=== PATIENT | female | born 1990 | race Caucasian/White ===

== ENCOUNTER 2022-10-10 21:25 | Emergency (ER) | payer BC, OTHER, SELFPAY ==
[2022-10-10 21:33] VITALS: BP 102/64; PULSE 70; RESP 16; TEMP 36.8; O2SAT 98; BMI 24.6
[2022-10-10 22:13] LABS: Bilirubin Urine NEGATIVE (NEGATIVE); Blood Urine NEGATIVE (NEGATIVE); Clarity Urine CLEAR (CLEAR); Color Urine YELLOW (YELLOW); Glucose Urine UA NEGATIVE (NEGATIVE); Ketones Urine NEGATIVE (NEGATIVE); Leukocyte Esterase Urine TRACE (NEGATIVE); Nitrite Urine POSITIVE (NEGATIVE); Protein Urine TRACE mg/dL (NEG/TRACE); Specific Gravity Urine 1.025 (1.005-1.025); pH Urine 6.5 (5.0-9.0)
[2022-10-10 22:19] LABS: Internal Control Within Normal Limits; Strep A Antigen Screen Negative
[2022-10-10 22:20] LABS: Urine Microscopic Indicated YES
[2022-10-10 22:24] LABS: Bacteria Urine SMALL #/HPF (NONE SEEN); Cast Seen? NONE SEEN #/LPF (NONE SEEN); Crystals Seen? None Seen #/HPF (None Seen); Mucus Urine TRACE (NONE SEEN); Squamous Epithelial Cell Urine FEW #/LPF (NONE/RARE); Urine Culture Indicated YES
--- NOTE | 2022-10-10 22:40 | ED_ITS ---
HPI - Female Genitourinary General Chief complaint: Urogenital-Female Stated complaint: MOUTH SORES, UTI Time Seen by Provider: 10/10/22 21:51 Source: patient Mode of arrival: walk-in History of Present Illness HPI Narrative: the patient presented with two main issues that she have this rash in her mouth mostly of the tongue and the back of the mouth is pink good turgor is not associated with any nausea vomiting but she was treated prior with a local numbing medication that did not help the rash go away The patient denies any fever chills or any other concerns she also have some frequency of urination for the last one week she had a diagnosis of urinary tract infection ohms couple weeks ago when she was treated with Keflex and she got better The patient denies any risk factors for STD but she would like her urine to be sent for check Review of systems otherwise negative Related Data Previous Rx's Medication Instructions Recorded nystatin 100,000 unit/mL oral 400,000 unit (4 mL) buccal QID 14 10/10/22 suspension days #224 mL sulfamethoxazole 800 1 tab PO BID 5 days #10 tabs 10/10/22 mg-trimethoprim 160 mg tablet (Bactrim DS) Allergies Allergy/AdvReac Type Severity Reaction Status Date / Time No Known Drug Allergies Allergy Verified 10/10/22 21:32 Review of Systems ROS Status of ROS 10 or more systems reviewed and unremarkable except as noted in history and below Exam Narrative Exam Narrative: Nurses notes and vital signs reviewed and patient is not hypoxic. General: Well-appearing and in no apparent distress. Skin: Warm, dry, no pallor noted. No rash. Head: Normocephalic, atraumatic. Neck: Supple, non-tender. Eye: Pupils are equal, round and EOMI. No scleral icterus. Ears, Nose, Mouth, and Throat: TM are clear, no nasal mucosal hypertrophy. Oral mucosa is moist, no posterior oropharynx erythema, uvula is mid-line mouth examination showed that the patient have a sensation of the tongue mildly erythema as well at the rest of the mouth but there is no specific rash Cardiovascular: Regular Rate and Rhythm without murmur, gallop or rub. Respiratory: No accessory muscle use or respiratory distress. Lungs are clear to auscultation, no wheezing, rales or rhonchi Chest Wall: no tenderness Back: No midline thoracic or lumbar vertebral tenderness. No CVA tenderness Musculoskeletal: normal ROM, no calf or popliteal tenderness, no lower extremity edema/swelling GI: Abdomen is soft, non-distended. Normal bowel sounds. No masses appreciated. No tenderness to palpation. No rebound, guarding, or rigidity noted. Neurological: A&O x4. No cranial nerve dysfunction observed. No truncal ataxia. Moves all extremities. Sensation intact. Psychiatric: Cooperative and interactive. Normal mood and affect. Constitutional Vital Signs - 24 hr 10/10/22 21:33 Temperature 98.3 F Pulse Rate [Monitor] 70 Respiratory Rate 16 Blood Pressure [Left Arm] 102/64 Pulse Oximetry 98 Oxygen Delivery Method Room Air Course Vital Signs Vital signs: Vital Signs Temperature 98.3 F 10/10/22 21:33 Pulse Rate 70 10/10/22 21:33 Respiratory Rate 16 10/10/22 21:33 Blood Pressure 102/64 10/10/22 21:33 Pulse Oximetry 98 10/10/22 21:33 Oxygen Delivery Method Room Air 10/10/22 21:33 Temperature 98.3 F 10/10/22 21:33 Pulse Rate 70 10/10/22 21:33 Respiratory Rate 16 10/10/22 21:33 Blood Pressure 102/64 10/10/22 21:33 Pulse Oximetry 98 10/10/22 21:33 Oxygen Delivery Method Room Air 10/10/22 21:33 MDM - Female Genitourinary MDM Narrative Medical decision making narrative: urine was sent for chlamydia and gonorrhea testing and the test is negative the patient urine analysis is positive for urinary tract infection The patient will be treated with Bactrim she also had thrush in her mouth that will be treated with nystatin The patient was instructed about the importance of follow-up with her primary care doctor for further evaluation of the rash and further testing in case keep happening The patient is to followup with primary care physician in next 2-3 days or to return to the emergency department should any of the signs or symptoms worsen or new symptoms develop. The patient agrees with the following Diagnosis and Treatment plan and the patient will be discharged home. Lab Data Labs: Lab Results 10/10/22 10/10/22 10/10/22 Range/Units 21:38 22:00 22:20 Urine Color Yellow (YELLOW) Urine Clarity Clear (CLEAR) Urine pH 6.5 (5.0-9.0) Ur Specific [place] 1.025 (1.005-1.025) Urine Protein Trace (NEG/TRACE) mg/dL Urine Glucose (UA) Negative (NEGATIVE) mg/dL Urine Ketones Negative (NEGATIVE) mg/dL Urine Occult Blood Negative (NEGATIVE) Urine Nitrite Positive A (NEGATIVE) Urine Bilirubin Negative (NEGATIVE) Urine Urobilinogen 2.0 A (0.2-1.0) EU/dL Ur Leukocyte Esterase Trace A (NEGATIVE) Urine RBC 2-5 A (0-2) #/HPF Urine WBC 5-10 A (NONE SEEN) #/HPF Ur Squamous Epith Cells Few A (NONE/RARE) #/LPF Urine Crystals None seen (None Seen) #/HPF Urine Bacteria Small A (NONE SEEN) #/HPF Urine Casts None seen (NONE SEEN) #/LPF Urine Mucus Trace A (NONE SEEN) Ur Culture Indicated? Yes Urine HCG, Qual (NEGATIVE) Streptococcus Screen Negative 10/10/22 Range/Units 22:40 Urine Color (YELLOW) Urine Clarity (CLEAR) Urine pH (5.0-9.0) Ur Specific [place] (1.005-1.025) Urine Protein (NEG/TRACE) mg/dL Urine Glucose (UA) (NEGATIVE) mg/dL Urine Ketones (NEGATIVE) mg/dL Urine Occult Blood (NEGATIVE) Urine Nitrite (NEGATIVE) Urine Bilirubin (NEGATIVE) Urine Urobilinogen (0.2-1.0) EU/dL Ur Leukocyte Esterase (NEGATIVE) Urine RBC (0-2) #/HPF Urine WBC (NONE SEEN) #/HPF Ur Squamous Epith Cells (NONE/RARE) #/LPF Urine Crystals (None Seen) #/HPF Urine Bacteria (NONE SEEN) #/HPF Urine Casts (NONE SEEN) #/LPF Urine Mucus (NONE SEEN) Ur Culture Indicated? Urine HCG, Qual Negative (NEGATIVE) Streptococcus Screen Discharge Plan Discharge Chief Complaint: Urogenital-Female Clinical Impression: UTI (urinary tract infection), Oral thrush Patient Disposition: Home, Self-Care Time of Disposition Decision: 23:02 Mode of Transportation: Private Vehicle Prescriptions / Home Meds: New nystatin 100,000 unit/mL suspension 400,000 unit buccal QID 14 Days Qty: 224 0RF Rx Instructions: administer 1/2 of dose in each side of the mouth sulfamethoxazole-trimethoprim [Bactrim DS] 800-160 mg tablet 1 tab PO BID 5 Days Qty: 10 0RF Instructions: Urinary Tract Infection in Women (ED), Oral Candidiasis (ED) Stand Alone Forms: Portal Instructions Referrals: [facility] [Primary Care Provider] - 1 week
[2022-10-10] MEDS: SULFAMETHOXAZOLE/TRIMETHOPRIM 800-160 MG TABLET 1 TAB PO (23:07)
[2022-10-10 23:14] LABS: HCG Qualitative Urine* NEGATIVE (NEGATIVE)
[2022-10-12 22:08] LABS: Neisseria gonorrhoeae, NAA Negative (Negative)
== END 2022-10-10 23:52 | disposition home or self-care (01) ==
PROVIDERS: Emergency Provider Emergency Medicine
DX: N39.0 Urinary tract infection, site not specified (principal); B37.0 Candidal stomatitis
CPT/HCPCS: 81003; 81015; 84703; 87086; 87150; 87186; 87491; 87591; 87880; 99283

== ENCOUNTER 2022-11-09 22:04 | Emergency (ER) | payer BC, OTHER, SELFPAY ==
[2022-11-09] VITALS (7 sets, daily range): BP systolic 94–96; BP diastolic 51–58; PULSE 64–78; RESP 11–23; TEMP 37.1; O2SAT 97–98; BMI 29.2
--- NOTE | 2022-11-09 22:10 | ECG_ITS ---
The [facility] Test Date: 2022-11-09 Pat Name: SANGEETA MYLES Department: Room: - Gender: Female Social Worker Aide: : 1990 Requested By: [id number] Order Number: [id number] Reading MD: YASMEEN PLASCENCIA Measurements Intervals Waddy Rate: 72 P: 72 [place]: 176 QRS: 60 QRSD: 92 T: 47 QT: 410 QTc: 434 Interpretive Statements 1100 Sinus rhythm 9110 normal ECG No previous ECG available for comparison Electronically Signed On 11-10-2022 7:00:55 EDT by YASMEEN PLASCENCIA
--- NOTE | 2022-11-09 22:18 | PC.NURSE ---
Pt presents to ER from a [facility] in [place] via EMS Pt states she had just returned home from a NA meeting and was talking to a friend, the next thing she remembers is waking up to being narcanned Per squad report pt was given 8mg nasal Narcan Squad stated pt was A&O on arrival walking around, did not show any signs of being under the influence Pt A&O on arrival Pt states she has been getting dizzy on and off frequently over the last week pt states she just obtained her 60 days clean and denies the use of anything Pt tried to refuse treatment by EMS but the [facility] demanded her to come
--- NOTE | 2022-11-09 22:59 | XR_ITS ---
The [address] [address] Patient Name: SANGEETA MYLES MRN: [id number] date: 1990 Sex: F Assigned Patient Location: ER Current Patient Location: ER Accession/Order Number: [id number] Exam Date: 11/09/2022 23:20 Report Date: 11/09/2022 23:36 At the request of: MACHELLE MARKER Procedure: XR wrist RT 2V EXAM: XR wrist RT 2V HISTORY: fall with posterior medial wrist pain. COMPARISON: None. TECHNIQUE: 2 views. FINDINGS: No evidence of fracture or dislocation. No articular or periarticular erosive changes. XR/XR wrist RT 2V IMPRESSION: Unremarkable right wrist. Electronically authenticated by: PB MCKINNON Date: 11/09/2022 23:36
[2022-11-09 23:00] LABS: Amphetamine Screen Urine NEGATIVE (NEGATIVE); Barbiturates Screen Urine NEGATIVE (NEGATIVE); Benzodiazepines Screen Urine NEGATIVE (NEGATIVE); Buprenorphine Screen Urine NEGATIVE (NEGATIVE); Cannabinoid Screen Urine NEGATIVE (NEGATIVE); Cocaine Screen Urine NEGATIVE (NEGATIVE); Methadone Screen Urine NEGATIVE (NEGATIVE); Methamphetamines Screen Urine NEGATIVE (NEGATIVE); Opiate Screen Urine NEGATIVE (NEGATIVE); Oxycodone Screen Urine NEGATIVE (NEGATIVE); Phencyclidine Screen Urine NEGATIVE (NEGATIVE); Tricyclic Antidepressant Urine NEGATIVE (NEGATIVE)
[2022-11-09 23:07] LABS: Bilirubin Urine SMALL (NEGATIVE); Blood Urine NEGATIVE (NEGATIVE); Color Urine DK. YELLOW (YELLOW); Glucose Urine UA NEGATIVE (NEGATIVE); Ketones Urine NEGATIVE (NEGATIVE); Leukocyte Esterase Urine TRACE (NEGATIVE); Nitrite Urine POSITIVE (NEGATIVE); Protein Urine TRACE mg/dL (NEG/TRACE); Specific Gravity Urine >=1.030 (1.005-1.025)
[2022-11-09 23:10] LABS: Clarity Urine SLIGHTLY CLOUDY (CLEAR)
[2022-11-09 23:15] LABS: Bacteria Urine LARGE #/HPF (NONE SEEN); Cast Seen? NONE SEEN #/LPF (NONE SEEN); Crystals Seen? None Seen #/HPF (None Seen); Mucus Urine NONE SEEN (NONE SEEN); RBC Urine 0-2 #/HPF (0-2); Squamous Epithelial Cell Urine FEW #/LPF (NONE/RARE); Urine Culture Indicated YES
[2022-11-09 23:21] LABS: Hematocrit 31.6 % (36.0-48.0); Hemoglobin 10.3 g/dL (12.0-16.0); Immature Granulocytes Abs Auto 0.01 10^3/uL (0.00-0.03); Immature Granulocytes Pct Auto 0.3 % (0.0-0.5); Lymphocytes Absolute Auto 1.2 10^3/uL (1.2-3.8); Lymphocytes Percent Auto 40.4 % (20.5-60.0); Mean Corpuscular HGB Conc 32.6 g/dL (29.9-35.2); Mean Corpuscular Hemoglobin 36.4 pg (26.7-34.0); Mean Platelet Volume 9.3 fL (9.5-13.5); Monocytes Absolute Auto 0.3 10^3/uL (0.3-0.8); Monocytes Percent Auto 9.9 % (1.7-12.0); Neutrophils Absolute Auto 1.5 10^3/uL (1.4-6.5); Neutrophils Percent Auto 49.4 % (43.0-75.0); Platelet Count 171 10^3/uL (150-450); Red Blood Count 2.83 10^6/uL (4.20-5.40); Red Cell Distribution Width 17.2 % (11.0-15.0)
[2022-11-09 23:23] LABS: Mean Corpuscular Volume 111.7 fL (81.0-99.0)
[2022-11-09] MEDS: 0.9 % SODIUM CHLORIDE 1,000 ML 1000 ML IV (23:31)
[2022-11-09 23:35] LABS: Anion Gap 7.2; BUN Creatinine Ratio 17.1; Calcium 9.3 mg/dL (8.5-10.1); Carbon Dioxide 31.7 mmol/L (21.0-32.0); Chloride 107 mmol/L (98-107); Estimated GFR (African America >60 (>=60); Estimated GFR (Non-African Ame >60 (>=60); Glucose 99 mg/dL (74-106); Potassium 3.9 mmol/L (3.5-5.1); Sodium 142 mmol/L (136-145); Troponin I High Sensitivity 14.6 pg/mL (4.0-51.3)
[2022-11-10] LABS: D Dimer 0.29 mg/L FEU (<=0.59)
[2022-11-10] MEDS: ACETAMINOPHEN 325 MG TABLET 650 MG PO
--- NOTE | 2022-11-10 00:25 | ED_ITS ---
HPI - Syncope General Chief Complaint: Syncope Stated Complaint: OVERDOSE Time Seen by Provider: 11/09/22 22:14 Source: patient Mode of arrival: ambulance History of Present Illness HPI narrative: This 32-year-old female with a history of neurocardiogenic syncope Brought to the emergency department from the [facility] where she is currently in rehab. The patient states that she had a syncopal event today. She went to an NA meeting earlier in the evening. She states that after the NA meeting she wanted ice cream and had a Blizzard. She then went back to the facility where she is in rehab and was talking to her roommate About pizza and laundry when she apparently passed out. She states that she remembers passing out but could not speak. The human resources project manager was called to the area and she was given 8 mg of intranasal Narcan. EMS was called to bring her to the hospital but she initially refused to come to the hospital. She was then told if she was not evaluated that she would be kicked out of the facility. She states she has been clean for 61 days at this point. She requests that a urine tox be done so that she can prove that she is not currently using any drugs. She denies any chest pain or shortness of breath. She has no focal neurologic deficits. She states she thinks that she fell onto her right wrist because she does have some discomfort at her right wrist. She denies any nausea or vomiting. She states that she has been having episodes of dizziness and lightheadedness for the past several days and has been urinating frequently. She denies the possibility of . She has no headache, neck pain or abdominal pain. She did not soil herself when she fell. She did not bite her tongue. She has no history of seizures. Related Data Home Medications Medication Instructions Recorded Confirmed bupropion HCl 300 mg 24 hr tablet, 300 mg PO DAILY 11/09/22 11/09/22 extended release ibuprofen 800 mg tablet mg 11/09/22 trazodone 100 mg tablet mg 11/09/22 Previous Rx's Medication Instructions Recorded nystatin 100,000 unit/mL oral 400,000 unit (4 mL) buccal QID 14 10/10/22 suspension days #224 mL sulfamethoxazole 800 1 tab PO BID 5 days #10 tabs 10/10/22 mg-trimethoprim 160 mg tablet (Bactrim DS) Allergies Allergy/AdvReac Type Severity Reaction Status Date / Time No Known Drug Allergies Allergy Verified 10/10/22 21:32 Review of Systems ROS Status of ROS 10 or more systems reviewed and unremarkable except as noted in history and below [facility] Social History Smoking status: Current every day smoker Exam Narrative Exam Narrative: Nurses note and vital signs reviewed and patient is not hypoxic. General: The patient appears well and in no apparent distress. Patient is resting comfortably on cart. GCS 15 Skin: Warm, dry, no pallor noted. There is no rash noted. Head: Normocephalic, atraumatic, no scalp tenderness, negative Harley and Raccon sign Eye: Normal conjunctiva, no drainage, EOMI. PERRL, vision grossly intact, pupils are equal and reactive Ears, Nose, Mouth, and Throat: oral mucosa is moist. Nares patent. Mouth without vesicles. Ear canals patent. No oral injury or tongue contusion Cardiovascular: Regular Rate and Rhythm S1S2, no murmur, rubs or gallops, pulses are brisk and equal bilaterally Respiratory: Patient is in no distress, no accessory muscle use, lungs are clear to auscultation, no wheezing, rales or rhonchi Back: non-tender, no CVA tenderness bilaterally to percussion. GI: Normal bowel sounds, no tenderness to palpation, no masses appreciated. No rebound, guarding, or rigidity noted. Musculoskeletal: The patient has no lower extremity tenderness or swelling, she has mild tenderness without bony deformity of the right wrist, no elbow or shoulder tenderness, able to approximate thumb and all fingers Neurological: A&O x4, normal speech Psychiatric: Cooperative Constitutional Vital Signs, click to edit/add: Last Vital Signs Temp 98.7 F 11/09/22 22:07 Pulse 65 11/09/22 22:57 Resp 22 11/09/22 22:57 BP 94/51 L 11/09/22 23:35 Pulse Ox 98 11/09/22 22:25 O2 Del Method Room Air 11/09/22 22:25 Course Vital Signs Vital signs: Vital Signs Temperature 98.7 F 11/09/22 22:07 Pulse Rate 66 11/09/22 22:07 Respiratory Rate 11 L 11/09/22 22:07 Blood Pressure 94/54 L 11/09/22 22:07 Pulse Oximetry 97 11/09/22 22:07 Oxygen Delivery Method Room Air 11/09/22 22:07 Temperature 98.7 F 11/09/22 22:07 Pulse Rate 65 11/09/22 22:57 Respiratory Rate 22 11/09/22 22:57 Blood Pressure 94/51 L 11/09/22 23:35 Pulse Oximetry 98 11/09/22 22:25 Oxygen Delivery Method Room Air 11/09/22 22:25 MDM - Syncope Medical Records Medical records narrative: This 32-year-old female with a history of neurocardiogenic syncope is brought emergency department from the [facility] where she is currently in rehab. 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 Tonight she had a syncopal event after going to a Narcotics Anonymous meeting. She was given 8 mg of Narcan. She denies that she has been using any drugs. She was told that she would either have to be evaluated emergency department or be kicked out of the rehab facility. She agreed to come to be evaluated. Upon arrival she was taken to room 11. GCS is 15. An EKG was a sinus rhythm at 72 beats for minute. An IV was established and she was given IV fluids and ibuprofen. She complains only of some discomfort in her right wrist where she thinks she fell onto her right wrist. X-ray of the right wrist is negative for fracture. Routine labs are reviewed. She has a low white count at 3 and a low hemoglobin at 10.3. This is likely chronic in nature. She has normal electrolytes. She has a negative d- dimer and normal troponin. Urine is positive for nitrites, white blood cells and bacteria. Urine tox was negative for any positive drug use. The results of her labs were discussed with her. She has called for a ride home. Initially I intended to give her an IV dose of Rocephin and then treat her with Keflex but she has a ride coming and wishes to be discharged home at this time. She was recently on Bactrim for urinary tract infection and does not appear to have been that effective. She will be given a dose of Cipro in the emergency department and discharged home with a prescription for Cipro and ibuprofen to use for the next week. She was encouraged to drink plenty of fluids and given a copy of her labs prove that her urine toxicology was negative. I did place a 4 inch J Carlos wrap onto her right distal forearm and wrist for comfort for the right wrist injury she sustained when she had her syncopal event. Lab Data Lab results narrative: Pt has a low white blood cell count at 3.0. Hemoglobin is mildly low at 10.3. The remainder of her electrolytes are normal. Troponin and d-dimer are normal. Urine is positive for infection with positive nitrites, bacteria leukocyte esterase and white blood cells. Utox is negative Labs: Lab Results 11/09/22 11/09/22 Range/Units 20:25 23:09 WBC 3.0 L (4.0-11.0) 10^3/uL RBC 2.83 L (4.20-5.40) 10^6/uL Hgb 10.3 L (12.0-16.0) g/dL Hct 31.6 L (36.0-48.0) % MCV 111.7 H (81.0-99.0) fL MCH 36.4 H (26.7-34.0) pg MCHC 32.6 (29.9-35.2) g/dL RDW 17.2 H (11.0-15.0) % Plt Count 171 (150-450) 10^3/uL MPV 9.3 L (9.5-13.5) fL Neut % (Auto) 49.4 (43.0-75.0) % Lymph % (Auto) 40.4 (20.5-60.0) % [place] % (Auto) 9.9 (1.7-12.0) % Eos % (Auto) 0.0 L (0.9-7.0) % Baso % (Auto) 0.0 L (0.2-2.0) % Neut # (Auto) 1.5 (1.4-6.5) 10^3/uL Lymph # (Auto) 1.2 (1.2-3.8) 10^3/uL [place] # (Auto) 0.3 (0.3-0.8) 10^3/uL Eos # (Auto) 0.0 (0.0-0.7) 10^3/uL Baso # (Auto) 0.0 (0.0-0.1) 10^3/uL Abs Immat Gran (auto) 0.01 (0.00-0.03) 10^3/uL Imm/Tot Granulo (auto) 0.3 (0.0-0.5) % D-Dimer 0.29 (<=0.59) mg/L FEU Sodium 142 (136-145) mmol/L Potassium 3.9 (3.5-5.1) mmol/L Chloride 107 (98-107) mmol/L Carbon Dioxide 31.7 (21.0-32.0) mmol/L Anion Gap 7.2 BUN 13.0 (7.0-18.0) mg/dL Creatinine 0.76 (0.55-1.02) mg/dL Est GFR ( Amer) >60 (>=60) Est GFR (Non-Af Amer) >60 (>=60) BUN/Creatinine Ratio 17.1 Glucose 99 (74-106) mg/dL Calcium 9.3 (8.5-10.1) mg/dL Troponin I High Sens 14.6 (4.0-51.3) pg/mL Urine Color Dk. yellow (YELLOW) Urine Clarity Slightly cloudy A (CLEAR) Urine pH 6.0 (5.0-9.0) Ur Specific [place] >=1.030 A (1.005-1.025) Urine Protein Trace (NEG/TRACE) mg/dL Urine Glucose (UA) Negative (NEGATIVE) mg/dL Urine Ketones Negative (NEGATIVE) mg/dL Urine Occult Blood Negative (NEGATIVE) Urine Nitrite Positive A (NEGATIVE) Urine Bilirubin Small A (NEGATIVE) Urine Urobilinogen 4.0 A (0.2-1.0) EU/dL Ur Leukocyte Esterase Trace A (NEGATIVE) Urine RBC 0-2 (0-2) #/HPF Urine WBC 10-20 A (NONE SEEN) #/HPF Ur Squamous Epith Cells Few A (NONE/RARE) #/LPF Urine Crystals None seen (None Seen) #/HPF Urine Bacteria Large A (NONE SEEN) #/HPF Urine Casts None seen (NONE SEEN) #/LPF Urine Mucus None seen (NONE SEEN) Ur Culture Indicated? Yes Urine Opiates Screen Negative (NEGATIVE) Ur Buprenorphine Scrn Negative (NEGATIVE) Ur Oxycodone Screen Negative (NEGATIVE) Urine Methadone Screen Negative (NEGATIVE) Ur Propoxyphene Screen Negative (NEGATIVE) Ur Barbiturates Screen Negative (NEGATIVE) U Tricyclic Antidepress Negative (NEGATIVE) Ur Phencyclidine Scrn Negative (NEGATIVE) Ur Amphetamines Screen Negative (NEGATIVE) U Methamphetamines Scrn Negative (NEGATIVE) U Benzodiazepines Scrn Negative (NEGATIVE) Urine Cocaine Screen Negative (NEGATIVE) U Cannabinoids Screen Negative (NEGATIVE) ECG Data Attestation: I personally reviewed and interpreted this ECG as follows: (Normal sinus rhythm at 72 beats for minute, normal axis, normal intervals, no acute ST segment elevation or T-wave inversion) Discharge Plan Discharge Chief Complaint: Syncope Clinical Impression: UTI (urinary tract infection), Syncope, Sprain of right wrist Patient Disposition: Home, Self-Care Time of Disposition Decision: 00:27 Condition: Good Prescriptions / Home Meds: No Action nystatin 100,000 unit/mL suspension 400,000 unit buccal QID 14 Days Qty: 224 0RF Rx Instructions: administer 1/2 of dose in each side of the mouth sulfamethoxazole-trimethoprim [Bactrim DS] 800-160 mg tablet 1 tab PO BID 5 Days Qty: 10 0RF bupropion HCl 300 mg tablet extended release 24 hr 300 mg PO DAILY ibuprofen 800 mg tablet trazodone 100 mg tablet Instructions: Urinary Tract Infection in Women (ED), Syncope (ED), Wrist Sprain (ED) Stand Alone Forms: Portal Instructions Referrals: Physician,Non-Staff, MD [Primary Care Provider] - 1 week Discharge Date/Time: 11/10/22 00:49
== END 2022-11-10 00:49 | disposition home or self-care (01) ==
PROVIDERS: Emergency Provider Emergency Medicine
DX: N39.0 Urinary tract infection, site not specified (principal); R55 Syncope and collapse; S63.501A Unspecified sprain of right wrist, initial encounter; F17.210 Nicotine dependence, cigarettes, uncomplicated; Z87.440 Personal history of urinary (tract) infections; F19.11 Other psychoactive substance abuse, in remission; W19.XXXA Unspecified fall, initial encounter
CPT/HCPCS: 36415; 73100; 80048; 80307; 81001; 84484; 85025; 85378; 87086; 87150; 87186; 93005; 99285

== ENCOUNTER 2023-01-17 12:54 | Emergency (ER) | payer BC, OTHER, SELFPAY ==
[2023-01-17 12:59] VITALS: BP 103/68; PULSE 84; RESP 18; TEMP 36.9; O2SAT 99; BMI 30.5
--- NOTE | 2023-01-17 13:03 | XR_ITS ---
The [address] [address] Patient Name: SANGEETA MYLES MRN: [id number] date: 1990 Sex: F Assigned Patient Location: ER Current Patient Location: ER Accession/Order Number: [id number] Exam Date: 01/17/2023 13:13 Report Date: 01/17/2023 13:33 At the request of: PAUL PLASENCIA Procedure: XR foot LT min 3V STUDY: XR foot LT min 3V, [id number] HISTORY: injury COMPARISON: None FINDINGS: Transverse oriented fracture of the proximal base of the left fifth metatarsal which demonstrates approximately 1 mm of distraction. Fracture location is most compatible with an avulsion type fracture. No other acute fracture. No dislocation or suspicious osseous lesion. A small accessory navicular is present. XR/XR foot LT min 3V IMPRESSION: Minimally distracted avulsion-type fracture of the fifth metatarsal base. Electronically authenticated by: DMITRY WRIGHT Date: 01/17/2023 13:33
--- NOTE | 2023-01-17 14:12 | ED.LOWEXI1 ---
HPI - Extremity Injury (Lower) General Chief Complaint: Extremity Injury, Lower Stated Complaint: INJURED L FOOT Time Seen by Provider: 01/17/23 14:03 Source: patient Mode of arrival: Wheelchair History of Present Illness HPI Narrative: patient is a 33-year-old female who presents to the emergency department for the evaluation of injury to the left foot. She states she tripped when she missed a stair and her home and twisted the left foot. She reports pain over the left 5th metatarsal. She had no other associated injuries. No medications taken prior to arrival. She is not concerned for . Related Data Home Medications Medication Instructions Recorded Confirmed bupropion HCl 300 mg 24 hr tablet, 300 mg PO DAILY 11/09/22 11/09/22 extended release ibuprofen 800 mg tablet mg 11/09/22 trazodone 100 mg tablet mg 11/09/22 Previous Rx's Medication Instructions Recorded nystatin 100,000 unit/mL oral 400,000 unit (4 mL) buccal QID 14 10/10/22 suspension days #224 mL sulfamethoxazole 800 1 tab PO BID 5 days #10 tabs 10/10/22 mg-trimethoprim 160 mg tablet (Bactrim DS) ketorolac 10 mg tablet 10 mg PO TID PRN pain #12 tabs 01/17/23 Allergies Allergy/AdvReac Type Severity Reaction Status Date / Time No Known Drug Allergies Allergy Verified 10/10/22 21:32 Review of Systems ROS Constitutional Denies: fever or chills Ears, nose, mouth, and throat Denies: throat pain or neck pain Cardiovascular Denies: chest pain Respiratory Denies: shortness of breath or cough Gastrointestinal Denies: nausea or vomiting Musculoskeletal Reports: extremity pain; Denies: back pain or neck pain Integumentary/Breast Denies: rash Neurological Denies: headache Hematologic/Lymphatic Denies: easy bruising Allergic/Immunologic Denies: hives PFSH [facility] Social History Smoking status: Current every day smoker Exam Narrative Exam Narrative: Gen.: Awake, alert, in no distress Head: Normocephalic, atraumatic ENT: Moist mucous membranes Respiratory: No respiratory distress Extremities: Moves extremities equally, tenderness and mild edema noted over the base of the left 5th metatarsal. Normal flexion and extension of the toes of the left foot, 2+ left DP pulse. No bony tenderness of the left ankle or tibia. Psych: Normal mood and affect Neuro: No focal neuro deficit Skin: Warm, dry, intact Constitutional Vital Signs, click to edit/add: Last Vital Signs Temp 98.4 F 01/17/23 12:59 Pulse 84 01/17/23 12:59 Resp 18 01/17/23 12:59 BP 103/68 01/17/23 12:59 Pulse Ox 99 01/17/23 12:59 Course Vital Signs Vital signs: Vital Signs Temperature 98.4 F 01/17/23 12:59 Pulse Rate 84 01/17/23 12:59 Respiratory Rate 18 01/17/23 12:59 Blood Pressure 103/68 01/17/23 12:59 Pulse Oximetry 99 01/17/23 12:59 Temperature 98.4 F 01/17/23 12:59 Pulse Rate 84 01/17/23 12:59 Respiratory Rate 18 01/17/23 12:59 Blood Pressure 103/68 01/17/23 12:59 Pulse Oximetry 99 01/17/23 12:59 MDM - Extremity Injury (Lower) MDM Narrative Medical decision making narrative: x-rays reviewed by the radiologist with avulsion of the left 5th metatarsal. Patient placed in J Carlos wrap and postop shoe and remains neurovascularly intact. Crutches given for comfort. Patient requests not to be placed on narcotics as she has a history of narcotic addiction and she is given Toradol with podiatry follow-up. Return to the Emergency Room if symptoms change or worsen. work note provided, rest, ice, elevate. Medical Records Attestation: I reviewed the patient's medical records. Lab Data Attestation: I reviewed the patient's lab results. Imaging Data XR foot: Attestation: I have reviewed the pertinent imaging results. Radiologist's impression: Procedure: XR foot LT min 3V STUDY: XR foot LT min 3V, [id number] HISTORY: injury COMPARISON: None FINDINGS: Transverse oriented fracture of the proximal base of the left fifth metatarsal which demonstrates approximately 1 mm of distraction. Fracture location is most compatible with an avulsion type fracture. No other acute fracture. No dislocation or suspicious osseous lesion. A small accessory navicular is present. IMPRESSION: Minimally distracted avulsion-type fracture of the fifth metatarsal base. Electronically authenticated by: DMITRY WRIGHT Date: 01/17/2023 13:33 Discharge Plan Discharge Chief Complaint: Extremity Injury, Lower Clinical Impression: Closed fracture of fifth metatarsal bone of left foot Patient Disposition: Home, Self-Care Time of Disposition Decision: 14:09 Condition: Good Prescriptions / Home Meds: New ketorolac 10 mg tablet 10 mg PO TID PRN (Reason: pain) Qty: 12 0RF No Action nystatin 100,000 unit/mL suspension 400,000 unit buccal QID 14 Days Qty: 224 0RF Rx Instructions: administer 1/2 of dose in each side of the mouth sulfamethoxazole-trimethoprim [Bactrim DS] 800-160 mg tablet 1 tab PO BID 5 Days Qty: 10 0RF bupropion HCl 300 mg tablet extended release 24 hr 300 mg PO DAILY ibuprofen 800 mg tablet trazodone 100 mg tablet Instructions: Foot Fracture in Adults (ED) Stand Alone Forms: Portal Instructions Referrals: Physician,Non-Staff, MD [Primary Care Provider] - 1 week Pasha Gee DPM [Physician] - As soon as possible
== END 2023-01-17 14:24 | disposition home or self-care (01) ==
PROVIDERS: Emergency Provider Emergency Medicine
DX: S92.352A Displaced fracture of fifth metatarsal bone, left foot, initial encounter for closed fracture (principal); W18.49XA Other slipping, tripping and stumbling without falling, initial encounter; Z79.899 Other long term (current) drug therapy; F17.210 Nicotine dependence, cigarettes, uncomplicated; F11.21 Opioid dependence, in remission
CPT/HCPCS: 73630; 99283

== ENCOUNTER 2023-01-27 08:25 | Emergency (ER) | payer BC, OTHER, SELFPAY ==
[2023-01-27 08:30] VITALS: BP 118/74; PULSE 81; RESP 16; TEMP 36.9; O2SAT 96; BMI 30.1
--- NOTE | 2023-01-27 08:35 | XR_ITS ---
The [address] [id number] Patient Name: SANGEETA MYLES MRN: [id number] date: 1990 Sex: F Assigned Patient Location: ER Current Patient Location: ED.MAIN Accession/Order Number: [id number] Exam Date: 01/27/2023 08:45 Report Date: 01/27/2023 09:03 At the request of: PAUL PLASENCIA Procedure: XR chest 1V EXAM: Chest x-ray HISTORY: . cough . COMPARISON: None. TECHNIQUE: Single view of the chest FINDINGS: Heart and vascularity are unremarkable. Lungs are free of focal infiltrates. Grossly no acute bony abnormality is appreciated. XR/XR chest 1V IMPRESSION: No acute heart or lung disease identified. Electronically authenticated by: SUZY SCRUGGS Date: 01/27/2023 09:03
--- NOTE | 2023-01-27 08:36 | ED.GENADUL1 ---
HPI - General Adult General Chief complaint: Headache Stated complaint: SPLITTING HEADACHE/CONGESTION/NAUSEA Time Seen by Provider: 01/27/23 08:28 Source: patient and family Mode of arrival: walk-in Limitations: no limitations History of Present Illness HPI narrative: 33-year-old female presents for cough. She's had it for two weeks. Initially it was productive but it isn't any longer. She has an inhaler at home. No fever or hemoptysis. She had fallen a few weeks ago and sustained an abrasion to the palm of her right hand. Related Data Home Medications Medication Instructions Recorded Confirmed bupropion HCl 300 mg 24 hr tablet, 300 mg PO DAILY 11/09/22 11/09/22 extended release ibuprofen 800 mg tablet mg 11/09/22 trazodone 100 mg tablet mg 11/09/22 Previous Rx's Medication Instructions Recorded nystatin 100,000 unit/mL oral 400,000 unit (4 mL) buccal QID 14 10/10/22 suspension days #224 mL sulfamethoxazole 800 1 tab PO BID 5 days #10 tabs 10/10/22 mg-trimethoprim 160 mg tablet (Bactrim DS) ketorolac 10 mg tablet 10 mg PO TID PRN pain #12 tabs 01/17/23 benzonatate 100 mg capsule 100 mg PO TID PRN cough #20 caps 01/27/23 doxycycline hyclate 100 mg capsule 100 mg PO BID 10 days #20 caps 01/27/23 Allergies Allergy/AdvReac Type Severity Reaction Status Date / Time No Known Drug Allergies Allergy Verified 01/27/23 08:35 Review of Systems ROS Narrative A ten point review of systems is negative except as noted above. PFSH PFSH Social History Smoking status: Current every day smoker Exam Narrative Exam Narrative: Nurses note and vital signs reviewed and patient is not hypoxic. General: The patient appears well and in no apparent distress. Patient is resting comfortably on cart. Skin: Warm, dry, no pallor noted. There is no rash noted. Head: Normocephalic, atraumatic Eye: Normal conjunctiva, no drainage Ears, Nose, Mouth, and Throat: oral mucosa is moist. Nares patent. Cardiovascular: Regular Rate and Rhythm Respiratory: Patient is in no distress, no accessory muscle use, lungs are clear to auscultation, no wheezing, rales or rhonchi Back: non-tender GI: nontender Musculoskeletal: healing abrasion to the palm of the right hand proximally with no surrounding erythema. No drainage. Neurological: A&O, normal speech Psychiatric: Cooperative Constitutional Vital Signs, click to edit/add: Last Vital Signs Temp 98.4 F 01/27/23 08:30 Pulse 81 01/27/23 08:30 Resp 16 01/27/23 08:30 BP 118/74 01/27/23 08:30 Pulse Ox 96 01/27/23 08:30 O2 Del Method Room Air 01/27/23 08:30 Course Vital Signs Vital signs: Vital Signs Temperature 98.4 F 01/27/23 08:30 Pulse Rate 81 01/27/23 08:30 Respiratory Rate 16 01/27/23 08:30 Blood Pressure 118/74 01/27/23 08:30 Pulse Oximetry 96 01/27/23 08:30 Oxygen Delivery Method Room Air 01/27/23 08:30 Temperature 98.4 F 01/27/23 08:30 Pulse Rate 81 01/27/23 08:30 Respiratory Rate 16 01/27/23 08:30 Blood Pressure 118/74 01/27/23 08:30 Pulse Oximetry 96 01/27/23 08:30 Oxygen Delivery Method Room Air 01/27/23 08:30 Medical Decision Making MDM Narrative Medical decision making narrative: Covid test and chest x-ray are negative. She is prescribed doxycycline and Tessalon. Treatment diagnosis and follow-up were discussed with the patient. Differential Diagnosis Differential Diagnosis: Covid, pneumonia, upper respiratory infection Lab Data Lab results reviewed: Yes I reviewed the patient's lab results Labs: Lab Results 01/27/23 Range/Units 08:35 SARS-CoV-2 (PCR) Negative (NEGATIVE) Imaging Data Chest x-ray: Radiologist's impression: Procedure: XR chest 1V EXAM: Chest x-ray HISTORY: . cough . COMPARISON: None. TECHNIQUE: Single view of the chest FINDINGS: Heart and vascularity are unremarkable. Lungs are free of focal infiltrates. Grossly no acute bony abnormality is appreciated. IMPRESSION: No acute heart or lung disease identified. Electronically authenticated by: SUZY SCRUGGS Date: 01/27/2023 Discharge Plan Discharge Chief Complaint: Headache Clinical Impression: Acute upper respiratory infection Patient Disposition: Home, Self-Care Time of Disposition Decision: 09:16 Condition: Good Mode of Transportation: Private Vehicle Prescriptions / Home Meds: New doxycycline hyclate 100 mg capsule 100 mg PO BID 10 Days Qty: 20 0RF benzonatate 100 mg capsule 100 mg PO TID PRN (Reason: cough) Qty: 20 0RF No Action nystatin 100,000 unit/mL suspension 400,000 unit buccal QID 14 Days Qty: 224 0RF Rx Instructions: administer 1/2 of dose in each side of the mouth sulfamethoxazole-trimethoprim [Bactrim DS] 800-160 mg tablet 1 tab PO BID 5 Days Qty: 10 0RF bupropion HCl 300 mg tablet extended release 24 hr 300 mg PO DAILY ibuprofen 800 mg tablet trazodone 100 mg tablet ketorolac 10 mg tablet 10 mg PO TID PRN (Reason: pain) Qty: 12 0RF Instructions: Acute Bronchitis (ED) Stand Alone Forms: Portal Instructions Referrals: Physician,Non-Staff, MD [Primary Care Provider] - 1 week
[2023-01-27 09:09] LABS: SARS-CoV-2 Ag NEGATIVE (NEGATIVE)
[2023-01-27 15:43] LABS: SARS-CoV-2 NAA NOT DETECTED (NOT DETECTE)
== END 2023-01-27 09:25 | disposition home or self-care (01) ==
PROVIDERS: Emergency Provider Emergency Medicine
DX: J06.9 Acute upper respiratory infection, unspecified (principal); Z79.899 Other long term (current) drug therapy; F17.210 Nicotine dependence, cigarettes, uncomplicated; Z20.822 Contact with and (suspected) exposure to COVID-19
CPT/HCPCS: 71045; 87635; 87811; 99284; U0003

== ENCOUNTER 2023-03-26 09:49 | Emergency (ER) | payer BC, OTHER, SELFPAY ==
[2023-03-26 09:53] VITALS: BP 111/56; PULSE 63; RESP 16; TEMP 36.5; O2SAT 99; BMI 26.6
--- NOTE | 2023-03-26 09:56 | XR_ITS ---
The [address] [address] Patient Name: SANGEETA MYLES MRN: [id number] date: 1990 Sex: F Assigned Patient Location: ED.MAIN Current Patient Location: ER Accession/Order Number: [id number] Exam Date: 03/26/2023 10:10 Report Date: 03/26/2023 10:31 At the request of: EDWAR JONES Procedure: XR hand LT min 3V EXAM: XR hand LT min 3V INDICATION: c/o pain, injury to left hand 5th digit. COMPARISON: None. TECHNIQUE: Left hand, 3 views FINDINGS: Nondisplaced transverse fracture through the base of the little finger distal phalanx. The joint spaces are preserved. Unremarkable soft tissues. XR/XR hand LT min 3V IMPRESSION: Nondisplaced fracture of the little finger distal phalanx. Electronically authenticated by: PORTIA GONZÁLES Date: 03/26/2023 10:31
--- NOTE | 2023-03-26 10:00 | ED.UPPEXIN1 ---
HPI - Extremity Injury (Upper) General Chief Complaint: Extremity Injury, Upper Stated Complaint: UPPER EXTREMITY INJURY Time Seen by Provider: 03/26/23 10:00 Source: patient Mode of arrival: walk-in Limitations: no limitations History of Present Illness HPI narrative: patient here for an injury to her left hand. She sustained last night at home with the fall. She is right-handed dominant. She has isolated pain to her left hand, more specifically to her 5th digit. She was seen by the nursing staff and x-rays were ordered. They're on Related Data Home Medications Medication Instructions Recorded Confirmed bupropion HCl 300 mg 24 hr tablet, 300 mg PO DAILY 11/09/22 11/09/22 extended release ibuprofen 800 mg tablet mg 11/09/22 trazodone 100 mg tablet mg 11/09/22 Previous Rx's Medication Instructions Recorded nystatin 100,000 unit/mL oral 400,000 unit (4 mL) buccal QID 14 10/10/22 suspension days #224 mL sulfamethoxazole 800 1 tab PO BID 5 days #10 tabs 10/10/22 mg-trimethoprim 160 mg tablet (Bactrim DS) ketorolac 10 mg tablet 10 mg PO TID PRN pain #12 tabs 01/17/23 benzonatate 100 mg capsule 100 mg PO TID PRN cough #20 caps 01/27/23 doxycycline hyclate 100 mg capsule 100 mg PO BID 10 days #20 caps 01/27/23 Allergies Allergy/AdvReac Type Severity Reaction Status Date / Time No Known Drug Allergies Allergy Verified 01/27/23 08:35 [facility] Social History Smoking status: Former smoker Exam Narrative Exam Narrative: well-hydrated well-nourished female. She does have some bruising on the 5th digit. There is no obvious rotational or deviation from its normal anatomical position. She has actually no discomfort to the forearm the wrist or the dorsum of the hand. X-rays are pending at time of this note. Vascular examination is normal there is no laceration. Constitutional Vital Signs, click to edit/add: Last Vital Signs Temp 97.7 F 03/26/23 09:53 Pulse 63 03/26/23 09:53 Resp 16 03/26/23 09:53 BP 111/56 03/26/23 09:53 Pulse Ox 99 03/26/23 09:53 Course Vital Signs Vital signs: Vital Signs Temperature 97.7 F 03/26/23 09:53 Pulse Rate 63 03/26/23 09:53 Respiratory Rate 16 03/26/23 09:53 Blood Pressure 111/56 03/26/23 09:53 Pulse Oximetry 99 03/26/23 09:53 Temperature 97.7 F 03/26/23 09:53 Pulse Rate 63 03/26/23 09:53 Respiratory Rate 16 03/26/23 09:53 Blood Pressure 111/56 03/26/23 09:53 Pulse Oximetry 99 03/26/23 09:53 MDM - Extremity Injury (Upper) MDM Narrative Medical decision making narrative: x-rays confirm nondisplaced fracture distal phalanx. There is no hematoma underneath her nail. We will apply a splint, advised Tylenol with ibuprofen for pain control and ice. Discharge Plan Discharge Chief Complaint: Extremity Injury, Upper Clinical Impression: Fracture of phalanx of digit of hand Patient Disposition: Home, Self-Care Time of Disposition Decision: 10:51 Prescriptions / Home Meds: No Action nystatin 100,000 unit/mL suspension 400,000 unit buccal QID 14 Days Qty: 224 0RF Rx Instructions: administer 1/2 of dose in each side of the mouth sulfamethoxazole-trimethoprim [Bactrim DS] 800-160 mg tablet 1 tab PO BID 5 Days Qty: 10 0RF bupropion HCl 300 mg tablet extended release 24 hr 300 mg PO DAILY ibuprofen 800 mg tablet trazodone 100 mg tablet ketorolac 10 mg tablet 10 mg PO TID PRN (Reason: pain) Qty: 12 0RF doxycycline hyclate 100 mg capsule 100 mg PO BID 10 Days Qty: 20 0RF benzonatate 100 mg capsule 100 mg PO TID PRN (Reason: cough) Qty: 20 0RF Additional Instructions: alternate Tylenol with ibuprofen/ice/digit splint/follow-up family doctor Stand Alone Forms: Portal Instructions Referrals: Physician,Non-Staff, MD [Primary Care Provider] - 1 week
== END 2023-03-26 11:05 | disposition home or self-care (01) ==
PROVIDERS: Emergency Provider Emergency Medicine Emergency Medical Services
DX: S62.667A Nondisplaced fracture of distal phalanx of left little finger, initial encounter for closed fracture (principal); W19.XXXA Unspecified fall, initial encounter; Z79.899 Other long term (current) drug therapy; Z87.891 Personal history of nicotine dependence
CPT/HCPCS: 29130; 73130; 99283

== ENCOUNTER 2023-05-22 03:14 | Emergency (ER) | payer BC, OTHER, SELFPAY ==
[2023-05-22 03:18] VITALS: BP 129/73; PULSE 68; RESP 16; TEMP 36.3; O2SAT 99; BMI 30.1
--- OUTSIDE RECORDS SUMMARY | 2023-05-22 03:21 | XMS_ITS | CCD ---
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 Name Role Phone None, No PCP Unavailable Unavailable Unavailable Unavailable PAY, DR GARCIA Consulting Unavailable BRISEIDA HANKINS Attending Unavailable MAGEN MOJICA Primary Care Unavailable BRISEIDA HANKINS Admitting Unavailable LEXIE HANKINSYL Consulting Unavailable ANTONINA DURON Consulting Unavailable NONE, XXXX Primary Care Physician Unavailab le Unavailable Primary Care Provider Unavailabl e Unavailable Primary Care Provider Unavailabl e Zev Hamlin Referring Unavailable Boubacar, Zev D Attending Unavailable Boubacar, Zev D Admitting Unavailable JACKIE, DEZ Referring Unavailable JACKIE, DEZ Referring Unavailable JACKIE, DEZ Referring Unavailable JACKIE, DEZ Referring Unavailable JACKIE, DEZ Referring Unavailable ELVIS, P. EDWAR Referring Unavailable ELVIS, P. EDWAR Primary Care Unavailable ELVIS, P. EDWAR Attending Unavailable ELVIS, P. EDWAR Attending Unavailable ELVIS, P. EDWAR Referring Unavailable ELVIS, P. EDWAR Primary Care Unavailable ELVIS, P. EDWAR Attending Unavailable ELVIS, P. EDWAR Primary Care Unavailable SELF, SELF Referring Unavailable SELF, SELF Referring Unavailable ELVIS, P. EDWAR Attending Unavailable ELVIS, P. EDWAR Primary Care Unavailable Medications Current Medications Medication Drug Class(es) Dates Sig (Normalized) Sig (Original) acetaminophen 325 mg / oxyCODONE hydrochloride 5 mg oral tablet (1 source) Opioid Agonist Start: 07-24-2021 End: 07-26-2021 Percocet 325 mg-5 mg Tab 1 tab(s), Oral, q6hr for pain for 2 day(s), 7 tab(s), Refill(s) 0, [facility]/pharmacy #[id number], 161, cm, 02/24/22 13:03:00 EST, Height/Length Dosing, 72, kg, 06/25/21 13:03:00 EST, Weight Dosing Start Date: 07/24/21 Stop Date: 07/26/21 Status: Ordered albuterol 0.83 mg/ml inhalation solution (2 sources) beta2-Adrenergic Agonist Start: 06-25-2021 take 2.5 mg by inhalation every six hours for wheezing albuterol 0.083% Inh Valerie 3 mL 2.5 mg, 3 mL, Inhalation, q6hr for wheezing, 25 EA, Refill(s) 0 Start Date: 06/25/21 Status: Ordered Start: 06-25-2021 take 2.5 mg by inhal ation every six hours for wheezing albuterol 0.083% Inh Valerie 3 mL 2.5 mg, 3 mL, Inhalation, q6hr for wheezing, 25 EA, Refill(s) 0 Start Date: 06/25/21 Status: Ordered clonazePAM 0.5 mg oral tablet (5 sources) Benzodiazepine take 1 tablet by mouth twice daily as needed clonazePAM (KLONOPIN) 0.5 MG tablet Take 0.5 mg by mouth 2 times daily as needed (Patient unsure of exact dosage).. 0 Active nitrofurantoin, macrocrystals 25 mg / nitrofurantoin, monohydrate 75 mg oral capsule (5 sources) Nitrofuran Antibacterial take 1 capsule by mouth twice daily nitrofurantoin, macrocrystal-monohy drate, (MACROBID) 100 MG capsule Take 100 mg by mouth 2 times daily 0 Active Xxokjtst-Ouc-Al-FA ( VITAMINS PO) (5 sources) Ntiijgtj-Aco-Hu-FA ( VITAMINS PO) Take by mouth 0 Active Completed/Discontinued Medications Medication Drug Class(es) Dates Sig (Normalized) Sig (Original) No Reported Medications (2 sources) No Reported Medi cations Quantity: 0 Refills: 0 Ordered: 09-Jul-2021 DO Active Problems Active Problems Problem Classification Problem Date Documented Date Episodic/Chronic Abdominal pain (2 sources) Unspecified abdominal pain; Translations: [Unspecified abdominal pain] Onset: 12-10-2022 Episodic Anxiety disorders (5 sources) Anxiety disorder; Translations: [Anxiety disorder, unspecified] Onset: 07-24-2021 Chronic Contraceptive and procreative management (1 source) Sterilization requested; Translations: [Encounter for sterilization] Onset: 07-24-2021 Episodic E Codes: Natural/environment (1 source) Other and unspecified overexertion or strenuous movements or postures, initial encounter; Translations: [OTH AND UNS OVREXRT/STRN MVMT/POS INT] Onset: 07-08-2021 Episodic Epilepsy; convulsions (5 sources) Seizure disorder; Translations: [Epilepsy, unspecified, not intractable, without status epilepticus] Onset: 08-15-2013 Chronic Genitourinary symptoms and ill-defined conditions (2 sources) Dysuria; Translations: [Dysuria] Onset: 12-10-2022 Episodic Hepatitis (3 sources) Viral hepatitis C; Translations: [Unspecified viral hepatitis C without hepatic coma] Onset: 07-24-2021 Episodic Miscellaneous mental health disorders (2 sources) Primary insomnia; Translations: [Primary insomnia] Onset: 11-04-2022 Chronic Mood disorders (2 sources) Mood disorders; Translations: [Depression, unspecified] Onset: 11-04-2022 Nonspecific chest pain (2 sources) Chest pain; Translations: [Chest pain, unspecified] Episodic Other circulatory disease (2 sources) Low blood pressure 06-25-2021 Episodic Other complications of (2 sources) Twin 02-06-2018 Episodic Other female genital disorders (2 sources) Other specified noninflammatory disorders of vagina; Translations: [Other specified noninflammatory disorders of vagina] Onset: 09-22-2022 Episodic Other lower respiratory disease (2 sources) Dyspnea; Translations: [Other respiratory abnormalities] Episodic Other non-traumatic joint disorders (3 sources) Pain in left shoulder; Translations: [PAIN IN LEFT SHOULDER] Onset: 07-04-2021 Episodic Other nutritional; endocrine; and metabolic disorders (2 sources) Overweight in adulthood with body mass index of 25 or more but less than 30; Translations: [Overweight] Episodic Residual codes; unclassified (1 source) Pelvic organ finding; Translations: [Acquired absence of other genital organ(s)] Onset: 07-24-2021 Episodic Residual codes; unclassified (2 sources) Tobacco user 05-03-2012 Episodic Comment on above: Added secondary to s ocial history documentation. Sprains and strains (1 source) Strain of unspecified muscle, fascia and tendon at shoulder and upper arm level, left arm, initial encounter; Translations: [STRN UNS MSC F TND SHLDR UA LA INIT] Onset: 07-08-2021 Episodic Substance-related disorders (9 sources) Smoker; Translations: [Tobacco use disorder] Onset: 07-24-2021 Chronic Comment on above: <1PPD; Added secondary to d ocumentation in Social History. Syncope (2 sources) Cardiac syncope 07-13-2013 Episodic Unclassified (2 sources) History of clinical finding in subject 06-25-2021 Unclassified (2 sources) Tobacco use during ( Confirmed ) 05-12-2012 Unclassified (1 source) Alcohol use, unspecified, uncomplicated; Translations: [Alcohol use, unspecified, uncomplicated] Onset: 11-04-2022 Past or Other Problems Problem Classification Problem Date Documented Date Episodic/Chronic Deficiency and other anemia (2 sources) Nutritional anemia, unspecified; Translations: [Nutritional anemia, unspecified] Onset: 11-04-2022 Episodic Early or threatened labor (5 sources) Finding of uterine contractions; Translations: [False labor, unspecified] Onset: 03-20-2018 03-20-2018 Episodic Immunizations and screening for infectious disease (2 sources) Other specified abnormal immunological findings in serum; Translations: [Other specified abnormal immunological findings in serum] Onset: 04-19-2022 Episodic Other and delivery including normal (5 sources) Multiple ; Translations: [Multiple gestation, unspecified, unspecified trimester] Onset: 03-06-2018 03-06-2018 Episodic Other screening for suspected conditions (not mental disorders or infectious disease) (4 sources) Electrocardiogram abnormal; Translations: [Nonspecific abnormal electrocardiogram [ECG] [EKG]] Onset: 11-04-2022 Episodic Substance-related disorders (6 sources) Opioid use, unspecified, uncomplicated; Translations: [Other stimulant use, unspecified, uncomplicated] Onset: 09-13-2022 Episodic Unclassified (6 sources) Onset: 04-15-2010 Resolved: 08-30-2018 11-07-2014 Unclassified (1 source) Exposure to 2019 novel coronavirus; Translations: [Contact with and (suspected) exposure to COVID19] Unclassified (1 source) Alcohol use, unspecified, uncomplicated; Translations: [Alcohol use, unspecified, uncomplicated] Onset: 11-04-2022 Results Test Name Value Interpretation Reference Range Facil ity Cult,Urineon 12-11-2022 Cult,Urine Specimen Description .URINE Culture Several types of bacteria were identified in this specimen. Further ID and susceptibility testing is generally not helpful in this circumstance and has not been performed. Consider recollection if clinically indicated. Report Status FINAL 12/11/2022 Normal [facility] Comment on above: Performed By: #### P HEP, HIVCMB #### [address] [address] [employer]port Support Associate: Antonino Nova MD #### BMPCMP, BMP, CBC #### [facility] [address] [place] [address] [place] [address] [employer]port Support Associate: Merlin Charles MD UA w/Reflex Cultureon 2022 Bilirubin, SemiQt,Ur Negative Normal NEG [facility] Comment on above: Performed By: #### P HEP, HIVCMB #### [address] [address] [employer] Support Associate: Antonino Nova MD #### BMPCMP, BMP, CBC #### [address] [place] [address] [employer]port Support Associate: Merlin Charles MD Blood, Urine Negative Normal NEG [facility] Comment on above: Performed By: #### P HEP, HIVCMB #### [address] [address] [employer] Support Associate: Antonino Nova MD #### BMPCMP, BMP, CBC #### [facility] [address] [place] [address] [employer]port Support Associate: Merlin Charles MD Clarity (U) Clear Normal CLEAR [facility] Comment on above: Performed By: #### P HEP, HIVCMB #### [address] [address] [employer]port Support Associate: Antonino Nova MD #### BMPCMP, BMP, CBC #### [address] [place], [place] [phone] [employer]port Support Associate: Merlin Charles MD Color (U) Yellow Normal YEL [facility] Comment on above: Performed By: #### P HEP, HIVCMB #### [address] [address] [employer] Support Associate: Antonino Nova MD #### BMPCMP, BMP, CBC #### [address] [place], [place] [phone] [employer] Support Associate: Merlin Charles MD Glucose Ql (U) Negative Normal NEG [facility] Comment on above: Performed By: #### P HEP, HIVCMB #### [address] [address] [employer]port Support Associate: Antonino Nova MD #### BMPCMP, BMP, CBC #### [address] [place], [place] [phone] [employer] Support Associate: Merlin Charles MD Ketones Ql (U) Negative Normal NEG [facility] Comment on above: Performed By: #### P HEP, HIVCMB #### [address] [address] [employer] Support Associate: Antonino Nova MD #### BMPCMP, BMP, CBC #### [address] [place], [place] [phone] [employer] Support Associate: Merlin Charles MD Leukocyte esterase Test strip Ql (U) LARGE Abnormal NEG [facility] Comment on above: Performed By: #### P HEP, HIVCMB #### [address] [address] [employer] Support Associate: Antonino Nova MD #### BMPCMP, BMP, CBC #### [address] [place] [phone] [employer] Support Associate: Merlin Charles MD Nitrite,Ur Negative Normal NEG [facility] Comment on above: Performed By: #### P HEP, HIVCMB #### [address] [address] [employer] Support Associate: Antonino Nova MD #### BMPCMP, BMP, CBC #### [address] [place] [phone] [employer] Support Associate: Merlin Charles MD PH,Ur 6.0 Normal 5.0-9.0 [facility] Comment on above: Performed By: #### P HEP, HIVCMB #### [address] [address] [employer]port Support Associate: Antonino Nova MD #### BMPCMP, BMP, CBC #### [address] [place] [phone] [employer]port Support Associate: Merlin Charles MD Protein Ql (U) Negative Normal NEG [facility] Comment on above: Performed By: #### P HEP, HIVCMB #### [address] [address] [employer] Support Associate: Antonino Nova MD #### BMPCMP, BMP, CBC #### [address] [place] [phone] [employer] Support Associate: Merlin Charles MD Spec. [place],Ur 1.025 High 1.010-1.020 [facility] Comment on above: Performed By: #### P HEP, HIVCMB #### [address] [address] [employer]port Support Associate: Antonino Nova MD #### BMPCMP, BMP, CBC #### [address] [place], [place] [phone] [employer]port Support Associate: Merlin Charles MD Urobilinogen,Ur Normal Normal 0.0-1.0 [facility] Comment on above: Performed By: #### P HEP, HIVCMB #### [address] [address] [employer]port Support Associate: Antonino Nova MD #### BMPCMP, BMP, CBC #### [facility] [address] [place] [address] [place] [address] [employer]port Support Associate: Merlin Charles MD Urinalysis,Microon 3 Bacteria 3+ Abnormal NONE [facility] Comment on above: Performed By: #### P HEP, HIVCMB #### [address] [phone] [employer] Support Associate: Antonino Nova MD #### BMPCMP, BMP, CBC #### [facility] [address] [place] [address] [place] [phone] [employer] Support Associate: Merlin Charles MD Epithelial cells LM Ql (Urine sed) 0 TO 2 Normal 0-25 [facility] Comment on above: Performed By: #### P HEP, HIVCMB #### [address] [address] [employer]port Support Associate: Antonino Nova MD #### BMPCMP, BMP, CBC #### [facility] [address] [place] [address] [place] [phone] [employer] Support Associate: Merlin Charles MD Urine RBC's 0 TO 2 Normal 0-2 [facility] Comment on above: Performed By: #### P HEP, HIVCMB #### [address] [address] [employer]port Support Associate: Antonino Nova MD #### BMPCMP, BMP, CBC #### [facility] [address] [place] [place] [address] [employer]port Support Associate: Merlin Charles MD Urine WBC's 10 TO 20 Normal 0-5 [facility] Comment on above: Performed By: #### P HEP, HIVCMB #### [facility] [address] [place], [place] [phone] Passport Support Associate: Antonino Nova MD #### BMPCMP, BMP, CBC #### [facility] [address] [place] [address] [place] [address] [employer]port Support Associate: Merlin Charles MD Cult,Urineon 09-24-2022 Cult,Urine Specimen Description .VOIDED URINE Culture ESCHERICHIA COLI >[id number] CFU/ML STREPTOCOCCI, BETA HEMOLYTIC GROUP B >[id number] CFU/ML Report Status FINAL 09/24/2022 SUSCEPTIBILITY Organism ESCHERICHIA COLI Method TESSY Ampicillin <=2 SUSCEPTIBLE Cefazolin <=4 SUSCEPTIBLE Cefazolin sensitivity results can be used to predict the effectiveness of oral cephalosporins (eg. Cephalexin) in uncomplicated Urinary Tract Infections due to E. coli, K. pneumoniae, and P. mirabilis Ceftriaxone <=0.25 SUSCEPTIBLE ESBL NEGATIVE Gentamicin <=1 SUSCEPTIBLE Levofloxacin <=0.12 SUSCEPTIBLE Nitrofurantoin <=16 SUSCEPTIBLE Piperacillin/Tazobacta m <=4 SUSCEPTIBLE Tobramycin <=1 SUSCEPTIBLE Trimethoprim/Sulfa <=20 SUSCEPTIBLE Susceptible [facility] Comment on above: Performed By: #### U RC #### [facility] [address] [place] [address] [employer]port Support Associate: Antonino Nova MD [address] [place] [address] [employer]port Support Associate: Merlin Charles MD Chlamydia/GC,DNA Ampon 09-23 Chlamydia Probe Negative Normal NEG [facility] Comment on above: Result Comment: CHLA MYDIA TRACHOMATIS DNA not detected by nucleic acid amplification. This test is intended for medical purposes only and is not valid for the evaluation of suspected sexual abuse or for other forensic purposes. In certain contexts, culture may be required to meet applicable laws and regulations for diagnosis of C. trachomatis and N. gonorrhoeae infections. Per 2014 CDC recommendations, this test does not include confirmation of positive results by an alternative nucleic acid target. Performed By: #### U MICAO, UA #### [address] [place] [address] [employer]port Support Associate: Merlin Charles MD #### SWCGP #### [address] [phone] [employer]port Support Associate: Antonino Nova MD Gonorrhea Probe Negative Normal NEG [facility] Comment on above: Result Comment: NEIS SERIA GONORRHOEAE DNA not detected by nucleic acid amplification. This test is intended for medical purposes only and is not valid for the evaluation of suspected sexual abuse or for other forensic purposes. In certain contexts, culture may be required to meet applicable laws and regulations for diagnosis of C. trachomatis and N. gonorrhoeae infections. Per 2014 CDC recommendations, this test does not include confirmation of positive results by an alternative nucleic acid target. Performed By: #### Alex LUCIANO UA #### [address] [place] [address] [employer]port Support Associate: Merlin Charles MD #### SWCGP #### [address] [phone] [employer] Support Associate: Antonino Nova MD Trichomonas/Wet Prepon 09-22 Trichomonas/Wet Prep Specimen Descriptio n .VAGINAL SPECIMEN Direct Exam NO YEAST OBSERVED NO TRICHOMONAS SEEN NO CLUE CELLS SEEN Report Status FINAL 09/22/2022 Normal [facility] Comment on above: Performed By: #### P HEP, HIVCMB #### [address] [address] [employer]port Support Associate: Antonino Nova MD #### BMPCMP, BMP, CBC #### [address] [place] [address] [employer]port Support Associate: Merlin Charles MD Urinalysis, Routineon 2022 Bilirubin, SemiQt,Ur Negative Normal NEG [facility] Comment on above: Performed By: #### U ANKITA UA #### [address] [place] [address] [employer] Support Associate: Merlin Charles MD #### SWCGP #### [address] [address] [employer] Support Associate: Antonino Nova MD Blood, Urine Negative Normal NEG [facility] Comment on above: Performed By: #### U MICAO, UA #### [facility] [address] [place], [place] [phone] [employer] Support Associate: Merlin Charles MD #### SWCGP #### [address] [address] [employer] Support Associate: Antonino Nova MD Clarity (U) Cloudy Abnormal CLEAR [facility] Comment on above: Performed By: #### U MICAO, UA #### [facility] [address] [place] [address] [place], [place] [phone] [employer] Support Associate: Merlin Charles MD #### SWCGP #### [address] [address] [employer]port Support Associate: Antonino Nova MD Color (U) Yellow Normal YEL [facility] Comment on above: Performed By: #### U MICAO, UA #### [facility] [address] [place] [address] [place], [place] [phone] [employer] Support Associate: Merlin Charles MD #### SWCGP #### [address] [address] [employer] Support Associate: Antonino Nova MD Glucose Ql (U) Negative Normal NEG [facility] Comment on above: Performed By: #### U MICAO, UA #### [facility] [address] [place] [address] [address], [place] [phone] [employer] Support Associate: Merlin Charles MD #### SWCGP #### [address] [address] [employer]port Support Associate: Antonino Nova MD Ketones Ql (U) Negative Normal NEG [facility] Comment on above: Performed By: #### U MICAO, UA #### [facility] [address] [place] [address] [address], [place] [phone] [employer] Support Associate: Merlin Charles MD #### SWCGP #### [address] [address] [employer] Support Associate: Antonino Nova MD Leukocyte esterase Test strip Ql (U) MODERATE Abnormal NEG [facility] Comment on above: Performed By: #### U MICAO, UA #### [facility] [address] [place] [address] [place] [place], [place] [phone] [employer] Support Associate: Merlin Charles MD #### SWCGP #### [address] [address] [employer]port Support Associate: Antonino Nova MD Nitrite,Ur Positive Abnormal NEG [facility] Comment on above: Performed By: #### U MICAO, UA #### [address] [place], [place] [phone] [employer] Support Associate: Merlin Charles MD #### SWCGP #### [address] [address] [employer] Support Associate: Antonino Nova MD PH,Ur 6.0 Normal 5.0-9.0 [facility] Comment on above: Performed By: #### U MICAO, UA #### [facility] [address] [place] [address] [place], [place] [phone] [employer] Support Associate: Merlin Charles MD #### SWCGP #### [address] [address] [employer] Support Associate: Antonino Nova MD Protein Ql (U) Negative Normal NEG [facility] Comment on above: Performed By: #### U MICAO, UA #### [facility] [address] [place] [address] [place] [phone] ( [employer] Support Associate: Merlin Charles MD #### SWCGP #### [address] [address] [employer] Support Associate: Antonino Nova MD Spec. [place],Ur 1.025 High 1.010-1.020 [facility] Comment on above: Performed By: #### U MICAO, UA #### [facility] [address] [place] [address] [place] [address] [employer]port Support Associate: Meriln Charles MD #### SWCGP #### [place] [address] [employer]port Support Associate: Antonino Nova MD Urobilinogen,Ur Normal Normal NORM [facility] Comment on above: Performed By: #### U MICAO, UA #### [address] [place] [address] [employer] Support Associate: Merlin Charles MD #### SWCGP #### [place] [address] [employer] Support Associate: Antonino Nova MD Urinalysis,Microon 3 Bacteria 3+ Abnormal NONE [facility] Comment on above: Performed By: #### U MICAO, UA #### [address] [place] [address] [employer] Support Associate: Merlin Charles MD #### SWCGP #### [place] [address] [employer] Support Associate: Antonino Nova MD Epithelial cells LM Ql (Urine sed) 0 TO 2 Normal 0-25 [facility] Comment on above: Performed By: #### U MICAO, UA #### [address] [place] [phone] [employer] Support Associate: Merlin Charles MD #### SWCGP #### [address] [address] [employer] Support Associate: Antonino Nova MD Mucus Strands 1+ Abnormal NONE [facility] Comment on above: Performed By: #### U ANKITA, UA #### [facility] [address] [place], [place] [phone] [employer] Support Associate: Merlin Charles MD #### SWCGP #### [address] [address] [employer] Support Associate: Antonino Nova MD Urine RBC's 0 TO 2 Normal 0-2 [facility] Comment on above: Performed By: #### U ANKITA, UA #### [facility] [address] [place] [address] [place] [place], [place] [phone] [employer] Support Associate: Merlin Charles MD #### SWCGP #### [address] [address] [employer] Support Associate: Antonino Nova MD Urine WBC's 10 TO 20 Normal 0-5 [facility] Comment on above: Performed By: #### U ANKITA, UA #### [facility] [address] [place] [address] [place], [place] [phone] [employer] Support Associate: Merlin Charles MD #### SWCGP #### [address] [address] [employer] Support Associate: Antonino Nova MD HCV RNA,Quant,PCRon 09-15-19 23 HCV Quant [id number] IU/mL Normal [facility] Comment on above: Performed By: #### H CVQN #### [address] [address] [employer] Support Associate: Antonino Nova MD [facility] [address] [place] [address] [address] [place], [place] [phone] [employer] Support Associate: Merlin Charles MD HCV RNA,Quant Detected Abnormal NOTDET [facility] Comment on above: Result Comment: INTERPRETIVE INFORMATION: HCV by Quantitative NAAT, Serum or Plasma Normal Range for this assay is Not Detected . The quantitative range of this assay is 15-30,000,000 IU/mL (1.17-7.48 log IU/mL). Lower limit of quantitation(LLoQ) is 15 IU/mL(1.17 log IU/mL). LLoQ values do not apply to diluted specimens. A result of Not Detected does not rule out the presence of inhibitors in the patient specimen or hepatitis C virus RNA concentrations below the level of detection of the test. Care should be taken when interpreting any single viral load determination. This test should not be used for blood donor screening, associated re-entry protocols, or for screening Human Cell, Tissues and Cellular Tissue-Based Products (HCT/P). Performed By: #### H CVQN #### [address] [address] [employer] Support Associate: Antonino Nova MD [address] [place] [phone] [employer] Support Associate: Merlin Charles MD HCV,RNA Log 6.95 Log IU/mL Normal [facility] [facility] Comment on above: Performed By: #### H CVQN #### [address] [address] [employer] Support Associate: Antonino Nova MD [address] [place] [phone] [employer] Support Associate: Merlin Charles MD [facility] 09-13-2022 Erythrocyte distribution width (RBC) [Ratio] 17.7 % High 11.8-14.4 [facility] Comment on above: Performed By: #### P HEP, HIVCMB #### [address] [address] [employer] Support Associate: Antonino Nova MD #### BMPCMP, BMP, CBC #### [address] [place] [address] [employer] Support Associate: Merlin Charles MD Hematocrit (Bld) [Volume fraction] 39.8 % Normal 36.3-47.1 [facility] Comment on above: Performed By: #### P HEP, HIVCMB #### [address] [address] [employer] Support Associate: Antonino Nova MD #### BMPCMP, BMP, CBC #### [address] [place] [phone] [employer] Support Associate: Merlin Charles MD Hemoglobin (Bld) [Mass/Vol] 13.5 g/dL Normal 11.9-15.1 [facility] Comment on above: Performed By: #### P HEP, HIVCMB #### [address] [address] [employer] Support Associate: Antonino Nova MD #### BMPCMP, BMP, CBC #### [address] [place] [phone] [employer] Support Associate: Merlin Charles MD MCH (RBC) [Entitic mass] 35.6 pg High 25.2-33.5 [facility] Comment on above: Performed By: #### P HEP, HIVCMB #### [address] [phone] [employer] Support Associate: Antonino Nova MD #### BMPCMP, BMP, CBC #### [address] [place] [phone] [employer] Support Associate: Merlin Charles MD MCHC (RBC) [Mass/Vol] 33.9 g/dL Normal 28.4-34.8 [facility] Comment on above: Performed By: #### P HEP, HIVCMB #### [address] [phone] [employer] Associate: Antonino Nova MD #### BMPCMP, BMP, CBC #### [address] [place], [place] [phone] [employer] Support Associate: Merlin Charles MD MCV (RBC) [Entitic vol] 105.0 fL High 82.6-102.9 [facility] Comment on above: Performed By: #### P HEP, HIVCMB #### [address] [phone] [employer] Support Associate: Antonino Nova MD #### BMPCMP, BMP, CBC #### [address] [place] [phone] [employer] Support Associate: Merlin Charles MD NRBC Automated 0.0 per 100 WBC Normal 0.0 [facility] Comment on above: Performed By: #### P HEP, HIVCMB #### [address] [phone] [employer] Support Associate: Antonino Nova MD #### BMPCMP, BMP, CBC #### [address] [place] [phone] [employer] Support Associate: Merlin Charles MD Platelet mean volume (Bld) [Entitic vol] 10.2 fL Normal 8.1-13.5 [facility] Comment on above: Performed By: #### P HEP, HIVCMB #### [address] [address] [employer] Support Associate: Antonino Nova MD #### BMPCMP, BMP, CBC #### [address] [place] [phone] [employer] Support Associate: Merlin Charles MD Platelets (Bld) [#/Vol] 128 10*3/uL Low 138-453 [facility] Comment on above: Performed By: #### P HEP, HIVCMB #### [address] [phone] [employer] Associate: Antonino Nova MD #### BMPCMP, BMP, CBC #### [address] [place], [place] [phone] [employer] Support Associate: Merlin Charles MD RBC (Bld) [#/Vol] 3.79 10*6/uL Low 3.95-5.11 [facility] Comment on above: Performed By: #### P HEP, HIVCMB #### [place] [address] [place], [place] [phone] [employer] Support Associate: Antonino Nova MD #### BMPCMP, BMP, CBC #### [facility] [address] [place], [place] [phone] [employer] Support Associate: Merlin Charles MD WBC (Bld) [#/Vol] 3.7 10*3/uL Normal 3.5-11.3 [facility] Comment on above: Performed By: #### P HEP, HIVCMB #### [address] [address] [place], [place] [phone] [employer] Support Associate: Antonino Nova MD #### BMPCMP, BMP, CBC #### [address] [place] [address] [employer] Support Associate: Merlin Charles MD Hematocrit (Bld) [Volume fraction] 39.8 % 36.3 - 47.1 % [facility] Hemoglobin (Bld) [Mass/Vol] 13.5 g/dL 11.9 - 15.1 g/dL [facility] Interpretation and review of laboratory results Abnormal [facility] MCH (RBC) [Entitic mass] 35.6 pg High 25.2 - 33.5 pg [facility] MCHC (RBC) [Mass/Vol] 33.9 g/dL 28.4 - 34.8 g/dL [facility] MCV (RBC) [Entitic vol] 105.0 fL High 82.6 - 102.9 fL [facility] NRBC Automated 0.0 0.0 per 100 WBC [facility] Platelet distribution width (Bld) [Ratio] 17.7 % High 11.8 - 14.4 % [facility] Platelet mean volume (Bld) [Entitic vol] 10.2 fL 8.1 - 13.5 fL [facility] Platelets (Bld) [#/Vol] 128 10*3/uL Low [facility] RBC (Bld) [#/Vol] 3.79 10*6/uL Low 3.95 - 5.11 m/uL [facility] WBC (Bld) [#/Vol] 3.7 10*3/uL [facility] Comp Metabolic Profon 2022 Albumin [Mass/Vol] 4.1 g/dL Normal 3.5-5.2 [facility] Comment on above: Performed By: #### P HEP, HIVCMB #### [address] [phone] [employer] Associate: Antonino Nova MD #### BMPCMP, BMP, CBC #### [address] [place] [phone] [employer] Support Associate: Merlin Charles MD Albumin/Glob Ratio 2.1 Normal 1.0-2.5 [facility] Comment on above: Performed By: #### P HEP, HIVCMB #### [address] [phone] [employer] Associate: Antonino Nova MD #### BMPCMP, BMP, CBC #### [address] [place] [phone] [employer] Support Associate: Merlin Charles MD Alkaline Phos 67 U/L Normal 35-104 [facility] Comment on above: Performed By: #### P HEP, HIVCMB #### [address] [phone] [employer] Associate: Antonino Nova MD #### BMPCMP, BMP, CBC #### [address] [place] [address] [employer] Support Associate: Merlin Charles MD ALT [Catalytic activity/Vol] 41 U/L High 5-33 [facility] Comment on above: Performed By: #### P HEP, HIVCMB #### [facility] [address] [place] [address] [employer] Support Associate: Antonino Nova MD #### BMPCMP, BMP, CBC #### [facility] [address] [place] [phone] [employer] Support Associate: Merlin Charles MD Anion gap [Moles/Vol] 6 mmol/L Low 9-17 [facility] Comment on above: Performed By: #### P HEP, HIVCMB #### [place] [address] [place], [place] [phone] [employer] Support Associate: Antonino Nova MD #### BMPCMP, BMP, CBC #### [facility] [address] [place] [address] Dr. [place] [phone] [employer] Support Associate: Merlin Charles MD AST [Catalytic activity/Vol] 52 U/L High <32 [facility] Comment on above: Performed By: #### P HEP, HIVCMB #### [facility] [address] [place], [place] [phone] [employer] Support Associate: Antonino Nova MD #### BMPCMP, BMP, CBC #### [facility] [address] [place] [address] Dr. [place] [phone] [employer] Associate: Merlin Charles MD Bilirubin [Mass/Vol] 0.6 mg/dL Normal 0.3-1.2 [facility] Comment on above: Performed By: #### P HEP, HIVCMB #### [address] [phone] [employer] Associate: Antonino Nova MD #### BMPCMP, BMP, CBC #### [facility] [address] [place] [address] [place] [address] [employer] Support Associate: Merlin Charles MD BUN/CRE Ratio 16 Normal 9-20 [facility] Comment on above: Performed By: #### P HEP, HIVCMB #### [address] [address] [employer] Support Associate: Antonino Nova MD #### BMPCMP, BMP, CBC #### [facility] [address] [place] [phone] [employer] Support Associate: Merlin Charles MD Calcium [Mass/Vol] 10.0 mg/dL Normal 8.6-10.4 [facility] Comment on above: Performed By: #### P HEP, HIVCMB #### [address] [address] [employer] Support Associate: Antonino Nova MD #### BMPCMP, BMP, CBC #### [address] [place] [phone] ( [employer] Support Associate: Merlin Charles MD Chloride [Moles/Vol] 108 mmol/L High 98-107 [facility] Comment on above: Performed By: #### P HEP, HIVCMB #### [address] [address] [employer] Support Associate: Antonino Nova MD #### BMPCMP, BMP, CBC #### [address] [place] [phone] [employer] Support Associate: Merlin Charles MD CO2 [Moles/Vol] 28 mmol/L Normal 20-31 [facility] Comment on above: Performed By: #### P HEP, HIVCMB #### [address] [address] [employer] Support Associate: Antonino Nova MD #### BMPCMP, BMP, CBC #### [address] [place] [phone] [employer] Support Associate: Merlin Charles MD Creatinine [Mass/Vol] 0.61 mg/dL Normal 0.50-0.90 [facility] Comment on above: Performed By: #### P HEP, HIVCMB #### [place] [address] [place] [address] [employer] Support Associate: Antonino Nova MD #### BMPCMP, BMP, CBC #### [facility] [address] [place] [place] [address] [employer] Support Associate: Merlin Charles MD GFR/1.73 sq M.predicted among non-blacks MDRD (S/P/Bld) [Vol rate/Area] mL/min/{1.73_m2} Normal >60 [facility] Comment on above: Result Comment: These results are not intended for use in patients <18 years of age. eGFR results are calculated without a race factor using the 2020 CKD-EPI equation. Careful clinical correlation is recommended, particularly when comparing to results calculated using previous equations. The CKD-EPI equation is less accurate in patients with extremes of muscle mass, extra-renal metabolism of creatine, excessive creatine ingestion, or following therapy that affects renal tubular secretion. Performed By: #### P HEP, HIVCMB #### [address] [address] [employer] Associate: Antonino Nova MD #### BMPCMP, BMP, CBC #### [address] [place] [address] [employer] Support Associate: Merlin Charles MD Glucose [Mass/Vol] 87 mg/dL Normal 70-99 [facility] Comment on above: Performed By: #### P HEP, HIVCMB #### [address] [address] [employer] Support Associate: Antonino Nova MD #### BMPCMP, BMP, CBC #### [facility] [address] [place] [place] [address] [employer] Support Associate: Merlin Charles MD Potassium [Moles/Vol] 5.0 mmol/L Normal 3.7-5.3 [facility] Comment on above: Performed By: #### P HEP, HIVCMB #### [address] [place] [address] [employer] Support Associate: Antonino Nova MD #### BMPCMP, BMP, CBC #### [facility] [address] [place] [address] [address]. [place], [place] [phone] [employer] Support Associate: Merlin Charles MD Protein [Mass/Vol] 6.1 g/dL Low 6.4-8.3 [facility] Comment on above: Performed By: #### P HEP, HIVCMB #### [address] [address] [employer] Support Associate: Antonino Nova MD #### BMPCMP, BMP, CBC #### [address] [place] [phone] [employer] Support Associate: Merlin Charles MD Sodium [Moles/Vol] 142 mmol/L Normal 135-144 [facility] Comment on above: Performed By: #### P HEP, HIVCMB #### [address] [address] [employer] Associate: Antonino Nova MD #### BMPCMP, BMP, CBC #### [address] [place] [phone] [employer] Support Associate: Merlin Charles MD Urea nitrogen [Mass/Vol] 10 mg/dL Normal 6-20 [facility] Comment on above: Performed By: #### P HEP, HIVCMB #### [address] [address] [employer] Support Associate: Antonino Nova MD #### BMPCMP, BMP, CBC #### [address] [place], [place] [phone] [employer] Support Associate: Merlin Charles MD Comprehensive Metabolic Pane [facility] 09-13-2022 Albumin [Mass/Vol] 4.1 g/dL 3.5 - 5.2 g/dL [facility] Albumin/Globulin [Mass ratio] 2.1 {ratio} 1.0 - 2.5 [facility] ALP [Catalytic activity/Vol] 67 U/L 35 - 104 U/L [facility] ALT [Catalytic activity/Vol] 41 U/L High 5 - 33 U/L [facility] Anion gap [Moles/Vol] 6 mmol/L Low 9 - 17 mmol/L [facility] AST [Catalytic activity/Vol] 52 U/L High NINF - 32 U/L [facility] Bilirubin [Mass/Vol] 0.6 mg/dL 0.3 - 1.2 mg/dL [facility] Calcium [Mass/Vol] 10.0 mg/dL 8.6 - 10.4 mg/dL [facility] Chloride [Moles/Vol] 108 mmol/L High 98 - 107 mmol/L [facility] CO2 [Moles/Vol] 28 mmol/L 20 - 31 mmol/L [facility] Creatinine [Mass/Vol] 0.61 mg/dL 0.50 - 0.90 mg/dL [facility] GFR/1.73 sq M.predicted MDRD (S/P/Bld) [Vol rate/Area] - PINF [facility] Comment on above: These results are not intended for use in patients <18 years of age. eGFR results are calculated without a race factor using the 2020 CKD-EPI equation. Careful clinical correlation is recommended, particularly when comparing to results calculated using previous equations. The CKD-EPI equation is less accurate in patients with extremes of muscle mass, extra-renal metabolism of creatine, excessive creatine ingestion, or following therapy that affects renal tubular secretion. Glucose [Mass/Vol] 87 mg/dL 70 - 99 mg/dL [facility] Interpretation and review of laboratory results Abnormal [facility] Potassium [Moles/Vol] 5.0 mmol/L 3.7 - 5.3 mmol/L [facility] Protein [Mass/Vol] 6.1 g/dL Low 6.4 - 8.3 g/dL [facility] Sodium [Moles/Vol] 142 mmol/L 135 - 144 mmol/L [facility] Urea nitrogen [Mass/Vol] 10 mg/dL 6 - 20 mg/dL [facility] Urea nitrogen/Creatinine (Bld) [Mass ratio] 16 9 - 20 [facility] HCG Qualitative, Serumon hCG Qual Negative NEGATIVE [facility] Comment on above: Specimens with hCG l evels near the threshold of the test (25 mIU/mL) may give a negative or indeterminate result. In such cases, another test should be performed with a new specimen in 48-72 hours. If early is suspected clinically in this setting, correlation with quantitative serum b-hCG level is suggested. [facility] has confirmed the use of plasma for this test. This has not been cleared or approved by the U.S. Food and Drug Administration. The FDA has determined that such clearance is not necessary. [facility] HCG Screen, Bloodon 09-14-19 HCG Screen, Blood Negative Normal [facility]G [facility] Comment on above: Result Comment: Spec imens with hCG levels near the threshold of the test (25 mIU/mL) may give a negative or indeterminate result. In such cases, another test should be performed with a new specimen in 48-72 hours. If early is suspected clinically in this setting, correlation with quantitative serum b-hCG level is suggested. [facility] has confirmed the use of plasma for this test. This has not been cleared or approved by the U.S. Food and Drug Administration. The FDA has determined that such clearance is not necessary. Performed By: #### P HEP, HIVCMB #### [facility] [address] [place] [address] [employer] Support Associate: Antonino Nova MD #### BMPCMP, BMP, CBC #### [facility] [address] [place] [address] [employer] Support Associate: Merlin Charles MD HCV RNA,Quant,PCRon 09-14-19 23 Source .PLASMA Normal [facility] Comment on above: Performed By: #### H CVQN #### [address] [place] [address] [employer] Support Associate: Antonino Nova MD [facility] [address] [place] [address] [place] [address] [employer] Support Associate: Merlin Charles MD HIV Ag/Abon 09-13-2022 HIV Ag/Ab Non-Reactive Normal NR [facility] Comment on above: Result Comment: No l aboratory evidence of HIV infection. If acute HIV infection is suspected, consider testing for HIV-1 RNA. Performed By: #### P HEP, HIVCMB #### [address] [address] [employer] Support Associate: Antonino Nova MD #### BMPCMP, BMP, CBC #### [address] [place] [address] [employer] Support Associate: Merlin Charles MD HIV Screenon 09-13-2022 HIV 1+2 Ab+HIV1 p24 Ag IA Ql Non-Reactive NONREACTIVE [facility] Comment on above: No laboratory eviden ce of HIV infection. If acute HIV infection is suspected, consider testing for HIV-1 RNA. [facility] Hepatitis Acute Jonnie 09-13 Hep A Ab,IgM Non-Reactive Normal NR [facility] Comment on above: Performed By: #### P HEP, HIVCMB #### [address] [address] [employer] Support Associate: Antonino Nova MD #### BMPCMP, BMP, CBC #### [address] [place] [address] [employer] Support Associate: Merlin Charles MD Hep B Core Ab,IgM Non-Reactive Normal [facility] Comment on above: Performed By: #### P HEP, HIVCMB #### [address] [address] [employer] Support Associate: Antonino Nova MD #### BMPCMP, BMP, CBC #### [facility] [address] [place] [address] [address]. [place], [place] [phone] [employer] Support Associate: Merlin Charles MD Hep B Surf Ag Non-Reactive Normal [facility] Comment on above: Performed By: #### P HEP, HIVCMB #### [facility] [address] [place] [address] [employer] Support Associate: Antonino Nova MD #### BMPCMP, BMP, CBC #### [address] [place], [place] [phone] [employer] Support Associate: Merlin Charles MD Hep C Ab Reactive Abnormal [facility] Comment on above: Result Comment: The hepatitis C procedure used in our laboratory is a Chemiluminescent test specific for three recombinant HCV antigens. A negative anti-HCV result indicates that the antibodies to hepatitis C virus are not present at this time. Individuals with reactive anti-HCV should be considered infected and infectious until proven otherwise. Confirmation of all equivocal or reactive results is recommended by ordering HCV RNA by PCR. Results reported to the appropriate Health Department Performed By: #### P HEP, HIVCMB #### [address] [place] [address] [employer] Support Associate: Antonino Nova MD #### BMPCMP, BMP, CBC #### [address] [place] [address] [employer] Support Associate: Merlin Charles MD Hepatitis Panel, [facility] HAV IgM Ql (S) Non-Reactive NONREACTIVE [facility] HBV core IgM Ql (S) Non-Reactive NONREACTIVE [facility] HBV surface Ag IA Ql Non-Reactive NONREACTIVE B ON [facility] HCV Ab IA Ql Reactive Abnormal NONREACTIVE [facility] Comment on above: The hepatitis C procedure used in our laboratory is a Chemiluminescent test specific for three recombinant HCV antigens. A negative anti-HCV result indicates that the antibodies to hepatitis C virus are not present at this time. Individuals with reactive anti-HCV should be considered infected and infectious until proven otherwise. Confirmation of all equivocal or reactive results is recommended by ordering HCV RNA by PCR. Results reported to the appropriate Health Department Interpretation and review of laboratory results Abnormal [facility] Comp Metabolic Addonon 04-20 Albumin [Mass/Vol] 4.5 g/dL Normal 3.5-5.2 [facility] Comment on above: Performed By: #### P HEP, HIVCMB #### [address] [address] [employer] Support Associate: Antonino Nova MD #### BMPCMP, BMP, CBC #### [address] [place], [place] [phone] [employer] Support Associate: Merlin Charles MD Albumin/Glob Ratio 2.0 Normal 1.0-2.5 [facility] Comment on above: Performed By: #### P HEP, HIVCMB #### [address] [address] [employer] Support Associate: Antonino Nova MD #### BMPCMP, BMP, CBC #### [address] [place] [address] [employer] Support Associate: Merlin Charles MD Alkaline Phos 81 U/L Normal 35-104 [facility] Comment on above: Performed By: #### P HEP, HIVCMB #### [address] [address] [employer] Support Associate: Antonino Nova MD #### BMPCMP, BMP, CBC #### [address] [place], [place] [phone] [employer] Support Associate: Merlin Charles MD ALT [Catalytic activity/Vol] 106 U/L High 5-33 [facility] Comment on above: Performed By: #### P HEP, HIVCMB #### [address] [address] [employer] Support Associate: Antonino Nova MD #### BMPCMP, BMP, CBC #### [address] [place], [place] [phone] [employer] Support Associate: Merlin Charles MD AST [Catalytic activity/Vol] 77 U/L High <32 [facility] Comment on above: Performed By: #### P HEP, HIVCMB #### [address] [address] [employer] Support Associate: Antonino Nova MD #### BMPCMP, BMP, CBC #### [address] [place], [place] [phone] [employer] Support Associate: Merlin Charles MD Bilirubin [Mass/Vol] 0.6 mg/dL Normal 0.3-1.2 [facility] Comment on above: Performed By: #### P HEP, HIVCMB #### [address] [address] [employer] Support Associate: Antonino Nova MD #### BMPCMP, BMP, CBC #### [address] [place], [place] [phone] [employer] Support Associate: Merlin Charles MD Protein [Mass/Vol] 6.7 g/dL Normal 6.4-8.3 [facility] Comment on above: Performed By: #### P HEP, HIVCMB #### [address] [address] [employer] Associate: Antonino Nova MD #### BMPCMP, BMP, CBC #### [address] [place], [place] [phone] [employer] Support Associate: Merlin Charles MD HCV RNA,Quant,PCRon 04-20-20 HCV Quant 1,330,000 IU/mL Normal [facility] Comment on above: Performed By: #### P HEP, HIVCMB #### [address] [address] [employer] Support Associate: Antonino Nova MD #### BMPCMP, BMP, CBC #### [facility] [address] [place] [address] [place] [address] [employer] Support Associate: Merlin Charles MD HCV RNA,Quant Detected Abnormal NOTDET [facility] Comment on above: Result Comment: HCV RNA DETECTED This test is a sensitive method for quantitating HCV RNA viral loads in plasma. It utilizes RT-PCR in the FDA approved [employer]iprep/Taqman 48 System. This test is intended for detecting and quantifying HCV RNA viral loads in the range of 15 IU/mL to 20,000,000 IU/mL (1.18 log IU/mL to 7.30 log IU/mL). Patients should have confirmed HCV infection prior to RNA quantification. This test has been developed to monitor disease progression and efficacy of anti-HCV drug therapy. This test has been optimized for HCV genotypes 1-6. Results reported to the appropriate Health Department Performed By: #### P HEP, HIVCMB #### [address] [phone] [employer] Associate: Antonino Nova MD #### BMPCMP, BMP, CBC #### [address] [place] [address] [employer] Support Associate: Merlin Charles MD HCV,RNA Log 6.12 Log IU/mL Normal [facility] Comment on above: Performed By: #### P HEP, HIVCMB #### [address] [phone] [employer] Associate: Antonino Nova MD #### BMPCMP, BMP, CBC #### [address] [place] [address] [employer] Support Associate: Merlin Charles MD Basic Metabolic Profon 04-19 Anion gap [Moles/Vol] 7 mmol/L Low 01-16 [facility] Comment on above: Performed By: #### P HEP, HIVCMB #### [address] [phone] [employer] Associate: Antonino Nova MD #### BMPCMP, BMP, CBC #### [facility] [address] [place], [place] [phone] [employer] Support Associate: Merlin Charles MD BUN/CRE Ratio 20 Normal 9-20 [facility] Comment on above: Performed By: #### P HEP, HIVCMB #### [address] [place] [address] [employer] Associate: Antonino Nova MD #### BMPCMP, BMP, CBC #### [facility] [address] [place], [place] [phone] [employer] Support Associate: Merlin Charles MD Calcium [Mass/Vol] 9.9 mg/dL Normal 8.6-10.4 [facility] Comment on above: Performed By: #### P HEP, HIVCMB #### [address] [phone] [employer] Associate: Antonino Nova MD #### BMPCMP, BMP, CBC #### [facility] [address] [place], [place] [phone] [employer] Support Associate: Merlin Charles MD Chloride [Moles/Vol] 106 mmol/L Normal 98-107 [facility] Comment on above: Performed By: #### P HEP, HIVCMB #### [address] [address] [employer] Support Associate: Antonino Nova MD #### BMPCMP, BMP, CBC #### [facility] [address] [place], [place] [phone] [employer] Support Associate: Merlin Charles MD CO2 [Moles/Vol] 29 mmol/L Normal 20-31 [facility] Comment on above: Performed By: #### P HEP, HIVCMB #### [address] [address] [employer] Support Associate: Antonino Nova MD #### BMPCMP, BMP, CBC #### [facility] [address] [place], [place] [phone] [employer] Support Associate: Merlin Charles MD Creatinine [Mass/Vol] 0.79 mg/dL Normal 0.50-0.90 [facility] Comment on above: Performed By: #### P HEP, HIVCMB #### [address] [phone] [employer] Support Associate: Antonino Nova MD #### BMPCMP, BMP, CBC #### [facility] [address] [place] [address] [employer] Support Associate: Merlin Charles MD GFR/1.73 sq M.predicted among non-blacks MDRD (S/P/Bld) [Vol rate/Area] mL/min/{1.73_m2} Normal >60 [facility] Comment on above: Result Comment: Effective Feb 01, 2022 These results are not intended for use in patients <18 years of age. eGFR results are calculated without a race factor using the 2020 CKD-EPI equation. Careful clinical correlation is recommended, particularly when comparing to results calculated using previous equations. The CKD-EPI equation is less accurate in patients with extremes of muscle mass, extra-renal metabolism of creatine, excessive creatine ingestion, or following therapy that affects renal tubular secretion. Performed By: #### P HEP, HIVCMB #### [address] [address] [employer] Support Associate: Antonino Nova MD #### BMPCMP, BMP, CBC #### [address] [place] [address] [employer] Support Associate: Merlin Charles MD Glucose [Mass/Vol] 98 mg/dL Normal 70-99 [facility] Comment on above: Performed By: #### P HEP, HIVCMB #### [address] [address] [employer] Support Associate: Antonino Nova MD #### BMPCMP, BMP, CBC #### [facility] [place], [place] [phone] [employer] Support Associate: Merlin Charles MD Potassium [Moles/Vol] 4.6 mmol/L Normal 3.7-5.3 [facility] Comment on above: Performed By: #### P HEP, HIVCMB #### [address] [place] [address] [employer] Support Associate: Antonino Nova MD #### BMPCMP, BMP, CBC #### [address] [place], [place] [phone] [employer] Support Associate: Merlin Charles MD Sodium [Moles/Vol] 142 mmol/L Normal 135-144 [facility] Comment on above: Performed By: #### P HEP, HIVCMB #### [address] [phone] [employer] Associate: Antonino Nova MD #### BMPCMP, BMP, CBC #### [address] [place] [address] [employer] Support Associate: Merlin Charles MD Urea nitrogen [Mass/Vol] 16 mg/dL Normal 6-20 [facility] Comment on above: Performed By: #### P HEP, HIVCMB #### [address] [address] [employer] Support Associate: Antonino Nova MD #### BMPCMP, BMP, CBC #### [address] [place], [place] [phone] [employer] Support Associate: Merlin Charles MD CBCon 04-19-2022 Erythrocyte distribution width (RBC) [Ratio] 15.2 % High 11.8-14.4 [facility] Comment on above: Performed By: #### P HEP, HIVCMB #### [address] [phone] [employer] Associate: Antonino Nova MD #### BMPCMP, BMP, CBC #### [address] [place], [place] [phone] [employer] Support Associate: Merlin Charles MD Hematocrit (Bld) [Volume fraction] 41.4 % Normal 36.3-47.1 [facility] Comment on above: Performed By: #### P HEP, HIVCMB #### [address] [phone] [employer] Associate: Antonino Nova MD #### BMPCMP, BMP, CBC #### [address] [place], [place] [phone] [employer] Support Associate: Merlin Charles MD Hemoglobin (Bld) [Mass/Vol] 13.3 g/dL Normal 11.9-15.1 [facility] Comment on above: Performed By: #### P HEP, HIVCMB #### [address] [address] [employer] Support Associate: Antonino Nova MD #### BMPCMP, BMP, CBC #### [address] [place] [address] [employer] Support Associate: Merlin Charles MD MCH (RBC) [Entitic mass] 33.8 pg High 25.2-33.5 [facility] Comment on above: Performed By: #### P HEP, HIVCMB #### [address] [address] [employer] Support Associate: Antonino Nova MD #### BMPCMP, BMP, CBC #### [address] [place] [address] [employer] Support Associate: Merlin Charles MD MCHC (RBC) [Mass/Vol] 32.1 g/dL Normal 28.4-34.8 [facility] Comment on above: Performed By: #### P HEP, HIVCMB #### [address] [phone] [employer] Support Associate: Antonino Nova MD #### BMPCMP, BMP, CBC #### [facility] [address] [place] [address] [place] [address] [employer] Support Associate: Merlin Charles MD MCV (RBC) [Entitic vol] 105.3 fL High 82.6-102.9 [facility] Comment on above: Performed By: #### P HEP, HIVCMB #### [address] [phone] [employer] Support Associate: Antonino Nova MD #### BMPCMP, BMP, CBC #### [facility] [address] [place] [address] [place] [address] [employer] Support Associate: Merlin Charles MD NRBC Automated 0.0 per 100 WBC Normal 0.0 [facility] Comment on above: Performed By: #### P HEP, HIVCMB #### [address] [phone] [employer] Support Associate: Antonino Nova MD #### BMPCMP, BMP, CBC #### [facility] [address] [place] [address] [place] [address] [employer] Support Associate: Merlin Charles MD Platelet mean volume (Bld) [Entitic vol] 9.1 fL Normal 8.1-13.5 [facility] Comment on above: Performed By: #### P HEP, HIVCMB #### [address] [phone] [employer] Support Associate: Antonino Nova MD #### BMPCMP, BMP, CBC #### [facility] [address] [place] [address] [place] [address] [employer] Support Associate: Merlin Charles MD Platelets (Bld) [#/Vol] 203 10*3/uL Normal 138-453 [facility] Comment on above: Performed By: #### P HEP, HIVCMB #### [address] [address] [employer] Support Associate: Antonino Nova MD #### BMPCMP, BMP, CBC #### [address] [place], [place] [phone] [employer] Support Associate: Merlin Charles MD RBC (Bld) [#/Vol] 3.93 10*6/uL Low 3.95-5.11 [facility] Comment on above: Performed By: #### P HEP, HIVCMB #### [address] [address] [employer] Support Associate: Antonino Nova MD #### BMPCMP, BMP, CBC #### [address] [place], [place] [phone] [employer] Support Associate: Merlin Charles MD WBC (Bld) [#/Vol] 4.1 10*3/uL Normal 3.5-11.3 [facility] Comment on above: Performed By: #### P HEP, HIVCMB #### [address] [address] [employer] Support Associate: Antonino Nova MD #### BMPCMP, BMP, CBC #### [address] [place], [place] [phone] [employer] Support Associate: Merlin Charles MD HCV RNA,Quant,PCRon 04-19-20 22 Source .PLASMA Normal [facility] Comment on above: Performed By: #### P HEP, HIVCMB #### [address] [address] [employer] Support Associate: Antonino Nova MD #### BMPCMP, BMP, CBC #### [address] [place], [place] [phone] [employer] Support Associate: Merlin Charles MD HIV Ag/Abon 04-19-2022 HIV Ag/Ab Non-Reactive Normal NR [facility] Comment on above: Result Comment: No l aboratory evidence of HIV infection. If acute HIV infection is suspected, consider testing for HIV-1 RNA. Performed By: #### P HEP, HIVCMB #### [address] [address] [employer] Support Associate: Antonino Nova MD #### BMPCMP, BMP, CBC #### [address] [place], [place] [phone] [employer] Support Associate: Merlin Charles MD Hepatitis Acute [facility] 04-19 Hep A Ab,IgM Non-Reactive Normal [facility] Comment on above: Performed By: #### P HEP, HIVCMB #### [address] [address] [employer] Support Associate: Antonino Nova MD #### BMPCMP, BMP, CBC #### [address] [place] [phone] [employer] Support Associate: Merlin Charles MD Hep B Core Ab,IgM Non-Reactive Normal [facility] Comment on above: Performed By: #### P HEP, HIVCMB #### [address] [address] [employer] Support Associate: Antonino Nova MD #### BMPCMP, BMP, CBC #### [address] [place] [phone] [employer] Support Associate: Merlin Charles MD Hep B Surf Ag Non-Reactive Normal [facility] Comment on above: Performed By: #### P HEP, HIVCMB #### [address] [address] [employer] Support Associate: Antonino Nova MD #### BMPCMP, BMP, CBC #### [address] [place], [place] [phone] [employer] Support Associate: Merlin Charles MD Hep C Ab Reactive Abnormal [facility] Comment on above: Result Comment: The hepatitis C procedure used in our laboratory is a Chemiluminescent test specific for three recombinant HCV antigens. A negative anti-HCV result indicates that the antibodies to hepatitis C virus are not present at this time. Individuals with reactive anti-HCV should be considered infected and infectious until proven otherwise. Confirmation of all equivocal or reactive results is recommended by ordering HCV RNA by PCR. Results reported to the appropriate Health Department Performed By: #### P HEP, HIVCMB #### [facility] [address] [place] [address] [employer] Support Associate: Antonino Nova MD #### BMPCMP, BMP, CBC #### [facility] [address] [place] [address] [employer] Support Associate: Merlin Charles MD CBCon 11-09-2021 Hematocrit (Bld) [Volume fraction] 39.5 % 36.3 - 47.1 % [facility] Hemoglobin (Bld) [Mass/Vol] 12.6 g/dL 11.9 - 15.1 g/dL [facility] Interpretation and review of laboratory results Abnormal [facility] MCH (RBC) [Entitic mass] 32.6 pg 25.2 - 33.5 pg [facility] MCHC (RBC) [Mass/Vol] 31.9 g/dL 28.4 - 34.8 g/dL [facility] MCV (RBC) [Entitic vol] 102.3 fL 82.6 - 102.9 fL [facility] NRBC Automated 0.0 0.0 per 100 WBC [facility] Platelet distribution width (Bld) [Ratio] 14.9 % High 11.8 - 14.4 % [facility] Platelet mean volume (Bld) [Entitic vol] 9.7 fL 8.1 - 13.5 fL [facility] Platelets (Bld) [#/Vol] 175 10*3/uL [facility] RBC (Bld) [#/Vol] 3.86 10*6/uL Low 3.95 - 5.11 m/uL [facility] WBC (Bld) [#/Vol] 3.4 10*3/uL Low [facility] Comprehensive Metabolic Pane tayler 11-09-2021 Albumin [Mass/Vol] 4.7 g/dL 3.5 - 5.2 g/dL [facility] Albumin/Globulin [Mass ratio] 2.5 {ratio} [facility] ALP (Bld) [Catalytic activity/Vol] 76 U/L 35 - 104 U/L [facility] ALT [Catalytic activity/Vol] 50 U/L High 5 - 33 U/L [facility] Anion gap [Moles/Vol] 10 mmol/L 9 - 17 mmol/L [facility] AST [Catalytic activity/Vol] 40 U/L High <32 [facility] Bilirubin [Mass/Vol] 0.55 mg/dL 0.3 - 1.2 mg/dL [facility] Calcium [Mass/Vol] 10.4 mg/dL 8.6 - 10.4 mg/dL [facility] Chloride [Moles/Vol] 107 mmol/L 98 - 107 mmol/L [facility] CO2 [Moles/Vol] 25 mmol/L 20 - 31 mmol/L [facility] Creatinine [Mass/Vol] 0.72 mg/dL 0.50 - 0.90 mg/dL [facility] Free PSA/Total PSA [Mass fraction] 6.6 g/dL 6.4 - 8.3 g/dL [facility] GFR >60 >60 mL/min [facility] GFR Non- >60 >60 mL/min [facility] Glucose [Mass/Vol] 76 mg/dL 70 - 99 mg/dL [facility] Interpretation and review of laboratory results Abnormal [facility] Potassium [Moles/Vol] 3.9 mmol/L 3.7 - 5.3 mmol/L [facility] Sodium [Moles/Vol] 142 mmol/L 135 - 144 mmol/L [facility] Urea nitrogen (BldV) [Mass/Vol] 12 mg/dL 6 - 20 mg/dL [facility] Urea nitrogen/Creatinine (Bld) [Mass ratio] 17 [facility] HCG Qualitative, Serumon hCG Qual Negative NEGATIVE [facility] Comment on above: Specimens with hCG l evels near the threshold of the test (25 mIU/mL) may give a negative or indeterminate result. In such cases, another test should be performed with a new specimen in 48-72 hours. If early is suspected clinically in this setting, correlation with quantitative serum b-hCG level is suggested. [facility] has confirmed the use of plasma for this test. This has not been cleared or approved by the U.S. Food and Drug Administration. The FDA has determined that such clearance is not necessary. [facility] HIV Screenon 11-09-2021 HIV Ag/Ab Non-Reactive NONREACTIVE [facility] Comment on above: No laboratory eviden ce of HIV infection. If acute HIV infection is suspected, consider testing for HIV-1 RNA. [facility] Hepatitis Panel, Acuteon HAV IgM IA Qn (S) Non-Reactive NONREACTIVE [facility] Hep B Core Ab, IgM Non-Reactive NONREACTIVE [facility] Hepatitis B Surface Ag Non-Reactive NONREACTIVE [facility] Hepatitis C Ab Reactive Abnormal NONREACTIVE [facility] Comment on above: The hepatitis C procedure used in our laboratory is a Chemiluminescent test specific for three recombinant HCV antigens. A negative anti-HCV result indicates that the antibodies to hepatitis C virus are not present at this time. Individuals with reactive anti-HCV should be considered infected and infectious until proven otherwise. Confirmation of all equivocal or reactive results is recommended by ordering HCV RNA by PCR. Results reported to the appropriate Health Department Interpretation and review of laboratory results Abnormal [facility] Laboratory - Chemistry and C hemistry - challengeon 11-09-2021 GFR/1.73 sq M.predicted MDRD (S/P/Bld) [Vol rate/Area] [facility] Comment on above: Average GFR for 20-2 9 years old: 116 mL/min/1.73sq m Chronic Kidney Disease: <60 mL/min/1.73sq m Kidney failure: <15 mL/min/1.73sq m eGFR calculated using average adult body mass. Additional eGFR calculator available at: http://www.globalrph.com/multiple_crcl_2012.htm Stage 1: Some kidney damage normal GFR Stage 2: Mild kidney damage GFR 60-89 Stage 3: Moderate kidney damage GFR 30-59 Stage 4: Severe kidney damage GFR 15-29 Stage 5: Severe kidney damage GFR <15 ESRD - chronic treatment by dialysis or transplant Microscopic Urinalysison - [facility] Bacteria, UA 4+ Abnormal None [facility] Epithelial Cells UA 2 TO 5 [facility] Interpretation and review of laboratory results Abnormal [facility] Mucus, UA 1+ Abnormal None [facility] RBC, UA 0 TO 2 [facility] WBC, UA 20 TO 50 [facility] Urinalysis with Reflex to Cu ltureon 10-27-2021 Bilirubin Urine SMALL Abnormal NEGATIVE [facility] [employer] Color, UA Yellow Yellow [facility] Glucose, Ur Negative NEGATIVE [facility] Interpretation and review of laboratory results Abnormal [facility] Ketones Ql (U) Negative NEGATIVE [facility] Leukocyte esterase Test strip Ql (U) MODERATE Abnormal NEGATIVE [facility] Nitrite, Urine Negative NEGATIVE [facility] pH, UA 6.5 [facility] Protein, UA TRACE Abnormal NEGATIVE [facility] Specific [place], UA 1.025 High [facility] Turbidity UA SLIGHTLY CLOUDY Abnormal Clear [facility] Urine Hgb Negative NEGATIVE [facility] Urobilinogen, Urine Normal Normal [facility] Microscopic Urinalysison - [facility] Bacteria, UA 1+ Abnormal None [facility] Epithelial Cells UA 5 TO 10 [facility] Interpretation and review of laboratory results Abnormal [facility] RBC, UA 0 TO 2 [facility] WBC, UA 5 TO 10 [facility] Urinalysis with Reflex to Cu ltureon 10-07-2021 Bilirubin Urine Negative NEGATIVE [facility] [employer] Color, UA Yellow Yellow [facility] Glucose, Ur Negative NEGATIVE [facility] Interpretation and review of laboratory results Abnormal [facility] [employer] Ketones Ql (U) Negative NEGATIVE [place] [employer] [facility] Leukocyte esterase Test strip Ql (U) MODERATE Abnormal NEGATIVE [facility] [employer] Nitrite, Urine Negative NEGATIVE [place] [employer] [facility] [employer] pH, UA 5.5 [facility] Protein, UA Negative NEGATIVE [facility] Specific [place], UA 1.025 High [facility] [employer] Turbidity UA Clear Clear [facility] Urine Hgb Negative NEGATIVE [facility] [employer] Urobilinogen, Urine Normal Normal [facility] [employer] SEROLOGYOrdered By: Suly Raman on 07-24-2021 HCG.beta subunit (U) [Moles/Vol] Negative Normal [facility] [employer] Tobacco Screening.on 022 Adult depression screening assessment Yes [facility] [employer] 250 DO Work Phone: [phone] Tobacco use status CPHS a) Yes [facility] [employer] 250 DO Work Phone: Tobacco Screening. Yes [facility] [employer] 250 DO Work Phone: Tobacco Screening. 3-Nearly every day [facility] [employer] 250 DO Work Phone: Tobacco Screening. 2-More than half the days [facility] [employer] 250 DO Work Phone: Tobacco Screening. 0-Not at all [facility] [employer] 250 DO Work Phone: Tobacco Screening. Very Difficult [facility] [employer] 250 DO Work Phone: XR SHOULDER LT 2V or >on XR SHOULDER LT 2V or > EXAM: XR SHOULDER LT 2V or > HISTORY: Pain COMPARISON: None. TECHNIQUE: 3 views of the left shoulder were obtained. FINDINGS: No acute fracture or dislocation is seen. The left humeral head is well-seated on the glenoid. The acromioclavicular and coracoclavicular distances are preserved. The imaged lungs are clear. IMPRESSION: 1. No acute or significant abnormality of the left shoulder is seen. If there is concern for internal derangement, a nonemergent outpatient MRI is recommended. Electronically authenticated by: Janine DURON Date: 2021-07-04 02:09 Normal [facility] Vital Signs Date Time Vital Sign Value Performing Clinician Facility 07-24-2021 17:25-0400 Body temperature 96.98 [degF] Zev Hamlin [facility] 07-24-2021 17:25-0400 Heart rate 66 /min Zev Hamlin [facility] 07-24-2021 17:25-0400 Respiratory rate 110 /min Zev Hamlin [facility] 07-24-2021 17:25-0400 SaO2% (BldA) [Mass fraction] 100 % Zev Hamlin [facility] 07-24-2021 17:25-0400 Systolic blood pressure 68 mm[Hg] Zev Hamlin [facility] 07-24-2021 17:20-0400 Body temperature 97.7 [degF] Zev Hamlin [facility] 07-24-2021 17:20-0400 Diastolic blood pressure 63 mm[Hg] Zev Hamlin [facility] 07-24-2021 17:20-0400 Heart rate 65 /min Zev Hamlin [facility] 07-24-2021 17:20-0400 Respiratory rate 11 /min Zev Hamlin [facility] 07-24-2021 17:20-0400 SaO2% (BldA) [Mass fraction] 100 % Zev Hamlin [facility] 07-24-2021 17:20-0400 Systolic blood pressure 106 mm[Hg] Zev Hamlin [facility] 07-24-2021 17:05-0400 Diastolic blood pressure 70 mm[Hg] Zev Hamlin [facility] 07-24-2021 17:05-0400 Heart rate 78 /min Zev Hamlin [facility] 07-24-2021 17:05-0400 Respiratory rate 11 /min Zev Hamlin [facility] 07-24-2021 17:05-0400 SaO2% (BldA) [Mass fraction] 100 % Zev Hamlin [facility] 07-24-2021 17:05-0400 Systolic blood pressure 109 mm[Hg] Zev Hamlin [facility] 07-24-2021 17:00-0400 Diastolic blood pressure 54 mm[Hg] Zev Hamlin [facility] 07-24-2021 16:53-0400 Body temperature 97.52 [degF] Zev Hamlin [facility] 07-24-2021 11:18-0400 Blood Pressure Location Zev Hamlin [facility] 07-24-2021 11:18-0400 BP/Pulse Patient Position Zev Hamlin [facility] 07-24-2021 11:18-0400 Mean blood pressure 78 mm[Hg] Zev Hamlin [facility] 07-24-2021 11:17-0400 Blood Pressure Location Zev Hamlin [facility] 07-24-2021 11:17-0400 Body temperature 98.24 [degF] Zev Hamlin [facility] 07-24-2021 11:17-0400 BP/Pulse Patient Position Zev Hamlin [facility] 07-24-2021 11:17-0400 Mean blood pressure 84 mm[Hg] Zev Hamlin [facility] 07-24-2021 11:17-0400 Respiratory rate 16 /min Zev Hamlin [facility] 07-24-2021 11:17-0400 Heart rate 72 /min Zev Hamlin [facility] 07-09-2021 09:07-0500 Diastolic blood pressure 62 mm[Hg] No PCP None [facility] [employer] 250 DO Work Phone: 07-09-2021 09:07-0500 Systolic blood pressure 102 mm[Hg] No PCP None [facility] 250 DO Work Phone: 07-09-2021 09:01-0500 Body height 160.02 cm No PCP None [facility] 250 DO Work Phone: 07-09-2021 09:01-0500 Body mass index (BMI) [Ratio] 27.1 kg/m2 No PCP None [facility] 250 DO Work Phone: 07-09-2021 09:01-0500 Body surface area Derived from formula 1.73 m2 No PCP None [facility] 250 DO Work Phone: 07-09-2021 09:01-0500 Body weight 69.4 kg No PCP None [facility] 250 DO Work Phone: 07-09-2021 09:01-0500 Diastolic blood pressure 62 mm[Hg] No PCP None [facility] 250 DO Work Phone: 07-09-2021 09:01-0500 Heart rate 59 /min No PCP None [facility] 250 DO Work Phone: 07-09-2021 09:01-0500 Systolic blood pressure 104 mm[Hg] [facility]: 07-09-2021 09: 18 1 No PCP None [facility] 250 DO Work Phone: Comment on above: PHQ-9 TS Encounters Encounter Date Encounter Type Care Provider Facility Start: 02-16-2023 ambulatory [facility] Start: 01-19-2023 ambulatory [facility] Start: 01-06-2023 ambulatory [facility] Start: 12-10-2022 End: 12-11-2022 ambulatory [facility] Start: 11-04-2022 ambulatory [facility] Start: 09-22-2022 End: 09-23-2022 ambulatory DEZSHANICE [facility] Start: 09-13-2022 End: 09-14-2022 ambulatory DEZ [facility] Start: 09-13-2022 End: 09-13-2022 Subsequent hospital visit by physician [facility] Start: 09-10-2022 End: 09-11-2022 ambulatory DEZ [facility] Start: 09-10-2022 End: 09-10-2022 Subsequent hospital visit by physician [facility] Start: 04-19-2022 End: 04-20-2022 ambulatory DEZ [facility] Start: 11-09-2021 End: 11-09-2021 Subsequent hospital visit by physician [facility] Start: 10-27-2021 End: 10-27-2021 Subsequent hospital visit by physician [facility] Start: 10-06-2021 End: 10-06-2021 Subsequent hospital visit by physician [facility] Start: 07-24-2021 End: 07-24-2021 ambulatory Zev Hamlin Facility:[facility] Start: 07-24-2021 End: 07-24-2021 Admission to same day surgery center Zev Hamlin [facility] Start: 07-09-2021 Office consultation new/estab patient 60 min No PCP None [facility] 250 DO Work Phone: Start: 07-04-2021 End: 07-04-[address] RADHA MOE Facility: Start: 06-29-2021 End: 10-15-2021 Recurring Zev Hamlin [facility] Patient encounter status No PCP None [facility] DO Work Phone: Procedures Date Procedure Procedure Detail Performing Clinician Start: 09-13-2022 Antibody hiv-1&hiv-2 single result Dez Jackie PIANO SOUNDING BOARD MATCHER - PER DIEM CLERK Work Phone: Start: 09-13-2022 Comprehensive metabo lic panel Dez Jackie PIANO SOUNDING BOARD MATCHER - PER DIEM CLERK Work Phone: Start: 11-09-2021 Antibody hiv-1&hiv-2 single result Dez Jackie PIANO SOUNDING BOARD MATCHER - PER DIEM CLERK Work Phone: Start: 11-09-2021 Comprehensive metabo lic panel Dez Jackie PIANO SOUNDING BOARD MATCHER - PER DIEM CLERK Work Phone: Start: 10-27-2021 Urinalysis microscop ic only Dez Jackie PIANO SOUNDING BOARD MATCHER - PER DIEM CLERK Work Phone: Start: 10-27-2021 Urnls dip stick/tabl et rgnt auto w/o microscopy Dez Jackie PIANO SOUNDING BOARD MATCHER - PER DIEM CLERK Work Phone: Start: 10-06-2021 Urinalysis microscop ic only Dez Jackie PIANO SOUNDING BOARD MATCHER - PER DIEM CLERK Work Phone: Start: 10-06-2021 Urnls dip stick/tabl et rgnt auto w/o microscopy Dez Jackie PIANO SOUNDING BOARD MATCHER - PER DIEM CLERK Work Phone: section No PCP None section Zev crawford INSERTION TRANSMITTE R IN CHEST 1 Zev Hamlin Comment on above: STATES IT IS NOT A P ACEMAKER-IT MONITORS HER HEART WHEN SHE HAS ONE OF HER NEUROCARDIAC SYNCOPE EPISODES Removal of cardiac pacemaker No PCP None Removal&rplcmt wrls car stimulator pg edie Zev Hamlin NEGATED: Highlighted row has not occurred! Colonoscopy No PCP None Plan of Treatment Date Care Activity Detail Author Start: 11-30-2022 Influenza vaccination Flu vacc ine (Season Ended) [facility] Start: 01-06-2022 Screening for malign ant neoplasm of cervix [facility] Start: 12-31-2021 Influenza vaccination B ON [facility] Start: 11-25-2021 FUV, Provider: Ruddy Garcia, Status: Pen, Time: 3:00 PM FUV, Provider: Ruddy Garcia, Status: Pen, Time: 3:00 PM [facility] 250 DO Work Phone: Start: 07-15-2021 ECHO, Provider: DAJA MCCURDY [facility] ULTRASOUND 01,[id number], Status: Pen, Time: 11:30 AM ECHO, Provider: PRATIMA [facility] ULTRASOUND 01,[id number], Status: Pen, Time: 11:30 AM [facility] 250 DO Work Phone: Start: 07-15-2021 STRESS NUC, Provider : PRATIMA CASTROI NUCLEAR 01,[id number], Status: Pen, Time: 11:30 AM STRESS NUC, Provider: PRATIMA [facility] NUCLEAR 01,[id number], Status: Pen, Time: 11:30 AM [facility] [employer] [employer] 250 DO Work Phone: Start: 01-06-2013 Screening for malign ant neoplasm of cervix Pap smear [facility] Start: 01-06-2011 DTaP/Tdap/Td vaccine (1 - Tdap) DTaP/Tdap/Td vaccine (1 - Tdap) [facility] Start: 01-06-2010 Hepatitis C screening Hepatitis C sc reen [facility] Start: 2004 Depression Screen Depression Screen [facility] Start: 01-06-1998 Pneumococcal 0-64 ye ars Vaccine (1 - PCV) Pneumococcal 0-64 years Vaccine (1 - PCV) [facility] Start: 01-06-1997 COVID-19 Vaccine (1) COVID-19 Vaccin e (1) [facility] Start: 01-06-1993 Varicella vaccine (1 of 2 - 2-dose childhood series) Varicella vaccine (1 of 2 - 2-dose childhood series) [facility] Start: 1992 COVID-19 Vaccine (#1) COVID-19 Vacci ne (#1) [facility] End: 10-27-2021 Culture, Urine [facility] Work Phone: Comment on above: Once for 1 Occurrenc es starting 10/27/2021 until 10/27/2021 End: 09-13-2022 Hepatitis C RNA, quantitative, [facility] Work Phone: Comment on above: Once for 1 Occurrenc es starting 09/13/2022 until 09/13/2022 Immunizations Immunization Date Immunization Notes Care Provider Seun marc 05-14-2012 influenza, seasonal, injectable Zev Hamlin [facility] Comment on above: Early/Late Reason: P atient Not Available/Off Unit 05-14-2012 measles, mumps and rubella virus vaccine Zev Hamlin [facility] Comment on above: Early/Late Reason: P atient Not Available/Off Unit Payers Date Payer Category Payer Unknown [id number] 2019 Unknown [id number] 1992 Unknown [id number] 1992 Unknown [id number] 1992 Unknown [id number] 1992 Unknown [id number] 1992 Unknown [id number] 1992 Unknown [id number] 1992 Unknown [id number] 1992 Unknown [id number] 1992 Unknown [id number] 1992 Unknown [id number] 1992 Unknown [id number] 1959 Unknown [id number] Unknown [facility] Social History Date Type Detail Facility Start: 08-14-2013 End: 10-13-2017 Consumes alcohol occasionally Consumes alcohol occasionally -[facility] [employer] DO Work Phone: Comment on above: <1PPD; Start: 06-25-2021 Tobacco smoking status Light t obacco smoker (finding) [facility] Sex Assigned At Female [facility] Start: 08-14-2013 End: 10-13-2017 Tobacco smoking status PRIS Smokes tobacco daily [employer] Phone: History of tobacco use Cigarette Smoker B ON [employer] Phone: Start: 08-14-2013 End: 10-13-2017 Tobacco use and exposure Smokeless tobacco non-user [employer] Phone: Start: 09-11-2018 Alcohol intake Current non-dr principal biostatistician of alcohol (finding) [employer] Phone: Start: 1990 Sex Assigned At Not on file B ON [employer] Work Phone: Functional Status Date Assessment Result Facility 07-09-2021 PHQ-9 [id number] Moder ately Severe (15-19) -[facility] DO Work Phone: Hospital Discharge instructions 07-24-2021 Note Date & Type Note Facility 07-24-2021 Hospital Discharg e instructions Patient Education 07/24/2021 17:19:35 [employer] FORESTER - Post D&C, Hysteroscopy, LEEP or Essure/Laparoscopy (CUSTOM) Instructions post D & C, hysteroscopy, LEEP or Essure/laparoscopy You can resume all normal activities within 24 hours following surgery. For 24 hours: no driving, making any important decisions, drinking alcohol and a responsible adult should stay with you today. Please refrain from intercourse, douches, and tampons for the next two weeks. You can expect some vaginal spotting, cramps, or light bleeding for a week and up to ten days after surgery. This is normal. If you are soaking a pad an hour or more frequently you need to call your doctor. Your first period may not be normal, but most women resume their normal cycles within a month or two. It is helpful for your doctor if you keep a written record of your bleeding following surgery. When abnormal bleeding persists for 2-3 cycles, please bring the record to your doctor. Return to the office for post-operative check, and to go over any biopsy results at your scheduled appointment; usually two weeks following surgery. If you are uncertain if an appointment has been made, please call the office. CALL THE DOCTOR if you have severe pain, heavy bleeding, or a temperature of 100.5 or higher. Resume your regular home medication schedule as soon as you are eating a regular diet. You can either take the prescribed medications as directed for pain, or you can take over the counter pain medication such as Motrin, as indicated on the package for pain or cramps. PLEASE CALL FOR ANY PROBLEMS 07/24/2021 11:18:38 Post Op Patient Instructions - FT (Custom) Follow Up Care 06/01/2021 16:23:25 With:Zev Hamlin Address: [address], [address] [address]- Business (1) When:2 weeks Comments:Call for any problems. [facility] Chief complaint Narrative - Reported Note Date & Type Note Facility Chief complaint Narrative - Reported DOUGLAS MYLES is being seen for a consultation for. POC abnormal ECG; Dr. Boubacar Franco [facility] 250 DO Work Phone: Chief complaint Narrative - Reported Note Date & Type Note Facility Chief complaint Narrative - Reported DOUGLAS MYLES is being seen for a consultation for. POC abnormal ECG; Dr. Hamlin [facility] Work Phone: Evaluation + Plan note Note Date & Type Note Facility Evaluation + Plan note No data available for this section [facility] History of Present illness Narrative Note Date & Type Note Facility History of Present illness Narrative Patient is seen for preoperative risk assessment. She apparently presented for tubal ligation and procedure was canceled because of abnormal EKG.She has been in and out of the emergency room multiple times. Recently she was in [place] at the hospital and they also noted abnormal EKG and performed troponins which were below the normal limit for a woman. Because of this I am doubtful of coronary ischemia. Her EKG is admittedly abnormal. She does have Q waves which I believe are an electrophysiologic variant but she also has J-point elevation and in combination they create significant concern and/or alarm probably on behalf of surgery but more so her anesthesiology.Patient is a smoker. She states that from time to time she has chest pain as well as exertional shortness of breath. Because of these symptoms and her risk profile as well as the abnormal EKG I recommended a stress test with isotope imaging to evaluate for previous infarct and/or myocardial ischemia. Routine treadmill testing was entertained but because her baseline EKG demonstrates Q waves and ST-T wave abnormalities I believe that her stress test would be positive before she even started on the treadmill because of this we will use isotope imaging to add clarity.Her complaints of dyspnea also will be evaluated with the echocardiogram. I believe this also will be complementary and/or helpful because it will demonstrate whether or not she has previous infarct and/or cardiomyopathy that could be causing her complaints of dyspnea.I advised her that her test results are normal we would otherwise clear her for surgery and I will correspond with the surgeon in this regard. [facility] 250 DO Work Phone: History of Present illness Narrative Note Date & Type Note Facility History of Present illness Narrative Patient is seen for preoperative risk assessment. She apparently presented for tubal ligation and procedure was canceled because of abnormal EKG.She has been in and out of the emergency room multiple times. Recently she was in [place] at the hospital and they also noted abnormal EKG and performed troponins which were below the normal limit for a woman. Because of this I am doubtful of coronary ischemia. Her EKG is admittedly abnormal. She does have Q waves which I believe are an electrophysiologic variant but she also has J-point elevation and in combination they create significant concern and/or alarm probably on behalf of surgery but more so her anesthesiology.Patient is a smoker. She states that from time to time she has chest pain as well as exertional shortness of breath. Because of these symptoms and her risk profile as well as the abnormal EKG I recommended a stress test with isotope imaging to evaluate for previous infarct and/or myocardial ischemia. Routine treadmill testing was entertained but because her baseline EKG demonstrates Q waves and ST-T wave abnormalities I believe that her stress test would be positive before she even started on the treadmill because of this we will use isotope imaging to add clarity.Her complaints of dyspnea also will be evaluated with the echocardiogram. I believe this also will be complementary and/or helpful because it will demonstrate whether or not she has previous infarct and/or cardiomyopathy that could be causing her complaints of dyspnea.I advised her that her test results are normal we would otherwise clear her for surgery and I will correspond with the surgeon in this regard. 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 Latest Code Status on File Code Status Date Activated Date Inactivated Comments Full Code 03/06/2018 12:17 AM 03/06/2018 4:09 AM Latest Code Status on File Code Status Date Activated Date Inactivated Comments Full Code 03/06/2018 12:17 AM 03/06/2018 4:09 AM Additional Source Comments INFORMATION SOURCE (unrecogn ized section and content) DATE CREATED AUTHOR 07/14/2021 [facility] DATE CREATED AUTHOR AUTHOR'S ORGANIZ ATION 10/08/2022 Tristian Boydus [facility] DATE CREATED AUTHOR AUTHOR'S ORGANIZ ATION 12/12/2022 [facility] DATE CREATED AUTHOR AUTHOR'S ORGANIZ ATION 02/17/2023 [facility] FOR RECORDS PERTAINING TO PATIENTS WHO ARE OR HAVE BEEN ENROLLED IN A CHEMICAL DEPENDENCY/SUBSTANCEABUSE PROGRAM, SOME INFORMATION MAY BE OMITTED. This clinical summary was aggregated from multiple sources. Caution should be exercised in using it in the provision of clinical care. This summary normalizes information from multiple sources, and as a consequence, information in this document may materially change the coding, format and clinical context of patient data. In addition, data may be omitted in some cases. CLINICAL DECISIONS SHOULD BE BASED ON THE PRIMARY CLINICAL RECORDS. [facility] [employer] provides no warranty or guarantee of the accuracy or completeness of information in this document.
--- NOTE | 2023-05-22 03:32 | CT_ITS ---
[address] [address] Patient Name: SANGEETA MYLES MRN: [id number] date: 1990 Sex: F Assigned Patient Location: ER Current Patient Location: ER Accession/Order Number: [id number] Exam Date: 05/22/2023 03:57 Report Date: 05/22/2023 04:35 At the request of: BRISEIDA HANKINS Procedure: CT head/brain wo con INDICATION: 33 years old; Female. Fall down stairs. TECHNIQUE: CT Head (ax/cor/sag reformats). Ionizing radiation dose reduced via iterative reconstruction/FBP blend and body size kV/mA adjustment. Comparison: Head CT dated 04/01/2014. FINDINGS: POSTOPERATIVE CHANGES: None. BRAIN PARENCHYMA: No focal lesions. No mass effect. No midline shift or herniation. No intraparenchymal or extra-axial hemorrhage. Normal almazan/white differentiation. VENTRICLES/EXTRA-AXIAL SPACES: Normal for patient's age. SINUSES/MASTOIDS: Cyst or polyp formation with thickening in the sphenoid sinus on the left. Remaining visualized sinuses are clear. The maxillary sinuses are not entirely visible in this routine CT of the head. Mastoids and middle ears are clear. MSK: No displaced or depressed calvarial fracture is present. OTHER: No hyperdense intraluminal thrombus is seen. TECHNIQUE: CT imaging of the cervical spine was performed. IV contrast: None. Dose reduction techniques were achieved by using automated exposure control and/or adjustment of mA and/or kV according to patient size and/or use of iterative reconstruction technique. COMPARISON: Cervical CT dated 04/01/2014. FINDINGS: POSTOPERATIVE CHANGES: None. ALIGNMENT: There is nonspecific straightening of the normal cervical curve. Mild reversal is seen centered at the C5-C6 level. COMPRESSION FRACTURES: No fracture or vertebral body collapse is seen. No bone displacement is seen. No asymmetric widening of the facets is present. PREVERTEBRAL SOFT TISSUES: Normal. CRANIOCERVICAL JUNCTION: There is a normal relationship of the occipital condyles, lateral masses of C1, and articular surfaces of C2. The base of the dens and body of C2 are intact. POSTERIOR FOSSA: The cerebellar tonsils are above the foramen magnum. Disc levels: C2-C3: No disc herniation. No spinal canal or foraminal narrowing. C3-C4: No disc herniation. No spinal canal or foraminal narrowing. C4-C5: No disc herniation. No spinal canal or foraminal narrowing. C5-C6: No disc herniation. No spinal canal or foraminal narrowing. C6-C7: No disc herniation. No spinal canal or foraminal narrowing. C7-T1: Allowing for Beam hardening artifacts, the central canal and neural foramina are patent. UPPER THORACIC SPINE: Please see the dedicated thoracic examination. OTHER: There is diffuse enlargement of the thyroid gland. There is a subcentimeter hypodense nodule with a focal calcification seen in the right lobe. Recommend nonemergent thyroid ultrasound. The esophagus is patulous. CT/CT head/brain wo con IMPRESSION: 1. No acute intracranial abnormality. No hemorrhage or mass effect. 2. No cervical fracture or bone displacement. No focal disc herniation or bony stenosis. 3. Diffuse enlargement of the thyroid gland with a subcentimeter hypodense nodule and punctate calcification. Recommend nonemergent thyroid ultrasound. Please see the separate dictations of the CT the thoracic and lumbar spine. Electronically authenticated by: FLAVIA COON Date: 05/22/2023 04:35
--- NOTE | 2023-05-22 03:32 | CT_ITS ---
[address] [address] Patient Name: SANGEETA MYLES MRN: [id number] date: 1990 Sex: F Assigned Patient Location: ER Current Patient Location: ER Accession/Order Number: [id number] Exam Date: 05/22/2023 03:57 Report Date: 05/22/2023 04:35 At the request of: BRISEIDA HANKINS Procedure: CT cervical spine wo con INDICATION: 33 years old; Female. Fall down stairs. TECHNIQUE: CT Head (ax/cor/sag reformats). Ionizing radiation dose reduced via iterative reconstruction/FBP blend and body size kV/mA adjustment. Comparison: Head CT dated 04/01/2014. FINDINGS: POSTOPERATIVE CHANGES: None. BRAIN PARENCHYMA: No focal lesions. No mass effect. No midline shift or herniation. No intraparenchymal or extra-axial hemorrhage. Normal almazan/white differentiation. VENTRICLES/EXTRA-AXIAL SPACES: Normal for patient's age. SINUSES/MASTOIDS: Cyst or polyp formation with thickening in the sphenoid sinus on the left. Remaining visualized sinuses are clear. The maxillary sinuses are not entirely visible in this routine CT of the head. Mastoids and middle ears are clear. MSK: No displaced or depressed calvarial fracture is present. OTHER: No hyperdense intraluminal thrombus is seen. TECHNIQUE: CT imaging of the cervical spine was performed. IV contrast: None. Dose reduction techniques were achieved by using automated exposure control and/or adjustment of mA and/or kV according to patient size and/or use of iterative reconstruction technique. COMPARISON: Cervical CT dated 04/01/2014. FINDINGS: POSTOPERATIVE CHANGES: None. ALIGNMENT: There is nonspecific straightening of the normal cervical curve. Mild reversal is seen centered at the C5-C6 level. COMPRESSION FRACTURES: No fracture or vertebral body collapse is seen. No bone displacement is seen. No asymmetric widening of the facets is present. PREVERTEBRAL SOFT TISSUES: Normal. CRANIOCERVICAL JUNCTION: There is a normal relationship of the occipital condyles, lateral masses of C1, and articular surfaces of C2. The base of the dens and body of C2 are intact. POSTERIOR FOSSA: The cerebellar tonsils are above the foramen magnum. Disc levels: C2-C3: No disc herniation. No spinal canal or foraminal narrowing. C3-C4: No disc herniation. No spinal canal or foraminal narrowing. C4-C5: No disc herniation. No spinal canal or foraminal narrowing. C5-C6: No disc herniation. No spinal canal or foraminal narrowing. C6-C7: No disc herniation. No spinal canal or foraminal narrowing. C7-T1: Allowing for Beam hardening artifacts, the central canal and neural foramina are patent. UPPER THORACIC SPINE: Please see the dedicated thoracic examination. OTHER: There is diffuse enlargement of the thyroid gland. There is a subcentimeter hypodense nodule with a focal calcification seen in the right lobe. Recommend nonemergent thyroid ultrasound. The esophagus is patulous. CT/CT cervical spine wo con IMPRESSION: 1. No acute intracranial abnormality. No hemorrhage or mass effect. 2. No cervical fracture or bone displacement. No focal disc herniation or bony stenosis. 3. Diffuse enlargement of the thyroid gland with a subcentimeter hypodense nodule and punctate calcification. Recommend nonemergent thyroid ultrasound. Please see the separate dictations of the CT the thoracic and lumbar spine. Electronically authenticated by: FLAVIA COON Date: 05/22/2023 04:35
--- NOTE | 2023-05-22 03:32 | CT_ITS ---
The [address] [address] Patient Name: SANGEETA MYLES MRN: [id number] date: 1990 Sex: F Assigned Patient Location: ER Current Patient Location: ER Accession/Order Number: [id number] Exam Date: 05/22/2023 03:57 Report Date: 05/22/2023 04:54 At the request of: BRISEIDA HANKINS Procedure: CT lumbar spine wo con EXAM: CT thoracic spine wo con, CT lumbar spine wo con HISTORY: fall injury down several stairs injuring neck. COMPARISON: None available TECHNIQUE: Multiple axial views CT thoracic and lumbar spine with IV contrast. Coronal sagittal reformats. FINDINGS: Thoracic: No vertebral body height loss, acute fracture line, or traumatic subluxation. Unremarkable thoracic alignments. No severe bony canal narrowing. Sclerotic bony island at T8 vertebral body. A partially visualized left thyroid lobe nodule measuring 1.1 cm. Small hiatal hernia. 1.8 cm left and 1.4 cm right adrenal hypodense nodules are characteristic of lipid rich adenomas. Lumbar: No vertebral body height loss, acute fracture line, or traumatic subluxation. Unremarkable lumbar alignment. No severe bony canal narrowing. CT/CT lumbar spine wo con IMPRESSION: No CT evidence for acute traumatic thoracic or lumbar bony injury. Please see above for additional findings. Electronically authenticated by: NICHOLAS MUNOZ Date: 05/22/2023 04:54
--- NOTE | 2023-05-22 03:32 | CT_ITS ---
The [address] [address] Patient Name: SANGEETA MYLES MRN: [id number] date: 1990 Sex: F Assigned Patient Location: ER Current Patient Location: ER Accession/Order Number: [id number] Exam Date: 05/22/2023 03:57 Report Date: 05/22/2023 04:54 At the request of: BRISEIDA HANKINS Procedure: CT thoracic spine wo con EXAM: CT thoracic spine wo con, CT lumbar spine wo con HISTORY: fall injury down several stairs injuring neck. COMPARISON: None available TECHNIQUE: Multiple axial views CT thoracic and lumbar spine with IV contrast. Coronal sagittal reformats. FINDINGS: Thoracic: No vertebral body height loss, acute fracture line, or traumatic subluxation. Unremarkable thoracic alignments. No severe bony canal narrowing. Sclerotic bony island at T8 vertebral body. A partially visualized left thyroid lobe nodule measuring 1.1 cm. Small hiatal hernia. 1.8 cm left and 1.4 cm right adrenal hypodense nodules are characteristic of lipid rich adenomas. Lumbar: No vertebral body height loss, acute fracture line, or traumatic subluxation. Unremarkable lumbar alignment. No severe bony canal narrowing. CT/CT thoracic spine wo con IMPRESSION: No CT evidence for acute traumatic thoracic or lumbar bony injury. Please see above for additional findings. Electronically authenticated by: NICHOLAS MUNOZ Date: 05/22/2023 04:54
--- NOTE | 2023-05-22 03:33 | ED.FALL1 ---
HPI - Fall General Chief Complaint: Fall Stated Complaint: fall Time Seen by Provider: 05/22/23 03:29 Source: patient Mode of arrival: walk-in Limitations: no limitations History of Present Illness HPI Narrative: patient had went to the bathroom and then she fell walking down the stairs. States she rolled over several times. No LOC. Was not planning on coming to the hospital but decided to come due to neck pain. No extremity pain,numbness or weakness. States vision was blurry for short time but cleared up. No dizziness, nausea. Denies chest or abdominal pain. No injury to her extremities or hips. MD complaint: Reports fall Related Data Home Medications Medication Instructions Recorded Confirmed bupropion HCl 300 mg 24 hr tablet, 300 mg PO DAILY 11/09/22 11/09/22 extended release ibuprofen 800 mg tablet mg 11/09/22 trazodone 100 mg tablet mg 11/09/22 no medications 05/22/23 Previous Rx's Medication Instructions Recorded nystatin 100,000 unit/mL oral 400,000 unit (4 mL) buccal QID 14 10/10/22 suspension days #224 mL sulfamethoxazole 800 1 tab PO BID 5 days #10 tabs 10/10/22 mg-trimethoprim 160 mg tablet (Bactrim DS) ketorolac 10 mg tablet 10 mg PO TID PRN pain #12 tabs 01/17/23 benzonatate 100 mg capsule 100 mg PO TID PRN cough #20 caps 01/27/23 doxycycline hyclate 100 mg capsule 100 mg PO BID 10 days #20 caps 01/27/23 Allergies Allergy/AdvReac Type Severity Reaction Status Date / Time No Known Drug Allergies Allergy Verified 05/22/23 03:22 Review of Systems ROS Status of ROS 10 or more systems reviewed and unremarkable except as noted in history and below [facility] Social History Smoking status: Current every day smoker Exam Constitutional Vital Signs, click to edit/add: Last Vital Signs Temp 97.4 F L 05/22/23 03:18 Pulse 68 05/22/23 03:18 Resp 16 05/22/23 03:18 BP 129/73 05/22/23 03:18 Pulse Ox 99 05/22/23 03:18 O2 Del Method Room Air 05/22/23 03:18 Common normals: no apparent distress, average body habitus, oriented x3, no limitations, healthy appearing, alert and well nourished Eye Common normals: EOMs intact bilaterally and conjunctivae normal Chest Common normals: inspection of chest normal and palpation of chest normal Respiratory Common normals: normal respiratory effort, no retractions and no use of accessory muscles Cardio Common normals: regular rate, regular rhythm, S1 normal heart sound and S2 normal heart sound GI Common normals: Normal to inspection, nondistended, normoactive bowel sounds present, soft to palpation and non-tender Back & Pelvis Common normals: no CVA tenderness and no thoracic nor lumbar tenderness Other: L-spine and C-spine tender Extremity Common normals: normal to inspection and full ROM Neuro Common normals: oriented x3, CN's II-XII intact bilaterally, moves all extremities and no focal motor deficits Psych Appearance: grossly normal Course Vital Signs Vital signs: Vital Signs Temperature 97.4 F L 05/22/23 03:18 Pulse Rate 68 05/22/23 03:18 Respiratory Rate 16 05/22/23 03:18 Blood Pressure 129/73 05/22/23 03:18 Pulse Oximetry 99 05/22/23 03:18 Oxygen Delivery Method Room Air 05/22/23 03:18 Temperature 97.4 F L 05/22/23 03:18 Pulse Rate 68 05/22/23 03:18 Respiratory Rate 16 05/22/23 03:18 Blood Pressure 129/73 05/22/23 03:18 Pulse Oximetry 99 05/22/23 03:18 Oxygen Delivery Method Room Air 05/22/23 03:18 MDM - Fall MDM Narrative Medical decision making narrative: patient presents after a fall down her stairs complaining of neck pain. Found to have C-spine and L-spine tenderness. labs demonstrated hypokalemia and UTI. Diagnostic studies all neg. Patient treated with potassium supplement and macrobid. Discharged home in stable condition to follow up with her PCP Lab Data Labs: Lab Results 05/22/23 05/22/23 Range/Units 03:50 03:54 WBC 4.5 (4.0-11.0) 10^3/uL RBC 3.50 L (4.20-5.40) 10^6/uL Hgb 13.0 (12.0-16.0) g/dL Hct 37.7 (36.0-48.0) % MCV 107.7 H (81.0-99.0) fL MCH 37.1 H (26.7-34.0) pg MCHC 34.5 (29.9-35.2) g/dL RDW 18.9 H (11.0-15.0) % Plt Count 136 L (150-450) 10^3/uL MPV 9.5 (9.5-13.5) fL Neut % (Auto) 55.3 (43.0-75.0) % Lymph % (Auto) 39.9 (20.5-60.0) % [place] % (Auto) 4.4 (1.7-12.0) % Eos % (Auto) 0.0 L (0.9-7.0) % Baso % (Auto) 0.0 L (0.2-2.0) % Neut # (Auto) 2.5 (1.4-6.5) 10^3/uL Lymph # (Auto) 1.8 (1.2-3.8) 10^3/uL [place] # (Auto) 0.2 L (0.3-0.8) 10^3/uL Eos # (Auto) 0.0 (0.0-0.7) 10^3/uL Baso # (Auto) 0.0 (0.0-0.1) 10^3/uL Abs Immat Gran (auto) 0.02 (0.00-0.03) 10^3/uL Imm/Tot Granulo (auto) 0.4 (0.0-0.5) % Sodium 144 (136-145) mmol/L Potassium 2.8 L* (3.5-5.1) mmol/L Chloride 106 (98-107) mmol/L Carbon Dioxide 31.3 (21.0-32.0) mmol/L Anion Gap 9.5 BUN 14.0 (7.0-18.0) mg/dL Creatinine 0.80 (0.55-1.02) mg/dL Est GFR ( Amer) >60 (>=60) Est GFR (Non-Af Amer) >60 (>=60) BUN/Creatinine Ratio 17.5 Glucose 107 H (74-106) mg/dL Calcium 9.8 (8.5-10.1) mg/dL Total Bilirubin 1.4 H (0.2-1.0) mg/dL AST 44 H (15-37) U/L ALT 61 H (14-59) U/L Alkaline Phosphatase 66 (46-116) U/L Total Protein 6.9 (6.4-8.2) g/dL Albumin 3.9 (3.4-5.0) g/dL Globulin 3.0 g/dL Albumin/Globulin Ratio 1.3 Urine Color Lt. yellow (YELLOW) Urine Clarity Clear (CLEAR) Urine pH 6.5 (5.0-9.0) Ur Specific Barton 1.020 (1.005-1.025) Urine Protein Negative (NEG/TRACE) mg/dL Urine Glucose (UA) Negative (NEGATIVE) mg/dL Urine Ketones Trace A (NEGATIVE) mg/dL Urine Occult Blood Negative (NEGATIVE) Urine Nitrite Positive A (NEGATIVE) Urine Bilirubin Small A (NEGATIVE) Urine Urobilinogen 4.0 A (0.2-1.0) EU/dL Ur Leukocyte Esterase Moderate A (NEGATIVE) Urine RBC 0-2 (0-2) #/HPF Urine WBC 5-10 A (NONE SEEN) #/HPF Ur Squamous Epith Cells Few A (NONE/RARE) #/LPF Urine Crystals None seen (None Seen) #/HPF Urine Bacteria Small A (NONE SEEN) #/HPF Urine Casts None seen (NONE SEEN) #/LPF Urine Mucus None seen (NONE SEEN) Ur Culture Indicated? Yes Imaging Data Chest x-ray: Radiologist's impression: ITS Impressions Cervical Spine CT 05/22/23 03:32 IMPRESSION: 1. No acute intracranial abnormality. No hemorrhage or mass effect. 2. No cervical fracture or bone displacement. No focal disc herniation or bony stenosis. 3. Diffuse enlargement of the thyroid gland with a subcentimeter hypodense nodule and punctate calcification. Recommend nonemergent thyroid ultrasound. Please see the separate dictations of the CT the thoracic and lumbar spine. Electronically authenticated by: FLAVIA COON Date: 05/22/2023 04:[address] 05/22/23 03:32 IMPRESSION: 1. No acute intracranial abnormality. No hemorrhage or mass effect. 2. No cervical fracture or bone displacement. No focal disc herniation or bony stenosis. 3. Diffuse enlargement of the thyroid gland with a subcentimeter hypodense nodule and punctate calcification. Recommend nonemergent thyroid ultrasound. Please see the separate dictations of the CT the thoracic and lumbar spine. Electronically authenticated by: FLAVIA COON Date: 05/22/2023 04:[address] 05/22/23 03:32 IMPRESSION: No CT evidence for acute traumatic thoracic or lumbar bony injury. Please see above for additional findings. Electronically authenticated by: NICHOLAS MUNOZ Date: 05/22/2023 04:[address] 05/22/23 03:32 IMPRESSION: No CT evidence for acute traumatic thoracic or lumbar bony injury. Please see above for additional findings. Electronically authenticated by: NICHOLAS MUNOZ Date: 05/22/2023 04:54 Discharge Plan Discharge Chief Complaint: Fall Clinical Impression: UTI (urinary tract infection), Cervical strain, Head injury Patient Disposition: Home, Self-Care Prescriptions / Home Meds: No Action nystatin 100,000 unit/mL suspension 400,000 unit buccal QID 14 Days Qty: 224 0RF Rx Instructions: administer 1/2 of dose in each side of the mouth sulfamethoxazole-trimethoprim [Bactrim DS] 800-160 mg tablet 1 tab PO BID 5 Days Qty: 10 0RF bupropion HCl 300 mg tablet extended release 24 hr 300 mg PO DAILY ibuprofen 800 mg tablet trazodone 100 mg tablet ketorolac 10 mg tablet 10 mg PO TID PRN (Reason: pain) Qty: 12 0RF no medications doxycycline hyclate 100 mg capsule 100 mg PO BID 10 Days Qty: 20 0RF benzonatate 100 mg capsule 100 mg PO TID PRN (Reason: cough) Qty: 20 0RF Instructions: Cervical Strain (ED), Urinary Tract Infection in Women (DC), Head Injury (DC) Stand Alone Forms: Portal Instructions Referrals: Physician,Non-Staff, MD [Primary Care Provider] - 1 week
[2023-05-22 04:01] LABS: Bilirubin Urine SMALL (NEGATIVE); Blood Urine NEGATIVE (NEGATIVE); Clarity Urine CLEAR (CLEAR); Color Urine LT. YELLOW (YELLOW); Glucose Urine UA NEGATIVE (NEGATIVE); Ketones Urine TRACE mg/dL (NEGATIVE); Leukocyte Esterase Urine MODERATE (NEGATIVE); Nitrite Urine POSITIVE (NEGATIVE); Protein Urine NEGATIVE (NEG/TRACE); pH Urine 6.5 (5.0-9.0)
[2023-05-22 04:02] LABS: Urine Microscopic Indicated YES
[2023-05-22 04:08] LABS: Bacteria Urine SMALL #/HPF (NONE SEEN); Cast Seen? NONE SEEN #/LPF (NONE SEEN); Crystals Seen? None Seen #/HPF (None Seen); Mucus Urine NONE SEEN (NONE SEEN); RBC Urine 0-2 #/HPF (0-2); Squamous Epithelial Cell Urine FEW #/LPF (NONE/RARE); Urine Culture Indicated YES
[2023-05-22 04:14] LABS: Alanine Aminotransferase 61 U/L (14-59); Albumin Globulin Ratio 1.3; Albumin Level 3.9 g/dL (3.4-5.0); Alkaline Phosphatase 66 U/L (46-116); Anion Gap 9.5; Aspartate Amino Transferase 44 U/L (15-37); BUN Creatinine Ratio 17.5; Bilirubin Total 1.4 mg/dL (0.2-1.0); Calcium 9.8 mg/dL (8.5-10.1); Carbon Dioxide 31.3 mmol/L (21.0-32.0); Chloride 106 mmol/L (98-107); Estimated GFR (African America >60 (>=60); Estimated GFR (Non-African Ame >60 (>=60); Glucose 107 mg/dL (74-106); Sodium 144 mmol/L (136-145); Total Protein 6.9 g/dL (6.4-8.2)
[2023-05-22 04:16] LABS: Hematocrit 37.7 % (36.0-48.0); Immature Granulocytes Abs Auto 0.02 10^3/uL (0.00-0.03); Immature Granulocytes Pct Auto 0.4 % (0.0-0.5); Lymphocytes Absolute Auto 1.8 10^3/uL (1.2-3.8); Lymphocytes Percent Auto 39.9 % (20.5-60.0); Mean Corpuscular HGB Conc 34.5 g/dL (29.9-35.2); Mean Corpuscular Hemoglobin 37.1 pg (26.7-34.0); Mean Corpuscular Volume 107.7 fL (81.0-99.0); Mean Platelet Volume 9.5 fL (9.5-13.5); Monocytes Absolute Auto 0.2 10^3/uL (0.3-0.8); Monocytes Percent Auto 4.4 % (1.7-12.0); Neutrophils Absolute Auto 2.5 10^3/uL (1.4-6.5); Neutrophils Percent Auto 55.3 % (43.0-75.0); Platelet Count 136 10^3/uL (150-450); Red Cell Distribution Width 18.9 % (11.0-15.0); White Blood Count 4.5 10^3/uL (4.0-11.0)
[2023-05-22 04:17] LABS: Potassium 2.8 mmol/L (3.5-5.1)
[2023-05-22] MEDS: POTASSIUM CHLORIDE 10 MEQ ER TABLET 40 MEQ PO (04:41)
[2023-05-22] MEDS: NITROFURANTOIN MONOHYD/MAC-CRST 100 MG CAPSULE PO (05:29)
== END 2023-05-22 05:34 | disposition home or self-care (01) ==
PROVIDERS: Emergency Provider Internal Medicine
DX: S16.1XXA Strain of muscle, fascia and tendon at neck level, initial encounter (principal); S09.90XA Unspecified injury of head, initial encounter; N39.0 Urinary tract infection, site not specified; E87.6 Hypokalemia; W10.9XXA Fall (on) (from) unspecified stairs and steps, initial encounter; Z79.899 Other long term (current) drug therapy; F17.210 Nicotine dependence, cigarettes, uncomplicated
CPT/HCPCS: 36415; 70450; 72125; 72128; 72131; 80053; 81001; 85025; 87086; 87150; 87186; 99284

== ENCOUNTER 2023-09-06 18:27 | Emergency (ER) | payer OTHER, SELFPAY ==
--- OUTSIDE RECORDS SUMMARY | 2023-09-06 18:45 | XMS_ITS | CCD ---
Author Organization [facility] Care Team Providers Care Electrical Development Engineer Name Role Phone None, No PCP Unavailable Unavailable Unavailable Unavailable PAY, DR GARCIA Consulting Unavailable BRISEIDA HANKINS Attending Unavailable MAGEN MOJICA Primary Care Unavailable BRISEIDA HANKINS Admitting Unavailable BRISEIDA HANKINS Consulting Unavailable ANTONINA DURON Consulting Unavailable NONE, XXXX Primary Care Physician Unavailab le Unavailable Primary Care Provider Unavailabl e Unavailable Primary Care Provider Unavailabl e JACKIE, DEZ Referring Unavailable JACKIE, DEZ Referring [...] Unavailable ELVIS, P. EDWAR Primary Care Unavailable Adolfo Hernandez Attending Unavailable NO PCP, NO PCP Primary Care Unavailable FLAVIA WOODRUFF Attending Unavailab PB Penn Referring Unavailable [facility] Primary Care Unava ilable Medications Current Medications Medication Drug Class(es) Dates Sig (Normalized) Sig (Original) acetaminophen 325 mg / oxyCODONE hydrochloride 5 mg oral tablet (1 source) Opioid Agonist Start: 07-24-2021 End: 07-26-2021 Percocet 325 mg-5 mg Tab 1 tab(s), Oral, q6hr for pain for 2 day(s), 7 tab(s), Refill(s) 0, [facility]/pharmacy #[id number], 161, cm, 06/25/21 13:03:00 EST, Height/Length Dosing, 72, kg, 06/25/21 13:03:00 EST, Weight Dosing Start Date: 07/24/21 Stop Date: 07/26/21 Status: Ordered albuterol 0.83 mg/ml inhalation solution (3 sources) beta2-Adrenergic Agonist Start: 06-25-2021 take 2.5 [...] by mouth 2 times daily 0 Active Xgkcssnw-Rnd-Ib-FA ( VITAMINS PO) (5 sources) Xvcdiwzo-Gnh-Pa-FA ( VITAMINS PO) Take by mouth 0 Active Completed/Discontinued Medications Medication Drug Class(es) Dates Sig (Normalized) Sig (Original) No Reported Medications (2 sources) No Reported Medi cations Quantity: 0 Refills: 0 Ordered: 09-Jul-2021 DO Active Problems Active Problems Problem Classification Problem Date Documented Da te Episodic/Chronic Abdominal pain (2 sources) Unspecified abdominal pain; Translations: [Unspecified abdominal pain] Onset: 12-10-2022 Episodic Anxiety disorders (6 sources) Anxiety disorder; Translations: [Anxiety disorder, unspecified] [...] intractable, without status epilepticus] Onset: 08-15-2013 Chronic Fluid and electrolyte disorders (1 source) Hypokalemia; Translations: [Hypokalemia] Onset: 08-19-2023 Episodic Genitourinary symptoms and ill-defined conditions (2 sources) Dysuria; Translations: [Dysuria] Onset: 12-10-2022 Episodic Hepatitis (5 sources) Viral hepatitis C; Translations: [Unspecified viral hepatitis C without hepatic coma] Onset: 07-24-2021 Episodic Miscellaneous mental health disorders (2 sources) Primary insomnia; Translations: [Primary insomnia] Onset: 11-04-2022 Chronic Mood disorders (2 sources) Mood disorders; Translations: [Depression, unspecified] Onset: 11-04-2022 Nausea and vomiting (1 source) Vomiting Onset: 08-19-2023 Episodic Nonspecific chest pain (2 sources) Chest pain; Translations: [Chest pain, unspecified] Episodic Other circulatory disease (3 sources) Low blood pressure 06-25-2021 Episodic Other circulatory disease (1 source) Hypotension, unspecified; Translations: [Hypotension, unspecified] Onset: 08-19-2023 Episodic Other complications of (3 sources) Twin 02-06-2018 Episodic Other female genital disorders (2 sources) Other specified noninflammatory disorders of vagina; Translations: [Other specified noninflammatory disorders of vagina] Onset: 09-22-2022 Episodic Other female genital disorders (1 source) Noninflammatory disorder of the vagina; Translations: [Other specified noninflammatory disorders of vagina] Onset: 07-06-2023 Episodic Other gastrointestinal disorders (1 source) Diarrhea Onset: 08-19-2023 Episodic Other lower respiratory disease (2 sources) Dyspnea; Translations: [Other respiratory abnormalities] Episodic Other non-traumatic joint disorders (3 sources) Pain in left shoulder; Translations: [PAIN IN LEFT SHOULDER] Onset: 07-04-2021 Episodic Other nutritional; endocrine; and metabolic disorders (2 sources) Overweight in adulthood with body mass index of 25 or more but less than 30; Translations: [Overweight] Episodic Other upper respiratory disease (1 source) Pain in throat Onset: 08-19-2023 Episodic Other upper respiratory infections (1 source) Chronic sinusitis; Translations: [Chronic sinusitis, unspecified] Onset: 07-06-2023 Chronic Residual codes; unclassified (1 source) Pelvic organ finding; Translations: [Acquired absence of other genital organ(s)] Onset: 07-24-2021 Episodic Residual codes; unclassified (3 sources) Tobacco user 05-03-2012 Episodic Comment on above: Added secondary to s ocial history documentation. Sprains and strains (1 source) Strain of unspecified muscle, fascia and tendon at shoulder and upper arm level, left arm, initial encounter; Translations: [STRN UNS MSC F TND SHLDR UA LA INIT] Onset: 07-08-2021 Episodic Substance-related disorders (10 sources) Smoker; Translations: [Tobacco use disorder] Onset: 07-24-2021 Chronic Comment on above: <1PPD; Added secondary to d ocumentation in Social History. Syncope (3 sources) Cardiac syncope 07-13-2013 Episodic Unclassified (3 sources) History of clinical finding in subject 06-25-2021 Unclassified (2 sources) Tobacco use during ( Confirmed ) 05-12-2012 Unclassified (1 source) Alcohol use, unspecified, uncomplicated; Translations: [Alcohol use, unspecified, uncomplicated] Onset: 11-04-2022 Unclassified (1 source) Tobacco use during 05-12-2012 Unclassified (1 source) SORE THROAT, CONGESTION Onset: 08-19-2023 Viral infection (1 source) Viral disease; Translations: [Other viral agents as the cause of diseases classified elsewhere] Onset: 07-06-2023 Episodic Past or Other Problems Problem Classification Problem [...] use, unspecified, uncomplicated] Onset: 09-13-2022 Episodic Unclassified (9 sources) Onset: 04-15-2010 Resolved: 08-30-2018 11-07-2014 Unclassified (1 source) Exposure to 2019 novel coronavirus; Translations: [Contact with and (suspected) exposure to COVID19] Unclassified (1 source) Alcohol use, unspecified, uncomplicated; Translations: [Alcohol use, unspecified, uncomplicated] Onset: 11-04-2022 Results Test Name Value Interpretation Reference Range Facility CBC AND AUTO DIFFon 08-19-19 24 Anisocytosis Ql (Bld) 2+ Abnormal NONE [facility] Comment on above: Performed By: #### C BRUCE, 3, CBCA, #### [facility] ([id number]) [address] [place] [address] 79260 Erythrocyte distribution width (RBC) [Ratio] 23.1 % High 11.5-15.0 [facility] Comment on above: Performed By: #### C BRUCE, 3039-3, CBCA, #### [facility] ([id number]) [address] [place] [address] 82440 Hematocrit (Bld) [Volume fraction] 26.3 % Low 35-47 [facility] Comment on above: Performed By: #### C BRUCE, 3040-3, CBCA, 1987-08, #### [facility] ([id number]) [address] [place] [address] 24565 Hemoglobin (Bld) [Mass/Vol] 9.3 g/dL Low 11.7-15.5 [facility] Comment on above: Performed By: #### Ethan BARRERA, 3039-07, CBCA, 1987-08, #### [facility] ([id number]) [address] [place] [address] 41558 Lymphocytes (Bld) [#/Vol] 1.0 10*3/uL Normal 1.0-3.5 [facility] Comment on above: Performed By: #### C BRUCE, 3039-07, CBCA, 1987-08, #### [facility] ([id number]) [address] [place] [address] 29990 Lymphocytes/100 WBC (Bld) 48.0 % Normal [facility] Comment on above: Performed By: #### Ethan BARRERA, 3039-07, CBCA, 1987-08, #### [facility] ([id number]) [address] [place] [address] 29176 MCH (RBC) [Entitic mass] 42.6 pg High 27-34 [facility] Comment on above: Performed By: #### Ethan BARRERA, 3039-07, CBCA, 1987-08, #### [facility] ([id number]) [address] [place] [address] 13769 MCHC (RBC) [Mass/Vol] 35.5 g/dL Normal 32-36 [facility] Comment on above: Performed By: #### Ethan BARRERA, 3039-07, CBCA, 1987-08, #### [facility] ([id number]) [address] [place] [address] 38129 MCV (RBC) [Entitic vol] 120 fL High 80-100 [facility] Comment on above: Performed By: #### C BRUCE, 3039-3, CBCA, 1987-08, #### [facility] ([id number]) [address] [place] [address] 86993 Monocytes (Bld) [#/Vol] 0.2 10*3/uL Normal 0-0.9 [facility] Comment on above: Performed By: #### C BRUCE, 3039-07, CBCA, 1987-08, #### [facility] ([id number]) [address] [place] [address] 22429 Monocytes/100 WBC (Bld) 7.0 % Normal [facility] Comment on above: Performed By: #### Ethan BARRERA, 3039-07, CBCA, 1987-08, #### [facility] ([id number]) [address] [place] [address] 50841 Neutrophils (Bld) [#/Vol] 1.0 10*3/uL Low 1.5-6.6 [facility] Comment on above: Performed By: #### Ethan BARRERA, 3039-07, CBCA, 1987-08, #### [facility] ([id number]) [address] [place] [address] 56732 Platelet mean volume (Bld) [Entitic vol] 8.3 fL Normal 7-12 [facility] Comment on above: Performed By: #### C BRUCE, 3039-3, CBCA, 1987-08, #### [facility] ([id number]) [address] [place] [address] 19879 Platelets (Bld) [#/Vol] 122 10*3/uL Low 150-450 [facility] Comment on above: Performed By: #### Ethan BARRERA, 3039-07, CBCA, 1987-08, #### [facility] ([id number]) [address] [place] [address] 04953 RBC COUNT 2.19 X10E12/L Low 3.80-5.20 [facility] Comment on above: Performed By: #### C BRUCE, 3039-3, CBCA, 1987-08, #### [facility] ([id number]) [address] [place] [address] 60080 SEG NEUTROPHIL 45.0 % Normal [facility] Comment on above: Performed By: #### Ethan BARRERA, 3039-07, CBCA, 1987-08, #### [facility] ([id number]) [address] [place] [address] 48060 TEARDROP 1+ Abnormal NONE [facility] Comment on above: Performed By: #### Ethan BARRERA, 3039-07, CBCA, 1987-08, #### [facility] ([id number]) [address] [place] [address] 34258 WBC (Bld) [#/Vol] 2.2 10*3/uL Low 4.0-11.0 [facility] Comment on above: Performed By: #### C BRUCE, 3039-07, CBCA, 1987-08, #### [facility] ([id number]) [address] [place] [address] 95870 COMPREHENSIVE METABOLIC PANE Elvin 08-19-2023 Albumin [Mass/Vol] 3.3 g/dL Normal 3.2-5.3 [facility] Comment on above: Performed By: #### Ethan BARRERA, 3039-07, CBCA, 1987-08, #### [facility] ([id number]) [address] [place] [address] 28145 ALP [Catalytic activity/Vol] 50 U/L Normal 39-130 [facility] Comment on above: Performed By: #### C BRUCE, 3039-3, CBCA, 1987-08, #### [facility] ([id number]) [address] [place] [address] 91131 ALT [Catalytic activity/Vol] 26 U/L Normal 0-31 [facility] Comment on above: Performed By: #### Ethan BARRERA, 3039-07, CBCA, 1987-08, #### [facility] ([id number]) [address] [place] [address] 27760 Anion gap [Moles/Vol] 5 mmol/L Normal 5-15 [facility] Comment on above: Performed By: #### C BRUCE, 3039-07, CBCA, 1987-08, #### [facility] ([id number]) [address] [place] [address] 63950 AST [Catalytic activity/Vol] 29 U/L Normal 0-41 [facility] Comment on above: Performed By: #### C BRUCE, 3039-07, CBCA, 1987-08, #### [facility] ([id number]) [address] [place] [address] 67690 Bilirubin [Mass/Vol] 1.2 mg/dL Normal 0.3-1.2 [facility] Comment on above: Performed By: #### Ethan BARRERA, 3039-07, CBCA, 1987-08, #### [facility] ([id number]) [address] [place] [address] 96733 Calcium [Mass/Vol] 9.0 mg/dL Normal 8.5-10.5 [facility] Comment on above: Performed By: #### C BRUCE, 3039-3, CBCA, 1987-08, #### [facility] ([id number]) [address] [place] [address] 85770 Chloride [Moles/Vol] 107 mmol/L Normal 98-109 [facility] Comment on above: Performed By: #### C BRUCE, 3, CBCA, 1987-08, #### [facility] ([id number]) [address] [place] [address] 62121 CO2 [Moles/Vol] 27 mmol/L Normal 22-32 [facility] Comment on above: Performed By: #### C BRUCE, 3039-07, CBCA, 1987-08, #### [facility] ([id number]) [address] [place] [address] 42126 Creatinine [Mass/Vol] 0.53 mg/dL Normal 0.40-1.00 [facility] Comment on above: Result Comment: METH OD TRACEABLE TO IDMS STANDARD Performed By: #### C BRUCE, 3039-07, CBCA, 1987-08, #### [facility] ([id number]) [address] [place] [address] 50113 eGFR (CKD-EPI) NON-RACE DEPENDENT >90 Normal >59 [facility] Comment on above: Result Comment: Reported eGFR is based on the CKD-EPI 2020 equation that does not use a race coefficient. Performed By: #### C BRUCE, 3, CBCA, #### [facility] ([id number]) [address] [place] [address] 41133 Glucose [Mass/Vol] 94 mg/dL Normal 65-99 [facility] Comment on above: Performed By: #### C BRUCE, 3039-07, CBCA, 1987-08, #### [facility] ([id number]) [address] [place] [address] 67795 Potassium [Moles/Vol] 3.2 mmol/L Low 3.5-5.0 [facility] Comment on above: Performed By: #### C BRUCE, 3, CBCA, 1987-08, #### [facility] ([id number]) [address] [place] [address] 66519 Protein [Mass/Vol] 5.5 g/dL Low 6.0-8.0 [facility] Comment on above: Performed By: #### C BRUCE, 3039-, CBCA, 1987-08, #### [facility] ([id number]) [address] [place] [address] 70815 Sodium [Moles/Vol] 139 mmol/L Normal 134-146 [facility] Comment on above: Performed By: #### C BRUCE, 3039-07, CBCA, 1987-08, #### [facility] ([id number]) [address] [place] [address] 07726 Urea nitrogen [Mass/Vol] 11 mg/dL Normal 5-23 [facility] Comment on above: Performed By: #### C BRUCE, 3039-07, CBCA, 1987-08, #### [facility] ([id number]) [address] [place] [address] 62864 CRP [Mass/Vol]on 08-19-2023 C REACTIVE PROTEIN 0.9 mg/dL High 0.000-0.744 [facility] Comment on above: Performed By: #### C BRUCE, 3039-07, CBCA, 1987-08, #### [facility] ([id number]) [address] [place] [address] 86287 DRUG SCREEN, URINEon 024 AMPHETAMINE/METHAMP Negative Normal NEG [facility] Comment on above: Result Comment: AMPH /METH screening cut off = 1000 ng/mL Performed By: #### A HP #### [facility] ([id number]) [address] [place] [address], [address] [place] [address] #### [id number] #### [facility] ([id number]) [address] [place] [address] 10011 BARBITURATES Negative Normal NEG [facility] Comment on above: Result Comment: Ana iturates screening cut off value = 200 ng/mL Performed By: #### A HP #### [facility] ([id number]) [address], [address] [place] [address] #### 53729-1 #### [facility] ([id number]) [address] [place] [address] 08529 BENZODIAZEPINES Negative Normal NEG [facility] Comment on above: Result Comment: Jeramie odiazepines screening cut off value = 200 ng/mL Performed By: #### A HP #### [facility] ([id number]) [address], [address] [place] [address] #### 63847-6 #### [facility] ([id number]) [address] [place] [address] 58434 CANNABINOIDS Positive Abnormal NEG [facility] Comment on above: Result Comment: Conf irmation available upon request. Cannabinoids/THC screening cut off value = 50 ng/mL Performed By: #### A HP #### [facility] ([id number]) [address], [address] [place] [address] #### 72156-4 #### [facility] ([id number]) [address] [place] [address] 59080 COCAINE METABOLITE Negative Normal NEG [facility] Comment on above: Result Comment: Coca ine screening cut off value = 300 ng/mL Performed By: #### A HP #### [facility] ([id number]) [address], [address] [place] [address] #### 86676-4 #### [facility] ([id number]) [address] [place] [address] ECSTASY Negative Normal NEG [facility] Comment on above: Result Comment: Ecst asy screening cut off value = 500 ng/mL This report is intended for use in clinical monitoring or management of patients. Performed By: #### A HP #### [facility] ([id number]) [address] [place] [address], [address] [address] #### 56214-9 #### [facility] ([id number]) [address] [place] [address] 80341 METHADONE Negative Normal NEG [facility] Comment on above: Result Comment: Meth adone screening cut off value = 300 ng/mL. Performed By: #### A HP #### [facility] ([id number]) [address] [place] [address], [address] [address] #### 09903-3 #### [facility] ([id number]) [address] [place] [address] 80768 OPIATES Negative Normal NEG [facility] Comment on above: Result Comment: Opia chalo screening cut off value = 300 ng/mL NOTE: This test is used for the detection of codeine, hydrocodone (>1000 ng/mL), morphine and hydromorphone (>900 ng/mL) in urine. Performed By: #### A HP #### [facility] ([id number]) [address] [place] [address], [address] [place] [address] #### 18594-5 #### [facility] ([id number]) [address] [place] [address] 45458 OXYCODONE Negative Normal NEG [facility] Comment on above: Result Comment: Oxyc odone screening cut off value = 300 ng/mL NOTE: This test is used for the detection of oxycodone and oxymorphone in urine. Performed By: #### A HP #### [facility] ([id number]) [address] [place] [address], [address] [place] [address] #### 96695-5 #### [facility] ([id number]) [address] [place] [address] 96555 PHENCYCLIDINE Negative Normal NEG [facility] Comment on above: Result Comment: Phen cyclidine screening cut off value = 25 ng/mL Performed By: #### A HP #### [facility] ([id number]) [address], [address] [place] [address] #### 04374-2 #### [facility] ([id number]) [address] [place] [address] 90780 HCG ( test) Ql (U)o n 08-19-2023 Beta HCG ( test) Ql (U) Negative Normal NEG [facility] Comment on above: Performed By: #### 2 106-3 #### [facility] ([id number]) [address] [place] [address] 63379 LIPASEon 08-19-2023 Lipase [Catalytic activity/Vol] 25 U/L Normal 17-40 [facility] Comment on above: Performed By: #### C BRUCE, 3040-3, CBCA, #### [facility] ([id number]) [address] [place] [address] 93254 MAGNESIUMon 08-19-2023 Magnesium [Mass/Vol] 1.9 mg/dL Normal 1.8-2.6 [facility] Comment on above: Performed By: #### C BRUCE, 3040-3, CBCA, #### [facility] ([id number]) [address] [place] [address] 54532 SARS/FLU A+B/RSV by NAAT/Mol ecularon 08-19-2023 SARS/FLU A+B/RSV by NAAT/Molecular FLU A PCR Negative (qualifier value) FLU B PCR Negative (qualifier value) RSV by PCR Negative (qualifier value) SARS CoV 2 Not detected (qualifier value) NOTE The Xpert Xpress SARS-CoV-2/Flu/RSV Plus test is a rapid, multiplexed real-time RT-PCR test intended for the simultaneous qualitative detection and differentiation of SARS-CoV-2, influenza A, influenza B and respiratory syncytial virus (RSV) viral RNA from individuals suspected of respiratory viral infection consistent with COVID-19 by their healthcare provider. This test has not been validated in asymptomatic patients. The Xpert Xpress SARS-CoV-2 test is intended for use by qualified and trained operators who are performing tests using either [employer] or [employer] systems and is limited to laboratories that meet the CLIA requirements to perform high and moderate complexity tests. The Xpert Xpress SARS-CoV-2/Flu/RSV Plus is only for use under the Food and Drug Administration's Emergency Use Authorization. Results are for the simultaneous detection and differentiation of SARS-CoV-2, influenza A, influenza B and RSV nucleic acids in clinical specimens. SARS-CoV-2, influenza A, influenza B and RSV RNA identified by this test are generally detectable in upper respiratory samples during the acute phase of infection. Positive results are indicative of the presence of the identified virus, but do not rule out bacterial infection or co-infection with other pathogens not detected by this test. Clinical correlation with patient history and other diagnostic information is necessary to determine patient infection status. The agent detected may not be the definite cause of disease. Negative results do not preclude SARS-CoV-2, influenza A, influenza B and RSV infection and should not be used as the sole basis for treatment or other patient management decisions. Negative results must be combined with clinical observations, patient history and epidemiological information. An Invalid result may occur with specimen-associated inhibition unable to be resolved with specimen repeat. Fact Sheet for Healthcare Providers: https://www.fda.gov/ media/170482/downloa d Fact Sheet for Patients: https://www.fda.gov/ media/106724/downloa d Normal [facility] Comment on above: Performed By: #### C OVFLR #### [facility] ([id number]) [address] [place] [address], [place] [address] URN MACROSCOPIC ERAon 04-19- 2024 BILIRUBIN ERA Small Abnormal NEG [facility] Comment on above: Performed By: #### N UM #### [facility] ([id number]) [address] [place] [address] [place] [address] BLOOD/HGB ERA Trace Abnormal NEG [facility] [place] Comment on above: Performed By: #### N UM #### [facility] ([id number]) [address] [place] [address] [place] [address] GLUCOSE ERA Negative Normal NEG [facility] Comment on above: Performed By: #### N UM #### [facility] ([id number]) [address] [place] [address] KETONES ERA Negative Normal NEG [facility] Comment on above: Performed By: #### N UM #### [facility] ([id number]) [address] [place] [address] [place] [address] LEUKOCYTE ESTERASE ERA Small Abnormal NEG Pr [facility] Comment on above: Performed By: #### N UM #### [facility] ([id number]) [address] [place] [address] [place] [address] NITRITE ERA Positive Abnormal NEG [facility] Comment on above: Performed By: #### N UM #### [facility] ([id number]) [address] [place] [address] [place] [address] PH ERA 6.0 Normal 5.0-8.5 [facility] Comment on above: Performed By: #### N UM #### [facility] ([id number]) [address] [place] [address] PROTEIN ERA Negative Normal NEG [facility] Comment on above: Performed By: #### N UM #### [facility] ([id number]) [address] [place] [address] [place] [address] SPECIFIC GRAVITY ERA 1.025 Normal 1.003-1.035 [facility] Comment on above: Performed By: #### N UM #### [facility] ([id number]) [address] [facility] [place] [address] UROBILINOGEN ERA >=8.0 Normal <1.1 [facility] Comment on above: Performed By: #### N UM #### [facility] ([id number]) [address] [facility] [place] [address] ED Note-Physicianon 07-23-19 ED Note-Physician Basic Information Time Seen: Bernadette Gil PA-C 07/06/2023 15:16 Chief Complaint Pt reports vaginal itching and burning with urination for 1.5 months. Brown vaginal discharge. Pt also reports sinus congestion for 3-4 days. History of Present Illness 33-year-old female presents with brown vaginal discharge for the past 2 months. She states that she has followed up in [place] ER for this, but they did not do anything. She complains of dysuria. She has sinus congestion for the past couple days. Denies risk of or STDs. Denies fever, abdominal or back pain, n/v/d Review of Systems Review of systems negative unless otherwise stated in HPI Physical Exam Vitals & Measurements T: 36.9 ?C(Oral) HR: 102(Peripheral) RR: 16 BP: 100/69 SpO2: 100% HT: 160.02 cm WT: 70.3 kg BMI: 27.45 GENERAL: ALERT, NO ACUTE DISTRESS, talking in full and complete sentences SKIN: WARM, DRY, INTACT; NO CYANOSIS, NO RASH HEAD: NORMOCEPHALIC, ATRAUMATIC EYE: PERRL, EOMI, NORMAL CONJUNCTIVA, NO DISCHARGE NOSE: NARES PATENT MOUTH: ORAL MUCOSA MOIST THROAT: NO STRIDOR NECK: SUPPLE, TRACHEA MIDLINE, FROM RESPIRATORY: NON-LABORED RESPIRATIONS ABDOMEN: SOFT, NT EXTREMITIES: NO CYANOSIS, NO EDEMA, FROM X 4, PULSES INTACT, NORMAL STRENGTH, CAPILLARY REFILL INTACT NEUROLOGICAL: A&OX3 PSYCHIATRIC: COOPERATIVE, APPROPRIATE MOOD AND AFFECT Medical Decision Making Urine hCG negative. UA positive for leukocytes and WBCs. Will await urine culture as UA is not convincing for UTI at this time. STD and culture swabs are pending. She is instructed that she will be called for any positive results. She is to follow-up with the health department or CUSTOMER RESOLUTION SPECIALIST. Nasal congestion sounds viral and can use tlny-ufi-qrouhuh medications and follow-up family doctor. Afebrile, not tachycardic, not tachypneic, nontoxic-appearing, tolerating p.o. and ambulating at baseline and hemodynamically stable to be discharged home. Answered all questions. Patient in agreement with treatment. Assessment/Plan 1. Viral sinusitis (J32.9: Chronic sinusitis, unspecified) 2. Vaginal discharge (N89.8: Other specified noninflammatory disorders of vagina) Other viral agents as the cause of diseases classified elsewhere (B97.89: Other viral agents as the cause of diseases classified elsewhere) Orders: Cervical Culture Chlam/GC/Trich,BETZAIDA Drug Screen Urine U Beta Hcg Qual UA With Cult Reflex Urine Culture Disposition Plan Patient Discharge Condition Stable Discharge Disposition Home Discharge Prescription List Prescriptions No active prescription medications Follow-up With When Contact Information [facility] Dept: [phone] In 3 days 07/09/2023 EST Additional Instructions: Boubacar MULLINS, Zev Webber, ORS Within 2 to [address] [place] [id number]- Additional Instructions: Patient Education Viral Respiratory Infection, Wksk-Ia-Kocn Attestation I performed a substantive part of the MDM during the patient?s E/M visit. I personally made or approved the documented management plan and acknowledge its risk of complications. (Independent Interpretation) My (EKG/X-Ray/US/CT) interpretation as above. (Discussion) Management/test interpretation discussed with APC. Problem List/Past Medical History Ongoing Acute hypotension Anxiety Hepatitis C Smoker Twin Historical Cardiac related syncope Procedure/Surgical History section, INSERTION TRANSMITTER IN CHEST, Removal and replacement of wireless cardiac stimulator for left ventricular pacing; pulse generator component(s) (battery and/or transmitter). Medications Inpatient No active inpatient medications Home albuterol 0.083% Inh Valerie 3 mL, 2.5 mg= 3 mL, Inhalation, q6hr, PRN, Not taking Allergies No Known Allergies Social History Alcohol - Medium Risk, 02/09/2016 Current, Beer, 1-2 times per month, 02/09/2016 Employment/School Unemployed, Highest education level: High school., 05/12/2012 Exercise - Does not exercise, 05/12/2012 Home/Environment Lives with Children, Mother. Living situation: Home/Independent. Alcohol abuse in household: Yes. Substance abuse in household: No. Smoker in household: Yes. Injuries/Abuse/Negle ct in household: No. Feels unsafe at home: No. Safe place to go: Yes. Agency(s)/Others notified: No. Family/Friends available for support: Yes. Concern for family members at home: No. Major illness in household: No. Financial concerns: No., 05/12/2012 Nutrition/Health Regular, 05/12/2012 Sexual Sexually active: Yes., 05/12/2012 Substance Abuse - Denies Substance Abuse, 05/03/2012 Tobacco 5-9 cigarettes (between 1/4 to 1/2 pack)/day in last 30 days Tobacco Use:. Cigarettes, 06/25/2021 Current Every Day Smoker, Cigarettes, 10 per day., 02/09/2016 Current, Cigarettes, 8 per day. 6 year(s). Started age 14.0 Years. Previous treatment: None. Ready to change: No. Hous (more content not included)... Normal [facility] Comment on above: Result Comment: Elec tronically Signed By: Bernadette Gil PA-C\.br\Date and Time Signed: 07/06/23 16:00 EST\.br\Electronically Co-Signed By: Adolfo Hernandez MD\.br\Date and Time Co-Signed: 07/23/23 19:29 EDT Chlam/GC/Trich,NAAon 024 C. trachomatis rRNA BETZAIDA+probe Ql (Unsp spec) Negative Invalid Interpretation Code Negative [facility] Comment on above: Performed By: #### 1 [id number] #### [facility] [address] [place] [address] N. gonorrhoeae rRNA BETZAIDA+probe Ql (Unsp spec) Negative Invalid Interpretation Code Negative [facility] Comment on above: Performed By: #### 1 [id number] #### [facility] [address] [place] [address] T. vaginalis rRNA BETZAIDA+probe Ql (Unsp spec) Negative Invalid Interpretation Code Negative [facility] Comment on above: Result Comment: Perf ormed at: =G [facility] [address] RASHID Lou [id number] MD Tamika Eid Performed By: #### 1 [id number] #### [facility] [address] [place] [address] C Urineon 07-08-2023 Bacteria identified Cx Nom (U) Microbiology PROCEDURE: Urine Culture [R1] SOURCE: U CleanCatch BODY SITE: COLLECTED DATE/TIME: 07/06/2023 15:19 EST RECEIVED DATE/TIME: 07/06/2023 15:33 EST START DATE/TIME: 07/06/2023 15:33 EST FREE TEXT SOURCE: Louise JONAS, Bernadette Gil PA-C, Bernadette Adams FINAL REPORTS Final Report [] Verified Date/Time: 07/08/2023 11:44 EST 45,000 cfu/ml Escherichia coli 5,000 cfu/ml Mixed skin contaminants SUSCEPTIBILITY RESULTS LEGEND: S=Susceptible, N/R=Not Reported, Blank=Data not available, or drug not advisable or tested, I=Intermediate, ESBL=Extended spectrum beta-lactamase, R=Resistant, TFG=Thymidine-depend ent strain, JOSE CARLOS=Beta-lactamase positive, TESSY=mcg/m;(mg/L), S*=Predicted susceptible interp, R*=Predicted resistant interp EC Antibiotic TESSY Dilutn TESSY Interp Amikacin <=16 S Ampicillin >16 R Ampicillin/ >16/8 R Sulbactam Aztreonam <=4 S Cefazolin 8 S Cefepime <=2 S Cefoxitin <=8 S Ceftazidime <=1 S Ceftazidime/ <=8 S Avibactam Ceftriaxone <=1 S Ciprofloxacin <=1 S Ertapenem <=0.5 S Gentamicin <=4 S Levofloxacin <=2 S Meropenem <=1 S Nitrofurantoin <=32 S Piperacillin/ <=16 S Tazobactam Tetracycline <=4 S Tigecycline <=2 S Tobramycin <=4 S Trimethoprim/ <=2/38 S Sulfa Performing Locations R1: This test was performed at: [facility], [address] [place] [address], [id number] [place] [address], [facility] Comment on above: Performed By: #### 2 [id number] #### [facility] [address] [place] [id number] CHEMISTRYOrdered By: SYSTEM SYSTEM on 07-06-2023 Amphetamines Screen method >1000 ng/mL Ql (U) NEGATIVE (07/06/23 3:19 PM) Normal NEGATIVE Remisol Chem Barbiturates Screen Ql (U) NEGATIVE (07/06/23 3:19 PM) Normal NEGATIVE Remisol Chem Benzodiazepines Ql (U) NEGATIVE (07/06/23 3:19 PM) Normal NEGATIVE Remisol Chem Cannabinoids Screen Ql (U) POSITIVE *ABN* (07/06/23 3:19 PM) Invalid Interpretation Code NEGATIVE Remisol Chem Cocaine Ql (U) NEGATIVE (07/06/23 3:19 PM) Normal NEGATIVE Remisol Chem Opiates Screen Ql (U) NEGATIVE (07/06/23 3:19 PM) Normal NEGATIVE Remisol Chem Phencyclidine Screen method >25 ng/mL Ql (U) NEGATIVE (07/06/23 3:19 PM) Normal NEGATIVE Remisol Chem Consent for Treatmenton Consent for Treatment [id number] #1.00TIFF Normal [facility] Discharge Instructionson Discharge Instructions [id number]#[id number] Normal [facility] ED Clinical Summaryon 2023 ED Clinical Summary [place] [id number] ED Clinical Summary Person Information Name: SANGEETA MYLES [place] Age: 33 Years : 1990 Sex: Female Language: [place] PCP: NONE, XXXX Marital Status: Single Visit Id: Visit Reason: Sinus Pain/Congestion; Vaginal discharge; Dysuria; POS. UTI AND XSINUS INFECTION Speciality: Acuity: 3 Enc Type: Emergency Med Service: Emergency Arrival: 07/06/2023 15:07:04 Discharge: 07/06/2023 16:02:26 LOS: 000 00:55 Checkin: 07/06/2023 15:07:04 Checkout: 07/06/2023 16:02:26 Dispo Type: Home (Routine DC) EVENTS: Event Name Event Status Request Date/Time Start Date/Time Complete Date/Time Arrive Complete 07/06/2023 15:07:04 07/06/2023 15:07:04 07/06/2023 15:07:04 Document Home Meds Request 07/06/2023 15:07:04 Triage Complete 07/06/2023 15:07:04 07/06/2023 15:14:37 07/06/2023 15:14:37 Pending Labs Complete 07/06/2023 15:09:37 07/06/2023 15:40:29 Lab Complete 07/06/2023 15:09:37 07/06/2023 15:40:29 Urine Collect Complete 07/06/2023 15:09:37 07/06/2023 15:40:29 Registration Complete 07/06/2023 15:11:04 07/06/2023 15:11:04 07/06/2023 15:11:04 Reg Complete Request 07/06/2023 15:11:04 Reg Bed Request Complete 07/06/2023 15:11:04 07/06/2023 15:11:04 07/06/2023 15:11:04 Bed Assign Complete 07/06/2023 15:14:45 07/06/2023 15:14:45 07/06/2023 15:14:45 Dr Exam Complete 07/06/2023 15:14:45 07/06/2023 15:16:49 07/06/2023 15:16:49 RN Exam Complete 07/06/2023 15:14:45 07/06/2023 15:28:20 07/06/2023 15:28:20 Registration Request 07/06/2023 15:16:49 Pending Labs Collected 07/06/2023 15:21:07 Lab Cancel 07/06/2023 15:21:07 07/06/2023 15:44:26 Pending Labs Inlab 07/06/2023 15:29:14 07/06/2023 15:29:14 Lab Inlab 07/06/2023 15:29:14 07/06/2023 15:29:14 Pending Labs Inlab 07/06/2023 15:31:12 Lab Inlab 07/06/2023 15:31:12 Urine Collect Inlab 07/06/2023 15:31:12 Pending Labs Inlab 07/06/2023 15:44:07 07/06/2023 15:44:07 Lab Inlab 07/06/2023 15:44:07 07/06/2023 15:44:07 Discharge Complete 07/06/2023 15:58:12 07/06/2023 16:02:43 07/06/2023 16:02:43 Transfer Complete 07/06/2023 16:02:43 07/06/2023 16:02:43 07/06/2023 16:02:43 ADDRESS: [address] [place] [id number] PHYS DOC NOTES: MEDICAL INFORMATION: Prescriptions Given: Medications to Continue with No Changes Other Medications albuterol (albuterol 0.083% Inh Valerie 3 mL) 3 Milliliter Inhalation every 6 hours as needed for wheezing. PATIENT EDUCATION INFORMATION: Instructions: Viral Respiratory Infection, Abgo-Xe-Lfzt Follow up: With: Address: When: Boubacar MULLINS, Zev Webber, ORS [address], [address] [place] [address] Within 2 to 4 days With: Address: When: [facility] Dept: [phone] In 3 days 07/09/2023 DIAGNOSIS: 1:Viral sinusitis; 2:Vaginal discharge; Other viral agents as the cause of diseases classified elsewhere Normal [facility] ED Patient Education Noteon 07-06-2023 ED Patient Education Note Infectious Disease Viral Respiratory Infection A viral respiratory infection is an illness that affects parts of the body that are used for breathing. These include the lungs, nose, and throat. It is caused by a germ called a virus. Some examples of this kind of infection are: ? A cold. ? The flu (influenza). ? A respiratory syncytial virus (RSV) infection. What are the causes? This condition is caused by a virus. It spreads from person to person. You can get the virus if: ? You breathe in droplets from someone who is sick. ? You come in contact with people who are sick. ? You touch mucus or other fluid from a person who is sick. What are the signs or symptoms? Symptoms of this condition include: ? A stuffy or runny nose. ? A sore throat. ? A cough. ? Shortness of breath. ? Trouble breathing. ? Yellow or green fluid in the nose. Other symptoms may include: ? A fever. ? Sweating or chills. ? Tiredness (fatigue). ? Achy muscles. ? A headache. How is this treated? This condition may be treated with: ? Medicines that treat viruses. ? Medicines that make it easy to breathe. ? Medicines that are sprayed into the nose. ? Acetaminophen or NSAIDs, such as ibuprofen, to treat fever. Follow these instructions at home: Managing pain and congestion ? Take rtef-pbn-nfogmmc and prescription medicines only as told by your doctor. ? If you have a sore throat, gargle with salt water. Do this 3?4 times a day or as needed. ? To make salt water, dissolve ??1 tsp (3?6 g) of salt in 1 cup (237 mL) of warm water. Make sure that all the salt dissolves. ? Use nose drops made from salt water. This helps with stuffiness (congestion). It also helps soften the skin around your nose. ? Take 2 tsp (10 mL) of honey at bedtime to lessen coughing at night. ? Do not give honey to children who are younger than 1 year old. ? Drink enough fluid to keep your pee (urine) pale yellow. General instructions ? Rest as much as possible. ? Do not drink alcohol. ? Do not smoke or use any products that contain nicotine or tobacco. If you need help quitting, ask your doctor. ? Keep all follow-up visits. How is this prevented? ? Get a flu shot every year. Ask your doctor when you should get your flu shot. ? Do not let other people get your germs. If you are sick: ? Wash your hands with soap and water often. Wash your hands after you cough or sneeze. Wash hands for at least 20 seconds. If you cannot use soap and water, use hand laundry tech. ? Cover your mouth when you cough. Cover your nose and mouth when you sneeze. ? Do not share cups or eating utensils. ? Clean commonly used objects often. Clean commonly touched surfaces. ? Stay home from work or school. ? Avoid contact with people who are sick during cold and flu season. This is in fall and winter. Get help if: ? Your symptoms last for 10 days or longer. ? Your symptoms get worse over time. ? You have very bad pain in your face or forehead. ? Parts of your jaw or neck get very swollen. ? You have shortness of breath. Get help right away if: ? You feel pain or pressure in your chest. ? You have trouble breathing. ? You faint or feel like you will faint. ? You keep vomiting and it gets worse. ? You feel confused. These symptoms may be an emergency. Get help right away. Call your local emergency services (911 in the [place] ? Do not wait to see if the symptoms will go away. ? Do not drive yourself to the hospital. Summary ? A viral respiratory infection is an illness that affects parts of the body that are used for breathing. ? Examples of this illness include a cold, the flu, and a respiratory syncytial virus (RSV) infection. ? The infection can cause a runny nose, cough, sore throat, and fever. ? Follow what your doctor tells you about taking medicines, drinking lots of fluid, washing your hands, resting at home, and avoiding people who are sick. This information is not intended to replace advice given to you by your health care provider. Make sure you discuss any questions you have with your health care provider. Document Revised: 07/23/2021 Document Reviewed: 07/23/2021 Elsevier Patient Education ? 2022 [employer] 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 It is important that you follow up with a doctor, nurse practitioner, or physician?s drug safety assistant for ongoing care. If your symptoms become worse or you do not improve as expected and you are unable to reach your usual health care provider, you should return to the Emergency Department. We are available 24 hours a day. SANGEETA MYLES has been given the following list of patient education materials, prescriptions and follow-up instructions: Follow-up Instructions: With: Address: When: Boubacar MULLINS, Zev Webber, ORS [address] [facility] [address] [place] [address] Within 2 to 4 days With: [facility]: [facility] [phone] In 3 days 07/09/2023 In the event that this physician does not participate in your insurance network, please consult with your insurance company to find a nearby participating provider. Patient Education Materials: Viral Respiratory Infection, Pybn-Gy-Yzxr A MESSAGE TO ALL PATIENTS REGARDING OPIOIDS PRESCRIPTION OPIOIDS: WHAT YOU NEED TO KNOW Prescription opioids can be used to help relieve zgdfcqwh-cn-jnhjbc pain and are often prescribed following a surgery or injury, or for certain health conditions. These medications can be an important part of the treatment but also come with serious risks. It is important to work with your healthcare provider to make sure you are getting the safest, most effective care. WHAT ARE THE RISKS AND SIDE EFFECTS OF OPIOID USE? Prescription opioids carry serious risks of addiction and overdose, especially with prolonged use. An opioid overdose, often marked by slowed breathing, can cause sudden . The use of prescription opioids can have a number of side effects as well, even when taken as directed: ? Tolerance?meaning you might need to take more of the medication for the same pain relief ? Physical dependence?meaning you have symptoms of withdrawal when a medication is stopped ? Increased sensitivity to pain ? Constipation ? Nausea, vomiting, and dry mouth ? Sleepiness and dizziness ? Confusion ? Depression ? Low levels of testosterone that can result in lower sex drive, energy, and strength ? Itching and sweating RISKS ARE GREATER WITH: ? History of drug misuse, substance use disorder, or overdose ? Mental health conditions (such as depression or anxiety) ? Sleep apnea ? Older age (65 years and older) ? Avoid alcohol while taking prescription opioids. Also, unless specifically advised by your health care provider, medications to avoid include: ? Benzodiazepines (such as Xanax or Valium) ? Muscle relaxants (such as Soma or Flexeril) ? Hypnotics (such as Ambien or Lunesta) ? Other prescription opioids KNOW YOUR OPTIONS Talk to your health care provider about ways to manage your pain that don?t involve prescription opioids. Some of these options may actually work better and have fewer risks and side effects. Options may include: ? Pain relievers such as acetaminophen, ibuprofen, and naproxen ? Some medication that are also used for depression or seizures ? Physical therapy and exercise ? Cognitive behavioral therapy, a psychological, goal-directed approach, in which patients learn how to modify physical, behavioral, and emotional triggers of pain and stress. IF YOU ARE PRESCRIBED OPIOIDS FOR PAIN: ? Never take opioids in greater amounts or more often than prescribed. ? Follow up with your primary health care provider. o Work together to create a plan on how to manage your pain. o Talk about ways to help manage your pain that don?t involve prescription opioids. o Talk about any and all concerns and side effects. ? Help prevent misuse and abuse o Never sell or share prescription opioids. o Never use another person?s prescription opioids. ? Store prescription opioids in a secure place and out of reach of others (this may include visitors, children, friends, and family). ? Safely dispose of unused prescription opioids: Find your community drug take-back program or your pharmacy mail-back program, or flush them down the toilet, following guidance from the Food and Drug Administration (www.fda.gov/Drugs/R esourcesForYou). ? Visit www.cdc.gov/drugover dose to learn about the risks of opioids abuse and overdose. ? If you believe you may be strugglin (more content not included)... Normal [facility] No Panel InformationOrdered By: Bella Flower on 07-06-2023 WP No clue cells present No Trichomonas vaginalis present No yeast seen [facility] SEROLOGYOrdered By: Jules Stovereon on 07-06-2023 HCG.beta subunit (U) [Moles/Vol] Negative Normal [facility] Man Sero U BetaHcg Qualon 07-06-2023 HCG.beta subunit (U) [Moles/Vol] Negative Normal [facility] Comment on above: Performed By: #### 2 [id number] #### [facility] [address] [place] [address] U Drug Screenon 07-06-2023 Amphetamines Screen method >1000 ng/mL Ql (U) Negative Normal NEGATIVE [facility] Comment on above: Performed By: #### 2 [id number] #### [facility] [address] [place] [address] Barbiturates Screen Ql (U) Negative Normal NEGATIVE [facility] Comment on above: Performed By: #### 2 [id number] #### [facility] [facility] [address] [place] [address] Benzodiazepines Ql (U) Negative Normal NEGATIVE [facility] Comment on above: Performed By: #### 2 [id number] #### [facility] [address] [place] [address] Cannabinoids Screen Ql (U) Positive Abnormal NEGATIVE [facility] Comment on above: Performed By: #### 2 [id number] #### [facility] [address] [place] [address] Cocaine Ql (U) Negative Normal NEGATIVE [facility] Comment on above: Performed By: #### 2 [id number] #### [facility] [address] [place] [address] Opiates Screen Ql (U) Negative Normal NEGATIVE [facility] Comment on above: Performed By: #### 2 [id number] #### [facility] [address] [place] [address] Phencyclidine Screen method >25 ng/mL Ql (U) Negative Normal NEGATIVE [facility] Comment on above: Performed By: #### 2 [id number] #### [facility] [address] [place] [address] UA With Cult Reflexon 2023 Color (U) YELLOW Normal Yellow [facility] Comment on above: Performed By: #### 2 [id number], [id number], [id number] #### [facility] [address] [place] [address] Glucose (U) [Mass/Vol] Negative Normal Negative [facility] Comment on above: Performed By: #### 2 [id number], [id number], [id number] #### [facility] [address] [place] [address] Ketones Ql (U) Negative Normal Negative [facility] Comment on above: Performed By: #### 2 [id number], [id number], [id number] #### [facility] [address] [place] [address] UA Blood Negative Normal Negative [facility] Comment on above: Performed By: #### 2 [id number], [id number], [id number] #### [facility] [address] [place] [address] UA Amorph Nelsy Present Normal [facility] Comment on above: Performed By: #### 2 [id number], [id number], [id number] #### [facility] [address] [place] [address] UA Bacteria TRACE Normal Trace [facility] Comment on above: Performed By: #### 2 [id number], [id number], [id number] #### [facility] [address] [place] [address] UA Clarity CLEAR Normal Clear [facility] Comment on above: Performed By: #### 2 [id number], [id number], [id number] #### [facility] [address] [place] [address] UA Leuk Est 2+ Abnormal Negative [facility] Comment on above: Performed By: #### 2 [id number], [id number], [id number] #### [facility] [address] [place] [address] UA Mucous 1+ Normal [facility] Comment on above: Performed By: #### 2 [id number], [id number], [id number] #### [facility] [address] [place] [address] UA Nitrite Negative Normal Negative [facility] Comment on above: Performed By: #### 2 [id number], [id number], [id number] #### [facility] [address] [place] [address] UA pH 8.5 Invalid Interpretation Code 5.0-9.0 [facility] Comment on above: Performed By: #### 2 [id number], [id number], [id number] #### [facility] [address] [place] [address] UA Protein 2+ Abnormal Negative [facility] Comment on above: Performed By: #### 2 [id number], [id number], [id number] #### [facility] [address] [place] [address] UA RBC 0-3 Normal 0-3 [facility] Comment on above: Performed By: #### 2 [id number], [id number], [id number] #### [facility] [address] [place] [address] UA Spec Desc Clean Catch Normal [facility] Comment on above: Performed By: #### 2 [id number], [id number], [id number] #### [facility] [address] [place] [address] UA Spec Grav 1.010 Invalid Interpretation Code 1.005-1.030 [facility] Comment on above: Performed By: #### 2 [id number], [id number], [id number] #### [facility] [address] [place] [address] UA Squam Epithelial 3-4 Normal 0-2 [facility] Comment on above: Performed By: #### 2 7055557, [id number], [id number] #### [facility] [address] [place] [address] UA Urobilinogen 4.0 EU/dL Abnormal 0.0-1.0 [facility] Comment on above: Performed By: #### 2 [id number], [id number], [id number] #### [facility] [address] [place] [address] UA WBC 16-25 Abnormal 0-5 [facility] Comment on above: Performed By: #### 2 0787065, [id number], [id number] #### [facility] [address] [place] [address] Urobilinogen (U) [Mass/Vol] Negative Normal Negative [facility] Comment on above: Performed By: #### 2 [id number], [id number], [id number] #### [facility] [address] [place] [address] URINALYSISOrdered By: Jules Ny on 07-06-2023 Color (U) Yellow (07/06/23 3:19 PM) Normal Yellow [facility] Auto SS Ketones Ql (U) Negative (07/06/23 3:19 PM) Normal Negative [facility] UA Auto SS UA Amorph Nelsy Present (07/06/23 3:19 PM) Normal [facility] UA Auto SS UA Bacteria Trace /HPF Normal Trace/HPF [facility] UA Auto SS UA Bili Negative (07/06/23 3:19 PM) Normal Negative [facility] UA Auto SS UA Blood Negative (07/06/23 3:19 PM) Normal Negative [facility] UA Auto SS UA Clarity Clear (07/06/23 3:19 PM) Normal Clear [facility] UA Auto SS UA Glucose Negative (07/06/23 3:19 PM) Normal Negative [facility] UA Auto SS UA Leuk Est 2+ *ABN* (07/06/23 3:19 PM) Invalid Interpretation Code Negative [facility] UA Auto SS UA Mucous 1+ (07/06/23 3:19 PM) Normal [facility] UA Auto SS UA Nitrite Negative (07/06/23 3:19 PM) Normal Negative [facility] UA Auto SS UA pH 8.5 *NA* (07/06/23 3:19 PM) Invalid Interpretation Code 5.0 - 9.0 [facility] UA Auto SS UA Protein 2+ *ABN* (07/06/23 3:19 PM) Invalid Interpretation Code Negative [facility] UA Auto SS UA RBC 0-3 /HPF Normal 0-3/HPF [facility] UA Auto SS UA Spec Desc Clean Catch (07/06/23 3:19 PM) Normal [facility] UA Auto SS UA Spec Grav 1.010 *NA* (07/06/23 3:19 PM) Invalid Interpretation Code 1.005 - 1.030 [facility] UA Auto SS UA Squam Epithelial 3-4 /HPF Normal 0-2/HPF [facility] UA Auto SS UA Urobilinogen 4.0 EU/dL Invalid Interpretation Code 0.0 - 1.0 EU/dL [facility] UA Auto SS UA WBC 16-25 /HPF Invalid Interpretation Code 0-5/HPF [facility] UA Auto SS ACUTE HEPATITIS PANELon 06-02 ANTI HCV W/PCR REFLX Reactive Abnormal NRCT [facility] Comment on above: Result Comment: Supplemental testing for HCV RNA by PCR has been ordered per CDC recommendations. Vrovxu-yc-yvfrqs ratio is >=1.00. Performed By: #### A #### [facility] ([id number]) [address], [address] [place] [address] #### [id number] #### [facility] ([id number]) [address] [place] [address] HEPATITIS A IGM Non-Reactive Normal NRCT [facility] Comment on above: Performed By: #### A HP #### [facility] ([id number]) [address], [address] [place] [address] #### [id number] #### [facility] ([id number]) [address] [place] [address] HEPATITIS B CORE IGM Negative Normal NEG [facility] Comment on above: Performed By: #### A HP #### [facility] ([id number]) [address], [address] [place] [address] #### [id number] #### [facility] ([id number]) [address] [place] [address] HEPATITIS B SURF AG Negative Normal NEG [facility] Comment on above: Performed By: #### A HP #### [facility] ([id number]) [address], [address] [place] [address] #### [id number] #### [facility] ([id number]) [address] [place] [address] HCV RNA BETZAIDA+probe Qnon 06-17 HCV RNA QUANT PCR [id number] IU/mL Abnormal Undetected [facility] Comment on above: Result Comment: NOTE Result in log IU/mL is 6.72. ADDITIONAL INFORMATION The quantification range of this assay is 15 to 100,000,000 IU/mL (1.18 log to 8.00 log IU/mL). Testing was performed using the valentin HCV test ([employer] Test Performed by: [address] [address] Energy And Conservation Technician: Ruddy Gonzalez M.D. Ph.D.; IA# [id number] Performed By: #### A HP #### [facility] ([id number]) [address], [address] [place] [address] #### [id number] #### [facility] ([id number]) [address] [facility], [place] [address] Cult,Urineon 12-11-2022 Cult,Urine Specimen Description .URINE Culture Several types of bacteria were identified in this specimen. Further ID and susceptibility testing is generally not helpful in this circumstance and has not been performed. Consider recollection if clinically indicated. Report Status FINAL 12/11/2022 Normal [facility] Comment on above: Performed By: #### P HEP, HIVCMB #### [address] [address] Energy And Conservation Technician: Antonino Nova MD #### BMPCMP, BMP, CBC #### [address] [place] [address] Energy And Conservation Technician: Merlin Charles MD UA w/Reflex Cultureon 2022 Bilirubin, SemiQt,Ur Negative Normal NEG [facility] Comment on above: Performed By: #### P HEP, HIVCMB #### [address] [address] Energy And Conservation Technician: Antonino Noav MD #### BMPCMP, BMP, CBC #### [address] [place] [address] Energy And Conservation Technician: Merlin Charles MD Blood, Urine Negative Normal NEG [facility] Comment on above: Performed By: #### P HEP, HIVCMB #### [address] [address] Energy And Conservation Technician: Antonino Nova MD #### BMPCMP, BMP, CBC #### [address] [place], [place] [address]83 Energy And Conservation Technician: Merlin Charles MD Clarity (U) Clear Normal CLEAR [facility] Comment on above: Performed By: #### P HEP, HIVCMB #### [address] [address] Energy And Conservation Technician: Antonino Nova MD #### BMPCMP, BMP, CBC #### [address] [place] [id number] Energy And Conservation Technician: Merlin Charles MD Color (U) Yellow Normal YEL [facility] Comment on above: Performed By: #### P HEP, HIVCMB #### [address] [address] Energy And Conservation Technician: Antonino Nova MD #### BMPCMP, BMP, CBC #### [address] [place] [phone] Energy And Conservation Technician: Merlin Charles MD Glucose Ql (U) Negative Normal NEG [facility] Comment on above: Performed By: #### P HEP, HIVCMB #### [address] [address] Energy And Conservation Technician: Antonino Nova MD #### BMPCMP, BMP, CBC #### [address] [place] [phone] Energy And Conservation Technician: Merlin Charles MD Ketones Ql (U) Negative Normal NEG [facility] Comment on above: Performed By: #### P HEP, HIVCMB #### [address] [address] Energy And Conservation Technician: Antonino Nova MD #### BMPCMP, BMP, CBC #### [address] [place], [place] 397[address]83 Energy And Conservation Technician: Merlin Charles MD Leukocyte esterase Test strip Ql (U) LARGE Abnormal NEG [facility] Comment on above: Performed By: #### P HEP, HIVCMB #### [address] [address] Energy And Conservation Technician: Antonino Nova MD #### BMPCMP, BMP, CBC #### [address] [place], [place] 4108483 Energy And Conservation Technician: Merlin Charles MD Nitrite,Ur Negative Normal NEG [facility] Comment on above: Performed By: #### P HEP, HIVCMB #### [address] [address] Energy And Conservation Technician: Antonino Nova MD #### BMPCMP, BMP, CBC #### [address] [place], [place] 2464183 Energy And Conservation Technician: Merlin Charles MD PH,Ur 6.0 Normal 5.0-9.0 [facility] Comment on above: Performed By: #### P HEP, HIVCMB #### [address] [address] Energy And Conservation Technician: Antonino Nova MD #### BMPCMP, BMP, CBC #### [address] [place], [place] 4307383 Energy And Conservation Technician: Merlin Charles MD Protein Ql (U) Negative Normal NEG [facility] Comment on above: Performed By: #### P HEP, HIVCMB #### [address] [address] Energy And Conservation Technician: Antonino Nova MD #### BMPCMP, BMP, CBC #### [address] [place], [place] 42[address] Energy And Conservation Technician: Merlin Charles MD Spec. Golden,Ur 1.025 High 1.010-1.020 [facility] Comment on above: Performed By: #### P HEP, HIVCMB #### [address] [address] Energy And Conservation Technician: Antonino Nova MD #### BMPCMP, BMP, CBC #### [address] [place] [address] Energy And Conservation Technician: Merlin Charles MD Urobilinogen,Ur Normal Normal 0.0-1.0 [facility] Comment on above: Performed By: #### P HEP, HIVCMB #### [address] [address] Energy And Conservation Technician: Antonino Nova MD #### BMPCMP, BMP, CBC #### [address] [place] [address] Energy And Conservation Technician: Merlin Charles MD Urinalysis,Microon 3 Bacteria 3+ Abnormal NONE [facility] Comment on above: Performed By: #### P HEP, HIVCMB #### [address] [address] Energy And Conservation Technician: Antonino Nova MD #### BMPCMP, BMP, CBC #### [address] [place] [phone] Energy And Conservation Technician: Merlin Charles MD Epithelial cells LM Ql (Urine sed) 0 TO 2 Normal 0-25 [facility] Comment on above: Performed By: #### P HEP, HIVCMB #### [address] [address] Energy And Conservation Technician: Antonino Nova MD #### BMPCMP, BMP, CBC #### [address] [place] [address] Energy And Conservation Technician: Merlin Charles MD Urine RBC's 0 TO 2 Normal 0-2 [facility] Comment on above: Performed By: #### P HEP, HIVCMB #### [address] [address] Energy And Conservation Technician: Antonino Nova MD #### BMPCMP, BMP, CBC #### [facility] [address] [place] [place] [address] Energy And Conservation Technician: Merlin Charles MD Urine WBC's 10 TO 20 Normal 0-5 [facility] Comment on above: Performed By: #### P HEP, HIVCMB #### [facility] [address] [place], [place] 8[address] Energy And Conservation Technician: Antonino Nova MD #### BMPCMP, BMP, CBC #### [facility] [address] [place] [address] Energy And Conservation Technician: Merlin Charles MD Cult,Urineon 09-24-2022 Cult,Urine Specimen Description .VOIDED URINE Culture ESCHERICHIA COLI >[id number] CFU/ML STREPTOCOCCI, BETA HEMOLYTIC GROUP B >550814 CFU/ML Report Status FINAL 09/24/2022 SUSCEPTIBILITY Organism ESCHERICHIA COLI Method TESSY Ampicillin <=2 SUSCEPTIBLE Cefazolin <=4 SUSCEPTIBLE Cefazolin sensitivity results can be used to predict the effectiveness of oral cephalosporins (eg. Cephalexin) in uncomplicated Urinary Tract Infections due to E. coli, K. pneumoniae, and P. mirabilis Ceftriaxone <=0.25 SUSCEPTIBLE ESBL NEGATIVE Gentamicin <=1 SUSCEPTIBLE Levofloxacin <=0.12 SUSCEPTIBLE Nitrofurantoin <=16 SUSCEPTIBLE Piperacillin/Tazobac xiong <=4 SUSCEPTIBLE Tobramycin <=1 SUSCEPTIBLE Trimethoprim/Sulfa <=20 SUSCEPTIBLE Susceptible [facility] Comment on above: Performed By: #### U RC #### [facility] [address] [place] [address] Energy And Conservation Technician: Antonino Nova MD [facility] [address] [place] [address] Energy And Conservation Technician: Merlin Charles MD Chlamydia/GC,DNA Ampon 09-23 Chlamydia Probe Negative Normal NEG [facility] Comment on above: Result Comment: CHLA MYDIA [...] nucleic acid target. Performed By: #### U ANKITA, UA #### [facility] [address] [place] [address] [place] [place], [place] [id number] Energy And Conservation Technician: Merlin Charles MD #### SWCGP #### [address] [address] Energy And Conservation Technician: Antonino Nova MD Gonorrhea Probe Negative Normal NEG [facility] Comment on above: Result Comment: NEIS SERIA [...] nucleic acid target. Performed By: #### U ANKITA UA #### [address] [place] [address] Energy And Conservation Technician: Merlin Charles MD #### SWCGP #### [address] [address] Energy And Conservation Technician: Antonino Nova MD Trichomonas/Wet Prepon 09-22 Trichomonas/Wet Prep Specimen Descriptio n .VAGINAL SPECIMEN Direct Exam NO YEAST OBSERVED NO TRICHOMONAS SEEN NO CLUE CELLS SEEN Report Status FINAL 09/22/2022 Normal [facility] Comment on above: Performed By: #### P HEP, HIVCMB #### [address] [address] Energy And Conservation Technician: Antonino Nova MD #### BMPCMP, BMP, CBC #### [facility] [address] [place] [address] Energy And Conservation Technician: Merlin Charles MD Urinalysis, Routineon 2022 Bilirubin, SemiQt,Ur Negative Normal NEG [facility] Comment on above: Performed By: #### U MICAO, UA #### [facility] [address] [place], [place] 1493383 Energy And Conservation Technician: Merlin Charles MD #### SWCGP #### [address] [id number] Energy And Conservation Technician: Antonino Nova MD Blood, Urine Negative Normal NEG [facility] Comment on above: Performed By: #### U MICAO, UA #### [facility] [address] [place] [address] [place] [place], [place] 7354183 Energy And Conservation Technician: Merlin Charles MD #### SWCGP #### [address] [address] Energy And Conservation Technician: Antonino Nova MD Clarity (U) Cloudy Abnormal CLEAR [facility] Comment on above: Performed By: #### U MICAO, UA #### [facility] [address] [place] [address] [place], [place] 9879383 Energy And Conservation Technician: Merlin Charles MD #### SWCGP #### [address] [address] Energy And Conservation Technician: Antonino Nova MD Color (U) Yellow Normal YEL [facility] Comment on above: Performed By: #### U MICAO, UA #### [facility] [address] [place], [place] 2515383 Energy And Conservation Technician: Merlin Charles MD #### SWCGP #### [address] [address] Energy And Conservation Technician: Antonino Nova MD Glucose Ql (U) Negative Normal NEG [facility] Comment on above: Performed By: #### U MICAO, UA #### [facility] [address] [place] [address] Dr[place], [place] [id number] Energy And Conservation Technician: Merlin Charles MD #### SWCGP #### [address] [address] Energy And Conservation Technician: Antonino Nova MD Ketones Ql (U) Negative Normal NEG [facility] Comment on above: Performed By: #### U MICAO, UA #### [facility] [address] [place] [address] [place], [place] 7[address]3683 Energy And Conservation Technician: Merlin Charles MD #### SWCGP #### [address] [address] Energy And Conservation Technician: Antonino Nova MD Leukocyte esterase Test strip Ql (U) MODERATE Abnormal NEG [facility] Comment on above: Performed By: #### U MICAO, UA #### [address] [place], [place] 3655083 Energy And Conservation Technician: Merlin Charles MD #### SWCGP #### [address] [address] Energy And Conservation Technician: Antonino Nova MD Nitrite,Ur Positive Abnormal NEG [facility] Comment on above: Performed By: #### U MICAO, UA #### [facility] [address] [place] [address] [place] [place], [place] 0626183 Energy And Conservation Technician: Merlin Charles MD #### SWCGP #### [address] [address] Energy And Conservation Technician: Antonino Nova MD PH,Ur 6.0 Normal 5.0-9.0 [facility] Comment on above: Performed By: #### U MICAO, UA #### [address] [place], [place] 768[address]83 Energy And Conservation Technician: Merlin Charles MD #### SWCGP #### [address] [address] Energy And Conservation Technician: Antonino Nova MD Protein Ql (U) Negative Normal NEG [facility] Comment on above: Performed By: #### U KIMO, UA #### [facility] [address] [place], [place] [address]16983 Energy And Conservation Technician: Merlin Charles MD #### SWCGP #### [address] [address] Energy And Conservation Technician: Antonino Nova MD Spec. Golden,Ur 1.025 High 1.010-1.020 [facility] Comment on above: Performed By: #### U KIMO, UA #### [facility] [address] [place] [address] [place] [place] [phone] Energy And Conservation Technician: Merlin Charles MD #### SWCGP #### [address] [address] Energy And Conservation Technician: Antonino Nova MD Urobilinogen,Ur Normal Normal NORM [facility] Comment on above: Performed By: #### U ANKITA, UA #### [facility] [address] [place] [address] [place] [place], [place] [address]37083 Energy And Conservation Technician: Merlin Charles MD #### SWCGP #### [address] [address] Energy And Conservation Technician: Antonino Nova MD Urinalysis,Microon 3 Bacteria 3+ Abnormal NONE [facility] Comment on above: Performed By: #### U KIMO, UA #### [facility] [address] [place] [address] [place] [place], [place] [address]253183 Energy And Conservation Technician: Merlin Charles MD #### SWCGP #### [address] [address] Energy And Conservation Technician: Antonino Nova MD Epithelial cells LM Ql (Urine sed) 0 TO 2 Normal 0-25 [facility] Comment on above: Performed By: #### U ANKITA UA #### [facility] [address] [place], [place] [id number] Energy And Conservation Technician: Merlin Charles MD #### SWCGP #### [address] [address] Energy And Conservation Technician: Antonino Nova MD Mucus Strands 1+ Abnormal NONE [facility] Comment on above: Performed By: #### U ANKITA, UA #### [facility] [address] [place], [place] 389[address]3 Energy And Conservation Technician: Merlin Charles MD #### SWCGP #### [address] [address] Energy And Conservation Technician: Antonino Nova MD Urine RBC's 0 TO 2 Normal 0-2 [facility] Comment on above: Performed By: #### U ANKITA, UA #### [facility] [address] [place] [address] Dr. [place], [place] [id number] [employer] Technician: Merlin Charles MD #### SWCGP #### [address] [address] [employer] And Conservation Technician: Antonino Nova MD Urine WBC's 10 TO 20 Normal 0-5 [facility] Comment on above: Performed By: #### U KIMO, UA #### [facility] [address] [place], [place] [id number] [employer] And Conservation Technician: Merlin Charles MD #### SWCGP #### [address] [address] [employer] And Conservation Technician: Antonino Nova MD HCV RNA,Quant,PCRon 09-15-19 23 HCV Quant [id number] IU/mL Normal [facility] Comment on above: Performed By: #### H CVQN #### [address] [place] [address] Energy And Conservation Technician: Antonino Nova MD [facility] [address] [place] [address] [place] [address] [employer] And Conservation Technician: Merlin Charles MD HCV [facility],Quant [facility]ed [facility] Comment on above: Result Comment: INTERPRETIVE INFORMATION: [...] (HCT/P). Performed By: #### H CVQN #### [address] [address] [employer] And Conservation Technician: Antonino Nova MD [facility] [address] [place] [address] [place] [address] Energy And Conservation Technician: Merlin Charles MD HCV,RNA Log 6.95 Log IU/mL Normal [facility] Comment on above: Performed By: #### H CVQN #### [address] [address] [employer] And Conservation Technician: Antonino Nova MD [facility] [address] [place] [address] [place] [address] [employer] And Conservation Technician: Merlin Charles MD [facility] 09-13-2022 Erythrocyte distribution width (RBC) [Ratio] 17.7 % High 11.8-14.4 [facility] Comment on above: Performed By: #### P HEP, HIVCMB #### [address] [place] [address] [employer] And Conservation Technician: Antonino Nova MD #### BMPCMP, BMP, CBC #### [address] [place] [address] Energy And Conservation Technician: Merlin Charles MD Hematocrit (Bld) [Volume fraction] 39.8 % Normal 36.3-47.1 [facility] Comment on above: Performed By: #### P HEP, HIVCMB #### [address] [address] [employer] And Conservation Technician: Antonino Nova MD #### BMPCMP, BMP, CBC #### [address] [place] [address] Energy And Conservation Technician: Merlin Charles MD Hemoglobin (Bld) [Mass/Vol] 13.5 g/dL Normal 11.9-15.1 [facility] Comment on above: Performed By: #### P HEP, HIVCMB #### [address] [address] [employer] And Conservation Technician: Antonino Nova MD #### BMPCMP, BMP, CBC #### [address] [place] [address] Energy And Conservation Technician: Merlin Charles MD MCH (RBC) [Entitic mass] 35.6 pg High 25.2-33.5 [facility] Comment on above: Performed By: #### P HEP, HIVCMB #### [address] [address] [employer] And Conservation Technician: Antonino Nova MD #### BMPCMP, BMP, CBC #### [address] [place] [address] Energy And Conservation Technician: Merlin Charles MD MCHC (RBC) [Mass/Vol] 33.9 g/dL Normal 28.4-34.8 [facility] Comment on above: Performed By: #### P HEP, HIVCMB #### [address] [place] [place] [address] [employer] And Conservation Technician: Antonino Nova MD #### BMPCMP, BMP, CBC #### [address] [place], [place] [id number] Energy And Conservation Technician: Merlin Charles MD MCV (RBC) [Entitic vol] 105.0 fL High 82.6-102.9 [facility] Comment on above: Performed By: #### P HEP, HIVCMB #### [address] [id number] Energy And Conservation Technician: Antonino Nova MD #### BMPCMP, BMP, CBC #### [facility] [address] [place] [address] [place] [address] Energy And Conservation Technician: Merlin Charles MD NRBC Automated 0.0 per 100 WBC Normal 0.0 [facility] Comment on above: Performed By: #### P HEP, HIVCMB #### [address] [id number] Energy And Conservation Technician: Antonino Nova MD #### BMPCMP, BMP, CBC #### [address] [place] [phone] Energy And Conservation Technician: Merlin Charles MD Platelet mean volume (Bld) [Entitic vol] 10.2 fL Normal 8.1-13.5 [facility] Comment on above: Performed By: #### P HEP, HIVCMB #### [address] [place], [place] [id number] Energy And Conservation Technician: Antonino Nova MD #### BMPCMP, BMP, CBC #### [address] [place] [address] Energy And Conservation Technician: Merlin Charles MD Platelets (Bld) [#/Vol] 128 10*3/uL Low 138-453 [facility] Comment on above: Performed By: #### P HEP, HIVCMB #### [address] [place], [place] [id number] [employer] Conservation Technician: Antonino Nova MD #### BMPCMP, BMP, CBC #### [facility] [address] [place] [address] Dr. [place] [phone] Energy And Conservation Technician: Merlin Charles MD RBC (Bld) [#/Vol] 3.79 10*6/uL Low 3.95-5.11 [facility] Comment on above: Performed By: #### P HEP, HIVCMB #### [place] [id number] Energy And Conservation Technician: Antonino Nova MD #### BMPCMP, BMP, CBC #### [address] [place] [phone] Energy And Conservation Technician: Merlin Charles MD WBC (Bld) [#/Vol] 3.7 10*3/uL Normal 3.5-11.3 [facility] Comment on above: Performed By: #### P HEP, HIVCMB #### [place] [id number] [employer] Conservation Technician: Antonino Nova MD #### BMPCMP, BMP, CBC #### [address] [place] [phone] [employer] And Conservation Technician: Merlin Charles MD Hematocrit (Bld) [Volume fraction] 39.8 % 36.3 - 47.1 % [facility] Hemoglobin (Bld) [Mass/Vol] 13.5 g/dL 11.9 - 15.1 g/dL [facility] Interpretation and review of laboratory results Abnormal [facility] MCH (RBC) [Entitic mass] 35.6 pg High 25.2 - 33.5 pg [facility] MCHC (RBC) [Mass/Vol] 33.9 g/dL 28.4 - 34.8 g/dL [facility] MCV (RBC) [Entitic vol] 105.0 fL High 82.6 - 102.9 fL [facility] NRBC Automated 0.0 0.0 per 100 WBC [facility] Platelet distribution width (Bld) [Ratio] 17.7 % High 11.8 - 14.4 % [facility] Platelet mean volume (Bld) [Entitic vol] 10.2 fL 8.1 - 13.5 fL [facility] Platelets (Bld) [#/Vol] 128 10*3/uL Low [facility] RBC (Bld) [#/Vol] 3.79 10*6/uL Low 3.95 - 5.1 1 m/uL [facility] WBC (Bld) [#/Vol] 3.7 10*3/uL [facility] Comp Metabolic Profon 2022 Albumin [Mass/Vol] 4.1 g/dL Normal 3.5-5.2 [facility] Comment on above: Performed By: #### P HEP, HIVCMB #### [address] [place], [place] [id number] [employer] Conservation Technician: Antonino Nova MD #### BMPCMP, BMP, CBC #### [facility] [address] [place] [address] [place] [address] Energy And Conservation Technician: Merlin Charles MD Albumin/Glob Ratio 2.1 Normal 1.0-2.5 [facility] Comment on above: Performed By: #### P HEP, HIVCMB #### [facility] [address] [place], [place] [phone] Energy And Conservation Technician: Antonino Nova MD #### BMPCMP, BMP, CBC #### [facility] [address] [place] [address] Energy And Conservation Technician: Merlin Charles MD Alkaline Phos 67 U/L Normal 35-104 [facility] Comment on above: Performed By: #### P HEP, HIVCMB #### [address] [address] [place] [address] Energy And Conservation Technician: Antonino Nova MD #### BMPCMP, BMP, CBC #### [facility] [address] [place], [place] [id number] Energy And Conservation Technician: Merlin Charles MD ALT [Catalytic activity/Vol] 41 U/L High 5-33 [facility] Comment on above: Performed By: #### P HEP, HIVCMB #### [address] [address] [employer] And Conservation Technician: Antonino Nova MD #### BMPCMP, BMP, CBC #### [address] [place] [address] Energy And Conservation Technician: Merlin Charles MD Anion gap [Moles/Vol] 6 mmol/L Low 9-17 [facility] Comment on above: Performed By: #### P HEP, HIVCMB #### [address] [address] [employer] And Conservation Technician: Antonino Nova MD #### BMPCMP, BMP, CBC #### [address] [place] [address] Energy And Conservation Technician: Merlin Charles MD AST [Catalytic activity/Vol] 52 U/L High <32 [facility] Comment on above: Performed By: #### P HEP, HIVCMB #### [address] [address] [employer] And Conservation Technician: Antonino Nova MD #### BMPCMP, BMP, CBC #### [address] [place] [address] Energy And Conservation Technician: Merlin Charles MD Bilirubin [Mass/Vol] 0.6 mg/dL Normal 0.3-1.2 [facility] Comment on above: Performed By: #### P HEP, HIVCMB #### [address] [address] [employer] And Conservation Technician: Antonino Nova MD #### BMPCMP, BMP, CBC #### [facility] [address] [place], [place] [id number] Energy And Conservation Technician: Merlin Charles MD BUN/CRE Ratio 16 Normal 9-20 [facility] Comment on above: Performed By: #### P HEP, HIVCMB #### [address] [address] Energy And Conservation Technician: Antonino Nova MD #### BMPCMP, BMP, CBC #### [address] [place], [place] [id number] Energy And Conservation Technician: Merlin Charles MD Calcium [Mass/Vol] 10.0 mg/dL Normal 8.6-10.4 [facility] Comment on above: Performed By: #### P HEP, HIVCMB #### [address] [address] [employer] And Conservation Technician: Antonino Nova MD #### BMPCMP, BMP, CBC #### [address] [place], [place] [id number] Energy And Conservation Technician: Merlin Charles MD Chloride [Moles/Vol] 108 mmol/L High 98-107 [facility] Comment on above: Performed By: #### P HEP, HIVCMB #### [address] [address] [employer] And Conservation Technician: Antonino Nova MD #### BMPCMP, BMP, CBC #### [facility] [address] [place] [address] [address] [place], [place] 1905883 Energy And Conservation Technician: Merlin Charles MD CO2 [Moles/Vol] 28 mmol/L Normal 20-31 [facility] Comment on above: Performed By: #### P HEP, HIVCMB #### [address] [address] Energy And Conservation Technician: Antonino Nova MD #### BMPCMP, BMP, CBC #### [facility] [address] [place] [address] Energy And Conservation Technician: Merlin Charles MD Creatinine [Mass/Vol] 0.61 mg/dL Normal 0.50-0.90 [facility] Comment on above: Performed By: #### P HEP, HIVCMB #### [address] [address] Energy And Conservation Technician: Antonino Nova MD #### BMPCMP, BMP, CBC #### [facility] [address] [place] [address] Energy And Conservation Technician: Merlin Charles MD GFR/1.73 sq M.predicted among non-blacks MDRD (S/P/Bld) [Vol rate/Area] mL/min/{1.73_m2} Normal >60 [facility] Comment on above: Result Comment: These results [...] Performed By: #### P HEP, HIVCMB #### [address] [address] [employer] And Conservation Technician: Antonino Nova MD #### BMPCMP, BMP, CBC #### [facility] [address] [place] [address] Energy And Conservation Technician: Merlin Charles MD Glucose [Mass/Vol] 87 mg/dL Normal 70-99 [facility] Comment on above: Performed By: #### P HEP, HIVCMB #### [address] [address] Energy And Conservation Technician: Antonino Nova MD #### BMPCMP, BMP, CBC #### [address] [place] [phone] Energy And Conservation Technician: Merlin Charles MD Potassium [Moles/Vol] 5.0 mmol/L Normal 3.7-5.3 [facility] Comment on above: Performed By: #### P HEP, HIVCMB #### [address] [address] [employer] And Conservation Technician: Antonino Nova MD #### BMPCMP, BMP, CBC #### [address] [place] [phone] Energy And Conservation Technician: Merlin Charles MD Protein [Mass/Vol] 6.1 g/dL Low 6.4-8.3 [facility] Comment on above: Performed By: #### P HEP, HIVCMB #### [address] [address] Energy And Conservation Technician: Antonino Nova MD #### BMPCMP, BMP, CBC #### [address] [place] [phone] Energy And Conservation Technician: Merlin Charles MD Sodium [Moles/Vol] 142 mmol/L Normal 135-144 [facility] Comment on above: Performed By: #### P HEP, HIVCMB #### [address] [address] Energy And Conservation Technician: Antonino Nova MD #### BMPCMP, BMP, CBC #### [address] [place] [phone] Energy And Conservation Technician: Merlin Charles MD Urea nitrogen [Mass/Vol] 10 mg/dL Normal 6-20 [facility] Comment on above: Performed By: #### P HEP, HIVCMB #### [address] [address] Energy And Conservation Technician: Antonino Nova MD #### BMPCMP, BMP, CBC #### [facility] [address] [place] [address] Energy And Conservation Technician: Merlin Charles MD [facility] Metabolic Pane [facility] 09-13-2022 Albumin [Mass/Vol] 4.1 g/dL 3.5 - 5.2 g/dL [facility] Albumin/Globulin [Mass ratio] 2.1 {ratio} 1.0 - 2.5 [facility] ALP [Catalytic activity/Vol] 67 U/L 35 - 104 U/L [facility] ALT [Catalytic activity/Vol] 41 U/L High 5 - 33 U/L [facility] Anion gap [Moles/Vol] 6 mmol/L Low 9 - 17 mmol/L [facility] AST [Catalytic activity/Vol] 52 U/L High NINF - 32 U/L [facility] Bilirubin [Mass/Vol] 0.6 mg/dL 0.3 - 1 .2 mg/dL [facility] Calcium [Mass/Vol] 10.0 mg/dL 8.6 - 10. 4 mg/dL [facility] Chloride [Moles/Vol] 108 mmol/L High 98 - 10 7 mmol/L [facility] CO2 [Moles/Vol] 28 mmol/L 20 - 31 mmol/L [facility] Creatinine [Mass/Vol] 0.61 mg/dL 0.50 - 0.90 mg/dL [facility] GFR/1.73 sq M.predicted MDRD (S/P/Bld) [Vol rate/Area] - PIN[facility] Comment on above: These results are not [...] [Mass/Vol] 87 mg/dL 70 - 99 mg/dL [facility] Interpretation and review of laboratory results Abnormal [facility] Potassium [Moles/Vol] 5.0 mmol/L 3.7 - 5.3 mmol/L [facility] Protein [Mass/Vol] 6.1 g/dL Low 6.4 - 8.3 g/dL [facility] Sodium [Moles/Vol] 142 mmol/L 135 - 144 mmol/L [facility] Urea nitrogen [Mass/Vol] 10 mg/dL 6 - 20 mg/dL [facility] Urea nitrogen/Creatinine (Bld) [Mass ratio] 16 9 - 20 [facility] HCG Qualitative, Serumon hCG Qual Negative NEGATIVE [facility] Comment on above: Specimens with hCG l evels near the threshold of the test (25 mIU/mL) may give a negative or indeterminate result. In such cases, another test should be performed with a new specimen in 48-72 hours. If early is suspected clinically in this setting, correlation with quantitative serum b-hCG level is suggested. Neul has confirmed the use of plasma for this test. This has not been cleared or approved by the U.S. Food and Drug Administration. The FDA has determined that such clearance is not necessary. [facility] HCG Screen, Bloodon 09-14-19 23 HCG Screen, Blood Negative Normal [facility] Comment on above: Result Comment: Spec imens with hCG levels near the threshold of the test (25 mIU/mL) may give a negative or indeterminate result. In such cases, another test should be performed with a new specimen in 48-72 hours. If early is suspected clinically in this setting, correlation with quantitative serum b-hCG level is suggested. Neul has confirmed the use of plasma for this test. This has not been cleared or approved by the U.S. Food and Drug Administration. The FDA has determined that such clearance is not necessary. Performed By: #### P HEP, HIVCMB #### [facility] [address] [place] [address] Energy And Conservation Technician: Antonino Nova MD #### BMPCMP, BMP, CBC #### [facility] [address] [place], [place] 2681583 Energy And Conservation Technician: Merlin Charles MD HCV RNA,Quant,PCRon 09-14-19 23 Source .PLASMA Normal [facility] Comment on above: Performed By: #### H CVQN #### [facility] [address] [place] [address] [employer] And Conservation Technician: Antonino Nova MD [address] [place], [place] [id number] Energy And Conservation Technician: Merlin Charles MD HIV Ag/Abon 09-13-2022 HIV Ag/Ab Non-Reactive Normal [facility] Comment on above: Result Comment: No l aboratory evidence of HIV infection. If acute HIV infection is suspected, consider testing for HIV-1 RNA. Performed By: #### P HEP, HIVCMB #### [address] [id number] Energy And Conservation Technician: Antonino Nova MD #### BMPCMP, BMP, CBC #### [address] [place] [address] Energy And Conservation Technician: Merlin Charles MD HIV Screenon 09-13-2022 HIV 1+2 Ab+HIV1 p24 Ag IA Ql Non-Reactive NONREACTIVE [facility] Comment on above: No laboratory eviden ce of HIV infection. If acute HIV infection is suspected, consider testing for HIV-1 RNA. [facility] Hepatitis Acute Jonnie 09-13 Hep A Ab,IgM Non-Reactive Normal [facility] Comment on above: Performed By: #### P HEP, HIVCMB #### [address] [address] [employer] And Conservation Technician: Antonino Nova MD #### BMPCMP, BMP, CBC #### [address] [place], [place] [id number] Energy And Conservation Technician: Merlin Charles MD Hep B Core Ab,IgM Non-Reactive Normal [facility] Comment on above: Performed By: #### P HEP, HIVCMB #### [address] [place] [address] Energy And Conservation Technician: Antonino Nova MD #### BMPCMP, BMP, CBC #### [facility] [address] [place] [address] [address] [place], [place] [id number] Energy And Conservation Technician: Merlin Charles MD Hep B Surf Ag Non-Reactive Normal [facility] Comment on above: Performed By: #### P HEP, HIVCMB #### [address] [address] [employer] And Conservation Technician: Antonino Nova MD #### BMPCMP, BMP, CBC #### [address] [place] [address] Energy And Conservation Technician: Merlin Charles MD Hep C Ab Reactive Abnormal [facility] Comment on above: Result Comment: The [...] Performed By: #### P HEP, HIVCMB #### [address] [address] Energy And Conservation Technician: Antonino Nova MD #### BMPCMP, BMP, CBC #### [facility] [address] [place] [address] [place] [address] Energy And Conservation Technician: Merlin Charles MD Hepatitis Panel, [facility] HAV IgM Ql (S) Non-Reactive NONREACTIVE [facility] HBV core IgM Ql (S) Non-Reactive NONREACTIVE CONNIE N [facility] HBV surface Ag IA Ql Non-Reactive NONREACTIVE B ON [facility] HCV Ab IA Ql Reactive Abnormal NONREACTIVE [facility] Comment on above: The hepatitis C [...] Interpretation and review of laboratory results Abnormal [facility] Comp Metabolic Addonon 04-20 Albumin [Mass/Vol] 4.5 g/dL Normal 3.5-5.2 [facility] Comment on above: Performed By: #### P HEP, HIVCMB #### [address] [place] [address] Energy And Conservation Technician: Antonino Nova MD #### BMPCMP, BMP, CBC #### [facility] [address] [place] [address] Energy And Conservation Technician: Merlin Charles MD Albumin/Glob Ratio 2.0 Normal 1.0-2.5 [facility] Comment on above: Performed By: #### P HEP, HIVCMB #### [address] [place] [address] Energy And Conservation Technician: Antonino Nova MD #### BMPCMP, BMP, CBC #### [facility] [address] [place] [address] Energy And Conservation Technician: Merlin Charles MD Alkaline Phos 81 U/L Normal 35-104 [facility] Comment on above: Performed By: #### P HEP, HIVCMB #### [address] [place] [address] Energy And Conservation Technician: Antonino Nova MD #### BMPCMP, BMP, CBC #### [facility] [address] [place] [address] Energy And Conservation Technician: Merlin Charles MD ALT [Catalytic activity/Vol] 106 U/L High 5-33 [facility] Comment on above: Performed By: #### P HEP, HIVCMB #### [facility] [address] [place] [address] Energy And Conservation Technician: Antonino Nova MD #### BMPCMP, BMP, CBC #### [facility] [address] [place] [address] [address]. [place], [place] [id number] Energy And Conservation Technician: Merlin Charles MD AST [Catalytic activity/Vol] 77 U/L High <32 [facility] Comment on above: Performed By: #### P HEP, HIVCMB #### [address] [address] Energy And Conservation Technician: Antonion Nova MD #### BMPCMP, BMP, CBC #### [facility] [address] [place] [address] [place] [id number] [employer] And Conservation Technician: Merlin Charles MD Bilirubin [Mass/Vol] 0.6 mg/dL Normal 0.3-1.2 [facility] Comment on above: Performed By: #### P HEP, HIVCMB #### [address] [address] Energy And Conservation Technician: Antonino Nova MD #### BMPCMP, BMP, CBC #### [facility] [address] [place] [address] [address] [place] [phone] Energy And Conservation Technician: Merlin Charles MD Protein [Mass/Vol] 6.7 g/dL Normal 6.4-8.3 [facility] Comment on above: Performed By: #### P HEP, HIVCMB #### [address] [place] [address] [employer] And Conservation Technician: Antonino Nova MD #### BMPCMP, BMP, CBC #### [facility] [address] [place] [address] [address] [place], [place] [id number] Energy And Conservation Technician: Merlin Charles MD HCV RNA,Quant,PCRon 04-20-20 HCV Quant 1,330,000 IU/mL Normal [facility] Comment on above: Performed By: #### P HEP, HIVCMB #### [address] [place] [address] [employer] And Conservation Technician: Antonino Nova MD #### BMPCMP, BMP, CBC #### [facility] [address] [place] [address] [place] [address] [employer] And Conservation Technician: Merlin Charles MD HCV RNA,Quant Detected Abnormal NOTDET [facility] Comment on above: Result Comment: HCV RNA [...] Performed By: #### P HEP, HIVCMB #### [address] [address] [employer] And Conservation Technician: Antonino Nova MD #### BMPCMP, BMP, CBC #### [address] [place] [address] Energy And Conservation Technician: Merlin Charles MD HCV,RNA Log 6.12 Log IU/mL [facility] Comment on above: Performed By: #### P HEP, HIVCMB #### [address] [place] [address] [employer] And Conservation Technician: Antonino Nova MD #### BMPCMP, BMP, CBC #### [facility] [address] [place] [address] [place] [address] Energy And Conservation Technician: Merlin Charles MD Basic Metabolic Profon 04-19 Anion gap [Moles/Vol] 7 mmol/L Low 9-17 [facility] Comment on above: Performed By: #### P HEP, HIVCMB #### [address] [place] [address] [employer] Technician: Antonino Nova MD #### BMPCMP, BMP, CBC #### [facility] [address] [place], [place] [id number] Energy And Conservation Technician: Merlin Charles MD BUN/CRE Ratio 20 Normal 9-20 [facility] Comment on above: Performed By: #### P HEP, HIVCMB #### [address] [address] [employer] And Conservation Technician: Antonino Nova MD #### BMPCMP, BMP, CBC #### [facility] [address] [place] [address] Dr. [place] [id number] [employer] Conservation Technician: Merlin Charles MD Calcium [Mass/Vol] 9.9 mg/dL Normal 8.6-10.4 [facility] Comment on above: Performed By: #### P HEP, HIVCMB #### [address] [address] [employer] And Conservation Technician: Antonino Nova MD #### BMPCMP, BMP, CBC #### [facility] [address] [place] [address] Dr. [place] [id number] [employer] Conservation Technician: Merlin Charles MD Chloride [Moles/Vol] 106 mmol/L Normal 98-107 [facility] Comment on above: Performed By: #### P HEP, HIVCMB #### [address] [address] [employer] Conservation Technician: Antonino Nova MD #### BMPCMP, BMP, CBC #### [facility] [address] [place], [place] [id number] [employer] Conservation Technician: Merlin Charles MD CO2 [Moles/Vol] 29 mmol/L Normal 20-31 [facility] Comment on above: Performed By: #### P HEP, HIVCMB #### [facility] [address] [place], [place] [id number] Energy [employer] Conservation Technician: Antonino Nova MD #### BMPCMP, BMP, CBC #### [facility] [address] [place] [address] [employer] Conservation Technician: Merlin Charles MD Creatinine [Mass/Vol] 0.79 mg/dL Normal 0.50-0.90 [facility] Comment on above: Performed By: #### P HEP, HIVCMB #### [place] [address] [place], [place] [id number] [employer] Conservation Technician: Antonino Nova MD #### BMPCMP, BMP, CBC #### [address] [place] [address] [employer] Conservation Technician: Merlin Charles MD GFR/1.73 sq M.predicted among non-blacks MDRD (S/P/Bld) [Vol rate/Area] mL/min/{1.73_m2} Normal >60 [facility] Comment on above: Result Comment: Effective Feb [...] Performed By: #### P HEP, HIVCMB #### [facility] [address] [place], [place] [id number] [employer] Conservation Technician: Antonino Nova MD #### BMPCMP, BMP, CBC #### [facility] [address] [place] [address] [employer] Conservation Technician: Merlin Charles MD Glucose [Mass/Vol] 98 mg/dL Normal 70-99 [facility] Comment on above: Performed By: #### P HEP, HIVCMB #### [facility] [address] [place] [address] [employer] Conservation Technician: Antonino Nova MD #### BMPCMP, BMP, CBC #### [facility] [address] [place] [address] Dr[address] [place], [place] [id number] [employer] Technician: Merlin Charles MD Potassium [Moles/Vol] 4.6 mmol/L Normal 3.7-5.3 [facility] Comment on above: Performed By: #### P HEP, HIVCMB #### [address] [address] [employer] And Conservation Technician: Antonino Nova MD #### BMPCMP, BMP, CBC #### [address] [place] [address] Energy And Conservation Technician: Merlin Charles MD Sodium [Moles/Vol] 142 mmol/L Normal 135-144 [facility] Comment on above: Performed By: #### P HEP, HIVCMB #### [address] [address] [employer] And Conservation Technician: Antonino Nova MD #### BMPCMP, BMP, CBC #### [address] [place] [address] [employer] And Conservation Technician: Merlin Charles MD Urea nitrogen [Mass/Vol] 16 mg/dL Normal 6-20 [facility] Comment on above: Performed By: #### P HEP, HIVCMB #### [address] [address] [employer] And Conservation Technician: Antonino Nova MD #### BMPCMP, BMP, CBC #### [address] [place], [place] [id number] Energy And Conservation Technician: Merlin Charles MD [facility] 04-19-2022 Erythrocyte distribution width (RBC) [Ratio] 15.2 % High 11.8-14.4 [facility] Comment on above: Performed By: #### P HEP, HIVCMB #### [address] [address] [employer] And Conservation Technician: Antonino Nova MD #### BMPCMP, BMP, CBC #### [address] [place] [phone] Energy And Conservation Technician: Merlin Charles MD Hematocrit (Bld) [Volume fraction] 41.4 % Normal 36.3-47.1 [facility] Comment on above: Performed By: #### P HEP, HIVCMB #### [place] [address] Energy And Conservation Technician: Antonino Nova MD #### BMPCMP, BMP, CBC #### [address] [place] [phone] Energy And Conservation Technician: Merlin Charles MD Hemoglobin (Bld) [Mass/Vol] 13.3 g/dL Normal 11.9-15.1 [facility] Comment on above: Performed By: #### P HEP, HIVCMB #### [place] [address] Energy And Conservation Technician: Antonino Nova MD #### BMPCMP, BMP, CBC #### [address] [place] [phone] Energy And Conservation Technician: Merlin Charles MD MCH (RBC) [Entitic mass] 33.8 pg High 25.2-33.5 [facility] Comment on above: Performed By: #### P HEP, HIVCMB #### [place] [id number] [employer] Conservation Technician: Antonino Nova MD #### BMPCMP, BMP, CBC #### [address] [place] [phone] [employer] Conservation Technician: Merlin Charles MD MCHC (RBC) [Mass/Vol] 32.1 g/dL Normal 28.4-34.8 [facility] Comment on above: Performed By: #### P HEP, HIVCMB #### [address] [id number] [employer] Conservation Technician: Antonino Nova MD #### BMPCMP, BMP, CBC #### [address] [place] [id number] Energy And Conservation Technician: Merlin Charles MD MCV (RBC) [Entitic vol] 105.3 fL High 82.6-102.9 [facility] Comment on above: Performed By: #### P HEP, HIVCMB #### [place] [id number] [employer] Conservation Technician: Antonino Nova MD #### BMPCMP, BMP, CBC #### [address] [place] [id number] [employer] Conservation Technician: Merlin Charles MD NRBC Automated 0.0 per 100 WBC Normal 0.0 [facility] Comment on above: Performed By: #### P HEP, HIVCMB #### [place] [id number] [employer] Conservation Technician: Antonino Nova MD #### BMPCMP, BMP, CBC #### [address] [place] [id number] [employer] Conservation Technician: Merlin Charles MD Platelet mean volume (Bld) [Entitic vol] 9.1 fL Normal 8.1-13.5 [facility] Comment on above: Performed By: #### P HEP, HIVCMB #### [place] [id number] [employer] Conservation Technician: Antonino Nova MD #### BMPCMP, BMP, CBC #### [address] [place] [id number] [employer] And Conservation Technician: Merlin Charles MD Platelets (Bld) [#/Vol] 203 10*3/uL Normal 138-453 [facility] Comment on above: Performed By: #### P HEP, HIVCMB #### [address] [address] Energy And Conservation Technician: Antonino Nova MD #### BMPCMP, BMP, CBC #### [facility] [address] [place] [address] Dr. [place] [phone] [employer] Conservation Technician: Merlin Charles MD RBC (Bld) [#/Vol] 3.93 10*6/uL Low 3.95-5.11 [facility] Comment on above: Performed By: #### P HEP, HIVCMB #### [address] [address] [employer] And Conservation Technician: Antonino Nova MD #### BMPCMP, BMP, CBC #### [address] [place] [phone] [employer] Conservation Technician: Merlin Charles MD WBC (Bld) [#/Vol] 4.1 10*3/uL Normal 3.5-11.3 [facility] Comment on above: Performed By: #### P HEP, HIVCMB #### [address] [address] [employer] And Conservation Technician: Antonino Nova MD #### BMPCMP, BMP, CBC #### [facility] [address] [place] [address] [address] [place], [place] [id number] [employer] Conservation Technician: Merlin Charles MD HCV RNA,Quant,PCRon 04-19-20 22 Source .PLASMA Normal [facility] Comment on above: Performed By: #### P HEP, HIVCMB #### [address] [address] [employer] And Conservation Technician: Antonino Nova MD #### BMPCMP, BMP, CBC #### [address] [place] [address] Energy And Conservation Technician: Merlin Charles MD HIV Ag/Abon 04-19-2022 HIV Ag/Ab Non-Reactive Normal [facility] Comment on above: Result Comment: No l aboratory evidence of HIV infection. If acute HIV infection is suspected, consider testing for HIV-1 RNA. Performed By: #### P HEP, HIVCMB #### [address] [address] [employer] And Conservation Technician: Antonino Nova MD #### BMPCMP, BMP, CBC #### [address] [place] [address] Energy And Conservation Technician: Merlin Charles MD Hepatitis Acute [facility] 04-19 Hep A Ab,IgM Non-Reactive Normal [facility] Comment on above: Performed By: #### P HEP, HIVCMB #### [address] [address] [employer] And Conservation Technician: Antonino Nova MD #### BMPCMP, BMP, CBC #### [address] [place] [address] Energy And Conservation Technician: Merlin Charles MD Hep B Core Ab,IgM Non-Reactive Normal [facility] Comment on above: Performed By: #### P HEP, HIVCMB #### [address] [address] [employer] And Conservation Technician: Antonino Nova MD #### BMPCMP, BMP, CBC #### [address] [place] [address] Energy And Conservation Technician: Merlin Charles MD Hep B Surf Ag Non-Reactive Normal [facility] Comment on above: Performed By: #### P HEP, HIVCMB #### [address] [address] Energy And Conservation Technician: Antonino Nova MD #### BMPCMP, BMP, CBC #### [facility] [address] [place] [address] Energy And Conservation Technician: Merlin Charles MD Hep C Ab Reactive Abnormal [facility] Comment on above: Result Comment: The [...] Performed By: #### P HEP, HIVCMB #### [facility] [address] [place], [place] [id number] Energy And Conservation Technician: Antonino Nova MD #### BMPCMP, BMP, CBC #### [address] [place] [address] Energy And Conservation Technician: Merlin Charles MD [facility] 11-09-2021 Hematocrit (Bld) [Volume fraction] 39.5 % 36.3 - 47.1 % [facility] Hemoglobin (Bld) [Mass/Vol] 12.6 g/dL 11.9 - 15.1 g/dL [facility] Interpretation and review of laboratory results Abnormal [facility] MCH (RBC) [Entitic mass] 32.6 pg 25.2 - 33.5 pg [facility] MCHC (RBC) [Mass/Vol] 31.9 g/dL 28.4 - 34.8 g/dL [facility] MCV (RBC) [Entitic vol] 102.3 fL 82.6 - 102.9 fL [facility] NRBC Automated 0.0 0.0 per 100 WBC [facility] Platelet distribution width (Bld) [Ratio] 14.9 % High 11.8 - 14.4 % [facility] Platelet mean volume (Bld) [Entitic vol] 9.7 fL 8.1 - 13.5 fL [facility] Platelets (Bld) [#/Vol] 175 10*3/uL [facility] RBC (Bld) [#/Vol] 3.86 10*6/uL Low 3.95 - 5.1 1 m/uL [facility] WBC (Bld) [#/Vol] 3.4 10*3/uL Low [facility] Comprehensive Metabolic Pane elvin 11-09-2021 Albumin [Mass/Vol] 4.7 g/dL 3.5 - 5.2 g/dL [facility] Albumin/Globulin [Mass ratio] 2.5 {ratio} [facility] ALP (Bld) [Catalytic activity/Vol] 76 U/L 35 - 104 U/L [facility] ALT [Catalytic activity/Vol] 50 U/L High 5 - 33 U/L [facility] Anion gap [Moles/Vol] 10 mmol/L 9 - 17 mmol/L [facility] AST [Catalytic activity/Vol] 40 U/L High <32 [facility] Bilirubin [Mass/Vol] 0.55 mg/dL 0.3 - 1 .2 mg/dL [facility] Calcium [Mass/Vol] 10.4 mg/dL 8.6 - 10. 4 mg/dL [facility] Chloride [Moles/Vol] 107 mmol/L 98 - 10 7 mmol/L [facility] CO2 [Moles/Vol] 25 mmol/L 20 - 31 mmol/L [facility] Creatinine [Mass/Vol] 0.72 mg/dL 0.50 - 0.90 mg/dL [facility] Free PSA/Total PSA [Mass fraction] 6.6 g/dL 6.4 - 8.3 g/dL [facility] GFR >60 >60 mL/min [facility] GFR Non- >60 >60 mL/min [facility] Glucose [Mass/Vol] 76 mg/dL 70 - 99 mg/dL [facility] Interpretation and review of laboratory results Abnormal [facility] Potassium [Moles/Vol] 3.9 mmol/L 3.7 - 5.3 mmol/L [facility] Sodium [Moles/Vol] 142 mmol/L 135 - 144 mmol/L [facility] Urea nitrogen (BldV) [Mass/Vol] 12 mg/dL 6 - 20 mg/dL [facility] Urea nitrogen/Creatinine (Bld) [Mass ratio] 17 [facility] HCG Qualitative, Serumon hCG Qual Negative NEGATIVE [facility] Comment on above: Specimens with hCG l evels near the threshold of the test (25 mIU/mL) may give a negative or indeterminate result. In such cases, another test should be performed with a new specimen in 48-72 hours. If early is suspected clinically in this setting, correlation with quantitative serum b-hCG level is suggested. [facility] has confirmed the use of plasma for this test. This has not been cleared or approved by the U.S. Food and Drug Administration. The FDA has determined that such clearance is not necessary. [facility] HIV Screenon 11-09-2021 HIV Ag/Ab Non-Reactive NONREACTIVE [facility] Comment on above: No laboratory eviden ce of HIV infection. If acute HIV infection is suspected, consider testing for HIV-1 RNA. [facility] Hepatitis Panel, Acuteon HAV IgM IA Qn (S) Non-Reactive NONREACTIVE [facility] Hep B Core Ab, IgM Non-Reactive NONREACTIVE [facility] Hepatitis B Surface Ag Non-Reactive NONREACTIVE [facility] Hepatitis C Ab Reactive Abnormal NONREACTIVE [facility] Comment on above: The hepatitis C procedure [...] Interpretation and review of laboratory results Abnormal [facility] Laboratory - Chemistry and C hemistry - challengeon 11-09-2021 GFR/1.73 sq M.predicted MDRD (S/P/Bld) [Vol rate/Area] [facility] Comment on above: Average GFR for 20-2 9 years old: 116 mL/min/1.73sq m Chronic Kidney Disease: <60 mL/min/1.73sq m Kidney failure: <15 mL/min/1.73sq m eGFR calculated using average adult body mass. Additional eGFR calculator available at: http://www.[employer]/multiple_crcl_2012.htm Stage 1: Some kidney damage normal GFR Stage 2: Mild kidney damage GFR 60-89 Stage 3: Moderate kidney damage GFR 30-59 Stage 4: Severe kidney damage GFR 15-29 Stage 5: Severe kidney damage GFR <15 ESRD - chronic treatment by dialysis or transplant Microscopic Urinalysison - [facility] Bacteria, UA 4+ Abnormal None [facility] Epithelial Cells UA 2 TO 5 [facility] Interpretation and review of laboratory results Abnormal [facility] Mucus, UA 1+ Abnormal None [facility] RBC, UA 0 TO 2 [facility] WBC, UA 20 TO 50 [facility] Urinalysis with Reflex to Cu ltureon 10-27-2021 Bilirubin Urine SMALL Abnormal NEGATIVE [facility] Color, UA Yellow Yellow [facility] Glucose, Ur Negative NEGATIVE [facility] Interpretation and review of laboratory results Abnormal [facility] Ketones Ql (U) Negative NEGATIVE [facility] Leukocyte esterase Test strip Ql (U) MODERATE Abnormal NEGATIVE [facility] Nitrite, Urine Negative NEGATIVE [facility] pH, UA 6.5 [facility] Protein, UA TRACE Abnormal NEGATIVE [facility] Specific Golden, UA 1.025 High [facility] Turbidity UA SLIGHTLY CLOUDY Abnormal Clear [facility] Urine Hgb Negative NEGATIVE [facility] Urobilinogen, Urine Normal Normal [facility] Microscopic Urinalysison - [facility] Bacteria, UA 1+ Abnormal None [facility] Epithelial Cells UA 5 TO 10 [facility] Interpretation and review of laboratory results Abnormal [facility] RBC, UA 0 TO 2 [facility] WBC, UA 5 TO 10 [facility] Urinalysis with Reflex to Cu ltureon 10-07-2021 Bilirubin Urine Negative NEGATIVE [facility] Color, UA Yellow Yellow [facility] Glucose, Ur Negative NEGATIVE [facility] Interpretation and review of laboratory results Abnormal [facility] Ketones Ql (U) Negative NEGATIVE [facility] Leukocyte esterase Test strip Ql (U) MODERATE Abnormal NEGATIVE [facility] Nitrite, Urine Negative NEGATIVE [facility] pH, UA 5.5 [facility] Protein, UA Negative NEGATIVE [facility] Specific Golden, UA 1.025 High [facility] Turbidity UA Clear Clear [facility] Urine Hgb Negative NEGATIVE [facility] Urobilinogen, Urine Normal Normal [facility] SEROLOGYOrdered By: Suly Raman on 07-24-2021 HCG.beta subunit (U) [Moles/Vol] Negative Normal [facility] Man Sero Tobacco Screening.on 07-09- 022 Adult depression screening assessment Yes [facility] [employer] DO Work Phone: Tobacco use status CP a) Yes [facility] [employer] 250 DO Work Phone: Tobacco Screening. Yes [facility] [employer] 250 DO Work Phone: Tobacco Screening. 3-Nearly every day [facility] [employer] 250 DO Work Phone: Tobacco Screening. 2-More than half the days [facility] [employer] 250 DO Work Phone: Tobacco Screening. 0-Not at all [facility] [employer] 250 DO Work Phone: Tobacco Screening. Very Difficult [facility] [employer] 250 DO Work Phone: XR SHOULDER LT [...] by: Janine DURON Date: 2021-07-04 02:09 Normal [facility] Vital Signs Date Time Vital Sign Value Performing Clinician Facility 07-06-2023 15:10-0500 Body temperature 98.42 [degF] Adolfo Hernandez [facility] 07-06-2023 15:10-0500 Diastolic blood pressure 69 mm[Hg] Adolfo Hernandez [facility] 07-06-2023 15:10-0500 Heart rate 102 /min Adolfo Hernandez [facility] 07-06-2023 15:10-0500 Respiratory rate 16 /min Adolfo Hernandez [facility] 07-06-2023 15:10-0500 SaO2% (BldA) [Mass fraction] 100 % Adolfo Hernandez [facility] 07-06-2023 15:10-0500 Systolic blood pressure 100 mm[Hg] Adolfo Hernandez [facility] 07-24-2021 17:25-0400 Body temperature 96.98 [degF] Zev Hamlin [facility] 07-24-2021 17:25-0400 Heart rate 66 /min Zev Hamlin [facility] 07-24-2021 17:25-0400 Respiratory rate 110 /min Zev Hamlin [facility] 07-24-2021 17:25-0400 SaO2% (BldA) [Mass fraction] 100 % Zev Hamlin [facility] 07-24-2021 17:25-0400 Systolic blood pressure 68 mm[Hg] Zev Hamlin [facility] 07-24-2021 17:20-0400 Body temperature 97.7 [degF] Zev Hamlin [facility] 07-24-2021 17:20-0400 Diastolic blood pressure 63 mm[Hg] Zev Hamlin [facility] 07-24-2021 17:20-0400 Heart rate 65 /min Zev Hamlin [facility] 07-24-2021 17:20-0400 Respiratory rate 11 /min Zev Hamlin [facility] 07-24-2021 17:20-0400 SaO2% (BldA) [Mass fraction] 100 % Zev Hamlin [facility] 07-24-2021 17:20-0400 Systolic blood pressure 106 mm[Hg] Zev Hamlin [facility] 07-24-2021 17:05-0400 Diastolic blood pressure 70 mm[Hg] Zev Hamlin [facility] 07-24-2021 17:05-0400 Heart rate 78 /min Zev Hamlin [facility] 07-24-2021 17:05-0400 Respiratory rate 11 /min Zev Hamlin [facility] 07-24-2021 17:05-0400 SaO2% (BldA) [Mass fraction] 100 % Zev Hamlin [facility] 07-24-2021 17:05-0400 Systolic blood pressure 109 mm[Hg] Zev Hamlin [facility] 07-24-2021 17:00-0400 Diastolic blood pressure 54 mm[Hg] Zev Hamlin [facility] 07-24-2021 16:53-0400 Body temperature 97.52 [degF] Zev Hamlin [facility] 07-24-2021 11:18-0400 Blood Pressure Location Zev Hamlin [facility] 07-24-2021 11:18-0400 BP/Pulse Patient Position Zev Hamlin [facility] 07-24-2021 11:18-0400 Mean blood pressure 78 mm[Hg] Zev Hamlin [facility] 07-24-2021 11:17-0400 Blood Pressure Location Zev Hamlin [facility] 07-24-2021 11:17-0400 Body temperature 98.24 [degF] Zev Hamlin [facility] 07-24-2021 11:17-0400 BP/Pulse Patient Position Zev Hamlin [facility] 07-24-2021 11:17-0400 Mean blood pressure 84 mm[Hg] Zev Hamlin [facility] 07-24-2021 11:17-0400 Respiratory rate 16 /min Zev Hamlin [facility] 07-24-2021 11:17-0400 Heart rate 72 /min Zev Hamlin [facility] 07-09-2021 09:07-0500 Diastolic blood pressure 62 mm[Hg] No PCP None [facility] [employer] 250 DO Work Phone: 07-09-2021 09:07-0500 Systolic blood pressure 102 mm[Hg] No PCP None [facility] [employer] 250 DO Work Phone: 07-09-2021 09:01-0500 Body height 160.02 cm No PCP None [facility] [employer] 250 DO Work Phone: 07-09-2021 09:01-0500 Body mass index (BMI) [Ratio] 27.1 kg/m2 No PCP None [facility] [employer] 250 DO Work Phone: 07-09-2021 09:01-0500 Body surface area Derived from formula 1.73 m2 No PCP None [facility] [employer] 250 DO Work Phone: 07-09-2021 09:01-0500 Body weight 69.4 kg No PCP None [facility] 250 DO Work Phone: 07-09-2021 09:01-0500 Diastolic blood pressure 62 mm[Hg] No PCP None [facility] [employer] 250 DO Work Phone: 07-09-2021 09:01-0500 Heart rate 59 /min No PCP None [facility] [employer] 250 DO Work Phone: 07-09-2021 09:01-0500 Systolic blood pressure 104 mm[Hg] No PCP None [facility] [employer] 250 DO Work Phone: 07-09-2021 09:01-0500 18 1 No PCP None [facility] [employer] 250 DO Work Phone: Comment on above: PHQ-9 TS Encounters Encounter Date Encounter Type Care Provider Facility Start: 08-19-2023 End: 08-19-2023 Emergency department patient visit NO PCP NO PCP [facility] Start: 07-06-2023 End: 07-06-2023 Emergency department patient visit Adolfo Hernandez Facility:[facility] Start: 07-06-2023 End: 07-06-2023 Emergency department patient visit Adolfo Hernandez [facility] Start: 06-17-2023 End: 06-18-2023 ambulatory PB GARSIA [facility] Start: 02-16-2023 ambulatory [facility] Start: 01-19-2023 ambulatory [facility] Start: 01-06-2023 ambulatory [facility] Start: 12-10-2022 End: 12-11-2022 [facility] Start: 11-04-2022 ambulatory [facility] Start: 09-22-2022 End: 09-23-2022 [facility] Start: 09-13-2022 End: 09-14-2022 [facility] Start: 09-13-2022 End: 09-13-2022 [facility] Start: 09-10-2022 End: 09-11-2022 [facility] Start: 09-10-2022 End: 09-10-2022 Subsequent hospital visit by physician [facility] Start: 04-19-2022 End: 04-20-2022 ambulatory [facility] Start: 11-09-2021 End: 11-09-2021 Subsequent [facility] Start: 10-27-2021 End: 10-27-2021 Subsequent hospital visit [facility] Start: 10-06-2021 End: 10-06-2021 Subsequent [facility] visit [facility] Start: 07-24-2021 End: 07-24-2021 Admission to same day surgery center [facility]ev [facility] Start: 07-09-2021 Office consultation new/estab patient 60 min No PCP None -[facility] DO Work Phone: Start: 07-04-2021 End: 07-04-[address] RADHA MOE Facility: Start: 06-29-2021 End: 10-15-2021 Recurring [facility]ev [facility] Patient encounter status No PCP None - [facility] DO Work Phone: Procedures Date Procedure Procedure Detail Performing Clinician Start: 09-13-2022 Antibody hiv-1&hiv-2 single result Dez Mejia FRONT WORKER - TRAY WORKER Work Phone: Start: 09-13-2022 Comprehensive metabo lic panel Dez Mejia FRONT WORKER - TRAY WORKER Work Phone: Start: 11-09-2021 Antibody hiv-1&hiv-2 single result Dez Mejia FRONT WORKER - TRAY WORKER Work Phone: Start: 11-09-2021 Comprehensive metabo lic panel Dez Mejia FRONT WORKER - TRAY WORKER Work Phone: Start: 10-27-2021 Urinalysis microscop ic only Dez Mejia FRONT WORKER - TRAY WORKER Work Phone: Start: 10-27-2021 Urnls dip stick/tabl et rgnt auto w/o microscopy Dez Jackie FRONT WORKER - TRAY WORKER Work Phone: Start: 10-06-2021 Urinalysis microscop ic only Dez Mejia FRONT WORKER - TRAY WORKER Work Phone: Start: 10-06-2021 Urnls dip stick/tabl et rgnt auto w/o microscopy Dez Jackie FRONT WORKER - TRAY WORKER Work Phone: section No PCP None section Zev crawford INSERTION TRANSMITTE R IN CHEST 1 Zev Boubacar Comment on above: STATES IT IS NOT A P ACEMAKER-IT MONITORS HER HEART WHEN SHE HAS ONE OF HER NEUROCARDIAC SYNCOPE EPISODES Removal of cardiac pacemaker No PCP None Removal&rplcmt wrls car stimulator pg compnt Zev Hamlin NEGATED: Highlighted row has not occurred! Colonoscopy No PCP None Plan of Treatment Date Care Activity Detail Author Start: 08-01-2023 Influenza vaccination Flu vacc ine (Season Ended) [facility] Start: 01-06-2022 Screening for malign ant neoplasm of cervix [facility] Start: 12-31-2021 Influenza vaccination B ON [facility] Start: 11-25-2021 FUV, Provider: Ruddy Garcia, Status: Pen, Time: 3:00 PM FUV, Provider: Ruddy Garcia, Status: Pen, Time: 3:00 PM [facility] 250 DO Work Phone: Start: 07-15-2021 ECHO, Provider: DAJA MCCURDY [facility] ULTRASOUND 01,[id number], Status: Pen, Time: 11:30 AM ECHO, Provider: PRATIMA [facility] ULTRASOUND 01,[id number], Status: Pen, Time: 11:30 AM [facility] 250 DO Work Phone: Start: 07-15-2021 STRESS NUC, Provider : PRATIMA [facility] NUCLEAR 01,[id number], Status: Pen, Time: 11:30 AM STRESS NUC, Provider: PRATIMA [facility] NUCLEAR 01,[id number], Status: Pen, Time: 11:30 AM [facility] 250 DO Work Phone: Start: 01-06-2013 Screening for malign ant neoplasm of cervix Pap smear [facility] Start: 01-06-2011 DTaP/Tdap/Td vaccine (1 - Tdap) DTaP/Tdap/Td vaccine (1 - Tdap) [facility] Start: 01-06-2010 Hepatitis C screening Hepatitis C sc reen [facility] Start: 2004 Depression Screen Depression Screen [facility] Start: 01-06-1998 Pneumococcal 0-64 ye ars Vaccine (1 - PCV) Pneumococcal 0-64 years Vaccine (1 - PCV) [facility] Start: 01-06-1997 COVID-19 Vaccine (1) COVID-19 Vaccin e (1) [facility] Start: 01-06-1993 Varicella vaccine (1 of 2 - 2-dose childhood series) Varicella vaccine (1 of 2 - 2-dose childhood series) [facility] Start: 1992 COVID-19 Vaccine (#1) COVID-19 Vacci ne (#1) [facility] [employer] End: 10-27-2021 Culture, [facility] Work Phone: Comment on above: Once for 1 Occurrenc es starting 10/27/2021 until 10/27/2021 End: 09-13-2022 Hepatitis C RNA, quantitative, PCR [employer] Work Phone: Comment on above: Once for 1 Occurrenc es starting 09/13/2022 until 09/13/2022 Immunizations Immunization Date Immunization Notes Care Provider Seun marc 05-14-2012 influenza, seasonal, injectable Zve Hamlin [facility] Comment on above: Early/Late Reason: P atient Not Available/Off Unit 05-14-2012 measles, mumps and rubella virus vaccine Zev Hamlin [facility] Comment on above: Early/Late Reason: P atient Not Available/Off Unit Payers Date Payer Category Payer Unknown [id number] 2019 Unknown [id number] 1992 Unknown [id number] 1992 Unknown [id number] 1992 Unknown [id number] 1992 Unknown [id number] 1992 Unknown [id number] 1992 Unknown [id number] 1992 Unknown [id number] 1992 Unknown [id number] [id number] 1992 Unknown [id number] [id number] 1992 Unknown [id number] 1992 Unknown [id number] [id number] 1992 Unknown [id number] [id number] 1992 Unknown [id number] 1959 Unknown [id number] Unknown [facility] [employer] Social History Date Type Detail Facility Start: 08-14-2013 End: 10-13-2017 Consumes alcohol occasionally Consumes alcohol occasionally [place] [address] DO Work Phone: Comment on above: <1PPD; Start: 06-25-2021 Tobacco smoking status Light t obacco smoker (finding) [facility] Sex Assigned At Female [facility] Start: 08-14-2013 End: 10-13-2017 Tobacco smoking status OHIS Smokes tobacco daily [facility] [employer] Phone: History of tobacco use Cigarette Smoker [facility] [employer] Phone: Start: 08-14-2013 End: 10-13-2017 Tobacco use and exposure Smokeless tobacco non-user [facility] [employer] Phone: Start: 09-11-2018 Alcohol intake 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 DO Work Phone: Clinical Notes 07-24-2021 to 07-08-2023 Note Date & Type Note Facility 07-08-2023 Note Microbiology PROCEDURE: Cervical Culture [R1] SOURCE: Cerv BODY SITE: COLLECTED DATE/TIME: 07/06/2023 15:36 EST RECEIVED DATE/TIME: 07/06/2023 15:45 EST START DATE/TIME: 07/06/2023 15:45 EST FREE TEXT SOURCE: Louise JONAS, Bernadette Gil PA-C, Bernadette Adams FINAL REPORTS Final Report [] Verified Date/Time: 07/08/2023 12:41 EST 3+ Escherichia coli STAINS Wet Prep Report [] Verified Date/Time: 07/06/2023 16:10 EST No clue cells present No Trichomonas vaginalis present No yeast seen SUSCEPTIBILITY RESULTS __ LEGEND: S=Susceptible, N/R=Not Reported, Blank=Data not available, or drug not advisable or tested, I=Intermediate, ESBL=Extended spectrum beta-lactamase, R=Resistant, TFG=Thymidine-dependent strain, JOSE CARLOS=Beta-lactamase positive, TESSY=mcg/m;(mg/L), S*=Predicted susceptible interp, R*=Predicted resistant interp EC Antibiotic TESSY Dilutn TESSY Interp Amikacin <=16 S Ampicillin >16 R Ampicillin/ 16/8 I Sulbactam Aztreonam <=4 S Cefazolin 4 S Cefepime <=2 S Cefoxitin <=8 S Ceftazidime <=1 S Ceftazidime/ <=8 S Avibactam Ceftriaxone <=1 S Ciprofloxacin <=1 S Ertapenem <=0.5 S Gentamicin <=4 S Levofloxacin <=2 S Meropenem <=1 S Piperacillin/ <=16 S Tazobactam Tetracycline <=4 S Tigecycline <=2 S Tobramycin <=4 S Trimethoprim/ <=2/38 S Sulfa Performing Locations R1: This test was performed at: [facility], [address] [place] [address], [facility]- , , [facility] Comment on above: Performed By: #### [id number] #### [facility] [address] [place] [address] 07-06-2023 Hospital Discharge instructions Patient Education 07/06/2023 15:38:59 Viral Respiratory Infection, Sesa-An-Rzot Viral Respiratory Infection A viral respiratory infection is an illness that affects parts of the body that are used for breathing. These include the lungs, nose, and throat. It is caused by a germ called a virus. Some examples of this kind of infection are: A cold. The flu (influenza). A respiratory syncytial virus (RSV) infection. What are the causes? This condition is caused by a virus. It spreads from person to person. You can get the virus if: You breathe in droplets from someone who is sick. You come in contact with people who are sick. You touch mucus or other fluid from a person who is sick. What are the signs or symptoms? Symptoms of this condition include: A stuffy or runny nose. A sore throat. A cough. Shortness of breath. Trouble breathing. Yellow or green fluid in the nose. Other symptoms may include: A fever. Sweating or chills. Tiredness (fatigue). Achy muscles. A headache. How is this treated? This condition may be treated with: Medicines that treat viruses. Medicines that make it easy to breathe. Medicines that are sprayed into the nose. Acetaminophen or NSAIDs, such as ibuprofen, to treat fever. Follow these instructions at home: Managing pain and congestion Take ehkt-njk-annqmtr and prescription medicines only as told by your doctor. If you have a sore throat, gargle with salt water. Do this 3 4 times a day or as needed. ?To make salt water, dissolve 1 tsp (3 6 g) of salt in 1 cup (237 mL) of warm water. Make sure that all the salt dissolves. Use nose drops made from salt water. This helps with stuffiness (congestion). It also helps soften the skin around your nose. Take 2 tsp (10 mL) of honey at bedtime to lessen coughing at night. ?Do not give honey to children who are younger than 1 year old. Drink enough fluid to keep your pee (urine) pale yellow. General instructions Rest as much as possible. Do not drink alcohol. Do not smoke or use any products that contain nicotine or tobacco. If you need help quitting, ask your doctor. Keep all follow-up visits. How is this prevented? Get a flu shot every year. Ask your doctor when you should get your flu shot. Do not let other people get your germs. If you are sick: ?Wash your hands with soap and water often. Wash your hands after you cough or sneeze. Wash hands for at least 20 seconds. If you cannot use soap and water, use hand laundry tech. ?Cover your mouth when you cough. Cover your nose and mouth when you sneeze. ?Do not share cups or eating utensils. ?Clean commonly used objects often. Clean commonly touched surfaces. ?Stay home from work or school. Avoid contact with people who are sick during cold and flu season. This is in fall and winter. Get help if: Your symptoms last for 10 days or longer. Your symptoms get worse over time. You have very bad pain in your face or forehead. Parts of your jaw or neck get very swollen. You have shortness of breath. Get help right away if: You feel pain or pressure in your chest. You have trouble breathing. You faint or feel like you will faint. You keep vomiting and it gets worse. You feel confused. These symptoms may be an emergency. Get help right away. Call your local emergency services (911 in the [place] Do not wait to see if the symptoms will go away. Do not drive yourself to the hospital. Summary A viral respiratory infection is an illness that affects parts of the body that are used for breathing. Examples of this illness include a cold, the flu, and a respiratory syncytial virus (RSV) infection. The infection can cause a runny nose, cough, sore throat, and fever. Follow what your doctor tells you about taking medicines, drinking lots of fluid, washing your hands, resting at home, and avoiding people who are sick. This information is not intended to replace advice given to you by your health care provider. Make sure you discuss any questions you have with your health care provider. Document Revised: 07/23/2021 Document Reviewed: 07/23/2021 [employer] Patient Education 2022 [employer]. 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 [facility] Chief complaint Narrative - Reported DOUGLAS MYLES is being seen for a consultation for. POC abnormal ECG; Dr. Hamlin [facility] [address] Work Phone: Chief complaint Narrative - Reported DOUGLAS MYLES is being seen for a consultation for. POC abnormal ECG; Dr. Hamlin [facility] Work Phone: Evaluation + Plan note No data available for this section [facility] History of Present illness Narrative Patient is seen for preoperative risk assessment. She apparently presented for tubal ligation and procedure was canceled because of abnormal EKG.She has been in and out of the emergency room multiple times. Recently she was in [place] at the hospital and they also noted [...] correspond with the surgeon in this regard. [facility] [employer] DO Work Phone: History of Present illness Narrative Patient is seen for preoperative risk assessment. She apparently presented for tubal ligation and procedure was canceled because of abnormal EKG.She has been in and out of the emergency room multiple times. Recently she was in [place] at the [facility] and they also noted abnormal EKG [...] correspond with the surgeon in this regard. [facility] Work Phone: Hospital Discharge instructions No data available for this section [facility] Progress note No data available for this section [facility] Summary Purpose Family History No Family History Records Found Advance Directives No Advanced Directives Records FoundDocuments on File Type Date Recorded Patient Geodetic Technician Expl anation ACP-Advance Directive ACP-Power of Hand Marker Latest Code Status on File Code Status Date Activated Date Inactivated Comments Full Code 03/06/2018 12:17 AM 03/06/2018 4:09 AM Latest Code Status on File Code Status Date Activated Date Inactivated Comments Full Code 03/06/2018 12:17 AM 03/06/2018 4:09 AM Additional Source Comments INFORMATION SOURCE (unrecogn ized section and content) DATE CREATED AUTHOR 07/14/2021 [facility] DATE CREATED AUTHOR AUTHOR'S ORGANIZ ATION 12/12/2022 [facility] DATE CREATED AUTHOR AUTHOR'S ORGANIZ ATION 02/17/2023 [facility] DATE CREATED AUTHOR AUTHOR'S ORGANIZ ATION 07/24/[address] [facility] DATE CREATED AUTHOR AUTHOR'S ORGANIZ ATION 08/21/2023 [facility] FOR RECORDS PERTAINING TO PATIENTS WHO ARE [...] BE BASED ON THE PRIMARY CLINICAL RECORDS. [employer] [facility]. provides no warranty or guarantee of the accuracy or completeness of information in this document.
[2023-09-06 18:47] VITALS: BP 104/52; PULSE 75; TEMP 37; O2SAT 98; BMI 25.9
--- NOTE | 2023-09-06 20:50 | ED.GENADUL1 ---
HPI HPI - General Adult General Chief complaint: Urogenital-Female Stated complaint: Sore Throat, Cough, General Weakness Time Seen by Provider: 09/06/23 19:52 Source: patient and friend Mode of arrival: walk-in Limitations: no limitations History of Present Illness HPI narrative: This 33-year-old female with history of substance abuse presents for evaluation of one month of generalized illness. She was seen at [facility] and diagnosed with a virus. She states that she was told that she had a urinary tract infection and couplets was going to be called into her pharmacy but she went to the pharmacy and there was no prescriptions for her. She states she is having ongoing nausea and episodes of diarrhea. She denies any abdominal pain. She states that she had a fever when her symptoms 1st started but has not had any fever for the past several days. She states she has a history of hepatitis C but has not had any medications for it and thinks that her body fight the illness. She has no chest pain or shortness of breath. She does admit to one pack of cigarette smoking per day. She is on Suboxone. She states that she feels similar when she had hepatitis C and recently had a relapse and shared a needle was somebody. She is not having any jaundice or weight loss. She has a sore throat. Mucous members are dry. She is still having some dysuria but denies any hematuria. She declines STD testing states that she had STD testing when she was recently in rehab. Related Data Home Medications ?Medication ?Instructions ?Recorded ?Confirmed bupropion HCl 300 mg 24 hr tablet, 300 mg PO DAILY 11/09/22 11/09/22 extended release ibuprofen 800 mg tablet mg 11/09/22 trazodone 100 mg tablet mg 11/09/22 no medications 05/22/23 Previous Rx's ?Medication ?Instructions ?Recorded nystatin 100,000 unit/mL oral 400,000 unit (4 mL) buccal QID 14 10/10/22 suspension days #224 mL sulfamethoxazole 800 1 tab PO BID 5 days #10 tabs 10/10/22 mg-trimethoprim 160 mg tablet (Bactrim DS) ketorolac 10 mg tablet 10 mg PO TID PRN pain #12 tabs 01/17/23 benzonatate 100 mg capsule 100 mg PO TID PRN cough #20 caps 01/27/23 doxycycline hyclate 100 mg capsule 100 mg PO BID 10 days #20 caps 01/27/23 Allergies Allergy/AdvReac Type Severity Reaction Status Date / Time No Known Drug Allergies Allergy Verified 05/22/23 03:22 Opioid HPI Opioid Management Most Recent Opioid Data: Last Pain Scale 6 05/22/23 03:30 Ur Phencyclidine Scrn Negative (NEGATIVE) 11/09/22 20:25 Review of Systems ROS Status of ROS 10 or more systems reviewed and unremarkable except as noted in history and below PFSH PFSH Social History Smoking status: Current every day smoker Exam Narrative Exam Narrative: Nurses note and vital signs reviewed and patient is not hypoxic. General: The patient appears well and in no apparent distress. Patient is resting comfortably on cart. Skin: Warm, dry, no pallor noted. There is no rash noted. Head: Normocephalic, atraumatic Eye: Normal conjunctiva, no drainage, EOMI. PERRL, No scleral icterus Ears, Nose, Mouth, and Throat: oral mucosa is sticky, there is no tonsillar Erythema or exudate. No peritonsillar abscess noted Neck: Supple, no meningeal signs Cardiovascular: Regular Rate and Rhythm S1S2, pulses are brisk and equal bilaterally Respiratory: Patient is in no distress, no accessory muscle use, lungs are clear to auscultation, no wheezing, rales or rhonchi Back: non-tender, no CVA tenderness bilaterally to percussion. GI: Normal bowel sounds, no tenderness to palpation, no masses appreciated. No rebound, guarding, or rigidity noted. Musculoskeletal: The patient has no evidence of calf tenderness, no pitting edema, symmetrical pulses noted bilaterally Neurological: A&O x4, normal speech Psychiatric: Cooperative Constitutional Vital Signs, click to edit/add: Last Vital Signs Temp 98.6 F 09/06/23 18:47 Pulse 76 09/06/23 22:06 Resp 16 09/06/23 22:06 BP 104/52 09/06/23 18:47 Pulse Ox 98 09/06/23 22:06 O2 Del Method Room Air 09/06/23 18:47 Course Vital Signs Vital signs: Vital Signs Temperature 98.6 F 09/06/23 18:47 Pulse Rate 75 09/06/23 18:47 Respiratory Rate 16 09/06/23 18:47 Blood Pressure 104/52 09/06/23 18:47 Pulse Oximetry 98 09/06/23 18:47 Oxygen Delivery Method Room Air 09/06/23 18:47 Temperature 98.6 F 09/06/23 18:47 Pulse Rate 76 09/06/23 22:06 Respiratory Rate 16 09/06/23 22:06 Blood Pressure 104/52 09/06/23 18:47 Pulse Oximetry 98 09/06/23 22:06 Oxygen Delivery Method Room Air 09/06/23 18:47 Medical Decision Making [facility] Narrative Medical decision making narrative: This 33-year-old female presents for evaluation of generalized weakness with nausea, urinary symptoms with dysuria. She did get diagnosed with a urinary tract infection approximately one month ago. At that time was noted that she had a low white count at 3, low potassium at 2.8 and bilirubin was mildly elevated at 1.4. She states that she has had hepatitis C in the past but she wanted to get it treated she was told that she no longer has it and thinks that her body for the hepatitis C off. She is not jaundiced. Her vital signs are stable. Her abdomen is soft and did not appreciate any hepatosplenomegaly. Due to her multiple complaints strep, mono, influenza and Coban testing were ordered. They are negative. She does have a urinary tract infection with greater than 100 white blood cells per high-power field. She declined the need for STD testing. Her white count today is 2. Hemoglobin is 8.2. Electrolytes were otherwise normal. He is medicated emergency department with IV fluids, Zofran and 1 g of IV Rocephin for the urinary tract infection. I discussed the results of her labs with her. She will likely need more thorough investigation into the etiology of her low white count and hemoglobin. I did encourage her to start taking iron she will be discharged home with prescription for Keflex to use for her urinary tract infection. She'll be given referral information for family physicians taking new patients and I did refer her to the health Department for HIV and hepatitis testing. Lab Data Lab results reviewed: Yes I reviewed the patient's lab results Labs: Lab Results 09/06/23 09/06/23 09/06/23 Range/Units 20:34 21:03 21:05 WBC 2.0 L (4.0-11.0) 10^3/uL RBC 1.99 L (4.20-5.40) 10^6/uL Hgb 8.2 L (12.0-16.0) g/dL Hct 24.3 L (36.0-48.0) % MCV 122.1 H (81.0-99.0) fL MCH 41.2 H (26.7-34.0) pg MCHC 33.7 (29.9-35.2) g/dL RDW 19.9 H (11.0-15.0) % Plt Count 80 L (150-450) 10^3/uL MPV 11.7 (9.5-13.5) fL Sodium 143 (136-145) mmol/L Potassium 3.9 (3.5-5.1) mmol/L Chloride 108 H (98-107) mmol/L Carbon Dioxide 29.4 (21.0-32.0) mmol/L Anion Gap 9.5 BUN 14.0 (7.0-18.0) mg/dL Creatinine 0.58 (0.55-1.02) mg/dL Est GFR ( Amer) >60 (>=60) Est GFR (Non-Af Amer) >60 (>=60) BUN/Creatinine Ratio 24.1 Glucose 112 H (74-106) mg/dL Calcium 9.4 (8.5-10.1) mg/dL Total Bilirubin 1.4 H (0.2-1.0) mg/dL AST 66 H (15-37) U/L ALT 59 (14-59) U/L Alkaline Phosphatase 61 (46-116) U/L Total Protein 5.8 L (6.4-8.2) g/dL Albumin 3.2 L (3.4-5.0) g/dL Globulin 2.6 g/dL Albumin/Globulin Ratio 1.2 Urine Color Yellow (YELLOW) Urine Clarity Clear (CLEAR) Urine pH 5.5 (5.0-9.0) Ur Specific [place] >=1.030 A (1.005-1.025) Urine Protein Trace (NEG/TRACE) mg/dL Urine Glucose (UA) Negative (NEGATIVE) mg/dL Urine Ketones Trace A (NEGATIVE) mg/dL Urine Occult Blood Trace-i (NEGATIVE) Urine Nitrite Positive A (NEGATIVE) Urine Bilirubin Small A (NEGATIVE) Urine Urobilinogen 4.0 A (0.2-1.0) EU/dL Ur Leukocyte Esterase Large A (NEGATIVE) Urine RBC 0-2 (0-2) #/HPF Urine WBC >100 A (NONE SEEN) #/HPF Ur Squamous Epith Cells None seen (NONE/RARE) #/LPF Urine Crystals Seen A (None Seen) #/HPF Calcium Oxalate Crystal Many Amorphous Sediment Moderate Urine Bacteria Moderate A (NONE SEEN) #/HPF Urine Casts None seen (NONE SEEN) #/LPF Urine Mucus Small A (NONE SEEN) Ur Culture Indicated? Yes Urine HCG, Qual Negative (NEGATIVE) Influenza Type A Ag Negative Influenza Type B Ag Negative SARS-CoV-2 Ag (CV2AG) Negative (NEGATIVE) Streptococcus Screen Negative Discharge Plan Discharge Stand Alone Forms: Portal Instructions Chief Complaint: Urogenital-Female Clinical Impression: UTI (urinary tract infection), Anemia, Pancytopenia Patient Disposition: Home, Self-Care Time of Disposition Decision: 22:14 Condition: Good Prescriptions / Home Meds: No Action nystatin 100,000 unit/mL suspension 400,000 unit buccal QID 14 Days Qty: 224 0RF Rx Instructions: administer 1/2 of dose in each side of the mouth sulfamethoxazole-trimethoprim [Bactrim DS] 800-160 mg tablet 1 tab PO BID 5 Days Qty: 10 0RF bupropion HCl 300 mg tablet extended release 24 hr 300 mg PO DAILY ibuprofen 800 mg tablet trazodone 100 mg tablet ketorolac 10 mg tablet 10 mg PO TID PRN (Reason: pain) Qty: 12 0RF no medications doxycycline hyclate 100 mg capsule 100 mg PO BID 10 Days Qty: 20 0RF benzonatate 100 mg capsule 100 mg PO TID PRN (Reason: cough) Qty: 20 0RF Print Language: Peruvian Instructions: Urinary Tract Infection in Women (ED), Anemia (ED), Pancytopenia (DC) Additional Instructions: Follow up with the health department for further testing including HIV and Hepatitis. Use antibiotics as directed until gone and consider taking an iron supplement to help with your anemia Referrals: Physician,Non-Staff, [Primary Care Provider] - 1 week
[2023-09-06 20:51] LABS: Bilirubin Urine SMALL (NEGATIVE); Blood Urine TRACE-I (NEGATIVE); Clarity Urine CLEAR (CLEAR); Color Urine YELLOW (YELLOW); Glucose Urine UA NEGATIVE (NEGATIVE); Ketones Urine TRACE mg/dL (NEGATIVE); Leukocyte Esterase Urine LARGE (NEGATIVE); Nitrite Urine POSITIVE (NEGATIVE); Protein Urine TRACE mg/dL (NEG/TRACE); Specific Gravity Urine >=1.030 (1.005-1.025); pH Urine 5.5 (5.0-9.0)
[2023-09-06 20:56] LABS: Urine Microscopic Indicated YES
[2023-09-06 20:58] LABS: Bacteria Urine MODERATE #/HPF (NONE SEEN); Mucus Urine SMALL (NONE SEEN); RBC Urine 0-2 #/HPF (0-2); Squamous Epithelial Cell Urine NONE SEEN #/LPF (NONE/RARE); WBC Urine >100 #/HPF (NONE SEEN)
[2023-09-06 20:59] LABS: Amorphous Sediment Urine MODERATE; Calcium Oxalate Crystals Urine MANY; Cast Seen? NONE SEEN #/LPF (NONE SEEN); Crystals Seen? Seen #/HPF (None Seen); Urine Culture Indicated YES
[2023-09-06] MEDS: ONDANSETRON PF 4 MG/2 ML VIAL IV (21:16)
[2023-09-06] MEDS: 0.9 % SODIUM CHLORIDE 1,000 ML 1000 ML IV (21:17)
[2023-09-06 21:30] LABS: Hematocrit 24.3 % (36.0-48.0); Hemoglobin 8.2 g/dL (12.0-16.0); Mean Corpuscular HGB Conc 33.7 g/dL (29.9-35.2); Mean Corpuscular Hemoglobin 41.2 pg (26.7-34.0); Mean Corpuscular Volume 122.1 fL (81.0-99.0); Mean Platelet Volume 11.7 fL (9.5-13.5); Platelet Count 80 10^3/uL (150-450); Red Blood Count 1.99 10^6/uL (4.20-5.40); Red Cell Distribution Width 19.9 % (11.0-15.0)
[2023-09-06 21:41] LABS: Influenza Virus A Antigen Negative; Influenza Virus B Antigen Negative; Internal Control Within Normal Limits; SARS-CoV-2 Ag NEGATIVE (NEGATIVE); Strep A Antigen Screen Negative
[2023-09-06 21:43] LABS: HCG Qualitative Urine* NEGATIVE (NEGATIVE)
[2023-09-06 21:46] LABS: Alanine Aminotransferase 59 U/L (14-59); Albumin Globulin Ratio 1.2; Albumin Level 3.2 g/dL (3.4-5.0); Alkaline Phosphatase 61 U/L (46-116); Anion Gap 9.5; Aspartate Amino Transferase 66 U/L (15-37); BUN Creatinine Ratio 24.1; Bilirubin Total 1.4 mg/dL (0.2-1.0); Calcium 9.4 mg/dL (8.5-10.1); Carbon Dioxide 29.4 mmol/L (21.0-32.0); Chloride 108 mmol/L (98-107); Estimated GFR (African America >60 (>=60); Estimated GFR (Non-African Ame >60 (>=60); Globulin 2.6 g/dL; Glucose 112 mg/dL (74-106); Potassium 3.9 mmol/L (3.5-5.1); Sodium 143 mmol/L (136-145); Total Protein 5.8 g/dL (6.4-8.2)
[2023-09-06] MEDS: CEFTRIAXONE 1,000 MG in 0.9 % SODIUM CHLORIDE 50 ML 100 MG IV (22:00)
[2023-09-06 22:06] VITALS: PULSE 76; O2SAT 98
[2023-09-06 22:19] LABS: Mono Screen NEGATIVE (NEGATIVE)
[2023-09-06 22:26] LABS: Segmented Neut Absolute Manual 1.02 10^3/uL (1.4-6.5)
[2023-09-06 22:27] LABS: Anisocytosis 2+; Lymphocytes Absolute Manual 0.96 10^3/uL (1.20-3.80)
[2023-09-06 22:28] LABS: Macrocytosis 2+
[2023-09-06 22:53] VITALS: BP 90/50; PULSE 75; O2SAT 100
== END 2023-09-06 22:58 | disposition home or self-care (01) ==
PROVIDERS: Physician Assistant; Emergency Provider Emergency Medicine
DX: N39.0 Urinary tract infection, site not specified (principal); D64.9 Anemia, unspecified; D61.818 Other pancytopenia; F17.210 Nicotine dependence, cigarettes, uncomplicated; F11.20 Opioid dependence, uncomplicated
CPT/HCPCS: 36415; 80053; 81001; 84703; 85007; 85027; 86308; 87070; 87086; 87150; 87186; 87804; 87811; 87880; 96361; 96365; 96375; 99284

== ENCOUNTER 2023-10-11 17:05 | Emergency (ER) | payer OTHER, SELFPAY ==
[2023-10-11 17:17] VITALS: BP 96/54; PULSE 74; TEMP 36.4; O2SAT 100; BMI 26.6
--- OUTSIDE RECORDS SUMMARY | 2023-10-11 17:34 | XMS_ITS | CCD ---
Author Organization [facility] Inform ion Partnership DYNAMICS AX SOLUTION ARCHITECT [facility] Care Team Providers Care Spanish Teacher Name Role Phone None, No PCP Unavailable [...] Primary Care Unavailable FLAVIA WOODRUFF Attending Unavailab le NO PCP, NO PCP Primary Care Unavailable REF PROV, NOT IN SYSTEM Referring Unavaila BP [employer] Referring Unavailable SERVICES, [facility] Primary Care Unava ilable Medications Current Medications Medication Drug Class(es) Dates Sig (Normalized) Sig (Original) acetaminophen 325 mg / oxyCODONE hydrochloride 5 mg oral tablet (1 source) Opioid Agonist Start: 07-24-2021 End: 07-26-2021 Percocet 325 mg-5 mg Tab 1 tab(s), Oral, q6hr for pain for 2 day(s), 7 tab(s), Refill(s) 0, [facility]/pharmacy #[id number], 161, cm, 06/25/21 13:03:00 EST, Height/Length [...] by mouth 2 times daily 0 Active Orfoxfsp-Fas-Yf-FA ( VITAMINS PO) (5 sources) Lltyjqyk-Yny-To-FA ( VITAMINS PO) Take by mouth 0 [...] Test Name Value Interpretation Reference Range Facility HGB A1C (GLYCO-HGB)on 2023 Glucose [Mass/Vol] 117 mg/dL Normal [facility] Comment on above: Performed By: #### A #### [facility] ([id number]) [address] [place] [address], [address] [place] [address] #### 42854-2 #### [facility] ([id number]) [address] [place] [address], [place] [address] HbA1c (Bld) [Mass fraction] 5.7 % High 4.4-5.6 [facility] Comment on above: Result Comment: NOTE ADA Guidelines Result HgbA1c Normal : less than 5.7 % Prediabetes : 5.7 % to 6.4 % Diabetes : > 6.4 % Use with caution in patients with abnormal hemoglobin variants as the half-life of red blood cells and in vivo glycation rates are affected. Performed By: #### A HP #### [facility] ([id number]) [facility] [facility], [address] [place] [address] #### 43187-5 #### [facility] ([id number]) [address] [place] [address] 32657 Lipid 1996 panelon 4 Cholesterol [Mass/Vol] 99 mg/dL Low 150-200 [facility] Comment on above: Performed By: #### A HP #### [facility] ([id number]) [address] [place] [address], [address] [place] [address] #### 99454-7 #### [facility] ([id number]) [address] [place] [address] 69954 Cholesterol in HDL [Mass/Vol] 29 mg/dL Low >39 [facility] Comment on above: Result Comment: HDL <40 mg/dL - High Risk HDL > or = 40mg/dL- Desirable HDL >60 mg/dL - Negative Risk Performed By: #### A HP #### [facility] ([id number]) [address] [place] [address], [address] [place] [address] #### 57736-0 #### [facility] ([id number]) [address] [place] [address]56 Cholesterol in LDL [Mass/Vol] 44 mg/dL Normal <130 [facility] Comment on above: Result Comment: LDL <100 mg/dL - Desirable LDL >160 mg/dL - High Risk Performed By: #### A HP #### [facility] ([id number]) [address], [address] [place] [address] #### 70829-8 #### [facility] ([id number]) [address] [place] [address]2296 Cholesterol in VLDL [Mass/Vol] 26 mg/dL Normal 0-30 [facility] Comment on above: Performed By: #### A HP #### [facility] ([id number]) [address] [facility] [facility] [address] [place] [address] #### 89541-1 #### [facility] ([id number]) [address] [place] [address] CHOLESTEROL:HDL 3.4 Normal 1.0-5.0 [facility] Comment on above: Performed By: #### A HP #### [facility] ([id number]) [address] [facility], [address] [place] [address] #### 91865-1 #### [facility] ([id number]) [address] [place] [address] 98622 Triglyceride [Mass/Vol] 131 mg/dL Normal 27-150 [facility] Comment on above: Performed By: #### A HP #### [facility] ([id number]) [address] [facility], [address] [place] [address] #### 59491-3 #### [facility] ([id number]) [address] [place] [address] Reference Lab Test IDon 05-0 VIT D 1 25 DIHYDROXY See Below Normal [facility] Comment on above: Result Comment: NOTE TEST RESULT FLAG UNIT REF.RANGE ------- Vit D,1,25 Dihydroxy 59.9 pg/mL 19.9-79.3 Test Performed By: [place] [address] National Sales Associate: Krishna Mehta IIIIA #[id number] Performed By: #### A HP #### [facility] ([id number]) [address] [place] [address], [address] [place] [address] #### 56551-6 #### [facility] ([id number]) [address] [place] [address] 20469 TSH WITH REFLEXon 09-08-2023 TSH 1.36 uIU/mL Normal 0.49-4.67 [facility] Comment on above: Performed By: #### A HP #### [facility] ([id number]) [address] [place] [address], [address] [place] [address] #### 24052-0 #### [facility] ([id number]) [address] [place] [address] 68269 CBC AND AUTO DIFFon 08-19-19 24 Anisocytosis Ql (Bld) 2+ Abnormal NONE [facility] Comment on above: Performed By: #### C BRUCE, 3040-3, CBCA, #### [facility] ([id number]) [address] [place] [address] 80600 Erythrocyte distribution width (RBC) [Ratio] 23.1 % High 11.5-15.0 [facility] Comment on above: Performed By: #### C BRUCE, 3040-3, CBCA, #### [facility] ([id number]) [address] [place] [address] 44135 Hematocrit (Bld) [Volume fraction] 26.3 % Low 35-47 [facility] Comment on above: Performed By: #### C BRUCE, 3039-07, CBCA, 1987-08, #### [facility] ([id number]) [address] [place] [address] 54895 Hemoglobin (Bld) [Mass/Vol] 9.3 g/dL Low 11.7-15.5 [facility] Comment on above: Performed By: #### C BRUCE, 3039-07, CBCA, 1987-08, #### [facility] ([id number]) [address] [place] [address] 52710 Lymphocytes (Bld) [#/Vol] 1.0 10*3/uL Normal 1.0-3.5 [facility] Comment on above: Performed By: #### Ethan BARRERA, 3039-07, CBCA, 1987-08, #### [facility] ([id number]) [address] [place] [address]90 Lymphocytes/100 WBC (Bld) 48.0 % Normal [facility] Comment on above: Performed By: #### Ethan BARRERA, 3039-07, CBCA, 1987-08, #### [facility] ([id number]) [address] [place] [address] 81342 MCH (RBC) [Entitic mass] 42.6 pg High 27-34 [facility] Comment on above: Performed By: #### C BRUCE, 3039-07, CBCA, #### [facility] ([id number]) [address] [place] [address] 91055 MCHC (RBC) [Mass/Vol] 35.5 g/dL Normal 32-36 [facility] Comment on above: Performed By: #### C BRUCE, 3040-3, CBCA, 1987-08, #### [facility] ([id number]) [address] [place] [address] 24067 MCV (RBC) [Entitic vol] 120 fL High 80-100 [facility] Comment on above: Performed By: #### C BRUCE, 3039-3, CBCA, 1987-08, #### [facility] ([id number]) [address] [place] [address] 81408 Monocytes (Bld) [#/Vol] 0.2 10*3/uL Normal 0-0.9 [facility] Comment on above: Performed By: #### C BRUCE, 3039-07, CBCA, 1987-08, #### [facility] ([id number]) [address] [place] [address] 56617 Monocytes/100 WBC (Bld) 7.0 % Normal [facility] Comment on above: Performed By: #### C BRUCE, 3039-07, CBCA, 1987-08, #### [facility] ([id number]) [address] [place] [address] 84687 Neutrophils (Bld) [#/Vol] 1.0 10*3/uL Low 1.5-6.6 [facility] Comment on above: Performed By: #### Ethan BARRERA, 3039-07, CBCA, 1987-08, #### [facility] ([id number]) [address] [place] [address] 89614 Platelet mean volume (Bld) [Entitic vol] 8.3 fL Normal 7-12 [facility] Comment on above: Performed By: #### C BRUCE, 3039-3, CBCA, 1987-08, #### [facility] ([id number]) [address] [place] [address] 92140 Platelets (Bld) [#/Vol] 122 10*3/uL Low 150-450 [facility] Comment on above: Performed By: #### C BRUCE, 0-3, CBCA, 1987-08, #### [facility] ([id number]) [address] [place] [address] 71571 RBC COUNT 2.19 X10E12/L Low 3.80-5.20 [facility] Comment on above: Performed By: #### Ethan BARRERA, 0-3, CBCA, 1987-08, #### [facility] ([id number]) [address] [place] [address] 09394 SEG NEUTROPHIL 45.0 % Normal [facility] Comment on above: Performed By: #### Ethan BARRERA, 3039-3, CBCA, 1987-08, #### [facility] ([id number]) [address] [place] [address] 27622 TEARDROP 1+ Abnormal NONE [facility] Comment on above: Performed By: #### Ethan BARRERA, 3039-07, CBCA, 1987-08, #### [facility] ([id number]) [address] [place] [address] 71487 WBC (Bld) [#/Vol] 2.2 10*3/uL Low 4.0-11.0 [facility] Comment on above: Performed By: #### Ethan BARRERA, 0-3, CBCA, 1987-08, #### [facility] ([id number]) [address] [place] [address] 00701 COMPREHENSIVE METABOLIC PANE Elvin 08-19-2023 Albumin [Mass/Vol] 3.3 g/dL Normal 3.2-5.3 [facility] Comment on above: Performed By: #### Ethan BARRERA, 3040-3, CBCA, 1987-08, #### [facility] ([id number]) [address] [place] [address] 77572 ALP [Catalytic activity/Vol] 50 U/L Normal 39-130 [facility] Comment on above: Performed By: #### C BRUCE, 0-3, CBCA, 1987-08, #### [facility] ([id number]) [address] [place] [address] 08533 ALT [Catalytic activity/Vol] 26 U/L Normal 0-31 [facility] Comment on above: Performed By: #### C BRUCE, 3039-3, CBCA, 1987-08, #### [facility] ([id number]) [address] [place] [address] 69730 Anion gap [Moles/Vol] 5 mmol/L Normal 5-15 [facility] Comment on above: Performed By: #### Ethan BARRERA, 3039-, CBCA, 1987-08, #### [facility] ([id number]) [address] [place] [address] 19436 AST [Catalytic activity/Vol] 29 U/L Normal 0-41 [facility] Comment on above: Performed By: #### C BRUCE, 0-3, CBCA, 1987-08, #### [facility] ([id number]) [address] [place] [address] 22768 Bilirubin [Mass/Vol] 1.2 mg/dL Normal 0.3-1.2 [facility] Comment on above: Performed By: #### C BRUCE, 0-3, CBCA, #### [facility] ([id number]) [address] [place] [address] 66463 Calcium [Mass/Vol] 9.0 mg/dL Normal 8.5-10.5 [facility] Comment on above: Performed By: #### C BRUCE, 0-3, CBCA, -9 #### [facility] ([id number]) [address] [place] [address] 35725 Chloride [Moles/Vol] 107 mmol/L Normal 98-109 [facility] Comment on above: Performed By: #### C BRUCE, 3040-3, CBCA, 1987-08, #### [facility] ([id number]) [address] [place] [address] 77434 CO2 [Moles/Vol] 27 mmol/L Normal 22-32 [facility] Comment on above: Performed By: #### C BRUCE, 3039-3, CBCA, 1987-08, #### [facility] ([id number]) [address] [place] [address] 18228 Creatinine [Mass/Vol] 0.53 mg/dL Normal 0.40-1.00 [facility] Comment on above: Result Comment: METH OD TRACEABLE TO IDMS STANDARD Performed By: #### C BRUCE, 0-3, CBCA, 1987-08, #### [facility] ([id number]) [address] [place] [address] 97083 eGFR (CKD-EPI) NON-RACE DEPENDENT >90 Normal >59 [facility] Comment on above: Result Comment: Reported eGFR is based on the CKD-EPI 2020 equation that does not use a race coefficient. Performed By: #### C BRUCE, 3040-3, CBCA, 1987-08, #### [facility] ([id number]) [address] [place] [address] 88354 Glucose [Mass/Vol] 94 mg/dL Normal 65-99 [facility] Comment on above: Performed By: #### C BRUCE, 3040-3, CBCA, 1987-08, #### [facility] ([id number]) [address] [place] [address] 69934 Potassium [Moles/Vol] 3.2 mmol/L Low 3.5-5.0 [facility] Comment on above: Performed By: #### C BRUCE, 3039-07, CBCA, 1987-08, #### [facility] ([id number]) [address] [place] [address] 32660 Protein [Mass/Vol] 5.5 g/dL Low 6.0-8.0 [facility] Comment on above: Performed By: #### Ethan BARRERA, 3039-07, CBCA, 1987-08, #### [facility] ([id number]) [address] [place] [address] 54763 Sodium [Moles/Vol] 139 mmol/L Normal 134-146 [facility] Comment on above: Performed By: #### Ethan BARRERA, 3039-07, CBCMay, 1987-08, #### [facility] ([id number]) [address] [place] [address] 12499 Urea nitrogen [Mass/Vol] 11 mg/dL Normal 5-23 [facility] Comment on above: Performed By: #### Ethan BARRERA, 3039-07, CBCA, 1987-08, #### [facility] ([id number]) [address] [place] [address] 40730 CRP [Mass/Vol]on 08-19-2023 C REACTIVE PROTEIN 0.9 mg/dL High 0.000-0.744 [facility] Comment on above: Performed By: #### Ethan BARRERA, 3039-07, CBCA, 1987-08, #### [facility] ([id number]) [address] [place] [address] 72374 DRUG SCREEN, URINEon 024 AMPHETAMINE/METHAMP Negative Normal NEG [facility] Comment on above: Result Comment: AMPH /METH screening cut off = 1000 ng/mL Performed By: #### A HP #### [facility] ([id number]) [address] [facility], [address] [place] [address] #### 88779-1 #### [facility] ([id number]) [address] [place] [address] 27494 BARBITURATES Negative Normal NEG [facility] Comment on above: Result Comment: Ana iturates screening cut off value = 200 ng/mL Performed By: #### A HP #### [facility] ([id number]) [address] [facility], [address] [place] [address] #### 96854-4 #### [facility] ([id number]) [address] [place] [address] 18527 BENZODIAZEPINES Negative Normal NEG [facility] Comment on above: Result Comment: Jeramie odiazepines screening cut off value = 200 ng/mL Performed By: #### A #### [facility] ([id number]) [address] [facility], [address] [place] [address] #### 64989-7 #### [facility] ([id number]) [address] [place] [address] 35332 CANNABINOIDS Positive Abnormal NEG [facility] Comment on above: Result Comment: Conf irmation available upon request. Cannabinoids/THC screening cut off value = 50 ng/mL Performed By: #### A HP #### [facility] ([id number]) [address] [facility], [address] [place] [address] #### 26922-2 #### [facility] ([id number]) [address] [place] [address] 77397 COCAINE METABOLITE Negative Normal NEG [facility] Comment on above: Result Comment: Coca ine screening cut off value = 300 ng/mL Performed By: #### A HP #### [facility] ([id number]) [address] [place] [address], [address] [place] [address] #### 13318-1 #### [facility] ([id number]) [address] [place] [address] 03628 ECSTASY Negative Normal NEG [facility] Comment on above: Result Comment: Ecst asy screening cut off value = 500 ng/mL This report is intended for use in clinical monitoring or management of patients. Performed By: #### A #### [facility] ([id number]) [address] [place] [address], [address] [place] [address] #### 14651-9 #### [facility] ([id number]) [address] [place] [address] [facility] Comment on above: Result Comment: Meth adone screening cut off value = 300 ng/mL. Performed By: #### A #### [facility] ([id number]) [address] [place] [address], [address] [place] [address] #### 43036-0 #### [facility] ([id number]) [address] [place] [address] [address] [facility] Comment on above: Result Comment: Opia chalo screening cut off value = 300 ng/mL NOTE: This test is used for the detection of codeine, hydrocodone (>1000 ng/mL), morphine and hydromorphone (>900 ng/mL) in urine. Performed By: #### A #### [facility] ([id number]) [address] [place] [address], [address] [place] [address] #### 19437-1 #### [facility] ([id number]) [address] [place] [address] [place] [address] OXYCODONE Negative Normal NEG [facility] Comment on above: Result Comment: Oxyc odone screening cut off value = 300 ng/mL NOTE: This test is used for the detection of oxycodone and oxymorphone in urine. Performed By: #### A HP #### [facility] ([id number]) [address] [place] [address], [address] [place] [address] #### 61790-8 #### [facility] ([id number]) [address] [place] [address] 86309 PHENCYCLIDINE Negative Normal NEG [facility] Comment on above: Result Comment: Phen cyclidine screening cut off value = 25 ng/mL Performed By: #### A HP #### [facility] ([id number]) [address] [place] [address], [address] [place] [address] #### 05483-5 #### [facility] ([id number]) [address] [place] [address] 49964 HCG ( test) Ql (U)o n 08-19-2023 Beta HCG ( test) Ql (U) Negative Normal NEG [facility] Comment on above: Performed By: #### 2 106-3 #### [facility] ([id number]) [address] [place] [address] 75865 LIPASEon 08-19-2023 Lipase [Catalytic activity/Vol] 25 U/L Normal 17-40 [facility] Comment on above: Performed By: #### C BRUCE, 3040-3, CBCA, #### [facility] ([id number]) [address] [place] [address] 62366 MAGNESIUMon 08-19-2023 Magnesium [Mass/Vol] 1.9 mg/dL Normal 1.8-2.6 [facility] Comment on above: Performed By: #### C BRUCE, 3040-3, CBCA, #### [facility] ([id number]) [address] [place] [address] 99035 SARS/FLU A+B/RSV by NAAT/Mol ecularon 08-19-2023 SARS/FLU [...] operators who are performing tests using either xTV or [employer] systems and is limited to laboratories that [...] repeat. Fact Sheet for Healthcare Providers: https://www.fda.gov/ media/395881/downloa d Fact Sheet for Patients: https://www.fda.gov/ media/049775/downloa d [facility] Comment on above: Performed By: #### C OVFL #### [facility] ([id number]) [address] [place] [address] [place] [address] URN MACROSCOPIC NURon 2023 BILIRUBIN ERA Small Abnormal NEG [facility] Comment on above: Performed By: #### N UM #### [facility] ([id number]) [address] [place] [address] [place] [address] BLOOD/HGB ERA Trace Abnormal NEG [facility] Comment on above: Performed By: #### N UM #### [facility] ([id number]) [address] [place] [address] [place] [address] GLUCOSE ERA Negative Normal NEG [facility] Comment on above: Performed By: #### N UM #### [facility] ([id number]) [address] [place] [address] [place] [address] KETONES ERA Negative Normal NEG [facility] Comment on above: Performed By: #### N UM #### [facility] ([id number]) [address] [place] [address] [place] [address] LEUKOCYTE ESTERASE ERA Small Abnormal NEG [facility] Comment on above: Performed By: #### N UM #### [facility] ([id number]) [address] [place] [address] [place] [address] NITRITE ERA Positive Abnormal NEG [facility] Comment on above: Performed By: #### N UM #### [facility] ([id number]) [address] [place] [address] [place] [address] PH ERA 6.0 Normal 5.0-8.5 [facility] Comment on above: Performed By: #### N UM #### [facility] ([id number]) [address] [place] [address] [place] [address] PROTEIN ERA Negative Normal NEG [facility] Comment on above: Performed By: #### N UM #### [facility] ([id number]) [address] [facility], [place] [address] SPECIFIC GRAVITY ERA 1.025 Normal 1.003-1.035 [facility] Comment on above: Performed By: #### N UM #### [facility] ([id number]) [address] [facility], [place] [address] UROBILINOGEN ERA >=8.0 Normal <1.1 [facility] Comment on above: Performed By: #### N UM #### [facility] ([id number]) [address] [facility], [place] [address] ED Note-Physicianon 07-23-19 ED Note-Physician Basic Information Time Seen: Bernadette Gil PA-C 07/06/2023 15:16 Chief Complaint Pt reports vaginal itching and burning with urination for 1.5 months. Brown vaginal discharge. Pt also reports sinus congestion for 3-4 days. History of Present Illness 33-year-old female presents with brown vaginal discharge for the past 2 months. She states that she has followed up in [place] [facility] for this, but they did not [...] to follow-up with the health department or BLENDING COORDINATOR. Nasal congestion sounds viral and can use gnnz-bkh-vfdmyov medications and follow-up family doctor. Afebrile, not [...] prescription medications Follow-up With When Contact Information [facility] [phone] In 3 days 07/09/2023 EST Additional Instructions: Boubacar MULLINS, Zev Webber, ORS Within 2 to 4 days [address] [facility] [place] [address]- Additional Instructions: Patient Education Viral Respiratory Infection, Ruyf-Um-Fgty Attestation I performed a substantive part of [...] No. Hous (more content not included)... Normal [facility] Comment on above: Result Comment: Elec tronically Signed By: Bernadette Gil PA-C\.br\Date and Time Signed: 07/06/23 16:00 EST\.br\Electronically Co-Signed By: Adolfo Hernandez MD\.br\Date and Time Co-Signed: 07/23/23 19:29 EDT Chlam/GC/Trich,NAAon 024 C. trachomatis rRNA BETZAIDA+probe Ql (Unsp spec) Negative Invalid Interpretation Code Negative [facility] Comment on above: Performed By: #### 1 [id number] #### [facility] [address] [place] [address] N. gonorrhoeae rRNA BETZAIDA+probe Ql (Unsp spec) Negative Invalid Interpretation Code Negative [facility] Comment on above: Performed By: #### 1 [id number] #### [facility] [address] [place] [address] T. vaginalis rRNA BETZAIDA+probe Ql (Unsp spec) Negative Invalid Interpretation Code Negative [facility] Comment on above: Result Comment: Perf ormed at: =[facility] [address] [place] Jose C Lou [id number] MD Tamika Eid Performed By: #### 1 [id number] #### [facility] [address] [place] [address] C Urineon 07-08-2023 Bacteria identified Cx Nom [...] Locations R1: This test was performed at: [facility], [address] [place] [address], [address] , , [facility] Comment on above: Performed By: #### 2 [id number], [id number] #### [facility] [address] [place] [address] CHEMISTRYOrdered By: SYSTEM SYSTEM on 07-06-2023 Amphetamines [...] for Treatmenton Consent for Treatment [id number] #1.00TIFF Normal [facility] Discharge Instructionson Discharge Instructions [id number] 6#1.00TIFF Normal [facility] ED Clinical Summaryon 2023 ED Clinical Summary [address] [address] ED Clinical Summary Person Information Name: SANGEETA MYLES Sowmya/[facility] Age: 33 Years : 1990 Sex: Female Language: Spanish PCP: NONE, XXXX Marital Status: Single Visit [...] 07/06/2023 16:02:43 07/06/2023 16:02:43 07/06/2023 16:02:43 ADDRESS: [address] [facility] [id number] PHYS DOC NOTES: MEDICAL INFORMATION: Prescriptions Given: Medications to Continue with No Changes Other Medications albuterol (albuterol 0.083% Inh Valerie 3 mL) 3 Milliliter Inhalation every 6 hours as needed for wheezing. PATIENT EDUCATION INFORMATION: Instructions: Viral Respiratory Infection, Fygv-[id number]-[id number] Follow up: With: Address: When: [place] MULLINS, Zev Webber, ORS [address] [facility], [address] [place] [address] Within 2 to 4 days With: Address: When: [facility] Dept: [phone] In 3 days 07/09/2023 DIAGNOSIS: 1:Viral sinusitis; 2:Vaginal discharge; Other viral agents as the cause of diseases classified elsewhere Normal [facility] ED Patient Education Noteon 07-06-2023 ED Patient [...] home: Managing pain and congestion ? 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 ? Cover your mouth when you cough. [...] Reviewed: 07/23/2021 Elsevier Patient Education ? 2022 [employer]. Normal [facility] ED Patient Summaryon 024 ED Patient Summary [address] [address] Patient Discharge Instructions Person Information Name: SANGEETA MYLES Age: 33 Years Arrival Date: 07/06/2023 15:07:04 Discharge Diagnosis: 1:Viral sinusitis; 2:Vaginal discharge; Other viral agents as the cause of diseases classified elsewhere Primary Care Physician: NONE, XXXX Provider Information Primary Provider: Advanced Valve Repairer:None The exam and treatment you received in the Emergency Department were for an urgent problem and are not intended as complete care. It is important that you follow up with a doctor, nurse practitioner, or physician?s health education assistant for ongoing care. If your symptoms [...] When: Boubacar MULLINS, Zev Webber, ORS [address] [facility], [facility] [address] [place] [address] Within 2 to 4 days With: Address: When: [facility] Dept: [phone] In 3 days 07/09/2023 In the event that this physician does not participate in your insurance network, please consult with your insurance company to find a nearby participating provider. Patient Education Materials: Viral Respiratory Infection, Xxxw-Ck-Cvpj A MESSAGE TO ALL PATIENTS REGARDING OPIOIDS PRESCRIPTION OPIOIDS: WHAT YOU NEED TO KNOW Prescription opioids can be used to help relieve kxpbvvin-oj-qoiynk pain and are often prescribed following a [...] be strugglin (more content not included)... Normal [facility] No Panel InformationOrdered By: Bella Flower on 07-06-2023 WP No clue cells present No Trichomonas vaginalis present No yeast seen [facility] SEROLOGYOrdered By: Jules Stovereon on 07-06-2023 HCG.beta subunit (U) [Moles/Vol] Negative Normal [facility] Sero U BetaHcg Qualon 07-06-2023 HCG.beta subunit (U) [Moles/Vol] Negative Normal [facility] Comment on above: Performed By: #### 2 [id number], [id number], [id number] #### [facility] [address] [place] [address] U Drug Screenon 07-06-2023 Amphetamines Screen method >1000 ng/mL Ql (U) Negative Normal NEGATIVE [facility] Comment on above: Performed By: #### 2 [id number] #### [facility] [address] [place] [address] Barbiturates Screen Ql (U) Negative Normal NEGATIVE [facility] Comment on above: Performed By: #### 2 [id number] #### [facility] [address] [place] [address] Benzodiazepines Ql (U) Negative Normal NEGATIVE [facility] Comment on above: Performed By: #### 2 [id number] #### [facility] [address] [place] [address] Cannabinoids Screen Ql (U) Positive Abnormal NEGATIVE [facility] Comment on above: Performed By: #### 2 [id number] #### [facility] [address] [place] [address] Cocaine Ql (U) Negative Normal NEGATIVE [facility] Comment on above: Performed By: #### 2 538316 #### [facility] [address] [place] [address] Opiates Screen Ql (U) Negative Normal NEGATIVE [facility] Comment on above: Performed By: #### 2 259736 #### [facility] [address] [place] [address] Phencyclidine Screen method >25 ng/mL Ql (U) Negative Normal NEGATIVE [facility] Comment on above: Performed By: #### 2 893538 #### [facility] [address] [place] [address] UA With Cult Reflexon 2023 Color (U) YELLOW Normal Yellow [facility] Comment on above: Performed By: #### 2 [id number], [id number], [id number] #### [facility] [address] [place] [address] Glucose (U) [Mass/Vol] Negative Normal Negative [facility] Comment on above: Performed By: #### 2 [id number], [id number], 2411031 #### [facility] [address] [place] [address] Ketones Ql (U) Negative Normal Negative [facility] Comment on above: Performed By: #### 2 7866686, [id number], [id number] #### [facility] [address] [place] [address] UA Blood Negative Normal Negative [facility] Comment on above: Performed By: #### 2 9157037, [id number], 7697140 #### [facility] [address] [place] [address] UA Amorph Nelsy Present Normal [facility] Comment on above: Performed By: #### 2 8854149, [id number], 8373661 #### [facility] [address] [place] [address] UA Bacteria TRACE Normal Trace [facility] Comment on above: Performed By: #### 2 5252589, [id number], [id number] #### [facility] [address] [place] [address] UA Clarity CLEAR Normal Clear [facility] Comment on above: Performed By: #### 2 0712374, [id number], [id number] #### [facility] [address] [place] [address] UA Leuk Est 2+ Abnormal Negative [facility] Comment on above: Performed By: #### 2 3330477, [id number], [id number] #### [facility] [address] [place] [address] UA Mucous 1+ Normal [facility] Comment on above: Performed By: #### 2 9030917, [id number], 6994456 #### [facility] [address] [place] [address] UA Nitrite Negative Normal Negative [facility] Comment on above: Performed By: #### 2 0911841, [id number], 3950906 #### [facility] [address] [place] [address] UA pH 8.5 Invalid Interpretation Code 5.0-9.0 [facility] Comment on above: Performed By: #### 2 5997199, 53354062, 1712803 #### [facility] [address] [place] [address] UA Protein 2+ Abnormal Negative [facility] Comment on above: Performed By: #### 2 2196210, [id number], 8563737 #### [facility] [address] [place] [address] UA RBC 0-3 Normal 0-3 [facility] Comment on above: Performed By: #### 2 8129042, [id number], 7466773 #### [facility] [address] [place] [address] UA Spec Desc Clean Catch Normal [facility] Comment on above: Performed By: #### 2 [id number], [id number], [id number] #### [facility] [address] [place] [address] UA Spec Grav 1.010 Invalid Interpretation Code 1.005-1.030 [facility] Comment on above: Performed By: #### 2 1367226, [id number], 9372257 #### [facility] [address] [place] [address] UA Squam Epithelial 3-4 Normal 0-2 [facility] Comment on above: Performed By: #### 2 6905762, 62196549, 2813778 #### [facility] [address] [place] [address] UA Urobilinogen 4.0 EU/dL Abnormal 0.0-1.0 [facility] Comment on above: Performed By: #### 2 5211754, [id number], 8624190 #### [facility] [address] [place] [address] UA WBC 16-25 Abnormal 0-5 [facility] Comment on above: Performed By: #### 2 4565994, 79812642, 0817740 #### [facility] [address] [place], [place] [address] Urobilinogen (U) [Mass/Vol] Negative Normal Negative [facility] Comment on above: Performed By: #### 2 [id number], [id number], 6773234 #### [facility] [address] [place], [place] [address] URINALYSISOrdered By: Jules Ny on 07-06-2023 Color (U) Yellow (07/06/23 3:19 PM) Normal Yellow [facility] UA Auto SS Ketones Ql (U) Negative [...] HCV W/PCR REFLX Reactive Abnormal NRCT [facility] Comment on above: Result Comment: Supplemental testing for HCV RNA by PCR has been ordered per CDC recommendations. Ykytpy-hk-qlwfmz ratio is >=1.00. Performed By: #### A #### [facility] ([id number]) [address], [address] [place] [address] #### 81519-9 #### [facility] ([id number]) [address] [place] [address] HEPATITIS A IGM Non-Reactive Normal NRCT [facility] Comment on above: Performed By: #### A HP #### [facility] ([id number]) [address], [address] [place] [address] #### 75465-0 #### [facility] ([id number]) [address] [place] [address] HEPATITIS B CORE IGM Negative Normal NEG [facility] Comment on above: Performed By: #### A HP #### [facility] ([id number]) [address] [place] [address] #### 41732-9 #### [facility] ([id number]) [address] [place] [address] HEPATITIS B SURF AG Negative Normal NEG [facility] Comment on above: Performed By: #### A HP #### [facility] ([id number]) [address], [address] [place] [address] #### 22728-6 #### [facility] ([id number]) [address] [place] [address] HCV RNA BETZAIDA+probe Qnon 06-17 HCV RNA QUANT PCR [id number] IU/mL Abnormal Undetected [facility] Comment on above: Result Comment: NOTE Result in log IU/mL is 6.72. ADDITIONAL INFORMATION The quantification range of this assay is 15 to 100,000,000 IU/mL (1.18 log to 8.00 log IU/mL). Testing was performed using the valentin HCV test ([employer] Test Performed by: [facility] [address] [place] [address] Foamite Mixer: Ruddy Gonzalez M.D. Ph.D.; CLIA# [id number] Performed By: #### A HP #### [facility] ([id number]) [address] [place] [address] #### 04151-7 #### [facility] ([id number]) [address] [place] [address], [place] [address] Cult,Urineon 12-11-2022 Cult,Urine Specimen Description .URINE Culture Several types of bacteria were identified in this specimen. Further ID and susceptibility testing is generally not helpful in this circumstance and has not been performed. Consider recollection if clinically indicated. Report Status FINAL 12/11/2022 Normal [facility] Comment on above: Performed By: #### P HEP, HIVCMB #### [address] [address] [employer]amite Mixer: Antonino Nova MD #### BMPCMP, BMP, CBC #### [facility] [address] [place] [address] Foamite Mixer: Merlin Charles MD UA w/Reflex Cultureon 2022 Bilirubin, SemiQt,Ur Negative Normal NEG [facility] Comment on above: Performed By: #### P HEP, HIVCMB #### [address] [address] [employer]er: Antonino Nova MD #### BMPCMP, BMP, CBC #### [facility] [address] [place] [address] [employer]amite Mixer: Merlin Charles MD Blood, Urine Negative Normal NEG [facility] Comment on above: Performed By: #### P HEP, HIVCMB #### [address] [address] [employer] Mixer: Antonino Nova MD #### BMPCMP, BMP, CBC #### [address] [place], [place] [address]83 [employer]am[employer] Mixer: Merlin Charles MD Clarity (U) Clear Normal CLEAR [facility] Comment on above: Performed By: #### P HEP, HIVCMB #### [address] [address] [employer]am[employer] Mixer: Antonino Nova MD #### BMPCMP, BMP, CBC #### [address] [place], [place] [address]1483 [employer]amite Mixer: Merlin Charles MD Color (U) Yellow Normal YEL [facility] Comment on above: Performed By: #### P HEP, HIVCMB #### [address] [address] [employer]am[employer] Mixer: Antonino Nova MD #### BMPCMP, BMP, CBC #### [address] [place], [place] 9604383 [employer]amite Mixer: Merlin Charles MD Glucose Ql (U) Negative Normal NEG [facility] Comment on above: Performed By: #### P HEP, HIVCMB #### [address] [address] [employer]amite Mixer: Antonino Nova MD #### BMPCMP, BMP, CBC #### [address] [place], [place] 3047283 [employer]amite Mixer: Merlin Charles MD Ketones Ql (U) Negative Normal NEG [facility] Comment on above: Performed By: #### P HEP, HIVCMB #### [address] [address] [employer]ite Mixer: Antonino Nova MD #### BMPCMP, BMP, CBC #### [address] [place], [place] 19[address]83 [employer]amite Mixer: Merlin Charles MD Leukocyte esterase Test strip Ql (U) LARGE Abnormal NEG [facility] Comment on above: Performed By: #### P HEP, HIVCMB #### [address] [address] [employer]amite Mixer: Antonino Nova MD #### BMPCMP, BMP, CBC #### [address] [place] [address] Foamite Mixer: Merlin Charles MD Nitrite,Ur Negative Normal NEG [facility] Comment on above: Performed By: #### P HEP, HIVCMB #### [address] [address] [employer]amite Mixer: Antonino Nova MD #### BMPCMP, BMP, CBC #### [address] [place] [address] Foamite Mixer: Merlin Charles MD PH,Ur 6.0 Normal 5.0-9.0 [facility] Comment on above: Performed By: #### P HEP, HIVCMB #### [address] [address] Foamite Mixer: Antonino Nova MD #### BMPCMP, BMP, CBC #### [address] [place] [address] Foamite Mixer: Merlin Charles MD Protein Ql (U) Negative Normal NEG [facility] Comment on above: Performed By: #### P HEP, HIVCMB #### [address] [address] Foamite Mixer: Antonino Nova MD #### BMPCMP, BMP, CBC #### [address] [place], [place] 5599283 Foamite Mixer: Merlin Charles MD Spec. [place],Ur 1.025 High 1.010-1.020 [facility] Comment on above: Performed By: #### P HEP, HIVCMB #### [address] [address] Foamite Mixer: Antonino Nova MD #### BMPCMP, BMP, CBC #### [facility] [address] [place] [address] [place] [address] Foamite Mixer: Merlin Charles MD Urobilinogen,Ur Normal Normal 0.0-1.0 [facility] Comment on above: Performed By: #### P HEP, HIVCMB #### [address] [address] Foamite Mixer: Antonino Nova MD #### BMPCMP, BMP, CBC #### [address] [place] [address] Foamite Mixer: Merlin Charles MD Urinalysis,Microon 3 Bacteria 3+ Abnormal NONE [facility] Comment on above: Performed By: #### P HEP, HIVCMB #### [address] [address] Foamite Mixer: Antonino Nova MD #### BMPCMP, BMP, CBC #### [address] [place] [address] Foamite Mixer: Merlin Charles MD Epithelial cells LM Ql (Urine sed) 0 TO 2 Normal 0-25 [facility] Comment on above: Performed By: #### P HEP, HIVCMB #### [address] [address] Foamite Mixer: Antonino Nova MD #### BMPCMP, BMP, CBC #### [address] [place] [address] Foamite Mixer: Merlin Charles MD Urine RBC's 0 TO 2 Normal 0-2 [facility] Comment on above: Performed By: #### P HEP, HIVCMB #### [place] [address] [place], [place] 4673308 Foamite Mixer: Antonino Nova MD #### BMPCMP, BMP, CBC #### [facility] [address] [place] [address] [place] [address] Foamite Mixer: Merlin Charles MD Urine WBC's 10 TO 20 Normal 0-5 [facility] Comment on above: Performed By: #### P HEP, HIVCMB #### [address] [place], [place] 6332[address] Foamite Mixer: Antonino Nova MD #### BMPCMP, BMP, CBC #### [facility] [address] [place] [address] [place] [address] Foamite Mixer: Merlin Charles MD Cult,Urineon 09-24-2022 Cult,Urine Specimen Description .VOIDED URINE Culture ESCHERICHIA COLI >910794 CFU/ML STREPTOCOCCI, BETA HEMOLYTIC GROUP B >118697 CFU/ML Report Status FINAL 09/24/2022 SUSCEPTIBILITY Organism [...] SUSCEPTIBLE Trimethoprim/Sulfa <=20 SUSCEPTIBLE Susceptible [facility] Comment on above: Performed By: #### U RC #### [address] [id number] Foamite Mixer: Antonino Nova MD [facility] [address] [place] [address] [place] [address] Foamite Mixer: Merlin Charles MD Chlamydia/GC,DNA Ampon 09-23 Chlamydia Probe Negative Normal NEG [facility] Comment on above: Result Comment: CHLA [...] Performed By: #### U ANKITA, UA #### [facility] [address] [place] [address] Foamite Mixer: Merlin Charles MD #### SWCGP #### [address] [id number] Foamite Mixer: Antonino Nova MD Gonorrhea Probe Negative [facility] Comment on above: Result Comment: NEIS [...] Performed By: #### U ANKITA UA #### [facility] [address] [place] [address] Foamite Mixer: Merlin Charles MD #### SWCGP #### [address] [address] Foamite Mixer: Antonino Nova MD Trichomonas/Wet Prepon 09-22 Trichomonas/Wet Prep Specimen Descriptio n .VAGINAL SPECIMEN Direct Exam NO YEAST OBSERVED NO TRICHOMONAS SEEN NO CLUE CELLS SEEN Report Status FINAL 09/22/2022 [facility] Comment on above: Performed By: #### P HEP, HIVCMB #### [address] [address] Foamite Mixer: Antonino Nova MD #### BMPCMP, BMP, CBC #### [facility] [address] [place], [place] [address]26[address] Foamite Mixer: Merlin Charles MD Urinalysis, Routineon 2022 Bilirubin, SemiQt,Ur Negative Normal NEG [facility] Comment on above: Performed By: #### U MICAO, UA #### [facility] [address] [place], [place] 4512083 Foamite Mixer: Merlin Charles MD #### SWCGP #### [address] [id number] Foamite Mixer: Antonino Nova MD Blood, Urine Negative Normal NEG [facility] Comment on above: Performed By: #### U MICAO, UA #### [facility] [address] [place] [address] [place], [place] 9256083 Foamite Mixer: Merlin Charles MD #### SWCGP #### [address] [address] Foamite Mixer: Antonino Nova MD Clarity (U) Cloudy Abnormal CLEAR [facility] Comment on above: Performed By: #### U MICAO, UA #### [address] [place], [place] 9[address]3983 Foamite Mixer: Merlin Charles MD #### SWCGP #### [address] [address] Foamite Mixer: Antonino Nova MD Color (U) Yellow Normal YEL [facility] Comment on above: Performed By: #### U MICAO, UA #### [facility] [address] [place], [place] 0570883 Foamite Mixer: Merlin Charles MD #### SWCGP #### [address] [address] Foamite Mixer: Antonino Nova MD Glucose Ql (U) Negative Normal NEG [facility] Comment on above: Performed By: #### U MICAO, UA #### [facility] [address] [place] [address] [place], [place] 8542183 Foamite Mixer: Merlin Charles MD #### SWCGP #### [address] 4645208 Foamite Mixer: Antonino Nova MD Ketones Ql (U) Negative Normal NEG [facility] Comment on above: Performed By: #### U MICAO, UA #### [facility] [address] [place] [address] [address]. [place], [place] 6473383 Foamite Mixer: Merlin Charles MD #### SWCGP #### [address] [address] Foamite Mixer: Antonino Nova MD Leukocyte esterase Test strip Ql (U) MODERATE Abnormal NEG [facility] Comment on above: Performed By: #### U MICAO, UA #### [facility] [address] [place] [address] Dr. [place], [place] 8296083 Foamite Mixer: Merlin Charles MD #### SWCGP #### [address] [address] Foamite Mixer: Antonino Nova MD Nitrite,Ur Positive Abnormal NEG [facility] Comment on above: Performed By: #### U MICAO, UA #### [facility] [address] [place] [address] Dr. [place], [place] 0460083 Foamite Mixer: Merlin Charles MD #### SWCGP #### [address] [address] Foamite Mixer: Antonino Nova MD PH,Ur 6.0 Normal 5.0-9.0 [facility] Comment on above: Performed By: #### U MICAO, UA #### [address] [place] [address] Foamite Mixer: Merlin Charles MD #### SWCGP #### [address] [address] Foamite Mixer: Antonino Nova MD Protein Ql (U) Negative Normal NEG [facility] Comment on above: Performed By: #### U MICAO, UA #### [address] [place] [address] Foamite Mixer: Merlin Charles MD #### SWCGP #### [address] [address] Foamite Mixer: Antonino Nova MD Spec. [place],Ur 1.025 High 1.010-1.020 [facility] Comment on above: Performed By: #### U MICAO, UA #### [address] [place] [address]383 Foamite Mixer: Merlin Charles MD #### SWCGP #### [address] [address] Foamite Mixer: Antonino Nova MD Urobilinogen,Ur Normal Normal NORM [facility] Comment on above: Performed By: #### U MICAO, UA #### [address] [place] [address] Foamite Mixer: Merlin Charles MD #### SWCGP #### [address] [address] Foamite Mixer: Antonino Nova MD Urinalysis,Microon 3 Bacteria 3+ Abnormal NONE [facility] Comment on above: Performed By: #### U MICAO, UA #### [address] [place], [place] 0484083 Foamite Mixer: Merlin Charles MD #### SWCGP #### [address] [place] [address] Foamite Mixer: Antonino Nova MD Epithelial cells LM Ql (Urine sed) 0 TO 2 Normal 0-25 [facility] Comment on above: Performed By: #### U KIMO, UA #### [facility] [address] [place], [place] 7538683 Foamite Mixer: Merlin Charles MD #### SWCGP #### [address] [address] Foamite Mixer: Antonino Nova MD Mucus Strands 1+ Abnormal NONE [facility] Comment on above: Performed By: #### U KIMO, UA #### [facility] [address] [place] [address] Dr. [place], [place] 5612783 Foamite Mixer: Merlin Charles MD #### SWCGP #### [address] [address] Foamite Mixer: Antonino Nova MD Urine RBC's 0 TO 2 Normal 0-2 [facility] Comment on above: Performed By: #### U KIMO, UA #### [facility] [address] [place] [address] [address], [place] 1079483 Foamite Mixer: Merlin Charles MD #### SWCGP #### [address] [address] Foamite Mixer: Antonino Nova MD Urine WBC's 10 TO 20 Normal 0-5 [facility] Comment on above: Performed By: #### U KIMO, UA #### [facility] [address] [place] [address] [address]. [place], [place] 4053683 Foamite Mixer: Merlin Charles MD #### SWCGP #### [address] [address] Foamite Mixer: Antonino Nova MD HCV RNA,Quant,PCRon 05-16-20 23 HCV Quant [id number] IU/mL Normal [facility] Comment on above: Performed By: #### H CVQN #### [facility] [address] [place] [address] Foamite Mixer: Antonino Nova MD [facility] [address] [place] [address] [place] [address] Foamite Mixer: Merlin Charles MD HCV RNA,Quant Detected Abnormal NOTDET [facility] Comment on above: Result Comment: INTERPRETIVE [...] (HCT/P). Performed By: #### H CVQN #### [facility] [address] [place] [address] Foamite Mixer: Antonino Nova MD [facility] [address] [place] [address] [place] [address] Foamite Mixer: Merlin Charles MD HCV,RNA Log 6.95 Log IU/mL [facility] Comment on above: Performed By: #### H CVQN #### [facility] [address] [place] [address] Foamite Mixer: Antonino Nova MD [facility] [address] [place] [address] [place] [address] Foamite Mixer: Merlin Charles MD [facility] 09-13-2022 Erythrocyte distribution width (RBC) [Ratio] 17.7 % High 11.8-14.4 [facility] Comment on above: Performed By: #### P HEP, HIVCMB #### [address] [address] Foamite Mixer: Antonino Nova MD #### BMPCMP, BMP, CBC #### [address] [place] [address]383 Foamite Mixer: Merlin Charles MD Hematocrit (Bld) [Volume fraction] 39.8 % Normal 36.3-47.1 [facility] Comment on above: Performed By: #### P HEP, HIVCMB #### [address] [address] Foamite Mixer: Antonino Nova MD #### BMPCMP, BMP, CBC #### [address] [place] [address]40383 Foamite Mixer: Merlin Charles MD Hemoglobin (Bld) [Mass/Vol] 13.5 g/dL Normal 11.9-15.1 [facility] Comment on above: Performed By: #### P HEP, HIVCMB #### [place] [address] Foamite Mixer: Antonino Nova MD #### BMPCMP, BMP, CBC #### [address] [place] [address]40383 Foamite Mixer: Merlin Charles MD [facility] (RBC) [Entitic mass] 35.6 pg High 25.2-33.5 [facility] Comment on above: Performed By: #### P HEP, HIVCMB #### [address] [id number] [employer]: Antonino Nova MD #### BMPCMP, BMP, CBC #### [address] [place] [id number] [employer]: Merlin Charles MD MCHC (RBC) [Mass/Vol] 33.9 g/dL Normal 28.4-34.8 [facility] Comment on above: Performed By: #### P HEP, HIVCMB #### [address] [id number] [employer]: Antonino Nova MD #### BMPCMP, BMP, CBC #### [address] [place] [phone] [employer]: Merlin Charles MD MCV (RBC) [Entitic vol] 105.0 fL High 82.6-102.9 [facility] Comment on above: Performed By: #### P HEP, HIVCMB #### [address] [id number] [employer]: Antonino Nova MD #### BMPCMP, BMP, CBC #### [address] [place] [address] [employer]: Merlin Charles MD NRBC Automated 0.0 per 100 WBC Normal 0.0 [facility] Comment on above: Performed By: #### P HEP, HIVCMB #### [address] [phone] [employer]: Antonino Nova MD #### BMPCMP, BMP, CBC #### [address] [place] [phone] [employer]: Merlin Charles MD Platelet mean volume (Bld) [Entitic vol] 10.2 fL Normal 8.1-13.5 [facility] Comment on above: Performed By: #### P HEP, HIVCMB #### [address] [phone] [employer]: Antonino Nova MD #### BMPCMP, BMP, CBC #### [address] [place] [phone] [employer]: Merlin Charles MD Platelets (Bld) [#/Vol] 128 10*3/uL Low 138-453 [facility] Comment on above: Performed By: #### P HEP, HIVCMB #### [address] [address] [employer]: Antonino Nova MD #### BMPCMP, BMP, CBC #### [address] [place] [phone] [employer]: Merlin Charles MD RBC (Bld) [#/Vol] 3.79 10*6/uL Low 3.95-5.11 [facility] Comment on above: Performed By: #### P HEP, HIVCMB #### [address] [phone] [employer]: Antonino Nova MD #### BMPCMP, BMP, CBC #### [address] [place] [phone] [employer]: Merlin Charles MD WBC (Bld) [#/Vol] 3.7 10*3/uL Normal 3.5-11.3 [facility] Comment on above: Performed By: #### P HEP, HIVCMB #### [address] [address] [employer]: Antonino Nova MD #### BMPCMP, BMP, CBC #### [address] [place] [address] [employer]: Merlin Charles MD Hematocrit (Bld) [Volume fraction] 39.8 % 36.3 - 47.1 % [facility] Hemoglobin (Bld) [Mass/Vol] 13.5 g/dL 11.9 - 15.1 g/dL [facility] Interpretation and review of laboratory results Abnormal [facility] MCH (RBC) [Entitic mass] 35.6 pg High 25.2 - 33.5 pg [facility] MCHC (RBC) [Mass/Vol] 33.9 g/dL 28.4 - 34.8 g/dL [facility] MCV (RBC) [Entitic vol] 105.0 fL High 82.6 - 102.9 fL [facility] NRBC Automated 0.0 0.0 per 100 WBC [facility] Platelet distribution width (Bld) [Ratio] 17.7 % High 11.8 - 14.4 % [facility] Platelet mean volume (Bld) [Entitic vol] 10.2 fL 8.1 - 13.5 fL [facility] Platelets (Bld) [#/Vol] 128 10*3/uL Low [facility] RBC (Bld) [#/Vol] 3.79 10*6/uL Low 3.95 - 5.1 1 m/uL [facility] WBC (Bld) [#/Vol] 3.7 10*3/uL [facility] Comp Metabolic Profon 2022 Albumin [Mass/Vol] 4.1 g/dL Normal 3.5-5.2 [facility] Comment on above: Performed By: #### P HEP, HIVCMB #### [address] [phone] [employer]: Antonino Nova MD #### BMPCMP, BMP, CBC #### [address] [place] [phone] [employer]: Merlin Charles MD Albumin/Glob Ratio 2.1 Normal 1.0-2.5 [facility] Comment on above: Performed By: #### P HEP, HIVCMB #### [address] [phone] [employer]: Antonino Nova MD #### BMPCMP, BMP, CBC #### [address] [place] [address] [employer]: Merlin Charles MD Alkaline Phos 67 U/L Normal 35-104 [facility] Comment on above: Performed By: #### P HEP, HIVCMB #### [address] [address] [employer]: Antonino Nova MD #### BMPCMP, BMP, CBC #### [address] [place] [phone] [employer]: Merlin Charles MD ALT [Catalytic activity/Vol] 41 U/L High 5-33 [facility] Comment on above: Performed By: #### P HEP, HIVCMB #### [address] [address] [employer]: Antonino Nova MD #### BMPCMP, BMP, CBC #### [address] [place] [phone] ( [employer]: Merlin Charles MD Anion gap [Moles/Vol] 6 mmol/L Low 9-17 [facility] Comment on above: Performed By: #### P HEP, HIVCMB #### [address] [address] [employer]: Antonino Nova MD #### BMPCMP, BMP, CBC #### [address] [place] [phone] [employer]: Merlin Charles MD AST [Catalytic activity/Vol] 52 U/L High <32 [facility] Comment on above: Performed By: #### P HEP, HIVCMB #### [address] [address] [employer]: Antonino Nova MD #### BMPCMP, BMP, CBC #### [address] [place] [phone] [employer]: Merlin Charles MD Bilirubin [Mass/Vol] 0.6 mg/dL Normal 0.3-1.2 [facility] Comment on above: Performed By: #### P HEP, HIVCMB #### [address] [address] [employer]: Antonino Nova MD #### BMPCMP, BMP, CBC #### [facility] [address] [place] [address] Dr. [place] [phone] [employer]er: Merlin Charles MD BUN/CRE Ratio 16 Normal 9-20 [facility] Comment on above: Performed By: #### P HEP, HIVCMB #### [address] [address] [employer]: Antonino Nova MD #### BMPCMP, BMP, CBC #### [address] [place] [phone] [employer]: Merlin Charles MD Calcium [Mass/Vol] 10.0 mg/dL Normal 8.6-10.4 [facility] Comment on above: Performed By: #### P HEP, HIVCMB #### [address] [address] [employer]: Antonino Nova MD #### BMPCMP, BMP, CBC #### [address] [place] [phone] [employer]: Merlin Charles MD Chloride [Moles/Vol] 108 mmol/L High 98-107 [facility] Comment on above: Performed By: #### P HEP, HIVCMB #### [address] [address] [employer]: Antonino Nova MD #### BMPCMP, BMP, CBC #### [address] [place] [address] [employer]: Merlin Charles MD CO2 [Moles/Vol] 28 mmol/L Normal 20-31 [facility] Comment on above: Performed By: #### P HEP, HIVCMB #### [facility] [address] [place] [address] [employer]: Antonino Nova MD #### BMPCMP, BMP, CBC #### [facility] [address] [place] [address] [employer]: Merlin Charles MD Creatinine [Mass/Vol] 0.61 mg/dL Normal 0.50-0.90 [facility] Comment on above: Performed By: #### P HEP, HIVCMB #### [address] [phone] [employer]: Antonino Nova MD #### BMPCMP, BMP, CBC #### [address] [place] [address] [employer]: Merlin Charles MD GFR/1.73 sq M.predicted among non-blacks MDRD (S/P/Bld) [Vol rate/Area] mL/min/{1.73_m2} Normal >60 [facility] Comment on above: Result Comment: These [...] Performed By: #### P HEP, HIVCMB #### [address] [phone] [employer]: Antonino Nova MD #### BMPCMP, BMP, CBC #### [facility] [address] [place] [address] [employer]: Merlin Charles MD Glucose [Mass/Vol] 87 mg/dL Normal 70-99 [facility] Comment on above: Performed By: #### P HEP, HIVCMB #### [place] 932392 [place] [address] [employer]: Antonino Nova MD #### BMPCMP, BMP, CBC #### [facility] [address] [place] [address] Dr. [place], [place] [phone] [employer]: Merlin Charles MD Potassium [Moles/Vol] 5.0 mmol/L Normal 3.7-5.3 [facility] Comment on above: Performed By: #### P HEP, HIVCMB #### [address] [address] [employer]: Antonino Nova MD #### BMPCMP, BMP, CBC #### [address] [place] [phone] [employer]er: Merlin Charles MD Protein [Mass/Vol] 6.1 g/dL Low 6.4-8.3 [facility] Comment on above: Performed By: #### P HEP, HIVCMB #### [address] [address] [employer]: Antonino Nova MD #### BMPCMP, BMP, CBC #### [address] [place] [phone] [employer]: Merlin Charles MD Sodium [Moles/Vol] 142 mmol/L Normal 135-144 [facility] Comment on above: Performed By: #### P HEP, HIVCMB #### [address] [address] [employer]: Antonino Nvoa MD #### BMPCMP, BMP, CBC #### [facility] [address] [place] [address] Dr. [place], [place] [phone] [employer]: Merlin Charles MD Urea nitrogen [Mass/Vol] 10 mg/dL Normal 6-20 [facility] Comment on above: Performed By: #### P HEP, HIVCMB #### [facility] [address] [place] [address] [employer]: Antonino Nova MD #### BMPCMP, BMP, CBC #### [facility] [address] [place] [address] [employer]: Merlin Charles MD Comprehensive Metabolic Pane [facility] 09-13-2022 Albumin [Mass/Vol] 4.1 g/dL 3.5 - 5.2 g/dL [facility] Albumin/Globulin [Mass ratio] 2.1 {ratio} 1.0 - 2.5 [facility] ALP [Catalytic activity/Vol] 67 U/L 35 - 104 U/L [facility] ALT [Catalytic activity/Vol] 41 U/L High 5 - 33 U/L [facility] Anion gap [Moles/Vol] 6 mmol/L Low 9 - 17 mmol/L [facility] AST [Catalytic activity/Vol] 52 U/L High NINF - 32 U/L [facility] Bilirubin [Mass/Vol] 0.6 mg/dL 0.3 - 1 .2 mg/dL [facility] Calcium [Mass/Vol] 10.0 mg/dL 8.6 - 10. 4 mg/dL [facility] Chloride [Moles/Vol] 108 mmol/L High 98 - 10 7 mmol/L [facility] CO2 [Moles/Vol] 28 mmol/L 20 - 31 mmol/L [facility] Creatinine [Mass/Vol] 0.61 mg/dL 0.50 - 0.90 mg/dL [facility] GFR/1.73 sq M.predicted MDRD (S/P/Bld) [Vol rate/Area] - PINF [facility] Comment on above: These results are [...] [Mass/Vol] 87 mg/dL 70 - 99 mg/dL [facility] Interpretation and review of laboratory results Abnormal [facility] Potassium [Moles/Vol] 5.0 mmol/L 3.7 - 5.3 mmol/L [facility] Protein [Mass/Vol] 6.1 g/dL Low 6.4 - 8.3 g/dL [facility] Sodium [Moles/Vol] 142 mmol/L 135 - 144 mmol/L [facility] Urea nitrogen [Mass/Vol] 10 mg/dL 6 - 20 mg/dL [facility] Urea nitrogen/Creatinine (Bld) [Mass ratio] 16 9 - 20 [facility] HCG Qualitative, Serumon hCG Qual Negative NEGATIVE [facility] Comment on above: Specimens with hCG l evels near the threshold of the test (25 mIU/mL) may give a negative or indeterminate result. In such cases, another test should be performed with a new specimen in 48-72 hours. If early is suspected clinically in this setting, correlation with quantitative serum b-hCG level is suggested. [employer] has confirmed the use of plasma for this test. This has not been cleared or approved by the U.S. Food and Drug Administration. The FDA has determined that such clearance is not necessary. [facility] HCG Screen, Bloodon 09-14-19 HCG Screen, Blood Negative Normal [facility] Comment on above: Result Comment: Spec imens with hCG levels near the threshold of the test (25 mIU/mL) may give a negative or indeterminate result. In such cases, another test should be performed with a new specimen in 48-72 hours. If early is suspected clinically in this setting, correlation with quantitative serum b-hCG level is suggested. [employer] has confirmed the use of plasma for this test. This has not been cleared or approved by the U.S. Food and Drug Administration. The FDA has determined that such clearance is not necessary. Performed By: #### P HEP, HIVCMB #### [employer] [address] [place] [address] [employer]: Antonino Nova MD #### BMPCMP, BMP, CBC #### [address] [place], [place] [id number] [employer]: Merlin Charles MD HCV RNA,Quant,PCRon 09-14-19 23 Source .PLASMA Normal [facility] Comment on above: Performed By: #### H CVQN #### [address] [address] [employer]: Antonino Nova MD [address] [place], [place] [phone] [employer]: Merlin Charles MD HIV Ag/Abon 09-13-2022 HIV Ag/Ab Non-Reactive Normal [facility] Comment on above: Result Comment: No l aboratory evidence of HIV infection. If acute HIV infection is suspected, consider testing for HIV-1 RNA. Performed By: #### P HEP, HIVCMB #### [address] [address] [employer]: Antonino Nova MD #### BMPCMP, BMP, CBC #### [address] [place] [address] [employer]: Merlin Charles MD HIV Screenon 09-13-2022 HIV 1+2 Ab+HIV1 p24 Ag IA Ql Non-Reactive NONREACTIVE [facility] Comment on above: No laboratory eviden ce of HIV infection. If acute HIV infection is suspected, consider testing for HIV-1 RNA. [facility] Hepatitis Acute Jonnie 09-13 Hep A Ab,IgM Non-Reactive Normal NR [facility] Comment on above: Performed By: #### P HEP, HIVCMB #### [place] [address] [place] [address] [employer]: Antonino Nova MD #### BMPCMP, BMP, CBC #### [facility] [address] [place] [address] [place], [place] [phone] [employer]: Merlin Charles MD Hep B Core Ab,IgM Non-Reactive Normal [facility] Comment on above: Performed By: #### P HEP, HIVCMB #### [facility] [address] [place] [address] [employer]: Antonino Nova MD #### BMPCMP, BMP, CBC #### [facility] [address] [place] [address] Dr[place], [place] [phone] [employer]: Merlin Charles MD Hep B Surf Ag Non-Reactive Normal [facility] Comment on above: Performed By: #### P HEP, HIVCMB #### [address] [address] [employer]: Antonino Nova MD #### BMPCMP, BMP, CBC #### [address] [place], [place] 1522783 [employer]: Merlin Charles MD Hep C Ab Reactive Abnormal [facility] Comment on above: Result Comment: The [...] Performed By: #### P HEP, HIVCMB #### [place] [address] [place] [address] [employer]: Antonino Nova MD #### BMPCMP, BMP, CBC #### [address] [place], [place] 0867083 [employer]: Merlin Charles MD Hepatitis Panel, Acuteon HAV IgM Ql (S) Non-Reactive NONREACTIVE [facility] HBV core IgM Ql (S) Non-Reactive NONREACTIVE [facility] HBV surface Ag IA Ql Non-Reactive NONREACTIVE B ON [facility] HCV Ab IA Ql Reactive Abnormal NONREACTIVE [facility] Comment on above: The hepatitis C [...] Interpretation and review of laboratory results Abnormal [facility] Comp Metabolic Addonon 04-20 Albumin [Mass/Vol] 4.5 g/dL Normal 3.5-5.2 [facility] Comment on above: Performed By: #### P HEP, HIVCMB #### [address] [phone] [employer]: Antonino Nova MD #### BMPCMP, BMP, CBC #### [address] [place] [address] [employer]: Merlin Charles MD Albumin/Glob Ratio 2.0 Normal 1.0-2.5 [facility] Comment on above: Performed By: #### P HEP, HIVCMB #### [address] [id number] [employer]: Antonino Nova MD #### BMPCMP, BMP, CBC #### [address] [place] [address] [employer]: Merlin Charles MD Alkaline Phos 81 U/L Normal 35-104 [facility] Comment on above: Performed By: #### P HEP, HIVCMB #### [address] [phone] [employer]: Antonino Nova MD #### BMPCMP, BMP, CBC #### [facility] [address] [place] [address] [place], [place] [phone] [employer]: Merlin Charles MD ALT [Catalytic activity/Vol] 106 U/L High 5-33 [facility] Comment on above: Performed By: #### P HEP, HIVCMB #### [place] [address] [place], [place] [id number] [employer]: Antonino Nova MD #### BMPCMP, BMP, CBC #### [address] [place], [place] [id number] [employer]: Merlin Charles MD AST [Catalytic activity/Vol] 77 U/L High <32 [facility] Comment on above: Performed By: #### P HEP, HIVCMB #### [address] [id number] [employer]: Antonino Nova MD #### BMPCMP, BMP, CBC #### [address] [place], [place] 9419183 [employer]: Merlin Charles MD Bilirubin [Mass/Vol] 0.6 mg/dL Normal 0.3-1.2 [facility] Comment on above: Performed By: #### P HEP, HIVCMB #### [address] [phone] [employer]: Antonino Nova MD #### BMPCMP, BMP, CBC #### [address] [place], [place] 7126383 [employer]: Merlin Charles MD Protein [Mass/Vol] 6.7 g/dL Normal 6.4-8.3 [facility] Comment on above: Performed By: #### P HEP, HIVCMB #### [address] [phone] [employer]: Antonino Nova MD #### BMPCMP, BMP, CBC #### [address] [place], [place] 7300983 [employer]: Merlin Charles MD HCV RNA,Quant,PCRon 04-20-20 HCV Quant 1,330,000 IU/mL Normal [facility] Comment on above: Performed By: #### P HEP, HIVCMB #### [address] [address] [employer]: Antonino Nova MD #### BMPCMP, BMP, CBC #### [address] [place], [place] 1719283 [employer]: Merlin Charles MD HCV RNA,Quant Detected Abnormal NOTDET [facility] Comment on above: Result Comment: HCV [...] Performed By: #### P HEP, HIVCMB #### [address] [address] [employer]: Antonino Nova MD #### BMPCMP, BMP, CBC #### [address] [place], [place] 1104483 [employer]: Merlin Chalres MD HCV,RNA Log 6.12 Log IU/mL [facility] Comment on above: Performed By: #### P HEP, HIVCMB #### [address] [address] [employer]: Antonino Nova MD #### BMPCMP, BMP, CBC #### [facility] [address] [place], [place] 9031183 [employer]: Merlin Charles MD Basic Metabolic Profon 04-19 Anion gap [Moles/Vol] 7 mmol/L Low 9- [facility] Comment on above: Performed By: #### P HEP, HIVCMB #### [address] [id number] [employer]: Antonino Nova MD #### BMPCMP, BMP, CBC #### [facility] [address] [place] [address] [employer]: Merlin Charles MD BUN/CRE Ratio 20 Normal - [facility] Comment on above: Performed By: #### P HEP, HIVCMB #### [address] [address] [employer]: Antonino Nova MD #### BMPCMP, BMP, CBC #### [facility] [address] [place], [place] 1631383 [employer]: Merlin Charles MD Calcium [Mass/Vol] 9.9 mg/dL Normal 8.6-10.4 [facility] Comment on above: Performed By: #### P HEP, HIVCMB #### [address] [address] [employer]: Antonino Nova MD #### BMPCMP, BMP, CBC #### [facility] [address] [place], [place] 2191983 [employer]: Merlin Charles MD Chloride [Moles/Vol] 106 mmol/L Normal 98-107 [facility] Comment on above: Performed By: #### P HEP, HIVCMB #### [address] [address] [employer]: Antonino Nova MD #### BMPCMP, BMP, CBC #### [address] [place], [place] 7060083 [employer]: Merlin Charles MD CO2 [Moles/Vol] 29 mmol/L Normal 20-31 [facility] Comment on above: Performed By: #### P HEP, HIVCMB #### [place] [address] [place], [place] 0822908 [employer]: Antonino Nova MD #### BMPCMP, BMP, CBC #### [address] [place], [place] 0314283 [employer]: Merlin Charles MD Creatinine [Mass/Vol] 0.79 mg/dL Normal 0.50-0.90 [facility] Comment on above: Performed By: #### P HEP, HIVCMB #### [address] [id number] [employer]: Antonino Nova MD #### BMPCMP, BMP, CBC #### [address] [place], [place] 4808883 [employer]: Merlin Charles MD GFR/1.73 sq M.predicted among non-blacks MDRD (S/P/Bld) [Vol rate/Area] mL/min/{1.73_m2} Normal >60 [facility] Comment on above: Result Comment: Effective [...] Performed By: #### P HEP, HIVCMB #### [address] [phone] [employer]: Antonino Nova MD #### BMPCMP, BMP, CBC #### [address] [place], [place] 3156783 [employer]: Merlin Charles MD Glucose [Mass/Vol] 98 mg/dL Normal 70-99 [facility] Comment on above: Performed By: #### P HEP, HIVCMB #### [address] [address] [employer]: Antonino Nova MD #### BMPCMP, BMP, CBC #### [address] [place], [place] 8708483 [employer]: Merlin Charles MD Potassium [Moles/Vol] 4.6 mmol/L Normal 3.7-5.3 [facility] Comment on above: Performed By: #### P HEP, HIVCMB #### [address] [phone] [employer]: Antonino Nova MD #### BMPCMP, BMP, CBC #### [address] [place], [place] 5494683 [employer]: Merlin Charles MD Sodium [Moles/Vol] 142 mmol/L Normal 135-144 [facility] Comment on above: Performed By: #### P HEP, HIVCMB #### [address] [address] [employer]: Antonino Nova MD #### BMPCMP, BMP, CBC #### [address] [place], [place] 5886783 [employer]: Merlin Charles MD Urea nitrogen [Mass/Vol] 16 mg/dL Normal 6-20 [facility] Comment on above: Performed By: #### P HEP, HIVCMB #### [address] [address] [employer]: Antonino Nova MD #### BMPCMP, BMP, CBC #### [address] [place], [place] 9591483 [employer]: Merlin Charles MD CBCon 04-19-2022 Erythrocyte distribution width (RBC) [Ratio] 15.2 % High 11.8-14.4 [facility] Comment on above: Performed By: #### P HEP, HIVCMB #### [address] [id number] [employer]: Antonino Nova MD #### BMPCMP, BMP, CBC #### [address] [place], [place] 4407383 [employer]: Merlin Charles MD Hematocrit (Bld) [Volume fraction] 41.4 % Normal 36.3-47.1 [facility] Comment on above: Performed By: #### P HEP, HIVCMB #### [address] [address] [employer]: Antonino Nova MD #### BMPCMP, BMP, CBC #### [address] [place] [address] [employer]: Merlin Charles MD Hemoglobin (Bld) [Mass/Vol] 13.3 g/dL Normal 11.9-15.1 [facility] Comment on above: Performed By: #### P HEP, HIVCMB #### [address] [address] [employer]: Antonino Nova MD #### BMPCMP, BMP, CBC #### [address] [place] [address] [employer]: Merlin Charles MD MCH (RBC) [Entitic mass] 33.8 pg High 25.2-33.5 [facility] Comment on above: Performed By: #### P HEP, HIVCMB #### [address] [id number] [employer]: Antonino Nova MD #### BMPCMP, BMP, CBC #### [address] [place] [address] [employer]: Merlin Charles MD MCHC (RBC) [Mass/Vol] 32.1 g/dL Normal 28.4-34.8 [facility] Comment on above: Performed By: #### P HEP, HIVCMB #### [address] [id number] [employer]: Antonino Nova MD #### BMPCMP, BMP, CBC #### [address] [place] [phone] [employer]: Merlin Charles MD MCV (RBC) [Entitic vol] 105.3 fL High 82.6-102.9 [facility] Comment on above: Performed By: #### P HEP, HIVCMB #### [address] [address] [employer]: Antonino Nova MD #### BMPCMP, BMP, CBC #### [address] [place] [address] [employer]: Merlin Charles MD NRBC Automated 0.0 per 100 WBC Normal 0.0 [facility] Comment on above: Performed By: #### P HEP, HIVCMB #### [address] [id number] [employer]: Antonino Nova MD #### BMPCMP, BMP, CBC #### [address] [place] [address] [employer]: Merlin Charles MD Platelet mean volume (Bld) [Entitic vol] 9.1 fL Normal 8.1-13.5 [facility] Comment on above: Performed By: #### P HEP, HIVCMB #### [address] [address] [employer]: Antonino Nova MD #### BMPCMP, BMP, CBC #### [address] [place], [place] 0716383 [employer]: Merlin Charles MD Platelets (Bld) [#/Vol] 203 10*3/uL Normal 138-453 [facility] Comment on above: Performed By: #### P HEP, HIVCMB #### [address] [address] [employer]: Antonino Nova MD #### BMPCMP, BMP, CBC #### [address] [place] [id number] [employer]: Merlin Charles MD RBC (Bld) [#/Vol] 3.93 10*6/uL Low 3.95-5.11 [facility] Comment on above: Performed By: #### P HEP, HIVCMB #### [address] [address] [employer]: Antonino Nova MD #### BMPCMP, BMP, CBC #### [address] [place], [place] 9430683 [employer]: Merlin Charles MD WBC (Bld) [#/Vol] 4.1 10*3/uL Normal 3.5-11.3 [facility] Comment on above: Performed By: #### P HEP, HIVCMB #### [address] [address] [employer]: Antonino Nova MD #### BMPCMP, BMP, CBC #### [address] [place], [place] [id number] [employer] Mixer: Merlin Charles MD HCV RNA,Quant,PCRon 04-19-20 22 Source .PLASMA Normal [facility] Comment on above: Performed By: #### P HEP, HIVCMB #### [address] [address] [employer]amite Mixer: Antonino Nova MD #### BMPCMP, BMP, CBC #### [address] [place], [place] [id number] [employer]amite Mixer: Merlin Charles MD HIV Ag/Abon 04-19-2022 HIV Ag/Ab Non-Reactive Normal [facility] Comment on above: Result Comment: No l aboratory evidence of HIV infection. If acute HIV infection is suspected, consider testing for HIV-1 RNA. Performed By: #### P HEP, HIVCMB #### [address] [address] [employer]amite Mixer: Antonino Nova MD #### BMPCMP, BMP, CBC #### [address] [place] [address] [employer]amite Mixer: Merlin Charles MD Hepatitis Acute [facility] 04-19 Hep A Ab,IgM Non-Reactive Normal [facility] Comment on above: Performed By: #### P HEP, HIVCMB #### [address] [address] [employer]amite Mixer: Antonino Nova MD #### BMPCMP, BMP, CBC #### [address] [place] [address] [employer]amite Mixer: Merlin Charles MD Hep B Core Ab,IgM Non-Reactive Normal [facility] Comment on above: Performed By: #### P HEP, HIVCMB #### [address] [address] [employer] Mixer: Antonino Nova MD #### BMPCMP, BMP, CBC #### [address] [place] [address] [employer]amite Mixer: Merlin Charles MD Hep B Surf Ag Non-Reactive Normal [facility] Comment on above: Performed By: #### P HEP, HIVCMB #### [facility] [address] [place], [place] [id number] [employer]amite Mixer: Antonino Nova MD #### BMPCMP, BMP, CBC #### [facility] [address] [place] [address] [place] [address] [employer]amite Mixer: Merlin Charles MD Hep C Ab Reactive Abnormal [facility] Comment on above: Result Comment: The [...] Performed By: #### P HEP, HIVCMB #### [address] [place], [place] [id number] [employer] Mixer: Antonino Nova MD #### BMPCMP, BMP, CBC #### [address] [place] [address] [employer]amite Mixer: Merlin Charles MD [facility] Hematocrit (Bld) [Volume fraction] 39.5 % 36.3 - 47.1 % [facility] Hemoglobin (Bld) [Mass/Vol] 12.6 g/dL 11.9 - 15.1 g/dL [facility] Interpretation and review of laboratory results Abnormal [facility] MCH (RBC) [Entitic mass] 32.6 pg 25.2 - 33.5 pg [facility] MCHC (RBC) [Mass/Vol] 31.9 g/dL 28.4 - 34.8 g/dL [facility] MCV (RBC) [Entitic vol] 102.3 fL 82.6 - 102.9 fL [facility] NRBC Automated 0.0 0.0 per 100 WBC [facility] Platelet distribution width (Bld) [Ratio] 14.9 % High 11.8 - 14.4 % [facility] Platelet mean volume (Bld) [Entitic vol] 9.7 fL 8.1 - 13.5 fL [facility] Platelets (Bld) [#/Vol] 175 10*3/uL [facility] RBC (Bld) [#/Vol] 3.86 10*6/uL Low 3.95 - 5.1 1 m/uL [facility] WBC (Bld) [#/Vol] 3.4 10*3/uL Low [facility] Comprehensive Metabolic Pane elvin 11-09-2021 Albumin [Mass/Vol] 4.7 g/dL 3.5 - 5.2 g/dL [facility] Albumin/Globulin [Mass ratio] 2.5 {ratio} [facility] ALP (Bld) [Catalytic activity/Vol] 76 U/L 35 - 104 U/L [facility] ALT [Catalytic activity/Vol] 50 U/L High 5 - 33 U/L [facility] Anion gap [Moles/Vol] 10 mmol/L 9 - 17 mmol/L [facility] AST [Catalytic activity/Vol] 40 U/L High <32 [facility] Bilirubin [Mass/Vol] 0.55 mg/dL 0.3 - 1 .2 mg/dL [facility] Calcium [Mass/Vol] 10.4 mg/dL 8.6 - 10. 4 mg/dL [facility] Chloride [Moles/Vol] 107 mmol/L 98 - 10 7 mmol/L [facility] CO2 [Moles/Vol] 25 mmol/L 20 - 31 mmol/L [facility] Creatinine [Mass/Vol] 0.72 mg/dL 0.50 - 0.90 mg/dL [facility] Free PSA/Total PSA [Mass fraction] 6.6 g/dL 6.4 - 8.3 g/dL [facility] GFR >60 >60 mL/min [facility] GFR Non- >60 >60 mL/min [facility] Glucose [Mass/Vol] 76 mg/dL 70 - 99 mg/dL [facility] Interpretation and review of laboratory results Abnormal [facility] Potassium [Moles/Vol] 3.9 mmol/L 3.7 - 5.3 mmol/L [facility] Sodium [Moles/Vol] 142 mmol/L 135 - 144 mmol/L [facility] Urea nitrogen (BldV) [Mass/Vol] 12 mg/dL 6 - 20 mg/dL [facility] Urea nitrogen/Creatinine (Bld) [Mass ratio] 17 [facility] HCG Qualitative, Serumon hCG Qual Negative NEGATIVE [facility] Comment on above: Specimens with hCG l evels near the threshold of the test (25 mIU/mL) may give a negative or indeterminate result. In such cases, another test should be performed with a new specimen in 48-72 hours. If early is suspected clinically in this setting, correlation with quantitative serum b-hCG level is suggested. [facility] has confirmed the use of plasma for this test. This has not been cleared or approved by the U.S. Food and Drug Administration. The FDA has determined that such clearance is not necessary. [facility] HIV Screenon 11-09-2021 HIV Ag/Ab Non-Reactive NONREACTIVE [facility] Comment on above: No laboratory eviden ce of HIV infection. If acute HIV infection is suspected, consider testing for HIV-1 RNA. [facility] Hepatitis Panel, Acuteon HAV IgM IA Qn (S) Non-Reactive NONREACTIVE [facility] Hep B Core Ab, IgM Non-Reactive NONREACTIVE [facility] Hepatitis B Surface Ag Non-Reactive NONREACTIVE [facility] Hepatitis C Ab Reactive Abnormal NONREACTIVE [facility] Comment on above: The hepatitis C [...] Interpretation and review of laboratory results Abnormal [facility] Laboratory - Chemistry and C hemistry - challengeon 11-09-2021 GFR/1.73 sq M.predicted MDRD (S/P/Bld) [Vol rate/Area] [facility] Comment on above: Average GFR for 20-2 9 years old: 116 mL/min/1.73sq m Chronic Kidney Disease: <60 mL/min/1.73sq m Kidney failure: <15 mL/min/1.73sq m eGFR calculated using average adult body mass. Additional eGFR calculator available at: http://[email or web address]_crcl_2012.htm Stage 1: Some kidney damage normal GFR Stage 2: Mild kidney damage GFR 60-89 Stage 3: Moderate kidney damage GFR 30-59 Stage 4: Severe kidney damage GFR 15-29 Stage 5: Severe kidney damage GFR <15 ESRD - chronic treatment by dialysis or transplant Microscopic Urinalysison - [facility] Bacteria, UA 4+ Abnormal None [facility] Epithelial Cells UA 2 TO 5 [facility] Interpretation and review of laboratory results Abnormal [facility] Mucus, UA 1+ Abnormal None [facility] RBC, UA 0 TO 2 [facility] WBC, UA 20 TO 50 [facility] Urinalysis with Reflex to Cu ltureon 10-27-2021 Bilirubin Urine SMALL Abnormal NEGATIVE [facility] Color, UA Yellow Yellow [facility] Glucose, Ur Negative NEGATIVE [facility] Interpretation and review of laboratory results Abnormal [facility] Ketones Ql (U) Negative NEGATIVE [facility] Leukocyte esterase Test strip Ql (U) MODERATE Abnormal NEGATIVE [facility] Nitrite, Urine Negative NEGATIVE [facility] pH, UA 6.5 [facility] Protein, UA TRACE Abnormal NEGATIVE [facility] Specific [place], UA 1.025 High [facility] Turbidity UA SLIGHTLY CLOUDY Abnormal Clear [facility] Urine Hgb Negative NEGATIVE [facility] Urobilinogen, Urine Normal Normal [facility] Microscopic Urinalysison - [facility] Bacteria, UA 1+ Abnormal None [facility] Epithelial Cells UA 5 TO 10 [facility] Interpretation and review of laboratory results Abnormal [facility] RBC, UA 0 TO 2 [facility] WBC, UA 5 TO 10 [facility] HEALTH [facility] Urinalysis with Reflex to Cu ltureon 10-07-2021 Bilirubin Urine Negative NEGATIVE [facility] Color, UA Yellow Yellow [facility] Glucose, Ur Negative NEGATIVE [facility] Interpretation and review of laboratory results Abnormal [facility] Ketones Ql (U) Negative NEGATIVE [facility] Leukocyte esterase Test strip Ql (U) MODERATE Abnormal NEGATIVE [facility] Nitrite, Urine Negative NEGATIVE [facility] pH, UA 5.5 [facility] Protein, UA Negative NEGATIVE [facility] Specific [place], UA 1.025 High [facility] Turbidity UA Clear Clear [facility] Urine Hgb Negative NEGATIVE [facility] Urobilinogen, Urine Normal Normal [facility] SEROLOGYOrdered By: Suly Raman on 07-24-2021 HCG.beta subunit (U) [Moles/Vol] Negative Normal [facility] Tobacco Screening.on 022 Adult depression screening assessment Yes [facility] f[place] 250 DO Work Phone: Tobacco use status CPHS a) Yes [facility] 250 DO Work Phone: Tobacco Screening. Yes [facility] 250 DO Work Phone: Tobacco Screening. 3-Nearly every day [facility] [place] 250 DO Work Phone: Tobacco Screening. 2-More than half the days [facility] 250 DO Work Phone: Tobacco Screening. 0-Not at all [facility] 250 DO Work Phone: Tobacco Screening. Very Difficult [facility] 250 DO Work Phone: XR SHOULDER LT [...] by: Janine DURON Date: 2021-07-04 02:09 Normal [facility] Vital Signs Date Time Vital Sign Value Performing Clinician Facility 07-06-2023 15:10-0500 Body temperature 98.42 [degF] Adolfo Hernandez [facility] 07-06-2023 15:10-0500 Diastolic blood pressure 69 mm[Hg] Adolfo Hernandez [facility] 07-06-2023 15:10-0500 Heart rate 102 /min Adolfo Hernandez [facility] 07-06-2023 15:10-0500 Respiratory rate 16 /min Adolfo Hernandez [facility] 07-06-2023 15:10-0500 SaO2% (BldA) [Mass fraction] 100 % Adolfo Hernandez [facility] 07-06-2023 15:10-0500 Systolic blood pressure 100 mm[Hg] Adolfo Hernandez [facility] 07-24-2021 17:25-0400 Body temperature 96.98 [degF] Zev Boubacar [facility] 07-24-2021 17:25-0400 Heart rate 66 /min Zev Hamlin [facility] 07-24-2021 17:25-0400 Respiratory rate 110 /min Zev Hamlin [facility] 07-24-2021 17:25-0400 SaO2% (BldA) [Mass fraction] 100 % Zev Hamlin [facility] 07-24-2021 17:25-0400 Systolic blood pressure 68 mm[Hg] Zev Hamlin [facility] 07-24-2021 17:20-0400 Body temperature 97.7 [degF] Zev Hamlin [facility] 07-24-2021 17:20-0400 Diastolic blood pressure 63 mm[Hg] Zev Hamlin [facility] 07-24-2021 17:20-0400 Heart rate 65 /min Zev Hamlin [facility] 07-24-2021 17:20-0400 Respiratory rate 11 /min Zev Hamlin [facility] 07-24-2021 17:20-0400 SaO2% (BldA) [Mass fraction] 100 % Zev Hamlin [facility] 07-24-2021 17:20-0400 Systolic blood pressure 106 mm[Hg] Zev Hamlin [facility] 07-24-2021 17:05-0400 Diastolic blood pressure 70 mm[Hg] Zev Hamlin [facility] 07-24-2021 17:05-0400 Heart rate 78 /min Zev Hamlin [facility] 07-24-2021 17:05-0400 Respiratory rate 11 /min Zev Hamlin [facility] 07-24-2021 17:05-0400 SaO2% (BldA) [Mass fraction] 100 % Zev Hamlin [facility] 07-24-2021 17:05-0400 Systolic blood pressure 109 mm[Hg] Zev Hamlin [facility] 07-24-2021 17:00-0400 Diastolic blood pressure 54 mm[Hg] Zev Hamlin [facility] 07-24-2021 16:53-0400 Body temperature 97.52 [degF] Zev Hamlin [facility] 07-24-2021 11:18-0400 Blood Pressure Location Zev Hamlin [facility] 07-24-2021 11:18-0400 BP/Pulse Patient Position Zev Hamlin [facility] 07-24-2021 11:18-0400 Mean blood pressure 78 mm[Hg] Zev Hamlin [facility] 07-24-2021 11:17-0400 Blood Pressure Location Zev Hamlin [facility] 07-24-2021 11:17-0400 Body temperature 98.24 [degF] Zev Hamlin [facility] 07-24-2021 11:17-0400 BP/Pulse Patient Position Zev Hamlin [facility] 07-24-2021 11:17-0400 Mean blood pressure 84 mm[Hg] Zev Hamlin [facility] 07-24-2021 11:17-0400 Respiratory rate 16 /min Zev Hamlin [facility] 07-24-2021 11:17-0400 Heart rate 72 /min Zev Hamlin [facility] 07-09-2021 09:07-0500 Diastolic blood pressure 62 mm[Hg] No PCP None [facility] 250 DO Work Phone: 07-09-2021 09:07-0500 Systolic blood pressure 102 mm[Hg] No PCP None [facility] Kelsey-Pratima 250 DO Work Phone: 07-09-2021 09:01-0500 Body height 160.02 cm No PCP None [facility] Connor 250 DO Work Phone: 07-09-2021 09:01-0500 Body mass index (BMI) [Ratio] 27.1 kg/m2 No PCP None [facility] Kelsey-Pratima 250 DO Work Phone: 07-09-2021 09:01-0500 Body surface area Derived from formula 1.73 m2 No PCP None [facility] Kelsey-Pr[place]ima 250 DO Work Phone: 07-09-2021 09:01-0500 Body weight 69.4 kg No PCP None [facility] Connor 250 DO Work Phone: 07-09-2021 09:01-0500 Diastolic blood pressure 62 mm[Hg] No PCP None [facility] Kelsey-Pratima 250 DO Work Phone: 07-09-2021 09:01-0500 Heart rate 59 /min No PCP None [facility] Connor 250 DO Work Phone: 07-09-2021 09:01-0500 Systolic blood pressure 104 mm[Hg] No PCP None [facility] Connor 250 DO Work Phone: 07-09-2021 09:01-0500 18 1 No PCP None [facility] [place] 250 DO Work Phone: Comment on above: PHQ-9 TS Encounters Encounter Date Encounter Type Care Provider Facility Start: 09-08-2023 End: 09-09-2023 ambulatory NO PCP NO PCP [facility] Start: 09-08-2023 Encounter for genera l adult medical examination without abnormal findings NO NO PCP [facility] Start: 08-19-2023 End: 08-19-2023 Emergency department patient visit NO PCP NO PCP [facility] Start: 07-06-2023 End: 07-06-2023 Emergency department patient visit Adolfo Hernandez Facility[facility] Start: 07-06-2023 End: 07-06-2023 Emergency department patient visit Adolfo Hernandez [facility] Start: 06-17-2023 End: 06-18-2023 ambulatory PB Olvera [facility] Start: 02-16-2023 ambulatory [facility] Start: 01-19-2023 ambulatory [facility] Start: 01-06-2023 [facility] Start: 12-10-2022 End: 12-11-2022 ambulatory DEZ JACKIE [facility] Start: 11-04-2022 ambulatory [facility] Start: 09-22-2022 End: 09-23-2022 ambulatory DEZ JACKIE [facility] Start: 09-13-2022 End: 09-14-2022 ambulatory DEZ JACKIELEELA [facility] Start: 09-13-2022 End: 09-13-2022 Subsequent hospital visit by physician [facility] Start: 09-10-2022 End: 09-11-2022 ambulatory DEZ JACKIELEELA [facility] Start: 09-10-2022 End: 09-10-2022 Subsequent hospital visit by physician [facility] Start: 04-19-2022 End: 04-20-2022 ambulatory DEZ JACKIE [facility] Start: 11-09-2021 End: 11-09-2021 Subsequent hospital visit by physician [facility] Start: 10-27-2021 End: 10-27-2021 Subsequent hospital visit by physician [facility] Start: 10-06-2021 End: 10-06-2021 Subsequent hospital visit by physician [facility] Start: 07-24-2021 End: 07-24-2021 Admission to same day surgery center Zev Hamlin [facility] Start: 07-09-2021 Office consultation new/estab patient 60 min No PCP None [facility] 250 DO Work Phone: Start: 07-04-2021 End: 07-04-[address] RADHA MOE Facility: Start: 06-29-2021 End: 10-15-2021 Recurring Zev Hamlin [facility] Patient [facility] Work [facility]: Procedures Date Procedure Procedure Detail Performing Clinician Start: 09-13-2022 Antibody hiv-1&hiv-2 single result Dez Jackie [employer]ST[employer] HANDLER - SATELLITE INSTALLATION TECHNICIAN Work Phone: Start: 09-13-2022 Comprehensive metabo lic panel Dez Jakcie [employer] HAND[employer]ER - SATELLITE INSTALLATION TECHNICIAN Work Phone: Start: 11-09-2021 Antibody hiv-1&hiv-2 single result Dez Jackie [employer]ST[employer] HANDLER - SATELLITE INSTALLATION TECHNICIAN Work Phone: Start: 11-09-2021 Comprehensive metabo lic panel Dez Jackie [employer]STOCK HANDLER - SATELLITE INSTALLATION TECHNICIAN Work Phone: Start: 10-27-2021 Urinalysis microscop ic only Dez Jackie [employer]OCK HANDLER - SATELLITE INSTALLATION TECHNICIAN Work Phone: Start: 10-27-2021 Urnls dip stick/tabl et rgnt auto w/o microscopy Dez Jackie [employer]STOCK HANDLER - SATELLITE INSTALLATION TECHNICIAN Work Phone: Start: 10-06-2021 Urinalysis microscop ic only Dez Jackie [employer]STOCK HANDLER - SATELLITE INSTALLATION TECHNICIAN Work Phone: Start: 10-06-2021 Urnls dip stick/tabl et rgnt auto w/o microscopy Dez Jackie [employer]STOCK HANDLER - SATELLITE INSTALLATION TECHNICIAN Work Phone: section No PCP None section [...] Influenza vaccination Flu vacc ine (Season Ended) [facility] Start: 01-06-2022 Screening for malign ant neoplasm of cervix [facility] Start: 12-31-2021 Influenza vaccination B ON [facility] Start: 11-25-2021 FUV, Provider: Ruddy Garcia, Status: Pen, Time: 3:00 PM FUV, Provider: Ruddy Garcia, Status: Pen, Time: 3:00 PM [facility] [employer] DO Work Phone: Start: 07-15-2021 ECHO, Provider: DAJA MCCURDY [facility] ULTRASOUND 01,[id number], Status: Pen, Time: 11:30 AM ECHO, Provider: PRATIMA [facility] ULTRASOUND 01,[id number], Status: Pen, Time: 11:30 AM [facility] [employer] 250 DO Work Phone: Start: 07-15-2021 STRESS NUC, Provider : PRATIMA CASTROI NUCLEAR 01,[id number], Status: Pen, Time: 11:30 AM STRESS NUC, Provider: PRATIMA HHVI NUCLEAR 01,[id number], Status: Pen, Time: 11:30 AM [facility] [employer] 250 DO Work Phone: Start: 01-06-2013 Screening for malign ant neoplasm of cervix [facility] Start: 01-06-2011 DTaP/Tdap/Td vaccine (1 - Tdap) DTaP/Tdap/Td vaccine (1 - Tdap) [facility] Start: 01-06-2010 Hepatitis C screening Hepatitis C sc reen [facility] [employer] Start: 2004 Depression Screen Depression Screen [facility] Start: 01-06-1998 Pneumococcal 0-64 ye ars Vaccine (1 - PCV) Pneumococcal 0-64 years Vaccine (1 - PCV) [email or web address] Start: 01-06-1997 COVID-19 Vaccine (1) COVID-19 Vaccin e (1) [email or web address] Start: 01-06-1993 Varicella vaccine (1 of 2 - 2-dose childhood series) Varicella vaccine (1 of 2 - 2-dose childhood series) [email or web address] Start: 1992 COVID-19 Vaccine (#1) COVID-19 Vacci ne (#1) [email or web address] End: 10-27-2021 Culture, Urine [email or web address] Work Phone: Comment on above: Once for 1 Occurrenc es starting 10/27/2021 until 10/27/2021 End: 09-13-2022 Hepatitis C RNA, quantitative, PCR [email or web address] Work Phone: Comment on above: Once for 1 Occurrenc es starting 09/13/2022 until 09/13/2022 Immunizations Immunization Date Immunization Notes Care Provider Seun marc 05-14-2012 influenza, seasonal, injectable Zev Boubacar [facility] Comment on above: Early/Late Reason: P atient Not Available/Off Unit 05-14-2012 measles, mumps and rubella virus vaccine Zev Boubacar [facility] Comment on above: Early/Late Reason: P atient Not Available/Off Unit Payers Date Payer Category Payer Unknown [id number] 2019 Unknown [id number] 1992 Unknown [id number] 1992 Unknown [id number] 1992 Unknown [id number] 1992 Unknown [id number] 1992 Unknown [id number] 1992 Unknown [id number] 1992 Unknown [id number] 1992 Unknown [id number] 1992 Unknown [id number] [id number] 1992 Unknown [id number] 1992 Unknown [id number] 1992 Unknown [id number] 1992 Unknown [id number] 1992 Unknown [id number] 1959 Unknown [id number] Unknown [facility] Social History Date Type Detail Facility Start: 08-14-2013 End: 10-13-2017 Consumes alcohol occasionally Consumes alcohol occasionally -[facility] [id number] DO Work Phone: Comment on above: <1PPD; Start: 06-25-2021 Tobacco smoking status Light t obacco smoker (finding) [facility] Sex Assigned At Female [facility] Start: 08-14-2013 End: 10-13-2017 Tobacco smoking status RIIS Smokes tobacco daily [facility] [employer] Work Phone: History of tobacco use Cigarette Smoker B ON [employer] Phone: Start: 08-14-2013 End: 10-13-2017 Tobacco use and exposure Smokeless tobacco non-user [employer] Phone: Start: 09-11-2018 Alcohol intake 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 ?Cover your mouth when you cough. Cover [...] provider. Document Revised: 07/23/2021 Document Reviewed: 07/23/2021 Enefgy Patient Education 2022 [employer]. Follow Up Care 07/06/2023 15:07:50 With:Boubacar MULLINS, Zev Webber, ROBYN Address: [address] [place] [id number] When:2 to 4 days With:[facility] Dept: [phone] Address:Unknown When:07/09/2023 [facility] 07-06-2023 Evaluation + Plan note Diagnostic Tests PendingChlam/GC/Trich,BETZAIDA 07/06/23Urine Culture 07/06/23 [facility] 07-24-2021 Hospital Discharge instructions Patient Education 07/24/2021 17:19:35 SCHOOL OPERATIONS MANAGER - Post D&C, Hysteroscopy, LEEP or Essure/Laparoscopy [...] Up Care 06/01/2021 16:23:25 With:Zev Hamlin Address: [address] [place], [place] [address] [id number] (1) When:2 weeks Comments:Call for any problems. [facility] Chief complaint Narrative - Reported DOUGLAS MYLES is being seen for a consultation for. POC abnormal ECG; Dr. Hamlin [facility] 250 DO Work Phone: Chief complaint Narrative - Reported DOUGLAS MYLES is being seen for a consultation for. POC abnormal ECG; Dr. Hamlin [facility] Work Phone: Evaluation + Plan note No data available for this section [facility] History of Present illness Narrative Patient is seen for preoperative risk assessment. She apparently presented for tubal ligation and procedure was canceled because of abnormal EKG.She has been in and out of the emergency room multiple times. Recently she was in [place] at the [facility] and they also noted abnormal EKG and [...] correspond with the surgeon in this regard. [facility] 250 DO Work Phone: History of Present illness Narrative Patient is seen for preoperative risk assessment. She apparently presented for tubal ligation and procedure was canceled because of abnormal EKG.She has been in and out of the emergency room multiple times. Recently she was in [place] at [facility] and they also noted abnormal EKG [...] correspond with the surgeon in this regard. 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 Hat Marker Expl anation ACP-Advance Directive ACP-Power of Program Management Specialist Latest Code Status on File Code Status Date Activated Date Inactivated Comments Full Code 03/06/2018 12:17 AM 03/06/2018 4:09 AM Latest Code Status on File Code Status Date Activated Date Inactivated Comments Full Code 03/06/2018 12:17 AM 03/06/2018 4:09 AM Additional Source Comments INFORMATION SOURCE (unrecogn ized section and content) DATE CREATED AUTHOR 07/14/2021 [facility] DATE CREATED AUTHOR AUTHOR'S ORGANIZ ATION 12/12/2022 [facility] DATE CREATED AUTHOR AUTHOR'S ORGANIZ ATION 02/17/2023 [facility] DATE CREATED AUTHOR AUTHOR'S ORGANIZ ATION 07/24/2023 [facility] DATE CREATED AUTHOR AUTHOR'S ORGANIZ ATION 09/13/2023 [facility] FOR RECORDS PERTAINING TO PATIENTS WHO ARE [...] BE BASED ON THE PRIMARY CLINICAL RECORDS. [facility]. provides no warranty or guarantee of the accuracy or completeness of information in this document.
--- NOTE | 2023-10-11 17:50 | ED.FEMALEGU1 ---
Documented by User: GLENDY Bajwa 10/11/23 18:41 HPI - Female Genitourinary General Chief complaint: Urogenital-Female Stated complaint: Possible , Hematuria Time Seen by Provider: 10/11/23 17:33 Source: patient Mode of arrival: walk-in Limitations: no limitations History of Present Illness HPI Narrative: 33-year-old female presents with her significant other with complaint of urinating blood. States she took a home test 2 days ago which was positive. She denies any fever, nausea, vomiting, vaginal bleeding, abdominal or pelvic pain, back pain. If she is , 6, para 4 Quality:?as above Severity:?mild Timing:?urinating blood today Context: Normal setting and activity? Modifying factors:?none Associated symptoms: none Related Data Home Medications ?Medication ?Instructions ?Recorded ?Confirmed bupropion HCl 300 mg 24 hr tablet, 300 mg PO DAILY 11/09/22 11/09/22 extended release ibuprofen 800 mg tablet mg 11/09/22 trazodone 100 mg tablet mg 11/09/22 no medications 05/22/23 buprenorphine 12 mg-naloxone 3 mg 1 film buccal DAILY 10/11/23 10/11/23 sublingual film (Suboxone) Previous Rx's ?Medication ?Instructions ?Recorded nystatin 100,000 unit/mL oral 400,000 unit (4 mL) buccal QID 14 10/10/22 suspension days #224 mL sulfamethoxazole 800 1 tab PO BID 5 days #10 tabs 10/10/22 mg-trimethoprim 160 mg tablet (Bactrim DS) ketorolac 10 mg tablet 10 mg PO TID PRN pain #12 tabs 01/17/23 benzonatate 100 mg capsule 100 mg PO TID PRN cough #20 caps 01/27/23 doxycycline hyclate 100 mg capsule 100 mg PO BID 10 days #20 caps 01/27/23 cephalexin 500 mg capsule 500 mg PO TID 10 days #30 caps 10/11/23 Allergies Allergy/AdvReac Type Severity Reaction Status Date / Time No Known Drug Allergies Allergy Verified 10/11/23 17:22 Review of Systems ROS Narrative CONST: Denies fever, chills RESP: Denies cough, shortness of breath CV: Denies chest pain, palpitations GI: Denies abd pain, nausea, vomiting : + hematuria. Denies dysuria, flank pain MS: Denies back pain, myalgias SKIN: Denies color change, rash NEURO: Denies numbness, weakness PSYCHIATRIC: Denies confusion, agitation PFSH PFSH Social History Smoking status: Current every day smoker Exam Narrative Exam Narrative: Vital signs reviewed Nurses notes noted CONST: Nontoxic, well appearing, well nourished, in no distress.? No diaphoresis.?? HENT: normocephalic, atraumatic, moist mucous membrane, no abnormalities of the nose noted, hearing normal EYES: normal appearing conjunctiva, no apparent discharge bilat NECK: normal appearance CV: normal rate, regular rhythm, no murmur RESP: normal effort, speaking in complete sentences. Lung sounds clear and equal bilat.? No wheezes, rales, rhonchi GI: normal bowel sounds, soft, no distension, nontender : no CVA tenderness MS: no edema SKIN: no pallor NEURO: A&Ox 3, no focal findings PSYCH: normal mood, affect Constitutional Vital Signs, click to edit/add: Last Vital Signs Temp 97.6 F 10/11/23 17:17 Pulse 74 10/11/23 17:17 Resp 16 10/11/23 17:17 BP 96/54 10/11/23 17:17 Pulse Ox 100 10/11/23 17:17 O2 Del Method Room Air 10/11/23 17:17 Course Vital Signs Vital signs: Vital Signs Temperature 97.6 F 10/11/23 17:17 Pulse Rate 74 10/11/23 17:17 Respiratory Rate 16 10/11/23 17:17 Blood Pressure 96/54 10/11/23 17:17 Pulse Oximetry 100 10/11/23 17:17 Oxygen Delivery Method Room Air 10/11/23 17:17 Temperature 97.6 F 10/11/23 17:17 Pulse Rate 74 10/11/23 17:17 Respiratory Rate 16 10/11/23 17:17 Blood Pressure 96/54 10/11/23 17:17 Pulse Oximetry 100 10/11/23 17:17 Oxygen Delivery Method Room Air 10/11/23 17:17 MDM - Female Genitourinary MDM Narrative Medical decision making narrative: This is a 33-year-old female who presented to the emergency department with complaint of urinating blood. Onset today. Also concerned because she had a positive home test 2 days ago. She denies any fever, chills, nausea, vomiting, abdominal pain, dysuria, frequency, back or flank pain. On arrival, afebrile, vital signs are stable. On exam, nontoxic, well-appearing patient in no distress. Heart regular rate and rhythm. Lung sounds clear and equal bilaterally. Abdomen soft, nontender. No CVA tenderness. Urinalysis shows evidence of urinary tract infection. Urine culture was sent. Urine test was negative Favor hematuria, urinary tract infection Ectopic less likely based on laboratory testing Disposition ? The patient was discharged. Plan: Patient will be discharged to home. Condition at time of disposition: stable She was given dose of Keflex in the emergency department and will have a prescription sent to her pharmacy. Advised to follow up with primary provider. Advised to return for any worsening and/or development of new, concerning signs or symptoms PLEASE NOTE: Portions of the medical record may have been produced using electronic die repairer stamping and may contain errors with respect to translation of words which may not have been identified prior to finalization of the chart. Medical Records Attestation: I reviewed the patient's medical records. Lab Data Attestation: I reviewed the patient's lab results. Labs: Lab Results 10/11/23 Range/Units 17:45 Urine Color Dk. yellow (YELLOW) Urine Clarity Clear (CLEAR) Urine pH 5.5 (5.0-9.0) Ur Specific [place] >=1.030 A (1.005-1.025) Urine Protein Negative (NEG/TRACE) mg/dL Urine Glucose (UA) Negative (NEGATIVE) mg/dL Urine Ketones Trace A (NEGATIVE) mg/dL Urine Occult Blood Small A (NEGATIVE) Urine Nitrite Positive A (NEGATIVE) Urine Bilirubin Moderate A (NEGATIVE) Urine Urobilinogen 2.0 A (0.2-1.0) EU/dL Ur Leukocyte Esterase Trace A (NEGATIVE) Urine RBC 5-10 A (0-2) #/HPF Urine WBC 5-10 A (NONE SEEN) #/HPF Ur Squamous Epith Cells Few A (NONE/RARE) #/LPF Urine Crystals None seen (None Seen) #/HPF Urine Bacteria Moderate A (NONE SEEN) #/HPF Urine Casts Seen A (NONE SEEN) #/LPF Hyaline Casts Rare Urine Mucus None seen (NONE SEEN) Ur Culture Indicated? Yes Urine HCG, Qual Negative (NEGATIVE) Discharge Plan Discharge Stand Alone Forms: Portal Instructions Chief Complaint: Urogenital-Female Clinical Impression: Urinary tract infection with hematuria Qualifiers: Urinary tract infection type: site unspecified Qualified Code(s): N39.0 - Urinary tract infection, site not specified Patient Disposition: Home, Self-Care Time of Disposition Decision: 18:35 Mode of Transportation: Private Vehicle Prescriptions / Home Meds: New cephalexin 500 mg capsule 500 mg PO TID 10 Days Qty: 30 0RF No Action nystatin 100,000 unit/mL suspension 400,000 unit buccal QID 14 Days Qty: 224 0RF Rx Instructions: administer 1/2 of dose in each side of the mouth sulfamethoxazole-trimethoprim [Bactrim DS] 800-160 mg tablet 1 tab PO BID 5 Days Qty: 10 0RF bupropion HCl 300 mg tablet extended release 24 hr 300 mg PO DAILY ibuprofen 800 mg tablet trazodone 100 mg tablet ketorolac 10 mg tablet 10 mg PO TID PRN (Reason: pain) Qty: 12 0RF no medications buprenorphine-naloxone [Suboxone] 12-3 mg film 1 film buccal DAILY doxycycline hyclate 100 mg capsule 100 mg PO BID 10 Days Qty: 20 0RF benzonatate 100 mg capsule 100 mg PO TID PRN (Reason: cough) Qty: 20 0RF Print Language: Turkish Instructions: Urinary Tract Infection in Women (ED), Hematuria (ED) Referrals: Delbert Xavier MD [Physician] - 1 week Discharge Date/Time: 10/11/23 18:53 Documented by User: Mcaario Nugent MD 10/11/23 20:38 HPI - Female Genitourinary General Chief complaint: Urogenital-Female Stated complaint: Possible , Hematuria Time Seen by Provider: 10/11/23 17:33 Related Data Home Medications ?Medication ?Instructions ?Recorded ?Confirmed bupropion HCl 300 mg 24 hr tablet, 300 mg PO DAILY 11/09/22 11/09/22 extended release ibuprofen 800 mg tablet mg 11/09/22 trazodone 100 mg tablet mg 11/09/22 no medications 05/22/23 buprenorphine 12 mg-naloxone 3 mg 1 film buccal DAILY 10/11/23 10/11/23 sublingual film (Suboxone) Previous Rx's ?Medication ?Instructions ?Recorded nystatin 100,000 unit/mL oral 400,000 unit (4 mL) buccal QID 14 10/10/22 suspension days #224 mL sulfamethoxazole 800 1 tab PO BID 5 days #10 tabs 10/10/22 mg-trimethoprim 160 mg tablet (Bactrim DS) ketorolac 10 mg tablet 10 mg PO TID PRN pain #12 tabs 01/17/23 benzonatate 100 mg capsule 100 mg PO TID PRN cough #20 caps 01/27/23 doxycycline hyclate 100 mg capsule 100 mg PO BID 10 days #20 caps 01/27/23 cephalexin 500 mg capsule 500 mg PO TID 10 days #30 caps 10/11/23 Allergies Allergy/AdvReac Type Severity Reaction Status Date / Time No Known Drug Allergies Allergy Verified 10/11/23 17:22 [facility] Social History Smoking status: Current every day smoker Exam Constitutional Vital Signs, click to edit/add: Last Vital Signs Temp 97.6 F 10/11/23 17:17 Pulse 74 10/11/23 17:17 Resp 16 10/11/23 17:17 BP 96/54 10/11/23 17:17 Pulse Ox 100 10/11/23 17:17 O2 Del Method Room Air 10/11/23 17:17 Course Vital Signs Vital signs: Vital Signs Temperature 97.6 F 10/11/23 17:17 Pulse Rate 74 10/11/23 17:17 Respiratory Rate 16 10/11/23 17:17 Blood Pressure 96/54 10/11/23 17:17 Pulse Oximetry 100 10/11/23 17:17 Oxygen Delivery Method Room Air 10/11/23 17:17 Temperature 97.6 F 10/11/23 17:17 Pulse Rate 74 10/11/23 17:17 Respiratory Rate 16 10/11/23 17:17 Blood Pressure 96/54 10/11/23 17:17 Pulse Oximetry 100 10/11/23 17:17 Oxygen Delivery Method Room Air 10/11/23 17:17 MDM - Female Genitourinary MDM Narrative Medical decision making narrative: This is a 33-year-old female who presented to the emergency department with complaint of urinating blood. Onset today. Also concerned because she had a positive home test 2 days ago. She denies any fever, chills, nausea, vomiting, abdominal pain, dysuria, frequency, back or flank pain. On arrival, afebrile, vital signs are stable. On exam, nontoxic, well-appearing patient in no distress. Heart regular rate and rhythm. Lung sounds clear and equal bilaterally. Abdomen soft, nontender. No CVA tenderness. Urinalysis shows evidence of urinary tract infection. Urine culture was sent. Urine test was negative Favor hematuria, urinary tract infection Ectopic less likely based on laboratory testing Disposition ? The patient was discharged. Plan: Patient will be discharged to home. Condition at time of disposition: stable She was given dose of Keflex in the emergency department and will have a prescription sent to her pharmacy. Advised to follow up with primary provider. Advised to return for any worsening and/or development of new, concerning signs or symptoms PLEASE NOTE: Portions of the medical record may have been produced using electronic die repairer stamping and may contain errors with respect to translation of words which may not have been identified prior to finalization of the chart. I, Dr Nugent, have reviewed the above progress note and course of action in the ER; agree with the above. I have gone over history and physical, and discussed disposition and treatment plan with the patient. Lab Data Labs: Lab Results 10/11/23 Range/Units 17:45 Urine Color Dk. yellow (YELLOW) Urine Clarity Clear (CLEAR) Urine pH 5.5 (5.0-9.0) Ur Specific [place] >=1.030 A (1.005-1.025) Urine Protein Negative (NEG/TRACE) mg/dL Urine Glucose (UA) Negative (NEGATIVE) mg/dL Urine Ketones Trace A (NEGATIVE) mg/dL Urine Occult Blood Small A (NEGATIVE) Urine Nitrite Positive A (NEGATIVE) Urine Bilirubin Moderate A (NEGATIVE) Urine Urobilinogen 2.0 A (0.2-1.0) EU/dL Ur Leukocyte Esterase Trace A (NEGATIVE) Urine RBC 5-10 A (0-2) #/HPF Urine WBC 5-10 A (NONE SEEN) #/HPF Ur Squamous Epith Cells Few A (NONE/RARE) #/LPF Urine Crystals None seen (None Seen) #/HPF Urine Bacteria Moderate A (NONE SEEN) #/HPF Urine Casts Seen A (NONE SEEN) #/LPF Hyaline Casts Rare Urine Mucus None seen (NONE SEEN) Ur Culture Indicated? Yes Urine HCG, Qual Negative (NEGATIVE) Discharge Plan Discharge Stand Alone Forms: Portal Instructions Chief Complaint: Urogenital-Female Clinical Impression: Urinary tract infection with hematuria Qualifiers: Urinary tract infection type: site unspecified Qualified Code(s): N39.0 - Urinary tract infection, site not specified Patient Disposition: Home, Self-Care Time of Disposition Decision: 18:35 Mode of Transportation: Private Vehicle Prescriptions / Home Meds: New cephalexin 500 mg capsule 500 mg PO TID 10 Days Qty: 30 0RF No Action nystatin 100,000 unit/mL suspension 400,000 unit buccal QID 14 Days Qty: 224 0RF Rx Instructions: administer 1/2 of dose in each side of the mouth sulfamethoxazole-trimethoprim [Bactrim DS] 800-160 mg tablet 1 tab PO BID 5 Days Qty: 10 0RF bupropion HCl 300 mg tablet extended release 24 hr 300 mg PO DAILY ibuprofen 800 mg tablet trazodone 100 mg tablet ketorolac 10 mg tablet 10 mg PO TID PRN (Reason: pain) Qty: 12 0RF no medications buprenorphine-naloxone [Suboxone] 12-3 mg film 1 film buccal DAILY doxycycline hyclate 100 mg capsule 100 mg PO BID 10 Days Qty: 20 0RF benzonatate 100 mg capsule 100 mg PO TID PRN (Reason: cough) Qty: 20 0RF Print Language: Turkish Instructions: Urinary Tract Infection in Women (ED), Hematuria (ED) Referrals: Delbert Xavier MD [Physician] - 1 week Discharge Date/Time: 10/11/23 18:53
[2023-10-11 17:58] LABS: Bilirubin Urine MODERATE (NEGATIVE); Blood Urine SMALL (NEGATIVE); Clarity Urine CLEAR (CLEAR); Color Urine DK. YELLOW (YELLOW); Glucose Urine UA NEGATIVE (NEGATIVE); Ketones Urine TRACE mg/dL (NEGATIVE); Leukocyte Esterase Urine TRACE (NEGATIVE); Nitrite Urine POSITIVE (NEGATIVE); Protein Urine NEGATIVE (NEG/TRACE); Specific Gravity Urine >=1.030 (1.005-1.025); pH Urine 5.5 (5.0-9.0)
[2023-10-11 18:07] LABS: Bacteria Urine MODERATE #/HPF (NONE SEEN); Mucus Urine NONE SEEN (NONE SEEN); Squamous Epithelial Cell Urine FEW #/LPF (NONE/RARE)
[2023-10-11 18:08] LABS: Cast Seen? SEEN #/LPF (NONE SEEN); Crystals Seen? None Seen #/HPF (None Seen); Hyaline Casts Urine RARE; Urine Culture Indicated YES
[2023-10-11 18:28] LABS: HCG Qualitative Urine* NEGATIVE (NEGATIVE)
[2023-10-11] MEDS: CEPHALEXIN 500 MG CAPSULE PO (18:51)
--- NOTE | 2023-10-15 15:04 | PC.NURSE ---
10/15/[address] stringer reviewed pt c+s from 10/11/23 nno. Yaniv Casas RN
== END 2023-10-11 18:53 | disposition home or self-care (01) ==
PROVIDERS: Physician Assistant; Emergency Provider Emergency Medicine
DX: N39.0 Urinary tract infection, site not specified (principal); R31.9 Hematuria, unspecified; F17.200 Nicotine dependence, unspecified, uncomplicated
CPT/HCPCS: 81001; 84703; 87086; 87150; 87186; 99283

== ENCOUNTER 2023-10-23 16:27 | Observation (INO) | payer OTHER, SELFPAY ==
[2023-10-23] VITALS (8 sets, daily range): BP systolic 85–105; BP diastolic 44–70; PULSE 64–80; TEMP 36.6–37.4; O2SAT 90–100; BMI 26.6; BMI 25.8
--- OUTSIDE RECORDS SUMMARY | 2023-10-23 16:55 | XMS_ITS | CCD ---
Author Organization [facility] ion Partnership [employer] [facility] Care Team Providers Care Park Maintainer Name Role Phone None, No PCP Unavailable [...] REF PROV, NOT IN SYSTEM Referring Unavaila PB [employer] Referring Unavailable SERVICES, [facility] Primary Care Unava ilable Medications Current Medications Medication Drug Class(es) Dates Sig (Normalized) Sig (Original) acetaminophen 325 mg / oxyCODONE hydrochloride 5 mg oral tablet (1 source) Opioid Agonist Start: 07-24-2021 End: 07-26-2021 Percocet 325 mg-5 mg Tab 1 tab(s), Oral, q6hr for pain for 2 day(s), 7 tab(s), Refill(s) 0, [facility] #[id number], 161, cm, 06/25/21 13:03:00 EST, Height/Length [...] by mouth 2 times daily 0 Active Wslbiidc-Uho-Kf-FA ( VITAMINS PO) (5 sources) Bgoitsoh-Xxj-Rx-FA ( VITAMINS PO) Take by mouth 0 [...] (GLYCO-HGB)on 2023 Glucose [Mass/Vol] 117 mg/dL Normal [facility] Comment on above: Performed By: #### A #### [facility] ([id number]) [address] [place] [address], [address] [place] [address] #### [id number] #### [facility] ([id number]) [address] [place] [address], [place] [address] HbA1c (Bld) [Mass fraction] 5.7 % High 4.4-5.6 [facility] Comment on above: Result Comment: NOTE ADA Guidelines Result HgbA1c Normal : less than 5.7 % Prediabetes : 5.7 % to 6.4 % Diabetes : > 6.4 % Use with caution in patients with abnormal hemoglobin variants as the half-life of red blood cells and in vivo glycation rates are affected. Performed By: #### A HP #### [facility] ([id number]) [facility], [address] [place] [address] #### [id number] #### [facility] ([id number]) [address] [place] [address]4823 Lipid 1996 panelon 4 Cholesterol [Mass/Vol] 99 mg/dL Low 150-200 [facility] Comment on above: Performed By: #### A HP #### [facility] ([id number]) [address] [place] [address], [address] [place] [address] #### 88254-2 #### [facility] ([id number]) [address] [place] [address] 98622 Cholesterol in HDL [Mass/Vol] 29 mg/dL Low >39 [facility] Comment on above: Result Comment: HDL <40 mg/dL - High Risk HDL > or = 40mg/dL- Desirable HDL >60 mg/dL - Negative Risk Performed By: #### A HP #### [facility] ([id number]) [address] [place] [address], [address] [place] [address] #### 50164-8 #### [facility] ([id number]) [address] [place] [address] 47327 Cholesterol in LDL [Mass/Vol] 44 mg/dL Normal <130 [facility] Comment on above: Result Comment: LDL <100 mg/dL - Desirable LDL >160 mg/dL - High Risk Performed By: #### A HP #### [facility] ([id number]) [address], [address] [place] [address] #### [id number] #### [facility] ([id number]) [address] [place] [address] 86316 Cholesterol in VLDL [Mass/Vol] 26 mg/dL Normal 0-30 [facility] Comment on above: Performed By: #### A HP #### [facility] ([id number]) [address], [address] [place] [address] #### 56186-1 #### [facility] ([id number]) [address] [place] [address] 97407 CHOLESTEROL:HDL 3.4 Normal 1.0-5.0 [facility] Comment on above: Performed By: #### A HP #### [facility] ([id number]) [address] [facility], [address] [place] [address] #### 09044-3 #### [facility] ([id number]) [address] [place] [address] 10525 Triglyceride [Mass/Vol] 131 mg/dL Normal 27-150 [facility] Comment on above: Performed By: #### A HP #### [facility] ([id number]) [address], [address] [place] [address] #### [id number] #### [facility] ([id number]) [address] [place] [address]641 Reference Lab Test IDon 05-0 VIT D 1 25 DIHYDROXY See Below Normal [facility] Comment on above: Result Comment: NOTE TEST RESULT FLAG UNIT REF.RANGE ------- Vit D,1,25 Dihydroxy 59.9 pg/mL 19.9-79.3 Test Performed By: [facility] [address] [place] [address] X Ray Examiner Of Aircraft: Krishna Mehta III #[id number] Performed By: #### A HP #### [facility] ([id number]) [address] [place] [address], [address] [place] [address] #### [id number] #### [facility] ([id number]) [address] [place] [address] 96640 TSH WITH REFLEXon 09-08-2023 TSH 1.36 uIU/mL Normal 0.49-4.67 [facility] Comment on above: Performed By: #### A HP #### [facility] ([id number]) [address] [place] [address], [address] [place] [address] #### 01642-6 #### [facility] ([id number]) [address] [place] [address] 11021 CBC AND AUTO DIFFon 08-19-19 24 Anisocytosis Ql (Bld) 2+ Abnormal NONE [facility] Comment on above: Performed By: #### C BRUCE, 3040-3, CBCA, #### [facility] ([id number]) [address] [place] [address] 19476 Erythrocyte distribution width (RBC) [Ratio] 23.1 % High 11.5-15.0 [facility] Comment on above: Performed By: #### C BRUCE, 3040-3, CBCA, #### [facility] ([id number]) [address] [place] [address] 86099 Hematocrit (Bld) [Volume fraction] 26.3 % Low 35-47 [facility] Comment on above: Performed By: #### C BRUCE, 3039-07, CBCA, 1987-08, #### [facility] ([id number]) [address] [place] [address] 19660 Hemoglobin (Bld) [Mass/Vol] 9.3 g/dL Low 11.7-15.5 [facility] Comment on above: Performed By: #### C BRUCE, 3039-07, CBCA, 1987-08, #### [facility] ([id number]) [address] [place] [address] 20513 Lymphocytes (Bld) [#/Vol] 1.0 10*3/uL Normal 1.0-3.5 [facility] Comment on above: Performed By: #### Ethan BARRERA, 3039-07, CBCA, 1987-08, #### [facility] ([id number]) [address] [place] [address] 93514 Lymphocytes/100 WBC (Bld) 48.0 % Normal [facility] Comment on above: Performed By: #### Ethan BARRERA, 3039-07, CBCA, #### [facility] ([id number]) [address] [place] [address] 53808 MCH (RBC) [Entitic mass] 42.6 pg High 27-34 [facility] Comment on above: Performed By: #### C BRUCE, 3039-07, CBCA, #### [facility] ([id number]) [address] [place] [address] 75068 MCHC (RBC) [Mass/Vol] 35.5 g/dL Normal 32-36 [facility] Comment on above: Performed By: #### C BRUCE, 3039-07, CBCA, -9 #### [facility] ([id number]) [address] [place] [address] 04073 MCV (RBC) [Entitic vol] 120 fL High 80-100 [facility] Comment on above: Performed By: #### C BRUCE, 3039-3, CBCA, 1987-08, #### [facility] ([id number]) [address] [place] [address] 39177 Monocytes (Bld) [#/Vol] 0.2 10*3/uL Normal 0-0.9 [facility] Comment on above: Performed By: #### Ethan BARRERA, 3039-07, CBCA, 1987-08, #### [facility] ([id number]) [address] [place] [address] 88722 Monocytes/100 WBC (Bld) 7.0 % Normal [facility] Comment on above: Performed By: #### Ethan BARRERA, 3039-07, CBCA, 1987-08, #### [facility] ([id number]) [address] [place] [address] 31924 Neutrophils (Bld) [#/Vol] 1.0 10*3/uL Low 1.5-6.6 [facility] Comment on above: Performed By: #### Ethan BARRERA, 3039-07, CBCA, 1987-08, #### [facility] ([id number]) [address] [place] [address] 17190 Platelet mean volume (Bld) [Entitic vol] 8.3 fL Normal 7-12 [facility] Comment on above: Performed By: #### C BRUCE, 3039-3, CBCA, 1987-08, #### [facility] ([id number]) [address] [place] [address] 60449 Platelets (Bld) [#/Vol] 122 10*3/uL Low 150-450 [facility] Comment on above: Performed By: #### C BRUCE, 0-3, CBCA, 1987-08, #### [facility] ([id number]) [address] [place] [address] 80292 RBC COUNT 2.19 X10E12/L Low 3.80-5.20 [facility] Comment on above: Performed By: #### C BRUCE, 0-3, CBCA, 1987-08, #### [facility] ([id number]) [address] [place] [address] 42150 SEG NEUTROPHIL 45.0 % Normal [facility] Comment on above: Performed By: #### C BRUCE, 3039-3, CBCA, 1987-08, #### [facility] ([id number]) [address] [place] [address] 59712 TEARDROP 1+ Abnormal NONE [facility] Comment on above: Performed By: #### Ethan BARRERA, 3039-07, CBCA, 1987-08, #### [facility] ([id number]) [address] [place] [address] 09463 WBC (Bld) [#/Vol] 2.2 10*3/uL Low 4.0-11.0 [facility] Comment on above: Performed By: #### C BRUCE, 0-3, CBCA, 1987-08, #### [facility] ([id number]) [address] [place] [address] 82526 COMPREHENSIVE METABOLIC PANE Elvin 08-19-2023 Albumin [Mass/Vol] 3.3 g/dL Normal 3.2-5.3 [facility] Comment on above: Performed By: #### Ethan BARRERA, 3040-3, CBCA, 1987-08, #### [facility] ([id number]) [address] [place] [address] 64755 ALP [Catalytic activity/Vol] 50 U/L Normal 39-130 [facility] Comment on above: Performed By: #### C BRUCE, 3040-3, CBCA, 1987-08, #### [facility] ([id number]) [address] [place] [address] 00108 ALT [Catalytic activity/Vol] 26 U/L Normal 0-31 [facility] Comment on above: Performed By: #### C BRUCE, 3039-3, CBCA, 1987-08, #### [facility] ([id number]) [address] [place] [address] 85321 Anion gap [Moles/Vol] 5 mmol/L Normal 5-15 [facility] Comment on above: Performed By: #### C BRUCE, 3039-3, CBCA, 1987-08, #### [facility] ([id number]) [address] [place] [address] 66002 AST [Catalytic activity/Vol] 29 U/L Normal 0-41 [facility] Comment on above: Performed By: #### C BRUCE, 0-3, CBCA, 1987-08, #### [facility] ([id number]) [address] [place] [address] 04148 Bilirubin [Mass/Vol] 1.2 mg/dL Normal 0.3-1.2 [facility] Comment on above: Performed By: #### C BRUCE, 0-3, CBCA, 1987-08, #### [facility] ([id number]) [address] [place] [address] 97704 Calcium [Mass/Vol] 9.0 mg/dL Normal 8.5-10.5 [facility] Comment on above: Performed By: #### C BRUCE, 0-3, CBCA, 1987-08, #### [facility] ([id number]) [address] [place] [address] 37876 Chloride [Moles/Vol] 107 mmol/L Normal 98-109 [facility] Comment on above: Performed By: #### C BRUCE, 3040-3, CBCA, 1987-08, #### [facility] ([id number]) [address] [place] [address] 46691 CO2 [Moles/Vol] 27 mmol/L Normal 22-32 [facility] Comment on above: Performed By: #### C BRUCE, 0-3, CBCA, 1987-08, #### [facility] ([id number]) [address] [place] [address] 15485 Creatinine [Mass/Vol] 0.53 mg/dL Normal 0.40-1.00 [facility] Comment on above: Result Comment: METH OD TRACEABLE TO IDMS STANDARD Performed By: #### C BRUCE, 0-3, CBCA, 1987-08, #### [facility] ([id number]) [address] [place] [address] 92507 eGFR (CKD-EPI) NON-RACE DEPENDENT >90 Normal >59 [facility] Comment on above: Result Comment: Reported eGFR is based on the CKD-EPI 2020 equation that does not use a race coefficient. Performed By: #### C BRUCE, 3040-3, CBCA, 1987-08, #### [facility] ([id number]) [address] [place] [address] 62091 Glucose [Mass/Vol] 94 mg/dL Normal 65-99 [facility] Comment on above: Performed By: #### C BRUCE, 3040-3, CBCA, 1987-08, #### [facility] ([id number]) [address] [place] [address] 06912 Potassium [Moles/Vol] 3.2 mmol/L Low 3.5-5.0 [facility] Comment on above: Performed By: #### C BRUCE, 3039-07, CBCA, 1987-08, #### [facility] ([id number]) [address] [place] [address] 22258 Protein [Mass/Vol] 5.5 g/dL Low 6.0-8.0 [facility] Comment on above: Performed By: #### C BRUCE, 3039-07, CBCA, 1987-08, #### [facility] ([id number]) [address] [place] [address] 42952 Sodium [Moles/Vol] 139 mmol/L Normal 134-146 [facility] Comment on above: Performed By: #### Ethan BARRERA, 3039-07, CBCMay, 1987-08, #### [facility] ([id number]) [address] [place] [address] 45600 Urea nitrogen [Mass/Vol] 11 mg/dL Normal 5-23 [facility] Comment on above: Performed By: #### Ethan BARRERA, 3039-07, CBCA, 1987-08, #### [facility] ([id number]) [address] [place] [address] 47503 CRP [Mass/Vol]on 08-19-2023 C REACTIVE PROTEIN 0.9 mg/dL High 0.000-0.744 [facility] Comment on above: Performed By: #### Ethan BARRERA, 3039-07, CBCA, 1987-08, #### [facility] ([id number]) [address] [place] [address] 99109 DRUG SCREEN, URINEon 024 AMPHETAMINE/METHAMP Negative Normal NEG [facility] Comment on above: Result Comment: AMPH /METH screening cut off = 1000 ng/mL Performed By: #### A HP #### [facility] ([id number]) [address], [address] [place] [address] #### 20084-7 #### [facility] ([id number]) [address] [place] [address] 38569 BARBITURATES Negative Normal NEG [facility] Comment on above: Result Comment: Ana iturates screening cut off value = 200 ng/mL Performed By: #### A HP #### [facility] ([id number]) [address], [address] [place] [address] #### 29969-7 #### [facility] ([id number]) [address] [place] [address] 32917 BENZODIAZEPINES Negative Normal NEG [facility] Comment on above: Result Comment: Jeramie odiazepines screening cut off value = 200 ng/mL Performed By: #### A #### [facility] ([id number]) [address], [address] [place] [address] #### 71701-8 #### [facility] ([id number]) [address] [place] [address] 78508 CANNABINOIDS Positive Abnormal NEG [facility] Comment on above: Result Comment: Conf irmation available upon request. Cannabinoids/THC screening cut off value = 50 ng/mL Performed By: #### A HP #### [facility] ([id number]) [address], [address] [place] [address] #### 09571-6 #### [facility] ([id number]) [address] [place] [address] 93205 COCAINE METABOLITE Negative Normal NEG [facility] Comment on above: Result Comment: Coca ine screening cut off value = 300 ng/mL Performed By: #### A HP #### [facility] ([id number]) [address] [place] [address], [address] [place] [address] #### 80647-6 #### [facility] ([id number]) [address] [place] [address] 67505 ECSTASY Negative Normal NEG [facility] Comment on above: Result Comment: Ecst asy screening cut off value = 500 ng/mL This report is intended for use in clinical monitoring or management of patients. Performed By: #### A #### [facility] ([id number]) [address] [place] [address], [facility] [address] [place] [address] #### 35398-2 #### [facility] ([id number]) [address] [place] [address] 28744 METHADONE Negative Normal [facility] Comment on above: Result Comment: Meth adone screening cut off value = 300 ng/mL. Performed By: #### A #### [facility] ([id number]) [address] [place] [address], [facility] [address] [place] [address] #### 39055-6 #### [facility] ([id number]) [address] [place] [address] 05984 OPIATES Negative Normal [facility] Comment on above: Result Comment: Opia chalo screening cut off value = 300 ng/mL NOTE: This test is used for the detection of codeine, hydrocodone (>1000 ng/mL), morphine and hydromorphone (>900 ng/mL) in urine. Performed By: #### A HP #### [facility] ([id number]) [address] [place] [address], [address] [place] [address] #### 46361-5 #### [facility] ([id number]) [address] [place] [address] 79251 OXYCODONE Negative Normal NEG [facility] Comment on above: Result Comment: Oxyc odone screening cut off value = 300 ng/mL NOTE: This test is used for the detection of oxycodone and oxymorphone in urine. Performed By: #### A HP #### [facility] ([id number]) [address] [place] [address], [address] [place] [address] #### 47898-7 #### [facility] ([id number]) [address] [place] [address] 49855 PHENCYCLIDINE Negative Normal NEG [facility] Comment on above: Result Comment: Phen cyclidine screening cut off value = 25 ng/mL Performed By: #### A HP #### [facility] ([id number]) [address] [place] [address], [address] [place] [address] #### 94003-6 #### [facility] ([id number]) [address] [place] [address] 17878 HCG ( test) Ql (U)o n 08-19-2023 Beta HCG ( test) Ql (U) Negative Normal NEG [facility] Comment on above: Performed By: #### 2 106-3 #### [facility] ([id number]) [address] [place] [address] 26653 LIPASEon 08-19-2023 Lipase [Catalytic activity/Vol] 25 U/L Normal 17-40 [facility] Comment on above: Performed By: #### C BRUCE, 3040-3, CBCA, #### [facility] ([id number]) [address] [place] [address] 92669 MAGNESIUMon 08-19-2023 Magnesium [Mass/Vol] 1.9 mg/dL Normal 1.8-2.6 [facility] Comment on above: Performed By: #### C BRUCE, 3040-3, CBCA, #### [facility] ([id number]) [address] [place] [address] 28192 SARS/FLU A+B/RSV by NAAT/Mol ecularon 08-19-2023 SARS/FLU [...] operators who are performing tests using either [employer] or [employer] systems and is limited to laboratories that [...] repeat. Fact Sheet for Healthcare Providers: https://www.fda.gov/ media/056263/downloa d Fact Sheet for Patients: https://www.fda.gov/ media/940035/downloa d [facility] Comment on above: Performed By: #### C OVFLR #### [facility] ([id number]) [address] [place] [address] [place] [address] URN MACROSCOPIC NURon 2023 BILIRUBIN ERA Small Abnormal NEG [facility] Comment on above: Performed By: #### N UM #### [facility] ([id number]) [address] [place] [address] [place] [address] BLOOD/HGB ERA Trace Abnormal NEG [facility] Comment on above: Performed By: #### N UM #### [facility] ([id number]) [address] [place] [address] [place] [address] GLUCOSE ERA Negative Normal NEG [facility] Comment on above: Performed By: #### N UM #### [facility] ([id number]) [address] [place] [address] [place] [address] KETONES ERA Negative Normal NEG [facility] Comment on above: Performed By: #### N UM #### [facility] ([id number]) [address] [place] [address] [place] [address] LEUKOCYTE ESTERASE ERA Small Abnormal NEG [facility] Comment on above: Performed By: #### N UM #### [facility] ([id number]) [address] [place] [address], [place] [address] NITRITE ERA Positive Abnormal NEG [facility] Comment on above: Performed By: #### N UM #### [facility] ([id number]) [address] [place] [address] [place] [address] PH ERA 6.0 Normal 5.0-8.5 [facility] Comment on above: Performed By: #### N UM #### [facility] ([id number]) [address] [place] [address] [place] [address] PROTEIN ERA Negative Normal NEG [facility] Comment on above: Performed By: #### N UM #### [facility] ([id number]) [address] [facility], [place] [address] SPECIFIC GRAVITY ERA 1.025 Normal 1.003-1.035 [facility] Comment on above: Performed By: #### N UM #### [facility] ([id number]) [address] [facility], [place] [address] UROBILINOGEN ERA >=8.0 Normal <1.1 [facility] Comment on above: Performed By: #### N UM #### [facility] ([id number]) [address] [facility], [place] [address] ED Note-Physicianon 07-23-19 ED Note-Physician Basic Information Time Seen: Bernadette Gil PA-C 07/06/2023 15:16 Chief Complaint Pt reports vaginal itching and burning with urination for 1.5 months. Brown vaginal discharge. Pt also reports sinus congestion for 3-4 days. History of Present Illness 33-year-old female presents with brown vaginal discharge for the past 2 months. She states that she has followed up in [place] [facility] for this, but they did not [...] to follow-up with the health department or [employer]. Nasal congestion sounds viral and can use lzxi-ymb-hleacmd medications and follow-up family doctor. Afebrile, not [...] prescription medications Follow-up With When Contact Information [facility] Dept: [phone] In 3 days 07/09/2023 EST Additional Instructions: Boubacar MULLINS, Zev Webber, ORS Within 2 to 4 days [address] [facility], [address] [place] [address]- Additional Instructions: Patient Education Viral Respiratory Infection, Awsb-Ae-Njpa Attestation I performed a substantive part of [...] No. Hous (more content not included)... Normal [facility] Comment on above: Result Comment: Elec tronically Signed By: Bernadette Gil PA-C\.br\Date and Time Signed: 07/06/23 16:00 EST\.br\Electronically Co-Signed By: Adolfo Hernandez MD\.br\Date and Time Co-Signed: 07/23/23 19:29 EDT Chlam/GC/Trich,NAAon 024 C. trachomatis rRNA BETZAIDA+probe Ql (Unsp spec) Negative Invalid Interpretation Code Negative [facility] Comment on above: Performed By: #### 1 [id number] #### [facility] [address] [place] [address] N. gonorrhoeae rRNA BETZAIDA+probe Ql (Unsp spec) Negative Invalid Interpretation Code Negative [facility] Comment on above: Performed By: #### 1 [id number] #### [facility] [address] [facility] [place] [address] T. vaginalis rRNA BETZAIDA+probe Ql (Unsp spec) Negative Invalid Interpretation Code Negative [facility] Comment on above: Result Comment: Perf ormed at: =G [facility] [address] Lou [id number] MD Tamika Eid Performed By: #### 1 [id number] #### [facility] [address] [place] [address] C Urineon 07-08-2023 Bacteria identified Cx Nom [...] Locations R1: This test was performed at: [facility], [address] [place] [address], [id number] , , [facility] Comment on above: Performed By: #### 2 [id number] #### [place] [facility] [address] [place] [address] CHEMISTRYOrdered By: SYSTEM SYSTEM on 07-06-2023 Amphetamines [...] for Treatmenton Consent for Treatment [id number] #1.00TIFF Normal [facility] Discharge Instructionson Discharge Instructions [id number]#1.00TIFF Normal [facility] ED Clinical Summaryon 2023 ED Clinical Summary [address] [address] ED Clinical Summary Person Information Name: SANGEETA MYLES [facility] Age: 33 Years : 1990 Sex: Female Language: Qatari PCP: NONE, XXXX Marital Status: Single Visit [...] 16:02:43 07/06/2023 16:02:43 07/06/2023 16:02:43 ADDRESS: [address] [facility] [id number] PHYS DOC NOTES: MEDICAL INFORMATION: Prescriptions Given: Medications to Continue with No Changes Other Medications albuterol (albuterol 0.083% Inh Valerie 3 mL) 3 Milliliter Inhalation every 6 hours as needed for wheezing. PATIENT EDUCATION INFORMATION: Instructions: Viral Respiratory Infection, Etzg-Kq-Kyai Follow up: With: Address: When: Boubacar MULLINS, Zev Webber, ORS [address] [facility] [place] [address] Within 2 to 4 days With: Address: When: [facility] Dept: [phone] In 3 days 07/09/2023 DIAGNOSIS: 1:Viral sinusitis; 2:Vaginal discharge; Other viral agents as the cause of diseases classified elsewhere Normal [facility] ED Patient Education Noteon 07-06-2023 ED [...] home: Managing pain and congestion ? 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 ? Cover your mouth when you cough. [...] Reviewed: 07/23/2021 Elsevier Patient Education ? 2022 [employer]. Normal [facility] ED Patient Summaryon 024 ED Patient Summary [address] [address] Patient Discharge Instructions Person Information Name: SANGEETA MYLES Age: 33 Years Arrival Date: 07/06/2023 15:07:04 Discharge Diagnosis: 1:Viral sinusitis; 2:Vaginal discharge; Other viral agents as the cause of diseases classified elsewhere Primary Care Physician: NONE, XXXX Provider Information Primary Provider: Advanced Pan Dumper:None The exam and treatment you received in the Emergency Department were for an urgent problem and are not intended as complete care. It is important that you follow up with a doctor, nurse practitioner, or physician?s anesthesiologists' assistant for ongoing care. If your symptoms [...] When: Boubacar MULLINS, Zev Webber, ORS [address] [facility], [facility] [address] [place] [address] Within 2 to 4 days With: [facility]: [facility] [phone] In 3 days 07/09/2023 In the event that this physician does not participate in your insurance network, please consult with your insurance company to find a nearby participating provider. Patient Education Materials: Viral Respiratory Infection, Ehmb-Af-Yzln A MESSAGE TO ALL PATIENTS REGARDING OPIOIDS PRESCRIPTION OPIOIDS: WHAT YOU NEED TO KNOW Prescription opioids can be used to help relieve wdyftkrn-pd-ycsqbk pain and are often prescribed following a [...] be strugglin (more content not included)... Normal [facility] No Panel InformationOrdered By: Bella Flower on 07-06-2023 WP No clue cells present No Trichomonas vaginalis present No yeast seen [facility] SEROLOGYOrdered By: Jules Stovereon on 07-06-2023 HCG.beta subunit (U) [Moles/Vol] Negative Normal [facility] [place] Sero U BetaHcg Qualon 07-06-2023 HCG.beta subunit (U) [Moles/Vol] Negative Normal [facility] Comment on above: Performed By: #### 2 [id number], [id number], [id number] #### [facility] [address] [place] [address] U Drug Screenon 07-06-2023 Amphetamines Screen method >1000 ng/mL Ql (U) Negative Normal NEGATIVE [facility] Comment on above: Performed By: #### 2 [id number] #### [facility] [address] [place] [address] Barbiturates Screen Ql (U) Negative Normal NEGATIVE [facility] Comment on above: Performed By: #### 2 [id number] #### [facility] [address] [place] [address] Benzodiazepines Ql (U) Negative Normal NEGATIVE [facility] Comment on above: Performed By: #### 2 [id number] #### [facility] [address] [place] [address] Cannabinoids Screen Ql (U) Positive Abnormal NEGATIVE [facility] Comment on above: Performed By: #### 2 [id number] #### [facility] [address] [place] [address] Cocaine Ql (U) Negative Normal NEGATIVE [facility] Comment on above: Performed By: #### 2 623180 #### [facility] [address] [place] [address] Opiates Screen Ql (U) Negative Normal NEGATIVE [facility] Comment on above: Performed By: #### 2 [id number] #### [facility] [address] [place] [address] Phencyclidine Screen method >25 ng/mL Ql (U) Negative Normal NEGATIVE [facility] Comment on above: Performed By: #### 2 011245 #### [facility] [address] [place] [address] UA With Cult Reflexon 2023 Color (U) YELLOW Normal Yellow [facility] Comment on above: Performed By: #### 2 [id number], [id number], [id number] #### [facility] [address] [place] [address] Glucose (U) [Mass/Vol] Negative Normal Negative [facility] Comment on above: Performed By: #### 2 9313577, 81604530, 9344799 #### [facility] [address] [place] [address] Ketones Ql (U) Negative Normal Negative [facility] Comment on above: Performed By: #### 2 1489062, 17539144, 0142078 #### [facility] [address] [place] [address] UA Blood Negative Normal Negative [facility] Comment on above: Performed By: #### 2 4820705, 33288716, 6320300 #### [facility] [address] [place] [address] UA Amorph Nelsy Present Normal [facility] Comment on above: Performed By: #### 2 1048713, 48985953, 1097094 #### [facility] [address] [place] [address] UA Bacteria TRACE Normal Trace [facility] Comment on above: Performed By: #### 2 4067264, 30710915, 0118280 #### [facility] [address] [place] [address] UA Clarity CLEAR Normal Clear [facility] Comment on above: Performed By: #### 2 9225459, 27691787, 2668735 #### [facility] [address] [place] [address] UA Leuk Est 2+ Abnormal Negative [facility] Comment on above: Performed By: #### 2 1239197, 73232393, 6476544 #### [facility] [address] [place] [address] UA Mucous 1+ Normal [facility] Comment on above: Performed By: #### 2 3252669, 68960236, 0628813 #### [facility] [address] [place] [address] UA Nitrite Negative Normal Negative [facility] Comment on above: Performed By: #### 2 2761868, 98525308, 4665675 #### [facility] [address] [place] [address] UA pH 8.5 Invalid Interpretation Code 5.0-9.0 [facility] Comment on above: Performed By: #### 2 9246282, 35326947, 6114121 #### [facility] [address] [place] [address] UA Protein 2+ Abnormal Negative [facility] Comment on above: Performed By: #### 2 5017597, 72305563, 1753570 #### [facility] [address] [place] [address] UA RBC 0-3 Normal 0-3 [facility] Comment on above: Performed By: #### 2 9857681, 42485053, 0790557 #### [facility] [address] [place] [address] UA Spec Desc Clean Catch Normal [facility] Comment on above: Performed By: #### 2 3075844, 16742450, 2875043 #### [facility] [address] [place] [address] UA Spec Grav 1.010 Invalid Interpretation Code 1.005-1.030 [facility] Comment on above: Performed By: #### 2 5208275, 03948856, 6915287 #### [facility] [address] [place] [address] UA Squam Epithelial 3-4 Normal 0-[address] [facility] Comment on above: Performed By: #### 2 9846885, 42091895, 8050408 #### [facility] [address] [place] [address] UA Urobilinogen 4.0 EU/dL Abnormal 0.0-1.0 [facility] Comment on above: Performed By: #### 2 4850839, 57812719, 5595746 #### [facility] [address] [place] [address] UA WBC 16-25 Abnormal 0-5 [facility] Comment on above: Performed By: #### 2 8496863, 39488147, 9109341 #### [facility] [address] [place], [place] [address] Urobilinogen (U) [Mass/Vol] Negative Normal Negative [facility] Comment on above: Performed By: #### 2 2208339, 14101622, 4801997 #### [facility] [address] [place] [address] URINALYSISOrdered By: Jules Ny on 07-06-2023 Color (U) Yellow (07/06/23 3:19 PM) Normal Yellow [facility] UA Auto SS Ketones Ql (U) Negative [...] HCV W/PCR REFLX Reactive Abnormal NRCT [facility] Comment on above: Result Comment: Supplemental testing for HCV RNA by PCR has been ordered per CDC recommendations. Njbdrr-ns-qcbreq ratio is >=1.00. Performed By: #### A #### [facility] ([id number]) [address], [address] [place] [address] #### 21770-3 #### [facility] ([id number]) [address] [place] [address] HEPATITIS A IGM Non-Reactive Normal NRCT [facility] Comment on above: Performed By: #### A HP #### [facility] ([id number]) [address], [address] [place] [address] #### 75712-3 #### [facility] ([id number]) [address] [place] [address] HEPATITIS B CORE IGM Negative Normal NEG [facility] Comment on above: Performed By: #### A HP #### [facility] ([id number]) [address], [address] [place] [address] #### 47210-4 #### [facility] ([id number]) [address] [place] [address] HEPATITIS B SURF AG Negative Normal NEG [facility] Comment on above: Performed By: #### A HP #### [facility] ([id number]) [address], [address] [place] [address] #### 65164-6 #### [facility] ([id number]) [address] [place] [address] HCV RNA BETZAIDA+probe Qnon 06-17 HCV RNA QUANT PCR [id number] IU/mL Abnormal Undetected [facility] Comment on above: Result Comment: NOTE Result in log IU/mL is 6.72. ADDITIONAL INFORMATION The quantification range of this assay is 15 to 100,000,000 IU/mL (1.18 log to 8.00 log IU/mL). Testing was performed using the valentin HCV test ([employer] Test Performed by: [facility] [address] [facility], [place] [address] Marketing Manager: Ruddy Gonzalez M.D. Ph.D.; CLIA# [id number] Performed By: #### A HP #### [facility] ([id number]) [address], [address] [place] [address] #### 24844-5 #### [facility] ([id number]) [address] [place] [address], [place] [address] Cult,Urineon 12-11-2022 Cult,Urine Specimen Description .URINE Culture Several types of bacteria were identified in this specimen. Further ID and susceptibility testing is generally not helpful in this circumstance and has not been performed. Consider recollection if clinically indicated. Report Status FINAL 12/11/2022 Normal [facility] Comment on above: Performed By: #### P HEP, HIVCMB #### [address] [address] Marketing Manager: Antonino Nova MD #### BMPCMP, BMP, CBC #### [facility] [address] [place] [address] [place] [address] Marketing Manager: Merlin Charles MD UA w/Reflex Cultureon 2022 Bilirubin, SemiQt,Ur Negative Normal NEG [facility] Comment on above: Performed By: #### P HEP, HIVCMB #### [address] [address] Marketing Manager: Antonino Nova MD #### BMPCMP, BMP, CBC #### [facility] [address] [place] [address] Marketing Manager: Merlin Charles MD Blood, Urine Negative Normal NEG [facility] Comment on above: Performed By: #### P HEP, HIVCMB #### [address] [address] Marketing Manager: Antonino Nova MD #### BMPCMP, BMP, CBC #### [address] [place], [place] [address]83 Marketing Manager: Merlin Charles MD Clarity (U) Clear Normal CLEAR [facility] Comment on above: Performed By: #### P HEP, HIVCMB #### [address] [address] Marketing Manager: Antonino Nova MD #### BMPCMP, BMP, CBC #### [address] [place], [place] 413[address]83 Marketing Manager: Merlin Charles MD Color (U) Yellow Normal YEL [facility] Comment on above: Performed By: #### P HEP, HIVCMB #### [address] [address] Marketing Manager: Antonino Nova MD #### BMPCMP, BMP, CBC #### [address] [place], [place] [address] Marketing Manager: Merlin Charles MD Glucose Ql (U) Negative Normal NEG [facility] Comment on above: Performed By: #### P HEP, HIVCMB #### [address] [address] Marketing Manager: Antonino Nova MD #### BMPCMP, BMP, CBC #### [address] [place], [place] [address]83 Marketing Manager: Merlin Charles MD Ketones Ql (U) Negative Normal NEG [facility] Comment on above: Performed By: #### P HEP, HIVCMB #### [address] [address] Marketing Manager: Antonino Nova MD #### BMPCMP, BMP, CBC #### [address] [place], [place] 90[address]83 Marketing Manager: Merlin Charles MD Leukocyte esterase Test strip Ql (U) LARGE Abnormal NEG [facility] Comment on above: Performed By: #### P HEP, HIVCMB #### [address] [address] Marketing Manager: Antonino Nova MD #### BMPCMP, BMP, CBC #### [address] [place], [place] 7512283 Marketing Manager: Merlin Charles MD Nitrite,Ur Negative Normal NEG [facility] Comment on above: Performed By: #### P HEP, HIVCMB #### [address] [address] Marketing Manager: Antonino Nova MD #### BMPCMP, BMP, CBC #### [address] [place] [address] Marketing Manager: Merlin Charles MD PH,Ur 6.0 Normal 5.0-9.0 [facility] Comment on above: Performed By: #### P HEP, HIVCMB #### [address] [address] Marketing Manager: Antonino Nova MD #### BMPCMP, BMP, CBC #### [address] [place], [place] [phone] Marketing Manager: Merlin Charles MD Protein Ql (U) Negative Normal NEG [facility] Comment on above: Performed By: #### P HEP, HIVCMB #### [address] [address] Marketing Manager: Antonino Nova MD #### BMPCMP, BMP, CBC #### [address] [place], [place] 1324[address] Marketing Manager: Merlin Charles MD Spec. Tynan,Ur 1.025 High 1.010-1.020 [facility] Comment on above: Performed By: #### P HEP, HIVCMB #### [address] [address] Marketing Manager: nAtonino Nova MD #### BMPCMP, BMP, CBC #### [facility] [address] [place] [address] [place] [address] Marketing Manager: Merlin Charles MD Urobilinogen,Ur Normal Normal 0.0-1.0 [facility] Comment on above: Performed By: #### P HEP, HIVCMB #### [address] [address] Marketing Manager: Antonino Nova MD #### BMPCMP, BMP, CBC #### [address] [place] [phone] Marketing Manager: Merlin Charles MD Urinalysis,Microon 3 Bacteria 3+ Abnormal NONE [facility] Comment on above: Performed By: #### P HEP, HIVCMB #### [address] [address] Marketing Manager: Antonino Nova MD #### BMPCMP, BMP, CBC #### [address] [place] [phone] Marketing Manager: Merlin Charles MD Epithelial cells LM Ql (Urine sed) 0 TO 2 Normal 0-25 [facility] Comment on above: Performed By: #### P HEP, HIVCMB #### [address] [address] Marketing Manager: Antonino Nova MD #### BMPCMP, BMP, CBC #### [address] [place] [address] Marketing Manager: Merlin Charles MD Urine RBC's 0 TO 2 Normal 0-2 [facility] Comment on above: Performed By: #### P HEP, HIVCMB #### [facility] [address] [place], [place] [phone] Marketing Manager: Antonino Nova MD #### BMPCMP, BMP, CBC #### [facility] [address] [place] [address] [place] [address] Marketing Manager: Merlin Charles MD Urine WBC's 10 TO 20 Normal 0-5 [facility] Comment on above: Performed By: #### P HEP, HIVCMB #### [place] [address] [place], [place] [phone] Marketing Manager: Antonino Nova MD #### BMPCMP, BMP, CBC #### [facility] [address] [place] [address] [place] [address] Marketing Manager: Melrin Charles MD Cult,Urineon 09-24-2022 Cult,Urine Specimen Description .VOIDED URINE Culture ESCHERICHIA COLI >328233 CFU/ML STREPTOCOCCI, BETA HEMOLYTIC GROUP B >520052 CFU/ML Report Status FINAL 09/24/2022 SUSCEPTIBILITY Organism [...] Tobramycin <=1 SUSCEPTIBLE Trimethoprim/Sulfa <=20 SUSCEPTIBLE Susceptible [facility] Comment on above: Performed By: #### U RC #### [address] [phone] Marketing Manager: Antonino Nova MD [facility] [address] [place] [address] [place] [address] Marketing Manager: Merlin Charles MD Chlamydia/GC,DNA Ampon 09-23 Chlamydia Probe Negative Normal [facility]G [facility] Comment on above: Result [...] Performed By: #### U ANKITA UA #### [facility] [address] [place] [address] [place] [address] Marketing Manager: Merlin Charles MD #### SWCGP #### [address] [phone] Marketing Manager: Antonino Nova MD Gonorrhea Probe Negative [facility] Comment on above: Result Comment: NEIS [...] Performed By: #### U ANKITA UA #### [facility] [address] [place] [address] [place] [address] Marketing Manager: Merlin Charles MD #### SWCGP #### [address] [address] Marketing Manager: Antonino Nova MD Trichomonas/Wet Prepon 09-22 Trichomonas/Wet Prep Specimen Descriptio n .VAGINAL SPECIMEN Direct Exam NO YEAST OBSERVED NO TRICHOMONAS SEEN NO CLUE CELLS SEEN Report Status FINAL 09/22/2022 [facility] Comment on above: Performed By: #### P HEP, HIVCMB #### [address] [address] Marketing Manager: Antonino Nova MD #### BMPCMP, BMP, CBC #### [facility] [address] [place] [address] Marketing Manager: Merlin Charles MD Urinalysis, Routineon 2022 Bilirubin, SemiQt,Ur Negative Normal NEG [facility] Comment on above: Performed By: #### U MICAO, UA #### [facility] [address] [place] [address] Marketing Manager: Merlin Charles MD #### SWCGP #### [address] [address] Marketing Manager: Antonino Nova MD Blood, Urine Negative Normal NEG [facility] Comment on above: Performed By: #### U MICAO, UA #### [facility] [address] [place] [address] [place], [place] 7084483 Marketing Manager: Merlin Charles MD #### SWCGP #### [address] [address] Marketing Manager: Antonino Nova MD Clarity (U) Cloudy Abnormal CLEAR [facility] Comment on above: Performed By: #### U MICAO, UA #### [facility] [address] [place] [address] [place], [place] [phone] Marketing Manager: Merlin Charles MD #### SWCGP #### [address] [address] Marketing Manager: Antonino Nova MD Color (U) Yellow Normal YEL [facility] Comment on above: Performed By: #### U MICAO, UA #### [facility] [address] [place], [place] [phone] Marketing Manager: Merlin Charles MD #### SWCGP #### [address] [address] Marketing Manager: Antonino Nova MD Glucose Ql (U) Negative [facility] Comment on above: Performed By: #### U MICAO, UA #### [facility] [address] [place] [address] Dr. [place], [place] [phone] Marketing Manager: Merlin Charles MD #### SWCGP #### [address] [address] Marketing Manager: Antonino Nova MD Ketones Ql (U) Negative Normal NEG [facility] Comment on above: Performed By: #### U MICAO, UA #### [facility] [address] [place] [address] Dr. [place], [place] 6756583 Marketing Manager: Merlin Charles MD #### SWCGP #### [address] [phone] Marketing Manager: Antonino Nova MD Leukocyte esterase Test strip Ql (U) MODERATE Abnormal NEG [facility] Comment on above: Performed By: #### U MICAO, UA #### [facility] [address] [place] [address] Dr. [place], [place] 1489683 Marketing Manager: Merlin Charles MD #### SWCGP #### [address] [address] Marketing Manager: Antonino Nova MD Nitrite,Ur Positive Abnormal NEG [facility] Comment on above: Performed By: #### U MICAO, UA #### [facility] [address] [place] [address] Dr. [place], [place] 7350183 Marketing Manager: Merlin Charles MD #### SWCGP #### [address] [address] Marketing Manager: Antonino Nova MD PH,Ur 6.0 Normal 5.0-9.0 [facility] Comment on above: Performed By: #### U MICAO, UA #### [address] [place] [address] Marketing Manager: Merlin Charles MD #### SWCGP #### [address] [address] Marketing Manager: Antonino Nova MD Protein Ql (U) Negative Normal NEG [facility] Comment on above: Performed By: #### U MICAO, UA #### [address] [place] [address] Marketing Manager: Merlin Charles MD #### SWCGP #### [address] [address] Marketing Manager: Antonino Nova MD Spec. Tynan,Ur 1.025 High 1.010-1.020 [facility] Comment on above: Performed By: #### U MICAO, UA #### [address] [place] [phone] Marketing Manager: Merlin Charles MD #### SWCGP #### [address] [address] Marketing Manager: Antonino Nova MD Urobilinogen,Ur Normal Normal NORM [facility] Comment on above: Performed By: #### U MICAO, UA #### [address] [place] [phone] ( Marketing Manager: Merlin Charles MD #### SWCGP #### [address] [address] Marketing Manager: Antonino Nova MD Urinalysis,Microon 3 Bacteria 3+ Abnormal NONE [facility] Comment on above: Performed By: #### U MICAO, UA #### [address] [place], [place] [phone] Marketing Manager: Merlin Charles MD #### SWCGP #### [address] [address] Marketing Manager: Antonino Nova MD Epithelial cells LM Ql (Urine sed) 0 TO 2 Normal 0-25 [facility] Comment on above: Performed By: #### U KIMO, UA #### [facility] [address] [place], [place] [phone] Marketing Manager: Merlin Charles MD #### SWCGP #### [address] [address] Marketing Manager: Antonino Nova MD Mucus Strands 1+ Abnormal NONE [facility] Comment on above: Performed By: #### U KIMO, UA #### [facility] [address] [place] [address] Dr. [place], [place] [phone] Marketing Manager: Merlin Charles MD #### SWCGP #### [address] [address] Marketing Manager: Antonino Nova MD Urine RBC's 0 TO 2 Normal 0-2 [facility] Comment on above: Performed By: #### U ANKITA, UA #### [facility] [address] [place] [address] [place], [place] [phone] Marketing Manager: Merlin Charles MD #### SWCGP #### [address] [address] Marketing Manager: Antonino Nova MD Urine WBC's 10 TO 20 Normal 0-5 [facility] Comment on above: Performed By: #### U KIMO, UA #### [facility] [address] [place] [address] Dr. [place], [place] [phone] Marketing Manager: Merlin Charles MD #### SWCGP #### [address] [address] [address] Marketing Manager: Antonino Nova MD HCV RNA,Quant,PCRon 05-16-20 23 HCV Quant [id number] IU/mL Normal [facility] Comment on above: Performed By: #### H CVQN #### [facility] [address] [place] [address] Marketing Manager: Antonino Nova MD [facility] [address] [place] [address] [place] [address] Marketing Manager: Merlin Charles MD HCV RNA,Quant Detected Abnormal NOTDET [facility] Comment on above: Result Comment: INTERPRETIVE [...] (HCT/P). Performed By: #### H CVQN #### [facility] [address] [place] [address] Marketing Manager: Antonino Nova MD [facility] [address] [place] [address] [place] [address] Marketing Manager: Merlin Charles MD HCV,RNA Log 6.95 Log IU/mL [facility] Comment on above: Performed By: #### H CVQN #### [facility] [address] [place] [address] Marketing Manager: Antonino Nova MD [facility] [address] [place] [address] [place] [address] Marketing Manager: Merlin Charles MD [facility] 09-13-2022 Erythrocyte distribution width (RBC) [Ratio] 17.7 % High 11.8-14.4 [facility] Comment on above: Performed By: #### P HEP, HIVCMB #### [address] [address] Marketing Manager: Antonino Nova MD #### BMPCMP, BMP, CBC #### [address] [place] [phone] Marketing Manager: Merlin Charles MD Hematocrit (Bld) [Volume fraction] 39.8 % Normal 36.3-47.1 [facility] Comment on above: Performed By: #### P HEP, HIVCMB #### [place] [address] Marketing Manager: Antonino Nova MD #### BMPCMP, BMP, CBC #### [address] [place] [phone] Marketing Manager: Merlin Charles MD Hemoglobin (Bld) [Mass/Vol] 13.5 g/dL Normal 11.9-15.1 [facility] Comment on above: Performed By: #### P HEP, HIVCMB #### [place] [address] Marketing Manager: Antonino Nova MD #### BMPCMP, BMP, CBC #### [address] [place] [phone] Marketing Manager: Merlin Charles MD MCH (RBC) [Entitic mass] 35.6 pg High 25.2-33.5 [facility] Comment on above: Performed By: #### P HEP, HIVCMB #### [place] [phone] Marketing Manager: Antonino Nova MD #### BMPCMP, BMP, CBC #### [address] [place] [phone] Marketing Manager: Merlin Charles MD MCHC (RBC) [Mass/Vol] 33.9 g/dL Normal 28.4-34.8 [facility] Comment on above: Performed By: #### P HEP, HIVCMB #### [address] [phone] Marketing Manager: Antonino Nova MD #### BMPCMP, BMP, CBC #### [address] [place] [phone] Marketing Manager: Merlin Charles MD MCV (RBC) [Entitic vol] 105.0 fL High 82.6-102.9 [facility] Comment on above: Performed By: #### P HEP, HIVCMB #### [address] [phone] Marketing Manager: Antonino Nova MD #### BMPCMP, BMP, CBC #### [address] [place] [address] Marketing Manager: Merlin Charles MD NRBC Automated 0.0 per 100 WBC Normal 0.0 [facility] Comment on above: Performed By: #### P HEP, HIVCMB #### [address] [phone] Marketing Manager: Antonino Nova MD #### BMPCMP, BMP, CBC #### [address] [place] [phone] Marketing Manager: Merlin Charles MD Platelet mean volume (Bld) [Entitic vol] 10.2 fL Normal 8.1-13.5 [facility] Comment on above: Performed By: #### P HEP, HIVCMB #### [address] [phone] Marketing Manager: Antonino Nova MD #### BMPCMP, BMP, CBC #### [address] [place] [phone] Marketing Manager: Merlin Charles MD Platelets (Bld) [#/Vol] 128 10*3/uL Low 138-453 [facility] Comment on above: Performed By: #### P HEP, HIVCMB #### [address] [phone] Marketing Manager: Antonino Nova MD #### BMPCMP, BMP, CBC #### [facility] [address] [place] [address] Dr. [place] [phone] Marketing Manager: Merlin Charles MD RBC (Bld) [#/Vol] 3.79 10*6/uL Low 3.95-5.11 [facility] Comment on above: Performed By: #### P HEP, HIVCMB #### [address] [phone] Marketing Manager: Antonino Nova MD #### BMPCMP, BMP, CBC #### [address] [place] [phone] Marketing Manager: Merlin Charles MD WBC (Bld) [#/Vol] 3.7 10*3/uL Normal 3.5-11.3 [facility] Comment on above: Performed By: #### P HEP, HIVCMB #### [address] [address] Marketing Manager: Antonino Nova MD #### BMPCMP, BMP, CBC #### [facility] [address] [place] [address] [place] [address] Marketing Manager: Merlin Charles MD Hematocrit (Bld) [Volume fraction] 39.8 % 36.3 - 47.1 % [facility] Hemoglobin (Bld) [Mass/Vol] 13.5 g/dL 11.9 - 15.1 g/dL [facility] Interpretation and review of laboratory results Abnormal [facility] MCH (RBC) [Entitic mass] 35.6 pg High 25.2 - 33.5 pg [facility] MCHC (RBC) [Mass/Vol] 33.9 g/dL 28.4 - 34.8 g/dL [facility] MCV (RBC) [Entitic vol] 105.0 fL High 82.6 - 102.9 fL [facility] NRBC Automated 0.0 0.0 per 100 WBC [facility] Platelet distribution width (Bld) [Ratio] 17.7 % High 11.8 - 14.4 % [facility] Platelet mean volume (Bld) [Entitic vol] 10.2 fL 8.1 - 13.5 fL [facility] Platelets (Bld) [#/Vol] 128 10*3/uL Low [facility] RBC (Bld) [#/Vol] 3.79 10*6/uL Low 3.95 - 5.1 1 m/uL [facility] WBC (Bld) [#/Vol] 3.7 10*3/uL [facility] Comp Metabolic Profon 2022 Albumin [Mass/Vol] 4.1 g/dL Normal 3.5-5.2 [facility] Comment on above: Performed By: #### P HEP, HIVCMB #### [address] [phone] Marketing Manager: Antonino Nova MD #### BMPCMP, BMP, CBC #### [address] [place] [address] Marketing Manager: Merlin Charles MD Albumin/Glob Ratio 2.1 Normal 1.0-2.5 [facility] Comment on above: Performed By: #### P HEP, HIVCMB #### [address] [phone] Marketing Manager: Antonino Nova MD #### BMPCMP, BMP, CBC #### [address] [place] [address] Marketing Manager: Merlin Charles MD Alkaline Phos 67 U/L Normal 35-104 [facility] Comment on above: Performed By: #### P HEP, HIVCMB #### [address] [address] Marketing Manager: Antonino Nova MD #### BMPCMP, BMP, CBC #### [address] [place] [phone] Marketing Manager: Merlin Charles MD ALT [Catalytic activity/Vol] 41 U/L High 5-33 [facility] Comment on above: Performed By: #### P HEP, HIVCMB #### [address] [address] Marketing Manager: Antonino Nova MD #### BMPCMP, BMP, CBC #### [address] [place] [phone] ( Marketing Manager: Merlin Charles MD Anion gap [Moles/Vol] 6 mmol/L Low 9-17 [facility] Comment on above: Performed By: #### P HEP, HIVCMB #### [address] [address] Marketing Manager: Antonino Nova MD #### BMPCMP, BMP, CBC #### [address] [place] [phone] Marketing Manager: Merlin Charles MD AST [Catalytic activity/Vol] 52 U/L High <32 [facility] Comment on above: Performed By: #### P HEP, HIVCMB #### [address] [address] Marketing Manager: Antonino Nova MD #### BMPCMP, BMP, CBC #### [address] [place] [phone] Marketing Manager: Merlin Charles MD Bilirubin [Mass/Vol] 0.6 mg/dL Normal 0.3-1.2 [facility] Comment on above: Performed By: #### P HEP, HIVCMB #### [place] [address] [place] [address] Marketing Manager: Antonino Nova MD #### BMPCMP, BMP, CBC #### [facility] [address] [place] [phone] Marketing Manager: Merlin Charles MD BUN/CRE Ratio 16 Normal 9-20 [facility] Comment on above: Performed By: #### P HEP, HIVCMB #### [address] [address] Marketing Manager: Antonino Nova MD #### BMPCMP, BMP, CBC #### [facility] [address] [place] [address] Dr. [place] [phone] Marketing Manager: Merlin Charles MD Calcium [Mass/Vol] 10.0 mg/dL Normal 8.6-10.4 [facility] Comment on above: Performed By: #### P HEP, HIVCMB #### [address] [address] Marketing Manager: Antonino Nova MD #### BMPCMP, BMP, CBC #### [address] [place] [phone] Marketing Manager: Merlin Charles MD Chloride [Moles/Vol] 108 mmol/L High 98-107 [facility] Comment on above: Performed By: #### P HEP, HIVCMB #### [address] [address] Marketing Manager: Antonino Nova MD #### BMPCMP, BMP, CBC #### [facility] [address] [place] [address] [place] [address] Marketing Manager: Merlin Charles MD CO2 [Moles/Vol] 28 mmol/L Normal 20-31 [facility] Comment on above: Performed By: #### P HEP, HIVCMB #### [place] [address] [place] [address] Marketing Manager: Antonino Nova MD #### BMPCMP, BMP, CBC #### [facility] [address] [place] [address] Marketing Manager: Merlin Charles MD Creatinine [Mass/Vol] 0.61 mg/dL Normal 0.50-0.90 [facility] Comment on above: Performed By: #### P HEP, HIVCMB #### [address] [phone] Marketing Manager: Antonino Nova MD #### BMPCMP, BMP, CBC #### [facility] [address] [place] [address] Marketing Manager: Merlin Charles MD GFR/1.73 sq M.predicted among non-blacks MDRD (S/P/Bld) [Vol rate/Area] mL/min/{1.73_m2} Normal >60 [facility] Comment on above: Result Comment: These [...] Performed By: #### P HEP, HIVCMB #### [address] [phone] Marketing Manager: Antonino Nova MD #### BMPCMP, BMP, CBC #### [facility] [address] [place] [address] Marketing Manager: Merlin Charles MD Glucose [Mass/Vol] 87 mg/dL Normal 70-99 [facility] Comment on above: Performed By: #### P HEP, HIVCMB #### [place] [address] [place] [address] Marketing Manager: Antonino Nova MD #### BMPCMP, BMP, CBC #### [facility] [address] [place], [place] [phone] Marketing Manager: Merlin Charles MD Potassium [Moles/Vol] 5.0 mmol/L Normal 3.7-5.3 [facility] Comment on above: Performed By: #### P HEP, HIVCMB #### [address] [address] Marketing Manager: Antonino Nova MD #### BMPCMP, BMP, CBC #### [address] [place] [phone] Marketing Manager: Merlin Charles MD Protein [Mass/Vol] 6.1 g/dL Low 6.4-8.3 [facility] Comment on above: Performed By: #### P HEP, HIVCMB #### [address] [address] Marketing Manager: Antonino Nova MD #### BMPCMP, BMP, CBC #### [address] [place] [phone] Marketing Manager: Merlin Charles MD Sodium [Moles/Vol] 142 mmol/L Normal 135-144 [facility] Comment on above: Performed By: #### P HEP, HIVCMB #### [address] [address] Marketing Manager: Antonino Nova MD #### BMPCMP, BMP, CBC #### [facility] [address] [place] [address] Dr. [place], [place] [phone] Marketing Manager: Merlin Charles MD Urea nitrogen [Mass/Vol] 10 mg/dL Normal 6-20 [facility] Comment on above: Performed By: #### P HEP, HIVCMB #### [facility] [address] [place] [address] Marketing Manager: Antonino Nova MD #### BMPCMP, BMP, CBC #### [facility] [address] [place] [address] Marketing Manager: Merlin Charles MD Comprehensive Metabolic Pane [facility] 09-13-2022 Albumin [Mass/Vol] 4.1 g/dL 3.5 - 5.2 g/dL [facility] Albumin/Globulin [Mass ratio] 2.1 {ratio} 1.0 - 2.5 [facility] ALP [Catalytic activity/Vol] 67 U/L 35 - 104 U/L [facility] ALT [Catalytic activity/Vol] 41 U/L High 5 - 33 U/L [facility] Anion gap [Moles/Vol] 6 mmol/L Low 9 - 17 mmol/L [facility] AST [Catalytic activity/Vol] 52 U/L High NINF - 32 U/L [facility] Bilirubin [Mass/Vol] 0.6 mg/dL 0.3 - 1 .2 mg/dL [facility] Calcium [Mass/Vol] 10.0 mg/dL 8.6 - 10. 4 mg/dL [facility] Chloride [Moles/Vol] 108 mmol/L High 98 - 10 7 mmol/L [facility] CO2 [Moles/Vol] 28 mmol/L 20 - 31 mmol/L [facility] Creatinine [Mass/Vol] 0.61 mg/dL 0.50 - 0.90 mg/dL [facility] GFR/1.73 sq M.predicted MDRD (S/P/Bld) [Vol rate/Area] - [facility] Comment on above: These results are not [...] [Mass/Vol] 87 mg/dL 70 - 99 mg/dL [facility] Interpretation and review of laboratory results Abnormal [facility] Potassium [Moles/Vol] 5.0 mmol/L 3.7 - 5.3 mmol/L [facility] Protein [Mass/Vol] 6.1 g/dL Low 6.4 - 8.3 g/dL [facility] Sodium [Moles/Vol] 142 mmol/L 135 - 144 mmol/L [facility] Urea nitrogen [Mass/Vol] 10 mg/dL 6 - 20 mg/dL [facility] Urea nitrogen/Creatinine (Bld) [Mass ratio] 16 9 - 20 [facility] HCG Qualitative, Serumon hCG Qual Negative NEGATIVE [facility] Comment on above: Specimens with hCG l evels near the threshold of the test (25 mIU/mL) may give a negative or indeterminate result. In such cases, another test should be performed with a new specimen in 48-72 hours. If early is suspected clinically in this setting, correlation with quantitative serum b-hCG level is suggested. [employer] has confirmed the use of plasma for this test. This has not been cleared or approved by the U.S. Food and Drug Administration. The FDA has determined that such clearance is not necessary. [facility] HCG Screen, Bloodon 09-14-19 HCG Screen, Blood Negative Normal NEG [facility] Comment on above: Result Comment: Spec imens with hCG levels near the threshold of the test (25 mIU/mL) may give a negative or indeterminate result. In such cases, another test should be performed with a new specimen in 48-72 hours. If early is suspected clinically in this setting, correlation with quantitative serum b-hCG level is suggested. [employer] has confirmed the use of plasma for this test. This has not been cleared or approved by the [place].S. Food and Drug Administration. The FDA has determined that such clearance is not necessary. Performed By: #### P HEP, HIVCMB #### [facility] [place] [address] Marketing Manager: Antonino Nova MD #### BMPCMP, BMP, CBC #### [address] [place], [place] [phone] Marketing Manager: Merlin Charles MD HCV RNA,Quant,PCRon 09-14-19 23 Source .PLASMA Normal [facility] Comment on above: Performed By: #### H CVQN #### [address] [address] Marketing Manager: Antonino Nova MD [address] [place], [place] [phone] Marketing Manager: Merlin Charles MD HIV Ag/Abon 09-13-2022 HIV Ag/Ab Non-Reactive Normal NR [facility] Comment on above: Result Comment: No l aboratory evidence of HIV infection. If acute HIV infection is suspected, consider testing for HIV-1 RNA. Performed By: #### P HEP, HIVCMB #### [address] [address] Marketing Manager: Antonino Nova MD #### BMPCMP, BMP, CBC #### [address] [place], [place] [phone] Marketing Manager: Merlin Charles MD HIV Screenon 09-13-2022 HIV 1+2 Ab+HIV1 p24 Ag IA Ql Non-Reactive NONREACTIVE [facility] Comment on above: No laboratory eviden ce of HIV infection. If acute HIV infection is suspected, consider testing for HIV-1 RNA. [facility] Hepatitis Acute Jonnie 09-13 Hep A Ab,IgM Non-Reactive Normal NR [facility] Comment on above: Performed By: #### P HEP, HIVCMB #### [facility] [address] [place] [address] Marketing Manager: Antonino Nova MD #### BMPCMP, BMP, CBC #### [address] [place], [place] [phone] Marketing Manager: Merlin Charles MD Hep B Core Ab,IgM Non-Reactive Normal [facility] Comment on above: Performed By: #### P HEP, HIVCMB #### [place] [address] [place] [address] Marketing Manager: Antonino Nova MD #### BMPCMP, BMP, CBC #### [address] [place] [address] Marketing Manager: Merlin Charles MD Hep B Surf Ag Non-Reactive Normal [facility] Comment on above: Performed By: #### P HEP, HIVCMB #### [address] [address] Marketing Manager: Antonino Nova MD #### BMPCMP, BMP, CBC #### [address] [place], [place] [phone] Marketing Manager: Merlin Charles MD Hep C Ab Reactive Abnormal [facility] Comment on above: Result Comment: The [...] Performed By: #### P HEP, HIVCMB #### [place] [address] [place] [address] Marketing Manager: Antonino Nova MD #### BMPCMP, BMP, CBC #### [address] [place], [place] [phone] Marketing Manager: Merlin Charles MD Hepatitis Panel, Acute HAV IgM Ql (S) Non-Reactive NONREACTIVE [facility] HBV core IgM Ql (S) Non-Reactive NONREACTIVE [facility] HBV surface Ag IA Ql Non-Reactive NONREACTIVE B ON [facility] HCV Ab IA Ql Reactive Abnormal NONREACTIVE [facility] Comment on above: The hepatitis [...] Interpretation and review of laboratory results Abnormal [facility] Comp Metabolic Addonon 04-20 Albumin [Mass/Vol] 4.5 g/dL Normal 3.5-5.2 [facility] Comment on above: Performed By: #### P HEP, HIVCMB #### [address] [phone] Marketing Manager: Antonino Nova MD #### BMPCMP, BMP, CBC #### [address] [place] [address] Marketing Manager: Merlin Charles MD Albumin/Glob Ratio 2.0 Normal 1.0-2.5 [facility] Comment on above: Performed By: #### P HEP, HIVCMB #### [address] [phone] Marketing Manager: Antonino Nova MD #### BMPCMP, BMP, CBC #### [address] [place] [address] Marketing Manager: Merlin Charles MD Alkaline Phos 81 U/L Normal 35-104 [facility] Comment on above: Performed By: #### P HEP, HIVCMB #### [address] [phone] Marketing Manager: Antonino Nova MD #### BMPCMP, BMP, CBC #### [facility] [address] [place] [address] Dr[place] [phone] Marketing Manager: Merlin Charles MD ALT [Catalytic activity/Vol] 106 U/L High 5-33 [facility] Comment on above: Performed By: #### P HEP, HIVCMB #### [place] [address] [place] [address] Marketing Manager: Antonino Nova MD #### BMPCMP, BMP, CBC #### [facility] [address] [place] [address] [place], [place] [phone] Marketing Manager: Merlin Charles MD AST [Catalytic activity/Vol] 77 U/L High <32 [facility] Comment on above: Performed By: #### P HEP, HIVCMB #### [address] [phone] Marketing Manager: Antonino Nova MD #### BMPCMP, BMP, CBC #### [address] [place], [place] [phone] Marketing Manager: Merlin Charles MD Bilirubin [Mass/Vol] 0.6 mg/dL Normal 0.3-1.2 [facility] Comment on above: Performed By: #### P HEP, HIVCMB #### [address] [address] Marketing Manager: Antonino Nova MD #### BMPCMP, BMP, CBC #### [address] [place], [place] [phone] Marketing Manager: Merlin Charles MD Protein [Mass/Vol] 6.7 g/dL Normal 6.4-8.3 [facility] Comment on above: Performed By: #### P HEP, HIVCMB #### [address] [phone] Marketing Manager: Antonino Nova MD #### BMPCMP, BMP, CBC #### [address] [place], [place] [phone] Marketing Manager: Merlin Charles MD HCV RNA,Quant,PCRon 04-20-20 HCV Quant 1,330,000 IU/mL Normal [facility] Comment on above: Performed By: #### P HEP, HIVCMB #### [address] [address] Marketing Manager: Antonino Nova MD #### BMPCMP, BMP, CBC #### [address] [place], [place] 1711283 Marketing Manager: Merlin Charles MD HCV RNA,Quant Detected Abnormal NOTDET [facility] Comment on above: Result Comment: HCV [...] Performed By: #### P HEP, HIVCMB #### [address] [phone] Marketing Manager: Antonino Nova MD #### BMPCMP, BMP, CBC #### [address] [place], [place] [phone] Marketing Manager: Merlin Charles MD HCV,RNA Log 6.12 Log IU/mL [facility] Comment on above: Performed By: #### P HEP, HIVCMB #### [address] [address] Marketing Manager: Antonino Nova MD #### BMPCMP, BMP, CBC #### [address] [place], [place] [phone] Marketing Manager: Merlin Charles MD Basic Metabolic Profon 04-19 Anion gap [Moles/Vol] 7 mmol/L Low 9- [facility] Comment on above: Performed By: #### P HEP, HIVCMB #### [address] [phone] Marketing Manager: Antonino Nova MD #### BMPCMP, BMP, CBC #### [facility] [address] [place], [place] [phone] Marketing Manager: Merlin Charles MD BUN/CRE Ratio 20 Normal - [facility] Comment on above: Performed By: #### P HEP, HIVCMB #### [address] [phone] Marketing Manager: Antonino Nova MD #### BMPCMP, BMP, CBC #### [address] [place], [place] [phone] Marketing Manager: Merlin Charles MD Calcium [Mass/Vol] 9.9 mg/dL Normal 8.6-10.4 [facility] Comment on above: Performed By: #### P HEP, HIVCMB #### [address] [address] Marketing Manager: Antonino Nova MD #### BMPCMP, BMP, CBC #### [address] [place], [place] [phone] Marketing Manager: Merlin Charles MD Chloride [Moles/Vol] 106 mmol/L Normal 98-107 [facility] Comment on above: Performed By: #### P HEP, HIVCMB #### [address] [address] Marketing Manager: Antonino Nova MD #### BMPCMP, BMP, CBC #### [address] [place], [place] 1618483 Marketing Manager: Merlin Charles MD CO2 [Moles/Vol] 29 mmol/L Normal 20-31 [facility] Comment on above: Performed By: #### P HEP, HIVCMB #### [facility] [address] [place] [address] Marketing Manager: Antonino Nova MD #### BMPCMP, BMP, CBC #### [address] [place], [place] [phone] Marketing Manager: Merlin Charles MD Creatinine [Mass/Vol] 0.79 mg/dL Normal 0.50-0.90 [facility] Comment on above: Performed By: #### P HEP, HIVCMB #### [address] [phone] Marketing Manager: Antonino Nova MD #### BMPCMP, BMP, CBC #### [address] [place], [place] [phone] Marketing Manager: Merlin Charles MD GFR/1.73 sq M.predicted among non-blacks MDRD (S/P/Bld) [Vol rate/Area] mL/min/{1.73_m2} Normal >60 [facility] Comment on above: Result Comment: Effective [...] Performed By: #### P HEP, HIVCMB #### [address] [phone] Marketing Manager: Antonino Nova MD #### BMPCMP, BMP, CBC #### [address] [place], [place] [phone] Marketing Manager: Merlin Charles MD Glucose [Mass/Vol] 98 mg/dL Normal 70-99 [facility] Comment on above: Performed By: #### P HEP, HIVCMB #### [address] [address] Marketing Manager: Antonino Nova MD #### BMPCMP, BMP, CBC #### [address] [place], [place] [phone] Marketing Manager: Merlin Charles MD Potassium [Moles/Vol] 4.6 mmol/L Normal 3.7-5.3 [facility] Comment on above: Performed By: #### P HEP, HIVCMB #### [address] [phone] Marketing Manager: Antonino Nova MD #### BMPCMP, BMP, CBC #### [address] [place], [place] [phone] Marketing Manager: Merlin Charles MD Sodium [Moles/Vol] 142 mmol/L Normal 135-144 [facility] Comment on above: Performed By: #### P HEP, HIVCMB #### [address] [address] Marketing Manager: Antonino Nova MD #### BMPCMP, BMP, CBC #### [address] [place], [place] 3995383 Marketing Manager: Merlin Charles MD Urea nitrogen [Mass/Vol] 16 mg/dL Normal 6-20 [facility] Comment on above: Performed By: #### P HEP, HIVCMB #### [address] [address] Marketing Manager: Antonino Nova MD #### BMPCMP, BMP, CBC #### [address] [place], [place] [phone] Marketing Manager: Merlin Charles MD CBCon 04-19-2022 Erythrocyte distribution width (RBC) [Ratio] 15.2 % High 11.8-14.4 [facility] Comment on above: Performed By: #### P HEP, HIVCMB #### [address] [address] Marketing Manager: Antonino Nova MD #### BMPCMP, BMP, CBC #### [address] [place], [place] [phone] Marketing Manager: Merlin Charles MD Hematocrit (Bld) [Volume fraction] 41.4 % Normal 36.3-47.1 [facility] Comment on above: Performed By: #### P HEP, HIVCMB #### [address] [address] Marketing Manager: Antonino Nova MD #### BMPCMP, BMP, CBC #### [address] [place] [phone] Marketing Manager: Merlin Charles MD Hemoglobin (Bld) [Mass/Vol] 13.3 g/dL Normal 11.9-15.1 [facility] Comment on above: Performed By: #### P HEP, HIVCMB #### [address] [address] Marketing Manager: Antonino Nova MD #### BMPCMP, BMP, CBC #### [address] [place] [address] Marketing Manager: Merlin Charles MD MCH (RBC) [Entitic mass] 33.8 pg High 25.2-33.5 [facility] Comment on above: Performed By: #### P HEP, HIVCMB #### [address] [phone] Marketing Manager: Antonino Nova MD #### BMPCMP, BMP, CBC #### [address] [place] [phone] Marketing Manager: Merlin Charles MD MCHC (RBC) [Mass/Vol] 32.1 g/dL Normal 28.4-34.8 [facility] Comment on above: Performed By: #### P HEP, HIVCMB #### [address] [phone] Marketing Manager: Antonino Nova MD #### BMPCMP, BMP, CBC #### [address] [place] [phone] Marketing Manager: Merlin Charles MD MCV (RBC) [Entitic vol] 105.3 fL High 82.6-102.9 [facility] Comment on above: Performed By: #### P HEP, HIVCMB #### [address] [address] Marketing Manager: Antonino Nova MD #### BMPCMP, BMP, CBC #### [address] [place] [phone] Marketing Manager: Merlin Charles MD NRBC Automated 0.0 per 100 WBC Normal 0.0 [facility] Comment on above: Performed By: #### P HEP, HIVCMB #### [address] [address] Marketing Manager: Antonino Nova MD #### BMPCMP, BMP, CBC #### [address] [place] [address] Marketing Manager: Merlin Charles MD Platelet mean volume (Bld) [Entitic vol] 9.1 fL Normal 8.1-13.5 [facility] Comment on above: Performed By: #### P HEP, HIVCMB #### [address] [address] Marketing Manager: Antonino Nova MD #### BMPCMP, BMP, CBC #### [facility] [address] [place], [place] [phone] Marketing Manager: Merlin Charles MD Platelets (Bld) [#/Vol] 203 10*3/uL Normal 138-453 [facility] Comment on above: Performed By: #### P HEP, HIVCMB #### [address] [address] Marketing Manager: Antonino Nova MD #### BMPCMP, BMP, CBC #### [address] [place] [phone] Marketing Manager: Merlin Charles MD RBC (Bld) [#/Vol] 3.93 10*6/uL Low 3.95-5.11 [facility] Comment on above: Performed By: #### P HEP, HIVCMB #### [address] [address] Marketing Manager: Antonino Nova MD #### BMPCMP, BMP, CBC #### [address] [place], [place] [phone] Marketing Manager: Merlin Charles MD WBC (Bld) [#/Vol] 4.1 10*3/uL Normal 3.5-11.3 [facility] Comment on above: Performed By: #### P HEP, HIVCMB #### [address] [address] Marketing Manager: Antonino Nova MD #### BMPCMP, BMP, CBC #### [address] [place], [place] [phone] Marketing Manager: Merlin Charles MD HCV RNA,Quant,PCRon 04-19-20 22 Source .PLASMA Normal [facility] Comment on above: Performed By: #### P HEP, HIVCMB #### [address] [address] Marketing Manager: Antonino Nova MD #### BMPCMP, BMP, CBC #### [address] [place], [place] [phone] Marketing Manager: Merlin Charles MD HIV Ag/Abon 04-19-2022 HIV Ag/Ab Non-Reactive Normal [facility] Comment on above: Result Comment: No l aboratory evidence of HIV infection. If acute HIV infection is suspected, consider testing for HIV-1 RNA. Performed By: #### P HEP, HIVCMB #### [address] [address] Marketing Manager: Antonino Nova MD #### BMPCMP, BMP, CBC #### [address] [place] [address] Marketing Manager: Merlin Charles MD Hepatitis Acute [facility] 04-19 Hep A Ab,IgM Non-Reactive Normal [facility] Comment on above: Performed By: #### P HEP, HIVCMB #### [address] [address] Marketing Manager: Antonino Nova MD #### BMPCMP, BMP, CBC #### [address] [place] [address] Marketing Manager: Merlin Charles MD Hep B Core Ab,IgM Non-Reactive Normal [facility] Comment on above: Performed By: #### P HEP, HIVCMB #### [address] [address] Marketing Manager: Antonino Nova MD #### BMPCMP, BMP, CBC #### [address] [place] [address] Marketing Manager: Merlin Charles MD Hep B Surf Ag Non-Reactive Normal [facility] Comment on above: Performed By: #### P HEP, HIVCMB #### [facility] [address] [place], [place] [phone] Marketing Manager: Antonino Nova MD #### BMPCMP, BMP, CBC #### [facility] [address] [place] [address] [place] [address] Marketing Manager: Merlin Charles MD Hep C Ab Reactive Abnormal [facility] Comment on above: Result Comment: The [...] Performed By: #### P HEP, HIVCMB #### [place] [id number] [place], [place] [phone] Marketing Manager: Antonino Nova MD #### BMPCMP, BMP, CBC #### [address] [place] [address] Marketing Manager: Merlin Charles MD [facility] 11-09-2021 Hematocrit (Bld) [Volume fraction] 39.5 % 36.3 - 47.1 % [facility] Hemoglobin (Bld) [Mass/Vol] 12.6 g/dL 11.9 - 15.1 g/dL [facility] Interpretation and review of laboratory results Abnormal [facility] MCH (RBC) [Entitic mass] 32.6 pg 25.2 - 33.5 pg [facility] MCHC (RBC) [Mass/Vol] 31.9 g/dL 28.4 - 34.8 g/dL [facility] MCV (RBC) [Entitic vol] 102.3 fL 82.6 - 102.9 fL [facility] NRBC Automated 0.0 0.0 per 100 WBC [facility] Platelet distribution width (Bld) [Ratio] 14.9 % High 11.8 - 14.4 % [facility] Platelet mean volume (Bld) [Entitic vol] 9.7 fL 8.1 - 13.5 fL [facility] Platelets (Bld) [#/Vol] 175 10*3/uL [facility] RBC (Bld) [#/Vol] 3.86 10*6/uL Low 3.95 - 5.1 1 m/uL [facility] WBC (Bld) [#/Vol] 3.4 10*3/uL Low [facility] Comprehensive Metabolic Pane elvin 11-09-2021 Albumin [Mass/Vol] 4.7 g/dL 3.5 - 5.2 g/dL [facility] Albumin/Globulin [Mass ratio] 2.5 {ratio} [facility] ALP (Bld) [Catalytic activity/Vol] 76 U/L 35 - 104 U/L [facility] ALT [Catalytic activity/Vol] 50 U/L High 5 - 33 U/L [facility] Anion gap [Moles/Vol] 10 mmol/L 9 - 17 mmol/L [facility] AST [Catalytic activity/Vol] 40 U/L High <32 [facility] Bilirubin [Mass/Vol] 0.55 mg/dL 0.3 - 1 .2 mg/dL [facility] Calcium [Mass/Vol] 10.4 mg/dL 8.6 - 10. 4 mg/dL [facility] Chloride [Moles/Vol] 107 mmol/L 98 - 10 7 mmol/L [facility] CO2 [Moles/Vol] 25 mmol/L 20 - 31 mmol/L [facility] Creatinine [Mass/Vol] 0.72 mg/dL 0.50 - 0.90 mg/dL [facility] Free PSA/Total PSA [Mass fraction] 6.6 g/dL 6.4 - 8.3 g/dL [facility] GFR >60 >60 mL/min [facility] GFR Non- >60 >60 mL/min [facility] Glucose [Mass/Vol] 76 mg/dL 70 - 99 mg/dL [facility] Interpretation and review of laboratory results Abnormal [facility] Potassium [Moles/Vol] 3.9 mmol/L 3.7 - 5.3 mmol/L [facility] Sodium [Moles/Vol] 142 mmol/L 135 - 144 mmol/L [facility] Urea nitrogen (BldV) [Mass/Vol] 12 mg/dL 6 - 20 mg/dL [facility] Urea nitrogen/Creatinine (Bld) [Mass ratio] 17 [facility] HCG Qualitative, Serumon hCG Qual Negative NEGATIVE [facility] Comment on above: Specimens with hCG l evels near the threshold of the test (25 mIU/mL) may give a negative or indeterminate result. In such cases, another test should be performed with a new specimen in 48-72 hours. If early is suspected clinically in this setting, correlation with quantitative serum b-hCG level is suggested. [facility] has confirmed the use of plasma for this test. This has not been cleared or approved by the U.S. Food and Drug Administration. The FDA has determined that such clearance is not necessary. [facility] HIV Screenon 11-09-2021 HIV Ag/Ab Non-Reactive NONREACTIVE [facility] Comment on above: No laboratory eviden ce of HIV infection. If acute HIV infection is suspected, consider testing for HIV-1 RNA. [facility] Hepatitis Panel, Acuteon HAV IgM IA Qn (S) Non-Reactive NONREACTIVE [facility] Hep B Core Ab, IgM Non-Reactive NONREACTIVE [facility] Hepatitis B Surface Ag Non-Reactive NONREACTIVE [facility] Hepatitis C Ab Reactive Abnormal NONREACTIVE [facility] Comment on above: The hepatitis C procedure [...] Interpretation and review of laboratory results Abnormal [facility] Laboratory - Chemistry and C hemistry - challengeon 11-09-2021 GFR/1.73 sq M.predicted MDRD (S/P/Bld) [Vol rate/Area] [facility] Comment on above: Average GFR for 20-2 9 years old: 116 mL/min/1.73sq m Chronic Kidney Disease: <60 mL/min/1.73sq m Kidney failure: <15 mL/min/1.73sq m eGFR calculated using average adult body mass. Additional eGFR calculator available at: http://www.[facility]/multiple_crcl_2012.htm Stage 1: Some kidney damage normal GFR Stage 2: Mild kidney damage GFR 60-89 Stage 3: Moderate kidney damage GFR 30-59 Stage 4: Severe kidney damage GFR 15-29 Stage 5: Severe kidney damage GFR <15 ESRD - chronic treatment by dialysis or transplant Microscopic Urinalysison - [facility] Bacteria, UA 4+ Abnormal None [facility] Epithelial Cells UA 2 TO 5 [facility] Interpretation and review of laboratory results Abnormal [facility] Mucus, UA 1+ Abnormal None [facility] RBC, UA 0 TO 2 [facility] WBC, UA 20 TO 50 [facility] Urinalysis with Reflex to Cu ltureon 10-27-2021 Bilirubin Urine SMALL Abnormal NEGATIVE [facility] Color, UA Yellow Yellow [facility] Glucose, Ur Negative NEGATIVE [facility] Interpretation and review of laboratory results Abnormal [facility] Ketones Ql (U) Negative NEGATIVE [facility] Leukocyte esterase Test strip Ql (U) MODERATE Abnormal NEGATIVE [facility] Nitrite, Urine Negative NEGATIVE [facility] pH, UA 6.5 [facility] Protein, UA TRACE Abnormal NEGATIVE [facility] Specific Tynan, UA 1.025 High [facility] Turbidity UA SLIGHTLY CLOUDY Abnormal Clear [facility] Urine Hgb Negative NEGATIVE [facility] Urobilinogen, Urine Normal Normal [facility] Microscopic Urinalysison - [facility] Bacteria, UA 1+ Abnormal None [facility] Epithelial Cells UA 5 TO 10 [facility] Interpretation and review of laboratory results Abnormal [facility] RBC, UA 0 TO 2 [facility] WBC, UA 5 TO 10 [facility]ALTH [facility] Urinalysis with Reflex to Cu ltureon 10-07-2021 Bilirubin Urine Negative NEGATIVE [facility] Color, UA Yellow Yellow [facility] Glucose, Ur Negative NEGATIVE [facility] Interpretation and review of laboratory results Abnormal [facility] Ketones Ql (U) Negative NEGATIVE [facility] Leukocyte esterase Test strip Ql (U) MODERATE Abnormal NEGATIVE [facility] Nitrite, Urine Negative NEGATIVE [facility] pH, UA 5.5 [facility] Protein, UA Negative NEGATIVE [facility] Specific Tynan, UA 1.025 High [facility] Turbidity UA Clear Clear [facility] Urine Hgb Negative NEGATIVE [facility] Urobilinogen, Urine Normal Normal [facility] SEROLOGYOrdered By: Suly Raman on 07-24-2021 HCG.beta subunit (U) [Moles/Vol] Negative Normal [facility] [place] [facility] Tobacco Screening.on 022 Adult depression screening assessment Yes [facility] [place] 250 DO Work Phone: Tobacco use status CPHS a) Yes [facility]Shantanu [place] 250 DO Work Phone: Tobacco Screening. Yes [facility] 250 DO Work Phone: Tobacco Screening. 3-Nearly every day [facility] [place] 250 DO Work Phone: Tobacco Screening. 2-More than half the days [facility] Ty[place] 250 DO Work Phone: Tobacco Screening. 0-Not at all [facility] [place] 250 DO Work Phone: Tobacco Screening. Very Difficult [facility] 250 DO Work Phone: XR [...] by: Janine DURON Date: 2021-07-04 02:09 Normal [facility] Vital Signs Date Time Vital Sign Value Performing Clinician Facility 07-06-2023 15:10-0500 Body temperature 98.42 [degF] Adolfo Hernandez [facility] 07-06-2023 15:10-0500 Diastolic blood pressure 69 mm[Hg] Adolfo Hernandez [facility] 07-06-2023 15:10-0500 Heart rate 102 /min Adolfo Hernandez [facility] 07-06-2023 15:10-0500 Respiratory rate 16 /min Adolfo Hernandez [facility] 07-06-2023 15:10-0500 SaO2% (BldA) [Mass fraction] 100 % Adolfo Hernandez [facility] 07-06-2023 15:10-0500 Systolic blood pressure 100 mm[Hg] Adolfo Hernandez [facility] 07-24-2021 17:25-0400 Body temperature 96.98 [degF] Zev Boubacar [facility] 07-24-2021 17:25-0400 Heart rate 66 /min Zev Hamlin [facility] 03-25-2022 17:25-0400 Respiratory rate 110 /min Zev Hamlin [facility] 07-24-2021 17:25-0400 SaO2% (BldA) [Mass fraction] 100 % Zev Hamlin [facility] 07-24-2021 17:25-0400 Systolic blood pressure 68 mm[Hg] Zev Hamlin [facility] 07-24-2021 17:20-0400 Body temperature 97.7 [degF] Zev Hamlin [facility] 07-24-2021 17:20-0400 Diastolic blood pressure 63 mm[Hg] Zev Hamlin [facility] 07-24-2021 17:20-0400 Heart rate 65 /min Zev Hamlin [facility] 07-24-2021 17:20-0400 Respiratory rate 11 /min Zev Hamlin [facility] 07-24-2021 17:20-0400 SaO2% (BldA) [Mass fraction] 100 % Zev Hamlin [facility] 07-24-2021 17:20-0400 Systolic blood pressure 106 mm[Hg] Zev Hamlin [facility] 07-24-2021 17:05-0400 Diastolic blood pressure 70 mm[Hg] Zev Hamlin [facility] 07-24-2021 17:05-0400 Heart rate 78 /min Zev Hamlin [facility] 07-24-2021 17:05-0400 Respiratory rate 11 /min Zev Hamlin [facility] 07-24-2021 17:05-0400 SaO2% (BldA) [Mass fraction] 100 % Zev Hamlin [facility] 07-24-2021 17:05-0400 Systolic blood pressure 109 mm[Hg] Zev Hamlin [facility] 07-24-2021 17:00-0400 Diastolic blood pressure 54 mm[Hg] Zev Hamlin [facility] 07-24-2021 16:53-0400 Body temperature 97.52 [degF] Zev Hamlin [facility] 07-24-2021 11:18-0400 Blood Pressure Location Zev Hamlin [facility] 07-24-2021 11:18-0400 BP/Pulse Patient Position Zev Hamlin [facility] 07-24-2021 11:18-0400 Mean blood pressure 78 mm[Hg] Zev Hamlin [facility] 07-24-2021 11:17-0400 Blood Pressure Location Zev Hamlin [facility] 07-24-2021 11:17-0400 Body temperature 98.24 [degF] Zev Hamlin [facility] 07-24-2021 11:17-0400 BP/Pulse Patient Position Zev Hamlin [facility] 07-24-2021 11:17-0400 Mean blood pressure 84 mm[Hg] Zev Hamlin [facility] 07-24-2021 11:17-0400 Respiratory rate 16 /min Zev Hamlin [facility] 07-24-2021 11:17-0400 Heart rate 72 /min Zev Hamlin [facility] 07-09-2021 09:07-0500 Diastolic blood pressure 62 mm[Hg] No PCP None [facility] 250 DO Work Phone: 07-09-2021 09:07-0500 Systolic blood pressure 102 mm[Hg] No PCP None [facility] 250 DO Work Phone: 07-09-2021 09:01-0500 Body height 160.02 cm No PCP None [facility] Kelsey[facility] 250 DO Work Phone: 07-09-2021 09:01-0500 Body mass index (BMI) [Ratio] 27.1 kg/m2 No PCP None [facility] 250 DO Work Phone: 07-09-2021 09:01-0500 Body surface area Derived from formula 1.73 m2 No PCP None [facility] 250 DO Work Phone: 07-09-2021 09:01-0500 Body weight 69.4 kg No PCP None [facility] 250 DO Work Phone: 07-09-2021 09:01-0500 Diastolic blood pressure 62 mm[Hg] No PCP None [facility] 250 DO Work Phone: 07-09-2021 09:01-0500 Heart rate 59 /min No PCP None [facility] 250 DO Work Phone: 07-09-2021 09:01-0500 Systolic blood pressure 104 mm[Hg] No PCP None [facility] Connor 250 DO Work Phone: 07-09-2021 09:01-0500 18 1 No PCP None [facility] 250 DO Work Phone: Comment on above: PHQ-9 TS Encounters Encounter Date Encounter Type Care Provider Facility Start: 09-08-2023 End: 09-09-2023 ambulatory NO PCP NO PCP [facility] Start: 09-08-2023 Encounter for genera l adult medical examination without abnormal findings NO NO PCP [facility] Start: 08-19-2023 End: 08-19-2023 Emergency department patient visit NO PCP NO PCP [facility] Start: 07-06-2023 End: 07-06-2023 Emergency department patient visit Adolfo Hernandez [place] Start: 07-06-2023 End: 07-06-2023 Emergency department patient visit Adolfo Hernandez [facility] Start: 06-17-2023 End: 06-18-2023 ambulatory PB [facility] Start: 02-16-2023 ambulatory [facility] Start: 01-19-2023 ambulatory [facility] Start: 01-06-2023 ambulatory [facility] Start: 12-10-2022 End: 12-11-2022 ambulatory [facility] Start: 11-04-2022 ambulatory [facility] Start: 09-22-2022 End: 09-23-2022 ambulatory [facility]ANICE [facility] Start: 09-13-2022 End: 09-14-2022 ambulatory DEZ JACKIE [facility] Start: 09-13-2022 End: 09-13-2022 Subsequent hospital visit by physician [facility] Start: 09-10-2022 End: 09-11-2022 ambulatory DEZ JACKIE [facility] Start: 09-10-2022 End: 09-10-2022 Subsequent hospital visit by physician [facility] Start: 04-19-2022 End: 04-20-2022 ambulatory DE[facility]SHANICE [facility] Start: 11-09-2021 End: 11-09-2021 Subsequent hospital visit by physician [facility] Start: 10-27-2021 End: 10-27-2021 Subsequent hospital visit by physician [facility] Start: 10-06-2021 End: 10-06-2021 Subsequent hospital visit by physician [facility] Start: 07-24-2021 End: 07-24-2021 Admission to same day surgery center Zev Hamlin [facility] Start: 07-09-2021 Office consultation new/estab patient 60 min No PCP None [facility] 250 DO Work Phone: Start: 07-04-2021 End: 07-04-[address] RADHA MOE Facility: Start: 06-29-2021 End: 10-15-2021 Recurring Zev Hamlin [facility]: Procedures Date Procedure Procedure Detail Performing Clinician Start: 09-13-2022 Antibody hiv-1&hiv-2 single result Dez Jackie DECORATOR INSPECTOR - EXHIBITION DESIGNER Work Phone: Start: 09-13-2022 Comprehensive metabo lic panel Dez Jackie DECORATOR INSPECTOR - EXHIBITION DESIGNER Work Phone: Start: 11-09-2021 Antibody hiv-1&hiv-2 single result Dez Jackie DECORATOR INSPECTOR - EXHIBITION DESIGNER Work Phone: Start: 11-09-2021 Comprehensive metabo lic panel Dez Jackie DECORATOR INSPECTOR - EXHIBITION DESIGNER Work Phone: Start: 10-27-2021 Urinalysis microscop ic only Dez Jackie DECORATOR INSPECTOR - EXHIBITION DESIGNER Work Phone: Start: 10-27-2021 Urnls dip stick/tabl et rgnt auto w/o microscopy Dez Jackie DECORATOR INSPECTOR - EXHIBITION DESIGNER Work Phone: Start: 10-06-2021 Urinalysis microscop ic only Dez Jackie DECORATOR INSPECTOR - EXHIBITION DESIGNER Work Phone: Start: 10-06-2021 Urnls dip stick/tabl et rgnt auto w/o microscopy Dez Jackie DECORATOR INSPECTOR - EXHIBITION DESIGNER Work Phone: section No PCP None section [...] Influenza vaccination Flu vacc ine (Season Ended) [facility] [employer] Start: 01-06-2022 Screening for malign ant neoplasm of cervix [facility] Start: 12-31-2021 Influenza vaccination B [facility] [employer] Start: 11-25-2021 FUV, Provider: Ruddy Garcia, Status: Pen, Time: 3:00 PM FUV, Provider: Ruddy Garcia, Status: Pen, Time: 3:00 PM [facility] [email or web address] DO Work Phone: Start: 07-15-2021 ECHO, Provider: CRISTAL MCCURDY [facility] ULTRASOUND 01,[id number], Status: Pen, Time: 11:30 AM ECHO, Provider: PRATIMA [facility] ULTRASOUND 01,[id number], Status: Pen, Time: 11:30 AM [facility] [employer] 250 DO Work Phone: Start: 07-15-2021 STRESS NUC, Provider : PRATIMA [facility] NUCLEAR 01,[id number], Status: Pen, Time: 11:30 AM STRESS NUC, Provider: PRATIMA [facility] NUCLEAR 01,[id number], Status: Pen, Time: 11:30 AM [facility] [employer] 250 DO Work Phone: Start: 01-06-2013 Screening for malign ant neoplasm of cervix Pap [facility] Start: 01-06-2011 DTaP/Tdap/Td vaccine (1 - Tdap) DTaP/Tdap/Td vaccine (1 - Tdap) [facility] [employer] Start: 01-06-2010 Hepatitis C screening Hepatitis C sc reen [facility] Start: 2004 Depression Screen Depression Screen [facility] Start: 01-06-1998 Pneumococcal 0-64 ye ars Vaccine (1 - PCV) Pneumococcal 0-64 years Vaccine (1 - PCV) [employer] Start: 01-06-1997 COVID-19 Vaccine (1) COVID-19 Vaccin e (1) [employer] Start: 01-06-1993 Varicella vaccine (1 of 2 - 2-dose childhood series) Varicella vaccine (1 of 2 - 2-dose childhood series) [employer] Start: 1992 COVID-19 Vaccine (#1) COVID-19 Vacci ne (#1) [employer] End: 10-27-2021 Culture, Urine [employer] Work Phone: Comment on above: Once for 1 Occurrenc es starting 10/27/2021 until 10/27/2021 End: 09-13-2022 Hepatitis C RNA, quantitative, PCR [employer] Work Phone: Comment on above: Once for 1 Occurrenc es starting 09/13/2022 until 09/13/2022 Immunizations Immunization Date Immunization Notes Care Provider Seun marc 05-14-2012 influenza, seasonal, injectable Zev Boubacar [facility] Comment on above: Early/Late Reason: P atient Not Available/Off Unit 05-14-2012 measles, mumps and rubella virus vaccine Zve Boubacar [facility] Comment on above: Early/Late Reason: P atient Not Available/Off Unit Payers Date Payer Category Payer Unknown [id number] 2019 Unknown [id number] 1992 Unknown [id number] 1992 Unknown [id number] 1992 Unknown [id number] 1992 Unknown [id number] 1992 Unknown [id number] 1992 Unknown [id number] 1992 Unknown [id number] 1992 Unknown [id number] [id number] 1992 Unknown [id number] [id number] 1992 Unknown [id number] [id number] 1992 Unknown [id number] 1992 Unknown [id number] [id number] 1992 Unknown [id number] [id number] 1992 Unknown [id number] 1959 Unknown [id number] Unknown [facility] [employer] Social History Date Type Detail Facility Start: 08-14-2013 End: 10-13-2017 Consumes alcohol occasionally Consumes alcohol occasionally -[facility] [id number] DO Work Phone: Comment on above: <1PPD; Start: 06-25-2021 Tobacco smoking status Light t obacco smoker (finding) [facility] Sex Assigned At Female [facility] Start: 08-14-2013 End: 10-13-2017 Tobacco smoking status MDIS Smokes tobacco daily [facility] [employer] Work Phone: History of tobacco use Cigarette Smoker B ON [facility] Phone: Start: 08-14-2013 End: 10-13-2017 Tobacco use and exposure Smokeless tobacco non-user BON [facility] Phone: Start: 09-11-2018 Alcohol intake Current non-dr forging die sinker of alcohol (finding) [facility] Phone: Start: 1990 Sex Assigned At Not on file B ON [facility] Phone: Functional Status Date Assessment Result Facility 07-06-2023 Functional Status N/A [facility] 07-09-2021 PHQ-9 [id number] Moder ately Severe (15-19) [facility] 250 DO Work Phone: Clinical Notes 07-24-2021 [...] Locations R1: This test was performed at: [facility], [address] [place] [address], [facility] , , [facility] Comment on above: Performed By: #### [id number] #### [facility] [address] [place] [address] 07-06-2023 Hospital Discharge instructions Patient Education 07/06/2023 15:38:59 Viral Respiratory Infection, Tcyy-Uy-Myin Viral Respiratory Infection A viral respiratory infection [...] at home: Managing pain and congestion Take peal-quk-mgnrxyg and prescription medicines only as told by [...] cannot use soap and water, use hand banquet attendant. ?Cover your mouth when you cough. Cover [...] provider. Document Revised: 07/23/2021 Document Reviewed: 07/23/2021 [employer] Patient Education 2022 [employer]. Follow Up Care 07/06/2023 15:07:50 With:Boubacar MULLINS, Zev Webber, ORS Address: [address] [place] [id number]- When:2 to 4 days With:[facility] Dept: [phone] Address:Unknown When:07/09/2023 [facility] 07-06-2023 Evaluation + Plan note Diagnostic Tests PendingChlam/GC/Trich,BETZAIDA 07/06/23Urine Culture 07/06/23 [facility] 07-24-2021 Hospital Discharge instructions Patient Education 07/24/2021 17:19:35 [employer] [employer] - Post D&C, Hysteroscopy, LEEP or Essure/Laparoscopy [...] Care 06/01/2021 16:23:25 With:Zev Hamlin Address: [address], [place] [id number]- Business (1) When:2 weeks Comments:Call for any problems. [facility] Chief complaint Narrative - Reported DOUGLAS MYLES is being seen for a consultation for. POC abnormal ECG; Dr. Hamlin [facility] 250 DO Work Phone: Chief complaint Narrative - Reported DOUGLAS MYLES is being seen for a consultation for. POC abnormal ECG; Dr. Hamlin [facility] Work Phone: Evaluation + Plan note No data available for this section [facility] History of Present illness Narrative Patient is seen for preoperative risk assessment. She apparently presented for tubal ligation and procedure was canceled because of abnormal EKG.She has been in and out of the emergency room multiple times. Recently she was in [place] at the [facility] and they also noted abnormal EKG [...] correspond with the surgeon in this regard. [facility] 250 DO Work Phone: History of Present illness Narrative Patient is seen for preoperative risk assessment. She apparently presented for tubal ligation and procedure was canceled because of abnormal EKG.She has been in and out of the emergency room multiple times. Recently she was in [place] at [facility] and they also noted abnormal EKG and [...] correspond with the surgeon in this regard. [facility] Work Phone: Hospital Discharge instructions No data available for this section [facility] Progress note No data available for this section [facility] Summary Purpose Family History No Family History Records Found Advance Directives No Advanced Directives Records FoundDocuments on File Type Date Recorded Patient Marketing Specialist Expl anation ACP-Advance Directive ACP-Power of Operations Architect Latest Code Status on File Code Status Date Activated Date Inactivated Comments Full Code 03/06/2018 12:17 AM 03/06/2018 4:09 AM Latest Code Status on File Code Status Date Activated Date Inactivated Comments Full Code 03/06/2018 12:17 AM 03/06/2018 4:09 AM Additional Source Comments INFORMATION SOURCE (unrecogn ized section and content) DATE CREATED AUTHOR 07/14/2021 [facility] DATE CREATED AUTHOR AUTHOR'S ORGANIZ ATION 12/12/2022 [facility] DATE CREATED AUTHOR AUTHOR'S ORGANIZ ATION 02/17/2023 [facility] DATE CREATED AUTHOR AUTHOR'S ORGANIZ ATION 07/24/2023 [facility] DATE CREATED AUTHOR AUTHOR'S ORGANIZ ATION 09/13/2023 [facility] FOR RECORDS PERTAINING TO PATIENTS WHO ARE [...] BE BASED ON THE PRIMARY CLINICAL RECORDS. [facility] [employer] [facility]. provides no warranty or guarantee of the accuracy or completeness of information in this document.
--- NOTE | 2023-10-23 17:16 | XR_ITS ---
The [address] [address] Patient Name: SANGEETA MYLES MRN: [id number] date: 1990 Sex: F Assigned Patient Location: ER Current Patient Location: ED.MAIN Accession/Order Number: [id number] Exam Date: 10/23/2023 17:55 Report Date: 10/23/2023 18:55 At the request of: EDWAR JONES Procedure: XR acute abdomen series EXAM: XR acute abdomen series HISTORY: Abdominal pain COMPARISON: Paraspinal soft tissues included on CT thoracic and lumbar spine 05/22/2023. Chest x-ray 01/27/2023. TECHNIQUE: Upright PA chest, supine and upright abdomen. FINDINGS: Chest x-ray demonstrates clear lungs and normal heart size. No pleural effusion. Abdominal films demonstrate mild increased bowel gas throughout the GI tract without significant distention. Moderate gas in the stomach. Air-fluid levels noted on the upright view also nonspecific. Gas pattern not suspicious for obstruction. A few phleboliths in the pelvis. No abdominal calcification XR/XR acute abdomen series IMPRESSION: 1. Chest x-ray negative without acute disease. 2. Nonspecific gas pattern with mildly increased small bowel gas and air-fluid levels but no significant distention or evidence of ileus or obstruction. Electronically authenticated by: SHUBHAM TOVAR Date: 10/23/2023 18:55
--- NOTE | 2023-10-23 17:27 | ED_ITS ---
HPI - Abdominal Pain General Chief Complaint: Abdominal Pain Stated Complaint: Blood in Stool Time Seen by Provider: 10/23/23 17:14 Source: patient Mode of arrival: walk-in History of Present Illness HPI narrative: Patient is here for evaluation of possible GI bleeding. She has not seen any black tarry stool, she says she sees bright red blood off and on for several days. She also does have a history of anemia diagnosed here but never received any follow-up. Also approximately 7 years ago that she had a history of hepatitis C and was in [facility] for approximately 4 weeks with hepatitis. She has quit using intravenous drugs recently. She has not on any blood thinners. Previous ER records indicate that she had pancytopenia here. She says she just feels terrible. Does not have any shortness of breath or chest pain just increasing fatigability. She says that she was treated with oral agents for hepatitis C but has not seen GI or hepatology recently. Related Data Home Medications ?Medication ?Instructions ?Recorded ?Confirmed bupropion HCl 300 mg 24 hr tablet, 300 mg PO DAILY 11/09/22 11/09/22 extended release ibuprofen 800 mg tablet mg 11/09/22 trazodone 100 mg tablet mg 11/09/22 no medications 05/22/23 buprenorphine 12 mg-naloxone 3 mg 1 film buccal DAILY 10/11/23 10/11/23 sublingual film (Suboxone) Previous Rx's ?Medication ?Instructions ?Recorded nystatin 100,000 unit/mL oral 400,000 unit (4 mL) buccal QID 14 10/10/22 suspension days #224 mL sulfamethoxazole 800 1 tab PO BID 5 days #10 tabs 10/10/22 mg-trimethoprim 160 mg tablet (Bactrim DS) ketorolac 10 mg tablet 10 mg PO TID PRN pain #12 tabs 01/17/23 benzonatate 100 mg capsule 100 mg PO TID PRN cough #20 caps 01/27/23 doxycycline hyclate 100 mg capsule 100 mg PO BID 10 days #20 caps 01/27/23 cephalexin 500 mg capsule 500 mg PO TID 10 days #30 caps 10/11/23 Allergies Allergy/AdvReac Type Severity Reaction Status Date / Time No Known Drug Allergies Allergy Verified 10/11/23 17:22 PFSH PFSH Social History Smoking status: Current every day smoker Exam Narrative Exam Narrative: Patient is here with her mother and male roadway technician. She appears both acute and chronically ill. She is awake alert [place] x 3 afebrile no respiratory distress. She denies any chest pain. On HEENT examination she does have perhaps mild scleral icterus and some pallor as well. Oral cavity is unremarkable brain lesions or soft tissue swelling. Her lungs are clear with no wheeze rales or rhonchi heart sounds are normal she has no tachycardia. Abdomen is benign with no guarding rebound rigidity or peritoneal findings. She does have mild tenderness in the right upper quadrant. Rectal examination showed small external hemorrhoidal tag no blood on the exam finger stool was brown. Extremities essentially normal with some mild jaundice and pallor. Neurologically she is intact she is pleasant fully cooperative appreciative of care. Constitutional Vital Signs, click to edit/add: Last Vital Signs Temp 98.5 F 10/23/23 16:31 Pulse 80 10/23/23 16:31 Resp 18 10/23/23 16:31 BP 105/58 10/23/23 16:31 Pulse Ox 99 10/23/23 16:31 O2 Del Method Room Air 10/23/23 16:31 Course Vital Signs Vital signs: Vital Signs Temperature 98.5 F 10/23/23 16:31 Pulse Rate 80 10/23/23 16:31 Respiratory Rate 18 10/23/23 16:31 Blood Pressure 105/58 10/23/23 16:31 Pulse Oximetry 99 10/23/23 16:31 Oxygen Delivery Method Room Air 10/23/23 16:31 Temperature 98.5 F 10/23/23 16:31 Pulse Rate 80 10/23/23 16:31 Respiratory Rate 18 10/23/23 16:31 Blood Pressure 105/58 10/23/23 16:31 Pulse Oximetry 99 10/23/23 16:31 Oxygen Delivery Method Room Air 10/23/23 16:31 MDM - Abdominal Pain MDM Narrative Medical decision making narrative: Patient presents with increasing fatigability and worsening anemia. Has evidence of liver failure with increasing ammonia levels and elevation liver function test and history of hepatitis C. Should benefit from blood transfusion and further evaluation at a facility that is appropriate. This is all explained in detail to her and her family. Will speak to the hospital. 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 Lab Data Labs: Lab Results 10/23/23 Range/Units 17:34 WBC 2.1 L (4.0-11.0) 10^3/uL RBC 1.50 L (4.20-5.40) 10^6/uL Hgb 6.8 L* (12.0-16.0) g/dL Hct 20.0 L* (36.0-48.0) % MCV 133.3 H (81.0-99.0) fL MCH 45.3 H (26.7-34.0) pg MCHC 34.0 (29.9-35.2) g/dL RDW 20.4 H (11.0-15.0) % Plt Count 92 L (150-450) 10^3/uL MPV 11.4 (9.5-13.5) fL Sodium 145 (136-145) mmol/L Potassium 4.1 (3.5-5.1) mmol/L Chloride 109 H (98-107) mmol/L Carbon Dioxide 29.1 (21.0-32.0) mmol/L Anion Gap 11.0 BUN 11.0 (7.0-18.0) mg/dL Creatinine 0.70 (0.55-1.02) mg/dL Est GFR ( Amer) >60 (>=60) Est GFR (Non-Af Amer) >60 (>=60) BUN/Creatinine Ratio 15.7 Glucose 93 (74-106) mg/dL Lactate 0.7 (0.4-2.0) mmol/L Calcium 9.6 (8.5-10.1) mg/dL Total Bilirubin 2.7 H (0.2-1.0) mg/dL AST 117 H (15-37) U/L ALT 85 H (14-59) U/L Alkaline Phosphatase 90 (46-116) U/L Ammonia 43 H* (11-32) umol/L Total Protein 6.0 L (6.4-8.2) g/dL Albumin 3.5 (3.4-5.0) g/dL Globulin 2.5 g/dL Albumin/Globulin Ratio 1.4 Lipase 20.0 (16.0-77.0) U/L Discharge Plan Discharge Chief Complaint: Abdominal Pain Clinical Impression: Anemia, Acute liver failure Patient Disposition: Admitted as Observation Time of Disposition Decision: 18:41 Prescriptions / Home Meds: No Action nystatin 100,000 unit/mL suspension 400,000 unit buccal QID 14 Days Qty: 224 0RF Rx Instructions: administer 1/2 of dose in each side of the mouth sulfamethoxazole-trimethoprim [Bactrim DS] 800-160 mg tablet 1 tab PO BID 5 Days Qty: 10 0RF bupropion HCl 300 mg tablet extended release 24 hr 300 mg PO DAILY ibuprofen 800 mg tablet trazodone 100 mg tablet ketorolac 10 mg tablet 10 mg PO TID PRN (Reason: pain) Qty: 12 0RF no medications buprenorphine-naloxone [Suboxone] 12-3 mg film 1 film buccal DAILY cephalexin 500 mg capsule 500 mg PO TID 10 Days Qty: 30 0RF doxycycline hyclate 100 mg capsule 100 mg PO BID 10 Days Qty: 20 0RF benzonatate 100 mg capsule 100 mg PO TID PRN (Reason: cough) Qty: 20 0RF Print Language: [place] Referrals: Physician,Non-Staff, MD [Primary Care Provider] - 1 week
[2023-10-23 17:56] LABS: Mean Corpuscular Hemoglobin 45.3 pg (26.7-34.0); Mean Corpuscular Volume 133.3 fL (81.0-99.0); Mean Platelet Volume 11.4 fL (9.5-13.5); Platelet Count 92 10^3/uL (150-450); Red Cell Distribution Width 20.4 % (11.0-15.0); White Blood Count 2.1 10^3/uL (4.0-11.0)
[2023-10-23 18:04] LABS: Lactate/Lactic Acid 0.7 mmol/L (0.4-2.0)
[2023-10-23 18:11] LABS: Alanine Aminotransferase 85 U/L (14-59); Albumin Globulin Ratio 1.4; Albumin Level 3.5 g/dL (3.4-5.0); Alkaline Phosphatase 90 U/L (46-116); Aspartate Amino Transferase 117 U/L (15-37); BUN Creatinine Ratio 15.7; Bilirubin Total 2.7 mg/dL (0.2-1.0); Calcium 9.6 mg/dL (8.5-10.1); Carbon Dioxide 29.1 mmol/L (21.0-32.0); Chloride 109 mmol/L (98-107); Estimated GFR (African America >60 (>=60); Estimated GFR (Non-African Ame >60 (>=60); Globulin 2.5 g/dL; Glucose 93 mg/dL (74-106); Potassium 4.1 mmol/L (3.5-5.1); Sodium 145 mmol/L (136-145)
[2023-10-23 18:12] LABS: Hemoglobin 6.8 g/dL (12.0-16.0)
[2023-10-23 18:19] LABS: Ammonia 43 umol/L (11-32)
[2023-10-23 18:31] LABS: Segmented Neut Absolute Manual 0.94 10^3/uL (1.4-6.5)
[2023-10-23 18:35] LABS: Macrocytosis 2+
[2023-10-23 18:59] LABS: Internal Control Within Normal Limits; Occult Blood Negative
[2023-10-23 19:23] LABS: HCG Qualitative Urine* NEGATIVE (NEGATIVE); Internal Control Within Normal Limits
--- OUTSIDE RECORDS SUMMARY | 2023-10-23 19:35 | XMS_ITS | CCD ---
Author Organization [facility] ion Partnership [employer] [facility] Care Team Providers Care Video Editor Name Role Phone None, No PCP Unavailable [...] Referring Unavaila PB [employer] Referring Unavailable SERVICES, [facility] Primary Care Unava ilable Medications Current Medications Medication Drug Class(es) Dates Sig (Normalized) Sig (Original) acetaminophen 325 mg / oxyCODONE hydrochloride 5 mg oral tablet (1 source) Opioid Agonist Start: 07-24-2021 End: 07-26-2021 Percocet 325 mg-5 mg Tab 1 tab(s), Oral, q6hr for pain for 2 day(s), 7 tab(s), Refill(s) 0, [facility]/pharmacy #[id number], 161, cm, 06/25/21 13:03:00 [...] by mouth 2 times daily 0 Active Nqpgxwhq-Bzf-Nl-FA ( VITAMINS PO) (5 sources) Dbxklmyk-Rgd-Yn-FA ( VITAMINS PO) Take by mouth 0 [...] (GLYCO-HGB)on 2023 Glucose [Mass/Vol] 117 mg/dL Normal [facility] Comment on above: Performed By: #### A #### [facility] ([id number]) [address] [place] [address], [address] [place] [address] #### 30008-1 #### [facility] ([id number]) [address] [place] [address], [place] [address] HbA1c (Bld) [Mass fraction] 5.7 % High 4.4-5.6 [facility] Comment on above: Result Comment: NOTE ADA Guidelines Result HgbA1c Normal : less than 5.7 % Prediabetes : 5.7 % to 6.4 % Diabetes : > 6.4 % Use with caution in patients with abnormal hemoglobin variants as the half-life of red blood cells and in vivo glycation rates are affected. Performed By: #### A HP #### [facility] ([id number]) Formerly [facility] [facility], [address] [place] [address] #### 57674-4 #### [facility] ([id number]) [address] [place] [address] 39086 Lipid 1996 panelon 4 Cholesterol [Mass/Vol] 99 mg/dL Low 150-200 Pr [facility] Comment on above: Performed By: #### A HP #### [facility] ([id number]) [address] [place] [address], [address] [place] [address] #### 71952-3 #### [facility] ([id number]) [address] [place] [address] 31707 Cholesterol in HDL [Mass/Vol] 29 mg/dL Low >39 [facility] Comment on above: Result Comment: HDL <40 mg/dL - High Risk HDL > or = 40mg/dL- Desirable HDL >60 mg/dL - Negative Risk Performed By: #### A HP #### [facility] ([id number]) [address] [place] [address], [address] [place] [address] #### 42592-3 #### [facility] ([id number]) [address] [place] [address] 26764 Cholesterol in LDL [Mass/Vol] 44 mg/dL Normal <130 [facility] Comment on above: Result Comment: LDL <100 mg/dL - Desirable LDL >160 mg/dL - High Risk Performed By: #### A HP #### [facility] ([id number]) [address], [address] [place] [address] #### 07910-2 #### [facility] ([id number]) [address] [place] [address] 01921 Cholesterol in VLDL [Mass/Vol] 26 mg/dL Normal 0-30 [facility] Comment on above: Performed By: #### A HP #### [facility] ([id number]) [address] [facility], [address] [place] [address] #### 28613-8 #### [facility] ([id number]) [address] [place] [address] 72852 CHOLESTEROL:HDL 3.4 Normal 1.0-5.0 [facility] Comment on above: Performed By: #### A HP #### [facility] ([id number]) [address] [facility], [address] [place] [address] #### 11315-6 #### [facility] ([id number]) [address] [place] [address] 34750 Triglyceride [Mass/Vol] 131 mg/dL Normal 27-150 [facility] Comment on above: Performed By: #### A HP #### [facility] ([id number]) [address], [address] [place] [address] #### 87379-3 #### [facility] ([id number]) [address] [place] [address] 45347 Reference Lab Test IDon 05-0 VIT D 1 25 DIHYDROXY See Below Normal [facility] Comment on above: Result Comment: NOTE TEST RESULT FLAG UNIT REF.RANGE ------- Vit D,1,25 Dihydroxy 59.9 pg/mL 19.9-79.3 Test Performed By: [facility] [address] [place] [address] Type Casting Machine Operator: Krishna Mehta III #[id number] Performed By: #### A HP #### [facility] ([id number]) [address] [place] [address], [address] [place] [address] #### 46887-7 #### [facility] ([id number]) [address] [place] [address] 41241 TSH WITH REFLEXon 09-08-2023 TSH 1.36 uIU/mL Normal 0.49-4.67 [facility] Comment on above: Performed By: #### A HP #### [facility] ([id number]) [address] [place] [address], [address] [place] [address] #### 51236-2 #### [facility] ([id number]) [address] [place] [address] 60633 CBC AND AUTO DIFFon 08-19-19 24 Anisocytosis Ql (Bld) 2+ Abnormal NONE [facility] Comment on above: Performed By: #### C BRUCE, 3040-3, CBCA, #### [facility] ([id number]) [address] [place] [address] 12650 Erythrocyte distribution width (RBC) [Ratio] 23.1 % High 11.5-15.0 [facility] Comment on above: Performed By: #### C BRUCE, 3040-3, CBCA, #### [facility] ([id number]) [address] [place] [address] 65165 Hematocrit (Bld) [Volume fraction] 26.3 % Low 35-47 [facility] Comment on above: Performed By: #### C BRUCE, 3039-07, CBCA, 1987-08, #### [facility] ([id number]) [address] [place] [address] 22997 Hemoglobin (Bld) [Mass/Vol] 9.3 g/dL Low 11.7-15.5 [facility] Comment on above: Performed By: #### C BRUCE, 3039-07, CBCA, 1987-08, #### [facility] ([id number]) [address] [place] [address] 33169 Lymphocytes (Bld) [#/Vol] 1.0 10*3/uL Normal 1.0-3.5 [facility] Comment on above: Performed By: #### Ethan BARRERA, 3039-07, CBCA, 1987-08, #### [facility] ([id number]) [address] [place] [address] 71278 Lymphocytes/100 WBC (Bld) 48.0 % Normal [facility] Comment on above: Performed By: #### Ethan BARRERA, 3039-07, CBCA, #### [facility] ([id number]) [address] [place] [address] 29530 MCH (RBC) [Entitic mass] 42.6 pg High 27-34 [facility] Comment on above: Performed By: #### C BRUCE, 3039-07, CBCA, #### [facility] ([id number]) [address] [place] [address] 94401 MCHC (RBC) [Mass/Vol] 35.5 g/dL Normal 32-36 [facility] Comment on above: Performed By: #### C BRUCE, 3039-07, CBCA, -9 #### [facility] ([id number]) [address] [place] [address] 97622 MCV (RBC) [Entitic vol] 120 fL High 80-100 [facility] Comment on above: Performed By: #### C BRUCE, 3039-3, CBCA, 1987-08, #### [facility] ([id number]) [address] [place] [address] 88565 Monocytes (Bld) [#/Vol] 0.2 10*3/uL Normal 0-0.9 [facility] Comment on above: Performed By: #### Ethan BARRERA, 3039-07, CBCA, 1987-08, #### [facility] ([id number]) [address] [place] [address] 67805 Monocytes/100 WBC (Bld) 7.0 % Normal [facility] Comment on above: Performed By: #### Ethan BARRERA, 3039-07, CBCA, 1987-08, #### [facility] ([id number]) [address] [place] [address] 47299 Neutrophils (Bld) [#/Vol] 1.0 10*3/uL Low 1.5-6.6 [facility] Comment on above: Performed By: #### Ethan BARRERA, 3039-07, CBCA, 1987-08, #### [facility] ([id number]) [address] [place] [address] 03299 Platelet mean volume (Bld) [Entitic vol] 8.3 fL Normal 7-12 [facility] Comment on above: Performed By: #### C BRUCE, 3039-3, CBCA, 1987-08, #### [facility] ([id number]) [address] [place] [address] 80424 Platelets (Bld) [#/Vol] 122 10*3/uL Low 150-450 [facility] Comment on above: Performed By: #### C BRUCE, 0-3, CBCA, 1987-08, #### [facility] ([id number]) [address] [place] [address] 40770 RBC COUNT 2.19 X10E12/L Low 3.80-5.20 [facility] Comment on above: Performed By: #### C BRUCE, 0-3, CBCA, 1987-08, #### [facility] ([id number]) [address] [place] [address] 24575 SEG NEUTROPHIL 45.0 % Normal [facility] Comment on above: Performed By: #### C BRUCE, 3039-3, CBCA, 1987-08, #### [facility] ([id number]) [address] [place] [address] 34531 TEARDROP 1+ Abnormal NONE [facility] Comment on above: Performed By: #### Ethan BARRERA, 3039-07, CBCA, 1987-08, #### [facility] ([id number]) [address] [place] [address] 08485 WBC (Bld) [#/Vol] 2.2 10*3/uL Low 4.0-11.0 [facility] Comment on above: Performed By: #### C BRUCE, 0-3, CBCA, 1987-08, #### [facility] ([id number]) [address] [place] [address] 59974 COMPREHENSIVE METABOLIC PANE Elvin 08-19-2023 Albumin [Mass/Vol] 3.3 g/dL Normal 3.2-5.3 [facility] Comment on above: Performed By: #### Ethan BARRERA, 3040-3, CBCA, 1987-08, #### [facility] ([id number]) [address] [place] [address] 14016 ALP [Catalytic activity/Vol] 50 U/L Normal 39-130 [facility] Comment on above: Performed By: #### C BRUCE, 3040-3, CBCA, 1987-08, #### [facility] ([id number]) [address] [place] [address] 30706 ALT [Catalytic activity/Vol] 26 U/L Normal 0-31 [facility] Comment on above: Performed By: #### C BRUCE, 3039-3, CBCA, 1987-08, #### [facility] ([id number]) [address] [place] [address] 83220 Anion gap [Moles/Vol] 5 mmol/L Normal 5-15 [facility] Comment on above: Performed By: #### C BRUCE, 3039-3, CBCA, 1987-08, #### [facility] ([id number]) [address] [place] [address] 05872 AST [Catalytic activity/Vol] 29 U/L Normal 0-41 [facility] Comment on above: Performed By: #### C BRUCE, 0-3, CBCA, 1987-08, #### [facility] ([id number]) [address] [place] [address] 53464 Bilirubin [Mass/Vol] 1.2 mg/dL Normal 0.3-1.2 [facility] Comment on above: Performed By: #### C BRUCE, 0-3, CBCA, 1987-08, #### [facility] ([id number]) [address] [place] [address] 20895 Calcium [Mass/Vol] 9.0 mg/dL Normal 8.5-10.5 [facility] Comment on above: Performed By: #### C BRUCE, 0-3, CBCA, 1987-08, #### [facility] ([id number]) [address] [place] [address] 65222 Chloride [Moles/Vol] 107 mmol/L Normal 98-109 [facility] Comment on above: Performed By: #### C BRUCE, 3040-3, CBCA, 1987-08, #### [facility] ([id number]) [address] [place] [address] 23913 CO2 [Moles/Vol] 27 mmol/L Normal 22-32 [facility] Comment on above: Performed By: #### C BRUCE, 0-3, CBCA, 1987-08, #### [facility] ([id number]) [address] [place] [address] 41499 Creatinine [Mass/Vol] 0.53 mg/dL Normal 0.40-1.00 [facility] Comment on above: Result Comment: METH OD TRACEABLE TO IDMS STANDARD Performed By: #### C BRUCE, 0-3, CBCA, 1987-08, #### [facility] ([id number]) [address] [place] [address] 55891 eGFR (CKD-EPI) NON-RACE DEPENDENT >90 Normal >59 [facility] Comment on above: Result Comment: Reported eGFR is based on the CKD-EPI 2020 equation that does not use a race coefficient. Performed By: #### C BRCUE, 3040-3, CBCA, 1987-08, #### [facility] ([id number]) [address] [place] [address] 86065 Glucose [Mass/Vol] 94 mg/dL Normal 65-99 [facility] Comment on above: Performed By: #### C BRUCE, 3040-3, CBCA, 1987-08, #### [facility] ([id number]) [address] [place] [address] 78990 Potassium [Moles/Vol] 3.2 mmol/L Low 3.5-5.0 [facility] Comment on above: Performed By: #### C BRUCE, 3039-07, CBCA, 1987-08, #### [facility] ([id number]) [address] [place] [address] 68954 Protein [Mass/Vol] 5.5 g/dL Low 6.0-8.0 [facility] Comment on above: Performed By: #### C BRUCE, 3039-07, CBCA, 1987-08, #### [facility] ([id number]) [address] [place] [address] 07131 Sodium [Moles/Vol] 139 mmol/L Normal 134-146 [facility] Comment on above: Performed By: #### Ethan BARRERA, 3039-07, CBCMay, 1987-08, #### [facility] ([id number]) [address] [place] [address] 76783 Urea nitrogen [Mass/Vol] 11 mg/dL Normal 5-23 [facility] Comment on above: Performed By: #### Ethan BARRERA, 3039-07, CBCA, 1987-08, #### [facility] ([id number]) [address] [place] [address] 95228 CRP [Mass/Vol]on 08-19-2023 C REACTIVE PROTEIN 0.9 mg/dL High 0.000-0.744 [facility] Comment on above: Performed By: #### Ethan BARRERA, 3039-07, CBCA, 1987-08, #### [facility] ([id number]) [address] [place] [address] 81211 DRUG SCREEN, URINEon 024 AMPHETAMINE/METHAMP Negative Normal NEG [facility] Comment on above: Result Comment: AMPH /METH screening cut off = 1000 ng/mL Performed By: #### A HP #### [facility] ([id number]) [address] [facility] [address], [address] [place] [address] #### 57922-1 #### [facility] ([id number]) [address] [place] [address] 18309 BARBITURATES Negative Normal NEG [facility] Comment on above: Result Comment: Ana iturates screening cut off value = 200 ng/mL Performed By: #### A HP #### [facility] ([id number]) [address] [address], [address] [place] [address] #### 25080-7 #### [facility] ([id number]) [address] [place] [address] 89836 BENZODIAZEPINES Negative Normal NEG [facility] Comment on above: Result Comment: Jeramie odiazepines screening cut off value = 200 ng/mL Performed By: #### A #### [facility] ([id number]) [address] [facility], [address] [place] [address] #### 81329-6 #### [facility] ([id number]) [address] [place] [address] 06736 CANNABINOIDS Positive Abnormal NEG [facility] Comment on above: Result Comment: Conf irmation available upon request. Cannabinoids/THC screening cut off value = 50 ng/mL Performed By: #### A HP #### [facility] ([id number]) [address] [facility] [address], [address] [place] [address] #### 57998-8 #### [facility] ([id number]) [address] [place] [address] 67250 COCAINE METABOLITE Negative Normal NEG [facility] Comment on above: Result Comment: Coca ine screening cut off value = 300 ng/mL Performed By: #### A HP #### [facility] ([id number]) [address] [place] [address], [address] [place] [address] #### 97632-6 #### [facility] ([id number]) [address] [place] [address] 24573 ECSTASY Negative Normal NEG [facility] Comment on above: Result Comment: Ecst asy screening cut off value = 500 ng/mL This report is intended for use in clinical monitoring or management of patients. Performed By: #### A #### [facility] ([id number]) [address] [place] [address], [email or web address] [address] [place] [address] #### 78391-1 #### [facility] ([id number]) [address] [place] [address] 50675 METHADONE Negative Normal [facility] Comment on above: Result Comment: Meth adone screening cut off value = 300 ng/mL. Performed By: #### A #### [facility] ([id number]) [address] [place] [address], [facility] [[email or web address]] [address] [place] [address] #### 43155-6 #### [facility] ([id number]) [address] [place] [address] 31166 OPIATES Negative Normal [facility] Comment on above: Result Comment: Opia chalo screening cut off value = 300 ng/mL NOTE: This test is used for the detection of codeine, hydrocodone (>1000 ng/mL), morphine and hydromorphone (>900 ng/mL) in urine. Performed By: #### A HP #### [facility] ([id number]) [address] [place] [address], [address] [place] [address] #### 61017-2 #### [facility] ([id number]) [address] [place] [address] 53131 OXYCODONE Negative Normal NEG [facility] Comment on above: Result Comment: Oxyc odone screening cut off value = 300 ng/mL NOTE: This test is used for the detection of oxycodone and oxymorphone in urine. Performed By: #### A HP #### [facility] ([id number]) [address] [place] [address], [address] [place] [address] #### 20349-0 #### [facility] ([id number]) [address] [place] [address] 08550 PHENCYCLIDINE Negative Normal NEG [facility] Comment on above: Result Comment: Phen cyclidine screening cut off value = 25 ng/mL Performed By: #### A HP #### [facility] ([id number]) [address] [place] [address], [address] [place] [address] #### 89161-4 #### [facility] ([id number]) [address] [place] [address] 78202 HCG ( test) Ql (U)o n 08-19-2023 Beta HCG ( test) Ql (U) Negative Normal NEG [facility] Comment on above: Performed By: #### 2 106-3 #### [facility] ([id number]) [address] [place] [address] 78244 LIPASEon 08-19-2023 Lipase [Catalytic activity/Vol] 25 U/L Normal 17-40 [facility] Comment on above: Performed By: #### C BRUCE, 3040-3, CBCA, #### [facility] ([id number]) [address] [place] [address] 56522 MAGNESIUMon 08-19-2023 Magnesium [Mass/Vol] 1.9 mg/dL Normal 1.8-2.6 [facility] Comment on above: Performed By: #### C BRUCE, 3040-3, CBCA, #### [facility] ([id number]) [address] [place] [address] 97317 SARS/FLU A+B/RSV by NAAT/Mol ecularon 08-19-2023 SARS/FLU [...] operators who are performing tests using either [employer] or [employer] systems and is limited to laboratories that [...] repeat. Fact Sheet for Healthcare Providers: https://www.fda.gov/ media/063533/downloa d Fact Sheet for Patients: https://www.fda.gov/ media/866867/downloa d [facility] Comment on above: Performed By: #### C OVFLR #### [facility] ([id number]) [address] [place] [address] [place] [address] URN MACROSCOPIC NURon 2023 BILIRUBIN ERA Small Abnormal NEG [facility] Comment on above: Performed By: #### N UM #### [facility] ([id number]) [address] [place] [address] [place] [address] BLOOD/HGB ERA Trace Abnormal NEG [facility] Comment on above: Performed By: #### N UM #### [facility] ([id number]) [address] [place] [address] [place] [address] GLUCOSE ERA Negative Normal NEG [facility] Comment on above: Performed By: #### N UM #### [facility] ([id number]) [address] [place] [address] [place] [address] KETONES ERA Negative Normal NEG [facility] Comment on above: Performed By: #### N UM #### [facility] ([id number]) [address] [place] [address] [place] [address] LEUKOCYTE ESTERASE ERA Small Abnormal NEG [facility] Comment on above: Performed By: #### N UM #### [facility] ([id number]) [address] [place] [address], [place] [address] NITRITE ERA Positive Abnormal NEG [facility] Comment on above: Performed By: #### N UM #### [facility] ([id number]) [address] [place] [address] [place] [address] PH ERA 6.0 Normal 5.0-8.5 [facility] Comment on above: Performed By: #### N UM #### [facility] ([id number]) [address] [place] [address] [place] [address] PROTEIN ERA Negative Normal NEG [facility] Comment on above: Performed By: #### N UM #### [facility] ([id number]) [address], [place] [address] SPECIFIC GRAVITY ERA 1.025 Normal 1.003-1.035 [facility] Comment on above: Performed By: #### N UM #### [facility] ([id number]) [address], [place] [address] UROBILINOGEN ERA >=8.0 Normal <1.1 [facility] Comment on above: Performed By: #### N UM #### [facility] ([id number]) [address], [place] [address] ED Note-Physicianon 07-23-19 ED Note-Physician Basic Information Time Seen: Bernadette Gil PA-C 07/06/2023 15:16 Chief Complaint Pt reports vaginal itching and burning with urination for 1.5 months. Brown vaginal discharge. Pt also reports sinus congestion for 3-4 days. History of Present Illness 33-year-old female presents with brown vaginal discharge for the past 2 months. She states that she has followed up in [place] [facility] for this, but they did not [...] to follow-up with the health department or [employer]. Nasal congestion sounds viral and can use lgxy-efd-tekrrnl medications and follow-up family doctor. Afebrile, not [...] prescription medications Follow-up With When Contact Information [facility] Dept: [phone] In 3 days 07/09/2023 EST Additional Instructions: Boubacar MULLINS, Zev Webber, ORS Within 2 to 4 days [address] [address] [address], [address] [place] [address]- Additional Instructions: Patient Education Viral Respiratory Infection, Xldm-Xd-Xdsk Attestation I performed a substantive part of [...] No. Hous (more content not included)... Normal [facility] Comment on above: Result Comment: Elec tronically Signed By: Bernadette Gil PA-C\.br\Date and Time Signed: 07/06/23 16:00 EST\.br\Electronically Co-Signed By: Adolfo Hernandez MD\.br\Date and Time Co-Signed: 07/23/23 19:29 EDT Chlam/GC/Trich,NAAon 024 C. trachomatis rRNA BETZAIDA+probe Ql (Unsp spec) Negative Invalid Interpretation Code Negative [facility] Comment on above: Performed By: #### 1 [id number] #### [facility] [address] [place] [address] N. gonorrhoeae rRNA BETZAIDA+probe Ql (Unsp spec) Negative Invalid Interpretation Code Negative [facility] Comment on above: Performed By: #### 1 [id number] #### [facility] [address] [facility] [place] [address] T. vaginalis rRNA BETZAIDA+probe Ql (Unsp spec) Negative Invalid Interpretation Code Negative [facility] Comment on above: Result Comment: Perf ormed at: =G [facility] [address] [place] C Lou [id number] MD Tamika Eid Performed By: #### 1 [id number] #### [facility] [address] [place] [address] C Urineon 07-08-2023 Bacteria identified Cx Nom [...] Locations R1: This test was performed at: [facility], [address] [place] [address], [address] , , [facility] Comment on above: Performed By: #### 2 [id number], [id number], [id number] #### [facility] [address] [place] [address] CHEMISTRYOrdered By: SYSTEM SYSTEM on 07-06-2023 Amphetamines [...] for Treatmenton Consent for Treatment [id number] #1.00TIFF Normal [facility] Discharge Instructionson Discharge Instructions [id number] 6#1.00TIFF Normal [facility] ED Clinical Summaryon 2023 ED Clinical Summary [address] [address] ED Clinical Summary Person Information Name: SANGEETA MYLES Sowmya/[facility] Age: 33 Years : 1990 Sex: Female Language: Afghan PCP: NONE, XXXX Marital Status: Single Visit [...] 16:02:43 07/06/2023 16:02:43 07/06/2023 16:02:43 ADDRESS: [address] [facility] [id number] PHYS DOC NOTES: MEDICAL INFORMATION: Prescriptions Given: Medications to Continue with No Changes Other Medications albuterol (albuterol 0.083% Inh Valerie 3 mL) 3 Milliliter Inhalation every 6 hours as needed for wheezing. PATIENT EDUCATION INFORMATION: Instructions: Viral Respiratory Infection, Rdwy-Kx-Upum Follow up: With: Address: When: Boubacar MULLINS, Zev Webber, ORS [address] [facility], [address] [place] [address] Within 2 to 4 days With: Address: When: [facility] Dept: [phone] In 3 days 07/09/2023 DIAGNOSIS: 1:Viral sinusitis; 2:Vaginal discharge; Other viral agents as the cause of diseases classified elsewhere Normal [facility] ED Patient Education Noteon 07-06-2023 ED [...] home: Managing pain and congestion ? Take fhsk-jty-xiixtud and prescription medicines only as told by [...] cannot use soap and water, use hand key person. ? Cover your mouth when you cough. [...] Reviewed: 07/23/2021 Elsevier Patient Education ? 2022 My COI. Normal [facility] ED Patient Summaryon 024 ED Patient Summary [address] [address] Patient Discharge Instructions Person Information Name: SANGEETA MYLES Age: 33 Years Arrival Date: 07/06/2023 15:07:04 Discharge Diagnosis: 1:Viral sinusitis; 2:Vaginal discharge; Other viral agents as the cause of diseases classified elsewhere Primary Care Physician: NONE, XXXX Provider Information Primary Provider: Advanced Trenching Machine Operator:None The exam and treatment you received in the Emergency Department were for an urgent problem and are not intended as complete care. It is important that you follow up with a doctor, nurse practitioner, or physician?s special education assistant for ongoing care. If your [...] When: Boubacar MULLINS, Zev Webber, ORS [address] [facility], [facility] [address] [place] [address] Within 2 to 4 days With: [facility]: [facility] [phone] In 3 days 07/09/2023 In the event that this physician does not participate in your insurance network, please consult with your insurance company to find a nearby participating provider. Patient Education Materials: Viral Respiratory Infection, Ozal-Me-Zagw A MESSAGE TO ALL PATIENTS REGARDING OPIOIDS PRESCRIPTION OPIOIDS: WHAT YOU NEED TO KNOW Prescription opioids can be used to help relieve clagfavw-bx-vwlzqh pain and are often prescribed following a [...] be strugglin (more content not included)... Normal [facility] No Panel InformationOrdered By: Bella Flower on 07-06-2023 WP No clue cells present No Trichomonas vaginalis present No yeast seen [facility] SEROLOGYOrdered By: Jules Stovereon on 07-06-2023 HCG.beta subunit (U) [Moles/Vol] Negative Normal [facility] Man Sero U BetaHcg Qualon 07-06-2023 HCG.beta subunit (U) [Moles/Vol] Negative Normal [facility] Comment on above: Performed By: #### 2 [id number], [id number], [id number] #### [facility] [address] [place] [address] U Drug Screenon 07-06-2023 Amphetamines Screen method >1000 ng/mL Ql (U) Negative Normal NEGATIVE [facility] Comment on above: Performed By: #### 2 [id number] #### [facility] [address] [place] [address] Barbiturates Screen Ql (U) Negative Normal NEGATIVE [facility] Comment on above: Performed By: #### 2 [id number] #### [facility] [address] [place] [address] Benzodiazepines Ql (U) Negative Normal NEGATIVE [facility] Comment on above: Performed By: #### 2 [id number] #### [facility] [address] [place] [address] Cannabinoids Screen Ql (U) Positive Abnormal NEGATIVE [facility] Comment on above: Performed By: #### 2 [id number] #### [facility] [address] [place] [address] Cocaine Ql (U) Negative Normal NEGATIVE [facility] Comment on above: Performed By: #### 2 [id number] #### [facility] [address] [place] [address] Opiates Screen Ql (U) Negative Normal NEGATIVE [facility] Comment on above: Performed By: #### 2 [id number] #### [facility] [address] [place] [address] Phencyclidine Screen method >25 ng/mL Ql (U) Negative Normal NEGATIVE [facility] Comment on above: Performed By: #### 2 [id number] #### [facility] [address] [place] [address] UA With Cult Reflexon 2023 Color (U) YELLOW Normal Yellow [facility] Comment on above: Performed By: #### 2 [id number], [id number], [id number] #### [facility] [address] [place] [address] Glucose (U) [Mass/Vol] Negative Normal Negative [facility] Comment on above: Performed By: #### 2 [id number], [id number], [id number] #### [facility] [address] [place] [address] Ketones Ql (U) Negative Normal Negative [facility] Comment on above: Performed By: #### 2 [id number], [id number], [id number] #### [facility] [address] [place] [address] UA Blood Negative Normal Negative [facility] Comment on above: Performed By: #### 2 [id number], [id number], [id number] #### [facility] [address] [place] [address] UA Amorph Nelsy Present Normal [facility] Comment on above: Performed By: #### 2 [id number], [id number], [id number] #### [facility] [address] [place] [address] UA Bacteria TRACE Normal Trace [facility] Comment on above: Performed By: #### 2 8502892, [id number], [id number] #### [facility] [address] [place] [address] UA Clarity CLEAR Normal Clear [facility] Comment on above: Performed By: #### 2 9530121, [id number], [id number] #### [facility] [address] [place] [address] UA Leuk Est 2+ Abnormal Negative [facility] Comment on above: Performed By: #### 2 9879806, [id number], [id number] #### [facility] [address] [place] [address] UA Mucous 1+ Normal [facility] Comment on above: Performed By: #### 2 [id number], [id number], [id number] #### [facility] [address] [place] [address] UA Nitrite Negative Normal Negative [facility] Comment on above: Performed By: #### 2 [id number], [id number], [id number] #### [facility] [address] [place] [address] UA pH 8.5 Invalid Interpretation Code 5.0-9.0 [facility] Comment on above: Performed By: #### 2 1120900, [id number], [id number] #### [facility] [address] [place] [address] UA Protein 2+ Abnormal Negative [facility] Comment on above: Performed By: #### 2 0870057, [id number], 7581779 #### [facility] [address] [place] [address] UA RBC 0-3 Normal 0-3 [facility] Comment on above: Performed By: #### 2 9973227, [id number], 6534949 #### [facility] [address] [place] [address] UA Spec Desc Clean Catch Normal [facility] Comment on above: Performed By: #### 2 [id number], [id number], [id number] #### [facility] [address] [place] [address] UA Spec Grav 1.010 Invalid Interpretation Code 1.005-1.030 [facility] Comment on above: Performed By: #### 2 [id number], [id number], [id number] #### [facility] [address] [place] [address] UA Squam Epithelial 3-4 Normal 0-2 [facility] Comment on above: Performed By: #### 2 0936702, [id number], 0038675 #### [facility] [address] [place] [address] UA Urobilinogen 4.0 EU/dL Abnormal 0.0-1.0 [facility] Comment on above: Performed By: #### 2 3272375, [id number], 4308436 #### [facility] [address] [place] [address] UA WBC 16-25 Abnormal 0-5 [facility] Comment on above: Performed By: #### 2 3449572, [id number], 7920796 #### [facility] [address] [place], [place] [address] Urobilinogen (U) [Mass/Vol] Negative Normal Negative [facility] Comment on above: Performed By: #### 2 [id number], [id number], [id number] #### [facility] [address] [place] [address] URINALYSISOrdered By: Jules Ny on 07-06-2023 Color (U) Yellow (07/06/23 3:19 PM) Normal Yellow [facility] UA Auto SS Ketones Ql (U) Negative [...] HCV W/PCR REFLX Reactive Abnormal NRCT [facility] Comment on above: Result Comment: Supplemental testing for HCV RNA by PCR has been ordered per CDC recommendations. Tlfydg-tk-cxvoef ratio is >=1.00. Performed By: #### A #### [facility] ([id number]) [address], [address] [place] [address] #### 89240-7 #### [facility] ([id number]) [address] [place] [address] HEPATITIS A IGM Non-Reactive Normal NRCT [facility] Comment on above: Performed By: #### A HP #### [facility] ([id number]) [address] [facility] [facility] [place] [address] #### 67161-7 #### [facility] ([id number]) [address] [place] [address] HEPATITIS B CORE IGM Negative Normal NEG [facility] Comment on above: Performed By: #### A HP #### [facility] ([id number]) [address] [facility] [place] [address] #### 20805-4 #### [facility] ([id number]) [address] [place] [address] HEPATITIS B SURF AG Negative Normal NEG [facility] Comment on above: Performed By: #### A HP #### [facility] ([id number]) [address] [facility] [place] [address] #### 27316-6 #### [facility] ([id number]) [address] [place] [address] HCV RNA BETZAIDA+probe Qnon 06-17 HCV RNA QUANT PCR [id number] IU/mL Abnormal Undetected [facility] Comment on above: Result Comment: NOTE Result in log IU/mL is 6.72. ADDITIONAL INFORMATION The quantification range of this assay is 15 to 100,000,000 IU/mL (1.18 log to 8.00 log IU/mL). Testing was performed using the valentin HCV test ([employer] Test Performed by: [facility] [address] [facility], [place] [address] Baker Pastry: Ruddy Gonzalez M.D. Ph.D.; CLIA# [id number] Performed By: #### A HP #### [facility] ([id number]) [address] [facility] [facility], [address] [place] [address] #### 31806-9 #### [facility] ([id number]) [address] [place] [address], [place] [address] Cult,Urineon 12-11-2022 Cult,Urine Specimen Description .URINE Culture Several types of bacteria were identified in this specimen. Further ID and susceptibility testing is generally not helpful in this circumstance and has not been performed. Consider recollection if clinically indicated. Report Status FINAL 12/11/2022 Normal [facility] Comment on above: Performed By: #### P HEP, HIVCMB #### [address] [address] Baker Pastry: Antonino Nova MD #### BMPCMP, BMP, CBC #### [facility] [address] [place] [address] [place] [address] Baker Pastry: Merlin Charles MD UA w/Reflex Cultureon 2022 Bilirubin, SemiQt,Ur Negative Normal NEG [facility] Comment on above: Performed By: #### P HEP, HIVCMB #### [address] [address] Baker Pastry: Antonino Nova MD #### BMPCMP, BMP, CBC #### [facility] [address] [place] [address] Baker Pastry: Merlin Charles MD Blood, Urine Negative Normal NEG [facility] Comment on above: Performed By: #### P HEP, HIVCMB #### [address] [address] Baker Pastry: Antonino Nova MD #### BMPCMP, BMP, CBC #### [address] [place], [place] [address]83 Baker Pastry: Merlin Charles MD Clarity (U) Clear Normal CLEAR [facility] Comment on above: Performed By: #### P HEP, HIVCMB #### [address] [address] Baker Pastry: Antonino Nova MD #### BMPCMP, BMP, CBC #### [address] [place], [place] 4145383 Baker Pastry: Merlin Charles MD Color (U) Yellow Normal YEL [facility] Comment on above: Performed By: #### P HEP, HIVCMB #### [address] [address] Baker Pastry: Antonino Nova MD #### BMPCMP, BMP, CBC #### [address] [place], [place] 5345183 Baker Pastry: Merlin Charles MD Glucose Ql (U) Negative Normal NEG [facility] Comment on above: Performed By: #### P HEP, HIVCMB #### [address] [address] Baker Pastry: Antonino Nova MD #### BMPCMP, BMP, CBC #### [address] [place], [place] 8857483 Baker Pastry: Merlin Charles MD Ketones Ql (U) Negative Normal NEG [facility] Comment on above: Performed By: #### P HEP, HIVCMB #### [address] [address] Baker Pastry: Antonino Nova MD #### BMPCMP, BMP, CBC #### [address] [place], [place] 4669283 Baker Pastry: Merlin Charles MD Leukocyte esterase Test strip Ql (U) LARGE Abnormal NEG [facility] Comment on above: Performed By: #### P HEP, HIVCMB #### [address] [address] Baker Pastry: Antonino Nova MD #### BMPCMP, BMP, CBC #### [address] [place], [place] 0595183 Baker Pastry: Merlin Charles MD Nitrite,Ur Negative Normal NEG [facility] Comment on above: Performed By: #### P HEP, HIVCMB #### [address] [address] Baker Pastry: Antonino Nova MD #### BMPCMP, BMP, CBC #### [address] [place] [address] Baker Pastry: Merlin Charles MD PH,Ur 6.0 Normal 5.0-9.0 [facility] Comment on above: Performed By: #### P HEP, HIVCMB #### [address] [address] Baker Pastry: Antonino Nova MD #### BMPCMP, BMP, CBC #### [address] [place], [place] 5296083 Baker Pastry: Merlin Charles MD Protein Ql (U) Negative Normal NEG [facility] Comment on above: Performed By: #### P HEP, HIVCMB #### [address] [address] Baker Pastry: Antonino Nova MD #### BMPCMP, BMP, CBC #### [address] [place], [place] 5932483 Baker Pastry: Merlin Charles MD Spec. [place],Ur 1.025 High 1.010-1.020 [facility] Comment on above: Performed By: #### P HEP, HIVCMB #### [address] [address] Baker Pastry: Antonino Nova MD #### BMPCMP, BMP, CBC #### [facility] [address] [place] [address] [address] [id number] Baker Pastry: Merlin Charles MD Urobilinogen,Ur Normal Normal 0.0-1.[address] [facility] Comment on above: Performed By: #### P HEP, HIVCMB #### [address] [address] Baker Pastry: Antonino Nova MD #### BMPCMP, BMP, CBC #### [address] [place] [address] Baker Pastry: Merlin Charles MD Urinalysis,Microon 3 Bacteria 3+ Abnormal NONE [facility] Comment on above: Performed By: #### P HEP, HIVCMB #### [address] [address] Baker Pastry: Antonino Nova MD #### BMPCMP, BMP, CBC #### [address] [place] [address]4783 Baker Pastry: Merlin Charles MD Epithelial cells LM Ql (Urine sed) 0 TO 2 Normal 0-25 [facility] Comment on above: Performed By: #### P HEP, HIVCMB #### [address] [address] Baker Pastry: Antonino Nova MD #### BMPCMP, BMP, CBC #### [address] [place] [address] Baker Pastry: Merlin Charles MD Urine RBC's 0 TO 2 Normal 0-2 [facility] Comment on above: Performed By: #### P HEP, HIVCMB #### [facility] [address] [place], [place] 0618[address] Baker Pastry: Antonino Nova MD #### BMPCMP, BMP, CBC #### [facility] [address] [place] [address] [place] [address] Baker Pastry: Merlin Charles MD Urine WBC's 10 TO 20 Normal 0-5 [facility] Comment on above: Performed By: #### P HEP, HIVCMB #### [place] [address] [place], [place] 1669408 Baker Pastry: Antonino Nova MD #### BMPCMP, BMP, CBC #### [facility] [address] [place] [address] [place] [address] Baker Pastry: Merlin Charles MD Cult,Urineon 09-24-2022 Cult,Urine Specimen Description .VOIDED URINE Culture ESCHERICHIA COLI >[id number] CFU/ML STREPTOCOCCI, BETA HEMOLYTIC GROUP B >797569 CFU/ML Report Status FINAL 09/24/2022 SUSCEPTIBILITY Organism [...] Tobramycin <=1 SUSCEPTIBLE Trimethoprim/Sulfa <=20 SUSCEPTIBLE Susceptible [facility] Comment on above: Performed By: #### U RC #### [address] [id number] Baker Pastry: Antonino Nova MD [facility] [address] [place] [address] [place] [address] Baker Pastry: Merlin Charles MD Chlamydia/GC,DNA Ampon 09-23 Chlamydia Probe Negative Normal NEG [facility] Comment on above: Result [...] Performed By: #### U ANKITA UA #### [facility] [address] [place] [address] [place] [address] Baker Pastry: Merlin Charles MD #### SWCGP #### [address] [id number] Baker Pastry: Antonino Nova MD Gonorrhea Probe Negative [facility] Comment on above: Result Comment: NEIS [...] Performed By: #### U ANKITA UA #### [facility] [address] [place] [address] [place] [address] Baker Pastry: Merlin Charles MD #### SWCGP #### [address] [address] Baker Pastry: Antonino Nova MD Trichomonas/Wet Prepon 09-22 Trichomonas/Wet Prep Specimen Descriptio n .VAGINAL SPECIMEN Direct Exam NO YEAST OBSERVED NO TRICHOMONAS SEEN NO CLUE CELLS SEEN Report Status FINAL 09/22/2022 [facility] Comment on above: Performed By: #### P HEP, HIVCMB #### [address] [address] Baker Pastry: Antonino Nova MD #### BMPCMP, BMP, CBC #### [facility] [address] [place] [address] Baker Pastry: Merlin Charles MD Urinalysis, Routineon 2022 Bilirubin, SemiQt,Ur Negative Normal NEG [facility] Comment on above: Performed By: #### U MICAO, UA #### [facility] [address] [place] [address] Baker Pastry: Merlin Charles MD #### SWCGP #### [address] [address] Baker Pastry: Antonino Nova MD Blood, Urine Negative Normal NEG [facility] Comment on above: Performed By: #### U MICAO, UA #### [facility] [address] [place] [address] [place] [place], [place] [phone] Baker Pastry: Merlin Charles MD #### SWCGP #### [address] [address] Baker Pastry: Antonino Nova MD Clarity (U) Cloudy Abnormal CLEAR [facility] Comment on above: Performed By: #### U MICAO, UA #### [facility] [address] [place] [address] [place], [place] [phone] Baker Pastry: Merlin Charles MD #### SWCGP #### [address] [address] Baker Pastry: Antonino Nova MD Color (U) Yellow Normal YEL [facility] Comment on above: Performed By: #### U MICAO, UA #### [facility] [address] [place], [place] [phone] Baker Pastry: Merlin Charles MD #### SWCGP #### [address] [address] Baker Pastry: Antonino Nova MD Glucose Ql (U) Negative Normal [facility]G [facility] Comment on above: Performed By: #### U MICAO, UA #### [facility] [address] [place] [address] [address], [place] [id number] Baker Pastry: Merlin Charles MD #### SWCGP #### [address] [address] Baker Pastry: Antonino Nova MD Ketones Ql (U) Negative Normal NEG [facility] Comment on above: Performed By: #### U MICAO, UA #### [facility] [address] [place] [address] [address], [place] [address] Baker Pastry: Merlin Charles MD #### SWCGP #### [address] [id number] Baker Pastry: Antonino Nova MD Leukocyte esterase Test strip Ql (U) MODERATE Abnormal NEG [facility] Comment on above: Performed By: #### U MICAO, UA #### [facility] [address] [place] [address] [address], [place] [phone] Baker Pastry: Merlin Charles MD #### SWCGP #### [address] [address] Baker Pastry: Antonino Nova MD Nitrite,Ur Positive Abnormal NEG [facility] Comment on above: Performed By: #### U MICAO, UA #### [facility] [address] [place] [address] [address], [place] [phone] Baker Pastry: Merlin Charles MD #### SWCGP #### [address] [address] Baker Pastry: Antonino Nova MD PH,Ur 6.0 Normal 5.0-9.0 [facility] Comment on above: Performed By: #### U MICAO, UA #### [address] [place] [address] Baker Pastry: Merlin Charles MD #### SWCGP #### [address] [address] Baker Pastry: Antonino Nova MD Protein Ql (U) Negative Normal NEG [facility] Comment on above: Performed By: #### U MICAO, UA #### [address] [place] [address] Baker Pastry: Merlin Charles MD #### SWCGP #### [address] [address] Baker Pastry: Antonino Nova MD Spec. [place],Ur 1.025 High 1.010-1.020 [facility] Comment on above: Performed By: #### U MICAO, UA #### [address] [place] [phone] Baker Pastry: Merlin Charles MD #### SWCGP #### [address] [address] Baker Pastry: Antonino Nova MD Urobilinogen,Ur Normal Normal NORM [facility] Comment on above: Performed By: #### U MICAO, UA #### [address] [place] [phone] ( Baker Pastry: Merlin Charles MD #### SWCGP #### [address] [address] Baker Pastry: Antonino Nova MD Urinalysis,Microon 3 Bacteria 3+ Abnormal NONE [facility] Comment on above: Performed By: #### U MICAO, UA #### [address] [place], [place] 0261983 Baker Pastry: Merlin Charles MD #### SWCGP #### [address] [address] Baker Pastry: Antonino Nova MD Epithelial cells LM Ql (Urine sed) 0 TO 2 Normal 0-25 [facility] [facility] Comment on above: Performed By: #### U KIMO, UA #### [facility] [address] [place], [place] [address]683 Baker Pastry: Merlin Charles MD #### SWCGP #### [address] [address] Baker Pastry: Antonino Nova MD Mucus Strands 1+ Abnormal NONE [facility] Comment on above: Performed By: #### U KIMO, UA #### [facility] [address] [place] [address] [address] [place], [place] [id number] Baker Pastry: Merlin Charles MD #### SWCGP #### [address] [address] Baker Pastry: Antonino Nova MD Urine RBC's 0 TO 2 Normal 0-2 [facility] Comment on above: Performed By: #### U ANKITA, UA #### [facility] [address] [place] [address] [place] [place], [place] [phone] Baker Pastry: Merlin Charles MD #### SWCGP #### [address] [address] Baker Pastry: Antonino Nova MD Urine WBC's 10 TO 20 Normal 0-5 [facility] Comment on above: Performed By: #### U KIMO, UA #### [facility] [address] [place] [address] [address] [place], [place] [phone] Baker Pastry: Merlin Charles MD #### SWCGP #### [address] [address] Baker Pastry: Antonino Nova MD HCV RNA,Quant,PCRon 05-16-20 23 HCV Quant [id number] IU/mL Normal [facility] Comment on above: Performed By: #### H CVQN #### [facility] [address] [place] [address] Baker Pastry: Antonino Nova MD [facility] [address] [place] [address] [place] [address] Baker Pastry: Merlin Charles MD HCV RNA,Quant Detected Abnormal NOTDET [facility] Comment on above: Result Comment: INTERPRETIVE [...] (HCT/P). Performed By: #### H CVQN #### [facility] [address] [place] [address] Baker Pastry: Antonino Nova MD [facility] [address] [place] [address] [place] [address] Baker Pastry: Merlin Charles MD HCV,RNA Log 6.95 Log IU/mL [facility] Comment on above: Performed By: #### H CVQN #### [facility] [address] [place] [address] Baker Pastry: Antonino Nova MD [facility] [address] [place] [address] [place] [address] Baker Pastry: Merlin Charles MD [facility] 09-13-2022 Erythrocyte distribution width (RBC) [Ratio] 17.7 % High 11.8-14.4 [facility] Comment on above: Performed By: #### P HEP, HIVCMB #### [address] [address] Baker [place]ry: Antonino Nova MD #### BMPCMP, BMP, CBC #### [address] [place] [phone] Baker Pastry: Merlin Charles MD Hematocrit (Bld) [Volume fraction] 39.8 % Normal 36.3-47.1 [facility] Comment on above: Performed By: #### P HEP, HIVCMB #### [place] [address] Baker Pastry: Antonino Nova MD #### BMPCMP, BMP, CBC #### [address] [place] [phone] Baker Pastry: Merlin Charles MD Hemoglobin (Bld) [Mass/Vol] 13.5 g/dL Normal 11.9-15.1 [facility] Comment on above: Performed By: #### P HEP, HIVCMB #### [place] [address] Baker Pastry: Antonino Nova MD #### BMPCMP, BMP, CBC #### [address] [place] [phone] Baker Pastry: Merlin Charles MD MCH (RBC) [Entitic mass] 35.6 pg High 25.2-33.5 [facility] Comment on above: Performed By: #### P HEP, HIVCMB #### [place] [id number] Baker Pastry: Antonino Nova MD #### BMPCMP, BMP, CBC #### [address] [place] [phone] Baker Pastry: Merlin Charles MD MCHC (RBC) [Mass/Vol] 33.9 g/dL Normal 28.4-34.8 [facility] Comment on above: Performed By: #### P HEP, HIVCMB #### [address] [id number] Baker Pastry: Antonino Nova MD #### BMPCMP, BMP, CBC #### [address] [place] [phone] Baker Pastry: Merlin Charles MD MCV (RBC) [Entitic vol] 105.0 fL High 82.6-102.9 [facility] Comment on above: Performed By: #### P HEP, HIVCMB #### [address] [phone] Baker Pastry: Antonino Nova MD #### BMPCMP, BMP, CBC #### [address] [place] [address] Baker Pastry: Merlin Charles MD NRBC Automated 0.0 per 100 WBC Normal 0.0 [facility] Comment on above: Performed By: #### P HEP, HIVCMB #### [address] [id number] Baker Pastry: Antonino Nova MD #### BMPCMP, BMP, CBC #### [address] [place] [phone] Baker Pastry: Merlin Charles MD Platelet mean volume (Bld) [Entitic vol] 10.2 fL Normal 8.1-13.5 [facility] Comment on above: Performed By: #### P HEP, HIVCMB #### [address] [id number] Baker Pastry: Antonino Nova MD #### BMPCMP, BMP, CBC #### [address] [place] [phone] Baker Pastry: Merlin Charles MD Platelets (Bld) [#/Vol] 128 10*3/uL Low 138-453 [facility] Comment on above: Performed By: #### P HEP, HIVCMB #### [address] [phone] Baker Pastry: Antonino Nova MD #### BMPCMP, BMP, CBC #### [facility] [address] [place] [address] [place]. [place] [phone] Baker Pastry: Merlin Charles MD RBC (Bld) [#/Vol] 3.79 10*6/uL Low 3.95-5.11 [facility] Comment on above: Performed By: #### P HEP, HIVCMB #### [address] [phone] Baker Pastry: Antonino Nova MD #### BMPCMP, BMP, CBC #### [address] [place] [phone] Baker Pastry: Merlin Charles MD WBC (Bld) [#/Vol] 3.7 10*3/uL Normal 3.5-11.3 [facility] Comment on above: Performed By: #### P HEP, HIVCMB #### [address] [address] Baker Pastry: Antonino Nova MD #### BMPCMP, BMP, CBC #### [facility] [address] [place] [address] [place] [address] Baker Pastry: Merlin Charles MD Hematocrit (Bld) [Volume fraction] 39.8 % 36.3 - 47.1 % [facility] Hemoglobin (Bld) [Mass/Vol] 13.5 g/dL 11.9 - 15.1 g/dL [facility] Interpretation and review of laboratory results Abnormal [facility] MCH (RBC) [Entitic mass] 35.6 pg High 25.2 - 33.5 pg [facility] MCHC (RBC) [Mass/Vol] 33.9 g/dL 28.4 - 34.8 g/dL [facility] MCV (RBC) [Entitic vol] 105.0 fL High 82.6 - 102.9 fL [facility] NRBC Automated 0.0 0.0 per 100 WBC [facility] Platelet distribution width (Bld) [Ratio] 17.7 % High 11.8 - 14.4 % [facility] Platelet mean volume (Bld) [Entitic vol] 10.2 fL 8.1 - 13.5 fL [facility] Platelets (Bld) [#/Vol] 128 10*3/uL Low [facility] RBC (Bld) [#/Vol] 3.79 10*6/uL Low 3.95 - 5.1 1 m/uL [facility] WBC (Bld) [#/Vol] 3.7 10*3/uL [facility] Comp Metabolic Profon 2022 Albumin [Mass/Vol] 4.1 g/dL Normal 3.5-5.2 [facility] Comment on above: Performed By: #### P HEP, HIVCMB #### [address] [id number] Baker Pastry: Antonino Nova MD #### BMPCMP, BMP, CBC #### [address] [place] [address] Baker Pastry: Merlin Charles MD Albumin/Glob Ratio 2.1 Normal 1.0-2.5 [facility] Comment on above: Performed By: #### P HEP, HIVCMB #### [address] [phone] Baker Pastry: Antonino Nova MD #### BMPCMP, BMP, CBC #### [address] [place] [address] Baker Pastry: Merlin Charles MD Alkaline Phos 67 U/L Normal 35-104 [facility] Comment on above: Performed By: #### P HEP, HIVCMB #### [address] [address] Baker Pastry: Antonino Nova MD #### BMPCMP, BMP, CBC #### [address] [place] [phone] Baker Pastry: Merlin Charles MD ALT [Catalytic activity/Vol] 41 U/L High 5-33 [facility] Comment on above: Performed By: #### P HEP, HIVCMB #### [address] [address] Baker Pastry: Antonino Nova MD #### BMPCMP, BMP, CBC #### [address] [place] [phone] ( Baker Pastry: Merlin Charles MD Anion gap [Moles/Vol] 6 mmol/L Low 9-17 [facility] Comment on above: Performed By: #### P HEP, HIVCMB #### [address] [address] Baker Pastry: Antonino Nova MD #### BMPCMP, BMP, CBC #### [address] [place] [phone] Baker Pastry: Merlin Charles MD AST [Catalytic activity/Vol] 52 U/L High <32 [facility] Comment on above: Performed By: #### P HEP, HIVCMB #### [address] [address] Baker Pastry: Antonino Nova MD #### BMPCMP, BMP, CBC #### [address] [place] [phone] Baker Pastry: Merlin Charles MD Bilirubin [Mass/Vol] 0.6 mg/dL Normal 0.3-1.2 [facility] Comment on above: Performed By: #### P HEP, HIVCMB #### [place] [address] [place] [address] Baker Pastry: Antonino Nova MD #### BMPCMP, BMP, CBC #### [facility] [address] [place] [phone] Baker Pastry: Merlin Charles MD BUN/CRE Ratio 16 Normal 9-20 [facility] Comment on above: Performed By: #### P HEP, HIVCMB #### [address] [address] Baker Pastry: Antonino Nova MD #### BMPCMP, BMP, CBC #### [facility] [address] [place] [address] Dr. [place] [phone] Baker Pastry: Merlin Charles MD Calcium [Mass/Vol] 10.0 mg/dL Normal 8.6-10.4 [facility] Comment on above: Performed By: #### P HEP, HIVCMB #### [address] [address] Baker Pastry: Antonino Nova MD #### BMPCMP, BMP, CBC #### [address] [place] [phone] Baker Pastry: Merlin Charles MD Chloride [Moles/Vol] 108 mmol/L High 98-107 [facility] Comment on above: Performed By: #### P HEP, HIVCMB #### [address] [address] Baker Pastry: Antonino Nova MD #### BMPCMP, BMP, CBC #### [facility] [address] [place] [address] [place] [address] Baker Pastry: Merlin Charles MD CO2 [Moles/Vol] 28 mmol/L Normal 20-[address] [facility] Comment on above: Performed By: #### P HEP, HIVCMB #### [place] [address] [place] [address] Baker Pastry: Antonino Nova MD #### BMPCMP, BMP, CBC #### [facility] [address] [place] [address] Baker Pastry: Merlin Charles MD Creatinine [Mass/Vol] 0.61 mg/dL Normal 0.50-0.90 [facility] Comment on above: Performed By: #### P HEP, HIVCMB #### [address] [id number] Baker Pastry: Antonino Nova MD #### BMPCMP, BMP, CBC #### [facility] [address] [place] [address] Baker Pastry: Merlin Charles MD GFR/1.73 sq M.predicted among non-blacks MDRD (S/P/Bld) [Vol rate/Area] mL/min/{1.73_m2} Normal >60 [facility] Comment on above: Result Comment: [...] Performed By: #### P HEP, HIVCMB #### [address] [id number] Baker Pastry: Antonino Nova MD #### BMPCMP, BMP, CBC #### [facility] [address] [place] [address] Baker Pastry: Merlin Charles MD Glucose [Mass/Vol] 87 mg/dL Normal 70-99 [facility] Comment on above: Performed By: #### P HEP, HIVCMB #### [place] [address] [place] [address] Baker Pastry: Antonino Nova MD #### BMPCMP, BMP, CBC #### [facility] [address] [place], [place] [phone] Baker Pastry: Merlin Charles MD Potassium [Moles/Vol] 5.0 mmol/L Normal 3.7-5.3 [facility] Comment on above: Performed By: #### P HEP, HIVCMB #### [address] [address] Baker Pastry: Antonino Nova MD #### BMPCMP, BMP, CBC #### [address] [place] [phone] Baker Pastry: Merlin Charles MD Protein [Mass/Vol] 6.1 g/dL Low 6.4-8.3 [facility] Comment on above: Performed By: #### P HEP, HIVCMB #### [address] [address] Baker Pastry: Antonino Nova MD #### BMPCMP, BMP, CBC #### [address] [place] [phone] Baker Pastry: Merlin Charles MD Sodium [Moles/Vol] 142 mmol/L Normal 135-144 [facility] Comment on above: Performed By: #### P HEP, HIVCMB #### [address] [address] Baker Pastry: Antonino Nova MD #### BMPCMP, BMP, CBC #### [facility] [address] [place] [address] [address]. [place], [place] [phone] Baker Pastry: Merlin Charles MD Urea nitrogen [Mass/Vol] 10 mg/dL Normal 6-20 [facility] Comment on above: Performed By: #### P HEP, HIVCMB #### [facility] [address] [place] [address] Baker Pastry: Antonino Nova MD #### BMPCMP, BMP, CBC #### [facility] [address] [place] [address] Baker Pastry: Merlin Charles MD Comprehensive Metabolic Pane [facility] 09-13-2022 Albumin [Mass/Vol] 4.1 g/dL 3.5 - 5.2 g/dL [facility] Albumin/Globulin [Mass ratio] 2.1 {ratio} 1.0 - 2.5 [facility] ALP [Catalytic activity/Vol] 67 U/L 35 - 104 U/L [facility] ALT [Catalytic activity/Vol] 41 U/L High 5 - 33 U/L [facility] Anion gap [Moles/Vol] 6 mmol/L Low 9 - 17 mmol/L [facility] AST [Catalytic activity/Vol] 52 U/L High NINF - 32 U/L [facility] Bilirubin [Mass/Vol] 0.6 mg/dL 0.3 - 1 .2 mg/dL [facility] Calcium [Mass/Vol] 10.0 mg/dL 8.6 - 10. 4 mg/dL [facility] Chloride [Moles/Vol] 108 mmol/L High 98 - 10 7 mmol/L [facility] CO2 [Moles/Vol] 28 mmol/L 20 - 31 mmol/L [facility] Creatinine [Mass/Vol] 0.61 mg/dL 0.50 - 0.90 mg/dL [facility] GFR/1.73 sq M.predicted MDRD (S/P/Bld) [Vol rate/Area] - PINF [facility] Comment on above: These results are [...] [Mass/Vol] 87 mg/dL 70 - 99 mg/dL [facility] Interpretation and review of laboratory results Abnormal [facility] Potassium [Moles/Vol] 5.0 mmol/L 3.7 - 5.3 mmol/L [facility] Protein [Mass/Vol] 6.1 g/dL Low 6.4 - 8.3 g/dL [facility] Sodium [Moles/Vol] 142 mmol/L 135 - 144 mmol/L [facility] Urea nitrogen [Mass/Vol] 10 mg/dL 6 - 20 mg/dL [facility] Urea nitrogen/Creatinine (Bld) [Mass ratio] 16 9 - 20 [facility] HCG Qualitative, Serumon hCG Qual Negative NEGATIVE [facility] Comment on above: Specimens with hCG l evels near the threshold of the test (25 mIU/mL) may give a negative or indeterminate result. In such cases, another test should be performed with a new specimen in 48-72 hours. If early is suspected clinically in this setting, correlation with quantitative serum b-hCG level is suggested. [employer] has confirmed the use of plasma for this test. This has not been cleared or approved by the U.[place]. Food and Drug Administration. The FDA has determined that such clearance is not necessary. [facility] HCG Screen, Bloodon 09-14-19 HCG Screen, Blood Negative Normal [facility] Comment on above: Result Comment: Spec imens with hCG levels near the threshold of the test (25 mIU/mL) may give a negative or indeterminate result. In such cases, another test should be performed with a new specimen in 48-72 hours. If early is suspected clinically in this setting, correlation with quantitative serum b-hCG level is suggested. [employer] has confirmed the use of plasma for this test. This has not been cleared or approved by the U.S. Food and Drug Administration. The FDA has determined that such clearance is not necessary. Performed By: #### P HEP, HIVCMB #### [employer] [facility] [place] [address] Baker Pastry: Antonino Nova MD #### BMPCMP, BMP, CBC #### [address] [place], [place] [phone] Baker Pastry: Merlin Charles MD HCV RNA,Quant,PCRon 09-14-19 23 Source .PLASMA Normal [facility] Comment on above: Performed By: #### H CVQN #### [address] [address] Baker Pastry: Antonino Nova MD [address] [place], [place] [phone] Baker Pastry: Merlin Charles MD HIV Ag/Abon 09-13-2022 HIV Ag/Ab Non-Reactive Normal NR [facility] Comment on above: Result Comment: No l aboratory evidence of HIV infection. If acute HIV infection is suspected, consider testing for HIV-1 RNA. Performed By: #### P HEP, HIVCMB #### [address] [address] Baker Pastry: Antonino Nova MD #### BMPCMP, BMP, CBC #### [address] [place], [place] [phone] Baker Pastry: Merlin Charles MD HIV Screenon 09-13-2022 HIV 1+2 Ab+HIV1 p24 Ag IA Ql Non-Reactive NONREACTIVE [facility] Comment on above: No laboratory eviden ce of HIV infection. If acute HIV infection is suspected, consider testing for HIV-1 RNA. [facility] Hepatitis Acute Jonnie 09-13 Hep A Ab,IgM Non-Reactive Normal NR [facility] Comment on above: Performed By: #### P HEP, HIVCMB #### [facility] [address] [place] [address] Baker Pastry: Antonino Nova MD #### BMPCMP, BMP, CBC #### [address] [place], [place] [phone] Baker Pastry: Merlin Charles MD Hep B Core Ab,IgM Non-Reactive Normal [facility] Comment on above: Performed By: #### P HEP, HIVCMB #### [place] [address] [place] [address] Baker Pastry: Antonino Nova MD #### BMPCMP, BMP, CBC #### [address] [place] [address] Baker Pastry: Merlin Charles MD Hep B Surf Ag Non-Reactive Normal [facility] Comment on above: Performed By: #### P HEP, HIVCMB #### [address] [address] Baker Pastry: Antonino Nova MD #### BMPCMP, BMP, CBC #### [address] [place], [place] [id number] Baker Pastry: Merlin Charles MD Hep C Ab Reactive Abnormal [facility] Comment on above: Result Comment: The [...] Performed By: #### P HEP, HIVCMB #### [place] [address] [place] [address] Baker Pastry: Antonino Nova MD #### BMPCMP, BMP, CBC #### [address] [place], [place] [phone] Baker Pastry: Merlin Charles MD Hepatitis Panel, Acute HAV IgM Ql (S) Non-Reactive NONREACTIVE [facility] HBV core IgM Ql (S) Non-Reactive NONREACTIVE [facility] HBV surface Ag IA Ql Non-Reactive NONREACTIVE [facility] HCV Ab IA Ql Reactive Abnormal NONREACTIVE [facility] Comment on above: The hepatitis C [...] 04-20 Albumin [Mass/Vol] 4.5 g/dL Normal 3.5-5.2 [facility] Comment on above: Performed By: #### P HEP, HIVCMB #### [address] [id number] Baker [place]ry: Antonino Nova MD #### BMPCMP, BMP, CBC #### [address] [place] [address] Baker Pastry: Merlin Charles MD Albumin/Glob Ratio 2.0 Normal 1.0-2.5 [facility] Comment on above: Performed By: #### P HEP, HIVCMB #### [address] [id number] Baker [employer]: Antonino Nova MD #### BMPCMP, BMP, CBC #### [address] [place] [address] Baker Pastry: Merlin Charles MD Alkaline Phos 81 U/L Normal 35-104 [facility] Comment on above: Performed By: #### P HEP, HIVCMB #### [address] [id number] [place]: Antonino Nova MD #### BMPCMP, BMP, CBC #### [facility] [address] [place] [address] [address] [place] [phone] Baker Pastry: Merlin Charles MD ALT [Catalytic activity/Vol] 106 U/L High 5-33 [facility] Comment on above: Performed By: #### P HEP, HIVCMB #### [place] [address] [place] [address] Baker Pastry: Antonino Nova MD #### BMPCMP, BMP, CBC #### [facility] [address] [place] [address] [place], [place] [phone] Baker Pastry: Merlin Charles MD AST [Catalytic activity/Vol] 77 U/L High <32 [facility] Comment on above: Performed By: #### P HEP, HIVCMB #### [address] [id number] Baker Pastry: Antonino Nova MD #### BMPCMP, BMP, CBC #### [address] [place], [place] [id number] Baker Pastry: Merlin Charles MD Bilirubin [Mass/Vol] 0.6 mg/dL Normal 0.3-1.2 [facility] Comment on above: Performed By: #### P HEP, HIVCMB #### [address] [address] Baker Pastry: Antonino Nova MD #### BMPCMP, BMP, CBC #### [address] [place], [place] 9674783 Baker Pastry: Merlin Charles MD Protein [Mass/Vol] 6.7 g/dL Normal 6.4-8.3 [facility] Comment on above: Performed By: #### P HEP, HIVCMB #### [address] [id number] [employer]: Antonino Nova MD #### BMPCMP, BMP, CBC #### [address] [place], [place] [id number] Baker Pastry: Merlin Charles MD HCV RNA,Quant,PCRon 04-20-20 HCV Quant 1,330,000 IU/mL Normal [facility] Comment on above: Performed By: #### P HEP, HIVCMB #### [address] [address] Baker Pastry: Antonino Nova MD #### BMPCMP, BMP, CBC #### [address] [place], [place] [phone] Baker Pastry: Merlin Charles MD HCV RNA,Quant Detected Abnormal NOTDET [facility] Comment on above: Result Comment: HCV [...] Performed By: #### P HEP, HIVCMB #### [address] [id number] [employer]: Antonino Nova MD #### BMPCMP, BMP, CBC #### [address] [place], [place] [phone] Baker Pastry: Merlin Charles MD HCV,RNA Log 6.12 Log IU/mL [facility] Comment on above: Performed By: #### P HEP, HIVCMB #### [address] [address] [employer]: Antonino Nova MD #### BMPCMP, BMP, CBC #### [address] [place], [place] [phone] Baker Pastry: Merlin Charles MD Basic Metabolic Profon 04-19 Anion gap [Moles/Vol] 7 mmol/L Low 9- [facility] Comment on above: Performed By: #### P HEP, HIVCMB #### [address] [id number] [employer]: Antonino Nova MD #### BMPCMP, BMP, CBC #### [facility] [address] [place], [place] [phone] Baker Pastry: Merlin Charles MD BUN/CRE Ratio 20 Normal - [facility] Comment on above: Performed By: #### P HEP, HIVCMB #### [address] [id number] [employer]: Antonino Nova MD #### BMPCMP, BMP, CBC #### [address] [place], [place] [id number] [employer]: Merlin Charles MD Calcium [Mass/Vol] 9.9 mg/dL Normal 8.6-10.4 [facility] Comment on above: Performed By: #### P HEP, HIVCMB #### [address] [address] [employer]: Antonino Nova MD #### BMPCMP, BMP, CBC #### [address] [place], [place] [id number] Baker [place]ry: Merlin Charles MD Chloride [Moles/Vol] 106 mmol/L Normal 98-107 [facility] Comment on above: Performed By: #### P HEP, HIVCMB #### [address] [address] [employer]: Antonino Nova MD #### BMPCMP, BMP, CBC #### [address] [place], [place] [id number] Baker [place]ry: Merlin Charles MD CO2 [Moles/Vol] 29 mmol/L Normal 20-[address] [facility] Comment on above: Performed By: #### P HEP, HIVCMB #### [facility] [address] [place] [address] Baker Pastry: Antonino Nova MD #### BMPCMP, BMP, CBC #### [address] [place], [place] [phone] Baker Pastry: Merlin Charles MD Creatinine [Mass/Vol] 0.79 mg/dL Normal 0.50-0.90 [facility] Comment on above: Performed By: #### P HEP, HIVCMB #### [address] [id number] [employer]: Antonino Nova MD #### BMPCMP, BMP, CBC #### [address] [place], [place] [phone] Baker [employer]ry: Merlin Charles MD GFR/1.73 sq M.predicted among non-blacks MDRD (S/P/Bld) [Vol rate/Area] mL/min/{1.73_m2} Normal >60 [facility] Comment on above: Result Comment: [...] Performed By: #### P HEP, HIVCMB #### [address] [id number] [employer]: Antonino Nova MD #### BMPCMP, BMP, CBC #### [address] [place], [place] 7895083 [employer]: Merlin Charles MD Glucose [Mass/Vol] 98 mg/dL Normal 70-99 [facility] Comment on above: Performed By: #### P HEP, HIVCMB #### [address] [address] [employer]: Antonino Nova MD #### BMPCMP, BMP, CBC #### [address] [place], [place] 1159783 [employer]: Merlin Charles MD Potassium [Moles/Vol] 4.6 mmol/L Normal 3.7-5.3 [facility] Comment on above: Performed By: #### P HEP, HIVCMB #### [address] [id number] [employer]: Antonino Nova MD #### BMPCMP, BMP, CBC #### [address] [place], [place] [phone] Baker Pastry: Merlin Charles MD Sodium [Moles/Vol] 142 mmol/L Normal 135-144 [facility] Comment on above: Performed By: #### P HEP, HIVCMB #### [address] [address] [employer]: Antonino Nova MD #### BMPCMP, BMP, CBC #### [address] [place], [place] 9603083 [employer]: Merlin Charles MD Urea nitrogen [Mass/Vol] 16 mg/dL Normal 6-20 [facility] Comment on above: Performed By: #### P HEP, HIVCMB #### [address] [address] [address] Baker Pastry: Antonino Nova MD #### BMPCMP, BMP, CBC #### [address] [place], [place] [id number] Baker Pastry: Merlin Charles MD CBCon 04-19-2022 Erythrocyte distribution width (RBC) [Ratio] 15.2 % High 11.8-14.4 [facility] Comment on above: Performed By: #### P HEP, HIVCMB #### [address] [address] Baker Pastry: Antonino Nova MD #### BMPCMP, BMP, CBC #### [address] [place], [place] [id number] Baker Pastry: Merlin Charles MD Hematocrit (Bld) [Volume fraction] 41.4 % Normal 36.3-47.1 [facility] Comment on above: Performed By: #### P HEP, HIVCMB #### [address] [address] Baker Pastry: Antonino Nova MD #### BMPCMP, BMP, CBC #### [address] [place] [id number] Baker Pastry: Merlin Charles MD Hemoglobin (Bld) [Mass/Vol] 13.3 g/dL Normal 11.9-15.1 [facility] Comment on above: Performed By: #### P HEP, HIVCMB #### [address] [address] Baker Pastry: Antonino Nova MD #### BMPCMP, BMP, CBC #### [address] [place] [address] Baker Pastry: Merlin Charles MD MCH (RBC) [Entitic mass] 33.8 pg High 25.2-33.5 [facility] Comment on above: Performed By: #### P HEP, HIVCMB #### [address] [id number] Baker Pastry: Antonino Nova MD #### BMPCMP, BMP, CBC #### [address] [place] [phone] Baker Pastry: Merlin Charles MD MCHC (RBC) [Mass/Vol] 32.1 g/dL Normal 28.4-34.8 [facility] Comment on above: Performed By: #### P HEP, HIVCMB #### [address] [id number] Baker Pastry: Antonino Nova MD #### BMPCMP, BMP, CBC #### [address] [place] [phone] Baker Pastry: Merlin Charles MD MCV (RBC) [Entitic vol] 105.3 fL High 82.6-102.9 [facility] Comment on above: Performed By: #### P HEP, HIVCMB #### [address] [address] Baker Pastry: Antonino Nova MD #### BMPCMP, BMP, CBC #### [address] [place] [phone] Baker Pastry: eMrlin Charles MD NRBC Automated 0.0 per 100 WBC Normal 0.0 [facility] Comment on above: Performed By: #### P HEP, HIVCMB #### [address] [address] Baker Pastry: Antonino Nova MD #### BMPCMP, BMP, CBC #### [address] [place] [address] Baker Pastry: Merlin Charles MD Platelet mean volume (Bld) [Entitic vol] 9.1 fL Normal 8.1-13.5 [facility] Comment on above: Performed By: #### P HEP, HIVCMB #### [address] [address] Baker Pastry: Antonino Nova MD #### BMPCMP, BMP, CBC #### [facility] [address] [place], [place] [phone] Baker Pastry: Merlin Charles MD Platelets (Bld) [#/Vol] 203 10*3/uL Normal 138-453 [facility] Comment on above: Performed By: #### P HEP, HIVCMB #### [address] [address] Baker Pastry: Antonino Nova MD #### BMPCMP, BMP, CBC #### [address] [place] [phone] Baker Pastry: Merlin Charles MD RBC (Bld) [#/Vol] 3.93 10*6/uL Low 3.95-5.11 [facility] Comment on above: Performed By: #### P HEP, HIVCMB #### [address] [address] Baker Pastry: Antonino Nova MD #### BMPCMP, BMP, CBC #### [address] [place], [place] [id number] Baker Pastry: Merlin Charles MD WBC (Bld) [#/Vol] 4.1 10*3/uL Normal 3.5-11.3 [facility] Comment on above: Performed By: #### P HEP, HIVCMB #### [address] [address] Baker Pastry: Antonino Nova MD #### BMPCMP, BMP, CBC #### [address] [place], [place] [phone] Baker Pastry: Merlin Charles MD HCV RNA,Quant,PCRon 04-19-20 22 Source .PLASMA Normal [facility] Comment on above: Performed By: #### P HEP, HIVCMB #### [address] [address] Baker Pastry: Antonino Nova MD #### BMPCMP, BMP, CBC #### [address] [place], [place] [phone] Baker Pastry: Merlin Charles MD HIV Ag/Abon 04-19-2022 HIV Ag/Ab Non-Reactive Normal [facility] Comment on above: Result Comment: No l aboratory evidence of HIV infection. If acute HIV infection is suspected, consider testing for HIV-1 RNA. Performed By: #### P HEP, HIVCMB #### [address] [address] Baker Pastry: Antonino Nova MD #### BMPCMP, BMP, CBC #### [address] [place] [address] Baker Pastry: Merlin Charles MD Hepatitis Acute [facility] 04-19 Hep A Ab,IgM Non-Reactive Normal [facility] Comment on above: Performed By: #### P HEP, HIVCMB #### [address] [address] Baker Pastry: Antonino Nova MD #### BMPCMP, BMP, CBC #### [address] [place] [address] Baker Pastry: Merlin Charles MD Hep B Core Ab,IgM Non-Reactive Normal [facility] Comment on above: Performed By: #### P HEP, HIVCMB #### [address] [address] Baker Pastry: Antonino Nova MD #### BMPCMP, BMP, CBC #### [address] [place] [address] Baker Pastry: Merlin Charles MD Hep B Surf Ag Non-Reactive Normal [facility] Comment on above: Performed By: #### P HEP, HIVCMB #### [facility] [address] [place], [place] [phone] Baker Pastry: Antonino Nova MD #### BMPCMP, BMP, CBC #### [facility] [address] [place] [address] [place] [address] Baker Pastry: Merlin Charles MD Hep C Ab Reactive Abnormal [facility] Comment on above: Result Comment: The [...] Performed By: #### P HEP, HIVCMB #### [address] [place], [place] [phone] Baker Pastry: Antonino Nova MD #### BMPCMP, BMP, CBC #### [address] [place] [address] Baker Pastry: Merlin Charles MD [facility] 11-09-2021 Hematocrit (Bld) [Volume fraction] 39.5 % 36.3 - 47.1 % [facility] Hemoglobin (Bld) [Mass/Vol] 12.6 g/dL 11.9 - 15.1 g/dL [facility] Interpretation and review of laboratory results Abnormal [facility] MCH (RBC) [Entitic mass] 32.6 pg 25.2 - 33.5 pg [facility] MCHC (RBC) [Mass/Vol] 31.9 g/dL 28.4 - 34.8 g/dL [facility] MCV (RBC) [Entitic vol] 102.3 fL 82.6 - 102.9 fL [facility] NRBC Automated 0.0 0.0 per 100 WBC [facility] Platelet distribution width (Bld) [Ratio] 14.9 % High 11.8 - 14.4 % [facility] Platelet mean volume (Bld) [Entitic vol] 9.7 fL 8.1 - 13.5 fL [facility] Platelets (Bld) [#/Vol] 175 10*3/uL [facility] RBC (Bld) [#/Vol] 3.86 10*6/uL Low 3.95 - 5.1 1 m/uL [facility] WBC (Bld) [#/Vol] 3.4 10*3/uL Low [facility] Comprehensive Metabolic Pane elvin 11-09-2021 Albumin [Mass/Vol] 4.7 g/dL 3.5 - 5.2 g/dL [facility] Albumin/Globulin [Mass ratio] 2.5 {ratio} [facility] ALP (Bld) [Catalytic activity/Vol] 76 U/L 35 - 104 U/L [facility] ALT [Catalytic activity/Vol] 50 U/L High 5 - 33 U/L [facility] Anion gap [Moles/Vol] 10 mmol/L 9 - 17 mmol/L [facility] AST [Catalytic activity/Vol] 40 U/L High <32 [facility] Bilirubin [Mass/Vol] 0.55 mg/dL 0.3 - 1 .2 mg/dL [facility] Calcium [Mass/Vol] 10.4 mg/dL 8.6 - 10. 4 mg/dL [facility] Chloride [Moles/Vol] 107 mmol/L 98 - 10 7 mmol/L [facility] CO2 [Moles/Vol] 25 mmol/L 20 - 31 mmol/L [facility] Creatinine [Mass/Vol] 0.72 mg/dL 0.50 - 0.90 mg/dL [facility] Free PSA/Total PSA [Mass fraction] 6.6 g/dL 6.4 - 8.3 g/dL [facility] GFR >60 >60 mL/min [facility] GFR Non- >60 >60 mL/min [facility] Glucose [Mass/Vol] 76 mg/dL 70 - 99 mg/dL [facility] Interpretation and review of laboratory results Abnormal [facility] Potassium [Moles/Vol] 3.9 mmol/L 3.7 - 5.3 mmol/L [facility] Sodium [Moles/Vol] 142 mmol/L 135 - 144 mmol/L [facility] Urea nitrogen (BldV) [Mass/Vol] 12 mg/dL 6 - 20 mg/dL [facility] Urea nitrogen/Creatinine (Bld) [Mass ratio] 17 [facility] HCG Qualitative, Serumon hCG Qual Negative NEGATIVE [facility] Comment on above: Specimens with hCG l evels near the threshold of the test (25 mIU/mL) may give a negative or indeterminate result. In such cases, another test should be performed with a new specimen in 48-72 hours. If early is suspected clinically in this setting, correlation with quantitative serum b-hCG level is suggested. [facility] has confirmed the use of plasma for this test. This has not been cleared or approved by the U.S. Food and Drug Administration. The FDA has determined that such clearance is not necessary. [facility] HIV Screenon 11-09-2021 HIV Ag/Ab Non-Reactive NONREACTIVE [facility] Comment on above: No laboratory eviden ce of HIV infection. If acute HIV infection is suspected, consider testing for HIV-1 RNA. [facility] Hepatitis Panel, Acuteon HAV IgM IA Qn (S) Non-Reactive NONREACTIVE [facility] Hep B Core Ab, IgM Non-Reactive NONREACTIVE [facility] Hepatitis B Surface Ag Non-Reactive NONREACTIVE [facility] Hepatitis C Ab Reactive Abnormal NONREACTIVE [facility] Comment on above: The hepatitis [...] GFR/1.73 sq M.predicted MDRD (S/P/Bld) [Vol rate/Area] [facility] Comment on above: Average GFR for 20-2 9 years old: 116 mL/min/1.73sq m Chronic Kidney Disease: <60 mL/min/1.73sq m Kidney failure: <15 mL/min/1.73sq m eGFR calculated using average adult body mass. Additional eGFR calculator available at: http://www.Btarget/multiple_crcl_2012.htm Stage 1: Some kidney damage normal GFR Stage 2: Mild kidney damage GFR 60-89 Stage 3: Moderate kidney damage GFR 30-59 Stage 4: Severe kidney damage GFR 15-29 Stage 5: Severe kidney damage GFR <15 ESRD - chronic treatment by dialysis or transplant Microscopic Urinalysison - [facility] Bacteria, UA 4+ Abnormal None [facility] Epithelial Cells UA 2 TO 5 [facility] Interpretation and review of laboratory results Abnormal [facility] Mucus, UA 1+ Abnormal None [facility] RBC, UA 0 TO 2 [facility] WBC, UA 20 TO 50 [facility] Urinalysis with Reflex to Cu ltureon 10-27-2021 Bilirubin Urine SMALL Abnormal NEGATIVE [facility] Color, UA Yellow Yellow [facility] Glucose, Ur Negative NEGATIVE [facility] Interpretation and review of laboratory results Abnormal [facility] Ketones Ql (U) Negative NEGATIVE [facility] Leukocyte esterase Test strip Ql (U) MODERATE Abnormal NEGATIVE [facility] Nitrite, Urine Negative NEGATIVE [facility] pH, UA 6.5 [facility] Protein, UA TRACE Abnormal NEGATIVE [facility] Specific [place], UA 1.025 High [facility] Turbidity UA SLIGHTLY CLOUDY Abnormal Clear [facility] Urine Hgb Negative NEGATIVE [facility] Urobilinogen, Urine Normal Normal [facility] Microscopic Urinalysison - [facility] Bacteria, UA 1+ Abnormal None [facility] Epithelial Cells UA 5 TO 10 [facility] Interpretation and review of laboratory results Abnormal [facility] RBC, UA 0 TO 2 [facility] WBC, UA 5 TO 10 [facility] Urinalysis with Reflex to Cu ltureon 10-07-2021 Bilirubin Urine Negative NEGATIVE [facility] Color, UA Yellow Yellow [facility] Glucose, Ur Negative NEGATIVE [facility] Interpretation and review of laboratory results Abnormal [facility] Ketones Ql (U) Negative NEGATIVE [facility] Leukocyte esterase Test strip Ql (U) MODERATE Abnormal NEGATIVE [facility] Nitrite, Urine Negative NEGATIVE [facility] pH, UA 5.5 [facility] Protein, UA Negative NEGATIVE [facility] Specific [place], UA 1.025 High [facility] Turbidity UA Clear Clear [facility] Urine Hgb Negative NEGATIVE [facility] Urobilinogen, Urine Normal Normal [facility] SEROLOGYOrdered By: Suly Raman on 07-24-2021 HCG.beta subunit (U) [Moles/Vol] Negative Normal [facility] Man Sero Tobacco Screening.on 022 Adult depression screening assessment Yes [facility] [place] 250 DO Work Phone: Tobacco use status CPHS a) Yes [facility]Shantanu feldman 250 DO Work Phone: Tobacco Screening. Yes [facility] [place] 250 DO Work Phone: Tobacco Screening. 3-Nearly every day [facility] feldman 250 DO Work Phone: Tobacco Screening. 2-More than half the days [facility] Solar3D 250 DO Work Phone: Tobacco Screening. 0-Not at all [facility] [place]on 250 DO Work Phone: Tobacco Screening. Very Difficult [facility] 250 DO Work Phone: XR [...] by: Janine DURON Date: 2021-07-04 02:09 Normal [facility] Vital Signs Date Time Vital Sign Value Performing Clinician Facility 07-06-2023 15:10-0500 Body temperature 98.42 [degF] Adolfo Hernandez [facility] 07-06-2023 15:10-0500 Diastolic blood pressure 69 mm[Hg] Adolfo Hernandez [facility] 07-06-2023 15:10-0500 Heart rate 102 /min Adolfo Hernandez [facility] 07-06-2023 15:10-0500 Respiratory rate 16 /min Adolfo Hernandez [facility] 07-06-2023 15:10-0500 SaO2% (BldA) [Mass fraction] 100 % Adolfo Hernandez [facility] 07-06-2023 15:10-0500 Systolic blood pressure 100 mm[Hg] Adolfo Hernandez [facility] 07-24-2021 17:25-0400 Body temperature 96.98 [degF] Zev Boubacar [facility] 07-24-2021 17:25-0400 Heart rate 66 /min Zev Hamlin [facility] 03-25-2022 17:25-0400 Respiratory rate 110 /min Zev Hamlin [facility] 07-24-2021 17:25-0400 SaO2% (BldA) [Mass fraction] 100 % Zev Hamlin [facility] 07-24-2021 17:25-0400 Systolic blood pressure 68 mm[Hg] Zev Hamlin [facility] 07-24-2021 17:20-0400 Body temperature 97.7 [degF] Zev Hamlin [facility] 07-24-2021 17:20-0400 Diastolic blood pressure 63 mm[Hg] Zev Hamlin [facility] 07-24-2021 17:20-0400 Heart rate 65 /min Zev Hamlin [facility] 07-24-2021 17:20-0400 Respiratory rate 11 /min Zev Hamlin [facility] 07-24-2021 17:20-0400 SaO2% (BldA) [Mass fraction] 100 % Zev Hamlin [facility] 07-24-2021 17:20-0400 Systolic blood pressure 106 mm[Hg] Zev Hamlin [facility] 07-24-2021 17:05-0400 Diastolic blood pressure 70 mm[Hg] Zev Hamlin [facility] 07-24-2021 17:05-0400 Heart rate 78 /min Zev Hamlin [facility] 07-24-2021 17:05-0400 Respiratory rate 11 /min Zev Hamlin [facility] 07-24-2021 17:05-0400 SaO2% (BldA) [Mass fraction] 100 % Zev Hamlin [facility] 07-24-2021 17:05-0400 Systolic blood pressure 109 mm[Hg] Zev Hamlin [facility] 07-24-2021 17:00-0400 Diastolic blood pressure 54 mm[Hg] Zev Hamlin [facility] 07-24-2021 16:53-0400 Body temperature 97.52 [degF] Zev Hamlin [facility] 07-24-2021 11:18-0400 Blood Pressure Location Zev Hamlin [facility] 07-24-2021 11:18-0400 BP/Pulse Patient Position Zev Hamlin [facility] 07-24-2021 11:18-0400 Mean blood pressure 78 mm[Hg] Zev Hamlin [facility] 07-24-2021 11:17-0400 Blood Pressure Location Zev Hamlin [facility] 07-24-2021 11:17-0400 Body temperature 98.24 [degF] Zev Hamlin [facility] 07-24-2021 11:17-0400 BP/Pulse Patient Position Zev Hamlin [facility] 07-24-2021 11:17-0400 Mean blood pressure 84 mm[Hg] Zev Hamlin [facility] 07-24-2021 11:17-0400 Respiratory rate 16 /min Zev Hamlin [facility] 07-24-2021 11:17-0400 Heart rate 72 /min Zev Hamlin [facility] 07-09-2021 09:07-0500 Diastolic blood pressure 62 mm[Hg] No PCP None [facility]-Only 250 DO Work Phone: 07-09-2021 09:07-0500 Systolic blood pressure 102 mm[Hg] No PCP None [facility]Pratima 250 DO Work Phone: 07-09-2021 09:01-0500 Body height 160.02 cm No PCP None [facility] Kelsey-Only 250 DO Work Phone: 07-09-2021 09:01-0500 Body mass index (BMI) [Ratio] 27.1 kg/m2 No PCP None [facility]Only 250 DO Work Phone: 07-09-2021 09:01-0500 Body surface area Derived from formula 1.73 m2 No PCP None [facility]Pr[facility] 250 DO Work Phone: 07-09-2021 09:01-0500 Body weight 69.4 kg No PCP None [facility] 250 DO Work Phone: 07-09-2021 09:01-0500 Diastolic blood pressure 62 mm[Hg] No PCP None [facility]Pratima 250 DO Work Phone: 07-09-2021 09:01-0500 Heart rate 59 /min No PCP None [facility] 250 DO Work Phone: 07-09-2021 09:01-0500 Systolic blood pressure 104 mm[Hg] No PCP None [facility] Connor 250 DO Work Phone: 07-09-2021 09:01-0500 18 1 No PCP None [facility]Only 250 DO Work Phone: Comment on above: PHQ-9 TS Encounters Encounter Date Encounter Type Care Provider Facility Start: 09-08-2023 End: 09-09-2023 ambulatory NO PCP NO PCP [facility] Start: 09-08-2023 Encounter for genera l adult medical examination without abnormal findings NO NO PCP [facility] Start: 08-19-2023 End: 08-19-2023 Emergency department patient visit NO PCP NO PCP [facility] Start: 07-06-2023 End: 07-06-2023 Emergency department patient visit Adolfo Hernandez Facility[facility] Start: 07-06-2023 End: 07-06-2023 Emergency department patient visit Adolfo Hernandez [facility] Start: 06-17-2023 End: 06-18-2023 ambulatory PB Olvera [facility] Start: 02-16-2023 ambulatory [facility] Start: 01-19-2023 ambulatory [facility] Start: 01-06-2023 ambulatory [facility] Start: 12-10-2022 End: 12-11-2022 ambulatory DE[facility]ANICE [facility] Start: 11-04-2022 ambulatory [facility] Start: 09-22-2022 End: 09-23-2022 ambulatory DEZSHANICE Weeks[facility] Start: 09-13-2022 End: 09-14-2022 ambulatory DEZ JACKIE [facility] Start: 09-13-2022 End: 09-13-2022 Subsequent hospital visit by physician [facility] Start: 09-10-2022 End: 09-11-2022 ambulatory DEZ JACKIE [facility] Start: 09-10-2022 End: 09-10-2022 Subsequent hospital visit by physician [facility] Start: 04-19-2022 End: 04-20-2022 ambulatory DEZSHANICE [facility] Start: 11-09-2021 End: 11-09-2021 Subsequent hospital visit by physician [facility] Start: 10-27-2021 End: 10-27-2021 Subsequent hospital visit by physician [facility] Start: 10-06-2021 End: 10-06-2021 Subsequent hospital visit by physician [facility] Start: 07-24-2021 End: 07-24-2021 Admission to same day surgery center Zev Hamlin [facility] Start: 07-09-2021 Office consultation new/estab patient 60 min No PCP None [facility]Only 250 DO Work Phone: Start: 07-04-2021 End: 07-04-[address] RADHA MOE Facility: Start: 06-29-2021 End: 10-15-2021 Recurring Zev Hamlin [facility] Patient encounter status No [facility] Work Phone: Procedures Date Procedure Procedure Detail Performing Clinician Start: 09-13-2022 Antibody hiv-1&hiv-2 single result Dez Jackie [employer] Work Phone: Start: 09-13-2022 Comprehensive metabo lic panel Dez Jackie [employer] Work Phone: Start: 11-09-2021 Antibody hiv-1&hiv-2 single result Dez Jackie [employer] Work Phone: Start: 11-09-2021 Comprehensive metabo lic panel Dez Jackie [employer] Work Phone: Start: 10-27-2021 Urinalysis microscop ic only Dez Jackie [employer] Work Phone: Start: 10-27-2021 Urnls dip stick/tabl et rgnt auto w/o microscopy Dez Jackie [employer] Work Phone: Start: 10-06-2021 Urinalysis microscop ic only Dez Jackie [employer] Work Phone: Start: 10-06-2021 Urnls dip stick/tabl et rgnt auto w/o microscopy Dez Jackie [employer] Work Phone: section No PCP None [...] Influenza vaccination Flu vacc ine (Season Ended) [facility] [employer] Start: 01-06-2022 Screening for malign ant neoplasm of cervix [facility] Start: 12-31-2021 Influenza vaccination B [facility] [employer] Start: 11-25-2021 FUV, Provider: Ruddy Garcia, Status: Pen, Time: 3:00 PM FUV, Provider: Ruddy Garcia, Status: Pen, Time: 3:00 PM [facility] [employer] DO Work Phone: Start: 07-15-2021 ECHO, Provider: CRISTAL MCCURDY [facility] ULTRASOUND 01,[id number], Status: Pen, Time: 11:30 AM ECHO, Provider: PRATIMA [facility] ULTRASOUND 01,[id number], Status: Pen, Time: 11:30 [facility] 250 DO Work Phone: Start: 07-15-2021 STRESS NUC, Provider : PRATIMA [facility] NUCLEAR 01,[id number], Status: Pen, Time: 11:30 AM STRESS NUC, Provider: PRATIMA [facility] NUCLEAR 01,[id number], Status: Pen, Time: 11:30 AM [facility] [employer] 250 DO Work Phone: Start: 01-06-2013 Screening for malign ant neoplasm of cervix Pap smear [facility] Start: 01-06-2011 DTaP/Tdap/Td vaccine (1 - Tdap) DTaP/Tdap/Td vaccine (1 - Tdap) [facility] Start: 01-06-2010 Hepatitis C screening Hepatitis C sc reen [facility] Start: 2004 Depression Screen Depression Screen [facility] Start: 01-06-1998 Pneumococcal 0-64 ye ars Vaccine (1 - PCV) Pneumococcal 0-64 years Vaccine (1 - PCV) [email or web address] Start: 01-06-1997 COVID-19 Vaccine (1) COVID-19 Vaccin e (1) [email or web address] Start: 01-06-1993 Varicella vaccine (1 of 2 - 2-dose childhood series) Varicella vaccine (1 of 2 - 2-dose childhood series) [email or web address] Start: 1992 COVID-19 Vaccine (#1) COVID-19 Vacci ne (#1) [email or web address] End: 10-27-2021 Culture, Urine [email or web address] Work Phone: Comment on above: Once for 1 Occurrenc es starting 10/27/2021 until 10/27/2021 End: 09-13-2022 Hepatitis C RNA, quantitative, PCR [email or web address] Work Phone: Comment on above: Once for 1 Occurrenc es starting 09/13/2022 until 09/13/2022 Immunizations Immunization Date Immunization Notes Care Provider Seun marc 05-14-2012 influenza, seasonal, injectable Zev Boubacar [facility] Comment on above: Early/Late Reason: P atient Not Available/Off Unit 05-14-2012 measles, mumps and rubella virus vaccine Zev Boubacar [facility] Comment on above: Early/Late Reason: P atient Not Available/Off Unit Payers Date Payer Category Payer Unknown [id number] 2019 Unknown [id number] 1992 Unknown [id number] 1992 Unknown [id number] 1992 Unknown [id number] 1992 Unknown [id number] 1992 Unknown [id number] 1992 Unknown [id number] [id number] 1992 Unknown [id number] [id number] 1992 Unknown [id number] [id number] 1992 Unknown [id number] [id number] 1992 Unknown [id number] [id number] 1992 Unknown [id number] [id number] 1992 Unknown [id number] [id number] 1992 Unknown [id number] [id number] 1992 Unknown [id number] 1959 Unknown [id number] Unknown [facility] Social History Date Type Detail Facility Start: 08-14-2013 End: 10-13-2017 Consumes alcohol occasionally Consumes alcohol occasionally -[facility] [address] DO Work Phone: Comment on above: <1PPD; Start: 06-25-2021 Tobacco smoking status Light t obacco smoker (finding) [facility] Sex Assigned At Female [facility] Start: 08-14-2013 End: 10-13-2017 Tobacco smoking status PRIS Smokes tobacco daily [facility] Work Phone: History of tobacco use Cigarette Smoker B ON This Week In Phone: Start: 08-14-2013 End: 10-13-2017 Tobacco use and exposure Smokeless tobacco non-user BON This Week In Phone: Start: 09-11-2018 Alcohol intake Current non-dr stereotype caster of alcohol (finding) [facility] Phone: Start: 1990 Sex Assigned At Not on file B ON This Week In Phone: Functional Status Date Assessment Result Facility 07-06-2023 Functional Status N/A [facility] 07-09-2021 PHQ-9 [id number] Moder ately Severe (15-19) [facility] 250 DO Work Phone: Clinical Notes 07-24-2021 [...] Locations R1: This test was performed at: [facility], [address] [place] [address], [facility] , , [facility] Comment on above: Performed By: #### 1 [id number] #### [facility] [address] [place] [address] 07-06-2023 Hospital Discharge instructions Patient Education 07/06/2023 15:38:59 Viral Respiratory Infection, [id number] Viral Respiratory Infection A viral respiratory infection [...] at home: Managing pain and congestion Take lulo-gaz-ouubwle and prescription medicines only as told by [...] cannot use soap and water, use hand key person. ?Cover your mouth when you cough. Cover [...] provider. Document Revised: 07/23/2021 Document Reviewed: 07/23/2021 [employer] Patient Education 2022 My [employer]I. 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 [facility] Chief complaint Narrative - Reported DOUGLAS MYLES is being seen for a consultation for. POC abnormal ECG; Dr. Hamlin [facility] 250 DO Work Phone: Chief complaint Narrative - Reported DOUGLAS MYLES is being seen for a consultation for. POC abnormal ECG; Dr. Hamlin [facility] Work Phone: Evaluation + Plan note No data available for this section [facility] History of Present illness Narrative Patient is seen for preoperative risk assessment. She apparently presented for tubal ligation and procedure was canceled because of abnormal EKG.She has been in and out of the emergency room multiple times. Recently she was in [place] at the [facility] and they also noted abnormal EKG and [...] correspond with the surgeon in this regard. [facility] 250 DO Work Phone: History of Present illness Narrative Patient is seen for preoperative risk assessment. She apparently presented for tubal ligation and procedure was canceled because of abnormal EKG.She has been in and out of the emergency room multiple times. Recently she was in [place] at [facility] and they also noted [...] correspond with the surgeon in this regard. 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 ACP-Advance Directive ACP-Power of Medical Review Specialist Latest Code Status on File Code Status Date Activated Date Inactivated Comments Full Code 03/06/2018 12:17 AM 03/06/2018 4:09 AM Latest Code Status on File Code Status Date Activated Date Inactivated Comments Full Code 03/06/2018 12:17 AM 03/06/2018 4:09 AM Additional Source Comments INFORMATION SOURCE (unrecogn ized section and content) DATE CREATED AUTHOR 07/14/2021 [facility] DATE CREATED AUTHOR AUTHOR'S ORGANIZ ATION 12/12/2022 [facility] DATE CREATED AUTHOR AUTHOR'S ORGANIZ ATION 02/17/2023 [facility] DATE CREATED AUTHOR AUTHOR'S ORGANIZ ATION 07/24/2023 [facility] DATE CREATED AUTHOR AUTHOR'S ORGANIZ ATION 09/13/2023 [facility] FOR RECORDS PERTAINING TO PATIENTS WHO ARE [...] BE BASED ON THE PRIMARY CLINICAL RECORDS. [facility] [employer] [facility]. provides no warranty or guarantee of the accuracy or completeness of information in this document.
[2023-10-23] MEDS: PANTOPRAZOLE SODIUM 40 MG VIAL IV (23:43)
[2023-10-23] MEDS: TRAZODONE HCL 50 MG TABLET 100 MG PO (23:44)
[2023-10-23] MEDS: NICOTINE 14 MG PATCH.TD24 TD (23:44)
[2023-10-24 01:09] VITALS: BP 98/60; PULSE 76; TEMP 36.7; O2SAT 92
[2023-10-24 01:31] LABS: Hemoglobin 7.9 g/dL (12.0-16.0)
[2023-10-24 01:36] LABS: Hematocrit 23.4 % (36.0-48.0)
--- NOTE | 2023-10-24 02:20 | PC.NURSE ---
night hospitalist clarified via tiger text that he only wants one unit of RBCs administered.
--- NOTE | 2023-10-24 02:38 | PC.NURSE ---
night hospitalist made aware of pt H&H after blood transfusion. No response back at this time.
[2023-10-24 04:34] VITALS: BP 100/65; PULSE 75; TEMP 36.6; O2SAT 90
[2023-10-24 07:30] LABS: Hemoglobin 7.9 g/dL (12.0-16.0); Mean Corpuscular HGB Conc 33.9 g/dL (29.9-35.2); Mean Corpuscular Hemoglobin 40.3 pg (26.7-34.0); Mean Corpuscular Volume 118.9 fL (81.0-99.0); Mean Platelet Volume 10.9 fL (9.5-13.5); Platelet Count 83 10^3/uL (150-450); Red Blood Count 1.96 10^6/uL (4.20-5.40); White Blood Count 2.1 10^3/uL (4.0-11.0)
[2023-10-24 07:31] LABS: Reticulocyte Pct Auto 4.25 % (0.60-3.10)
[2023-10-24 08:21] LABS: Percent Iron Saturation 82.4 %
[2023-10-24 08:44] LABS: Hematocrit 23.3 % (36.0-48.0)
[2023-10-24 08:47] LABS: Anisocytosis 2+; Lymphocytes Absolute Manual 1.17 10^3/uL (1.20-3.80); Monocytes Absolute Manual 0.08 10^3/uL (0.30-0.80); Segmented Neut Absolute Manual 0.84 10^3/uL (1.4-6.5)
--- NOTE | 2023-10-24 08:49 | P.HP_ITS ---
HPI H&P: HPI History of Present Illness Chief complaint: Blood in Stool, Anemia, Acute Liver Failure Narrative: Patient presented to the emergency room with increasing weakness. Found to have significant anemia with a hemoglobin of less than 7, thrombocytopenia, neutropenia. Patient was admitted for workup and treatment of same I saw patient up on the medical surgical floor, she was sleeping, awakened easily, no complaints, denied hematochezia or melena. Denied abdominal pain. Opioid HPI Opioid Management Most Recent Pain and Opioid Data: Last Pain Scale 6 05/22/23 03:30 Last Pain Assessment 10/24/23 09:00 Last ORT Total Score 8 10/23/23 19:49 Last ORT Risk Category High Risk 10/23/23 19:49 Ur Phencyclidine Scrn Negative (NEGATIVE) 11/09/22 20:25 Review of Systems ROS Status of ROS 10 or more systems reviewed and unremark able except as noted in history and below [facility] Medical History (Updated 10/23/23 @ 23:36 by Makayla Campos RN) Single delivery by section ?O82 - Encounter for delivery without indication (ICD-10) Liver failure ?K72.90 - Hepatic failure, unspecified without coma (ICD-10) Hep C w/o coma, chronic ?B18.2 - Chronic viral hepatitis C (ICD-10) Neurocardiogenic syncope ?R55 - Syncope and collapse (ICD-10) Family History (Updated 10/23/23 @ 19:39 by Makayla Campos, JACOB) Mother Family history of COPD (chronic obstructive pulmonary disease) Other Family history of cancer Family history of hypertension Social History (Updated 10/23/23 @ 19:41 by Makayla Campos, JACOB) Within the past year, how often did you have a drink containing alcohol: never Within the past year, how many standard drinks containing alcohol did you have on a typical day: 1 or 2 Within the past year, how often did you have six or more drinks on one occasion: never Total score: 0 Score interpretation: A score less than 3 is consistent with normal alcohol consumption. 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; clean for four months Previous occupational history: [employer] Highest level of school completed/degree received: high school graduate Are you now , , , , never or living with a partner: living with partner In a typical week, how many times do you talk on the telephone with family, friends, or neighbors: 3 or more times per week How often do you get together with friends or relatives: 3 or more times per week How often do you attend pentecostalism or buddhist services: never Little interest or pleasure in doing things: several days Feeling down, depressed, or hopeless: several days Feel stressed/tense/nervous/anxious/difficulty sleeping: to some extent Do you think of yourself as: straight/heterosexual Gender Identity: female Meds Home Medications and Allergies Home Medications ?Medication ?Instructions ?Recorded ?Confirmed ?Type trazodone 100 mg tablet 100 mg PO BEDTIME 11/09/22 10/23/23 History pantoprazole 40 mg tablet,delayed 40 mg PO DAILY #30 tabs 10/24/23 Rx release (Protonix) Allergies Allergy/AdvReac Type Severity Reaction Status Date / Time No Known Drug Allergies Allergy Verified 10/11/23 17:22 Exam Constitutional Vital Signs, click to edit/add: Last Vital Signs Temp 97.8 F 10/24/23 04:34 Pulse 75 10/24/23 04:34 Resp 16 10/24/23 04:34 BP 100/65 10/24/23 04:34 Pulse Ox 90 L 10/24/23 04:34 O2 Del Method Room Air 10/24/23 04:34 Documenting provider has reviewed patient's vital signs: yes Common normals: no apparent distress Chest Common normals: inspection of chest normal Respiratory Common normals: normal respiratory effort and no retractions Cardio Common normals: regular rate, regular rhythm and no murmurs GI Common normals: Normal to inspection, nondistended, normoactive bowel sounds present, soft to palpation, non-tender, no hepatosplenomegaly and no masses Palpation: non-tender and no rebound tenderness present Extremity Common normals: normal to inspection, full ROM, normal capillary refill, no clubbing, cyanosis or edema and no calf tenderness Results Labs Labs: Short CBC 10/23/23 10/24/23 10/24/23 Range/Units 17:34 01:22 07:18 WBC 2.1 L 2.1 L (4.0-11.0) 10^3/uL Hgb 6.8 L* 7.9 L 7.9 L (12.0-16.0) g/dL Hct 20.0 L* 23.4 L* 23.3 L* (36.0-48.0) % Plt Count 92 L 83 L (150-450) 10^3/uL BMP 10/23/23 17:34 Sodium 145 Potassium 4.1 Chloride 109 H Carbon Dioxide 29.1 BUN 11.0 Creatinine 0.70 Glucose 93 Calcium 9.6 Liver Function 10/23/23 10/24/23 Range/Units 17:34 07:18 Total Bilirubin 2.7 H (0.2-1.0) mg/dL Direct Bilirubin 1.0 H* (0.0-0.2) mg/dL AST 117 H (15-37) U/L ALT 85 H (14-59) U/L Alkaline Phosphatase 90 (46-116) U/L Albumin 3.5 (3.4-5.0) g/dL Assessment and Plan Assessment and Plan (1) Anemia: (2) Pancytopenia: Plan Admission findings: Increasing weakness, hypotension, acute anemia with a hemoglobin of less than 7, thrombocytopenia, neutropenia, hyperbilirubinemia with elevated liver function test-uncertain etiology for the pancytopenia, Acute anemia-improved with transfusion, stable on repeat, hemoglobin stable in the upper sevens. Occult blood negative. Continue with IV Protonix Thrombocytopenia-Down somewhat from admission. Neutropenia-stable from admission Hyperbilirubinemia with elevated direct bilirubinemia-this is likely secondary t o her chronic hepatitis C. Check ultrasound of abdomen Admission status: Placed patient initially in observation bed. If her ultrasound is negative and she tolerates a diet she will be discharged home in improving condition. Medications see list. Follow-up with PCP within the next week. Follow-up with oncology/hematology tomorrow
--- NOTE | 2023-10-24 08:49 | P.DS_ITS ---
DS: Providers Provider Date of admission: 10/23/23 19:29 Primary care physician: Non-Staff Physician, Consults: 10/23/23 Consult to Dietitian Routine Reason for consultation: unintentional weight loss 10/23/23 19:19 Consult to General Surgeon Routine Consulting Provider: Espinoza Stephens Reason for consultation: GIB Has provider been notified: No 10/23/23 19:24 Consult to Oncology Routine Consulting Provider: Argentina Atkins Reason for consultation: Anemia/Hx Pancytopenia Has provider been notified: Yes DS: Diagnosis Discharge Diagnosis (1) Anemia: (2) Pancytopenia: Plan Admission findings: Increasing weakness, hypotension, acute anemia with a hemoglobin of less than 7, thrombocytopenia, neutropenia, hyperbilirubinemia with elevated liver function test-uncertain etiology for the pancytopenia,- stable at the time of discharge Acute anemia-improved with transfusion, stable on repeat, hemoglobin stable in the upper sevens. Occult blood negative. -stable at the time of discharge Thrombocytopenia-deteriorated time of discharge Neutropenia-stable from admission Hyperbilirubinemia with elevated direct bilirubinemia-this is likely secondary to her chronic hepatitis C. Follow-up as an outpatient Admission status: Placed patient initially in observation bed. If her ultrasound is negative and she tolerates a diet she will be discharged home in improving condition. Medications see list. Follow-up with PCP within the next week. Follow-up with oncology/hematology tomorrow DS: Summary Hospital Course Hospital Course: Patient was admitted with increasing weakness. Found to have significant anemia, pancytopenia-his levels have been low in the past but she has not had significant workup. Her occult blood was negative, she was given 1 unit of PRBCs with an excellent response. And stable. Did check an ultrasound of the abdomen secondary to the elevated liver function test although this is likely related to her hepatitis C. If ultrasound of abdomen is negative, she is able to tolerate the diet, she will be discharged home in improving condition. Medication status. Follow-up with PCP within the next week. Status at Discharge Overall status at discharge: patient is not back to baseline Time Spent with Patient Time attestation: Total time spent providing and/or coordinating discharge services: Time spent: less than 30 minutes Exam Constitutional Vital Signs, click to edit/add: Last Vital Signs Temp 97.8 F 10/24/23 04:34 Pulse 75 10/24/23 04:34 Resp 16 10/24/23 04:34 BP 100/65 10/24/23 04:34 Pulse Ox 90 L 10/24/23 04:34 O2 Del Method Room Air 10/24/23 04:34 Documenting provider has reviewed patient's vital signs: yes Common normals: no apparent distress Chest Common normals: inspection of chest normal Respiratory Common normals: normal respiratory effort and no retractions Cardio Common normals: regular rate, regular rhythm and no murmurs GI Common normals: Normal to inspection, nondistended, normoactive bowel sounds present, soft to palpation, non-tender, no hepatosplenomegaly and no masses Palpation: non-tender and no rebound tenderness present Extremity Common normals: normal to inspection, full ROM, normal capillary refill, no clubbing, cyanosis or edema and no calf tenderness DS: Data Data Completed and Pending Labs on day of discharge: Labs from last 24 hours 10/24/23 10/24/23 10/23/23 07:18 01:22 19:00 WBC 2.1 L RBC 1.96 L Hgb 7.9 L 7.9 L Hct 23.3 L* 23.4 L* MCV 118.9 H MCH 40.3 H MCHC 33.9 RDW Plt Count 83 L MPV 10.9 Seg Neuts % (Manual) 40.0 Band Neutrophils % Lymphocytes % (Manual) 56.0 Monocytes % (Manual) 4.0 Eosinophils % (Manual) 0.0 L Basophils % (Manual) 0.0 L Neutrophils # (Manual) 0.84 L Band Neutrophils # Lymphocytes # (Manual) 1.17 L Monocytes # (Manual) 0.08 L Eosinophils # (Manual) 0.00 Basophils # (Manual) 0.00 Anisocytosis 2+ Macrocytosis Retic Count (auto) 4.25 H Sodium Potassium Chloride Carbon Dioxide Anion Gap BUN Creatinine Est GFR ( Amer) Est GFR (Non-Af Amer) BUN/Creatinine Ratio Glucose Lactate Calcium Iron 216.0 H TIBC 262.0 % Saturation 82.4 Total Bilirubin Direct Bilirubin 1.0 H* AST ALT Alkaline Phosphatase Ammonia Total Protein Albumin Globulin Albumin/Globulin Ratio Lipase Urine HCG, Qual Negative Stool Occult Blood Blood Type Antibody Screen Crossmatch 10/23/23 10/23/23 10/23/23 18:50 18:20 17:34 WBC 2.1 L RBC 1.50 L Hgb 6.8 L* Hct 20.0 L* MCV 133.3 H MCH 45.3 H MCHC 34.0 RDW 20.4 H Plt Count 92 L MPV 11.4 Seg Neuts % (Manual) 45.0 Band Neutrophils % 2.0 Lymphocytes % (Manual) 48.0 Monocytes % (Manual) 5.0 Eosinophils % (Manual) 0.0 L Basophils % (Manual) 0.0 L Neutrophils # (Manual) 0.94 L Band Neutrophils # 0.0 Lymphocytes # (Manual) 1.00 L Monocytes # (Manual) 0.10 L Eosinophils # (Manual) 0.00 Basophils # (Manual) 0.00 Anisocytosis Macrocytosis 2+ Retic Count (auto) Sodium 145 Potassium 4.1 Chloride 109 H Carbon Dioxide 29.1 Anion Gap 11.0 BUN 11.0 Creatinine 0.70 Est GFR ( Amer) >60 Est GFR (Non-Af Amer) >60 BUN/Creatinine Ratio 15.7 Glucose 93 Lactate 0.7 Calcium 9.6 Iron TIBC % Saturation Total Bilirubin 2.7 H Direct Bilirubin AST 117 H ALT 85 H Alkaline Phosphatase 90 Ammonia 43 H* Total Protein 6.0 L Albumin 3.5 Globulin 2.5 Albumin/Globulin Ratio 1.4 Lipase 20.0 Urine HCG, Qual Stool Occult Blood Negative Blood Type A Positive Antibody Screen Negative Crossmatch See Detail Discharge Plan Discharge Disposition: Home, Self-Care Discharge Medications: New pantoprazole [Protonix] 40 mg tablet,delayed release (DR/EC) 40 mg PO DAILY Qty: 30 11RF Continued trazodone 100 mg tablet 100 mg PO BEDTIME Discontinued buprenorphine-naloxone [Suboxone] 12-3 mg film 1 film buccal DAILY Print Language: Slovak Patient Instructions: Acute Liver Failure (DC), Anemia (DC) Forms: Portal Instructions Follow Up Appointments: Marcy Le NP, TueOctober 26, [address] Stephens's office will call patient for F/U
--- NOTE | 2023-10-24 08:50 | CM.NOTE ---
Rounds made with Dr. Mejia. Potential discharge after ultrasound abdomen and tolerates diet. Follow up outpatient with Dr. Stephens and Dr. Atkins (ONC/HEM). Pauline verbalizes understanding.
--- NOTE | 2023-10-24 08:52 | US_ITS ---
The [address] [address] Patient Name: SANGEETA MYLES MRN: [id number] date: 1990 Sex: F Assigned Patient Location: [place] Current Patient Location: [place] Accession/Order Number: [id number] Exam Date: 10/24/2023 09:05 Report Date: 10/24/2023 10:31 At the request of: MICHAEL HADDAD Procedure: US right upper quadrant EXAM: US right upper quadrant HISTORY: generalized abdominal pain COMPARISON: Acute abdominal series dated 10/23/2023 TECHNIQUE: Ultrasound study of the right upper quadrant of the abdomen was performed. FINDINGS: Pancreas appears grossly unremarkable. No obvious hepatic mass or intrahepatic ductal dilatation. Increased echogenicity within the dependent portion of the gallbladder without evidence of associated posterior shadowing, likely representing sludge. No obvious gallstones or gallbladder wall thickening. No obvious pericholecystic fluid. Common bile duct measures 3.4 cm in diameter which is within normal limits. There is unremarkable hepatopedal blood flow in the visualized portal vein. Right kidney measures 10.8 x 5.4 x 3.4 cm in longitudinal, transverse and AP dimensions. No obvious right renal mass or evidence of obstructive uropathy. No obvious right renal calculus. US/US right upper quadrant IMPRESSION: Ultrasound study demonstrates findings compatible with gallbladder sludge as described. No obvious gallstones or gallbladder wall thickening. No obvious acute process identified. Electronically authenticated by: JOSE GRANDE Date: 10/24/2023 10:31
[2023-10-24] MEDS: PANTOPRAZOLE SODIUM 40 MG VIAL IV (09:17)
[2023-10-24 10:21] LABS: Alanine Aminotransferase 84 U/L (14-59); Albumin Globulin Ratio 1.4; Albumin Level 3.3 g/dL (3.4-5.0); Alkaline Phosphatase 80 U/L (46-116); Anion Gap 12.6; Aspartate Amino Transferase 115 U/L (15-37); BUN Creatinine Ratio 17.6; Bilirubin Total 3.8 mg/dL (0.2-1.0); Calcium 9.1 mg/dL (8.5-10.1); Chloride 109 mmol/L (98-107); Estimated GFR (African America >60 (>=60); Estimated GFR (Non-African Ame >60 (>=60); Globulin 2.4 g/dL; Glucose 90 mg/dL (74-106); Lactate Dehydrogenase 1682 U/L (81-234); Potassium 3.6 mmol/L (3.5-5.1); Sodium 145 mmol/L (136-145); Total Protein 5.7 g/dL (6.4-8.2)
--- NOTE | 2023-10-24 10:23 | PC.NURSE ---
Lab notified at 10:02 of new order for UA...asked if they had any urine from ER. they did. Requested to run UA, culture off that urine. Tech says specimen still in refrigerator, and they will run test.
[2023-10-24 11:03] LABS: Bilirubin Urine SMALL (NEGATIVE); Blood Urine NEGATIVE (NEGATIVE); Clarity Urine CLEAR (CLEAR); Color Urine YELLOW (YELLOW); Glucose Urine UA NEGATIVE (NEGATIVE); Ketones Urine NEGATIVE (NEGATIVE); Leukocyte Esterase Urine TRACE (NEGATIVE); Nitrite Urine POSITIVE (NEGATIVE); Protein Urine NEGATIVE (NEG/TRACE); Urobilinogen Urine >=8.0 EU/dL (0.2-1.0); pH Urine 6.5 (5.0-9.0)
[2023-10-24 11:06] LABS: Bacteria Urine MODERATE #/HPF (NONE SEEN); Cast Seen? NONE SEEN #/LPF (NONE SEEN); Crystals Seen? None Seen #/HPF (None Seen); Mucus Urine TRACE (NONE SEEN); RBC Urine 0-2 #/HPF (0-2); Squamous Epithelial Cell Urine RARE #/LPF (NONE/RARE); Transitional Epi Cells Urine RARE #/LPF (NONE SEEN)
[2023-10-24 11:07] LABS: Urine Culture Indicated ALREADY ORDERED
[2023-10-25 12:09] LABS: Albumin 3.3 g/dL (2.9-4.4); Alpha-1-Globulin 0.2 g/dL (0.0-0.4); Alpha-2-Globulin 0.5 g/dL (0.4-1.0); Gamma Globulin 0.7 g/dL (0.4-1.8); Protein, Total 5.3 g/dL (6.0-8.5)
--- NOTE | 2023-10-25 13:22 | CM.DCFOLLOWU ---
Person spoke with:patient How are you feeling? still feeling sick How is your pain? tolerable but not feeling well Did you understand your discharge instructions? yes Do you have any questions about your discharge instructions? no Were you given any prescriptions at discharge? yes Were you able to get your prescriptions filled? yes Do you understand how to take your medications as ordered? yes Do you have any questions about your follow up appointment and do you plan to keep your follow up appointment? no questions, reviewed follow ups Is there anything else that you would like to discuss? no Questions/Comments/Concerns/Other:no
== END 2023-10-24 11:55 | disposition home or self-care (01) ==
LOC: ER 18:41 → MS 19:34
PROVIDERS: Nurse Practitioner Acute Care; Admitting Provider Family Medicine; Emergency Provider Emergency Medicine Emergency Medical Services; Visit Provider Family Medicine
DX: D62 Acute posthemorrhagic anemia (principal); R53.1 Weakness; I95.9 Hypotension, unspecified; D69.6 Thrombocytopenia, unspecified; D70.9 Neutropenia, unspecified; E80.6 Other disorders of bilirubin metabolism; B18.2 Chronic viral hepatitis C; K72.00 Acute and subacute hepatic failure without coma; F17.200 Nicotine dependence, unspecified, uncomplicated; F19.11 Other psychoactive substance abuse, in remission
CPT/HCPCS: 36415; 36430; 74022; 76705; 80053; 81001; 82140; 82248; 82607; 82728; 82746; 83540; 83550; 83605; 83615; 83690; 84155; 84165; 84703; 85007; 85014; 85018; 85027; 85045; 86850; 86900; 86901; 87086; 87150; 87186; 96374; 96376; 99285; G0328; G0378; P9016

== ENCOUNTER 2023-10-25 14:39 | Observation (INO) | payer OTHER, SELFPAY ==
[2023-10-25 14:45] VITALS: BP 102/57; PULSE 76; TEMP 37.1; O2SAT 98; BMI 26.6
--- OUTSIDE RECORDS SUMMARY | 2023-10-25 14:56 | XMS_ITS | CCD ---
Author Organization [facility] Inform ion Partnership BRICK KILN BURNER [facility] Care Team Providers Care Relief Docking Master Name Role Phone None, No PCP Unavailable [...] Unavailable ELVIS, P. EDWAR Primary Care Unavailable NO PCP, NO PCP Primary Care Unavailable FLAVIA WOODRUFF Attending Unavailab le NO PCP, NO PCP Primary Care Unavailable PHYSICIAN, UNKNOWN Referring Unavailable PB GARSIA Referring Unavailable SERVICES, [facility], [facility] Primary Care Unava ilable NO PCP, NO PCP Primary Care Unavailable Adolfo Hernandez Attending Unavailable Medications Current Medications Medication Drug Class(es) Dates Sig (Normalized) Sig (Original) acetaminophen 325 mg / oxyCODONE hydrochloride 5 mg oral tablet (1 source) Opioid Agonist Start: 07-24-2021 End: 07-26-2021 Percocet 325 mg-5 mg Tab 1 tab(s), Oral, q6hr for pain for 2 day(s), 7 tab(s), Refill(s) 0, [facility]/pharmacy #[id number], 161, cm, 06/25/21 13:03:00 EST, [...] by mouth 2 times daily 0 Active Yviqtzyz-Gwq-Ca-FA ( VITAMINS PO) (5 sources) Mfkmnpzj-Yhz-Zr-FA ( VITAMINS PO) Take by mouth 0 [...] sources) Dysuria; Translations: [Dysuria] Onset: 12-10-2022 Episodic Miscellaneous mental health disorders (2 sources) [...] [False labor, unspecified] Onset: 03-20-2018 03-20-2018 Episodic Hepatitis (5 sources) Viral hepatitis C; Translations: [Unspecified viral hepatitis C without hepatic coma] Onset: 07-24-2021 Episodic Immunizations and screening for infectious disease [...] (GLYCO-HGB)on 2023 Glucose [Mass/Vol] 117 mg/dL Normal [facility] Comment on above: Performed By: #### A #### [facility] ([id number]) [address] [place] [address], [address] [place] [address] #### [id number] #### [facility] ([id number]) [address] [place] [address], [place] [address] HbA1c (Bld) [Mass fraction] 5.7 % High 4.4-5.6 [facility] Comment on above: Result Comment: NOTE ADA Guidelines Result HgbA1c Normal : less than 5.7 % Prediabetes : 5.7 % to 6.4 % Diabetes : > 6.4 % Use with caution in patients with abnormal hemoglobin variants as the half-life of red blood cells and in vivo glycation rates are affected. Performed By: #### A HP #### [facility] ([id number]) [address] [place] [address], [address] [place] [address] #### [id number] #### [facility] ([id number]) [address] [place] [address] 30906 Lipid 1996 panelon 4 Cholesterol [Mass/Vol] 99 mg/dL Low 150-200 [facility] Comment on above: Performed By: #### A HP #### [facility] ([id number]) [address] [place] [address], [address] [place] [address] #### [id number] #### [facility] ([id number]) [address] [place] [address] 70082 Cholesterol in HDL [Mass/Vol] 29 mg/dL Low >39 [facility] Comment on above: Result Comment: HDL <40 mg/dL - High Risk HDL > or = 40mg/dL- Desirable HDL >60 mg/dL - Negative Risk Performed By: #### A HP #### [facility] ([id number]) [address] [place] [address], [address] [place] [address] #### 01252-1 #### [facility] ([id number]) [address] [place] [address] 94698 Cholesterol in LDL [Mass/Vol] 44 mg/dL Normal <130 [facility] Comment on above: Result Comment: LDL <100 mg/dL - Desirable LDL >160 mg/dL - High Risk Performed By: #### A HP #### [facility] ([id number]) [address], [address] [place] [address] #### 83636-6 #### [facility] ([id number]) [address] [place] [address] 59385 Cholesterol in VLDL [Mass/Vol] 26 mg/dL Normal 0-30 [facility] Comment on above: Performed By: #### A HP #### [facility] ([id number]) [address], [address] [place] [address] #### 49560-5 #### [facility] ([id number]) [address] [place] [address]912 CHOLESTEROL:HDL 3.4 Normal 1.0-5.0 [facility] Comment on above: Performed By: #### A HP #### [facility] ([id number]) [address], [address] [place] [address] #### 40392-8 #### [facility] ([id number]) [address] [place] [address] 30477 Triglyceride [Mass/Vol] 131 mg/dL Normal 27-150 [facility] Comment on above: Performed By: #### A HP #### [facility] ([id number]) [address], [address] [place] [address] #### 04564-2 #### [facility] ([id number]) [address] [place] [address] 19191 Reference Lab Test IDon 05-0 VIT D 1 25 DIHYDROXY See Below Normal [facility] Comment on above: Result Comment: NOTE TEST RESULT FLAG UNIT REF.RANGE ------- Vit D,1,25 Dihydroxy 59.9 pg/mL 19.9-79.3 Test Performed By: [facility] [address] [place] [address] Political Analyst: Krishna Mehta III #[id number] Performed By: #### A HP #### [facility] ([id number]) [address] [place] [address] [address] [place] [address] #### 40419-4 #### [facility] ([id number]) [address] [place] [address] 01697 TSH WITH REFLEXon 09-08-2023 TSH 1.36 uIU/mL Normal 0.49-4.67 [facility] Comment on above: Performed By: #### A HP #### [facility] ([id number]) [address] [place] [address], [address] [place] [address] #### 15655-8 #### [facility] ([id number]) [address] [place] [address] 52240 CBC AND AUTO DIFFon 08-19-19 24 Anisocytosis Ql (Bld) 2+ Abnormal NONE [facility] Comment on above: Performed By: #### C BRUCE, 3040-3, CBCA, #### [facility] ([id number]) [address] [place] [address] 90568 Erythrocyte distribution width (RBC) [Ratio] 23.1 % High 11.5-15.0 [facility] Comment on above: Performed By: #### C BRUCE, 3040-3, CBCA, #### [facility] ([id number]) [address] [place] [address] 62662 Hematocrit (Bld) [Volume fraction] 26.3 % Low 35-47 [facility] Comment on above: Performed By: #### C BRUCE, 3039-07, CBCA, 1987-08, #### [facility] ([id number]) [address] [place] [address] 14741 Hemoglobin (Bld) [Mass/Vol] 9.3 g/dL Low 11.7-15.5 [facility] Comment on above: Performed By: #### C BRUCE, 3039-07, CBCA, 1987-08, #### [facility] ([id number]) [address] [place] [address] 72225 Lymphocytes (Bld) [#/Vol] 1.0 10*3/uL Normal 1.0-3.5 [facility] Comment on above: Performed By: #### Ethan BARRERA, 3039-07, CBCA, 1987-08, #### [facility] ([id number]) [address] [place] [address] 04529 Lymphocytes/100 WBC (Bld) 48.0 % Normal [facility] Comment on above: Performed By: #### Ethan BARRERA, 3039-07, CBCA, 1987-08, #### [facility] ([id number]) [address] [place] [address] 27089 MCH (RBC) [Entitic mass] 42.6 pg High 27-34 [facility] Comment on above: Performed By: #### C BRUCE, 3039-07, CBCA, 1987-08, #### [facility] ([id number]) [address] [place] [address] 61821 MCHC (RBC) [Mass/Vol] 35.5 g/dL Normal 32-36 [facility] Comment on above: Performed By: #### C BRUCE, 3039-07, CBCA, 1987-08, #### [facility] ([id number]) [address] [place] [address] 44862 MCV (RBC) [Entitic vol] 120 fL High 80-100 [facility] Comment on above: Performed By: #### C BRUCE, 3039-07, CBCA, 1987-08, #### [facility] ([id number]) [address] [place] [address] 81049 Monocytes (Bld) [#/Vol] 0.2 10*3/uL Normal 0-0.9 [facility] Comment on above: Performed By: #### C BRUCE, 3039-07, CBCA, 1987-08, #### [facility] ([id number]) [address] [place] [address] 96989 Monocytes/100 WBC (Bld) 7.0 % Normal [facility] Comment on above: Performed By: #### C BRUCE, 3039-07, CBCA, 1987-08, #### [facility] ([id number]) [address] [place] [address] 62730 Neutrophils (Bld) [#/Vol] 1.0 10*3/uL Low 1.5-6.6 [facility] Comment on above: Performed By: #### Ethan BARRERA, 3039-07, CBCA, 1987-08, #### [facility] ([id number]) [address] [place] [address] 82929 Platelet mean volume (Bld) [Entitic vol] 8.3 fL Normal 7-12 [facility] Comment on above: Performed By: #### C BRUCE, 3039-07, CBCA, 1987-08, #### [facility] ([id number]) [address] [place] [address] 21715 Platelets (Bld) [#/Vol] 122 10*3/uL Low 150-450 [facility] Comment on above: Performed By: #### C BRUCE, 3039-3, CBCA, 1987-08, #### [facility] ([id number]) [address] [place] [address] 70028 RBC COUNT 2.19 X10E12/L Low 3.80-5.20 [facility] Comment on above: Performed By: #### C BRUCE, 3039-3, CBCA, 1987-08, #### [facility] ([id number]) [address] [place] [address] 61893 SEG NEUTROPHIL 45.0 % Normal [facility] Comment on above: Performed By: #### Ethan BARRERA, 3039-, CBCA, 1987-08, #### [facility] ([id number]) [address] [place] [address] 34383 TEARDROP 1+ Abnormal NONE [facility] Comment on above: Performed By: #### C BRUCE, 3039-07, CBCA, 1987-08, #### [facility] ([id number]) [address] [place] [address] 65231 WBC (Bld) [#/Vol] 2.2 10*3/uL Low 4.0-11.0 [facility] Comment on above: Performed By: #### C BRUCE, 3039-3, CBCA, 1987-08, #### [facility] ([id number]) [address] [place] [address] 16744 COMPREHENSIVE METABOLIC PANE Elvin 08-19-2023 Albumin [Mass/Vol] 3.3 g/dL Normal 3.2-5.3 [facility] Comment on above: Performed By: #### Ethan BARRERA, 3039-3, CBCA, 1987-08, #### [facility] ([id number]) [address] [place] [address] 44973 ALP [Catalytic activity/Vol] 50 U/L Normal 39-130 [facility] Comment on above: Performed By: #### C BRUCE, 0-3, CBCA, 1987-08, #### [facility] ([id number]) [address] [place] [address] 78724 ALT [Catalytic activity/Vol] 26 U/L Normal 0-31 [facility] Comment on above: Performed By: #### C BRUCE, 3039-3, CBCA, 1987-08, #### [facility] ([id number]) [address] [place] [address] 39511 Anion gap [Moles/Vol] 5 mmol/L Normal 5-15 [facility] Comment on above: Performed By: #### C BRUCE, 3039-, CBCA, 1987-08, #### [facility] ([id number]) [address] [place] [address] 13521 AST [Catalytic activity/Vol] 29 U/L Normal 0-41 [facility] Comment on above: Performed By: #### C BRUCE, 3039-, CBCA, 1987-08, #### [facility] ([id number]) [address] [place] [address] 45073 Bilirubin [Mass/Vol] 1.2 mg/dL Normal 0.3-1.2 [facility] Comment on above: Performed By: #### C BRUCE, 0-3, CBCA, 1987-08, #### [facility] ([id number]) [address] [place] [address] 46914 Calcium [Mass/Vol] 9.0 mg/dL Normal 8.5-10.5 [facility] Comment on above: Performed By: #### C BRUCE, 0-3, CBCA, 1987-08, #### [facility] ([id number]) [address] [place] [address] 57442 Chloride [Moles/Vol] 107 mmol/L Normal 98-109 [facility] Comment on above: Performed By: #### C BRUCE, 3040-3, CBCA, 1987-08, #### [facility] ([id number]) [address] [place] [address] 98808 CO2 [Moles/Vol] 27 mmol/L Normal 22-32 [facility] Comment on above: Performed By: #### C BRUCE, 3039-3, CBCA, 1987-08, #### [facility] ([id number]) [address] [place] [address] 25448 Creatinine [Mass/Vol] 0.53 mg/dL Normal 0.40-1.00 [facility] Comment on above: Result Comment: METH OD TRACEABLE TO IDMS STANDARD Performed By: #### C BRUCE, 3, CBCA, 1987-08, #### [facility] ([id number]) [address] [place] [address] 51720 eGFR (CKD-EPI) NON-RACE DEPENDENT >90 Normal >59 [facility] Comment on above: Result Comment: Reported eGFR is based on the CKD-EPI 2020 equation that does not use a race coefficient. Performed By: #### C BRUCE, 3040-3, CBCA, 1987-08, #### [facility] ([id number]) [address] [place] [address] 44630 Glucose [Mass/Vol] 94 mg/dL Normal 65-99 [facility] Comment on above: Performed By: #### C BRUCE, 3040-3, CBCA, 1987-08, #### [facility] ([id number]) [address] [place] [address] 41260 Potassium [Moles/Vol] 3.2 mmol/L Low 3.5-5.0 [facility] Comment on above: Performed By: #### C BRUCE, 3039-07, CBCA, 1987-08, #### [facility] ([id number]) [address] [place] [address] 07327 Protein [Mass/Vol] 5.5 g/dL Low 6.0-8.0 [facility] Comment on above: Performed By: #### Ethan BARRERA, 3039-07, CBCA, 1987-08, #### [facility] ([id number]) [address] [place] [address] 37425 Sodium [Moles/Vol] 139 mmol/L Normal 134-146 [facility] Comment on above: Performed By: #### Ethan BARRERA, 3039-07, CBCA, 1987-08, #### [facility] ([id number]) [address] [place] [address] 95064 Urea nitrogen [Mass/Vol] 11 mg/dL Normal 5-23 [facility] Comment on above: Performed By: #### Ethan BARRERA, 3039-07, CBCA, 1987-08, #### [facility] ([id number]) [address] [place] [address] 19907 CRP [Mass/Vol]on 08-19-2023 C REACTIVE PROTEIN 0.9 mg/dL High 0.000-0.744 [facility] Comment on above: Performed By: #### Ethan BARRERA, 3039-07, CBCA, #### [facility] ([id number]) [address] [place] [address] 42679 DRUG SCREEN, URINEon 024 AMPHETAMINE/METHAMP Negative Normal NEG [facility] Comment on above: Result Comment: AMPH /METH screening cut off = 1000 ng/mL Performed By: #### A HP #### [facility] ([id number]) [address] [facility], [address] [place] [address] #### 89167-6 #### [facility] ([id number]) [address] [place] [address] 43670 BARBITURATES Negative Normal NEG [facility] Comment on above: Result Comment: Ana iturates screening cut off value = 200 ng/mL Performed By: #### A HP #### [facility] ([id number]) [address] [facility], [address] [place] [address] #### 29560-5 #### [facility] ([id number]) [address] [place] [address] 89167 BENZODIAZEPINES Negative Normal NEG [facility] Comment on above: Result Comment: Jeramie odiazepines screening cut off value = 200 ng/mL Performed By: #### A HP #### [facility] ([id number]) [address], [address] [place] [address] #### 21000-1 #### [facility] ([id number]) [address] [place] [address] 39685 CANNABINOIDS Positive Abnormal NEG [facility] Comment on above: Result Comment: Conf irmation available upon request. Cannabinoids/THC screening cut off value = 50 ng/mL Performed By: #### A HP #### [facility] ([id number]) [address] [facility], [address] [place] [address] #### 72213-4 #### [facility] ([id number]) [address] [place] [address] 07529 COCAINE METABOLITE Negative Normal NEG [facility] Comment on above: Result Comment: Coca ine screening cut off value = 300 ng/mL Performed By: #### A HP #### [facility] ([id number]) [address] [place] [address], [address] [place] [address] #### 79057-4 #### [facility] ([id number]) [address] [place] [address] 37847 ECSTASY Negative Normal NEG [facility] Comment on above: Result Comment: Ecst asy screening cut off value = 500 ng/mL This report is intended for use in clinical monitoring or management of patients. Performed By: #### A #### [facility] ([id number]) [address] [place] [address], [address] [place] [address] #### 71913-0 #### [facility] ([id number]) [address] [place] [address] 07643 METHADONE Negative Normal NEG [facility] Comment on above: Result Comment: Meth adone screening cut off value = 300 ng/mL. Performed By: #### A #### [facility] ([id number]) [address] [place] [address], [address] [place] [address] #### 29454-4 #### [facility] ([id number]) [address] [place] [address] 55763 OPIATES Negative Normal [facility] Comment on above: Result Comment: Opia chalo screening cut off value = 300 ng/mL NOTE: This test is used for the detection of codeine, hydrocodone (>1000 ng/mL), morphine and hydromorphone (>900 ng/mL) in urine. Performed By: #### A #### [facility] ([id number]) [address] [place] [address], [address] [place] [address] #### 55990-9 #### [facility] ([id number]) [address] [place] [address] [place] [address] OXYCODONE Negative Normal NEG [facility] Comment on above: Result Comment: Oxyc odone screening cut off value = 300 ng/mL NOTE: This test is used for the detection of oxycodone and oxymorphone in urine. Performed By: #### A HP #### [facility] ([id number]) [address] [place] [address], [address] [place] [address] #### 44004-6 #### [facility] ([id number]) [address] [place] [address] 59065 PHENCYCLIDINE Negative Normal NEG [facility] Comment on above: Result Comment: Phen cyclidine screening cut off value = 25 ng/mL Performed By: #### A HP #### [facility] ([id number]) [address] [place] [address], [address] [place] [address] #### 45093-3 #### [facility] ([id number]) [address] [place] [address] 91137 HCG ( test) Ql (U)o n 08-19-2023 Beta HCG ( test) Ql (U) Negative Normal NEG [facility] Comment on above: Performed By: #### 2 106-3 #### [facility] ([id number]) [address] [place] [address] 38429 LIPASEon 08-19-2023 Lipase [Catalytic activity/Vol] 25 U/L Normal 17-40 [facility] Comment on above: Performed By: #### C BRUCE, 3040-3, CBCA, #### [facility] ([id number]) [address] [place] [address] 47121 MAGNESIUMon 08-19-2023 Magnesium [Mass/Vol] 1.9 mg/dL Normal 1.8-2.6 [facility] Comment on above: Performed By: #### C BRUCE, 3040-3, CBCA, #### [facility] ([id number]) [address] [place] [address] 33539 SARS/FLU A+B/RSV by NAAT/Mol [facility] 08-19-2023 SARS/FLU A+B/RSV by NAAT/Molecular FLU A [...] operators who are performing tests using either [employer] or [employer] systems and is limited to laboratories that [...] repeat. Fact Sheet for Healthcare Providers: https://www.fda.gov/ media/491604/downloa d Fact Sheet for Patients: https://www.fda.gov/ media/289860/downloa d [facility] Comment on above: Performed By: #### C OVFLR #### [facility] ([id number]) [address] [place] [address] [place] [address] URN MACROSCOPIC NURon 2023 BILIRUBIN ERA Small Abnormal NEG [facility] Comment on above: Performed By: #### N UM #### [facility] ([id number]) [address] [place] [address] [place] [address] BLOOD/HGB ERA Trace Abnormal NEG [facility] Comment on above: Performed By: #### N UM #### [facility] ([id number]) [address] [place] [address] [place] [address] GLUCOSE ERA Negative Normal NEG [facility] Comment on above: Performed By: #### N UM #### [facility] ([id number]) [address] [place] [address] [place] [address] KETONES ERA Negative Normal NEG [facility] Comment on above: Performed By: #### N UM #### [facility] ([id number]) [address] [place] [address] [place] [address] LEUKOCYTE ESTERASE ERA Small Abnormal NEG Pr [facility] Comment on above: Performed By: #### N UM #### [facility] ([id number]) [address] [place] [address] [place] [address] NITRITE ERA Positive Abnormal NEG [facility] Comment on above: Performed By: #### N UM #### [facility] ([id number]) [address] [place] [address] [place] [address] PH ERA 6.0 Normal 5.0-8.5 [facility] Comment on above: Performed By: #### N UM #### [facility] ([id number]) [address] [place] [address] [place] [address] PROTEIN ERA Negative Normal NEG [facility] Comment on above: Performed By: #### N UM #### [facility] ([id number]) [address] [facility] [place] [address] SPECIFIC GRAVITY ERA 1.025 Normal 1.003-1.035 [facility] Comment on above: Performed By: #### N UM #### [facility] ([id number]) [address] [facility], [place] [address] UROBILINOGEN ERA >=8.0 Normal <1.1 [facility] Comment on above: Performed By: #### N UM #### [facility] ([id number]) [address] [facility], [place] [address] ED Note-Physicianon 07-23-19 ED Note-Physician Basic Information Time Seen: Bernadette Gil PA-C 07/06/2023 15:16 Chief Complaint Pt reports vaginal itching and burning with urination for 1.5 months. Brown vaginal discharge. Pt also reports sinus congestion for 3-4 days. History of Present Illness 33-year-old female presents with brown vaginal discharge for the past 2 months. 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 Nasal congestion sounds viral and can use kwno-ixg-wlaqcdh medications and follow-up family doctor. Afebrile, not [...] prescription medications Follow-up With When Contact Information [facility] Dept: [phone] In 3 days 07/09/2023 EST Additional Instructions: Boubacar MULLINS, Zev Webber, ORS Within 2 to 4 days [address] [place] [address]- Additional Instructions: Patient Education Viral Respiratory Infection, Gmog-Tr-Fphz Attestation I performed a substantive part of [...] No. Hous (more content not included)... Normal [facility] Comment on above: Result Comment: Elec tronically Signed By: Bernadette Gil PA-C\.br\Date and Time Signed: 07/06/23 16:00 EST\.br\Electronically Co-Signed By: Adolfo Hernandez MD\.br\Date and Time Co-Signed: 07/23/23 19:29 EDT Chlam/GC/Trich,NAAon 024 C. trachomatis rRNA BETZAIDA+probe Ql (Unsp spec) Negative Invalid Interpretation Code Negative [facility] Comment on above: Performed By: #### 1 [id number] #### [facility] [address] [place] [address] N. gonorrhoeae rRNA BETZAIDA+probe Ql (Unsp spec) Negative Invalid Interpretation Code Negative [facility] Comment on above: Performed By: #### 1 [id number] #### [facility] [address] [place] [address] T. vaginalis rRNA BETZAIDA+probe Ql (Unsp spec) Negative Invalid Interpretation Code Negative [facility] Comment on above: Result Comment: Perf ormed at: =G [facility] [address] [place] [id number] MD Tamika Eid Performed By: #### 1 [id number] #### [facility] [address] [place] [address] C Urineon 07-08-2023 Bacteria identified Cx Nom [...] Locations R1: This test was performed at: [facility], [address] [place] [address], [phone] , , [facility] Comment on above: Performed By: #### 2 [id number], [id number], [id number] #### [facility] [address] [place] [address] CHEMISTRYOrdered By: SYSTEM SYSTEM on 07-06-2023 Amphetamines [...] for Treatmenton Consent for Treatment [id number] #1.00TIFF Normal [facility] Discharge Instructionson Discharge Instructions [id number] 6#1.00TIFF Normal [facility] ED Clinical Summaryon 2023 ED Clinical Summary [address] [address] ED Clinical Summary Person Information Name: SANGEETA MYLES Sowmya/[facility] Age: 33 Years : 1990 Sex: Female Language: Haitian PCP: NONE, XXXX Marital Status: Single Visit [...] 07/06/2023 16:02:43 07/06/2023 16:02:43 07/06/2023 16:02:43 ADDRESS: [facility] [id number] PHYS DOC NOTES: MEDICAL INFORMATION: Prescriptions Given: Medications to Continue with No Changes Other Medications albuterol (albuterol 0.083% Inh Valerie 3 mL) 3 Milliliter Inhalation every 6 hours as needed for wheezing. PATIENT EDUCATION INFORMATION: Instructions: Viral Respiratory Infection, Bjej-Lf-Haij Follow up: With: Address: When: Boubacar MULLINS, Zev Webber, ORS [address], [facility] [address] [place] [address] Within 2 to 4 days With: Address: When: [facility] Dept: [phone] In 3 days 07/09/2023 DIAGNOSIS: 1:Viral sinusitis; 2:Vaginal discharge; Other viral agents as the cause of diseases classified elsewhere Normal [facility] ED Patient Education Noteon 07-06-2023 ED Patient [...] home: Managing pain and congestion ? 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 ? Cover your mouth when you cough. [...] provider. Document Revised: 07/23/2021 Document Reviewed: 07/23/2021 [employer] Patient Education ? 2022 [place]. com. cn. Normal [facility] ED Patient Summaryon 024 ED Patient Summary [address] [address] Patient Discharge Instructions Person Information Name: SANGEETA MYLES Age: 33 Years Arrival Date: 07/06/2023 15:07:04 Discharge Diagnosis: 1:Viral sinusitis; 2:Vaginal discharge; Other viral agents as the cause of diseases classified elsewhere Primary Care Physician: NONE, XXXX Provider Information Primary Provider: Advanced Collision Technician:None The exam and treatment you received in the Emergency Department were for an urgent problem and are not intended as complete care. It is important that you follow up with a doctor, nurse practitioner, or physician?s assistant pastry chef for ongoing care. If your symptoms become [...] When: Boubacar MULLINS, Zev Webber, ORS [address] [facility], [facility] [address] [place] [address] Within 2 to 4 days With: [facility]: [phone] In 3 days 07/09/2023 In the event that this physician does not participate in your insurance network, please consult with your insurance company to find a nearby participating provider. Patient Education Materials: Viral Respiratory Infection, Xiak-Br-Yutn A MESSAGE TO ALL PATIENTS REGARDING OPIOIDS PRESCRIPTION OPIOIDS: WHAT YOU NEED TO KNOW Prescription opioids can be used to help relieve beugqkpc-sp-castfd pain and are often prescribed following a [...] be strugglin (more content not included)... Normal [facility] No Panel InformationOrdered By: Bella Flower on 07-06-2023 WP No clue cells present No Trichomonas vaginalis present No yeast seen [facility] SEROLOGYOrdered By: Jules Stovereon on 07-06-2023 HCG.beta subunit (U) [Moles/Vol] Negative Normal [facility] Man Sero U BetaHcg Qualon 07-06-2023 HCG.beta subunit (U) [Moles/Vol] Negative Normal [facility] Comment on above: Performed By: #### 2 [id number], [id number], [id number] #### [facility] [address] [place] [address] U Drug Screenon 07-06-2023 Amphetamines Screen method >1000 ng/mL Ql (U) Negative Normal NEGATIVE [facility] Comment on above: Performed By: #### 2 [id number] #### [facility] [address] [place] [address] Barbiturates Screen Ql (U) Negative Normal NEGATIVE [facility] Comment on above: Performed By: #### 2 [id number] #### [facility] [address] [place] [address] Benzodiazepines Ql (U) Negative Normal NEGATIVE [facility] Comment on above: Performed By: #### 2 [id number] #### [facility] [address] [place] [address] Cannabinoids Screen Ql (U) Positive Abnormal NEGATIVE [facility] Comment on above: Performed By: #### 2 [id number] #### [facility] [address] [place] [address] Cocaine Ql (U) Negative Normal NEGATIVE [facility] Comment on above: Performed By: #### 2 881239 #### [facility] [address] [place] [address] Opiates Screen Ql (U) Negative Normal NEGATIVE [facility] Comment on above: Performed By: #### 2 441584 #### [facility] [address] [place] [address] Phencyclidine Screen method >25 ng/mL Ql (U) Negative Normal NEGATIVE [facility] Comment on above: Performed By: #### 2 [id number] #### [facility] [address] [place] [address] UA With Cult Reflexon 2023 Color (U) YELLOW Normal Yellow [facility] Comment on above: Performed By: #### 2 [id number], [id number], 5693348 #### [facility] [address] [place] [address] Glucose (U) [Mass/Vol] Negative Normal Negative [facility] Comment on above: Performed By: #### 2 [id number], 28161504, 4801682 #### [facility] [address] [place] [address] Ketones Ql (U) Negative Normal Negative [facility] Comment on above: Performed By: #### 2 [id number], [id number], 6242419 #### [facility] [address] [place] [address] UA Blood Negative Normal Negative [facility] Comment on above: Performed By: #### 2 1185758, [id number], 8167564 #### [facility] [address] [place] [address] UA Amorph Nelsy Present Normal [facility] Comment on above: Performed By: #### 2 5744210, [id number], 8371124 #### [facility] [address] [place] [address] UA Bacteria TRACE Normal Trace [facility] Comment on above: Performed By: #### 2 [id number], [id number], 4679320 #### [facility] [address] [place] [address] UA Clarity CLEAR Normal Clear [facility] Comment on above: Performed By: #### 2 4774351, 50578828, 4344127 #### [facility] [address] [place] [address] UA Leuk Est 2+ Abnormal Negative [facility] Comment on above: Performed By: #### 2 2368085, 20816334, 7447535 #### [facility] [address] [place] [address] UA Mucous 1+ Normal [facility] Comment on above: Performed By: #### 2 [id number], 18872000, 8054119 #### [facility] [address] [place] [address] UA Nitrite Negative Normal Negative [facility] Comment on above: Performed By: #### 2 3924948, 27270100, 7538384 #### [facility] [address] [place] [address] UA pH 8.5 Invalid Interpretation Code 5.0-9.0 [facility] Comment on above: Performed By: #### 2 4325592, 48348413, 5813992 #### [facility] [address] [place] [address] UA Protein 2+ Abnormal Negative [facility] Comment on above: Performed By: #### 2 2676767, 11848481, 2845185 #### [facility] [address] [place] [address] UA RBC 0-3 Normal 0-3 [facility] Comment on above: Performed By: #### 2 3216215, 86284066, 5464157 #### [facility] [address] [place] [address] UA Spec Desc Clean Catch Normal [facility] Comment on above: Performed By: #### 2 8465014, 37298831, 2870830 #### [facility] [address] [place] [address] UA Spec Grav 1.010 Invalid Interpretation Code 1.005-1.030 [facility] Comment on above: Performed By: #### 2 [id number], 57562089, 3227704 #### [facility] [address] [place] [address] UA Squam Epithelial 3-4 Normal 0-2 [facility] Comment on above: Performed By: #### 2 6297456, 40985733, 4801214 #### [facility] [address] [place] [address] UA Urobilinogen 4.0 EU/dL Abnormal 0.0-1.0 [facility] Comment on above: Performed By: #### 2 5094798, 30948136, 5404888 #### [facility] [address] [place] [address] UA WBC 16-25 Abnormal 0-5 [facility] Comment on above: Performed By: #### 2 9862955, 85881174, 6585149 #### [facility] [address] [place] [address] Urobilinogen (U) [Mass/Vol] Negative Normal Negative [facility] Comment on above: Performed By: #### 2 6479874, 60166225, 5782674 #### [facility] [address] [place], [place] [id number] URINALYSISOrdered By: Jules Ny on 07-06-2023 Color (U) Yellow (07/06/23 3:19 PM) Normal Yellow [facility] UA Auto SS Ketones Ql (U) Negative [...] HCV W/PCR REFLX Reactive Abnormal NRCT [facility] Comment on above: Result Comment: Supplemental testing for HCV RNA by PCR has been ordered per CDC recommendations. Dzljib-rc-faykpb ratio is >=1.00. Performed By: #### A #### [facility] ([id number]) [address], [address] [place] [address] #### 37144-4 #### [facility] ([id number]) [address] [place] [address] HEPATITIS A IGM Non-Reactive Normal NRCT [facility] Comment on above: Performed By: #### A HP #### [facility] ([id number]) [address], [address] [place] [address] #### 10276-9 #### [facility] ([id number]) [address] [place] [address] HEPATITIS B CORE IGM Negative Normal NEG [facility] Comment on above: Performed By: #### A HP #### [facility] ([id number]) [address] [place] [address], [address] [place] [address] #### 34640-7 #### [facility] ([id number]) [address] [place] [address] HEPATITIS B SURF AG Negative Normal NEG [facility] Comment on above: Performed By: #### A HP #### [facility] ([id number]) [address] [place] [address], [address] [place] [address] #### 30902-8 #### [facility] ([id number]) [address] [place] [address] HCV RNA BETZAIDA+probe Qnon 06-17 HCV RNA QUANT PCR [id number] IU/mL Abnormal Undetected [facility] Comment on above: Result Comment: NOTE Result in log IU/mL is 6.72. ADDITIONAL INFORMATION The quantification range of this assay is 15 to 100,000,000 IU/mL (1.18 log to 8.00 log IU/mL). Testing was performed using the valentin HCV test ([employer] Test Performed by: [facility] [address] [place] [address] [employer] Staff Officer: Ruddy Gonzalez M.D. Ph.D.; CLIA# [id number] Performed By: #### A HP #### [facility] ([id number]) [address] [place] [address] #### 70764-9 #### [facility] ([id number]) [address] [facility], [place] [address] Cult,Urineon 12-11-2022 Cult,Urine Specimen Description .URINE Culture Several types of bacteria were identified in this specimen. Further ID and susceptibility testing is generally not helpful in this circumstance and has not been performed. Consider recollection if clinically indicated. Report Status FINAL 12/11/2022 Normal [facility] Comment on above: Performed By: #### P HEP, HIVCMB #### [address] [address] [employer] Operations Staff Officer: Antonino Nova MD #### BMPCMP, BMP, CBC #### [facility] [address] [place] [address] [place] [address] [employer] Staff Officer: Merlin Charles MD UA w/Reflex Cultureon 2022 Bilirubin, SemiQt,Ur Negative Normal NEG [facility] Comment on above: Performed By: #### P HEP, HIVCMB #### [address] [address] [employer] Staff Officer: Antonino Nova MD #### BMPCMP, BMP, CBC #### [facility] [address] [place] [address] [employer] Staff Officer: Merlin Charles MD Blood, Urine Negative Normal NEG [facility] Comment on above: Performed By: #### P HEP, HIVCMB #### [address] [id number] [employer] Staff Officer: Antonino Nova MD #### BMPCMP, BMP, CBC #### [address] [place], [place] 4907[address] [employer] Staff Officer: Merlin Charles MD Clarity (U) Clear Normal CLEAR [facility] Comment on above: Performed By: #### P HEP, HIVCMB #### [address] [address] [employer] Staff Officer: Antonino Nova MD #### BMPCMP, BMP, CBC #### [address] [place], [place] 4843683 [employer] Staff Officer: Merlin Charles MD Color (U) Yellow Normal YEL [facility] Comment on above: Performed By: #### P HEP, HIVCMB #### [address] [address] [employer] Staff Officer: Antonino Nova MD #### BMPCMP, BMP, CBC #### [address] [place], [place] 208[address]83 [employer] Staff Officer: Merlin Charles MD Glucose Ql (U) Negative Normal NEG [facility] Comment on above: Performed By: #### P HEP, HIVCMB #### [address] [address] [employer] Staff Officer: Antonino Nova MD #### BMPCMP, BMP, CBC #### [address] [place], [place] 2950583 [employer] Staff Officer: Merlin Charles MD Ketones Ql (U) Negative Normal NEG [facility] Comment on above: Performed By: #### P HEP, HIVCMB #### [address] [address] [employer] Staff Officer: Antonino Nova MD #### BMPCMP, BMP, CBC #### [address] [place], [place] 2589083 [employer] Staff Officer: Merlin Charles MD Leukocyte esterase Test strip Ql (U) LARGE Abnormal NEG [facility] Comment on above: Performed By: #### P HEP, HIVCMB #### [address] [address] [employer] Staff Officer: Antonino Nova MD #### BMPCMP, BMP, CBC #### [address] [place], [place] 65[address]783 [employer] Staff Officer: Merlin Charles MD Nitrite,Ur Negative Normal NEG [facility] Comment on above: Performed By: #### P HEP, HIVCMB #### [address] [address] [employer] Staff Officer: Antonino Nova MD #### BMPCMP, BMP, CBC #### [address] [place] [address] [employer] Staff Officer: Merlin Charles MD PH,Ur 6.0 Normal 5.0-9.0 [facility] Comment on above: Performed By: #### P HEP, HIVCMB #### [address] [address] [employer] Staff Officer: Antonino Nova MD #### BMPCMP, BMP, CBC #### [address] [place] [address] [employer] Staff Officer: Merlin Charles MD Protein Ql (U) Negative Normal NEG [facility] Comment on above: Performed By: #### P HEP, HIVCMB #### [address] [address] [employer] Staff Officer: Antonino Nova MD #### BMPCMP, BMP, CBC #### [address] [place], [place] 413[address]83 [employer] Staff Officer: Merlin Charles MD Spec. [place],Ur 1.025 High 1.010-1.020 [facility] Comment on above: Performed By: #### P HEP, HIVCMB #### [address] [address] [employer] Staff Officer: Antonino Nova MD #### BMPCMP, BMP, CBC #### [address] [place] [address] [employer] Staff Officer: Merlin Charles MD Urobilinogen,Ur Normal Normal 0.0-1.0 [facility] Comment on above: Performed By: #### P HEP, HIVCMB #### [address] [address] [employer] Staff Officer: Antonino Nova MD #### BMPCMP, BMP, CBC #### [address] [place] [address] [employer] Staff Officer: Merlin Charles MD Urinalysis,Microon 3 Bacteria 3+ Abnormal NONE [facility] Comment on above: Performed By: #### P HEP, HIVCMB #### [place] [address] [employer] Staff Officer: Antonino Nova MD #### BMPCMP, BMP, CBC #### [address] [place] 6[address]283 [employer] Staff Officer: Merlin Charles MD Epithelial cells LM Ql (Urine sed) 0 TO 2 Normal 0-25 [facility] Comment on above: Performed By: #### P HEP, HIVCMB #### [address] [address] [employer] Staff Officer: Antonino Nova MD #### BMPCMP, BMP, CBC #### [address] [place] [address] [employer] Staff Officer: Merlin Charles MD Urine RBC's 0 TO 2 Normal 0-2 [facility] Comment on above: Performed By: #### P HEP, HIVCMB #### [place] [address] [place], [place] 0529[address] [employer] Staff Officer: Antonino Nova MD #### BMPCMP, BMP, CBC #### [facility] [address] [place] [address] [place] [address] [employer] Staff Officer: Merlin Charles MD Urine WBC's 10 TO 20 Normal 0-5 [facility] Comment on above: Performed By: #### P HEP, HIVCMB #### [place] [address] [place], [place] 22624[address] [employer] Staff Officer: Antonino Nova MD #### BMPCMP, BMP, CBC #### [facility] [address] [place] [address] [place] [address] [employer] Staff Officer: Merlin Charles MD Cult,Urineon 09-24-2022 Cult,Urine Specimen Description .VOIDED URINE Culture ESCHERICHIA COLI >592206 CFU/ML STREPTOCOCCI, BETA HEMOLYTIC GROUP B >316334 CFU/ML Report Status FINAL 09/24/2022 SUSCEPTIBILITY Organism [...] Tobramycin <=1 SUSCEPTIBLE Trimethoprim/Sulfa <=20 SUSCEPTIBLE Susceptible [facility] Comment on above: Performed By: #### U RC #### [address] [id number] [employer] Staff Officer: Antonino Nova MD [facility] [address] [place] [address] [place] [address] [employer] Staff Officer: Merlin Charles MD Chlamydia/GC,DNA Ampon 09-23 Chlamydia Probe Negative Normal [facility] Comment on above: Result Comment: CHLA [...] Performed By: #### U ANKITA, UA #### [facility] [address] [place] [address] [employer] Staff Officer: Merlin Charles MD #### SWCGP #### [address] [address] [employer] Staff Officer: Antonino Nova MD Gonorrhea Probe Negative [facility] Comment on above: Result Comment: NEIS [...] Performed By: #### U ANKITA, UA #### [facility] [address] [place] [address] [employer] Staff Officer: Merlin Charles MD #### SWCGP #### [address] [address] [employer] Staff Officer: Antonino Nova MD Trichomonas/Wet Prepon 09-22 Trichomonas/Wet Prep Specimen Descriptio n .VAGINAL SPECIMEN Direct Exam NO YEAST OBSERVED NO TRICHOMONAS SEEN NO CLUE CELLS SEEN Report Status FINAL 09/22/2022 [facility] Comment on above: Performed By: #### P HEP, HIVCMB #### [address] [address] [employer] Staff Officer: Antonino Nova MD #### BMPCMP, BMP, CBC #### [facility] [address] [place], [place] 6214383 [employer] Staff Officer: Merlin Charles MD Urinalysis, Routineon 2022 Bilirubin, SemiQt,Ur Negative Normal NEG [facility] Comment on above: Performed By: #### U MICAO, UA #### [facility] [address] [place], [place] 0197683 [employer] Staff Officer: Merlin Charles MD #### SWCGP #### [address] [address] [employer] Staff Officer: Antonino Nova MD Blood, Urine Negative Normal NEG [facility] Comment on above: Performed By: #### U MICAO, UA #### [facility] [address] [place] [address] [place], [place] 4242383 [employer] Staff Officer: Merlin Charles MD #### SWCGP #### [address] [address] [employer] Staff Officer: Antonino Nova MD Clarity (U) Cloudy Abnormal CLEAR [facility] Comment on above: Performed By: #### U MICAO, UA #### [address] [place], [place] 8451683 [employer] Staff Officer: Merlin Charles MD #### SWCGP #### [address] [address] [employer] Staff Officer: Antonino Nova MD Color (U) Yellow Normal YEL [facility] Comment on above: Performed By: #### U MICAO, UA #### [facility] [address] [place], [place] 5759483 [employer] Staff Officer: Merlin Charles MD #### SWCGP #### [address] [address] [employer] Staff Officer: Antonino Nova MD Glucose Ql (U) Negative Normal NEG [facility] Comment on above: Performed By: #### U MICAO, UA #### [facility] [address] [place] [address] Dr[place], [place] 8749983 [employer] Staff Officer: Merlin Charles MD #### SWCGP #### [address] [address] [employer] Staff Officer: Antonino Nova MD Ketones Ql (U) Negative Normal NEG [facility] Comment on above: Performed By: #### U MICAO, UA #### [facility] [address] [place] [address] Dr[address] [place], [place] 5582783 [employer] Staff Officer: Merlin Charles MD #### SWCGP #### [address] [address] [employer] Staff Officer: Antonino Nova MD Leukocyte esterase Test strip Ql (U) MODERATE Abnormal NEG [facility] Comment on above: Performed By: #### U MICAO, UA #### [facility] [address] [place] [address] [address], [place] 6014683 [employer] Staff Officer: Merlin Charles MD #### SWCGP #### [address] [address] [employer] Staff Officer: Antonino Nova MD Nitrite,Ur Positive Abnormal NEG [facility] Comment on above: Performed By: #### U MICAO, UA #### [facility] [address] [place] [address] [address], [place] 1878183 [employer] Staff Officer: Merlin Charles MD #### SWCGP #### [address] [address] [employer] Staff Officer: Antonino Nova MD PH,Ur 6.0 Normal 5.0-9.0 [facility] Comment on above: Performed By: #### U MICAO, UA #### [address] [place] [address] [employer] Staff Officer: Merlin Charles MD #### SWCGP #### [address] [address] [employer] Staff Officer: Antonino Nova MD Protein Ql (U) Negative Normal NEG [facility] Comment on above: Performed By: #### U MICAO, UA #### [facility] [address] [place] [address] [place] [address] [employer] Staff Officer: Merlin Charles MD #### SWCGP #### [address] [address] [employer] Staff Officer: Antonino Nova MD Spec. [place],Ur 1.025 High 1.010-1.020 [facility] Comment on above: Performed By: #### U MICAO, UA #### [address] [place] [address] [employer] Staff Officer: Merlin Charles MD #### SWCGP #### [address] [address] [employer] Staff Officer: Antonino Nova MD Urobilinogen,Ur Normal Normal NORM [facility] Comment on above: Performed By: #### U MICAO, UA #### [address] [place] [address] [employer] Staff Officer: Merlin Charles MD #### SWCGP #### [address] [address] [employer] Staff Officer: Antonino Nova MD Urinalysis,Microon 3 Bacteria 3+ Abnormal NONE [facility] Comment on above: Performed By: #### U MICAO, UA #### [address] [place], [place] 0305683 [employer] Staff Officer: Merlin Charles MD #### SWCGP #### [address] [place] [place] [address] [employer] Staff Officer: Antonino Nova MD Epithelial cells LM Ql (Urine sed) 0 TO 2 Normal 0-25 [facility] Comment on above: Performed By: #### U KIMO, UA #### [facility] [address] [place], [place] [id number] [employer] Staff Officer: Merlin Charles MD #### SWCGP #### [address] [address] [employer] Staff Officer: Antonino Nova MD Mucus Strands 1+ Abnormal NONE [facility] Comment on above: Performed By: #### U KIMO, UA #### [facility] [address] [place] [address] [address] [place], [place] [id number] [employer] Staff Officer: Merlin Charles MD #### SWCGP #### [address] [address] [employer] Staff Officer: Antonino Nova MD Urine RBC's 0 TO 2 Normal 0-2 [facility] Comment on above: Performed By: #### U KIMO, UA #### [facility] [address] [place] [address] [address] [place], [place] [id number] [employer] Staff Officer: Merlin Charles MD #### SWCGP #### [address] [address] [employer] Officer: Antonino Nova MD Urine WBC's 10 TO 20 Normal 0-5 [facility] Comment on above: Performed By: #### U KIMO, UA #### [facility] [address] [place], [place] [id number] [employer] Staff Officer: Merlin Charles MD #### SWCGP #### [address] [address] [employer] Officer: Antonino Nova MD HCV RNA,Quant,PCRon 09-15-19 23 HCV Quant [id number] IU/mL Normal [facility] Comment on above: Performed By: #### H CVQN #### [facility] [address] [place] [address] [employer] Staff Officer: Antonino Nova MD [facility] [address] [place] [address] [place] [address] [employer] Staff Officer: Merlin Charles MD HCV RNA,Quant Detected Abnormal NOTDET [facility] Comment on above: Result Comment: INTERPRETIVE INFORMATION: [...] (HCT/P). Performed By: #### H CVQN #### [id number] [place] [address] [employer] Officer: Antonino Nova MD [address] [place] [address] [employer] Officer: Merlin Charles MD HCV,RNA Log 6.95 Log IU/mL [facility] Comment on above: Performed By: #### H CVQN #### [id number] [place] [address] [employer] Officer: Antonino Nova MD [facility] [address] [place] [address] [place] [address] [employer] Staff Officer: Merlin Charles MD CBCon 09-13-2022 Erythrocyte distribution width (RBC) [Ratio] 17.7 % High 11.8-14.4 [facility] Comment on above: Performed By: #### P HEP, HIVCMB #### [address] [address] [employer] Staff Officer: Antonino Nova MD #### BMPCMP, BMP, CBC #### [address] [place] [phone] [employer] Staff Officer: Merlin Charles MD Hematocrit (Bld) [Volume fraction] 39.8 % Normal 36.3-47.1 [facility] Comment on above: Performed By: #### P HEP, HIVCMB #### [address] [address] [employer] Staff Officer: Antonino Nova MD #### BMPCMP, BMP, CBC #### [address] [place] [phone] [employer] Officer: Merlin Charles MD Hemoglobin (Bld) [Mass/Vol] 13.5 g/dL Normal 11.9-15.1 [facility] Comment on above: Performed By: #### P HEP, HIVCMB #### [place] [address] [employer] Officer: Antonino Nova MD #### BMPCMP, BMP, CBC #### [address] [place] [phone] [employer] Officer: Merlin Charles MD MCH (RBC) [Entitic mass] 35.6 pg High 25.2-33.5 [facility] Comment on above: Performed By: #### P HEP, HIVCMB #### [address] [id number] [employer] Officer: Antonino Nova MD #### BMPCMP, BMP, CBC #### [address] [place] [phone] [employer] Staff Officer: Merlin Charles MD MCHC (RBC) [Mass/Vol] 33.9 g/dL Normal 28.4-34.[address] [facility] Comment on above: Performed By: #### P HEP, HIVCMB #### [address] [id number] [employer] Officer: Antonino Nova MD #### BMPCMP, BMP, CBC #### [address] [place] [id number] [employer] Officer: Merlin Charles MD MCV (RBC) [Entitic vol] 105.0 fL High 82.6-102.9 [facility] Comment on above: Performed By: #### P HEP, HIVCMB #### [address] [address] [employer] Staff Officer: Antonino Nova MD #### BMPCMP, BMP, CBC #### [address] [place] [phone] [employer] Staff Officer: Merlin Charles MD NRBC Automated 0.0 per 100 WBC Normal 0.0 [facility] Comment on above: Performed By: #### P HEP, HIVCMB #### [place] [address] [employer] Officer: Antonino Nova MD #### BMPCMP, BMP, CBC #### [address] [place] [phone] [employer] Officer: Merlin Charles MD Platelet mean volume (Bld) [Entitic vol] 10.2 fL Normal 8.1-13.5 [facility] Comment on above: Performed By: #### P HEP, HIVCMB #### [address] [phone] [employer] Officer: Antonino Nova MD #### BMPCMP, BMP, CBC #### [address] [place] [phone] [employer] Officer: Merlin Charles MD Platelets (Bld) [#/Vol] 128 10*3/uL Low 138-453 [facility] Comment on above: Performed By: #### P HEP, HIVCMB #### [address] [address] [employer] Officer: Antonino Nova MD #### BMPCMP, BMP, CBC #### [address] [place] [phone] [employer] Staff Officer: Merlin Charles MD RBC (Bld) [#/Vol] 3.79 10*6/uL Low 3.95-5.11 [facility] Comment on above: Performed By: #### P HEP, HIVCMB #### [place] [address] [employer] Staff Officer: Antonino Nova MD #### BMPCMP, BMP, CBC #### [address] [place] [facility] [employer] Staff Officer: Merlin Charles MD WBC (Bld) [#/Vol] 3.7 10*3/uL Normal 3.5-11.3 [facility] Comment on above: Performed By: #### P HEP, HIVCMB #### [place] [address] [employer] Staff Officer: Antonino Nova MD #### BMPCMP, BMP, CBC #### [address] [place] [address] [employer] Staff Officer: Merlin Charles MD Hematocrit (Bld) [Volume fraction] 39.8 % 36.3 - 47.1 % [facility] Hemoglobin (Bld) [Mass/Vol] 13.5 g/dL 11.9 - 15.1 g/dL [facility] Interpretation and review of laboratory results Abnormal [facility] MCH (RBC) [Entitic mass] 35.6 pg High 25.2 - 33.5 pg [facility] MCHC (RBC) [Mass/Vol] 33.9 g/dL 28.4 - 34.8 g/dL [facility] MCV (RBC) [Entitic vol] 105.0 fL High 82.6 - 102.9 fL [facility] NRBC Automated 0.0 0.0 per 100 WBC [facility] Platelet distribution width (Bld) [Ratio] 17.7 % High 11.8 - 14.4 % [facility] Platelet mean volume (Bld) [Entitic vol] 10.2 fL 8.1 - 13.5 fL [facility] Platelets (Bld) [#/Vol] 128 10*3/uL Low [facility] RBC (Bld) [#/Vol] 3.79 10*6/uL Low 3.95 - 5.1 1 m/uL [facility] WBC (Bld) [#/Vol] 3.7 10*3/uL [facility] Comp Metabolic Profon 2022 Albumin [Mass/Vol] 4.1 g/dL Normal 3.5-5.2 [facility] Comment on above: Performed By: #### P HEP, HIVCMB #### [address] [id number] [employer] Staff Officer: Antonino Nvoa MD #### BMPCMP, BMP, CBC #### [address] [place] [address] [employer] Staff Officer: Merlin Charles MD Albumin/Glob Ratio 2.1 Normal 1.0-2.5 [facility] Comment on above: Performed By: #### P HEP, HIVCMB #### [address] [phone] [employer] Staff Officer: Antonino Nova MD #### BMPCMP, BMP, CBC #### [address] [place] [address] [employer] Staff Officer: Merlin Charles MD Alkaline Phos 67 U/L Normal 35-104 [facility] Comment on above: Performed By: #### P HEP, HIVCMB #### [address] [address] [employer] Staff Officer: Antonino Nova MD #### BMPCMP, BMP, CBC #### [address] [place] [address] [employer] Staff Officer: Merlin Charles MD ALT [Catalytic activity/Vol] 41 U/L High 5-33 [facility] Comment on above: Performed By: #### P HEP, HIVCMB #### [address] [address] [employer] Staff Officer: Antonino Nova MD #### BMPCMP, BMP, CBC #### [address] [place] [phone] [employer] Staff Officer: Merlin Charles MD Anion gap [Moles/Vol] 6 mmol/L Low 9-[address] [facility] Comment on above: Performed By: #### P HEP, HIVCMB #### [address] [address] [employer] Staff Officer: Antonino Nova MD #### BMPCMP, BMP, CBC #### [address] [place] [phone] [employer] Staff Officer: Merlin Charles MD AST [Catalytic activity/Vol] 52 U/L High <32 [facility] Comment on above: Performed By: #### P HEP, HIVCMB #### [address] [address] [employer] Staff Officer: Antonino Nova MD #### BMPCMP, BMP, CBC #### [address] [place] [address] [employer] Staff Officer: Merlin Charles MD Bilirubin [Mass/Vol] 0.6 mg/dL Normal 0.3-1.2 [facility] Comment on above: Performed By: #### P HEP, HIVCMB #### [address] [address] [employer] Staff Officer: Antonino Nova MD #### BMPCMP, BMP, CBC #### [address] [place] [phone] [employer] Staff Officer: Merlin Charles MD BUN/CRE Ratio 16 Normal 9-20 [facility] Comment on above: Performed By: #### P HEP, HIVCMB #### [address] [address] [employer] Staff Officer: Antonino Nova MD #### BMPCMP, BMP, CBC #### [address] [place] [phone] [employer] Staff Officer: Merlin Charles MD Calcium [Mass/Vol] 10.0 mg/dL Normal 8.6-10.4 [facility] Comment on above: Performed By: #### P HEP, HIVCMB #### [address] [address] [employer] Staff Officer: Antonino Nova MD #### BMPCMP, BMP, CBC #### [address] [place] [phone] [employer] Staff Officer: Merlin Charles MD Chloride [Moles/Vol] 108 mmol/L High 98-107 [facility] Comment on above: Performed By: #### P HEP, HIVCMB #### [address] [address] [employer] Staff Officer: Antonino Nova MD #### BMPCMP, BMP, CBC #### [address] [place] [address] [employer] Staff Officer: Merlin Charles MD CO2 [Moles/Vol] 28 mmol/L Normal 20-31 [facility] Comment on above: Performed By: #### P HEP, HIVCMB #### [address] [place] [address] [employer] Staff Officer: Antonino Nova MD #### BMPCMP, BMP, CBC #### [facility] [address] [place] [address] [employer] Staff Officer: Merlin Charles MD Creatinine [Mass/Vol] 0.61 mg/dL Normal 0.50-0.[address] [facility] Comment on above: Performed By: #### P HEP, HIVCMB #### [address] [phone] [employer] Staff Officer: Antonino Nova MD #### BMPCMP, BMP, CBC #### [address] [place] [address] [employer] Staff Officer: Merlin Charles MD GFR/1.73 sq M.predicted among non-blacks MDRD (S/P/Bld) [Vol rate/Area] mL/min/{1.73_m2} Normal >60 [facility] Comment on above: Result Comment: These results [...] By: #### P HEP, HIVCMB #### [address] [id number] [employer] Staff Officer: Anotnino Nova MD #### BMPCMP, BMP, CBC #### [facility] [address] [place] [address] [employer] Staff Officer: Merlin Charles MD Glucose [Mass/Vol] 87 mg/dL Normal 70-99 [facility] Comment on above: Performed By: #### P HEP, HIVCMB #### [address] [address] [employer] Staff Officer: Antonino Nova MD #### BMPCMP, BMP, CBC #### [facility] [address] [place] [address] [address] [place] [phone] [employer] Staff Officer: Merlin Charles MD Potassium [Moles/Vol] 5.0 mmol/L Normal 3.7-5.[address] [facility] Comment on above: Performed By: #### P HEP, HIVCMB #### [address] [address] [employer] Staff Officer: Antonino Nova MD #### BMPCMP, BMP, CBC #### [address] [place] [phone] [employer] Staff Officer: Merlin Charles MD Protein [Mass/Vol] 6.1 g/dL Low 6.4-8.3 [facility] Comment on above: Performed By: #### P HEP, HIVCMB #### [address] [address] [employer] Staff Officer: Antonino Nova MD #### BMPCMP, BMP, CBC #### [address] [place] [phone] [employer] Staff Officer: Merlin Charles MD Sodium [Moles/Vol] 142 mmol/L Normal 135-144 [facility] Comment on above: Performed By: #### P HEP, HIVCMB #### [address] [address] [employer] Staff Officer: Antonino Nova MD #### BMPCMP, BMP, CBC #### [address] [place] [phone] [employer] Staff Officer: Merlin Charles MD Urea nitrogen [Mass/Vol] 10 mg/dL Normal 6-20 [facility] Comment on above: Performed By: #### P HEP, HIVCMB #### [facility] [address] [place] [address] [employer] Staff Officer: Antonino Nova MD #### BMPCMP, BMP, CBC #### [facility] [address] [place] [address] [employer] Staff Officer: Merlin Charles MD Comprehensive Metabolic Pane [facility] 09-13-2022 Albumin [Mass/Vol] 4.1 g/dL 3.5 - 5.2 g/dL [facility] Albumin/Globulin [Mass ratio] 2.1 {ratio} 1.0 - 2.5 [facility] ALP [Catalytic activity/Vol] 67 U/L 35 - 104 U/L [facility] ALT [Catalytic activity/Vol] 41 U/L High 5 - 33 U/L [facility] Anion gap [Moles/Vol] 6 mmol/L Low 9 - 17 mmol/L [facility] AST [Catalytic activity/Vol] 52 U/L High NINF - 32 U/L [facility] Bilirubin [Mass/Vol] 0.6 mg/dL 0.3 - 1 .2 mg/dL [facility] Calcium [Mass/Vol] 10.0 mg/dL 8.6 - 10. 4 mg/dL [facility] Chloride [Moles/Vol] 108 mmol/L High 98 - 10 7 mmol/L [facility] CO2 [Moles/Vol] 28 mmol/L 20 - 31 mmol/L [facility] Creatinine [Mass/Vol] 0.61 mg/dL 0.50 - 0.90 mg/dL [facility] GFR/1.73 sq M.predicted MDRD (S/P/Bld) [Vol rate/Area] - PINF [facility] Comment on above: These results are [...] [Mass/Vol] 87 mg/dL 70 - 99 mg/dL [facility] Interpretation and review of laboratory results Abnormal [facility] Potassium [Moles/Vol] 5.0 mmol/L 3.7 - 5.3 mmol/L [facility] Protein [Mass/Vol] 6.1 g/dL Low 6.4 - 8.3 g/dL [facility] Sodium [Moles/Vol] 142 mmol/L 135 - 144 mmol/L [facility] Urea nitrogen [Mass/Vol] 10 mg/dL 6 - 20 mg/dL [facility] Urea nitrogen/Creatinine (Bld) [Mass ratio] 16 9 - 20 [facility] HCG Qualitative, Serumon hCG Qual Negative NEGATIVE [facility] Comment on above: Specimens with hCG l evels near the threshold of the test (25 mIU/mL) may give a negative or indeterminate result. In such cases, another test should be performed with a new specimen in 48-72 hours. If early is suspected clinically in this setting, correlation with quantitative serum b-hCG level is suggested. [employer] has confirmed the use of plasma for this test. This has not been cleared or approved by the U.S. Food and Drug Administration. The FDA has determined that such clearance is not necessary. [facility] HCG Screen, Bloodon 09-14-19 HCG Screen, Blood Negative Normal [facility] Comment on above: Result Comment: Spec imens with hCG levels near the threshold of the test (25 mIU/mL) may give a negative or indeterminate result. In such cases, another test should be performed with a new specimen in 48-72 hours. If early is suspected clinically in this setting, correlation with quantitative serum b-hCG level is suggested. [employer] has confirmed the use of plasma for this test. This has not been cleared or approved by the U.S. Food and Drug Administration. The FDA has determined that such clearance is not necessary. Performed By: #### P HEP, HIVCMB #### [address] [place] [address] [employer] Staff Officer: Antonino Nova MD #### BMPCMP, BMP, CBC #### [facility] [address] [place], [place] 1059783 [employer] Staff Officer: Merlin Charles MD HCV RNA,Quant,PCRon 09-14-19 23 Source .PLASMA Normal [facility] Comment on above: Performed By: #### H CVQN #### [address] [address] [employer] Staff Officer: Antonino Nova MD [facility] [address] [place], [place] [id number] [employer] Staff Officer: Merlin Charles MD HIV Ag/Abon 09-13-2022 HIV Ag/Ab Non-Reactive Normal NR [facility] Comment on above: Result Comment: No l aboratory evidence of HIV infection. If acute HIV infection is suspected, consider testing for HIV-1 RNA. Performed By: #### P HEP, HIVCMB #### [address] [address] [employer] Staff Officer: Antonino Nova MD #### BMPCMP, BMP, CBC #### [address] [place], [place] [phone] [employer] Staff Officer: Merlin Charles MD HIV Screenon 09-13-2022 HIV 1+2 Ab+HIV1 p24 Ag IA Ql Non-Reactive NONREACTIVE [facility] Comment on above: No laboratory eviden ce of HIV infection. If acute HIV infection is suspected, consider testing for HIV-1 RNA. [facility] Hepatitis Acute Jonnie 09-13 Hep A Ab,IgM Non-Reactive Normal NR [facility] Comment on above: Performed By: #### P HEP, HIVCMB #### [address] [address] [employer] Staff Officer: Antonino Nova MD #### BMPCMP, BMP, CBC #### [address] [place] [address] [employer] Staff Officer: Merlin Charles MD Hep B Core Ab,IgM Non-Reactive Normal [facility] Comment on above: Performed By: #### P HEP, HIVCMB #### [id number] [place] [address] [employer] Staff Officer: Antonino Nova MD #### BMPCMP, BMP, CBC #### [address] [place], [place] 0862683 [employer] Staff Officer: Merlin Charles MD Hep B Surf Ag Non-Reactive Normal [facility] Comment on above: Performed By: #### P HEP, HIVCMB #### [address] [address] [employer] Staff Officer: Antonino Nova MD #### BMPCMP, BMP, CBC #### [address] [place], [place] [id number] [employer] Staff Officer: Merlin Charles MD Hep C Ab Reactive Abnormal [facility] Comment on above: Result Comment: The [...] By: #### P HEP, HIVCMB #### [address] [address] [employer] Officer: Antonino Nova MD #### BMPCMP, BMP, CBC #### [address] [place], [place] [id number] [employer] Staff Officer: Merlin Charles MD Hepatitis Panel, [facility] HAV IgM Ql (S) Non-Reactive NONREACTIVE [facility] HBV core IgM Ql (S) Non-Reactive NONREACTIVE [facility] HBV surface Ag IA Ql Non-Reactive NONREACTIVE [facility] HCV Ab IA Ql Reactive Abnormal NONREACTIVE [facility] Comment on above: The hepatitis C [...] Interpretation and review of laboratory results Abnormal [facility] Comp Metabolic Addonon 04-20 Albumin [Mass/Vol] 4.5 g/dL Normal 3.5-5.2 [facility] Comment on above: Performed By: #### P HEP, HIVCMB #### [address] [id number] [employer] Staff Officer: Antonino Nova MD #### BMPCMP, BMP, CBC #### [facility] [address] [place] [address] [place] [address] [employer] Officer: Merlin Charles MD Albumin/Glob Ratio 2.0 Normal 1.0-2.5 [facility] Comment on above: Performed By: #### P HEP, HIVCMB #### [address] 1916[address] [employer] Officer: Antonino Nova MD #### BMPCMP, BMP, CBC #### [address] [place] [address] [employer] Staff Officer: Merlin Charles MD Alkaline Phos 81 U/L Normal 35-104 [facility] Comment on above: Performed By: #### P HEP, HIVCMB #### [address] [id number] [employer] Officer: Antonino Nova MD #### BMPCMP, BMP, CBC #### [facility] [address] [place], [place] 9621883 [employer] Staff Officer: Merlin Charles MD ALT [Catalytic activity/Vol] 106 U/L High 5-33 [facility] Comment on above: Performed By: #### P HEP, HIVCMB #### [address] [id number] [employer] Officer: Antonino Nova MD #### BMPCMP, BMP, CBC #### [address] [place], [place] [phone] [employer] Officer: Merlin Charles MD AST [Catalytic activity/Vol] 77 U/L High <32 [facility] Comment on above: Performed By: #### P HEP, HIVCMB #### [address] [id number] [employer] Officer: Antonino Nova MD #### BMPCMP, BMP, CBC #### [address] [place], [place] 5521183 [employer] Officer: Merlin Charles MD Bilirubin [Mass/Vol] 0.6 mg/dL Normal 0.3-1.2 [facility] Comment on above: Performed By: #### P HEP, HIVCMB #### [address] [id number] [employer] Officer: Antonino Nova MD #### BMPCMP, BMP, CBC #### [address] [place], [place] 3509483 [employer] Officer: Merlin Charles MD Protein [Mass/Vol] 6.7 g/dL Normal 6.4-8.3 [facility] Comment on above: Performed By: #### P HEP, HIVCMB #### [address] [id number] [employer] Officer: Antonino Nova MD #### BMPCMP, BMP, CBC #### [address] [place], [place] 2487383 [employer] Officer: Merlin Charles MD HCV RNA,Quant,PCRon 04-20-20 HCV Quant 1,330,000 IU/mL Normal [facility] Comment on above: Performed By: #### P HEP, HIVCMB #### [address] [address] [employer] Officer: Antonino Nova MD #### BMPCMP, BMP, CBC #### [facility] [address] [place], [place] 7288583 [employer] Officer: Merlin Charles MD HCV RNA,Quant Detected Abnormal NOTDET [facility] Comment on above: Result Comment: HCV RNA [...] By: #### P HEP, HIVCMB #### [address] [address] [employer] Officer: Antonino Nova MD #### BMPCMP, BMP, CBC #### [facility] [address] [place], [place] 1485283 [employer] Officer: Merlin Charles MD HCV,RNA Log 6.12 Log IU/mL [facility] Comment on above: Performed By: #### P HEP, HIVCMB #### [address] [address] [employer] Officer: Antonino Nova MD #### BMPCMP, BMP, CBC #### [facility] [address] [place], [place] [id number] [employer] Officer: Merlin Charles MD Basic Metabolic Profon 04-19 Anion gap [Moles/Vol] 7 mmol/L Low - [facility] Comment on above: Performed By: #### P HEP, HIVCMB #### [address] [id number] [employer] Officer: Antonino Nova MD #### BMPCMP, BMP, CBC #### [facility] [address] [place] [address] [employer] Officer: Merlin Charles MD BUN/CRE Ratio 20 Normal - [facility] Comment on above: Performed By: #### P HEP, HIVCMB #### [address] [id number] [employer] Officer: Antonino Nova MD #### BMPCMP, BMP, CBC #### [facility] [address] [place], [place] [id number] [employer] Officer: Merlin Charles MD Calcium [Mass/Vol] 9.9 mg/dL Normal 8.6-10.4 [facility] Comment on above: Performed By: #### P HEP, HIVCMB #### [address] [id number] [employer] Staff Officer: Antonino Nova MD #### BMPCMP, BMP, CBC #### [facility] [address] [place], [place] [id number] [employer] Staff Officer: Merlin Charles MD Chloride [Moles/Vol] 106 mmol/L Normal 98-107 [facility] Comment on above: Performed By: #### P HEP, HIVCMB #### [address] [address] [employer] Staff Officer: Antonino Nova MD #### BMPCMP, BMP, CBC #### [facility] [address] [place], [place] [id number] [employer] Staff Officer: Merlin Charles MD CO2 [Moles/Vol] 29 mmol/L Normal 20-31 [facility] Comment on above: Performed By: #### P HEP, HIVCMB #### [facility] [address] [place], [place] [id number] [employer] Staff Officer: Antonino Nova MD #### BMPCMP, BMP, CBC #### [facility] [address] [place], [place] [id number] [employer] Staff Officer: Merlin Charles MD Creatinine [Mass/Vol] 0.79 mg/dL Normal 0.50-0.[address] [facility] Comment on above: Performed By: #### P HEP, HIVCMB #### [address] [id number] [employer] Staff Officer: Antonino Nova MD #### BMPCMP, BMP, CBC #### [facility] [address] [place], [place] [id number] [employer] Staff Officer: Merlin Charles MD GFR/1.73 sq M.predicted among non-blacks MDRD (S/P/Bld) [Vol rate/Area] mL/min/{1.73_m2} Normal >60 [facility] Comment on above: Result Comment: Effective Feb [...] By: #### P HEP, HIVCMB #### [facility] [address] [place] [address] [id number] [employer] Staff Officer: Antonino oNva MD #### BMPCMP, BMP, CBC #### [address] [place], [place] [phone] [employer] Staff Officer: Merlin Charles MD Glucose [Mass/Vol] 98 mg/dL Normal 70-99 [facility] Comment on above: Performed By: #### P HEP, HIVCMB #### [address] [address] [employer] Staff Officer: Antonino Nova MD #### BMPCMP, BMP, CBC #### [address] [place], [place] [phone] [employer] Staff Officer: Merlin Charles MD Potassium [Moles/Vol] 4.6 mmol/L Normal 3.7-5.[address] [facility] Comment on above: Performed By: #### P HEP, HIVCMB #### [address] [id number] [employer] Staff Officer: Antonino Nova MD #### BMPCMP, BMP, CBC #### [address] [place], [place] [phone] [employer] Officer: Merlin Charles MD Sodium [Moles/Vol] 142 mmol/L Normal 135-144 [facility] Comment on above: Performed By: #### P HEP, HIVCMB #### [address] [address] [employer] Staff Officer: Antonino Nova MD #### BMPCMP, BMP, CBC #### [address] [place], [place] [phone] [employer] Officer: Merlin Charles MD Urea nitrogen [Mass/Vol] 16 mg/dL Normal 6-20 [facility] Comment on above: Performed By: #### P HEP, HIVCMB #### [address] [address] [employer] Staff Officer: Antonino Nova MD #### BMPCMP, BMP, CBC #### [address] [place], [place] [id number] [employer] Staff Officer: Merlin Charles MD CBCon 04-19-2022 Erythrocyte distribution width (RBC) [Ratio] 15.2 % High 11.8-14.4 [facility] Comment on above: Performed By: #### P HEP, HIVCMB #### [address] [id number] [employer] Staff Officer: Antonino Nova MD #### BMPCMP, BMP, CBC #### [address] [place], [place] [phone] [employer] Officer: Merlin Charles MD Hematocrit (Bld) [Volume fraction] 41.4 % Normal 36.3-47.1 [facility] Comment on above: Performed By: #### P HEP, HIVCMB #### [address] [address] [employer] Staff Officer: Antonino Nova MD #### BMPCMP, BMP, CBC #### [address] [place] [address] [employer] Officer: Merlin Charles MD Hemoglobin (Bld) [Mass/Vol] 13.3 g/dL Normal 11.9-15.1 [facility] Comment on above: Performed By: #### P HEP, HIVCMB #### [address] [address] [employer] Staff Officer: Antonino Nova MD #### BMPCMP, BMP, CBC #### [address] [place] [address] [employer] Officer: Merlin Charles MD MCH (RBC) [Entitic mass] 33.8 pg High 25.2-33.5 [facility] Comment on above: Performed By: #### P HEP, HIVCMB #### [address] [address] [employer] Staff Officer: Antonino Nova MD #### BMPCMP, BMP, CBC #### [address] [place] [phone] [employer] Staff Officer: Merlin Charles MD MCHC (RBC) [Mass/Vol] 32.1 g/dL Normal 28.4-34.[address] [facility] Comment on above: Performed By: #### P HEP, HIVCMB #### [address] [id number] [employer] Staff Officer: Antonino Nova MD #### BMPCMP, BMP, CBC #### [address] [place] [phone] [employer] Officer: Merlin Charles MD MCV (RBC) [Entitic vol] 105.3 fL High 82.6-102.9 [facility] Comment on above: Performed By: #### P HEP, HIVCMB #### [place] [address] [employer] Officer: Antonino Nova MD #### BMPCMP, BMP, CBC #### [address] [place] [phone] [employer] Officer: Merlin Charles MD NRBC Automated 0.0 per 100 WBC Normal 0.0 [facility] Comment on above: Performed By: #### P HEP, HIVCMB #### [place] [address] [employer] Officer: Antonino Nova MD #### BMPCMP, BMP, CBC #### [address] [place] [phone] [employer] Staff Officer: Merlin Charles MD Platelet mean volume (Bld) [Entitic vol] 9.1 fL Normal 8.1-13.5 [facility] Comment on above: Performed By: #### P HEP, HIVCMB #### [address] [address] [employer] Officer: Antonino Nova MD #### BMPCMP, BMP, CBC #### [address] [place], [place] [phone] [employer] Officer: Merlin Charles MD Platelets (Bld) [#/Vol] 203 10*3/uL Normal 138-453 [facility] Comment on above: Performed By: #### P HEP, HIVCMB #### [address] [address] [employer] Staff Officer: Antonino Nova MD #### BMPCMP, BMP, CBC #### [address] [place] [phone] [employer] Staff Officer: Merlin Charles MD RBC (Bld) [#/Vol] 3.93 10*6/uL Low 3.95-5.11 [facility] Comment on above: Performed By: #### P HEP, HIVCMB #### [address] [address] [employer] Staff Officer: Antonino Nova MD #### BMPCMP, BMP, CBC #### [address] [place] [phone] [employer] Officer: Merlin Charles MD WBC (Bld) [#/Vol] 4.1 10*3/uL Normal 3.5-11.3 [facility] Comment on above: Performed By: #### P HEP, HIVCMB #### [address] [address] [employer] Staff Officer: Antonino Nova MD #### BMPCMP, BMP, CBC #### [address] [place], [place] [phone] [employer] Officer: Merlin Charles MD HCV RNA,Quant,PCRon 04-19-20 22 Source .PLASMA Normal [facility] Comment on above: Performed By: #### P HEP, HIVCMB #### [address] [address] [employer] Staff Officer: Antonino Nova MD #### BMPCMP, BMP, CBC #### [address] [place], [place] [phone] [employer] Staff Officer: Merlin Charles MD HIV Ag/Abon 04-19-2022 HIV Ag/Ab Non-Reactive Normal [facility] Comment on above: Result Comment: No l aboratory evidence of HIV infection. If acute HIV infection is suspected, consider testing for HIV-1 RNA. Performed By: #### P HEP, HIVCMB #### [address] [address] [employer] Staff Officer: Antonino Nova MD #### BMPCMP, BMP, CBC #### [address] [place] [address] [employer] Staff Officer: Merlin Charles MD Hepatitis Acute [facility] 04-19 Hep A Ab,IgM Non-Reactive Normal [facility] Comment on above: Performed By: #### P HEP, HIVCMB #### [address] [address] [employer] Staff Officer: Antonino Nova MD #### BMPCMP, BMP, CBC #### [address] [place] [address] [employer] Staff Officer: Merlin Charles MD Hep B Core Ab,IgM Non-Reactive Normal [facility] Comment on above: Performed By: #### P HEP, HIVCMB #### [address] [address] [employer] Staff Officer: Antonino Nova MD #### BMPCMP, BMP, CBC #### [address] [place] [address] [employer] Staff Officer: Merlin Charles MD Hep B Surf Ag Non-Reactive Normal [facility] Comment on above: Performed By: #### P HEP, HIVCMB #### [facility] [address] [place], [place] [phone] [employer] Staff Officer: Antonino Nova MD #### BMPCMP, BMP, CBC #### [facility] [address] [place] [address] [place] [address] [employer] Staff Officer: Merlin Charles MD Hep C Ab Reactive Abnormal [facility] Comment on above: Result Comment: The [...] Performed By: #### P HEP, HIVCMB #### [place] [address] [place], [place] [id number] [employer] Staff Officer: Antonino Nova MD #### BMPCMP, BMP, CBC #### [address] [place] [address] [employer] Staff Officer: Merlin Charles MD [facility] Hematocrit (Bld) [Volume fraction] 39.5 % 36.3 - 47.1 % [facility] Hemoglobin (Bld) [Mass/Vol] 12.6 g/dL 11.9 - 15.1 g/dL [facility] Interpretation and review of laboratory results Abnormal [facility] MCH (RBC) [Entitic mass] 32.6 pg 25.2 - 33.5 pg [facility] MCHC (RBC) [Mass/Vol] 31.9 g/dL 28.4 - 34.8 g/dL [facility] MCV (RBC) [Entitic vol] 102.3 fL 82.6 - 102.9 fL [facility] NRBC Automated 0.0 0.0 per 100 WBC [facility] Platelet distribution width (Bld) [Ratio] 14.9 % High 11.8 - 14.4 % [facility] Platelet mean volume (Bld) [Entitic vol] 9.7 fL 8.1 - 13.5 fL [facility] Platelets (Bld) [#/Vol] 175 10*3/uL [facility] RBC (Bld) [#/Vol] 3.86 10*6/uL Low 3.95 - 5.1 1 m/uL [facility] WBC (Bld) [#/Vol] 3.4 10*3/uL Low [facility] Comprehensive Metabolic Pane elvin 11-09-2021 Albumin [Mass/Vol] 4.7 g/dL 3.5 - 5.2 g/dL [facility] Albumin/Globulin [Mass ratio] 2.5 {ratio} [facility] ALP (Bld) [Catalytic activity/Vol] 76 U/L 35 - 104 U/L [facility] ALT [Catalytic activity/Vol] 50 U/L High 5 - 33 U/L [facility] Anion gap [Moles/Vol] 10 mmol/L 9 - 17 mmol/L [facility] AST [Catalytic activity/Vol] 40 U/L High <32 [facility] Bilirubin [Mass/Vol] 0.55 mg/dL 0.3 - 1 .2 mg/dL [facility] Calcium [Mass/Vol] 10.4 mg/dL 8.6 - 10. 4 mg/dL [facility] Chloride [Moles/Vol] 107 mmol/L 98 - 10 7 mmol/L [facility] CO2 [Moles/Vol] 25 mmol/L 20 - 31 mmol/L [facility] Creatinine [Mass/Vol] 0.72 mg/dL 0.50 - 0.90 mg/dL [facility] Free PSA/Total PSA [Mass fraction] 6.6 g/dL 6.4 - 8.3 g/dL [facility] GFR >60 >60 mL/min [facility] GFR Non- >60 >60 mL/min [facility] Glucose [Mass/Vol] 76 mg/dL 70 - 99 mg/dL [facility] Interpretation and review of laboratory results Abnormal [facility] Potassium [Moles/Vol] 3.9 mmol/L 3.7 - 5.3 mmol/L [facility] Sodium [Moles/Vol] 142 mmol/L 135 - 144 mmol/L [facility] Urea nitrogen (BldV) [Mass/Vol] 12 mg/dL 6 - 20 mg/dL [facility] Urea nitrogen/Creatinine (Bld) [Mass ratio] 17 [facility] HCG Qualitative, Serumon hCG Qual Negative NEGATIVE [facility] Comment on above: Specimens with hCG l evels near the threshold of the test (25 mIU/mL) may give a negative or indeterminate result. In such cases, another test should be performed with a new specimen in 48-72 hours. If early is suspected clinically in this setting, correlation with quantitative serum b-hCG level is suggested. [facility] has confirmed the use of plasma for this test. This has not been cleared or approved by the U.S. Food and Drug Administration. The FDA has determined that such clearance is not necessary. [facility] HIV Screenon 11-09-2021 HIV Ag/Ab Non-Reactive NONREACTIVE [facility] Comment on above: No laboratory eviden ce of HIV infection. If acute HIV infection is suspected, consider testing for HIV-1 RNA. [facility] Hepatitis Panel, Acuteon HAV IgM IA Qn (S) Non-Reactive NONREACTIVE [facility] Hep B Core Ab, IgM Non-Reactive NONREACTIVE [facility] Hepatitis B Surface Ag Non-Reactive NONREACTIVE [facility] Hepatitis C Ab Reactive Abnormal NONREACTIVE [facility] Comment on above: The hepatitis C [...] Interpretation and review of laboratory results Abnormal [facility] Laboratory - Chemistry and C hemistry - challengeon 11-09-2021 GFR/1.73 sq M.predicted MDRD (S/P/Bld) [Vol rate/Area] [facility] Comment on above: Average GFR for 20-2 9 years old: 116 mL/min/1.73sq m Chronic Kidney Disease: <60 mL/min/1.73sq m Kidney failure: <15 mL/min/1.73sq m eGFR calculated using average adult body mass. Additional eGFR calculator available at: http://[email or web address]_[email or web address] Stage 1: Some kidney damage normal GFR Stage 2: Mild kidney damage GFR 60-89 Stage 3: Moderate kidney damage GFR 30-59 Stage 4: Severe kidney damage GFR 15-29 Stage 5: Severe kidney damage GFR <15 ESRD - chronic treatment by dialysis or transplant Microscopic Urinalysison - [facility] Bacteria, UA 4+ Abnormal None [facility] Epithelial Cells UA 2 TO [address] [facility] Interpretation and review of laboratory results Abnormal [facility] Mucus, UA 1+ Abnormal None [facility] RBC, UA 0 TO 2 [facility] WBC, UA 20 TO 50 [facility] Urinalysis with Reflex to Cu ltureon 10-27-2021 Bilirubin Urine SMALL Abnormal NEGATIVE [facility] Color, UA Yellow Yellow [facility] Glucose, Ur Negative NEGATIVE [facility] Interpretation and review of laboratory results Abnormal [facility] Ketones Ql (U) Negative NEGATIVE [facility] Leukocyte esterase Test strip Ql (U) MODERATE Abnormal NEGATIVE [facility] Nitrite, Urine Negative NEGATIVE [facility] pH, UA 6.5 [facility] Protein, UA TRACE Abnormal NEGATIVE [facility] Specific [place], UA 1.025 High [facility] Turbidity UA SLIGHTLY CLOUDY Abnormal Clear [facility] Urine Hgb Negative NEGATIVE [facility] Urobilinogen, Urine Normal Normal [facility] Microscopic Urinalysison - [facility] Bacteria, UA 1+ Abnormal None [facility] Epithelial Cells UA 5 TO 10 [facility] Interpretation and review of laboratory results Abnormal [facility] RBC, UA 0 TO 2 [facility] WBC, UA 5 TO 10 [facility] Urinalysis with Reflex to Cu ltureon 10-07-2021 Bilirubin Urine Negative NEGATIVE [facility] Color, UA Yellow Yellow [facility] Glucose, Ur Negative NEGATIVE [facility] Interpretation and review of laboratory results Abnormal [facility] Ketones Ql (U) Negative NEGATIVE [facility] Leukocyte esterase Test strip Ql (U) MODERATE Abnormal NEGATIVE [facility] Nitrite, Urine Negative NEGATIVE [facility] pH, UA 5.5 [facility] Protein, UA Negative NEGATIVE [facility] Specific [place], UA 1.025 High [facility] Turbidity UA Clear Clear [facility] Urine Hgb Negative NEGATIVE [facility] Urobilinogen, Urine Normal Normal [facility] SEROLOGYOrdered By: Suly Raman on 07-24-2021 HCG.beta subunit (U) [Moles/Vol] Negative Normal [facility] Man Sero Tobacco Screening.on 022 Adult depression screening assessment Yes [facility] [place] 250 DO Work Phone: Tobacco use status CPHS a) Yes [facility] [place] 250 DO Work Phone: Tobacco Screening. Yes [facility] [place] 250 DO Work Phone: Tobacco Screening. 3-Nearly every day [facility] [place] 250 DO Work Phone: Tobacco Screening. 2-More than half the days [facility] [place] 250 DO Work Phone: Tobacco Screening. 0-Not at all [facility] 250 DO Work Phone: Tobacco Screening. Very Difficult [facility] 250 DO Work Phone: XR [...] by: Janine DURON Date: 2021-07-04 02:09 Normal [facility] Vital Signs Date Time Vital Sign Value Performing Clinician Facility 07-06-2023 15:10-0500 Body temperature 98.42 [degF] Adolfo Hernandez [facility] 07-06-2023 15:10-0500 Diastolic blood pressure 69 mm[Hg] Adolfo Hernandez [facility] 07-06-2023 15:10-0500 Heart rate 102 /min Adolfo Hernandez [facility] 07-06-2023 15:10-0500 Respiratory rate 16 /min Adolfo Hernandez [facility] 07-06-2023 15:10-0500 SaO2% (BldA) [Mass fraction] 100 % Adolfo Hernandez [facility] 07-06-2023 15:10-0500 Systolic blood pressure 100 mm[Hg] Adolfo Hernandez [facility] 07-24-2021 17:25-0400 Body temperature 96.98 [degF] Zev Hamlin [facility] 07-24-2021 17:25-0400 Heart rate 66 /min Zev Boubacar [facility] 07-24-2021 17:25-0400 Respiratory rate 110 /min Zev Hamlin [facility] 07-24-2021 17:25-0400 SaO2% (BldA) [Mass fraction] 100 % Zev Hamlin [facility] 07-24-2021 17:25-0400 Systolic blood pressure 68 mm[Hg] Zev Hamlin [facility] 07-24-2021 17:20-0400 Body temperature 97.7 [degF] Zev Hamlin [facility] 07-24-2021 17:20-0400 Diastolic blood pressure 63 mm[Hg] Zev Hamlin [facility] 07-24-2021 17:20-0400 Heart rate 65 /min Zev Hamlin [facility] 07-24-2021 17:20-0400 Respiratory rate 11 /min Zev Hamlin [facility] 07-24-2021 17:20-0400 SaO2% (BldA) [Mass fraction] 100 % Zev Hamlin [facility] 07-24-2021 17:20-0400 Systolic blood pressure 106 mm[Hg] Zev Hamlin [facility] 07-24-2021 17:05-0400 Diastolic blood pressure 70 mm[Hg] Zev Hamlin [facility] 07-24-2021 17:05-0400 Heart rate 78 /min Zev Hamlin [facility] 07-24-2021 17:05-0400 Respiratory rate 11 /min Zev Hamlin [facility] 07-24-2021 17:05-0400 SaO2% (BldA) [Mass fraction] 100 % Zev Hamlin [facility] 07-24-2021 17:05-0400 Systolic blood pressure 109 mm[Hg] Zev Hamlin [facility] 07-24-2021 17:00-0400 Diastolic blood pressure 54 mm[Hg] Zev Hamlin [facility] 07-24-2021 16:53-0400 Body temperature 97.52 [degF] Zev Hamlin [facility] 07-24-2021 11:18-0400 Blood Pressure Location Zev Hamlin [facility] 07-24-2021 11:18-0400 BP/Pulse Patient Position Zev Hamlin [facility] 07-24-2021 11:18-0400 Mean blood pressure 78 mm[Hg] Zev Hamlin [facility] 07-24-2021 11:17-0400 Blood Pressure Location Zev Hamlin [facility] 07-24-2021 11:17-0400 Body temperature 98.24 [degF] Zev Hamlin [facility] 07-24-2021 11:17-0400 BP/Pulse Patient Position Zev Hamlin [facility] 07-24-2021 11:17-0400 Mean blood pressure 84 mm[Hg] Zev Hamlin [facility] 07-24-2021 11:17-0400 Respiratory rate 16 /min Zev Hamlin [facility] 07-24-2021 11:17-0400 Heart rate 72 /min Zev Hamlin [facility] 07-09-2021 09:07-0500 Diastolic blood pressure 62 mm[Hg] No PCP None [facility] 250 DO Work Phone: 07-09-2021 09:07-0500 Systolic blood pressure 102 mm[Hg] No PCP None [facility] 250 DO Work Phone: 07-09-2021 09:01-0500 Body height 160.02 cm No PCP None [facility] [place] 250 DO Work Phone: 07-09-2021 09:01-0500 Body mass index (BMI) [Ratio] 27.1 kg/m2 No PCP None [facility] 250 DO Work Phone: 07-09-2021 09:01-0500 Body surface area Derived from formula 1.73 m2 No PCP None [facility] [place] 250 DO Work Phone: 07-09-2021 09:01-0500 Body weight 69.4 kg No PCP None [facility] 250 DO Work Phone: 07-09-2021 09:01-0500 Diastolic blood pressure 62 mm[Hg] No PCP None [facility] 250 DO Work Phone: 07-09-2021 09:01-0500 Heart rate 59 /min No PCP None [facility] 250 DO Work Phone: 07-09-2021 09:01-0500 Systolic blood pressure 104 mm[Hg] No PCP None [facility] 250 DO Work Phone: 07-09-2021 09:01-0500 18 1 No PCP None [facility] 250 DO Work Phone: Comment on above: PHQ-9 TS Encounters Encounter Date Encounter Type Care Provider Facility Start: 10-24-2023 ambulatory [facility] Facility:[facility] Start: 10-23-2023 End: 10-23-2023 Emergency department patient visit NO PCP NO PCP [facility] Start: 09-08-2023 End: 09-08-2023 ambulatory NO PCP NO PCP [facility] Start: 09-08-2023 Encounter for genera l adult medical examination without abnormal findings NO NO PCP [facility] Start: 08-19-2023 End: 08-19-2023 Emergency department patient visit NO PCP NO PCP [facility] Start: 07-06-2023 End: 07-06-2023 Emergency department patient visit Adolfo Hernandez [facility] Start: 06-17-2023 End: 06-17-2023 ambulatory BP GARSIA [facility] Start: 02-16-2023 ambulatory [facility] Start: 01-19-2023 ambulatory [facility] Start: 01-06-2023 ambulatory [facility] Start: 12-10-2022 End: 12-11-2022 [facility] Start: 11-04-2022 ambulatory [facility] Start: 09-22-2022 End: 09-23-2022 ambulatory [facility] Start: 09-13-2022 End: 09-14-2022 ambulatory [facility] Start: 09-13-2022 End: 09-13-2022 Subsequent hospital visit by physician [facility] Start: 09-10-2022 End: 09-11-2022 [facility]ulatory [facility] Start: 09-10-2022 End: 09-10-2022 Subsequent hospital visit by physician [facility] Start: 04-19-2022 End: 04-20-2022 ambulatory [facility] Start: 11-09-2021 End: 11-09-2021 Subsequent hospital visit by physician [facility] Start: 10-27-2021 End: 10-27-2021 Subsequent hospital visit by physician [facility] Start: 10-06-2021 End: 10-06-2021 Subsequent hospital visit by physician [facility] Start: 07-24-2021 End: 07-24-2021 Admission to same day [facility] Zev Hamlin [facility] Start: 07-09-2021 Office consultation new/estab patient 60 min No PCP [facility] Work Phone: Start: 07-04-2021 End: 07-04-[address] RADHA MOE Facility: Start: 06-29-2021 End: 10-15-2021 Recurring Zev Hamlin [facility] Patient encounter status No PCP None [facility] 250 DO Work Phone: Procedures Date Procedure Procedure Detail Performing Clinician Start: 09-13-2022 Antibody hiv-1&hiv-2 single result Dez Jackie SAW STRAIGHTENER - SENIOR ADMINISTRATOR SUPPORT Work Phone: Start: 09-13-2022 Comprehensive metabo lic panel Dez Jackie SAW STRAIGHTENER - SENIOR ADMINISTRATOR SUPPORT Work Phone: Start: 11-09-2021 Antibody hiv-1&hiv-2 single result Dez Jackie SAW STRAIGHTENER - SENIOR ADMINISTRATOR SUPPORT Work Phone: Start: 11-09-2021 Comprehensive metabo lic panel Dez Jackie SAW STRAIGHTENER - SENIOR ADMINISTRATOR SUPPORT Work Phone: Start: 10-27-2021 Urinalysis microscop ic only Dez Jackie SAW STRAIGHTENER - SENIOR ADMINISTRATOR SUPPORT Work Phone: Start: 10-27-2021 Urnls dip stick/tabl et rgnt auto w/o microscopy Dez Jackie SAW STRAIGHTENER - SENIOR ADMINISTRATOR SUPPORT Work Phone: Start: 10-06-2021 Urinalysis microscop ic only Dez Jackie SAW STRAIGHTENER - SENIOR ADMINISTRATOR SUPPORT Work Phone: Start: 10-06-2021 Urnls dip stick/tabl et rgnt auto w/o microscopy Dez Jackie SAW STRAIGHTENER - SENIOR ADMINISTRATOR SUPPORT Work Phone: section No PCP None section [...] Influenza vaccination Flu vacc ine (Season Ended) [facility] Start: 01-06-2022 Screening for malign ant neoplasm of cervix [facility] Start: 12-31-2021 Influenza [facility] Start: 11-25-2021 FUV, Provider: Ruddy Garcia, Status: Pen, Time: 3:00 PM FUV, Provider: Ruddy Garcia, Status: Pen, Time: 3:00 PM [facility] [employer] DO Work Phone: Start: 07-15-2021 ECHO, Provider: DAJA CASTROI ULTRASOUND 01,[id number], Status: Pen, Time: 11:30 AM ECHO, Provider: PRATIMA CASTROI ULTRASOUND 01,[id number], Status: Pen, Time: 11:30 AM [facility] [employer] 250 DO Work Phone: Start: 07-15-2021 STRESS NUC, Provider : PRATIMA CASTROI NUCLEAR 01,[id number], Status: Pen, Time: 11:30 AM STRESS NUC, Provider: PRATIMA HHVI NUCLEAR 01,[id number], Status: Pen, Time: 11:30 AM [facility] [place] 250 DO Work Phone: Start: 01-06-2013 Screening for malign ant neoplasm of cervix Pap smear [facility] [employer] Start: 01-06-2011 DTaP/Tdap/Td vaccine (1 - Tdap) DTaP/Tdap/Td vaccine (1 - Tdap) [facility] [employer] Start: 01-06-2010 Hepatitis C screening Hepatitis C sc reen [facility] Start: 2004 Depression Screen Depression Screen [employer] [facility] Start: 01-06-1998 Pneumococcal 0-64 ye ars Vaccine (1 - PCV) Pneumococcal 0-64 years Vaccine (1 - PCV) [facility] Start: 01-06-1997 COVID-19 Vaccine (1) COVID-19 Vaccin e (1) [employer] [facility] Start: 01-06-1993 Varicella vaccine (1 of 2 - 2-dose childhood series) Varicella vaccine (1 of 2 - 2-dose childhood series) [facility] Start: 1992 COVID-19 Vaccine (#1) COVID-19 Vacci ne (#1) [employer] [facility] End: 10-27-2021 Culture, Urine [employer] [facility] Work Phone: Comment on above: Once for 1 Occurrenc es starting 10/27/2021 until 10/27/2021 End: 09-13-2022 Hepatitis C RNA, quantitative, PCR [facility] Work Phone: Comment on above: Once for 1 Occurrenc es starting 09/13/2022 until 09/13/2022 Immunizations Immunization Date Immunization Notes Care Provider Seun marc 05-14-2012 influenza, seasonal, injectable Zev Boubacar [facility] Comment on above: Early/Late Reason: P atient Not Available/Off Unit 05-14-2012 measles, mumps and rubella virus vaccine Zev Hamlin [facility] Comment on above: Early/Late Reason: P atient Not Available/Off Unit Payers Date Payer Category Payer Unknown [id number] 2019 Unknown [id number] 1992 Unknown [id number] 1992 Unknown [id number] [id number] 1992 Unknown [id number] [id number] 1992 Unknown [id number] [id number] 1992 Unknown [id number] [id number] 1992 Unknown [id number] [id number] 1992 Unknown [id number] [id number] 1992 Unknown [id number] 2.16.840.1.935447.3.579.2.983 1992 Unknown [id number] 2.16.840.1.055816.3.579.2.983 1992 Unknown [id number] 2.16.840.1.884568.3.579.2.983 1992 Unknown [id number] 2.16.840.1.763054.3.579.2.1286 1992 Unknown [id number] 2.16.840.1.525839.3.579.2.6 1992 Unknown [id number] 2.16.840.1.657896.3.579.2.1286 1992 Unknown [id number] 2.16.840.1.825692.3.579.2.1286 1992 Unknown [id number] [id number] 1992 Unknown [id number] [id number] 1959 Unknown [id number] Unknown COUNTS INCLUDE 234 BEDS AT THE [facility] Social History Date Type Detail Facility Start: 08-14-2013 End: 10-13-2017 Consumes alcohol occasionally Consumes alcohol occasionally [place] [id number] DO Work Phone: Comment on above: <1PPD; Start: 06-25-2021 Tobacco smoking status Light t obacco smoker (finding) [facility] Sex Assigned At Female [facility] Start: 08-14-2013 End: 10-13-2017 Tobacco smoking status NHIS Smokes tobacco daily [facility] [employer] Phone: History of tobacco use Cigarette Smoker [facility] [place] [employer] Phone: Start: 08-14-2013 End: 10-13-2017 Tobacco use and exposure Smokeless tobacco non-user [employer] Phone: Start: 09-11-2018 Alcohol intake Current non-dr public health internship of alcohol (finding) [employer] Phone: Start: 1990 Sex Assigned At Not on file [place] [employer] Phone: Functional Status Date Assessment Result Facility 07-06-2023 Functional Status N/A [facility] 07-09-2021 PHQ-9 [id number] Moder ately Severe (15-19) [facility] 250 DO Work Phone: Clinical Notes 07-24-2021 to 07-08-2023 Note Date & Type Note Facility 07-08-2023 Note Microbiology PROCEDURE: Cervical Culture [R1] SOURCE: Cerv BODY SITE: COLLECTED DATE/TIME: 07/06/2023 15:36 EST RECEIVED DATE/TIME: 07/06/2023 15:45 EST START DATE/TIME: 07/06/2023 15:45 EST FREE TEXT SOURCE: Louise JONAS, Bernadette Lockhart. Louise JONAS, Bernadette Adams FINAL REPORTS Final Report [] [...] Locations R1: This test was performed at: [facility], [address] [place] [address], [id number] , , [facility] Comment on above: Performed By: #### 1 [id number] #### [facility] [address] [place] [address] 07-06-2023 Hospital Discharge instructions Patient Education 07/06/2023 15:38:59 Viral Respiratory Infection, [id number]-[id number]-Seql Viral Respiratory Infection A viral respiratory infection [...] at home: Managing pain and congestion Take lafs-cil-qqioxqf and prescription medicines only as told by [...] cannot use soap and water, use hand passenger service manager. ?Cover your mouth when you cough. Cover [...] provider. Document Revised: 07/23/2021 Document Reviewed: 07/23/2021 [employer] Patient Education 2022 [employer] Follow Up Care 07/06/2023 15:07:50 With:Boubacar MULLINS, Zev Webber, [facility] Address: [address] [place] [phone]- When:2 to 4 days With:[facility] Dept: [phone] Address:Unknown When:07/09/2023 [facility] 07-06-2023 Evaluation + Plan note Diagnostic Tests PendingChlam/GC/Trich,BETZAIDA 07/06/23Urine Culture 07/06/23 [facility] 07-24-2021 Hospital Discharge instructions Patient Education 07/24/2021 17:19:35 STOCK OR DELIVERY CLERK - Post D&C, Hysteroscopy, LEEP or Essure/Laparoscopy [...] 16:23:25 With:Zev Hamlin Address: [address], [facility] [address] [place] [address]- Business (1) When:2 weeks Comments:Call for any problems. [facility] Chief complaint Narrative - Reported DOUGLAS MYLES is being seen for a consultation for. POC abnormal ECG; Dr. Boubacar Franco [facility] [employer] 250 DO Work Phone: Chief complaint Narrative - Reported DOUGLAS MYLES is being seen for a consultation for. POC abnormal ECG; Dr. Hamlin [facility] Work Phone: Evaluation + Plan note No data available for this section [facility] History of Present illness Narrative Patient is seen for preoperative risk assessment. She apparently presented for tubal ligation and procedure was canceled because of abnormal EKG.She has been in and out of the emergency room multiple times. Recently she was in [place] [facility] and they also noted abnormal EKG [...] correspond with the surgeon in this regard. [facility] [place] 250 DO Work Phone: History of Present illness Narrative Patient is seen for preoperative risk assessment. She apparently presented for tubal ligation and procedure was canceled because of abnormal EKG.She has been in and out of the emergency room multiple times. Recently she was in [place] at the hospital and they also noted [...] the surgeon in this regard. 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 [facility] [employer] provides no warranty or guarantee of the accuracy or completeness of information in this document.
--- NOTE | 2023-10-25 15:01 | ED.GENADUL1 ---
HPI HPI - General Adult General Chief complaint: Nausea/Vomiting/Diarrhea Stated complaint: VOMITING, DIARRHEA, FEVER Time Seen by Provider: 10/25/23 14:41 Source: patient Mode of arrival: walk-in Limitations: no limitations History of Present Illness HPI narrative: Patient presents to ED complaining of nausea vomiting and generally not feeling well. She states she was recently in the hospital for low blood counts and received a blood transfusion. She did report recently some GI bleeding. She has a history of liver failure and anemia. She has a history of IV drug abuse but states that she has not Used in a while. She denies severe abdominal pain. She does report a mild cough and reports fevers as well. Her blood pressure is slightly low upon arrival. She denies syncope but states she was feeling lightheaded and generalized weakness. Related Data Home Medications ?Medication ?Instructions ?Recorded ?Confirmed trazodone 100 mg tablet 100 mg PO BEDTIME 11/09/22 10/23/23 buprenorphine 8 mg-naloxone 2 mg 1.5 film sublingual DAILY 10/25/23 sublingual film Previous Rx's ?Medication ?Instructions ?Recorded pantoprazole 40 mg tablet,delayed 40 mg PO DAILY #30 tabs 10/24/23 release (Protonix) Allergies Allergy/AdvReac Type Severity Reaction Status Date / Time No Known Drug Allergies Allergy Verified 10/11/23 17:22 Opioid HPI Opioid Management Most Recent Opioid Data: Last Pain Scale 6 05/22/23 03:30 Last Pain Assessment 10/24/23 11:00 Last ORT Total Score 8 10/23/23 19:49 Last ORT Risk Category High Risk 10/23/23 19:49 Ur Phencyclidine Scrn Negative (NEGATIVE) 10/25/23 15:09 Review of Systems ROS Narrative ROS negative unless otherwise stated above in HPI PFSH PFSH Medical History (Updated 10/25/23 @ 17:22 by Negrita Ibanez DO) Oral thrush ?B37.0 - Candidal stomatitis (ICD-10) Single delivery by section ?O82 - Encounter for delivery without indication (ICD-10) Liver failure ?K72.90 - Hepatic failure, unspecified without coma (ICD-10) Hep C w/o coma, chronic ?B18.2 - Chronic viral hepatitis C (ICD-10) Neurocardiogenic syncope ?R55 - Syncope and collapse (ICD-10) Family History (Updated 10/23/23 @ 19:39 by Makayla Campos RN) Mother Family history of COPD (chronic obstructive pulmonary disease) Other Family history of cancer Family history of hypertension Social History (Updated 10/23/23 @ 19:41 by Makayla Campos, RN) Within the past year, how often did you have a drink containing alcohol: never Within the past year, how many standard drinks containing alcohol did you have on a typical day: 1 or 2 Within the past year, how often did you have six or more drinks on one occasion: never Total score: 0 Score interpretation: A score less than 3 is consistent with normal alcohol consumption. 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; clean for four months Previous occupational history: [employer] Highest level of school completed/degree received: high school graduate Are you now , , , , never or living with a partner: living with partner In a typical week, how many times do you talk on the telephone with family, friends, or neighbors: 3 or more times per week How often do you get together with friends or relatives: 3 or more times per week How often do you attend anglican or adventism services: never Little interest or pleasure in doing things: several days Feeling down, depressed, or hopeless: several days Feel stressed/tense/nervous/anxious/difficulty sleeping: to some extent Do you think of yourself as: straight/heterosexual Gender Identity: female Exam Narrative Exam Narrative: Time Seen: [] Vital Signs: [Per nurse's notes.] General: [Alert]Mild hypotension Skin: [Warm, dry, no rash.]Jaundice, Pallor Head: [Normocephalic, atraumatic.] Neck: [Supple, trachea midline.] Eye: [Pupils are equal, round and reactive to light, extraocular movements are intact, normal conjunctiva.] Ears, nose, mouth and throat: oral mucosa moist. Cardiovascular: [Regular rate and rhythm, no murmur.] Respiratory: [Lungs are clear to auscultation, respirations are non-labored, breath sounds are equal.] Chest wall: [No tenderness, no deformity.] Gastrointestinal: [Soft, nontender, non distended, normal bowel sounds.] MSK: 5 out of 5 muscle strength x 4 extremities no calf pain or edema Lymphatics: [No lymphadenopathy.] Psychiatric: [Cooperative, appropriate mood & affect.] Neurological: [Alert and oriented to person, place, time, and situation, no focal neurological deficit observed.] Constitutional Vital Signs, click to edit/add: Last Vital Signs Temp 98.7 F 10/25/23 14:45 Pulse 56 L 10/25/23 16:57 Resp 18 10/25/23 16:57 BP 100/54 10/25/23 16:57 Pulse Ox 98 10/25/23 16:57 Course Vital Signs Vital signs: Vital Signs Temperature 98.7 F 10/25/23 14:45 Pulse Rate 76 10/25/23 14:45 Respiratory Rate 18 10/25/23 14:45 Blood Pressure 102/57 10/25/23 14:45 Pulse Oximetry 98 10/25/23 14:45 Temperature 98.7 F 10/25/23 14:45 Pulse Rate 56 L 10/25/23 16:57 Respiratory Rate 18 10/25/23 16:57 Blood Pressure 100/54 10/25/23 16:57 Pulse Oximetry 98 10/25/23 16:57 Medical Decision Making MDM Narrative Medical decision making narrative: Patient's labs show multiple abnormalities including a low white blood cell count, continued anemia although it is improved, worsening liver function tests including an elevated T. bili. Patient is dehydrated and complaining that she cannot keep anything down. She is feeling slightly better after IV fluids and Zofran. She did ask for some ice chips and crackers. I called and spoke to Dr. Mejia who had admitted her before and remembers the patient. He states she was supposed to go to hematology oncology today but patient came here instead because she was not feeling well. Dr. Mejia will admit the patient and consult hematology oncology. Patient did have some positive findings on the drug screen. Chest x-ray clear. Patient is comfortable with care plan for admission Differential Diagnosis Differential Diagnosis: Sepsis, anemia, leukocytopenia, liver failure, Medical Records Medical records reviewed: Yes I reviewed the patient's medical records Lab Data Lab results reviewed: Yes I reviewed the patient's lab results Labs: Lab Results 10/25/23 10/25/23 Range/Units 15:08 15:09 WBC 1.8 L (4.0-11.0) 10^3/uL RBC 2.07 L (4.20-5.40) 10^6/uL Hgb 8.6 L (12.0-16.0) g/dL Hct 24.2 L (36.0-48.0) % MCV 116.9 H (81.0-99.0) fL MCH 41.5 H (26.7-34.0) pg MCHC 35.5 H (29.9-35.2) g/dL Plt Count 88 L (150-450) 10^3/uL MPV 10.1 (9.5-13.5) fL Seg Neuts % (Manual) 68.0 Band Neutrophils % 2.0 (0-5) % Lymphocytes % (Manual) 26.0 (20.5-60.0) % Monocytes % (Manual) 4.0 (1.7-12.0) % Eosinophils % (Manual) 0.0 L (0.9-7.0) % Basophils % (Manual) 0.0 L (0.2-2.0) % Neutrophils # (Manual) 1.22 L (1.4-6.5) 10^3/uL Band Neutrophils # 0.0 (0.0-0.3) 10^3/uL Lymphocytes # (Manual) 0.46 L (1.20-3.80) 10^3/uL Monocytes # (Manual) 0.07 L (0.30-0.80) 10^3/uL Eosinophils # (Manual) 0.00 (0.00-0.70) 10^3/uL Basophils # (Manual) 0.00 (0.00-0.10) 10^3/uL Hypochromasia 1+ Poikilocytosis 1+ Anisocytosis 3+ Macrocytosis 2+ Ovalocytes 1+ Sodium 143 (136-145) mmol/L Potassium 4.4 (3.5-5.1) mmol/L Chloride 107 (98-107) mmol/L Carbon Dioxide 27.3 (21.0-32.0) mmol/L Anion Gap 13.1 BUN 17.0 (7.0-18.0) mg/dL Creatinine 0.69 (0.55-1.02) mg/dL Est GFR ( Amer) >60 (>=60) Est GFR (Non-Af Amer) >60 (>=60) BUN/Creatinine Ratio 24.6 Glucose 102 (74-106) mg/dL Lactate 1.0 (0.4-2.0) mmol/L Calcium 9.9 (8.5-10.1) mg/dL Total Bilirubin 4.3 H (0.2-1.0) mg/dL AST 128 H (15-37) U/L ALT 84 H (14-59) U/L Alkaline Phosphatase 82 (46-116) U/L Total Protein 6.4 (6.4-8.2) g/dL Albumin 3.7 (3.4-5.0) g/dL Globulin 2.7 g/dL Albumin/Globulin Ratio 1.4 Lipase 27.0 (16.0-77.0) U/L Urine Color Dk. orange (YELLOW) Urine Clarity Clear (CLEAR) Urine pH Color interference A (5.0-9.0) Ur Specific [place] 1.020 (1.005-1.025) Urine Protein Color interference A (NEG/TRACE) mg/dL Urine Glucose (UA) Color interference A (NEGATIVE) mg/dL Urine Ketones Color interference A (NEGATIVE) mg/dL Urine Occult Blood Color interference A (NEGATIVE) Urine Nitrite Color interference A (NEGATIVE) Urine Bilirubin Color interference A (NEGATIVE) Urine Urobilinogen Color interference A (0.2-1.0) EU/dL Ur Leukocyte Esterase Color interference A (NEGATIVE) Urine RBC 2-5 A (0-2) #/HPF Urine WBC 5-10 A (NONE SEEN) #/HPF Ur Squamous Epith Cells Few A (NONE/RARE) #/LPF Urine Crystals Seen A (None Seen) #/HPF Amorphous Sediment Few Urine Bacteria Large A (NONE SEEN) #/HPF Urine Casts None seen (NONE SEEN) #/LPF Urine Mucus Moderate A (NONE SEEN) Ur Culture Indicated? Yes Urine Opiates Screen Negative (NEGATIVE) Ur Buprenorphine Scrn Positive A (NEGATIVE) Ur Oxycodone Screen Negative (NEGATIVE) Urine Methadone Screen Negative (NEGATIVE) Ur Barbiturates Screen Negative (NEGATIVE) U Tricyclic Antidepress Negative (NEGATIVE) Ur Phencyclidine Scrn Negative (NEGATIVE) Ur Amphetamines Screen Negative (NEGATIVE) U Methamphetamines Scrn Negative (NEGATIVE) U Benzodiazepines Scrn Negative (NEGATIVE) Urine Cocaine Screen Negative (NEGATIVE) U Cannabinoids Screen Positive A (NEGATIVE) Imaging Data Chest x-ray: Radiologist's impression: ITS Impressions Chest X-Ray 10/25/23 15:37 IMPRESSION: No acute infiltrate or evidence of cardiac decompensation. The overall appearance of the chest is essentially unchanged. Electronically authenticated by: ZACK LANGFORD Date: 10/25/2023 16:02 Discharge Plan Discharge Chief Complaint: Nausea/Vomiting/Diarrhea Clinical Impression: Anemia, Acute liver failure, Intractable vomiting with nausea Patient Disposition: Admitted As Inpatient Time of Disposition Decision: 17:22 Condition: Fair Discharge Date/Time: 10/25/23 17:08
[2023-10-25] MEDS: 0.9 % SODIUM CHLORIDE 1,000 ML 999 ML IV (15:14)
[2023-10-25] MEDS: ONDANSETRON PF 4 MG/2 ML VIAL IV (15:14)
[2023-10-25 15:24] LABS: Hematocrit 24.2 % (36.0-48.0); Hemoglobin 8.6 g/dL (12.0-16.0); Mean Corpuscular HGB Conc 35.5 g/dL (29.9-35.2); Mean Corpuscular Hemoglobin 41.5 pg (26.7-34.0); Mean Corpuscular Volume 116.9 fL (81.0-99.0); Mean Platelet Volume 10.1 fL (9.5-13.5); Platelet Count 88 10^3/uL (150-450); Red Blood Count 2.07 10^6/uL (4.20-5.40); White Blood Count 1.8 10^3/uL (4.0-11.0)
[2023-10-25 15:30] LABS: Clarity Urine CLEAR (CLEAR); Color Urine DK. ORANGE (YELLOW)
[2023-10-25 15:34] LABS: Bilirubin Urine COLOR INTERFERENCE (NEGATIVE); Blood Urine COLOR INTERFERENCE (NEGATIVE); Glucose Urine UA COLOR INTERFERENCE mg/dL (NEGATIVE); Ketones Urine COLOR INTERFERENCE mg/dL (NEGATIVE); Leukocyte Esterase Urine COLOR INTERFERENCE (NEGATIVE); Nitrite Urine COLOR INTERFERENCE (NEGATIVE); Protein Urine COLOR INTERFERENCE mg/dL (NEG/TRACE); Urine Microscopic Indicated YES; Urobilinogen Urine COLOR INTERFERENCE EU/dL (0.2-1.0); pH Urine COLOR INTERFERENCE (5.0-9.0)
--- NOTE | 2023-10-25 15:37 | XR_ITS ---
The [address] [address] Patient Name: SANGEETA MYLES MRN: [id number] date: 1990 Sex: F Assigned Patient Location: ER Current Patient Location: ER Accession/Order Number: [id number] Exam Date: 10/25/2023 15:52 Report Date: 10/25/2023 16:02 At the request of: ESTRADA DUKES Procedure: XR chest 2V EXAM: XR chest 2V HISTORY: cough COMPARISON: 10/23/2023 TECHNIQUE: Upright PA and lateral chest x-ray FINDINGS: The heart is not enlarged and the vasculature is not distended. No acute infiltrate, effusion or pneumothorax is identified. The osseous structures are grossly intact. XR/XR chest 2V IMPRESSION: No acute infiltrate or evidence of cardiac decompensation. The overall appearance of the chest is essentially unchanged. Electronically authenticated by: ZACK LANGFORD Date: 10/25/2023 16:02
[2023-10-25 15:39] LABS: Amorphous Sediment Urine FEW; Bacteria Urine LARGE #/HPF (NONE SEEN); Cast Seen? NONE SEEN #/LPF (NONE SEEN); Crystals Seen? Seen #/HPF (None Seen); Mucus Urine MODERATE (NONE SEEN); Squamous Epithelial Cell Urine FEW #/LPF (NONE/RARE); Urine Culture Indicated YES
[2023-10-25 15:43] LABS: Amphetamine Screen Urine NEGATIVE (NEGATIVE); Barbiturates Screen Urine NEGATIVE (NEGATIVE); Benzodiazepines Screen Urine NEGATIVE (NEGATIVE); Buprenorphine Screen Urine POSITIVE (NEGATIVE); Cannabinoid Screen Urine POSITIVE (NEGATIVE); Cocaine Screen Urine NEGATIVE (NEGATIVE); Methadone Screen Urine NEGATIVE (NEGATIVE); Methamphetamines Screen Urine NEGATIVE (NEGATIVE); Opiate Screen Urine NEGATIVE (NEGATIVE); Oxycodone Screen Urine NEGATIVE (NEGATIVE); Phencyclidine Screen Urine NEGATIVE (NEGATIVE); Tricyclic Antidepressant Urine NEGATIVE (NEGATIVE)
[2023-10-25 15:54] LABS: Alanine Aminotransferase 84 U/L (14-59); Albumin Globulin Ratio 1.4; Albumin Level 3.7 g/dL (3.4-5.0); Alkaline Phosphatase 82 U/L (46-116); Anion Gap 13.1; Aspartate Amino Transferase 128 U/L (15-37); BUN Creatinine Ratio 24.6; Bilirubin Total 4.3 mg/dL (0.2-1.0); Calcium 9.9 mg/dL (8.5-10.1); Carbon Dioxide 27.3 mmol/L (21.0-32.0); Chloride 107 mmol/L (98-107); Estimated GFR (African America >60 (>=60); Estimated GFR (Non-African Ame >60 (>=60); Globulin 2.7 g/dL; Glucose 102 mg/dL (74-106); Potassium 4.4 mmol/L (3.5-5.1); Sodium 143 mmol/L (136-145); Total Protein 6.4 g/dL (6.4-8.2)
[2023-10-25 15:56] LABS: Lymphocytes Absolute Manual 0.46 10^3/uL (1.20-3.80); Monocytes Absolute Manual 0.07 10^3/uL (0.30-0.80); Segmented Neut Absolute Manual 1.22 10^3/uL (1.4-6.5)
[2023-10-25 15:57] LABS: Anisocytosis 3+; Hypochromasia 1+; Macrocytosis 2+
[2023-10-25 15:58] LABS: Ovalocytes 1+; Poikilocytosis 1+
[2023-10-25 16:57] VITALS: BP 100/54; PULSE 56; O2SAT 98
--- NOTE | 2023-10-25 17:01 | P.HP_ITS ---
<Statement entered by Bahman Mejia MD - 10/26/23 18:57> This documentation has been reviewed and approved. Patient was seen and evaluated at the bedside with the rounding team, very difficult time arousing her and were able to wake her up and she did roll over for examination such but really did not have a conversation with her she was just significantly not awake. Later in the morning understand she did wake up and was feeling better. Agree with input and findings from nurse practitioner. HPI H&P: HPI History of Present Illness Chief complaint: Nausea vomiting elevated lfts anemia weakness Narrative: 10/25/23 8520 This is a 33-year-old female patient with a past medical history as outlined below including pancytopenia with profound anemia of unclear etiology, hepatitis C from IV drug use and now acute transaminitis; who presented to the ED today complaining of persistent nausea and vomiting. The patient was admitted to this facility with nausea and vomiting and very low hemoglobin and was discharged yesterday. She reports after returning home she again experienced nausea and vomiting x 3 episodes. She denies abdominal pain. She presented again to the ED for further evaluation. Workup in the ED reveals persistent pancytopenia with slightly lower WBCs (1.8), but stable hemoglobin (8.6), and platelets (88). The patient's transaminitis persists (AST to 128, ALT 84) and her bilirubin remains elevated and is in fact worsening (4.3). A UA although with broad color interference from bilirubin is positive for UTI with large bacteria and WBCs seen. A drug screen was positive for buprenorphine which is prescribed, and cannabinoids. The patient is being admitted in observation to the hospitalist service for intractable nausea and vomiting. At the time of my exam the patient reports that she is feeling better after receiving Zofran and IV fluids in the ED. She is requesting advancing of her diet as she feels she is able to tolerate food again. We will continue gentle IV fluids and as needed antiemetics. We will advance the patient's diet as requested and she will likely discharge in the morning if she is able to keep her food down. Opioid HPI Opioid Management Most Recent Pain and Opioid Data: Last Pain Scale 6 05/22/23 03:30 Last Pain Assessment 10/26/23 07:00 Last ORT Total Score 10 10/25/23 17:47 Last ORT Risk Category High Risk 10/25/23 17:47 Last COWS Score 10 10/26/23 07:31 Last COWS Severity Mild 10/26/23 07:31 Ur Phencyclidine Scrn Negative (NEGATIVE) 10/26/23 09:15 Review of Systems ROS Status of ROS 10 or more systems reviewed and unremark able except as noted in history and below [facility] Medical History (Updated 10/26/23 @ 09:41 by Maria Esther Gonsalez NP) Urinary tract infection with hematuria ?N39.0 - Urinary tract infection, site not specified (ICD-10) ?R31.9 - Hematuria, unspecified (ICD-10) Oral thrush ?B37.0 - Candidal stomatitis (ICD-10) Single delivery by section ?O82 - Encounter for delivery without indication (ICD-10) Liver failure ?K72.90 - Hepatic failure, unspecified without coma (ICD-10) Hep C w/o coma, chronic ?B18.2 - Chronic viral hepatitis C (ICD-10) Neurocardiogenic syncope ?R55 - Syncope and collapse (ICD-10) Family History (Updated 10/23/23 @ 19:39 by Makayla Campos RN) Mother Family history of COPD (chronic obstructive pulmonary disease) Other Family history of cancer Family history of hypertension Social History (Updated 10/23/23 @ 19:41 by Makayla Campos RN) Within the past year, how often did you have a drink containing alcohol: never Within the past year, how many standard drinks containing alcohol did you have on a typical day: 1 or 2 Within the past year, how often did you have six or more drinks on one occasion: never Total score: 0 Score interpretation: A score less than 3 is consistent with normal alcohol consumption. 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; clean for four months Previous occupational history: [employer] Highest level of school completed/degree received: high school graduate Are you now , , , , never or living with a partner: living with partner In a typical week, how many times do you talk on the telephone with family, friends, or neighbors: 3 or more times per week How often do you get together with friends or relatives: 3 or more times per week How often do you attend yazidi or zoroastrian services: never Little interest or pleasure in doing things: several days Feeling down, depressed, or hopeless: several days Feel stressed/tense/nervous/anxious/difficulty sleeping: to some extent Do you think of yourself as: straight/heterosexual Gender Identity: female Meds Home Medications and Allergies Home Medications ?Medication ?Instructions ?Recorded ?Confirmed ?Type trazodone 100 mg tablet 100 mg PO BEDTIME 11/09/22 10/23/23 History pantoprazole 40 mg tablet,delayed 40 mg PO DAILY #30 tabs 10/24/23 Rx release (Protonix) buprenorphine 8 mg-naloxone 2 mg 1.5 film sublingual DAILY 10/25/23 History sublingual film Allergies Allergy/AdvReac Type Severity Reaction Status Date / Time No Known Drug Allergies Allergy Verified 10/11/23 17:22 Exam Constitutional Vital Signs, click to edit/add: Last Vital Signs Temp 98.7 F 10/25/23 14:45 Pulse 56 L 10/25/23 16:57 Resp 18 10/25/23 16:57 BP 100/54 10/25/23 16:57 Pulse Ox 98 10/25/23 16:57 Common normals: no apparent distress, oriented x3, alert and well nourished General appearance: cooperative Orientation/consciousness: Yes awake HENMT Common normals: normocephalic, head/scalp atraumatic, hearing grossly normal bilaterally, external nose normal and moist oral mucous membranes Face and sinus: other (Mild jaundice) Teeth and gingiva: teeth discoloration Eye Common normals: PERRL, EOMs intact bilaterally, conjunctivae normal and no scleral icterus Alignment: alignment normal Eyelid: eyelids normal Neck & C-Spine Common normals: full ROM, supple and no JVD Chest Common normals: inspection of chest normal Chest: symmetrical chest wall rise Respiratory Common normals: normal respiratory effort, no retractions, no use of accessory muscles and clear to auscultation bilaterally Effort & inspection: able to speak in complete sentences Cardio Common normals: no JVD, regular rate, regular rhythm, S1 normal heart sound, S2 normal heart sound, no gallops, no clicks, no murmurs, no rub and peripheral pulses 2+ throughout GI Common normals: Normal to inspection, nondistended, normoactive bowel sounds present, soft to palpation, non-tender, no hepatosplenomegaly, no masses and no bruits Palpation: soft and no hepatosplenomegaly Bladder/kidney exam: bladder normal to palpation Back & Pelvis Common normals: thoracic and lumbar spine normal to inspection Extremity Common normals: normal capillary refill and no pedal edema General: normal exam except as noted; no clubbing and no cyanosis Neuro George Coma Scale: GCS not evaluated Common normals: CN's II-XII intact bilaterally, moves all extremities, no focal motor deficits and no sensory deficits noted Speech: speech normal Motor exam: strength 5/5 throughout Psych Common normals: mental status grossly normal, thought process normal, affect normal and activity/motor behavior normal Results Labs Labs: Short CBC 10/25/23 Range/Units 15:08 WBC 1.8 L (4.0-11.0) 10^3/uL Hgb 8.6 L (12.0-16.0) g/dL Hct 24.2 L (36.0-48.0) % Plt Count 88 L (150-450) 10^3/uL BMP 10/25/23 15:08 Sodium 143 Potassium 4.4 Chloride 107 Carbon Dioxide 27.3 BUN 17.0 Creatinine 0.69 Glucose 102 Calcium 9.9 Liver Function 10/25/23 Range/Units 15:08 Total Bilirubin 4.3 H (0.2-1.0) mg/dL AST 128 H (15-37) U/L ALT 84 H (14-59) U/L Alkaline Phosphatase 82 (46-116) U/L Albumin 3.7 (3.4-5.0) g/dL Urine 10/25/23 Range/Units 15:09 Urine Color Dk. orange (YELLOW) Urine Clarity Clear (CLEAR) Urine pH Color interference A (5.0-9.0) Ur Specific [place] 1.020 (1.005-1.025) Urine Protein Color interference A (NEG/TRACE) mg/dL Urine Glucose (UA) Color interference A (NEGATIVE) mg/dL Pulse Oximetry Attestation: I have reviewed the pertinent pulse oximetry results. Assessment and Plan Assessment and Plan (1) Intractable vomiting with nausea: Assessment and Plan: Acute * Adm observation * Pt w/ persistent/recurrent N/V * Denies associated abdominal pain * Resolving * Significantly improved after IVFs and anti-emetics in the ED * Pt requesting advancing diet - will trial low residue/GI soft * PRN Zofran (2) UTI (urinary tract infection): Assessment and Plan: Acute * UA positive in the ED * Urine CX from previous admission still pending * UA from 10/11/23 pos for mostly bradford-sensitive e-coli * IVPB Rocephin pending culture results (3) Acute liver failure: Assessment and Plan: Acute * Unclear etiology - suspect 2/2 chronic Hep C * Pt self reports remission of Hep C in the past * HCV antibody cascade w/ PCR quant and genome (if indicated) ordered for AM labs per Dr Atkins's recommendations * Hyperbilirubinemia, elevated AST/ALT - slightly worse than on d/c yesterday. Normal Alk Phos * RUQ US from 10/23 was unremarkable - no evidence of obstructive pathology * Check HIV status in setting of known drug needle sharing * Plan to follow up with GI as outpatient (4) Pancytopenia: Assessment and Plan: Acute on chronic * Unclear etiology * Consult Dr Atkins - we appreciate his assistance with this pt's care * Peripheral smear ordered * Macrocytic anemia * Vit B12 level - if low will give cyanocobalamin injections IM * Defer further management to outpatient follow up with Dr Atkins
--- OUTSIDE RECORDS SUMMARY | 2023-10-25 17:35 | XMS_ITS | CCD ---
Author Organization 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 Phone None, No PCP [...] Referring Unavailable PB GARSIA Referring Unavailable SERVICES, [facility] Primary Care Unava ilable NO PCP, NO PCP Primary Care Unavailable Adolfo Hernandez Attending Unavailable Medications Current Medications Medication Drug Class(es) Dates Sig (Normalized) Sig (Original) acetaminophen 325 mg / oxyCODONE hydrochloride 5 mg oral tablet (1 source) Opioid Agonist Start: 07-24-2021 End: 07-26-2021 Percocet 325 mg-5 mg Tab 1 tab(s), Oral, q6hr for pain for 2 day(s), 7 tab(s), Refill(s) 0, [facility]/pharmacy #[id number], 161, cm, 06/25/21 13:03:00 EST, [...] by mouth 2 times daily 0 Active Djrurlzz-Skq-De-FA ( VITAMINS PO) (5 sources) Abuifmqm-Gim-Fp-FA ( VITAMINS PO) Take by mouth 0 [...] (GLYCO-HGB)on 2023 Glucose [Mass/Vol] 117 mg/dL Normal [facility] Comment on above: Performed By: #### A #### [facility] ([id number]) [address] [place] [address], [address] [place] [address] #### 71442-6 #### [facility] ([id number]) [address] [place] [address], [place] [address] HbA1c (Bld) [Mass fraction] 5.7 % High 4.4-5.6 [facility] Comment on above: Result Comment: NOTE ADA Guidelines Result HgbA1c Normal : less than 5.7 % Prediabetes : 5.7 % to 6.4 % Diabetes : > 6.4 % Use with caution in patients with abnormal hemoglobin variants as the half-life of red blood cells and in vivo glycation rates are affected. Performed By: #### A HP #### [facility] ([id number]) [address] [place] [address], [address] [place] [address] #### 01149-4 #### [facility] ([id number]) [address] [place] [address] 11028 Lipid 1996 panelon 4 Cholesterol [Mass/Vol] 99 mg/dL Low 150-200 [facility] Comment on above: Performed By: #### A HP #### [facility] ([id number]) [address] [place] [address], [address] [place] [address] #### 66049-3 #### [facility] ([id number]) [address] [place] [address] 06608 Cholesterol in HDL [Mass/Vol] 29 mg/dL Low >39 [facility] Comment on above: Result Comment: HDL <40 mg/dL - High Risk HDL > or = 40mg/dL- Desirable HDL >60 mg/dL - Negative Risk Performed By: #### A HP #### [facility] ([id number]) [address] [place] [address], [address] [place] [address] #### 28171-9 #### [facility] ([id number]) [address] [place] [address] 15021 Cholesterol in LDL [Mass/Vol] 44 mg/dL Normal <130 [facility] Comment on above: Result Comment: LDL <100 mg/dL - Desirable LDL >160 mg/dL - High Risk Performed By: #### A HP #### [facility] ([id number]) [address] [facility], [address] [place] [address] #### 65690-2 #### [facility] ([id number]) [address] [place] [address] 52430 Cholesterol in VLDL [Mass/Vol] 26 mg/dL Normal 0-30 [facility] Comment on above: Performed By: #### A HP #### [facility] ([id number]) [address] [facility], [address] [place] [address] #### 93095-2 #### [facility] ([id number]) [address] [place] [address] 25686 CHOLESTEROL:HDL 3.4 Normal 1.0-5.0 [facility] Comment on above: Performed By: #### A HP #### [facility] ([id number]) [address] [facility], [address] [place] [address] #### 47295-6 #### [facility] ([id number]) [address] [place] [address] 08269 Triglyceride [Mass/Vol] 131 mg/dL Normal 27-150 [facility] Comment on above: Performed By: #### A HP #### [facility] ([id number]) [address] [facility], [address] [place] [address] #### 93381-5 #### [facility] ([id number]) [address] [place] [address] 42442 Reference Lab Test IDon 05-0 VIT D 1 25 DIHYDROXY See Below Normal [facility] Comment on above: Result Comment: NOTE TEST RESULT FLAG UNIT REF.RANGE ------- Vit D,1,25 Dihydroxy 59.9 pg/mL 19.9-79.3 Test Performed By: [facility] [address] [place] [address] Community Worker: Krishna Mehta III #[id number] Performed By: #### A HP #### [facility] ([id number]) [address] [place] [address] [address] [place] [address] #### 48262-0 #### [facility] ([id number]) [address] [place] [address] 72317 TSH WITH REFLEXon 09-08-2023 TSH 1.36 uIU/mL Normal 0.49-4.67 [facility] Comment on above: Performed By: #### A HP #### [facility] ([id number]) [address] [place] [address], [address] [place] [address] #### 02810-3 #### [facility] ([id number]) [address] [place] [address] 53579 CBC AND AUTO DIFFon 08-19-19 24 Anisocytosis Ql (Bld) 2+ Abnormal NONE [facility] Comment on above: Performed By: #### C BRUCE, 3040-3, CBCA, #### [facility] ([id number]) [address] [place] [address] 53068 Erythrocyte distribution width (RBC) [Ratio] 23.1 % High 11.5-15.0 [facility] Comment on above: Performed By: #### C BRUCE, 3040-3, CBCA, #### [facility] ([id number]) [address] [place] [address] 55314 Hematocrit (Bld) [Volume fraction] 26.3 % Low 35-47 [facility] Comment on above: Performed By: #### C BRUCE, 3039-07, CBCA, 1987-08, #### [facility] ([id number]) [address] [place] [address] 13330 Hemoglobin (Bld) [Mass/Vol] 9.3 g/dL Low 11.7-15.5 [facility] Comment on above: Performed By: #### C BRUCE, 3039-07, CBCA, 1987-08, #### [facility] ([id number]) [address] [place] [address] 57425 Lymphocytes (Bld) [#/Vol] 1.0 10*3/uL Normal 1.0-3.5 [facility] Comment on above: Performed By: #### Ethan BARRERA, 3039-07, CBCA, 1987-08, #### [facility] ([id number]) [address] [place] [address] 22928 Lymphocytes/100 WBC (Bld) 48.0 % Normal [facility] Comment on above: Performed By: #### Ethan BARRERA, 3039-07, CBCA, 1987-08, #### [facility] ([id number]) [address] [place] [address] 96565 MCH (RBC) [Entitic mass] 42.6 pg High 27-34 [facility] Comment on above: Performed By: #### C BRUCE, 3039-07, CBCA, 1987-08, #### [facility] ([id number]) [address] [place] [address] 32180 MCHC (RBC) [Mass/Vol] 35.5 g/dL Normal 32-36 [facility] Comment on above: Performed By: #### C BRUCE, 3039-07, CBCA, 1987-08, #### [facility] ([id number]) [address] [place] [address] 07599 MCV (RBC) [Entitic vol] 120 fL High 80-100 [facility] Comment on above: Performed By: #### C BRUCE, 3039-07, CBCA, 1987-08, #### [facility] ([id number]) [address] [place] [address] 71579 Monocytes (Bld) [#/Vol] 0.2 10*3/uL Normal 0-0.9 [facility] Comment on above: Performed By: #### C BRUCE, 3039-07, CBCA, 1987-08, #### [facility] ([id number]) [address] [place] [address] 25376 Monocytes/100 WBC (Bld) 7.0 % Normal [facility] Comment on above: Performed By: #### C BRUCE, 3039-07, CBCA, 1987-08, #### [facility] ([id number]) [address] [place] [address] 50015 Neutrophils (Bld) [#/Vol] 1.0 10*3/uL Low 1.5-6.6 [facility] Comment on above: Performed By: #### Ethan BARRERA, 3039-07, CBCA, 1987-08, #### [facility] ([id number]) [address] [place] [address] 05749 Platelet mean volume (Bld) [Entitic vol] 8.3 fL Normal 7-12 [facility] Comment on above: Performed By: #### C BRUCE, 3039-07, CBCA, 1987-08, #### [facility] ([id number]) [address] [place] [address] 00132 Platelets (Bld) [#/Vol] 122 10*3/uL Low 150-450 [facility] Comment on above: Performed By: #### C BRUCE, 3039-3, CBCA, 1987-08, #### [facility] ([id number]) [address] [place] [address] 96222 RBC COUNT 2.19 X10E12/L Low 3.80-5.20 [facility] Comment on above: Performed By: #### C BRUCE, 3039-3, CBCA, 1987-08, #### [facility] ([id number]) [address] [place] [address] 11634 SEG NEUTROPHIL 45.0 % Normal [facility] Comment on above: Performed By: #### Ethan BARRERA, 3039-, CBCA, 1987-08, #### [facility] ([id number]) [address] [place] [address] 10705 TEARDROP 1+ Abnormal NONE [facility] Comment on above: Performed By: #### C BRUCE, 3039-07, CBCA, 1987-08, #### [facility] ([id number]) [address] [place] [address] 53529 WBC (Bld) [#/Vol] 2.2 10*3/uL Low 4.0-11.0 [facility] Comment on above: Performed By: #### C BRUCE, 3039-3, CBCA, 1987-08, #### [facility] ([id number]) [address] [place] [address] 21218 COMPREHENSIVE METABOLIC PANE Elvin 08-19-2023 Albumin [Mass/Vol] 3.3 g/dL Normal 3.2-5.3 [facility] Comment on above: Performed By: #### Ethan BARRERA, 3039-3, CBCA, 1987-08, #### [facility] ([id number]) [address] [place] [address] 89623 ALP [Catalytic activity/Vol] 50 U/L Normal 39-130 [facility] Comment on above: Performed By: #### C BRUCE, 0-3, CBCA, 1987-08, #### [facility] ([id number]) [address] [place] [address] 39001 ALT [Catalytic activity/Vol] 26 U/L Normal 0-31 [facility] Comment on above: Performed By: #### C BRUCE, 3039-3, CBCA, 1987-08, #### [facility] ([id number]) [address] [place] [address] 98263 Anion gap [Moles/Vol] 5 mmol/L Normal 5-15 [facility] Comment on above: Performed By: #### C BRUCE, 3039-, CBCA, 1987-08, #### [facility] ([id number]) [address] [place] [address] 42994 AST [Catalytic activity/Vol] 29 U/L Normal 0-41 [facility] Comment on above: Performed By: #### C BRUCE, 3039-, CBCA, 1987-08, #### [facility] ([id number]) [address] [place] [address] 35164 Bilirubin [Mass/Vol] 1.2 mg/dL Normal 0.3-1.2 [facility] Comment on above: Performed By: #### C BRUCE, 0-3, CBCA, 1987-08, #### [facility] ([id number]) [address] [place] [address] 64894 Calcium [Mass/Vol] 9.0 mg/dL Normal 8.5-10.5 [facility] Comment on above: Performed By: #### C BRUCE, 0-3, CBCA, 1987-08, #### [facility] ([id number]) [address] [place] [address] 51932 Chloride [Moles/Vol] 107 mmol/L Normal 98-109 [facility] Comment on above: Performed By: #### C BRUCE, 3040-3, CBCA, 1987-08, #### [facility] ([id number]) [address] [place] [address] 51296 CO2 [Moles/Vol] 27 mmol/L Normal 22-32 [facility] Comment on above: Performed By: #### C BRUCE, 3039-3, CBCA, 1987-08, #### [facility] ([id number]) [address] [place] [address] 69268 Creatinine [Mass/Vol] 0.53 mg/dL Normal 0.40-1.00 [facility] Comment on above: Result Comment: METH OD TRACEABLE TO IDMS STANDARD Performed By: #### C BRUCE, 3, CBCA, 1987-08, #### [facility] ([id number]) [address] [place] [address] 94027 eGFR (CKD-EPI) NON-RACE DEPENDENT >90 Normal >59 [facility] Comment on above: Result Comment: Reported eGFR is based on the CKD-EPI 2020 equation that does not use a race coefficient. Performed By: #### C BRUCE, 3040-3, CBCA, 1987-08, #### [facility] ([id number]) [address] [place] [address] 20014 Glucose [Mass/Vol] 94 mg/dL Normal 65-99 [facility] Comment on above: Performed By: #### C BRUCE, 3040-3, CBCA, 1987-08, #### [facility] ([id number]) [address] [place] [address] 39225 Potassium [Moles/Vol] 3.2 mmol/L Low 3.5-5.0 [facility] Comment on above: Performed By: #### C BRUCE, 3039-07, CBCA, 1987-08, #### [facility] ([id number]) [address] [place] [address] 52251 Protein [Mass/Vol] 5.5 g/dL Low 6.0-8.0 [facility] Comment on above: Performed By: #### Ethan BARRERA, 3039-07, CBCA, 1987-08, #### [facility] ([id number]) [address] [place] [address] 40584 Sodium [Moles/Vol] 139 mmol/L Normal 134-146 [facility] Comment on above: Performed By: #### Ethan BARRERA, 3039-07, CBCA, 1987-08, #### [facility] ([id number]) [address] [place] [address] 16302 Urea nitrogen [Mass/Vol] 11 mg/dL Normal 5-23 [facility] Comment on above: Performed By: #### Ethan BARRERA, 3039-07, CBCA, 1987-08, #### [facility] ([id number]) [address] [place] [address] 87085 CRP [Mass/Vol]on 08-19-2023 C REACTIVE PROTEIN 0.9 mg/dL High 0.000-0.744 [facility] Comment on above: Performed By: #### Ethan BARRERA, 3039-07, CBCA, #### [facility] ([id number]) [address] [place] [address] 22561 DRUG SCREEN, URINEon 024 AMPHETAMINE/METHAMP Negative Normal NEG [facility] Comment on above: Result Comment: AMPH /METH screening cut off = 1000 ng/mL Performed By: #### A HP #### [facility] ([id number]) [address] [facility], [address] [place] [address] #### 88715-9 #### [facility] ([id number]) [address] [place] [address] 93683 BARBITURATES Negative Normal NEG [facility] Comment on above: Result Comment: Ana iturates screening cut off value = 200 ng/mL Performed By: #### A HP #### [facility] ([id number]) [address] [facility], [address] [place] [address] #### 24746-1 #### [facility] ([id number]) [address] [place] [address] 20075 BENZODIAZEPINES Negative Normal NEG [facility] Comment on above: Result Comment: Jeramie odiazepines screening cut off value = 200 ng/mL Performed By: #### A HP #### [facility] ([id number]) [address] [facility], [address] [place] [address] #### 32463-1 #### [facility] ([id number]) [address] [place] [address] 96233 CANNABINOIDS Positive Abnormal NEG [facility] Comment on above: Result Comment: Conf irmation available upon request. Cannabinoids/THC screening cut off value = 50 ng/mL Performed By: #### A HP #### [facility] ([id number]) [address] [facility] [facility], [address] [place] [address] #### 60511-1 #### [facility] ([id number]) [address] [place] [address] 13135 COCAINE METABOLITE Negative Normal NEG [facility] Comment on above: Result Comment: Coca ine screening cut off value = 300 ng/mL Performed By: #### A HP #### [facility] ([id number]) [address] [place] [address], [address] [place] [address] #### 68317-3 #### [facility] ([id number]) [address] [place] [address] 29369 ECSTASY Negative Normal NEG [facility] Comment on above: Result Comment: Ecst asy screening cut off value = 500 ng/mL This report is intended for use in clinical monitoring or management of patients. Performed By: #### A #### [facility] ([id number]) [address] [place] [address], [address] [place] [address] #### 50323-6 #### [facility] ([id number]) [address] [place] [address] 13336 METHADONE Negative Normal NEG [facility] Comment on above: Result Comment: Meth adone screening cut off value = 300 ng/mL. Performed By: #### A #### [facility] ([id number]) [address] [place] [address], [address] [place] [address] #### 57007-3 #### [facility] ([id number]) [address] [place] [address] 49869 OPIATES Negative Normal [facility] Comment on above: Result Comment: Opia chalo screening cut off value = 300 ng/mL NOTE: This test is used for the detection of codeine, hydrocodone (>1000 ng/mL), morphine and hydromorphone (>900 ng/mL) in urine. Performed By: #### A #### [facility] ([id number]) [address] [place] [address], [address] [place] [address] #### 20869-9 #### [facility] ([id number]) [address] [place] [address] [place] [address] OXYCODONE Negative Normal NEG [facility] Comment on above: Result Comment: Oxyc odone screening cut off value = 300 ng/mL NOTE: This test is used for the detection of oxycodone and oxymorphone in urine. Performed By: #### A HP #### [facility] ([id number]) [address] [place] [address], [address] [place] [address] #### 64929-4 #### [facility] ([id number]) [address] [place] [address] 07957 PHENCYCLIDINE Negative Normal NEG [facility] Comment on above: Result Comment: Phen cyclidine screening cut off value = 25 ng/mL Performed By: #### A HP #### [facility] ([id number]) [address] [place] [address], [address] [place] [address] #### 94500-1 #### [facility] ([id number]) [address] [place] [address] 38181 HCG ( test) Ql (U)o n 08-19-2023 Beta HCG ( test) Ql (U) Negative Normal NEG [facility] Comment on above: Performed By: #### 2 106-3 #### [facility] ([id number]) [address] [place] [address] 98488 LIPASEon 08-19-2023 Lipase [Catalytic activity/Vol] 25 U/L Normal 17-40 [facility] Comment on above: Performed By: #### C BRUCE, 3040-3, CBCA, #### [facility] ([id number]) [address] [place] [address] 64843 MAGNESIUMon 08-19-2023 Magnesium [Mass/Vol] 1.9 mg/dL Normal 1.8-2.6 [facility] Comment on above: Performed By: #### C BRUCE, 3040-3, CBCA, #### [facility] ([id number]) [address] [place] [address] 53905 SARS/FLU A+B/RSV by NAAT/Mol [facility] 08-19-2023 SARS/FLU A+B/RSV by NAAT/Molecular FLU [...] operators who are performing tests using either [employer] or [employer] systems and is limited to laboratories that [...] repeat. Fact Sheet for Healthcare Providers: https://www.fda.gov/ media/142863/downloa d Fact Sheet for Patients: https://www.fda.gov/ media/278250/downloa d [facility] Comment on above: Performed By: #### C OVFLR #### [facility] ([id number]) [address] [place] [address] [place] [address] URN MACROSCOPIC NURon 2023 BILIRUBIN ERA Small Abnormal NEG [facility] Comment on above: Performed By: #### N UM #### [facility] ([id number]) [address] [place] [address] [place] [address] BLOOD/HGB ERA Trace Abnormal NEG [facility] Comment on above: Performed By: #### N UM #### [facility] ([id number]) [address] [place] [address] [place] [address] GLUCOSE ERA Negative Normal NEG [facility] Comment on above: Performed By: #### N UM #### [facility] ([id number]) [address] [place] [address] [place] [address] KETONES ERA Negative Normal NEG [facility] Comment on above: Performed By: #### N UM #### [facility] ([id number]) [address] [place] [address] [place] [address] LEUKOCYTE ESTERASE ERA Small Abnormal NEG [facility] Comment on above: Performed By: #### N UM #### [facility] ([id number]) [address] [place] [address] [place] [address] NITRITE EAR Positive Abnormal NEG [facility] Comment on above: Performed By: #### N UM #### [facility] ([id number]) [address] [place] [address] [place] [address] PH ERA 6.0 Normal 5.0-8.5 [facility] Comment on above: Performed By: #### N UM #### [facility] ([id number]) [address] [place] [address] [place] [address] PROTEIN ERA Negative Normal NEG [facility] Comment on above: Performed By: #### N UM #### [facility] ([id number]) [address] [facility] [place] [address] SPECIFIC GRAVITY ERA 1.025 Normal 1.003-1.035 [facility] Comment on above: Performed By: #### N UM #### [facility] ([id number]) [address] [facility], [place] [address] UROBILINOGEN ERA >=8.0 Normal <1.1 [facility] Comment on above: Performed By: #### N UM #### [facility] ([id number]) [address] [facility], [place] [address] ED Note-Physicianon 07-23-19 ED Note-Physician Basic Information Time Seen: Bernadette Gil PA-C 07/06/2023 15:16 Chief Complaint Pt reports vaginal itching and burning with urination for 1.5 months. Brown vaginal discharge. Pt also reports sinus congestion for 3-4 days. History of Present Illness 33-year-old female presents with brown vaginal discharge for the past 2 months. 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 Nasal congestion sounds viral and can use [id number]-[id number] medications and follow-up family doctor. Afebrile, not [...] prescription medications Follow-up With When Contact Information [facility] Dept: [phone] In 3 days 07/09/2023 EST Additional Instructions: Boubacar MULLINS, Zev Webber, ORS Within 2 to 4 days [address] [place] [address]- Additional Instructions: Patient Education Viral Respiratory Infection, Pcvi-Ti-Vpzt Attestation I performed a substantive part of [...] No. Hous (more content not included)... Normal [facility] Comment on above: Result Comment: Elec tronically Signed By: Bernadette Gil PA-C\.br\Date and Time Signed: 07/06/23 16:00 EST\.br\Electronically Co-Signed By: Adolfo Hernandez MD\.br\Date and Time Co-Signed: 07/23/23 19:29 EDT Chlam/GC/Trich,NAAon 024 C. trachomatis rRNA BETZAIDA+probe Ql (Unsp spec) Negative Invalid Interpretation Code Negative [facility] Comment on above: Performed By: #### 1 [id number] #### [facility] [address] [place] [address] N. gonorrhoeae rRNA BETZAIDA+probe Ql (Unsp spec) Negative Invalid Interpretation Code Negative [facility] Comment on above: Performed By: #### 1 [id number] #### [facility] [address] [place] [address] T. vaginalis rRNA BETZAIDA+probe Ql (Unsp spec) Negative Invalid Interpretation Code Negative [facility] Comment on above: Result Comment: Perf ormed at: =G [facility] [address] [place] [id number] MD Tamika Eid Performed By: #### 1 [id number] #### [facility] [address] [place] [address] C Urineon 07-08-2023 Bacteria identified Cx Nom [...] Locations R1: This test was performed at: [facility], [address] [place] [address], [phone]- , , [facility] Comment on above: Performed By: #### 2 [id number], [id number], [id number] #### [facility] [address] [place] [address] CHEMISTRYOrdered By: SYSTEM SYSTEM on 07-06-2023 Amphetamines [...] for Treatmenton Consent for Treatment [id number] #1.00TIFF Normal [facility] Discharge Instructionson Discharge Instructions [id number] 6#1.00TIFF Normal [facility] ED Clinical Summaryon 2023 ED Clinical Summary [address] [address] ED Clinical Summary Person Information Name: SANGEETA MYLES Sowmya/[facility] Age: 33 Years : 1990 Sex: Female Language: Lao PCP: NONE, XXXX Marital Status: Single Visit [...] 07/06/2023 16:02:43 07/06/2023 16:02:43 07/06/2023 16:02:43 ADDRESS: [facility] [id number] PHYS DOC NOTES: MEDICAL INFORMATION: Prescriptions Given: Medications to Continue with No Changes Other Medications albuterol (albuterol 0.083% Inh Valerie 3 mL) 3 Milliliter Inhalation every 6 hours as needed for wheezing. PATIENT EDUCATION INFORMATION: Instructions: Viral Respiratory Infection, Bfea-Va-Lsnq Follow up: With: Address: When: Boubacar MULLINS, Zev Webber, ORS [address], [facility] [address] [place] [address] Within 2 to 4 days With: Address: When: [facility] Dept: [phone] In 3 days 07/09/2023 DIAGNOSIS: 1:Viral sinusitis; 2:Vaginal discharge; Other viral agents as the cause of diseases classified elsewhere Normal [facility] ED Patient Education Noteon 07-06-2023 [...] home: Managing pain and congestion ? 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 ? Cover your mouth when you cough. [...] provider. Document Revised: 07/23/2021 Document Reviewed: 07/23/2021 [employer] Patient Education ? 2022 MR Presta. Normal [facility] ED Patient Summaryon 024 ED Patient Summary [address] [address] Patient Discharge Instructions Person Information Name: SANGEETA MYLES Age: 33 Years Arrival Date: 07/06/2023 15:07:04 Discharge Diagnosis: 1:Viral sinusitis; 2:Vaginal discharge; Other viral agents as the cause of diseases classified elsewhere Primary Care Physician: NONE, XXXX Provider Information Primary Provider: Advanced Computer Scientist:None The exam and treatment you received in the Emergency Department were for an urgent problem and are not intended as complete care. It is important that you follow up with a doctor, nurse practitioner, or physician?s dental laboratory assistant for ongoing care. If your symptoms [...] When: Boubacar MULLINS, Zev Webber, ORS [address] [facility], [facility] [address] [place] [address] Within 2 to 4 days With: [phone] In 3 days 07/09/2023 In the event that this physician does not participate in your insurance network, please consult with your insurance company to find a nearby participating provider. Patient Education Materials: Viral Respiratory Infection, Geex-Jf-Rvzn A MESSAGE TO ALL PATIENTS REGARDING OPIOIDS PRESCRIPTION OPIOIDS: WHAT YOU NEED TO KNOW Prescription opioids can be used to help relieve nfhbfdgm-gj-wsklqk pain and are often prescribed following a [...] be strugglin (more content not included)... Normal [facility] No Panel InformationOrdered By: Bella Flower on 07-06-2023 WP No clue cells present No Trichomonas vaginalis present No yeast seen [facility] SEROLOGYOrdered By: Jules Stovereon on 07-06-2023 HCG.beta subunit (U) [Moles/Vol] Negative Normal [facility] Man Sero U BetaHcg Qualon 07-06-2023 HCG.beta subunit (U) [Moles/Vol] Negative Normal [facility] Comment on above: Performed By: #### 2 [id number], [id number], [id number] #### [facility] [address] [place] [address] U Drug Screenon 07-06-2023 Amphetamines Screen method >1000 ng/mL Ql (U) Negative Normal NEGATIVE [facility] Comment on above: Performed By: #### 2 [id number] #### [facility] [address] [place] [address] Barbiturates Screen Ql (U) Negative Normal NEGATIVE [facility] Comment on above: Performed By: #### 2 [id number] #### [facility] [address] [place] [address] Benzodiazepines Ql (U) Negative Normal NEGATIVE [facility] Comment on above: Performed By: #### 2 [id number] #### [facility] [address] [place] [address] Cannabinoids Screen Ql (U) Positive Abnormal NEGATIVE [facility] Comment on above: Performed By: #### 2 [id number] #### [facility] [address] [place] [address] Cocaine Ql (U) Negative Normal NEGATIVE [facility] Comment on above: Performed By: #### 2 [id number] #### [facility] [address] [place] [address] Opiates Screen Ql (U) Negative Normal NEGATIVE [facility] Comment on above: Performed By: #### 2 250483 #### [facility] [address] [place] [address] Phencyclidine Screen method >25 ng/mL Ql (U) Negative Normal NEGATIVE [facility] Comment on above: Performed By: #### 2 710391 #### [facility] [address] [place] [address] UA With Cult Reflexon 2023 Color (U) YELLOW Normal Yellow [facility] Comment on above: Performed By: #### 2 6041031, [id number], [id number] #### [facility] [address] [place] [address] Glucose (U) [Mass/Vol] Negative Normal Negative [facility] Comment on above: Performed By: #### 2 4577906, [id number], 3296315 #### [facility] [address] [place] [address] Ketones Ql (U) Negative Normal Negative [facility] Comment on above: Performed By: #### 2 2764607, [id number], [id number] #### [facility] [address] [place] [address] UA Blood Negative Normal Negative [facility] Comment on above: Performed By: #### 2 [id number], 70680869, [id number] #### [facility] [address] [place] [address] UA Amorph Nelsy Present Normal [facility] Comment on above: Performed By: #### 2 1480317, [id number], [id number] #### [facility] [address] [place] [address] UA Bacteria TRACE Normal Trace [facility] Comment on above: Performed By: #### 2 2939105, [id number], [id number] #### [facility] [address] [place] [address] UA Clarity CLEAR Normal Clear [facility] Comment on above: Performed By: #### 2 3700434, 80450560, [id number] #### [facility] [address] [place] [address] UA Leuk Est 2+ Abnormal Negative [facility] Comment on above: Performed By: #### 2 4690830, [id number], 3295711 #### [facility] [address] [place] [address] UA Mucous 1+ Normal [facility] Comment on above: Performed By: #### 2 0920360, [id number], 5706606 #### [facility] [address] [place] [address] UA Nitrite Negative Normal Negative [facility] Comment on above: Performed By: #### 2 4419978, 40880536, 6194555 #### [facility] [address] [place] [address] UA pH 8.5 Invalid Interpretation Code 5.0-9.0 [facility] Comment on above: Performed By: #### 2 5838233, 40038975, [id number] #### [facility] [address] [place] [address] UA Protein 2+ Abnormal Negative [facility] Comment on above: Performed By: #### 2 8594026, 43596102, 4347563 #### [facility] [address] [place] [address] UA RBC 0-3 Normal 0-3 [facility] Comment on above: Performed By: #### 2 6341975, 68850105, 7566593 #### [facility] [address] [place] [address] UA Spec Desc Clean Catch Normal [facility] Comment on above: Performed By: #### 2 6505623, [id number], 1374668 #### [facility] [address] [place] [address] UA Spec Grav 1.010 Invalid Interpretation Code 1.005-1.030 [facility] Comment on above: Performed By: #### 2 8413301, [id number], [id number] #### [facility] [address] [place] [address] UA Squam Epithelial 3-4 Normal 0-2 [facility] Comment on above: Performed By: #### 2 0352276, 42842595, 3606920 #### [facility] [address] [place] [address] UA Urobilinogen 4.0 EU/dL Abnormal 0.0-1.0 [facility] Comment on above: Performed By: #### 2 7817243, 04966530, 8540978 #### [facility] [address] [place] [address] UA WBC 16-25 Abnormal 0-5 [facility] Comment on above: Performed By: #### 2 8280607, 60128983, 2208577 #### [facility] [address] [place] [address] Urobilinogen (U) [Mass/Vol] Negative Normal Negative [facility] Comment on above: Performed By: #### 2 6686602, 10870264, 0646238 #### [facility] [address] [place], [place] [address] URINALYSISOrdered By: Jules Ny on 07-06-2023 Color (U) Yellow (07/06/23 3:19 PM) Normal Yellow [facility] UA Auto SS Ketones Ql (U) Negative [...] HCV W/PCR REFLX Reactive Abnormal NRCT [facility] Comment on above: Result Comment: Supplemental testing for HCV RNA by PCR has been ordered per CDC recommendations. Dfzqak-gv-fgxzkv ratio is >=1.00. Performed By: #### A #### [facility] ([id number]) [address] [facility], [address] [place] [address] #### [id number] #### [facility] ([id number]) [address] [place] [address] HEPATITIS A IGM Non-Reactive Normal NRCT [facility] Comment on above: Performed By: #### A HP #### [facility] ([id number]) [address] [facility], [address] [place] [address] #### 04059-8 #### [facility] ([id number]) [address] [place] [address] HEPATITIS B CORE IGM Negative Normal NEG [facility] Comment on above: Performed By: #### A HP #### [facility] ([id number]) [address] [place] [address], [address] [place] [address] #### 88375-5 #### [facility] ([id number]) [address] [place] [address] HEPATITIS B SURF AG Negative Normal NEG [facility] Comment on above: Performed By: #### A HP #### [facility] ([id number]) [address] [place] [address], [address] [place] [address] #### 82005-6 #### [facility] ([id number]) [address] [place] [address] HCV RNA BETZAIDA+probe Qnon 06-17 HCV RNA QUANT PCR [id number] IU/mL Abnormal Undetected [facility] Comment on above: Result Comment: NOTE Result in log IU/mL is 6.72. ADDITIONAL INFORMATION The quantification range of this assay is 15 to 100,000,000 IU/mL (1.18 log to 8.00 log IU/mL). Testing was performed using the valentin HCV test ([employer] Test Performed by: [facility] [address] [place] [address] Plastics Seasoner Operator: Ruddy Gonzalez M.D. Ph.D.; CLIA# [id number] Performed By: #### A HP #### [facility] ([id number]) [address] [facility], [address] [place] [address] #### 85162-8 #### [facility] ([id number]) [address] [facility], [place] [address] Cult,Urineon 12-11-2022 Cult,Urine Specimen Description .URINE Culture Several types of bacteria were identified in this specimen. Further ID and susceptibility testing is generally not helpful in this circumstance and has not been performed. Consider recollection if clinically indicated. Report Status FINAL 12/11/2022 Normal [facility] Comment on above: Performed By: #### P HEP, HIVCMB #### [address] [address] Plastics Seasoner Operator: Antonino Nova MD #### BMPCMP, BMP, CBC #### [facility] [address] [place] [address] [place] [address] Plastics Seasoner Operator: Merlin Charles MD UA w/Reflex Cultureon 2022 Bilirubin, SemiQt,Ur Negative Normal NEG [facility] Comment on above: Performed By: #### P HEP, HIVCMB #### [address] [address] Plastics Seasoner Operator: Antonino Nova MD #### BMPCMP, BMP, CBC #### [facility] [address] [place] [address] Plastics Seasoner Operator: Merlin Charles MD Blood, Urine Negative Normal NEG [facility] Comment on above: Performed By: #### P HEP, HIVCMB #### [address] [id number] Plastics Seasoner Operator: Antonino Nova MD #### BMPCMP, BMP, CBC #### [address] [place], [place] [address] Plastics Seasoner Operator: Merlin Charles MD Clarity (U) Clear Normal CLEAR [facility] Comment on above: Performed By: #### P HEP, HIVCMB #### [address] [address] Plastics Seasoner Operator: Antonino Nova MD #### BMPCMP, BMP, CBC #### [address] [place], [place] [address] Plastics Seasoner Operator: Merlin Charles MD Color (U) Yellow Normal YEL [facility] Comment on above: Performed By: #### P HEP, HIVCMB #### [address] [address] Plastics Seasoner Operator: Antonino Nova MD #### BMPCMP, BMP, CBC #### [address] [place], [place] [address] Plastics Seasoner Operator: Merlin Charles MD Glucose Ql (U) Negative Normal NEG [facility] Comment on above: Performed By: #### P HEP, HIVCMB #### [address] [address] Plastics Seasoner Operator: Antonino Nova MD #### BMPCMP, BMP, CBC #### [address] [place], [place] [address] Plastics Seasoner Operator: Merlin Charles MD Ketones Ql (U) Negative Normal NEG [facility] Comment on above: Performed By: #### P HEP, HIVCMB #### [address] [address] Plastics Seasoner Operator: Antonino Nova MD #### BMPCMP, BMP, CBC #### [address] [place], [place] [address] Plastics Seasoner Operator: Merlin Charles MD Leukocyte esterase Test strip Ql (U) LARGE Abnormal NEG [facility] Comment on above: Performed By: #### P HEP, HIVCMB #### [address] [address] Plastics Seasoner Operator: Antonino Nova MD #### BMPCMP, BMP, CBC #### [address] [place], [place] [address] Plastics Seasoner Operator: Merlin Charles MD Nitrite,Ur Negative Normal NEG [facility] Comment on above: Performed By: #### P HEP, HIVCMB #### [address] [address] Plastics Seasoner Operator: Antonino Nova MD #### BMPCMP, BMP, CBC #### [address] [place] [address] Plastics Seasoner Operator: Merlin Charles MD PH,Ur 6.0 Normal 5.0-9.0 [facility] Comment on above: Performed By: #### P HEP, HIVCMB #### [address] [address] Plastics Seasoner Operator: Antonino Nova MD #### BMPCMP, BMP, CBC #### [address] [place] [address] Plastics Seasoner Operator: Merlin Charles MD Protein Ql (U) Negative Normal NEG [facility] Comment on above: Performed By: #### P HEP, HIVCMB #### [address] [address] Plastics Seasoner Operator: Antonino Nova MD #### BMPCMP, BMP, CBC #### [address] [place], [place] [address] Plastics Seasoner Operator: Merlin Charles MD Spec. [place],Ur 1.025 High 1.010-1.020 [facility] Comment on above: Performed By: #### P HEP, HIVCMB #### [address] [address] Plastics Seasoner Operator: Antonino Nova MD #### BMPCMP, BMP, CBC #### [address] [place] [address] Plastics Seasoner Operator: Merlin Charles MD Urobilinogen,Ur Normal Normal 0.0-1.0 [facility] Comment on above: Performed By: #### P HEP, HIVCMB #### [address] [address] Plastics Seasoner Operator: Antonino Nova MD #### BMPCMP, BMP, CBC #### [address] [place] [address] Plastics Seasoner Operator: Merlin Charles MD Urinalysis,Microon 3 Bacteria 3+ Abnormal NONE [facility] Comment on above: Performed By: #### P HEP, HIVCMB #### [place] [address] Plastics Seasoner Operator: Antonino Nova MD #### BMPCMP, BMP, CBC #### [address] [place] [address] Plastics Seasoner Operator: Merlin Charles MD Epithelial cells LM Ql (Urine sed) 0 TO 2 Normal 0-25 [facility] Comment on above: Performed By: #### P HEP, HIVCMB #### [address] [address] Plastics Seasoner Operator: Antonino Nova MD #### BMPCMP, BMP, CBC #### [address] [place] [address] Plastics Seasoner Operator: Merlin Charles MD Urine RBC's 0 TO 2 Normal 0-2 [facility] Comment on above: Performed By: #### P HEP, HIVCMB #### [place] [place], [place] [address] Plastics Seasoner Operator: Antonino Nova MD #### BMPCMP, BMP, CBC #### [facility] [address] [place] [address] [place] [address] Plastics Seasoner Operator: Merlin Charles MD Urine WBC's 10 TO 20 Normal 0-5 [facility] Comment on above: Performed By: #### P HEP, HIVCMB #### [address] [place], [place] [address] Plastics Seasoner Operator: Antonino Nova MD #### BMPCMP, BMP, CBC #### [facility] [address] [place] [address] [place] [address] Plastics Seasoner Operator: Merlin Charles MD Cult,Urineon 09-24-2022 Cult,Urine Specimen Description .VOIDED URINE Culture ESCHERICHIA COLI >148678 CFU/ML STREPTOCOCCI, BETA HEMOLYTIC GROUP B >262931 CFU/ML Report Status FINAL 09/24/2022 SUSCEPTIBILITY Organism [...] Tobramycin <=1 SUSCEPTIBLE Trimethoprim/Sulfa <=20 SUSCEPTIBLE Susceptible [facility] Comment on above: Performed By: #### U RC #### [address] [id number] Plastics Seasoner Operator: Antonino Nova MD [facility] [address] [place] [address] [place] [address] Plastics Seasoner Operator: Merlin Charles MD Chlamydia/GC,DNA Ampon 09-23 Chlamydia Probe Negative Normal [facility] Comment on above: Result Comment: CHLA MYDIA [...] Performed By: #### U ANKITA, UA #### [facility] [address] [place] [address] Plastics Seasoner Operator: Merlin Charles MD #### SWCGP #### [address] [address] Plastics Seasoner Operator: Antonino Nova MD Gonorrhea Probe Negative [facility] Comment on above: Result Comment: NEIS SERIA [...] Performed By: #### U ANKITA, UA #### [facility] [address] [place] [address] Plastics Seasoner Operator: Merlni Charles MD #### SWCGP #### [address] [address] Plastics Seasoner Operator: Antonino Nova MD Trichomonas/Wet Prepon 09-22 Trichomonas/Wet Prep Specimen Descriptio n .VAGINAL SPECIMEN Direct Exam NO YEAST OBSERVED NO TRICHOMONAS SEEN NO CLUE CELLS SEEN Report Status FINAL 09/22/2022 [facility] Comment on above: Performed By: #### P HEP, HIVCMB #### [address] [address] Plastics Seasoner Operator: Antonino Nova MD #### BMPCMP, BMP, CBC #### [facility] [address] [place], [place] [address]83 Plastics Seasoner Operator: Merlin Charles MD Urinalysis, Routineon 2022 Bilirubin, SemiQt,Ur Negative Normal NEG [facility] Comment on above: Performed By: #### U MICAO, UA #### [facility] [address] [place], [place] [address] Plastics Seasoner Operator: Merlin Charles MD #### SWCGP #### [address] [address] Plastics Seasoner Operator: Antonino Nova MD Blood, Urine Negative Normal NEG [facility] Comment on above: Performed By: #### U MICAO, UA #### [facility] [address] [place] [address] [place], [place] [address]83 Plastics Seasoner Operator: Merlin Charles MD #### SWCGP #### [address] [address] Plastics Seasoner Operator: Antonino Nova MD Clarity (U) Cloudy Abnormal CLEAR [facility] Comment on above: Performed By: #### U MICAO, UA #### [address] [place], [place] [address] Plastics Seasoner Operator: Merlin Charles MD #### SWCGP #### [address] [address] Plastics Seasoner Operator: Antonino Nova MD Color (U) Yellow Normal YEL [facility] Comment on above: Performed By: #### U MICAO, UA #### [facility] [address] [place], [place] [address] Plastics Seasoner Operator: Merlin Charles MD #### SWCGP #### [address] [address] Plastics Seasoner Operator: Antonino Nova MD Glucose Ql (U) Negative Normal NEG [facility] Comment on above: Performed By: #### U MICAO, UA #### [facility] [address] [place] [address] [address], [place] 9[address]83 Plastics Seasoner Operator: Merlin Charles MD #### SWCGP #### [address] [address] Plastics Seasoner Operator: Antonino Nova MD Ketones Ql (U) Negative Normal NEG [facility] Comment on above: Performed By: #### U MICAO, UA #### [facility] [address] [place] [address] [address], [place] [address]83 Plastics Seasoner Operator: Merlin Charles MD #### SWCGP #### [address] [address] Plastics Seasoner Operator: Antonino Nova MD Leukocyte esterase Test strip Ql (U) MODERATE Abnormal NEG [facility] Comment on above: Performed By: #### U MICAO, UA #### [facility] [address] [place] [address] [address], [place] [address]66[address] Plastics Seasoner Operator: Merlin Charles MD #### SWCGP #### [address] [address] Plastics Seasoner Operator: Antonino Nova MD Nitrite,Ur Positive Abnormal NEG [facility] Comment on above: Performed By: #### U MICAO, UA #### [facility] [address] [place] [address] [address], [place] [address] Plastics Seasoner Operator: Merlin Charles MD #### SWCGP #### [address] [address] Plastics Seasoner Operator: Antonino Nova MD PH,Ur 6.0 Normal 5.0-9.0 [facility] Comment on above: Performed By: #### U MICAO, UA #### [address] [place] [address] Plastics Seasoner Operator: Merlin Charles MD #### SWCGP #### [address] [address] Plastics Seasoner Operator: Antonino Nova MD Protein Ql (U) Negative Normal NEG [facility] Comment on above: Performed By: #### U MICAO, UA #### [facility] [address] [place] [address] [place] [address] Plastics Seasoner Operator: Merlin Charles MD #### SWCGP #### [address] [address] Plastics Seasoner Operator: Antonino Nova MD Spec. [place],Ur 1.025 High 1.010-1.020 [facility] Comment on above: Performed By: #### U MICAO, UA #### [address] [place] [address] Plastics Seasoner Operator: Merlin Charles MD #### SWCGP #### [address] [address] Plastics Seasoner Operator: Antonino Nova MD Urobilinogen,Ur Normal Normal NORM [facility] Comment on above: Performed By: #### U MICAO, UA #### [address] [place] [address] Plastics Seasoner Operator: Merlin Charles MD #### SWCGP #### [address] [address] Pl[employer] Seasoner Operator: Antonino Nova MD Urinalysis,Microon 3 Bacteria 3+ Abnormal NONE [facility] Comment on above: Performed By: #### U MICAO, UA #### [address] [place], [place] [id number] [employer]astics Seasoner Operator: Merlin Charles MD #### SWCGP #### [address] [place] [address] Plastics Seasoner Operator: Antonino Nova MD Epithelial cells LM Ql (Urine sed) 0 TO 2 Normal 0-25 [facility] Comment on above: Performed By: #### U KIMO, UA #### [facility] [address] [place], [place] [id number] Plastics Seasoner Operator: Merlin Charles MD #### SWCGP #### [address] [address] Plastics Seasoner Operator: Antonino Nova MD Mucus Strands 1+ Abnormal NONE [facility] Comment on above: Performed By: #### U KIMO, UA #### [facility] [address] [place] [address] Dr. [place], [place] [id number] Plastics Seasoner Operator: Merlin Charles MD #### SWCGP #### [address] [address] Plastics Seasoner Operator: Antonino Nova MD Urine RBC's 0 TO 2 Normal 0-2 [facility] Comment on above: Performed By: #### U KIMO, UA #### [facility] [address] [place] [address] Dr. [place], [place] [id number] Plastics Seasoner Operator: Merlin Charles MD #### SWCGP #### [address] [address] Plastics Seasoner Operator: Antonino Nova MD Urine WBC's 10 TO 20 Normal 0-5 [facility] Comment on above: Performed By: #### U KIMO, UA #### [facility] [address] [place], [place] [phone] [employer]astics Seasoner Operator: Merlin Charles MD #### SWCGP #### [address] [address] Plastics Seasoner Operator: Antonino Nova MD HCV RNA,Quant,PCRon 09-15-19 23 HCV Quant [id number] IU/mL Normal [facility] Comment on above: Performed By: #### H CVQN #### [facility] [address] [place] [address] Plastics Seasoner Operator: Antonino Nova MD [facility] [address] [place] [address] [place] [address] Plastics Seasoner Operator: Merlin Charles MD HCV RNA,Quant Detected Abnormal NOTDET [facility] Comment on above: Result Comment: [...] (HCT/P). Performed By: #### H CVQN #### [address] [place] [address] Plastics Seasoner Operator: Antonino Nova MD [address] [place] [address] Plastics Seasoner Operator: Merlin Charles MD HCV,RNA Log 6.95 Log IU/mL [facility] Comment on above: Performed By: #### H CVQN #### [address] [place] [address] Plastics Seasoner Operator: Antonino Nova MD [facility] [address] [place] [address] [place] [address] Plastics Seasoner Operator: Merlin Charles MD CBCon 09-13-2022 Erythrocyte distribution width (RBC) [Ratio] 17.7 % High 11.8-14.4 [facility] Comment on above: Performed By: #### P HEP, HIVCMB #### [address] [address] Plastics Seasoner Operator: Antonino Nova MD #### BMPCMP, BMP, CBC #### [address] [place] [phone] Plastics Seasoner Operator: Merlin Charles MD Hematocrit (Bld) [Volume fraction] 39.8 % Normal 36.3-47.1 [facility] Comment on above: Performed By: #### P HEP, HIVCMB #### [address] [address] Plastics Seasoner Operator: Antonino Nova MD #### BMPCMP, BMP, CBC #### [address] [place] [phone] Plastics Seasoner Operator: Merlin Charles MD Hemoglobin (Bld) [Mass/Vol] 13.5 g/dL Normal 11.9-15.1 [facility] Comment on above: Performed By: #### P HEP, HIVCMB #### [place] [address] Plastics Seasoner Operator: Antonino Nova MD #### BMPCMP, BMP, CBC #### [address] [place] [phone] Plastics Seasoner Operator: Merlin Charles MD MCH (RBC) [Entitic mass] 35.6 pg High 25.2-33.5 [facility] Comment on above: Performed By: #### P HEP, HIVCMB #### [address] [id number] Plastics Seasoner Operator: Antonino Nova MD #### BMPCMP, BMP, CBC #### [address] [place] [phone] Plastics Seasoner Operator: Merlin Charles MD MCHC (RBC) [Mass/Vol] 33.9 g/dL Normal 28.4-34.8 [facility] Comment on above: Performed By: #### P HEP, HIVCMB #### [address] [phone] Plastics Seasoner Operator: Antonino Nova MD #### BMPCMP, BMP, CBC #### [address] [place] [phone] Plastics Seasoner Operator: Merlin Charles MD MCV (RBC) [Entitic vol] 105.0 fL High 82.6-102.9 [facility] Comment on above: Performed By: #### P HEP, HIVCMB #### [address] [address] Plastics Seasoner Operator: Antonino Nova MD #### BMPCMP, BMP, CBC #### [address] [place] [phone] Plastics Seasoner Operator: Merlin Charles MD NRBC Automated 0.0 per 100 WBC Normal 0.0 [facility] Comment on above: Performed By: #### P HEP, HIVCMB #### [place] [address] Plastics Seasoner Operator: Antonino Nova MD #### BMPCMP, BMP, CBC #### [address] [place] [phone] Plastics Seasoner Operator: Merlin Charles MD Platelet mean volume (Bld) [Entitic vol] 10.2 fL Normal 8.1-13.5 [facility] Comment on above: Performed By: #### P HEP, HIVCMB #### [address] [phone] Plastics Seasoner Operator: Antonino Nova MD #### BMPCMP, BMP, CBC #### [address] [place] [phone] Plastics Seasoner Operator: Merlin Charles MD Platelets (Bld) [#/Vol] 128 10*3/uL Low 138-453 [facility] Comment on above: Performed By: #### P HEP, HIVCMB #### [address] [address] Plastics Seasoner Operator: Antonino Nova MD #### BMPCMP, BMP, CBC #### [address] [place] [phone] Plastics Seasoner Operator: Merlin Charles MD RBC (Bld) [#/Vol] 3.79 10*6/uL Low 3.95-5.11 [facility] Comment on above: Performed By: #### P HEP, HIVCMB #### [place] [address] Plastics Seasoner Operator: Antonino Nova MD #### BMPCMP, BMP, CBC #### [address] [place] [facility]83 Plastics Seasoner Operator: Merlin Charles MD WBC (Bld) [#/Vol] 3.7 10*3/uL Normal 3.5-11.3 [facility] Comment on above: Performed By: #### P HEP, HIVCMB #### [place] [address] Plastics Seasoner Operator: Antonino Nova MD #### BMPCMP, BMP, CBC #### [address] [place] [address] Plastics Seasoner Operator: Merlin Charles MD Hematocrit (Bld) [Volume fraction] 39.8 % 36.3 - 47.1 % [facility] Hemoglobin (Bld) [Mass/Vol] 13.5 g/dL 11.9 - 15.1 g/dL [facility] Interpretation and review of laboratory results Abnormal [facility] MCH (RBC) [Entitic mass] 35.6 pg High 25.2 - 33.5 pg [facility] MCHC (RBC) [Mass/Vol] 33.9 g/dL 28.4 - 34.8 g/dL [facility] MCV (RBC) [Entitic vol] 105.0 fL High 82.6 - 102.9 fL [facility] NRBC Automated 0.0 0.0 per 100 WBC [facility] Platelet distribution width (Bld) [Ratio] 17.7 % High 11.8 - 14.4 % [facility] Platelet mean volume (Bld) [Entitic vol] 10.2 fL 8.1 - 13.5 fL [facility] Platelets (Bld) [#/Vol] 128 10*3/uL Low [facility] RBC (Bld) [#/Vol] 3.79 10*6/uL Low 3.95 - 5.1 1 m/uL [facility] WBC (Bld) [#/Vol] 3.7 10*3/uL [facility] Comp Metabolic Profon 2022 Albumin [Mass/Vol] 4.1 g/dL Normal 3.5-5.2 [facility] Comment on above: Performed By: #### P HEP, HIVCMB #### [address] [id number] Plastics Seasoner Operator: Antonino Nova MD #### BMPCMP, BMP, CBC #### [address] [place] [address] Plastics Seasoner Operator: Merlin Charles MD Albumin/Glob Ratio 2.1 Normal 1.0-2.5 [facility] Comment on above: Performed By: #### P HEP, HIVCMB #### [address] [phone] Plastics Seasoner Operator: Antonnio Nova MD #### BMPCMP, BMP, CBC #### [address] [place] [address] Plastics Seasoner Operator: Merlin Charles MD Alkaline Phos 67 U/L Normal 35-104 [facility] Comment on above: Performed By: #### P HEP, HIVCMB #### [address] [address] Plastics Seasoner Operator: Antonino Nova MD #### BMPCMP, BMP, CBC #### [address] [place] [address] Plastics Seasoner Operator: Merlin Charles MD ALT [Catalytic activity/Vol] 41 U/L High 5-33 [facility] Comment on above: Performed By: #### P HEP, HIVCMB #### [address] [address] Plastics Seasoner Operator: Antonino Nova MD #### BMPCMP, BMP, CBC #### [address] [place] [phone] Plastics Seasoner Operator: Merlin Charles MD Anion gap [Moles/Vol] 6 mmol/L Low 9-17 [facility] Comment on above: Performed By: #### P HEP, HIVCMB #### [address] [address] Plastics Seasoner Operator: Antonino Nova MD #### BMPCMP, BMP, CBC #### [address] [place] [phone] Plastics Seasoner Operator: Merlin Charles MD AST [Catalytic activity/Vol] 52 U/L High <32 [facility] Comment on above: Performed By: #### P HEP, HIVCMB #### [address] [address] Plastics Seasoner Operator: Antonino Nova MD #### BMPCMP, BMP, CBC #### [address] [place] [address] Plastics Seasoner Operator: Merlin Charles MD Bilirubin [Mass/Vol] 0.6 mg/dL Normal 0.3-1.2 [facility] Comment on above: Performed By: #### P HEP, HIVCMB #### [address] [address] Plastics Seasoner Operator: Antonino Nova MD #### BMPCMP, BMP, CBC #### [address] [place] [phone] Plastics Seasoner Operator: Merlin Charles MD BUN/CRE Ratio 16 Normal 9-20 [facility] Comment on above: Performed By: #### P HEP, HIVCMB #### [address] [address] Plastics Seasoner Operator: Antonino Nova MD #### BMPCMP, BMP, CBC #### [address] [place] [phone] Plastics Seasoner Operator: Merlin Charles MD Calcium [Mass/Vol] 10.0 mg/dL Normal 8.6-10.4 [facility] Comment on above: Performed By: #### P HEP, HIVCMB #### [address] [address] Plastics Seasoner Operator: Antonino Nova MD #### BMPCMP, BMP, CBC #### [address] [place] [phone] Plastics Seasoner Operator: Merlin Charles MD Chloride [Moles/Vol] 108 mmol/L High 98-107 [facility] Comment on above: Performed By: #### P HEP, HIVCMB #### [address] [address] Plastics Seasoner Operator: Antonino Nova MD #### BMPCMP, BMP, CBC #### [address] [place] [address] Plastics Seasoner Operator: Merlin Charles MD CO2 [Moles/Vol] 28 mmol/L Normal 20-31 [facility] Comment on above: Performed By: #### P HEP, HIVCMB #### [address] [place] [address] Plastics Seasoner Operator: Antonino Nova MD #### BMPCMP, BMP, CBC #### [facility] [address] [place] [address] Plastics Seasoner Operator: Merlin Charles MD Creatinine [Mass/Vol] 0.61 mg/dL Normal 0.50-0.90 [facility] Comment on above: Performed By: #### P HEP, HIVCMB #### [address] [phone] Plastics Seasoner Operator: Antonino Nova MD #### BMPCMP, BMP, CBC #### [address] [place] [address] Plastics Seasoner Operator: Merlin Charles MD GFR/1.73 sq M.predicted among non-blacks MDRD (S/P/Bld) [Vol rate/Area] mL/min/{1.73_m2} Normal >60 [facility] Comment on above: Result Comment: These results [...] Performed By: #### P HEP, HIVCMB #### [address] [id number] Plastics Seasoner Operator: Antonino Nova MD #### BMPCMP, BMP, CBC #### [facility] [address] [place] [address] Plastics Seasoner Operator: Merlin Charles MD Glucose [Mass/Vol] 87 mg/dL Normal 70-99 [facility] Comment on above: Performed By: #### P HEP, HIVCMB #### [address] [address] Plastics Seasoner Operator: Antonino Nova MD #### BMPCMP, BMP, CBC #### [facility] [address] [place] [address] Dr. [place] [phone] Plastics Seasoner Operator: Merlin Charles MD Potassium [Moles/Vol] 5.0 mmol/L Normal 3.7-5.3 [facility] Comment on above: Performed By: #### P HEP, HIVCMB #### [address] [address] Plastics Seasoner Operator: Antonino Nova MD #### BMPCMP, BMP, CBC #### [address] [place] [phone] Plastics Seasoner Operator: Merlin Charles MD Protein [Mass/Vol] 6.1 g/dL Low 6.4-8.3 [facility] Comment on above: Performed By: #### P HEP, HIVCMB #### [address] [address] Plastics Seasoner Operator: Antonino Nova MD #### BMPCMP, BMP, CBC #### [address] [place] [phone] Plastics Seasoner Operator: Merlin Charles MD Sodium [Moles/Vol] 142 mmol/L Normal 135-144 [facility] Comment on above: Performed By: #### P HEP, HIVCMB #### [address] [address] Plastics Seasoner Operator: Antonino Nova MD #### BMPCMP, BMP, CBC #### [address] [place] [phone] Plastics Seasoner Operator: Merlin Charles MD Urea nitrogen [Mass/Vol] 10 mg/dL Normal 6-20 [facility] Comment on above: Performed By: #### P HEP, HIVCMB #### [facility] [address] [place] [address] Plastics Seasoner Operator: Antonino Nova MD #### BMPCMP, BMP, CBC #### [facility] [address] [place] [address] Plastics Seasoner Operator: Merlin Charles MD Comprehensive Metabolic Pane [facility] 09-13-2022 Albumin [Mass/Vol] 4.1 g/dL 3.5 - 5.2 g/dL [facility] Albumin/Globulin [Mass ratio] 2.1 {ratio} 1.0 - 2.5 [facility] ALP [Catalytic activity/Vol] 67 U/L 35 - 104 U/L [facility] ALT [Catalytic activity/Vol] 41 U/L High 5 - 33 U/L [facility] Anion gap [Moles/Vol] 6 mmol/L Low 9 - 17 mmol/L [facility] AST [Catalytic activity/Vol] 52 U/L High NINF - 32 U/L [facility] Bilirubin [Mass/Vol] 0.6 mg/dL 0.3 - 1 .2 mg/dL [facility] Calcium [Mass/Vol] 10.0 mg/dL 8.6 - 10. 4 mg/dL [facility] Chloride [Moles/Vol] 108 mmol/L High 98 - 10 7 mmol/L [facility] CO2 [Moles/Vol] 28 mmol/L 20 - 31 mmol/L [facility] Creatinine [Mass/Vol] 0.61 mg/dL 0.50 - 0.90 mg/dL [facility] GFR/1.73 sq M.predicted MDRD (S/P/Bld) [Vol rate/Area] - PINF [facility] Comment on above: These results are [...] [Mass/Vol] 87 mg/dL 70 - 99 mg/dL [facility] Interpretation and review of laboratory results Abnormal [facility] Potassium [Moles/Vol] 5.0 mmol/L 3.7 - 5.3 mmol/L [facility] Protein [Mass/Vol] 6.1 g/dL Low 6.4 - 8.3 g/dL [facility] Sodium [Moles/Vol] 142 mmol/L 135 - 144 mmol/L [facility] Urea nitrogen [Mass/Vol] 10 mg/dL 6 - 20 mg/dL [facility] Urea nitrogen/Creatinine (Bld) [Mass ratio] 16 9 - 20 [facility] HCG Qualitative, Serumon hCG Qual Negative NEGATIVE [facility] Comment on above: Specimens with hCG l evels near the threshold of the test (25 mIU/mL) may give a negative or indeterminate result. In such cases, another test should be performed with a new specimen in 48-72 hours. If early is suspected clinically in this setting, correlation with quantitative serum b-hCG level is suggested. [employer] has confirmed the use of plasma for this test. This has not been cleared or approved by the [place]. Food and Drug Administration. The FDA has determined that such clearance is not necessary. [facility] HCG Screen, Bloodon 09-14-19 HCG Screen, Blood Negative Normal [facility] Comment on above: Result Comment: Spec imens with hCG levels near the threshold of the test (25 mIU/mL) may give a negative or indeterminate result. In such cases, another test should be performed with a new specimen in 48-72 hours. If early is suspected clinically in this setting, correlation with quantitative serum b-hCG level is suggested. [employer] has confirmed the use of plasma for this test. This has not been cleared or approved by the U.S. Food and Drug Administration. The FDA has determined that such clearance is not necessary. Performed By: #### P HEP, HIVCMB #### [address] [place] [address] Plastics Seasoner Operator: Antonino Nova MD #### BMPCMP, BMP, CBC #### [facility] [address] [place], [place] [id number] Plastics Seasoner Operator: Merlin Charles MD HCV RNA,Quant,PCRon 09-14-19 23 Source .PLASMA Normal [facility] Comment on above: Performed By: #### H CVQN #### [address] [address] Plastics Seasoner Operator: Antonino Nova MD [facility] [address] [place], [place] [phone] Plastics Seasoner Operator: Merlin Charles MD HIV Ag/Abon 09-13-2022 HIV Ag/Ab Non-Reactive Normal NR [facility] Comment on above: Result Comment: No l aboratory evidence of HIV infection. If acute HIV infection is suspected, consider testing for HIV-1 RNA. Performed By: #### P HEP, HIVCMB #### [address] [address] Plastics Seasoner Operator: Antonino Nova MD #### BMPCMP, BMP, CBC #### [address] [place], [place] 0638983 Plastics Seasoner Operator: Merlin Charles MD HIV Screenon 09-13-2022 HIV 1+2 Ab+HIV1 p24 Ag IA Ql Non-Reactive NONREACTIVE [facility] Comment on above: No laboratory eviden ce of HIV infection. If acute HIV infection is suspected, consider testing for HIV-1 RNA. [facility] Hepatitis Acute Jonnie 09-13 Hep A Ab,IgM Non-Reactive Normal NR [facility] Comment on above: Performed By: #### P HEP, HIVCMB #### [address] [address] Plastics Seasoner Operator: Antonino Nova MD #### BMPCMP, BMP, CBC #### [address] [place] [address] Plastics Seasoner Operator: Merlin Charles MD Hep B Core Ab,IgM Non-Reactive Normal [facility] Comment on above: Performed By: #### P HEP, HIVCMB #### [address] [place] [address] Plastics Seasoner Operator: Antonino Nova MD #### BMPCMP, BMP, CBC #### [address] [place], [place] [phone] Plastics Seasoner Operator: Merlin Charles MD Hep B Surf Ag Non-Reactive Normal [facility] Comment on above: Performed By: #### P HEP, HIVCMB #### [address] [address] Plastics Seasoner Operator: Antonino Nova MD #### BMPCMP, BMP, CBC #### [address] [place], [place] [id number] Plastics Seasoner Operator: Merlin Charles MD Hep C Ab Reactive Abnormal [facility] Comment on above: Result Comment: The hepatitis [...] Performed By: #### P HEP, HIVCMB #### [address] [address] Plastics Seasoner Operator: Antonino Nova MD #### BMPCMP, BMP, CBC #### [address] [place], [place] 7305983 Plastics Seasoner Operator: Merlin Charles MD Hepatitis Panel, [facility] HAV IgM Ql (S) Non-Reactive NONREACTIVE [facility] HBV core IgM Ql (S) Non-Reactive NONREACTIVE [facility] HBV surface Ag IA Ql Non-Reactive NONREACTIVE B ON [facility] HCV Ab IA Ql Reactive Abnormal NONREACTIVE [facility] Comment on above: The hepatitis [...] Interpretation and review of laboratory results Abnormal [facility] Comp Metabolic Addonon 04-20 Albumin [Mass/Vol] 4.5 g/dL Normal 3.5-5.2 [facility] Comment on above: Performed By: #### P HEP, HIVCMB #### [address] [id number] Plastics Seasoner Operator: Antonino Nova MD #### BMPCMP, BMP, CBC #### [facility] [address] [place] [address] [place] [address] Plastics Seasoner Operator: Merlin Charles MD Albumin/Glob Ratio 2.0 Normal 1.0-2.5 [facility] Comment on above: Performed By: #### P HEP, HIVCMB #### [address] [id number] Plastics Seasoner Operator: Antonino Nova MD #### BMPCMP, BMP, CBC #### [address] [place] [address] Plastics Seasoner Operator: Merlin Charles MD Alkaline Phos 81 U/L Normal 35-104 [facility] Comment on above: Performed By: #### P HEP, HIVCMB #### [address] [phone] Plastics Seasoner Operator: Antonino Nova MD #### BMPCMP, BMP, CBC #### [facility] [address] [place], [place] 1343083 Plastics Seasoner Operator: Merlin Charles MD ALT [Catalytic activity/Vol] 106 U/L High 5-33 [facility] Comment on above: Performed By: #### P HEP, HIVCMB #### [address] [id number] Plastics Seasoner Operator: Antonino Nova MD #### BMPCMP, BMP, CBC #### [address] [place], [place] [id number] Plastics Seasoner Operator: Merlin Charles MD AST [Catalytic activity/Vol] 77 U/L High <32 [facility] Comment on above: Performed By: #### P HEP, HIVCMB #### [address] [id number] Plastics Seasoner Operator: Antonino Nova MD #### BMPCMP, BMP, CBC #### [address] [place], [place] 1647083 Plastics Seasoner Operator: Merlin Charles MD Bilirubin [Mass/Vol] 0.6 mg/dL Normal 0.3-1.2 [facility] Comment on above: Performed By: #### P HEP, HIVCMB #### [address] [id number] Plastics Seasoner Operator: Antonino Nova MD #### BMPCMP, BMP, CBC #### [address] [place], [place] 8296883 Plastics Seasoner Operator: Merlin Charles MD Protein [Mass/Vol] 6.7 g/dL Normal 6.4-8.3 [facility] Comment on above: Performed By: #### P HEP, HIVCMB #### [address] [id number] Plastics Seasoner Operator: Antonino Nova MD #### BMPCMP, BMP, CBC #### [address] [place], [place] [phone] Plastics Seasoner Operator: Merlin Charles MD HCV RNA,Quant,PCRon 04-20-20 HCV Quant 1,330,000 IU/mL Normal [facility] Comment on above: Performed By: #### P HEP, HIVCMB #### [address] [address] Plastics Seasoner Operator: Antonino Nova MD #### BMPCMP, BMP, CBC #### [facility] [address] [place], [place] [phone] Plastics Seasoner Operator: Merlin Charles MD HCV RNA,Quant Detected Abnormal NOTDET [facility] Comment on above: Result Comment: [...] Performed By: #### P HEP, HIVCMB #### [address] [address] Plastics Seasoner Operator: Antonino Nova MD #### BMPCMP, BMP, CBC #### [facility] [address] [place], [place] 5772683 Plastics Seasoner Operator: Merlin Charles MD HCV,RNA Log 6.12 Log IU/mL [facility] Comment on above: Performed By: #### P HEP, HIVCMB #### [address] [address] Plastics Seasoner Operator: Antonino Nova MD #### BMPCMP, BMP, CBC #### [facility] [address] [place], [place] 1462383 Plastics Seasoner Operator: Merlin Charles MD Basic Metabolic Profon 04-19 Anion gap [Moles/Vol] 7 mmol/L Low - [facility] Comment on above: Performed By: #### P HEP, HIVCMB #### [address] [id number] Plastics Seasoner Operator: Antonino Nova MD #### BMPCMP, BMP, CBC #### [facility] [address] [place] [address] Plastics Seasoner Operator: Merlin Charles MD BUN/CRE Ratio 20 Normal - [facility] Comment on above: Performed By: #### P HEP, HIVCMB #### [address] [id number] Plastics Seasoner Operator: Antonino Nova MD #### BMPCMP, BMP, CBC #### [facility] [address] [place], [place] 4338683 Plastics Seasoner Operator: Merlin Charles MD Calcium [Mass/Vol] 9.9 mg/dL Normal 8.6-10.4 [facility] Comment on above: Performed By: #### P HEP, HIVCMB #### [address] [phone] Plastics Seasoner Operator: Antonino Nova MD #### BMPCMP, BMP, CBC #### [facility] [address] [place], [place] 4114083 Plastics Seasoner Operator: Merlin Charles MD Chloride [Moles/Vol] 106 mmol/L Normal 98-107 [facility] Comment on above: Performed By: #### P HEP, HIVCMB #### [address] [address] [employer] Season[employer] Operator: Antonino Nova MD #### BMPCMP, BMP, CBC #### [facility] [address] [place], [place] [phone] Pl[employer] Seasoner Operator: Merlin Charles MD CO2 [Moles/Vol] 29 mmol/L Normal 20-31 [facility] Comment on above: Performed By: #### P HEP, HIVCMB #### [facility] [address] [place], [place] [id number] Plastics Seasoner Operator: Antonino Nova MD #### BMPCMP, BMP, CBC #### [facility] [address] [place], [place] [phone] Pl[employer] Seasoner Operator: Merlin Charles MD Creatinine [Mass/Vol] 0.79 mg/dL Normal 0.50-0.90 [facility] Comment on above: Performed By: #### P HEP, HIVCMB #### [address] [phone] Pl[employer] Seasoner Operator: Antonino Nova MD #### BMPCMP, BMP, CBC #### [facility] [address] [place], [place] [id number] Pl[employer] Seasoner Operator: Merlin Charles MD GFR/1.73 sq M.predicted among non-blacks MDRD (S/P/Bld) [Vol rate/Area] mL/min/{1.73_m2} Normal >60 [facility] Comment on above: Result Comment: Effective Feb [...] Performed By: #### P HEP, HIVCMB #### [facility] [address] [place] [address] [id number] Pl[employer] Season[employer] Operator: Antonino Nova MD #### BMPCMP, BMP, CBC #### [address] [place], [place] [phone] Plastics Seasoner Operator: Merlin Charles MD Glucose [Mass/Vol] 98 mg/dL Normal 70-99 [facility] Comment on above: Performed By: #### P HEP, HIVCMB #### [address] [address] Plastics Seasoner Operator: Antonino Nova MD #### BMPCMP, BMP, CBC #### [address] [place], [place] [phone] Plastics Seasoner Operator: Merlin Charles MD Potassium [Moles/Vol] 4.6 mmol/L Normal 3.7-5.3 [facility] Comment on above: Performed By: #### P HEP, HIVCMB #### [address] [phone] [employer] Season[employer] Operator: Antonino Nova MD #### BMPCMP, BMP, CBC #### [address] [place], [place] [phone] Plastics Seasoner Operator: Merlin Charles MD Sodium [Moles/Vol] 142 mmol/L Normal 135-144 [facility] Comment on above: Performed By: #### P HEP, HIVCMB #### [address] [address] Plastics Seasoner Operator: Antonino Nova MD #### BMPCMP, BMP, CBC #### [address] [place], [place] [phone] Plastics Seasoner Operator: Merlin Charles MD Urea nitrogen [Mass/Vol] 16 mg/dL Normal 6-20 [facility] Comment on above: Performed By: #### P HEP, HIVCMB #### [address] [address] Plastics Seasoner Operator: Antonino Nova MD #### BMPCMP, BMP, CBC #### [address] [place], [place] [phone] Plastics Seasoner Operator: Merlin Charles MD CBCon 04-19-2022 Erythrocyte distribution width (RBC) [Ratio] 15.2 % High 11.8-14.4 [facility] Comment on above: Performed By: #### P HEP, HIVCMB #### [address] [phone] Pl[employer] Seasoner Operator: Antonino Nova MD #### BMPCMP, BMP, CBC #### [address] [place], [place] [phone] Plastics Seasoner Operator: Merlin Charles MD Hematocrit (Bld) [Volume fraction] 41.4 % Normal 36.3-47.1 [facility] Comment on above: Performed By: #### P HEP, HIVCMB #### [address] [address] Plastics Seasoner Operator: Antonino Nova MD #### BMPCMP, BMP, CBC #### [address] [place] [address] Plastics Seasoner Operator: Merlin Charles MD Hemoglobin (Bld) [Mass/Vol] 13.3 g/dL Normal 11.9-15.1 [facility] Comment on above: Performed By: #### P HEP, HIVCMB #### [address] [address] Plastics Seasoner Operator: Antonino Noav MD #### BMPCMP, BMP, CBC #### [address] [place] [address] Plastics Seasoner Operator: Merlin Charles MD MCH (RBC) [Entitic mass] 33.8 pg High 25.2-33.5 [facility] Comment on above: Performed By: #### P HEP, HIVCMB #### [address] [address] Plastics Seasoner Operator: Antonino Nova MD #### BMPCMP, BMP, CBC #### [address] [place] [phone] Plastics Seasoner Operator: Merlin Charles MD MCHC (RBC) [Mass/Vol] 32.1 g/dL Normal 28.4-34.8 [facility] Comment on above: Performed By: #### P HEP, HIVCMB #### [address] [phone] Plastics Seasoner Operator: Antonino Nova MD #### BMPCMP, BMP, CBC #### [address] [place] [phone] Plastics Seasoner Operator: Merlin Charles MD MCV (RBC) [Entitic vol] 105.3 fL High 82.6-102.9 [facility] Comment on above: Performed By: #### P HEP, HIVCMB #### [place] [address] Plastics Seasoner Operator: Antonino Nova MD #### BMPCMP, BMP, CBC #### [address] [place] [phone] Plastics Seasoner Operator: Merlin Charles MD NRBC Automated 0.0 per 100 WBC Normal 0.0 [facility] Comment on above: Performed By: #### P HEP, HIVCMB #### [place] [address] Plastics Seasoner Operator: Antonino Nova MD #### BMPCMP, BMP, CBC #### [address] [place] [phone] Plastics Seasoner Operator: Merlin Charles MD Platelet mean volume (Bld) [Entitic vol] 9.1 fL Normal 8.1-13.5 [facility] Comment on above: Performed By: #### P HEP, HIVCMB #### [address] [address] Plastics Seasoner Operator: Antonino Nova MD #### BMPCMP, BMP, CBC #### [address] [place], [place] [phone] Plastics Seasoner Operator: Merlin Charles MD Platelets (Bld) [#/Vol] 203 10*3/uL Normal 138-453 [facility] Comment on above: Performed By: #### P HEP, HIVCMB #### [address] [address] Plastics Seasoner Operator: Antonino Nova MD #### BMPCMP, BMP, CBC #### [address] [place] [phone] Plastics Seasoner Operator: Merlin Charles MD RBC (Bld) [#/Vol] 3.93 10*6/uL Low 3.95-5.11 [facility] Comment on above: Performed By: #### P HEP, HIVCMB #### [address] [address] Plastics Seasoner Operator: Antonino Nova MD #### BMPCMP, BMP, CBC #### [address] [place] [phone] Plastics Seasoner Operator: Merlin Charles MD WBC (Bld) [#/Vol] 4.1 10*3/uL Normal 3.5-11.3 [facility] Comment on above: Performed By: #### P HEP, HIVCMB #### [address] [address] Plastics Seasoner Operator: Antonino Nova MD #### BMPCMP, BMP, CBC #### [address] [place], [place] [phone] Plastics Seasoner Operator: Merlin Charles MD HCV RNA,Quant,PCRon 04-19-20 22 Source .PLASMA Normal [facility] Comment on above: Performed By: #### P HEP, HIVCMB #### [address] [address] Plastics Seasoner Operator: Antonino Nova MD #### BMPCMP, BMP, CBC #### [address] [place], [place] [phone] Plastics Seasoner Operator: Merlin Charles MD HIV Ag/Abon 04-19-2022 HIV Ag/Ab Non-Reactive Normal [facility] Comment on above: Result Comment: No l aboratory evidence of HIV infection. If acute HIV infection is suspected, consider testing for HIV-1 RNA. Performed By: #### P HEP, HIVCMB #### [address] [address] Plastics Seasoner Operator: Antonino Nova MD #### BMPCMP, BMP, CBC #### [address] [place] [address] Plastics Seasoner Operator: Merlin Charles MD Hepatitis Acute [facility] 04-19 Hep A Ab,IgM Non-Reactive Normal [facility] Comment on above: Performed By: #### P HEP, HIVCMB #### [address] [address] Plastics Seasoner Operator: Antonino Nova MD #### BMPCMP, BMP, CBC #### [address] [place] [address] Plastics Seasoner Operator: Merlin Charles MD Hep B Core Ab,IgM Non-Reactive Normal [facility] Comment on above: Performed By: #### P HEP, HIVCMB #### [address] [address] Plastics Seasoner Operator: Antonino Nova MD #### BMPCMP, BMP, CBC #### [address] [place] [address] Plastics Seasoner Operator: Merlin Charles MD Hep B Surf Ag Non-Reactive Normal [facility] Comment on above: Performed By: #### P HEP, HIVCMB #### [facility] [address] [place], [place] [phone] Plastics Seasoner Operator: Antonino Nova MD #### BMPCMP, BMP, CBC #### [facility] [address] [place] [address] [place] [address] Plastics Seasoner Operator: Merlin Charles MD Hep C Ab Reactive Abnormal [facility] Comment on above: Result Comment: The hepatitis [...] Performed By: #### P HEP, HIVCMB #### [place] [address] [place], [place] [phone] Plastics Seasoner Operator: Antonino Nova MD #### BMPCMP, BMP, CBC #### [address] [place] [address] Plastics Seasoner Operator: Merlin Charles MD [facility] Hematocrit (Bld) [Volume fraction] 39.5 % 36.3 - 47.1 % [facility] Hemoglobin (Bld) [Mass/Vol] 12.6 g/dL 11.9 - 15.1 g/dL [facility] Interpretation and review of laboratory results Abnormal [facility] MCH (RBC) [Entitic mass] 32.6 pg 25.2 - 33.5 pg [facility] MCHC (RBC) [Mass/Vol] 31.9 g/dL 28.4 - 34.8 g/dL [facility] MCV (RBC) [Entitic vol] 102.3 fL 82.6 - 102.9 fL [facility] NRBC Automated 0.0 0.0 per 100 WBC [facility] Platelet distribution width (Bld) [Ratio] 14.9 % High 11.8 - 14.4 % [facility] Platelet mean volume (Bld) [Entitic vol] 9.7 fL 8.1 - 13.5 fL [facility] Platelets (Bld) [#/Vol] 175 10*3/uL [facility] RBC (Bld) [#/Vol] 3.86 10*6/uL Low 3.95 - 5.1 1 m/uL [facility] WBC (Bld) [#/Vol] 3.4 10*3/uL Low [facility] Comprehensive Metabolic Pane elvin 11-09-2021 Albumin [Mass/Vol] 4.7 g/dL 3.5 - 5.2 g/dL [facility] Albumin/Globulin [Mass ratio] 2.5 {ratio} [facility] ALP (Bld) [Catalytic activity/Vol] 76 U/L 35 - 104 U/L [facility] ALT [Catalytic activity/Vol] 50 U/L High 5 - 33 U/L [facility] Anion gap [Moles/Vol] 10 mmol/L 9 - 17 mmol/L [facility] AST [Catalytic activity/Vol] 40 U/L High <32 [facility] Bilirubin [Mass/Vol] 0.55 mg/dL 0.3 - 1 .2 mg/dL [facility] Calcium [Mass/Vol] 10.4 mg/dL 8.6 - 10. 4 mg/dL [facility] Chloride [Moles/Vol] 107 mmol/L 98 - 10 7 mmol/L [facility] CO2 [Moles/Vol] 25 mmol/L 20 - 31 mmol/L [facility] Creatinine [Mass/Vol] 0.72 mg/dL 0.50 - 0.90 mg/dL [facility] Free PSA/Total PSA [Mass fraction] 6.6 g/dL 6.4 - 8.3 g/dL [facility] GFR >60 >60 mL/min [facility] GFR Non- >60 >60 mL/min [facility] Glucose [Mass/Vol] 76 mg/dL 70 - 99 mg/dL [facility] Interpretation and review of laboratory results Abnormal [facility] Potassium [Moles/Vol] 3.9 mmol/L 3.7 - 5.3 mmol/L [facility] Sodium [Moles/Vol] 142 mmol/L 135 - 144 mmol/L [facility] Urea nitrogen (BldV) [Mass/Vol] 12 mg/dL 6 - 20 mg/dL [facility] Urea nitrogen/Creatinine (Bld) [Mass ratio] 17 [facility] HCG Qualitative, Serumon hCG Qual Negative NEGATIVE [facility] Comment on above: Specimens with hCG l evels near the threshold of the test (25 mIU/mL) may give a negative or indeterminate result. In such cases, another test should be performed with a new specimen in 48-72 hours. If early is suspected clinically in this setting, correlation with quantitative serum b-hCG level is suggested. [facility] has confirmed the use of plasma for this test. This has not been cleared or approved by the U.S. Food and Drug Administration. The FDA has determined that such clearance is not necessary. [facility] HIV Screenon 11-09-2021 HIV Ag/Ab Non-Reactive NONREACTIVE [facility] Comment on above: No laboratory eviden ce of HIV infection. If acute HIV infection is suspected, consider testing for HIV-1 RNA. [facility] Hepatitis Panel, Acuteon HAV IgM IA Qn (S) Non-Reactive NONREACTIVE [facility] Hep B Core Ab, IgM Non-Reactive NONREACTIVE [facility] Hepatitis B Surface Ag Non-Reactive NONREACTIVE [facility] Hepatitis C Ab Reactive Abnormal NONREACTIVE [facility] Comment on above: The [...] Interpretation and review of laboratory results Abnormal [facility] Laboratory - Chemistry and C hemistry - challengeon 11-09-2021 GFR/1.73 sq M.predicted MDRD (S/P/Bld) [Vol rate/Area] [facility] Comment on above: Average GFR for 20-2 9 years old: 116 mL/min/1.73sq m Chronic Kidney Disease: <60 mL/min/1.73sq m Kidney failure: <15 mL/min/1.73sq m eGFR calculated using average adult body mass. Additional eGFR calculator available at: http://www.Grata/multiple_crcl_2012.htm Stage 1: Some kidney damage normal GFR Stage 2: Mild kidney damage GFR 60-89 Stage 3: Moderate kidney damage GFR 30-59 Stage 4: Severe kidney damage GFR 15-29 Stage 5: Severe kidney damage GFR <15 ESRD - chronic treatment by dialysis or transplant Microscopic Urinalysison - [facility] Bacteria, UA 4+ Abnormal None [facility] Epithelial Cells UA 2 TO 5 [facility] Interpretation and review of laboratory results Abnormal [facility] Mucus, UA 1+ Abnormal None [facility] RBC, UA 0 TO 2 [facility] WBC, UA 20 TO 50 [facility] Urinalysis with Reflex to Cu ltureon 10-27-2021 Bilirubin Urine SMALL Abnormal NEGATIVE [facility] Color, UA Yellow Yellow [facility] Glucose, Ur Negative NEGATIVE [facility] Interpretation and review of laboratory results Abnormal [facility] Ketones Ql (U) Negative NEGATIVE [facility] Leukocyte esterase Test strip Ql (U) MODERATE Abnormal NEGATIVE [facility] Nitrite, Urine Negative NEGATIVE [facility] pH, UA 6.5 [facility] Protein, UA TRACE Abnormal NEGATIVE [facility] Specific [place], UA 1.025 High [facility] Turbidity UA SLIGHTLY CLOUDY Abnormal Clear [facility] Urine Hgb Negative NEGATIVE [facility] Urobilinogen, Urine Normal Normal [facility] Microscopic Urinalysison - [facility] Bacteria, UA 1+ Abnormal None [facility] Epithelial Cells UA 5 TO 10 [facility] Interpretation and review of laboratory results Abnormal [facility] RBC, UA 0 TO 2 [facility] WBC, UA 5 TO 10 [facility] Urinalysis with Reflex to Cu ltureon 10-07-2021 Bilirubin Urine Negative NEGATIVE [facility] Color, UA Yellow Yellow [facility] Glucose, Ur Negative NEGATIVE [facility] Interpretation and review of laboratory results Abnormal [facility] Ketones Ql (U) Negative NEGATIVE [facility] Leukocyte esterase Test strip Ql (U) MODERATE Abnormal NEGATIVE [facility] Nitrite, Urine Negative NEGATIVE [facility] pH, UA 5.5 [facility] Protein, UA Negative NEGATIVE [facility] Specific [place], UA 1.025 High [facility] Turbidity UA Clear Clear [facility] Urine Hgb Negative NEGATIVE [facility] Urobilinogen, Urine Normal Normal [facility] SEROLOGYOrdered By: Suly Raamn on 07-24-2021 HCG.beta subunit (U) [Moles/Vol] Negative Normal [facility] [employer] Tobacco Screening.on 022 Adult depression screening assessment Yes [facility] [employer] [place] 250 DO Work Phone: Tobacco use status CPHS a) Yes [facility] [place] 250 DO Work Phone: Tobacco Screening. Yes [facility] 250 DO Work Phone: Tobacco Screening. 3-Nearly every day [facility] [employer] 250 DO Work Phone: Tobacco Screening. 2-More than half the days [facility] 250 DO Work Phone: Tobacco Screening. 0-Not at all [facility] 250 DO Work Phone: Tobacco Screening. Very Difficult [facility] [place] 250 DO Work Phone: XR [...] DURON Date: 2021-07-04 02:09 Normal [facility] Vital Signs Date Time Vital Sign Value Performing Clinician Facility 07-06-2023 15:10-0500 Body temperature 98.42 [degF] Adolfo Hernandez [facility] 07-06-2023 15:10-0500 Diastolic blood pressure 69 mm[Hg] Adolfo Hernandez [facility] 07-06-2023 15:10-0500 Heart rate 102 /min Adolfo Hernandez [facility] 07-06-2023 15:10-0500 Respiratory rate 16 /min Adolfo Hernandez [facility] 07-06-2023 15:10-0500 SaO2% (BldA) [Mass fraction] 100 % Adolfo Hernandez [facility] 07-06-2023 15:10-0500 Systolic blood pressure 100 mm[Hg] Adolfo Hernandez [facility] 07-24-2021 17:25-0400 Body temperature 96.98 [degF] Zev Hamlin [facility] 07-24-2021 17:25-0400 Heart rate 66 /min Zev Boubacar [facility] 07-24-2021 17:25-0400 Respiratory rate 110 /min Zev Hamlin [facility] 07-24-2021 17:25-0400 SaO2% (BldA) [Mass fraction] 100 % Zev Hamlin [facility] 07-24-2021 17:25-0400 Systolic blood pressure 68 mm[Hg] Zev Hamlin [facility] 07-24-2021 17:20-0400 Body temperature 97.7 [degF] Zev Hamlin [facility] 07-24-2021 17:20-0400 Diastolic blood pressure 63 mm[Hg] Zev Hamlin [facility] 07-24-2021 17:20-0400 Heart rate 65 /min Zev Hamlin [facility] 07-24-2021 17:20-0400 Respiratory rate 11 /min Zev Hamlin [facility] 07-24-2021 17:20-0400 SaO2% (BldA) [Mass fraction] 100 % Zev Hamlin [facility] 07-24-2021 17:20-0400 Systolic blood pressure 106 mm[Hg] Zev Hamlin [facility] 07-24-2021 17:05-0400 Diastolic blood pressure 70 mm[Hg] Zev Hamlin [facility] 07-24-2021 17:05-0400 Heart rate 78 /min Zev Hamlin [facility] 07-24-2021 17:05-0400 Respiratory rate 11 /min Zev Hamlin [facility] 07-24-2021 17:05-0400 SaO2% (BldA) [Mass fraction] 100 % Zev Hamlin [facility] 07-24-2021 17:05-0400 Systolic blood pressure 109 mm[Hg] Zev Hamlin [facility] 07-24-2021 17:00-0400 Diastolic blood pressure 54 mm[Hg] Zev Hamlin [facility] 07-24-2021 16:53-0400 Body temperature 97.52 [degF] Zev Hamlin [facility] 07-24-2021 11:18-0400 Blood Pressure Location Zev Hamlin [facility] 07-24-2021 11:18-0400 BP/Pulse Patient Position Zev Hamlin [facility] 07-24-2021 11:18-0400 Mean blood pressure 78 mm[Hg] Zev Hamlin [facility] 07-24-2021 11:17-0400 Blood Pressure Location Zev Hamlin [facility] 07-24-2021 11:17-0400 Body temperature 98.24 [degF] Zev Hamlin [facility] 07-24-2021 11:17-0400 BP/Pulse Patient Position Zev Hamlin [facility] 07-24-2021 11:17-0400 Mean blood pressure 84 mm[Hg] Zev Hamlin [facility] 07-24-2021 11:17-0400 Respiratory rate 16 /min Zev Hamlin [facility] 07-24-2021 11:17-0400 Heart rate 72 /min Zev Hamlin [facility] 07-09-2021 09:07-0500 Diastolic blood pressure 62 mm[Hg] No PCP None [facility] [employer] 250 DO Work Phone: 07-09-2021 09:07-0500 Systolic blood pressure 102 mm[Hg] No PCP None [facility] 250 DO Work Phone: 07-09-2021 09:01-0500 Body height 160.02 cm No PCP None [facility] [employer] 250 DO Work Phone: 07-09-2021 09:01-0500 Body mass index (BMI) [Ratio] 27.1 kg/m2 No PCP None [facility] 250 DO Work Phone: 07-09-2021 09:01-0500 Body surface area Derived from formula 1.73 m2 No PCP None [facility] [employer] 250 DO Work Phone: 07-09-2021 09:01-0500 Body weight 69.4 kg No PCP None [facility] [employer] 250 DO Work Phone: 07-09-2021 09:01-0500 Diastolic blood pressure 62 mm[Hg] No PCP None [facility] 250 DO Work Phone: 07-09-2021 09:01-0500 Heart rate 59 /min No PCP None [facility] 250 DO Work Phone: 07-09-2021 09:01-0500 Systolic blood pressure 104 mm[Hg] No PCP None [facility] 250 DO Work Phone: 07-09-2021 09:01-0500 18 1 No PCP None [facility] 250 DO Work Phone: Comment on above: PHQ-9 TS Encounters Encounter Date Encounter Type Care Provider Facility Start: 10-24-2023 ambulatory [facility] Facility:[facility] Start: 10-23-2023 End: 10-23-2023 Emergency department patient visit NO PCP NO PCP [facility] Start: 09-08-2023 End: 09-08-2023 ambulatory NO PCP NO PCP [facility] Start: 09-08-2023 Encounter for genera l adult medical examination without abnormal findings NO NO PCP [facility] Start: 08-19-2023 End: 08-19-2023 Emergency department patient visit NO PCP NO PCP [facility] Start: 07-06-2023 End: 07-06-2023 Emergency department patient visit Adolfo Hernandez [facility] Start: 06-17-2023 End: 06-17-2023 ambulatory PB GARSIA [facility] Start: 02-16-2023 ambulatory [facility] Start: 01-19-2023 ambulatory [facility] Start: 01-06-2023 ambulatory [facility] Start: 12-10-2022 End: 12-11-2022 [facility] Start: 11-04-[address] [facility] Start: 09-22-2022 End: 09-23-2022 ambulatory [facility] [...] to same day surgery center Zev Hamlin [facility] Start: 07-09-2021 Office consultation new/estab patient 60 min [facility] Work [facility]: Start: 07-04-2021 End: 07-04-[address] RADHA MOE Facility: Start: 06-29-2021 End: 10-15-2021 Recurring Zev Hamlin [facility] Patient encounter status No PCP None [facility] 250 DO Work Phone: Procedures Date Procedure Procedure Detail Performing Clinician Start: 09-13-2022 Antibody hiv-1&hiv-2 single result Dez Jackie CHEF SAUCIER - NON LICENSED OPERATOR Work Phone: Start: 09-13-2022 Comprehensive metabo lic panel Dez Jackie CHEF SAUCIER - NON LICENSED OPERATOR Work Phone: Start: 11-09-2021 Antibody hiv-1&hiv-2 single result Dez Jackie CHEF SAUCIER - NON LICENSED OPERATOR Work Phone: Start: 11-09-2021 Comprehensive metabo lic panel Dez Jackie CHEF SAUCIER - NON LICENSED OPERATOR Work Phone: Start: 10-27-2021 Urinalysis microscop ic only Dez Jackie CHEF [employer]UCIER - NON LICENSED OPERATOR Work Phone: Start: 10-27-2021 Urnls dip stick/tabl et rgnt auto w/o microscopy Dez Jackie CHEF [employer]UCIER - NON LICENSED OPERATOR Work Phone: Start: 10-06-2021 Urinalysis microscop ic only Dez Jackie CHEF SAUCIER - NON LICENSED OPERATOR Work Phone: Start: 10-06-2021 Urnls dip stick/tabl et rgnt auto w/o microscopy Dez Jackie CHEF SAUCIER - NON LICENSED OPERATOR Work Phone: section No PCP None section [...] Influenza vaccination Flu vacc ine (Season Ended) [facility] Start: 01-06-2022 Screening for malign ant neoplasm of cervix [facility] Start: 12-31-2021 Influenza vaccination [facility] Start: 11-25-2021 FUV, Provider: Ruddy Garcia, Status: Pen, Time: 3:00 PM [facility]UV, Provider: Ruddy Garcia, Status: Pen, Time: 3:00 PM [facility] [employer] DO Work Phone: Start: 07-15-2021 ECHO, Provider: DAJA CASTROI [employer] 01,[id number], Status: Pen, Time: 11:30 AM ECHO, Provider: PRATIMA CASTROI [employer] 01,[id number], Status: Pen, Time: 11:30 AM [facility] [employer] 250 DO Work Phone: Start: 07-15-2021 STRESS NUC, Provider : PRATIMA CASTROI NUCLEAR 01,[id number], Status: Pen, Time: 11:30 AM STRESS NUC, Provider: PRATIMA HHVI NUCLEAR 01,[id number], Status: Pen, Time: 11:30 AM [facility] [employer] 250 DO Work Phone: Start: 01-06-2013 Screening for malign ant neoplasm of cervix Pap smear [facility] [employer] Start: 01-06-2011 DTaP/Tdap/Td vaccine (1 - Tdap) DTaP/Tdap/Td vaccine (1 - Tdap) [facility] [employer] Start: 01-06-2010 Hepatitis C screening Hepatitis C sc reen [facility] Start: 2004 Depression Screen Depression Screen [facility] Start: 01-06-1998 Pneumococcal 0-64 ye ars Vaccine (1 - PCV) Pneumococcal 0-64 years Vaccine (1 - PCV) [facility] Start: 01-06-1997 COVID-19 Vaccine (1) COVID-19 Vaccin e (1) [facility] Start: 01-06-1993 Varicella vaccine (1 of 2 - 2-dose childhood series) Varicella vaccine (1 of 2 - 2-dose childhood series) [facility] Start: 1992 COVID-19 Vaccine (#1) COVID-19 Vacci ne (#1) [facility] End: 10-27-2021 Culture, Urine [facility] Work Phone: Comment on above: Once for 1 Occurrenc es starting 10/27/2021 until 10/27/2021 End: 09-13-2022 Hepatitis C RNA, quantitative, PCR [facility] Work Phone: Comment on above: Once for 1 Occurrenc es starting 09/13/2022 until 09/13/2022 Immunizations Immunization Date Immunization Notes Care Provider Seun marc 05-14-2012 influenza, seasonal, injectable Zev Boubacar [facility] Comment on above: Early/Late Reason: P atient Not Available/Off Unit 05-14-2012 measles, mumps and rubella virus vaccine Zev Hamlin [facility] Comment on above: Early/Late Reason: P atient Not Available/Off Unit Payers Date Payer Category Payer Unknown [id number] 2019 Unknown [id number] 1992 Unknown [id number] 1992 Unknown [id number] 2.16.840.1.193913.3.579.2.173 1992 Unknown [id number] 2.16.840.1.576292.3.579.2.173 1992 Unknown [id number] 2.16.840.1.832592.3.579.2.173 1992 Unknown [id number] 2.16.840.1.103720.3.579.2.173 1992 Unknown [id number] 2.16.840.1.346792.3.579.2.173 1992 Unknown [id number] 2.16.840.1.981014.3.579.2.983 1992 Unknown [id number] 2.16.840.1.342347.3.579.2.983 1992 Unknown [id number] 2.16.840.1.675127.3.579.2.983 1992 Unknown [id number] 2.16.840.1.819177.3.579.2.983 1992 Unknown [id number] 2.16.840.1.261026.3.579.2.1286 1992 Unknown [id number] 2.16.840.1.433141.3.579.2.6 1992 Unknown [id number] 2.16.840.1.384881.3.579.2.1286 1992 Unknown [id number] 2.16.840.1.126896.3.579.2.1286 1992 Unknown [id number] 2.16.840.1.502851.3.579.2.727 1992 Unknown [id number] 2.16.840.1.861775.3.579.2.727 1959 Unknown [id number] Unknown [facility] Social History Date Type Detail Facility Start: 08-14-2013 End: 10-13-2017 Consumes alcohol occasionally Consumes alcohol occasionally [place] [address] DO Work Phone: Comment on above: <1PPD; Start: 06-25-2021 Tobacco smoking status Light t obacco smoker (finding) [facility] Sex Assigned At Female [facility] Start: 08-14-2013 End: 10-13-2017 Tobacco smoking status NHIS Smokes tobacco daily [facility] [employer] Phone: History of tobacco use Cigarette Smoker [facility] [employer] Phone: Start: 08-14-2013 End: 10-13-2017 Tobacco use and exposure Smokeless tobacco non-user [employer] Phone: Start: 09-11-2018 Alcohol intake 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) [employer] Phone: Start: 1990 Sex Assigned At Not on file B ON [employer] Phone: Functional Status Date Assessment Result Facility 07-06-2023 Functional Status N/A [facility] 07-09-2021 PHQ-9 [id number] Moder ately Severe (15-19) [facility] 250 DO Work Phone: Clinical Notes 07-24-2021 [...] Locations R1: This test was performed at: [facility], [address] [place] [address], [id number] , , [facility] Comment on above: Performed By: #### 1 [id number] #### [facility] [address] [place] [address] 07-06-2023 Hospital Discharge instructions Patient Education 07/06/2023 15:38:59 Viral Respiratory Infection, Hcov-Vf-Kysc Viral Respiratory Infection A viral respiratory infection [...] at home: Managing pain and congestion Take ozgu-quz-emnqbsm and prescription medicines only as told by [...] cannot use soap and water, 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 ?Cover your mouth when you cough. Cover [...] provider. Document Revised: 07/23/2021 Document Reviewed: 07/23/2021 [employer] Patient Education 2022 [employer] 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 [facility] Chief complaint Narrative - Reported DOUGLAS MYLES is being seen for a consultation for. POC abnormal ECG; Dr. Boubacar Franco [facility] [employer] 250 DO Work Phone: Chief complaint Narrative - Reported DOUGLAS MYLES is being seen for a consultation for. POC abnormal ECG; Dr. Hamlin [facility] Work Phone: Evaluation + Plan note No data available for this section [facility] History of Present illness Narrative Patient is seen for preoperative risk assessment. She apparently presented for tubal ligation and procedure was canceled because of abnormal EKG.She has been in and out of the emergency room multiple times. Recently she was in [place] [facility] and they also noted abnormal EKG [...] correspond with the surgeon in this regard. [facility] [employer] 250 DO Work Phone: History of Present illness Narrative Patient is seen for preoperative risk assessment. She apparently presented for tubal ligation and procedure was canceled because of abnormal EKG.She has been in and out of the emergency room multiple times. Recently she was in [place] at the hospital and they also noted [...] correspond with the surgeon in this regard. [facility] Work Phone: Hospital Discharge instructions No data available for this section [facility] Progress note No data available for this section [facility] Summary Purpose Family History No Family History Records Found Advance Directives No Advanced Directives Records FoundDocuments on File Type Date Recorded Patient Rehab/Pre Vocational Counselor Expl anation ACP-Advance Directive ACP-Power of Welder Fitter Arc Latest Code Status on File Code Status [...] CREATED AUTHOR AUTHOR'S ORGANIZ ATION 12/12/2022 [facility] DATE CREATED AUTHOR AUTHOR'S ORGANIZ ATION 02/17/2023 [facility] DATE CREATED AUTHOR AUTHOR'S ORGANIZ ATION 10/23/2023 [facility] DATE CREATED AUTHOR AUTHOR'S ORGANIZ ATION 10/24/2023 [facility] FOR RECORDS PERTAINING TO PATIENTS [...] BE BASED ON THE PRIMARY CLINICAL RECORDS. [facility] [employer] provides no warranty or guarantee of the accuracy or completeness of information in this document.
[2023-10-25] MEDS: LACTATED RINGER'S SOLUTION 1,000 ML 100 ML IV (17:48)
[2023-10-25 17:54] VITALS: BP 97/52; PULSE 64; TEMP 36.7; O2SAT 92; BMI 26.1
--- NOTE | 2023-10-25 18:28 | PM.CN ---
Consult Note: [facility] Data of Consult Consult date: 10/25/23 Requesting Physician: Bahman Mejia MD Primary Care Provider: Non-Staff Physician, Consult Narrative Reason for consult: pancytopenia (liver disease vs bone marrow disorder) Narrative: 33 y/o female who presented to ER with nausea vomiting and generally not feeling well. She states she was recently in the hospital for low blood counts and received a blood transfusion. She did report recently some GI bleeding. She has a history of liver failure and anemia. She has a history of IV drug abuse but states that she has not used in a while. She denies severe abdominal pain. She does report a mild cough and reports fevers as well. Her blood pressure is slightly low upon arrival. She denies syncope but states she was feeling lightheaded and generalized weakness. At the bedside, she notes prior hx of hepatitis C virus. She notes that she was subsequently told in [place] that her virus had cleared. She notes that she was admitted for liver complications in [place] 10+ yrs ago. She admits that she has been sharing needles with hep C positive individuals recently. She worries that she could be positive again. She notes that she has not been following with pcp regularly. She has appt to see Marcy Stringer NP tomorrow. I reviewed her labs which show wbc 1.8, Hgb 8.6, mcv 116.9, plt 88K. Her LDH is high at 1682, SPEP negative for monoclonal proteins. B12 level very low at 138. Folic acid normal at 21.20. She does have elevated LFTs. As she admits to sharing needles, and prior hep C exposure, I would recommend the following: hep C Ab and PCR with viral load; HIV viral load. We will order peripheral smear, and also start B12 injections. We will consider outpt bone marrow biopsy for persistent pancytopenia with macrocytosis. ECOG PS 2-3. cc:: CC: Bahman Mejia MD Review of Systems ROS Narrative A comprehensive 10 point review of systems was conducted and is negative other than that reported in the history of present illness. [facility] Medical History (Updated 10/25/23 @ 19:01 by Argentina Atkins MD) Oral thrush ?B37.0 - Candidal stomatitis (ICD-10) Single delivery by section ?O82 - Encounter for delivery without indication (ICD-10) Liver failure ?K72.90 - Hepatic failure, unspecified without coma (ICD-10) Hep C w/o coma, chronic ?B18.2 - Chronic viral hepatitis C (ICD-10) Neurocardiogenic syncope ?R55 - Syncope and collapse (ICD-10) Family History (Updated 10/23/23 @ 19:39 by Makayla Campos, RN) Mother Family history of COPD (chronic obstructive pulmonary disease) Other Family history of cancer Family history of hypertension Social History (Updated 10/23/23 @ 19:41 by Makayal Campos, RN) Within the past year, how often did you have a drink containing alcohol: never Within the past year, how many standard drinks containing alcohol did you have on a typical day: 1 or 2 Within the past year, how often did you have six or more drinks on one occasion: never Total score: 0 Score interpretation: A score less than 3 is consistent with normal alcohol consumption. 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; clean for four months Previous occupational history: [employer] Highest level of school completed/degree received: high school graduate Are you now , , , , never or living with a partner: living with partner In a typical week, how many times do you talk on the telephone with family, friends, or neighbors: 3 or more times per week How often do you get together with friends or relatives: 3 or more times per week How often do you attend orthodoxy or amish services: never Little interest or pleasure in doing things: several days Feeling down, depressed, or hopeless: several days Feel stressed/tense/nervous/anxious/difficulty sleeping: to some extent Do you think of yourself as: straight/heterosexual Gender Identity: female Meds Home Medications and Allergies Home Medications ?Medication ?Instructions ?Recorded ?Confirmed ?Type trazodone 100 mg tablet 100 mg PO BEDTIME 11/09/22 10/23/23 History pantoprazole 40 mg tablet,delayed 40 mg PO DAILY #30 tabs 10/24/23 Rx release (Protonix) buprenorphine 8 mg-naloxone 2 mg 1.5 film sublingual DAILY 10/25/23 History sublingual film Allergies Allergy/AdvReac Type Severity Reaction Status Date / Time No Known Drug Allergies Allergy Verified 10/11/23 17:22 Exam Narrative Exam Narrative: Vital Signs: [Per nurse's notes.] General: [Alert]Mild hypotension Skin: [Warm, dry, no rash.]Jaundice, Pallor Head: [Normocephalic, atraumatic.] Neck: [Supple, trachea midline.] Eye: [Pupils are equal, round and reactive to light, extraocular movements are intact, normal conjunctiva.] Ears, nose, mouth and throat: oral mucosa moist. Cardiovascular: [Regular rate and rhythm, no murmur.] Respiratory: [Lungs are clear to auscultation, respirations are non-labored, breath sounds are equal.] Chest wall: [No tenderness, no deformity.] Gastrointestinal: [Soft, nontender, non distended, normal bowel sounds.] MSK: 5 out of 5 muscle strength x 4 extremities no calf pain or edema Lymphatics: [No lymphadenopathy.] Psychiatric: [Cooperative, appropriate mood & affect.] Neurological: [Alert and oriented to person, place, time, and situation, no focal neurological deficit observed.] Constitutional Vital Signs, click to edit/add: Last Vital Signs Temp 98.0 F 10/25/23 17:54 Pulse 64 10/25/23 17:54 Resp 16 10/25/23 17:54 BP 97/52 10/25/23 17:54 Pulse Ox 92 L 10/25/23 17:54 O2 Del Method Room Air 10/25/23 17:54 Results Labs Labs: Short CBC 10/25/23 Range/Units 15:08 WBC 1.8 L (4.0-11.0) 10^3/uL Hgb 8.6 L (12.0-16.0) g/dL Hct 24.2 L (36.0-48.0) % Plt Count 88 L (150-450) 10^3/uL BMP 10/25/23 15:08 Sodium 143 Potassium 4.4 Chloride 107 Carbon Dioxide 27.3 BUN 17.0 Creatinine 0.69 Glucose 102 Calcium 9.9 Liver Function 10/25/23 Range/Units 15:08 Total Bilirubin 4.3 H (0.2-1.0) mg/dL AST 128 H (15-37) U/L ALT 84 H (14-59) U/L Alkaline Phosphatase 82 (46-116) U/L Albumin 3.7 (3.4-5.0) g/dL Urine 10/25/23 Range/Units 15:09 Urine Color Dk. orange (YELLOW) Urine Clarity Clear (CLEAR) Urine pH Color interference A (5.0-9.0) Ur Specific [place] 1.020 (1.005-1.025) Urine Protein Color interference A (NEG/TRACE) mg/dL Urine Glucose (UA) Color interference A (NEGATIVE) mg/dL Assessment and Plan Assessment and Plan (1) Intractable vomiting with nausea: (2) Urinary tract infection with hematuria: Qualifiers: Urinary tract infection type: site unspecified Qualified Code(s): N39.0 - Urinary tract infection, site not specified; R31.9 - Hematuria, unspecified (3) Acute liver failure: Qualifiers: Hepatic coma status: without hepatic coma Qualified Code(s): K72.00 - Acute and subacute hepatic failure without coma (4) Pancytopenia: Plan Impression: # Pancytopenia # Severe macrocytosis # B12 deficiency # Needle sharing / IV drug use # Hepatitis C exposure # Elevated LFTs # Nausea vomiting PLAN: - liver US reviewed. no acute process - I would recommend hep C Ab and PCR with viral load; - please order HIV viral load - would recommend peripheral smear, and also start B12 injections (daily while admitted then weekly from our office or PCP office). Following weekly B12 x 4 treatments, she can transition to q2 weeks - please send intrinsic factor Ab level to evaluate for pernicious anemia - we will consider outpt bone marrow biopsy for persistent pancytopenia with macrocytosis. Thank you for the consult. Will continue to follow. Argentina Atkins MD Hematology Oncology
[2023-10-25 20:33] VITALS: BP 93/58; PULSE 61; TEMP 36.6; O2SAT 98
[2023-10-25] MEDS: CEFTRIAXONE 1,000 MG in 0.9 % SODIUM CHLORIDE 50 ML 100 MG IV (20:49)
[2023-10-25] MEDS: PANTOPRAZOLE SODIUM 40 MG VIAL IV (20:49)
[2023-10-25] MEDS: TRAZODONE HCL 50 MG TABLET PO (22:10)
[2023-10-26] VITALS (11 sets, daily range): BP systolic 81–92; BP diastolic 42–57; PULSE 54–69; TEMP 36.6–37.3; O2SAT 85–97
[2023-10-26] MEDS: NALOXONE HCL 0.4 MG/ML VIAL 0.400000000000000022 MG IV ×2 (02:18→03:14)
--- NOTE | 2023-10-26 02:19 | ECG_ITS ---
[facility] Test Date: 2023-10-26 Pat Name: SANGEETA MYLES Department: Room: 2031 Gender: Female Personnel Assistant: : 1990 Requested By: MICHAEL HADDAD Order Number: [id number] Reading MD: MICHAEL HADDAD Measurements Intervals [place] Rate: 58 P: 50 MA: 177 QRS: 52 QRSD: 89 T: 40 QT: 475 QTc: 469 Interpretive Statements SINUS BRADYCARDIA LOW QRS VOLTAGE IN EXTREMITY LEADS [QRS DEFLECTION < 0.5 mV IN LIMB LEADS] PROLONGED QT INTERVAL Compared to ECG 11/09/2022 22:10:19 Low QRS voltage now present Prolonged QT interval now present Sinus rhythm no longer present Electronically Signed On 10-27-2023 5:33:21 EDT by MICHAEL HADDAD
[2023-10-26 02:40] LABS: ABG PCO2 42.1 mmHg (35.0-45.0); Allen Test POSITIVE (POSITIVE); HCO3 ABG 27.4 mmol/L (22.0-26.0); Oxygen Saturation ABG 97.4 %; PO2 ABG 79.6 mmHg (80.0-100.0); pH ABG 7.423 (7.350-7.450)
[2023-10-26 02:41] LABS: Liters per Minute 3; O2 Mode NASAL CANNULA; Puncture Site R RADIAL
--- NOTE | 2023-10-26 02:44 | CT_ITS ---
The [address] [address] Patient Name: SANGEETA MYLES MRN: [id number] date: 1990 Sex: F Assigned Patient Location: [place] Current Patient Location: [place] Accession/Order Number: [id number] Exam Date: 10/26/2023 03:20 Report Date: 10/26/2023 05:54 At the request of: ADONAY SHINE Procedure: CT head/brain wo con EXAM: CT head/brain wo con HISTORY: Acute mental status change COMPARISON: CT head, 05/22/2023. TECHNIQUE: Nonenhanced CT imaging the head was performed with sagittal and coronal reconstructions. Dose reduction techniques were achieved by using automated exposure control and/or adjustment of mA and/or kV according to patient size and/or use of iterative reconstruction technique. FINDINGS: . No intracranial hemorrhage, edema, mass effect or midline shift is seen. No acute ischemia is seen in a major vascular distribution. No acute hyperdense thromboembolism is identified in the intracranial arterial circulation. The brain parenchyma, ventricles and extra-axial CSF spaces appear within normal limits. There is opacification of the right maxillary sinus with mild bilateral ethmoid and sphenoid mucosal thickening. The mastoid air cells are clear. CT/CT head/brain wo con IMPRESSION: 1. No acute intracranial abnormality. 2. Paranasal sinus disease as above, most prominent in the right maxillary sinus. Electronically authenticated by: SHUBHAM CONLEY Date: 10/26/2023 05:54
[2023-10-26 03:04] LABS: Hemoglobin 7.6 g/dL (12.0-16.0); Immature Granulocytes Abs Auto 0.03 10^3/uL (0.00-0.03); Immature Granulocytes Pct Auto 1.5 % (0.0-0.5); Mean Corpuscular HGB Conc 32.6 g/dL (29.9-35.2); Mean Corpuscular Hemoglobin 39.8 pg (26.7-34.0); Mean Platelet Volume 10.1 fL (9.5-13.5); Monocytes Absolute Auto 0.1 10^3/uL (0.3-0.8); Neutrophils Absolute Auto 0.9 10^3/uL (1.4-6.5); Neutrophils Percent Auto 43.5 % (43.0-75.0); Platelet Count 73 10^3/uL (150-450); Red Blood Count 1.91 10^6/uL (4.20-5.40)
[2023-10-26] MEDS: NICOTINE 21 MG PATCH.TD24 TD (03:05)
[2023-10-26] MEDS: 0.9 % SODIUM CHLORIDE 1,000 ML 1000 ML IV (03:06)
[2023-10-26 03:19] LABS: Alanine Aminotransferase 64 U/L (14-59); Albumin Globulin Ratio 1.3; Albumin Level 3.1 g/dL (3.4-5.0); Alkaline Phosphatase 69 U/L (46-116); Anion Gap 9.5; Aspartate Amino Transferase 88 U/L (15-37); BUN Creatinine Ratio 26.1; Bilirubin Total 2.2 mg/dL (0.2-1.0); Calcium 9.1 mg/dL (8.5-10.1); Carbon Dioxide 29.5 mmol/L (21.0-32.0); Chloride 109 mmol/L (98-107); Estimated GFR (African America >60 (>=60); Estimated GFR (Non-African Ame >60 (>=60); Globulin 2.4 g/dL; Glucose 87 mg/dL (74-106); Sodium 144 mmol/L (136-145); Total Protein 5.5 g/dL (6.4-8.2)
[2023-10-26 03:23] LABS: Prothrombin Time 12.5 sec (9.0-11.6)
[2023-10-26 03:25] LABS: Troponin I High Sensitivity 22.1 pg/mL (4.0-51.3)
[2023-10-26 03:26] LABS: Hematocrit 23.3 % (36.0-48.0)
[2023-10-26 03:27] LABS: Ammonia 69 umol/L (11-32)
[2023-10-26 03:29] LABS: Partial Thromboplastin Time 31.6 sec (22.3-36.2)
--- NOTE | 2023-10-26 04:13 | PC.NURSE ---
At 0205, after pt had just been asking for meds to help her sleep, the RETAIL SALES CONSULTANT, 2 RNs and Artifacts Conservator found pt heavily sleeping, shallow respirations of 10-12, BP of 82/47, O2 of 86% on RA, placed on 2L NC. Tele [facility] notified, given pts hx of drug abuse and sudden change of mental status, she ordered .4 of narcan x1. This was given with little results. Pt then dropped to 86% on the 2L and placed on 3L at 91%. Pupils were sluggish and pt was blank staring not blinking much. Only responding to pain. Hosp ordered a second dose of narcan and for the ER Dr to lay eyes on pt. Labs, ABGs, EKG were all done. Dr. Pineda came up to see the pt. The pt was much more alert and oriented and talking normally. Once she was awake, she asked for more trazadone. Pt is now on room air at 97% and back to baseline.
[2023-10-26] MEDS: LACTATED RINGER'S SOLUTION 1,000 ML 100 ML IV (04:44)
--- NOTE | 2023-10-26 05:35 | PM.EN ---
Event Note Event Note: 0111 - Called re: patient having withdrawal symptoms, agitated, impulsive, nauseated. Orders given to resume buprenorphine, give phenergan and benadryl IV x1. 0208 - Updated that patient had change in level of consciousness. Per nursing the patient went from awake, alert, oriented, agitated to difficult to arouse, O2 sats down to 85-86%, and shallow respirations, rate 10-12 per minute.. Patient placed on 2L NC. Nursing reports none of the above med orders given. UA collected and order placed for repeat UDS. Additional orders placed: Telemetry, EKG, Narcan 0.4 IV x2, ABG, Ammonia, troponin, CBC, CMP, neuro checks, CT head/brain w/o, NS 1000 ml IV bolus for bp 82/47. Discussed case with Dr. Pineda, ED MD. She kindly agreed to evaluate the patient at bedside. F/up discussion with Dr. Pineda indicated patient had responded to Narcan and was essentially back to baseline. BP, sats better, and overall improved hemodynamically. Patient had reported she has not taken Suboxone for 5-[address] Pineda's assistance. Labs still pending at this time. Will continue to follow up and address abnormals as needed.
--- OUTSIDE RECORDS SUMMARY | 2023-10-26 06:04 | XMS_ITS | CCD ---
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 Role Phone None, No PCP Unavailable [...] Referring Unavailable PB GARSIA Referring Unavailable SERVICES, [facility] Primary Care Unava ilable NO PCP, NO PCP Primary Care Unavailable Adolfo Hernandez Attending Unavailable Medications Current Medications Medication Drug Class(es) Dates Sig (Normalized) Sig (Original) acetaminophen 325 mg / oxyCODONE hydrochloride 5 mg oral tablet (1 source) Opioid Agonist Start: 07-24-2021 End: 07-26-2021 Percocet 325 mg-5 mg Tab 1 tab(s), Oral, q6hr for pain for 2 day(s), 7 tab(s), Refill(s) 0, [facility]/pharmacy #[id number], 161, cm, 06/25/21 13:03:00 [...] by mouth 2 times daily 0 Active Ctzgcyuj-Xoj-Wt-FA ( VITAMINS PO) (5 sources) Acltuocj-Yij-Wm-FA ( VITAMINS PO) Take by mouth 0 [...] (GLYCO-HGB)on 2023 Glucose [Mass/Vol] 117 mg/dL Normal [facility] Comment on above: Performed By: #### A #### [facility] ([id number]) [address] [place] [address], [address] [place] [address] #### [id number] #### [facility] ([id number]) [address] [place] [address], [place] [address] HbA1c (Bld) [Mass fraction] 5.7 % High 4.4-5.6 [facility] Comment on above: Result Comment: NOTE ADA Guidelines Result HgbA1c Normal : less than 5.7 % Prediabetes : 5.7 % to 6.4 % Diabetes : > 6.4 % Use with caution in patients with abnormal hemoglobin variants as the half-life of red blood cells and in vivo glycation rates are affected. Performed By: #### A HP #### [facility] ([id number]) [address] [place] [address], [address] [place] [address] #### [id number] #### [facility] ([id number]) [address] [place] [address] 77132 Lipid 1996 panelon 4 Cholesterol [Mass/Vol] 99 mg/dL Low 150-200 Pr [facility] Comment on above: Performed By: #### A HP #### [facility] ([id number]) [address] [place] [address], [address] [place] [address] #### 90479-9 #### [facility] ([id number]) [address] [place] [address] 75462 Cholesterol in HDL [Mass/Vol] 29 mg/dL Low >39 [facility] Comment on above: Result Comment: HDL <40 mg/dL - High Risk HDL > or = 40mg/dL- Desirable HDL >60 mg/dL - Negative Risk Performed By: #### A HP #### [facility] ([id number]) [address] [place] [address], [address] [place] [address] #### 53027-0 #### [facility] ([id number]) [address] [place] [address] 65729 Cholesterol in LDL [Mass/Vol] 44 mg/dL Normal <130 [facility] Comment on above: Result Comment: LDL <100 mg/dL - Desirable LDL >160 mg/dL - High Risk Performed By: #### A HP #### [facility] ([id number]) [address] [facility], [address] [place] [address] #### 60002-5 #### [facility] ([id number]) [address] [place] [address] 52216 Cholesterol in VLDL [Mass/Vol] 26 mg/dL Normal 0-30 [facility] Comment on above: Performed By: #### A HP #### [facility] ([id number]) [address] [facility], [address] [place] [address] #### 13400-8 #### [facility] ([id number]) [address] [place] [address] 57426 CHOLESTEROL:HDL 3.4 Normal 1.0-5.0 [facility] Comment on above: Performed By: #### A HP #### [facility] ([id number]) [address] [facility], [address] [place] [address] #### 59237-2 #### [facility] ([id number]) [address] [place] [address] 79504 Triglyceride [Mass/Vol] 131 mg/dL Normal 27-150 [facility] Comment on above: Performed By: #### A HP #### [facility] ([id number]) [address] [facility], [address] [place] [address] #### 91302-9 #### [facility] ([id number]) [address] [place] [address] 08164 Reference Lab Test IDon 05-0 VIT D 1 25 DIHYDROXY See Below Normal [facility] Comment on above: Result Comment: NOTE TEST RESULT FLAG UNIT REF.RANGE ------- Vit D,1,25 Dihydroxy 59.9 pg/mL 19.9-79.3 Test Performed By: [facility] [address] [place] [address] Private Eye: Krishna Mehta III #[id number] Performed By: #### A HP #### [facility] ([id number]) [address] [place] [address] [address] [place] [address] #### 14971-2 #### [facility] ([id number]) [address] [place] [address] 64077 TSH WITH REFLEXon 09-08-2023 TSH 1.36 uIU/mL Normal 0.49-4.67 [facility] Comment on above: Performed By: #### A HP #### [facility] ([id number]) [address] [place] [address], [address] [place] [address] #### 96442-0 #### [facility] ([id number]) [address] [place] [address] 42770 CBC AND AUTO DIFFon 08-19-19 24 Anisocytosis Ql (Bld) 2+ Abnormal NONE [facility] Comment on above: Performed By: #### C BRUCE, 3040-3, CBCA, #### [facility] ([id number]) [address] [place] [address] 90523 Erythrocyte distribution width (RBC) [Ratio] 23.1 % High 11.5-15.0 [facility] Comment on above: Performed By: #### C BRUCE, 3040-3, CBCA, #### [facility] ([id number]) [address] [place] [address] 72178 Hematocrit (Bld) [Volume fraction] 26.3 % Low 35-47 [facility] Comment on above: Performed By: #### C BRUCE, 3039-07, CBCA, 1987-08, #### [facility] ([id number]) [address] [place] [address] 91971 Hemoglobin (Bld) [Mass/Vol] 9.3 g/dL Low 11.7-15.5 [facility] Comment on above: Performed By: #### C BRUCE, 3039-07, CBCA, 1987-08, #### [facility] ([id number]) [address] [place] [address] 84638 Lymphocytes (Bld) [#/Vol] 1.0 10*3/uL Normal 1.0-3.5 [facility] Comment on above: Performed By: #### Ethan BARRERA, 3039-07, CBCA, 1987-08, #### [facility] ([id number]) [address] [place] [address] 75428 Lymphocytes/100 WBC (Bld) 48.0 % Normal [facility] Comment on above: Performed By: #### Ethan BARRERA, 3039-07, CBCA, 1987-08, #### [facility] ([id number]) [address] [place] [address] 56707 MCH (RBC) [Entitic mass] 42.6 pg High 27-34 [facility] Comment on above: Performed By: #### C BRUCE, 3039-07, CBCA, 1987-08, #### [facility] ([id number]) [address] [place] [address] 97574 MCHC (RBC) [Mass/Vol] 35.5 g/dL Normal 32-36 [facility] Comment on above: Performed By: #### C BRUCE, 3039-07, CBCA, 1987-08, #### [facility] ([id number]) [address] [place] [address] 95470 MCV (RBC) [Entitic vol] 120 fL High 80-100 [facility] Comment on above: Performed By: #### C BRUCE, 3039-07, CBCA, 1987-08, #### [facility] ([id number]) [address] [place] [address] 01343 Monocytes (Bld) [#/Vol] 0.2 10*3/uL Normal 0-0.9 [facility] Comment on above: Performed By: #### C BRUCE, 3039-07, CBCA, 1987-08, #### [facility] ([id number]) [address] [place] [address] 85995 Monocytes/100 WBC (Bld) 7.0 % Normal [facility] Comment on above: Performed By: #### C BRUCE, 3039-07, CBCA, 1987-08, #### [facility] ([id number]) [address] [place] [address] 84225 Neutrophils (Bld) [#/Vol] 1.0 10*3/uL Low 1.5-6.6 [facility] Comment on above: Performed By: #### Ethan BARRERA, 3039-07, CBCA, 1987-08, #### [facility] ([id number]) [address] [place] [address] 46825 Platelet mean volume (Bld) [Entitic vol] 8.3 fL Normal 7-12 [facility] Comment on above: Performed By: #### C BRUCE, 3039-07, CBCA, 1987-08, #### [facility] ([id number]) [address] [place] [address] 93972 Platelets (Bld) [#/Vol] 122 10*3/uL Low 150-450 [facility] Comment on above: Performed By: #### C BRUCE, 3039-3, CBCA, 1987-08, #### [facility] ([id number]) [address] [place] [address] 74783 RBC COUNT 2.19 X10E12/L Low 3.80-5.20 [facility] Comment on above: Performed By: #### C BRUCE, 3039-3, CBCA, 1987-08, #### [facility] ([id number]) [address] [place] [address] 04281 SEG NEUTROPHIL 45.0 % Normal [facility] Comment on above: Performed By: #### Ethan BARRERA, 3039-, CBCA, 1987-08, #### [facility] ([id number]) [address] [place] [address] 83502 TEARDROP 1+ Abnormal NONE [facility] Comment on above: Performed By: #### C BRUCE, 3039-07, CBCA, 1987-08, #### [facility] ([id number]) [address] [place] [address] 29483 WBC (Bld) [#/Vol] 2.2 10*3/uL Low 4.0-11.0 [facility] Comment on above: Performed By: #### C BRUCE, 3039-3, CBCA, 1987-08, #### [facility] ([id number]) [address] [place] [address] 22538 COMPREHENSIVE METABOLIC PANE Elvin 08-19-2023 Albumin [Mass/Vol] 3.3 g/dL Normal 3.2-5.3 [facility] Comment on above: Performed By: #### Ethan BARRERA, 3039-3, CBCA, 1987-08, #### [facility] ([id number]) [address] [place] [address] 64605 ALP [Catalytic activity/Vol] 50 U/L Normal 39-130 [facility] Comment on above: Performed By: #### C BRUCE, 0-3, CBCA, 1987-08, #### [facility] ([id number]) [address] [place] [address] 09781 ALT [Catalytic activity/Vol] 26 U/L Normal 0-31 [facility] Comment on above: Performed By: #### C BRUCE, 3039-3, CBCA, 1987-08, #### [facility] ([id number]) [address] [place] [address] 74493 Anion gap [Moles/Vol] 5 mmol/L Normal 5-15 [facility] Comment on above: Performed By: #### C BRUCE, 3039-, CBCA, 1987-08, #### [facility] ([id number]) [address] [place] [address] 32101 AST [Catalytic activity/Vol] 29 U/L Normal 0-41 [facility] Comment on above: Performed By: #### C BRUCE, 3039-, CBCA, 1987-08, #### [facility] ([id number]) [address] [place] [address] 32952 Bilirubin [Mass/Vol] 1.2 mg/dL Normal 0.3-1.2 [facility] Comment on above: Performed By: #### C BRUCE, 0-3, CBCA, 1987-08, #### [facility] ([id number]) [address] [place] [address] 60789 Calcium [Mass/Vol] 9.0 mg/dL Normal 8.5-10.5 [facility] Comment on above: Performed By: #### C BRUCE, 0-3, CBCA, 1987-08, #### [facility] ([id number]) [address] [place] [address] 80743 Chloride [Moles/Vol] 107 mmol/L Normal 98-109 [facility] Comment on above: Performed By: #### C BRUCE, 3040-3, CBCA, 1987-08, #### [facility] ([id number]) [address] [place] [address] 00552 CO2 [Moles/Vol] 27 mmol/L Normal 22-32 [facility] Comment on above: Performed By: #### C BRUCE, 3039-3, CBCA, 1987-08, #### [facility] ([id number]) [address] [place] [address] 98935 Creatinine [Mass/Vol] 0.53 mg/dL Normal 0.40-1.00 [facility] Comment on above: Result Comment: METH OD TRACEABLE TO IDMS STANDARD Performed By: #### C BRUCE, 3, CBCA, 1987-08, #### [facility] ([id number]) [address] [place] [address] 65240 eGFR (CKD-EPI) NON-RACE DEPENDENT >90 Normal >59 [facility] Comment on above: Result Comment: Reported eGFR is based on the CKD-EPI 2020 equation that does not use a race coefficient. Performed By: #### C BRUCE, 3040-3, CBCA, 1987-08, #### [facility] ([id number]) [address] [place] [address] 68230 Glucose [Mass/Vol] 94 mg/dL Normal 65-99 [facility] Comment on above: Performed By: #### C BRUCE, 3040-3, CBCA, 1987-08, #### [facility] ([id number]) [address] [place] [address] 81436 Potassium [Moles/Vol] 3.2 mmol/L Low 3.5-5.0 [facility] Comment on above: Performed By: #### C BRUCE, 3039-07, CBCA, 1987-08, #### [facility] ([id number]) [address] [place] [address] 36236 Protein [Mass/Vol] 5.5 g/dL Low 6.0-8.0 [facility] Comment on above: Performed By: #### Ethan BARRERA, 3039-07, CBCA, 1987-08, #### [facility] ([id number]) [address] [place] [address] 32548 Sodium [Moles/Vol] 139 mmol/L Normal 134-146 [facility] Comment on above: Performed By: #### Ethan BARRERA, 3039-07, CBCA, 1987-08, #### [facility] ([id number]) [address] [place] [address] 44197 Urea nitrogen [Mass/Vol] 11 mg/dL Normal 5-23 [facility] Comment on above: Performed By: #### Ethan BARRERA, 3039-07, CBCA, 1987-08, #### [facility] ([id number]) [address] [place] [address] 30456 CRP [Mass/Vol]on 08-19-2023 C REACTIVE PROTEIN 0.9 mg/dL High 0.000-0.744 [facility] Comment on above: Performed By: #### Ethan BARRERA, 3039-07, CBCA, #### [facility] ([id number]) [address] [place] [address] 00728 DRUG SCREEN, URINEon 024 AMPHETAMINE/METHAMP Negative Normal NEG [facility] Comment on above: Result Comment: AMPH /METH screening cut off = 1000 ng/mL Performed By: #### A HP #### [facility] ([id number]) [address] [facility], [address] [place] [address] #### 44833-5 #### [facility] ([id number]) [address] [place] [address] 75216 BARBITURATES Negative Normal NEG [facility] Comment on above: Result Comment: Ana iturates screening cut off value = 200 ng/mL Performed By: #### A HP #### [facility] ([id number]) [address] [facility], [address] [place] [address] #### 51974-6 #### [facility] ([id number]) [address] [place] [address] 28270 BENZODIAZEPINES Negative Normal NEG [facility] Comment on above: Result Comment: Jeramie odiazepines screening cut off value = 200 ng/mL Performed By: #### A HP #### [facility] ([id number]) [address] [facility], [address] [place] [address] #### 95688-5 #### [facility] ([id number]) [address] [place] [address] 08232 CANNABINOIDS Positive Abnormal NEG [facility] Comment on above: Result Comment: Conf irmation available upon request. Cannabinoids/THC screening cut off value = 50 ng/mL Performed By: #### A HP #### [facility] ([id number]) [address] [facility], [address] [place] [address] #### 51552-5 #### [facility] ([id number]) [address] [place] [address] 86389 COCAINE METABOLITE Negative Normal NEG [facility] Comment on above: Result Comment: Coca ine screening cut off value = 300 ng/mL Performed By: #### A HP #### [facility] ([id number]) [address] [place] [address], [address] [place] [address] #### 23463-2 #### [facility] ([id number]) [address] [place] [address] 39192 ECSTASY Negative Normal NEG [facility] Comment on above: Result Comment: Ecst asy screening cut off value = 500 ng/mL This report is intended for use in clinical monitoring or management of patients. Performed By: #### A #### [facility] ([id number]) [address] [place] [address], [address] [place] [address] #### 55934-8 #### [facility] ([id number]) [address] [place] [address] 99215 METHADONE Negative Normal NEG [facility] Comment on above: Result Comment: Meth adone screening cut off value = 300 ng/mL. Performed By: #### A #### [facility] ([id number]) [address] [place] [address], [address] [place] [address] #### 97816-2 #### [facility] ([id number]) [address] [place] [address] 43331 OPIATES Negative Normal [facility] Comment on above: Result Comment: Opia chalo screening cut off value = 300 ng/mL NOTE: This test is used for the detection of codeine, hydrocodone (>1000 ng/mL), morphine and hydromorphone (>900 ng/mL) in urine. Performed By: #### A #### [facility] ([id number]) [address] [place] [address], [address] [place] [address] #### 67736-0 #### [facility] ([id number]) [address] [place] [address] [place] [address] OXYCODONE Negative Normal NEG [facility] Comment on above: Result Comment: Oxyc odone screening cut off value = 300 ng/mL NOTE: This test is used for the detection of oxycodone and oxymorphone in urine. Performed By: #### A HP #### [facility] ([id number]) [address] [place] [address], [address] [place] [address] #### 46008-0 #### [facility] ([id number]) [address] [place] [address] 06040 PHENCYCLIDINE Negative Normal NEG [facility] Comment on above: Result Comment: Phen cyclidine screening cut off value = 25 ng/mL Performed By: #### A HP #### [facility] ([id number]) [address] [place] [address], [address] [place] [address] #### 31374-6 #### [facility] ([id number]) [address] [place] [address] 97025 HCG ( test) Ql (U)o n 08-19-2023 Beta HCG ( test) Ql (U) Negative Normal NEG [facility] Comment on above: Performed By: #### 2 106-3 #### [facility] ([id number]) [address] [place] [address] 04714 LIPASEon 08-19-2023 Lipase [Catalytic activity/Vol] 25 U/L Normal 17-40 [facility] Comment on above: Performed By: #### C BRUCE, 3040-3, CBCA, #### [facility] ([id number]) [address] [place] [address] 87780 MAGNESIUMon 08-19-2023 Magnesium [Mass/Vol] 1.9 mg/dL Normal 1.8-2.6 [facility] Comment on above: Performed By: #### C BRUCE, 3040-3, CBCA, #### [facility] ([id number]) [address] [place] [address] 47606 SARS/FLU A+B/RSV by NAAT/Mol [facility] 08-19-2023 SARS/FLU A+B/RSV by NAAT/Molecular FLU [...] operators who are performing tests using either [employer] or [employer] systems and is limited to laboratories that [...] repeat. Fact Sheet for Healthcare Providers: https://www.fda.gov/ media/497196/downloa d Fact Sheet for Patients: https://www.fda.gov/ media/043965/downloa d [facility] Comment on above: Performed By: #### C OVFLR #### [facility] ([id number]) [address] [place] [address] [place] [address] URN MACROSCOPIC NURon 2023 BILIRUBIN ERA Small Abnormal NEG [facility] Comment on above: Performed By: #### N UM #### [facility] ([id number]) [address] [place] [address] [place] [address] BLOOD/HGB ERA Trace Abnormal NEG [facility] Comment on above: Performed By: #### N UM #### [facility] ([id number]) [address] [place] [address] [place] [address] GLUCOSE ERA Negative Normal NEG [facility] Comment on above: Performed By: #### N UM #### [facility] ([id number]) [address] [place] [address] [place] [address] KETONES ERA Negative Normal NEG [facility] Comment on above: Performed By: #### N UM #### [facility] ([id number]) [address] [place] [address] [place] [address] LEUKOCYTE ESTERASE ERA Small Abnormal NEG Pr [facility] Comment on above: Performed By: #### N UM #### [facility] ([id number]) [address] [place] [address] [place] [address] NITRITE ERA Positive Abnormal NEG [facility] Comment on above: Performed By: #### N UM #### [facility] ([id number]) [address] [place] [address] [place] [address] PH ERA 6.0 Normal 5.0-8.5 [facility] Comment on above: Performed By: #### N UM #### [facility] ([id number]) [address] [place] [address] [place] [address] PROTEIN ERA Negative Normal NEG [facility] Comment on above: Performed By: #### N UM #### [facility] ([id number]) [address] [facility] [place] [address] SPECIFIC GRAVITY ERA 1.025 Normal 1.003-1.035 [facility] Comment on above: Performed By: #### N UM #### [facility] ([id number]) [address] [facility], [place] [address] UROBILINOGEN ERA >=8.0 Normal <1.1 [facility] Comment on above: Performed By: #### N UM #### [facility] ([id number]) [address] [facility], [place] [address] ED Note-Physicianon 07-23-19 ED Note-Physician Basic Information Time Seen: Bernadette Gil PA-C 07/06/2023 15:16 Chief Complaint Pt reports vaginal itching and burning with urination for 1.5 months. Brown vaginal discharge. Pt also reports sinus congestion for 3-4 days. History of Present Illness 33-year-old female presents with brown vaginal discharge for the past 2 months. She states that she has followed up in [place] [facility] for this, but they did not [...] to follow-up with the health department or [employer]. Nasal congestion sounds viral and can use [id number] medications and follow-up family doctor. Afebrile, not [...] prescription medications Follow-up With When Contact Information [facility] Dept: [phone] In 3 days 07/09/2023 EST Additional Instructions: Boubacar MULLINS, Zev Webber, ORS Within 2 to 4 days [address] [place] [address]- Additional Instructions: Patient Education Viral Respiratory Infection, [id number]-[id number] Attestation I performed a substantive part of [...] No. Hous (more content not included)... Normal [facility] Comment on above: Result Comment: Elec tronically Signed By: Bernadette Gil PA-C\.br\Date and Time Signed: 07/06/23 16:00 EST\.br\Electronically Co-Signed By: Adolfo Hernandez MD\.br\Date and Time Co-Signed: 07/23/23 19:29 EDT Chlam/GC/Trich,NAAon 024 C. trachomatis rRNA BETZAIDA+probe Ql (Unsp spec) Negative Invalid Interpretation Code Negative [facility] Comment on above: Performed By: #### 1 [id number] #### [facility] [address] [place] [address] N. gonorrhoeae rRNA BETZAIDA+probe Ql (Unsp spec) Negative Invalid Interpretation Code Negative [facility] Comment on above: Performed By: #### 1 [id number] #### [facility] [address] [place] [address] T. vaginalis rRNA BETZAIDA+probe Ql (Unsp spec) Negative Invalid Interpretation Code Negative [facility] Comment on above: Result Comment: Perf ormed at: =G [facility] [address] [place] [id number] MD Tamika Eid Performed By: #### 1 [id number] #### [facility] [address] [place] [address] C Urineon 07-08-2023 Bacteria identified Cx Nom (U) Microbiology PROCEDURE: Urine Culture [R1] SOURCE: U CleanCatch BODY SITE: COLLECTED DATE/TIME: 07/06/2023 15:19 EST RECEIVED DATE/TIME: 07/06/2023 15:33 EST START DATE/TIME: 07/06/2023 15:33 EST FREE TEXT SOURCE: Louise JONAS, Bernadette iGl PA-C, Bernadette Adams FINAL REPORTS Final Report [...] Locations R1: This test was performed at: [facility], [address] [place] [address], [id number] , , [facility] Comment on above: Performed By: #### 2 [id number], [id number], [id number] #### [facility] [address] [place] [address] CHEMISTRYOrdered By: SYSTEM SYSTEM on 07-06-2023 Amphetamines [...] for Treatmenton Consent for Treatment [id number] #1.00TIFF Normal [facility] Discharge Instructionson Discharge Instructions [id number] 6#1.00TIFF Normal [facility] ED Clinical Summaryon 2023 ED Clinical Summary [address] [address] ED Clinical Summary Person Information Name: SANGEETA MYLES Sowmya/[facility] Age: 33 Years : 1990 Sex: Female Language: Citizen Of [place] PCP: NONE, XXXX Marital Status: Single Visit [...] 07/06/2023 16:02:43 07/06/2023 16:02:43 07/06/2023 16:02:43 ADDRESS: [facility] [id number] PHYS DOC NOTES: MEDICAL INFORMATION: Prescriptions Given: Medications to Continue with No Changes Other Medications albuterol (albuterol 0.083% Inh Valerie 3 mL) 3 Milliliter Inhalation every 6 hours as needed for wheezing. PATIENT EDUCATION INFORMATION: Instructions: Viral Respiratory Infection, Jnxb-Gq-Fych Follow up: With: Address: When: Boubacar MULLINS, Zev Webber, ORS [address], [facility] [address] [place] [address] Within 2 to 4 days With: Address: When: [facility] Dept: [phone] In 3 days 07/09/2023 DIAGNOSIS: 1:Viral sinusitis; 2:Vaginal discharge; Other viral agents as the cause of diseases classified elsewhere Normal [facility] ED Patient Education Noteon 07-06-2023 ED [...] home: Managing pain and congestion ? 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 ? Cover your mouth when you [...] provider. Document Revised: 07/23/2021 Document Reviewed: 07/23/2021 [employer] Patient Education ? 2022 [employer]. Normal [facility] ED Patient Summaryon 024 ED Patient Summary [address] [address] Patient Discharge Instructions Person Information Name: SANGEETA MYLES Age: 33 Years Arrival Date: 07/06/2023 15:07:04 Discharge Diagnosis: 1:Viral sinusitis; 2:Vaginal discharge; Other viral agents as the cause of diseases classified elsewhere Primary Care Physician: NONE, XXXX Provider Information Primary Provider: Advanced Resp Therapist:None The exam and treatment you received in the Emergency Department were for an urgent problem and are not intended as complete care. It is important that you follow up with a doctor, nurse practitioner, or physician?s studio assistant for ongoing care. If your symptoms [...] When: Boubacar MULLINS, Zev Webber, ORS [address] [facility], [facility] [address] [place] [address] Within 2 to 4 days With: [facility]: [phone] In 3 days 07/09/2023 In the event that this physician does not participate in your insurance network, please consult with your insurance company to find a nearby participating provider. Patient Education Materials: Viral Respiratory Infection, Yqyy-Di-Ibmc A MESSAGE TO ALL PATIENTS REGARDING OPIOIDS PRESCRIPTION OPIOIDS: WHAT YOU NEED TO KNOW Prescription opioids can be used to help relieve hfcuitwn-kv-zrrbuq pain and are often prescribed following a [...] be strugglin (more content not included)... Normal [facility] No Panel InformationOrdered By: Bella Flower on 07-06-2023 WP No clue cells present No Trichomonas vaginalis present No yeast seen [facility] SEROLOGYOrdered By: Jules Stovereon on 07-06-2023 HCG.beta subunit (U) [Moles/Vol] Negative Normal [facility] Man Sero U BetaHcg Qualon 07-06-2023 HCG.beta subunit (U) [Moles/Vol] Negative Normal [facility] Comment on above: Performed By: #### 2 [id number], [id number], [id number] #### [facility] [address] [place] [address] U Drug Screenon 07-06-2023 Amphetamines Screen method >1000 ng/mL Ql (U) Negative Normal NEGATIVE [facility] Comment on above: Performed By: #### 2 [id number] #### [facility] [address] [place] [address] Barbiturates Screen Ql (U) Negative Normal NEGATIVE [facility] Comment on above: Performed By: #### 2 [id number] #### [facility] [address] [place] [address] Benzodiazepines Ql (U) Negative Normal NEGATIVE [facility] Comment on above: Performed By: #### 2 [id number] #### [facility] [address] [place] [address] Cannabinoids Screen Ql (U) Positive Abnormal NEGATIVE [facility] Comment on above: Performed By: #### 2 [id number] #### [facility] [address] [place] [address] Cocaine Ql (U) Negative Normal NEGATIVE [facility] Comment on above: Performed By: #### 2 [id number] #### [facility] [address] [place] [address] Opiates Screen Ql (U) Negative Normal NEGATIVE [facility] Comment on above: Performed By: #### 2 [id number] #### [facility] [address] [place] [address] Phencyclidine Screen method >25 ng/mL Ql (U) Negative Normal NEGATIVE [facility] Comment on above: Performed By: #### 2 [id number] #### [facility] [address] [place] [address] UA With Cult Reflexon 2023 Color (U) YELLOW Normal Yellow [facility] Comment on above: Performed By: #### 2 [id number], [id number], [id number] #### [facility] [address] [place] [address] Glucose (U) [Mass/Vol] Negative Normal Negative [facility] Comment on above: Performed By: #### 2 [id number], [id number], [id number] #### [facility] [address] [place] [address] Ketones Ql (U) Negative Normal Negative [facility] Comment on above: Performed By: #### 2 [id number], [id number], [id number] #### [facility] [address] [place] [address] UA Blood Negative Normal Negative [facility] Comment on above: Performed By: #### 2 [id number], [id number], [id number] #### [facility] [address] [place] [address] UA Amorph Nelsy Present Normal [facility] Comment on above: Performed By: #### 2 [id number], [id number], [id number] #### [facility] [address] [place] [address] UA Bacteria TRACE Normal Trace [facility] Comment on above: Performed By: #### 2 [id number], [id number], [id number] #### [facility] [address] [place] [address] UA Clarity CLEAR Normal Clear [facility] Comment on above: Performed By: #### 2 5443435, [id number], [id number] #### [facility] [address] [place] [address] UA Leuk Est 2+ Abnormal Negative [facility] Comment on above: Performed By: #### 2 [id number], [id number], [id number] #### [facility] [address] [place] [address] UA Mucous 1+ Normal [facility] Comment on above: Performed By: #### 2 7220831, [id number], 9682117 #### [facility] [address] [place] [address] UA Nitrite Negative Normal Negative [facility] Comment on above: Performed By: #### 2 7524603, [id number], [id number] #### [facility] [address] [place] [address] UA pH 8.5 Invalid Interpretation Code 5.0-9.0 [facility] Comment on above: Performed By: #### 2 [id number], [id number], [id number] #### [facility] [address] [place] [address] UA Protein 2+ Abnormal Negative [facility] Comment on above: Performed By: #### 2 4278651, 70912013, 5093866 #### [facility] [address] [place] [address] UA RBC 0-3 Normal 0-3 [facility] Comment on above: Performed By: #### 2 [id number], [id number], [id number] #### [facility] [address] [place] [address] UA Spec Desc Clean Catch Normal [facility] Comment on above: Performed By: #### 2 [id number], [id number], [id number] #### [facility] [address] [place] [address] UA Spec Grav 1.010 Invalid Interpretation Code 1.005-1.030 [facility] Comment on above: Performed By: #### 2 [id number], [id number], [id number] #### [facility] [address] [place] [address] UA Squam Epithelial 3-4 Normal 0-2 [facility] Comment on above: Performed By: #### 2 0737956, [id number], [id number] #### [facility] [address] [place] [address] UA Urobilinogen 4.0 EU/dL Abnormal 0.0-1.0 [facility] Comment on above: Performed By: #### 2 1155702, [id number], [id number] #### [facility] [address] [place] [address] UA WBC 16-25 Abnormal 0-5 [facility] Comment on above: Performed By: #### 2 [id number], [id number], [id number] #### [facility] [address] [place] [address] Urobilinogen (U) [Mass/Vol] Negative Normal Negative [facility] Comment on above: Performed By: #### 2 [id number], 20143498, [id number] #### [facility] [address] [place], [place] [id number] URINALYSISOrdered By: Jules Ny on 07-06-2023 Color (U) Yellow (07/06/23 3:19 PM) Normal Yellow [facility] UA Auto SS Ketones Ql (U) Negative [...] HCV W/PCR REFLX Reactive Abnormal NRCT [facility] Comment on above: Result Comment: Supplemental testing for HCV RNA by PCR has been ordered per CDC recommendations. Pllhvn-nm-mqsiwy ratio is >=1.00. Performed By: #### A #### [facility] ([id number]) [address] [facility], [address] [place] [address] #### 95632-1 #### [facility] ([id number]) [address] [place] [address] HEPATITIS A IGM Non-Reactive Normal NRCT [facility] Comment on above: Performed By: #### A HP #### [facility] ([id number]) [address] [facility], [address] [place] [address] #### 92661-9 #### [facility] ([id number]) [address] [place] [address] HEPATITIS B CORE IGM Negative Normal NEG [facility] Comment on above: Performed By: #### A HP #### [facility] ([id number]) [address] [place] [address], [address] [place] [address] #### 23152-1 #### [facility] ([id number]) [address] [place] [address] HEPATITIS B SURF AG Negative Normal NEG [facility] Comment on above: Performed By: #### A HP #### [facility] ([id number]) [address] [place] [address], [address] [place] [address] #### 09000-3 #### [facility] ([id number]) [address] [place] [address] HCV RNA BETZAIDA+probe Qnon 06-17 HCV RNA QUANT PCR [id number] IU/mL Abnormal Undetected [facility] Comment on above: Result Comment: NOTE Result in log IU/mL is 6.72. ADDITIONAL INFORMATION The quantification range of this assay is 15 to 100,000,000 IU/mL (1.18 log to 8.00 log IU/mL). Testing was performed using the valentin HCV test ([employer] Test Performed by: [facility] [address] [place] [address] Manager House: Ruddy Gonzalez M.D. Ph.D.; CLIA# [id number] Performed By: #### A HP #### [facility] ([id number]) [address] [facility], [address] [place] [address] #### 12453-0 #### [facility] ([id number]) [address] [facility], [place] [address] Cult,Urineon 12-11-2022 Cult,Urine Specimen Description .URINE Culture Several types of bacteria were identified in this specimen. Further ID and susceptibility testing is generally not helpful in this circumstance and has not been performed. Consider recollection if clinically indicated. Report Status FINAL 12/11/2022 Normal [facility] Comment on above: Performed By: #### P HEP, HIVCMB #### [address] [address] Manager House: Antonino Nova MD #### BMPCMP, BMP, CBC #### [facility] [address] [place] [address] [place] [address] Manager House: Merlin Charles MD UA w/Reflex Cultureon 2022 Bilirubin, SemiQt,Ur Negative Normal NEG [facility] Comment on above: Performed By: #### P HEP, HIVCMB #### [address] [address] Manager House: Antonino Nova MD #### BMPCMP, BMP, CBC #### [facility] [address] [place] [address] Manager House: Merlin Charles MD Blood, Urine Negative Normal NEG [facility] Comment on above: Performed By: #### P HEP, HIVCMB #### [address] [id number] Manager House: Antonino Nova MD #### BMPCMP, BMP, CBC #### [address] [place], [place] [phone] Manager House: Merlin Charles MD Clarity (U) Clear Normal CLEAR [facility] Comment on above: Performed By: #### P HEP, HIVCMB #### [address] [address] Manager House: Antonino Nova MD #### BMPCMP, BMP, CBC #### [address] [place], [place] 2783483 Manager House: Merlin Charles MD Color (U) Yellow Normal YEL [facility] Comment on above: Performed By: #### P HEP, HIVCMB #### [address] [address] Manager House: Antonino Nova MD #### BMPCMP, BMP, CBC #### [address] [place], [place] 8804183 Manager House: Merlin Charles MD Glucose Ql (U) Negative Normal NEG [facility] Comment on above: Performed By: #### P HEP, HIVCMB #### [address] [address] Manager House: Antonino Nova MD #### BMPCMP, BMP, CBC #### [address] [place], [place] 2730983 Manager House: Merlin Charles MD Ketones Ql (U) Negative Normal NEG [facility] Comment on above: Performed By: #### P HEP, HIVCMB #### [address] [address] Manager House: Antonino Nova MD #### BMPCMP, BMP, CBC #### [address] [place], [place] [phone] Manager House: Merlin Charles MD Leukocyte esterase Test strip Ql (U) LARGE Abnormal NEG [facility] Comment on above: Performed By: #### P HEP, HIVCMB #### [address] [address] Manager House: Antonino Nova MD #### BMPCMP, BMP, CBC #### [address] [place], [place] 2954983 Manager House: Merlin Charles MD Nitrite,Ur Negative Normal NEG [facility] Comment on above: Performed By: #### P HEP, HIVCMB #### [address] [address] Manager House: Antonino Nova MD #### BMPCMP, BMP, CBC #### [address] [place] [address] Manager House: Merlin Charles MD PH,Ur 6.0 Normal 5.0-9.0 [facility] Comment on above: Performed By: #### P HEP, HIVCMB #### [address] [address] Manager House: Antonino Nova MD #### BMPCMP, BMP, CBC #### [address] [place] [address]2783 Manager House: Merlin Charles MD Protein Ql (U) Negative Normal NEG [facility] Comment on above: Performed By: #### P HEP, HIVCMB #### [address] [address] Manager House: Antonino Nova MD #### BMPCMP, BMP, CBC #### [address] [place], [place] 6103083 Manager House: Merlin Charles MD Spec. [place],Ur 1.025 High 1.010-1.020 [facility] Comment on above: Performed By: #### P HEP, HIVCMB #### [address] [address] Manager House: Antonino Nova MD #### BMPCMP, BMP, CBC #### [address] [place] [phone] Manager House: Merlin Charles MD Urobilinogen,Ur Normal Normal 0.0-1.0 [facility] Comment on above: Performed By: #### P HEP, HIVCMB #### [address] [address] Manager House: Antonino Nova MD #### BMPCMP, BMP, CBC #### [address] [place] 0[address]2783 Manager House: Merlin Charles MD Urinalysis,Microon 3 Bacteria 3+ Abnormal NONE [facility] Comment on above: Performed By: #### P HEP, HIVCMB #### [place] [address] Manager House: Antonino Nova MD #### BMPCMP, BMP, CBC #### [address] [place] 0792783 Manager House: Merlin Charles MD Epithelial cells LM Ql (Urine sed) 0 TO 2 Normal 0-25 [facility] Comment on above: Performed By: #### P HEP, HIVCMB #### [address] [address] Manager House: Antonino Nova MD #### BMPCMP, BMP, CBC #### [address] [place] 0792783 Manager House: Merlin Charles MD Urine RBC's 0 TO 2 Normal 0-2 [facility] Comment on above: Performed By: #### P HEP, HIVCMB #### [place] [address] [place], [place] [phone] Manager House: Antonino Nova MD #### BMPCMP, BMP, CBC #### [facility] [address] [place] [address] [place] [address] Manager House: Merlin Charles MD Urine WBC's 10 TO 20 Normal 0-5 [facility] Comment on above: Performed By: #### P HEP, HIVCMB #### [place] [address] [place], [place] [phone] Manager House: Antonino Nova MD #### BMPCMP, BMP, CBC #### [facility] [address] [place] [address] [place] [address] Manager House: Merlin Charles MD Cult,Urineon 09-24-2022 Cult,Urine Specimen Description .VOIDED URINE Culture ESCHERICHIA COLI >975644 CFU/ML STREPTOCOCCI, BETA HEMOLYTIC GROUP B >799293 CFU/ML Report Status FINAL 09/24/2022 SUSCEPTIBILITY Organism [...] Tobramycin <=1 SUSCEPTIBLE Trimethoprim/Sulfa <=20 SUSCEPTIBLE Susceptible [facility] Comment on above: Performed By: #### U RC #### [address] [phone] Manager House: Antonino Nova MD [facility] [address] [place] [address] [place] [address] Manager House: Merlin Charles MD Chlamydia/GC,DNA Ampon 09-23 Chlamydia Probe Negative Normal [facility] Comment on above: Result Comment: CHLA [...] Performed By: #### U ANKITA, UA #### [facility] [address] [place] [address] Manager House: Merlin Charles MD #### SWCGP #### [address] [address] Manager House: Antonino Nova MD Gonorrhea Probe Negative [facility] Comment on above: Result Comment: NEIS SERIA [...] Performed By: #### U ANKITA, UA #### [facility] [address] [place] [address] Manager House: Merlin Charles MD #### SWCGP #### [address] [address] Manager House: Antonino Nova MD Trichomonas/Wet Prepon 09-22 Trichomonas/Wet Prep Specimen Descriptio n .VAGINAL SPECIMEN Direct Exam NO YEAST OBSERVED NO TRICHOMONAS SEEN NO CLUE CELLS SEEN Report Status FINAL 09/22/2022 [facility] Comment on above: Performed By: #### P HEP, HIVCMB #### [address] [address] Manager House: Antonino Nova MD #### BMPCMP, BMP, CBC #### [facility] [address] [place], [place] [phone] Manager House: Merlin Charles MD Urinalysis, Routineon 2022 Bilirubin, SemiQt,Ur Negative Normal NEG [facility] Comment on above: Performed By: #### U MICAO, UA #### [facility] [address] [place], [place] [phone] Manager House: Merlin Charles MD #### SWCGP #### [address] [address] Manager House: Antonino Nova MD Blood, Urine Negative Normal NEG [facility] Comment on above: Performed By: #### U MICAO, UA #### [facility] [address] [place] [address] [place], [place] [phone] Manager House: Merlin Charles MD #### SWCGP #### [address] [address] Manager House: Antonino Nova MD Clarity (U) Cloudy Abnormal CLEAR [facility] Comment on above: Performed By: #### U MICAO, UA #### [address] [place], [place] [phone] Manager House: Merlin Charles MD #### SWCGP #### [address] [address] Manager House: Antonino Nova MD Color (U) Yellow Normal YEL [facility] Comment on above: Performed By: #### U MICAO, UA #### [facility] [address] [place], [place] [phone] Manager House: Merlin Charles MD #### SWCGP #### [address] [address] Manager House: Antonino Nova MD Glucose Ql (U) Negative Normal NEG [facility] Comment on above: Performed By: #### U MICAO, UA #### [facility] [address] [place] [address] [address] [place], [place] [phone] Manager House: Merlin Charles MD #### SWCGP #### [address] [address] Manager House: Antonino Nova MD Ketones Ql (U) Negative Normal NEG [facility] Comment on above: Performed By: #### U MICAO, UA #### [facility] [address] [place] [address] [address] [place], [place] [phone] Manager House: Merlin Charles MD #### SWCGP #### [address] [address] Manager House: Antonino Nova MD Leukocyte esterase Test strip Ql (U) MODERATE Abnormal NEG [facility] Comment on above: Performed By: #### U MICAO, UA #### [facility] [address] [place] [address] [address] [place], [place] [phone] Manager House: Merlin Charles MD #### SWCGP #### [address] [address] Manager House: Antonino Nova MD Nitrite,Ur Positive Abnormal NEG [facility] Comment on above: Performed By: #### U MICAO, UA #### [facility] [address] [place] [address] [address] [place], [place] [phone] Manager House: Merlin Charles MD #### SWCGP #### [address] [address] Manager House: Antonino Nova MD PH,Ur 6.0 Normal 5.0-9.0 [facility] Comment on above: Performed By: #### U MICAO, UA #### [address] [place] [address] Manager House: Merlin Charles MD #### SWCGP #### [address] [address] Manager House: Antonino Nova MD Protein Ql (U) Negative Normal NEG [facility] Comment on above: Performed By: #### U MICAO, UA #### [facility] [address] [place] [address] [place] [address] Manager House: Merlin Charles MD #### SWCGP #### [address] [address] Manager House: Antonino Nova MD Spec. [place],Ur 1.025 High 1.010-1.020 [facility] Comment on above: Performed By: #### U MICAO, UA #### [address] [place] [address] Manager House: Merlin Charles MD #### SWCGP #### [address] [address] Manager House: Antonino Nova MD Urobilinogen,Ur Normal Normal NORM [facility] Comment on above: Performed By: #### U MICAO, UA #### [address] [place] [address] Manager House: Merlin Charles MD #### SWCGP #### [address] [address] Manager House: Antonino Nova MD Urinalysis,Microon 3 Bacteria 3+ Abnormal NONE [facility] Comment on above: Performed By: #### U MICAO, UA #### [address] [place], [place] 6045083 Manager House: Merlin Charles MD #### SWCGP #### [place] [address] [place] [address] Manager House: Antonino Nova MD Epithelial cells LM Ql (Urine sed) 0 TO 2 Normal 0-25 [facility] Comment on above: Performed By: #### U KIMO, UA #### [facility] [address] [place], [place] [phone] Manager House: Merlin Charles MD #### SWCGP #### [address] [address] Manager House: Antonino Nova MD Mucus Strands 1+ Abnormal NONE [facility] Comment on above: Performed By: #### U KIMO, UA #### [facility] [address] [place] [address] [address] [place], [place] [phone] Manager House: Merlin Charles MD #### SWCGP #### [address] [address] Manager House: Antonino Nova MD Urine RBC's 0 TO 2 Normal 0-2 [facility] Comment on above: Performed By: #### U KIMO, UA #### [facility] [address] [place] [address] [address] [place], [place] 7605983 Manager House: Merlin Charles MD #### SWCGP #### [address] [address] Manager House: Antonino Nova MD Urine WBC's 10 TO 20 Normal 0-5 [facility] Comment on above: Performed By: #### U KIMO, UA #### [facility] [facility] [address] [place], [place] [id number] Manager House: Merlin Charles MD #### SWCGP #### [address] [address] Manager House: Antonino Nova MD HCV RNA,Quant,PCRon 09-15-19 23 HCV Quant [id number] IU/mL Normal [facility] Comment on above: Performed By: #### H CVQN #### [facility] [address] [place] [address] Manager House: Antonino Nova MD [facility] [address] [place] [address] [place] [address] Manager House: Merlin Charles MD HCV RNA,Quant Detected Abnormal NOTDET [facility] Comment on above: Result Comment: INTERPRETIVE INFORMATION: [...] (HCT/P). Performed By: #### H CVQN #### [address] [place] [address] Manager House: Antonino Nova MD [address] [place] [address] Manager House: Merlin Charles MD HCV,RNA Log 6.95 Log IU/mL [facility] Comment on above: Performed By: #### H CVQN #### [address] [place] [address] Manager House: Antonino Nova MD [facility] [address] [place] [address] [place] [address] Manager House: Merlin Charles MD CBCon 09-13-2022 Erythrocyte distribution width (RBC) [Ratio] 17.7 % High 11.8-14.4 [facility] Comment on above: Performed By: #### P HEP, HIVCMB #### [address] [address] Manager House: Antonino Nova MD #### BMPCMP, BMP, CBC #### [address] [place] [phone] Manager House: Merlin Charles MD Hematocrit (Bld) [Volume fraction] 39.8 % Normal 36.3-47.1 [facility] Comment on above: Performed By: #### P HEP, HIVCMB #### [address] [address] Manager House: Antonino Nova MD #### BMPCMP, BMP, CBC #### [address] [place] [phone] Manager House: Merlin Charles MD Hemoglobin (Bld) [Mass/Vol] 13.5 g/dL Normal 11.9-15.1 [facility] Comment on above: Performed By: #### P HEP, HIVCMB #### [place] [address] Manager House: Antonino Nova MD #### BMPCMP, BMP, CBC #### [address] [place] [phone] Manager House: Merlin Charles MD MCH (RBC) [Entitic mass] 35.6 pg High 25.2-33.5 [facility] Comment on above: Performed By: #### P HEP, HIVCMB #### [address] [phone] Manager House: Antonino Nova MD #### BMPCMP, BMP, CBC #### [address] [place] [phone] Manager House: Merlin Charles MD MCHC (RBC) [Mass/Vol] 33.9 g/dL Normal 28.4-34.[address] [facility] Comment on above: Performed By: #### P HEP, HIVCMB #### [address] [phone] Manager House: Antonino Nova MD #### BMPCMP, BMP, CBC #### [address] [place] [phone] Manager House: Merlin Charles MD MCV (RBC) [Entitic vol] 105.0 fL High 82.6-102.9 [facility] Comment on above: Performed By: #### P HEP, HIVCMB #### [address] [address] Manager House: Antonino Nova MD #### BMPCMP, BMP, CBC #### [address] [place] [phone] Manager House: Merlin Charles MD NRBC Automated 0.0 per 100 WBC Normal 0.0 [facility] Comment on above: Performed By: #### P HEP, HIVCMB #### [place] [address] Manager House: Antonino Nova MD #### BMPCMP, BMP, CBC #### [address] [place] [phone] Manager House: Merlin Charles MD Platelet mean volume (Bld) [Entitic vol] 10.2 fL Normal 8.1-13.5 [facility] Comment on above: Performed By: #### P HEP, HIVCMB #### [address] [phone] Manager House: Antonino Nova MD #### BMPCMP, BMP, CBC #### [address] [place] [phone] Manager House: Merlin Charles MD Platelets (Bld) [#/Vol] 128 10*3/uL Low 138-453 [facility] Comment on above: Performed By: #### P HEP, HIVCMB #### [address] [address] Manager House: Antonino Nova MD #### BMPCMP, BMP, CBC #### [address] [place] [phone] Manager House: Merlin Charles MD RBC (Bld) [#/Vol] 3.79 10*6/uL Low 3.95-5.11 [facility] Comment on above: Performed By: #### P HEP, HIVCMB #### [place] [address] Manager House: Antonino Nova MD #### BMPCMP, BMP, CBC #### [address] [place] [facility]83 Manager House: Merlin Charles MD WBC (Bld) [#/Vol] 3.7 10*3/uL Normal 3.5-11.3 [facility] Comment on above: Performed By: #### P HEP, HIVCMB #### [place] [address] Manager House: Antonino Nova MD #### BMPCMP, BMP, CBC #### [address] [place] [address] Manager House: Merlin Charles MD Hematocrit (Bld) [Volume fraction] 39.8 % 36.3 - 47.1 % [facility] Hemoglobin (Bld) [Mass/Vol] 13.5 g/dL 11.9 - 15.1 g/dL [facility] Interpretation and review of laboratory results Abnormal [facility] MCH (RBC) [Entitic mass] 35.6 pg High 25.2 - 33.5 pg [facility] MCHC (RBC) [Mass/Vol] 33.9 g/dL 28.4 - 34.8 g/dL [facility] MCV (RBC) [Entitic vol] 105.0 fL High 82.6 - 102.9 fL [facility] NRBC Automated 0.0 0.0 per 100 WBC [facility] Platelet distribution width (Bld) [Ratio] 17.7 % High 11.8 - 14.4 % [facility] Platelet mean volume (Bld) [Entitic vol] 10.2 fL 8.1 - 13.5 fL [facility] Platelets (Bld) [#/Vol] 128 10*3/uL Low [facility] RBC (Bld) [#/Vol] 3.79 10*6/uL Low 3.95 - 5.1 1 m/uL [facility] WBC (Bld) [#/Vol] 3.7 10*3/uL [facility] Comp Metabolic Profon 2022 Albumin [Mass/Vol] 4.1 g/dL Normal 3.5-5.2 [facility] Comment on above: Performed By: #### P HEP, HIVCMB #### [address] [id number] Manager House: Antonino Nova MD #### BMPCMP, BMP, CBC #### [address] [place] [address] Manager House: Merlin Charles MD Albumin/Glob Ratio 2.1 Normal 1.0-2.5 [facility] Comment on above: Performed By: #### P HEP, HIVCMB #### [address] [phone] Manager House: Antonino Nova MD #### BMPCMP, BMP, CBC #### [address] [place] [address] Manager House: Merlin Charles MD Alkaline Phos 67 U/L Normal 35-104 [facility] Comment on above: Performed By: #### P HEP, HIVCMB #### [address] [address] Manager House: Antonino Nova MD #### BMPCMP, BMP, CBC #### [address] [place] [address] Manager House: Merlin Charles MD ALT [Catalytic activity/Vol] 41 U/L High 5-33 [facility] Comment on above: Performed By: #### P HEP, HIVCMB #### [address] [address] Manager House: Antonino Nova MD #### BMPCMP, BMP, CBC #### [address] [place] [phone] Manager House: Merlin Charles MD Anion gap [Moles/Vol] 6 mmol/L Low 9-[address] [facility] Comment on above: Performed By: #### P HEP, HIVCMB #### [address] [address] Manager House: Antonino Nova MD #### BMPCMP, BMP, CBC #### [address] [place] [phone] Manager House: Merlin Charles MD AST [Catalytic activity/Vol] 52 U/L High <32 [facility] Comment on above: Performed By: #### P HEP, HIVCMB #### [address] [address] Manager House: Antonino Nova MD #### BMPCMP, BMP, CBC #### [address] [place] [address] Manager House: Merlin Charles MD Bilirubin [Mass/Vol] 0.6 mg/dL Normal 0.3-1.2 [facility] Comment on above: Performed By: #### P HEP, HIVCMB #### [address] [address] Manager House: Antonino Nova MD #### BMPCMP, BMP, CBC #### [address] [place] [phone] Manager House: Merlin Charles MD BUN/CRE Ratio 16 Normal 9-20 [facility] Comment on above: Performed By: #### P HEP, HIVCMB #### [address] [address] Manager House: Antonino Nova MD #### BMPCMP, BMP, CBC #### [address] [place] [phone] Manager House: Merlin Charles MD Calcium [Mass/Vol] 10.0 mg/dL Normal 8.6-10.4 [facility] Comment on above: Performed By: #### P HEP, HIVCMB #### [address] [address] Manager House: Antonino Nova MD #### BMPCMP, BMP, CBC #### [address] [place] [phone] Manager House: Merlin Charles MD Chloride [Moles/Vol] 108 mmol/L High 98-107 [facility] Comment on above: Performed By: #### P HEP, HIVCMB #### [address] [address] Manager House: Antonino Nova MD #### BMPCMP, BMP, CBC #### [address] [place] [address] Manager House: Merlin Charles MD CO2 [Moles/Vol] 28 mmol/L Normal 20-31 [facility] Comment on above: Performed By: #### P HEP, HIVCMB #### [address] [place] [address] Manager House: Antonino Nova MD #### BMPCMP, BMP, CBC #### [facility] [address] [place] [address] Manager House: Merlin Charles MD Creatinine [Mass/Vol] 0.61 mg/dL Normal 0.50-0.[address] [facility] Comment on above: Performed By: #### P HEP, HIVCMB #### [address] [id number] Manager House: Antonino Nvoa MD #### BMPCMP, BMP, CBC #### [address] [place] [address] Manager House: Merlin Charles MD GFR/1.73 sq M.predicted among non-blacks MDRD (S/P/Bld) [Vol rate/Area] mL/min/{1.73_m2} Normal >60 [facility] Comment on above: Result Comment: These [...] Performed By: #### P HEP, HIVCMB #### [address] [phone] Manager House: Antonino Nova MD #### BMPCMP, BMP, CBC #### [facility] [address] [place] [address] Manager House: Merlin Charles MD Glucose [Mass/Vol] 87 mg/dL Normal 70-99 [facility] Comment on above: Performed By: #### P HEP, HIVCMB #### [address] [address] Manager House: Antonino Nova MD #### BMPCMP, BMP, CBC #### [facility] [address] [place] [address] Dr. [place] [phone] Manager House: Merlin Charles MD Potassium [Moles/Vol] 5.0 mmol/L Normal 3.7-5.[address] [facility] Comment on above: Performed By: #### P HEP, HIVCMB #### [address] [address] Manager House: Antonino Nova MD #### BMPCMP, BMP, CBC #### [address] [place] [phone] Manager House: Merlin Charles MD Protein [Mass/Vol] 6.1 g/dL Low 6.4-8.3 [facility] Comment on above: Performed By: #### P HEP, HIVCMB #### [address] [address] Manager House: Antonino Nova MD #### BMPCMP, BMP, CBC #### [address] [place] [phone] Manager House: Merlin Charles MD Sodium [Moles/Vol] 142 mmol/L Normal 135-144 [facility] Comment on above: Performed By: #### P HEP, HIVCMB #### [address] [address] Manager House: Antonino Nova MD #### BMPCMP, BMP, CBC #### [address] [place] [phone] Manager House: Merlin Charles MD Urea nitrogen [Mass/Vol] 10 mg/dL Normal 6-20 [facility] Comment on above: Performed By: #### P HEP, HIVCMB #### [facility] [address] [place] [address] Manager House: Antonino Nova MD #### BMPCMP, BMP, CBC #### [facility] [address] [place] [address] Manager House: Merlin Charles MD Comprehensive Metabolic Pane [facility] 09-13-2022 Albumin [Mass/Vol] 4.1 g/dL 3.5 - 5.2 g/dL [facility] Albumin/Globulin [Mass ratio] 2.1 {ratio} 1.0 - 2.5 [facility] ALP [Catalytic activity/Vol] 67 U/L 35 - 104 U/L [facility] ALT [Catalytic activity/Vol] 41 U/L High 5 - 33 U/L [facility] Anion gap [Moles/Vol] 6 mmol/L Low 9 - 17 mmol/L [facility] AST [Catalytic activity/Vol] 52 U/L High NINF - 32 U/L [facility] Bilirubin [Mass/Vol] 0.6 mg/dL 0.3 - 1 .2 mg/dL [facility] Calcium [Mass/Vol] 10.0 mg/dL 8.6 - 10. 4 mg/dL [facility] Chloride [Moles/Vol] 108 mmol/L High 98 - 10 7 mmol/L [facility] CO2 [Moles/Vol] 28 mmol/L 20 - 31 mmol/L [facility] Creatinine [Mass/Vol] 0.61 mg/dL 0.50 - 0.90 mg/dL [facility] GFR/1.73 sq M.predicted MDRD (S/P/Bld) [Vol rate/Area] - PINF [facility] Comment on above: These results are not [...] [Mass/Vol] 87 mg/dL 70 - 99 mg/dL [facility] Interpretation and review of laboratory results Abnormal [facility] Potassium [Moles/Vol] 5.0 mmol/L 3.7 - 5.3 mmol/L [facility] Protein [Mass/Vol] 6.1 g/dL Low 6.4 - 8.3 g/dL [facility] Sodium [Moles/Vol] 142 mmol/L 135 - 144 mmol/L [facility] Urea nitrogen [Mass/Vol] 10 mg/dL 6 - 20 mg/dL [facility] Urea nitrogen/Creatinine (Bld) [Mass ratio] 16 9 - 20 [facility] HCG Qualitative, Serumon hCG Qual Negative NEGATIVE [facility] Comment on above: Specimens with hCG l evels near the threshold of the test (25 mIU/mL) may give a negative or indeterminate result. In such cases, another test should be performed with a new specimen in 48-72 hours. If early is suspected clinically in this setting, correlation with quantitative serum b-hCG level is suggested. [facility] has confirmed the use of plasma for this test. This has not been cleared or approved by the U.S. Food and Drug Administration. The FDA has determined that such clearance is not necessary. [facility] HCG Screen, Bloodon 09-14-19 HCG Screen, Blood Negative Normal [facility] Comment on above: Result Comment: Spec imens with hCG levels near the threshold of the test (25 mIU/mL) may give a negative or indeterminate result. In such cases, another test should be performed with a new specimen in 48-72 hours. If early is suspected clinically in this setting, correlation with quantitative serum b-hCG level is suggested. [facility] has confirmed the use of plasma for this test. This has not been cleared or approved by the U.S. Food and Drug Administration. The FDA has determined that such clearance is not necessary. Performed By: #### P HEP, HIVCMB #### [address] [place] [address] Manager House: Antonino Nova MD #### BMPCMP, BMP, CBC #### [facility] [address] [place], [place] [phone] Manager House: Merlin Charles MD HCV RNA,Quant,PCRon 09-14-19 23 Source .PLASMA Normal [facility] Comment on above: Performed By: #### H CVQN #### [address] [address] Manager House: Antonino Nova MD [facility] [address] [place], [place] [phone] Manager House: Merlin Charles MD HIV Ag/Abon 09-13-2022 HIV Ag/Ab Non-Reactive Normal NR [facility] Comment on above: Result Comment: No l aboratory evidence of HIV infection. If acute HIV infection is suspected, consider testing for HIV-1 RNA. Performed By: #### P HEP, HIVCMB #### [address] [address] Manager House: Antonino Nova MD #### BMPCMP, BMP, CBC #### [address] [place], [place] [phone] Manager House: Merlin Charles MD HIV Screenon 09-13-2022 HIV 1+2 Ab+HIV1 p24 Ag IA Ql Non-Reactive NONREACTIVE [facility] Comment on above: No laboratory eviden ce of HIV infection. If acute HIV infection is suspected, consider testing for HIV-1 RNA. [facility] Hepatitis Acute Jonnie 09-13 Hep A Ab,IgM Non-Reactive Normal NR [facility] Comment on above: Performed By: #### P HEP, HIVCMB #### [address] [address] Manager House: Antonino Nova MD #### BMPCMP, BMP, CBC #### [address] [place] [address] Manager House: Merlin Charles MD Hep B Core Ab,IgM Non-Reactive Normal [facility] Comment on above: Performed By: #### P HEP, HIVCMB #### [address] [place] [address] Manager House: Antonino Nova MD #### BMPCMP, BMP, CBC #### [address] [place], [place] [phone] Manager House: Merlin Charles MD Hep B Surf Ag Non-Reactive Normal [facility] Comment on above: Performed By: #### P HEP, HIVCMB #### [address] [address] Manager House: Antonino Nova MD #### BMPCMP, BMP, CBC #### [address] [place], [place] 1384883 Manager House: Merlin Charles MD Hep C Ab Reactive Abnormal [facility] Comment on above: [...] Performed By: #### P HEP, HIVCMB #### [address] [address] Manager House: Antonino Nova MD #### BMPCMP, BMP, CBC #### [address] [place], [place] [phone] Manager House: Merlin Charles MD Hepatitis Panel, [facility] HAV IgM Ql (S) Non-Reactive NONREACTIVE [facility] HBV core IgM Ql (S) Non-Reactive NONREACTIVE [facility] HBV surface Ag IA Ql Non-Reactive NONREACTIVE [facility] HCV Ab IA Ql Reactive Abnormal NONREACTIVE [facility] Comment on above: The hepatitis C procedure [...] of laboratory results Abnormal [facility] Comp Metabolic Addonon 04-20 Albumin [Mass/Vol] 4.5 g/dL Normal 3.5-5.2 [facility] Comment on above: Performed By: #### P HEP, HIVCMB #### [address] [id number] Manager House: Antonino Nova MD #### BMPCMP, BMP, CBC #### [facility] [address] [place] [address] [place] [address] Manager House: Merlin Charles MD Albumin/Glob Ratio 2.0 Normal 1.0-2.5 [facility] Comment on above: Performed By: #### P HEP, HIVCMB #### [address] [phone] Manager House: Antonino Nova MD #### BMPCMP, BMP, CBC #### [address] [place] [address] Manager House: Merlin Charles MD Alkaline Phos 81 U/L Normal 35-104 [facility] Comment on above: Performed By: #### P HEP, HIVCMB #### [address] [phone] Manager House: Antonino Nova MD #### BMPCMP, BMP, CBC #### [facility] [address] [place], [place] [phone] Manager House: Merlin Charles MD ALT [Catalytic activity/Vol] 106 U/L High 5-33 [facility] Comment on above: Performed By: #### P HEP, HIVCMB #### [address] [phone] Manager House: Antonino Nova MD #### BMPCMP, BMP, CBC #### [address] [place], [place] [phone] Manager House: Merlin Charles MD AST [Catalytic activity/Vol] 77 U/L High <32 [facility] Comment on above: Performed By: #### P HEP, HIVCMB #### [address] [phone] Manager House: Antonino Nova MD #### BMPCMP, BMP, CBC #### [address] [place], [place] [phone] Manager House: Merlin Charles MD Bilirubin [Mass/Vol] 0.6 mg/dL Normal 0.3-1.2 [facility] Comment on above: Performed By: #### P HEP, HIVCMB #### [address] [phone] Manager House: Antonino Nova MD #### BMPCMP, BMP, CBC #### [address] [place], [place] 0895083 Manager House: Merlin Charles MD Protein [Mass/Vol] 6.7 g/dL Normal 6.4-8.3 [facility] Comment on above: Performed By: #### P HEP, HIVCMB #### [address] [phone] Manager House: Antonino Nova MD #### BMPCMP, BMP, CBC #### [address] [place], [place] [phone] Manager House: Merlin Charles MD HCV RNA,Quant,PCRon 04-20-20 HCV Quant 1,330,000 IU/mL Normal [facility] Comment on above: Performed By: #### P HEP, HIVCMB #### [address] [address] Manager House: Antonino Nova MD #### BMPCMP, BMP, CBC #### [facility] [address] [place], [place] [phone] Manager House: Merlin Charles MD HCV RNA,Quant Detected Abnormal NOTDET [facility] Comment on above: Result Comment: HCV RNA [...] Performed By: #### P HEP, HIVCMB #### [address] [address] Manager House: Antonino Nova MD #### BMPCMP, BMP, CBC #### [facility] [address] [place], [place] [phone] Manager House: Merlin Charles MD HCV,RNA Log 6.12 Log IU/mL [facility] Comment on above: Performed By: #### P HEP, HIVCMB #### [address] [address] Manager House: Antonino Nova MD #### BMPCMP, BMP, CBC #### [facility] [address] [place], [place] [phone] Manager House: Merlin Charles MD Basic Metabolic Profon 04-19 Anion gap [Moles/Vol] 7 mmol/L Low - [facility] Comment on above: Performed By: #### P HEP, HIVCMB #### [address] [id number] Manager House: Antonino Nova MD #### BMPCMP, BMP, CBC #### [facility] [address] [place] [address] Manager House: Merlin Charles MD BUN/CRE Ratio 20 Normal - [facility] Comment on above: Performed By: #### P HEP, HIVCMB #### [address] [phone] Manager House: Antonino Nova MD #### BMPCMP, BMP, CBC #### [facility] [address] [place], [place] [phone] Manager House: Merlin Charles MD Calcium [Mass/Vol] 9.9 mg/dL Normal 8.6-10.4 [facility] Comment on above: Performed By: #### P HEP, HIVCMB #### [address] [id number] Manager House: Antonino Nova MD #### BMPCMP, BMP, CBC #### [facility] [address] [place], [place] [phone] Manager House: Merlin Charles MD Chloride [Moles/Vol] 106 mmol/L Normal 98-107 [facility] Comment on above: Performed By: #### P HEP, HIVCMB #### [address] [address] Manager House: Antonino Nova MD #### BMPCMP, BMP, CBC #### [facility] [address] [place], [place] [phone] Manager House: Merlin Charles MD CO2 [Moles/Vol] 29 mmol/L Normal 20-31 [facility] Comment on above: Performed By: #### P HEP, HIVCMB #### [facility] [address] [place], [place] [phone] Manager House: Antonino Nova MD #### BMPCMP, BMP, CBC #### [facility] [address] [place], [place] [phone] Manager House: Merlin Charles MD Creatinine [Mass/Vol] 0.79 mg/dL Normal 0.50-0.[address] [facility] Comment on above: Performed By: #### P HEP, HIVCMB #### [address] [phone] Manager House: Antonino Nova MD #### BMPCMP, BMP, CBC #### [facility] [address] [place], [place] [phone] Manager House: Merlin Charles MD GFR/1.73 sq M.predicted among non-blacks MDRD (S/P/Bld) [Vol rate/Area] mL/min/{1.73_m2} Normal >60 [facility] Comment on above: Result Comment: Effective [...] Performed By: #### P HEP, HIVCMB #### [facility] [address] [place] [address] [phone] Manager House: Antonino Nova MD #### BMPCMP, BMP, CBC #### [address] [place], [place] [phone] Manager House: Merlin Charles MD Glucose [Mass/Vol] 98 mg/dL Normal 70-99 [facility] Comment on above: Performed By: #### P HEP, HIVCMB #### [address] [address] Manager House: Antonino Nova MD #### BMPCMP, BMP, CBC #### [address] [place], [place] [phone] Manager House: Merlin Charles MD Potassium [Moles/Vol] 4.6 mmol/L Normal 3.7-5.[address] [facility] Comment on above: Performed By: #### P HEP, HIVCMB #### [address] [phone] Manager House: Antonino Nova MD #### BMPCMP, BMP, CBC #### [address] [place], [place] [phone] Manager House: Merlin Charles MD Sodium [Moles/Vol] 142 mmol/L Normal 135-144 [facility] Comment on above: Performed By: #### P HEP, HIVCMB #### [address] [address] Manager House: Antonino Nova MD #### BMPCMP, BMP, CBC #### [address] [place], [place] [phone] Manager House: Merlin Charles MD Urea nitrogen [Mass/Vol] 16 mg/dL Normal 6-20 [facility] Comment on above: Performed By: #### P HEP, HIVCMB #### [address] [address] Manager House: Antonino Nova MD #### BMPCMP, BMP, CBC #### [address] [place], [place] [phone] Manager House: Merlin Charles MD CBCon 04-19-2022 Erythrocyte distribution width (RBC) [Ratio] 15.2 % High 11.8-14.4 [facility] Comment on above: Performed By: #### P HEP, HIVCMB #### [address] [phone] Manager House: Antonino Nova MD #### BMPCMP, BMP, CBC #### [address] [place], [place] [phone] Manager House: Merlin Charles MD Hematocrit (Bld) [Volume fraction] 41.4 % Normal 36.3-47.1 [facility] Comment on above: Performed By: #### P HEP, HIVCMB #### [address] [address] Manager House: Antonino Nova MD #### BMPCMP, BMP, CBC #### [address] [place] [address] Manager House: Merlin Charles MD Hemoglobin (Bld) [Mass/Vol] 13.3 g/dL Normal 11.9-15.1 [facility] Comment on above: Performed By: #### P HEP, HIVCMB #### [address] [address] Manager House: Antonino Nova MD #### BMPCMP, BMP, CBC #### [address] [place] [address] Manager House: Merlin Charles MD MCH (RBC) [Entitic mass] 33.8 pg High 25.2-33.5 [facility] Comment on above: Performed By: #### P HEP, HIVCMB #### [address] [address] Manager House: Antonino Nova MD #### BMPCMP, BMP, CBC #### [address] [place] [id number] Manager House: Merlin Charles MD MCHC (RBC) [Mass/Vol] 32.1 g/dL Normal 28.4-34.[address] [facility] Comment on above: Performed By: #### P HEP, HIVCMB #### [address] [id number] Manager House: Antonino Nova MD #### BMPCMP, BMP, CBC #### [address] [place] [phone] Manager House: Merlin Charles MD MCV (RBC) [Entitic vol] 105.3 fL High 82.6-102.9 [facility] Comment on above: Performed By: #### P HEP, HIVCMB #### [place] [address] Manager House: Antonino Nova MD #### BMPCMP, BMP, CBC #### [address] [place] [phone] Manager House: Merlin Charles MD NRBC Automated 0.0 per 100 WBC Normal 0.0 [facility] Comment on above: Performed By: #### P HEP, HIVCMB #### [place] [address] Manager House: Antonino Nova MD #### BMPCMP, BMP, CBC #### [address] [place] [phone] Manager House: Merlin Charles MD Platelet mean volume (Bld) [Entitic vol] 9.1 fL Normal 8.1-13.5 [facility] Comment on above: Performed By: #### P HEP, HIVCMB #### [address] [address] Manager House: Antonino Nova MD #### BMPCMP, BMP, CBC #### [address] [place], [place] [phone] Manager House: Merlin Charles MD Platelets (Bld) [#/Vol] 203 10*3/uL Normal 138-453 [facility] Comment on above: Performed By: #### P HEP, HIVCMB #### [address] [address] Manager House: Antonino Nova MD #### BMPCMP, BMP, CBC #### [address] [place] [phone] Manager House: Merlin Charles MD RBC (Bld) [#/Vol] 3.93 10*6/uL Low 3.95-5.11 [facility] Comment on above: Performed By: #### P HEP, HIVCMB #### [address] [address] Manager House: Antonino Nova MD #### BMPCMP, BMP, CBC #### [address] [place] [phone] Manager House: Merlin Charles MD WBC (Bld) [#/Vol] 4.1 10*3/uL Normal 3.5-11.3 [facility] Comment on above: Performed By: #### P HEP, HIVCMB #### [address] [address] Manager House: Antonino Nova MD #### BMPCMP, BMP, CBC #### [address] [place], [place] [phone] Manager House: Merlin Charles MD HCV RNA,Quant,PCRon 04-19-20 22 Source .PLASMA Normal [facility] Comment on above: Performed By: #### P HEP, HIVCMB #### [address] [address] Manager House: Antonino Nova MD #### BMPCMP, BMP, CBC #### [address] [place], [place] [phone] Manager House: Merlin Charles MD HIV Ag/Abon 04-19-2022 HIV Ag/Ab Non-Reactive Normal [facility] Comment on above: Result Comment: No l aboratory evidence of HIV infection. If acute HIV infection is suspected, consider testing for HIV-1 RNA. Performed By: #### P HEP, HIVCMB #### [address] [address] Manager House: Antonino Nova MD #### BMPCMP, BMP, CBC #### [address] [place] [address] Manager House: Merlin Charles MD Hepatitis Acute [facility] 04-19 Hep A Ab,IgM Non-Reactive Normal [facility] Comment on above: Performed By: #### P HEP, HIVCMB #### [address] [address] Manager House: Antonino Nova MD #### BMPCMP, BMP, CBC #### [address] [place] [address] Manager House: Merlin Charles MD Hep B Core Ab,IgM Non-Reactive Normal [facility] Comment on above: Performed By: #### P HEP, HIVCMB #### [address] [address] Manager House: Antonino Nova MD #### BMPCMP, BMP, CBC #### [address] [place] [address] Manager House: Merlin Charles MD Hep B Surf Ag Non-Reactive Normal [facility] Comment on above: Performed By: #### P HEP, HIVCMB #### [facility] [address] [place], [place] [phone] Manager House: Antonino Nova MD #### BMPCMP, BMP, CBC #### [facility] [address] [place] [address] [place] [address] Manager House: Merlin Charles MD Hep C Ab Reactive Abnormal [facility] Comment on above: [...] Performed By: #### P HEP, HIVCMB #### [place] [id number] [place], [place] [id number] Manager House: Antonino Nova MD #### BMPCMP, BMP, CBC #### [address] [place] [address] Manager House: Merlin Charles MD [facility] Hematocrit (Bld) [Volume fraction] 39.5 % 36.3 - 47.1 % [facility] Hemoglobin (Bld) [Mass/Vol] 12.6 g/dL 11.9 - 15.1 g/dL [facility] Interpretation and review of laboratory results Abnormal [facility] MCH (RBC) [Entitic mass] 32.6 pg 25.2 - 33.5 pg [facility] MCHC (RBC) [Mass/Vol] 31.9 g/dL 28.4 - 34.8 g/dL [facility] MCV (RBC) [Entitic vol] 102.3 fL 82.6 - 102.9 fL [facility] NRBC Automated 0.0 0.0 per 100 WBC [facility] Platelet distribution width (Bld) [Ratio] 14.9 % High 11.8 - 14.4 % [facility] Platelet mean volume (Bld) [Entitic vol] 9.7 fL 8.1 - 13.5 fL [facility] Platelets (Bld) [#/Vol] 175 10*3/uL [facility] RBC (Bld) [#/Vol] 3.86 10*6/uL Low 3.95 - 5.1 1 m/uL [facility] WBC (Bld) [#/Vol] 3.4 10*3/uL Low [facility] Comprehensive Metabolic Pane elvin 11-09-2021 Albumin [Mass/Vol] 4.7 g/dL 3.5 - 5.2 g/dL [facility] Albumin/Globulin [Mass ratio] 2.5 {ratio} [facility] ALP (Bld) [Catalytic activity/Vol] 76 U/L 35 - 104 U/L [facility] ALT [Catalytic activity/Vol] 50 U/L High 5 - 33 U/L [facility] Anion gap [Moles/Vol] 10 mmol/L 9 - 17 mmol/L [facility] AST [Catalytic activity/Vol] 40 U/L High <32 [facility] Bilirubin [Mass/Vol] 0.55 mg/dL 0.3 - 1 .2 mg/dL [facility] Calcium [Mass/Vol] 10.4 mg/dL 8.6 - 10. 4 mg/dL [facility] Chloride [Moles/Vol] 107 mmol/L 98 - 10 7 mmol/L [facility] CO2 [Moles/Vol] 25 mmol/L 20 - 31 mmol/L [facility] Creatinine [Mass/Vol] 0.72 mg/dL 0.50 - 0.90 mg/dL [facility] Free PSA/Total PSA [Mass fraction] 6.6 g/dL 6.4 - 8.3 g/dL [facility] GFR >60 >60 mL/min [facility] GFR Non- >60 >60 mL/min [facility] Glucose [Mass/Vol] 76 mg/dL 70 - 99 mg/dL [facility] Interpretation and review of laboratory results Abnormal [facility] Potassium [Moles/Vol] 3.9 mmol/L 3.7 - 5.3 mmol/L [facility] Sodium [Moles/Vol] 142 mmol/L 135 - 144 mmol/L [facility] Urea nitrogen (BldV) [Mass/Vol] 12 mg/dL 6 - 20 mg/dL [facility] Urea nitrogen/Creatinine (Bld) [Mass ratio] 17 [facility] HCG Qualitative, Serumon hCG Qual Negative NEGATIVE [facility] Comment on above: Specimens with hCG l evels near the threshold of the test (25 mIU/mL) may give a negative or indeterminate result. In such cases, another test should be performed with a new specimen in 48-72 hours. If early is suspected clinically in this setting, correlation with quantitative serum b-hCG level is suggested. [facility] has confirmed the use of plasma for this test. This has not been cleared or approved by the U.S. Food and Drug Administration. The FDA has determined that such clearance is not necessary. [facility] HIV Screenon 11-09-2021 HIV Ag/Ab Non-Reactive NONREACTIVE [facility] Comment on above: No laboratory eviden ce of HIV infection. If acute HIV infection is suspected, consider testing for HIV-1 RNA. [facility] Hepatitis Panel, Acuteon HAV IgM IA Qn (S) Non-Reactive NONREACTIVE [facility] Hep B Core Ab, IgM Non-Reactive NONREACTIVE [facility] Hepatitis B Surface Ag Non-Reactive NONREACTIVE [facility] Hepatitis C Ab Reactive Abnormal NONREACTIVE [facility] Comment on above: The hepatitis [...] of laboratory results Abnormal [facility] Laboratory - Chemistry and C hemistry - challengeon 11-09-2021 GFR/1.73 sq M.predicted MDRD (S/P/Bld) [Vol rate/Area] [facility] Comment on above: Average GFR for 20-2 9 years old: 116 mL/min/1.73sq m Chronic Kidney Disease: <60 mL/min/1.73sq m Kidney failure: <15 mL/min/1.73sq m eGFR calculated using average adult body mass. Additional eGFR calculator available at: http://www.Hemosphere/multiple_crcl_2012.htm Stage 1: Some kidney damage normal GFR Stage 2: Mild kidney damage GFR 60-89 Stage 3: Moderate kidney damage GFR 30-59 Stage 4: Severe kidney damage GFR 15-29 Stage 5: Severe kidney damage GFR <15 ESRD - chronic treatment by dialysis or transplant Microscopic Urinalysison - [facility] Bacteria, UA 4+ Abnormal None [facility] Epithelial Cells UA 2 TO 5 [facility] Interpretation and review of laboratory results Abnormal [facility] Mucus, UA 1+ Abnormal None [facility] RBC, UA 0 TO 2 [facility] WBC, UA 20 TO 50 [facility] Urinalysis with Reflex to Cu ltureon 10-27-2021 Bilirubin Urine SMALL Abnormal NEGATIVE [facility] Color, UA Yellow Yellow [facility] Glucose, Ur Negative NEGATIVE [facility] Interpretation and review of laboratory results Abnormal [facility] Ketones Ql (U) Negative NEGATIVE [facility] Leukocyte esterase Test strip Ql (U) MODERATE Abnormal NEGATIVE [facility] Nitrite, Urine Negative NEGATIVE [facility] pH, UA 6.5 [facility] Protein, UA TRACE Abnormal NEGATIVE [facility] Specific [place], UA 1.025 High [facility] Turbidity UA SLIGHTLY CLOUDY Abnormal Clear [facility] Urine Hgb Negative NEGATIVE [facility] Urobilinogen, Urine Normal Normal [facility] Microscopic Urinalysison - [facility] Bacteria, UA 1+ Abnormal None [facility] Epithelial Cells UA 5 TO 10 [facility] Interpretation and review of laboratory results Abnormal [facility] RBC, UA 0 TO 2 [facility] WBC, UA 5 TO 10 [facility] Urinalysis with Reflex to Cu ltureon 10-07-2021 Bilirubin Urine Negative NEGATIVE [facility] Color, UA Yellow Yellow [facility] Glucose, Ur Negative NEGATIVE [facility] Interpretation and review of laboratory results Abnormal [facility] Ketones Ql (U) Negative NEGATIVE [facility] Leukocyte esterase Test strip Ql (U) MODERATE Abnormal NEGATIVE [facility] Nitrite, Urine Negative NEGATIVE [facility] pH, UA 5.5 [facility] Protein, UA Negative NEGATIVE [facility] Specific [place], UA 1.025 High [facility] Turbidity UA Clear Clear [facility] Urine Hgb Negative NEGATIVE [facility] Urobilinogen, Urine Normal Normal [facility] SEROLOGYOrdered By: Suly Raman on 07-24-2021 HCG.beta subunit (U) [Moles/Vol] Negative Normal [facility] Tobacco Screening.on 022 Adult depression screening assessment Yes [facility] [employer] [place] 250 DO Work Phone: Tobacco use status CPHS a) Yes [facility] [place] 250 DO Work Phone: Tobacco Screening. Yes [facility] 250 DO Work Phone: Tobacco Screening. 3-Nearly every day [facility] [employer] 250 DO Work Phone: Tobacco Screening. 2-More than half the days [facility] 250 DO Work Phone: Tobacco Screening. 0-Not at all [facility] 250 DO Work Phone: [...] by: Janine DURON Date: 2021-07-04 02:[address] [facility] Vital Signs Date Time Vital Sign Value Performing Clinician Facility 07-06-2023 15:10-0500 Body temperature 98.42 [degF] Adolfo Hernandez [facility] 07-06-2023 15:10-0500 Diastolic blood pressure 69 mm[Hg] Adolfo Hernandez [facility] 07-06-2023 15:10-0500 Heart rate 102 /min Adolfo Hernandez [facility] 07-06-2023 15:10-0500 Respiratory rate 16 /min Adolfo Hernandez [facility] 07-06-2023 15:10-0500 SaO2% (BldA) [Mass fraction] 100 % Adolfo Hernandez [facility] 07-06-2023 15:10-0500 Systolic blood pressure 100 mm[Hg] Adolfo Hernandez [facility] 07-24-2021 17:25-0400 Body temperature 96.98 [degF] Zev Hamlin [facility] 07-24-2021 17:25-0400 Heart rate 66 /min Zev Boubacar [facility] 07-24-2021 17:25-0400 Respiratory rate 110 /min Zev Hamlin [facility] 07-24-2021 17:25-0400 SaO2% (BldA) [Mass fraction] 100 % Zev Hamlin [facility] 07-24-2021 17:25-0400 Systolic blood pressure 68 mm[Hg] Zev Hamlin [facility] 07-24-2021 17:20-0400 Body temperature 97.7 [degF] Zev Hamlin [facility] 07-24-2021 17:20-0400 Diastolic blood pressure 63 mm[Hg] Zev Hamlin [facility] 07-24-2021 17:20-0400 Heart rate 65 /min Zev Hamlin [facility] 07-24-2021 17:20-0400 Respiratory rate 11 /min Zev Hamlin [facility] 07-24-2021 17:20-0400 SaO2% (BldA) [Mass fraction] 100 % Zev Hamlin [facility] 07-24-2021 17:20-0400 Systolic blood pressure 106 mm[Hg] Zev Hamlin [facility] 07-24-2021 17:05-0400 Diastolic blood pressure 70 mm[Hg] Zev Hamlin [facility] 07-24-2021 17:05-0400 Heart rate 78 /min Zev Hamlin [facility] 07-24-2021 17:05-0400 Respiratory rate 11 /min Zev Hamlin [facility] 07-24-2021 17:05-0400 SaO2% (BldA) [Mass fraction] 100 % Zev Hamlin [facility] 07-24-2021 17:05-0400 Systolic blood pressure 109 mm[Hg] Zev Hamlin [facility] 07-24-2021 17:00-0400 Diastolic blood pressure 54 mm[Hg] Zev Hamlin [facility] 07-24-2021 16:53-0400 Body temperature 97.52 [degF] Zev Hamlin [facility] 07-24-2021 11:18-0400 Blood Pressure Location Zev Hamlin [facility] 07-24-2021 11:18-0400 BP/Pulse Patient Position Zev Hamlin [facility] 07-24-2021 11:18-0400 Mean blood pressure 78 mm[Hg] Zev Hamlin [facility] 07-24-2021 11:17-0400 Blood Pressure Location Zev Hamlin [facility] 07-24-2021 11:17-0400 Body temperature 98.24 [degF] Zev aHmlin [facility] 07-24-2021 11:17-0400 BP/Pulse Patient Position Zev Hamlin [facility] 07-24-2021 11:17-0400 Mean blood pressure 84 mm[Hg] Zev Hamlin [facility] 07-24-2021 11:17-0400 Respiratory rate 16 /min Zev Hamlin [facility] 07-24-2021 11:17-0400 Heart rate 72 /min Zev Hamlin [facility] 07-09-2021 09:07-0500 Diastolic blood pressure 62 mm[Hg] No PCP None [facility] 250 DO Work Phone: 07-09-2021 09:07-0500 Systolic blood pressure 102 mm[Hg] No PCP None [facility] 250 DO Work Phone: 07-09-2021 09:01-0500 Body height 160.02 cm No PCP None [facility] [place] 250 DO Work Phone: 07-09-2021 09:01-0500 Body mass index (BMI) [Ratio] 27.1 kg/m2 No PCP None [facility] 250 DO Work Phone: 07-09-2021 09:01-0500 Body surface area Derived from formula 1.73 m2 No PCP None [facility] [place] 250 DO Work Phone: 07-09-2021 09:01-0500 Body weight 69.4 kg No PCP None [facility] 250 DO Work Phone: 07-09-2021 09:01-0500 Diastolic blood pressure 62 mm[Hg] No PCP None [facility] 250 DO Work Phone: 07-09-2021 09:01-0500 Heart rate 59 /min No PCP None [facility] 250 DO Work Phone: 07-09-2021 09:01-0500 Systolic blood pressure 104 mm[Hg] No PCP None [facility] 250 DO Work Phone: 07-09-2021 09:01-0500 18 1 No PCP None [facility] 250 DO Work Phone: Comment on above: PHQ-9 TS Encounters Encounter Date Encounter Type Care Provider Facility Start: 10-24-2023 ambulatory [facility] Facility:[facility] Start: 10-23-2023 End: 10-23-2023 Emergency department patient visit NO PCP NO PCP [facility] Start: 09-08-2023 End: 09-08-2023 ambulatory NO PCP NO PCP [facility] Start: 09-08-2023 Encounter for genera l adult medical examination without abnormal findings NO NO PCP [facility] Start: 08-19-2023 End: 08-19-2023 Emergency department patient visit NO PCP NO PCP [facility] Start: 07-06-2023 End: 07-06-2023 Emergency department patient visit Adolfo Hernandez [facility] Start: 06-17-2023 End: 06-17-2023 ambulatory PB GARSIA [facility] Start: 02-16-2023 ambulatory [facility] Start: 01-19-2023 ambulatory [facility] Start: 01-06-2023 ambulatory [facility] Start: 12-10-2022 End: 12-11-2022 [facility] Start: 11-04-2022 ambulatory [facility] Start: 09-22-2022 End: 09-23-2022 ambulatory [facility] [...] day surgery center Zev Hamlin [facility] Start: 07-09-2021 Office consultation new/estab patient 60 min No PCP [facility] Work Phone: Start: 07-04-2021 End: 07-04-[address] RADHA MOE Facility: Start: 06-29-2021 End: 10-15-2021 Recurring Zev Hamlin [facility] Patient encounter status No PCP None [facility] 250 DO Work Phone: Procedures Date Procedure Procedure Detail Performing Clinician Start: 09-13-2022 Antibody hiv-1&hiv-2 single result Dez Jackie [employer] Work Phone: Start: 09-13-2022 Comprehensive metabo lic panel Dez Jackie [employer] Work Phone: Start: 11-09-2021 Antibody hiv-1&hiv-2 single result Dez Jackie [employer] Work Phone: Start: 11-09-2021 Comprehensive metabo lic panel Dez Jackie [employer] Work Phone: Start: 10-27-2021 Urinalysis microscop ic only Dez Jackie [employer] Work Phone: Start: 10-27-2021 Urnls dip stick/tabl et rgnt auto w/o microscopy Dez Jackie [employer] Work Phone: Start: 10-06-2021 Urinalysis microscop ic only Dez Jackie [employer] Work Phone: Start: 10-06-2021 Urnls dip stick/tabl et rgnt auto w/o microscopy Dez Jackie [employer] Work Phone: section No PCP None section [...] Influenza vaccination Flu vacc ine (Season Ended) [facility] Start: 01-06-2022 Screening for malign ant neoplasm of cervix [facility] Start: 12-31-2021 Influenza vaccination [facility] Start: 11-25-2021 FUV, Provider: Ruddy Garcia, Status: Pen, Time: 3:00 PM FUV, Provider: Ruddy Garcia, Status: Pen, Time: 3:00 PM [facility] [employer] DO Work Phone: Start: 07-15-2021 ECHO, Provider: DAJA CASTROI ULTRASOUND 01,[id number], Status: Pen, Time: 11:30 AM ECHO, Provider: PRATIMA CASTROI ULTRASOUND 01,[id number], Status: Pen, Time: 11:30 AM [facility] [employer] 250 DO Work Phone: Start: 07-15-2021 STRESS NUC, Provider : PRATIMA CASTROI NUCLEAR 01,[id number], Status: Pen, Time: 11:30 AM STRESS NUC, Provider: PRATIMA HHVI NUCLEAR 01,[id number], Status: Pen, Time: 11:30 AM [facility] [employer] 250 DO Work Phone: Start: 01-06-2013 Screening for malign ant neoplasm of cervix Pap smear [facility] [employer] Start: 01-06-2011 DTaP/Tdap/Td vaccine (1 - Tdap) DTaP/Tdap/Td vaccine (1 - Tdap) [facility] [employer] Start: 01-06-2010 Hepatitis C screening Hepatitis C sc reen [facility] Start: 2004 Depression Screen Depression Screen [facility] Start: 01-06-1998 Pneumococcal 0-64 ye ars Vaccine (1 - PCV) Pneumococcal 0-64 years Vaccine (1 - PCV) [facility] Start: 01-06-1997 COVID-19 Vaccine (1) COVID-19 Vaccin e (1) [facility] Start: 01-06-1993 Varicella vaccine (1 of 2 - 2-dose childhood series) Varicella vaccine (1 of 2 - 2-dose childhood series) [facility] Start: 1992 COVID-19 Vaccine (#1) COVID-19 Vacci ne (#1) [facility] End: 10-27-2021 Culture, Urine [facility] Work [facility]: Comment on above: Once for 1 Occurrenc es starting 10/27/2021 until 10/27/2021 End: 09-13-2022 Hepatitis C RNA, quantitative, PCR [facility] Work [facility]: Comment on above: Once for 1 Occurrenc es starting 09/13/2022 until 09/13/2022 Immunizations Immunization Date Immunization Notes Care Provider eSun marc 05-14-2012 influenza, seasonal, injectable Zev Boubacar [facility] Comment on above: Early/Late Reason: P atient Not Available/Off Unit 05-14-2012 measles, mumps and rubella virus vaccine Zev Hamlin [facility] Comment on above: Early/Late Reason: P atient Not Available/Off Unit Payers Date Payer Category Payer Unknown [id number] 2019 Unknown [id number] 1992 Unknown [id number] 1992 Unknown [id number] 1992 Unknown [id number] 1992 Unknown [id number] 1992 Unknown [id number] 1992 Unknown [id number] [id number] 1992 Unknown [id number] [id number] 1992 Unknown [id number] [id number] 1992 Unknown [id number] [id number] 1992 Unknown [id number] [id number] 1992 Unknown [id number] [id number] 1992 Unknown [id number] [id number] 1992 Unknown [id number] [id number] 1992 Unknown [id number] [id number] 1992 Unknown [id number] [id number] 1992 Unknown [id number] 1959 Unknown [id number] Unknown [facility] Social History Date Type Detail Facility Start: 08-14-2013 End: 10-13-2017 Consumes alcohol occasionally Consumes alcohol occasionally [place] [address] DO Work Phone: Comment on above: <1PPD; Start: 06-25-2021 Tobacco smoking status Light t obacco smoker (finding) [facility] Sex Assigned At Female [facility] Start: 08-14-2013 End: 10-13-2017 Tobacco smoking status NHIS Smokes tobacco daily [employer] Phone: History of tobacco use Cigarette Smoker [employer] Phone: Start: 08-14-2013 End: 10-13-2017 Tobacco use and exposure Smokeless tobacco non-user [employer] Phone: Start: 09-11-2018 Alcohol intake Current non-dr roll winder of alcohol (finding) [employer] Phone: Start: 1990 Sex Assigned At Not on file [employer] Phone: Functional Status Date Assessment Result Facility 07-06-2023 Functional Status N/A [facility] 07-09-2021 PHQ-9 [id number] Moder ately Severe (15-19) [facility] 250 DO Work Phone: Clinical Notes 07-24-2021 to 07-08-2023 Note Date & Type Note Facility 07-08-2023 Note Microbiology PROCEDURE: Cervical Culture [R1] SOURCE: Cerv BODY SITE: COLLECTED DATE/TIME: 07/06/2023 15:36 EST RECEIVED DATE/TIME: 07/06/2023 15:45 EST START DATE/TIME: 07/06/2023 15:45 EST FREE TEXT SOURCE: Louise JONAS, Bernadette Lockhart. Louise JONSA, Bernadette Adams FINAL REPORTS Final Report [] [...] Locations R1: This test was performed at: [facility], [address] [place] [address], [id number] , , [facility] Comment on above: Performed By: #### 1 [id number] #### [facility] [address] [place] [address] 07-06-2023 Hospital Discharge instructions Patient Education 07/06/2023 15:38:59 Viral Respiratory Infection, [id number] Viral Respiratory Infection A viral respiratory infection [...] at home: Managing pain and congestion Take wzjz-sky-tpnxsux and prescription medicines only as told by [...] cannot use soap and water, 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 ?Cover your mouth when you cough. [...] provider. Document Revised: 07/23/2021 Document Reviewed: 07/23/2021 [employer] Patient Education 2022 [employer] 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 [facility] Chief complaint Narrative - Reported DOUGLAS MYLES is being seen for a consultation for. POC abnormal ECG; Dr. Boubacar Franco [facility] [employer] [address] DO Work Phone: Chief complaint Narrative - Reported DOUGLAS MYLES is being seen for a consultation for. POC abnormal ECG; Dr. Hamlin [facility] Work Phone: Evaluation + Plan note No data available for this section [facility] History of Present illness Narrative Patient is seen for preoperative risk assessment. She apparently presented for tubal ligation and procedure was canceled because of abnormal EKG.She has been in and out of the emergency room multiple times. Recently she was in [place] at the [facility] and they also noted abnormal EKG [...] correspond with the surgeon in this regard. [facility] [employer] [address] DO Work Phone: History of Present illness Narrative Patient is seen for preoperative risk assessment. She apparently presented for tubal ligation and procedure was canceled because of abnormal EKG.She has been in and out of the emergency room multiple times. Recently she was in [place] at the hospital and they also noted [...] correspond with the surgeon in this regard. 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 [facility] [employer] provides no warranty or guarantee of the accuracy or completeness of information in this document.
[2023-10-26 07:43] LABS: Amphetamine Screen Urine NEGATIVE (NEGATIVE); Barbiturates Screen Urine NEGATIVE (NEGATIVE); Benzodiazepines Screen Urine NEGATIVE (NEGATIVE); Buprenorphine Screen Urine NEGATIVE (NEGATIVE); Cannabinoid Screen Urine NEGATIVE (NEGATIVE); Cocaine Screen Urine NEGATIVE (NEGATIVE); Methadone Screen Urine NEGATIVE (NEGATIVE); Methamphetamines Screen Urine NEGATIVE (NEGATIVE); Opiate Screen Urine NEGATIVE (NEGATIVE); Oxycodone Screen Urine NEGATIVE (NEGATIVE); Phencyclidine Screen Urine NEGATIVE (NEGATIVE); Tricyclic Antidepressant Urine NEGATIVE (NEGATIVE)
--- NOTE | 2023-10-26 08:16 | CM.NOTE ---
Rounds made with Dr. Mejia. Dr. Mejia attempts to review labs with Pauline who falls asleep during conversation. No discharge today.
[2023-10-26 08:43] LABS: HIV Antigen NON-REACTIVE (NONREACTIVE); Internal Control Within Normal Limits
[2023-10-26] MEDS: LACTULOSE 10 GM/15 ML UD CUP 20 GM PO (09:21)
[2023-10-26 09:39] LABS: Amphetamine Screen Urine NEGATIVE (NEGATIVE); Barbiturates Screen Urine NEGATIVE (NEGATIVE); Benzodiazepines Screen Urine NEGATIVE (NEGATIVE); Buprenorphine Screen Urine NEGATIVE (NEGATIVE); Cannabinoid Screen Urine NEGATIVE (NEGATIVE); Cocaine Screen Urine NEGATIVE (NEGATIVE); Methadone Screen Urine NEGATIVE (NEGATIVE); Methamphetamines Screen Urine NEGATIVE (NEGATIVE); Opiate Screen Urine NEGATIVE (NEGATIVE); Oxycodone Screen Urine NEGATIVE (NEGATIVE); Phencyclidine Screen Urine NEGATIVE (NEGATIVE); Tricyclic Antidepressant Urine NEGATIVE (NEGATIVE)
[2023-10-26] MEDS: ONDANSETRON PF 4 MG/2 ML VIAL IV (10:03)
--- NOTE | 2023-10-26 10:30 | P.DS_ITS ---
<Statement entered by Bahman Mejia MD - 10/26/23 19:07> This documentation has been reviewed and approved. Patient was seen and evaluated at the bedside, agree with input and findings from nurse practitioner. She will be discharged home and follow-up with my nurse practitioner in my office. And Dr. Atkins from hematology DS: Providers Provider Date of admission: 10/25/23 17:08 Primary care physician: Non-Staff PhysicianMD Consults: 10/25/23 16:47 Consult to Oncology Routine Consulting Provider: Argentina Atkins Reason for consultation: Pancytopenia Has provider been notified: Yes Discharging clinician: Maria Esther Gonsalez DS: Diagnosis Discharge Diagnosis (1) Intractable vomiting with nausea: (2) Hyperammonemia: (3) Hepatic encephalopathy: (4) UTI (urinary tract infection): (5) Acute liver failure: Qualifiers: Hepatic coma status: without hepatic coma Qualified Code(s): K72.00 - Acute and subacute hepatic failure without coma (6) Pancytopenia: (7) Macrocytic anemia with vitamin B12 deficiency: DS: Summary Hospital Course Hospital Course: The patient was admitted with recurrent intractable nausea and vomiting after being discharged 1 day prior to her readmission. A UTI was also noted on ED labs and this was treated with IVPB Rocephin. Pancytopenia was noted on the patient's previous admission and follow-up with Dr. Atkins had been scheduled as an outpatient. As Dr. Atkins was available during this admission, he was consulted to evaluate the patient's pancytopenia. Macrocytic anemia was diagnosed and the patient was initiated on IV vitamin B12 injections per Dr. Atkins. In addition the patient's liver failure persists as well and may be secondary to chronic hep C infection but the source of her transaminitis/hyperbilirubinemia is unclear at this time. (See documentation from her previous admission). A hep C antibody with cascade to PCR and genotype has been ordered and is pending at the time of discharge. An HIV screen was negative. Nursing noted an episode of acute agitation followed by hypersomnolence overnight with mild O2 desaturations during her hypersomnolence. She was treated with Narcan x 2. The patient did eventually awaken. A urine drug screen obtained at that time is negative for any substance and it is unclear if the patient awakened due to the Narcan or resolution of another condition. An ammonia level was obtained at that time which was elevated and we clinically suspect hepatic encephalopathy due to hyperammonemia. The patient was prescribed lactulose overnight but she initially refused lactulose dosing. After discussion on the day of discharge the patient agrees to take her lactulose as prescribed. At the time of exam on the day of discharge the patient's mentation was normal and she was fully awake and alert. A repeat UDS on the day of discharge was still negative for any substances. Her nausea and vomiting resolved prior to arrival on the floor after she received antiemetics and IV fluids in the ED. She was prescribed cefdinir on the day of discharge for her UTI to complete a 7-day course. She should follow-up with Dr. Atkins as an outpatient to further explore her pancytopenia. She is to obtain further Vit B12 injections at the infusion center daily x 3 days, then weekly x [address] Atkins's recommendation. We also recommend emergent referral to GI as soon as possible for her acute liver failure and further workup for recurrent hep C. She is being discharged home in stable condition. Time Spent with Patient Time attestation: Total time spent providing and/or coordinating discharge services: Time spent: greater than 30 minutes Specific discharge activities: Physical exam, discussion of discharge plan, questions answered. Exam Constitutional Vital Signs, click to edit/add: Last Vital Signs Temp 98.0 F 10/26/23 07:20 Pulse 59 L 10/26/23 07:20 Resp 14 10/26/23 09:16 BP 87/57 L 10/26/23 09:16 Pulse Ox 91 L 10/26/23 09:16 O2 Del Method Room Air 10/26/23 09:16 O2 Flow Rate 3 10/26/23 07:26 Common normals: no apparent distress, oriented x3 and alert General appearance: cooperative Orientation/consciousness: Yes awake HENMT Common normals: normocephalic and head/scalp atraumatic Face and sinus: other (mild jaundice) Eye Common normals: PERRL, EOMs intact bilaterally, conjunctivae normal and no scleral icterus Neck & C-Spine Common normals: no JVD Respiratory Common normals: normal respiratory effort, no use of accessory muscles and clear to auscultation bilaterally Effort & inspection: able to speak in complete sentences and symmetric chest movement Cardio Common normals: no JVD, regular rate, regular rhythm, S1 normal heart sound, S2 normal heart sound and peripheral pulses 2+ throughout Heart sounds: murmur (HSM 2/6) GI Common normals: Normal to inspection, nondistended, normoactive bowel sounds present, soft to palpation and non-tender Bladder/kidney exam: bladder normal to palpation Extremity Common normals: normal to inspection, full ROM, normal capillary refill and no pedal edema General: no clubbing and no cyanosis Neuro Common normals: moves all extremities, no focal motor deficits and no sensory deficits noted Speech: speech normal Psych Common normals: mental status grossly normal and activity/motor behavior normal DS: Data Data Completed and Pending Labs on day of discharge: Labs from last 24 hours 10/26/23 10/26/23 10/26/23 09:15 06:58 02:52 WBC 2.0 L RBC 1.91 L Hgb 7.6 L Hct 23.3 L* MCV 122.0 H MCH 39.8 H MCHC 32.6 Plt Count 73 L MPV 10.1 Neut % (Auto) 43.5 Lymph % (Auto) 51.0 Schleicher % (Auto) 4.0 Eos % (Auto) 0.0 L Baso % (Auto) 0.0 L Neut # (Auto) 0.9 L Lymph # (Auto) 1.0 L Schleicher # (Auto) 0.1 L Eos # (Auto) 0.0 Baso # (Auto) 0.0 Abs Immat Gran (auto) 0.03 Seg Neuts % (Manual) Band Neutrophils % Lymphocytes % (Manual) Monocytes % (Manual) Eosinophils % (Manual) Basophils % (Manual) Imm/Tot Granulo (auto) 1.5 H Neutrophils # (Manual) Band Neutrophils # Lymphocytes # (Manual) Monocytes # (Manual) Eosinophils # (Manual) Basophils # (Manual) Hypochromasia Poikilocytosis Anisocytosis Macrocytosis Ovalocytes PT 12.5 H INR 1.20 APTT 31.6 Puncture Site ABG pH ABG pCO2 ABG pO2 ABG HCO3 ABG O2 Saturation ABG Base Excess Cleve Test O2 Liters/Min Sodium 144 Potassium 4.0 Chloride 109 H Carbon Dioxide 29.5 Anion Gap 9.5 BUN 18.0 Creatinine 0.69 Est GFR ( Amer) >60 Est GFR (Non-Af Amer) >60 BUN/Creatinine Ratio 26.1 Glucose 87 Lactate Calcium 9.1 Total Bilirubin 2.2 H AST 88 H ALT 64 H Alkaline Phosphatase 69 Ammonia 69 H* Troponin I High Sens 22.1 Total Protein 5.5 L Albumin 3.1 L Globulin 2.4 Albumin/Globulin Ratio 1.3 Lipase Urine Color Urine Clarity Urine pH Ur Specific [place] Urine Protein Urine Glucose (UA) Urine Ketones Urine Occult Blood Urine Nitrite Urine Bilirubin Urine Urobilinogen Ur Leukocyte Esterase Urine RBC Urine WBC Ur Squamous Epith Cells Urine Crystals Amorphous Sediment Urine Bacteria Urine Casts Urine Mucus Ur Culture Indicated? Urine Opiates Screen Negative Negative Ur Buprenorphine Scrn Negative Negative Ur Oxycodone Screen Negative Negative Urine Methadone Screen Negative Negative Ur Barbiturates Screen Negative Negative U Tricyclic Antidepress Negative Negative Ur Phencyclidine Scrn Negative Negative Ur Amphetamines Screen Negative Negative U Methamphetamines Scrn Negative Negative U Benzodiazepines Scrn Negative Negative Urine Cocaine Screen Negative Negative U Cannabinoids Screen Negative Negative HIV 1&2 Antibody Non-reactive HIV P24 Antigen Non-reactive Blood Type A Positive Antibody Screen Negative 10/26/23 10/25/23 10/25/23 02:30 15:09 15:08 WBC 1.8 L RBC 2.07 L Hgb 8.6 L Hct 24.2 L MCV 116.9 H MCH 41.5 H MCHC 35.5 H Plt Count 88 L MPV 10.1 Neut % (Auto) Lymph % (Auto) Schleicher % (Auto) Eos % (Auto) Baso % (Auto) Neut # (Auto) Lymph # (Auto) Schleicher # (Auto) Eos # (Auto) Baso # (Auto) Abs Immat Gran (auto) Seg Neuts % (Manual) 68.0 Band Neutrophils % 2.0 Lymphocytes % (Manual) 26.0 Monocytes % (Manual) 4.0 Eosinophils % (Manual) 0.0 L Basophils % (Manual) 0.0 L Imm/Tot Granulo (auto) Neutrophils # (Manual) 1.22 L Band Neutrophils # 0.0 Lymphocytes # (Manual) 0.46 L Monocytes # (Manual) 0.07 L Eosinophils # (Manual) 0.00 Basophils # (Manual) 0.00 Hypochromasia 1+ Poikilocytosis 1+ Anisocytosis 3+ Macrocytosis 2+ Ovalocytes 1+ PT INR APTT Puncture Site R radial ABG pH 7.423 ABG pCO2 42.1 ABG pO2 79.6 L ABG HCO3 27.4 H ABG O2 Saturation 97.4 ABG Base Excess 3.0 H Cleve Test Positive O2 Liters/Min 3 Sodium 143 Potassium 4.4 Chloride 107 Carbon Dioxide 27.3 Anion Gap 13.1 BUN 17.0 Creatinine 0.69 Est GFR ( Amer) >60 Est GFR (Non-Af Amer) >60 BUN/Creatinine Ratio 24.6 Glucose 102 Lactate 1.0 Calcium 9.9 Total Bilirubin 4.3 H AST 128 H ALT 84 H Alkaline Phosphatase 82 Ammonia Troponin I High Sens Total Protein 6.4 Albumin 3.7 Globulin 2.7 Albumin/Globulin Ratio 1.4 Lipase 27.0 Urine Color Dk. orange Urine Clarity Clear Urine pH Color interference A Ur Specific [place] 1.020 Urine Protein Color interference A Urine Glucose (UA) Color interference A Urine Ketones Color interference A Urine Occult Blood Color interference A Urine Nitrite Color interference A Urine Bilirubin Color interference A Urine Urobilinogen Color interference A Ur Leukocyte Esterase Color interference A Urine RBC 2-5 A Urine WBC 5-10 A Ur Squamous Epith Cells Few A Urine Crystals Seen A Amorphous Sediment Few Urine Bacteria Large A Urine Casts None seen Urine Mucus Moderate A Ur Culture Indicated? Yes Urine Opiates Screen Negative Ur Buprenorphine Scrn Positive A Ur Oxycodone Screen Negative Urine Methadone Screen Negative Ur Barbiturates Screen Negative U Tricyclic Antidepress Negative Ur Phencyclidine Scrn Negative Ur Amphetamines Screen Negative U Methamphetamines Scrn Negative U Benzodiazepines Scrn Negative Urine Cocaine Screen Negative U Cannabinoids Screen Positive A HIV 1&2 Antibody HIV P24 Antigen Blood Type Antibody Screen Preliminary micro results at discharge 10/25/23 15:09 Urine Culture - Preliminary Urine,Clean Catch Imaging CT scan - head: Attestation: I have reviewed the pertinent imaging results. Radiologist's impression: IMPRESSION: 1. No acute intracranial abnormality. 2. Paranasal sinus disease as above, most prominent in the right maxillary sinus. Discharge Plan Discharge Disposition: Home, Self-Care Condition: Fair Discharge Medications: New cefdinir 300 mg capsule 300 mg PO BID 7 Days Qty: 14 0RF lactulose 10 gram/15 mL solution 20 g PO BID Qty: 237 0RF cyanocobalamin (vitamin B-12) 1,000 mcg/mL kit 1,000 mcg IM DAILY 3 Days Qty: 3 0RF cyanocobalamin (vitamin B-12) 1,000 mcg/mL kit 1,000 mcg IM .Weekly 28 Days Qty: 4 0RF Rx Instructions: Start one week after daily dosing is completed Continued trazodone 100 mg tablet 100 mg PO BEDTIME pantoprazole [Protonix] 40 mg tablet,delayed release (DR/EC) 40 mg PO DAILY Qty: 30 11RF buprenorphine-naloxone 8-2 mg film 1.5 film sublingual DAILY Activity: increase activity as tolerated Diet: advance to your usual diet Print Language: Bahamian Patient Instructions: Lactulose (By mouth), Acute Liver Failure (DC) Activity Restrictions/Additional Instructions: - Daily Vit B12 shots x 3 days, then weekly x 4 weeks at the [facility] - Scheduling will call to arrange appointments once insurance authorization has been obtained - Follow up with Dr Atkins as previously scheduled - PCP to consider repeat CBC, CMP, Ammonia levels within 1 week - Follow up with Gastroenterology regarding liver failure as soon as possible - PCP to refer Forms: Portal Instructions Follow Up Appointments: - PCP in 3-5 days - Dr Atkins as previously scheduled on 11/08/23 - Dr Stephens's office will be contacting patient for follow up [phone]
--- NOTE | 2023-10-26 10:48 | SWNOTE1 ---
SW met with pt to discuss history of drug use. Pt voices she has been sober for 4 months and she does not take Suboxone anymore either. SW attempted to converse with pt, but pt gave only one word answers and voiced she had to use the restroom. SW did ask about her support at home. She stated her fiance is at home with her. SW asked if her kids were in the home with her. She stated no and did not offer any further information. SW did ask pt if she attends any outpt counseling or meetings and she stated no. SW offered inpt/outpt rehab resources, but pt refused them at this time. SW to [facility] as needed.
[2023-10-26 11:04] LABS: Hematocrit 24.3 % (36.0-48.0); Hemoglobin 8.2 g/dL (12.0-16.0)
[2023-10-26] MEDS: CYANOCOBALAMIN 1,000 MCG/ML VIAL 1000 MCG IM (11:45)
--- NOTE | 2023-10-26 12:00 | PC.NURSE ---
Concerns were raised regarding patient and patient visitors based on the need to administer Narcan. Decision was made by administration and physician, Dr. Lawanda Mejia, to have no visitors at this time. Patient is currently on q1h neuro checks. Physician was at the bedside and attempted to awake patient for physician rounds. Set of VS obtained at this time patient was placed on oxygen. Repeat drug screen ordered and obtained. Patient was advised and it was discussed at to why there were concerns regarding her safety. Security was also called up to the bedside to search patient room, to see if any contraband was in patient room at this time. None found. Patient maykel came up to the room and he was advised of the no visitors at this time. Patient was more awake and alert, and participating in assessment at this time.
--- NOTE | 2023-10-27 15:50 | CM.DCFOLLOWU ---
Person spoke with: patient How are you feeling? fine How is your pain? none Did you understand your discharge instructions? yes Do you have any questions about your discharge instructions? no Were you given any prescriptions at discharge? yes Were you able to get your prescriptions filled? yes Do you understand how to take your medications as ordered? yes Do you have any questions about your follow up appointment and do you plan to keep your follow up appointment? no and follow up scheduled with PCP and follow ups reviewed Is there anything else that you would like to discuss? no Questions/Comments/Concerns/Other: no
[2023-10-31 13:10] LABS: HCV Ab Reactive (Non Reactive); Hepatitis C Genotype 3 (.)
== END 2023-10-26 13:19 | disposition home or self-care (01) ==
LOC: ER 17:20 → MS 17:30
PROVIDERS: Registered Nurse; Admitting Provider Family Medicine; Emergency Provider Emergency Medicine; Visit Provider Nurse Practitioner
DX: N39.0 Urinary tract infection, site not specified (principal); K72.00 Acute and subacute hepatic failure without coma; R11.2 Nausea with vomiting, unspecified; D61.818 Other pancytopenia; K76.82 Hepatic encephalopathy; D53.9 Nutritional anemia, unspecified; E53.8 Deficiency of other specified B group vitamins; B18.2 Chronic viral hepatitis C; E72.20 Disorder of urea cycle metabolism, unspecified; R79.89 Other specified abnormal findings of blood chemistry; F19.11 Other psychoactive substance abuse, in remission; F17.200 Nicotine dependence, unspecified, uncomplicated; B96.20 Unspecified Escherichia coli [E. coli] as the cause of diseases classified elsewhere
CPT/HCPCS: 36415; 36600; 70450; 71046; 80048; 80053; 80307; 80354; 81001; 82140; 82805; 83605; 83690; 84484; 85007; 85014; 85018; 85025; 85027; 85610; 85730; 86803; 86850; 86900; 86901; 87040; 87086; 87150; 87186; 87389; 87522; 93005; 94761; 96361; 96365; 96372; 96375; 96376; 99285; G0378; J0696; J1230; J2405; J3420

== ENCOUNTER 2023-11-30 07:19 | Outpatient (RCR) | payer OTHER, SELFPAY ==
[2023-11-02 09:00] VITALS: BP 94/56; PULSE 56; O2SAT 98
[2023-11-02] MEDS: CYANOCOBALAMIN 1,000 MCG/ML VIAL 1000 MCG IM (09:19)
[2023-11-03] MEDS: CYANOCOBALAMIN 1,000 MCG/ML VIAL 1000 MCG IM (08:42)
[2023-11-03 08:48] VITALS: BP 104/66; PULSE 78; TEMP 36.6; O2SAT 96
[2023-11-04] MEDS: CYANOCOBALAMIN 1,000 MCG/ML VIAL 1000 MCG IM (12:59)
[2023-11-08] MEDS: CYANOCOBALAMIN 1,000 MCG/ML VIAL 1000 MCG IM (14:44)
--- NOTE | 2023-11-08 14:46 | PC.NURSE ---
1400 arrival ambulatory for appt with dr Atkins 1440 Vit B12 IM rt deltoid, tolerated well. bandaid applied released amabulatory.
[2023-11-16] MEDS: CYANOCOBALAMIN 1,000 MCG/ML VIAL 1000 MCG IM (09:45)
[2023-11-16 09:53] VITALS: BP 91/58; PULSE 71; TEMP 36.6; O2SAT 96
[2023-11-25 09:25] VITALS: BP 109/60; PULSE 78; TEMP 36.3; O2SAT 95
[2023-11-25] MEDS: CYANOCOBALAMIN 1,000 MCG/ML VIAL 1000 MCG IM (09:35)
--- NOTE | 2023-11-25 09:54 | PC.NURSE ---
0925: Pt. to [facility] amb. for B12 injection. Seated in recliner. VSS. Medicated with Vitamin B12 as ordered, see documentation. Tolerated without c/o. Bandaid applied to site for scant bleeding. 0937: Pt. dc'd amb. to home.
== END 2023-11-30 23:59 | disposition home or self-care (01) ==
LOC: INF 07:19
PROVIDERS: Visit Provider Internal Medicine Hematology & Oncology
DX: K72.00 Acute and subacute hepatic failure without coma (principal); K72.10 Chronic hepatic failure without coma; B17.10 Acute hepatitis C without hepatic coma; R79.89 Other specified abnormal findings of blood chemistry; D61.818 Other pancytopenia; D51.9 Vitamin B12 deficiency anemia, unspecified; D69.6 Thrombocytopenia, unspecified
CPT/HCPCS: 96372; G0463; J3420

== ENCOUNTER 2023-12-02 08:39 | Outpatient (RCR) | payer OTHER, SELFPAY ==
[2023-12-02 08:42] VITALS: BP 122/78; PULSE 80; TEMP 36.6; O2SAT 97
[2023-12-02] MEDS: CYANOCOBALAMIN 1,000 MCG/ML VIAL 1000 MCG INJ (08:42)
--- NOTE | 2023-12-02 08:45 | PC.NURSE ---
0842: Pt. to [facility] amb. for injection. VSS. Medicated with Vitamin B12 IM as ordered. See documentation. No bleeding to site. Tolerated without c/o. 0848: Pt. d/c'd amb. to home with sig. other.
== END 2023-12-02 08:57 | disposition home or self-care (01) ==
LOC: HEMC 08:39
PROVIDERS: Visit Provider Internal Medicine Hematology & Oncology
DX: D51.8 Other vitamin B12 deficiency anemias (principal)
CPT/HCPCS: 96374; J3420

== ENCOUNTER 2024-04-11 14:42 | Emergency (ER) | payer OTHER, SELFPAY ==
[2024-04-11] VITALS (8 sets, daily range): BP systolic 90–99; BP diastolic 54–56; PULSE 54–78; TEMP 36.8; O2SAT 95; BMI 29.4
--- OUTSIDE RECORDS SUMMARY | 2024-04-11 14:55 | XMS_ITS | CCD ---
Author Organization [facility] DIRT SUPERVISOR [facility] Care Team Providers Care Trimmer Operator Three Knife Name Role Phone None, No PCP Unavailable Unavailable Unavailable Unavailable PAY, DR GARCIA Consulting Unavailable BRISEIDA HANKINS Attending Unavailable MAGEN MOJICA Primary Care Unavailable BRISEIDA HANKINS Admitting Unavailable BRISEIDA HANKINS Consulting Unavailable ANTONINA DURON Consulting Unavailable NONE, XXXX Primary Care Physician Unavailab le Unavailable Primary Care Provider Unavailabl e Unavailable Primary Care Provider Unavailabl e BO, HIPOLITO Referring Unavailable BO, HIPOLITO Referring Unavailable BO, HIPOLITO Referring Unavailable BO, HIPOLITO Referring Unavailable BO, HIPOLITO Referring Unavailable ELVIS, P. EDWAR Referring Unavailable [...] Unavailable ELVIS, P. EDWAR Primary Care Unavailable Zev Hamlin Attending Unavailable Zev Hamlin Admitting Unavailable Adolfo Hernandez Attending Unavailable NON STAFF Primary Care Provider UnavailMD Flip Paul Attending Provider NON STAFF Primary Care Unavailable Flip Morejon Attending Unavailable Jean-Pierre Imad Admitting Unavailable NO PCP, NO PCP Primary Care Unavailable FLAVIA WOODRUFF Attending Unavailab le NO PCP, NO PCP Primary Care Unavailable REF PROV, NOT IN SYSTEM Referring Unavaila PB Cummins Referring Unavailable SERVICES, [facility] Primary Care Unava ilable NO PCP, NO PCP Primary Care Unavailable NO PCP, NO PCP Primary Care Unavailable ELIAN RODRIGUEZ Attending Unavailable ISAIAS ADDISON Attending Unavailable MICHAEL HADDAD Primary Care Unavailable Medications Current Medications Medication Drug Class(es) Dates Sig (Normalized) Sig (Original) acetaminophen 325 mg / oxyCODONE hydrochloride 5 mg oral tablet (1 source) Opioid Agonist Start: 07-24-2021 End: 07-26-2021 Percocet 325 mg-5 mg Tab 1 tab(s), Oral, q6hr for pain for 2 day(s), 7 tab(s), Refill(s) 0, [id number], 161, cm, 06/25/21 13:03:00 EST, Height/Length Dosing, 72, kg, 06/25/21 13:03:00 EST, Weight Dosing Start Date: 07/24/21 Stop Date: 07/26/21 Status: Ordered albuterol 0.83 mg/ml inhalation solution (4 sources) beta2-Adrenergic Agonist Start: 06-25-2021 take 2.5 [...] by mouth 2 times daily 0 Active Sllzwmob-Opc-Cq-FA ( VITAMINS PO) (5 sources) Njiprmij-Ulu-Ql-FA ( VITAMINS PO) Take by mouth 0 Active Completed/Discontinued Medications Medication Drug Class(es) Dates Sig (Normalized) Sig (Original) No Reported Medications (2 sources) No Reported Medi cations Quantity: 0 Refills: 0 Ordered: 09-Jul-2021 DO Active Problems Active Problems Problem Classification Problem Date Documented Date Episodic/Chronic Abdominal pain (2 sources) Unspecified abdominal pain; Translations: [Unspecified abdominal pain] Onset: 12-10-2022 Episodic Anxiety disorders (7 sources) Anxiety disorder; Translations: [Anxiety disorder, unspecified] Onset: 07-24-2021 Chronic Contraceptive and procreative management (1 source) Sterilization requested; Translations: [Encounter for sterilization] Onset: 07-24-2021 Episodic E Codes: Fall (1 source) Fall Onset: 01-14-2024 E Codes: Natural/environment (1 source) Other and [...] [Chest pain, unspecified] Episodic Other circulatory disease (4 sources) Low blood pressure 06-25-2021 Episodic Other complications of (4 sources) Twin 02-06-2018 Episodic Other female genital disorders (2 sources) Other specified noninflammatory disorders of vagina; Translations: [Other specified noninflammatory disorders of vagina] Onset: 09-22-2022 Episodic Other female genital disorders (1 source) Noninflammatory disorder of the vagina; Translations: [Other specified noninflammatory disorders of vagina] Onset: 07-06-2023 Episodic Other lower respiratory disease (2 sources) Dyspnea; Translations: [Other respiratory abnormalities] Episodic Other non-traumatic joint disorders (3 sources) Pain in left shoulder; Translations: [PAIN IN LEFT SHOULDER] Onset: 07-04-2021 Episodic Other nutritional; endocrine; and metabolic disorders (2 sources) Overweight in adulthood with body mass index of 25 or more but less than 30; Translations: [Overweight] Episodic Other upper respiratory infections (1 source) Chronic sinusitis; Translations: [Chronic sinusitis, unspecified] Onset: 07-06-2023 Chronic Residual codes; unclassified (1 source) Pelvic organ finding; Translations: [Acquired absence of other genital organ(s)] Onset: 07-24-2021 Episodic Residual codes; unclassified (4 sources) Tobacco user 05-03-2012 Episodic Comment on above: Added secondary to s ocial history documentation. Sprains and strains (1 source) Strain of unspecified muscle, fascia and tendon at shoulder and upper arm level, left arm, initial encounter; Translations: [STRN UNS MSC F TND SHLDR UA LA INIT] Onset: 07-08-2021 Episodic Substance-related disorders (11 sources) Smoker; Translations: [Tobacco use disorder] Onset: 07-24-2021 Chronic Comment on above: <1PPD; Added secondary to d ocumentation in Social History. Syncope (6 sources) Cardiac syncope; Translations: [Syncope] Onset: 01-14-2024 07-13-2013 Episodic Unclassified (4 sources) History of clinical finding in subject 06-25-2021 Unclassified (2 sources) Tobacco use during ( Confirmed ) 05-12-2012 Unclassified (1 source) Alcohol use, unspecified, uncomplicated; Translations: [Alcohol use, unspecified, uncomplicated] Onset: 11-04-2022 Unclassified (2 sources) Tobacco use during 05-12-2012 Unclassified (1 source) SORE THROAT, CONGESTION Onset: 08-19-2023 Urinary tract infections (1 source) Acute cystitis without hematuria; Translations: [Acute cystitis without hematuria] Onset: 01-14-2024 Episodic Viral infection (1 source) Viral disease; Translations: [Other viral agents as the cause of diseases classified elsewhere] Onset: 07-06-2023 Episodic Past or Other Problems Problem Classification Problem Date Documented Da te Episodic/Chronic Deficiency and other anemia (2 sources) Nutritional anemia, unspecified; Translations: [Nutritional anemia, unspecified] Onset: 3 Episodic Early or threatened labor (5 sources) Finding of uterine contractions; Translations: [False labor, unspecified] Onset: 8 03-20-2018 Episodic Fluid and electrolyte disorders (1 source) Hypokalemia; Translations: [Hypokalemia] Onset: 4 Episodic Hepatitis (7 sources) Viral hepatitis C; Translations: [Unspecified viral hepatitis C without hepatic coma] Onset: 2 Episodic Immunizations and screening for infectious disease (2 sources) Other specified abnormal immunological findings in serum; Translations: [Other specified abnormal immunological findings in serum] Onset: 2 Episodic Nausea and vomiting (1 source) Vomiting Onset: 4 Episodic Other circulatory disease (1 source) Hypotension, unspecified; Translations: [Hypotension, unspecified] Onset: 4 Episodic Other gastrointestinal disorders (1 source) Diarrhea Onset: 4 Episodic Other and delivery including normal (5 sources) Multiple ; Translations: [Multiple gestation, unspecified, unspecified trimester] Onset: 8 03-06-2018 Episodic Other screening for suspected conditions (not mental disorders or infectious disease) (4 sources) Electrocardiogram abnormal; Translations: [Nonspecific abnormal electrocardiogram [ECG] [EKG]] Onset: 3 Episodic Other upper respiratory disease (1 source) Pain in throat Onset: 4 Episodic Substance-related disorders (6 sources) Opioid use, unspecified, uncomplicated; Translations: [Other stimulant use, unspecified, uncomplicated] Onset: 3 Episodic Unclassified (12 sources) Onset: 0 Resolved: 9 11-07-2014 Unclassified (1 source) Exposure to 2019 novel coronavirus; Translations: [Contact with and (suspected) exposure to COVID19] Unclassified (1 source) Alcohol use, unspecified, uncomplicated; Translations: [Alcohol use, unspecified, uncomplicated] Onset: 3 Results Test Name Value Interpretation Reference Range Facility CBC AND AUTO DIFFon 03-12-20 24 ABSOLUTE BASOPHIL 0.0 X10E9/L Normal 0.0-0.2 [facility] Comment on above: Performed By: #### C BRUCE, , CBCA, 1987-08, 3039-07 #### [facility] ([id number]) [address] [place] [address] 52168 ABSOLUTE NEUTROPHIL 2.8 X10E9/L Normal 1.5-6.6 [place] Comment on above: Performed By: #### C BRUCE, , CBCA, 1987-08, 3039-07 #### [facility] ([id number]) [address] [place] [address] 82984 Basophils/100 WBC (Bld) 0.0 % Normal [facility] Comment on above: Performed By: #### C BRUCE, , CBCA, 1987-08, 3039-07 #### [facility] ([id number]) [address] [place] [address] 76023 Eosinophils (Bld) [#/Vol] 0.0 10*3/uL Normal 0.0-0.4 [facility] Comment on above: Performed By: #### Ethan ABRRERA, , CBCA, 1987-08, 3039-07 #### [facility] ([id number]) [address] [place] [address] 29165 Eosinophils/100 WBC (Bld) 0.0 % Normal [facility] Comment on above: Performed By: #### Ethan BARRERA, , CBCA, 1987-08, 3039-07 #### [facility] ([id number]) [address] [place] [address] 90557 Erythrocyte distribution width (RBC) [Ratio] 16.6 % High 11.5-15.0 [facility] Comment on above: Performed By: #### C BRUCE, , CBCA, 1987-08, 3039-07 #### [facility] ([id number]) [address] [place] [address] Hematocrit (Bld) [Volume fraction] 38.7 % Normal 35-47 [facility] Comment on above: Performed By: #### C BRUCE, , CBCA, 1987-08, 3039-07 #### [facility] ([id number]) [address] [place] [address] 96565 Hemoglobin (Bld) [Mass/Vol] 13.1 g/dL Normal 11.7-15.5 [facility] Comment on above: Performed By: #### C BRUCE, , CBCA, 1987-08, 3039-07 #### [facility] ([id number]) [address] [place] [address] 19247 Lymphocytes (Bld) [#/Vol] 1.3 10*3/uL Normal 1.0-3.5 [facility] Comment on above: Performed By: #### Ethan BARRERA, , CBCA, 3039-07 #### [facility] ([id number]) [address] [place] [address] 09964 Lymphocytes/100 WBC (Bld) 30.7 % Normal [facility] Comment on above: Performed By: #### Ethan BARRERA, , CBCA, 3039-07 #### [facility] ([id number]) [address] [place] [address] 30513 MCH (RBC) [Entitic mass] 30.6 pg Normal 27-34 [facility] Comment on above: Performed By: #### C BRUCE, , CBCA, 3039-07 #### [facility] ([id number]) [address] [place] [address] 81675 MCHC (RBC) [Mass/Vol] 33.8 g/dL Normal 32-36 [facility] Comment on above: Performed By: #### C BRUCE, , CBCA, 1987-08, 3039-07 #### [facility] ([id number]) [address] [place] [address] 00593 MCV (RBC) [Entitic vol] 91 fL Normal 80-100 [facility] Comment on above: Performed By: #### C BRUCE, , CBCA, 1987-08, 3039-07 #### [facility] ([id number]) [address] [place] [address] 39275 Monocytes (Bld) [#/Vol] 0.2 10*3/uL Normal 0-0.9 [facility] Comment on above: Performed By: #### Ethan BARRERA, , CBCA, 1987-08, 3039-07 #### [facility] ([id number]) [address] [place] [address] 02887 Monocytes/100 WBC (Bld) 4.5 % Normal [facility] Comment on above: Performed By: #### Ethan BARRERA, , CBCA, 1987-08, 3039-07 #### [facility] ([id number]) [address] [place] [address] 95360 Neutrophils/100 WBC (Bld) 64.8 % Normal [facility] Comment on above: Performed By: #### Ethan BARRERA, , CBCA, 1987-08, 3039-07 #### [facility] ([id number]) [address] [place] [address] 37780 Platelet mean volume (Bld) [Entitic vol] 8.8 fL Normal 7-12 [facility] Comment on above: Performed By: #### Ethan BARRERA, , CBCA, 1987-08, 3039-07 #### [facility] ([id number]) [address] [place] [address] 80433 Platelets (Bld) [#/Vol] 146 10*3/uL Low 150-450 [facility] Comment on above: Performed By: #### C BRUCE, , CBCA, 1987-08, 3039-07 #### [facility] ([id number]) [address] [place] [address] 95193 RBC COUNT 4.28 X10E12/L Normal 3.80-5.20 [facility] Comment on above: Performed By: #### Ethan BARRERA, , CBCA, 1987-08, 3039-07 #### [facility] ([id number]) [address] [place] [address] 61217 WBC (Bld) [#/Vol] 4.3 10*3/uL Normal 4.0-11.0 [facility] Comment on above: Performed By: #### Ethan BARRERA, , CBCA, 1987-08, 3039-07 #### [facility] ([id number]) [address] [place] [address] 45330 COMPREHENSIVE METABOLIC PANE [facility] 03-12-2024 Albumin [Mass/Vol] 3.5 g/dL Normal 3.2-5.3 [facility] Comment on above: Performed By: #### C BRUCE, , CBCA, 1987-08, 3039-07 #### [facility] ([id number]) [address] [place] [address] 91683 ALP [Catalytic activity/Vol] 73 U/L Normal 39-130 [facility] Comment on above: Performed By: #### C BRUCE, , CBCA, 1987-08, 3039-07 #### [facility] ([id number]) [address] [place] [address] 03879 ALT [Catalytic activity/Vol] 56 U/L High 0-31 [facility] Comment on above: Performed By: #### Ethan BARRERA, , CBCA, 1987-08, 3039-07 #### [facility] ([id number]) [address] [place] [address] 26968 Anion gap [Moles/Vol] 5 mmol/L Normal 5-15 [facility] Comment on above: Performed By: #### C BRUCE, , CBCA, 1987-08, 3039-07 #### [facility] ([id number]) [address] [place] [address] 49178 AST [Catalytic activity/Vol] 50 U/L High 0-41 [facility] Comment on above: Performed By: #### C BRUCE, , CBCA, 1987-08, 3039-07 #### [facility] ([id number]) [address] [place] [address] 11317 Bilirubin [Mass/Vol] 0.5 mg/dL Normal 0.3-1.2 [place] Comment on above: Performed By: #### C BRUCE, , CBCA, 1987-08, 3039-07 #### [facility] ([id number]) [address] [place] [address] 40684 Calcium [Mass/Vol] 9.7 mg/dL Normal 8.5-10.5 [facility] Comment on above: Performed By: #### Ethan BARRERA, , CBCA, 1987-08, 3039-07 #### [facility] ([id number]) [address] [place] [address] 58496 Chloride [Moles/Vol] 109 mmol/L Normal 98-109 [place] Comment on above: Performed By: #### Ethan BARRERA, , CBCA, 1987-08, 3039-07 #### [facility] ([id number]) [address] [place] [address] 97860 CO2 [Moles/Vol] 25 mmol/L Normal 22-32 [facility] Comment on above: Performed By: #### C BRUCE, , CBCA, 1987-08, 3039-07 #### [facility] ([id number]) [address] [place] [address] 85343 Creatinine [Mass/Vol] 0.63 mg/dL Normal 0.40-1.00 [facility] Comment on above: Result Comment: METH OD TRACEABLE TO IDMS STANDARD Performed By: #### C BRUCE, , CBCA, 1987-08, 3039-07 #### [facility] ([id number]) [address] [place] [address] 98015 eGFR (CKD-EPI) NON-RACE DEPENDENT >90 Normal >59 [facility] Comment on above: Result Comment: Reported eGFR is based on the CKD-EPI 2020 equation that does not use a race coefficient. Performed By: #### C BRUCE, , CBCA, 1987-08, 3039-07 #### [facility] ([id number]) [address] [place] [address] 01089 Glucose [Mass/Vol] 103 mg/dL High 65-99 [facility] Comment on above: Performed By: #### C BRUCE, , CBCA, 1987-08, 3039-07 #### [facility] ([id number]) [address] [place] [address] 14781 Potassium [Moles/Vol] 4.4 mmol/L Normal 3.5-5.0 [facility] Comment on above: Performed By: #### C BRUCE, , CBCA, 1987-08, 3039-07 #### [facility] ([id number]) [address] [place] [address] 11456 Protein [Mass/Vol] 5.6 g/dL Low 6.0-8.0 [facility] Comment on above: Performed By: #### C BRUCE, , CBCA, 1987-08, 3039-07 #### [facility] ([id number]) [address] [place] [address] 94237 Sodium [Moles/Vol] 139 mmol/L Normal 134-146 [facility] Comment on above: Performed By: #### C BRUCE, , CBCA, 1987-08, 3039-07 #### [facility] ([id number]) [address] [place] [address] 04130 Urea nitrogen [Mass/Vol] 18 mg/dL Normal 5-23 [facility] Comment on above: Performed By: #### C BRUCE, , CBCA, 1987-08, 3039-07 #### [facility] ([id number]) [address] [place] [address] 53638 DRUG SCREEN, URINEon 024 AMPHETAMINE/METHAMP Negative Normal NEG [facility] Comment on above: Result Comment: AMPH /METH screening cut off = 1000 ng/mL Performed By: #### C BRUCE, , CBCA, 1987-08, 3039-07 #### [facility] ([id number]) [address] [place] [address] 39824 BARBITURATES Negative Normal NEG [facility] Comment on above: Result Comment: Ana iturates screening cut off value = 200 ng/mL Performed By: #### Ethan BARRERA, , CBCA, 1987-08, 3039-07 #### [facility] ([id number]) [address] [place] [address] 45017 BENZODIAZEPINES Negative Normal NEG [facility] Comment on above: Result Comment: Jeramie odiazepines screening cut off value = 200 ng/mL Performed By: #### C BRUCE, , CBCA, 1987-08, 3039-07 #### [facility] ([id number]) [address] [place] [address] 64068 CANNABINOIDS Positive Abnormal NEG [facility] Comment on above: Result Comment: Conf irmation available upon request. Cannabinoids/THC screening cut off value = 50 ng/mL Performed By: #### C BRUCE, , CBCA, 1987-08, 3039-07 #### [facility] ([id number]) [address] [place] [address] 96716 COCAINE METABOLITE Negative Normal NEG [facility] Comment on above: Result Comment: Coca ine screening cut off value = 300 ng/mL Performed By: #### C BRUCE, , CBCA, 1987-08, 3039-07 #### [facility] ([id number]) [address] [place] [address] 31823 ECSTASY Negative Normal NEG [facility] Comment on above: Result Comment: Ecst asy screening cut off value = 500 ng/mL This report is intended for use in clinical monitoring or management of patients. Performed By: #### C BRUCE, , CBCA, 1987-08, 3039-07 #### [facility] ([id number]) [address] [place] [address] 37877 METHADONE Negative Normal NEG [facility] Comment on above: Result Comment: Meth adone screening cut off value = 300 ng/mL. Performed By: #### C BRUCE, , CBCA, 1987-08, 3039-07 #### [facility] ([id number]) [address] [place] [address] 45059 OPIATES Negative Normal NEG [facility] Comment on above: Result Comment: Opia chalo screening cut off value = 300 ng/mL NOTE: This test is used for the detection of codeine, hydrocodone (>1000 ng/mL), morphine and hydromorphone (>900 ng/mL) in urine. Performed By: #### C BRUCE, , CBCA, 1987-08, 3039-07 #### [facility] ([id number]) [address] [place] [address] 90678 OXYCODONE Negative Normal NEG [facility] Comment on above: Result Comment: Oxyc odone screening cut off value = 300 ng/mL NOTE: This test is used for the detection of oxycodone and oxymorphone in urine. Performed By: #### C BRUCE, , CBCA, 1987-08, 3039-07 #### [facility] ([id number]) [address] [place] [address] 55193 PHENCYCLIDINE Negative Normal NEG [facility] Comment on above: Result Comment: Phen cyclidine screening cut off value = 25 ng/mL Performed By: #### C BRUCE, , CBCA, 1987-08, 3039-07 #### [facility] ([id number]) [address] [place] [address] 80556 ETHANOLon 03-12-2024 Ethanol [Mass/Vol] mg/dL Normal 0.00-0.08 [facility] Comment on above: Result Comment: This report is intended for use in clinical monitoring or management of patients. Performed By: #### C BRUCE, , CBCA, 1987-08, 3039-07 #### [facility] ([id number]) [address] [place] [address] 87807 HCG ( test) Ql (U)o n 03-12-2024 Beta HCG ( test) Ql (U) Negative Normal NEG [facility] Comment on above: Performed By: #### C BRUCE, , CBCA, 1987-08, 3039-07 #### [facility] ([id number]) [address] [place] [address] 90669 URN MACROSCOPIC NURon 2023 BILIRUBIN ERA Negative Normal NEG [facility] Comment on above: Performed By: #### C BRUCE, , CBCA, 1987-08, 3039-07 #### [facility] ([id number]) [address] [place] [address] 48859 BLOOD/HGB ERA Negative Normal NEG [facility] Comment on above: Performed By: #### C BRUCE, , CBCA, 1987-08, 3039-07 #### [facility] ([id number]) [address] [place] [address] 11676 GLUCOSE ERA Negative Normal NEG [facility] Comment on above: Performed By: #### C BRUCE, , CBCA, 1987-08, 3039-07 #### [facility] ([id number]) [address] [place] [address] [place] [address] KETONES ERA Negative Normal NEG [facility] Comment on above: Performed By: #### C BRUCE, , CBCA, 1987-08, 3039-07 #### [facility] ([id number]) [address] [place] [address] [place] [address] LEUKOCYTE ESTERASE ERA Negative Normal NEG [facility] Comment on above: Performed By: #### C BRUCE, , CBCA, 1987-08, 3039-07 #### [facility] ([id number]) [address] [place] [address] [place] [address] NITRITE ERA Positive Abnormal NEG [facility] Comment on above: Performed By: #### C BRUCE, , CBCA, 1987-08, 3039-07 #### [facility] ([id number]) [address] [place] [address] [place] [address] PH ERA 7.5 Normal 5.0-8.5 [facility] Comment on above: Performed By: #### C BRUCE, , CBCA, 1987-08, 3039-07 #### [facility] ([id number]) [address] [place] [address] [place] [address] PROTEIN ERA Negative Normal NEG [facility] Comment on above: Performed By: #### C BRUCE, , CBCA, 1987-08, 3039-07 #### [facility] ([id number]) [address] [place] [address] SPECIFIC GRAVITY ERA 1.020 Normal 1.003-1.035 [facility] Comment on above: Performed By: #### [place], [address]-4, CBCA, 1987-08, 3039-07 #### [facility] ([id number]) [address] [place] [address] 54205 UROBILINOGEN ERA 2.0 eu/dL High <1.1 [facility] Comment on above: Performed By: #### C MP, , CBCA, 1987-08, 3039-07 #### [facility] ([id number]) [address] [place] [address] 68483 Hep C Ab wRfx to Qnt PCRon - HCV Log10 6.708 Normal . [facility] Comment on above: Result Comment: Resu lt Units: log10 IU/mL Performed By: #### H AABT, HCV RX PCR, HBSAG, HBCAB, HCV RNA DIAG, HBSAB #### [facility] , Hepatitis C Quantitation [id number] Normal . [facility] Comment on above: Performed By: #### H AABT, HCV RX PCR, HBSAG, HBCAB, HCV RNA DIAG, HBSAB #### [facility] , Hepatitis C Virus Antibody Reactive Critically abnormal Non Reactive [facility] Comment on above: Performed By: #### H AABT, HCV RX PCR, HBSAG, HBCAB, HCV RNA DIAG, HBSAB #### [facility] , Interpretation Comment Normal . [facility] Comment on above: Result Comment: Posi tive HCV antibody screen with the presence of HCV RNA is consistent with active infection. Performed at: [facility] [address] [id number] Medication Specialist: Jeff Pitt PhD, Phone: [phone] Performed at: [facility] [address] [id number] Medication Specialist: Vernon Church MD, Phone: [phone] Performed By: #### H AABT, HCV RX PCR, HBSAG, HBCAB, HCV RNA DIAG, HBSAB #### [facility] , Hep C RNA Diagnosison 2023 HCV RNA log10, Confirm 6.805 Normal . e [facility] Comment on above: Result Comment: Resu lt Units: log10 IU/mL PERFORMED BY: [place] [address] [place] [address] PATHOLOGIST CHURN TENDER PALMIRA GLEZ M.D. Performed By: #### H AABT, HCV RX PCR, HBSAG, HBCAB, HCV RNA DIAG, HBSAB #### [facility] , HCV RNA, Quant, Confirm [id number] Normal . [facility] Comment on above: Result Comment: HCV RNA detected HCV RNA viral loads >/= 25 IU/mL indicate current HCV infection. Performed By: #### H AABT, HCV RX PCR, HBSAG, HBCAB, HCV RNA DIAG, HBSAB #### [facility] , HCV RNA, Quantitation See Final Results Normal . [facility] Comment on above: Performed By: #### H AABT, HCV RX PCR, HBSAG, HBCAB, HCV RNA DIAG, HBSAB #### [facility] , Test Information: Comment Normal . [facility] Comment on above: Result Comment: The quantitative range of this assay is 15 IU/mL to 100 million IU/mL. Performed at: [facility] [address] [id number] Medication Specialist: Vernon Church MD, Phone: [phone] Performed By: #### H AABT, HCV RX PCR, HBSAG, HBCAB, HCV RNA DIAG, HBSAB #### [facility] , Result Comment: The quantitative range of this assay is 15 IU/mL to 100 million IU/mL. Hepatitis A Antibody Totalon 02-21-2024 Hepatitis A Antibody Total Negative Normal Negative [facility] Comment on above: Result Comment: Comm ent: The HAV total antibody assay detects both IgG and IgM but does not differentiate between them. A negative result suggests susceptibility to infection. A positive result could be due to vaccination, previously resolved infection or active infection. Testing for HAV IgM should be performed if active HAV infection is suspected. [facility] profiles that will automatically reflex positive HAV total antibody results to IgM (e.g., panel #[id number] HAV Antibody w/ Rfx). Performed at: [address] [id number] Medication Specialist: Jeff Pitt PhD, Phone: [phone] Performed By: #### H AABT, HCV RX PCR, HBSAG, HBCAB, HCV RNA DIAG, HBSAB #### [facility] , Hepatitis B Core Antibodyon 02-21-2024 Hepatitis B Core Antibody Positive Critically abnormal Negative [facility] Comment on above: Performed By: #### H AABT, HCV RX PCR, HBSAG, HBCAB, HCV RNA DIAG, HBSAB #### [facility] , Hepatitis B Surface Antibody on 02-21-2024 Hepatitis B Surface Antibody Reactive Normal . [facility] Comment on above: Result Comment: Non Reactive: Not immune to HBV infection. Equivocal: Unable to determine if anti-HBs is present at levels consistent with immunity. Reactive: Anti-HBs concentration detected at greater than 10 mIU/mL. Individual is considered to be immune to infection with HBV. Performed By: #### H AABT, HCV RX PCR, HBSAG, HBCAB, HCV RNA DIAG, HBSAB #### [facility] , Hepatitis B Surface Antigeno n 02-21-2024 HBsAg Screen Negative Normal Negative [facility] Comment on above: Result Comment: PERF ORMED BY: [facility] [address] [place] [address] PATHOLOGIST CHURN TENDER PALMIRA GLEZ M.D. Performed By: #### H AABT, HCV RX PCR, HBSAG, HBCAB, HCV RNA DIAG, HBSAB #### [facility] , PAP [id number] 02-15-2024 Cytology report Cyto stain Doc (Cvx/Vag) Note Invalid Interpretation Code [facility] Comment on above: Result Comment: TEST S RESULT FLAG UNITS REF RANGE LAB Clinician Provided Cytology Information Source.............Cervix No. of containers..01 ThinPrep Vial DIAGNOSIS: 01 NEGATIVE FOR INTRAEPITHELIAL LESION OR MALIGNANCY. Specimen adequacy: 01 Satisfactory for evaluation. Endocervical and/or squamous metaplastic cells (endocervical component) are present. Performed by: Colette Clark, Diesel Service Technician ([facility]) . 01 Note: Note 01 The Pap smear is a screening test designed to aid in the detection of premalignant and malignant conditions of the uterine cervix. It is not a diagnostic procedure and should not be used as the sole means of detecting cervical cancer. Both false-positive and false-negative reports do occur. Test Methodology: Note 01 This liquid based ThinPrep(R) pap test was screened with the use of an image guided system. FLAG LEGEND: L-Low Normal,H-High Normal,LL-Alert Low,HH-Alert High <-Panic Low,>-Panic High,A-Abnormal,AA-Critical Abnormal Performed at: 01 WB [facility] [address] [address] Ragini Lundberg MD, Performed By: #### 3 [id number] #### [facility] [address] [place] [address] HPV 16+18+31+33+35+39+45+5 1+52+56+58+59+66+68 DNA Probe+sig amp Ql (Cvx) Negative Invalid Interpretation Code Negative [facility] Comment on above: Result Comment: This nucleic acid amplification test detects fourteen high-risk HPV types (16,18,31,33,35,39,45,51,52,56,58,59,66,68) without differentiation. Performed at: WB [facility] [place] [address] [place], [place] [id number] MD Tamika Eid Performed at: =G [facility] [address] [id number] MD Tamika Eid Performed By: #### 3 [id number] #### [facility] [address] [place] [address] PAP [id number] 02-10-2024 Collection Technique BRUSH-SPATULA Normal [facility] Comment on above: Performed By: #### 3 [id number] #### [facility] [address] [place] [address] Gynecological Body Site CERVIX Normal [facility] Comment on above: Performed By: #### 3 [id number] #### [facility] [address] [place] [address] CBC AND AUTO DIFFon 01-14-20 24 ABSOLUTE BASOPHIL 0.0 X10E9/L Normal 0.0-0.2 [facility] Comment on above: Performed By: #### A HP #### [facility] ([id number]) [address] [place] [address], [address] [place] [address] #### 55706-4 #### [facility] ([id number]) [address] [place] [address], [place] [address] ABSOLUTE NEUTROPHIL 1.5 X10E9/L Normal 1.5-6.6 [place] Comment on above: Performed By: #### A HP #### [facility] ([id number]) [address] [place] [address], [address] [place] [address] #### 78722-7 #### [facility] ([id number]) [address] [place] [address] Basophils/100 WBC (Bld) 0.0 % Normal [facility] Comment on above: Performed By: #### A HP #### [facility] ([id number]) [address] [facility] [address] [place] [address] #### 21522-1 #### [facility] ([id number]) [address] [place] [address] Eosinophils (Bld) [#/Vol] 0.0 10*3/uL Normal 0.0-0.4 [facility] Comment on above: Performed By: #### A HP #### [facility] ([id number]) [address] [facility] [address] [place] [address] #### 45655-1 #### [facility] ([id number]) [address] [place] [address] Eosinophils/100 WBC (Bld) 0.0 % Normal [facility] Comment on above: Performed By: #### A HP #### [facility] ([id number]) [address] [facility] [address] [place] [address] #### 93625-7 #### [facility] ([id number]) [address] [place] [address] Erythrocyte distribution width (RBC) [Ratio] 14.1 % Normal 11.5-15.0 [facility] Comment on above: Performed By: #### A HP #### [facility] ([id number]) [address] [facility] [address] [place] [address] #### 26948-3 #### [facility] ([id number]) [address] [place] [address] Hematocrit (Bld) [Volume fraction] 37.3 % Normal 35-47 [facility] Comment on above: Performed By: #### A HP #### [facility] ([id number]) [address] [place] [address], [address] [address] #### 23235-3 #### [facility] ([id number]) [address] [place] [address] Hemoglobin (Bld) [Mass/Vol] 12.6 g/dL Normal 11.7-15.5 [facility] Comment on above: Performed By: #### A HP #### [facility] ([id number]) [address] [place] [address] #### 56390-9 #### [facility] ([id number]) [address] [place] [address] Lymphocytes (Bld) [#/Vol] 1.2 10*3/uL Normal 1.0-3.5 [facility] Comment on above: Performed By: #### A HP #### [facility] ([id number]) [address] [place] [address] #### 59865-8 #### [facility] ([id number]) [address] [place] [address] Lymphocytes/100 WBC (Bld) 41.9 % Normal [facility] Comment on above: Performed By: #### A HP #### [facility] ([id number]) [address] [place] [address] #### 34245-3 #### [facility] ([id number]) [address] [place] [address] MCH (RBC) [Entitic mass] 30.1 pg Normal 27-34 [facility] Comment on above: Performed By: #### A HP #### [facility] ([id number]) [address], [address] [place] [address] #### 17618-0 #### [facility] ([id number]) [address] [place] [address] MCHC (RBC) [Mass/Vol] 33.7 g/dL Normal 32-36 [facility] Comment on above: Performed By: #### A HP #### [facility] ([id number]) [address], [address] [place] [address] #### 67936-8 #### [facility] ([id number]) [address] [place] [address] MCV (RBC) [Entitic vol] 90 fL Normal 80-100 [facility] Comment on above: Performed By: #### A #### [facility] ([id number]) [address] [facility], [address] [place] [address] #### 61518-4 #### [facility] ([id number]) [address] [place] [address] Monocytes (Bld) [#/Vol] 0.2 10*3/uL Normal 0-0.9 [facility] Comment on above: Performed By: #### A HP #### [facility] ([id number]) [address], [address] [place] [address] #### 78957-0 #### [facility] ([id number]) [address] [place] [address]68 Monocytes/100 WBC (Bld) 6.2 % Normal [facility] Comment on above: Performed By: #### A HP #### [facility] ([id number]) [address], [address] [place] [address] #### 55834-8 #### [facility] ([id number]) [address] [place] [address] Neutrophils/100 WBC (Bld) 51.9 % Normal [facility] Comment on above: Performed By: #### A HP #### [facility] ([id number]) [address] [address] #### 00640-4 #### [facility] ([id number]) [address] [place] [address] Platelet mean volume (Bld) [Entitic vol] 8.7 fL Normal 7-12 [facility] Comment on above: Performed By: #### A HP #### [facility] ([id number]) [address] [address] #### 64002-9 #### [facility] ([id number]) [address] [place] [address] Platelets (Bld) [#/Vol] 106 10*3/uL Low 150-450 [facility] Comment on above: Performed By: #### A HP #### [facility] ([id number]) [address] [address] #### 75626-2 #### [facility] ([id number]) [address] [place] [address] RBC COUNT 4.17 X10E12/L Normal 3.80-5.20 [facility] Comment on above: Performed By: #### A HP #### [facility] ([id number]) [address] [address] #### 53046-8 #### [facility] ([id number]) [address] [place] [address] WBC (Bld) [#/Vol] 2.9 10*3/uL Low 4.0-11.0 [facility] Comment on above: Performed By: #### A HP #### [facility] ([id number]) [address], [address] [place] [address] #### 62525-4 #### [facility] ([id number]) [address] [place] [address] COMPREHENSIVE METABOLIC PANE Elvin 01-14-2024 Albumin [Mass/Vol] 3.2 g/dL Normal 3.2-5.3 [facility] Comment on above: Performed By: #### A HP #### [facility] ([id number]) [address], [address] [place] [address] #### 62637-4 #### [facility] ([id number]) [address] [place] [address] ALP [Catalytic activity/Vol] 72 U/L Normal 39-130 [facility] Comment on above: Performed By: #### A HP #### [facility] ([id number]) [address], [address] [place] [address] #### 43731-2 #### [facility] ([id number]) [address] [place] [address] ALT [Catalytic activity/Vol] 64 U/L High 0-31 [facility] Comment on above: Performed By: #### A HP #### [facility] ([id number]) [address], [address] [place] [address] #### 49678-8 #### [facility] ([id number]) [address] [place] [address] Anion gap [Moles/Vol] 3 mmol/L Low 5-15 [facility] Comment on above: Performed By: #### A HP #### [facility] ([id number]) [address] [facility], [address] [place] [address] #### 69769-8 #### [facility] ([id number]) [address] [place] [address] AST [Catalytic activity/Vol] 52 U/L High 0-41 [facility] Comment on above: Performed By: #### A HP #### [facility] ([id number]) [address] [facility], [address] [place] [address] #### 46511-9 #### [facility] ([id number]) [address] [place] [address] Bilirubin [Mass/Vol] 0.5 mg/dL Normal 0.3-1.2 [place] Comment on above: Performed By: #### A HP #### [facility] ([id number]) [address] [facility], [address] [place] [address] #### 79698-5 #### [facility] ([id number]) [address] [place] [address] Calcium [Mass/Vol] 8.6 mg/dL Normal 8.5-10.5 [facility] Comment on above: Performed By: #### A HP #### [facility] ([id number]) [address] [facility], [address] [place] [address] #### 15408-1 #### [facility] ([id number]) [address] [place] [address] Chloride [Moles/Vol] 112 mmol/L High 98-109 [place] Comment on above: Performed By: #### A HP #### [facility] ([id number]) [address] [facility], [address] [place] [address] #### 79608-6 #### [facility] ([id number]) [address] [place] [address]201 CO2 [Moles/Vol] 25 mmol/L Normal 22-32 [facility] Comment on above: Performed By: #### A HP #### [facility] ([id number]) [address] [place] [address] #### 75401-1 #### [facility] ([id number]) [address] [place] [address]37 Creatinine [Mass/Vol] 0.60 mg/dL Normal 0.40-1.00 [facility] Comment on above: Result Comment: METH OD TRACEABLE TO IDMS STANDARD Performed By: #### A HP #### [facility] ([id number]) [address] [place] [address] #### 04235-4 #### [facility] ([id number]) [address] [place] [address] eGFR (CKD-EPI) NON-RACE DEPENDENT >90 Normal >59 [facility] Comment on above: Result Comment: Reported eGFR is based on the CKD-EPI 2020 equation that does not use a race coefficient. Performed By: #### A HP #### [facility] ([id number]) [address] [place] [address] #### 22562-3 #### [facility] ([id number]) [address] [place] [address] 70495 Glucose [Mass/Vol] 94 mg/dL Normal 65-99 [facility] Comment on above: Performed By: #### A HP #### [facility] ([id number]) [address] [place] [address] #### 43412-8 #### [facility] ([id number]) [address] [place] [address] 11569 Potassium [Moles/Vol] 3.4 mmol/L Low 3.5-5.0 [facility] Comment on above: Performed By: #### A HP #### [facility] ([id number]) [address], [address] [place] [address] #### 47736-2 #### [facility] ([id number]) [address] [place] [address]173 Protein [Mass/Vol] 5.1 g/dL Low 6.0-8.0 [facility] Comment on above: Performed By: #### A HP #### [facility] ([id number]) [address] [facility], [address] [place] [address] #### 72735-0 #### [facility] ([id number]) [address] [place] [address] Sodium [Moles/Vol] 140 mmol/L Normal 134-146 [facility] Comment on above: Performed By: #### A HP #### [facility] ([id number]) [address] [facility], [address] [place] [address] #### 80100-1 #### [facility] ([id number]) [address] [place] [address]77 Urea nitrogen [Mass/Vol] 12 mg/dL Normal 5-23 [facility] Comment on above: Performed By: #### A HP #### [facility] ([id number]) [address], [address] [place] [address] #### 75992-2 #### [facility] ([id number]) [address] [place] [address]757 HCG ( test) Ql (U)o n 01-14-2024 Beta HCG ( test) Ql (U) Negative Normal NEG [facility] Comment on above: Performed By: #### C MP, 66947-2, CBCA, 1988-5, 3040-3 #### [facility] ([id number]) [address] [place] [address] 180[address] MAGNESIUMon 01-14-2024 Magnesium [Mass/Vol] 1.8 mg/dL Normal 1.8-2.6 [place] Comment on above: Performed By: #### A HP #### [facility] ([id number]) [address] [place] [address], [facility] [address] [place] [address] #### 70129-4 #### [facility] ([id number]) [address] [place] [address]493 Troponin I.cardiac High sens itivity method [Mass/Vol]on 01-14-2024 TROPONIN I, HIGH SENSITIVITY 4 ng/L Normal <16 [facility] Comment on above: Performed By: #### A HP #### [facility] ([id number]) [address] [place] [address] #### 35751-5 #### [facility] ([id number]) [address] [place] [address]1637 URN MACROSCOPIC NURon 2023 BILIRUBIN ERA Negative Normal NEG [facility] Comment on above: Performed By: #### A HP #### [facility] ([id number]) [address] [place] [address] #### 84508-3 #### [facility] ([id number]) [address] [place] [address]17 BLOOD/HGB ERA Negative Normal NEG [facility] Comment on above: Performed By: #### A HP #### [facility] ([id number]) [address] [place] [address] [address] [place] [address] #### 69107-9 #### [facility] ([id number]) [address] [place] [address] GLUCOSE ERA Negative Normal NEG [facility] Comment on above: Performed By: #### A HP #### [facility] ([id number]) [address], [address] [place] [address] #### 52734-6 #### [facility] ([id number]) [address] [place] [address] 28974 KETONES ERA Negative Normal NEG [facility] Comment on above: Performed By: #### A HP #### [facility] ([id number]) [address], [address] [place] [address] #### 19596-1 #### [facility] ([id number]) [address] [place] [address] LEUKOCYTE ESTERASE ERA Negative Normal NEG Pr [facility] Comment on above: Performed By: #### A HP #### [facility] ([id number]) [address], [address] [place] [address] #### 55655-1 #### [facility] ([id number]) [address] [place] [address] 22051 NITRITE ERA Positive Abnormal NEG [facility] Comment on above: Performed By: #### A HP #### [facility] ([id number]) [address], [address] [place] [address] #### 01678-0 #### [facility] ([id number]) [address] [place] [address]64[address] PH ERA 6.0 Normal 5.0-8.5 [facility] Comment on above: Performed By: #### A HP #### [facility] ([id number]) [address], [address] [place] [address] #### 51774-8 #### [facility] ([id number]) [address] [place] [address] PROTEIN ERA Negative Normal NEG [facility] Comment on above: Performed By: #### A HP #### [facility] ([id number]) [address] [facility], [address] [place] [address] #### 71268-2 #### [facility] ([id number]) [address] [place] [address]38 SPECIFIC GRAVITY ERA >=1.030 Normal 1.003-1.035 [facility] Comment on above: Performed By: #### A HP #### [facility] ([id number]) [address] [facility], [address] [place] [address] #### 21860-8 #### [facility] ([id number]) [address] [place] [address] 50638 UROBILINOGEN ERA 1.0 eu/dL Normal <1.1 [facility] Comment on above: Performed By: #### A HP #### [facility] ([id number]) [address] [facility], [address] [place] [address] #### 67333-5 #### [facility] ([id number]) [address] [place] [address] 30781 HGB A1C (GLYCO-HGB)on 2023 Glucose [Mass/Vol] 117 mg/dL Normal [facility] Comment on above: Performed By: #### A HP #### [facility] ([id number]) [address] [facility], [address] [place] [address] #### 21548-0 #### [facility] ([id number]) [address] [place] [address] 20969 HbA1c (Bld) [Mass fraction] 5.7 % High 4.4-5.6 [facility] Comment on above: Result Comment: NOTE ADA Guidelines Result HgbA1c Normal : less than 5.7 % Prediabetes : 5.7 % to 6.4 % Diabetes : > 6.4 % Use with caution in patients with abnormal hemoglobin variants as the half-life of red blood cells and in vivo glycation rates are affected. Performed By: #### A HP #### [facility] ([id number]) [address] [place] [address], [facility] [address] [place] [address] #### 44528-8 #### [facility] ([id number]) [address] [place] [address] 73444 Lipid 1996 panelon 4 Cholesterol [Mass/Vol] 99 mg/dL Low 150-200 Pr [facility] Comment on above: Performed By: #### A HP #### [facility] ([id number]) [address] [place] [address], [facility] [address] [place] [address] #### 92575-6 #### [facility] ([id number]) [address] [place] [address] 10036 Cholesterol in HDL [Mass/Vol] 29 mg/dL Low >39 [facility] Comment on above: Result Comment: HDL <40 mg/dL - High Risk HDL > or = 40mg/dL- Desirable HDL >60 mg/dL - Negative Risk Performed By: #### A HP #### [facility] ([id number]) [address] [place] [address], [facility] [address] [place] [address] #### 17787-4 #### [facility] ([id number]) [address] [place] [address] 02696 Cholesterol in LDL [Mass/Vol] 44 mg/dL Normal <130 [facility] Comment on above: Result Comment: LDL <100 mg/dL - Desirable LDL >160 mg/dL - High Risk Performed By: #### A HP #### [facility] ([id number]) [address], [address] [place] [address] #### 58980-0 #### [facility] ([id number]) [address] [place] [address] 41235 Cholesterol in VLDL [Mass/Vol] 26 mg/dL Normal 0-30 [facility] Comment on above: Performed By: #### A HP #### [facility] ([id number]) [address] [facility], [address] [place] [address] #### 19739-4 #### [facility] ([id number]) [address] [place] [address] 47561 CHOLESTEROL:HDL 3.4 Normal 1.0-5.0 [facility] Comment on above: Performed By: #### A HP #### [facility] ([id number]) [address] [facility], [address] [place] [address] #### 24275-2 #### [facility] ([id number]) [address] [place] [address] 83115 Triglyceride [Mass/Vol] 131 mg/dL Normal 27-150 [facility] Comment on above: Performed By: #### A HP #### [facility] ([id number]) [address] [place] [address] #### 11894-2 #### [facility] ([id number]) [address] [place] [address] 19650 Reference Lab Test IDon 05-0 VIT D 1 25 DIHYDROXY See Below Normal [place] Comment on above: Result Comment: NOTE TEST RESULT FLAG UNIT REF.RANGE ------- Vit D,1,25 Dihydroxy 59.9 pg/mL 19.9-79.3 Test Performed By: [facility] [address] [address] [employer] Driver: Ronnie Nicole III, M.D. CLIA #[id number] Performed By: #### A HP #### [facility] ([id number]) [address] [place] [address], [address] [place] [address] #### 47520-1 #### [facility] ([id number]) [address] [place] [address] 44342 TSH WITH REFLEXon 09-08-2023 TSH 1.36 uIU/mL Normal 0.49-4.67 [facility] Comment on above: Performed By: #### A HP #### [facility] ([id number]) [address] [place] [address], [address] [place] [address] #### 35372-1 #### [facility] ([id number]) [address] [place] [address] 89778 CBC AND AUTO DIFFon 08-19-19 24 Anisocytosis Ql (Bld) 2+ Abnormal NONE [facility] Comment on above: Performed By: #### C BRUCE, , CBCA, 1987-08, 3 #### [facility] ([id number]) [address] [place] [address] 94238 Erythrocyte distribution width (RBC) [Ratio] 23.1 % High 11.5-15.0 [facility] Comment on above: Performed By: #### C BRUCE, , CBCA, 1987-08, 3039-07 #### [facility] ([id number]) [address] [place] [address] 42455 Hematocrit (Bld) [Volume fraction] 26.3 % Low 35-47 [facility] Comment on above: Performed By: #### C BRUCE, , CBCA, 1987-08, 3039-07 #### [facility] ([id number]) [address] [place] [address] 55630 Hemoglobin (Bld) [Mass/Vol] 9.3 g/dL Low 11.7-15.5 [facility] Comment on above: Performed By: #### Ethan BARRERA, , CBCA, 1987-08, 3039-07 #### [facility] ([id number]) [address] [place] [address] 98426 Lymphocytes (Bld) [#/Vol] 1.0 10*3/uL Normal 1.0-3.5 [facility] Comment on above: Performed By: #### Ethan BARRERA, , CBCA, 1987-08, 3039-07 #### [facility] ([id number]) [address] [place] [address] 12501 Lymphocytes/100 WBC (Bld) 48.0 % Normal [facility] Comment on above: Performed By: #### Ethan BARRERA, , CBCA, 1987-08, 3039-07 #### [facility] ([id number]) [address] [place] [address] 26793 MCH (RBC) [Entitic mass] 42.6 pg High 27-34 [facility] Comment on above: Performed By: #### Ethan BARRERA, , CBCA, 1987-08, 3039-07 #### [facility] ([id number]) [address] [place] [address] 75036 MCHC (RBC) [Mass/Vol] 35.5 g/dL Normal 32-36 [facility] Comment on above: Performed By: #### Ethan BARRERA, , CBCA, 1987-08, 3039-07 #### [facility] ([id number]) [address] [place] [address] 29795 MCV (RBC) [Entitic vol] 120 fL High 80-100 [facility] Comment on above: Performed By: #### Ethan BARRERA, , CBCA, 1987-08, 3039-07 #### [facility] ([id number]) [address] [place] [address] 10832 Monocytes (Bld) [#/Vol] 0.2 10*3/uL Normal 0-0.9 [facility] Comment on above: Performed By: #### Ethan BARRERA, , CBCA, 1987-08, 3039-07 #### [facility] ([id number]) [address] [place] [address] 25561 Monocytes/100 WBC (Bld) 7.0 % Normal [facility] Comment on above: Performed By: #### Ethan BARRERA, , CBCA, 1987-08, 3039-07 #### [facility] ([id number]) [address] [place] [address] 20257 Neutrophils (Bld) [#/Vol] 1.0 10*3/uL Low 1.5-6.6 [facility] Comment on above: Performed By: #### Ethan BARRERA, , CBCA, 3039-07 #### [facility] ([id number]) [address] [place] [address] 02135 Platelet mean volume (Bld) [Entitic vol] 8.3 fL Normal 7-12 [facility] Comment on above: Performed By: #### Ethan BARRERA, , CBCA, 3039-07 #### [facility] ([id number]) [address] [place] [address] 33116 Platelets (Bld) [#/Vol] 122 10*3/uL Low 150-450 [facility] Comment on above: Performed By: #### C BRUCE, , CBCA, 1987-08, 3039-07 #### [facility] ([id number]) [address] [place] [address] 58601 RBC COUNT 2.19 X10E12/L Low 3.80-5.20 [facility] Comment on above: Performed By: #### Ethan BARRERA, , CBCA, 1987-08, 3039-07 #### [facility] ([id number]) [address] [place] [address] 55415 SEG NEUTROPHIL 45.0 % Normal [facility] Comment on above: Performed By: #### Ethan BARRERA, , CBCA, 1987-08, 3039-07 #### [facility] ([id number]) [address] [place] [address] 97413 TEARDROP 1+ Abnormal NONE [facility] Comment on above: Performed By: #### Ethan BARRERA, , CBCA, 1987-08, 3039-07 #### [facility] ([id number]) [address] [place] [address] 41063 WBC (Bld) [#/Vol] 2.2 10*3/uL Low 4.0-11.0 [facility] Comment on above: Performed By: #### Ethan BARRERA, , CBCA, 1987-08, 3039-07 #### [facility] ([id number]) [address] [place] [address] 86027 COMPREHENSIVE METABOLIC PANE Elvin 08-19-2023 Albumin [Mass/Vol] 3.3 g/dL Normal 3.2-5.3 [facility] Comment on above: Performed By: #### C BRUCE, , CBCA, 1987-08, 3039-07 #### [facility] ([id number]) [address] [place] [address] 63655 ALP [Catalytic activity/Vol] 50 U/L Normal 39-130 [facility] Comment on above: Performed By: #### C BRUCE, , CBCA, 1987-08, 3039-07 #### [facility] ([id number]) [address] [place] [address] 36757 ALT [Catalytic activity/Vol] 26 U/L Normal 0-31 [facility] Comment on above: Performed By: #### C BRUCE, , CBCA, 1987-08, 3039-07 #### [facility] ([id number]) [address] [place] [address] 90413 Anion gap [Moles/Vol] 5 mmol/L Normal 5-15 [facility] Comment on above: Performed By: #### C BRUCE, , CBCA, 1987-08, 3039-07 #### [facility] ([id number]) [address] [place] [address] 92904 AST [Catalytic activity/Vol] 29 U/L Normal 0-41 [facility] Comment on above: Performed By: #### Ethan BARRERA, , CBCA, 1987-08, 3039-07 #### [facility] ([id number]) [address] [place] [address] 20371 Bilirubin [Mass/Vol] 1.2 mg/dL Normal 0.3-1.2 [place] Comment on above: Performed By: #### C BRUCE, , CBCA, 1987-08, 3039-07 #### [facility] ([id number]) [address] [place] [address] 65956 Calcium [Mass/Vol] 9.0 mg/dL Normal 8.5-10.5 [facility] Comment on above: Performed By: #### C BRUCE, , CBCA, 1987-08, 3039-07 #### [facility] ([id number]) [address] [place] [address] 47262 Chloride [Moles/Vol] 107 mmol/L Normal 98-109 [place] Comment on above: Performed By: #### C BRUCE, , CBCA, 1987-08, 3039-07 #### [facility] ([id number]) [address] [place] [address] 70834 CO2 [Moles/Vol] 27 mmol/L Normal 22-32 [facility] Comment on above: Performed By: #### C BRUCE, , CBCA, 1987-08, 3039-07 #### [facility] ([id number]) [address] [place] [address] 08835 Creatinine [Mass/Vol] 0.53 mg/dL Normal 0.40-1.00 [facility] Comment on above: Result Comment: METH OD TRACEABLE TO IDMS STANDARD Performed By: #### C BRUCE, , CBCA, 1987-08, 3039-07 #### [facility] ([id number]) [address] [place] [address] 85530 eGFR (CKD-EPI) NON-RACE DEPENDENT >90 Normal >59 [facility] Comment on above: Result Comment: Reported eGFR is based on the CKD-EPI 2021 equation that does not use a race coefficient. Performed By: #### C BRUCE, , CBCA, 1987-08, 3039-07 #### [facility] ([id number]) [address] [place] [address] 39522 Glucose [Mass/Vol] 94 mg/dL Normal 65-99 [facility] Comment on above: Performed By: #### C BRUCE, , CBCA, 1987-08, 3039-07 #### [facility] ([id number]) [address] [place] [address] 79477 Potassium [Moles/Vol] 3.2 mmol/L Low 3.5-5.0 [facility] Comment on above: Performed By: #### C BRUCE, , CBCA, 1987-08, 3039-07 #### [facility] ([id number]) [address] [place] [address] 56740 Protein [Mass/Vol] 5.5 g/dL Low 6.0-8.0 [facility] Comment on above: Performed By: #### Ethan BARRERA, , CBCA, 1987-08, 3039-07 #### [facility] ([id number]) [address] [place] [address] 22230 Sodium [Moles/Vol] 139 mmol/L Normal 134-146 [facility] Comment on above: Performed By: #### C BRUCE, , CBCA, 1987-08, 3039-07 #### [facility] ([id number]) [address] [place] [address] 23221 Urea nitrogen [Mass/Vol] 11 mg/dL Normal 5-23 [facility] Comment on above: Performed By: #### Ethan BARRERA, , CBCA, 1987-08, 3039-07 #### [facility] ([id number]) [address] [place] [address] 03664 CRP [Mass/Vol]on 08-19-2023 C REACTIVE PROTEIN 0.9 mg/dL High 0.000-0.744 [facility] Comment on above: Performed By: #### C BRUCE, , CBCA, 1987-08, 3039-07 #### [facility] ([id number]) [address] [place] [address] 16152 DRUG SCREEN, URINEon 024 AMPHETAMINE/METHAMP Negative Normal NEG [facility] Comment on above: Result Comment: AMPH /METH screening cut off = 1000 ng/mL Performed By: #### A HP #### [facility] ([id number]) [address] [place] [address], [address] [place] [address] #### 00330-2 #### [facility] ([id number]) [address] [place] [address] 83799 BARBITURATES Negative Normal NEG [facility] Comment on above: Result Comment: Ana iturates screening cut off value = 200 ng/mL Performed By: #### A HP #### [facility] ([id number]) [address] [place] [address], [address] [place] [address] #### 12594-1 #### [facility] ([id number]) [address] [place] [address] 23818 BENZODIAZEPINES Negative Normal NEG [facility] Comment on above: Result Comment: Jeramie odiazepines screening cut off value = 200 ng/mL Performed By: #### A HP #### [facility] ([id number]) [address] [place] [address], [address] [place] [address] #### 87486-5 #### [facility] ([id number]) [address] [place] [address] 80766 CANNABINOIDS Positive Abnormal NEG [facility] Comment on above: Result Comment: Conf irmation available upon request. Cannabinoids/THC screening cut off value = 50 ng/mL Performed By: #### A HP #### [facility] ([id number]) [address] [place] [address], [address] [place] [address] #### 29041-0 #### [facility] ([id number]) [address] [place] [address] 55468 COCAINE METABOLITE Negative Normal NEG [facility] Comment on above: Result Comment: Coca ine screening cut off value = 300 ng/mL Performed By: #### A #### [facility] ([id number]) [address] [place] [address], [address] [place] [address] #### 24635-8 #### [facility] ([id number]) [address] [place] [address] 59127 ECSTASY Negative Normal NEG [facility] Comment on above: Result Comment: Ecst asy screening cut off value = 500 ng/mL This report is intended for use in clinical monitoring or management of patients. Performed By: #### A #### [facility] ([id number]) [address] [place] [address], [facility] [address] [place] [address] #### 97559-8 #### [facility] ([id number]) [address] [place] [address] 52676 METHADONE Negative Normal [facility] Comment on above: Result Comment: Meth adone screening cut off value = 300 ng/mL. Performed By: #### A #### [facility] ([id number]) [address] [place] [address], [facility] [address] [place] [address] #### 12707-6 #### [facility] ([id number]) [address] [place] [address] 72414 OPIATES Negative Normal [facility] Comment on above: Result Comment: Opia chalo screening cut off value = 300 ng/mL NOTE: This test is used for the detection of codeine, hydrocodone (>1000 ng/mL), morphine and hydromorphone (>900 ng/mL) in urine. Performed By: #### A HP #### [facility] ([id number]) [address] [place] [address], [facility] [address] [place] [address] #### 89019-6 #### [facility] ([id number]) [address] [place] [address] 84382 OXYCODONE Negative Normal NEG [facility] Comment on above: Result Comment: Oxyc odone screening cut off value = 300 ng/mL NOTE: This test is used for the detection of oxycodone and oxymorphone in urine. Performed By: #### A HP #### [facility] ([id number]) [address] [place] [address], [address] [place] [address] #### 84607-9 #### [facility] ([id number]) [address] [place] [address] 63707 PHENCYCLIDINE Negative Normal NEG [facility] Comment on above: Result Comment: Phen cyclidine screening cut off value = 25 ng/mL Performed By: #### A HP #### [facility] ([id number]) [address] [place] [address], [address] [place] [address] #### 14904-2 #### [facility] ([id number]) [address] [place] [address] 33074 HCG ( test) Ql (U)o n 08-19-2023 Beta HCG ( test) Ql (U) Negative Normal NEG [facility] Comment on above: Performed By: #### 2 106-3 #### [facility] ([id number]) [address] [place] [address] 18290 LIPASEon 08-19-2023 Lipase [Catalytic activity/Vol] 25 U/L Normal 17-40 [facility] Comment on above: Performed By: #### C BRUCE, 84353-1, CBCA, 1987-08, 3039-3 #### [facility] ([id number]) [address] [place] [address] 53239 MAGNESIUMon 08-19-2023 Magnesium [Mass/Vol] 1.9 mg/dL Normal 1.8-2.6 [facility] Comment on above: Performed By: #### C BRUCE, 50532-6, CBCA, 1987-08, 3039- #### [facility] ([id number]) [address] [facility] [place] [address] SARS/FLU A+B/RSV by NAAT/Mol doraon 08-19-2023 SARS/FLU A+B/RSV by NAAT/Molecular FLU A [...] operators who are performing tests using either [employer] or [facility] systems and is limited to laboratories that [...] repeat. Fact Sheet for Healthcare Providers: https://www.fda.gov/ media/324598/denisha d Fact Sheet for Patients: https://www.fda.gov/ media/739306/downloa d Normal [facility] Comment on above: Performed By: #### C OVFLR #### [facility] ([id number]) [address] [place] [address] 76565 URN MACROSCOPIC NURon 2023 BILIRUBIN ERA Small Abnormal NEG [facility] Comment on above: Performed By: #### N UM #### [facility] ([id number]) [address] [place] [address] 78032 BLOOD/HGB ERA Trace Abnormal NEG [facility] Comment on above: Performed By: #### N UM #### [facility] ([id number]) [address] [place] [address] 00326 GLUCOSE ERA Negative Normal NEG [facility] Comment on above: Performed By: #### N UM #### [facility] ([id number]) [address] [place] [address] [place] [address] KETONES ERA Negative Normal NEG [facility] Comment on above: Performed By: #### N UM #### [facility] ([id number]) [address] [place] [address] 84318 LEUKOCYTE ESTERASE ERA Small Abnormal NEG Pr [facility] Comment on above: Performed By: #### N UM #### [facility] ([id number]) [address] [place] [address] [place] [address] NITRITE ERA Positive Abnormal NEG [facility] Comment on above: Performed By: #### N UM #### [facility] ([id number]) [address] [place] [address] 78740 PH ERA 6.0 Normal 5.0-8.5 [facility] Comment on above: Performed By: #### N UM #### [facility] ([id number]) [address] [place] [address] 32340 PROTEIN ERA Negative Normal NEG [facility] Comment on above: Performed By: #### N UM #### [facility] ([id number]) [address] [place] [address] SPECIFIC GRAVITY ERA 1.025 Normal 1.003-1.035 [facility] Comment on above: Performed By: #### N UM #### [facility] ([id number]) [address] [place] [address] UROBILINOGEN ERA >=8.0 Normal <1.1 [facility] Comment on above: Performed By: #### N UM #### [facility] ([id number]) [address] [place] [address] 43521 ED Note-Physicianon 07-23-19 ED Note-Physician Basic Information Time Seen: Bernadette Gil PA-C 07/06/2023 15:16 Chief Complaint Pt reports vaginal itching and burning with urination for 1.5 months. Brown vaginal discharge. Pt also reports sinus congestion for 3-4 days. History of Present Illness 33-year-old female presents with brown vaginal discharge for the past 2 months. She states that she has followed up in [facility] for this, but they did not [...] to follow-up with the health department or [employer]. Nasal congestion sounds viral and can use bvld-svy-ojutnnn medications and follow-up family doctor. Afebrile, not [...] medications Follow-up With When Contact Information [facility] Dept: [phone] In 3 days 07/09/2023 EST Additional Instructions: Boubacar MULLINS, Zev Webber, ORS Within 2 to [address] [facility] [address] [place] [address]- Additional Instructions: Patient Education Viral Respiratory Infection, Geqv-Tv-Kmfc Attestation I performed a substantive part of [...] No. Hous (more content not included)... Normal [facility] Comment on above: Result Comment: Elec tronically Signed By: Bernadette Gil PA-C\.br\Date and Time Signed: 07/06/23 16:00 EST\.br\Electronically Co-Signed By: Adolfo Hernandez MD\.br\Date and Time Co-Signed: 07/23/23 19:29 EDT Chlam/GC/Trich,NAAon 024 C. trachomatis rRNA BETZAIDA+probe Ql (Unsp spec) Negative Invalid Interpretation Code Negative [facility] Comment on above: Performed By: #### 1 [id number] #### [facility] [address] [place] [address] N. gonorrhoeae rRNA BETZAIDA+probe Ql (Unsp spec) Negative Invalid Interpretation Code Negative [facility] Comment on above: Performed By: #### 1 [id number] #### [facility] [address] [facility] [place] [address] T. vaginalis rRNA BETZAIDA+probe Ql (Unsp spec) Negative Invalid Interpretation Code Negative [facility] Comment on above: Result Comment: Perf ormed at: =G [facility] [address] [place] [id number] MD Tamika Eid Performed By: #### 1 [id number] #### [facility] [address] [place] [address] C Urineon 07-08-2023 Bacteria identified Cx Nom [...] Locations R1: This test was performed at: [facility], [address] [place] [address], [facility]- , , [facility] Comment on above: Performed By: #### 2 [id number], [id number] #### [facility] [address] [place] [address] CHEMISTRYOrdered By: SYSTEM SYSTEM on 07-06-2023 Amphetamines [...] for Treatmenton Consent for Treatment [id number] #1.00TIFF Normal [facility] Discharge Instructionson Discharge Instructions [id number] 6#1.00TIFF Normal [facility] ED Clinical Summaryon 2023 ED Clinical Summary [place] [id number] ED Clinical Summary Person Information Name: SANGEETA MYLES [facility]owmya/[facility] Age: 33 Years : 1990 Sex: Female Language: Albanian PCP: NONE, XXXX Marital Status: Single Visit [...] 07/06/2023 16:02:43 07/06/2023 16:02:43 07/06/2023 16:02:43 ADDRESS: [address] [place] [id number] PHYS DOC NOTES: MEDICAL INFORMATION: Prescriptions Given: Medications to Continue with No Changes Other Medications albuterol (albuterol 0.083% Inh Valerie 3 mL) 3 Milliliter Inhalation every 6 hours as needed for wheezing. PATIENT EDUCATION INFORMATION: Instructions: Viral Respiratory Infection, Gsju-Aj-Cixp Follow up: With: Address: When: Boubacar MULLINS, Zev Webber, ORS [address] [place] [address] Within 2 to 4 days With: Address: [facility] [phone] In 3 days 07/09/2023 DIAGNOSIS: 1:Viral sinusitis; 2:Vaginal discharge; Other viral agents as the cause of diseases classified elsewhere Normal [facility] ED Patient Education Noteon 07-06-2023 [...] home: Managing pain and congestion ? 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 ? Cover your mouth when you cough. [...] provider. Document Revised: 07/23/2021 Document Reviewed: 07/23/2021 [employer] Patient Education ? 2022 [employer]. Normal [facility] ED Patient Summaryon 024 ED Patient Summary [place] [id number] Patient Discharge Instructions Person Information Name: SANGEETA MYLES Age: 33 Years Arrival Date: 07/06/2023 15:07:04 Discharge Diagnosis: 1:Viral sinusitis; 2:Vaginal discharge; Other viral agents as the cause of diseases classified elsewhere Primary Care Physician: NONE, XXXX Provider Information Primary Provider: [employer] Architect:None The exam and treatment you received in the Emergency Department were for an urgent problem and are not intended as complete care. It is important that you follow up with a doctor, nurse practitioner, or physician?s obstetric assistant for ongoing care. If your symptoms [...] When: Boubacar MULLINS, Zev Webber, ORS [address] [facility], [address] [address] Within 2 to 4 days With: Address: When: [facility] Dept: [phone] In 3 days 07/09/2023 In the event that this physician does not participate in your insurance network, please consult with your insurance company to find a nearby participating provider. Patient Education Materials: Viral Respiratory Infection, Kpop-Mz-Ihxx A MESSAGE TO ALL PATIENTS REGARDING OPIOIDS PRESCRIPTION OPIOIDS: WHAT YOU NEED TO KNOW Prescription opioids can be used to help relieve gggkiiws-xp-vogitf pain and are often prescribed following a [...] be strugglin (more content not included)... Normal [facility] No Panel InformationOrdered By: Bella Flower on 07-06-2023 WP No clue cells present No Trichomonas vaginalis present No yeast seen [facility] SEROLOGYOrdered By: Jules Sesay on 07-06-2023 HCG.beta subunit (U) [Moles/Vol] Negative Normal [facility] S[facility] U BetaHcg Qualon 07-06-2023 HCG.beta subunit (U) [Moles/Vol] Negative Normal [facility] Comment on above: Performed By: #### 2 [id number], [id number], [id number] #### [facility] [address] [place] [address] U Drug Screenon 07-06-2023 Amphetamines Screen method >1000 ng/mL Ql (U) Negative Normal NEGATIVE [facility] Comment on above: Performed By: #### 2 [id number] #### [facility] [address] [place] [address] Barbiturates Screen Ql (U) Negative Normal NEGATIVE [facility] Comment on above: Performed By: #### 2 [id number] #### [facility] [address] [place] [address] Benzodiazepines Ql (U) Negative Normal NEGATIVE [facility] Comment on above: Performed By: #### 2 [id number] #### [facility] [address] [place] [address] Cannabinoids Screen Ql (U) Positive Abnormal NEGATIVE [facility] Comment on above: Performed By: #### 2 [id number] #### [facility] [address] [place] [address] Cocaine Ql (U) Negative Normal NEGATIVE [facility] Comment on above: Performed By: #### 2 369069 #### [facility] [address] [place] [address] Opiates Screen Ql (U) Negative Normal NEGATIVE Fis [facility] Comment on above: Performed By: #### 2 060726 #### [facility] [address] [place] [address] Phencyclidine Screen method >25 ng/mL Ql (U) Negative Normal NEGATIVE [facility] Comment on above: Performed By: #### 2 735701 #### [facility] [address] [place] [address] UA With Cult Reflexon 2023 Color (U) YELLOW Normal Yellow [facility] Comment on above: Performed By: #### 2 [id number], [id number], [id number] #### [facility] [address] [place] [address] Glucose (U) [Mass/Vol] Negative Normal Negative [facility] Comment on above: Performed By: #### 2 8200454, [id number], 5733764 #### [facility] [address] [place] [address] Ketones Ql (U) Negative Normal Negative [facility] Comment on above: Performed By: #### 2 3989131, [id number], [id number] #### [facility] [address] [place] [address] UA Blood Negative Normal Negative [facility] Comment on above: Performed By: #### 2 9791696, 51379300, 5848118 #### [facility] [address] [place] [address] UA Amorph Nelsy Present Normal [facility] Comment on above: Performed By: #### 2 1840837, 83404361, 2552459 #### [facility] [address] [place] [address] UA Bacteria TRACE Normal Trace [facility] Comment on above: Performed By: #### 2 1290414, [id number], 4401038 #### [facility] [address] [place] [address] UA Clarity CLEAR Normal Clear [facility] Comment on above: Performed By: #### 2 7398942, 22121362, 6178195 #### [facility] [address] [place] [address] UA Leuk Est 2+ Abnormal Negative [facility] Comment on above: Performed By: #### 2 1945943, 64645666, 2455923 #### [facility] [address] [place] [address] UA Mucous 1+ Normal [facility] Comment on above: Performed By: #### 2 1856765, [id number], 0442691 #### [facility] [address] [place] [address] UA Nitrite Negative Normal Negative [facility] Comment on above: Performed By: #### 2 4458137, 68849835, 2479416 #### [facility] [address] [place] [address] UA pH 8.5 Invalid Interpretation Code 5.0-9.0 [facility] Comment on above: Performed By: #### 2 6960296, 65079502, 3168111 #### [facility] [address] [place] [address] UA Protein 2+ Abnormal Negative [facility] Comment on above: Performed By: #### 2 8447636, 73719109, 8803526 #### [facility] [address] [place] [address] UA RBC 0-3 Normal 0-3 [facility] Comment on above: Performed By: #### 2 0136211, 67833256, 7770918 #### [facility] [address] [place] [address] UA Spec Desc Clean Catch Normal [facility] Comment on above: Performed By: #### 2 5836477, 16554239, 4538929 #### [facility] [address] [place] [address] UA Spec Grav 1.010 Invalid Interpretation Code 1.005-1.030 [facility] Comment on above: Performed By: #### 2 0709325, [id number], 1957233 #### [facility] [address] [place] [address] UA Squam Epithelial 3-4 Normal 0-2 [facility] Comment on above: Performed By: #### 2 2503878, 22945343, 9049569 #### [facility] [address] [place] [address] UA Urobilinogen 4.0 EU/dL Abnormal 0.0-1.0 [facility] Comment on above: Performed By: #### 2 1658707, 98424546, 2476634 #### [facility] [address] [place] [address] UA WBC 16-25 Abnormal 0-5 [facility] Comment on above: Performed By: #### 2 4711788, 73131302, 0570646 #### [facility] [address] [place] [address] Urobilinogen (U) [Mass/Vol] Negative Normal Negative [facility] Comment on above: Performed By: #### 2 4657778, 62366842, 1203183 #### [facility] [address] [place] [address] URINALYSISOrdered By: Jules Ny on 07-06-2023 Color (U) Yellow (07/06/23 3:19 PM) Normal Yellow [facility] UA Auto SS Ketones Ql (U) Negative [...] HCV W/PCR REFLX Reactive Abnormal NRCT [facility] Comment on above: Result Comment: Supplemental testing for HCV RNA by PCR has been ordered per CDC recommendations. Bzzvod-mg-fqzgfe ratio is >=1.00. Performed By: #### A HP #### [facility] ([id number]) [facility], [facility] [address] [place] [address] #### [id number] #### [facility] ([id number]) [address] [place] [address] HEPATITIS A IGM Non-Reactive Normal NRCT [facility] Comment on above: Performed By: #### A HP #### [facility] ([id number]) [address] [place] [address], [facility] [address] [place] [address] #### [id number] #### [facility] ([id number]) [address] [place] [address] HEPATITIS B CORE IGM Negative Normal NEG [place] Comment on above: Performed By: #### A HP #### [facility] ([id number]) [address] [place] [address], [address] [address] #### [id number] #### [facility] ([id number]) [address] [place] [address] HEPATITIS B SURF AG Negative Normal NEG [facility] Comment on above: Performed By: #### A HP #### [facility] ([id number]) [address] [place] [address] #### [id number] #### [facility] ([id number]) [address] [place] [address] HCV RNA BETZAIDA+probe Qnon 06-17 HCV RNA QUANT PCR [id number] IU/mL Abnormal Undetected [place] Comment on above: Result Comment: NOTE Result in log IU/mL is 6.72. ADDITIONAL INFORMATION The quantification range of this assay is 15 to 100,000,000 IU/mL (1.18 log to 8.00 log IU/mL). Testing was performed using the valentin HCV test ([employer] Test Performed by: [facility] [address] [place] [address] Medication Specialist: Ruddy Gonzalez M.D. Ph.D.; CLIA# [id number] Performed By: #### A HP #### [facility] ([id number]) [address] [facility] [address] [place] [address] #### [id number] #### [facility] ([id number]) [address] [place] [address], [place] [address] Cult,Urineon 12-11-2022 Cult,Urine Specimen Description .URINE Culture Several types of bacteria were identified in this specimen. Further ID and susceptibility testing is generally not helpful in this circumstance and has not been performed. Consider recollection if clinically indicated. Report Status FINAL 12/11/2022 Normal [facility] Comment on above: Performed By: #### P HEP, HIVCMB #### [address] [place], [place] 8076[address] Medication Specialist: Antonino Nova MD #### BMPCMP, BMP, CBC #### [facility] [address] [place] [address] Medication Specialist: Merlin Charles MD UA w/Reflex Cultureon 2022 Bilirubin, SemiQt,Ur Negative Normal NEG [facility] Comment on above: Performed By: #### P HEP, HIVCMB #### [address] [place], [place] 1336908 Medication Specialist: Antonino Nova MD #### BMPCMP, BMP, CBC #### [facility] [address] [place] [address] Medication Specialist: Merlin Charles MD Blood, Urine Negative Normal NEG [facility] Comment on above: Performed By: #### P HEP, HIVCMB #### [address] [address] Medication Specialist: Antonino Nova MD #### BMPCMP, BMP, CBC #### [address] [place] [address] Medication Specialist: Merlin Charles MD Clarity (U) Clear Normal CLEAR [facility] Comment on above: Performed By: #### P HEP, HIVCMB #### [address] [address] Medication Specialist: Antonino Nova MD #### BMPCMP, BMP, CBC #### [address] [place], [place] 0219183 Medication Specialist: Meriln Charles MD Color (U) Yellow Normal YEL [facility] Comment on above: Performed By: #### P HEP, HIVCMB #### [address] [address] Medication Specialist: Antonino Nova MD #### BMPCMP, BMP, CBC #### [address] [place], [place] 4970583 Medication Specialist: Merlin Charles MD Glucose Ql (U) Negative Normal NEG [facility] Comment on above: Performed By: #### P HEP, HIVCMB #### [address] [address] Medication Specialist: Antonino Nova MD #### BMPCMP, BMP, CBC #### [address] [place], [place] 5941783 Medication Specialist: Merlin Charles MD Ketones Ql (U) Negative Normal NEG [facility] Comment on above: Performed By: #### P HEP, HIVCMB #### [address] [address] Medication Specialist: Antonino Nova MD #### BMPCMP, BMP, CBC #### [address] [place] [address] Medication Specialist: Merlin Charles MD Leukocyte esterase Test strip Ql (U) LARGE Abnormal NEG [facility] Comment on above: Performed By: #### P HEP, HIVCMB #### [address] [address] Medication Specialist: Antonino Nova MD #### BMPCMP, BMP, CBC #### [address] [place] [address] Medication Specialist: Merlin Charles MD Nitrite,Ur Negative Normal NEG [facility] Comment on above: Performed By: #### P HEP, HIVCMB #### [address] [address] Medication Specialist: Antonino Nova MD #### BMPCMP, BMP, CBC #### [address] [place] [id number] Medication Specialist: Merlin Charles MD PH,Ur 6.0 Normal 5.0-9.0 [facility] Comment on above: Performed By: #### P HEP, HIVCMB #### [address] [address] Medication Specialist: Antonino Nova MD #### BMPCMP, BMP, CBC #### [facility] [address] [place] [address] [place] [id number] Medication Specialist: Merlin Charles MD Protein Ql (U) Negative Normal NEG [facility] Comment on above: Performed By: #### P HEP, HIVCMB #### [address] [address] Medication Specialist: Antonino Nova MD #### BMPCMP, BMP, CBC #### [address] [place], [place] 4222783 Medication Specialist: Merlin Charles MD Spec. Anselmo,Ur 1.025 High 1.010-1.020 [facility] Comment on above: Performed By: #### P HEP, HIVCMB #### [address] [address] Medication Specialist: Antonino Nova MD #### BMPCMP, BMP, CBC #### [address] [place], [place] 8[address]83 Medication Specialist: Merlin Charles MD Urobilinogen,Ur Normal Normal 0.0-1.0 [facility] Comment on above: Performed By: #### P HEP, HIVCMB #### [address] [address] Medication Specialist: Antonino Nova MD #### BMPCMP, BMP, CBC #### [address] [place], [place] 4107883 Medication Specialist: Merlin Charles MD Urinalysis,Microon 3 Bacteria 3+ Abnormal NONE [facility] Comment on above: Performed By: #### P HEP, HIVCMB #### [address] [address] Medication Specialist: Antonino Nova MD #### BMPCMP, BMP, CBC #### [address] [place], [place] 2690783 Medication Specialist: Merlin Charles MD Epithelial cells LM Ql (Urine sed) 0 TO 2 Normal 0-25 [facility] Comment on above: Performed By: #### P HEP, HIVCMB #### [address] [address] Medication Specialist: Antonino Nova MD #### BMPCMP, BMP, CBC #### [address] [place] [address] Medication Specialist: Merlin Charles MD Urine RBC's 0 TO 2 Normal 0-2 [facility] Comment on above: Performed By: #### P HEP, HIVCMB #### [address] [place], [place] 2930608 Medication Specialist: Antonino Nova MD #### BMPCMP, BMP, CBC #### [address] [place], [place] 9493083 Medication Specialist: Merlin Charles MD Urine WBC's 10 TO 20 Normal 0-5 [facility] Comment on above: Performed By: #### P HEP, HIVCMB #### [address] [id number] Medication Specialist: Antonino Nova MD #### BMPCMP, BMP, CBC #### [address] [place] [id number] Medication Specialist: Merlin Charles MD Cult,Urineon 09-24-2022 Cult,Urine Specimen Description .VOIDED URINE Culture ESCHERICHIA COLI >[id number] CFU/ML STREPTOCOCCI, BETA HEMOLYTIC GROUP B >313906 CFU/ML Report Status FINAL 09/24/2022 SUSCEPTIBILITY Organism [...] Tobramycin <=1 SUSCEPTIBLE Trimethoprim/Sulfa <=20 SUSCEPTIBLE Susceptible [facility] Comment on above: Performed By: #### U RC #### [address] [id number] Medication Specialist: Antonino Nova MD [address] [place] [address] Medication Specialist: Merlin Charles MD Chlamydia/GC,DNA Ampon 09-23 Chlamydia Probe Negative [facility] Comment on above: Result Comment: CHLA [...] Performed By: #### U ANKITA, UA #### [address] [place] [address] Medication Specialist: Merlin Charles MD #### SWCGP #### [address] [address] Medication Specialist: Antonino Nova MD Gonorrhea Probe Negative [facility] Comment on above: Result Comment: NEIS [...] Performed By: #### U ANKITA, UA #### [address] [place] [address] Medication Specialist: Merlin Charles MD #### SWCGP #### [address] [place] [address] Medication Specialist: Antonino Nova MD Trichomonas/Wet Prepon 09-22 Trichomonas/Wet Prep Specimen Descriptio n .VAGINAL SPECIMEN Direct Exam NO YEAST OBSERVED NO TRICHOMONAS SEEN NO CLUE CELLS SEEN Report Status FINAL 09/22/2022 [facility] Comment on above: Performed By: #### P HEP, HIVCMB #### [facility] [address] [place] [address] Medication Specialist: Antonino Nova MD #### BMPCMP, BMP, CBC #### [address] [place] [address] Medication Specialist: Merlin Charles MD Urinalysis, Routineon 2022 Bilirubin, SemiQt,Ur Negative Normal NEG [facility] Comment on above: Performed By: #### U MICAO, UA #### [facility] [address] [place] [address] [place], [place] [id number] Medication Specialist: Merlin Charles MD #### SWCGP #### [address] [address] Medication Specialist: Antonino Nova MD Blood, Urine Negative Normal NEG [facility] Comment on above: Performed By: #### U MICAO, UA #### [address] [place], [place] 6900083 Medication Specialist: Merlin Charles MD #### SWCGP #### [address] [address] Medication Specialist: Antonino Nova MD Clarity (U) Cloudy Abnormal CLEAR [facility] Comment on above: Performed By: #### U MICAO, UA #### [facility] [address] [place] [address] [place], [place] [id number] Medication Specialist: Merlin Charles MD #### SWCGP #### [address] [address] Medication Specialist: Antonino Nova MD Color (U) Yellow Normal YEL [facility] Comment on above: Performed By: #### U MICAO, UA #### [facility] [address] [place] [address] [place], [place] [id number] Medication Specialist: Merlin Charles MD #### SWCGP #### [address] [address] Medication Specialist: Antonino Nova MD Glucose Ql (U) Negative Normal NEG [facility] Comment on above: Performed By: #### U MICAO, UA #### [facility] [address] [place] [address] Dr. [place], [place] 2269283 Medication Specialist: Merlin Charles MD #### SWCGP #### [address] [address] Medication Specialist: Antonino Nova MD Ketones Ql (U) Negative Normal NEG [facility] Comment on above: Performed By: #### U MICAO, UA #### [address] [place], [place] 5400483 Medication Specialist: Merlin Charles MD #### SWCGP #### [address] [address] Medication Specialist: Antonino Nova MD Leukocyte esterase Test strip Ql (U) MODERATE Abnormal NEG [facility] Comment on above: Performed By: #### U KIMO, UA #### [address] [place], [place] 2613783 Medication Specialist: Merlin Charles MD #### SWEthanGP #### [address] [address] Medication Specialist: Antonino Nova MD Nitrite,Ur Positive Abnormal NEG [facility] Comment on above: Performed By: #### U MICAO, UA #### [address] [place], [place] 8758483 Medication Specialist: Merlin Charles MD #### SWCGP #### [address] [address] Medication Specialist: Antonino Nova MD PH,Ur 6.0 Normal 5.0-9.0 [facility] Comment on above: Performed By: #### U MICAO, UA #### [facility] [address] [place], [place] [id number] Medication Specialist: Merlin Charles MD #### SWCGP #### [address] [address] Medication Specialist: Antonino Nova MD Protein Ql (U) Negative Normal NEG [facility] Comment on above: Performed By: #### U MICAO, UA #### [facility] [address] [place] [address] Medication Specialist: Merlin Charles MD #### SWCGP #### [address] [address] Medication Specialist: Antonino Nova MD Spec. Anselmo,Ur 1.025 High 1.010-1.020 [facility] Comment on above: Performed By: #### U MICAO, UA #### [address] [place] [address] Medication Specialist: Merlin Charles MD #### SWCGP #### [address] [address] Medication Specialist: Antonino Nova MD Urobilinogen,Ur Normal Normal NORM [facility] Comment on above: Performed By: #### U MICAO, UA #### [facility] [address] [place] [address] [place] [address] Medication Specialist: Merlin Charles MD #### SWCGP #### [address] [address] Medication Specialist: Antonino Nova MD Urinalysis,Microon 3 Bacteria 3+ Abnormal NONE [facility] Comment on above: Performed By: #### U MICAO, UA #### [facility] [address] [place], [place] [phone] Medication Specialist: Merlin Charles MD #### SWCGP #### [address] [place], [place] 9669608 Medication Specialist: Antonino Nova MD Epithelial cells LM Ql (Urine sed) 0 TO 2 Normal 0-25 [facility] Comment on above: Performed By: #### U MICAO, UA #### [facility] [address] [place] [address] Dr. [place], [place] 5349683 Medication Specialist: Merlin Charles MD #### SWCGP #### [address] 0148308 Medication Specialist: Antonino Nova MD Mucus Strands 1+ Abnormal NONE [facility] Comment on above: Performed By: #### U MICAO, UA #### [facility] [address] [place] [address] Dr. [place], [place] 6942983 Medication Specialist: Merlin Charles MD #### SWCGP #### [address] [address] Medication Specialist: Antonino Nova MD Urine RBC's 0 TO 2 Normal 0-2 [facility] Comment on above: Performed By: #### U MICAO, UA #### [facility] [address] [place] [address] [place], [place] 1827283 Medication Specialist: Merlin Charles MD #### SWCGP #### [address] [address] Medication Specialist: Antonino Nova MD Urine WBC's 10 TO 20 Normal 0-5 [facility] Comment on above: Performed By: #### U MICAO, UA #### [facility] [address] [place] [address] Dr[place], [place] [id number] Medication Specialist: Merlin Charles MD #### SWCGP #### [address] [place] [address] Medication Specialist: Antonino Nova MD HCV RNA,Quant,PCRon 09-15-19 23 HCV Quant [id number] IU/mL Normal [facility] Comment on above: Performed By: #### H CVQN #### [address] [place] [address] Medication Specialist: Antonino Nova MD [facility] [address] [place] [address] Dr. [place], [place] 7798783 Medication Specialist: Merlin Charles MD HCV RNA,Quant Detected Abnormal NOTDET [facility] Comment on above: Result Comment: [...] (HCT/P). Performed By: #### H CVQN #### [address] [address] Medication Specialist: Antonino Nova MD [facility] [address] [place] [address] [place] [address] Medication Specialist: Merlin Charles MD HCV,RNA Log 6.95 Log IU/mL [facility] Comment on above: Performed By: #### H CVQN #### [address] [address] Medication Specialist: Antonino Nova MD [address] [place] [id number] Medication Specialist: Merlin Charles MD CBCon 09-13-2022 Erythrocyte distribution width (RBC) [Ratio] 17.7 % High 11.8-14.4 [facility] Comment on above: Performed By: #### P HEP, HIVCMB #### [address] [address] Medication Specialist: Antonino Nova MD #### BMPCMP, BMP, CBC #### [address] [place] [address] Medication Specialist: Merlin Charles MD Hematocrit (Bld) [Volume fraction] 39.8 % Normal 36.3-47.1 [facility] Comment on above: Performed By: #### P HEP, HIVCMB #### [address] [id number] Medication Specialist: Antonino Nova MD #### BMPCMP, BMP, CBC #### [address] [place] [address] Medication Specialist: Merlin Charles MD Hemoglobin (Bld) [Mass/Vol] 13.5 g/dL Normal 11.9-15.1 [facility] Comment on above: Performed By: #### P HEP, HIVCMB #### [address] [id number] Medication Specialist: Antonino Nova MD #### BMPCMP, BMP, CBC #### [address] [place] [address] Medication Specialist: Merlin Charles MD MCH (RBC) [Entitic mass] 35.6 pg High 25.2-33.5 [facility] Comment on above: Performed By: #### P HEP, HIVCMB #### [address] [id number] Medication Specialist: Antonino Nova MD #### BMPCMP, BMP, CBC #### [address] [place] [address] Medication Specialist: Merlin Charles MD MCHC (RBC) [Mass/Vol] 33.9 g/dL Normal 28.4-34.8 [facility] Comment on above: Performed By: #### P HEP, HIVCMB #### [address] [id number] Medication Specialist: Antonino Nova MD #### BMPCMP, BMP, CBC #### [address] [place] [id number] Medication Specialist: Merlin Charles MD MCV (RBC) [Entitic vol] 105.0 fL High 82.6-102.9 [facility] Comment on above: Performed By: #### P HEP, HIVCMB #### [place] [id number] Medication Specialist: Antonino Nova MD #### BMPCMP, BMP, CBC #### [address] [place] [phone] Medication Specialist: Merlin Charles MD NRBC Automated 0.0 per 100 WBC Normal 0.0 [facility] Comment on above: Performed By: #### P HEP, HIVCMB #### [place] [id number] Medication Specialist: Antonino Nova MD #### BMPCMP, BMP, CBC #### [address] [place] [address] Medication Specialist: Merlin Charles MD Platelet mean volume (Bld) [Entitic vol] 10.2 fL Normal 8.1-13.5 [facility] Comment on above: Performed By: #### P HEP, HIVCMB #### [address] [id number] Medication Specialist: Antonino Nova MD #### BMPCMP, BMP, CBC #### [address] [place] [address] Medication Specialist: Merlin Charles MD Platelets (Bld) [#/Vol] 128 10*3/uL Low 138-453 [facility] Comment on above: Performed By: #### P HEP, HIVCMB #### [address] [id number] Medication Specialist: Antonino Nova MD #### BMPCMP, BMP, CBC #### [address] [place] [address] Medication Specialist: Merlin Charles MD RBC (Bld) [#/Vol] 3.79 10*6/uL Low 3.95-5.11 [facility] Comment on above: Performed By: #### P HEP, HIVCMB #### [address] [address] Medication Specialist: Antonino Nova MD #### BMPCMP, BMP, CBC #### [address] [place] [address] Medication Specialist: Merlin Charles MD WBC (Bld) [#/Vol] 3.7 10*3/uL Normal 3.5-11.3 [facility] Comment on above: Performed By: #### P HEP, HIVCMB #### [address] [address] Medication Specialist: Antonino Nova MD #### BMPCMP, BMP, CBC #### [address] [place] [address] Medication Specialist: Merlin Charles MD Hematocrit (Bld) [Volume fraction] 39.8 % 36.3 - 47.1 % [facility] Hemoglobin (Bld) [Mass/Vol] 13.5 g/dL 11.9 - 15.1 g/dL [facility] Interpretation and review of laboratory results Abnormal [facility] MCH (RBC) [Entitic mass] 35.6 pg High 25.2 - 33.5 pg [facility] MCHC (RBC) [Mass/Vol] 33.9 g/dL 28.4 - 34.8 g/dL [facility] MCV (RBC) [Entitic vol] 105.0 fL High 82.6 - 102.9 fL [facility] NRBC Automated 0.0 0.0 per 100 WBC [facility] Platelet distribution width (Bld) [Ratio] 17.7 % High 11.8 - 14.4 % [facility] Platelet mean volume (Bld) [Entitic vol] 10.2 fL 8.1 - 13.5 fL [facility] Platelets (Bld) [#/Vol] 128 10*3/uL Low [facility] RBC (Bld) [#/Vol] 3.79 10*6/uL Low 3.95 - 5.1 1 m/uL [facility] WBC (Bld) [#/Vol] 3.7 10*3/uL [facility] Comp Metabolic Profon 2022 Albumin [Mass/Vol] 4.1 g/dL Normal 3.5-5.2 [facility] Comment on above: Performed By: #### P HEP, HIVCMB #### [facility] [address] [place], [place] [phone] Medication Specialist: Antonino Nova MD #### BMPCMP, BMP, CBC #### [facility] [address] [place] [address] Medication Specialist: Merlin Charles MD Albumin/Glob Ratio 2.1 Normal 1.0-2.5 [facility] Comment on above: Performed By: #### P HEP, HIVCMB #### [facility] [address] [place], [place] [id number] Medication Specialist: Antonino Nova MD #### BMPCMP, BMP, CBC #### [facility] [address] [place], [place] [phone] Medication Specialist: Merlin Charles MD Alkaline Phos 67 U/L Normal 35-104 [facility] Comment on above: Performed By: #### P HEP, HIVCMB #### [place] [address]382 [place] [address] Medication Specialist: Antonino Nova MD #### BMPCMP, BMP, CBC #### [facility] [address] [place], [place] [id number] Medication Specialist: Merlin Charles MD ALT [Catalytic activity/Vol] 41 U/L High 5-33 [facility] Comment on above: Performed By: #### P HEP, HIVCMB #### [address] [address] Medication Specialist: Antonino Nova MD #### BMPCMP, BMP, CBC #### [address] [place], [place] [id number] Medication Specialist: Merlin Charles MD Anion gap [Moles/Vol] 6 mmol/L Low 9-17 [facility] Comment on above: Performed By: #### P HEP, HIVCMB #### [address] [address] Medication Specialist: Antonino Nova MD #### BMPCMP, BMP, CBC #### [address] [place], [place] [id number] Medication Specialist: Merlin Charles MD AST [Catalytic activity/Vol] 52 U/L High <32 [facility] Comment on above: Performed By: #### P HEP, HIVCMB #### [address] [address] Medication Specialist: Antonino Nova MD #### BMPCMP, BMP, CBC #### [address] [place], [place] [phone] Medication Specialist: Merlin Charles MD Bilirubin [Mass/Vol] 0.6 mg/dL Normal 0.3-1.2 [facility] Comment on above: Performed By: #### P HEP, HIVCMB #### [address] [address] Medication Specialist: Antonino Nova MD #### BMPCMP, BMP, CBC #### [facility] [address] [place], [place] [id number] Medication Specialist: Merlin Charles MD BUN/CRE Ratio 16 Normal 9-20 [facility] Comment on above: Performed By: #### P HEP, HIVCMB #### [address] [address] Medication Specialist: Antonino Nova MD #### BMPCMP, BMP, CBC #### [address] [place], [place] 9001583 Medication Specialist: Merlin Charles MD Calcium [Mass/Vol] 10.0 mg/dL Normal 8.6-10.4 [facility] Comment on above: Performed By: #### P HEP, HIVCMB #### [address] [address] Medication Specialist: Antonino Nova MD #### BMPCMP, BMP, CBC #### [address] [place], [place] 1106283 Medication Specialist: Merlin Charles MD Chloride [Moles/Vol] 108 mmol/L High 98-107 [facility] Comment on above: Performed By: #### P HEP, HIVCMB #### [address] [address] Medication Specialist: Antonino Nova MD #### BMPCMP, BMP, CBC #### [address] [place], [place] 9984983 Medication Specialist: Merlin Charles MD CO2 [Moles/Vol] 28 mmol/L Normal 20-31 [facility] Comment on above: Performed By: #### P HEP, HIVCMB #### [place] [address] [place], [place] 1144608 Medication Specialist: Antonino Nova MD #### BMPCMP, BMP, CBC #### [address] [place], [place] [phone] Medication Specialist: Merlin Charles MD Creatinine [Mass/Vol] 0.61 mg/dL Normal 0.50-0.90 [facility] Comment on above: Performed By: #### P HEP, HIVCMB #### [address] [id number] Medication Specialist: Antonino Nova MD #### BMPCMP, BMP, CBC #### [address] [place] [address] Medication Specialist: Merlin Charles MD GFR/1.73 sq M.predicted among non-blacks MDRD (S/P/Bld) [Vol rate/Area] mL/min/{1.73_m2} Normal >60 [facility] Comment on above: Result Comment: These [...] Performed By: #### P HEP, HIVCMB #### [address] [address] Medication Specialist: Antonino Nova MD #### BMPCMP, BMP, CBC #### [address] [place] [id number] Medication Specialist: Merlin Charles MD Glucose [Mass/Vol] 87 mg/dL Normal 70-99 [facility] Comment on above: Performed By: #### P HEP, HIVCMB #### [address] [address] Medication Specialist: Antonino Nova MD #### BMPCMP, BMP, CBC #### [address] [place], [place] 1460083 Medication Specialist: Merlin Charles MD Potassium [Moles/Vol] 5.0 mmol/L Normal 3.7-5.3 [facility] Comment on above: Performed By: #### P HEP, HIVCMB #### [address] [address] Medication Specialist: Antonino Nova MD #### BMPCMP, BMP, CBC #### [address] [place] [phone] Medication Specialist: Merlin Charles MD Protein [Mass/Vol] 6.1 g/dL Low 6.4-8.3 [facility] Comment on above: Performed By: #### P HEP, HIVCMB #### [address] [address] Medication Specialist: Antonino Nova MD #### BMPCMP, BMP, CBC #### [address] [place], [place] [phone] Medication Specialist: Merlin Charles MD Sodium [Moles/Vol] 142 mmol/L Normal 135-144 [facility] Comment on above: Performed By: #### P HEP, HIVCMB #### [address] [address] Medication Specialist: Antonino Nova MD #### BMPCMP, BMP, CBC #### [address] [place] [address] Medication Specialist: Merlin Charles MD Urea nitrogen [Mass/Vol] 10 mg/dL Normal 6-20 [facility] Comment on above: Performed By: #### P HEP, HIVCMB #### [facility] [address] [place], [place] 0453108 Medication Specialist: Antonino Nova MD #### BMPCMP, BMP, CBC #### [facility] [address] [place] [address] Medication Specialist: Merlin Charles MD Comprehensive Metabolic Pane elvin 09-13-2022 Albumin [Mass/Vol] 4.1 g/dL 3.5 - 5.2 g/dL [facility] Albumin/Globulin [Mass ratio] 2.1 {ratio} 1.0 - 2.5 [facility] ALP [Catalytic activity/Vol] 67 U/L 35 - 104 U/L [facility] ALT [Catalytic activity/Vol] 41 U/L High 5 - 33 U/L [facility] Anion gap [Moles/Vol] 6 mmol/L Low 9 - 17 mmol/L [facility] AST [Catalytic activity/Vol] 52 U/L High NINF - 32 U/L [facility] Bilirubin [Mass/Vol] 0.6 mg/dL 0.3 - 1 .2 mg/dL [facility] Calcium [Mass/Vol] 10.0 mg/dL 8.6 - 10. 4 mg/dL [facility] Chloride [Moles/Vol] 108 mmol/L High 98 - 10 7 mmol/L [facility] CO2 [Moles/Vol] 28 mmol/L 20 - 31 mmol/L [facility] Creatinine [Mass/Vol] 0.61 mg/dL 0.50 - 0.90 mg/dL [facility] GFR/1.73 sq M.predicted MDRD (S/P/Bld) [Vol rate/Area] - PINF [facility] Comment on above: These results are [...] [Mass/Vol] 87 mg/dL 70 - 99 mg/dL [facility] Interpretation and review of laboratory results Abnormal [facility] Potassium [Moles/Vol] 5.0 mmol/L 3.7 - 5.3 mmol/L [facility] Protein [Mass/Vol] 6.1 g/dL Low 6.4 - 8.3 g/dL [facility] Sodium [Moles/Vol] 142 mmol/L 135 - 144 mmol/L [facility] Urea nitrogen [Mass/Vol] 10 mg/dL 6 - 20 mg/dL [facility] Urea nitrogen/Creatinine (Bld) [Mass ratio] 16 9 - 20 [facility] HCG Qualitative, Serumon hCG Qual Negative NEGATIVE [facility] Comment on above: Specimens with hCG l evels near the threshold of the test (25 mIU/mL) may give a negative or indeterminate result. In such cases, another test should be performed with a new specimen in 48-72 hours. If early is suspected clinically in this setting, correlation with quantitative serum b-hCG level is suggested. [employer] has confirmed the use of plasma for this test. This has not been cleared or approved by the U.[place]. Food and Drug Administration. The FDA has determined that such clearance is not necessary. [facility] HCG Screen, Bloodon 09-14-19 HCG Screen, Blood Negative Normal [facility] Comment on above: Result Comment: Spec imens with hCG levels near the threshold of the test (25 mIU/mL) may give a negative or indeterminate result. In such cases, another test should be performed with a new specimen in 48-72 hours. If early is suspected clinically in this setting, correlation with quantitative serum b-hCG level is suggested. [employer] has confirmed the use of plasma for this test. This has not been cleared or approved by the U.S. Food and Drug Administration. The FDA has determined that such clearance is not necessary. Performed By: #### P HEP, HIVCMB #### [address] [address] Medication Specialist: Antonino Nova MD #### BMPCMP, BMP, CBC #### [facility] [address] [place] [address] Dr. [place], [place] [phone] Medication Specialist: Merlin Charles MD HCV RNA,Quant,PCRon 09-14-19 23 Source .PLASMA Normal [facility] Comment on above: Performed By: #### H CVQN #### [address] [address] Medication Specialist: Antonino Nova MD [address] [place] [address] Medication Specialist: Merlin Charles MD HIV Ag/Abon 09-13-2022 HIV Ag/Ab Non-Reactive Normal [facility] Comment on above: Result Comment: No l aboratory evidence of HIV infection. If acute HIV infection is suspected, consider testing for HIV-1 RNA. Performed By: #### P HEP, HIVCMB #### [address] [address] Medication Specialist: Antonino Nova MD #### BMPCMP, BMP, CBC #### [address] [place], [place] [id number] Medication Specialist: Merlin Charles MD HIV Screenon 09-13-2022 HIV 1+2 Ab+HIV1 p24 Ag IA Ql Non-Reactive NONREACTIVE [facility] Comment on above: No laboratory eviden ce of HIV infection. If acute HIV infection is suspected, consider testing for HIV-1 RNA. [facility] Hepatitis Acute Jonnie 09-13 Hep A Ab,IgM Non-Reactive Normal NR [facility] Comment on above: Performed By: #### P HEP, HIVCMB #### [address] [address] Medication Specialist: Antonino Nova MD #### BMPCMP, BMP, CBC #### [facility] [address] [place] [address] Dr. [place], [place] 8506983 Medication Specialist: Merlin Charles MD Hep B Core Ab,IgM Non-Reactive Normal [facility] Comment on above: Performed By: #### P HEP, HIVCMB #### [address] [address] Medication Specialist: Antonino Nova MD #### BMPCMP, BMP, CBC #### [address] [place], [place] 3983183 Medication Specialist: Merlin Charles MD Hep B Surf Ag Non-Reactive Normal [facility] Comment on above: Performed By: #### P HEP, HIVCMB #### [address] [address] Medication Specialist: Antonino Nova MD #### BMPCMP, BMP, CBC #### [address] [place], [place] [id number] Medication Specialist: Merlin Charles MD Hep C Ab Reactive Abnormal [facility] Comment on above: Result Comment: The [...] Performed By: #### P HEP, HIVCMB #### [address] [address] Medication Specialist: Antonino Nova MD #### BMPCMP, BMP, CBC #### [address] [place], [place] [id number] Medication Specialist: Merlin Charles MD Hepatitis Panel, Acuteon HAV IgM Ql (S) Non-Reactive NONREACTIVE [facility] HBV core IgM Ql (S) Non-Reactive NONREACTIVE [facility] HBV surface Ag IA Ql Non-Reactive NONREACTIVE [facility] HCV Ab IA Ql Reactive Abnormal NONREACTIVE [facility] Comment on above: The hepatitis C [...] Interpretation and review of laboratory results Abnormal [facility] Comp Metabolic Addonon 04-20 Albumin [Mass/Vol] 4.5 g/dL Normal 3.5-5.2 [facility] Comment on above: Performed By: #### P HEP, HIVCMB #### [address] [address] Medication Specialist: Antonino Nova MD #### BMPCMP, BMP, CBC #### [facility] [address] [place] [address] [place] [address] Medication Specialist: Merlin Charles MD Albumin/Glob Ratio 2.0 Normal 1.0-2.5 [facility] Comment on above: Performed By: #### P HEP, HIVCMB #### [address] [address] Medication Specialist: Antonino Nova MD #### BMPCMP, BMP, CBC #### [facility] [address] [place] [address] [place] [address] Medication Specialist: Merlin Charles MD Alkaline Phos 81 U/L Normal 35-104 [facility] Comment on above: Performed By: #### P HEP, HIVCMB #### [address] [address] Medication Specialist: Antonino Nova MD #### BMPCMP, BMP, CBC #### [facility] [address] [place] [address] Medication Specialist: Merlin Charles MD ALT [Catalytic activity/Vol] 106 U/L High 5-33 [facility] Comment on above: Performed By: #### P HEP, HIVCMB #### [address] [id number] Medication Specialist: Antonino Nova MD #### BMPCMP, BMP, CBC #### [facility] [address] [place] [address] Medication Specialist: Merlin Charles MD AST [Catalytic activity/Vol] 77 U/L High <32 [facility] Comment on above: Performed By: #### P HEP, HIVCMB #### [address] [id number] Medication Specialist: Antonino Nova MD #### BMPCMP, BMP, CBC #### [facility] [address] [place] [address] Medication Specialist: Merlin Charles MD Bilirubin [Mass/Vol] 0.6 mg/dL Normal 0.3-1.2 [facility] Comment on above: Performed By: #### P HEP, HIVCMB #### [address] [id number] Medication Specialist: Antonino Nova MD #### BMPCMP, BMP, CBC #### [facility] [address] [place] [address] Medication Specialist: Merlin Charles MD Protein [Mass/Vol] 6.7 g/dL Normal 6.4-8.3 [facility] Comment on above: Performed By: #### P HEP, HIVCMB #### [address] [id number] Medication Specialist: Antonino Nova MD #### BMPCMP, BMP, CBC #### [facility] [address] [place] [address] Medication Specialist: Merlin Charles MD HCV RNA,Quant,PCRon 04-20-20 HCV Quant 1,330,000 IU/mL Normal [facility] Comment on above: Performed By: #### P HEP, HIVCMB #### [address] [address] Medication Specialist: Antonino Nova MD #### BMPCMP, BMP, CBC #### [facility] [address] [place] [address] Medication Specialist: Merlin Charles MD HCV RNA,Quant Detected Abnormal NOTDET [facility] Comment on above: Result Comment: [...] Performed By: #### P HEP, HIVCMB #### [address] [address] Medication Specialist: Antonino Nova MD #### BMPCMP, BMP, CBC #### [facility] [address] [place] [address] Medication Specialist: Merlin Charles MD HCV,RNA Log 6.12 Log IU/mL Normal [facility] Comment on above: Performed By: #### P HEP, HIVCMB #### [address] [address] Medication Specialist: Antonino Nova MD #### BMPCMP, BMP, CBC #### [facility] [address] [place] [address] Medication Specialist: Merlin Charles MD Basic Metabolic Profon 04-19 Anion gap [Moles/Vol] 7 mmol/L Low 9-17 [facility] Comment on above: Performed By: #### P HEP, HIVCMB #### [address] [address] Medication Specialist: Antonino Nova MD #### BMPCMP, BMP, CBC #### [address] [place] [address] Medication Specialist: Merlin Charles MD BUN/CRE Ratio 20 Normal 9-20 [facility] Comment on above: Performed By: #### P HEP, HIVCMB #### [address] [address] Medication Specialist: Antonino Nova MD #### BMPCMP, BMP, CBC #### [address] [place] [address] Medication Specialist: Merlin Charles MD Calcium [Mass/Vol] 9.9 mg/dL Normal 8.6-10.4 [facility] Comment on above: Performed By: #### P HEP, HIVCMB #### [address] [address] Medication Specialist: Antonino Nova MD #### BMPCMP, BMP, CBC #### [facility] [address] [place] [address] [place] [address] Medication Specialist: Merlin Charles MD Chloride [Moles/Vol] 106 mmol/L Normal 98-107 [facility] Comment on above: Performed By: #### P HEP, HIVCMB #### [address] [address] Medication Specialist: Antonino Nova MD #### BMPCMP, BMP, CBC #### [facility] [address] [place] [address] Medication Specialist: Merlin Charles MD CO2 [Moles/Vol] 29 mmol/L Normal 20-31 [facility] Comment on above: Performed By: #### P HEP, HIVCMB #### [address] [id number] Medication Specialist: Antonino Nova MD #### BMPCMP, BMP, CBC #### [facility] [address] [place] [address] Medication Specialist: Merlin Charles MD Creatinine [Mass/Vol] 0.79 mg/dL Normal 0.50-0.90 [facility] Comment on above: Performed By: #### P HEP, HIVCMB #### [address] [id number] Medication Specialist: Antonino Nova MD #### BMPCMP, BMP, CBC #### [address] [place] [address] Medication Specialist: Merlin Charles MD GFR/1.73 sq M.predicted among non-blacks MDRD (S/P/Bld) [Vol rate/Area] mL/min/{1.73_m2} Normal >60 [facility] Comment on above: Result Comment: Effective [...] Performed By: #### P HEP, HIVCMB #### [address] [id number] Medication Specialist: Antonino Nova MD #### BMPCMP, BMP, CBC #### [facility] [address] [place] [address] [place] [address] Medication Specialist: Merlin Charles MD Glucose [Mass/Vol] 98 mg/dL Normal 70-99 [facility] Comment on above: Performed By: #### P HEP, HIVCMB #### [address] [address] Medication Specialist: Antonino Nova MD #### BMPCMP, BMP, CBC #### [address] [place] [phone] Medication Specialist: Merlin Charles MD Potassium [Moles/Vol] 4.6 mmol/L Normal 3.7-5.3 [facility] Comment on above: Performed By: #### P HEP, HIVCMB #### [address] [id number] Medication Specialist: Antonino Nova MD #### BMPCMP, BMP, CBC #### [address] [place] [address] Medication Specialist: Merlin Charles MD Sodium [Moles/Vol] 142 mmol/L Normal 135-144 [facility] Comment on above: Performed By: #### P HEP, HIVCMB #### [address] [address] Medication Specialist: Antonino Nova MD #### BMPCMP, BMP, CBC #### [facility] [address] [place] [address] [place] [address] Medication Specialist: Merlin Charles MD Urea nitrogen [Mass/Vol] 16 mg/dL Normal 6-20 [facility] Comment on above: Performed By: #### P HEP, HIVCMB #### [address] [address] Medication Specialist: Antonino Nova MD #### BMPCMP, BMP, CBC #### [address] [place] [address] Medication Specialist: Merlin Charles MD CBC 04-19-2022 Erythrocyte distribution width (RBC) [Ratio] 15.2 % High 11.8-14.4 [facility] Comment on above: Performed By: #### P HEP, HIVCMB #### [address] [id number] Medication Specialist: Antonino Nova MD #### BMPCMP, BMP, CBC #### [address] [place] [address] Medication Specialist: Merlin Charles MD Hematocrit (Bld) [Volume fraction] 41.4 % Normal 36.3-47.1 [facility] Comment on above: Performed By: #### P HEP, HIVCMB #### [address] [id number] Medication Specialist: Antonino Nova MD #### BMPCMP, BMP, CBC #### [address] [place] [id number] Medication Specialist: Merlin Charles MD Hemoglobin (Bld) [Mass/Vol] 13.3 g/dL Normal 11.9-15.1 [facility] Comment on above: Performed By: #### P HEP, HIVCMB #### [address] [address] Medication Specialist: Antonino Nova MD #### BMPCMP, BMP, CBC #### [address] [place] [address] Medication Specialist: Merlin Charles MD MCH (RBC) [Entitic mass] 33.8 pg High 25.2-33.5 [facility] Comment on above: Performed By: #### P HEP, HIVCMB #### [address] [address] Medication Specialist: Antonino Nova MD #### BMPCMP, BMP, CBC #### [address] [place] [phone] Medication Specialist: Merlin Charles MD MCHC (RBC) [Mass/Vol] 32.1 g/dL Normal 28.4-34.8 [facility] Comment on above: Performed By: #### P HEP, HIVCMB #### [address] [address] Medication Specialist: Antonino Nova MD #### BMPCMP, BMP, CBC #### [address] [place] [id number] Medication Specialist: Mrelin Charles MD MCV (RBC) [Entitic vol] 105.3 fL High 82.6-102.9 [facility] Comment on above: Performed By: #### P HEP, HIVCMB #### [address] [address] Medication Specialist: Antonino Nova MD #### BMPCMP, BMP, CBC #### [address] [place] [id number] Medication Specialist: Merlin Charles MD NRBC Automated 0.0 per 100 WBC Normal 0.0 [facility] Comment on above: Performed By: #### P HEP, HIVCMB #### [address] [address] Medication Specialist: Antonino Nova MD #### BMPCMP, BMP, CBC #### [address] [place] [id number] Medication Specialist: Merlin Charles MD Platelet mean volume (Bld) [Entitic vol] 9.1 fL Normal 8.1-13.5 [facility] Comment on above: Performed By: #### P HEP, HIVCMB #### [address] [place] [address] Medication Specialist: Antonino Nova MD #### BMPCMP, BMP, CBC #### [facility] [address] [place] [address] [place] [address] Medication Specialist: Merlin Charles MD Platelets (Bld) [#/Vol] 203 10*3/uL Normal 138-453 [facility] Comment on above: Performed By: #### P HEP, HIVCMB #### [address] [address] Medication Specialist: Antonino Nova MD #### BMPCMP, BMP, CBC #### [address] [place] [id number] Medication Specialist: Merlin Charles MD RBC (Bld) [#/Vol] 3.93 10*6/uL Low 3.95-5.11 [facility] Comment on above: Performed By: #### P HEP, HIVCMB #### [address] [address] Medication Specialist: Antonino Nova MD #### BMPCMP, BMP, CBC #### [address] [place], [place] [id number] Medication Specialist: Merlin Charles MD WBC (Bld) [#/Vol] 4.1 10*3/uL Normal 3.5-11.3 [facility] Comment on above: Performed By: #### P HEP, HIVCMB #### [address] [address] Medication Specialist: Antonino Nova MD #### BMPCMP, BMP, CBC #### [address] [place], [place] [id number] Medication Specialist: Merlin Charles MD HCV RNA,Quant,PCRon 12-19-20 22 Source .PLASMA Normal [facility] Comment on above: Performed By: #### P HEP, HIVCMB #### [address] [address] Medication Specialist: Antonino Nova MD #### BMPCMP, BMP, CBC #### [address] [place] [address] Medication Specialist: Merlin Charles MD HIV Ag/Abon 04-19-2022 HIV Ag/Ab Non-Reactive Normal [facility] Comment on above: Result Comment: No l aboratory evidence of HIV infection. If acute HIV infection is suspected, consider testing for HIV-1 RNA. Performed By: #### P HEP, HIVCMB #### [address] [address] Medication Specialist: Antonino Nova MD #### BMPCMP, BMP, CBC #### [address] [place] [address] Medication Specialist: Merlin Charles MD Hepatitis Acute [facility] 04-19 Hep A Ab,IgM Non-Reactive Normal [facility] Comment on above: Performed By: #### P HEP, HIVCMB #### [address] [address] Medication Specialist: Antonino Nova MD #### BMPCMP, BMP, CBC #### [address] [place], [place] [id number] Medication Specialist: Merlin Charles MD Hep B Core Ab,IgM Non-Reactive Normal [facility] Comment on above: Performed By: #### P HEP, HIVCMB #### [address] [address] Medication Specialist: Antonino Nova MD #### BMPCMP, BMP, CBC #### [address] [place] [address] Medication Specialist: Merlin Charles MD Hep B Surf Ag Non-Reactive Normal [facility] Comment on above: Performed By: #### P HEP, HIVCMB #### [facility] [address] [place], [place] [id number] Medication Specialist: Antonino Nova MD #### BMPCMP, BMP, CBC #### [address] [place] [address] Medication Specialist: Merlin Chalres MD Hep C Ab Reactive Abnormal [facility] Comment on above: Result Comment: The [...] Performed By: #### P HEP, HIVCMB #### [facility] [address] [place], [place] [phone] Medication Specialist: Antonino Nova MD #### BMPCMP, BMP, CBC #### [address] [place] [address] Medication Specialist: Merlin Charles MD CBCon 11-09-2021 Hematocrit (Bld) [Volume fraction] 39.5 % 36.3 - 47.1 % [facility] Hemoglobin (Bld) [Mass/Vol] 12.6 g/dL 11.9 - 15.1 g/dL [facility] Interpretation and review of laboratory results Abnormal [facility] MCH (RBC) [Entitic mass] 32.6 pg 25.2 - 33.5 pg [facility] MCHC (RBC) [Mass/Vol] 31.9 g/dL 28.4 - 34.8 g/dL [facility] MCV (RBC) [Entitic vol] 102.3 fL 82.6 - 102.9 fL [facility] NRBC Automated 0.0 0.0 per 100 WBC [facility] Platelet distribution width (Bld) [Ratio] 14.9 % High 11.8 - 14.4 % [facility] Platelet mean volume (Bld) [Entitic vol] 9.7 fL 8.1 - 13.5 fL [facility] Platelets (Bld) [#/Vol] 175 10*3/uL [facility] RBC (Bld) [#/Vol] 3.86 10*6/uL Low 3.95 - 5.1 1 m/uL [facility] WBC (Bld) [#/Vol] 3.4 10*3/uL Low [facility] Comprehensive Metabolic Pane elvin 11-09-2021 Albumin [Mass/Vol] 4.7 g/dL 3.5 - 5.2 g/dL [facility] Albumin/Globulin [Mass ratio] 2.5 {ratio} [facility] ALP (Bld) [Catalytic activity/Vol] 76 U/L 35 - 104 U/L [facility] ALT [Catalytic activity/Vol] 50 U/L High 5 - 33 U/L [facility] Anion gap [Moles/Vol] 10 mmol/L 9 - 17 mmol/L [facility] AST [Catalytic activity/Vol] 40 U/L High <32 [facility] Bilirubin [Mass/Vol] 0.55 mg/dL 0.3 - 1 .2 mg/dL [facility] Calcium [Mass/Vol] 10.4 mg/dL 8.6 - 10. 4 mg/dL [facility] Chloride [Moles/Vol] 107 mmol/L 98 - 10 7 mmol/L [facility] CO2 [Moles/Vol] 25 mmol/L 20 - 31 mmol/L [facility] Creatinine [Mass/Vol] 0.72 mg/dL 0.50 - 0.90 mg/dL [facility] Free PSA/Total PSA [Mass fraction] 6.6 g/dL 6.4 - 8.3 g/dL [facility] GFR >60 >60 mL/min [facility] GFR Non- >60 >60 mL/min [facility] Glucose [Mass/Vol] 76 mg/dL 70 - 99 mg/dL [facility] Interpretation and review of laboratory results Abnormal [facility] Potassium [Moles/Vol] 3.9 mmol/L 3.7 - 5.3 mmol/L [facility] Sodium [Moles/Vol] 142 mmol/L 135 - 144 mmol/L [facility] Urea nitrogen (BldV) [Mass/Vol] 12 mg/dL 6 - 20 mg/dL [facility] Urea nitrogen/Creatinine (Bld) [Mass ratio] 17 [facility] HCG Qualitative, Serumon hCG Qual Negative NEGATIVE [facility] Comment on above: Specimens with hCG l evels near the threshold of the test (25 mIU/mL) may give a negative or indeterminate result. In such cases, another test should be performed with a new specimen in 48-72 hours. If early is suspected clinically in this setting, correlation with quantitative serum b-hCG level is suggested. [facility] has confirmed the use of plasma for this test. This has not been cleared or approved by the U.S. Food and Drug Administration. The FDA has determined that such clearance is not necessary. [facility] HIV Screenon 11-09-2021 HIV Ag/Ab Non-Reactive NONREACTIVE [facility] Comment on above: No laboratory eviden ce of HIV infection. If acute HIV infection is suspected, consider testing for HIV-1 RNA. [facility] Hepatitis Panel, Acuteon HAV IgM IA Qn (S) Non-Reactive NONREACTIVE [facility] Hep B Core Ab, IgM Non-Reactive NONREACTIVE [facility] Hepatitis B Surface Ag Non-Reactive NONREACTIVE [facility] Hepatitis C Ab Reactive Abnormal NONREACTIVE [facility] Comment on above: The [...] Interpretation and review of laboratory results Abnormal [facility] Laboratory - Chemistry and C hemistry - challengeon 11-09-2021 GFR/1.73 sq M.predicted MDRD (S/P/Bld) [Vol rate/Area] [facility] Comment on above: Average GFR for 20-2 9 years old: 116 mL/min/1.73sq m Chronic Kidney Disease: <60 mL/min/1.73sq m Kidney failure: <15 mL/min/1.73sq m eGFR calculated using average adult body mass. Additional eGFR calculator available at: [email or web address] [email or web address]_[email or web address].htm Stage 1: Some kidney damage normal GFR Stage 2: Mild kidney damage GFR 60-89 Stage 3: Moderate kidney damage GFR 30-59 Stage 4: Severe kidney damage GFR 15-29 Stage 5: Severe kidney damage GFR <15 ESRD - chronic treatment by dialysis or transplant Microscopic Urinalysison - [facility] Bacteria, UA 4+ Abnormal None [facility] Epithelial Cells UA 2 TO 5 [facility] Interpretation and review of laboratory results Abnormal [facility] Mucus, UA 1+ Abnormal None [facility] RBC, UA 0 TO 2 [facility] WBC, UA 20 TO 50 [facility] Urinalysis with Reflex to Cu ltureon 10-27-2021 Bilirubin Urine SMALL Abnormal NEGATIVE [facility] Color, UA Yellow Yellow [facility] Glucose, Ur Negative NEGATIVE [facility] Interpretation and review of laboratory results Abnormal [facility] Ketones Ql (U) Negative NEGATIVE [facility] Leukocyte esterase Test strip Ql (U) MODERATE Abnormal NEGATIVE [facility] Nitrite, Urine Negative NEGATIVE [facility] pH, UA 6.5 [facility] Protein, UA TRACE Abnormal NEGATIVE [facility] Specific [place], UA 1.025 High [facility] Turbidity UA SLIGHTLY CLOUDY Abnormal Clear [facility] Urine Hgb Negative NEGATIVE [facility] Urobilinogen, Urine Normal Normal [facility] Microscopic Urinalysison - [facility] Bacteria, UA 1+ Abnormal None [facility] Epithelial Cells UA 5 TO 10 [facility] Interpretation and review of laboratory results Abnormal [facility] RBC, UA 0 TO 2 [facility] WBC, UA 5 TO 10 [facility] Urinalysis with Reflex to Cu ltureon 10-07-2021 Bilirubin Urine Negative NEGATIVE [facility] [employer] Color, UA Yellow Yellow [facility] Glucose, Ur Negative NEGATIVE [facility] Interpretation and review of laboratory results Abnormal [facility] Ketones Ql (U) Negative NEGATIVE [facility] Leukocyte esterase Test strip Ql (U) MODERATE Abnormal NEGATIVE [facility] Nitrite, Urine Negative NEGATIVE [facility] pH, UA 5.5 [facility] Protein, UA Negative NEGATIVE [facility] Specific [place], UA 1.025 High [facility] Turbidity UA Clear Clear [facility] Urine Hgb Negative NEGATIVE [facility] Urobilinogen, Urine Normal Normal [facility] SEROLOGYOrdered By: Suly Raman on 07-24-2021 HCG.beta subunit (U) [Moles/Vol] Negative Normal [facility] Tobacco Screening.on 022 Adult depression screening assessment Yes [facility] [address] DO Work Phone: Tobacco use status CPHS a) Yes [facility] [place] [address] DO Work Phone: Tobacco Screening. Yes [facility] [place] [address] [place] Work Phone: Tobacco Screening. 3-Nearly every day [facility] [address] DO Work Phone: Tobacco Screening. 2-More than half the days [facility] [address] DO Work Phone: Tobacco Screening. 0-Not at all [facility] [address] DO Work Phone: Tobacco [...] by: Janine DURON Date: 2021-07-04 02:09 Normal [facility] Vital Signs Date Time Vital Sign Value Performing Clinician Facility 02-21-2024 13:38-0400 Body height 160.02 cm [facility] 02-21-2024 13:38-0400 Body mass index (BMI) [Ratio] 25.4 kg/m2 [facility] 02-21-2024 13:38-0400 Body weight 65.34 kg [facility] 02-21-2024 13:38-0400 Heart rate 68 /min [facility] 07-06-2023 15:10-0500 Body temperature 98.42 [degF] Adolfo Hernandez [facility] 07-06-2023 15:10-0500 Diastolic blood pressure 69 mm[Hg] Adolfo Hernandez [facility] 07-06-2023 15:10-0500 Heart rate 102 /min Adolfo Hernandez [facility] 07-06-2023 15:10-0500 Respiratory rate 16 /min Adolfo Hernandez [facility] 07-06-2023 15:10-0500 SaO2% (BldA) [Mass fraction] 100 % Adolfo Hernandez [facility] 07-06-2023 15:10-0500 Systolic blood pressure 100 mm[Hg] Adolfo Hernandez [facility] 07-24-2021 17:25-0400 Body temperature 96.98 [degF] Zev Hamlin [facility] 07-24-2021 17:25-0400 Heart rate 66 /min Zev Hamlin [facility] 07-24-2021 17:25-0400 Respiratory rate 110 /min Zev Hamlin [facility] 07-24-2021 17:25-0400 SaO2% (BldA) [Mass fraction] 100 % Zev Hamlin [facility] 07-24-2021 17:25-0400 Systolic blood pressure 68 mm[Hg] Zev Hamlin [facility] 07-24-2021 17:20-0400 Body temperature 97.7 [degF] Zev Hamlin [facility] 07-24-2021 17:20-0400 Diastolic blood pressure 63 mm[Hg] Zev Hamlin [facility] 07-24-2021 17:20-0400 Heart rate 65 /min Zev Hamlin [facility] 07-24-2021 17:20-0400 Respiratory rate 11 /min Zev Hamlin [facility] 07-24-2021 17:20-0400 SaO2% (BldA) [Mass fraction] 100 % Zev Hamlin [facility] 07-24-2021 17:20-0400 Systolic blood pressure 106 mm[Hg] Zev Hamlin [facility] 07-24-2021 17:05-0400 Diastolic blood pressure 70 mm[Hg] Zev Hamlin [facility] 07-24-2021 17:05-0400 Heart rate 78 /min Zev Hamlin [facility] 07-24-2021 17:05-0400 Respiratory rate 11 /min Zev Hamlin [facility] 07-24-2021 17:05-0400 SaO2% (BldA) [Mass fraction] 100 % Zev Hamlin [facility] 07-24-2021 17:05-0400 Systolic blood pressure 109 mm[Hg] Zev Hamlin [facility] 07-24-2021 17:00-0400 Diastolic blood pressure 54 mm[Hg] Zev Hamlin [facility] 07-24-2021 16:53-0400 Body temperature 97.52 [degF] Zev Hamlin [facility] 07-24-2021 11:18-0400 Blood Pressure Location Zev Hamlin [facility] 07-24-2021 11:18-0400 BP/Pulse Patient Position Zev Hamlin [facility] 07-24-2021 11:18-0400 Mean blood pressure 78 mm[Hg] Zev Hamlin [facility] 07-24-2021 11:17-0400 Blood Pressure Location Zev Hamlin [facility] 07-24-2021 11:17-0400 Body temperature 98.24 [degF] Zev Hamlin [facility] 07-24-2021 11:17-0400 BP/Pulse Patient Position Zev Hamlin [facility] 07-24-2021 11:17-0400 Mean blood pressure 84 mm[Hg] Zev Hamlin [facility] 07-24-2021 11:17-0400 Respiratory rate 16 /min Zev Hamlin [facility] 07-24-2021 11:17-0400 Heart rate 72 /min Zev Hamlin [facility] 07-09-2021 09:07-0500 Diastolic blood pressure 62 mm[Hg] No PCP None [facility] 250 DO Work Phone: 07-09-2021 09:07-0500 Systolic blood pressure 102 mm[Hg] No PCP None [facility] 250 DO Work Phone: 07-09-2021 09:01-0500 Body height 160.02 cm No PCP None [facility] 250 DO Work Phone: 07-09-2021 09:01-0500 Body mass index (BMI) [Ratio] 27.1 kg/m2 No PCP None [facility] 250 DO Work Phone: 07-09-2021 09:01-0500 Body surface area Derived from formula 1.73 m2 No PCP None [facility] 250 DO Work Phone: 07-09-2021 09:01-0500 Body weight 69.4 kg No PCP None [facility] 250 DO Work Phone: 07-09-2021 09:01-0500 Diastolic blood pressure 62 mm[Hg] No PCP None [facility] 250 DO Work Phone: 07-09-2021 09:01-0500 Heart rate 59 /min No PCP None [facility] 250 DO Work Phone: 07-09-2021 09:01-0500 Systolic blood pressure 104 mm[Hg] No PCP None [facility] 250 DO Work Phone: 07-09-2021 09:0500 18 1 No PCP None [facility] 250 DO Work Phone: Comment on above: PHQ-9 TS Encounters Encounter Date Encounter Type Care Provider Facility Start: 03-12-2024 End: 03-12-2024 Emergency department patient visit ISAIAS ADDISON [facility] Start: 02-21-2024 End: 02-21-2024 ambulatory NON STAFF [facility] Work Phone: Start: 02-21-2024 End: 02-21-2024 Patient encounter procedure [facility] Work Phone: Start: 02-09-2024 End: 02-09-2024 Lab Drop off Zev Webber [facility] Start: 02-09-2024 End: 02-09-2024 ambulatory Zev Hamlin [facility] Start: 01-14-2024 End: 01-14-2024 Emergency department patient visit NO PCP NO PCP [facility] Start: 10-24-2023 ambulatory [facility] Start: 10-23-2023 End: 10-23-2023 Emergency department patient visit NO PCP NO PCP [facility] Start: 09-08-2023 End: 09-08-2023 ambulatory NO PCP NO PCP [facility] Start: 09-08-2023 Encounter for genera l adult medical examination without abnormal findings NO NO PCP [facility] Start: 08-19-2023 End: 08-19-2023 Emergency department patient visit NO PCP NO PCP [facility] Start: 07-06-2023 End: 07-06-2023 Emergency department patient visit Adolfo Hernandez [facility] Start: 06-17-2023 End: 06-17-2023 [facility] Start: 02-16-2023 ambulatory [facility] Start: 01-19-2023 ambulatory [facility] Start: 01-06-2023 ambulatory [facility] Start: 12-10-2022 End: 12-11-2022 ambulatory [facility]ITO [facility] Start: 11-04-2022 ambulatory [facility] Start: 09-22-2022 End: 09-23-2022 ambulatory HIPOLITO Josue [facility] Start: 09-13-2022 End: 09-14-2022 ambulatory [facility] Start: 09-13-2022 End: 09-13-2022 [facility] Start: 09-10-2022 End: 09-11-2022 ambulatory HIPOLITO Josue [facility] Start: 09-10-2022 End: 09-10-2022 [facility] Start: 04-19-2022 End: 04-20-2022 ambulatory HIPOLITO Josue [facility] Start: 11-09-2021 End: 11-09-2021 Subsequent hospital visit by physician [facility] Start: 10-27-2021 End: 10-27-2021 [facility] Start: 10-06-2021 End: 10-06-2021 [facility] Start: 07-24-2021 End: 07-24-2021 Admission to same day surgery center Zev Hamlin [facility] Start: 07-09-2021 Office consultation new/estab patient 60 min No PCP None -[facility] 250 DO Work Phone: Start: 07-04-2021 End: 07-04-[address] RADHA MOE Facility: Start: 06-29-2021 End: 10-15-2021 Recurring Zev Hamlin [facility] Patient encounter status No PCP None [facility] 250 DO Work Phone: Procedures Date Procedure Procedure Detail Performing Clinician Start: 09-13-2022 Antibody hiv-1&hiv-2 single result Hipolito Mejia [employer] - MEDICAL CENTER REPRESENTATIVE Work Phone: Start: 09-13-2022 Comprehensive metabo lic panel Hipolito Mejia [employer] M[employer]INE OPERATOR - MEDICAL CENTER REPRESENTATIVE Work Phone: Start: 11-09-2021 Antibody hiv-1&hiv-2 single result Hipolito Mejia [employer] M[employer]INE OPERATOR - MEDICAL CENTER REPRESENTATIVE Work Phone: Start: 11-09-2021 Comprehensive metabo lic panel Hipolito Mejia [employer] M[employer]INE OPERATOR - MEDICAL CENTER REPRESENTATIVE Work Phone: Start: 10-27-2021 Urinalysis microscop ic only Hipolito Mejia [employer]INE OPERATOR - MEDICAL CENTER REPRESENTATIVE Work Phone: Start: 10-27-2021 Urnls dip stick/tabl et rgnt auto w/o microscopy Hipolito Mejia [employer] M[employer]INE OPERATOR - MEDICAL CENTER REPRESENTATIVE Work Phone: Start: 10-06-2021 Urinalysis microscop ic only Hipolito Mejia [employer] M[employer]INE OPERATOR - MEDICAL CENTER REPRESENTATIVE Work Phone: Start: 10-06-2021 Urnls dip stick/tabl et rgnt auto w/o microscopy Hipolito Mejia [employer] M[employer]INE OPERATOR - MEDICAL CENTER REPRESENTATIVE Work Phone: section No PCP None section [...] Treatment Date Care Activity Detail Author Start: 02-21-2024 Hepatitis A virus Ab [Presence] in Serum by Immunoassay [facility] Start: 02-21-2024 Hepatitis B core antibody measurement [facility] Start: 02-21-2024 Hepatitis B virus surface Ab [Presence] in Serum [facility] Start: 02-21-2024 [facility] Start: 11-30-2022 Influenza vaccination Flu vacc ine (Season Ended) [facility] Start: 01-06-2022 Screening for malign ant neoplasm of cervix [facility] Start: 12-31-2021 Influenza vaccination [facility] Start: 11-25-2021 FUV, Provider: Ruddy Garcia, Status: Pen, Time: 3:00 PM FUV, Provider: Ruddy Garcia, Status: Pen, Time: 3:00 PM [facility] [employer] 250 DO Work Phone: Start: 07-15-2021 ECHO, Provider: DAJA MCCURDY [facility] ULTRASOUND 01,[id number], Status: Pen, Time: 11:30 AM ECHO, Provider: MAXINE [facility] ULTRASOUND 01,[id number], Status: Pen, Time: 11:30 AM [facility] [employer] 250 DO Work Phone: Start: 07-15-2021 STRESS NUC, Provider : MAXINE [facility] NUCLEAR 01,[id number], Status: Pen, Time: 11:30 AM STRESS NUC, Provider: MAXINE [facility] NUCLEAR 01,[id number], Status: Pen, Time: 11:30 AM [facility] [employer] 250 DO Work Phone: Start: 01-06-2013 Screening for malign ant neoplasm of cervix Pap smear [facility] Start: 01-06-2011 DTaP/Tdap/Td vaccine (1 - Tdap) DTaP/Tdap/Td vaccine (1 - Tdap) [facility] Start: 01-06-2010 Hepatitis C screening Hepatitis C sc reen [facility] Start: 2004 Depression Screen Depression Screen [facility] Start: 01-06-1998 Pneumococcal 0-64 ye ars Vaccine (1 - PCV) Pneumococcal 0-64 years Vaccine (1 - PCV) [facility] Start: 01-06-1997 COVID-19 Vaccine (1) COVID-19 Vaccin e (1) [facility] Start: 01-06-1993 Varicella vaccine (1 of 2 - 2-dose childhood series) Varicella vaccine (1 of 2 - 2-dose childhood series) [facility] Start: 1992 COVID-19 Vaccine (#1) COVID-19 Vacci ne (#1) [facility] End: 10-27-2021 Culture, Urine [employer] Phone: Comment on above: Once for 1 Occurrenc es starting 10/27/2021 until 10/27/2021 Hepatitis B virus surface Ag [Presence] in Serum or Plasma by Immunoassay [facility] End: 09-13-2022 Hepatitis C RNA, quantitative, PCR [facility]: Comment on above: Once for 1 Occurrenc es starting 09/13/2022 until 09/13/2022 Hepatitis C virus Ig G Ab [Presence] in Serum or Plasma by Immunoassay [facility] Hepatitis C virus RN A [Units/volume] (viral load) in Serum or Plasma by BETZAIDA with probe detection [facility] Immunizations Immunization Date Immunization Notes Care Provider Seun marc 05-14-2012 influenza, seasonal, injectable Zev Hamlin [facility] Comment on above: Early/Late Reason: P atient Not Available/Off Unit 05-14-2012 measles, mumps and rubella virus vaccine Zev Boubacar [facility] Comment on above: Early/Late Reason: P atient Not Available/Off Unit Payers Date Payer Category Payer Self-pay [id number] 2023 Private Health Insurance [id number] 2020 Unknown [id number] 2019 Unknown [id number] 1.2.840.922490.1.13.239.2. 7.3.101412.315 1992 Unknown [id number] 2.16.840.1.389520.3.579.2. 593 1992 Unknown [id number] 2.16.840.1.481046.3.579.2. 173 1992 Unknown [id number] 2.16.840.1.706270.3.579.2. 173 1992 Unknown [id number] 2.16.840.1.631827.3.579.2. 173 1992 Unknown [id number] 2.16.840.1.968873.3.579.2. 173 1992 Unknown [id number] 2.16.840.1.868638.3.579.2. 173 1992 Unknown [id number] 2.16.840.1.971339.3.579.2. 983 1992 Unknown [id number] 2.16.840.1.175564.3.579.2. 983 1992 Unknown [id number] 2.16.840.1.842663.3.579.2. 983 1992 Unknown [id number] 2.16.840.1.507292.3.579.2. 983 1992 Unknown [id number] 2.16.840.1.979177.3.579.2. 727 1992 Unknown [id number] 2.16.840.1.286110.3.579.2. 727 1992 Unknown [id number] 2.16.840.1.199690.3.579.2. 727 1992 Unknown [id number] 2.16.840.1.142885.3.579.2. 1286 1992 Unknown [id number] 2.16.840.1.376647.3.579.2. 1286 1992 Unknown [id number] 2.16.840.1.407165.3.579.2. 1286 1992 Unknown [id number] 2.16.840.1.807486.3.579.2. 1286 1992 Unknown [id number] 2.16.840.1.985834.3.579.2. 1286 1992 Unknown [id number] 2.16.840.1.010949.3.579.2. 1286 1992 Unknown [id number] 2.16.840.1.486875.3.579.2. 727 1959 Unknown [id number] Medicaid [employer] Medicaid [id number] [facility] Unknown [id number] 2.16.840.1.517887.3.579.2. 531 Social History Date Type Detail Facility Start: 08-14-2013 End: 10-13-2017 Consumes alcohol occasionally Consumes alcohol occasionally [facility] [place] DO Work Phone: Comment on above: <1PPD; Start: 06-25-2021 Tobacco smoking status Light t obacco smoker (finding) [facility] Sex Assigned At Female [facility] Start: 08-14-2013 End: 10-13-2017 Tobacco smoking status VTIS Smokes tobacco daily [employer] Phone: History of tobacco use Cigarette Smoker B [employer] Phone: Start: 08-14-2013 End: 10-13-2017 Tobacco use and exposure Smokeless tobacco non-user [employer] Phone: Start: 09-11-2018 Alcohol intake 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) [employer] Phone: Start: 1990 Sex Assigned At Not on file B ON [employer] Phone: Start: 1990 Sex Assigned At Female F [facility] Functional Status Date Assessment Result Facility 07-06-2023 Functional Status N/A [facility] 07-09-2021 PHQ-9 [id number] Moder ately Severe (15-19) -[facility] 250 DO Work Phone: Clinical Notes 07-24-2021 to 02-21-2024 Note Date & Type Note Facility 02-21-2024 Evaluation note Authored February 21, 2024 2 :00pm 34-year-old female referred to the liver clinic for evaluation of hepatitis C. Patient was diagnosed hepatitis C many years ago. Patient has treatment na ve. Check viral hepatitis serologies, HCV RNA and HCV genotype. Will arrange for FibroScan. After getting the results of the previous workup we will initiate antiviral therapy [facility] Work Phone: [phone]) 371-693003-08-2024 NoteMicrobiology PROCEDURE: Cervical Culture [R1] SOURCE: Cerv BODY [...] vaginalis present No yeast seen SUSCEPTIBILITY RESULTS LEGEND: S=Susceptible, N/R=Not Reported, Blank=Data [...] Locations R1: This test was performed at: [facility], [address] [place] [address], [address] , , [facility] Center[facility] on above:Performed By: #### [id number] #### [facility] [address] [place] [address] [id number] Hospital Discharge instructions Patient Education 07/06/2023 15:38:59 Viral Respiratory Infection, Laet-Ga-Nycg Viral Respiratory Infection A viral respiratory infection [...] at home: Managing pain and congestion Take bocn-atz-osuvapm and prescription medicines only as told by your doctor. If you have a sore throat, gargle with salt water. Do this 3 4 times a day or as needed. ?To make salt water, dissolve 1 tsp (3 6 g) of salt in 1 cup (237 mL) of warm water. Make sure thatall the salt dissolves. Use nose drops made [...] cannot use soap and water, use hand time buyer. ?Cover your mouth when you cough. Cover [...] away. Call your local emergency services (911 int [place] Do not wait to see if [...] provider. Document Revised: 07/23/2021 Document Reviewed: 07/23/2021 [employer] Patient Education 2022 [employer]. Follow Up Care 07/06/2023 15:07:50 With:Boubacar MULLINS, Zev Webber, ORS Address: [address] [place] [id number] When:2 to 4 days With:[facility] Dept: [phone] Address:Unknown When:07/09/2023 [facility]03-06-2024 Evaluation + Plan note Diagnostic Tests Pending * Chlam/GC/Trich,BETZAIDA 07/06/23 * Urine Culture 07/06/23 [facility]03-25-2022 Hospital Discharge instructions Patient Education 07/24/2021 17:19:35 HOSPITAL SECURITY OFFICER - Post D&C, Hysteroscopy, LEEP or Essure/Laparoscopy [...] a week and up to ten days aftersurgery. This is normal. If you are soaking a pad an hour or more frequently you need to call your doctor. Your first period may not be normal, but most women resume their normal cycles within a month or two. It is helpful for your doctor if you keep a written record of your bleeding following surgery. Whenabnormal bleeding persists for 2-3 cycles, please bring [...] Up Care 06/01/2021 16:23:25 With:Zev Hamlin Address: [address] [place], [place] [id number]- Business (1) When:2 weeks Comments:Call for any problems. [facility] N[facility]ative - ReportedCHELSEA FUCHS is being seen for a consultation for. POC abnormal ECG; [facility] Work Phone: Chi complaint Narrative - ReportedCHELSEA FUCHS is being seen for a consultation for. POC abnormal ECG; Dr. Hamlin [facility] Work Phone: Evaluation + Plan note No data available for this section [facility] note[facility] assessment information available [facility] Work Phone: History of Present illness Narrative* Patient is seen for preoperative risk assessment. She apparently presented for tubal ligation and procedure was canceled because of abnormal EKG. * She has been in and out of the emergency room multiple times. Recently she was in [facility] at the [facility] and they also noted abnormal EKG and performed troponins which were below the normal limit for a woman. Because of this I am doubtful of coronary ischemia. Her EKG is admittedly abnormal. She does have Q waves which I believe are an electrophysiologic variant but she also has J- point elevation and in combination they create significant concern and/or alarm probably on behalf of surgery but more so her anesthesiology. * Patient is a smoker. She states that from [...] would be positive before she even started onthe treadmill because of this we will use isotope imaging to add clarity. * Her complaints of dyspnea also will be evaluated with the echocardiogram. I believe this also will be complementary and/or helpful because it will demonstrate whether or not she has previous infarct and/or cardiomyopathy that could be causing her complaints of dyspnea. * I advised her that her test results are normal we would otherwise clear her for surgery and I will correspond with the surgeon in this regard. -[facility] 250 DO Work Phone: History of Present illness Narrative* Patient is seen for preoperative risk assessment. She apparently presented for tubal ligation and procedure was canceled because of abnormal EKG. * She has been in and out of the emergency room multiple times. Recently she was in [facility] at [facility] and they also noted abnormal EKG and performed troponins which were below the normal limit for a woman. Because of this I am doubtful of coronary ischemia. Her EKG is admittedly abnormal. She does have Q waves which I believe are an electrophysiologic variant but she also has J- point elevation and in combination they create significant concern and/or alarm probably on behalf of surgery but more so her anesthesiology. * Patient is a smoker. She states that from [...] would be positive before she even started onthe treadmill because of this we will use isotope imaging to add clarity. * Her complaints of dyspnea also will be evaluated with the echocardiogram. I believe this also will be complementary and/or helpful because it will demonstrate whether or not she has previous infarct and/or cardiomyopathy that could be causing her complaints of dyspnea. * I advised her that her test results are normal we would otherwise clear her for surgery and I will correspond with the surgeon in this regard. 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 Latest Code Status on File Code Status Date Activated Date Inactivated Comments Full Code 03/06/2018 12:17 AM 03/06/2018 4:09 AM Latest Code Status on File Code Status Date Activated Date Inactivated Comments Full Code 03/06/2018 12:17 AM 03/06/2018 4:09 AM Advance Directive Response Recorded Date/ Time Advance Directives No November 10 10:42am Chief Complaint and Reason for Visit Chief Complaint Refer Minerva Stringer: hepatitis Chief Complaint Refer Minerva Stringer: hepatitis B19.20 Additional Source Comments INFORMATION SOURCE (unrecogn ized section and content) DATE CREATED AUTHOR 07/14/2021 [facility] DATE CREATED AUTHOR AUTHOR'S ORGANIZ ATION 12/12/2022 [facility] DATE CREATED AUTHOR AUTHOR'S ORGANIZ ATION 02/17/2023 [facility] DATE CREATED AUTHOR AUTHOR'S ORGANIZ ATION 02/16/2024 [facility] DATE CREATED AUTHOR AUTHOR'S ORGANIZ ATION 02/25/2024 [facility] DATE CREATED AUTHOR AUTHOR'S ORGANIZ ATION 03/14/2024 [facility] DATE CREATED AUTHOR AUTHOR'S ORGANIZ ATION 03/15/2024 [facility] Care Teams (unrecognized sec tion and content) Team Status: Active Member Role Status Dates NON STAFF Primary Care Provider Active Team Status: Inactive Member Role Status Dates PHYSICIAN NO FAMILY Primary Care Provider Active Start: February 21, 2024 End: February 21, 2024 Flip Morejon MD Attending Provider Active Start: February 21, 2024 End: February 21, 2024 INGRID Eugene Referring Provider Active Start: February 21, 2024 End: February 21, 2024 Team Status: Inactive Member Role Status Dates NON STAFF Primary Care Provider Active Start: February 21, 2024 End: February 21, 2024 Flip Morejon MD Attending Provider Active Start: February 21, 2024 End: February 21, 2024 Team Status: Active Member Role Status Dates PHYSICIAN NO FAMILY Primary Care Provider Active Team Status: Inactive Member Role Status Dates PHYSICIAN NO FAMILY Primary Care Provider Active Start: February 21, 2024 End: February 21, 2024 Flip Morejon MD Attending Provider Active Start: February 21, 2024 End: February 21, 2024 INGRID Eugene Referring Provider Active Start: February 21, 2024 End: February 21, 2024 Goals (unrecognized section and content) Goals may be documented in a n alternate section FOR RECORDS PERTAINING TO PATIENTS WHO ARE [...] BE BASED ON THE PRIMARY CLINICAL RECORDS. [facility] [employer] [facility]. provides no warranty or guarantee of the accuracy or completeness of information in this document.
--- NOTE | 2024-04-11 14:57 | XR_ITS ---
The [address] [address] Patient Name: SANGEETA MYLES MRN: [id number] date: 1990 Sex: F Assigned Patient Location: ER Current Patient Location: ER Accession/Order Number: [id number] Exam Date: 04/11/2024 15:15 Report Date: 04/11/2024 15:32 At the request of: ESTRADA DUKES Procedure: XR chest 2V EXAM: Chest x-ray HISTORY: . edema . COMPARISON: 10/25/2023 TECHNIQUE: Frontal and lateral chest FINDINGS: Heart and vascularity are unremarkable. Lungs are free of focal infiltrates. No acute bony abnormality is appreciated. XR/XR chest 2V IMPRESSION: No acute heart or lung disease identified. Electronically authenticated by: SUZY SCRUGGS Date: 04/11/2024 15:32
--- NOTE | 2024-04-11 14:57 | ECG_ITS ---
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
[2024-04-11 15:14] LABS: Basophils Percent Auto 0.8 % (0.2-2.0); Hematocrit 34.2 % (36.0-48.0); Immature Granulocytes Abs Auto 0.08 10^3/uL (0.00-0.03); Lymphocytes Absolute Auto 0.9 10^3/uL (1.2-3.8); Lymphocytes Percent Auto 34.8 % (20.5-60.0); Mean Corpuscular HGB Conc 32.2 g/dL (29.9-35.2); Mean Corpuscular Hemoglobin 31.5 pg (26.7-34.0); Mean Platelet Volume 10.1 fL (9.5-13.5); Monocytes Absolute Auto 0.2 10^3/uL (0.3-0.8); Monocytes Percent Auto 7.6 % (1.7-12.0); Neutrophils Absolute Auto 1.4 10^3/uL (1.4-6.5); Neutrophils Percent Auto 53.8 % (43.0-75.0); Platelet Count 133 10^3/uL (150-450); Red Blood Count 3.49 10^6/uL (4.20-5.40); Red Cell Distribution Width 15.6 % (11.0-15.0); White Blood Count 2.6 10^3/uL (4.0-11.0)
[2024-04-11 15:32] LABS: Alanine Aminotransferase 57 U/L (14-59); Albumin Globulin Ratio 1.3; Albumin Level 2.9 g/dL (3.4-5.0); Alkaline Phosphatase 73 U/L (46-116); Anion Gap 8.4; Aspartate Amino Transferase 73 U/L (15-37); BUN Creatinine Ratio 13.4; Bilirubin Total 0.5 mg/dL (0.2-1.0); Calcium 8.6 mg/dL (8.5-10.1); Carbon Dioxide 28.4 mmol/L (21.0-32.0); Chloride 110 mmol/L (98-107); Estimated GFR (African America >60 (>=60 mL/min/1.73m^2); Estimated GFR (Non-African Ame >60 (>=60 mL/min/1.73m^2); Globulin 2.3 g/dL; Glucose 116 mg/dL (74-106); Potassium 3.8 mmol/L (3.5-5.1); Sodium 143 mmol/L (136-145); Total Protein 5.2 g/dL (6.4-8.2); Troponin I High Sensitivity 36.7 pg/mL (4.0-51.3)
--- NOTE | 2024-04-11 15:52 | ED_ITS ---
HPI HPI - General Adult General Chief complaint: Extremity Problem, Nontraumatic Stated complaint: EDEMA Time Seen by Provider: 04/11/24 14:46 Mode of arrival: walk-in History of Present Illness HPI narrative: Patient presents to ED complaining of bilateral lower extremity swelling. She denies any chest pain or shortness of breath. She said her legs have been swollen recently. She is on Lasix it looks like she takes 20 mg every other day. She said that has not really been helping. She also reports about a 7 pound weight gain recently. She has a history of drug abuse and history of liver failure in the past. She has a history of hepatic encephalopathy and anemia. She said she also has hepatitis C. She denies any cardiac history that she is aware of. No stents no valve replacements. She is alert and and in no acute distress vital signs are stable at this time. Related Data Home Medications ?Medication ?Instructions ?Recorded ?Confirmed trazodone 100 mg tablet 100 mg PO BEDTIME 11/09/22 04/11/24 buprenorphine 8 mg-naloxone 2 mg 1.5 film sublingual DAILY 10/25/23 sublingual film buspirone 10 mg tablet 10 mg PO DAILY 04/11/24 04/11/24 furosemide 20 mg tablet 20 mg PO Q48H 04/11/24 04/11/24 hydroxyzine pamoate 25 mg capsule 25 mg PO Q6H 04/11/24 04/11/24 melatonin 10 mg tablet 10 mg PO DAILY 04/11/24 04/11/24 prazosin 1 mg capsule 1 mg PO DAILY 04/11/24 04/11/24 sertraline 25 mg tablet 25 mg PO Q24H 04/11/24 04/11/24 sertraline 50 mg tablet 50 mg PO Q24H 04/11/24 04/11/24 trazodone 50 mg tablet 50 mg PO DAILY 04/11/24 04/11/24 Previous Rx's ?Medication ?Instructions ?Recorded pantoprazole 40 mg tablet,delayed 40 mg PO DAILY #30 tabs 10/24/23 release (Protonix) cyanocobalamin (vitamin B-12) 1,000 mcg IM .Weekly 4 weeks #4 ea 10/26/23 1,000 mcg/mL injection kit cyanocobalamin (vitamin B-12) 1,000 mcg IM DAILY 3 days #3 ea 10/26/23 1,000 mcg/mL injection kit lactulose 10 gram/15 mL oral 20 g (30 mL) PO BID #237 mL 10/26/23 solution Allergies Allergy/AdvReac Type Severity Reaction Status Date / Time No Known Drug Allergies Allergy Verified 10/11/23 17:22 Opioid HPI Opioid Management Most Recent Opioid Data: Last Pain Scale 2 04/11/24 14:54 04/11/24 Last ORT Total Score 10 10/25/23 17:47 10/25/23 Last ORT Risk Category High Risk 10/25/23 17:47 10/25/23 Last COWS Score 10 10/26/23 07:31 10/26/23 Last COWS Severity Mild 10/26/23 07:31 10/26/23 Ur Phencyclidine Scrn Negative (NEGATIVE) 10/26/23 09:15 10/01 10/23 Review of Systems ROS Status of ROS 10 or more systems reviewed and unremark able except as noted in history and below [facility] Medical History (Updated 04/11/24 @ 16:42 by Negrita Ibanez DO) Urinary tract infection with hematuria ?N39.0 - Urinary tract infection, site not specified (ICD-10) ?R31.9 - Hematuria, unspecified (ICD-10) Oral thrush ?B37.0 - Candidal stomatitis (ICD-10) Single delivery by section ?O82 - Encounter for delivery without indication (ICD-10) Liver failure ?K72.90 - Hepatic failure, unspecified without coma (ICD-10) Hep C w/o coma, chronic ?B18.2 - Chronic viral hepatitis C (ICD-10) Neurocardiogenic syncope ?R55 - Syncope and collapse (ICD-10) Family History (Updated 10/23/23 @ 19:39 by Makayla Campos, JACOB) Mother Family history of COPD (chronic obstructive pulmonary disease) Other Family history of cancer Family history of hypertension Social History (Updated 10/23/23 @ 19:41 by Makayla Campos, JACOB) Within the past year, how often did you have a drink containing alcohol: never Within the past year, how many standard drinks containing alcohol did you have on a typical day: 1 or 2 Within the past year, how often did you have six or more drinks on one occasion: never Total score: 0 Score interpretation: A score less than 3 is consistent with normal alcohol consumption. 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; clean for four months Previous occupational history: [employer] Highest level of school completed/degree received: high school graduate Are you now , , , , never or living with a partner: living with partner In a typical week, how many times do you talk on the telephone with family, friends, or neighbors: 3 or more times per week How often do you get together with friends or relatives: 3 or more times per week How often do you attend latter-day or confucianism services: never Little interest or pleasure in doing things: not at all Feeling down, depressed, or hopeless: not at all Feel stressed/tense/nervous/anxious/difficulty sleeping: to some extent Do you think of yourself as: straight/heterosexual Gender Identity: female Exam Narrative Exam Narrative: Time Seen: [] Vital Signs: [Per nurse's notes.] General: [Alert] Skin: [Warm, dry, no rash.] Head: [Normocephalic, atraumatic.] Neck: [Supple, trachea midline.] Eye: [Pupils are equal, round and reactive to light, extraocular movements are intact, normal conjunctiva.] Ears, nose, mouth and throat: oral mucosa moist. Cardiovascular: [Regular rate and rhythm, no murmur.] Respiratory: [Lungs are clear to auscultation, respirations are non-labored, breath sounds are equal. No crackles Chest wall: [No tenderness, no deformity.] Gastrointestinal: [Soft, nontender, non distended, normal bowel sounds.] MSK: 5 out of 5 muscle strength x 4 extremities no calf pain patient has 3+ pitting edema bilateral lower extremities Lymphatics: [No lymphadenopathy.] Psychiatric: [Cooperative, appropriate mood & affect.] Neurological: [Alert and oriented to person, place, time, and situation, no focal neurological deficit observed.] Constitutional Vital Signs, click to edit/add: Last Vital Signs Temp 98.3 F 04/11/24 14:47 Pulse 57 L 04/11/24 16:05 Resp 16 04/11/24 16:05 BP 90/54 04/11/24 16:05 Pulse Ox 95 04/11/24 14:49 O2 Del Method Room Air 04/11/24 14:47 Course Vital Signs Vital signs: Vital Signs Temperature 98.3 F 04/11/24 14:47 Pulse Rate 78 04/11/24 14:47 Respiratory Rate 18 04/11/24 14:47 Blood Pressure 99/56 04/11/24 14:47 Pulse Oximetry 95 04/11/24 14:47 Oxygen Delivery Method Room Air 04/11/24 14:47 Temperature 98.3 F 04/11/24 14:47 Pulse Rate 57 L 04/11/24 16:05 Respiratory Rate 16 04/11/24 16:05 Blood Pressure 90/54 04/11/24 16:05 Pulse Oximetry 95 04/11/24 14:49 Oxygen Delivery Method Room Air 04/11/24 14:47 Medical Decision Making MDM Narrative Medical decision making narrative: Patient does have some chronic lab abnormalities however a lot of her labs are looking better than they normally do. Patient is very sleepy while she is here and she states it is from her shot that she gets to help with her withdrawal symptoms. Patient is not in acute renal failure or acute liver failure. She is on Lasix every other day so I gave her an additional dose here in ED today. I called and spoke to her marketing production manager at her sober living house and she states she will inform the primary care physician that she may need an increase in her Lasix and to monitor her swelling. She will be sending somebody out from the staff to pick her up. The patient is ambulatory walking to the bathroom in no acute distress. I informed her that she may need an increased dose in her Lasix however I want that managed by her primary doctor. Patient is comfortable care plan for return to her house Differential Diagnosis Differential Diagnosis: Renal failure UTI electrolyte abnormality liver failure Lab Data Lab results reviewed: Yes I reviewed the patient's lab results Labs: Lab Results 04/11/24 04/11/24 Range/Units 14:55 16:00 WBC 2.6 L (4.0-11.0) 10^3/uL RBC 3.49 L (4.20-5.40) 10^6/uL Hgb 11.0 L (12.0-16.0) g/dL Hct 34.2 L (36.0-48.0) % MCV 98.0 (81.0-99.0) fL MCH 31.5 (26.7-34.0) pg MCHC 32.2 (29.9-35.2) g/dL RDW 15.6 H (11.0-15.0) % Plt Count 133 L (150-450) 10^3/uL MPV 10.1 (9.5-13.5) fL Neut % (Auto) 53.8 (43.0-75.0) % Lymph % (Auto) 34.8 (20.5-60.0) % [place] % (Auto) 7.6 (1.7-12.0) % Eos % (Auto) 0.0 L (0.9-7.0) % Baso % (Auto) 0.8 (0.2-2.0) % Neut # (Auto) 1.4 (1.4-6.5) 10^3/uL Lymph # (Auto) 0.9 L (1.2-3.8) 10^3/uL [place] # (Auto) 0.2 L (0.3-0.8) 10^3/uL Eos # (Auto) 0.0 (0.0-0.7) 10^3/uL Baso # (Auto) 0.0 (0.0-0.1) 10^3/uL Abs Immat Gran (auto) 0.08 H (0.00-0.03) 10^3/uL Imm/Tot Granulo (auto) 3.0 H (0.0-0.5) % Sodium 143 (136-145) mmol/L Potassium 3.8 (3.5-5.1) mmol/L Chloride 110 H (98-107) mmol/L Carbon Dioxide 28.4 (21.0-32.0) mmol/L Anion Gap 8.4 BUN 11.0 (7.0-18.0) mg/dL Creatinine 0.82 (0.55-1.02) mg/dL Est GFR ( Amer) >60 (>=60 mL/min/1.73m^2) Est GFR (Non-Af Amer) >60 (>=60 mL/min/1.73m^2) BUN/Creatinine Ratio 13.4 Glucose 116 H (74-106) mg/dL Calcium 8.6 (8.5-10.1) mg/dL Total Bilirubin 0.5 (0.2-1.0) mg/dL AST 73 H (15-37) U/L ALT 57 (14-59) U/L Alkaline Phosphatase 73 (46-116) U/L Troponin I High Sens 36.7 (4.0-51.3) pg/mL NT-Pro-B Natriuret Pep 482.0 H (<=450.0) pg/mL Total Protein 5.2 L (6.4-8.2) g/dL Albumin 2.9 L (3.4-5.0) g/dL Globulin 2.3 g/dL Albumin/Globulin Ratio 1.3 Urine Color Yellow (YELLOW) Urine Clarity Clear (CLEAR) Urine pH 5.5 (5.0-9.0) Ur Specific [place] >=1.030 A (1.005-1.025) Urine Protein Trace (NEG/TRACE) mg/dL Urine Glucose (UA) Negative (NEGATIVE) mg/dL Urine Ketones Negative (NEGATIVE) mg/dL Urine Occult Blood Large A (NEGATIVE) Urine Nitrite Negative (NEGATIVE) Urine Bilirubin Negative (NEGATIVE) Urine Urobilinogen 2.0 A (0.2-1.0) EU/dL Ur Leukocyte Esterase Negative (NEGATIVE) Urine RBC 0-2 (0-2) #/HPF Urine WBC 0-2 A (NONE SEEN) #/HPF Ur Squamous Epith Cells Few A (NONE/RARE) #/LPF Urine Crystals None seen (None Seen) #/HPF Urine Bacteria Small A (NONE SEEN) #/HPF Urine Casts None seen (NONE SEEN) #/LPF Urine Mucus Trace A (NONE SEEN) Ur Culture Indicated? Yes Imaging Data Chest x-ray: Radiologist's impression: ITS Impressions Chest X-Ray 04/11/24 14:57 IMPRESSION: No acute heart or lung disease identified. Electronically authenticated by: SUZY SCRUGGS Date: 04/11/2024 15:32 ECG Data Attestation: I personally reviewed and interpreted this ECG as follows: Interpretation: EKG INTERPRETATION Time: [] 1501 Rate: [] 42 Rhythm: _ [] Sinus bradycardia ST segments: _ [] No acute ST elevation or depression T waves: _ [] Ectopy: _ [] P wave/VT interval: _ [] QRS interval: _ [] QT interval: _ [] Comparison: _ [] Comparison EKG date: [] Performed by: [self] Discharge Plan Discharge Chief Complaint: Extremity Problem, Nontraumatic Clinical Impression: Edema, peripheral Patient Disposition: Home, Self-Care Time of Disposition Decision: 16:42 Condition: Good Mode of Transportation: Private Vehicle Prescriptions / Home Meds: No Action trazodone 100 mg tablet 100 mg PO BEDTIME pantoprazole [Protonix] 40 mg tablet,delayed release (DR/EC) 40 mg PO DAILY Qty: 30 11RF buprenorphine-naloxone 8-2 mg film 1.5 film sublingual DAILY lactulose 10 gram/15 mL solution 20 g PO BID Qty: 237 0RF cyanocobalamin (vitamin B-12) 1,000 mcg/mL kit 1,000 mcg IM DAILY 3 Days Qty: 3 0RF cyanocobalamin (vitamin B-12) 1,000 mcg/mL kit 1,000 mcg IM .Weekly 28 Days Qty: 4 0RF Rx Instructions: Start one week after daily dosing is completed buspirone 10 mg tablet 10 mg PO DAILY hydroxyzine pamoate 25 mg capsule 25 mg PO Q6H melatonin 10 mg tablet 10 mg PO DAILY prazosin 1 mg capsule 1 mg PO DAILY trazodone 50 mg tablet 50 mg PO DAILY furosemide 20 mg tablet 20 mg PO Q48H sertraline 50 mg tablet 50 mg PO Q24H sertraline 25 mg tablet 25 mg PO Q24H Print Language: Yoruba Instructions: Leg Edema (ED) Referrals: Physician,Non-Staff, MD [Primary Care Provider] - 1 week
[2024-04-11] MEDS: FUROSEMIDE 20 MG/2 ML VIAL IVP (16:01)
[2024-04-11 16:28] LABS: Bilirubin Urine NEGATIVE (NEGATIVE); Blood Urine LARGE (NEGATIVE); Clarity Urine CLEAR (CLEAR); Color Urine YELLOW (YELLOW); Glucose Urine UA NEGATIVE (NEGATIVE); Ketones Urine NEGATIVE (NEGATIVE); Leukocyte Esterase Urine NEGATIVE (NEGATIVE); Nitrite Urine NEGATIVE (NEGATIVE); Protein Urine TRACE mg/dL (NEG/TRACE); Specific Gravity Urine >=1.030 (1.005-1.025); pH Urine 5.5 (5.0-9.0)
[2024-04-11 16:35] LABS: Urine Microscopic Indicated YES
[2024-04-11 16:37] LABS: Bacteria Urine SMALL #/HPF (NONE SEEN); Cast Seen? NONE SEEN #/LPF (NONE SEEN); Crystals Seen? None Seen #/HPF (None Seen); Mucus Urine TRACE (NONE SEEN); RBC Urine 0-2 #/HPF (0-2); Squamous Epithelial Cell Urine FEW #/LPF (NONE/RARE); Urine Culture Indicated YES; WBC Urine 0-2 #/HPF (NONE SEEN)
== END 2024-04-11 17:04 | disposition home or self-care (01) ==
PROVIDERS: Emergency Provider Emergency Medicine
DX: R60.0 Localized edema (principal); B19.20 Unspecified viral hepatitis C without hepatic coma; Z87.440 Personal history of urinary (tract) infections; F17.200 Nicotine dependence, unspecified, uncomplicated; F11.11 Opioid abuse, in remission
CPT/HCPCS: 36415; 71046; 80053; 81001; 83880; 84484; 85025; 87086; 93005; 96374; 99285; J1940

== ENCOUNTER 2024-04-16 14:21 | Emergency (ER) | payer OTHER, SELFPAY ==
[2024-04-16 14:27] VITALS: BP 93/48; PULSE 61; TEMP 36.8; O2SAT 95; BMI 30.8
--- NOTE | 2024-04-16 14:35 | ED_ITS ---
HPI HPI - General Adult General Chief complaint: Extremity Problem, Nontraumatic Stated complaint: COUGH SWOLLEN FEET Time Seen by Provider: 04/16/24 14:26 Source: patient Mode of arrival: walk-in History of Present Illness HPI narrative: 34-year-old female presents to the emergency department for a chief complaint of swelling in her feet and her ankles. This is an ongoing issue with her due to her liver failure from alcohol abuse. She is on a diuretic and is now on 20 mg once a day of Lasix. This is not a new problem. Related Data Home Medications ?Medication ?Instructions ?Recorded ?Confirmed trazodone 100 mg tablet 100 mg PO BEDTIME 11/09/22 04/11/24 buprenorphine 8 mg-naloxone 2 mg 1.5 film sublingual DAILY 10/25/23 sublingual film buspirone 10 mg tablet 10 mg PO DAILY 04/11/24 04/11/24 furosemide 20 mg tablet 20 mg PO Q48H 04/11/24 04/11/24 hydroxyzine pamoate 25 mg capsule 25 mg PO Q6H 04/11/24 04/11/24 melatonin 10 mg tablet 10 mg PO DAILY 04/11/24 04/11/24 prazosin 1 mg capsule 1 mg PO DAILY 04/11/24 04/11/24 sertraline 25 mg tablet 25 mg PO Q24H 04/11/24 04/11/24 sertraline 50 mg tablet 50 mg PO Q24H 04/11/24 04/11/24 trazodone 50 mg tablet 50 mg PO DAILY 04/11/24 04/11/24 Previous Rx's ?Medication ?Instructions ?Recorded pantoprazole 40 mg tablet,delayed 40 mg PO DAILY #30 tabs 10/24/23 release (Protonix) cyanocobalamin (vitamin B-12) 1,000 mcg IM .Weekly 4 weeks #4 ea 10/26/23 1,000 mcg/mL injection kit cyanocobalamin (vitamin B-12) 1,000 mcg IM DAILY 3 days #3 ea 10/26/23 1,000 mcg/mL injection kit lactulose 10 gram/15 mL oral 20 g (30 mL) PO BID #237 mL 10/26/23 solution Allergies Allergy/AdvReac Type Severity Reaction Status Date / Time No Known Drug Allergies Allergy Verified 10/11/23 17:22 Opioid HPI Opioid Management Most Recent Opioid Data: Last Pain Scale 2 04/11/24 14:54 04/11/24 Last ORT Total Score 10 10/25/23 17:47 10/25/23 Last ORT Risk Category High Risk 10/25/23 17:47 10/25/23 Last COWS Score 10 10/26/23 07:31 10/26/23 Last COWS Severity Mild 10/26/23 07:31 10/26/23 Ur Phencyclidine Scrn Negative (NEGATIVE) 10/26/23 09:15 10/01 10/23 Review of Systems ROS Narrative A ten point review of systems is negative except as noted above. [facility] Medical History (Updated 04/16/24 @ 15:15 by Viral Reese MD) Urinary tract infection with hematuria ?N39.0 - Urinary tract infection, site not specified (ICD-10) ?R31.9 - Hematuria, unspecified (ICD-10) Oral thrush ?B37.0 - Candidal stomatitis (ICD-10) Single delivery by section ?O82 - Encounter for delivery without indication (ICD-10) Liver failure ?K72.90 - Hepatic failure, unspecified without coma (ICD-10) Hep C w/o coma, chronic ?B18.2 - Chronic viral hepatitis C (ICD-10) Neurocardiogenic syncope ?R55 - Syncope and collapse (ICD-10) Family History (Updated 10/23/23 @ 19:39 by Makayla Campos RN) Mother Family history of COPD (chronic obstructive pulmonary disease) Other Family history of cancer Family history of hypertension Social History (Updated 10/23/23 @ 19:41 by Makayla Campos RN) Within the past year, how often did you have a drink containing alcohol: never Within the past year, how many standard drinks containing alcohol did you have on a typical day: 1 or 2 Within the past year, how often did you have six or more drinks on one occasion: never Total score: 0 Score interpretation: A score less than 3 is consistent with normal alcohol consumption. 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; clean for four months Previous occupational history: [employer] Highest level of school completed/degree received: high school graduate Are you now , , , , never or living with a partner: living with partner In a typical week, how many times do you talk on the telephone with family, friends, or neighbors: 3 or more times per week How often do you get together with friends or relatives: 3 or more times per week How often do you attend protestant or spiritism services: never Little interest or pleasure in doing things: not at all Feeling down, depressed, or hopeless: not at all Feel stressed/tense/nervous/anxious/difficulty sleeping: to some extent Do you think of yourself as: straight/heterosexual Gender Identity: female Exam Narrative Exam Narrative: Nurses note and vital signs reviewed and patient is not hypoxic. General: The patient appears well and in no apparent distress. Patient is resting comfortably on cart. Skin: Warm, dry, no pallor noted. There is no rash noted. Head: Normocephalic, atraumatic Eye: no drainage Ears, Nose, Mouth, and Throat: oral mucosa is moist. Nares patent. Cardiovascular: Regular Rate and Rhythm Respiratory: Patient is in no distress, no accessory muscle use, lungs are clear to auscultation, no wheezing, rales or rhonchi Back: non-tender GI: Soft and nontender Musculoskeletal: Pitting edema present in both feet and both lower legs. Neurological: A&O, normal speech Psychiatric: Cooperative Constitutional Vital Signs, click to edit/add: Last Vital Signs Temp 98.3 F 04/16/24 14:27 Pulse 61 04/16/24 14:27 Resp 18 04/16/24 14:27 BP 93/48 L 04/16/24 14:27 Pulse Ox 95 04/16/24 14:27 O2 Del Method Room Air 04/16/24 14:27 Course Vital Signs Vital signs: Vital Signs Temperature 98.3 F 04/16/24 14:27 Pulse Rate 61 04/16/24 14:27 Respiratory Rate 18 04/16/24 14:27 Blood Pressure 93/48 L 04/16/24 14:27 Pulse Oximetry 95 04/16/24 14:27 Oxygen Delivery Method Room Air 04/16/24 14:27 Temperature 98.3 F 04/16/24 14:27 Pulse Rate 61 04/16/24 14:27 Respiratory Rate 18 04/16/24 14:27 Blood Pressure 93/48 L 04/16/24 14:27 Pulse Oximetry 95 04/16/24 14:27 Oxygen Delivery Method Room Air 04/16/24 14:27 Medical Decision Making MDM Narrative Medical decision making narrative: The patient's blood work shows low albumin and her creatinine is now up slightly to 0.95. Case [facility] the patient will be discharged from here back to there. Treatment diagnosis and follow-up were discussed with the patient. Differential Diagnosis Differential Diagnosis: Peripheral edema, renal failure, hypoalbuminemia. Lab Data Lab results reviewed: Yes I reviewed the patient's lab results Labs: Lab Results 04/16/24 Range/Units 14:42 WBC 2.7 L (4.0-11.0) 10^3/uL RBC 3.52 L (4.20-5.40) 10^6/uL Hgb 11.1 L (12.0-16.0) g/dL Hct 34.4 L (36.0-48.0) % MCV 97.7 (81.0-99.0) fL MCH 31.5 (26.7-34.0) pg MCHC 32.3 (29.9-35.2) g/dL RDW 14.6 (11.0-15.0) % Plt Count 110 L (150-450) 10^3/uL MPV 10.0 (9.5-13.5) fL Neut % (Auto) 49.8 (43.0-75.0) % Lymph % (Auto) 37.4 (20.5-60.0) % [place] % (Auto) 10.3 (1.7-12.0) % Eos % (Auto) 0.0 L (0.9-7.0) % Baso % (Auto) 0.7 (0.2-2.0) % Neut # (Auto) 1.4 (1.4-6.5) 10^3/uL Lymph # (Auto) 1.0 L (1.2-3.8) 10^3/uL [place] # (Auto) 0.3 (0.3-0.8) 10^3/uL Eos # (Auto) 0.0 (0.0-0.7) 10^3/uL Baso # (Auto) 0.0 (0.0-0.1) 10^3/uL Abs Immat Gran (auto) 0.05 H (0.00-0.03) 10^3/uL Imm/Tot Granulo (auto) 1.8 H (0.0-0.5) % Sodium 146 H (136-145) mmol/L Potassium 4.1 (3.5-5.1) mmol/L Chloride 111 H (98-107) mmol/L Carbon Dioxide 31.8 (21.0-32.0) mmol/L Anion Gap 7.3 BUN 15.0 (7.0-18.0) mg/dL Creatinine 0.95 (0.55-1.02) mg/dL Est GFR ( Amer) >60 (>=60 mL/min/1.73m^2) Est GFR (Non-Af Amer) >60 (>=60 mL/min/1.73m^2) BUN/Creatinine Ratio 15.8 Glucose 89 (74-106) mg/dL Calcium 8.5 (8.5-10.1) mg/dL Total Bilirubin 0.5 (0.2-1.0) mg/dL Direct Bilirubin 0.2 (0.0-0.2) mg/dL AST 70 H (15-37) U/L ALT 51 (14-59) U/L Alkaline Phosphatase 66 (46-116) U/L Total Protein 5.1 L (6.4-8.2) g/dL Albumin 2.8 L (3.4-5.0) g/dL Globulin 2.3 g/dL Albumin/Globulin Ratio 1.2 Discharge Plan Discharge Chief Complaint: Extremity Problem, Nontraumatic Clinical Impression: Peripheral edema Patient Disposition: Home, Self-Care Time of Disposition Decision: 15:15 Condition: Good Mode of Transportation: Private Vehicle Prescriptions / Home Meds: No Action trazodone 100 mg tablet 100 mg PO BEDTIME pantoprazole [Protonix] 40 mg tablet,delayed release (DR/EC) 40 mg PO DAILY Qty: 30 11RF buprenorphine-naloxone 8-2 mg film 1.5 film sublingual DAILY lactulose 10 gram/15 mL solution 20 g PO BID Qty: 237 0RF cyanocobalamin (vitamin B-12) 1,000 mcg/mL kit 1,000 mcg IM DAILY 3 Days Qty: 3 0RF cyanocobalamin (vitamin B-12) 1,000 mcg/mL kit 1,000 mcg IM .Weekly 28 Days Qty: 4 0RF Rx Instructions: Start one week after daily dosing is completed buspirone 10 mg tablet 10 mg PO DAILY hydroxyzine pamoate 25 mg capsule 25 mg PO Q6H melatonin 10 mg tablet 10 mg PO DAILY prazosin 1 mg capsule 1 mg PO DAILY trazodone 50 mg tablet 50 mg PO DAILY furosemide 20 mg tablet 20 mg PO Q48H sertraline 50 mg tablet 50 mg PO Q24H sertraline 25 mg tablet 25 mg PO Q24H Print Language: Trinidadian Instructions: Leg Edema (ED) Referrals: Physician,Non-Staff, MD [Primary Care Provider] - 1 week
[2024-04-16 14:58] LABS: Basophils Percent Auto 0.7 % (0.2-2.0); Hematocrit 34.4 % (36.0-48.0); Hemoglobin 11.1 g/dL (12.0-16.0); Immature Granulocytes Abs Auto 0.05 10^3/uL (0.00-0.03); Immature Granulocytes Pct Auto 1.8 % (0.0-0.5); Lymphocytes Percent Auto 37.4 % (20.5-60.0); Mean Corpuscular HGB Conc 32.3 g/dL (29.9-35.2); Mean Corpuscular Hemoglobin 31.5 pg (26.7-34.0); Mean Corpuscular Volume 97.7 fL (81.0-99.0); Monocytes Absolute Auto 0.3 10^3/uL (0.3-0.8); Monocytes Percent Auto 10.3 % (1.7-12.0); Neutrophils Absolute Auto 1.4 10^3/uL (1.4-6.5); Neutrophils Percent Auto 49.8 % (43.0-75.0); Platelet Count 110 10^3/uL (150-450); Red Blood Count 3.52 10^6/uL (4.20-5.40); Red Cell Distribution Width 14.6 % (11.0-15.0); White Blood Count 2.7 10^3/uL (4.0-11.0)
[2024-04-16 15:03] LABS: Alanine Aminotransferase 51 U/L (14-59); Albumin Globulin Ratio 1.2; Albumin Level 2.8 g/dL (3.4-5.0); Alkaline Phosphatase 66 U/L (46-116); Anion Gap 7.3; Aspartate Amino Transferase 70 U/L (15-37); BUN Creatinine Ratio 15.8; Bilirubin Direct 0.2 mg/dL (0.0-0.2); Bilirubin Total 0.5 mg/dL (0.2-1.0); Calcium 8.5 mg/dL (8.5-10.1); Carbon Dioxide 31.8 mmol/L (21.0-32.0); Chloride 111 mmol/L (98-107); Estimated GFR (African America >60 (>=60 mL/min/1.73m^2); Estimated GFR (Non-African Ame >60 (>=60 mL/min/1.73m^2); Globulin 2.3 g/dL; Glucose 89 mg/dL (74-106); Potassium 4.1 mmol/L (3.5-5.1); Sodium 146 mmol/L (136-145); Total Protein 5.1 g/dL (6.4-8.2)
== END 2024-04-16 15:32 | disposition home or self-care (01) ==
PROVIDERS: Emergency Provider Emergency Medicine
DX: R60.0 Localized edema (principal); K70.40 Alcoholic hepatic failure without coma; F17.200 Nicotine dependence, unspecified, uncomplicated; F14.91 Cocaine use, unspecified, in remission
CPT/HCPCS: 36415; 80048; 80076; 85025; 99283

== ENCOUNTER 2024-05-30 21:37 | Emergency (ER) | payer OTHER, SELFPAY ==
--- OUTSIDE RECORDS SUMMARY | 2024-05-30 21:43 | XMS_ITS | CCD ---
Author Organization [facility] CliniSyia Care Team Providers Care Nuclear Medicine Specialist Name Role Phone None, No PCP Unavailable Unavailable Unavailable Unavailable PAY, DR GARCIA Consulting Unavailable BRISEIDA HANKINS Attending Unavailable PAVLOCK, MAX Primary Care Unavailable NHI, BRISEIDA Admitting Unavailable BRISEIDA HANKINS Consulting Unavailable ANTONINA DURON Consulting Unavailable NONE, XXXX Primary Care Physician Unavailab le Unavailable Primary Care Provider Unavailabl e Unavailable Primary Care Provider Unavailabl e JACKIE, HIPOLITO Referring Unavailable JACKIE, HIPOLITO Referring Unavailable JACKIE, HIPOLITO Referring Unavailable JACKIE, HIPOLITO Referring Unavailable JACKIE, HIPOLITO Referring Unavailable ELVIS, P. EDWAR Referring [...] Attending Unavailable NON STAFF Primary Care Provider Unavailyuriy Morejon MD Imluigi Attending Provider NO PCP, NO PCP Primary Care Unavailable FLAVIA WOODRUFF Attending Unavailab le NO PCP, NO PCP Primary Care Unavailable REF PROV, NOT IN SYSTEM Referring Unavaila PB Cummins Referring Unavailable SERVICES, [facility] Primary Care Unava ilable NO PCP, NO PCP Primary Care Unavailable NO PCP, NO PCP Primary Care Unavailable ELIAN RODRIGUEZ Attending Unavailable ISAIAS ADDISON Attending Unavailable MICHAEL MEJIA Primary Care Unavailable NON STAFF Primary Care Provider Unavailyuriy Morejon MD, Flip Attending Provider Michael Mejia MD Primary Care Provider [phone] Asaad, Imad Admitting Unavailable Asaad, Imad Attending Unavailable NON STAFF Primary Care Unavailable Asaad, Imad Admitting Unavailable Asaad, Imad Attending Unavailable Michael Mejia Primary Care Unavailable Asaad, Imad Attending Unavailable Michael Mejia Primary Care Unavailable Asaad, Imad Admitting Unavailable Medications Current Medications Medication Drug Class(es) Dates Sig (Normalized) Sig (Original) acetaminophen 325 mg / oxyCODONE hydrochloride 5 mg oral tablet (1 source) Opioid Agonist Start: 07-24-2021 End: 07-26-2021 Percocet 325 mg-5 mg Tab 1 tab(s), Oral, q6hr for pain for 2 day(s), 7 tab(s), Refill(s) 0, [facility]/pharmacy #[id number], 161, cm, 06/25/21 13:03:00 EST, [...] by mouth 2 times daily 0 Active Kczygtia-Xna-Tq-FA ( VITAMINS PO) (5 sources) Zmsvtqrn-Yln-Iv-FA ( VITAMINS PO) Take by mouth 0 [...] Dysuria; Translations: [Dysuria] Onset: 12-10-2022 Episodic Hepatitis (1 source) Chronic viral hepatitis C; Translations: [Chronic viral hepatitis C] Onset: 05-03-2024 Chronic Hepatitis (7 sources) Viral hepatitis C; Translations: [...] source) Hypokalemia; Translations: [Hypokalemia] Onset: 4 Episodic Immunizations and screening for infectious disease [...] Test Name Value Interpretation Reference Range Facility liver 04-19-2024 [facility] Main [address] [address] Ultrasound Report Signed Patient: Sangeeta Nicholson MR#: [id number] : 1990 Acct:[id number] Age/Sex: 34 / F ADM Date: 04/19/24 Loc: Room: Type: [facility] Attending Dr: Flip Morejon MD Ordering Provider: Flip Morejon MD Date of Service: 04/19/24 US/US liver: B19.20 - Unspecified viral hepatitis C without hepatic coma Copies to: Flip Morejon MD LIMITED ABDOMINAL ULTRASOUND: CLINICAL HISTORY: Hepatitis C COMPARISON: None TECHNIQUE: Grayscale and color Doppler images of the right upper quadrant organs were obtained. FINDINGS: Pancreas: Visualized portions appear unremarkable. Liver: No mass or intrahepatic ductal dilatation. Hepatopedal flow is seen within the portal vein. Gallbladder: Unremarkable. CBD: 3 mm US/US liver IMPRESSION: NO ACUTE FINDINGS. NO HEPATIC MASS.. Impression dictated by: Alexis Kim Jr., D.OElfego04/19/2024 2:35 PM Dictation Location: [place] [address] Tech: Nahed Valero Transcribed By: RAMIN 04/19/24 1435 Dictated By: Alexis Kim Jr, DO 04/19/24 1435 Signed By: 04/19/24 1435 Normal [facility] CBC AND AUTO DIFFon 03-12-20 ABSOLUTE BASOPHIL 0.0 X10E9/L Normal 0.0-0.2 [facility] Comment on above: Performed By: #### [place], [address]-7, CBCA, 1987-, 3040-3 #### [facility] ([id number]) [address] [facility] [place] [facility] [place] [address] ABSOLUTE NEUTROPHIL 2.8 X10E9/L Normal 1.5-6.6 [facility] Comment on above: Performed By: #### C BRUCE, , CBCA, 1987-08, 3039-07 #### [facility] ([id number]) [address] [place] [address] Basophils/100 WBC (Bld) 0.0 % Normal [facility] Comment on above: Performed By: #### C BRUCE, , CBCA, 1987-08, 3039-07 #### [facility] ([id number]) [address] [place] [address] Eosinophils (Bld) [#/Vol] 0.0 10*3/uL Normal 0.0-0.4 [facility] Comment on above: Performed By: #### C BRUCE, , CBCA, 1987-08, 3039-07 #### [facility] ([id number]) [address] [place] [address] 42094 Eosinophils/100 WBC (Bld) 0.0 % Normal [facility] Comment on above: Performed By: #### Ethan BARRERA, , CBCA, 1987-08, 3039-07 #### [facility] ([id number]) [address] [place] [address] 69668 Erythrocyte distribution width (RBC) [Ratio] 16.6 % High 11.5-15.0 [facility] Comment on above: Performed By: #### C BRUCE, , CBCA, 1987-08, 3039-07 #### [facility] ([id number]) [address] [place] [address] 51065 Hematocrit (Bld) [Volume fraction] 38.7 % Normal 35-47 [facility] Comment on above: Performed By: #### C BRUCE, , CBCA, 1987-08, 3039-07 #### [facility] ([id number]) [address] [place] [address] 92527 Hemoglobin (Bld) [Mass/Vol] 13.1 g/dL Normal 11.7-15.5 [facility] Comment on above: Performed By: #### C BRUCE, , CBCA, 1987-08, 3039-07 #### [facility] ([id number]) [address] [place] [address] 72450 Lymphocytes (Bld) [#/Vol] 1.3 10*3/uL Normal 1.0-3.5 [facility] Comment on above: Performed By: #### Ethan BARRERA, , CBCA, 1987-08, 3039-07 #### [facility] ([id number]) [address] [place] [address] 03361 Lymphocytes/100 WBC (Bld) 30.7 % Normal [facility] Comment on above: Performed By: #### Ethan BARRERA, , CBCA, 1987-08, 3039-07 #### [facility] ([id number]) [address] [place] [address] 06612 MCH (RBC) [Entitic mass] 30.6 pg Normal 27-34 [facility] Comment on above: Performed By: #### Ethan BARRERA, , CBCA, 1987-08, 3039-07 #### [facility] ([id number]) [address] [place] [address] 30296 MCHC (RBC) [Mass/Vol] 33.8 g/dL Normal 32-36 [facility] Comment on above: Performed By: #### Ethan BARRERA, , CBCA, 1987-08, 3039-07 #### [facility] ([id number]) [address] [place] [address] 39057 MCV (RBC) [Entitic vol] 91 fL Normal 80-100 [facility] Comment on above: Performed By: #### C BRUCE, , CBCA, 1987-08, 3039-07 #### [facility] ([id number]) [address] [place] [address] 89834 Monocytes (Bld) [#/Vol] 0.2 10*3/uL Normal 0-0.9 [facility] Comment on above: Performed By: #### C BRUCE, , CBCA, 1987-08, 3039-07 #### [facility] ([id number]) [address] [place] [address] 44273 Monocytes/100 WBC (Bld) 4.5 % Normal [facility] Comment on above: Performed By: #### Ethan BARRERA, , CBCA, 1987-08, 3039-07 #### [facility] ([id number]) [address] [place] [address] 00348 Neutrophils/100 WBC (Bld) 64.8 % Normal [facility] Comment on above: Performed By: #### Ethan BARRERA, , CBCA, 1987-08, 3039-07 #### [facility] ([id number]) [address] [place] [address] 08770 Platelet mean volume (Bld) [Entitic vol] 8.8 fL Normal 7-12 [facility] Comment on above: Performed By: #### Ethan BARRERA, , CBCA, 1987-08, 3039-07 #### [facility] ([id number]) [address] [place] [address] 75990 Platelets (Bld) [#/Vol] 146 10*3/uL Low 150-450 [facility] Comment on above: Performed By: #### Ethan BARRERA, , CBCA, 1987-08, 3039-07 #### [facility] ([id number]) [address] [place] [address] 75555 RBC COUNT 4.28 X10E12/L Normal 3.80-5.20 [facility] Comment on above: Performed By: #### C BRUCE, , CBCA, 1987-08, 3039-07 #### [facility] ([id number]) [address] [place] [address] 55136 WBC (Bld) [#/Vol] 4.3 10*3/uL Normal 4.0-11.0 [facility] Comment on above: Performed By: #### C BRUCE, , CBCA, 1987-08, 3039-07 #### [facility] ([id number]) [address] [place] [address] 30033 COMPREHENSIVE METABOLIC PANE Elvin 03-12-2024 Albumin [Mass/Vol] 3.5 g/dL Normal 3.2-5.3 [facility] Comment on above: Performed By: #### C BRUCE, , CBCA, 1987-08, 3039-07 #### [facility] ([id number]) [address] [place] [address] 32507 ALP [Catalytic activity/Vol] 73 U/L Normal 39-130 [facility] Comment on above: Performed By: #### C BRUCE, , CBCA, 1987-08, 3039-07 #### [facility] ([id number]) [address] [place] [address] 63232 ALT [Catalytic activity/Vol] 56 U/L High 0-31 [facility] Comment on above: Performed By: #### C BRUCE, , CBCA, 1987-08, 3039-07 #### [facility] ([id number]) [address] [place] [address] 43439 Anion gap [Moles/Vol] 5 mmol/L Normal 5-15 [facility] Comment on above: Performed By: #### Ethan BARRERA, , CBCA, 1987-08, 3040-3 #### [facility] ([id number]) [address] [place] [address] 60551 AST [Catalytic activity/Vol] 50 U/L High 0-41 [facility] Comment on above: Performed By: #### Ethan BARRERA, , CBCA, 1987-08, 3039-07 #### [facility] ([id number]) [address] [place] [address] 71792 Bilirubin [Mass/Vol] 0.5 mg/dL Normal 0.3-1.2 [facility] Comment on above: Performed By: #### Ethan BARRERA, , CBCA, 1987-08, 3039-07 #### [facility] ([id number]) [address] [place] [address] 71055 Calcium [Mass/Vol] 9.7 mg/dL Normal 8.5-10.5 [facility] Comment on above: Performed By: #### Ethan BARRERA, , CBCA, 1987-08, 3039-07 #### [facility] ([id number]) [address] [place] [address] 75273 Chloride [Moles/Vol] 109 mmol/L Normal 98-109 [facility] Comment on above: Performed By: #### Ethan BARRERA, , CBCA, 1987-08, 3039-07 #### [facility] ([id number]) [address] [place] [address] 46296 CO2 [Moles/Vol] 25 mmol/L Normal 22-32 [facility] Comment on above: Performed By: #### Ethan BARRERA, , CBCA, 1987-08, 3039-07 #### [facility] ([id number]) [address] [place] [address] 45805 Creatinine [Mass/Vol] 0.63 mg/dL Normal 0.40-1.00 [facility] Comment on above: Result Comment: METH OD TRACEABLE TO IDMS STANDARD Performed By: #### C BRUCE, , CBCA, 1987-08, 3039-07 #### [facility] ([id number]) [address] [place] [address] 36489 eGFR (CKD-EPI) NON-RACE DEPENDENT >90 Normal >59 [facility] Comment on above: Result Comment: Reported eGFR is based on the CKD-EPI 2020 equation that does not use a race coefficient. Performed By: #### C BRUCE, , CBCA, 1987-08, 3039-07 #### [facility] ([id number]) [address] [place] [address] 17008 Glucose [Mass/Vol] 103 mg/dL High 65-99 [facility] Comment on above: Performed By: #### C BRUCE, , CBCA, 1987-08, 3039-07 #### [facility] ([id number]) [address] [place] [address] 99685 Potassium [Moles/Vol] 4.4 mmol/L Normal 3.5-5.0 [facility] Comment on above: Performed By: #### C BRUCE, , CBCA, 1987-08, 3039-07 #### [facility] ([id number]) [address] [place] [address] 59073 Protein [Mass/Vol] 5.6 g/dL Low 6.0-8.0 [facility] Comment on above: Performed By: #### C BRUCE, , CBCA, 1987-08, 3039-07 #### [facility] ([id number]) [address] [place] [address] 51720 Sodium [Moles/Vol] 139 mmol/L Normal 134-146 [facility] Comment on above: Performed By: #### C BRUCE, , CBCA, 1987-08, 3039-07 #### [facility] ([id number]) [address] [place] [address] 85177 Urea nitrogen [Mass/Vol] 18 mg/dL Normal 5-23 [facility] Comment on above: Performed By: #### C BRUCE, , CBCA, 1987-08, 3039-07 #### [facility] ([id number]) [address] [place] [address] 70578 DRUG SCREEN, URINEon 024 AMPHETAMINE/METHAMP Negative Normal NEG [facility] Comment on above: Result Comment: AMPH /METH screening cut off = 1000 ng/mL Performed By: #### C BRUCE, , CBCA, 1987-08, 3039-07 #### [facility] ([id number]) [address] [place] [address] 30204 BARBITURATES Negative Normal NEG [facility] Comment on above: Result Comment: Ana iturates screening cut off value = 200 ng/mL Performed By: #### C BRUCE, , CBCA, 1987-08, 3039-07 #### [facility] ([id number]) [address] [place] [address] 80979 BENZODIAZEPINES Negative Normal NEG [facility] Comment on above: Result Comment: Jeramie odiazepines screening cut off value = 200 ng/mL Performed By: #### Ethan BARRERA, , CBCA, 1987-08, 3039-07 #### [facility] ([id number]) [address] [place] [address] 50870 CANNABINOIDS Positive Abnormal NEG [facility] Comment on above: Result Comment: Conf irmation available upon request. Cannabinoids/THC screening cut off value = 50 ng/mL Performed By: #### C BRUCE, , CBCA, 1987-08, 3039-07 #### [facility] ([id number]) [address] [place] [address] 00890 COCAINE METABOLITE Negative Normal NEG [facility] Comment on above: Result Comment: Coca ine screening cut off value = 300 ng/mL Performed By: #### C BRUCE, , CBCA, 1987-08, 3039-07 #### [facility] ([id number]) [address] [place] [address] 37655 ECSTASY Negative Normal NEG [facility] Comment on above: Result Comment: Ecst asy screening cut off value = 500 ng/mL This report is intended for use in clinical monitoring or management of patients. Performed By: #### C BRUCE, , CBCA, 1987-08, 3039-07 #### [facility] ([id number]) [address] [place] [address] 51141 METHADONE Negative Normal [facility] Comment on above: Result Comment: Meth adone screening cut off value = 300 ng/mL. Performed By: #### C BRUCE, , MADELINA, 3039-07 #### [facility] ([id number]) [address] [place] [address] 03528 OPIATES Negative Normal [facility] Comment on above: Result Comment: Opia chalo screening cut off value = 300 ng/mL NOTE: This test is used for the detection of codeine, hydrocodone (>1000 ng/mL), morphine and hydromorphone (>900 ng/mL) in urine. Performed By: #### C BRUCE, , CBCA, 1987-08, 3039-07 #### [facility] ([id number]) [address] [place] [address] [place] [address] OXYCODONE Negative Normal NEG [facility] Comment on above: Result Comment: Oxyc odone screening cut off value = 300 ng/mL NOTE: This test is used for the detection of oxycodone and oxymorphone in urine. Performed By: #### C BRUCE, , CBCA, 1987-08, 3039-07 #### [facility] ([id number]) [address] [place] [address] 85452 PHENCYCLIDINE Negative Normal NEG [facility] Comment on above: Result Comment: Phen cyclidine screening cut off value = 25 ng/mL Performed By: #### C BRUCE, , CBCA, 1987-08, 3039-07 #### [facility] ([id number]) [address] [place] [address] 28130 ETHANOLon 03-12-2024 Ethanol [Mass/Vol] mg/dL Normal 0.00-0.08 [facility] Comment on above: Result Comment: This report is intended for use in clinical monitoring or management of patients. Performed By: #### C BRUCE, , CBCA, 1987-08, 3039-07 #### [facility] ([id number]) [address] [place] [address] 72951 HCG ( test) Ql (U)o n 03-12-2024 Beta HCG ( test) Ql (U) Negative Normal NEG [facility] Comment on above: Performed By: #### C BRUCE, , CBCA, 1987-08, 3039-07 #### [facility] ([id number]) [address] [place] [address] 88723 URN MACROSCOPIC NURon 2023 BILIRUBIN ERA Negative Normal NEG [facility] Comment on above: Performed By: #### C BRUCE, , CBCA, 1987-08, 3039-07 #### [facility] ([id number]) [address] [place] [address] 78733 BLOOD/HGB ERA Negative Normal NEG [facility] Comment on above: Performed By: #### C BRUCE, , CBCA, 1987-08, 3039-07 #### [facility] ([id number]) [address] [place] [address] 01455 GLUCOSE ERA Negative Normal NEG [facility] Comment on above: Performed By: #### C BRUCE, , CBCA, 1987-08, 3039-07 #### [facility] ([id number]) [address] [place] [address] [place] [address] KETONES ERA Negative Normal NEG [facility] Comment on above: Performed By: #### Ethan BARRERA, , CBCA, 1987-08, 3039-07 #### [facility] ([id number]) [address] [place] [address] [place] [address] LEUKOCYTE ESTERASE ERA Negative Normal NEG [facility] Comment on above: Performed By: #### C BRUCE, , CBCA, 1987-08, 3039-07 #### [facility] ([id number]) [address] [place] [address] 60623 NITRITE ERA Positive Abnormal NEG [facility] Comment on above: Performed By: #### Ethan BARRERA, , CBCA, 1987-08, 3039-07 #### [facility] ([id number]) [address] [place] [address] 75053 PH ERA 7.5 Normal 5.0-8.5 [facility] Comment on above: Performed By: #### Ethan BARRERA, , CBCA, 1987-08, 3039-07 #### [facility] ([id number]) [address] [place] [address] [place] [address] PROTEIN ERA Negative Normal NEG [facility] Comment on above: Performed By: #### Ethan BARRERA, , CBCA, 1987-08, 3039-07 #### [facility] ([id number]) [address] [place] [address] 73766 SPECIFIC GRAVITY ERA 1.020 Normal 1.003-1.035 [facility] Comment on above: Performed By: #### Ethan BARRERA, , CBCA, 1987-08, 3039-07 #### [facility] ([id number]) [address] [facility] [place] [facility] [place] [address] UROBILINOGEN ERA 2.0 eu/dL High <1.1 [facility] Comment on above: Performed By: #### [place], [address]-5, CBCA, 1987-08, 3039-07 #### [facility] ([id number]) [address] [facility] [place] [place] [address] Diagnostic impression interp retation by molecular genetics method narrativeOrdered By: Flip Morejon on 02-21-2024 Diagnostic impression Molgen Willi (Unsp spec) [Interp] Diagnostic impression [Interpretation] in Specimen Narrative . [facility] Comment on above: Positive HCV antibod y screen with the presence of HCV RNAis consistent with active infection.Performed at: - [facility] [address] [id number] Director: Jeff Pitt PhD, Phone: [phone] at: - [facility] [id number] Director: Vernon Church MD, Phone: [phone] Hep C Ab wRfx to Qnt PCRon 1 HCV Log10 6.708 Normal . [facility] Comment on above: Result Comment: Resu lt Units: log10 IU/mL Performed By: #### H AABT, HCV RX PCR, HBSAG, HBCAB, HCV RNA DIAG, HBSAB #### [facility] , Hepatitis C Quantitation [id number] Normal . [facility] Comment on above: Performed By: #### H AABT, HCV RX PCR, HBSAG, HBCAB, HCV RNA DIAG, HBSAB #### [facility] , Hepatitis C Virus Antibody Reactive Critically abnormal Non Reactive [facility] Comment on above: Performed By: #### H AABT, HCV RX PCR, HBSAG, HBCAB, HCV RNA DIAG, HBSAB #### [facility] , Interpretation Comment Normal . [facility] Comment on above: Result Comment: Posi tive HCV antibody screen with the presence of HCV RNA is consistent with active infection. Performed at: [address] [id number] [employer] Operator: Jeff Pitt PhD, Phone: [phone] Performed at: [facility] [id number] [employer] Operator: Vernon Church MD, Phone: [phone] Performed By: #### H AABT, HCV RX PCR, HBSAG, HBCAB, HCV RNA DIAG, HBSAB #### [facility] , Hep C RNA Diagnosison 2023 HCV RNA log10, Confirm 6.805 Normal . [facility] Comment on above: Result Comment: Resu lt Units: log10 IU/mL PERFORMED BY: [place] [address] [place] [address] PATHOLOGIST [employer] PREPARER PALMIRA GLEZ M.D. Performed By: #### H AABT, HCV RX PCR, HBSAG, HBCAB, HCV RNA DIAG, HBSAB #### [facility] , HCV RNA, Quant, Confirm [id number] Normal . [facility] Comment on above: Result Comment: HCV RNA detected HCV RNA viral loads >/= 25 IU/mL indicate current HCV infection. Performed By: #### H AABT, HCV RX PCR, HBSAG, HBCAB, HCV RNA DIAG, HBSAB #### [facility] , HCV RNA, Quantitation See Final Results Normal . [facility] Comment on above: Performed By: #### H AABT, HCV RX PCR, HBSAG, HBCAB, HCV RNA DIAG, HBSAB #### [facility] , Test Information: Comment Normal . [facility] Comment on above: Result Comment: The quantitative range of this assay is 15 IU/mL to 100 million IU/mL. Performed at: [address] [id number] [employer] Operator: Vernon Church MD, Phone: [phone] Performed By: #### H AABT, HCV RX PCR, HBSAG, HBCAB, HCV RNA DIAG, HBSAB #### [facility] , Result Comment: The quantitative range of this assay is 15 IU/mL to 100 million IU/mL. Hepatitis A Antibody Totalon 02-21-2024 Hepatitis A Antibody Total Negative Normal Negative [facility] Comment on above: Result Comment: Comm ent: The HAV total antibody assay detects both IgG and IgM but does not differentiate between them. A negative result suggests susceptibility to infection. A positive result could be due to vaccination, previously resolved infection or active infection. Testing for HAV IgM should be performed if active HAV infection is suspected. [facility] offers profiles that will automatically reflex positive HAV total antibody results to IgM (e.g., panel #[id number] HAV Antibody w/ Rfx). Performed at: [facility] [id number] [employer] Operator: Jeff Pitt PhD, Phone: [phone] Performed By: #### H AABT, HCV RX PCR, HBSAG, HBCAB, HCV RNA DIAG, HBSAB #### [facility] , Hepatitis A virus Ab [Presen ce] in Serum by ImmunoassayOrdered By: Flip Morejon on 02-21-2024 HAV Ab IA Ql (S) Hepatitis A virus Ab [Presence] in Serum by Immunoassay Negative [facility] Comment on above: Comment: The HAV tot al antibody assay detects both IgG andIgM but does not differentiate between them. A negativeresult suggests susceptibility to infection. A positiveresult could be due to vaccination, previously resolvedinfection or active infection. Testing for HAV IgM shouldbe performed if active HAV infection is suspected. [facility] that will automatically reflex positive HAVtotal antibody results to IgM (e.g., panel #[id number] HAVAntibody w/ Rfx).Performed at: [facility] [id number] Director: Jeff Pitt PhD, Phone: [phone] Hepatitis B Core Antibodyon 02-21-2024 Hepatitis B Core Antibody Positive Critically abnormal Negative [facility] Comment on above: Performed By: #### H AABT, HCV RX PCR, HBSAG, HBCAB, HCV RNA DIAG, HBSAB #### [facility] , Hepatitis B Surface Antibody on 02-21-2024 Hepatitis B Surface Antibody Reactive Normal . [facility] Comment on above: Result Comment: [...] 02-21-2024 HBsAg Screen Negative Normal Negative [facility] Comment on above: Result Comment: PERF ORMED BY: [facility] [address] [place] [address] PATHOLOGIST WARP PREPARER PALMIRA GLEZ M.D. Performed By: #### H AABT, HCV RX PCR, HBSAG, HBCAB, HCV RNA DIAG, HBSAB #### [facility] , Hepatitis B virus core antib geovany assayOrdered By: Imad Asaad on 02-21-2024 Hepatitis B Core Total Antibody Positive Abnormal Negative [facility] Hepatitis C virus IgG Ab [Pr esence] in Serum or Plasma by ImmunoassayOrdered By: Imad Asaad on 02-21-2024 HCV IgG IA Ql Hepatitis C virus Ig G Ab [Presence] in Serum or Plasma by Immunoassay Abnormal Non Reactive [facility] Hepatitis C virus RNA [Units /volume] (viral load) in Serum or Plasma by BETZAIDA with probOrdered By: Imad Asaad on 02-21-2024 HCV RNA BETZAIDA+probe Qn Hepatitis C virus R NA [Units/volume] (viral load) in Serum or Plasma by BETZAIDA with prob . [facility] Comment on above: HCV RNA detectedHCV RNA viral loads >/= 25 IU/mL indicate current HCVinfection. Hepatitis C virus RNA [log u nits/volume] (viral load) in Serum or Plasma by BETZAIDA withOrdered By: Imad Asaad on 02-21-2024 HCV RNA BETZAIDA+probe [Log units/Vol] Hepatitis C virus RNA [log units/volume] (viral load) in Serum or Plasma by BETZAIDA with . [facility] Comment on above: Result Units: log10 IU/mL No Panel InformationOrdered By: Flip Morejon on 02-21-2024 Hepatitis C RNA Qnt (PCR) Test Info Comment . [facility] Comment on above: The quantitative ran ge of this assay is 15 IU/mL to 100million IU/mL. Hepatitis Comment Comment . [facility] Comment on above: The quantitative ran ge of this assay is 15 IU/mL to 100million IU/mL.Performed at: [address] [id number] Director: Vernon Church MD, Phone: [phone] Serum hepatitis B virus surf kelsey antibody detectionOrdered By: Flip Morejon on 02-21-2024 HBV surface Ab Ql (S) Hepatitis B virus surface Ab [Presence] in Serum . [facility] Comment on above: Non Reactive: Not im mune to HBV infection. Equivocal: Unable to determine if anti-HBs is present at levels consistent with immunity. Reactive: Anti-HBs concentration detected at greater than 10 mIU/mL. Individual is considered to be immune to infection with HBV. Serum or plasma hepatitis B virus surface antigen detection by immunoassayOrdered By: Flip Morejon on 02-21-2024 HBV surface Ag IA Ql Hepatitis B virus s urface Ag [Presence] in Serum or Plasma by Immunoassay Negative [facility] Serum or plasma hepatitis C virus genotype identification by probe and target amplifiOrdered By: Flip Morejon on 02-21-2024 HCV genotype BETZAIDA+probe Nom HCV genotyping ser/plas amplified probe . [facility] Comment on above: This test was develo ped and its performance characteristicsdetermined by [employer]. It has not been cleared orapproved by the Food and Drug Administration.Performed at: [address] [id number] Director: Vernon Church MD, Phone: [phone] PAP [id number] 02-15-2024 Cytology report Cyto stain Doc (Cvx/Vag) Note Invalid Interpretation Code [facility] Comment on above: Result Comment: TEST S RESULT FLAG UNITS REF RANGE LAB Clinician Provided Cytology Information Source.............Cervix No. of containers..01 ThinPrep Vial DIAGNOSIS: 01 NEGATIVE FOR INTRAEPITHELIAL LESION OR MALIGNANCY. Specimen adequacy: 01 Satisfactory for evaluation. Endocervical and/or squamous metaplastic cells (endocervical component) are present. Performed by: 01 Colette Clark, R D Engineer ([facility]) . 01 Note: Note 01 The Pap [...] Low,>-Panic High,A-Abnormal,AA-Critical Abnormal Performed at: [address] [place] [address] Ragini Lundberg MD, Performed By: #### 3 [id number] #### [facility] [address] [place] [address] HPV 16+18+31+33+35+39+45 +51+52+56+58+59+66+6 8 DNA Probe+sig amp Ql (Cvx) Negative Invalid Interpretation Code Negative [facility] Comment on above: Result Comment: This nucleic acid amplification test detects fourteen high-risk HPV types (16,18,31,33,35,39,45,51,52,56,58,59,66,68) without differentiation. Performed at: [facility] [address] [facility], [place] [id number] MD Tamika Eid Performed at: =G [facility] [address] [place], [place] [id number] MD Tamika Eid Performed By: #### 3 [id number] #### [facility] [address] [place] [address] PAP [id number] 02-10-2024 Collection Technique BRUSH-SPATULA Normal F [facility] Comment on above: Performed By: #### 3 [id number] #### [facility] [address] [place] [address] Gynecological Body Site CERVIX Normal [facility] Comment on above: Performed By: #### 3 [id number] #### [facility] [address] [place] [address] CBC AND AUTO DIFFon 01-14-20 24 ABSOLUTE BASOPHIL 0.0 X10E9/L Normal 0.0-0.2 [facility] Comment on above: Performed By: #### A HP #### [facility] ([id number]) [address] [place] [address], [address] [place] [address] #### [id number] #### [facility] ([id number]) [address] [place] [address] ABSOLUTE NEUTROPHIL 1.5 X10E9/L Normal 1.5-6.6 [facility] Comment on above: Performed By: #### A HP #### [facility] ([id number]) [address] [place] [address], [address] [place] [address] #### 81905-7 #### [facility] ([id number]) [address] [place] [address]75 Basophils/100 WBC (Bld) 0.0 % Normal [facility] Comment on above: Performed By: #### A HP #### [facility] ([id number]) [address] [address] #### 52693-3 #### [facility] ([id number]) [address] [place] [address] Eosinophils (Bld) [#/Vol] 0.0 10*3/uL Normal 0.0-0.4 [facility] Comment on above: Performed By: #### A HP #### [facility] ([id number]) [address] [place] [address] #### 85382-4 #### [facility] ([id number]) [address] [place] [address] 35543 Eosinophils/100 WBC (Bld) 0.0 % Normal [facility] Comment on above: Performed By: #### A HP #### [facility] ([id number]) [address] [place] [address] #### 17051-6 #### [facility] ([id number]) [address] [place] [address] Erythrocyte distribution width (RBC) [Ratio] 14.1 % Normal 11.5-15.0 [facility] Comment on above: Performed By: #### A HP #### [facility] ([id number]) [address] [place] [address] #### 86836-1 #### [facility] ([id number]) [address] [place] [address] 13161 Hematocrit (Bld) [Volume fraction] 37.3 % Normal 35-47 [facility] Comment on above: Performed By: #### A HP #### [facility] ([id number]) [address] [place] [address] [address] [place] [address] #### 52255-8 #### [facility] ([id number]) [address] [place] [address]67 Hemoglobin (Bld) [Mass/Vol] 12.6 g/dL Normal 11.7-15.5 [facility] Comment on above: Performed By: #### A HP #### [facility] ([id number]) [address] [place] [address] [address] [place] [address] #### 72208-9 #### [facility] ([id number]) [address] [place] [address]88 Lymphocytes (Bld) [#/Vol] 1.2 10*3/uL Normal 1.0-3.5 [facility] Comment on above: Performed By: #### A #### [facility] ([id number]) [address] [place] [address] #### 85503-9 #### [facility] ([id number]) [address] [place] [address] 80931 Lymphocytes/100 WBC (Bld) 41.9 % Normal [facility] Comment on above: Performed By: #### A HP #### [facility] ([id number]) [address] [place] [address] [address] [place] [address] #### 91943-3 #### [facility] ([id number]) [address] [place] [address] 87497 MCH (RBC) [Entitic mass] 30.1 pg Normal 27-34 [facility] Comment on above: Performed By: #### A HP #### [facility] ([id number]) [address] [place] [address] [address] [place] [address] #### 04215-4 #### [facility] ([id number]) [address] [place] [address] MCHC (RBC) [Mass/Vol] 33.7 g/dL Normal 32-36 [facility] Comment on above: Performed By: #### A HP #### [facility] ([id number]) 0 [facility], [address] [address] #### 93261-4 #### [facility] ([id number]) [address] [place] [address] 11915 MCV (RBC) [Entitic vol] 90 fL Normal 80-100 [facility] Comment on above: Performed By: #### A HP #### [facility] ([id number]) 0 [facility], [facility] [address] [place] [address] #### 84391-2 #### [facility] ([id number]) [address] [place] [address] Monocytes (Bld) [#/Vol] 0.2 10*3/uL Normal 0-0.9 [facility] Comment on above: Performed By: #### A HP #### [facility] ([id number]) [address] [facility], [address] [address] #### 34189-9 #### [facility] ([id number]) [address] [place] [address] Monocytes/100 WBC (Bld) 6.2 % Normal [facility] Comment on above: Performed By: #### A HP #### [facility] ([id number]) [address] [facility], [facility] [address] [place] [address] #### 20616-9 #### [facility] ([id number]) [address] [place] [address] 38534 Neutrophils/100 WBC (Bld) 51.9 % Normal [facility] Comment on above: Performed By: #### A HP #### [facility] ([id number]) [address] [facility], [address] [place] [address] #### 60157-8 #### [facility] ([id number]) [address] [place] [address] 68969 Platelet mean volume (Bld) [Entitic vol] 8.7 fL Normal 7-12 [facility] Comment on above: Performed By: #### A HP #### [facility] ([id number]) [address] [facility], [facility] [address] [place] [address] #### 23226-4 #### [facility] ([id number]) [address] [place] [address] 096[address] Platelets (Bld) [#/Vol] 106 10*3/uL Low 150-450 [facility] Comment on above: Performed By: #### A HP #### [facility] ([id number]) [address] [facility], [address] [place] [address] #### 45062-1 #### [facility] ([id number]) [address] [place] [address] 29499 RBC COUNT 4.17 X10E12/L Normal 3.80-5.20 [facility] Comment on above: Performed By: #### A HP #### [facility] ([id number]) [address] [facility], [address] [place] [address] #### 57655-9 #### [facility] ([id number]) [address] [place] [address] 95187 WBC (Bld) [#/Vol] 2.9 10*3/uL Low 4.0-11.0 [facility] Comment on above: Performed By: #### A HP #### [facility] ([id number]) [address] [facility], [address] [place] [address] #### 29692-8 #### [facility] ([id number]) [address] [place] [address] COMPREHENSIVE METABOLIC PANE Elvin 01-14-2024 Albumin [Mass/Vol] 3.2 g/dL Normal 3.2-5.3 [facility] Comment on above: Performed By: #### A HP #### [facility] ([id number]) [address] [facility], [address] [place] [address] #### 72455-0 #### [facility] ([id number]) [address] [place] [address]504 ALP [Catalytic activity/Vol] 72 U/L Normal 39-130 [facility] Comment on above: Performed By: #### A HP #### [facility] ([id number]) [address] [facility], [address] [place] [address] #### 01364-9 #### [facility] ([id number]) [address] [place] [address] 35785 ALT [Catalytic activity/Vol] 64 U/L High 0-31 [facility] Comment on above: Performed By: #### A HP #### [facility] ([id number]) [address] [facility], [address] [place] [address] #### 21293-9 #### [facility] ([id number]) [address] [place] [address] 70719 Anion gap [Moles/Vol] 3 mmol/L Low 5-15 [facility] Comment on above: Performed By: #### A HP #### [facility] ([id number]) [address] [facility], [address] [place] [address] #### 55133-9 #### [facility] ([id number]) [address] [place] [address] 52505 AST [Catalytic activity/Vol] 52 U/L High 0-41 [facility] Comment on above: Performed By: #### A HP #### [facility] ([id number]) [address] [facility], [address] [place] [address] #### 49886-9 #### [facility] ([id number]) [address] [place] [address] 07899 Bilirubin [Mass/Vol] 0.5 mg/dL Normal 0.3-1.2 [facility] Comment on above: Performed By: #### A HP #### [facility] ([id number]) [address] [facility], [address] [address] #### 46133-7 #### [facility] ([id number]) [address] [place] [address] 27824 Calcium [Mass/Vol] 8.6 mg/dL Normal 8.5-10.5 [facility] Comment on above: Performed By: #### A HP #### [facility] ([id number]) [address] [place] [address], [address] [address] #### 02404-1 #### [facility] ([id number]) [address] [place] [address]8541 Chloride [Moles/Vol] 112 mmol/L High 98-109 [facility] Comment on above: Performed By: #### A HP #### [facility] ([id number]) [address] [address] #### 08479-7 #### [facility] ([id number]) [address] [place] [address] 18442 CO2 [Moles/Vol] 25 mmol/L Normal 22-32 [facility] Comment on above: Performed By: #### A HP #### [facility] ([id number]) [facility]0 [facility], [address] [place] [address] #### 23615-9 #### [facility] ([id number]) [address] [place] [address] Creatinine [Mass/Vol] 0.60 mg/dL Normal 0.40-1.00 [facility] Comment on above: Result Comment: METH OD TRACEABLE TO IDMS STANDARD Performed By: #### A HP #### [facility] ([id number]) [address] [place] [address], [address] [place] [address] #### 36174-2 #### [facility] ([id number]) [address] [place] [address] eGFR (CKD-EPI) NON-RACE DEPENDENT >90 Normal >59 [facility] Comment on above: Result Comment: Reported eGFR is based on the CKD-EPI 2020 equation that does not use a race coefficient. Performed By: #### A HP #### [facility] ([id number]) [address] [place] [address], [address] [place] [address] #### 21876-6 #### [facility] ([id number]) [address] [place] [address]60 Glucose [Mass/Vol] 94 mg/dL Normal 65-99 [facility] Comment on above: Performed By: #### A HP #### [facility] ([id number]) [address] [place] [address], [address] [place] [address] #### 74465-6 #### [facility] ([id number]) [address] [place] [address] Potassium [Moles/Vol] 3.4 mmol/L Low 3.5-5.0 [facility] Comment on above: Performed By: #### A HP #### [facility] ([id number]) [address] [facility], [address] [place] [address] #### 44438-0 #### [facility] ([id number]) [address] [place] [address] 08157 Protein [Mass/Vol] 5.1 g/dL Low 6.0-8.0 [facility] Comment on above: Performed By: #### A HP #### [facility] ([id number]) [address] [facility], [address] [place] [address] #### 74112-5 #### [facility] ([id number]) [address] [place] [address] 17264 Sodium [Moles/Vol] 140 mmol/L Normal 134-146 [facility] Comment on above: Performed By: #### A HP #### [facility] ([id number]) [address] [place] [address], [address] [place] [address] #### 06361-1 #### [facility] ([id number]) [address] [place] [address] 00927 Urea nitrogen [Mass/Vol] 12 mg/dL Normal 5-23 [facility] Comment on above: Performed By: #### A HP #### [facility] ([id number]) [address] [facility], [address] [place] [address] #### 25868-3 #### [facility] ([id number]) [address] [place] [address]1938 HCG ( test) Ql (U)o n 01-14-2024 Beta HCG ( test) Ql (U) Negative Normal NEG [facility] Comment on above: Performed By: #### [place], [address]-2, CBCA, 1988-5, 3040-3 #### [facility] ([id number]) [address] [place] [address]69 MAGNESIUMon 01-14-2024 Magnesium [Mass/Vol] 1.8 mg/dL Normal 1.8-2.6 [facility] Comment on above: Performed By: #### A HP #### [facility] ([id number]) [address] [facility], [address] [place] [address] #### 79773-0 #### [facility] ([id number]) [address] [place] [address]65[address] Troponin I.cardiac High sens itivity method [Mass/Vol]on 01-14-2024 TROPONIN I, HIGH SENSITIVITY 4 ng/L Normal <16 [facility] Comment on above: Performed By: #### A HP #### [facility] ([id number]) [address] [facility], [address] [place] [address] #### 23606-3 #### [facility] ([id number]) [address] [place] [address]22 URN MACROSCOPIC NURon 2023 BILIRUBIN ERA Negative Normal NEG [facility] Comment on above: Performed By: #### A HP #### [facility] ([id number]) [address] [place] [address], [address] [place] [address] #### 08896-1 #### [facility] ([id number]) [address] [place] [address]48 BLOOD/HGB ERA Negative Normal NEG [facility] Comment on above: Performed By: #### A HP #### [facility] ([id number]) 0 [facility], [address] [place] [address] #### 43682-1 #### [facility] ([id number]) [address] [place] [address] GLUCOSE ERA Negative Normal NEG [facility] Comment on above: Performed By: #### A HP #### [facility] ([id number]) [address], [address] [place] [address] #### 77782-8 #### [facility] ([id number]) [address] [place] [address] 003[address] KETONES ERA Negative Normal NEG [facility] Comment on above: Performed By: #### A HP #### [facility] ([id number]) [address], [address] [place] [address] #### 25131-5 #### [facility] ([id number]) [address] [place] [address] 69794 LEUKOCYTE ESTERASE ERA Negative Normal NEG [facility] Comment on above: Performed By: #### A HP #### [facility] ([id number]) [address], [address] [place] [address] #### 78218-6 #### [facility] ([id number]) [address] [place] [address] 94865 NITRITE ERA Positive Abnormal NEG [facility] Comment on above: Performed By: #### A HP #### [facility] ([id number]) [address], [address] [place] [address] #### 48391-9 #### [facility] ([id number]) [address] [place] [address] 24270 PH ERA 6.0 Normal 5.0-8.5 [facility] Comment on above: Performed By: #### A HP #### [facility] ([id number]) [address], [address] [place] [address] #### 61544-1 #### [facility] ([id number]) [address] [place] [address] 25239 PROTEIN ERA Negative Normal NEG [facility] Comment on above: Performed By: #### A HP #### [facility] ([id number]) [address] [facility], [address] [place] [address] #### 43536-1 #### [facility] ([id number]) [address] [place] [address] 41513 SPECIFIC GRAVITY ERA >=1.030 Normal 1.003-1.035 [facility] Comment on above: Performed By: #### A HP #### [facility] ([id number]) [address] [place] [address], [address] [place] [address] #### 65685-5 #### [facility] ([id number]) [address] [place] [address] 22988 UROBILINOGEN ERA 1.0 eu/dL Normal <1.1 [facility] Comment on above: Performed By: #### A HP #### [facility] ([id number]) [address] [place] [address], [address] [place] [address] #### 96589-2 #### [facility] ([id number]) [address] [place] [address] 28571 HGB A1C (GLYCO-HGB)on 2023 Glucose [Mass/Vol] 117 mg/dL Normal [facility] Comment on above: Performed By: #### A HP #### [facility] ([id number]) [address] [place] [address], [address] [place] [address] #### 87770-7 #### [facility] ([id number]) [address] [place] [address] 58929 HbA1c (Bld) [Mass fraction] 5.7 % High 4.4-5.6 [facility] Comment on above: Result Comment: NOTE ADA Guidelines Result HgbA1c Normal : less than 5.7 % Prediabetes : 5.7 % to 6.4 % Diabetes : > 6.4 % Use with caution in patients with abnormal hemoglobin variants as the half-life of red blood cells and in vivo glycation rates are affected. Performed By: #### A HP #### [facility] ([id number]) [address] [place] [address], [address] [place] [address] #### 65027-6 #### [facility] ([id number]) [address] [place] [address] 19938 Lipid 1996 panelon 4 Cholesterol [Mass/Vol] 99 mg/dL Low 150-200 [facility] Comment on above: Performed By: #### A HP #### [facility] ([id number]) [address] [place] [address], [address] [address] #### 97642-6 #### [facility] ([id number]) [address] [place] [address] 26346 Cholesterol in HDL [Mass/Vol] 29 mg/dL Low >39 [facility] Comment on above: Result Comment: HDL <40 mg/dL - High Risk HDL > or = 40mg/dL- Desirable HDL >60 mg/dL - Negative Risk Performed By: #### A HP #### [facility] ([id number]) [address] [place] [address], [address] [place] [address] #### 94802-1 #### [facility] ([id number]) [address] [place] [address] 34178 Cholesterol in LDL [Mass/Vol] 44 mg/dL Normal <130 [facility] Comment on above: Result Comment: LDL <100 mg/dL - Desirable LDL >160 mg/dL - High Risk Performed By: #### A HP #### [facility] ([id number]) [address], [address] [place] [address] #### 68900-1 #### [facility] ([id number]) [address] [place] [id number] Cholesterol in VLDL [Mass/Vol] 26 mg/dL Normal 0-30 [facility] Comment on above: Performed By: #### A HP #### [facility] ([id number]) [address] [place] [address] #### [id number] #### [facility] ([id number]) [address] [place] [id number] CHOLESTEROL:HDL 3.4 Normal 1.0-5.0 [facility] Comment on above: Performed By: #### A HP #### [facility] ([id number]) [address], [address] [place] [address] #### [id number] #### [facility] ([id number]) [address] [place] [id number] Triglyceride [Mass/Vol] 131 mg/dL Normal 27-150 [facility] Comment on above: Performed By: #### A HP #### [facility] ([id number]) [address], [address] [place] [address] #### [id number] #### [facility] ([id number]) [address] [place] [address] Reference Lab Test IDon 05-0 VIT D 1 25 DIHYDROXY See Below Normal [facility] Comment on above: Result Comment: NOTE TEST RESULT FLAG UNIT REF.RANGE ----- Vit D,1,25 Dihydroxy 59.9 pg/mL 19.9-79.3 Test Performed By: [facility] [address] [place] [address] Worsted Winder: Krishna Mehta IIIIA #[id number] Performed By: #### A HP #### [facility] ([id number]) [address] [place] [address], [address] [place] [address] #### 27548-3 #### [facility] ([id number]) [address] [place] [address]30 TSH WITH REFLEXon 09-08-2023 TSH 1.36 uIU/mL Normal 0.49-4.67 [facility] Comment on above: Performed By: #### A HP #### [facility] ([id number]) [address] [place] [address], [address] [place] [address] #### 25499-7 #### [facility] ([id number]) [address] [place] [address] 92109 CBC AND AUTO DIFFon 08-19-19 24 Anisocytosis Ql (Bld) 2+ Abnormal NONE [facility] Comment on above: Performed By: #### C BRUCE, , CBCA, 3 #### [facility] ([id number]) [address] [place] [address] 11016 Erythrocyte distribution width (RBC) [Ratio] 23.1 % High 11.5-15.0 [facility] Comment on above: Performed By: #### C BRUCE, , CBCA, 3 #### [facility] ([id number]) [address] [place] [address] Hematocrit (Bld) [Volume fraction] 26.3 % Low 35-47 [facility] Comment on above: Performed By: #### C BRUCE, , CBCA, 1987-08, 3039-07 #### [facility] ([id number]) [address] [place] [address] 62862 Hemoglobin (Bld) [Mass/Vol] 9.3 g/dL Low 11.7-15.5 [facility] Comment on above: Performed By: #### C BRUCE, , CBCA, 1987-08, 3039-07 #### [facility] ([id number]) [address] [place] [address] 67341 Lymphocytes (Bld) [#/Vol] 1.0 10*3/uL Normal 1.0-3.5 [facility] Comment on above: Performed By: #### Ethan BARRERA, , CBCA, 1987-08, 3039-07 #### [facility] ([id number]) [address] [place] [address] 96033 Lymphocytes/100 WBC (Bld) 48.0 % Normal [facility] Comment on above: Performed By: #### Ethan BARRERA, , CBCA, 1987-08, 3039-07 #### [facility] ([id number]) [address] [place] [address] 25160 MCH (RBC) [Entitic mass] 42.6 pg High 27-34 [facility] Comment on above: Performed By: #### Ethan BARRERA, , CBCA, 1987-08, 3039-07 #### [facility] ([id number]) [address] [place] [address] 31873 MCHC (RBC) [Mass/Vol] 35.5 g/dL Normal 32-36 [facility] Comment on above: Performed By: #### Ethan BARRERA, , CBCA, 1987-08, 3039-07 #### [facility] ([id number]) [address] [place] [address] 54548 MCV (RBC) [Entitic vol] 120 fL High 80-100 [facility] Comment on above: Performed By: #### C BRUCE, , CBCA, 1987-08, 3039-07 #### [facility] ([id number]) [address] [place] [address] 68001 Monocytes (Bld) [#/Vol] 0.2 10*3/uL Normal 0-0.9 [facility] Comment on above: Performed By: #### Ethan BARRERA, , CBCA, 1987-08, 3039-07 #### [facility] ([id number]) [address] [place] [address] 75164 Monocytes/100 WBC (Bld) 7.0 % Normal [facility] Comment on above: Performed By: #### C BRUCE, , CBCA, 1987-08, 3039-07 #### [facility] ([id number]) [address] [place] [address] 96341 Neutrophils (Bld) [#/Vol] 1.0 10*3/uL Low 1.5-6.6 [facility] Comment on above: Performed By: #### Ethan BARRERA, , CBCA, 1987-08, 3039-07 #### [facility] ([id number]) [address] [place] [address] 45889 Platelet mean volume (Bld) [Entitic vol] 8.3 fL Normal 7-12 [facility] Comment on above: Performed By: #### Ethan BARRERA, , CBCA, 1987-08, 3039-07 #### [facility] ([id number]) [address] [place] [address] 45612 Platelets (Bld) [#/Vol] 122 10*3/uL Low 150-450 [facility] Comment on above: Performed By: #### C BRUCE, , CBCA, 1987-08, 3039-07 #### [facility] ([id number]) [address] [place] [address] 52724 RBC COUNT 2.19 X10E12/L Low 3.80-5.20 [facility] Comment on above: Performed By: #### Ethan BARRERA, , CBCA, 1987-08, 3039-07 #### [facility] ([id number]) [address] [place] [address] 15189 SEG NEUTROPHIL 45.0 % Normal [facility] Comment on above: Performed By: #### Ethan BARRERA, , CBCA, 1987-08, 3039-07 #### [facility] ([id number]) [address] [place] [address] 91814 TEARDROP 1+ Abnormal NONE [facility] Comment on above: Performed By: #### Ethan BARRERA, , CBCA, 1987-08, 3039-07 #### [facility] ([id number]) [address] [place] [address] 06491 WBC (Bld) [#/Vol] 2.2 10*3/uL Low 4.0-11.0 [facility] Comment on above: Performed By: #### Ethan BARRERA, , CBCA, 1987-08, 3039-07 #### [facility] ([id number]) [address] [place] [address] 74604 COMPREHENSIVE METABOLIC PANE Elvin 08-19-2023 Albumin [Mass/Vol] 3.3 g/dL Normal 3.2-5.3 [facility] Comment on above: Performed By: #### Ethan BARRERA, , CBCA, 1987-08, 3039-07 #### [facility] ([id number]) [address] [place] [address] 43157 ALP [Catalytic activity/Vol] 50 U/L Normal 39-130 [facility] Comment on above: Performed By: #### C BRUCE, , CBCA, 1987-08, 3039-07 #### [facility] ([id number]) [address] [place] [address] 13762 ALT [Catalytic activity/Vol] 26 U/L Normal 0-31 [facility] Comment on above: Performed By: #### C BRUCE, , CBCA, 1987-08, 3039-07 #### [facility] ([id number]) [address] [place] [address] 57695 Anion gap [Moles/Vol] 5 mmol/L Normal 5-15 [facility] Comment on above: Performed By: #### Ethan BARRERA, , CBCA, 1987-08, 3039-07 #### [facility] ([id number]) [address] [place] [address] 71305 AST [Catalytic activity/Vol] 29 U/L Normal 0-41 [facility] Comment on above: Performed By: #### Ethan BARRERA, , CBCA, 1987-08, 3039-07 #### [facility] ([id number]) [address] [place] [address] 14802 Bilirubin [Mass/Vol] 1.2 mg/dL Normal 0.3-1.2 [facility] Comment on above: Performed By: #### Ethan BARRERA, , CBCA, 1987-08, 3039-07 #### [facility] ([id number]) [address] [place] [address] 43542 Calcium [Mass/Vol] 9.0 mg/dL Normal 8.5-10.5 [facility] Comment on above: Performed By: #### Ethan BARRERA, , CBCA, 1987-08, 3039-07 #### [facility] ([id number]) [address] [place] [address] 86695 Chloride [Moles/Vol] 107 mmol/L Normal 98-109 [facility] Comment on above: Performed By: #### C BRUCE, , CBCA, 1987-08, 3039-07 #### [facility] ([id number]) [address] [place] [address] 66790 CO2 [Moles/Vol] 27 mmol/L Normal 22-32 [facility] Comment on above: Performed By: #### C BRUCE, , CBCA, 1987-08, 3039-07 #### [facility] ([id number]) [address] [place] [address] 75238 Creatinine [Mass/Vol] 0.53 mg/dL Normal 0.40-1.00 [facility] Comment on above: Result Comment: METH OD TRACEABLE TO IDMS STANDARD Performed By: #### C BRUCE, , CBCA, 1987-08, 3039-07 #### [facility] ([id number]) [address] [place] [address] 57602 eGFR (CKD-EPI) NON-RACE DEPENDENT >90 Normal >59 [facility] Comment on above: Result Comment: Reported eGFR is based on the CKD-EPI 2020 equation that does not use a race coefficient. Performed By: #### C BRUCE, , CBCA, 1987-08, 3039-07 #### [facility] ([id number]) [address] [place] [address] 66994 Glucose [Mass/Vol] 94 mg/dL Normal 65-99 [facility] Comment on above: Performed By: #### C BRUCE, , CBCA, 1987-08, 3039-07 #### [facility] ([id number]) [address] [place] [address] 60324 Potassium [Moles/Vol] 3.2 mmol/L Low 3.5-5.0 [facility] Comment on above: Performed By: #### C BRUCE, , CBCA, 1987-08, 3039-07 #### [facility] ([id number]) [address] [place] [address] 93813 Protein [Mass/Vol] 5.5 g/dL Low 6.0-8.0 [facility] Comment on above: Performed By: #### C BRUCE, , CBCA, 1987-08, 3039-07 #### [facility] ([id number]) [address] [place] [address] 62475 Sodium [Moles/Vol] 139 mmol/L Normal 134-146 [facility] Comment on above: Performed By: #### C BRUCE, , CBCA, 1987-08, 3039-07 #### [facility] ([id number]) [address] [place] [address] 53678 Urea nitrogen [Mass/Vol] 11 mg/dL Normal 5-23 [facility] Comment on above: Performed By: #### C BRUCE, , CBCA, 1987-08, 3039-07 #### [facility] ([id number]) [address] [place] [address] 61949 CRP [Mass/Vol]on 08-19-2023 C REACTIVE PROTEIN 0.9 mg/dL High 0.000-0.744 [facility] Comment on above: Performed By: #### C BRUCE, , CBCA, 1987-08, 3039-07 #### [facility] ([id number]) [address] [place] [address] 61311 DRUG SCREEN, URINEon 024 AMPHETAMINE/METHAMP Negative Normal NEG [facility] Comment on above: Result Comment: AMPH /METH screening cut off = 1000 ng/mL Performed By: #### A HP #### [facility] ([id number]) [address] [facility], [address] [place] [address] #### 70579-8 #### [facility] ([id number]) [address] [place] [address] 98721 BARBITURATES Negative Normal NEG [facility] Comment on above: Result Comment: Ana iturates screening cut off value = 200 ng/mL Performed By: #### A HP #### [facility] ([id number]) [address] [facility], [address] [place] [address] #### 99851-8 #### [facility] ([id number]) [address] [place] [address] 01823 BENZODIAZEPINES Negative Normal NEG [facility] Comment on above: Result Comment: Jeramie odiazepines screening cut off value = 200 ng/mL Performed By: #### A #### [facility] ([id number]) [address] [facility] [facility], [address] [place] [address] #### 58454-0 #### [facility] ([id number]) [address] [place] [address] 83704 CANNABINOIDS Positive Abnormal NEG [facility] Comment on above: Result Comment: Conf irmation available upon request. Cannabinoids/THC screening cut off value = 50 ng/mL Performed By: #### A #### [facility] ([id number]) [address] [facility] [facility], [address] [place] [address] #### 03566-8 #### [facility] ([id number]) [address] [place] [address] 64385 COCAINE METABOLITE Negative Normal NEG [facility] Comment on above: Result Comment: Coca ine screening cut off value = 300 ng/mL Performed By: #### A HP #### [facility] ([id number]) [address] [place] [address], [address] [place] [address] #### 49283-6 #### [facility] ([id number]) [address] [place] [address] 10386 ECSTASY Negative Normal NEG [facility] Comment on above: Result Comment: Ecst asy screening cut off value = 500 ng/mL This report is intended for use in clinical monitoring or management of patients. Performed By: #### A #### [facility] ([id number]) [address] [place] [address] [address] [place] [address] #### 99558-9 #### [facility] ([id number]) [address] [place] [address] 20962 METHADONE Negative Normal [facility] Comment on above: Result Comment: Meth adone screening cut off value = 300 ng/mL. Performed By: #### A #### [facility] ([id number]) [address] [place] [address] #### 25910-2 #### [facility] ([id number]) [address] [place] [address] 81078 OPIATES Negative Normal [facility] Comment on above: Result Comment: Opia chalo screening cut off value = 300 ng/mL NOTE: This test is used for the detection of codeine, hydrocodone (>1000 ng/mL), morphine and hydromorphone (>900 ng/mL) in urine. Performed By: #### A #### [facility] ([id number]) [address] [place] [address] [address] [place] [address] #### 99072-5 #### [facility] ([id number]) [address] [place] [address] 87450 OXYCODONE Negative Normal [facility] Comment on above: Result Comment: Oxyc odone screening cut off value = 300 ng/mL NOTE: This test is used for the detection of oxycodone and oxymorphone in urine. Performed By: #### A #### [facility] ([id number]) [address] [place] [address], [address] [place] [address] #### 11731-6 #### [facility] ([id number]) [address] [place] [address] 71789 PHENCYCLIDINE Negative Normal NEG [facility] Comment on above: Result Comment: Phen cyclidine screening cut off value = 25 ng/mL Performed By: #### A HP #### [facility] ([id number]) [address] [facility], [address] [place] [address] #### 41774-4 #### [facility] ([id number]) [address] [place] [address] 34675 HCG ( test) Ql (U)o n 08-19-2023 Beta HCG ( test) Ql (U) Negative Normal NEG [facility] Comment on above: Performed By: #### 2 106-3 #### [facility] ([id number]) [address] [place] [address] 50196 LIPASEon 08-19-2023 Lipase [Catalytic activity/Vol] 25 U/L Normal 17-40 [facility] Comment on above: Performed By: #### C BRUCE, 88063-3, CBCA, 1987-08, 3039-3 #### [facility] ([id number]) [address] [place] [address] 65252 MAGNESIUMon 08-19-2023 Magnesium [Mass/Vol] 1.9 mg/dL Normal 1.8-2.6 [facility] Comment on above: Performed By: #### C BRUCE, , CBCA, 1987-08, 3039-3 #### [facility] ([id number]) [address] [place] [address] 50241 SARS/FLU A+B/RSV by NAAT/Mol ecularon 08-19-2023 SARS/FLU [...] operators who are performing tests using either [employer] or [facility] systems and is limited to laboratories [...] specimen repeat. Fact Sheet for Healthcare Providers: https://www.fda.gov/media/1 06502/download Fact Sheet for Patients: https://www.fda.gov/media/1 83451/download Normal [facility] Comment on above: Performed By: #### C OVFLR #### [facility] ([id number]) [address] [place] [address] [place] [address] URN MACROSCOPIC NURon 2023 BILIRUBIN ERA Small Abnormal NEG [facility] Comment on above: Performed By: #### N UM #### [facility] ([id number]) [address] [place] [address] [place] [address] BLOOD/HGB ERA Trace Abnormal NEG [facility] Comment on above: Performed By: #### N UM #### [facility] ([id number]) [address] [place] [address] [place] [address] GLUCOSE ERA Negative Normal NEG [facility] Comment on above: Performed By: #### N UM #### [facility] ([id number]) [address] [place] [address] [place] [address] KETONES ERA Negative Normal NEG [facility] Comment on above: Performed By: #### N UM #### [facility] ([id number]) [address] [place] [address] [place] [address] LEUKOCYTE ESTERASE ERA Small Abnormal NEG [facility] Comment on above: Performed By: #### N UM #### [facility] ([id number]) [address] [place] [address] [place] [address] NITRITE ERA Positive Abnormal NEG [facility] Comment on above: Performed By: #### N UM #### [facility] ([id number]) [address] [place] [address] [place] [address] PH ERA 6.0 Normal 5.0-8.5 [facility] Comment on above: Performed By: #### N UM #### [facility] ([id number]) [address] [place] [address] [place] [address] PROTEIN ERA Negative Normal NEG [facility] Comment on above: Performed By: #### N UM #### [facility] ([id number]) [address] [place] [address], [place] [address] SPECIFIC GRAVITY ERA 1.025 Normal 1.003-1.035 [facility] Comment on above: Performed By: #### N UM #### [facility] ([id number]) [address] [facility] [place] [place] [address] UROBILINOGEN ERA >=8.0 Normal <1.1 [facility] Comment on above: Performed By: #### N UM #### [facility] ([id number]) [address] [facility] [place] [place] [address] ED Note-Physicianon 07-23-19 ED Note-Physician Basic Information Time Seen: Bernadette Gil PA-C 07/06/2023 15:16 Chief Complaint Pt reports vaginal itching and burning with urination for 1.5 months. Brown vaginal discharge. Pt also reports sinus congestion for 3-4 days. History of Present Illness 33-year-old female presents with brown vaginal discharge for the past 2 months. She states that she has followed up in [place] [facility] for this, but they did not [...] to follow-up with the health department or CLINICAL DOCUMENTATION NURSE. Nasal congestion sounds viral and can use oyac-gyf-imdtesy medications and follow-up family doctor. Afebrile, not [...] prescription medications Follow-up With When Contact Information [facility] Dept: [phone] In 3 days 07/09/2023 EST Additional Instructions: Boubacar MULLINS, Zev Webber, ORS Within 2 to 4 days [address] [facility] [facility] [address] [place] [address]- Additional Instructions: Patient Education Viral Respiratory Infection, Luvt-Hx-Xxlf Attestation I performed a substantive part of [...] in household: No. Smoker in household: Yes. Injuries/Abuse/Neglect in household: No. Feels unsafe at home: [...] No. Hous (more content not included)... Normal [facility] Comment on above: Result Comment: Elec tronically Signed By: Bernadette Gil PA-C\.br\Date and Time Signed: 07/06/23 16:00 EST\.br\Electronically Co-Signed By: Adolfo Hernandez MD\.br\Date and Time Co-Signed: 07/23/23 19:29 EDT Chlam/GC/Trich,NAAon 024 C. trachomatis rRNA BETZAIDA+probe Ql (Unsp spec) Negative Invalid Interpretation Code Negative [facility] Comment on above: Performed By: #### 1 [id number] #### [facility] [address] [place] [address] N. gonorrhoeae rRNA BETZAIDA+probe Ql (Unsp spec) Negative Invalid Interpretation Code Negative [facility] Comment on above: Performed By: #### 1 [id number] #### [facility] [address] [place] [address] T. vaginalis rRNA BETZAIDA+probe Ql (Unsp spec) Negative Invalid Interpretation Code Negative [facility] Comment on above: Result Comment: Perf ormed at: =G [facility] [place] RASHID Lou [id number] MD Tamika Eid Performed By: #### 1 [id number] #### [facility] [address] [place] [address] C Urineon 07-08-2023 Bacteria identified Cx Nom (U) Microbiology PROCEDURE: Urine Culture [R1] SOURCE: U CleanCatch BODY SITE: COLLECTED DATE/TIME: 07/06/2023 15:19 EST RECEIVED DATE/TIME: 07/06/2023 15:33 EST START DATE/TIME: 07/06/2023 15:33 EST FREE TEXT SOURCE: Bernadette Gil PA-C, PA-C, Bernadette Adams FINAL REPORTS Final Report [...] Locations R1: This test was performed at: [facility], [address] [place] [address], [facility]- , , [facility] Comment on above: Performed By: #### 2 [id number] #### [facility] [address] [place] [address] CHEMISTRYOrdered By: SYSTEM SYSTEM on 07-06-2023 Amphetamines [...] Chem Consent for Treatmenton Consent for Treatment [id number] Normal [facility] Discharge Instructionson Discharge Instructions [id number] Normal [facility] ED Clinical Summaryon 2023 ED Clinical Summary (Inserted Image. Radha ble to display) [place] [id number] ED Clinical Summary Person Information Name: SANGEETA NICHOLSON [facility]ow[facility] Age: 33 Years : 1990 Sex: Female Language: Divehi PCP: NONE, XXXX Marital Status: Single Visit [...] 07/06/2023 16:02:43 07/06/2023 16:02:43 07/06/2023 16:02:43 ADDRESS: [address] [place] [id number] PHYS DOC NOTES: MEDICAL INFORMATION: Prescriptions Given: Medications to Continue with No Changes Other Medications albuterol (albuterol 0.083% Inh Valerie 3 mL) 3 Milliliter Inhalation every 6 hours as needed for wheezing. PATIENT EDUCATION INFORMATION: Instructions: Viral Respiratory Infection, Likx-Xr-Cbnl Follow up: With: Address: When: Boubacar MULLINS, Zev Webber, ORS [address] [place] [address] Within 2 to 4 days With: Address: When: [facility] Dept: [phone] In 3 days 07/09/2023 DIAGNOSIS: 1:Viral sinusitis; 2:Vaginal discharge; Other viral agents as the cause of diseases classified elsewhere Normal [facility] ED Patient Education Noteon 07-06-2023 [...] home: Managing pain and congestion ? Take tyxn-lrp-rojawkn and prescription medicines only as told by [...] cannot use soap and water, use hand medical review coordinator. ? Cover your mouth when you cough. [...] provider. Document Revised: 07/23/2021 Document Reviewed: 07/23/2021 [employer] Patient Education ? 2022 Furnésh. Normal [facility] ED Patient Summaryon 024 ED Patient Summary (Inserted Image. Radha ble to display) [address] [address] Patient Discharge Instructions Person Information Name: SANGEETA NICHOLSON Age: 33 Years Arrival Date: 07/06/2023 15:07:04 Discharge Diagnosis: 1:Viral sinusitis; 2:Vaginal discharge; Other viral agents as the cause of diseases classified elsewhere Primary Care Physician: NONE, XXXX Provider Information Primary Provider: Advanced Coremaker Floor:None The exam and treatment you received in the Emergency Department were for an urgent problem and are not intended as complete care. It is important that you follow up with a doctor, nurse practitioner, or physician?s medical office assistant for ongoing care. If your symptoms become worse or you do not improve as expected and you are unable to reach your usual health care provider, you should return to the Emergency Department. We are available 24 hours a day. SANGEETA NICHOLSON has been given the following list of patient education materials, prescriptions and follow-up instructions: Follow-up Instructions: With: Address: When: Boubacar MULLINS, Zev Webber, ORS [address] [facility] [address] [place] [address] Within 2 to 4 days With: Address: When: [facility] Dept: [phone] In 3 days 07/09/2023 In the event that this physician does not participate in your insurance network, please consult with your insurance company to find a nearby participating provider. Patient Education Materials: Viral Respiratory Infection, Xeam-Dv-Xdbx A MESSAGE TO ALL PATIENTS REGARDING OPIOIDS PRESCRIPTION OPIOIDS: WHAT YOU NEED TO KNOW Prescription opioids can be used to help relieve kxfrgvnw-kr-lcyoog pain and are often prescribed following a [...] guidance from the Food and Drug Administration (www.fda.gov/Drugs/Resource sForYou). ? Visit www.cdc.gov/drugoverdose to learn about the risks of opioids abuse and overdose. ? If you believe you may be strugglin (more content not included)... Normal [facility] No Panel InformationOrdered By: Bella Flower on 07-06-2023 WP No clue cells presen t No Trichomonas vaginalis present No yeast seen [facility] SEROLOGYOrdered By: Jules Stovereon on 07-06-2023 HCG.beta subunit (U) [Moles/Vol] Negative Normal [facility] [place] Man Sero U BetaHcg Qualon 07-06-2023 HCG.beta subunit (U) [Moles/Vol] Negative Normal [facility] Comment on above: Performed By: #### 2 [id number], [id number], [id number] #### [facility] [address] [place] [address] U Drug Screenon 07-06-2023 Amphetamines Screen method >1000 ng/mL Ql (U) Negative Normal NEGATIVE [facility] Comment on above: Performed By: #### 2 [id number] #### [facility] [address] [place] [address] Barbiturates Screen Ql (U) Negative Normal NEGATIVE [facility] Comment on above: Performed By: #### 2 263680 #### [facility] [address] [place] [address] Benzodiazepines Ql (U) Negative Normal NEGATIVE [facility] Comment on above: Performed By: #### 2 766334 #### [facility] [address] [place] [address] Cannabinoids Screen Ql (U) Positive Abnormal NEGATIVE [facility] Comment on above: Performed By: #### 2 547225 #### [facility] [address] [place] [address] Cocaine Ql (U) Negative Normal NEGATIVE [facility] Comment on above: Performed By: #### 2 239615 #### [facility] [address] [place] [address] Opiates Screen Ql (U) Negative Normal NEGATIVE [facility] Comment on above: Performed By: #### 2 983256 #### [facility] [address] [place] [address] Phencyclidine Screen method >25 ng/mL Ql (U) Negative Normal NEGATIVE [facility] Comment on above: Performed By: #### 2 424645 #### [facility] [address] [place] [address] UA With Cult Reflexon 2023 Color (U) YELLOW Normal Yellow [facility] Comment on above: Performed By: #### 2 7951855, 92780751, 3812405 #### [facility] [address] [place] [address] Glucose (U) [Mass/Vol] Negative Normal Negative [facility] Comment on above: Performed By: #### 2 7496856, [id number], 7517820 #### [facility] [address] [place] [address] Ketones Ql (U) Negative Normal Negative [facility] Comment on above: Performed By: #### 2 0175359, [id number], 1423435 #### [facility] [address] [place] [address] UA Blood Negative Normal Negative [facility] Comment on above: Performed By: #### 2 6805559, 72958131, 0021466 #### [facility] [address] [place] [address] UA Amorph Nelsy Present Normal [facility] Comment on above: Performed By: #### 2 3549441, [id number], 8991548 #### [facility] [address] [place] [address] UA Bacteria TRACE Normal Trace [facility] Comment on above: Performed By: #### 2 7873266, 65144562, 8307745 #### [facility] [address] [place] [address] UA Clarity CLEAR Normal Clear [facility] Comment on above: Performed By: #### 2 2654262, 34840805, 7629390 #### [facility] [address] [place] [address] UA Leuk Est 2+ Abnormal Negative [facility] Comment on above: Performed By: #### 2 2670778, 83227814, 4643209 #### [facility] [address] [place] [address] UA Mucous 1+ Normal [facility] Comment on above: Performed By: #### 2 4942376, 39949213, 4722406 #### [facility] [address] [place] [address] UA Nitrite Negative Normal Negative [facility] Comment on above: Performed By: #### 2 6098922, 48497742, 1755550 #### [facility] [address] [place] [address] UA pH 8.5 Invalid Interpretation Code 5.0-9.0 [facility] Comment on above: Performed By: #### 2 7337113, 06158907, 6737007 #### [facility] [address] [place] [address] UA Protein 2+ Abnormal Negative [facility] Comment on above: Performed By: #### 2 5256630, 50433934, 9104332 #### [facility] [address] [place] [address] UA RBC 0-3 Normal 0-3 [facility] Comment on above: Performed By: #### 2 1292923, 00322122, 6004626 #### [facility] [address] [place] [address] UA Spec Desc Clean Catch Normal [facility] Comment on above: Performed By: #### 2 8469857, 32853994, 1645033 #### [facility] [address] [place] [address] UA Spec Grav 1.010 Invalid Interpretation Code 1.005-1.030 [facility] Comment on above: Performed By: #### 2 7445957, 44265094, 3658239 #### [facility] [address] [place] [address] UA Squam Epithelial 3-4 Normal 0-2 Fish r [facility] Comment on above: Performed By: #### 2 2854390, 36368386, 6064678 #### [facility] [address] [place] [address] UA Urobilinogen 4.0 EU/dL Abnormal 0.0-1.0 [facility] Comment on above: Performed By: #### 2 2542659, 93587556, 8674305 #### [facility] [address] [place] [address] UA WBC 16-25 Abnormal 0-5 [facility] Comment on above: Performed By: #### 2 0981347, 13121712, 6998515 #### [facility] [address] [place] [address] Urobilinogen (U) [Mass/Vol] Negative Normal Negative [facility] Comment on above: Performed By: #### 2 1049778, 33488002, 1180545 #### [facility] [address] [place] [address] URINALYSISOrdered By: Jules Ny on 07-06-2023 Color [...] HCV W/PCR REFLX Reactive Abnormal NRCT [facility] Comment on above: Result Comment: Supplemental testing for HCV RNA by PCR has been ordered per CDC recommendations. Fsqhks-we-rdkher ratio is >=1.00. Performed By: #### A #### [facility] ([id number]) [address] [address], [address] [place] [id number] #### 36259-8 #### [facility] ([id number]) [address] [place] [address] HEPATITIS A IGM Non-Reactive Normal NRCT [facility] Comment on above: Performed By: #### A HP #### [facility] ([id number]) [address], [address] [place] [address] #### 73359-9 #### [facility] ([id number]) [address] [facility] [place], [place] [address] HEPATITIS B CORE IGM Negative Normal NEG [facility] Comment on above: Performed By: #### A HP #### [facility] ([id number]) [address] [place] [address], [address] [address] #### 20569-7 #### [facility] ([id number]) [address] [place] [address] HEPATITIS B SURF AG Negative Normal NEG [facility] Comment on above: Performed By: #### A HP #### [facility] ([id number]) [address] [place] [address], [address] [address] #### 53351-2 #### [facility] ([id number]) [address] [place] [address] HCV RNA BETZAIDA+probe Qnon 06-17 HCV RNA QUANT PCR [id number] IU/mL Abnormal Undetected [facility] Comment on above: Result Comment: NOTE Result in log IU/mL is 6.72. ADDITIONAL INFORMATION The quantification range of this assay is 15 to 100,000,000 IU/mL (1.18 log to 8.00 log IU/mL). Testing was performed using the valentin HCV test ([employer] Test Performed by: [facility] [address] [place] [address] [employer] Operator: Ruddy Gonzalez M.D. Ph.D.; IA# [id number] Performed By: #### A HP #### [facility] ([id number]) [address] [facility], [address] [place] [address] #### 05593-5 #### [facility] ([id number]) [address] [place] [address], [place] [address] Cult,Urineon 12-11-2022 Cult,Urine Specimen Description .URINE Culture Several types of bacteria were identified in this specimen. Further ID and susceptibility testing is generally not helpful in this circumstance and has not been performed. Consider recollection if clinically indicated. Report Status FINAL 12/11/[address] [facility] Comment on above: Performed By: #### P HEP, HIVCMB #### [address] [address] [employer] Operator: Antonino Nova MD #### BMPCMP, BMP, CBC #### [facility] [address] [place] [address] [employer] Operator: Merlin Charles MD UA w/Reflex Cultureon 2022 Bilirubin, SemiQt,Ur Negative Normal NEG [facility] Comment on above: Performed By: #### P HEP, HIVCMB #### [address] [address] [employer]: Antonino Nova MD #### BMPCMP, BMP, CBC #### [facility] [address] [place] [address] [employer] Operator: Merlin Charles MD Blood, Urine Negative Normal NEG [facility] Comment on above: Performed By: #### P HEP, HIVCMB #### [address] [address] [employer] Operator: Antonino Nova MD #### BMPCMP, BMP, CBC #### [address] [place], [place] 6457283 [employer] Operator: Merlin Charles MD Clarity (U) Clear Normal CLEAR [facility] Comment on above: Performed By: #### P HEP, HIVCMB #### [address] [address] [employer] Operator: Antonino Nova MD #### BMPCMP, BMP, CBC #### [address] [place], [place] [address]83 [employer] Operator: Merlin Charles MD Color (U) Yellow Normal YEL [facility] Comment on above: Performed By: #### P HEP, HIVCMB #### [address] [address] [employer] Operator: Antonino Nova MD #### BMPCMP, BMP, CBC #### [address] [place], [place] [address] [employer] Operator: Merlin Charles MD Glucose Ql (U) Negative Normal NEG [facility] Comment on above: Performed By: #### P HEP, HIVCMB #### [address] [address] [employer] Operator: Antonino Nova MD #### BMPCMP, BMP, CBC #### [address] [place] [address] [employer] Operator: Merlin Charles MD Ketones Ql (U) Negative Normal NEG [facility] Comment on above: Performed By: #### P HEP, HIVCMB #### [address] [address] [employer] Operator: Antonino Nova MD #### BMPCMP, BMP, CBC #### [address] [place], [place] [address] [employer] Operator: Merlin Charles MD Leukocyte esterase Test strip Ql (U) LARGE Abnormal NEG [facility] Comment on above: Performed By: #### P HEP, HIVCMB #### [address] [address] [employer] Operator: Antonino Nova MD #### BMPCMP, BMP, CBC #### [facility] [address] [place] [address] [place] [id number] [employer] Operator: Merlin Charles MD Nitrite,Ur Negative Normal NEG [facility] Comment on above: Performed By: #### P HEP, HIVCMB #### [address] [address] [employer] Operator: Antonino Nova MD #### BMPCMP, BMP, CBC #### [address] [place] [address] [employer] Operator: Merlin Charles MD PH,Ur 6.0 Normal 5.0-9.0 [facility] Comment on above: Performed By: #### P HEP, HIVCMB #### [address] [address] [employer] Operator: Antonino Nova MD #### BMPCMP, BMP, CBC #### [address] [place] [address] [employer] Operator: Merlin Charles MD Protein Ql (U) Negative Normal [facility] Comment on above: Performed By: #### P HEP, HIVCMB #### [address] [address] [employer] Operator: Antonino Nova MD #### BMPCMP, BMP, CBC #### [facility] [address] [place] [address] Dr. [place] [id number] [employer] Operator: Merlin Charles MD Spec. [place],Ur 1.025 High 1.010-1.020 [facility] Comment on above: Performed By: #### P HEP, HIVCMB #### [place] [address] [place] [address] [employer] Operator: Antonino Nova MD #### BMPCMP, BMP, CBC #### [facility] [address] [place], [place] [address] [employer] Operator: Merlin Charles MD Urobilinogen,Ur Normal Normal 0.0-1.0 [facility] Comment on above: Performed By: #### P HEP, HIVCMB #### [address] [address] [employer] Operator: Antonino Nova MD #### BMPCMP, BMP, CBC #### [facility] [address] [place] [address] [place] [address] [employer] Operator: Merlin hCarles MD Urinalysis,Microon 3 Bacteria 3+ Abnormal NONE [facility] Comment on above: Performed By: #### P HEP, HIVCMB #### [address] [address] [employer] Operator: Antonino Nova MD #### BMPCMP, BMP, CBC #### [facility] [address] [place] [address] [place] [address] [employer] Operator: Merlin Charles MD Epithelial cells LM Ql (Urine sed) 0 TO 2 Normal 0-25 [facility] Comment on above: Performed By: #### P HEP, HIVCMB #### [address] [address] [employer] Operator: Antonino Nova MD #### BMPCMP, BMP, CBC #### [facility] [address] [place] [address] [place] [address] [employer] Operator: Merlin Charles MD Urine RBC's 0 TO 2 Normal 0-2 [facility] Comment on above: Performed By: #### P HEP, HIVCMB #### [facility] [address] [place] [address] [employer] Operator: Antonino Nova MD #### BMPCMP, BMP, CBC #### [facility] [address] [place], [place] [address] [employer] Operator: Merlin Charles MD Urine WBC's 10 TO 20 Normal 0-5 [facility] Comment on above: Performed By: #### P HEP, HIVCMB #### [facility] [address] [place] [address] [employer] Operator: Antonino Nova MD #### BMPCMP, BMP, CBC #### [facility] [address] [place] [address] [place] [address] [employer] Operator: Merlin Charles MD Cult,Urineon 09-24-2022 Cult,Urine Specimen Description .VOIDED URINE Culture ESCHERICHIA COLI >[id number] CFU/ML STREPTOCOCCI, BETA HEMOLYTIC GROUP B >402702 CFU/ML Report Status FINAL 09/24/2022 SUSCEPTIBILITY Organism ESCHERICHIA COLI Method TESSY Ampicillin <=2 SUSCEPTIBLE Cefazolin <=4 SUSCEPTIBLE Cefazolin sensitivity results can be used to predict the effectiveness of oral cephalosporins (eg. Cephalexin) in uncomplicated Urinary Tract Infections due to E. coli, K. pneumoniae, and P. mirabilis Ceftriaxone <=0.25 SUSCEPTIBLE ESBL NEGATIVE Gentamicin <=1 SUSCEPTIBLE Levofloxacin <=0.12 SUSCEPTIBLE Nitrofurantoin <=16 SUSCEPTIBLE Piperacillin/Tazobactam <=4 SUSCEPTIBLE Tobramycin <=1 SUSCEPTIBLE Trimethoprim/Sulfa <=[address] [facility] Comment on above: Performed By: #### U RC #### [facility] [address] [place], [place] [id number] [employer] Operator: Antonino Nova MD [facility] [address] [place] [address] [place] [address] [employer] Operator: Merlin Charles MD Chlamydia/GC,DNA Ampon 09-23 Chlamydia Probe Negative Normal NEG [facility] Comment on above: Result Comment: CHLA [...] Performed By: #### U ANKITA UA #### [address] [place] [address] [employer] Operator: Merlin Charles MD #### SWCGP #### [address] [address] [employer] Operator: Antonino Nova MD Gonorrhea Probe Negative [facility] Comment on above: Result Comment: NEIS [...] Performed By: #### Alex LUCIANO UA #### [address] [place] [address] [employer] Operator: Merlin Charles MD #### SWCGP #### [address] [address] [employer] Operator: Antonino Nova MD Trichomonas/Wet Prepon 09-22 Trichomonas/Wet Prep Specimen Descriptio n .VAGINAL SPECIMEN Direct Exam NO YEAST OBSERVED NO TRICHOMONAS SEEN NO CLUE CELLS SEEN Report Status FINAL 09/22/[address] [facility] Comment on above: Performed By: #### P HEP, HIVCMB #### [address] [address] [employer] Operator: Antonino Nova MD #### BMPCMP, BMP, CBC #### [facility] [address] [place], [place] 5207383 [employer] Operator: Merlin Charles MD Urinalysis, Routineon 2022 Bilirubin, SemiQt,Ur Negative Normal NEG [facility] Comment on above: Performed By: #### U MICAO, UA #### [facility] [address] [place], [place] 434[address]83 [employer] Operator: Merlin Charles MD #### SWCGP #### [address] [address] [employer] Operator: Antonino Nova MD Blood, Urine Negative Normal NEG [facility] Comment on above: Performed By: #### U MICAO, UA #### [facility] [address] [place] [address] [place], [place] 9[address]883 [employer] Operator: Merlin Charles MD #### SWCGP #### [address] [address] [employer] Operator: Antonino Nova MD Clarity (U) Cloudy Abnormal CLEAR [facility] Comment on above: Performed By: #### U MICAO, UA #### [address] [place], [place] 276[address]83 [employer] Operator: Merlin Charles MD #### SWCGP #### [address] [address] [employer] Operator: Antonino Nova MD Color (U) Yellow Normal YEL [facility] Comment on above: Performed By: #### U MICAO, UA #### [facility] [address] [place] [address] [place], [place] [id number] [employer] Operator: Merlin Charles MD #### SWCGP #### [address] [address] [employer] Operator: Antonino Nova MD Glucose Ql (U) Negative Normal NEG [facility] Comment on above: Performed By: #### U MICAO, UA #### [facility] [address] [place] [address] [place], [place] 2794883 [employer] Operator: Merlin Charles MD #### SWCGP #### [address] [address] [employer] Operator: Antonino Nova MD Ketones Ql (U) Negative Normal NEG [facility] Comment on above: Performed By: #### U MICAO, UA #### [facility] [address] [place] [address] [address]. [place], [place] 2564883 [employer] Operator: Merlin Charles MD #### SWCGP #### [address] [address] [employer] Operator: Antonino Nova MD Leukocyte esterase Test strip Ql (U) MODERATE Abnormal NEG [facility] Comment on above: Performed By: #### U MICAO, UA #### [facility] [address] [place] [address] [place], [place] 2956783 [employer] Operator: Merlin Charles MD #### SWCGP #### [address] [address] [employer] Operator: Antonino Nova MD Nitrite,Ur Positive Abnormal NEG [facility] Comment on above: Performed By: #### U MICAO, UA #### [facility] [address] [place] [address] [place], [place] 8548383 [employer] Operator: Merlin Charles MD #### SWCGP #### [address] [address] [employer] Operator: Antonino Nova MD PH,Ur 6.0 Normal 5.0-9.0 [facility] Comment on above: Performed By: #### U MICAO, UA #### [facility] [address] [place] [address] [place]. [place], [place] 1217083 [employer] Operator: Merlin Charles MD #### SWCGP #### [address] [address] [employer] Operator: Antonino Nova MD Protein Ql (U) Negative Normal NEG [facility] Comment on above: Performed By: #### U MICAO, UA #### [facility] [address] [place], [place] 3280383 [employer] Operator: Merlin Charles MD #### SWCGP #### [address] [address] [employer] Operator: Antonino Nova MD Spec. [place],Ur 1.025 High 1.010-1.020 [facility] Comment on above: Performed By: #### U MICAO, UA #### [facility] [address] [place] [address] [place] [address] [employer] Operator: Merlin Charles MD #### SWCGP #### [address] [address] [employer] Operator: Antonino Nova MD Urobilinogen,Ur Normal Normal NORM [facility] Comment on above: Performed By: #### U MICAO, UA #### [facility] [address] [place] [address] [place] [address] [employer] Operator: Merlin Charles MD #### SWCGP #### [address] [address] [employer] Operator: Antonino Nova MD Urinalysis,Microon 3 Bacteria 3+ Abnormal NONE [facility] Comment on above: Performed By: #### U MICAO, UA #### [facility] [address] [place] [address] [employer] Operator: Merlin Charles MD #### SWCGP #### [address] [address] [employer] Operator: Antonino Nova MD Epithelial cells LM Ql (Urine sed) 0 TO 2 Normal 0-25 [facility] Comment on above: Performed By: #### U ANKITA, UA #### [facility] [address] [place], [place] 5816383 [employer] Operator: Merlin Charles MD #### SWCGP #### [address] [address] [employer] Operator: Antonino Nova MD Mucus Strands 1+ Abnormal NONE [facility] Comment on above: Performed By: #### U ANKTIA UA #### [facility] [address] [place] [address] [place]. [place], [place] 4434183 [employer] Operator: Merlin Charles MD #### SWCGP #### [address] [address] [employer] Operator: Antonino Nova MD Urine RBC's 0 TO 2 Normal 0-2 [facility] Comment on above: Performed By: #### U ANKITA UA #### [facility] [address] [place] [address] [place], [place] 1860683 [employer] Operator: Merlin Charles MD #### SWCGP #### [address] [address] [employer] Operator: Antonino Nova MD Urine WBC's 10 TO 20 Normal 0-5 [facility] Comment on above: Performed By: #### U KIMO, UA #### [facility] [address] [place], [place] 7173383 [employer] Operator: Merlin Charles MD #### SWCGP #### [address] [address] [employer] Operator: Antonino Nova MD HCV RNA,Quant,PCRon 09-15-19 23 HCV Quant [id number] IU/mL Normal [facility] Comment on above: Performed By: #### H CVQN #### [facility] [address] [place] [address] [employer] Operator: Antonino Nova MD [facility] [address] [place] [address] [place] [address] [employer] Operator: Merlin Charles MD HCV RNA,Quant Detected Abnormal NOTDET [facility] Comment on above: Result Comment: INTERPRETIVE [...] (HCT/P). Performed By: #### H CVQN #### [facility] [address] [place] [address] [employer] Operator: Antonino Nova MD [facility] [address] [place] [address] [place] [address] [employer] Operator: Merlin Charles MD HCV,RNA Log 6.95 Log IU/mL [facility] Comment on above: Performed By: #### H CVQN #### [facility] [address] [place] [address] [employer] Operator: Antonino Nova MD [facility] [address] [place] [address] [place] [address] [employer] Operator: Merlin Charles MD [facility] Erythrocyte distribution width (RBC) [Ratio] 17.7 % High 11.8-14.4 [facility] Comment on above: Performed By: #### P HEP, HIVCMB #### [address] [address] [employer] Operator: Antonino Nova MD #### BMPCMP, BMP, CBC #### [address] [place], [place] 426[address]83 [employer] Operator: Merlin Charles MD Hematocrit (Bld) [Volume fraction] 39.8 % Normal 36.3-47.1 [facility] Comment on above: Performed By: #### P HEP, HIVCMB #### [address] [address] [employer] Operator: Antonino Nova MD #### BMPCMP, BMP, CBC #### [address] [place] [address] [employer] Operator: Merlin Charles MD Hemoglobin (Bld) [Mass/Vol] 13.5 g/dL Normal 11.9-15.1 [facility] Comment on above: Performed By: #### P HEP, HIVCMB #### [address] [address] [employer]: Antonino Nova MD #### BMPCMP, BMP, CBC #### [address] [place] [address] [employer]: Merlin Charles MD MCH (RBC) [Entitic mass] 35.6 pg High 25.2-33.5 [facility] Comment on above: Performed By: #### P HEP, HIVCMB #### [address] [id number] [employer]: Antonino Nova MD #### BMPCMP, BMP, CBC #### [address] [place] [address] [employer]: Merlin Charels MD MCHC (RBC) [Mass/Vol] 33.9 g/dL Normal 28.4-34.8 [facility] Comment on above: Performed By: #### P HEP, HIVCMB #### [address] [id number] [employer]: Antonino Nova MD #### BMPCMP, BMP, CBC #### [address] [place] [phone] [employer]: Merlin Charles MD MCV (RBC) [Entitic vol] 105.0 fL High 82.6-102.9 [facility] Comment on above: Performed By: #### P HEP, HIVCMB #### [place] [phone] [employer]: Antonino Nova MD #### BMPCMP, BMP, CBC #### [address] [place] [phone] [employer]: Merlin Charles MD NRBC Automated 0.0 per [address] [facility] Comment on above: Performed By: #### P HEP, HIVCMB #### [place] [phone] [employer]: Antonino Nova MD #### BMPCMP, BMP, CBC #### [address] [place] [phone] [employer]: Merlin Charles MD Platelet mean volume (Bld) [Entitic vol] 10.2 fL Normal 8.1-13.5 [facility] Comment on above: Performed By: #### P HEP, HIVCMB #### [address] [id number] [employer]: Antonino Nova MD #### BMPCMP, BMP, CBC #### [address] [place] [address] [employer]: Merlin Charles MD Platelets (Bld) [#/Vol] 128 10*3/uL Low 138-453 [facility] Comment on above: Performed By: #### P HEP, HIVCMB #### [place] [address] [place] [address] [employer]: Antonino Nova MD #### BMPCMP, BMP, CBC #### [address] [place] [phone] [employer]: Merlin Charles MD RBC (Bld) [#/Vol] 3.79 10*6/uL Low 3.95-5.11 [facility] Comment on above: Performed By: #### P HEP, HIVCMB #### [place] [phone] [employer]: Antonino Nova MD #### BMPCMP, BMP, CBC #### [address] [place] [phone] [employer]: Merlin Charles MD WBC (Bld) [#/Vol] 3.7 10*3/uL Normal 3.5-11.3 [facility] Comment on above: Performed By: #### P HEP, HIVCMB #### [address] [phone] [employer]: Antonino Nova MD #### BMPCMP, BMP, CBC #### [address] [place] [phone] [employer]: Merlin Charles MD Hematocrit (Bld) [Volume fraction] 39.8 % 36.3 - 47.1 % [facility] Hemoglobin (Bld) [Mass/Vol] 13.5 g/dL 11.9 - 15.1 g/dL [facility] Interpretation and review of laboratory results Abnormal [facility] MCH (RBC) [Entitic mass] 35.6 pg High 25.2 - 33.5 pg [facility] MCHC (RBC) [Mass/Vol] 33.9 g/dL 28.4 - 34.8 g/dL [facility] MCV (RBC) [Entitic vol] 105.0 fL High 82.6 - 102.9 fL [facility] NRBC Automated 0.0 0.0 per 100 WBC [facility] Platelet distribution width (Bld) [Ratio] 17.7 % High 11.8 - 14.4 % [facility] Platelet mean volume (Bld) [Entitic vol] 10.2 fL 8.1 - 13.5 fL [facility] Platelets (Bld) [#/Vol] 128 10*3/uL Low [facility] RBC (Bld) [#/Vol] 3.79 10*6/uL Low 3.95 - 5.1 1 m/uL [facility] WBC (Bld) [#/Vol] 3.7 10*3/uL [facility] Comp Metabolic Profon 2022 Albumin [Mass/Vol] 4.1 g/dL Normal 3.5-5.2 [facility] Comment on above: Performed By: #### P HEP, HIVCMB #### [address] [phone] [employer]: Antonino Nova MD #### BMPCMP, BMP, CBC #### [facility] [address] [place] [address] [place] [address] [employer]: Merlin Charles MD Albumin/Glob Ratio 2.1 Normal 1.0-2.5 [facility] Comment on above: Performed By: #### P HEP, HIVCMB #### [facility] [place], [place] [phone] [employer]: Antonino Nova MD #### BMPCMP, BMP, CBC #### [facility] [address] [place] [address] [employer]: Merlin Charles MD Alkaline Phos 67 U/L Normal 35-104 [facility] Comment on above: Performed By: #### P HEP, HIVCMB #### [facility] [address] [place] [address] [employer]: Antonino Nova MD #### BMPCMP, BMP, CBC #### [facility] [address] [place], [place] 1677283 [employer]: Merlin Charles MD ALT [Catalytic activity/Vol] 41 U/L High 5-33 [facility] Comment on above: Performed By: #### P HEP, HIVCMB #### [facility] [address] [place] [address] [employer]: Antonino Nova MD #### BMPCMP, BMP, CBC #### [facility] [address] [place], [place] [phone] [employer]: Merlin Charles MD Anion gap [Moles/Vol] 6 mmol/L Low 9-17 [facility] Comment on above: Performed By: #### P HEP, HIVCMB #### [facility] [address] [place] [address] [employer]: Antonino Nova MD #### BMPCMP, BMP, CBC #### [facility] [address] [place], [place] [phone] [employer]: Merlin Charles MD AST [Catalytic activity/Vol] 52 U/L High <32 [facility] Comment on above: Performed By: #### P HEP, HIVCMB #### [facility] [address] [place] [address] [employer]: Antonino Nova MD #### BMPCMP, BMP, CBC #### [facility] [address] [place], [place] [phone] [employer]: Merlin Charles MD Bilirubin [Mass/Vol] 0.6 mg/dL Normal 0.3-1.2 [facility] Comment on above: Performed By: #### P HEP, HIVCMB #### [address] [address] [employer]: Antonino Nova MD #### BMPCMP, BMP, CBC #### [facility] [address] [place], [place] 1922183 [employer]: Merlin Charles MD BUN/CRE Ratio 16 Normal 9-20 [facility] Comment on above: Performed By: #### P HEP, HIVCMB #### [address] [address] [employer]: Antonino Nova MD #### BMPCMP, BMP, CBC #### [facility] [address] [place] [address] [place], [place] [phone] [employer]: Merlin Charles MD Calcium [Mass/Vol] 10.0 mg/dL Normal 8.6-10.4 [facility] Comment on above: Performed By: #### P HEP, HIVCMB #### [address] [address] [employer]: Antonino Nova MD #### BMPCMP, BMP, CBC #### [facility] [address] [place] [address] [place], [place] [phone] [employer]: Merlin Charles MD Chloride [Moles/Vol] 108 mmol/L High 98-107 [facility] Comment on above: Performed By: #### P HEP, HIVCMB #### [address] [address] [employer]: Antonino Nova MD #### BMPCMP, BMP, CBC #### [facility] [address] [place] [address] [place], [place] [phone] [employer]: Merlin Charles MD CO2 [Moles/Vol] 28 mmol/L Normal 20-31 [facility] Comment on above: Performed By: #### P HEP, HIVCMB #### [address] [address] [employer] Operator: Antonino Nova MD #### BMPCMP, BMP, CBC #### [facility] [address] [place], [place] 6389783 [employer]: Merlin Charles MD Creatinine [Mass/Vol] 0.61 mg/dL Normal 0.50-0.90 [facility] Comment on above: Performed By: #### P HEP, HIVCMB #### [address] [address] [employer] Operator: Antonino Nova MD #### BMPCMP, BMP, CBC #### [address] [place] [address] [employer]: Merlin Charles MD GFR/1.73 sq M.predicted among non-blacks MDRD (S/P/Bld) [Vol rate/Area] mL/min/{1.73_m2} Normal >60 [facility] Comment on above: Result Comment: These [...] Performed By: #### P HEP, HIVCMB #### [address] [address] [employer]: Antonino Nova MD #### BMPCMP, BMP, CBC #### [address] [place] [address] [employer]: Merlin Charles MD Glucose [Mass/Vol] 87 mg/dL Normal 70-99 [facility] Comment on above: Performed By: #### P HEP, HIVCMB #### [address] [address] [employer]: Antonino Nova MD #### BMPCMP, BMP, CBC #### [address] [place], [place] [phone] [employer]: Merlin Charles MD Potassium [Moles/Vol] 5.0 mmol/L Normal 3.7-5.3 [facility] Comment on above: Performed By: #### P HEP, HIVCMB #### [address] [address] [employer] Operator: Antonino Nova MD #### BMPCMP, BMP, CBC #### [address] [place] [address] [employer] Operator: Merlin Charles MD Protein [Mass/Vol] 6.1 g/dL Low 6.4-8.3 [facility] Comment on above: Performed By: #### P HEP, HIVCMB #### [address] [address] [employer]: Antonino Nova MD #### BMPCMP, BMP, CBC #### [address] [place] [address] [employer] Operator: Merlin Charles MD Sodium [Moles/Vol] 142 mmol/L Normal 135-144 [facility] Comment on above: Performed By: #### P HEP, HIVCMB #### [address] [address] [employer]: Antonino Nova MD #### BMPCMP, BMP, CBC #### [address] [place] [address] [employer]: Merlin Charles MD Urea nitrogen [Mass/Vol] 10 mg/dL Normal 6-20 [facility] Comment on above: Performed By: #### P HEP, HIVCMB #### [address] [place] [address] [employer] Operator: Antonino Nova MD #### BMPCMP, BMP, CBC #### [facility] [address] [place] [address] [employer]: Merlin Charles MD Comprehensive Metabolic Pane [facility] 09-13-2022 Albumin [Mass/Vol] 4.1 g/dL 3.5 - 5.2 g/dL [facility] Albumin/Globulin [Mass ratio] 2.1 {ratio} 1.0 - 2.5 [facility] ALP [Catalytic activity/Vol] 67 U/L 35 - 104 U/L [facility] ALT [Catalytic activity/Vol] 41 U/L High 5 - 33 U/L [facility] Anion gap [Moles/Vol] 6 mmol/L Low 9 - 17 mmol/L [facility] AST [Catalytic activity/Vol] 52 U/L High NINF - 32 U/L [facility] Bilirubin [Mass/Vol] 0.6 mg/dL 0.3 - 1 .2 mg/dL [facility] Calcium [Mass/Vol] 10.0 mg/dL 8.6 - 10. 4 mg/dL [facility] Chloride [Moles/Vol] 108 mmol/L High 98 - 10 7 mmol/L [facility] CO2 [Moles/Vol] 28 mmol/L 20 - 31 mmol/L [facility] Creatinine [Mass/Vol] 0.61 mg/dL 0.50 - 0.90 mg/dL [facility] GFR/1.73 sq M.predicted MDRD (S/P/Bld) [Vol rate/Area] - PINF [facility] Comment on above: These results are not [...] 87 mg/dL 70 - 99 mg/dL [facility] Interpretation and review of laboratory results Abnormal [facility] Potassium [Moles/Vol] 5.0 mmol/L 3.7 - 5.3 mmol/L [facility] Protein [Mass/Vol] 6.1 g/dL Low 6.4 - 8.3 g/dL [facility] Sodium [Moles/Vol] 142 mmol/L 135 - 144 mmol/L [facility] Urea nitrogen [Mass/Vol] 10 mg/dL 6 - 20 mg/dL [facility] Urea nitrogen/Creatinine (Bld) [Mass ratio] 16 9 - 20 [facility] HCG Qualitative, Serumon hCG Qual Negative NEGATIVE [facility] Comment on above: Specimens with hCG l evels near the threshold of the test (25 mIU/mL) may give a negative or indeterminate result. In such cases, another test should be performed with a new specimen in 48-72 hours. If early is suspected clinically in this setting, correlation with quantitative serum b-hCG level is suggested. [facility] has confirmed the use of plasma for this test. This has not been cleared or approved by the [place]. Food and Drug Administration. The FDA has determined that such clearance is not necessary. [facility] HCG Screen, Bloodon 09-14-19 HCG Screen, Blood Negative Normal NEG [facility] Comment on above: Result Comment: Spec imens with hCG levels near the threshold of the test (25 mIU/mL) may give a negative or indeterminate result. In such cases, another test should be performed with a new specimen in 48-72 hours. If early is suspected clinically in this setting, correlation with quantitative serum b-hCG level is suggested. [facility] has confirmed the use of plasma for this test. This has not been cleared or approved by the [place].S. Food and Drug Administration. The FDA has determined that such clearance is not necessary. Performed By: #### P HEP, HIVCMB #### [facility] [place] [id number] [employer]: Antonino Nova MD #### BMPCMP, BMP, CBC #### [facility] [address] [place] [address] [place], [place] [phone] [employer]: Merlin Charles MD HCV RNA,Quant,PCRon 09-14-19 23 Source .PL[address]MA Normal [facility] Comment on above: Performed By: #### H CVQN #### [address] [address] [employer] Operator: Antonino Nova MD [facility] [address] [place] [address] [place]. [place], [place] [phone] [employer]: Merlin Charles MD HIV Ag/Abon 09-13-2022 HIV Ag/Ab Non-Reactive Normal [facility] Comment on above: Result Comment: No l aboratory evidence of HIV infection. If acute HIV infection is suspected, consider testing for HIV-1 RNA. Performed By: #### P HEP, HIVCMB #### [address] [address] [employer]: Antonino Nova MD #### BMPCMP, BMP, CBC #### [address] [place] [address] [employer]: Merlin Charles MD HIV Screenon 09-13-2022 HIV 1+2 Ab+HIV1 p24 Ag IA Ql Non-Reactive NONREACTIVE [facility] Comment on above: No laboratory eviden ce of HIV infection. If acute HIV infection is suspected, consider testing for HIV-1 RNA. [facility] Hepatitis Acute [facility] 09-13 Hep A Ab,IgM Non-Reactive Normal [facility] Comment on above: Performed By: #### P HEP, HIVCMB #### [address] [address] [employer] Operator: Antonino Nova MD #### BMPCMP, BMP, CBC #### [address] [place] [address] [employer] Operator: Merlin Charles MD Hep B Core Ab,IgM Non-Reactive Normal NR [facility] Comment on above: Performed By: #### P HEP, HIVCMB #### [place] [address] [place] [address] [employer] Operator: Antonino Nova MD #### BMPCMP, BMP, CBC #### [facility] [address] [place] [address] [employer] Operator: Merlin Charles MD Hep B Surf Ag Non-Reactive Normal [facility] Comment on above: Performed By: #### P HEP, HIVCMB #### [address] [address] [employer] Operator: Antonino Nova MD #### BMPCMP, BMP, CBC #### [address] [place] [address] [employer] Operator: Merlin Charles MD Hep C Ab Reactive Abnormal [facility] Comment on above: Result Comment: [...] Performed By: #### P HEP, HIVCMB #### [address] [address] [employer] Operator: Antonino Nova MD #### BMPCMP, BMP, CBC #### [address] [place] [address] [employer] Operator: Merlin Charles MD Hepatitis Panel, [facility] HAV IgM Ql (S) Non-Reactive NONREACTIVE BON [facility] HBV core IgM Ql (S) Non-Reactive NONREACTIVE CONNIE N [facility] HBV surface Ag IA Ql Non-Reactive NONREACTIVE B ON [facility] HCV Ab IA Ql Reactive Abnormal NONREACTIVE [facility] Comment on above: The hepatitis [...] and review of laboratory results Abnormal [facility] Comp Metabolic Addonon 04-20 Albumin [Mass/Vol] 4.5 g/dL Normal 3.5-5.2 [facility] Comment on above: Performed By: #### P HEP, HIVCMB #### [address] [address] [employer] Operator: Antonino Nova MD #### BMPCMP, BMP, CBC #### [address] [place] [id number] [employer] Operator: Merlin Charles MD Albumin/Glob Ratio 2.0 Normal 1.0-2.5 [facility] Comment on above: Performed By: #### P HEP, HIVCMB #### [address] [address] [employer] Operator: Antonino Nova MD #### BMPCMP, BMP, CBC #### [address] [place] [address] [employer] Operator: Merlin Charles MD Alkaline Phos 81 U/L Normal 35-104 [facility] Comment on above: Performed By: #### P HEP, HIVCMB #### [address] [address] [employer] Operator: Antonino Nova MD #### BMPCMP, BMP, CBC #### [facility] [address] [place] [address] [place] [address] [employer] Operator: Merlin Charles MD ALT [Catalytic activity/Vol] 106 U/L High 5-33 [facility] Comment on above: Performed By: #### P HEP, HIVCMB #### [facility] [address] [place] [address] [employer] Operator: Antonino Nova MD #### BMPCMP, BMP, CBC #### [facility] [address] [place] [address] [place]. [place], [place] [phone] [employer] Operator: Merlin Charles MD AST [Catalytic activity/Vol] 77 U/L High <32 [facility] Comment on above: Performed By: #### P HEP, HIVCMB #### [address] [address] [employer] Operator: Antonino Nova MD #### BMPCMP, BMP, CBC #### [address] [place] [phone] [employer] Operator: Merlin Charles MD Bilirubin [Mass/Vol] 0.6 mg/dL Normal 0.3-1.2 [facility] Comment on above: Performed By: #### P HEP, HIVCMB #### [address] [address] [employer] Operator: Antonino Nova MD #### BMPCMP, BMP, CBC #### [address] [place] [phone] [employer] Operator: Merlin Charles MD Protein [Mass/Vol] 6.7 g/dL Normal 6.4-8.3 [facility] Comment on above: Performed By: #### P HEP, HIVCMB #### [address] [address] [employer] Operator: Antonino Nova MD #### BMPCMP, BMP, CBC #### [facility] [address] [place] [address] [place] [address] [employer] Operator: Merlin Charles MD HCV RNA,Quant,PCRon 04-20-20 HCV Quant 1,330,000 IU/mL Normal [facility] Comment on above: Performed By: #### P HEP, HIVCMB #### [place] [address] [place] [address] [employer]: Antonino Nova MD #### BMPCMP, BMP, CBC #### [address] [place] [phone] [employer] Operator: Merlin Charles MD HCV RNA,Quant Detected Abnormal NOTDET [facility] Comment on above: Result Comment: HCV [...] Performed By: #### P HEP, HIVCMB #### [address] [address] [employer] Operator: Antonino Nova MD #### BMPCMP, BMP, CBC #### [address] [place] [address] [employer] Operator: Merlin Charles MD HCV,RNA Log 6.12 Log IU/mL [facility] Comment on above: Performed By: #### P HEP, HIVCMB #### [address] [address] [employer] Operator: Antonino Nova MD #### BMPCMP, BMP, CBC #### [address] [place] [address] [employer] Operator: Merlin Charles MD Basic Metabolic Profon 04-19 Anion gap [Moles/Vol] 7 mmol/L Low 9-17 [facility] Comment on above: Performed By: #### P HEP, HIVCMB #### [address] [address] [employer] Operator: Antonino Nova MD #### BMPCMP, BMP, CBC #### [address] [place] [phone] [employer] Operator: Merlin Charles MD BUN/CRE Ratio 20 Normal 9-20 [facility] Comment on above: Performed By: #### P HEP, HIVCMB #### [address] [address] [employer] Operator: Antonino Nova MD #### BMPCMP, BMP, CBC #### [address] [place] [phone] [employer] Operator: Merlin Charles MD Calcium [Mass/Vol] 9.9 mg/dL Normal 8.6-10.4 [facility] Comment on above: Performed By: #### P HEP, HIVCMB #### [address] [address] [employer] Operator: Antonino Nova MD #### BMPCMP, BMP, CBC #### [address] [place] [phone] [employer] Operator: Merlin Charles MD Chloride [Moles/Vol] 106 mmol/L Normal 98-107 [facility] Comment on above: Performed By: #### P HEP, HIVCMB #### [address] [address] [employer] Operator: Antonino Nova MD #### BMPCMP, BMP, CBC #### [address] [place] [address] [employer] Operator: Merlin Charles MD CO2 [Moles/Vol] 29 mmol/L Normal 20-31 [facility] Comment on above: Performed By: #### P HEP, HIVCMB #### [place] [address] [place], [place] [phone] [employer] Operator: Antonino Nova MD #### BMPCMP, BMP, CBC #### [facility] [address] [place] [address] [employer] Operator: Merlin Charles MD Creatinine [Mass/Vol] 0.79 mg/dL Normal 0.50-0.90 [facility] Comment on above: Performed By: #### P HEP, HIVCMB #### [address] [id number] [employer]: Antonino Nova MD #### BMPCMP, BMP, CBC #### [address] [place] [address] [employer] Operator: Merlin Charles MD GFR/1.73 sq M.predicted among non-blacks MDRD (S/P/Bld) [Vol rate/Area] mL/min/{1.73_m2} Normal >60 [facility] Comment on above: Result Comment: Effective [...] Performed By: #### P HEP, HIVCMB #### [address] 0008208 [employer]: Antonino Nova MD #### BMPCMP, BMP, CBC #### [facility] [address] [place] [address] [employer] Operator: Merlin Charles MD Glucose [Mass/Vol] 98 mg/dL Normal 70-99 [facility] Comment on above: Performed By: #### P HEP, HIVCMB #### [address] [address] [employer]: Antonino Nova MD #### BMPCMP, BMP, CBC #### [address] [place] [phone] [employer] Operator: Merlin Charles MD Potassium [Moles/Vol] 4.6 mmol/L Normal 3.7-5.3 [facility] Comment on above: Performed By: #### P HEP, HIVCMB #### [address] [address] [employer] Operator: Antonino Nova MD #### BMPCMP, BMP, CBC #### [address] [place] [phone] ( [employer] Operator: Merlin Charles MD Sodium [Moles/Vol] 142 mmol/L Normal 135-144 [facility] Comment on above: Performed By: #### P HEP, HIVCMB #### [address] [address] [employer] Operator: Antonino Nova MD #### BMPCMP, BMP, CBC #### [address] [place] [phone] [employer] Operator: Merlin Charles MD Urea nitrogen [Mass/Vol] 16 mg/dL Normal 6-20 [facility] Comment on above: Performed By: #### P HEP, HIVCMB #### [address] [address] [employer]: Antonino Nova MD #### BMPCMP, BMP, CBC #### [address] [place] [phone] [employer]: Merlin Charles MD [facility] 04-19-2022 Erythrocyte distribution width (RBC) [Ratio] 15.2 % High 11.8-14.4 [facility] Comment on above: Performed By: #### P HEP, HIVCMB #### [address] [address] [employer]: Antonino Nova MD #### BMPCMP, BMP, CBC #### [address] [place] [phone] [employer]: Merlin Charles MD Hematocrit (Bld) [Volume fraction] 41.4 % Normal 36.3-47.1 [facility] Comment on above: Performed By: #### P HEP, HIVCMB #### [place] [address] [employer] Operator: Antonino Nova MD #### BMPCMP, BMP, CBC #### [address] [place] [phone] [employer] Operator: Merlin Charles MD Hemoglobin (Bld) [Mass/Vol] 13.3 g/dL Normal 11.9-15.1 [facility] Comment on above: Performed By: #### P HEP, HIVCMB #### [place] [address] [employer]: Antonino Nova MD #### BMPCMP, BMP, CBC #### [address] [place] [phone] [employer] Operator: Merlin Charles MD MCH (RBC) [Entitic mass] 33.8 pg High 25.2-33.5 [facility] Comment on above: Performed By: #### P HEP, HIVCMB #### [address] [phone] [employer]: Antonino Nova MD #### BMPCMP, BMP, CBC #### [address] [place] [phone] [employer]: Merlin Charles MD MCHC (RBC) [Mass/Vol] 32.1 g/dL Normal 28.4-34.8 [facility] Comment on above: Performed By: #### P HEP, HIVCMB #### [address] [phone] [employer]: Antonino Nova MD #### BMPCMP, BMP, CBC #### [address] [place] [phone] [employer]: Merlin Charles MD MCV (RBC) [Entitic vol] 105.3 fL High 82.6-102.9 [facility] Comment on above: Performed By: #### P HEP, HIVCMB #### [place] [phone] [employer]: Antonino Nova MD #### BMPCMP, BMP, CBC #### [address] [place] [address] [employer] Operator: Merlin Charles MD NRBC Automated 0.0 per [address] [facility] Comment on above: Performed By: #### P HEP, HIVCMB #### [place] [id number] [employer] Operator: Antonino Nova MD #### BMPCMP, BMP, CBC #### [address] [place] [id number] [employer] Operator: Merlin Charles MD Platelet mean volume (Bld) [Entitic vol] 9.1 fL Normal 8.1-13.5 [facility] Comment on above: Performed By: #### P HEP, HIVCMB #### [address] [id number] [employer] Operator: Antonino Nova MD #### BMPCMP, BMP, CBC #### [facility] [address] [place], [place] [id number] [employer] Operator: Merlin Charles MD Platelets (Bld) [#/Vol] 203 10*3/uL Normal 138-453 [facility] Comment on above: Performed By: #### P HEP, HIVCMB #### [address] [address] [employer] Operator: Antonino Nova MD #### BMPCMP, BMP, CBC #### [facility] [address] [place] [address] [employer] Operator: Merlin Charles MD RBC (Bld) [#/Vol] 3.93 10*6/uL Low 3.95-5.11 [facility] Comment on above: Performed By: #### P HEP, HIVCMB #### [address] [address] [employer] Operator: Antonino Nova MD #### BMPCMP, BMP, CBC #### [facility] [address] [place], [place] [id number] [employer] Operator: Merlin Charles MD WBC (Bld) [#/Vol] 4.1 10*3/uL Normal 3.5-11.3 [facility] Comment on above: Performed By: #### P HEP, HIVCMB #### [address] [address] [employer] Operator: Antonino Nova MD #### BMPCMP, BMP, CBC #### [facility] [address] [place], [place] [id number] [employer] Operator: Merlin Charles MD HCV RNA,Quant,PCRon 04-19-20 [address] .[address] Normal [facility] Comment on above: Performed By: #### P HEP, HIVCMB #### [address] [address] [employer] Operator: Antonino Nova MD #### BMPCMP, BMP, CBC #### [address] [place] [address] [employer] Operator: Merlin Charles MD HIV Ag/Abon 04-19-2022 HIV Ag/Ab Non-Reactive Normal [facility] Comment on above: Result Comment: No l aboratory evidence of HIV infection. If acute HIV infection is suspected, consider testing for HIV-1 RNA. Performed By: #### P HEP, HIVCMB #### [address] [address] [employer] Operator: Antonino Nova MD #### BMPCMP, BMP, CBC #### [address] [place] [address] [employer] Operator: Merlin Charles MD Hepatitis Acute [facility] 04-19 Hep A Ab,IgM Non-Reactive Normal [facility] Comment on above: Performed By: #### P HEP, HIVCMB #### [address] [address] [employer] Operator: Antonino Nova MD #### BMPCMP, BMP, CBC #### [address] [place] [address] [employer] Operator: Merlin hCarles MD Hep B Core Ab,IgM Non-Reactive Normal [facility] Comment on above: Performed By: #### P HEP, HIVCMB #### [address] [address] [employer] Operator: Antonino Nova MD #### BMPCMP, BMP, CBC #### [address] [place] [address] [employer] Operator: Merlin Charles MD Hep B Surf Ag Non-Reactive Normal [facility] Comment on above: Performed By: #### P HEP, HIVCMB #### [address] [id number] [employer] Operator: Antonino Nova MD #### BMPCMP, BMP, CBC #### [address] [place] [address] [employer] Operator: Merlin Charles MD Hep C Ab Reactive Abnormal [facility] Comment on above: Result Comment: [...] Performed By: #### P HEP, HIVCMB #### [facility] [address] [place], [place] [id number] [employer] Operator: Antonino Nova MD #### NUCMJessie, BMP, CBC #### [facility] [address] [place] [address] [place] [address] [employer] Operator: Merlin Charles MD CBCon 11-09-2021 Hematocrit (Bld) [Volume fraction] 39.5 % 36.3 - 47.1 % [facility] Hemoglobin (Bld) [Mass/Vol] 12.6 g/dL 11.9 - 15.1 g/dL [facility] Interpretation and review of laboratory results Abnormal [facility] MCH (RBC) [Entitic mass] 32.6 pg 25.2 - 33.5 pg [facility] MCHC (RBC) [Mass/Vol] 31.9 g/dL 28.4 - 34.8 g/dL [facility] MCV (RBC) [Entitic vol] 102.3 fL 82.6 - 102.9 fL [facility] NRBC Automated 0.0 0.0 per 100 WBC [facility] Platelet distribution width (Bld) [Ratio] 14.9 % High 11.8 - 14.4 % [facility] Platelet mean volume (Bld) [Entitic vol] 9.7 fL 8.1 - 13.5 fL [facility] Platelets (Bld) [#/Vol] 175 10*3/uL [facility] RBC (Bld) [#/Vol] 3.86 10*6/uL Low 3.95 - 5.1 1 m/uL [facility] WBC (Bld) [#/Vol] 3.4 10*3/uL Low [facility] Comprehensive Metabolic Pane elvin 11-09-2021 Albumin [Mass/Vol] 4.7 g/dL 3.5 - 5.2 g/dL [facility] Albumin/Globulin [Mass ratio] 2.5 {ratio} [facility] ALP (Bld) [Catalytic activity/Vol] 76 U/L 35 - 104 U/L [facility] ALT [Catalytic activity/Vol] 50 U/L High 5 - 33 U/L [facility] Anion gap [Moles/Vol] 10 mmol/L 9 - 17 mmol/L [facility] AST [Catalytic activity/Vol] 40 U/L High <32 [facility] Bilirubin [Mass/Vol] 0.55 mg/dL 0.3 - 1 .2 mg/dL [facility] Calcium [Mass/Vol] 10.4 mg/dL 8.6 - 10. 4 mg/dL [facility] Chloride [Moles/Vol] 107 mmol/L 98 - 10 7 mmol/L [facility] CO2 [Moles/Vol] 25 mmol/L 20 - 31 mmol/L [facility] Creatinine [Mass/Vol] 0.72 mg/dL 0.50 - 0.90 mg/dL [facility] Free PSA/Total PSA [Mass fraction] 6.6 g/dL 6.4 - 8.3 g/dL [facility] GFR >60 >60 mL/min [facility] GFR Non- >60 >60 mL/min [facility] Glucose [Mass/Vol] 76 mg/dL 70 - 99 mg/dL [facility] Interpretation and review of laboratory results Abnormal [facility] Potassium [Moles/Vol] 3.9 mmol/L 3.7 - 5.3 mmol/L [facility] Sodium [Moles/Vol] 142 mmol/L 135 - 144 mmol/L [facility] Urea nitrogen (BldV) [Mass/Vol] 12 mg/dL 6 - 20 mg/dL [facility] Urea nitrogen/Creatinine (Bld) [Mass ratio] 17 [facility] HCG Qualitative, Serumon hCG Qual Negative NEGATIVE [facility] Comment on above: Specimens with hCG l evels near the threshold of the test (25 mIU/mL) may give a negative or indeterminate result. In such cases, another test should be performed with a new specimen in 48-72 hours. If early is suspected clinically in this setting, correlation with quantitative serum b-hCG level is suggested. [facility] has confirmed the use of plasma for this test. This has not been cleared or approved by the U.S. Food and Drug Administration. The FDA has determined that such clearance is not necessary. [facility] HIV Screenon 11-09-2021 HIV Ag/Ab Non-Reactive NONREACTIVE [facility] Comment on above: No laboratory eviden ce of HIV infection. If acute HIV infection is suspected, consider testing for HIV-1 RNA. [facility] Hepatitis Panel, Acuteon HAV IgM IA Qn (S) Non-Reactive NONREACTIVE [facility] Hep B Core Ab, IgM Non-Reactive NONREACTIVE [facility] Hepatitis B Surface Ag Non-Reactive NONREACTIVE [facility] Hepatitis C Ab Reactive Abnormal NONREACTIVE [facility] Comment on above: The hepatitis [...] and review of laboratory results Abnormal [facility] Laboratory - Chemistry and C hemistry - challengeon 11-09-2021 GFR/1.73 sq M.predicted MDRD (S/P/Bld) [Vol rate/Area] [facility] Comment on above: Average GFR for 20-2 9 years old: 116 mL/min/1.73sq m Chronic Kidney Disease: <60 mL/min/1.73sq m Kidney failure: <15 mL/min/1.73sq m eGFR calculated using average adult body mass. Additional eGFR calculator available at: http://[email or web address]/multiple_crcl_2012.htm Stage 1: Some kidney damage normal GFR Stage 2: Mild kidney damage GFR 60-89 Stage 3: Moderate kidney damage GFR 30-59 Stage 4: Severe kidney damage GFR 15-29 Stage 5: Severe kidney damage GFR <15 ESRD - chronic treatment by dialysis or transplant Microscopic Ur[facility]ysison - [facility] Bacteria, UA 4+ Abnormal None [facility] Epithelial Cells UA 2 TO 5 [facility] Interpretation and review of laboratory results Abnormal [facility] Mucus, UA 1+ Abnormal None [facility] RBC, UA 0 TO 2 [facility] WBC, UA 20 TO 50 [facility] Urinalysis with Reflex to Cu ltureon 10-27-2021 Bilirubin Urine SMALL Abnormal NEGATIVE [facility] Color, UA Yellow Yellow [facility] Glucose, Ur Negative NEGATIVE [facility] Interpretation and review of laboratory results Abnormal [facility] Ketones Ql (U) Negative NEGATIVE [facility] Leukocyte esterase Test strip Ql (U) MODERATE Abnormal NEGATIVE [facility] Nitrite, Urine Negative NEGATIVE [facility] pH, UA 6.5 [facility] Protein, UA TRACE Abnormal NEGATIVE [facility] Specific [place], UA 1.025 High [facility] Turbidity UA SLIGHTLY CLOUDY Abnormal Clear [facility] Urine Hgb Negative NEGATIVE [facility] Urobilinogen, Urine Normal Normal [facility] Microscopic Urinalysison - [facility] Bacteria, UA 1+ Abnormal None [facility] Epithelial Cells UA 5 TO 10 [facility] Interpretation and review of laboratory results Abnormal [facility] RBC, UA 0 TO 2 [facility] WBC, UA 5 TO 10 [facility] Urinalysis with Reflex to Cu ltureon 10-07-2021 Bilirubin Urine Negative NEGATIVE [facility] Color, UA Yellow Yellow [facility] Glucose, Ur Negative NEGATIVE [facility] Interpretation and review of laboratory results Abnormal [facility] Ketones Ql (U) Negative NEGATIVE [facility] Leukocyte esterase Test strip Ql (U) MODERATE Abnormal NEGATIVE [facility] Nitrite, Urine Negative NEGATIVE [facility] pH, UA 5.5 [facility] Protein, UA Negative NEGATIVE [facility] Specific [place], UA 1.025 High [facility] Turbidity UA Clear Clear [facility] Urine Hgb Negative NEGATIVE [facility] Urobilinogen, Urine Normal Normal [facility] SEROLOGYOrdered By: Suly Raman on 07-24-2021 HCG.beta subunit (U) [Moles/Vol] Negative Normal [facility] [place] [place] Man Sero Tobacco Screening.on 022 Adult depression screening assessment Yes [facility] [address] DO Work Phone: Tobacco use status CP a) Yes [facility] DO Work Phone: [phone] Tobacco Screening. Yes [facility] [place] 250 DO Work Phone: [phone] Tobacco Screening. 3-Nearly every day [facility] 250 DO Work Phone: [phone] Tobacco Screening. 2-More than half the days [facility] 250 DO Work Phone: [phone] Tobacco Screening. 0-Not at all [facility] [place] 250 DO Work Phone: [phone] Tobacco Screening. Very Difficult [facility] [place] 250 DO Work Phone: [phone] XR SHOULDER LT 2V or >on XR [...] by: Janine DURON Date: 2021-07-04 02:09 Normal [facility] Vital Signs Date Time Vital Sign Value Performing Clinician Facility 02-21-2024 13:38-0400 Body height 160.02 cm [facility] 02-21-2024 13:38-0400 Body mass index (BMI) [Ratio] 25.4 kg/m2 [facility] 02-21-2024 13:38-0400 Body weight 65.34 kg [facility] 02-21-2024 13:38-0400 Heart rate 68 /min [facility] 07-06-2023 15:10-0500 Body temperature 98.42 [degF] Adolfo Hernandez [facility] 07-06-2023 15:10-0500 Diastolic blood pressure 69 mm[Hg] Adolfo Hernandez [facility] 07-06-2023 15:10-0500 Heart rate 102 /min Adolfo Hernandez [facility] 07-06-2023 15:10-0500 Respiratory rate 16 /min Adolfo Hernandez [facility] 07-06-2023 15:10-0500 SaO2% (BldA) [Mass fraction] 100 % Adolfo Hernandez [facility] 07-06-2023 15:10-0500 Systolic blood pressure 100 mm[Hg] Adolfo Hernandez [facility] 07-24-2021 17:25-0400 Body temperature 96.98 [degF] Zev Hamlin [facility] 07-24-2021 17:25-0400 Heart rate 66 /min Zev Hamlin [facility] 07-24-2021 17:25-0400 Respiratory rate 110 /min Zev Hamlin [facility] 07-24-2021 17:25-0400 SaO2% (BldA) [Mass fraction] 100 % Zev Hamlin [facility] 07-24-2021 17:25-0400 Systolic blood pressure 68 mm[Hg] Zev Hamlin [facility] 07-24-2021 17:20-0400 Body temperature 97.7 [degF] Zev Hamlin [facility] 07-24-2021 17:20-0400 Diastolic blood pressure 63 mm[Hg] Zev Hamlin [facility] 07-24-2021 17:20-0400 Heart rate 65 /min Zev Hamlin [facility] 07-24-2021 17:20-0400 Respiratory rate 11 /min Zev Hamlin [facility] 07-24-2021 17:20-0400 SaO2% (BldA) [Mass fraction] 100 % Zev Hamlin [facility] 07-24-2021 17:20-0400 Systolic blood pressure 106 mm[Hg] Zev Hamlin [facility] 07-24-2021 17:05-0400 Diastolic blood pressure 70 mm[Hg] Zev Hamlin [facility] 07-24-2021 17:05-0400 Heart rate 78 /min Zev Hamlin [facility] 07-24-2021 17:05-0400 Respiratory rate 11 /min Zev Hamlin [facility] 07-24-2021 17:05-0400 SaO2% (BldA) [Mass fraction] 100 % Zev Hamlin [facility] 07-24-2021 17:05-0400 Systolic blood pressure 109 mm[Hg] Zev Hamlin [facility] 07-24-2021 17:00-0400 Diastolic blood pressure 54 mm[Hg] Zev Hamlin [facility] 07-24-2021 16:53-0400 Body temperature 97.52 [degF] Zev Hamlin [facility] 07-24-2021 11:18-0400 Blood Pressure Location Zev Hamlin [facility] 07-24-2021 11:18-0400 BP/Pulse Patient Position Zev Hamlin [facility] 07-24-2021 11:18-0400 Mean blood pressure 78 mm[Hg] Zev Hamlin [facility] 07-24-2021 11:17-0400 Blood Pressure Location Zev Hamlin [facility] 07-24-2021 11:17-0400 Body temperature 98.24 [degF] Zev Hamlin [facility] 07-24-2021 11:17-0400 BP/Pulse Patient Position Zev Hamlin [facility] 07-24-2021 11:17-0400 Mean blood pressure 84 mm[Hg] Zev Hamlin [facility] 07-24-2021 11:17-0400 Respiratory rate 16 /min Zev Hamlin [facility] 07-24-2021 11:17-0400 Heart rate 72 /min Zev Hamlin [facility] 07-09-2021 09:07-0500 Diastolic blood pressure 62 mm[Hg] No PCP None [facility] [place] 250 DO Work Phone: 07-09-2021 09:07-0500 Systolic blood pressure 102 mm[Hg] No PCP None [facility] 250 DO Work Phone: 07-09-2021 09:01-0500 Body height 160.02 cm No PCP None [facility] [place] [facility] DO Work Phone: 07-09-2021 09:01-0500 Body mass index (BMI) [Ratio] 27.1 kg/m2 No PCP None [facility] [place] 250 DO Work Phone: 07-09-2021 09:01-0500 Body surface area Derived from formula 1.73 m2 No PCP None [facility] 250 DO Work Phone: 07-09-2021 09:01-0500 Body weight 69.4 kg No PCP None [facility] 250 DO Work Phone: 07-09-2021 09:01-0500 Diastolic blood pressure 62 mm[Hg] No PCP None [facility] 250 DO Work Phone: 07-09-2021 09:01-0500 Heart rate 59 /min No PCP None [facility] 250 DO Work Phone: 07-09-2021 09:01-0500 Systolic blood pressure 104 mm[Hg] No PCP None [facility] 250 DO Work Phone: 07-09-2021 09:01-0500 18 1 No PCP None [facility] DO Work Phone: Comment on above: PHQ-9 TS Encounters Encounter Date Encounter Type Care Provider Facility Start: 05-03-2024 End: 05-03-2024 Patient encounter procedure [facility] Work Phone: Start: 05-03-2024 End: 05-03-2024 ambulatory NON STAFF [facility] Work Phone: Start: 04-19-2024 End: 04-19-2024 Patient encounter procedure [facility] [place] Work Phone: Start: 04-19-2024 End: 04-19-2024 ambulatory Imad Asaad Facility:[facility] Start: 03-12-2024 End: 03-12-2024 Emergency department patient visit ISAIAS ADDISON [facility] Start: 02-21-2024 End: 02-21-2024 ambulatory NON STAFF [facility] Work Phone: Start: 02-21-2024 End: 02-21-2024 Patient encounter procedure [facility] Work Phone: Start: 02-09-2024 End: 02-09-2024 Lab Drop off Zev Hamlin [facility] Start: 02-09-2024 End: 02-09-2024 ambulatory Zev Hamlin Facility:[facility] [place] Start: 01-14-2024 End: 01-14-2024 Emergency department patient visit NO PCP NO PCP [facility] Start: 10-24-2023 ambulatory Zev Hamlin [facility] Start: 10-23-2023 End: 10-23-2023 Emergency department patient visit NO PCP NO PCP [facility] Start: 09-08-2023 End: 09-08-2023 ambulatory [facility] Start: 09-08-2023 Encounter for genera l adult medical examination without abnormal findings NO NO PCP [facility] Start: 08-19-2023 End: 08-19-2023 Emergency department patient visit NO PCP NO PCP [facility] Start: 07-06-2023 End: 07-06-2023 Emergency department patient visit Adolfo Hernandez [facility] Start: 06-17-2023 End: 06-17-2023 ambulatory [facility] Start: 02-16-2023 ambulatory [facility] Start: 01-19-2023 ambulatory [facility] Start: 01-06-2023 ambulatory [facility] Start: 12-10-2022 End: 12-11-2022 ambulatory [facility] Start: 11-04-2022 ambulatory [facility] Start: 09-22-2022 End: 09-23-2022 ambulatory [facility] Start: 09-13-2022 End: 09-14-2022 ambulatory [facility] Start: 09-13-2022 End: 09-13-2022 [facility] Start: 09-10-2022 End: 09-11-2022 ambulatory HIPOLITO [facility] Start: 09-10-2022 End: 09-10-2022 Subsequent [facility] Start: 04-19-2022 End: 04-20-2022 ambulatory [facility] Start: 11-09-2021 End: 11-09-2021 Subsequent [facility] Start: 10-27-2021 End: 10-27-2021 Subsequent [facility] Start: 10-06-2021 End: 10-06-2021 Subsequent hospital visit by physician [facility] Start: 07-24-2021 End: 07-24-2021 Admission to same day surgery center Zev Hamlin [facility] Start: 07-09-2021 Office consultation new/estab patient 60 min No PCP None -[facility] 250 DO Work Phone: Start: 07-04-2021 End: 07-04-[address] RADHA MOE Facility:[facility] Start: 06-29-2021 End: 10-15-2021 Recurring Zev Hamlin [facility] Patient encounter status No PCP None -[facility] [place] 250 DO Work Phone: Procedures Date Procedure Procedure Detail Performing Clinician Start: 05-03-2024 Ultrasound elastogra phy of liver Start: 04-19-2024 Ultrasonography of liver Start: 09-13-2022 Antibody hiv-1&hiv-2 single result Hipolito Jackie [employer] Work Phone: Start: 09-13-2022 Comprehensive metabo lic panel Hipolito Jackie [employer] Work Phone: Start: 11-09-2021 Antibody hiv-1&hiv-2 single result Hipolito Jackie [employer] Work Phone: Start: 11-09-2021 Comprehensive metabo lic panel Hipolito Jackie [employer] Work Phone: Start: 10-27-2021 Urinalysis microscop ic only Hipolito Jackie [employer] Work Phone: Start: 10-27-2021 Urnls dip stick/tabl et rgnt auto w/o microscopy Hipolito Jackie [employer] Work Phone: Start: 10-06-2021 Urinalysis microscop ic only Hipolito Jackie [employer] Work Phone: Start: 10-06-2021 Urnls dip stick/tabl et rgnt auto w/o microscopy Hipolito Jackie [employer] Work Phone: section No PCP None section Zev crafword INSERTION TRANSMITTE R IN CHEST 1 Zev [...] Treatment Date Care Activity Detail Author Start: 05-03-2024 [facility] Start: 02-21-2024 Hepatitis A virus Ab [Presence] in Serum by Immunoassay [facility] Start: 02-21-2024 Hepatitis B core antibody measurement [facility] Start: 02-21-2024 Hepatitis B virus surface Ab [Presence] in Serum [facility] Start: 02-21-2024 [facility] Start: 11-30-2022 Influenza vaccination Flu vacc ine (Season Ended) [facility] Start: 01-06-2022 Screening for malign ant neoplasm of cervix [facility] Start: 12-31-2021 Influenza vaccination B ON [facility] Start: 11-25-2021 FUV, Provider: Ruddy Garcia, Status: Pen, Time: 3:00 PM FUV, Provider: Ruddy Garcia, Status: Pen, Time: 3:00 PM [facility] 250 DO Work Phone: Start: 07-15-2021 ECHO, Provider: DAJA MCCURDY [facility] ULTRASOUND 01,[id number], Status: Pen, Time: 11:30 AM ECHO, Provider: MAXINE [facility] ULTRASOUND 01,[id number], Status: Pen, Time: 11:30 AM [facility] [employer] 250 DO Work Phone: Start: 07-15-2021 STRESS NUC, Provider : MAXINE [facility] NUCLEAR 01,[id number], Status: Pen, Time: 11:30 AM STRESS NUC, Provider: MAXINE [facility] NUCLEAR 01,[id number], Status: Pen, Time: 11:30 AM [facility] [employer] 250 DO Work Phone: Start: 01-06-2013 Screening for malign ant neoplasm of cervix Pap smear [facility] Start: 01-06-2011 DTaP/Tdap/Td vaccine (1 - Tdap) DTaP/Tdap/Td vaccine (1 - Tdap) [facility] Start: 01-06-2010 Hepatitis C screening Hepatitis C sc reen [facility] Start: 2004 Depression Screen Depression Screen [facility] Start: 01-06-1998 Pneumococcal 0-64 ye ars Vaccine (1 - PCV) Pneumococcal 0-64 years Vaccine (1 - PCV) [facility] Start: 01-06-1997 COVID-19 Vaccine (1) COVID-19 Vaccin e (1) [facility] Start: 01-06-1993 Varicella vaccine (1 of 2 - 2-dose childhood series) Varicella vaccine (1 of 2 - 2-dose childhood series) [facility] Start: 1992 COVID-19 Vaccine (#1) COVID-19 Vacci ne (#1) [facility] End: 10-27-2021 Culture, Urine [facility] Work Phone: Comment on above: Once for 1 Occurrenc es starting 10/27/2021 until 10/27/2021 Hepatitis B virus surface Ag [Presence] in Serum or Plasma by Immunoassay [facility] End: 09-13-2022 Hepatitis C RNA, quantitative, PCR [facility]: Comment on above: Once for 1 Occurrenc es starting 09/13/2022 until 09/13/2022 Hepatitis C virus Ig G Ab [Presence] in Serum or Plasma by Immunoassay [facility] Hepatitis C virus RN A [Units/volume] (viral load) in Serum or Plasma by BETZAIDA with probe detection [facility] US Liver [facility] Immunizations Immunization Date Immunization Notes Care Provider Fa cility 05-14-2012 influenza, seasonal, injectable Zev Hmalin [facility] Comment on above: Early/Late Reason: P atient Not Available/Off Unit 05-14-2012 measles, mumps and rubella virus vaccine eZv Hamlin [facility] Comment on above: Early/Late Reason: P atient Not Available/Off Unit Payers Date Payer Category Payer Self-pay [id number] 2023 Private Health Insurance [id number] 2020 Unknown [id number] 2019 Unknown [id number] 1992 Unknown [id number] 1992 Unknown [id number] 1992 Unknown [id number] 1992 Unknown [id number] 1990 Unknown [id number] 2.16.840.1.347601.3.579.2. 173 1990 Unknown [id number] 2.16.840.1.225540.3.579.2. 173 1990 Unknown [id number] 2.16.840.1.810067.3.579.2. 983 1990 Unknown [id number] 2.16.840.1.521706.3.579.2. 983 1992 Unknown [id number] 2.16.840.1.862546.3.579.2. 983 1992 Unknown [id number] 2.16.840.1.561433.3.579.2. 983 1992 Unknown [id number] 2.16.840.1.029022.3.579.2. 727 1992 Unknown [id number] 2.16.840.1.959788.3.579.2. 727 1992 Unknown [id number] 2.16.840.1.490717.3.579.2. 727 1992 Unknown [id number] 2.16.840.1.374111.3.579.2. 6 1992 Unknown [id number] 2.16.840.1.419379.3.579.2. 1285 1992 Unknown [id number] 2.16.840.1.585987.3.579.2. 1285 1992 Unknown [id number] 2.16.840.1.876956.3.579.2. 1285 1992 Unknown [id number] 2.16.840.1.565641.3.579.2. 1285 1992 Unknown [id number] 2.16.840.1.092519.3.579.2. 1285 1992 Unknown [id number] 2.16.840.1.421838.3.579.2. 727 1959 Unknown [id number] Medicaid [employer] Medicaid [id number] 500 [id number] Unknown [facility] Unknown [id number] 2.16.840.1.781948.3.579.2. 531 Unknown [id number] 2.16.840.1.974590.3.579.2. 531 Unknown [id number] 2.16.840.1.683758.3.579.2. 531 Social History Date Type Detail Facility Start: 08-14-2013 End: 10-13-2017 Consumes alcohol occasionally Consumes alcohol occasionally -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) [facility] [employer] Phone: Start: 1990 Sex Assigned At Not on file [facility] [employer] Phone: Start: 1990 Sex Assigned At Female F [facility] Work Phone: Start: 05-03-2024 Sex Female (finding) [facility] Functional Status Date Assessment Result Facility 07-06-2023 Functional Status N/A [facility] 07-09-2021 PHQ-9 [id number] Moder ately Severe (15-19) [facility] 250 DO Work Phone: Clinical Notes [...] previous workup we will initiate antiviral therapy [facility] Work Phone: 1(109) 128-962710-22-2024 Evaluation note* Author Flip Morejon [facility] Authored February 21, 2024 1 :00pm 34-year-old female referred to the liver clinic for evaluation of hepatitis C. Patient was diagnosed hepatitis C many years ago. Patient has treatment na ve. Check viral hepatitis serologies, HCV RNA and HCV genotype. Will arrange for FibroScan. After getting the results of the previous workup we will initiate antiviral therapy [facility] Work Phone: 1(672) 118-207603-08-2024 NoteMicrobiology PROCEDURE: Cervical Culture [R1] SOURCE: Cerv BODY SITE: COLLECTED DATE/TIME: 07/06/2023 15:36 EST RECEIVED DATE/TIME: 07/06/2023 15:45 EST START DATE/TIME: 07/06/2023 15:45 EST FREE TEXT SOURCE: Bernadette Gil PA-C, PA-C, Jenna E. FINAL REPORTS Final Report [] Verified Date/Time: 07/08/2023 12:41 EST 3+ Escherichia coli STAINS Wet Prep Report [] Verified Date/Time: 07/06/2023 16:10 EST No clue cells present No Trichomonas vaginalis present No yeast seen SUSCEPTIBILITY RESULTS LEGEND: S=Susceptible, N/R=Not Reported, Blank=Data not available, or drug not advisable or tested, I=Intermediate, ESBL=Extended spectrum beta-lactamase, R=Resistant, TFG=Thymidine-dependent strain, JOSE CAROLS=Beta-lactamase positive, TESSY=mcg/m;(mg/L), S*=Predicted susceptible interp, R*=Predicted resistant [...] Locations R1: This test was performed at: [facility], [address] [place] [address], [phone]- , , [facility]:Performed By: #### [id number] #### [facility] [address] [place] [address] [id number] Hospital Discharge instructions Patient Education 07/06/2023 15:38:59 Viral Respiratory Infection, Qobs-Ei-Svlu Viral Respiratory Infection A viral respiratory infection [...] at home: Managing pain and congestion Take fzka-rmd-shxhjwy and prescription medicines only as told by [...] cannot use soap and water, use hand medical review coordinator. ?Cover your mouth when you cough. Cover [...] provider. Document Revised: 07/23/2021 Document Reviewed: 07/23/2021 [employer] Patient Education 2022 [employer]. Follow Up Care 07/06/2023 15:07:50 With:Boubacar MULLINS, Zev Webber, ROBYN Address: [address] [place] [address] [address] When:2 to 4 days With:[facility] Dept: [phone] Address:Unknown When:07/09/2023 [facility]03-06-2024 Evaluation + Plan note Diagnostic Tests Pending * Chlam/GC/Trich,BETZAIDA 07/06/23 * Urine Culture 07/06/23 [facility]03-25-2022 Hospital Discharge instructions Patient Education 07/24/2021 17:19:35 PUBLIC SERVICES ASSISTANT - Post D&C, Hysteroscopy, LEEP or Essure/Laparoscopy [...] Up Care 06/01/2021 16:23:25 With:Zev Hamlin Address: [address] [place], [place] [address] [address] [address]- Business (1) When:2 weeks Comments:Call for any problems. [facility] Narrative - ReportedDOUGLAS NICHOLSON is being seen for a consultation for. POC abnormal ECG; Dr. Hamlin [facility] Work Phone: Chi complaint Narrative - ReportedCHEABDOULAYE NICHOLSON is being seen for a consultation for. POC abnormal ECG; Dr. Hamlin [facility] Work Phone: Evaluation + Plan note No data available for this section [facility] assessment information available [facility] Work Phone: History of Present illness Narrative* Patient is seen for preoperative risk assessment. She apparently presented for tubal ligation and procedure was canceled because of abnormal EKG. * She has been in and out of the emergency room multiple times. Recently she was in [place] at the hospital and they also noted [...] correspond with the surgeon in this regard. -[facility] 250 DO Work Phone: History of Present illness Narrative* Patient is seen for preoperative risk assessment. She apparently presented for tubal ligation and procedure was canceled because of abnormal EKG. * She has been in and out of the emergency room multiple times. Recently she was in [place] at the [facility] and they also noted abnormal EKG and [...] correspond with the surgeon in this regard. 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 Latest Code Status on File Code Status Date Activated Date Inactivated Comments Full Code 03/06/2018 12:17 AM 03/06/2018 4:09 AM Latest Code Status on File Code Status Date Activated Date Inactivated Comments Full Code 03/06/2018 12:17 AM 03/06/2018 4:09 AM Advance Directive Response Recorded Date/ Time Advance Directives No November 10 10:42am Advance Directive Response Recorded Date/ Time Advance Directives No November 10 9:42am Chief Complaint and Reason for Visit Chief Complaint Refer Minerva Stringer: hepatitis Chief Complaint Refer Minerva Stringer: hepatitis B19.20 Chief Complaint Admit Date Refer Minerva Stringer: hepatitis January 312023 1:19pm B19.20 February 21, 2024 2 :06pm B19.20 April 19, 2024 1:34pm hep c May 03, 2024 12 :32pm Additional Source Comments INFORMATION SOURCE (unrecogn ized section and content) DATE CREATED AUTHOR 07/14/2021 [facility] DATE CREATED AUTHOR AUTHOR'S ORGANIZ ATION 12/12/2022 [facility] DATE CREATED AUTHOR AUTHOR'S ORGANIZ ATION 02/17/[address] [facility] DATE CREATED AUTHOR AUTHOR'S ORGANIZ ATION 02/16/2024 [facility] DATE CREATED AUTHOR AUTHOR'S ORGANIZ ATION 03/14/2024 [facility] DATE CREATED AUTHOR AUTHOR'S ORGANIZ ATION 03/15/2024 [facility] DATE CREATED AUTHOR AUTHOR'S ORGANIZ ATION 05/16/2024 [facility] Care Teams (unrecognized sec tion and content) Team Status: Active Member Role Status Dates Michael Mejia MD Primary Care Provider Active Team Status: Inactive Member Role Status Dates PHYSICIAN NO FAMILY Primary Care Provider Active Start: February 21, 2024 End: February 21, 2024 Flip Morejon MD Attending Provider Active Start: February 21, 2024 End: February 21, 2024 Minerva Stringer NP-C Referring Provider Active Start: February 21, 2024 End: February 21, 2024 Team Status: Inactive Member Role Status Dates NON STAFF Primary Care Provider Active Start: February 21, 2024 End: February 21, 2024 Flip Morejon MD Attending Provider Active Start: February 21, 2024 End: February 21, 2024 Team Status: Inactive Member Role Status Dates Flip Morejon MD Attending Provider Active Start: April 19, 2024 End: April 19, 2024 Michael Mejia MD Primary Care Provider Active Start: April 19, 2024 End: April 19, 2024 Team Status: Inactive Member Role Status Dates Flip Morejon MD Attending Provider Active Start: May 03, 2024 End: May 03, 2024 Michael Mejia MD Primary Care Provider Active Start: May 03, 2024 End: May 03, 2024 Team Status: Active Member Role Status Dates NON STAFF Primary Care Provider Active Team Status: Inactive Member Role Status Dates PHYSICIAN NO FAMILY Primary Care Provider Active Start: February 21, 2024 End: February 21, 2024 Flip Morejon MD Attending Provider Active Start: February 21, 2024 End: February 21, 2024 Minerva Stringer NP-C Referring Provider Active Start: February 21, 2024 [...] February 21, 2024 End: February 21, 2024 Minerva Marialuisa Siomara , FLEXO FOLDER GLUER OPERATOR-C Referring Provider Active Start: February 21, 2024 [...] BE BASED ON THE PRIMARY CLINICAL RECORDS. [facility] [employer] [facility]. provides no warranty or guarantee of the accuracy or completeness of information in this document.
[2024-05-30 21:49] VITALS: BP 121/72; PULSE 54; TEMP 36.6; O2SAT 94
--- NOTE | 2024-05-30 22:02 | ECG_ITS ---
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
--- NOTE | 2024-05-30 22:02 | XR_ITS ---
The [address] [address] Patient Name: SANGEETA MYLES MRN: [id number] date: 1990 Sex: F Assigned Patient Location: ER Current Patient Location: Accession/Order Number: [id number] Exam Date: 05/30/2024 22:59 Report Date: 05/31/2024 00:55 At the request of: PAUL PLASENCIA Procedure: XR chest 1V EXAM: XR chest 1V HISTORY: poss withdrawal COMPARISON: Chest radiographs dated 04/11/2024. TECHNIQUE: One view of the chest was obtained. FINDINGS: The cardiac silhouette is mildly enlarged. There is mild suspected right basilar atelectasis. There is no significant pneumothorax or pleural effusion. No acute osseous abnormality is seen. XR/XR chest 1V IMPRESSION: 1. Mildly enlarged cardiac silhouette with suspected right basilar atelectasis. Electronically authenticated by: Janine DURON Date: 05/31/2024 00:55
--- NOTE | 2024-05-30 22:26 | ED.GENADUL1 ---
HPI HPI - General Adult General Chief complaint: Overdose Stated complaint: POSSIBLE WITHDRAWAL Time Seen by Provider: 05/30/24 21:43 Source: family Mode of arrival: Wheelchair History of Present Illness HPI narrative: 34-year-old female presents for feeling restless and anxious. Much of the history is given by her friend but the patient also contributes history. They state that the patient has been clean for 90 days and then took a dose of Vivitrol today and shortly afterwards became anxious and restless and nauseous. No known fever. Her legs feel restless. Denies any current substance use. Related Data Home Medications ?Medication ?Instructions ?Recorded ?Confirmed trazodone 100 mg tablet 100 mg PO BEDTIME 11/09/22 04/11/24 buprenorphine 8 mg-naloxone 2 mg 1.5 film sublingual DAILY 10/25/23 sublingual film buspirone 10 mg tablet 10 mg PO DAILY 04/11/24 04/11/24 furosemide 20 mg tablet 20 mg PO Q48H 04/11/24 04/11/24 hydroxyzine pamoate 25 mg capsule 25 mg PO Q6H 04/11/24 04/11/24 melatonin 10 mg tablet 10 mg PO DAILY 04/11/24 04/11/24 prazosin 1 mg capsule 1 mg PO DAILY 04/11/24 04/11/24 sertraline 25 mg tablet 25 mg PO Q24H 04/11/24 04/11/24 sertraline 50 mg tablet 50 mg PO Q24H 04/11/24 04/11/24 trazodone 50 mg tablet 50 mg PO DAILY 04/11/24 04/11/24 Previous Rx's ?Medication ?Instructions ?Recorded pantoprazole 40 mg tablet,delayed 40 mg PO DAILY #30 tabs 10/24/23 release (Protonix) cyanocobalamin (vitamin B-12) 1,000 mcg IM .Weekly 4 weeks #4 ea 10/26/23 1,000 mcg/mL injection kit cyanocobalamin (vitamin B-12) 1,000 mcg IM DAILY 3 days #3 ea 10/26/23 1,000 mcg/mL injection kit lactulose 10 gram/15 mL oral 20 g (30 mL) PO BID #237 mL 10/26/23 solution Allergies Allergy/AdvReac Type Severity Reaction Status Date / Time No Known Drug Allergies Allergy Verified 01/29/25 21:59 Opioid HPI Opioid Management Most Recent Opioid Data: Last Pain Scale 2 04/11/24 14:54 04/11/24 Last ORT Total Score 10 10/25/23 17:47 10/25/23 Last ORT Risk Category High Risk 10/25/23 17:47 10/25/23 Last COWS Score 0 05/30/24 22:54 05/30/24 Last COWS Severity Mild 10/26/23 07:31 10/26/23 Ur Phencyclidine Scrn Negative (NEGATIVE) 05/30/24 22:10 05/30/24 Review of Systems ROS Narrative A ten point review of systems is negative except as noted above. [facility] Medical History (Updated 05/31/24 @ 00:11 by Viral Reese MD) Urinary tract infection with hematuria ?N39.0 - Urinary tract infection, site not specified (ICD-10) ?R31.9 - Hematuria, unspecified (ICD-10) Oral thrush ?B37.0 - Candidal stomatitis (ICD-10) Single delivery by section ?O82 - Encounter for delivery without indication (ICD-10) Liver failure ?K72.90 - Hepatic failure, unspecified without coma (ICD-10) Hep C w/o coma, chronic ?B18.2 - Chronic viral hepatitis C (ICD-10) Neurocardiogenic syncope ?R55 - Syncope and collapse (ICD-10) Family History (Updated 10/23/23 @ 19:39 by Makayla Campos, JACOB) Mother Family history of COPD (chronic obstructive pulmonary disease) Other Family history of cancer Family history of hypertension Social History (Updated 10/23/23 @ 19:41 by Makayla Campos, JACOB) Within the past year, how often did you have a drink containing alcohol: never Within the past year, how many standard drinks containing alcohol did you have on a typical day: 1 or 2 Within the past year, how often did you have six or more drinks on one occasion: never Total score: 0 Score interpretation: A score less than 3 is consistent with normal alcohol consumption. 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; clean for four months Previous occupational history: [employer] Highest level of school completed/degree received: high school graduate Are you now , , , , never or living with a partner: living with partner In a typical week, how many times do you talk on the telephone with family, friends, or neighbors: 3 or more times per week How often do you get together with friends or relatives: 3 or more times per week How often do you attend methodist or sikhism services: never Little interest or pleasure in doing things: not at all Feeling down, depressed, or hopeless: not at all Feel stressed/tense/nervous/anxious/difficulty sleeping: to some extent Do you think of yourself as: straight/heterosexual Gender Identity: female Exam Narrative Exam Narrative: Nurses note and vital signs reviewed and patient is not hypoxic. General: The patient appears in no acute respiratory distress. She is quite restless. Skin: Warm, dry, no pallor noted. There is no rash noted. Head: Normocephalic, atraumatic Eye: Normal conjunctiva, no drainage Ears, Nose, Mouth, and Throat: oral mucosa is moist. Nares patent. Cardiovascular: Regular Rate and Rhythm Respiratory: Patient is in no distress, no accessory muscle use, lungs are clear to auscultation, no wheezing, rales or rhonchi Back: non-tender GI: Soft and nontender Musculoskeletal: The patient has no evidence of calf tenderness, no pitting edema, symmetrical pulses noted bilaterally Neurological: A&O x4, normal speech, restless, moves all 4 extremities well Psychiatric: Cooperative Constitutional Vital Signs, click to edit/add: Last Vital Signs Temp 97.8 F 05/30/24 21:49 Pulse 60 05/30/24 23:45 Resp 18 05/30/24 23:45 BP 109/55 05/30/24 23:45 Pulse Ox 93 L 05/30/24 23:45 O2 Del Method Room Air 05/30/24 21:49 Course Vital Signs Vital signs: Vital Signs Temperature 97.8 F 05/30/24 21:49 Pulse Rate 54 L 05/30/24 21:49 Respiratory Rate 28 H 05/30/24 21:49 Blood Pressure 121/72 05/30/24 21:49 Pulse Oximetry 94 L 05/30/24 21:49 Oxygen Delivery Method Room Air 05/30/24 21:49 Temperature 97.8 F 05/30/24 21:49 Pulse Rate 60 05/30/24 23:45 Respiratory Rate 18 05/30/24 23:45 Blood Pressure 109/55 05/30/24 23:45 Pulse Oximetry 93 L 05/30/24 23:45 Oxygen Delivery Method Room Air 05/30/24 21:49 Medical Decision Making MDM Narrative Medical decision making narrative: Workup including drug screen is negative. She was given IV fluids and IV Ativan and is feeling much better and she has been able to rest. The symptoms are likely due to the Vivitrol and this was discussed with her friend. She is able to be discharged home. Differential Diagnosis Differential Diagnosis: Adverse medication reaction, medication side effect Lab Data Lab results reviewed: Yes I reviewed the patient's lab results Labs: Lab Results 05/30/24 05/30/24 Range/Units 22:10 22:15 WBC 3.9 L (4.0-11.0) 10^3/uL RBC 3.99 L (4.20-5.40) 10^6/uL Hgb 11.9 L (12.0-16.0) g/dL Hct 36.8 (36.0-48.0) % MCV 92.2 (81.0-99.0) fL MCH 29.8 (26.7-34.0) pg MCHC 32.3 (29.9-35.2) g/dL RDW 13.1 (11.0-15.0) % Plt Count 157 (150-450) 10^3/uL MPV 10.6 (9.5-13.5) fL Neut % (Auto) 61.1 (43.0-75.0) % Lymph % (Auto) 32.9 (20.5-60.0) % [place] % (Auto) 5.7 (1.7-12.0) % Eos % (Auto) 0.0 L (0.9-7.0) % Baso % (Auto) 0.0 L (0.2-2.0) % Neut # (Auto) 2.4 (1.4-6.5) 10^3/uL Lymph # (Auto) 1.3 (1.2-3.8) 10^3/uL [place] # (Auto) 0.2 L (0.3-0.8) 10^3/uL Eos # (Auto) 0.0 (0.0-0.7) 10^3/uL Baso # (Auto) 0.0 (0.0-0.1) 10^3/uL Abs Immat Gran (auto) 0.01 (0.00-0.03) 10^3/uL Imm/Tot Granulo (auto) 0.3 (0.0-0.5) % Sodium 145 (136-145) mmol/L Potassium 4.3 (3.5-5.1) mmol/L Chloride 111 H (98-107) mmol/L Carbon Dioxide 27.5 (21.0-32.0) mmol/L Anion Gap 10.8 BUN 13.0 (7.0-18.0) mg/dL Creatinine 0.70 (0.55-1.02) mg/dL Est GFR ( Amer) >60 (>=60 mL/min/1.73m^2) Est GFR (Non-Af Amer) >60 (>=60 mL/min/1.73m^2) BUN/Creatinine Ratio 18.6 Glucose 105 (74-106) mg/dL Calcium 9.5 (8.5-10.1) mg/dL Total Bilirubin 0.5 (0.2-1.0) mg/dL Direct Bilirubin 0.2 (0.0-0.2) mg/dL AST 89 H (15-37) U/L ALT 136 H (14-59) U/L Alkaline Phosphatase 105 (46-116) U/L Total Protein 6.0 L (6.4-8.2) g/dL Albumin 3.4 (3.4-5.0) g/dL Globulin 2.6 g/dL Albumin/Globulin Ratio 1.3 Amylase 62 (25-115) U/L Lipase 41.0 (16.0-77.0) U/L Serum HCG, Qual Negative (NEGATIVE) Urine Color Lt. yellow (YELLOW) Urine Clarity Clear (CLEAR) Urine pH 7.5 (5.0-9.0) Ur Specific [place] 1.010 (1.005-1.025) Urine Protein Negative (NEG/TRACE) mg/dL Urine Glucose (UA) Negative (NEGATIVE) mg/dL Urine Ketones Negative (NEGATIVE) mg/dL Urine Occult Blood Negative (NEGATIVE) Urine Nitrite Negative (NEGATIVE) Urine Bilirubin Negative (NEGATIVE) Urine Urobilinogen 1.0 (0.2-1.0) EU/dL Ur Leukocyte Esterase Negative (NEGATIVE) Urine RBC None seen (0-2) #/HPF Urine WBC 0-2 A (NONE SEEN) #/HPF Ur Squamous Epith Cells Few A (NONE/RARE) #/LPF Urine Crystals None seen (None Seen) #/HPF Urine Bacteria Trace A (NONE SEEN) #/HPF Urine Casts None seen (NONE SEEN) #/LPF Urine Mucus None seen (NONE SEEN) Urine Opiates Screen Negative (NEGATIVE) Ur Buprenorphine Scrn Negative (NEGATIVE) Ur Oxycodone Screen Negative (NEGATIVE) Urine Methadone Screen Negative (NEGATIVE) Ur Barbiturates Screen Negative (NEGATIVE) U Tricyclic Antidepress Negative (NEGATIVE) Ur Phencyclidine Scrn Negative (NEGATIVE) Ur Amphetamines Screen Negative (NEGATIVE) U Methamphetamines Scrn Negative (NEGATIVE) U Benzodiazepines Scrn Negative (NEGATIVE) Urine Cocaine Screen Negative (NEGATIVE) U Cannabinoids Screen Negative (NEGATIVE) Ethanol Quant <3 mg/dL ECG Data Attestation: I personally reviewed and interpreted this ECG as follows: (EKG on my interpretation shows sinus bradycardia with a rate of 46) Discharge Plan Discharge Chief Complaint: Overdose Clinical Impression: Medication side effect Patient Disposition: Home, Self-Care Time of Disposition Decision: 00:11 Condition: Good Mode of Transportation: Private Vehicle Prescriptions / Home Meds: No Action trazodone 100 mg tablet 100 mg PO BEDTIME pantoprazole [Protonix] 40 mg tablet,delayed release (DR/EC) 40 mg PO DAILY Qty: 30 11RF buprenorphine-naloxone 8-2 mg film 1.5 film sublingual DAILY lactulose 10 gram/15 mL solution 20 g PO BID Qty: 237 0RF cyanocobalamin (vitamin B-12) 1,000 mcg/mL kit 1,000 mcg IM DAILY 3 Days Qty: 3 0RF cyanocobalamin (vitamin B-12) 1,000 mcg/mL kit 1,000 mcg IM .Weekly 28 Days Qty: 4 0RF Rx Instructions: Start one week after daily dosing is completed buspirone 10 mg tablet 10 mg PO DAILY hydroxyzine pamoate 25 mg capsule 25 mg PO Q6H melatonin 10 mg tablet 10 mg PO DAILY prazosin 1 mg capsule 1 mg PO DAILY trazodone 50 mg tablet 50 mg PO DAILY furosemide 20 mg tablet 20 mg PO Q48H sertraline 50 mg tablet 50 mg PO Q24H sertraline 25 mg tablet 25 mg PO Q24H Print Language: Maltese Instructions: Adverse Drug Reaction (ED) Referrals: Physician,Non-Staff, [Primary Care Provider] - 1 week
[2024-05-30 22:31] LABS: Bilirubin Urine NEGATIVE (NEGATIVE); Blood Urine NEGATIVE (NEGATIVE); Clarity Urine CLEAR (CLEAR); Color Urine LT. YELLOW (YELLOW); Glucose Urine UA NEGATIVE (NEGATIVE); Ketones Urine NEGATIVE (NEGATIVE); Leukocyte Esterase Urine NEGATIVE (NEGATIVE); Nitrite Urine NEGATIVE (NEGATIVE); Protein Urine NEGATIVE (NEG/TRACE); pH Urine 7.5 (5.0-9.0)
[2024-05-30 22:34] LABS: Hematocrit 36.8 % (36.0-48.0); Hemoglobin 11.9 g/dL (12.0-16.0); Immature Granulocytes Abs Auto 0.01 10^3/uL (0.00-0.03); Immature Granulocytes Pct Auto 0.3 % (0.0-0.5); Lymphocytes Absolute Auto 1.3 10^3/uL (1.2-3.8); Lymphocytes Percent Auto 32.9 % (20.5-60.0); Mean Corpuscular HGB Conc 32.3 g/dL (29.9-35.2); Mean Corpuscular Hemoglobin 29.8 pg (26.7-34.0); Mean Corpuscular Volume 92.2 fL (81.0-99.0); Mean Platelet Volume 10.6 fL (9.5-13.5); Monocytes Absolute Auto 0.2 10^3/uL (0.3-0.8); Monocytes Percent Auto 5.7 % (1.7-12.0); Neutrophils Absolute Auto 2.4 10^3/uL (1.4-6.5); Neutrophils Percent Auto 61.1 % (43.0-75.0); Platelet Count 157 10^3/uL (150-450); Red Blood Count 3.99 10^6/uL (4.20-5.40); Red Cell Distribution Width 13.1 % (11.0-15.0); White Blood Count 3.9 10^3/uL (4.0-11.0)
[2024-05-30 22:38] LABS: Bacteria Urine TRACE #/HPF (NONE SEEN); Cast Seen? NONE SEEN #/LPF (NONE SEEN); Crystals Seen? None Seen #/HPF (None Seen); Mucus Urine NONE SEEN (NONE SEEN); RBC Urine NONE SEEN #/HPF (0-2); Squamous Epithelial Cell Urine FEW #/LPF (NONE/RARE); WBC Urine 0-2 #/HPF (NONE SEEN)
[2024-05-30 22:42] LABS: HCG Qualitative NEGATIVE (NEGATIVE); Internal Control Within Normal Limits
[2024-05-30 22:46] LABS: Amphetamine Screen Urine NEGATIVE (NEGATIVE); Barbiturates Screen Urine NEGATIVE (NEGATIVE); Benzodiazepines Screen Urine NEGATIVE (NEGATIVE); Buprenorphine Screen Urine NEGATIVE (NEGATIVE); Cannabinoid Screen Urine NEGATIVE (NEGATIVE); Cocaine Screen Urine NEGATIVE (NEGATIVE); Methadone Screen Urine NEGATIVE (NEGATIVE); Methamphetamines Screen Urine NEGATIVE (NEGATIVE); Opiate Screen Urine NEGATIVE (NEGATIVE); Oxycodone Screen Urine NEGATIVE (NEGATIVE); Phencyclidine Screen Urine NEGATIVE (NEGATIVE); Tricyclic Antidepressant Urine NEGATIVE (NEGATIVE)
[2024-05-30 22:48] LABS: Amylase 62 U/L (25-115); Ethanol <3 mg/dL
[2024-05-30] MEDS: 0.9 % SODIUM CHLORIDE 1,000 ML 1000 ML IV (22:48)
[2024-05-30] MEDS: ONDANSETRON PF 4 MG/2 ML VIAL IV (22:49)
[2024-05-30 22:54] LABS: Alanine Aminotransferase 136 U/L (14-59); Albumin Globulin Ratio 1.3; Albumin Level 3.4 g/dL (3.4-5.0); Alkaline Phosphatase 105 U/L (46-116); Anion Gap 10.8; Aspartate Amino Transferase 89 U/L (15-37); BUN Creatinine Ratio 18.6; Bilirubin Direct 0.2 mg/dL (0.0-0.2); Bilirubin Total 0.5 mg/dL (0.2-1.0); Calcium 9.5 mg/dL (8.5-10.1); Carbon Dioxide 27.5 mmol/L (21.0-32.0); Chloride 111 mmol/L (98-107); Estimated GFR (African America >60 (>=60 mL/min/1.73m^2); Estimated GFR (Non-African Ame >60 (>=60 mL/min/1.73m^2); Globulin 2.6 g/dL; Glucose 105 mg/dL (74-106); Potassium 4.3 mmol/L (3.5-5.1); Sodium 145 mmol/L (136-145)
--- NOTE | 2024-05-30 22:57 | PC.NURSE ---
this patient arrives from home with her boyfriend and female friend, and she voices this patient real tired today around 3:00 pm. this patient does awake when talking to her and is able to tell me her name and birthday. the boyfriend voices she is 90 days clean this patient and her boyfriend and female friend are aware waiting on all of the test results to come back. this patient not her friend voices any concerns and this patient shows no signs of distress
[2024-05-30 23:45] VITALS: BP 109/55; PULSE 60; O2SAT 93
[2024-05-31 00:17] VITALS: BP 98/56; PULSE 62; O2SAT 94
--- NOTE | 2024-05-31 00:41 | PC.NURSE ---
i gave this patient and her boyfriend verbal and written discharge orders both voices yes to understanding these. at time of discharge this patient nor boyfriend and female friend voices no concerns and this patient shows no signs of distress
== END 2024-05-31 00:43 | disposition home or self-care (01) ==
PROVIDERS: Emergency Provider Emergency Medicine
DX: R45.1 Restlessness and agitation (principal); T50.995A Adverse effect of other drugs, medicaments and biological substances, initial encounter; F17.200 Nicotine dependence, unspecified, uncomplicated
CPT/HCPCS: 36415; 71045; 80048; 80076; 80307; 80320; 81001; 82150; 83690; 84703; 85025; 93005; 96374; 99285; J2405

== ENCOUNTER 2024-06-19 07:44 | Outpatient (RCR) | payer OTHER, SELFPAY | END 2024-06-20 08:25 | disposition home or self-care (01) | LOC: HEMC 07:44 | PROVIDERS: Visit Provider Internal Medicine Hematology & Oncology | DX: D64.9 Anemia, unspecified (principal); D51.9 Vitamin B12 deficiency anemia, unspecified; B18.9 Chronic viral hepatitis, unspecified; D69.6 Thrombocytopenia, unspecified; R74.01 Elevation of levels of liver transaminase levels; D72.819 Decreased white blood cell count, unspecified; K72.00 Acute and subacute hepatic failure without coma; B17.10 Acute hepatitis C without hepatic coma; D61.818 Other pancytopenia; R79.89 Other specified abnormal findings of blood chemistry | CPT/HCPCS: G0463 ==

== ENCOUNTER 2024-06-26 16:05 | Emergency (ER) | payer OTHER, SELFPAY ==
[2024-06-26 16:17] VITALS: BP 118/56; PULSE 66; TEMP 36.8; O2SAT 98; BMI 29.9
--- OUTSIDE RECORDS SUMMARY | 2024-06-26 16:31 | XMS_ITS | CCD ---
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 Name Role Phone None, No PCP Unavailable [...] PB [employer] Referring Unavailable SERVICES, [facility] Primary Care Unava ilable NO PCP, NO PCP Primary Care Unavailable NO PCP, NO PCP Primary Care Unavailable ELIAN RODRIGUEZ Attending Unavailable ISAIAS ADDISON Attending Unavailable MICHAEL MEJIA Primary Care Unavailable NON STAFF Primary Care Provider Unavailyuriy Morejon MD, Imluigi Attending Provider Michael Mejia MD Primary Care Provider [phone] Asaad, Imad Attending Unavailable Asaad, Imad Admitting Unavailable NON STAFF Primary Care Unavailable Asaad, Imad Attending Unavailable Asaad, Imad Admitting Unavailable iMchael Mejia Primary Care Unavailable Asaad, Imad Attending Unavailable Asaad, Imad Admitting Unavailable Michael Mejia Primary Care Unavailable Asaad, Imad Attending Unavailable Michael Mejia Primary Care Unavailable Asaad, Imad Admitting Unavailable Flip Morejon MD Attending Provider [phone] Medications Current Medications Medication Drug Class(es) Dates Sig (Normalized) Sig (Original) acetaminophen 325 mg / oxyCODONE hydrochloride 5 mg oral tablet (1 source) Opioid Agonist Start: 07-24-2021 End: 07-26-2021 Percocet 325 mg-5 mg Tab 1 tab(s), Oral, q6hr for pain for 2 day(s), 7 tab(s), Refill(s) 0, [facility]/pharmacy #[id number], 161, cm, 06/25/21 13:03:00 EST, [...] by mouth 2 times daily 0 Active Okabryps-Afn-Ku-FA ( VITAMINS PO) (5 sources) Mfqsyatk-Ais-Vz-FA ( VITAMINS PO) Take by mouth 0 [...] [Chronic viral hepatitis C] Onset: 05-03-2024 Chronic Miscellaneous mental health disorders (2 sources) Primary [...] Test Name Value Interpretation Reference Range Facility Alanine aminotransferase [En zymatic activity/volume] in Serum or PlasmaOrdered By: Imad Asaad on 06-20-2024 ALT [Catalytic activity/Vol] Alanine aminotransferase [Enzymatic activity/volume] in Serum or Plasma High 7-52 [facility] Albumin [Mass/volume] in Ser um or Plasma by Bromocresol green (BCG) dye binding methoOrdered By: Imad Asaad on 06-20-2024 Albumin BCG dye [Mass/Vol] Albumin [Mass/volume] in Serum or Plasma by Bromocresol green (BCG) dye binding metho 3.5-5.7 [facility] Alkaline phosphatase [Enzyma tic activity/volume] in Serum or PlasmaOrdered By: Imad Asaad on 06-20-2024 ALP [Catalytic activity/Vol] Alkaline phosphatase [Enzymatic activity/volume] in Serum or Plasma High 34-104 [facility] Aspartate aminotransferase [ Enzymatic activity/volume] in Serum or PlasmaOrdered By: Imad Asaad on 06-20-2024 AST [Catalytic activity/Vol] Aspartate aminotransferase [Enzymatic activity/volume] in Serum or Plasma High 13-39 [facility] Basophils Auto (Bld) [#/Vol] Ordered By: Imad Asaad on 06-20-2024 Basophils (Bld) [#/Vol] Automated basophil count 0.0-0.2 [facility] Basophils/100 WBC Auto (Bld) Ordered By: Imad Asaad on 06-20-2024 Basophils/100 WBC (Bld) Automated basophil % . [facility] Bilirubin.total [Mass/volume ] in Serum or PlasmaOrdered By: Imad Asaad on 06-20-2024 Bilirubin [Mass/Vol] Bilirubin.total [Mass/volume] in Serum or Plasma 0.3-1.0 [facility] Calcium [Mass/volume] in Ser um or PlasmaOrdered By: Imad Asa on 06-20-2024 Calcium [Mass/Vol] Calcium [Mass/volume ] in Serum or Plasma 8.6-10.3 [facility] Carbon dioxide, total [Moles /volume] in Serum or PlasmaOrdered By: Imad Asaad on 06-20-2024 CO2 [Moles/Vol] Carbon dioxide, tota l [Moles/volume] in Serum or Plasma 21.0-31.0 [facility] Chloride [Moles/volume] in S aren or PlasmaOrdered By: Imad Asaad on 06-20-2024 Chloride [Moles/Vol] Chloride [Moles/vol ume] in Serum or Plasma 98-107 [facility] Complete Blood Count Auto Di ffon 06-20-2024 Basophils (Bld) [#/Vol] 0.0 10*3/uL Normal 0.0-0.2 [facility] Comment on above: Result Comment: PERF ORMED BY: [place] [address] PATHOLOGIST SENIOR JAVA SOFTWARE ENGINEER DAMON MONROY M.D. Performed By: #### P T, CMP, CBC #### [address] Basophils/100 WBC (Bld) 0.1 % Normal . [facility] Comment on above: Performed By: #### P T, CMP, CBC #### [address] Eosinophils (Bld) [#/Vol] 0.0 10*3/uL Normal 0.0-0.45 [facility] Comment on above: Performed By: #### P T, CMP, CBC #### [place] [address] [place] Eosinophils/100 WBC (Bld) 0.0 % Normal . [facility] Comment on above: Performed By: #### P T, CMP, CBC #### [address] Erythrocyte distribution width (RBC) [Ratio] 15.0 % Normal 11.9-15.3 [facility] Comment on above: Performed By: #### P T, CMP, CBC #### [address] Hematocrit (Bld) [Volume fraction] 39.2 % Normal 34.0-46.4 [facility] Comment on above: Performed By: #### P T, CMP, CBC #### [address] Hemoglobin (Bld) [Mass/Vol] 13.2 g/dL Normal 11.8-15.4 [facility] Comment on above: Performed By: #### P T, CMP, CBC #### [address] Lymphocytes (Bld) [#/Vol] 1.7 10*3/uL Normal 1.00-4.8 [facility] Comment on above: Performed By: #### P T, CMP, CBC #### [address] Lymphocytes/100 WBC (Bld) 40.3 % Normal . [facility] Comment on above: Performed By: #### P T, CMP, CBC #### [address] MCH (RBC) [Entitic mass] 29.5 pg Normal 24.7-34.3 [facility] Comment on above: Performed By: #### P T, CMP, CBC #### [address] MCV (RBC) [Entitic vol] 87.8 fL Normal 80-100 [facility] Comment on above: Performed By: #### P T, CMP, CBC #### [address] Mean Corpuscular HGB Conc 33.6 g/dL Normal 32.0-35.0 [facility] Comment on above: Performed By: #### P T, CMP, CBC #### [address] Monocytes (Bld) [#/Vol] 0.2 10*3/uL Normal 0.0-0.8 [facility] Comment on above: Performed By: #### P T, CMP, CBC #### [address] Monocytes/100 WBC (Bld) 4.1 % Normal . [facility] Comment on above: Performed By: #### P T, CMP, CBC #### [address] Neutrophils (Bld) [#/Vol] 2.3 10*3/uL Normal 1.8-7.7 [facility] Comment on above: Performed By: #### P T, CMP, CBC #### [address] Neutrophils/100 WBC (Bld) 55.5 % Normal . [facility] Comment on above: Performed By: #### P T, CMP, CBC #### [address] NRBC% 0.2 /100{WBC} Normal 0-0.5 [facility] Comment on above: Performed By: #### P T, CMP, CBC #### [address] Platelet mean volume (Bld) [Entitic vol] 8.3 fL Normal 6.3-10.7 [facility] Comment on above: Performed By: #### P T, CMP, CBC #### [place] [address] [place] Platelets (Bld) [#/Vol] 186 10*3/uL Normal 150-450 [facility] Comment on above: Performed By: #### P T, CMP, CBC #### [place] [address] [place] RBC (Bld) [#/Vol] 4.47 10*6/uL Normal 3.60-5.00 [facility] Comment on above: Performed By: #### P T, CMP, CBC #### [place] [address] [place] WBC (Bld) [#/Vol] 4.1 10*3/uL Normal 3.8-11.6 [facility] Comment on above: Performed By: #### P T, CMP, CBC #### [address] Comprehensive Metabolic Pane elvin 06-20-2024 Albumin [Mass/Vol] 4.1 g/dL Normal 3.5-5.7 [facility] Comment on above: Performed By: #### P T, CMP, CBC #### [address] Albumin/Globulin [Mass ratio] 1.8 {ratio} Normal [facility] Comment on above: Performed By: #### P T, CMP, CBC #### [address] ALP [Catalytic activity/Vol] 111 U/L High 34-104 [facility] Comment on above: Result Comment: PERF ORMED BY: [place] [address] PATHOLOGIST SENIOR JAVA SOFTWARE ENGINEER DAMON MONROY M.D. Performed By: #### P T, CMP, CBC #### [address] ALT [Catalytic activity/Vol] 203 U/L High 7-52 [facility] Comment on above: Performed By: #### P T, CMP, CBC #### [address] Anion gap [Moles/Vol] 10.8 mmol/L Normal 6.0-15.0 [facility] Comment on above: Performed By: #### P T, CMP, CBC #### [address] AST [Catalytic activity/Vol] 149 U/L High 13-39 [facility] Comment on above: Performed By: #### P T, CMP, CBC #### [address] Bilirubin [Mass/Vol] 0.6 mg/dL Normal 0.3-1.0 [facility] Comment on above: Performed By: #### P T, CMP, CBC #### [address] Calcium [Mass/Vol] 9.9 mg/dL Normal 8.6-10.3 [facility] Comment on above: Performed By: #### P T, CMP, CBC #### [address] Chloride [Moles/Vol] 105 mmol/L Normal 98-107 [facility] Comment on above: Performed By: #### P T, CMP, CBC #### [address] CO2 [Moles/Vol] 29.5 mmol/L Normal 21.0-31.0 [facility] Comment on above: Performed By: #### P T, CMP, CBC #### [address] Creatinine [Mass/Vol] 0.76 mg/dL Normal 0.60-1.20 [facility] Comment on above: Performed By: #### P T, CMP, CBC #### [address] GFR/1.73 sq M.predicted MDRD (S/P/Bld) [Vol rate/Area] mL/min/{1.73_m2} Normal [facility] Comment on above: Performed By: #### P T, CMP, CBC #### [address] Globulin (S) [Mass/Vol] 2.3 g/dL Normal [facility] Comment on above: Performed By: #### P T, CMP, CBC #### [address] Glucose [Mass/Vol] 86 mg/dL Normal 70-100 [facility] Comment on above: Result Comment: [place] Glucose Reference Range is dependent on time and content of last meal. Glucose of more than 200 mg/dL in a nonstressed, ambulatory subject supports the diagnosis of Diabetes Mellitus. ADA recommended reference range Performed By: #### P T, CMP, CBC #### [facility] [address] [place] [address] [place] Potassium [Moles/Vol] 4.3 mmol/L Normal 3.5-5.1 [facility] Comment on above: Performed By: #### P T, CMP, CBC #### [facility] [address] [place] [address] [place] Protein [Mass/Vol] 6.4 g/dL Normal 6.4-8.9 [facility] Comment on above: Performed By: #### P T, CMP, CBC #### [facility] [address] [place] [address] [place] Sodium [Moles/Vol] 141 mmol/L Normal 136-145 [facility] Comment on above: Performed By: #### P T, CMP, CBC #### [facility] [address] [place] [address] [place] Urea nitrogen [Mass/Vol] 15 mg/dL Normal 7-25 [facility] Comment on above: Performed By: #### P T, CMP, CBC #### [facility] [address] [place] [id number] [place] Creatinine [Mass/volume] in Serum or PlasmaOrdered By: Imad Asaad on 06-20-2024 Creatinine [Mass/Vol] Creatinine [Mass/v olume] in Serum or Plasma 0.60-1.20 [facility] Eosinophils Auto (Bld) [#/Vo l]Ordered By: Imad Asaad on 06-20-2024 Eosinophils (Bld) [#/Vol] Automated eosinophil count 0.0-0.[address] [facility] Eosinophils/100 WBC Auto (Bl d)Ordered By: Imad Asaad on 06-20-2024 Eosinophils/100 WBC (Bld) Automated eosinophil % . [facility] Erythrocyte distribution wid th Auto (RBC) [Ratio]Ordered By: Imad Asaad on 06-20-2024 Erythrocyte distribution width (RBC) [Ratio] Erythrocyte distribution width [Ratio] by Automated count 11.9-15.3 [facility] Globulin Calc (S) [Mass/Vol] Ordered By: Imad Asaad on 06-20-2024 Globulin (S) [Mass/Vol] Serum globulin measurement by calculation (mass/volume) [facility] Glucose [Mass/volume] in Ser um or PlasmaOrdered By: ad [facility] 06-20-2024 Glucose [Mass/Vol] Glucose [Mass/volume ] in Serum or Plasma 70-100 [facility] Comment on above: ADA recommended refe rence rangeRandom Glucose Reference Range is dependent on time and content of last meal. Glucose of more than 200 mg/dL in a nonstressed, ambulatory subject supports the diagnosis of Diabetes Mellitus. Hematocrit Auto (Bld) [Volum e fraction]Ordered By: [facility] 06-20-2024 Hematocrit (Bld) [Volume fraction] Hematocrit [Volume Fraction] of Blood by Automated count 34.0-46.4 [facility] Hemoglobin [Mass/volume] in BloodOrdered By: [facility] 06-20-2024 Hemoglobin (Bld) [Mass/Vol] Hemoglobin [Mass/volume] in Blood 11.8-15.4 [facility] INR in Platelet poor plasma by Coagulation assayOrdered By: ad [facility] 06-20-2024 INR Coag (PPP) [Relative time] INR in Platelet poor plasma by Coagulation assay [facility] Comment on above: INR Therapeutic Rang e A) Pre- and Peroperative OAT started two weeks before surgery. NOT HIP SURGERY: 1.5 - 2.5 HIP SURGERY: 2 - 3B) Primary and secondary prevention of venous THROMBOSIS: 2 - 3C) Active venous thrombosis, pulmonary embolismand prevention of recurrent venous thrombosis: 2 - 3D) Prevention of arterial thromboembolismincluding patients with mechanical heart valves: 3 - 4.5 Leukocytes [#/volume] correc mina for nucleated erythrocytes in Blood by Automated counOrdered By: ad [facility] 06-20-2024 WBC corrected for nucl RBC Auto (Bld) [#/Vol] Leukocytes [#/volume] corrected for nucleated erythrocytes in Blood by Automated coun 3.8-11.6 [facility] Lymphocytes Auto (Bld) [#/Vo l]Ordered By: ad [facility] 06-20-2024 Lymphocytes (Bld) [#/Vol] Lymphocytes [#/volume] in Blood by Automated count 1.00-4.8 [facility] Lymphocytes/100 WBC Auto (Bl d)Ordered By: Imad Asaad on 06-20-2024 Lymphocytes/100 WBC (Bld) Lymphocytes/100 leukocytes in Blood by Automated count . [facility] MCH Auto (RBC) [Entitic mass ]Ordered By: Imad Asaad on 06-20-2024 MCH (RBC) [Entitic mass] MCH [Entitic mass] by Automated count 24.7-34.3 [facility] MCHC Auto (RBC) [Mass/Vol]Or dered By: Imad Asaad on 06-20-2024 MCHC (RBC) [Mass/Vol] MCHC [Mass/volume] by Automated count 32.0-35.0 [facility] MCV Auto (RBC) [Entitic vol] Ordered By: Imad Asaad on 06-20-2024 MCV (RBC) [Entitic vol] MCV [Entitic volume] by Automated count 80-100 [facility] Monocytes Auto (Bld) [#/Vol] Ordered By: Imad Asaad on 06-20-2024 Monocytes (Bld) [#/Vol] Automated blood monocyte count 0.0-0.8 [facility] Monocytes/100 WBC Auto (Bld) Ordered By: Imad Asaad on 06-20-2024 Monocytes/100 WBC (Bld) Automated monocyte % . [facility] Neutrophils Auto (Bld) [#/Vo l]Ordered By: Imad Asaad on 06-20-2024 Neutrophils (Bld) [#/Vol] Neutrophils [#/volume] in Blood by Automated count 1.8-7.7 [facility] Neutrophils/100 WBC Auto (Bl d)Ordered By: Imad Asaad on 06-20-2024 Neutrophils/100 WBC (Bld) Automated neutrophil % . [facility] No Panel InformationOrdered By: Imad Asaad on 06-20-2024 Estimated GFR (CKD-EPI) > 60.0 mL/Min [facility] Creatinine Clearance (Chem N/A [facility] Nucleated erythrocytes [Pres ence] in Blood by Automated countOrdered By: Imad Asaad on 06-20-2024 Nucleated RBC Auto Ql (Bld) Nucleated erythrocytes [Presence] in Blood by Automated count 0-0.5 [facility] Platelet mean volume Auto (B ld) [Entitic vol]Ordered By: Imad Asaad on 06-20-2024 Platelet mean volume (Bld) [Entitic vol] Platelet mean volume [Entitic volume] in Blood by Automated count 6.3-10.7 [facility] Platelets Auto (Bld) [#/Vol] Ordered By: Imad Asaad on 06-20-2024 Platelets (Bld) [#/Vol] Platelets [#/volume] in Blood by Automated count 150-450 [facility] Potassium [Moles/volume] in Serum or PlasmaOrdered By: ad Asaad on 06-20-2024 Potassium [Moles/Vol] Potassium [Moles/v olume] in Serum or Plasma 3.5-5.1 [facility] Protein [Mass/volume] in Ser um or PlasmaOrdered By: ad Asaad on 06-20-2024 Protein [Mass/Vol] Protein [Mass/volume ] in Serum or Plasma 6.4-8.9 [facility] Prothrombin Time INRon 06-20 INR Coag (PPP) [Relative time] 1.0 {INR} Normal [facility] Comment on above: Result Comment: INR Therapeutic Range A) Pre- and Peroperative OAT started two weeks before surgery. NOT HIP SURGERY: 1.5 - 2.5 HIP SURGERY: 2 - 3 B) Primary and secondary prevention of venous THROMBOSIS: 2 - 3 C) Active venous thrombosis, pulmonary embolism and prevention of recurrent venous thrombosis: 2 - 3 D) Prevention of arterial thromboembolism including patients with mechanical heart valves: 3 - 4.5 PERFORMED BY: [place] [address] PATHOLOGIST SENIOR JAVA SOFTWARE ENGINEER DAMON MONROY M.D. Performed By: #### P T, CMP, CBC #### [address] PT Coag (PPP) [Time] 11.3 s Normal 9.0-12.9 [facility] Comment on above: Result Comment: A he matocrit value greater than 55% may lead to inaccurate results in coagulation testing. Patients having hematocrit values >55% require a special collection tube for coagulation studies. Please contact the laboratory at [phone] for redraw instructions. Performed By: #### P T, CMP, CBC #### [facility] [address] [place] [id number] [facility] Prothrombin time (PT)Ordered By: luigi Morejon on 06-20-2024 PT Coag (PPP) [Time] Prothrombin time (PT) 9.0- 12.9 [facility] Comment on above: A hematocrit value g reater than 55% may lead to inaccurate results in coagulation testing. Patients having hematocrit values >55% require a special collection tube for coagulation studies. Please contact the laboratory at [phone] for redraw instructions. RBC Auto (Bld) [#/Vol]Ordere d By: luigi Jaquez on 06-20-2024 RBC (Bld) [#/Vol] Erythrocytes [#/volu me] in Blood by Automated count 3.60-5.00 [facility] Serum or plasma albumin/glob ulin mass ratioOrdered By: ad [facility] on 06-20-2024 Albumin/Globulin [Mass ratio] Serum or plasma albumin/globulin mass ratio [facility] Serum or plasma anion gap de terminationOrdered By: [facility] on 06-20-2024 Anion gap [Moles/Vol] Serum or plasma an ion gap determination 6.0-15.0 [facility] Sodium [Moles/volume] in Ser um or PlasmaOrdered By: [facility] on 06-20-2024 Sodium [Moles/Vol] Sodium [Moles/volume ] in Serum or Plasma 136-145 [facility] Urea nitrogen [Mass/volume] in Serum or PlasmaOrdered By: ad Asaad on 06-20-2024 Urea nitrogen [Mass/Vol] Urea nitrogen [Mass/volume] in Serum or Plasma 7-25 [facility] WBC Auto (Bld) [#/Vol]Ordere d By: ad Asaad on 06-20-2024 WBC (Bld) [#/Vol] Leukocytes [#/volume ] in Blood by Automated count 3.8-11.6 [facility] 04-19-2024 liver [facility] [address] [place] [id number] Ultrasound Report Signed Patient: Sangeeta Nicholson MR#: [id number] : 1990 Acct:[id number] Age/Sex: 34 / F ADM Date: 04/19/24 Loc: Room: Type: [facility] Attending Dr: Flip Morejon MD Ordering Provider: [...] Kim Jr., D.OElfego04/19/2024 2:35 PM Dictation Location: [place] [address] Tech: Nahed Valero Transcribed By: RAMIN 04/19/24 1435 Dictated By: Alexis Kim Jr, DO 04/19/24 1435 Signed By: 04/19/24 1435 Normal [facility] CBC AND AUTO DIFFon 03-12-20 ABSOLUTE BASOPHIL 0.0 X10E9/L Normal 0.0-0.2 [facility] Comment on above: Performed By: #### C BRUCE, 42682-7, CBCA, 3039-07 #### [facility] ([id number]) [address] [place] [id number] ABSOLUTE NEUTROPHIL 2.8 X10E9/L Normal 1.5-6.6 [facility] Comment on above: Performed By: #### C BRUCE, 60300-0, CBCA, 3039-07 #### [facility] ([id number]) [address] [place] [address]853 Basophils/100 WBC (Bld) 0.0 % Normal [facility] Comment on above: Performed By: #### C BRUCE, , CBCA, 1987-08, 3039-07 #### [facility] ([id number]) [address] [place] [address] Eosinophils (Bld) [#/Vol] 0.0 10*3/uL Normal 0.0-0.4 [facility] Comment on above: Performed By: #### C BRUCE, , CBCA, 1987-08, 3039-07 #### [facility] ([id number]) [address] [place] [address] Eosinophils/100 WBC (Bld) 0.0 % Normal [facility] Comment on above: Performed By: #### Ethan BARRERA, , CBCA, 1987-08, 3039-07 #### [facility] ([id number]) [address] [place] [address] Erythrocyte distribution width (RBC) [Ratio] 16.6 % High 11.5-15.0 [facility] Comment on above: Performed By: #### Ethan BARRERA, , CBCA, 1987-08, 3039-07 #### [facility] ([id number]) [address] [place] [address]9070 Hematocrit (Bld) [Volume fraction] 38.7 % Normal 35-47 [facility] Comment on above: Performed By: #### Ethan BARRERA, , CBCA, 1987-08, 3039-07 #### [facility] ([id number]) [address] [place] [address]88 Hemoglobin (Bld) [Mass/Vol] 13.1 g/dL Normal 11.7-15.5 [facility] Comment on above: Performed By: #### C BRUCE, , CBCA, 1987-08, 3039-07 #### [facility] ([id number]) [address] [place] [address]676 Lymphocytes (Bld) [#/Vol] 1.3 10*3/uL Normal 1.0-3.5 [facility] Comment on above: Performed By: #### Ethan BARRERA, , CBCA, 1987-08, 3039-07 #### [facility] ([id number]) [address] [place] [address] 70368 Lymphocytes/100 WBC (Bld) 30.7 % Normal [facility] Comment on above: Performed By: #### Ethan BARRERA, , CBCA, 1987-08, 3039-07 #### [facility] ([id number]) [address] [place] [address] 86464 MCH (RBC) [Entitic mass] 30.6 pg Normal 27-34 [facility] Comment on above: Performed By: #### Ethan BARRERA, , CBCA, 1987-08, 3039-07 #### [facility] ([id number]) [address] [place] [address]55 MCHC (RBC) [Mass/Vol] 33.8 g/dL Normal 32-[address] [facility] Comment on above: Performed By: #### Ethan BARRERA, , CBCA, 1987-08, 3039-07 #### [facility] ([id number]) [address] [place] [address] MCV (RBC) [Entitic vol] 91 fL Normal 80-100 [facility] Comment on above: Performed By: #### Ethan BARRERA, , CBCA, 1987-08, 3039-07 #### [facility] ([id number]) [address] [place] [address] Monocytes (Bld) [#/Vol] 0.2 10*3/uL Normal 0-0.9 [facility] Comment on above: Performed By: #### C BRUCE, , CBCA, 1987-08, 3039-07 #### [facility] ([id number]) [address] [place] [address]84 Monocytes/100 WBC (Bld) 4.5 % Normal [facility] Comment on above: Performed By: #### Ethan BARRERA, , CBCA, 1987-08, 3039-07 #### [facility] ([id number]) [address] [place] [address] 97653 Neutrophils/100 WBC (Bld) 64.8 % Normal [facility] Comment on above: Performed By: #### Ethan BARRERA, , CBCA, 1987-08, 3039-07 #### [facility] ([id number]) [address] [place] [address] Platelet mean volume (Bld) [Entitic vol] 8.8 fL Normal 7-12 [facility] Comment on above: Performed By: #### Ethan BARRERA, , CBCA, 1987-08, 3039-07 #### [facility] ([id number]) [address] [place] [address]20 Platelets (Bld) [#/Vol] 146 10*3/uL Low 150-450 [facility] Comment on above: Performed By: #### Ethan BARRERA, , CBCA, 1987-08, 3039-07 #### [facility] ([id number]) [address] [place] [address] 90525 RBC COUNT 4.28 X10E12/L Normal 3.80-5.20 [facility] Comment on above: Performed By: #### Ethan BARRERA, , CBCA, 1987-08, 3039-07 #### [facility] ([id number]) [address] [place] [address] WBC (Bld) [#/Vol] 4.3 10*3/uL Normal 4.0-11.0 [facility] Comment on above: Performed By: #### C BRUCE, , CBCA, 1987-08, 3039-07 #### [facility] ([id number]) [address] [place] [address] 95680 COMPREHENSIVE METABOLIC PANE Elvin 03-12-2024 Albumin [Mass/Vol] 3.5 g/dL Normal 3.2-5.3 [facility] Comment on above: Performed By: #### C BRUCE, , CBCA, 1987-08, 3039-07 #### [facility] ([id number]) [address] [place] [address] 20008 ALP [Catalytic activity/Vol] 73 U/L Normal 39-130 [facility] Comment on above: Performed By: #### C BRUCE, , CBCA, 1987-08, 3039-07 #### [facility] ([id number]) [address] [place] [address] 21581 ALT [Catalytic activity/Vol] 56 U/L High 0-31 [facility] Comment on above: Performed By: #### C BRUCE, , CBCA, 1987-08, 3039-07 #### [facility] ([id number]) [address] [place] [address] 01578 Anion gap [Moles/Vol] 5 mmol/L Normal 5-[address] [facility] Comment on above: Performed By: #### C BRUCE, , CBCA, 1987-08, 3039-07 #### [facility] ([id number]) [address] [place] [address] 89219 AST [Catalytic activity/Vol] 50 U/L High 0-41 [facility] Comment on above: Performed By: #### C BRUCE, , CBCA, 1987-08, 3039-07 #### [facility] ([id number]) [address] [place] [address] 16458 Bilirubin [Mass/Vol] 0.5 mg/dL Normal 0.3-1.2 [facility] Comment on above: Performed By: #### Ethan BARRERA, , CBCA, 1987-08, 3039-07 #### [facility] ([id number]) [address] [place] [address] 30311 Calcium [Mass/Vol] 9.7 mg/dL Normal 8.5-10.5 [facility] Comment on above: Performed By: #### C BRUCE, , CBCA, 1987-08, 3039-07 #### [facility] ([id number]) [address] [place] [address] 40600 Chloride [Moles/Vol] 109 mmol/L Normal 98-109 [facility] Comment on above: Performed By: #### C BRUCE, , CBCA, 1987-08, 3039-07 #### [facility] ([id number]) [address] [place] [address] 18916 CO2 [Moles/Vol] 25 mmol/L Normal 22-32 [facility] Comment on above: Performed By: #### Ethan BARRERA, , CBCA, 1987-08, 3039-07 #### [facility] ([id number]) [address] [place] [address] 15617 Creatinine [Mass/Vol] 0.63 mg/dL Normal 0.40-1.[address] [facility] Comment on above: Result Comment: METH OD TRACEABLE TO IDMS STANDARD Performed By: #### C BRUCE, , CBCA, 1987-08, 3039-07 #### [facility] ([id number]) [address] [place] [address] eGFR (CKD-EPI) NON-RACE DEPENDENT >90 Normal >59 [facility] Comment on above: Result Comment: Reported eGFR is based on the CKD-EPI 2020 equation that does not use a race coefficient. Performed By: #### C BRUCE, , CBCA, 1987-08, 3039-07 #### [facility] ([id number]) [address] [place] [address] 56758 Glucose [Mass/Vol] 103 mg/dL High 65-99 [facility] Comment on above: Performed By: #### C BRUCE, , CBCA, 1987-08, 3039-07 #### [facility] ([id number]) [address] [place] [address] 48689 Potassium [Moles/Vol] 4.4 mmol/L Normal 3.5-5.[address] [facility] Comment on above: Performed By: #### C BRUCE, , CBCA, 1987-08, 3039-07 #### [facility] ([id number]) [address] [place] [address] 54897 Protein [Mass/Vol] 5.6 g/dL Low 6.0-8.0 [facility] Comment on above: Performed By: #### C BRUCE, , CBCMay, 1987-08, 3039-07 #### [facility] ([id number]) [address] [place] [address] 81514 Sodium [Moles/Vol] 139 mmol/L Normal 134-146 [facility] Comment on above: Performed By: #### C BRUCE, , CBCA, 1987-08, 3039-07 #### [facility] ([id number]) [address] [place] [address] 17792 Urea nitrogen [Mass/Vol] 18 mg/dL Normal 5-23 [facility] Comment on above: Performed By: #### C BRUCE, , CBCA, 1987-08, 3039-07 #### [facility] ([id number]) [address] [place] [address] 73583 DRUG SCREEN, URINEon 024 AMPHETAMINE/METHAMP Negative Normal NEG [facility] Comment on above: Result Comment: AMPH /METH screening cut off = 1000 ng/mL Performed By: #### C BRUCE, , CBCA, 1987-08, 3039-07 #### [facility] ([id number]) [address] [place] [address] 58224 BARBITURATES Negative Normal NEG [facility] Comment on above: Result Comment: Ana iturates screening cut off value = 200 ng/mL Performed By: #### C BRUCE, , CBCA, 1987-08, 3039-07 #### [facility] ([id number]) [address] [place] [address] 73952 BENZODIAZEPINES Negative Normal [facility] Comment on above: Result Comment: Jeramie odiazepines screening cut off value = 200 ng/mL Performed By: #### C BRUCE, , CBCA, 1987-08, 3039-07 #### [facility] ([id number]) [address] [place] [address] 14696 CANNABINOIDS Positive Abnormal NEG [facility] Comment on above: Result Comment: Conf irmation available upon request. Cannabinoids/THC screening cut off value = 50 ng/mL Performed By: #### C BRUCE, , CBCA, 1987-08, 3039-07 #### [facility] ([id number]) [address] [place] [address] 20529 COCAINE METABOLITE Negative Normal NEG [facility] Comment on above: Result Comment: Coca ine screening cut off value = 300 ng/mL Performed By: #### C BRUCE, , CBCA, 1987-08, 3039-07 #### [facility] ([id number]) [address] [place] [address] 06213 ECSTASY Negative Normal NEG [facility] Comment on above: Result Comment: Ecst asy screening cut off value = 500 ng/mL This report is intended for use in clinical monitoring or management of patients. Performed By: #### C BRUCE, , CBCA, 1987-08, 3039-07 #### [facility] ([id number]) [address] [place] [address] 83911 METHADONE Negative Normal NEG [facility] Comment on above: Result Comment: Meth adone screening cut off value = 300 ng/mL. Performed By: #### C BRUCE, , CBCA, 1987-08, 3039-07 #### [facility] ([id number]) [address] [place] [address] 53892 OPIATES Negative Normal NEG [facility] Comment on above: Result Comment: Opia chalo screening cut off value = 300 ng/mL NOTE: This test is used for the detection of codeine, hydrocodone (>1000 ng/mL), morphine and hydromorphone (>900 ng/mL) in urine. Performed By: #### C BRUCE, , CBCA, 1987-08, 3039-07 #### [facility] ([id number]) [address] [place] [address] [place] [address] OXYCODONE Negative Normal NEG [facility] Comment on above: Result Comment: Oxyc odone screening cut off value = 300 ng/mL NOTE: This test is used for the detection of oxycodone and oxymorphone in urine. Performed By: #### C BRUCE, , CBCA, 3039-07 #### [facility] ([id number]) [address] [place] [address] [place] [address] PHENCYCLIDINE Negative Normal NEG [facility] Comment on above: Result Comment: Phen cyclidine screening cut off value = 25 ng/mL Performed By: #### C BRUCE, , CBCA, 1987-08, 3039-07 #### [facility] ([id number]) [address] [place] [address] 86051 ETHANOLon 03-12-2024 Ethanol [Mass/Vol] mg/dL Normal 0.00-0.08 [facility] Comment on above: Result Comment: This report is intended for use in clinical monitoring or management of patients. Performed By: #### C BRUCE, , CBCA, 1987-08, 3039-07 #### [facility] ([id number]) [address] [place] [address] 93643 HCG ( test) Ql (U)o n 03-12-2024 Beta HCG ( test) Ql (U) Negative Normal NEG [facility] Comment on above: Performed By: #### Ethan BARRERA, , CBCA, 1987-08, 3039-07 #### [facility] ([id number]) [address] [place] [address] 30963 URN MACROSCOPIC NURon 2023 BILIRUBIN ERA Negative Normal NEG [facility] Comment on above: Performed By: #### C BRUCE, , CBCA, 1987-08, 3039-07 #### [facility] ([id number]) [address] [place] [address] 08433 BLOOD/HGB ERA Negative Normal NEG [facility] Comment on above: Performed By: #### C BRUCE, , CBCA, 1987-08, 3039-07 #### [facility] ([id number]) [address] [place] [address] 13171 GLUCOSE ERA Negative Normal NEG [facility] Comment on above: Performed By: #### C BRUCE, , CBCA, 1987-08, 3039-07 #### [facility] ([id number]) [address] [place] [address] 81782 KETONES ERA Negative Normal NEG [facility] Comment on above: Performed By: #### C BRUCE, , CBCA, 1987-08, 3039-07 #### [facility] ([id number]) [address] [place] [address] 33758 LEUKOCYTE ESTERASE ERA Negative Normal [facility]G [facility] Comment on above: Performed By: #### C BRUCE, , CBCA, 1987-08, 3039-07 #### [facility] ([id number]) [address] [place] [address] 15388 NITRITE ERA Positive Abnormal NEG [facility] Comment on above: Performed By: #### C BRUCE, , CBCA, 1987-08, 3039-07 #### [facility] ([id number]) [address] [place] [address] 69939 PH ERA 7.5 Normal 5.0-8.5 [facility] Comment on above: Performed By: #### C BRUCE, , CBCA, 1987-08, 3039-07 #### [facility] ([id number]) [address] [place] [address] 36763 PROTEIN ERA Negative Normal NEG [facility] Comment on above: Performed By: #### C BRUCE, , CBCA, 1987-08, 3039-07 #### [facility] ([id number]) [address] [place] [address] 02433 SPECIFIC GRAVITY ERA 1.020 Normal 1.003-1.[address] [facility] Comment on above: Performed By: #### C BRUCE, , CBCA, 1987-08, 3039-07 #### [facility] ([id number]) [address] [place] [address] 51257 UROBILINOGEN ERA 2.0 eu/dL High <1.1 [facility] Comment on above: Performed By: #### [place], [address]-5, CBCA, 1988-5, 3040-3 #### [facility] ([id number]) [address] [place] [address], [place] [address] Diagnostic impression interp retation by molecular genetics method narrativeOrdered By: Flip Morejon on 02-21-2024 Diagnostic impression Molgen Willi (Unsp spec) [Interp] Diagnostic impression [Interpretation] in Specimen Narrative . [facility] Comment on above: Positive HCV antibod y screen with the presence of HCV RNAis consistent with active infection.Performed at: [employer] [address] [id number] Director: Jeff Pitt PhD, Phone: [phone] at: [facility] [id number] Director: Vernon Church MD, Phone: [phone] Hep C Ab wRfx to Qnt PCRon 1 HCV Log10 6.708 Normal . [facility] Comment on above: Result Comment: Resu lt Units: log10 IU/mL Performed By: #### H CV RNA DIAG, HBSAB, HAABT, HCV RX PCR, HBSAG, HBCAB #### [facility] , Hepatitis C Quantitation [id number] Normal . [facility] Comment on above: Performed By: #### H CV RNA DIAG, HBSAB, HAABT, HCV RX PCR, HBSAG, HBCAB #### [facility] , Hepatitis C Virus Antibody Reactive Critically abnormal Non Reactive [facility] Comment on above: Performed By: #### H CV RNA DIAG, HBSAB, HAABT, HCV RX PCR, HBSAG, HBCAB #### [facility] , Interpretation Comment Normal . [facility] Comment on above: Result Comment: Posi tive HCV antibody screen with the presence of HCV RNA is consistent with active infection. Performed at: [employer] [address] [place], [place] [id number] Line Lead: Jeff Pitt PhD, Phone: [phone] Performed at: [facility] [place] [address] [place], [place] [id number] Line Lead: Vernon Church MD, Phone: [phone] Performed By: #### H CV RNA DIAG, HBSAB, HAABT, HCV RX PCR, HBSAG, HBCAB #### [facility] , Hep C RNA Diagnosison 2023 HCV RNA log10, Confirm 6.805 Normal . [facility] Comment on above: Result Comment: Resu lt Units: log10 IU/mL PERFORMED BY: [facility] [place] [address] PATHOLOGIST SENIOR JAVA SOFTWARE ENGINEER PALMIRA GLEZ M.D. Performed By: #### H CV RNA DIAG, HBSAB, HAABT, HCV RX PCR, HBSAG, HBCAB #### [facility] , HCV RNA, Quant, Confirm [id number] Normal . [facility] Comment on above: Result Comment: HCV RNA detected HCV RNA viral loads >/= 25 IU/mL indicate current HCV infection. Performed By: #### H CV RNA DIAG, HBSAB, HAABT, HCV RX PCR, HBSAG, HBCAB #### [facility] , HCV RNA, Quantitation See Final Results Normal . [facility] Comment on above: Performed By: #### H CV RNA DIAG, HBSAB, HAABT, HCV RX PCR, HBSAG, HBCAB #### [facility] , Test Information: Comment Normal . [facility] Comment on above: Result Comment: The quantitative range of this assay is 15 IU/mL to 100 million IU/mL. Performed at: - [facility] [address] [id number] Line Lead: Vernon Church MD, Phone: [phone] Performed By: #### H CV RNA DIAG, HBSAB, HAABT, HCV RX PCR, HBSAG, HBCAB #### [facility] , Result Comment: The quantitative range of this assay is 15 IU/mL to 100 million IU/mL. Hepatitis A Antibody Totalon 02-21-2024 Hepatitis A Antibody Total Negative Normal Negative [facility] Comment on above: Result Comment: [...] total antibody results to IgM (e.g., panel #[id number] HAV Antibody w/ Rfx). Performed at: [address] [id number] Line Lead: Jeff Pitt PhD, Phone: [phone] Performed By: #### H CV RNA DIAG, HBSAB, HAABT, HCV RX PCR, HBSAG, HBCAB #### [facility] , Hepatitis A virus Ab [Presen ce] in Serum by ImmunoassayOrdered By: Flip Morejon on 02-21-2024 HAV Ab IA Ql (S) Hepatitis A virus Ab [Presence] in Serum by Immunoassay Negative [facility] Comment on above: Comment: The HAV tot [...] HAVtotal antibody results to IgM (e.g., panel #[id number] HAVAntibody w/ Rfx).Performed at: [address] [id number] Director: Jeff Pitt PhD, Phone: [phone] Hepatitis B Core Antibodyon 02-21-2024 Hepatitis B Core Antibody Positive Critically abnormal Negative [facility] Comment on above: Performed By: #### H CV RNA DIAG, HBSAB, HAABT, HCV RX PCR, HBSAG, HBCAB #### [facility] , Hepatitis B Surface Antibody on 02-21-2024 Hepatitis B Surface Antibody Reactive Normal . [facility] Comment on above: Result Comment: Non Reactive: Not immune to HBV infection. Equivocal: Unable to determine if anti-HBs is present at levels consistent with immunity. Reactive: Anti-HBs concentration detected at greater than 10 mIU/mL. Individual is considered to be immune to infection with HBV. Performed By: #### H CV RNA DIAG, HBSAB, HAABT, HCV RX PCR, HBSAG, HBCAB #### [facility] , Hepatitis B Surface Antigeno n 02-21-2024 HBsAg Screen Negative Normal Negative [facility] Comment on above: Result Comment: PERF ORMED BY: [facility] [address] [place] [address] PATHOLOGIST SENIOR JAVA SOFTWARE ENGINEER PALMIRA GLEZ M.D. Performed By: #### H CV RNA DIAG, HBSAB, HAABT, HCV RX PCR, HBSAG, HBCAB #### [facility] , Hepatitis B virus core antib geovany assayOrdered By: Flip Morejon on 02-21-2024 Hepatitis B Core Total Antibody Positive Abnormal Negative [facility] Hepatitis C virus IgG Ab [Pr esence] in Serum or Plasma by ImmunoassayOrdered By: Flip Morejon on 02-21-2024 HCV IgG IA Ql Hepatitis C virus Ig G Ab [Presence] in Serum or Plasma by Immunoassay Abnormal Non Reactive [facility] Hepatitis C virus RNA [Units /volume] (viral load) in Serum or Plasma by BETZAIDA with probOrdered By: Flip Morejon on 02-21-2024 HCV RNA BETZAIDA+probe Qn Hepatitis C virus R NA [Units/volume] (viral load) in Serum or Plasma by BETZAIDA with prob . [facility] Comment on above: HCV RNA detectedHCV RNA viral loads >/= 25 IU/mL indicate current HCVinfection. Hepatitis C virus RNA [log u nits/volume] (viral load) in Serum or Plasma by BETZAIDA withOrdered By: Flip Morejon on 02-21-2024 HCV RNA BETZAIDA+probe [Log units/Vol] Hepatitis C virus RNA [log units/volume] (viral load) in Serum or Plasma by BETZAIDA with . [facility] Comment on above: Result Units: log10 IU/mL No Panel InformationOrdered By: Flip Morejon on 02-21-2024 Hepatitis C RNA Qnt (PCR) Test Info Comment . [facility] Comment on above: The quantitative ran ge of this assay is 15 IU/mL to 100million IU/mL. Hepatitis Comment Comment . [facility] Comment on above: The quantitative ran ge of this assay is 15 IU/mL to 100million IU/mL.Performed at: [facility] [address] [id number] Director: Vernon Church MD, Phone: [phone] Serum hepatitis B virus surf kelsey antibody detectionOrdered By: Flip Morejon on 02-21-2024 HBV surface Ab Ql (S) Hepatitis B virus surface Ab [Presence] in Serum . [facility] Comment on above: Non Reactive: Not im [...] in Serum or Plasma by Immunoassay Negative [facility] Serum or plasma hepatitis C virus genotype identification by probe and target amplifiOrdered By: Flip Morejon on 02-21-2024 HCV genotype BETZAIDA+probe Nom HCV genotyping ser/plas amplified probe . [facility] Comment on above: This test was develo ped and its performance characteristicsdetermined by [employer]. It has not been cleared orapproved by the Food and Drug Administration.Performed at: [facility] [address] [id number] Director: Vernon Church MD, Phone: [phone] PAP [id number] 02-15-2024 Cytology report Cyto stain Doc (Cvx/Vag) Note Invalid Interpretation Code [facility] Comment on above: Result Comment: TEST S RESULT FLAG UNITS REF RANGE LAB Clinician Provided Cytology Information Source.............Cervix No. of containers..01 ThinPrep Vial DIAGNOSIS: 01 NEGATIVE FOR INTRAEPITHELIAL LESION OR MALIGNANCY. Specimen adequacy: 01 Satisfactory for evaluation. Endocervical and/or squamous metaplastic cells (endocervical component) are present. Performed by: 01 Colette Clark, Unit Support Representative (ASCP) . 01 Note: Note 01 The Pap [...] <-Panic Low,>-Panic High,A-Abnormal,AA-Critical Abnormal Performed at: [address] [id number] Ragini Lundberg MD, Performed By: #### 3 [id number] #### [facility] [address] [place] [address] HPV 16+18+31+33+35+39+45+5 1+52+56+58+59+66+68 DNA Probe+sig amp Ql (Cvx) Negative Invalid Interpretation Code Negative [facility] Comment on above: Result Comment: This nucleic acid amplification test detects fourteen high-risk HPV types (16,18,31,33,35,39,45,51,52,56,58,59,66,68) without differentiation. Performed at: [facility] [address] [place], [place] [id number] MD Tamika Eid Performed at: =G [facility] [address] [place], [place] [id number] MD Tamika Eid Performed By: #### 3 [id number] #### [facility] [address] [place] [address] PAP [id number] 02-10-2024 Collection Technique BRUSH-SPATULA Normal F [facility] Comment on above: Performed By: #### 3 [id number] #### [facility] [address] [place] [address] Gynecological Body Site CERVIX Normal [facility] Comment on above: Performed By: #### 3 [id number] #### [facility] [address] [place] [address] CBC AND AUTO DIFFon 01-14-20 24 ABSOLUTE BASOPHIL 0.0 X10E9/L Normal 0.0-0.2 [facility] Comment on above: Performed By: #### A HP #### [facility] ([id number]) [address] [place] [address], [address] [place] [address] #### 66751-5 #### [facility] ([id number]) [address] [place] [address] 03915 ABSOLUTE NEUTROPHIL 1.5 X10E9/L Normal 1.5-6.6 [facility] Comment on above: Performed By: #### A HP #### [facility] ([id number]) [address] [place] [address], [address] [place] [address] #### 93065-6 #### [facility] ([id number]) [address] [place] [address] 78107 Basophils/100 WBC (Bld) 0.0 % Normal [facility] Comment on above: Performed By: #### A HP #### [facility] ([id number]) [address], [address] [place] [address] #### 75051-8 #### [facility] ([id number]) [address] [place] [address] 81077 Eosinophils (Bld) [#/Vol] 0.0 10*3/uL Normal 0.0-0.4 [facility] Comment on above: Performed By: #### A HP #### [facility] ([id number]) [address] [facility], [address] [place] [address] #### 73119-5 #### [facility] ([id number]) [address] [place] [address] 44169 Eosinophils/100 WBC (Bld) 0.0 % Normal [facility] Comment on above: Performed By: #### A HP #### [facility] ([id number]) [address] [facility], [address] [place] [address] #### 90154-2 #### [facility] ([id number]) [address] [place] [address] 25074 Erythrocyte distribution width (RBC) [Ratio] 14.1 % Normal 11.5-15.0 [facility] Comment on above: Performed By: #### A HP #### [facility] ([id number]) [address], [address] [place] [address] #### 45286-0 #### [facility] ([id number]) [address] [place] [address] 67687 Hematocrit (Bld) [Volume fraction] 37.3 % Normal 35-47 [facility] Comment on above: Performed By: #### A HP #### [facility] ([id number]) [address] [facility], [address] [place] [address] #### 67644-5 #### [facility] ([id number]) [address] [place] [address] 36906 Hemoglobin (Bld) [Mass/Vol] 12.6 g/dL Normal 11.7-15.5 [facility] Comment on above: Performed By: #### A HP #### [facility] ([id number]) [address], [address] [place] [address] #### 63826-4 #### [facility] ([id number]) [address] [place] [address] 59246 Lymphocytes (Bld) [#/Vol] 1.2 10*3/uL Normal 1.0-3.5 [facility] Comment on above: Performed By: #### A HP #### [facility] ([id number]) [address], [address] [place] [address] #### 76767-6 #### [facility] ([id number]) [address] [place] [address] 30014 Lymphocytes/100 WBC (Bld) 41.9 % Normal [facility] Comment on above: Performed By: #### A HP #### [facility] ([id number]) [address], [address] [place] [address] #### 48455-6 #### [facility] ([id number]) [address] [place] [address] 69654 MCH (RBC) [Entitic mass] 30.1 pg Normal 27-34 [facility] Comment on above: Performed By: #### A HP #### [facility] ([id number]) [address], [address] [place] [address] #### 78493-6 #### [facility] ([id number]) [address] [place] [address] 55492 MCHC (RBC) [Mass/Vol] 33.7 g/dL Normal 32-[address] [facility] Comment on above: Performed By: #### A HP #### [facility] ([id number]) [address], [address] [place] [address] #### 88316-0 #### [facility] ([id number]) [address] [place] [address] 12839 MCV (RBC) [Entitic vol] 90 fL Normal 80-100 [facility] Comment on above: Performed By: #### A HP #### [facility] ([id number]) [address], [address] [place] [address] #### 05513-1 #### [facility] ([id number]) [address] [place] [address] 78905 Monocytes (Bld) [#/Vol] 0.2 10*3/uL Normal 0-0.9 [facility] Comment on above: Performed By: #### A HP #### [facility] ([id number]) [address], [address] [place] [address] #### 12248-0 #### [facility] ([id number]) [address] [place] [address] 69045 Monocytes/100 WBC (Bld) 6.2 % Normal [facility] Comment on above: Performed By: #### A HP #### [facility] ([id number]) [address], [address] [place] [address] #### 67098-0 #### [facility] ([id number]) [address] [place] [address] Neutrophils/100 WBC (Bld) 51.9 % Normal [facility] Comment on above: Performed By: #### A HP #### [facility] ([id number]) [address] [place] [address] #### 29882-6 #### [facility] ([id number]) [address] [place] [address] 54609 Platelet mean volume (Bld) [Entitic vol] 8.7 fL Normal 7-12 [facility] Comment on above: Performed By: #### A HP #### [facility] ([id number]) [address] [facility], [facility] [address] [place] [address] #### 62312-1 #### [facility] ([id number]) [address] [place] [address] 51221 Platelets (Bld) [#/Vol] 106 10*3/uL Low 150-450 [facility] Comment on above: Performed By: #### A HP #### [facility] ([id number]) [address] [address] #### 35130-0 #### [facility] ([id number]) [address] [place] [address] 98484 RBC COUNT 4.17 X10E12/L Normal 3.80-5.20 [facility] Comment on above: Performed By: #### A HP #### [facility] ([id number]) [address] [facility] [address] [place] [address] #### 19767-0 #### [facility] ([id number]) [address] [place] [address] 98388 WBC (Bld) [#/Vol] 2.9 10*3/uL Low 4.0-11.0 [facility] Comment on above: Performed By: #### A HP #### [facility] ([id number]) [address] [facility], [facility] [address] [place] [address] #### 31304-3 #### [facility] ([id number]) [address] [place] [address] COMPREHENSIVE METABOLIC PANE Elvin 01-14-2024 Albumin [Mass/Vol] 3.2 g/dL Normal 3.2-5.3 [facility] Comment on above: Performed By: #### A HP #### [facility] ([id number]) [address] [facility], [address] [place] [address] #### 84228-0 #### [facility] ([id number]) [address] [place] [address] 01634 ALP [Catalytic activity/Vol] 72 U/L Normal 39-130 [facility] Comment on above: Performed By: #### A HP #### [facility] ([id number]) [address] [facility], [address] [place] [address] #### 77114-7 #### [facility] ([id number]) [address] [place] [address] 60174 ALT [Catalytic activity/Vol] 64 U/L High 0-31 [facility] Comment on above: Performed By: #### A HP #### [facility] ([id number]) [address] [facility], [address] [place] [address] #### 29925-0 #### [facility] ([id number]) [address] [place] [address] 02828 Anion gap [Moles/Vol] 3 mmol/L Low 5-[address] [facility] Comment on above: Performed By: #### A HP #### [facility] ([id number]) [address], [address] [place] [address] #### 83072-9 #### [facility] ([id number]) [address] [place] [address] 92154 AST [Catalytic activity/Vol] 52 U/L High 0-41 [facility] Comment on above: Performed By: #### A HP #### [facility] ([id number]) [address] [place] [address] #### 19153-1 #### [facility] ([id number]) [address] [place] [address] 47014 Bilirubin [Mass/Vol] 0.5 mg/dL Normal 0.3-1.2 [facility] Comment on above: Performed By: #### A HP #### [facility] ([id number]) [address] [place] [address] #### 61847-5 #### [facility] ([id number]) [address] [place] [address] 75224 Calcium [Mass/Vol] 8.6 mg/dL Normal 8.5-10.5 [facility] Comment on above: Performed By: #### A HP #### [facility] ([id number]) [address] [place] [address] #### 38601-2 #### [facility] ([id number]) [address] [place] [address] 74228 Chloride [Moles/Vol] 112 mmol/L High 98-109 [facility] Comment on above: Performed By: #### A HP #### [facility] ([id number]) [address] [place] [address] #### 13875-3 #### [facility] ([id number]) [address] [place] [address] 74003 CO2 [Moles/Vol] 25 mmol/L Normal 22-32 [facility] Comment on above: Performed By: #### A HP #### [facility] ([id number]) [address] [place] [address] #### 08279-7 #### [facility] ([id number]) [address] [place] [address] 91886 Creatinine [Mass/Vol] 0.60 mg/dL Normal 0.40-1.[address] [facility] Comment on above: Result Comment: METH OD TRACEABLE TO IDMS STANDARD Performed By: #### A HP #### [facility] ([id number]) [address] [facility], [address] [place] [address] #### 27978-8 #### [facility] ([id number]) [address] [place] [address] 44595 eGFR (CKD-EPI) NON-RACE DEPENDENT >90 Normal >59 [facility] Comment on above: Result Comment: Reported eGFR is based on the CKD-EPI 2020 equation that does not use a race coefficient. Performed By: #### A HP #### [facility] ([id number]) [address] [facility], [address] [place] [address] #### 42247-9 #### [facility] ([id number]) [address] [place] [address] 60698 Glucose [Mass/Vol] 94 mg/dL Normal 65-99 [facility] Comment on above: Performed By: #### A HP #### [facility] ([id number]) [address] [facility], [address] [place] [address] #### 25531-4 #### [facility] ([id number]) [address] [place] [address] 73601 Potassium [Moles/Vol] 3.4 mmol/L Low 3.5-5.[address] [facility] Comment on above: Performed By: #### A HP #### [facility] ([id number]) [address] [facility], [address] [place] [address] #### 18588-7 #### [facility] ([id number]) [address] [place] [address] Protein [Mass/Vol] 5.1 g/dL Low 6.0-8.0 [facility] Comment on above: Performed By: #### A HP #### [facility] ([id number]) [address] [facility], [address] [place] [address] #### 10597-1 #### [facility] ([id number]) [address] [place] [address] 25758 Sodium [Moles/Vol] 140 mmol/L Normal 134-146 [facility] Comment on above: Performed By: #### A HP #### [facility] ([id number]) [address] [facility], [address] [place] [address] #### 00282-7 #### [facility] ([id number]) [address] [place] [address] 34491 Urea nitrogen [Mass/Vol] 12 mg/dL Normal 5-23 [facility] Comment on above: Performed By: #### A HP #### [facility] ([id number]) [address] [facility], [address] [place] [address] #### 27361-3 #### [facility] ([id number]) [address] [place] [address] 67110 HCG ( test) Ql (U)o n 01-14-2024 Beta HCG ( test) Ql (U) Negative Normal NEG [facility] Comment on above: Performed By: #### [place], 660[address]-1, CBCA, 1988-5, 3040-3 #### [facility] ([id number]) [address] [place] [address] 07957 MAGNESIUMon 01-14-2024 Magnesium [Mass/Vol] 1.8 mg/dL Normal 1.8-2.6 [facility] Comment on above: Performed By: #### A HP #### [facility] ([id number]) [address] [place] [address] #### 12683-5 #### [facility] ([id number]) [address] [place] [address] 28813 Troponin I.cardiac High sens itivity method [Mass/Vol]on 01-14-2024 TROPONIN I, HIGH SENSITIVITY 4 ng/L Normal <16 [facility] Comment on above: Performed By: #### A HP #### [facility] ([id number]) [address] [facility], [address] [place] [address] #### 19552-8 #### [facility] ([id number]) [address] [place] [address] 69739 URN MACROSCOPIC NURon 2023 BILIRUBIN ERA Negative Normal NEG [facility] Comment on above: Performed By: #### A #### [facility] ([id number]) [address] [facility], [address] [place] [address] #### 19740-4 #### [facility] ([id number]) [address] [place] [address] 74358 BLOOD/HGB ERA Negative Normal NEG [facility] Comment on above: Performed By: #### A HP #### [facility] ([id number]) [address] [place] [address] #### 58789-9 #### [facility] ([id number]) [address] [place] [address] 04573 GLUCOSE ERA Negative Normal NEG [facility] Comment on above: Performed By: #### A HP #### [facility] ([id number]) [address] [facility], [address] [place] [address] #### 05134-3 #### [facility] ([id number]) [address] [place] [address] 40849 KETONES ERA Negative Normal NEG [facility] Comment on above: Performed By: #### A HP #### [facility] ([id number]) [address] [facility], [address] [place] [address] #### 69508-2 #### [facility] ([id number]) [address] [place] [address] 58782 LEUKOCYTE ESTERASE ERA Negative Normal NEG Pr [facility] Comment on above: Performed By: #### A HP #### [facility] ([id number]) [address] [facility], [address] [place] [address] #### 56335-8 #### [facility] ([id number]) [address] [place] [address] 88468 NITRITE ERA Positive Abnormal NEG [facility] Comment on above: Performed By: #### A #### [facility] ([id number]) [address] [facility], [address] [place] [address] #### 70046-0 #### [facility] ([id number]) [address] [place] [address] 24766 PH ERA 6.0 Normal 5.0-8.5 [facility] Comment on above: Performed By: #### A #### [facility] ([id number]) [address] [facility], [address] [place] [address] #### 66585-9 #### [facility] ([id number]) [address] [place] [address] 86757 PROTEIN ERA Negative Normal NEG [facility] Comment on above: Performed By: #### A HP #### [facility] ([id number]) [address] [facility], [address] [place] [address] #### 48157-8 #### [facility] ([id number]) [address] [place] [address] 48126 SPECIFIC GRAVITY ERA >=1.030 Normal 1.003-1.[address] [facility] Comment on above: Performed By: #### A HP #### [facility] ([id number]) [facility] [facility], [address] [place] [address] #### 27800-4 #### [facility] ([id number]) [address] [place] [address] 50200 UROBILINOGEN ERA 1.0 eu/dL Normal <1.1 [facility] Comment on above: Performed By: #### A HP #### [facility] ([id number]) [address] [place] [address], [address] [place] [address] #### 24897-6 #### [facility] ([id number]) [address] [place] [address] 68701 HGB A1C (GLYCO-HGB)on 2023 Glucose [Mass/Vol] 117 mg/dL Normal [facility] Comment on above: Performed By: #### A HP #### [facility] ([id number]) [address] [place] [address], [address] [place] [address] #### 57775-1 #### [facility] ([id number]) [address] [place] [address] 64992 HbA1c (Bld) [Mass fraction] 5.7 % High 4.4-5.6 [facility] Comment on above: Result Comment: NOTE ADA Guidelines Result HgbA1c Normal : less than 5.7 % Prediabetes : 5.7 % to 6.4 % Diabetes : > 6.4 % Use with caution in patients with abnormal hemoglobin variants as the half-life of red blood cells and in vivo glycation rates are affected. Performed By: #### A HP #### [facility] ([id number]) [facility], [address] [place] [address] #### 39246-9 #### [facility] ([id number]) [address] [place] [address] 10487 Lipid 1996 panelon 4 Cholesterol [Mass/Vol] 99 mg/dL Low 150-200 Pr [facility] Comment on above: Performed By: #### A HP #### [facility] ([id number]) [address] [place] [address], [address] [place] [address] #### 46696-3 #### [facility] ([id number]) [address] [place] [address] 90051 Cholesterol in HDL [Mass/Vol] 29 mg/dL Low >39 [facility] Comment on above: Result Comment: HDL <40 mg/dL - High Risk HDL > or = 40mg/dL- Desirable HDL >60 mg/dL - Negative Risk Performed By: #### A HP #### [facility] ([id number]) [address] [place] [address], [facility] [address] [place] [address] #### 53273-6 #### [facility] ([id number]) [address] [place] [address] 97005 Cholesterol in LDL [Mass/Vol] 44 mg/dL Normal <130 [facility] Comment on above: Result Comment: LDL <100 mg/dL - Desirable LDL >160 mg/dL - High Risk Performed By: #### A HP #### [facility] ([id number]) [address] [place] [address] [address] [place] [address] #### 55771-7 #### [facility] ([id number]) [address] [place] [address] Cholesterol in VLDL [Mass/Vol] 26 mg/dL Normal 0-30 [facility] Comment on above: Performed By: #### A HP #### [facility] ([id number]) [address] [facility], [address] [place] [address] #### 58130-4 #### [facility] ([id number]) [address] [place] [address] 98324 CHOLESTEROL:HDL 3.4 Normal 1.0-5.0 [facility] Comment on above: Performed By: #### A HP #### [facility] ([id number]) [address] [facility], [address] [place] [address] #### 32763-1 #### [facility] ([id number]) [address] [place] [address] 04094 Triglyceride [Mass/Vol] 131 mg/dL Normal 27-150 [facility] Comment on above: Performed By: #### A HP #### [facility] ([id number]) [address] [facility], [address] [place] [address] #### 81301-9 #### [facility] ([id number]) [address] [place] [address] 05111 Reference Lab Test IDon 05-0 VIT D 1 25 DIHYDROXY See Below Normal [facility] Comment on above: Result Comment: NOTE TEST RESULT FLAG UNIT REF.RANGE ------- Vit D,1,25 Dihydroxy 59.9 pg/mL 19.9-79.3 Test Performed By: [facility] [address] [address] Sap Bw Consultant: Krishna Mehta III #[id number] Performed By: #### A HP #### [facility] ([id number]) [address] [facility], [address] [place] [address] #### 40306-0 #### [facility] ([id number]) [address] [place] [address] 45340 TSH WITH REFLEXon 09-08-2023 TSH 1.36 uIU/mL Normal 0.49-4.67 [facility] Comment on above: Performed By: #### A HP #### [facility] ([id number]) [address] [place] [address], [address] [place] [address] #### 04625-3 #### [facility] ([id number]) [address] [place] [address] 72425 CBC AND AUTO DIFFon 08-19-19 24 Anisocytosis Ql (Bld) 2+ Abnormal NONE [facility] Comment on above: Performed By: #### C BRUCE, , CBCA, 3039-07 #### [facility] ([id number]) [address] [place] [address] 38801 Erythrocyte distribution width (RBC) [Ratio] 23.1 % High 11.5-15.0 [facility] Comment on above: Performed By: #### C BRUCE, , CBCA, 3039-07 #### [facility] ([id number]) [address] [place] [address] 33188 Hematocrit (Bld) [Volume fraction] 26.3 % Low 35-47 [facility] Comment on above: Performed By: #### C BRUCE, , CBCA, 3039-07 #### [facility] ([id number]) [address] [place] [address] 75356 Hemoglobin (Bld) [Mass/Vol] 9.3 g/dL Low 11.7-15.5 [facility] Comment on above: Performed By: #### C BRUCE, , CBCA, 1987-08, 3039-07 #### [facility] ([id number]) [address] [place] [address] 23384 Lymphocytes (Bld) [#/Vol] 1.0 10*3/uL Normal 1.0-3.5 [facility] Comment on above: Performed By: #### C BRUCE, , CBCA, 1987-08, 3039-07 #### [facility] ([id number]) [address] [place] [address] 87622 Lymphocytes/100 WBC (Bld) 48.0 % Normal [facility] Comment on above: Performed By: #### Ethan BARRERA, , CBCA, 1987-08, 3039-07 #### [facility] ([id number]) [address] [place] [address] 16203 MCH (RBC) [Entitic mass] 42.6 pg High 27-34 [facility] Comment on above: Performed By: #### Ethan BARRERA, , CBCA, 1987-08, 3039-07 #### [facility] ([id number]) [address] [place] [address] 22627 MCHC (RBC) [Mass/Vol] 35.5 g/dL Normal 32-[address] [facility] Comment on above: Performed By: #### C BRUCE, , CBCA, 1987-08, 3039-07 #### [facility] ([id number]) [address] [place] [address] 56519 MCV (RBC) [Entitic vol] 120 fL High 80-100 [facility] Comment on above: Performed By: #### C BRUCE, , CBCA, 1987-08, 3039-07 #### [facility] ([id number]) [address] [place] [address] 96956 Monocytes (Bld) [#/Vol] 0.2 10*3/uL Normal 0-0.9 [facility] Comment on above: Performed By: #### Ethan BARRERA, , CBCA, 1987-08, 3039-07 #### [facility] ([id number]) [address] [place] [address] 99764 Monocytes/100 WBC (Bld) 7.0 % Normal [facility] Comment on above: Performed By: #### Ethan BARRERA, , CBCA, 1987-08, 3039-07 #### [facility] ([id number]) [address] [place] [address] 62920 Neutrophils (Bld) [#/Vol] 1.0 10*3/uL Low 1.5-6.6 [facility] Comment on above: Performed By: #### Ethan BARRERA, , CBCA, 1987-08, 3039-07 #### [facility] ([id number]) [address] [place] [address] 83816 Platelet mean volume (Bld) [Entitic vol] 8.3 fL Normal 7-12 [facility] Comment on above: Performed By: #### Ethan BARRERA, , CBCA, 1987-08, 3039-07 #### [facility] ([id number]) [address] [place] [address] 67238 Platelets (Bld) [#/Vol] 122 10*3/uL Low 150-450 [facility] Comment on above: Performed By: #### Ethan BARRERA, , CBCA, 1987-08, 3039-07 #### [facility] ([id number]) [address] [place] [address] [place] [address] RBC COUNT 2.19 X10E12/L Low 3.80-5.20 [facility] Comment on above: Performed By: #### C BRUCE, , CBCA, 1987-08, 3039-07 #### [facility] ([id number]) [address] [place] [address] 45500 SEG NEUTROPHIL 45.0 % Normal [facility] Comment on above: Performed By: #### C BRUCE, , CBCA, 1987-08, 3039-07 #### [facility] ([id number]) [address] [place] [address] 86071 TEARDROP 1+ Abnormal NONE [facility] Comment on above: Performed By: #### Ethan BARRERA, , CBCA, 1987-08, 3039-07 #### [facility] ([id number]) [address] [place] [address] 76065 WBC (Bld) [#/Vol] 2.2 10*3/uL Low 4.0-11.0 [facility] Comment on above: Performed By: #### C BRUCE, , CBCA, 1987-08, 3039-07 #### [facility] ([id number]) [address] [place] [address] 70518 COMPREHENSIVE METABOLIC PANE Elvin 08-19-2023 Albumin [Mass/Vol] 3.3 g/dL Normal 3.2-5.3 [facility] Comment on above: Performed By: #### Ethan BARRERA, , CBCA, 1987-08, 3039-07 #### [facility] ([id number]) [address] [place] [address] 43241 ALP [Catalytic activity/Vol] 50 U/L Normal 39-130 [facility] Comment on above: Performed By: #### C BRUCE, , CBCA, 1987-08, 3039-07 #### [facility] ([id number]) [address] [place] [address] 75877 ALT [Catalytic activity/Vol] 26 U/L Normal 0-31 [facility] Comment on above: Performed By: #### C BRUCE, , CBCA, 1987-08, 3039-07 #### [facility] ([id number]) [address] [place] [address] 60953 Anion gap [Moles/Vol] 5 mmol/L Normal 5-[address] [facility] Comment on above: Performed By: #### Ethan BARRERA, , CBCA, 1987-08, 3039-07 #### [facility] ([id number]) [address] [place] [address] 26013 AST [Catalytic activity/Vol] 29 U/L Normal 0-41 [facility] Comment on above: Performed By: #### Ethan BARRERA, , CBCA, 1987-08, 3039-07 #### [facility] ([id number]) [address] [place] [address] 76438 Bilirubin [Mass/Vol] 1.2 mg/dL Normal 0.3-1.2 [facility] Comment on above: Performed By: #### Ethan BARRERA, , CBCA, 1987-08, 3039-07 #### [facility] ([id number]) [address] [place] [address] 89519 Calcium [Mass/Vol] 9.0 mg/dL Normal 8.5-10.5 [facility] Comment on above: Performed By: #### Ethan BARRERA, , CBCA, 1987-08, 3039-07 #### [facility] ([id number]) [address] [place] [address] 24351 Chloride [Moles/Vol] 107 mmol/L Normal 98-109 [facility] Comment on above: Performed By: #### C BRUCE, , CBCA, 1987-08, 3039-07 #### [facility] ([id number]) [address] [place] [address] 41303 CO2 [Moles/Vol] 27 mmol/L Normal 22-32 [facility] Comment on above: Performed By: #### C BRUCE, , CBCA, 1987-08, 3039-07 #### [facility] ([id number]) [address] [place] [address] 66996 Creatinine [Mass/Vol] 0.53 mg/dL Normal 0.40-1.[address] [facility] Comment on above: Result Comment: METH OD TRACEABLE TO IDMS STANDARD Performed By: #### C BRUCE, , CBCA, 1987-08, 3039-07 #### [facility] ([id number]) [address] [place] [address] 54563 eGFR (CKD-EPI) NON-RACE DEPENDENT >90 Normal >59 [facility] Comment on above: Result Comment: Reported eGFR is based on the CKD-EPI 2020 equation that does not use a race coefficient. Performed By: #### C BRUCE, , CBCA, 1987-08, 3039-07 #### [facility] ([id number]) [address] [place] [address] 18775 Glucose [Mass/Vol] 94 mg/dL Normal 65-99 [facility] Comment on above: Performed By: #### C BRUCE, , CBCA, 1987-08, 3039-07 #### [facility] ([id number]) [address] [place] [address] 88588 Potassium [Moles/Vol] 3.2 mmol/L Low 3.5-5.[address] [facility] Comment on above: Performed By: #### C BRUCE, , CBCA, 1985-08, 3039-07 #### [facility] ([id number]) [address] [place] [address] 96943 Protein [Mass/Vol] 5.5 g/dL Low 6.0-8.0 [facility] Comment on above: Performed By: #### C BRUCE, , CBCA, 1987-08, 3039-07 #### [facility] ([id number]) [address] [place] [address] 12860 Sodium [Moles/Vol] 139 mmol/L Normal 134-146 [facility] Comment on above: Performed By: #### C BRUCE, , CBCA, 1987-08, 3039-07 #### [facility] ([id number]) [address] [place] [address] 08420 Urea nitrogen [Mass/Vol] 11 mg/dL Normal 5-23 [facility] Comment on above: Performed By: #### C BRUCE, , CBCA, 1985-08, 3039-07 #### [facility] ([id number]) [address] [place] [address] [id number] CRP [Mass/Vol]on 08-19-2023 C REACTIVE PROTEIN 0.9 mg/dL High 0.000-0.744 [facility] Comment on above: Performed By: #### Ethan BARRERA, , CBCA, 1985-08, 3039-07 #### [facility] ([id number]) [address] [place] [address]1416 DRUG SCREEN, URINEon 024 AMPHETAMINE/METHAMP Negative Normal NEG [facility] Comment on above: Result Comment: AMPH /METH screening cut off = 1000 ng/mL Performed By: #### A HP #### [facility] ([id number]) [address] [place] [address], [address] [place] [address] #### [id number] #### [facility] ([id number]) [address] [place] [address] [id number] BARBITURATES Negative Normal NEG [facility] Comment on above: Result Comment: Ana iturates screening cut off value = 200 ng/mL Performed By: #### A HP #### [facility] ([id number]) [address], [address] [place] [address] #### [id number] #### [facility] ([id number]) [address] [place] [address] 63958 BENZODIAZEPINES Negative Normal NEG [facility] Comment on above: Result Comment: Jeramie odiazepines screening cut off value = 200 ng/mL Performed By: #### A HP #### [facility] ([id number]) [address], [address] [place] [address] #### 90887-7 #### [facility] ([id number]) [address] [place] [address] CANNABINOIDS Positive Abnormal NEG [facility] Comment on above: Result Comment: Conf irmation available upon request. Cannabinoids/THC screening cut off value = 50 ng/mL Performed By: #### A HP #### [facility] ([id number]) [address] [facility], [address] [place] [address] #### 68873-1 #### [facility] ([id number]) [address] [place] [address] 14257 COCAINE METABOLITE Negative Normal NEG [facility] Comment on above: Result Comment: Coca ine screening cut off value = 300 ng/mL Performed By: #### A HP #### [facility] ([id number]) [address], [address] [place] [address] #### 93401-2 #### [facility] ([id number]) [address] [place] [address] 24805 ECSTASY Negative Normal NEG [facility] Comment on above: Result Comment: Ecst asy screening cut off value = 500 ng/mL This report is intended for use in clinical monitoring or management of patients. Performed By: #### A HP #### [facility] ([id number]) [address] [place] [address], [address] [place] [address] #### 09067-4 #### [facility] ([id number]) [address] [place] [address] METHADONE Negative Normal NEG [facility] Comment on above: Result Comment: Meth adone screening cut off value = 300 ng/mL. Performed By: #### A HP #### [facility] ([id number]) [address] [place] [address], [address] [address] #### 36557-1 #### [facility] ([id number]) [address] [place] [address] 77153 OPIATES Negative Normal NEG [facility] Comment on above: Result Comment: Opia chalo screening cut off value = 300 ng/mL NOTE: This test is used for the detection of codeine, hydrocodone (>1000 ng/mL), morphine and hydromorphone (>900 ng/mL) in urine. Performed By: #### A HP #### [facility] ([id number]) [address] [place] [address], [address] [place] [address] #### 01821-1 #### [facility] ([id number]) [address] [place] [address]996 OXYCODONE Negative Normal NEG [facility] Comment on above: Result Comment: Oxyc odone screening cut off value = 300 ng/mL NOTE: This test is used for the detection of oxycodone and oxymorphone in urine. Performed By: #### A HP #### [facility] ([id number]) [address] [place] [address], [address] [place] [address] #### 84747-2 #### [facility] ([id number]) [address] [place] [address] 87321 PHENCYCLIDINE Negative Normal NEG [facility] Comment on above: Result Comment: Phen cyclidine screening cut off value = 25 ng/mL Performed By: #### A HP #### [facility] ([id number]) [address] [place] [address], [address] [place] [address] #### 81855-5 #### [facility] ([id number]) [address] [place] [address] HCG ( test) Ql (U)o n 08-19-2023 Beta HCG ( test) Ql (U) Negative Normal NEG [facility] Comment on above: Performed By: #### 2 106-3 #### [facility] ([id number]) [address] [place] [address] 88127 LIPASEon 08-19-2023 Lipase [Catalytic activity/Vol] 25 U/L Normal 17-40 [facility] Comment on above: Performed By: #### C BRUCE, , CBCA, 1985-08, 3039-3 #### [facility] ([id number]) [address] [place] [address]47[address] MAGNESIUMon 08-19-2023 Magnesium [Mass/Vol] 1.9 mg/dL Normal 1.8-2.6 [facility] Comment on above: Performed By: #### C BRUCE, , CBCA, 1985-08, 3039- #### [facility] ([id number]) [address] [place] [address] 29143 SARS/FLU A+B/RSV by NAAT/Mol ecularon 08-19-2023 SARS/FLU [...] operators who are performing tests using either Bolong[employer] Trevor or Tunesat systems and is limited to laboratories that [...] specimen repeat. Fact Sheet for Healthcare Providers: https://www.fda.gov/media/ 534479/download Fact Sheet for Patients: https://www.fda.gov/media/ 927507/download Normal [facility] Comment on above: Performed By: #### C OVFLR #### [facility] ([id number]) [address] [place] [address], [place] [address] CORRIEN ALVNI Perez 2023 BILIRUBIN ERA Small Abnormal NEG [facility] Comment on above: Performed By: #### N UM #### [facility] ([id number]) [address] [place] [address] [place] [address] BLOOD/HGB ERA Trace Abnormal NEG [facility] Comment on above: Performed By: #### N UM #### [facility] ([id number]) [address] [place] [address] [place] [address] GLUCOSE ERA Negative Normal NEG [facility] Comment on above: Performed By: #### N UM #### [facility] ([id number]) [address] [place] [address] [place] [address] KETONES ERA Negative Normal NEG [facility] Comment on above: Performed By: #### N UM #### [facility] ([id number]) [address] [place] [address] [place] [address] LEUKOCYTE ESTERASE ERA Small Abnormal NEG Pr [facility] Comment on above: Performed By: #### N UM #### [facility] ([id number]) [address] [place] [address] [place] [address] NITRITE ERA Positive Abnormal NEG [facility] Comment on above: Performed By: #### N UM #### [facility] ([id number]) [address] [place] [address] [place] [address] PH ERA 6.0 Normal 5.0-8.5 [facility] Comment on above: Performed By: #### N UM #### [facility] ([id number]) [address] [place] [address] [place] [address] PROTEIN ERA Negative Normal NEG [facility] Comment on above: Performed By: #### N UM #### [facility] ([id number]) [address] [place] [address] [place] [address] SPECIFIC GRAVITY ERA 1.025 Normal 1.003-1.[address] [facility] Comment on above: Performed By: #### N UM #### [facility] ([id number]) [address] [facility] [place], [place] [address] UROBILINOGEN ERA >=8.0 Normal <1.1 [facility] Comment on above: Performed By: #### N UM #### [facility] ([id number]) [address] [facility] [place], [place] [address] ED Note-Physicianon 07-23-19 ED Note-Physician Basic Information Time Seen: Bernadette Gil PA-C 07/06/2023 15:16 Chief Complaint Pt reports vaginal itching and burning with urination for 1.5 months. Brown vaginal discharge. Pt also reports sinus congestion for 3-4 days. History of Present Illness 33-year-old female presents with brown vaginal discharge for the past 2 months. 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 Nasal congestion sounds viral and can use hmff-fkr-kyvbkmu medications and follow-up family doctor. Afebrile, not [...] prescription medications Follow-up With When Contact Information [facility] Dept: [phone] In 3 days 07/09/2023 EST Additional Instructions: Boubacar MULLINS, Zev Webber, ORS Within 2 to 4 days [address] [place] [address]- Additional Instructions: Patient Education Viral Respiratory Infection, Iaii-Na-Bzyi Attestation I performed a substantive part of [...] No. Hous (more content not included)... Normal [facility] Comment on above: Result Comment: Elec tronically Signed By: Bernadette Gil PA-C\.br\Date and Time Signed: 07/06/23 16:00 EST\.br\Electronically Co-Signed By: Adolfo Hernandez MD\.br\Date and Time Co-Signed: 07/23/23 19:29 EDT Chlam/GC/Trich,NAAon 024 C. trachomatis rRNA BETZAIDA+probe Ql (Unsp spec) Negative Invalid Interpretation Code Negative [facility] Comment on above: Performed By: #### 1 [id number] #### [facility] [address] [place] [address] N. gonorrhoeae rRNA BETZAIDA+probe Ql (Unsp spec) Negative Invalid Interpretation Code Negative [facility] Comment on above: Performed By: #### 1 [id number] #### [facility] [address] [place] [address] T. vaginalis rRNA BETZAIDA+probe Ql (Unsp spec) Negative Invalid Interpretation Code Negative [facility] Comment on above: Result Comment: Perf ormed at: =G [facility] [address] RASHID Lou [id number] MD Tamika Eid Performed By: #### 1 [id number] #### [facility] [address] [place] [address] C Urineon 07-08-2023 Bacteria identified Cx Nom [...] 5,000 cfu/ml Mixed skin contaminants SUSCEPTIBILITY RESULTS _ LEGEND: S=Susceptible, N/R=Not Reported, Blank=Data not available, [...] R1: This test was performed at: [facility], [address] [place] [address], [facility] , , [facility] Comment on above: Performed By: #### 2 [id number], [id number], [id number] #### [facility] [address] [place] [address] CHEMISTRYOrdered By: SYSTEM SYSTEM on 07-06-2023 Amphetamines [...] Consent for Treatmenton Consent for Treatment [id number] Normal [facility] Discharge Instructionson Discharge Instructions [id number] Normal [facility] ED Clinical Summaryon 2023 ED Clinical Summary (Inserted Image. Radha ble to display) [place] [id number] ED Clinical Summary Person Information Name: SANGEETA NICHOLSON [facility] Age: 33 Years : 1990 Sex: Female Language: Bengali PCP: NONE, XXXX Marital Status: Single Visit [...] 07/06/2023 16:02:43 07/06/2023 16:02:43 07/06/2023 16:02:43 ADDRESS: [address] [place] [id number] PHYS DOC NOTES: MEDICAL INFORMATION: Prescriptions Given: Medications to Continue with No Changes Other Medications albuterol (albuterol 0.083% Inh Valerie 3 mL) 3 Milliliter Inhalation every 6 hours as needed for wheezing. PATIENT EDUCATION INFORMATION: Instructions: Viral Respiratory Infection, Rgfu-Ne-Pihs Follow up: With: Address: When: Boubacar MULLINS, Zev Webber, ORS [address] [place] [address] Within 2 to 4 days With: Address: When: [facility] Dept: [phone] In 3 days 07/09/2023 DIAGNOSIS: 1:Viral sinusitis; 2:Vaginal discharge; Other viral agents as the cause of diseases classified elsewhere Normal [facility] ED Patient Education Noteon 07-06-2023 ED [...] home: Managing pain and congestion ? Take ffdf-fac-wjsyowr and prescription medicines only as told by [...] cannot use soap and water, 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 ? Cover your mouth when you [...] Reviewed: 07/23/2021 Elsevier Patient Education ? 2022 [employer] Normal [facility] ED Patient Summaryon 024 ED Patient Summary (Inserted Image. Radha ble to display) [address] [address] Patient Discharge Instructions Person Information Name: SANGEETA NICHOLSON Age: 33 Years Arrival Date: 07/06/2023 15:07:04 Discharge Diagnosis: 1:Viral sinusitis; 2:Vaginal discharge; Other viral agents as the cause of diseases classified elsewhere Primary Care Physician: NONE, XXXX Provider Information Primary Provider: Advanced Drip Box Tender:None The exam and treatment you received in the Emergency Department were for an urgent problem and are not intended as complete care. It is important that you follow up with a doctor, nurse practitioner, or physician?s carpenter assistant installer for ongoing care. If your symptoms become [...] When: Boubacar MULLINS, Zev Webber, ORS [address] [facility] [place] [address] Within 2 to 4 days With: Address: When: [facility] Dept: [phone] In 3 days 07/09/2023 In the event that this physician does not participate in your insurance network, please consult with your insurance company to find a nearby participating provider. Patient Education Materials: Viral Respiratory Infection, Wkce-Hz-Ilun A MESSAGE TO ALL PATIENTS REGARDING OPIOIDS PRESCRIPTION OPIOIDS: WHAT YOU NEED TO KNOW Prescription opioids can be used to help relieve cohvekcl-cq-pelcuh pain and are often prescribed following a [...] guidance from the Food and Drug Administration (www.fda.gov/Drugs/Resourc esForYou). ? Visit www.cdc.gov/drugoverdose to learn about the risks of opioids abuse and overdose. ? If you believe you may be strugglin (more content not included)... Normal [facility] No Panel InformationOrdered By: Bella Flower on 07-06-2023 WP No clue cells presen t No Trichomonas vaginalis present No yeast seen [facility] SEROLOGYOrdered By: Jules Herrera urgeon on 07-06-2023 HCG.beta subunit (U) [Moles/Vol] Negative Normal [facility] Man Sero U BetaHcg Qualon 07-06-2023 HCG.beta subunit (U) [Moles/Vol] Negative Normal [facility] Comment on above: Performed By: #### 2 [id number], [id number], [id number] #### [facility] [address] [place] [address] U Drug Screenon 07-06-2023 Amphetamines Screen method >1000 ng/mL Ql (U) Negative Normal NEGATIVE [facility] Comment on above: Performed By: #### 2 [id number] #### [facility] [address] [place] [address] Barbiturates Screen Ql (U) Negative Normal NEGATIVE [facility] Comment on above: Performed By: #### 2 [id number] #### [facility] [address] [place] [address] Benzodiazepines Ql (U) Negative Normal NEGATIVE [facility] Comment on above: Performed By: #### 2 510259 #### [facility] [address] [place] [address] Cannabinoids Screen Ql (U) Positive Abnormal NEGATIVE [facility] Comment on above: Performed By: #### 2 622753 #### [facility] [address] [place] [address] Cocaine Ql (U) Negative Normal NEGATIVE [facility] Comment on above: Performed By: #### 2 793000 #### [facility] [address] [place] [address] Opiates Screen Ql (U) Negative Normal NEGATIVE Fis [facility] Comment on above: Performed By: #### 2 239254 #### [facility] [address] [place] [address] Phencyclidine Screen method >25 ng/mL Ql (U) Negative Normal NEGATIVE [facility] Comment on above: Performed By: #### 2 887090 #### [facility] [address] [place] [address] UA With Cult Reflexon 2023 Color (U) YELLOW Normal Yellow [facility] Comment on above: Performed By: #### 2 0471518, [id number], 9606461 #### [facility] [address] [place] [address] Glucose (U) [Mass/Vol] Negative Normal Negative Fi [facility] Comment on above: Performed By: #### 2 9361271, 73162930, 7927120 #### [facility] [address] [place] [address] Ketones Ql (U) Negative Normal Negative [facility] Comment on above: Performed By: #### 2 2058852, 94227385, 6138139 #### [facility] [address] [place] [address] UA Blood Negative Normal Negative [facility] Comment on above: Performed By: #### 2 4876303, 26370776, 8098595 #### [facility] [address] [place] [address] UA Amorph Nelsy Present Normal [facility] Comment on above: Performed By: #### 2 3049174, 47327720, 1743536 #### [facility] [address] [place] [address] UA Bacteria TRACE Normal Trace [facility] Comment on above: Performed By: #### 2 8914871, 11018580, 3592785 #### [facility] [address] [place] [address] UA Clarity CLEAR Normal Clear [facility] Comment on above: Performed By: #### 2 8704441, 40615016, 1847577 #### [facility] [address] [place] [address] UA Leuk Est 2+ Abnormal Negative [facility] Comment on above: Performed By: #### 2 0759172, 98836860, 1390722 #### [facility] [address] [place] [address] UA Mucous 1+ Normal [facility] Comment on above: Performed By: #### 2 2066456, 87165717, 0840397 #### [facility] [address] [place] [address] UA Nitrite Negative Normal Negative [facility] Comment on above: Performed By: #### 2 4790102, 55428028, 2192412 #### [facility] [address] [place] [address] UA pH 8.5 Invalid Interpretation Code 5.0-9.0 [facility] Comment on above: Performed By: #### 2 1099363, [id number], 4939474 #### [facility] [address] [place] [address] UA Protein 2+ Abnormal Negative [facility] Comment on above: Performed By: #### 2 6374962, 57839000, 4464002 #### [facility] [address] [place] [address] UA RBC 0-3 Normal 0-3 [facility] Comment on above: Performed By: #### 2 6646562, 17520411, 4814172 #### [facility] [address] [place] [address] UA Spec Desc Clean Catch Normal [facility] Comment on above: Performed By: #### 2 0976241, 27263599, 5012006 #### [facility] [address] [place] [address] UA Spec Grav 1.010 Invalid Interpretation Code 1.005-1.030 [facility] Comment on above: Performed By: #### 2 5662120, 68235268, 9751546 #### [facility] [address] [place] [address] UA Squam Epithelial 3-4 Normal 0-2 Fishe r [facility] Comment on above: Performed By: #### 2 6409242, 27083594, 7482248 #### [facility] [address] [place] [address] UA Urobilinogen 4.0 EU/dL Abnormal 0.0-1.0 [facility] Comment on above: Performed By: #### 2 8436811, 48334074, 3475722 #### [facility] [address] [place] [address] UA WBC 16-25 Abnormal 0-5 [facility] Comment on above: Performed By: #### 2 1788832, 11555281, 5868765 #### [facility] [address] [place] [address] Urobilinogen (U) [Mass/Vol] Negative Normal Negative [facility] Comment on above: Performed By: #### 2 7424790, 98384616, 1823752 #### [facility] [address] [place], [place] [address] URINALYSISOrdered By: Jules Ny on 07-06-2023 Color [...] HCV W/PCR REFLX Reactive Abnormal NRCT [facility] Comment on above: Result Comment: Supplemental testing for HCV RNA by PCR has been ordered per CDC recommendations. Eqoebp-sd-zcixtz ratio is >=1.00. Performed By: #### A #### [facility] ([id number]) [address] [facility], [address] [place] [address] #### 45607-1 #### [facility] ([id number]) [address] [place] [address], [place] [address] HEPATITIS A IGM Non-Reactive Normal NRCT [facility] Comment on above: Performed By: #### A HP #### [facility] ([id number]) [address] [place] [address], [address] [place] [address] #### 22447-1 #### [facility] ([id number]) [address] [place] [address] HEPATITIS B CORE IGM Negative Normal NEG [facility] Comment on above: Performed By: #### A HP #### [facility] ([id number]) [address] [place] [address], [address] [place] [address] #### 80206-0 #### [facility] ([id number]) [address] [place] [address] HEPATITIS B SURF AG Negative Normal NEG [facility] Comment on above: Performed By: #### A HP #### [facility] ([id number]) [address] [place] [address], [address] [place] [address] #### 29440-2 #### [facility] ([id number]) [address] [place] [address] HCV RNA BETZAIDA+probe Qnon 06-17 HCV RNA QUANT PCR [id number] IU/mL Abnormal Undetected [facility] Comment on above: Result Comment: NOTE Result in log IU/mL is 6.72. ADDITIONAL INFORMATION The quantification range of this assay is 15 to 100,000,000 IU/mL (1.18 log to 8.00 log IU/mL). Testing was performed using the valentin HCV test ([employer] Test Performed by: [address] [address] Line Lead: Ruddy Gonzalez M.D. Ph.D.; CLIA# [id number] Performed By: #### A HP #### [facility] ([id number]) [address] [facility], [address] [place] [address] #### 40340-3 #### [facility] ([id number]) [address] [facility], [place] [address] Cult,Urineon 12-11-2022 Cult,Urine Specimen Description .URINE Culture Several types of bacteria were identified in this specimen. Further ID and susceptibility testing is generally not helpful in this circumstance and has not been performed. Consider recollection if clinically indicated. Report Status FINAL 12/11/2022 Normal [facility] Comment on above: Performed By: #### P HEP, HIVCMB #### [address] [address] Line Lead: Antonino Nova MD #### BMPCMP, BMP, CBC #### [address] [place] [address] Line Lead: Merlin Charles MD UA w/Reflex Cultureon 2022 Bilirubin, SemiQt,Ur Negative Normal NEG [facility] Comment on above: Performed By: #### P HEP, HIVCMB #### [address] [address] Line Lead: Antonino Nova MD #### BMPCMP, BMP, CBC #### [address] [place] [address] Line Lead: Merlin Charles MD Blood, Urine Negative Normal NEG [facility] Comment on above: Performed By: #### P HEP, HIVCMB #### [address] [address] Line Lead: Antonino Nvoa MD #### BMPCMP, BMP, CBC #### [address] [place] [address] Line Lead: Merlin Charles MD Clarity (U) Clear Normal CLEAR [facility] Comment on above: Performed By: #### P HEP, HIVCMB #### [address] [address] Line Lead: Antonino Nova MD #### BMPCMP, BMP, CBC #### [facility] [address] [place] [address] [address] [place], [place] 9371483 Line Lead: Merlin Charles MD Color (U) Yellow Normal YEL [facility] Comment on above: Performed By: #### P HEP, HIVCMB #### [address] [address] Line Lead: Antonino Nova MD #### BMPCMP, BMP, CBC #### [address] [place] [address] Line Lead: Merlin Charles MD Glucose Ql (U) Negative Normal NEG [facility] Comment on above: Performed By: #### P HEP, HIVCMB #### [address] [address] Line Lead: Antonino Nova MD #### BMPCMP, BMP, CBC #### [address] [place], [place] 427[address]83 Line Lead: Merlin Charles MD Ketones Ql (U) Negative Normal NEG [facility] Comment on above: Performed By: #### P HEP, HIVCMB #### [address] [address] Line Lead: Antonino Nova MD #### BMPCMP, BMP, CBC #### [facility] [address] [place] [address] [address] [place], [place] 1431383 Line Lead: Merlin Charles MD Leukocyte esterase Test strip Ql (U) LARGE Abnormal NEG [facility] Comment on above: Performed By: #### P HEP, HIVCMB #### [address] [address] Line Lead: Antonino Nova MD #### BMPCMP, BMP, CBC #### [address] [place], [place] 7724083 Line Lead: Merlin Charles MD Nitrite,Ur Negative Normal NEG [facility] Comment on above: Performed By: #### P HEP, HIVCMB #### [address] [address] Line Lead: Antonino Nova MD #### BMPCMP, BMP, CBC #### [address] [place], [place] 9261983 Line Lead: Merlin Charles MD PH,Ur 6.0 Normal 5.0-9.0 [facility] Comment on above: Performed By: #### P HEP, HIVCMB #### [address] [address] Line Lead: Antonino Nova MD #### BMPCMP, BMP, CBC #### [address] [place], [place] 4139283 Line Lead: Merlin Charles MD Protein Ql (U) Negative Normal [facility] Comment on above: Performed By: #### P HEP, HIVCMB #### [address] [address] Line Lead: Antonino Nova MD #### BMPCMP, BMP, CBC #### [address] [place], [place] 1142083 Line Lead: Merlin Charles MD Spec. Louise,Ur 1.025 High 1.010-1.020 [facility] Comment on above: Performed By: #### P HEP, HIVCMB #### [address] [address] Line Lead: Antonino Nova MD #### BMPCMP, BMP, CBC #### [facility] [address] [place] [address] Line Lead: Merlin Charles MD Urobilinogen,Ur Normal Normal 0.0-1.0 [facility] Comment on above: Performed By: #### P HEP, HIVCMB #### [address] [address]26[address] Line Lead: Antonino Nova MD #### BMPCMP, BMP, CBC #### [facility] [address] [place] [address] Line Lead: Merlin Charles MD Urinalysis,Microon 3 Bacteria 3+ Abnormal NONE [facility] Comment on above: Performed By: #### P HEP, HIVCMB #### [address] [address] Line Lead: Antonino Nova MD #### BMPCMP, BMP, CBC #### [facility] [address] [place] [id number] Line Lead: Merlin Charles MD Epithelial cells LM Ql (Urine sed) 0 TO 2 Normal 0-25 [facility] Comment on above: Performed By: #### P HEP, HIVCMB #### [address] [address] Line Lead: Antonino Nova MD #### BMPCMP, BMP, CBC #### [facility] [address] [place] [address] Line Lead: Merlin Charles MD Urine RBC's 0 TO 2 Normal 0-2 [facility] Comment on above: Performed By: #### P HEP, HIVCMB #### [address] [id number] Line Lead: Antonino Nova MD #### BMPCMP, BMP, CBC #### [facility] [address] [place] [address] Line Lead: Merlin Charles MD Urine WBC's 10 TO 20 Normal 0-5 [facility] Comment on above: Performed By: #### P HEP, HIVCMB #### [facility] [address] [place], [place] [phone] Line Lead: Antonino Nova MD #### BMPCMP, BMP, CBC #### [facility] [address] [place] [address] Line Lead: Merlin Charles MD Cult,Urineon 09-24-2022 Cult,Urine Specimen Description .VOIDED URINE Culture ESCHERICHIA COLI >[id number] CFU/ML STREPTOCOCCI, BETA HEMOLYTIC GROUP B >[id number] CFU/ML Report Status FINAL 09/24/2022 SUSCEPTIBILITY Organism [...] Tobramycin <=1 SUSCEPTIBLE Trimethoprim/Sulfa <=20 SUSCEPTIBLE Susceptible [facility] Comment on above: Performed By: #### U RC #### [facility] [address] [place], [place] [id number] Line Lead: Antonino Nova MD [facility] [address] [place] [address] Line Lead: Merlin Charles MD Chlamydia/GC,DNA Ampon 09-23 Chlamydia Probe Negative Normal NEG [facility] Comment on [...] Performed By: #### U ANKITA, UA #### [address] [place], [place] [phone] Line Lead: Merlin Charles MD #### SWCGP #### [address] [address] Line Lead: Antonino Nova MD Gonorrhea Probe Negative Normal NEG [facility] Comment on [...] Performed By: #### U ANKITA UA #### [address] [place], [place] [phone] Line Lead: Merlin Charles MD #### SWCGP #### [address] [phone] Line Lead: Antonino Nova MD Trichomonas/Wet Prepon 09-22 Trichomonas/Wet Prep Specimen Descriptio n .VAGINAL SPECIMEN Direct Exam NO YEAST OBSERVED NO TRICHOMONAS SEEN NO CLUE CELLS SEEN Report Status FINAL 09/22/2022 Normal [facility] Comment on above: Performed By: #### P HEP, HIVCMB #### [address] [address] Line Lead: Antonino Nova MD #### BMPCMP, BMP, CBC #### [address] [place] [address] Line Lead: Merlin Charles MD Urinalysis, Routineon 2022 Bilirubin, SemiQt,Ur Negative Normal NEG [facility] Comment on above: Performed By: #### U MICAO, UA #### [facility] [address] [place], [place] [phone] Line Lead: Merlin Charles MD #### SWCGP #### [address] [address] Line Lead: Antonino Nova MD Blood, Urine Negative Normal NEG [facility] Comment on above: Performed By: #### U MICAO, UA #### [facility] [address] [place], [place] [phone] Line Lead: Merlin Charles MD #### SWCGP #### [address] [address] Line Lead: Antonino Nova MD Clarity (U) Cloudy Abnormal CLEAR [facility] Comment on above: Performed By: #### U MICAO, UA #### [facility] [address] [place] [address] [address] [place], [place] [phone] Line Lead: Merlin Charles MD #### SWCGP #### [address] [address] Line Lead: Antonino Nova MD Color (U) Yellow Normal YEL [facility] Comment on above: Performed By: #### U MICAO, UA #### [facility] [address] [place] [address] [place] [place], [place] [phone] Line Lead: Merlin Charles MD #### SWCGP #### [address] [address] Line Lead: Antonino Nova MD Glucose Ql (U) Negative Normal NEG [facility] Comment on above: Performed By: #### U MICAO, UA #### [facility] [address] [place], [place] 8731182 Line Lead: Merlin Charles MD #### SWCGP #### [address] [address] Line Lead: Antonino Nova MD Ketones Ql (U) Negative Normal NEG [facility] Comment on above: Performed By: #### U MICAO, UA #### [facility] [address] [place] [address] [address] [place], [place] [phone] Line Lead: Merlin Charles MD #### SWCGP #### [address] [address] Line Lead: Antonino Nova MD Leukocyte esterase Test strip Ql (U) MODERATE Abnormal NEG [facility] Comment on above: Performed By: #### U MICAO, UA #### [facility] [address] [place] [address] [place] [phone] Line Lead: Merlin Charles MD #### SWCGP #### [address] [address] Line Lead: Antonino Nova MD Nitrite,Ur Positive Abnormal NEG [facility] Comment on above: Performed By: #### U MICAO, UA #### [facility] [address] [place] [address] [address] [place], [place] 5669283 Line Lead: Merlin hCarles MD #### SWCGP #### [address] [address] Line Lead: Antonino Nova MD PH,Ur 6.0 Normal 5.0-9.0 [facility] Comment on above: Performed By: #### U MICAO, UA #### [facility] [address] [place] [address] [address], [place] [phone] Line Lead: Merlin Charles MD #### SWCGP #### [address] [address] Line Lead: Antonino Nova MD Protein Ql (U) Negative Normal NEG [facility] Comment on above: Performed By: #### U MICAO, UA #### [facility] [address] [place], [place] [phone] Line Lead: Merlin Charles MD #### SWCGP #### [address] [phone] Line Lead: Antonino Nova MD Spec. Louise,Ur 1.025 High 1.010-1.020 [facility] Comment on above: Performed By: #### U MICAO, UA #### [facility] [address] [place] [phone] Line Lead: Merlin Charles MD #### SWCGP #### [address] [phone] Line Lead: Antonino Nova MD Urobilinogen,Ur Normal Normal NORM [facility] Comment on above: Performed By: #### U MICAO, UA #### [facility] [address] [place] [address] Dr. [place] [phone] Line Lead: Merlin Charles MD #### SWCGP #### [address] [address] Line Lead: Antonino Nova MD Urinalysis,Microon 3 Bacteria 3+ Abnormal NONE [facility] Comment on above: Performed By: #### U MICAO, UA #### [facility] [address] [place], [place] [phone] Line Lead: Merlin Charles MD #### SWCGP #### [address] [address] Line Lead: Antonino Nova MD Epithelial cells LM Ql (Urine sed) 0 TO 2 Normal 0-25 [facility] Comment on above: Performed By: #### U MICAO, UA #### [facility] [address] [place], [place] [phone] Line Lead: Merlin Charles MD #### SWCGP #### [address] [address] Line Lead: Antonino Nova MD Mucus Strands 1+ Abnormal NONE [facility] Comment on above: Performed By: #### U KIMO, UA #### [facility] [address] [place] [address] [address], [place] [phone] Line Lead: Merlin Charles MD #### SWCGP #### [address] [address] Line Lead: Antonino Nova MD Urine RBC's 0 TO 2 Normal 0-2 [facility] Comment on above: Performed By: #### U ANKITA, UA #### [facility] [address] [place] [address] [place] [address] Line Lead: Merlin Charles MD #### SWCGP #### [address] [address] Line Lead: Antonino Nova MD Urine WBC's 10 TO 20 Normal 0-5 [facility] Comment on above: Performed By: #### U ANKITA, UA #### [facility] [address] [place] [address] Dr[place], [place] [phone] Line Lead: Merlin Charles MD #### SWCGP #### [address] [address] Line Lead: Antonino Nova MD HCV RNA,Quant,PCRon 09-15-19 23 HCV Quant [id number] IU/mL Normal [facility] Comment on above: Performed By: #### H CVQN #### [address] [address] Line Lead: Antonino Nova MD [facility] [address] [place] [address] Line Lead: Merlin Charles MD HCV RNA,Quant Detected Abnormal NOTDET [facility] Comment on above: Result Comment: INTERPRETIVE [...] (HCT/P). Performed By: #### H CVQN #### [address] [address] Line Lead: Antonino Nova MD [facility] [address] [place] [address] [place] [address] Line Lead: Merlin Charles MD HCV,RNA Log 6.95 Log IU/mL Normal [facility] Comment on above: Performed By: #### H CVQN #### [address] [address] Line Lead: Antonino Nova MD [facility] [address] [place] [address] Line Lead: Merlin Charles MD [facility] 09-13-2022 Erythrocyte distribution width (RBC) [Ratio] 17.7 % High 11.8-14.4 [facility] Comment on above: Performed By: #### P HEP, HIVCMB #### [address] [address] Line Lead: Antonino Nova MD #### BMPCMP, BMP, CBC #### [address] [place] [address] Line Lead: Merlin Charles MD Hematocrit (Bld) [Volume fraction] 39.8 % Normal 36.3-47.1 [facility] Comment on above: Performed By: #### P HEP, HIVCMB #### [address] [phone] Line Lead: Antonino Nova MD #### BMPCMP, BMP, CBC #### [address] [place] [address] Line Lead: Merlin Charles MD Hemoglobin (Bld) [Mass/Vol] 13.5 g/dL Normal 11.9-15.1 [facility] Comment on above: Performed By: #### P HEP, HIVCMB #### [address] [address] Line Lead: Antonino Nova MD #### BMPCMP, BMP, CBC #### [address] [place] [address]2683 Line Lead: Merlin Charles MD MCH (RBC) [Entitic mass] 35.6 pg High 25.2-33.5 [facility] Comment on above: Performed By: #### P HEP, HIVCMB #### [address] [phone] Line Lead: Antonino Nova MD #### BMPCMP, BMP, CBC #### [address] [place] [address] Line Lead: Merlin Charles MD MCHC (RBC) [Mass/Vol] 33.9 g/dL Normal 28.4-34.8 [facility] Comment on above: Performed By: #### P HEP, HIVCMB #### [address] [address] Line Lead: Antonino Nova MD #### BMPCMP, BMP, CBC #### [address] [place] [address] Line Lead: Merlin Charles MD MCV (RBC) [Entitic vol] 105.0 fL High 82.6-102.9 [facility] Comment on above: Performed By: #### P HEP, HIVCMB #### [address] [address] Line Lead: Antonino Nova MD #### BMPCMP, BMP, CBC #### [address] [place] [address]2683 Line Lead: Merlin Charles MD NRBC Automated 0.0 per 100 WBC Normal 0.0 [facility] Comment on above: Performed By: #### P HEP, HIVCMB #### [address] [address] Line Lead: Antonino Nova MD #### BMPCMP, BMP, CBC #### [address] [place] 0152683 Line Lead: Merlin Charles MD Platelet mean volume (Bld) [Entitic vol] 10.2 fL Normal 8.1-13.5 [facility] Comment on above: Performed By: #### P HEP, HIVCMB #### [address] [address] Line Lead: Antonino Nova MD #### BMPCMP, BMP, CBC #### [address] [place] [address] Line Lead: Merlin Charles MD Platelets (Bld) [#/Vol] 128 10*3/uL Low 138-453 [facility] Comment on above: Performed By: #### P HEP, HIVCMB #### [address] [place], [place] 7385608 Line Lead: Antonino Nova MD #### BMPCMP, BMP, CBC #### [address] [place], [place] 1041683 Line Lead: Merlin Charles MD RBC (Bld) [#/Vol] 3.79 10*6/uL Low 3.95-5.11 [facility] Comment on above: Performed By: #### P HEP, HIVCMB #### [address] [address] Line Lead: Antonino Nova MD #### BMPCMP, BMP, CBC #### [address] [place] [address] Line Lead: Merlin Charles MD WBC (Bld) [#/Vol] 3.7 10*3/uL Normal 3.5-11.3 [facility] Comment on above: Performed By: #### P HEP, HIVCMB #### [address] [id number] Line Lead: Antonino Nova MD #### BMPCMP, BMP, CBC #### [address] [place] [address] Line Lead: Merlin Charles MD Hematocrit (Bld) [Volume fraction] 39.8 % 36.3 - 47.1 % [facility] Hemoglobin (Bld) [Mass/Vol] 13.5 g/dL 11.9 - 15.1 g/dL [facility] Interpretation and review of laboratory results Abnormal [facility] MCH (RBC) [Entitic mass] 35.6 pg High 25.2 - 33.5 pg [facility] MCHC (RBC) [Mass/Vol] 33.9 g/dL 28.4 - 34.8 g/dL [facility] MCV (RBC) [Entitic vol] 105.0 fL High 82.6 - 102.9 fL [facility] NRBC Automated 0.0 0.0 per 100 WBC [facility] Platelet distribution width (Bld) [Ratio] 17.7 % High 11.8 - 14.4 % [facility] Platelet mean volume (Bld) [Entitic vol] 10.2 fL 8.1 - 13.5 fL [facility] Platelets (Bld) [#/Vol] 128 10*3/uL Low [facility] RBC (Bld) [#/Vol] 3.79 10*6/uL Low 3.95 - 5.1 1 m/uL [facility] WBC (Bld) [#/Vol] 3.7 10*3/uL [facility] Comp Metabolic Profon 2022 Albumin [Mass/Vol] 4.1 g/dL Normal 3.5-5.2 [facility] Comment on above: Performed By: #### P HEP, HIVCMB #### [place] [address] Line Lead: Antonino Nova MD #### BMPCMP, BMP, CBC #### [facility] [address] [place] [address] [place] [address] Line Lead: Merlin Charles MD Albumin/Glob Ratio 2.1 Normal 1.0-2.5 [facility] Comment on above: Performed By: #### P HEP, HIVCMB #### [place] [address] Line Lead: Antonino Nova MD #### BMPCMP, BMP, CBC #### [facility] [address] [place] [address] Line Lead: Merlin Charles MD Alkaline Phos 67 U/L Normal 35-104 [facility] Comment on above: Performed By: #### P HEP, HIVCMB #### [address] [address] Line Lead: Antonino Nova MD #### BMPCMP, BMP, CBC #### [facility] [address] [place], [place] 1094783 Line Lead: Merlin Charles MD ALT [Catalytic activity/Vol] 41 U/L High 5-33 [facility] Comment on above: Performed By: #### P HEP, HIVCMB #### [address] [address] Line Lead: Antonino Nova MD #### BMPCMP, BMP, CBC #### [facility] [address] [place] [address] Line Lead: Merlin Charles MD Anion gap [Moles/Vol] 6 mmol/L Low 9-17 [facility] Comment on above: Performed By: #### P HEP, HIVCMB #### [address] [id number] Line Lead: Antonino Nova MD #### BMPCMP, BMP, CBC #### [facility] [address] [place] [address]2683 Line Lead: Merlin Charles MD AST [Catalytic activity/Vol] 52 U/L High <32 [facility] Comment on above: Performed By: #### P HEP, HIVCMB #### [address] [address] Line Lead: Antonino Nova MD #### BMPCMP, BMP, CBC #### [facility] [address] [place] [address] Line Lead: Merlin Charles MD Bilirubin [Mass/Vol] 0.6 mg/dL Normal 0.3-1.2 [facility] Comment on above: Performed By: #### P HEP, HIVCMB #### [address] [address] Line Lead: Antonino Nova MD #### BMPCMP, BMP, CBC #### [facility] [address] [place], [place] [phone] Line Lead: Merlin Charles MD BUN/CRE Ratio 16 Normal 9-20 [facility] Comment on above: Performed By: #### P HEP, HIVCMB #### [address] [address] Line Lead: Antonino Nova MD #### BMPCMP, BMP, CBC #### [facility] [address] [place], [place] 1292183 Line Lead: Merlin Charles MD Calcium [Mass/Vol] 10.0 mg/dL Normal 8.6-10.4 [facility] Comment on above: Performed By: #### P HEP, HIVCMB #### [address] [address] Line Lead: Antonino Nova MD #### BMPCMP, BMP, CBC #### [facility] [address] [place], [place] 3953383 Line Lead: Merlin Charles MD Chloride [Moles/Vol] 108 mmol/L High 98-107 [facility] Comment on above: Performed By: #### P HEP, HIVCMB #### [address] [address] Line Lead: Antonino Nova MD #### BMPCMP, BMP, CBC #### [facility] [address] [place], [place] 2148283 Line Lead: Merlin Charles MD CO2 [Moles/Vol] 28 mmol/L Normal 20-31 [facility] Comment on above: Performed By: #### P HEP, HIVCMB #### [address] [address] Line Lead: Antonino Nova MD #### BMPCMP, BMP, CBC #### [facility] [address] [place] [address] [place], [place] [phone] Line Lead: Merlin Charles MD Creatinine [Mass/Vol] 0.61 mg/dL Normal 0.50-0.90 [facility] Comment on above: Performed By: #### P HEP, HIVCMB #### [address] [phone] Line Lead: Antonino Nova MD #### BMPCMP, BMP, CBC #### [address] [place] [address] Line Lead: Merlin Charles MD GFR/1.73 sq M.predicted among non-blacks MDRD (S/P/Bld) [Vol rate/Area] mL/min/{1.73_m2} Normal >60 [facility] Comment on above: Result Comment: These [...] Performed By: #### P HEP, HIVCMB #### [address] [id number] Line Lead: Antonino Nova MD #### BMPCMP, BMP, CBC #### [facility] [address] [place] [address] [place] [address] Line Lead: Merlin Charles MD Glucose [Mass/Vol] 87 mg/dL Normal 70-99 [facility] Comment on above: Performed By: #### P HEP, HIVCMB #### [address] [id number] Line Lead: Antonino Nova MD #### BMPCMP, BMP, CBC #### [address] [place], [place] 5200783 Line Lead: Merlin Charles MD Potassium [Moles/Vol] 5.0 mmol/L Normal 3.7-5.3 [facility] Comment on above: Performed By: #### P HEP, HIVCMB #### [address] [address] Line Lead: Antonino Nova MD #### BMPCMP, BMP, CBC #### [address] [place], [place] 5904383 Line Lead: Merlin Charles MD Protein [Mass/Vol] 6.1 g/dL Low 6.4-8.3 [facility] Comment on above: Performed By: #### P HEP, HIVCMB #### [address] [phone] Line Lead: Antonino Nova MD #### BMPCMP, BMP, CBC #### [address] [place], [place] 4441083 Line Lead: Merlin Charles MD Sodium [Moles/Vol] 142 mmol/L Normal 135-144 [facility] Comment on above: Performed By: #### P HEP, HIVCMB #### [address] [address] Line Lead: Antonino Nova MD #### BMPCMP, BMP, CBC #### [address] [place], [place] 7624883 Line Lead: Merlin Charles MD Urea nitrogen [Mass/Vol] 10 mg/dL Normal 6-20 [facility] Comment on above: Performed By: #### P HEP, HIVCMB #### [address] [address] Line Lead: Antonino Nova MD #### BMPCMP, BMP, CBC #### [facility] [address] [place] [address] Line Lead: Merlin Charles MD [facility] Metabolic Pane [facility] 09-13-2022 Albumin [Mass/Vol] 4.1 g/dL 3.5 - 5.2 g/dL [facility] Albumin/Globulin [Mass ratio] 2.1 {ratio} 1.0 - 2.5 [facility] ALP [Catalytic activity/Vol] 67 U/L 35 - 104 U/L [facility] ALT [Catalytic activity/Vol] 41 U/L High 5 - 33 U/L [facility] Anion gap [Moles/Vol] 6 mmol/L Low 9 - 17 mmol/L [facility] AST [Catalytic activity/Vol] 52 U/L High NINF - 32 U/L [facility] Bilirubin [Mass/Vol] 0.6 mg/dL 0.3 - 1 .2 mg/dL [facility] Calcium [Mass/Vol] 10.0 mg/dL 8.6 - 10. 4 mg/dL [facility] Chloride [Moles/Vol] 108 mmol/L High 98 - 10 7 mmol/L [facility] CO2 [Moles/Vol] 28 mmol/L 20 - 31 mmol/L [facility] Creatinine [Mass/Vol] 0.61 mg/dL 0.50 - 0.90 mg/dL [facility] GFR/1.73 sq M.predicted MDRD (S/P/Bld) [Vol rate/Area] - PINF [facility] Comment on above: These results [...] [Mass/Vol] 87 mg/dL 70 - 99 mg/dL [facility] Interpretation and review of laboratory results Abnormal [facility] Potassium [Moles/Vol] 5.0 mmol/L 3.7 - 5.3 mmol/L [facility] Protein [Mass/Vol] 6.1 g/dL Low 6.4 - 8.3 g/dL [facility] Sodium [Moles/Vol] 142 mmol/L 135 - 144 mmol/L [facility] Urea nitrogen [Mass/Vol] 10 mg/dL 6 - 20 mg/dL [facility] Urea nitrogen/Creatinine (Bld) [Mass ratio] 16 9 - 20 [facility] HCG Qualitative, Serumon hCG Qual Negative NEGATIVE [facility] Comment on above: Specimens with hCG l evels near the threshold of the test (25 mIU/mL) may give a negative or indeterminate result. In such cases, another test should be performed with a new specimen in 48-72 hours. If early is suspected clinically in this setting, correlation with quantitative serum b-hCG level is suggested. [facility] has confirmed the use of plasma for this test. This has not been cleared or approved by the U.S. Food and Drug Administration. The FDA has determined that such clearance is not necessary. [facility] HCG Screen, Bloodon 09-14-19 HCG Screen, Blood Negative Normal NEG [facility] Comment on above: Result Comment: Spec imens with hCG levels near the threshold of the test (25 mIU/mL) may give a negative or indeterminate result. In such cases, another test should be performed with a new specimen in 48-72 hours. If early is suspected clinically in this setting, correlation with quantitative serum b-hCG level is suggested. [employer] has confirmed the use of plasma for this test. This has not been cleared or approved by the U.S. Food and Drug Administration. The FDA has determined that such clearance is not necessary. Performed By: #### P HEP, HIVCMB #### [employer] [address] [place] [address] Line Lead: Antonino Nova MD #### BMPCMP, BMP, CBC #### [facility] [address] [place] [address] Line Lead: Merlin Charles MD HCV RNA,Quant,PCRon 09-14-19 23 Source .PLASMA Normal [facility] Comment on above: Performed By: #### H CVQN #### [address] [address] Line Lead: Antonino Nova MD [facility] [address] [place] [address] [place] [address] Line Lead: Merlin Charles MD HIV Ag/Abon 09-13-2022 HIV Ag/Ab Non-Reactive Normal NR [facility] Comment on above: Result Comment: No l aboratory evidence of HIV infection. If acute HIV infection is suspected, consider testing for HIV-1 RNA. Performed By: #### P HEP, HIVCMB #### [address] [address] Line Lead: Antonino Nova MD #### BMPCMP, BMP, CBC #### [address] [place] [address] Line Lead: Merlin Charles MD HIV Screenon 09-13-2022 HIV 1+2 Ab+HIV1 p24 Ag IA Ql Non-Reactive NONREACTIVE [facility] Comment on above: No laboratory eviden ce of HIV infection. If acute HIV infection is suspected, consider testing for HIV-1 RNA. [facility] Hepatitis Acute Jonnie 09-13 Hep A Ab,IgM Non-Reactive Normal [facility] Comment on above: Performed By: #### P HEP, HIVCMB #### [address] [address] Line Lead: Antonino Nova MD #### BMPCMP, BMP, CBC #### [address] [place] [address] Line Lead: Merlin Charles MD Hep B Core Ab,IgM Non-Reactive Normal [facility] Comment on above: Performed By: #### P HEP, HIVCMB #### [address] [address] Line Lead: Antonino Nova MD #### BMPCMP, BMP, CBC #### [facility] [address] [place] [address] [address] [place], [place] [phone] Line Lead: Merlin Charles MD Hep B Surf Ag Non-Reactive Normal [facility] Comment on above: Performed By: #### P HEP, HIVCMB #### [id number] [place] [address] Line Lead: Antonino Nova MD #### BMPCMP, BMP, CBC #### [facility] [address] [place] [address] [address] [place], [place] [phone] Line Lead: Merlin Charles MD Hep C Ab Reactive Abnormal [facility] Comment on above: Result Comment: The [...] Performed By: #### P HEP, HIVCMB #### [id number] [place] [address] Line Lead: Antonino Nova MD #### BMPCMP, BMP, CBC #### [address] [place], [place] [id number] Line Lead: Merlin Charles MD Hepatitis Panel, Acute HAV IgM Ql (S) Non-Reactive NONREACTIVE [facility] HBV core IgM Ql (S) Non-Reactive NONREACTIVE [facility] HBV surface Ag IA Ql Non-Reactive NONREACTIVE [facility] HCV Ab IA Ql Reactive Abnormal NONREACTIVE [facility] Comment on above: The hepatitis [...] and review of laboratory results Abnormal [facility] Comp Metabolic Addonon 04-20 Albumin [Mass/Vol] 4.5 g/dL Normal 3.5-5.2 [facility] Comment on above: Performed By: #### P HEP, HIVCMB #### [address] [address] Line Lead: Antonino Nova MD #### BMPCMP, BMP, CBC #### [facility] [address] [place] [address] [address] [place], [place] [id number] Line Lead: Merlin Charles MD Albumin/Glob Ratio 2.0 Normal 1.0-2.5 [facility] Comment on above: Performed By: #### P HEP, HIVCMB #### [address] [address] Line Lead: Antonino Nova MD #### BMPCMP, BMP, CBC #### [facility] [address] [place] [address] [address] [place], [place] [phone] Line Lead: Merlin Charles MD Alkaline Phos 81 U/L Normal 35-104 [facility] Comment on above: Performed By: #### P HEP, HIVCMB #### [address] [address] Line Lead: Antonino Nova MD #### BMPCMP, BMP, CBC #### [facility] [address] [place] [address] [place] [address] Line Lead: Merlin Charles MD ALT [Catalytic activity/Vol] 106 U/L High 5-33 [facility] Comment on above: Performed By: #### P HEP, HIVCMB #### [address] [id number] Line Lead: Antonino Nova MD #### BMPCMP, BMP, CBC #### [address] [place] [address] Line Lead: Merlin Charles MD AST [Catalytic activity/Vol] 77 U/L High <32 [facility] Comment on above: Performed By: #### P HEP, HIVCMB #### [address] [address] Line Lead: Antonino Nova MD #### BMPCMP, BMP, CBC #### [address] [place] [address] Line Lead: Merlin Charles MD Bilirubin [Mass/Vol] 0.6 mg/dL Normal 0.3-1.2 [facility] Comment on above: Performed By: #### P HEP, HIVCMB #### [address] [id number] Line Lead: Antonino Nova MD #### BMPCMP, BMP, CBC #### [address] [place] [address] Line Lead: Merlin Charles MD Protein [Mass/Vol] 6.7 g/dL Normal 6.4-8.3 [facility] Comment on above: Performed By: #### P HEP, HIVCMB #### [address] [address] Line Lead: Antonino Nova MD #### BMPCMP, BMP, CBC #### [address] [place] [address] Line Lead: Merlin Charles MD HCV RNA,Quant,PCRon 04-20-20 HCV Quant 1,330,000 IU/mL Normal [facility] Comment on above: Performed By: #### P HEP, HIVCMB #### [address] [place] [address] Line Lead: Antonino Nova MD #### BMPCMP, BMP, CBC #### [facility] [address] [place] [address] [place] [address] Line Lead: Merlin Charles MD HCV RNA,Quant Detected Abnormal NOTDET [facility] Comment on above: Result Comment: HCV [...] Performed By: #### P HEP, HIVCMB #### [address] [address] Line Lead: Antonino Nova MD #### NUCMNU Roman, CBC #### [facility] [address] [place] [address] [place] [address] Line Lead: Merlin Charles MD HCV,RNA Log 6.12 Log IU/mL Normal [facility] Comment on above: Performed By: #### P HEP, HIVCMB #### [address] [address] Line Lead: Antonino Nova MD #### BMPCMP BMP, CBC #### [facility] [address] [place] [address] [place] [address] Line Lead: Merlin Charles MD Basic Metabolic Profon 04-19 Anion gap [Moles/Vol] 7 mmol/L Low 9-17 [facility] Comment on above: Performed By: #### P HEP, HIVCMB #### [address] [address] Line Lead: Antonino Nova MD #### BMPCMP, BMP, CBC #### [address] [place], [place] [id number] Line Lead: Merlin Charles MD BUN/CRE Ratio 20 Normal 9-20 [facility] Comment on above: Performed By: #### P HEP, HIVCMB #### [address] [address] Line Lead: Antonino Nova MD #### BMPCMP, BMP, CBC #### [address] [place] [address] Line Lead: Merlin Charles MD Calcium [Mass/Vol] 9.9 mg/dL Normal 8.6-10.4 [facility] Comment on above: Performed By: #### P HEP, HIVCMB #### [address] [address] Line Lead: Antonino Nova MD #### BMPCMP, BMP, CBC #### [address] [place] [address] Line Lead: Merlin Charles MD Chloride [Moles/Vol] 106 mmol/L Normal 98-107 [facility] Comment on above: Performed By: #### P HEP, HIVCMB #### [address] [address] Line Lead: Antonino Nova MD #### BMPCMP, BMP, CBC #### [address] [place] [address] Line Lead: Merlin Charles MD CO2 [Moles/Vol] 29 mmol/L Normal 20-31 [facility] Comment on above: Performed By: #### P HEP, HIVCMB #### [address] [place] [address] Line Lead: Antonino Nova MD #### BMPCMP, BMP, CBC #### [facility] [address] [place] [address] Line Lead: Merlin Charles MD Creatinine [Mass/Vol] 0.79 mg/dL Normal 0.50-0.90 [facility] Comment on above: Performed By: #### P HEP, HIVCMB #### [address] [address] Line Lead: Antonino Nova MD #### BMPCMP, BMP, CBC #### [facility] [address] [place] [address] Line Lead: Merlin Charles MD GFR/1.73 sq M.predicted among non-blacks MDRD (S/P/Bld) [Vol rate/Area] mL/min/{1.73_m2} Normal >60 [facility] Comment on above: Result Comment: Effective [...] Performed By: #### P HEP, HIVCMB #### [facility] [address] [place] [address] Line Lead: Antonino Nova MD #### BMPCMP, BMP, CBC #### [facility] [address] [place] [address] Line Lead: Merlin Charles MD Glucose [Mass/Vol] 98 mg/dL Normal 70-99 [facility] Comment on above: Performed By: #### P HEP, HIVCMB #### [address] [address] Line Lead: Antonino Nova MD #### BMPCMP, BMP, CBC #### [address] [place] [address] Line Lead: Merlin Charles MD Potassium [Moles/Vol] 4.6 mmol/L Normal 3.7-5.3 [facility] Comment on above: Performed By: #### P HEP, HIVCMB #### [address] [address] Line Lead: Antonino Nova MD #### BMPCMP, BMP, CBC #### [address] [place] [phone] Line Lead: Merlin Charles MD Sodium [Moles/Vol] 142 mmol/L Normal 135-144 [facility] Comment on above: Performed By: #### P HEP, HIVCMB #### [address] [address] Line Lead: Antonino Nova MD #### BMPCMP, BMP, CBC #### [address] [place] [address] Line Lead: Merlin Charles MD Urea nitrogen [Mass/Vol] 16 mg/dL Normal 6-20 [facility] Comment on above: Performed By: #### P HEP, HIVCMB #### [address] [address] Line Lead: Antonino Nova MD #### BMPCMP, BMP, CBC #### [address] [place] [id number] Line Lead: Merlin Charles MD [facility] Erythrocyte distribution width (RBC) [Ratio] 15.2 % High 11.8-14.4 [facility] Comment on above: Performed By: #### P HEP, HIVCMB #### [address] [address] Line Lead: Antonino Nova MD #### BMPCMP, BMP, CBC #### [address] [place], [place] [id number] Line Lead: Merlin Charles MD Hematocrit (Bld) [Volume fraction] 41.4 % Normal 36.3-47.1 [facility] Comment on above: Performed By: #### P HEP, HIVCMB #### [address] [address] Line Lead: Antonino Nova MD #### BMPCMP, BMP, CBC #### [address] [place] [address] Line Lead: Merlin Charles MD Hemoglobin (Bld) [Mass/Vol] 13.3 g/dL Normal 11.9-15.1 [facility] Comment on above: Performed By: #### P HEP, HIVCMB #### [address] [address] Line Lead: Antonino Nova MD #### BMPCMP, BMP, CBC #### [address] [place] [address] Line Lead: Merlin Charles MD MCH (RBC) [Entitic mass] 33.8 pg High 25.2-33.5 [facility] Comment on above: Performed By: #### P HEP, HIVCMB #### [address] [address] Line Lead: Antonino Nova MD #### BMPCMP, BMP, CBC #### [address] [place] [address] Line Lead: Merlin Charles MD MCHC (RBC) [Mass/Vol] 32.1 g/dL Normal 28.4-34.8 [facility] Comment on above: Performed By: #### P HEP, HIVCMB #### [place] [address] [place], [place] [id number] Line Lead: Antonino Nova MD #### BMPCMP, BMP, CBC #### [facility] [address] [place] [address] [place] [id number] Line Lead: Merlin Charles MD MCV (RBC) [Entitic vol] 105.3 fL High 82.6-102.9 [facility] Comment on above: Performed By: #### P HEP, HIVCMB #### [address] [id number] Line Lead: Antonino Nova MD #### BMPCMP, BMP, CBC #### [address] [place] [id number] Line Lead: Merlin Charles MD NRBC Automated 0.0 per 100 WBC Normal 0.0 [facility] Comment on above: Performed By: #### P HEP, HIVCMB #### [address] [id number] Line Lead: Antonino Nova MD #### BMPCMP, BMP, CBC #### [address] [place] [id number] Line Lead: Merlin Charles MD Platelet mean volume (Bld) [Entitic vol] 9.1 fL Normal 8.1-13.5 [facility] Comment on above: Performed By: #### P HEP, HIVCMB #### [address] [id number] Line Lead: Antonino Nova MD #### BMPCMP, BMP, CBC #### [facility] [address] [place] [address] [place] [id number] Line Lead: Merlin Charles MD Platelets (Bld) [#/Vol] 203 10*3/uL Normal 138-453 [facility] Comment on above: Performed By: #### P HEP, HIVCMB #### [address] [address] Line Lead: Antonino Nova MD #### BMPCMP, BMP, CBC #### [address] [place] [id number] Line Lead: Merlin Charles MD RBC (Bld) [#/Vol] 3.93 10*6/uL Low 3.95-5.11 [facility] Comment on above: Performed By: #### P HEP, HIVCMB #### [address] [address] Line Lead: Antonino Nova MD #### BMPCMP, BMP, CBC #### [address] [place] [phone] Line Lead: Merlin Charles MD WBC (Bld) [#/Vol] 4.1 10*3/uL Normal 3.5-11.3 [facility] Comment on above: Performed By: #### P HEP, HIVCMB #### [address] [address] Line Lead: Antonino Nova MD #### BMPCMP, BMP, CBC #### [address] [place] [phone] Line Lead: Merlin Charles MD HCV RNA,Quant,PCRon 04-19-20 22 Source .PLASMA Normal [facility] Comment on above: Performed By: #### P HEP, HIVCMB #### [address] [address] Line Lead: Antonino Nova MD #### BMPCMP, BMP, CBC #### [address] [place] [phone] Line Lead: Merlin Charles MD HIV Ag/Abon 04-19-2022 HIV Ag/Ab Non-Reactive Normal [facility] Comment on above: Result Comment: No l aboratory evidence of HIV infection. If acute HIV infection is suspected, consider testing for HIV-1 RNA. Performed By: #### P HEP, HIVCMB #### [address] [address] Line Lead: Antonino Nova MD #### BMPCMP, BMP, CBC #### [address] [place], [place] [phone] Line Lead: Merlin Charles MD Hepatitis Acute [facility] 04-19 Hep A Ab,IgM Non-Reactive Normal [facility] Comment on above: Performed By: #### P HEP, HIVCMB #### [address] [address] Line Lead: Antonino Nova MD #### BMPCMP, BMP, CBC #### [address] [place] [address] Line Lead: Merlin Charles MD Hep B Core Ab,IgM Non-Reactive Normal [facility] Comment on above: Performed By: #### P HEP, HIVCMB #### [address] [address] Line Lead: Antonino Nova MD #### BMPCMP, BMP, CBC #### [address] [place], [place] [phone] Line Lead: Merlin Charles MD Hep B Surf Ag Non-Reactive Normal [facility] Comment on above: Performed By: #### P HEP, HIVCMB #### [address] [address] Line Lead: Antonino Nova MD #### BMPCMP, BMP, CBC #### [address] [place] [address] Line Lead: Merlin Charles MD Hep C Ab Reactive Abnormal [facility] Comment on above: Result Comment: The [...] Performed By: #### P HEP, HIVCMB #### [facility] [address] [place], [place] [phone] Line Lead: Antonino Nova MD #### BMPCMP, BMP, CBC #### [address] [place] [address] Line Lead: Merlin Charles MD CBCon 11-09-2021 Hematocrit (Bld) [Volume fraction] 39.5 % 36.3 - 47.1 % [facility] Hemoglobin (Bld) [Mass/Vol] 12.6 g/dL 11.9 - 15.1 g/dL [facility] Interpretation and review of laboratory results Abnormal [facility] MCH (RBC) [Entitic mass] 32.6 pg 25.2 - 33.5 pg [facility] MCHC (RBC) [Mass/Vol] 31.9 g/dL 28.4 - 34.8 g/dL [facility] MCV (RBC) [Entitic vol] 102.3 fL 82.6 - 102.9 fL [facility] NRBC Automated 0.0 0.0 per 100 WBC [facility] Platelet distribution width (Bld) [Ratio] 14.9 % High 11.8 - 14.4 % [facility] Platelet mean volume (Bld) [Entitic vol] 9.7 fL 8.1 - 13.5 fL [facility] Platelets (Bld) [#/Vol] 175 10*3/uL [facility] RBC (Bld) [#/Vol] 3.86 10*6/uL Low 3.95 - 5.1 1 m/uL [facility] WBC (Bld) [#/Vol] 3.4 10*3/uL Low [facility] Comprehensive Metabolic Pane elvin 11-09-2021 Albumin [Mass/Vol] 4.7 g/dL 3.5 - 5.2 g/dL [facility] Albumin/Globulin [Mass ratio] 2.5 {ratio} [facility] ALP (Bld) [Catalytic activity/Vol] 76 U/L 35 - 104 U/L [facility] ALT [Catalytic activity/Vol] 50 U/L High 5 - 33 U/L [facility] Anion gap [Moles/Vol] 10 mmol/L 9 - 17 mmol/L [facility] AST [Catalytic activity/Vol] 40 U/L High <32 [facility] Bilirubin [Mass/Vol] 0.55 mg/dL 0.3 - 1 .2 mg/dL [facility] Calcium [Mass/Vol] 10.4 mg/dL 8.6 - 10. 4 mg/dL [facility] Chloride [Moles/Vol] 107 mmol/L 98 - 10 7 mmol/L [facility] CO2 [Moles/Vol] 25 mmol/L 20 - 31 mmol/L [facility] Creatinine [Mass/Vol] 0.72 mg/dL 0.50 - 0.90 mg/dL [facility] Free PSA/Total PSA [Mass fraction] 6.6 g/dL 6.4 - 8.3 g/dL [facility] GFR >60 >60 mL/min [facility] GFR Non- >60 >60 mL/min [facility] Glucose [Mass/Vol] 76 mg/dL 70 - 99 mg/dL [facility] Interpretation and review of laboratory results Abnormal [facility] Potassium [Moles/Vol] 3.9 mmol/L 3.7 - 5.3 mmol/L [facility] Sodium [Moles/Vol] 142 mmol/L 135 - 144 mmol/L [facility] Urea nitrogen (BldV) [Mass/Vol] 12 mg/dL 6 - 20 mg/dL [facility] Urea nitrogen/Creatinine (Bld) [Mass ratio] 17 [facility] HCG Qualitative, Serumon hCG Qual Negative NEGATIVE [facility] Comment on above: Specimens with hCG l evels near the threshold of the test (25 mIU/mL) may give a negative or indeterminate result. In such cases, another test should be performed with a new specimen in 48-72 hours. If early is suspected clinically in this setting, correlation with quantitative serum b-hCG level is suggested. [facility] has confirmed the use of plasma for this test. This has not been cleared or approved by the U.S. Food and Drug Administration. The FDA has determined that such clearance is not necessary. [facility] HIV Screenon 11-09-2021 HIV Ag/Ab Non-Reactive NONREACTIVE [facility] Comment on above: No laboratory eviden ce of HIV infection. If acute HIV infection is suspected, consider testing for HIV-1 RNA. [facility] Hepatitis Panel, Acuteon HAV IgM IA Qn (S) Non-Reactive NONREACTIVE [facility] Hep B Core Ab, IgM Non-Reactive NONREACTIVE [facility] Hepatitis B Surface Ag Non-Reactive NONREACTIVE [facility] Hepatitis C Ab Reactive Abnormal NONREACTIVE [facility] Comment on above: The hepatitis [...] and review of laboratory results Abnormal [facility] Laboratory - Chemistry and C hemistry - challengeon 11-09-2021 GFR/1.73 sq M.predicted MDRD (S/P/Bld) [Vol rate/Area] [facility] Comment on above: Average GFR for 20-2 9 years old: 116 mL/min/1.73sq m Chronic Kidney Disease: <60 mL/min/1.73sq m Kidney failure: <15 mL/min/1.73sq m eGFR calculated using average adult body mass. Additional eGFR calculator available at: http://www.CARGOBR.Linkpass/multiple_crcl_2012.htm Stage 1: Some kidney damage normal GFR Stage 2: Mild kidney damage GFR 60-89 Stage 3: Moderate kidney damage GFR 30-59 Stage 4: Severe kidney damage GFR 15-29 Stage 5: Severe kidney damage GFR <15 ESRD - chronic treatment by dialysis or transplant [facility]sc[facility] Bacteria, UA 4+ Abnormal None [facility] Epithelial Cells UA 2 TO 5 [facility] Interpretation and review of laboratory results Abnormal [facility] Mucus, UA 1+ Abnormal None [facility] RBC, UA 0 TO 2 [facility] WBC, UA 20 TO 50 [facility] Urinalysis with Reflex to Cu ltureon 10-27-2021 Bilirubin Urine SMALL Abnormal NEGATIVE [facility] Color, UA Yellow Yellow [facility] Glucose, Ur Negative NEGATIVE [facility] Interpretation and review of laboratory results Abnormal [facility] Ketones Ql (U) Negative NEGATIVE [facility] Leukocyte esterase Test strip Ql (U) MODERATE Abnormal NEGATIVE [facility] Nitrite, Urine Negative NEGATIVE [facility] pH, UA 6.5 [facility] Protein, UA TRACE Abnormal NEGATIVE [facility] Specific Louise, UA 1.025 High [facility] Turbidity UA SLIGHTLY CLOUDY Abnormal Clear [facility] Urine Hgb Negative NEGATIVE [facility] Urobilinogen, Urine Normal Normal [facility] Microscopic Urinalysison - [facility] Bacteria, UA 1+ Abnormal None [facility] Epithelial Cells UA 5 TO 10 [facility] Interpretation and review of laboratory results Abnormal [facility] RBC, UA 0 TO 2 [facility] WBC, UA 5 TO 10 [facility] Urinalysis with Reflex to Cu ltureon 10-07-2021 Bilirubin Urine Negative NEGATIVE [facility] Color, UA Yellow Yellow [facility] Glucose, Ur Negative NEGATIVE [facility] Interpretation and review of laboratory results Abnormal [facility] Ketones Ql (U) Negative NEGATIVE [facility] Leukocyte esterase Test strip Ql (U) MODERATE Abnormal NEGATIVE [facility] Nitrite, Urine Negative NEGATIVE [facility] pH, UA 5.5 [facility] Protein, UA Negative NEGATIVE [facility] Specific Louise, UA 1.025 High [facility] Turbidity UA Clear Clear [facility] Urine Hgb Negative NEGATIVE [facility] Urobilinogen, Urine Normal Normal [facility] SEROLOGYOrdered By: Suly Raman on 07-24-2021 HCG.beta subunit (U) [Moles/Vol] Negative Normal [facility] Man Sero Tobacco Screening.on 022 Adult depression screening assessment Yes [facility] [employer] 250 DO Work Phone: Tobacco use status [facility]PH[facility] a) Yes [facility] 250 DO Work Phone: [phone] Tobacco Screening. Yes [facility] 250 DO Work Phone: Tobacco Screening. 3-Nearly every day [facility] 250 DO Work Phone: [phone] Tobacco Screening. 2-More than half the days [facility] 250 DO Work Phone: [phone] Tobacco Screening. 0-Not at all [facility] 250 DO Work Phone: [phone] Tobacco Screening. Very Difficult [facility] 250 DO Work Phone: XR SHOULDER LT [...] DURON Date: 2021-07-04 02:09 Normal [facility] Vital Signs Date Time Vital Sign Value Performing Clinician Facility 02-21-2024 13:38-0400 Body height 160.02 cm [facility] 02-21-2024 13:38-0400 Body mass index (BMI) [Ratio] 25.4 kg/m2 [facility] 02-21-2024 13:38-0400 Body weight 65.34 kg [facility] 02-21-2024 13:38-0400 Heart rate 68 /min [facility] 07-06-2023 15:10-0500 Body temperature 98.42 [degF] Adolfo [...] blood pressure 62 mm[Hg] No PCP None [facility] 250 DO Work Phone: 07-09-2021 09:07-0500 Systolic blood pressure 102 mm[Hg] No PCP None [facility] 250 DO Work Phone: 07-09-2021 09:01-0500 Body height 160.02 cm No PCP None [facility] 250 DO Work Phone: 07-09-2021 09:01-0500 Body mass index (BMI) [Ratio] 27.1 kg/m2 No PCP None [facility] 250 DO Work Phone: 07-09-2021 09:01-0500 Body surface area Derived from formula 1.73 m2 No PCP None [facility] 250 DO Work Phone: 07-09-2021 09:01-0500 Body weight 69.4 kg No PCP None [facility] 250 DO Work Phone: 07-09-2021 09:01-0500 Diastolic blood pressure 62 mm[Hg] No PCP None [facility] 250 DO Work Phone: 07-09-2021 09:01-0500 Heart rate 59 /min No PCP None [facility] 250 DO Work Phone: 07-09-2021 09:01-0500 Systolic blood pressure 104 mm[Hg] No PCP None [facility] 250 DO Work Phone: 07-09-2021 09:01-0500 18 1 No PCP None [facility] 250 DO Work Phone: Comment on above: PHQ-9 TS Encounters Encounter Date Encounter Type Care Provider Facility Start: 06-20-2024 End: 06-20-2024 Patient encounter procedure Michael Mejia MD Work Phone: [facility] [place] Work Phone: Start: 06-20-2024 End: 06-20-2024 ambulatory Imad Asaad Facility:[facility] Start: 05-03-2024 End: 05-03-2024 Patient encounter procedure [facility] Work Phone: Start: 05-03-2024 End: 05-03-2024 ambulatory NON STAFF [facility] Work Phone: Start: 04-19-2024 End: 04-19-2024 Patient encounter procedure [facility] [place] Work Phone: Start: 04-19-2024 End: 04-19-2024 ambulatory Imad Asaad Facility:[facility] Start: 04-11-2024 Non-patient / Non-visit Delmy Mejia MD Work Phone: [facility] Work Phone: Start: 03-12-2024 End: 03-12-2024 Emergency department patient visit ISAIAS ADDISON [facility] Start: 02-21-2024 End: 02-21-2024 ambulatory NON STAFF [facility] Work Phone: Start: 02-21-2024 End: 02-21-2024 Patient encounter procedure [facility] Work Phone: Start: 02-09-2024 End: 02-09-2024 Lab Drop off Zev Hamlin [facility] Start: 02-09-2024 End: 02-09-2024 ambulatory Zev Hamlin Facility:[facility] Start: 01-14-2024 End: 01-14-2024 Emergency department patient visit NO PCP NO PCP [facility] Start: 10-24-2023 ambulatory Zev Hamlin Facility:[facility] Start: 10-23-2023 End: 10-23-2023 Emergency department patient visit NO PCP NO PCP [facility] Start: 09-08-2023 End: 09-08-2023 ambulatory NO PCP NO PCP [facility] Start: 09-08-2023 Encounter for genera l adult medical examination without abnormal findings NO NO PCP [facility] Start: 08-19-2023 End: 08-19-2023 Emergency department patient visit NO PCP NO PCP [facility] Start: 07-06-2023 End: 07-06-2023 Emergency department patient visit Adolfo Hernandez [facility] Start: 06-17-2023 End: 06-17-2023 ambulatory PB GARSIA [facility] Start: 02-16-2023 ambulatory [facility] Start: 01-19-2023 ambulatory [facility] Start: 01-06-2023 ambulatory [facility] Start: 12-10-2022 End: 12-11-2022 ambulatory [facility] Start: 11-04-2022 ambulatory [facility] Start: 09-22-2022 End: 09-23-2022 ambulatory [facility] Start: 09-13-2022 End: 09-14-2022 ambulatory [facility] Start: 09-13-2022 End: 09-13-2022 Subsequent hospital visit by physician [facility] Start: 09-10-2022 End: 09-11-2022 ambulatory [facility] Start: 09-10-2022 End: 09-10-2022 Subsequent hospital visit by physician [facility] Start: 04-19-2022 End: 04-20-2022 ambulatory [facility] Start: 11-09-2021 End: 11-09-2021 Subsequent hospital visit by physician [facility] Start: 10-27-2021 End: 10-27-2021 Subsequent hospital visit by physician [facility] Start: 10-06-2021 End: 10-06-2021 Subsequent hospital visit by physician [facility] Start: 07-24-2021 End: 07-24-2021 Admission to same day surgery center Zev Hamlin [facility] Start: 07-09-2021 Office consultation new/estab patient 60 min [facility] Work Phone: Start: 07-04-2021 End: 07-04-[address] RADHA MOE Facility: Start: 06-29-2021 End: 10-15-2021 Recurring Zev Hamlin [facility] Patient encounter status No PCP None [facility] 250 DO Work Phone: Procedures Date Procedure Procedure Detail Performing Clinician Start: 05-03-2024 Ultrasound elastogra phy of liver Start: 04-19-2024 Ultrasonography of liver Start: 09-13-2022 Antibody hiv-1&hiv-2 single result Hipolito Jackie ANIMAL CARE SPECIALIST - [employer]IAL [employer] SALESPERSON Work Phone: Start: 09-13-2022 Comprehensive metabo lic panel Hipolito Jackie ANIMAL CARE SPECIALIST - [employer] SALESPERSON Work Phone: Start: 11-09-2021 Antibody hiv-1&hiv-2 single result Hipolitobart Mejia ANIMAL CARE SPECIALIST - [employer] NEED[employer] SALESPERSON Work Phone: Start: 11-09-2021 Comprehensive metabo lic panel Hipolito Jackie ANIMAL CARE SPECIALIST - [employer]IAL NEED[employer] SALESPERSON Work Phone: Start: 10-27-2021 Urinalysis microscop ic only Hipolito Jackie ANIMAL CARE SPECIALIST - [employer] SALESPERSON Work Phone: Start: 10-27-2021 Urnls dip stick/tabl et rgnt auto w/o microscopy Hipolito Jackie ANIMAL CARE SPECIALIST - [employer] SALESPERSON Work Phone: Start: 10-06-2021 Urinalysis microscop ic only Hipolito Mejia ANIMAL CARE SPECIALIST - [employer] NEED[employer] SALESPERSON Work Phone: Start: 10-06-2021 Urnls dip stick/tabl et rgnt auto w/o microscopy Hipolito Mejia ANIMAL CARE SPECIALIST - B[employer]IAL NEEDS SALESPERSON Work Phone: section No PCP None section Zev Barreto n INSERTION TRANSMITTE R IN CHEST 1 Zev [...] Date Care Activity Detail Author Start: 05-03-2024 [facility] Start: 02-21-2024 Hepatitis A virus Ab [Presence] in Serum by Immunoassay [facility] Start: 02-21-2024 Hepatitis B core antibody measurement [facility] Start: 02-21-2024 Hepatitis B virus surface Ab [Presence] in Serum [facility] Start: 02-21-2024 [facility] Start: 11-30-2022 Influenza vaccination Flu vacc ine (Season Ended) [facility] Start: 01-06-2022 Screening for malign ant neoplasm of cervix [facility] Start: 12-31-2021 Influenza vaccination [facility] Start: 11-25-2021 FUV, Provider: Ruddy Garcia, Status: Pen, Time: 3:00 PM FUV, Provider: Ruddy Garcia, Status: Pen, Time: 3:[address] [facility] Work [facility]: Start: 07-15-2021 ECHO, Provider: DAJA CASTROI ULTRASOUND ,[id number], Status: Pen, Time: 11:30 AM ECHO, Provider: MAXINE CASTROI ULTRASOUND ,[id number], Status: Pen, Time: 11:[address] Work Phone: Start: 07-15-2021 STRESS NUC, Provider : MAXINE CASTROI NUCLEAR 01,[id number], Status: Pen, Time: 11:30 AM STRESS NUC, Provider: MAXINE HHVI NUCLEAR 01,[id number], Status: Pen, Time: 11:30 AM -[facility] 250 DO Work Phone: Start: 01-06-2013 Screening for malign ant neoplasm of cervix Pap [facility] Start: 01-06-2011 DTaP/Tdap/Td vaccine (1 - Tdap) DTaP/Tdap/Td vaccine (1 - Tdap) [facility] Start: 01-06-2010 Hepatitis C screening Hepatitis C sc reen [facility] Start: 2004 Depression Screen Depression Screen [facility] Start: 01-06-1998 Pneumococcal 0-64 ye ars Vaccine (1 - PCV) Pneumococcal 0-64 years Vaccine (1 - PCV) [facility] Start: 01-06-1997 COVID-19 Vaccine (1) COVID-19 Vaccin e (1) [facility] Start: 01-06-1993 Varicella vaccine (1 of 2 - 2-dose childhood series) Varicella vaccine (1 of 2 - 2-dose childhood series) [facility] Start: 1992 COVID-19 Vaccine (#1) COVID-19 Vacci ne (#1) [facility] End: 10-27-2021 Culture, Urine [facility] Work Phone: Comment on above: Once for 1 Occurrenc es starting 10/27/2021 until 10/27/2021 Hepatitis B virus surface Ag [Presence] in Serum or Plasma by Immunoassay [facility] End: 09-13-2022 Hepatitis C RNA, quantitative, PCR [facility] Work Phone: Comment on above: Once for 1 Occurrenc es starting 09/13/2022 until 09/13/2022 Hepatitis C virus Ig G Ab [Presence] in Serum or Plasma by Immunoassay [facility] Hepatitis C virus RN A [Units/volume] (viral load) in Serum or Plasma by BETZAIDA with probe detection [facility] US Liver [facility] Immunizations Immunization Date Immunization Notes Care Provider Seun marc 05-14-2012 influenza, seasonal, injectable Zev Hamlin [facility] Comment on above: Early/Late Reason: P atient Not Available/Off Unit 05-14-2012 measles, mumps and rubella virus vaccine Zev Hamlin [facility] Comment on above: Early/Late Reason: P atient Not Available/Off Unit Payers Date Payer Category Payer Self-pay [id number] 2023 Private Health Insurance [id number] 2020 Unknown [id number] 2019 Unknown [id number]. [id number] 1992 Unknown [id number] 2.16.840.1.289239.3.579.2. 593 1992 Unknown [id number] 2.16.840.1.616462.3.579.2. 173 1992 Unknown [id number] 2.16.840.1.916822.3.579.2. 173 1992 Unknown [id number] 2.16.840.1.803268.3.579.2. 173 1992 Unknown [id number] 2.16.840.1.734277.3.579.2. 173 1992 Unknown [id number] 2.16.840.1.354039.3.579.2. 173 1992 Unknown [id number] 2.16.840.1.559448.3.579.2. 983 1992 Unknown [id number] 2.16.840.1.442373.3.579.2. 983 1992 Unknown [id number] 2.16.840.1.870464.3.579.2. 983 1992 Unknown [id number] 2.16.840.1.018567.3.579.2. 983 1992 Unknown [id number] 2.16.840.1.010520.3.579.2. 727 1992 Unknown [id number] 2.16.840.1.644855.3.579.2. 7 1992 Unknown [id number] 2.16.840.1.108295.3.579.2. 727 1992 Unknown [id number] 2.16.840.1.853498.3.579.2. 1285 1992 Unknown [id number] 2.16.840.1.082118.3.579.2. 1285 1992 Unknown [id number] 2.16.840.1.560214.3.579.2. 1285 1992 Unknown [id number] 2.16.840.1.471508.3.579.2. 1285 1992 Unknown [id number] 2.16.840.1.309474.3.579.2. 1285 1992 Unknown [id number] 2.16.840.1.586189.3.579.2. 1285 1992 Unknown [id number] 2.16.840.1.724195.3.579.2. 727 1959 Unknown [id number] Medicaid [employer] Medicaid [id number] 500 [id number] Unknown [facility] Unknown [id number] 2.16.840.1.996639.3.579.2. 531 Unknown [id number] 2.16.840.1.876538.3.579.2. 531 Unknown [id number] 2.16.840.1.224575.3.579.2. 531 Unknown [id number] 2.16.840.1.825387.3.579.2. 531 Social History Date Type Detail Facility Start: 08-14-2013 End: 10-13-2017 Consumes alcohol occasionally Consumes alcohol occasionally -[place] [address] DO Work Phone: Comment on above: <1PPD; Start: 06-25-2021 Tobacco smoking status Light t obacco smoker (finding) [facility] Sex Assigned At Female [facility] Start: 08-14-2013 End: 10-13-2017 Tobacco smoking status NHIS Smokes tobacco daily [facility] [employer] Work Phone: History of tobacco use Cigarette Smoker [facility] [employer] Work Phone: Start: 08-14-2013 End: 10-13-2017 Tobacco use and exposure Smokeless tobacco non-user [facility] Work Phone: Start: 09-11-2018 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) [facility] Work Phone: Start: 1990 Sex Assigned At Not on file [facility] [employer] Phone: Start: 1990 Sex Assigned At Female F [facility] Tobacco smoking stat us NHIS Unknown if ever smoked [facility] Work Phone: Start: 05-03-2024 End: 06-21-2024 Sex Female (finding) [facility] Functional Status Date Assessment Result Facility 07-06-2023 Functional Status N/A [facility] 07-09-2021 PHQ-9 [id number] Moder ately Severe (15-19) [facility] 250 DO Work Phone: Clinical Notes 07-24-2021 [...] previous workup we will initiate antiviral therapy [facility] Work Phone: [phone]) 213-414310-22-2024 Evaluation note* Author Flip Jean-Pierre [facility] Authored February 21, 2024 1 :00pm 34-year-old female referred to the liver clinic for evaluation of hepatitis C. Patient was diagnosed hepatitis C many years ago. Patient has treatment na ve. Check viral hepatitis serologies, HCV RNA and HCV genotype. Will arrange for FibroScan. After getting the results of the previous workup we will initiate antiviral therapy [facility] Work Phone: 1(181) 472-931603-08-2024 NoteMicrobiology PROCEDURE: Cervical Culture [R1] SOURCE: Cerv [...] Locations R1: This test was performed at: [facility], [address] [place] [address], [id number], [facility]dmGenesis HospitalComment on above:Performed By: #### [id number] #### [facility] [address] [place] [address] [id number] Hospital Discharge instructions Patient Education 07/06/2023 15:38:59 Viral Respiratory Infection, [id number] Viral Respiratory Infection A viral respiratory infection [...] at home: Managing pain and congestion Take yfsp-exg-nemdddd and prescription medicines only as told by [...] cannot use soap and water, 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 ?Cover your mouth when you cough. [...] provider. Document Revised: 07/23/2021 Document Reviewed: 07/23/2021 [employer] Patient Education 2022 [employer]. 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 [facility] Narrative - ReportedCHELSMANISHA NICHOLSON is being seen for a consultation for. POC abnormal ECG; Dr. Hamlin [facility] [address] Work Phone: Chief complaint Narrative - ReportedCHELSEA SHAMEKA is being seen for a consultation for. POC abnormal ECG; Dr. Hamlin [facility] Work Phone: Evaluation + Plan note No data available for this section [facility] note[facility] assessment information available [facility] Work Phone: History of Present illness Narrative* Patient is seen for preoperative risk assessment. She apparently presented for tubal ligation and procedure was canceled because of abnormal EKG. * She has been in and out of the emergency room multiple times. Recently she was in [place] at the [facility] and they also noted abnormal [...] correspond with the surgeon in this regard. [facility] 250 DO Work Phone: History of Present illness Narrative* Patient is seen for preoperative risk assessment. She apparently presented for tubal ligation and procedure was canceled because of abnormal EKG. * She has been in and out of the emergency room multiple times. Recently she was in [place] at the [facility] and they also noted abnormal [...] correspond with the surgeon in this regard. [facility] Work Phone: Hospital Discharge instructions No data available for this section [facility] No data available for this section [facility] Summary Purpose Family History No Family History Records Found Advance Directives Documents on File Type Date Recorded Patient Borough Coordinator Expl anation ACP-Advance Directive ACP-Power of People Manager Latest Code Status on File Code Status [...] hep c May 03, 2024 12 :32pm Chief Complaint Admit Date B19.April 19, 2024 1:34pm hep c May 03, 2024 12 :32pm B19.20 June 20, 2024 4:09pm Additional Source Comments INFORMATION SOURCE (unrecogn ized section and content) DATE CREATED AUTHOR 07/14/2021 [facility] DATE CREATED AUTHOR AUTHOR'S ORGANIZ ATION 12/12/2022 [facility] DATE CREATED AUTHOR AUTHOR'S ORGANIZ ATION 02/17/2023 Salvador goldberg DATE CREATED AUTHOR AUTHOR'S ORGANIZ ATION 02/16/2024 [facility] DATE CREATED AUTHOR AUTHOR'S ORGANIZ ATION 03/14/2024 [facility] DATE CREATED AUTHOR AUTHOR'S ORGANIZ ATION 03/15/2024 [facility] [facility] DATE CREATED AUTHOR AUTHOR'S ORGANIZ ATION 06/22/2024 [facility] Care Teams (unrecognized sec tion and content) Team Status: Active Member Role Status Dates Michael Mejia MD Primary Care Provider Active Team Status: Active Member Role Status Dates Michael Mejia MD Primary Care Provider Active Start: April 11, 2024 Paul Cazares DO Attending Provider Active Sta rt: April 11, 2024 Team Status: Inactive Member Role Status [...] 2024 End: May 03, 2024 Team Status: Inactive Member Role Status Dates Michael Mejia MD Primary Care Provider Active Start: June 20, 2024 End: June 20, 2024 Flip Morejon MD Attending Provider Active Start: June 20, 2024 End: June 20, 2024 Team Status: Active Member Role Status [...] BE BASED ON THE PRIMARY CLINICAL RECORDS. [facility] [employer] [facility]. provides no warranty or guarantee of the accuracy or completeness of information in this document.
[2024-06-26 17:27] LABS: Bilirubin Urine NEGATIVE (NEGATIVE); Blood Urine NEGATIVE (NEGATIVE); Clarity Urine CLEAR (CLEAR); Color Urine YELLOW (YELLOW); Glucose Urine UA NEGATIVE (NEGATIVE); Ketones Urine NEGATIVE (NEGATIVE); Leukocyte Esterase Urine NEGATIVE (NEGATIVE); Nitrite Urine NEGATIVE (NEGATIVE); Protein Urine NEGATIVE (NEG/TRACE); Specific Gravity Urine 1.025 (1.005-1.025); pH Urine 5.5 (5.0-9.0)
[2024-06-26 17:34] LABS: Bacteria Urine SMALL #/HPF (NONE SEEN); Cast Seen? NONE SEEN #/LPF (NONE SEEN); Crystals Seen? None Seen #/HPF (None Seen); Mucus Urine TRACE (NONE SEEN); RBC Urine 0-2 #/HPF (0-2); Squamous Epithelial Cell Urine MODERATE #/LPF (NONE/RARE); Urine Culture Indicated YES-FRMC; WBC Urine NONE SEEN #/HPF (NONE SEEN)
--- NOTE | 2024-06-26 17:34 | US_ITS ---
The [address] [address] Patient Name: SANGEETA MYLES MRN: [id number] date: 1990 Sex: F Assigned Patient Location: ER Current Patient Location: ER Accession/Order Number: [id number] Exam Date: 06/26/2024 18:46 Report Date: 06/26/2024 18:47 At the request of: REX GREGG MD Procedure: US right upper quadrant EXAMINATION TYPE: US right upper quadrant DATE OF EXAM ORDERED: 06/26/2024 6:38 PM HISTORY: RUQ pain, nausea COMPARISON: NONE TECHNIQUE: Realtime imaging limited to the right upper quadrant was performed. FINDINGS: The gallbladder appears within normal limits without evidence of cholelithiasis. The gallbladder wall measures 3 mm in thickness. Common bile but measures 3 mm in diameter. No intrahepatic or extrahepatic biliary dilatation is seen. The liver is normal in echo reflectivity. Hepatopedal flow is noted in the main portal vein. Partial visualization of the right kidney reveals no gross hydronephrosis. Partial visualization of the pancreas reveals no abnormality. US/US right upper quadrant IMPRESSION: Normal right upper quadrant ultrasound. Impression dictated by: Jerry Lees M.D.06/26/2024 6:47 PM Dictation Location: [place] [address] Electronically authenticated by: [id number] Y Date: 06/26/2024 18:47
[2024-06-26 18:52] LABS: Basophils Percent Auto 0.3 % (0.2-2.0); Hematocrit 37.3 % (36.0-48.0); Hemoglobin 12.2 g/dL (12.0-16.0); Immature Granulocytes Abs Auto 0.06 10^3/uL (0.00-0.03); Immature Granulocytes Pct Auto 1.7 % (0.0-0.5); Lymphocytes Absolute Auto 1.6 10^3/uL (1.2-3.8); Lymphocytes Percent Auto 44.2 % (20.5-60.0); Mean Corpuscular HGB Conc 32.7 g/dL (29.9-35.2); Mean Corpuscular Hemoglobin 29.5 pg (26.7-34.0); Mean Corpuscular Volume 90.3 fL (81.0-99.0); Mean Platelet Volume 10.7 fL (9.5-13.5); Monocytes Absolute Auto 0.2 10^3/uL (0.3-0.8); Monocytes Percent Auto 5.1 % (1.7-12.0); Neutrophils Absolute Auto 1.7 10^3/uL (1.4-6.5); Neutrophils Percent Auto 48.7 % (43.0-75.0); Platelet Count 122 10^3/uL (150-450); Red Blood Count 4.13 10^6/uL (4.20-5.40); Red Cell Distribution Width 14.1 % (11.0-15.0); White Blood Count 3.6 10^3/uL (4.0-11.0)
--- NOTE | 2024-06-26 18:54 | PC.NURSE ---
pt back to room 1 at this time
[2024-06-26 19:01] LABS: HCG Qualitative NEGATIVE (NEGATIVE)
[2024-06-26 19:02] LABS: Internal Control Within Normal Limits
[2024-06-26 19:14] LABS: Carbon Dioxide 30.5 mmol/L (21.0-32.0); Chloride 110 mmol/L (98-107); Estimated GFR (African America >60 (>=60 mL/min/1.73m^2); Glucose 96 mg/dL (74-106); Potassium 4.5 mmol/L (3.5-5.1); Sodium 143 mmol/L (136-145)
[2024-06-26 19:15] LABS: Alanine Aminotransferase 204 U/L (14-59); Albumin Globulin Ratio 1.2; Albumin Level 3.2 g/dL (3.4-5.0); Alkaline Phosphatase 108 U/L (46-116); Aspartate Amino Transferase 159 U/L (15-37); BUN Creatinine Ratio 21.1; Bilirubin Total 0.6 mg/dL (0.2-1.0); Calcium 9.9 mg/dL (8.5-10.1); Estimated GFR (Non-African Ame >60 (>=60 mL/min/1.73m^2); Globulin 2.6 g/dL; Total Protein 5.8 g/dL (6.4-8.2)
--- NOTE | 2024-06-26 19:15 | ED.ABDPAIN1 ---
HPI - Abdominal Pain General Chief Complaint: Abdominal Pain Stated Complaint: RIGHT SIDE PAIN Time Seen by Provider: 06/26/24 19:08 Source: patient Mode of arrival: Wheelchair Limitations: no limitations History of Present Illness HPI narrative: cc = right upper abdominal pain Patient presents with about 1/2 months of right upper quadrant abdominal pain that has waxed and waned during that time. She talked to her centrifugal casting machine tender yesterday and they recommended that she come to the emergency department to get her gallbladder checked . No fever or chills. No nausea or vomiting. No change in bowel habits. No blood in urine or stool. No urinary symptoms. No flank pain or radiation to her back. Pain currently rated as mild. She did wait in the emergency department waiting room for some time because of how busy the work today. She just got back to room 1 a short time ago and I went to evaluate her at the beginning of my shift She has history of hepatitis C and is planning on getting that treated but is waiting to coordinate with her applied research director/centrifugal casting machine tender. Related Data Home Medications ?Medication ?Instructions ?Recorded ?Confirmed trazodone 100 mg tablet 100 mg PO BEDTIME 11/09/22 04/11/24 buprenorphine 8 mg-naloxone 2 mg 1.5 film sublingual DAILY 10/25/23 sublingual film buspirone 10 mg tablet 10 mg PO DAILY 04/11/24 04/11/24 furosemide 20 mg tablet 20 mg PO Q48H 04/11/24 04/11/24 hydroxyzine pamoate 25 mg capsule 25 mg PO Q6H 04/11/24 04/11/24 melatonin 10 mg tablet 10 mg PO DAILY 04/11/24 04/11/24 prazosin 1 mg capsule 1 mg PO DAILY 04/11/24 04/11/24 sertraline 25 mg tablet 25 mg PO Q24H 04/11/24 04/11/24 sertraline 50 mg tablet 50 mg PO Q24H 04/11/24 04/11/24 trazodone 50 mg tablet 50 mg PO DAILY 04/11/24 04/11/24 Previous Rx's ?Medication ?Instructions ?Recorded pantoprazole 40 mg tablet,delayed 40 mg PO DAILY #30 tabs 10/24/23 release (Protonix) cyanocobalamin (vitamin B-12) 1,000 mcg IM .Weekly 4 weeks #4 ea 10/26/23 1,000 mcg/mL injection kit cyanocobalamin (vitamin B-12) 1,000 mcg IM DAILY 3 days #3 ea 10/26/23 1,000 mcg/mL injection kit lactulose 10 gram/15 mL oral 20 g (30 mL) PO BID #237 mL 10/26/23 solution cephalexin 500 mg capsule 500 mg PO BID 7 days #14 caps 06/26/24 hyoscyamine sulfate 0.125 mg 0.125 mg PO Q6H PRN abdominal pain 06/26/24 sublingual tablet (Levsin/SL) #20 tabs Allergies Allergy/AdvReac Type Severity Reaction Status Date / Time No Known Drug Allergies Allergy Verified 05/30/24 21:59 PFSH PFSH Medical History (Updated 06/26/24 @ 19:19 by Jason Emery) Urinary tract infection with hematuria ?N39.0 - Urinary tract infection, site not specified (ICD-10) ?R31.9 - Hematuria, unspecified (ICD-10) Oral thrush ?B37.0 - Candidal stomatitis (ICD-10) Single delivery by section ?O82 - Encounter for delivery without indication (ICD-10) Liver failure ?K72.90 - Hepatic failure, unspecified without coma (ICD-10) Hep C w/o coma, chronic ?B18.2 - Chronic viral hepatitis C (ICD-10) Neurocardiogenic syncope ?R55 - Syncope and collapse (ICD-10) Family History (Updated 10/23/23 @ 19:39 by Makayla Campos RN) Mother Family history of COPD (chronic obstructive pulmonary disease) Other Family history of cancer Family history of hypertension Social History (Updated 10/23/23 @ 19:41 by Makayla Campos RN) Within the past year, how often did you have a drink containing alcohol: never Within the past year, how many standard drinks containing alcohol did you have on a typical day: 1 or 2 Within the past year, how often did you have six or more drinks on one occasion: never Total score: 0 Score interpretation: A score less than 3 is consistent with normal alcohol consumption. 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; clean for four months Previous occupational history: [employer] Highest level of school completed/degree received: high school graduate Are you now , , , , never or living with a partner: living with partner In a typical week, how many times do you talk on the telephone with family, friends, or neighbors: 3 or more times per week How often do you get together with friends or relatives: 3 or more times per week How often do you attend mu-ism or restorationist services: never Little interest or pleasure in doing things: not at all Feeling down, depressed, or hopeless: not at all Feel stressed/tense/nervous/anxious/difficulty sleeping: to some extent Do you think of yourself as: straight/heterosexual Gender Identity: female Exam Narrative Exam Narrative: Nurses notes and vital signs reviewed and patient is not hypoxic. afebrile General: Well-appearing and in no apparent distress. Skin: Warm, dry, no pallor noted. No jaundice No rash. Head: Normocephalic, atraumatic. Eye: Pupils are equal, round and EOMI. No scleral icterus. Ears, Nose, Mouth, and Throat: Oral mucosa is moist Cardiovascular: Regular Rate and Rhythm without murmur, gallop or rub. Respiratory: No accessory muscle use or respiratory distress. Lungs are clear to auscultation, no wheezing, rales or rhonchi Back: No thoracic or lumbar tenderness. No CVA tenderness Musculoskeletal: normal ROM GI: Abdomen is soft, non-distended. Normal bowel sounds. Minimal right upper quadrant tenderness to palpation. No rebound, guarding, or rigidity noted. Neurological: A&O x4. No cranial nerve dysfunction observed. No truncal ataxia. Moves all extremities. Sensation intact. Psychiatric: Cooperative and interactive. Normal mood and affect. Constitutional Vital Signs, click to edit/add: Last Vital Signs Temp 98.2 F 06/26/24 16:17 Pulse 66 06/26/24 16:17 Resp 18 06/26/24 16:17 BP 118/56 06/26/24 16:17 Pulse Ox 98 06/26/24 16:17 O2 Del Method Room Air 06/26/24 16:17 Course Vital Signs Vital signs: Vital Signs Temperature 98.2 F 06/26/24 16:17 Pulse Rate 66 06/26/24 16:17 Respiratory Rate 18 06/26/24 16:17 Blood Pressure 118/56 06/26/24 16:17 Pulse Oximetry 98 06/26/24 16:17 Oxygen Delivery Method Room Air 06/26/24 16:17 Temperature 98.2 F 06/26/24 16:17 Pulse Rate 66 06/26/24 16:17 Respiratory Rate 18 06/26/24 16:17 Blood Pressure 118/56 06/26/24 16:17 Pulse Oximetry 98 06/26/24 16:17 Oxygen Delivery Method Room Air 06/26/24 16:17 MDM - Abdominal Pain MDM Narrative Medical decision making narrative: Orders were placed while the patient was in the waiting room when she got blood drawn and sent for testing, urine sent for testing and underwent ultrasound of the right upper quadrant. Right upper quadrant ultrasound is negative and, per the radiologist report, does not show gallbladder dysfunction CBC is normal. negative. Urine has elevated squamous cells but she does have other signs of acute urinary tract infection. I will go ahead and treat her for this with the culture potentially changing our treatment plan. Patient was agreeable to this plan. I will also prescribe some Levsin for her to take for any abdominal pain. We talked about dietary adjustments as well as increasing her fluid intake. She can follow-up with her centrifugal casting machine tender. Lab Data Attestation: I reviewed the patient's lab results. Labs: Lab Results 06/26/24 06/26/24 Range/Units 17:07 18:34 WBC 3.6 L (4.0-11.0) 10^3/uL RBC 4.13 L (4.20-5.40) 10^6/uL Hgb 12.2 (12.0-16.0) g/dL Hct 37.3 (36.0-48.0) % MCV 90.3 (81.0-99.0) fL MCH 29.5 (26.7-34.0) pg MCHC 32.7 (29.9-35.2) g/dL RDW 14.1 (11.0-15.0) % Plt Count 122 L (150-450) 10^3/uL MPV 10.7 (9.5-13.5) fL Neut % (Auto) 48.7 (43.0-75.0) % Lymph % (Auto) 44.2 (20.5-60.0) % [place] % (Auto) 5.1 (1.7-12.0) % Eos % (Auto) 0.0 L (0.9-7.0) % Baso % (Auto) 0.3 (0.2-2.0) % Neut # (Auto) 1.7 (1.4-6.5) 10^3/uL Lymph # (Auto) 1.6 (1.2-3.8) 10^3/uL [place] # (Auto) 0.2 L (0.3-0.8) 10^3/uL Eos # (Auto) 0.0 (0.0-0.7) 10^3/uL Baso # (Auto) 0.0 (0.0-0.1) 10^3/uL Abs Immat Gran (auto) 0.06 H (0.00-0.03) 10^3/uL Imm/Tot Granulo (auto) 1.7 H (0.0-0.5) % Lipase 37.0 (16.0-77.0) U/L Serum HCG, Qual Negative (NEGATIVE) Urine Color Yellow (YELLOW) Urine Clarity Clear (CLEAR) Urine pH 5.5 (5.0-9.0) Ur Specific [place] 1.025 (1.005-1.025) Urine Protein Negative (NEG/TRACE) mg/dL Urine Glucose (UA) Negative (NEGATIVE) mg/dL Urine Ketones Negative (NEGATIVE) mg/dL Urine Occult Blood Negative (NEGATIVE) Urine Nitrite Negative (NEGATIVE) Urine Bilirubin Negative (NEGATIVE) Urine Urobilinogen 1.0 (0.2-1.0) EU/dL Ur Leukocyte Esterase Negative (NEGATIVE) Urine RBC 0-2 (0-2) #/HPF Urine WBC None seen (NONE SEEN) #/HPF Ur Squamous Epith Cells Moderate A (NONE/RARE) #/LPF Urine Crystals None seen (None Seen) #/HPF Urine Bacteria Small A (NONE SEEN) #/HPF Urine Casts None seen (NONE SEEN) #/LPF Urine Mucus Trace A (NONE SEEN) Ur Culture Indicated? Yes-[facility] [place] Imaging Data US - abdomen: Radiologist's impression: ITS Impressions Upper Quadrant Ultrasound 06/26/24 17:34 IMPRESSION: Normal right upper quadrant ultrasound. Impression dictated by: Jerry Lees M.D.06/26/2024 6:47 PM Dictation Location: [place] [address] Electronically authenticated by: [id number] Y Date: 06/26/2024 18:47 Discharge Plan Discharge Chief Complaint: Abdominal Pain Clinical Impression: Abdominal pain, UTI (urinary tract infection) Patient Disposition: Home, Self-Care Time of Disposition Decision: 19:19 Prescriptions / Home Meds: New cephalexin 500 mg capsule 500 mg PO BID 7 Days Qty: 14 0RF hyoscyamine sulfate [Levsin/SL] 0.125 mg tablet, sublingual 0.125 mg PO Q6H PRN (Reason: abdominal pain) Qty: 20 0RF No Action trazodone 100 mg tablet 100 mg PO BEDTIME pantoprazole [Protonix] 40 mg tablet,delayed release (DR/EC) 40 mg PO DAILY Qty: 30 11RF buprenorphine-naloxone 8-2 mg film 1.5 film sublingual DAILY lactulose 10 gram/15 mL solution 20 g PO BID Qty: 237 0RF cyanocobalamin (vitamin B-12) 1,000 mcg/mL kit 1,000 mcg IM DAILY 3 Days Qty: 3 0RF cyanocobalamin (vitamin B-12) 1,000 mcg/mL kit 1,000 mcg IM .Weekly 28 Days Qty: 4 0RF Rx Instructions: Start one week after daily dosing is completed buspirone 10 mg tablet 10 mg PO DAILY hydroxyzine pamoate 25 mg capsule 25 mg PO Q6H melatonin 10 mg tablet 10 mg PO DAILY prazosin 1 mg capsule 1 mg PO DAILY trazodone 50 mg tablet 50 mg PO DAILY furosemide 20 mg tablet 20 mg PO Q48H sertraline 50 mg tablet 50 mg PO Q24H sertraline 25 mg tablet 25 mg PO Q24H Print Language: Maori Instructions: Urinary Tract Infection in Women (ED), Abdominal Pain (ED) Referrals: Bahman Mejia MD [Primary Care Provider] - 1 week
== END 2024-06-26 19:32 | disposition home or self-care (01) ==
PROVIDERS: Physician Assistant; Emergency Provider Emergency Medicine; PCP Family Medicine
DX: R10.84 Generalized abdominal pain (principal); N39.0 Urinary tract infection, site not specified; R10.11 Right upper quadrant pain; F17.200 Nicotine dependence, unspecified, uncomplicated
CPT/HCPCS: 36415; 76705; 80053; 81001; 83690; 84703; 85025; 87086; 99285

== ENCOUNTER 2024-07-01 20:20 | Emergency (ER) | payer OTHER, SELFPAY ==
[2024-07-01] VITALS (12 sets, daily range): BP systolic 118–128; BP diastolic 61–67; PULSE 47–68; TEMP 36.6; O2SAT 96–100; BMI 29.9
--- OUTSIDE RECORDS SUMMARY | 2024-07-01 20:24 | XMS_ITS | CCD ---
Author Organization [facility] Care Team Providers Care Checking Department Supervisor Name Role Phone None, No PCP Unavailable [...] Attending Unavailable NON STAFF Primary Care Provider Unavailabl MD Flip Oscar Attending Provider NON STAFF Primary Care Provider Unavailabl Flip Oscar MD Attending Provider [phone] Michael Mejia MD Primary Care Provider [phone] Flip Morejon MD Attending Provider [phone] Shelby Dumont PA-C Attending Provider [phone] NO PCP, NO PCP Primary Care Unavailable FLAVIA WOODRUFF Attending Unavailab le NO PCP, NO PCP Primary Care Unavailable PHYSICIAN, UNKNOWN Referring Unavailable NO PCP, NO PCP Primary Care Unavailable NO PCP, NO PCP Primary Care Unavailable ELIAN RODRIGUEZ Attending Unavailable ISAIAS ADDISON Attending Unavailable HOMICHAEL Roberson M Primary Care Unavailable HODa MICHAEL M Primary Care Unavailable ISAIAS ADDISON Attending Unavailable Asaad, Imad Admitting Unavailable Asaad, Imad Attending Unavailable NON STAFF Primary Care Unavailable Asaad, Imad Admitting Unavailable Asaad, Imad Attending Unavailable Hoy, Michael M Primary Care Unavailable Asaad, Imad Admitting Unavailable Asaad, Imad Attending Unavailable Jackie, Michael M Primary Care Unavailable Shelby Dumont Admitting Unavailable Shelby Dumont Attending Unavailable Asaad, Imad Admitting Unavailable Asaad, Imad Attending Unavailable Jackie Michael M Primary Care Unavailable Medications Current Medications Medication Drug Class(es) Dates Sig (Normalized) Sig (Original) acetaminophen 325 mg / oxyCODONE hydrochloride 5 mg oral tablet (1 source) Opioid Agonist Start: 07-24-2021 End: 07-26-2021 Percocet 325 mg-5 mg Tab 1 tab(s), Oral, q6hr for pain for 2 day(s), 7 tab(s), Refill(s) 0, [facility]/pharmacy #[id number], 161, cm, 06/25/21 13:03:00 EST, [...] by mouth 2 times daily 0 Active Ixvumgjr-Ptx-Hi-FA ( VITAMINS PO) (5 sources) Qeykdyil-Ujb-Ph-FA ( VITAMINS PO) Take by mouth 0 [...] secondary to d ocumentation in Social History. Unclassified (4 sources) History of clinical finding [...] Hypokalemia; Translations: [Hypokalemia] Onset: 4 Episodic Hepatitis (6 sources) Viral hepatitis C; Translations: [Unspecified viral [...] stimulant use, unspecified, uncomplicated] Onset: 3 Episodic Syncope (6 sources) Cardiac syncope; Translations: [Syncope] Onset: 4 07-13-2013 Episodic Unclassified (12 sources) Onset: 0 Resolved: 9 11-07-2014 Unclassified (1 source) Exposure to 2019 novel coronavirus; Translations: [Contact with and (suspected) exposure to COVID19] Unclassified (1 source) Alcohol use, unspecified, uncomplicated; Translations: [Alcohol use, unspecified, uncomplicated] Onset: 3 Urinary tract infections (1 source) Acute cystitis without hematuria; Translations: [Acute cystitis without hematuria] Onset: 4 Episodic Results Test Name Value Interpretation Reference Range Facility CBC AND AUTO DIFFon 06-27-19 25 ABSOLUTE BASOPHIL 0.0 X10E9/L Normal 0.0-0.2 [facility] Comment on above: Performed By: #### Ethan MIRAMONTES, , [facility], 3039-07 #### [facility] ([id number]) [address] [place] [address] 76118 ABSOLUTE NEUTROPHIL 2.0 X10E9/L Normal 1.5-6.6 [facility] Comment on above: Performed By: #### Ethan MIRAMONTES, , [facility], 3039-07 #### [facility] ([id number]) [address] [place] [address] 22129 Basophils/100 WBC (Bld) 0.1 % Normal [facility] Comment on above: Performed By: #### Ethan MIRAMONTES, , [facility], 3039-07 #### [facility] ([id number]) [address] [place] [address] 78594 Eosinophils (Bld) [#/Vol] 0.0 10*3/uL Normal 0.0-0.4 [facility] Comment on above: Performed By: #### Ethan MIRAMONTES, , [facility], 3039-07 #### [facility] ([id number]) [address] [place] [address] 36381 Eosinophils/100 WBC (Bld) 0.0 % Normal [facility] Comment on above: Performed By: #### Ethan MIRAMONTES, , [facility], 1987-08, 3039-07 #### [facility] ([id number]) [address] [place] [address] 78344 Erythrocyte distribution width (RBC) [Ratio] 15.3 % High 11.5-15.0 [facility] Comment on above: Performed By: #### Ethan MIRAMONTES, , [facility], 1987-08, 3039-07 #### [facility] ([id number]) [address] [place] [address] 19647 Hematocrit (Bld) [Volume fraction] 36.5 % Normal 35-47 [facility] Comment on above: Performed By: #### Ethan MIRAMONTES, , [facility], 1987-08, 3039-07 #### [facility] ([id number]) [address] [place] [address] 07020 Hemoglobin (Bld) [Mass/Vol] 12.4 g/dL Normal 11.7-15.5 [facility] Comment on above: Performed By: #### Ethan MIRAMONTES, , [facility], 1987-08, 3039-07 #### [facility] ([id number]) [address] [place] [address] 31474 Lymphocytes (Bld) [#/Vol] 1.3 10*3/uL Normal 1.0-3.5 [facility] Comment on above: Performed By: #### Ethan MIRAMONTES, , [facility], 1987-08, 3039-07 #### [facility] ([id number]) [address] [place] [address] 80810 Lymphocytes/100 WBC (Bld) 36.1 % Normal [facility] Comment on above: Performed By: #### Ethan MIRAMONTES, , [facility], 3039-07 #### [facility] ([id number]) [address] [place] [address] 10496 MCH (RBC) [Entitic mass] 29.8 pg Normal 27-34 [facility] Comment on above: Performed By: #### Ethan MIRAMONTES, , [facility], 1987-08, 3039-07 #### [facility] ([id number]) [address] [place] [address] 64937 MCHC (RBC) [Mass/Vol] 34.0 g/dL Normal 32-36 [facility] Comment on above: Performed By: #### Etahn MIRAMONTES, , [facility], 1987-08, 3039-07 #### [facility] ([id number]) [address] [place] [address] 32803 MCV (RBC) [Entitic vol] 88 fL Normal 80-100 [facility] Comment on above: Performed By: #### Ethan MIRAMONTES, , [facility], 1987-08, 3039-07 #### [facility] ([id number]) [address] [place] [address] 08142 Monocytes (Bld) [#/Vol] 0.3 10*3/uL Normal 0-0.9 [facility] Comment on above: Performed By: #### Ethan MIRAMONTES, , [facility], 3039-07 #### [facility] ([id number]) [address] [place] [address] 81930 Monocytes/100 WBC (Bld) 7.0 % Normal [facility] Comment on above: Performed By: #### Ethan MIRAMONTES, , [facility], 1987-08, 3039-07 #### [facility] ([id number]) [address] [place] [address] 67571 Neutrophils/100 WBC (Bld) 56.8 % Normal [facility] Comment on above: Performed By: #### Ethan MIRAMONTES, , CMP, 1987-08, 3039-07 #### [facility] ([id number]) [address] [place] [address] 17022 Platelet mean volume (Bld) [Entitic vol] 8.5 fL Normal 7-12 [facility] Comment on above: Performed By: #### Ethan MIRAMONTES, , CMP, 1987-08, 3039-07 #### [facility] ([id number]) [address] [place] [address] 86078 Platelets (Bld) [#/Vol] 145 10*3/uL Low 150-450 [facility] Comment on above: Performed By: #### Ethan MIRAMONTES, , CMP, 1987-08, 3039-07 #### [facility] ([id number]) [address] [place] [address] 72290 RBC COUNT 4.17 X10E12/L Normal 3.80-5.20 [facility] Comment on above: Performed By: #### Ethan MIRAMONTES, , CMP, 1987-08, 3039-07 #### [facility] ([id number]) [address] [place] [address] 64109 WBC (Bld) [#/Vol] 3.6 10*3/uL Low 4.0-11.0 [facility] Comment on above: Performed By: #### Ethan MIRAMONTES, , CMP, 1987-08, 3039-07 #### [facility] ([id number]) [address] [place] [address] 89581 COMPREHENSIVE METABOLIC PANE Elvin 06-27-2024 Albumin [Mass/Vol] 3.7 g/dL Normal 3.2-5.3 [facility] Comment on above: Performed By: #### Ethan MIRAMONTES, , CMP, 3039-07 #### [facility] ([id number]) [address] [place] [address] 85397 ALP [Catalytic activity/Vol] 96 U/L Normal 39-130 [facility] Comment on above: Performed By: #### C BCA, , [facility], 3039-07 #### [facility] ([id number]) [address] [place] [address] 85187 ALT [Catalytic activity/Vol] 199 U/L High 0-31 [facility] Comment on above: Performed By: #### C BCA, , [facility], 3039-07 #### [facility] ([id number]) [address] [place] [address] 99837 Anion gap [Moles/Vol] 3 mmol/L Low 5-15 [facility] Comment on above: Performed By: #### Ethan BCA, , [facility], 3039-07 #### [facility] ([id number]) [address] [place] [address] 30886 AST [Catalytic activity/Vol] 191 U/L High 0-41 [facility] Comment on above: Performed By: #### Ethan BCA, , [facility], 3039-07 #### [facility] ([id number]) [address] [place] [address] [place] [address] Bilirubin [Mass/Vol] 0.6 mg/dL Normal 0.3-1.2 [facility] Comment on above: Performed By: #### C BCA, , [facility], 3039-07 #### [facility] ([id number]) [address] [place] [address] 84083 Calcium [Mass/Vol] 9.2 mg/dL Normal 8.5-10.5 [facility] Comment on above: Performed By: #### C BCA, , CMP, 1987-08, 3039-07 #### [facility] ([id number]) [address] [place] [address] 42999 Chloride [Moles/Vol] 110 mmol/L High 98-109 [facility] Comment on above: Performed By: #### C BCA, , CMP, 1987-08, 3039-07 #### [facility] ([id number]) [address] [place] [address] 06732 CO2 [Moles/Vol] 24 mmol/L Normal 22-32 [facility] Comment on above: Performed By: #### C BCA, , CMP, 1987-08, 3039-07 #### [facility] ([id number]) [address] [place] [address] 18168 Creatinine [Mass/Vol] 0.51 mg/dL Normal 0.40-1.00 [facility] Comment on above: Result Comment: METH OD TRACEABLE TO IDMS STANDARD Performed By: #### C FE, , CMP, 1987-08, 3039-07 #### [facility] ([id number]) [address] [place] [address] 61506 eGFR (CKD-EPI) NON-RACE DEPENDENT >90 Normal >59 [facility] Comment on above: Result Comment: Reported eGFR is based on the CKD-EPI 2020 equation that does not use a race coefficient. Performed By: #### C BCA, , CMP, 1987-08, 3039-07 #### [facility] ([id number]) [address] [place] [address] 25097 Glucose [Mass/Vol] 88 mg/dL Normal 65-99 [facility] Comment on above: Performed By: #### C BCA, , CMP, 1987-08, 3039-07 #### [facility] ([id number]) [address] [place] [address] 87688 Potassium [Moles/Vol] 4.3 mmol/L Normal 3.5-5.0 [facility] Comment on above: Performed By: #### C BCA, , [facility], 1987-08, 3039-07 #### [facility] ([id number]) [address] [place] [address] 52482 Protein [Mass/Vol] 6.4 g/dL Normal 6.0-8.0 [facility] Comment on above: Performed By: #### C FE, , [facility], 1987-08, 3039-07 #### [facility] ([id number]) [address] [place] [address] 63517 Sodium [Moles/Vol] 137 mmol/L Normal 134-146 [facility] Comment on above: Performed By: #### Ethan MIRAMONTES, , [facility], 3039-07 #### [facility] ([id number]) [address] [place] [address] 87222 Urea nitrogen [Mass/Vol] 15 mg/dL Normal 5-23 [facility] Comment on above: Performed By: #### C FE, , [facility], 3039-07 #### [facility] ([id number]) [address] [place] [address] 51318 HCG ( test) Ql (U)o n 06-27-2024 Beta HCG ( test) Ql (U) Negative Normal NEG [facility] Comment on above: Performed By: #### C BCA, , [facility], 3039-07 #### [facility] ([id number]) [address] [place] [address] 59738 Troponin I.cardiac High sens itivity method [Mass/Vol]on 06-27-2024 1 HOUR TROP I, HIGH SENSITIVITY 5 ng/L Normal <16 [facility] Comment on above: Performed By: #### C BCA, , CMP, 1987-08, 3039-07 #### [facility] ([id number]) [address] [place] [address] 88702 TROPONIN I, HIGH SENSITIVITY 5 ng/L Normal <16 [facility] Comment on above: Performed By: #### Ethan BCA, , CMP, 1987-08, 3039-07 #### [facility] ([id number]) [address] [place] [address] [place] [address] URN MACROSCOPIC NURon 2024 BILIRUBIN ERA Negative Normal NEG [facility] Comment on above: Performed By: #### Ethan BCA, , CMP, 1987-08, 3039-07 #### [facility] ([id number]) [address] [place] [address] [place] [address] BLOOD/HGB ERA Negative Normal NEG [facility] Comment on above: Performed By: #### Ethan BCA, , CMP, 1987-08, 3039-07 #### [facility] ([id number]) [address] [place] [address] [place] [address] GLUCOSE ERA Negative Normal NEG [facility] Comment on above: Performed By: #### Ethan BCA, , CMP, 1987-08, 3039-07 #### [facility] ([id number]) [address] [place] [address] [place] [address] KETONES ERA Negative Normal NEG [facility] Comment on above: Performed By: #### Ethan BCA, , CMP, 1987-08, 3039-07 #### [facility] ([id number]) [address] [place] [address] [place] [address] LEUKOCYTE ESTERASE ERA Negative Normal NEG [facility] Comment on above: Performed By: #### Ethan BCA, , CMP, 1987-08, 3040-3 #### [facility] ([id number]) [address] [place] [address] 41523 NITRITE ERA Negative Normal NEG [facility] Comment on above: Performed By: #### C BCA, , [facility], 1987-08, 3039-07 #### [facility] ([id number]) [address] [place] [address] 39554 PH ERA 6.5 Normal 5.0-8.5 [facility] Comment on above: Performed By: #### C BCA, , [facility], 1987-08, 3039-07 #### [facility] ([id number]) [address] [place] [address] 25907 PROTEIN ERA Negative Normal NEG [facility] Comment on above: Performed By: #### C BCA, , [facility], 1987-08, 3039-07 #### [facility] ([id number]) [address] [place] [address] 04053 SPECIFIC GRAVITY ERA 1.020 Normal 1.003-1.035 [facility] Comment on above: Performed By: #### C BCA, , [facility], 1987-08, 3039-07 #### [facility] ([id number]) [address] [place] [address] 73753 UROBILINOGEN ERA 2.0 eu/dL High <1.1 [facility] Comment on above: Performed By: #### C BCA, , [facility], 1987-08, 3039-07 #### [facility] ([id number]) [address] [place] [address] 73231 Urine Cultureon 06-26-2024 Bacteria identified Cx Nom (U) 40,000 colonies/ml mixed bacterial skin contaminants 2 Days PERFORMED BY: [place] [address] [place] [address] PATHOLOGIST INDUSTRIAL THERAPIST DAMON MONROY M.D. Normal [facility] Comment on above: Performed By: #### C UU #### [facility] [address] Alanine aminotransferase [En zymatic activity/volume] in Serum or PlasmaOrdered By: Imad Asaad on 06-20-2024 ALT [Catalytic activity/Vol] Alanine aminotransferase [Enzymatic activity/volume] in Serum or Plasma High 7-52 [facility] Albumin [Mass/volume] in Ser um or Plasma by Bromocresol green (BCG) dye binding methoOrdered By: Imad Asaad on 06-20-2024 Albumin BCG dye [Mass/Vol] Albumin [Mass/volume] in Serum or Plasma by Bromocresol green (BCG) dye binding metho 3.5-5.7 [facility] Alkaline phosphatase [Enzyma tic activity/volume] in Serum or PlasmaOrdered By: Imad Asaad on 06-20-2024 ALP [Catalytic activity/Vol] Alkaline phosphatase [Enzymatic activity/volume] in Serum or Plasma High 34-104 [facility] Aspartate aminotransferase [ Enzymatic activity/volume] in Serum or PlasmaOrdered By: Imad Asaad on 06-20-2024 AST [Catalytic activity/Vol] Aspartate aminotransferase [Enzymatic activity/volume] in Serum or Plasma High 13-39 [facility] Basophils Auto (Bld) [#/Vol] Ordered By: Imad Asaad on 06-20-2024 Basophils (Bld) [#/Vol] Automated basophil count 0.0-0.2 [facility] Basophils/100 WBC Auto (Bld) Ordered By: Imad Asaad on 06-20-2024 Basophils/100 WBC (Bld) Automated basophil % . [facility] Bilirubin.total [Mass/volume ] in Serum or PlasmaOrdered By: Imad Asaad on 06-20-2024 Bilirubin [Mass/Vol] Bilirubin.total [Mass/volume] in Serum or Plasma 0.3-1.0 [facility] Calcium [Mass/volume] in Ser um or PlasmaOrdered By: Imad Asaad on 06-20-2024 Calcium [Mass/Vol] Calcium [Mass/volume ] in Serum or Plasma 8.6-10.3 [facility] Carbon dioxide, total [Moles /volume] in Serum or PlasmaOrdered By: Imad Asaad on 06-20-2024 CO2 [Moles/Vol] Carbon dioxide, tota l [Moles/volume] in Serum or Plasma 21.0-31.0 [facility] Chloride [Moles/volume] in S aren or PlasmaOrdered By: Imad Asaad on 06-20-2024 Chloride [Moles/Vol] Chloride [Moles/vol ume] in Serum or Plasma 98-107 [facility] Complete Blood Count Auto Di ffon 06-20-2024 Basophils (Bld) [#/Vol] 0.0 10*3/uL Normal 0.0-0.2 [facility] Comment on above: Result Comment: PERF ORMED BY: [place] [address] PATHOLOGIST INDUSTRIAL THERAPIST DAMON MONROY M.D. Performed By: #### C BC, PT, CMP #### [address] Basophils/100 WBC (Bld) 0.1 % Normal . [facility] Comment on above: Performed By: #### C BC, PT, CMP #### [address] Eosinophils (Bld) [#/Vol] 0.0 10*3/uL Normal 0.0-0.45 [facility] Comment on above: Performed By: #### C BC, PT, CMP #### [address] Eosinophils/100 WBC (Bld) 0.0 % Normal . [facility] Comment on above: Performed By: #### C BC, PT, CMP #### [address] Erythrocyte distribution width (RBC) [Ratio] 15.0 % Normal 11.9-15.3 [facility] Comment on above: Performed By: #### C BC, PT, CMP #### [address] Hematocrit (Bld) [Volume fraction] 39.2 % Normal 34.0-46.4 [facility] Comment on above: Performed By: #### C BC, PT, CMP #### [address] Hemoglobin (Bld) [Mass/Vol] 13.2 g/dL Normal 11.8-15.4 [facility] Comment on above: Performed By: #### C BC, PT, CMP #### [address] Lymphocytes (Bld) [#/Vol] 1.7 10*3/uL Normal 1.00-4.8 [facility] Comment on above: Performed By: #### C FAHAD PT, CMP #### [address] Lymphocytes/100 WBC (Bld) 40.3 % Normal . [facility] Comment on above: Performed By: #### C FAHAD, PT, CMP #### [address] MCH (RBC) [Entitic mass] 29.5 pg Normal 24.7-34.3 [facility] Comment on above: Performed By: #### C FAHAD, PT, CMP #### [address] MCV (RBC) [Entitic vol] 87.8 fL Normal 80-100 [facility] Comment on above: Performed By: #### C FAHAD, PT, CMP #### [address] Mean Corpuscular HGB Conc 33.6 g/dL Normal 32.0-35.0 [facility] Comment on above: Performed By: #### C BC, PT, CMP #### [address] Monocytes (Bld) [#/Vol] 0.2 10*3/uL Normal 0.0-0.8 [facility] Comment on above: Performed By: #### C BC, PT, CMP #### [address] Monocytes/100 WBC (Bld) 4.1 % Normal . [facility] Comment on above: Performed By: #### C BC, PT, CMP #### [address] Neutrophils (Bld) [#/Vol] 2.3 10*3/uL Normal 1.8-7.7 [facility] Comment on above: Performed By: #### C BC, PT, CMP #### [address] Neutrophils/100 WBC (Bld) 55.5 % Normal . [facility] Comment on above: Performed By: #### C BC, PT, CMP #### [address] NRBC% 0.2 /100{WBC} Normal 0-0.5 [facility] Comment on above: Performed By: #### C BC, PT, CMP #### [address] Platelet mean volume (Bld) [Entitic vol] 8.3 fL Normal 6.3-10.7 [facility] Comment on above: Performed By: #### C BC, PT, CMP #### [address] Platelets (Bld) [#/Vol] 186 10*3/uL Normal 150-450 [facility] Comment on above: Performed By: #### C BC, PT, CMP #### [address] RBC (Bld) [#/Vol] 4.47 10*6/uL Normal 3.60-5.00 [facility] Comment on above: Performed By: #### C BC, PT, CMP #### [address] WBC (Bld) [#/Vol] 4.1 10*3/uL Normal 3.8-11.6 [facility] Comment on above: Performed By: #### C BC, PT, CMP #### [address] [place] [address] [facility] Comprehensive Metabolic Pane elvin 06-20-2024 Albumin [Mass/Vol] 4.1 g/dL Normal 3.5-5.7 [facility] Comment on above: Performed By: #### H CV RNA DIAG, HBSAB, HAABT, HCV RX PCR, HBSAG, HBCAB #### [facility] , Albumin/Globulin [Mass ratio] 1.8 {ratio} Normal [facility] Comment on above: Performed By: #### H CV RNA DIAG, HBSAB, HAABT, HCV RX PCR, HBSAG, HBCAB #### [facility] , ALP [Catalytic activity/Vol] 111 U/L High 34-104 [facility] Comment on above: Result Comment: PERF ORMED BY: [place] [id number] PATHOLOGIST INDUSTRIAL THERAPIST DAMON MONROY M.D. Performed By: #### H CV RNA DIAG, HBSAB, HAABT, HCV RX PCR, HBSAG, HBCAB #### [facility] , ALT [Catalytic activity/Vol] 203 U/L High 7-52 [facility] Comment on above: Performed By: #### H CV RNA DIAG, HBSAB, HAABT, HCV RX PCR, HBSAG, HBCAB #### [facility] , Anion gap [Moles/Vol] 10.8 mmol/L Normal 6.0-15.0 [facility] Comment on above: Performed By: #### H CV RNA DIAG, HBSAB, HAABT, HCV RX PCR, HBSAG, HBCAB #### [facility] , AST [Catalytic activity/Vol] 149 U/L High 13-39 [facility] Comment on above: Performed By: #### H CV RNA DIAG, HBSAB, HAABT, HCV RX PCR, HBSAG, HBCAB #### [facility] , Bilirubin [Mass/Vol] 0.6 mg/dL Normal 0.3-1.0 [facility] Comment on above: Performed By: #### H CV RNA DIAG, HBSAB, HAABT, HCV RX PCR, HBSAG, HBCAB #### [facility] , Calcium [Mass/Vol] 9.9 mg/dL Normal 8.6-10.3 [facility] Comment on above: Performed By: #### H CV RNA DIAG, HBSAB, HAABT, HCV RX PCR, HBSAG, HBCAB #### [facility] , Chloride [Moles/Vol] 105 mmol/L Normal 98-107 [facility] Comment on above: Performed By: #### H CV RNA DIAG, HBSAB, HAABT, HCV RX PCR, HBSAG, HBCAB #### [facility] , CO2 [Moles/Vol] 29.5 mmol/L Normal 21.0-31.0 [facility] Comment on above: Performed By: #### H CV RNA DIAG, HBSAB, HAABT, HCV RX PCR, HBSAG, HBCAB #### [facility] , Creatinine [Mass/Vol] 0.76 mg/dL Normal 0.60-1.20 [facility] Comment on above: Performed By: #### H CV RNA DIAG, HBSAB, HAABT, HCV RX PCR, HBSAG, HBCAB #### [facility] , GFR/1.73 sq M.predicted MDRD (S/P/Bld) [Vol rate/Area] mL/min/{1.73_m2} Normal [facility] Comment on above: Performed By: #### H CV RNA DIAG, HBSAB, HAABT, HCV RX PCR, HBSAG, HBCAB #### [facility] , Globulin (S) [Mass/Vol] 2.3 g/dL Normal [facility] Comment on above: Performed By: #### H CV RNA DIAG, HBSAB, HAABT, HCV RX PCR, HBSAG, HBCAB #### [facility] , Glucose [Mass/Vol] 86 mg/dL Normal 70-100 [facility] Comment on above: Result Comment: [place] Glucose Reference Range is dependent on time and content of last meal. Glucose of more than 200 mg/dL in a nonstressed, ambulatory subject supports the diagnosis of Diabetes Mellitus. ADA recommended reference range Performed By: #### H CV RNA DIAG, HBSAB, HAABT, HCV RX PCR, HBSAG, HBCAB #### [facility] , Potassium [Moles/Vol] 4.3 mmol/L Normal 3.5-5.1 [facility] Comment on above: Performed By: #### H CV RNA DIAG, HBSAB, HAABT, HCV RX PCR, HBSAG, HBCAB #### [facility] , Protein [Mass/Vol] 6.4 g/dL Normal 6.4-8.9 [facility] Comment on above: Performed By: #### H CV RNA DIAG, HBSAB, HAABT, HCV RX PCR, HBSAG, HBCAB #### [facility] , Sodium [Moles/Vol] 141 mmol/L Normal 136-145 [facility] Comment on above: Performed By: #### H CV RNA DIAG, HBSAB, HAABT, HCV RX PCR, HBSAG, HBCAB #### [facility] , Urea nitrogen [Mass/Vol] 15 mg/dL Normal 7-25 [facility] Comment on above: Performed By: #### H CV RNA DIAG, HBSAB, HAABT, HCV RX PCR, HBSAG, HBCAB #### [facility] , Creatinine [Mass/volume] in Serum or PlasmaOrdered By: Imad Asaad on 06-20-2024 Creatinine [Mass/Vol] Creatinine [Mass/v olume] in Serum or Plasma 0.60-1.20 [facility] Eosinophils Auto (Bld) [#/Vo l]Ordered By: Imad Asaad on 06-20-2024 Eosinophils (Bld) [#/Vol] Automated eosinophil count 0.0-0.45 [facility] Eosinophils/100 WBC Auto (Bl d)Ordered By: Imad Asaad on 06-20-2024 Eosinophils/100 WBC (Bld) Automated eosinophil % . [facility] Erythrocyte distribution wid th Auto (RBC) [Ratio]Ordered By: ad [facility] 06-20-2024 Erythrocyte distribution width (RBC) [Ratio] Erythrocyte distribution width [Ratio] by Automated count 11.9-15.3 [facility] Globulin Calc (S) [Mass/Vol] Ordered By: ad [facility] 06-20-2024 Globulin (S) [Mass/Vol] Serum globulin measurement by calculation (mass/volume) [facility] Glucose [Mass/volume] in Ser um or PlasmaOrdered By: [facility] 06-20-2024 Glucose [Mass/Vol] Glucose [Mass/volume ] in Serum or Plasma 70-100 [facility] Comment on above: ADA recommended refe rence rangeRandom Glucose Reference Range is dependent on time and content of last meal. Glucose of more than 200 mg/dL in a nonstressed, ambulatory subject supports the diagnosis of Diabetes Mellitus. Hematocrit Auto (Bld) [Volum e fraction]Ordered By: ad [facility] 06-20-2024 Hematocrit (Bld) [Volume fraction] Hematocrit [Volume Fraction] of Blood by Automated count 34.0-46.4 [facility] Hemoglobin [Mass/volume] in BloodOrdered By: [facility] 06-20-2024 Hemoglobin (Bld) [Mass/Vol] Hemoglobin [Mass/volume] in Blood 11.8-15.4 [facility] INR in Platelet poor plasma by Coagulation assayOrdered By: ad [facility] 06-20-2024 INR Coag (PPP) [Relative time] INR in Platelet poor plasma by Coagulation assay [facility] Comment on above: INR Therapeutic Rang e [...] in Blood by Automated counOrdered By: ad [facility] 06-20-2024 WBC corrected for nucl RBC Auto (Bld) [#/Vol] Leukocytes [#/volume] corrected for nucleated erythrocytes in Blood by Automated coun 3.8-11.6 [facility] Lymphocytes Auto (Bld) [#/Vo l]Ordered By: Imad Asaad on 06-20-2024 Lymphocytes (Bld) [#/Vol] Lymphocytes [#/volume] in Blood by Automated count 1.00-4.8 [facility] Lymphocytes/100 WBC Auto (Bl d)Ordered By: Imad Asaad on 06-20-2024 Lymphocytes/100 WBC (Bld) Lymphocytes/100 leukocytes in Blood by Automated count . [facility] MCH Auto (RBC) [Entitic mass ]Ordered By: Imad Asaad on 06-20-2024 MCH (RBC) [Entitic mass] MCH [Entitic mass] by Automated count 24.7-34.3 [facility] MCHC Auto (RBC) [Mass/Vol]Or dered By: Imad Asaad on 06-20-2024 MCHC (RBC) [Mass/Vol] MCHC [Mass/volume] by Automated count 32.0-35.0 [facility] MCV Auto (RBC) [Entitic vol] Ordered By: Imad Asaad on 06-20-2024 MCV (RBC) [Entitic vol] MCV [Entitic volume] by Automated count 80-100 [facility] Monocytes Auto (Bld) [#/Vol] Ordered By: Imad Asaad on 06-20-2024 Monocytes (Bld) [#/Vol] Automated blood monocyte count 0.0-0.8 [facility] Monocytes/100 WBC Auto (Bld) Ordered By: Imad Asaad on 06-20-2024 Monocytes/100 WBC (Bld) Automated monocyte % . [facility] Neutrophils Auto (Bld) [#/Vo l]Ordered By: Imad Asaad on 06-20-2024 Neutrophils (Bld) [#/Vol] Neutrophils [#/volume] in Blood by Automated count 1.8-7.7 [facility] Neutrophils/100 WBC Auto (Bl d)Ordered By: Imad Asaad on 06-20-2024 Neutrophils/100 WBC (Bld) Automated neutrophil % . [facility] No Panel InformationOrdered By: Flip Morejon on 06-20-2024 Estimated GFR (CKD-EPI) > 60.0 mL/Min [facility] Creatinine Clearance (Chem N/A [facility] Nucleated erythrocytes [Pres ence] in Blood by Automated countOrdered By: Flip Morejon on 06-20-2024 Nucleated RBC Auto Ql (Bld) Nucleated erythrocytes [Presence] in Blood by Automated count 0-0.5 [facility] Platelet mean volume Auto (B ld) [Entitic vol]Ordered By: Flip Morejon on 06-20-2024 Platelet mean volume (Bld) [Entitic vol] Platelet mean volume [Entitic volume] in Blood by Automated count 6.3-10.7 [facility] Platelets Auto (Bld) [#/Vol] Ordered By: luigi Morejon on 06-20-2024 Platelets (Bld) [#/Vol] Platelets [#/volume] in Blood by Automated count 150-450 [facility] Potassium [Moles/volume] in Serum or PlasmaOrdered By: luigi Morejon on 06-20-2024 Potassium [Moles/Vol] Potassium [Moles/v olume] in Serum or Plasma 3.5-5.1 [facility] Protein [Mass/volume] in Ser um or PlasmaOrdered By: luigi Morejon on 06-20-2024 Protein [Mass/Vol] Protein [Mass/volume ] in Serum or Plasma 6.4-8.9 [facility] Prothrombin Time INRon 06-20 INR Coag (PPP) [Relative time] 1.0 {INR} Normal [facility] Comment on above: Result Comment: [...] heart valves: 3 - 4.5 PERFORMED BY: [facility] [address] [place] [address] PATHOLOGIST INDUSTRIAL THERAPIST DAMON MONROY M.D. Performed By: #### C BC, PT, CMP #### [facility] [address] [id number] [facility] PT Coag (PPP) [Time] 11.3 s Normal 9.0-12.9 [facility] Comment on above: Result Comment: A he matocrit value greater than 55% may lead to inaccurate results in coagulation testing. Patients having hematocrit values >55% require a special collection tube for coagulation studies. Please contact the laboratory at [phone] for redraw instructions. Performed By: #### C BC, PT, CMP #### [facility] [address] [place] [address] [facility] Prothrombin time (PT)Ordered By: Flip Morejon on 06-20-2024 PT Coag (PPP) [Time] Prothrombin time (PT) 9.0- 12.9 [facility] Comment on above: A hematocrit value g reater than 55% may lead to inaccurate results in coagulation testing. Patients having hematocrit values >55% require a special collection tube for coagulation studies. Please contact the laboratory at [phone] for redraw instructions. RBC Auto (Bld) [#/Vol]Ordere d By: Imluigi Morejon on 06-20-2024 RBC (Bld) [#/Vol] Erythrocytes [#/volu me] in Blood by Automated count 3.60-5.00 [facility] Serum or plasma albumin/glob ulin mass ratioOrdered By: Imad Asaad 06-20-2024 Albumin/Globulin [Mass ratio] Serum or plasma albumin/globulin mass ratio [facility] Serum or plasma anion gap de terminationOrdered By: Imad Asaad on 06-20-2024 Anion gap [Moles/Vol] Serum or plasma an ion gap determination 6.0-15.0 [facility] Sodium [Moles/volume] in Ser um or PlasmaOrdered By: Imad Asaad on 06-20-2024 Sodium [Moles/Vol] Sodium [Moles/volume ] in Serum or Plasma 136-145 [facility] Urea nitrogen [Mass/volume] in Serum or PlasmaOrdered By: Imad Asaad on 06-20-2024 Urea nitrogen [Mass/Vol] Urea nitrogen [Mass/volume] in Serum or Plasma 11-23 [facility] WBC Auto (Bld) [#/Vol]Ordere d By: Flip Morejon on 06-20-2024 WBC (Bld) [#/Vol] Leukocytes [#/volume ] in Blood by Automated count 3.8-11.6 [facility] US liveron 04-19-2024 liver [facility] [place] [address] [place] [address] Ultrasound Report Signed Patient: Sangeeta Nicholson MR#: [id number] : 1990 Acct:[id number] Age/Sex: 34 / F ADM Date: 04/19/24 Loc: Room: Type: [facility] Attending Dr: Flip Morejon MD Ordering Provider: [...] MASS.. Impression dictated by: Alexis Kim Jr., D.O.04/19/2024 2:35 PM Dictation Location: [place] [address] Tech: Nahed Anjum Transcribed By: PWS 04/19/24 143 Dictated By: Alexis Kim Jr DO 04/19/24 1435 Signed By: 04/19/24 143 Normal [facility] CBC AND AUTO DIFFon 03-12-20 ABSOLUTE BASOPHIL 0.0 X10E9/L Normal 0.0-0.2 [facility] Comment on above: Performed By: #### C BCA, 99940-3, CMP, 1988-5, 3040-3 #### [facility] ([id number]) [address] [place] [address] ABSOLUTE NEUTROPHIL 2.8 X10E9/L Normal 1.5-6.6 [facility] Comment on above: Performed By: #### Ethan MIRAMONTES, , [facility], 1987-08, 3039-07 #### [facility] ([id number]) [address] [place] [address] 89724 Basophils/100 WBC (Bld) 0.0 % Normal [facility] Comment on above: Performed By: #### Ethan MIRAMONTES, , [facility], 1987-08, 3039-07 #### [facility] ([id number]) [address] [place] [address]249 Eosinophils (Bld) [#/Vol] 0.0 10*3/uL Normal 0.0-0.4 [facility] Comment on above: Performed By: #### Ethan MIRAMONTES, , [facility], 1987-08, 3039-07 #### [facility] ([id number]) [address] [place] [address] 86033 Eosinophils/100 WBC (Bld) 0.0 % Normal [facility] Comment on above: Performed By: #### Ethan MIRAMONTES, , [facility], 1987-08, 3039-07 #### [facility] ([id number]) [address] [place] [address] 95635 Erythrocyte distribution width (RBC) [Ratio] 16.6 % High 11.5-15.0 [facility] Comment on above: Performed By: #### Ethan MIRAMONTES, , [facility], 3039-07 #### [facility] ([id number]) [address] [place] [address] 22274 Hematocrit (Bld) [Volume fraction] 38.7 % Normal 35-47 [facility] Comment on above: Performed By: #### Ethan MIRAMONTES, , CMP, 3039-07 #### [facility] ([id number]) [address] [place] [address] 07727 Hemoglobin (Bld) [Mass/Vol] 13.1 g/dL Normal 11.7-15.5 [facility] Comment on above: Performed By: #### Ethan MIRAMONTES, , [facility], 1987-08, 3039-07 #### [facility] ([id number]) [address] [place] [address]39 Lymphocytes (Bld) [#/Vol] 1.3 10*3/uL Normal 1.0-3.5 [facility] Comment on above: Performed By: #### Ethan MIRAMONTES, , [facility], 1987-08, 3039-07 #### [facility] ([id number]) [address] [place] [address] 79443 Lymphocytes/100 WBC (Bld) 30.7 % Normal [facility] Comment on above: Performed By: #### Ethan MIRAMONTES, , [facility], 1987-08, 3039-07 #### [facility] ([id number]) [address] [place] [address] 71432 MCH (RBC) [Entitic mass] 30.6 pg Normal 27-34 [facility] Comment on above: Performed By: #### Ethan MIRAMONTES, , [facility], 1987-08, 3039-07 #### [facility] ([id number]) [address] [place] [address] 73778 MCHC (RBC) [Mass/Vol] 33.8 g/dL Normal 32-36 [facility] Comment on above: Performed By: #### Ethan MIRAMONTES, , [facility], 1987-08, 3039-07 #### [facility] ([id number]) [address] [place] [address] 90064 MCV (RBC) [Entitic vol] 91 fL Normal 80-100 [facility] Comment on above: Performed By: #### Ethan MIRAMONTES, , CMP, 1987-08, 3039-07 #### [facility] ([id number]) [address] [place] [address] 11332 Monocytes (Bld) [#/Vol] 0.2 10*3/uL Normal 0-0.9 [facility] Comment on above: Performed By: #### Ethan MIRAMONTES, , CMP, 1987-08, 3039-07 #### [facility] ([id number]) [address] [place] [address] 04590 Monocytes/100 WBC (Bld) 4.5 % Normal [facility] Comment on above: Performed By: #### Ethan MIRAMONTES, , CMP, 1987-08, 3039-07 #### [facility] ([id number]) [address] [place] [address] 58740 Neutrophils/100 WBC (Bld) 64.8 % Normal [facility] Comment on above: Performed By: #### Ethan MIRAMONTES, , [facility], 1987-08, 3039-07 #### [facility] ([id number]) [address] [place] [address] 57444 Platelet mean volume (Bld) [Entitic vol] 8.8 fL Normal 7-12 [facility] Comment on above: Performed By: #### Ethan MIRAMONTES, , CMP, 1987-08, 3039-07 #### [facility] ([id number]) [address] [place] [address] 98285 Platelets (Bld) [#/Vol] 146 10*3/uL Low 150-450 [facility] Comment on above: Performed By: #### Ethan MIRAMONTES, , CMP, 1987-08, 3039-07 #### [facility] ([id number]) [address] [place] [address] 35360 RBC COUNT 4.28 X10E12/L Normal 3.80-5.20 [facility] Comment on above: Performed By: #### C BCA, , CMP, 1987-08, 3039-07 #### [facility] ([id number]) [address] [place] [address] 08604 WBC (Bld) [#/Vol] 4.3 10*3/uL Normal 4.0-11.0 [facility] Comment on above: Performed By: #### C BCA, , CMP, 1987-08, 3039-07 #### [facility] ([id number]) [address] [place] [address] 93650 COMPREHENSIVE METABOLIC PANE [facility] 03-12-2024 Albumin [Mass/Vol] 3.5 g/dL Normal 3.2-5.3 [facility] Comment on above: Performed By: #### C BCA, , CMP, 1987-08, 3039-07 #### [facility] ([id number]) [address] [place] [address] 46410 ALP [Catalytic activity/Vol] 73 U/L Normal 39-130 [facility] Comment on above: Performed By: #### C BCA, , CMP, 1987-08, 3039-07 #### [facility] ([id number]) [address] [place] [address] 89087 ALT [Catalytic activity/Vol] 56 U/L High 0-31 [facility] Comment on above: Performed By: #### C BCA, , CMP, 3039-07 #### [facility] ([id number]) [address] [place] [address] 00119 Anion gap [Moles/Vol] 5 mmol/L Normal 5-15 [facility] Comment on above: Performed By: #### C BCA, , CMP, 3039-07 #### [facility] ([id number]) [address] [place] [address] 76714 AST [Catalytic activity/Vol] 50 U/L High 0-41 [facility] Comment on above: Performed By: #### C BCA, , [facility], 1987-08, 3039-07 #### [facility] ([id number]) [address] [place] [address] 29220 Bilirubin [Mass/Vol] 0.5 mg/dL Normal 0.3-1.2 [facility] Comment on above: Performed By: #### C BCA, , [facility], 1987-08, 3039-07 #### [facility] ([id number]) [address] [place] [address] 66540 Calcium [Mass/Vol] 9.7 mg/dL Normal 8.5-10.5 [facility] Comment on above: Performed By: #### Ethan BCA, , [facility], 1987-08, 3039-07 #### [facility] ([id number]) [address] [place] [address] 82879 Chloride [Moles/Vol] 109 mmol/L Normal 98-109 [facility] Comment on above: Performed By: #### Ethan BCA, , [facility], 3039-07 #### [facility] ([id number]) [address] [place] [address] 62793 CO2 [Moles/Vol] 25 mmol/L Normal 22-32 [facility] Comment on above: Performed By: #### C BCA, , [facility], 3039-07 #### [facility] ([id number]) [address] [place] [address] 11558 Creatinine [Mass/Vol] 0.63 mg/dL Normal 0.40-1.00 [facility] Comment on above: Result Comment: METH OD TRACEABLE TO IDMS STANDARD Performed By: #### C FE, , CMP, 1987-08, 3039-07 #### [facility] ([id number]) [address] [place] [address] 31074 eGFR (CKD-EPI) NON-RACE DEPENDENT >90 Normal >59 [facility] Comment on above: Result Comment: Reported eGFR is based on the CKD-EPI 2020 equation that does not use a race coefficient. Performed By: #### C FE, , CMP, 1987-08, 3039-07 #### [facility] ([id number]) [address] [place] [address] 68018 Glucose [Mass/Vol] 103 mg/dL High 65-99 [facility] Comment on above: Performed By: #### C FE, , [facility], 1987-08, 3039-07 #### [facility] ([id number]) [address] [place] [address] 23656 Potassium [Moles/Vol] 4.4 mmol/L Normal 3.5-5.0 [facility] Comment on above: Performed By: #### C FE, , [facility], 3039-07 #### [facility] ([id number]) [address] [place] [address] 89976 Protein [Mass/Vol] 5.6 g/dL Low 6.0-8.0 [facility] Comment on above: Performed By: #### C FE, , CMP, 3039-07 #### [facility] ([id number]) [address] [place] [address] 98382 Sodium [Moles/Vol] 139 mmol/L Normal 134-146 [facility] Comment on above: Performed By: #### C FE, , CMP, 3039-07 #### [facility] ([id number]) [address] [place] [address] 06922 Urea nitrogen [Mass/Vol] 18 mg/dL Normal 5-23 [facility] Comment on above: Performed By: #### C FE, , [facility], 1987-08, 3039-07 #### [facility] ([id number]) [address] [place] [address] 77668 DRUG SCREEN, URINEon 024 AMPHETAMINE/METHAMP Negative Normal NEG [facility] Comment on above: Result Comment: AMPH /METH screening cut off = 1000 ng/mL Performed By: #### C FE, , [facility], 1987-08, 3039-07 #### [facility] ([id number]) [address] [place] [address] 48944 BARBITURATES Negative Normal NEG [facility] Comment on above: Result Comment: Ana iturates screening cut off value = 200 ng/mL Performed By: #### C FE, , [facility], 1987-08, 3039-07 #### [facility] ([id number]) [address] [place] [address] 23756 BENZODIAZEPINES Negative Normal NEG [facility] Comment on above: Result Comment: Jeramie odiazepines screening cut off value = 200 ng/mL Performed By: #### Ethan MIRAMONTES, , [facility], 1987-08, 3039-07 #### [facility] ([id number]) [address] [place] [address] 04660 CANNABINOIDS Positive Abnormal NEG [facility] Comment on above: Result Comment: Conf irmation available upon request. Cannabinoids/THC screening cut off value = 50 ng/mL Performed By: #### C FE, , [facility], 1987-08, 3039-07 #### [facility] ([id number]) [address] [place] [address] 46116 COCAINE METABOLITE Negative Normal NEG [facility] Comment on above: Result Comment: Coca ine screening cut off value = 300 ng/mL Performed By: #### C FE, , [facility], 3039-07 #### [facility] ([id number]) [address] [place] [address] 84354 ECSTASY Negative Normal NEG [facility] Comment on above: Result Comment: Ecst asy screening cut off value = 500 ng/mL This report is intended for use in clinical monitoring or management of patients. Performed By: #### C FE, , [facility], 3039-07 #### [facility] ([id number]) [address] [place], [place] [id number] METHADONE Negative Normal NEG [facility] Comment on above: Result Comment: Meth adone screening cut off value = 300 ng/mL. Performed By: #### C FE, , [facility], 3039-07 #### [facility] ([id number]) [address] [place] [address] 71270 OPIATES Negative Normal [facility] Comment on above: Result Comment: Opia chalo screening cut off value = 300 ng/mL NOTE: This test is used for the detection of codeine, hydrocodone (>1000 ng/mL), morphine and hydromorphone (>900 ng/mL) in urine. Performed By: #### C FE, , [facility], 3039-07 #### [facility] ([id number]) [address] [place] [address] [place] [address] OXYCODONE Negative Normal NEG [facility] Comment on above: Result Comment: Oxyc odone screening cut off value = 300 ng/mL NOTE: This test is used for the detection of oxycodone and oxymorphone in urine. Performed By: #### C FE, , [facility], 1987-08, 3039-07 #### [facility] ([id number]) [address] [place] [id number] PHENCYCLIDINE Negative Normal NEG [facility] Comment on above: Result Comment: Phen cyclidine screening cut off value = 25 ng/mL Performed By: #### C FE, , RADHA, 1985-08, 3039-07 #### [facility] ([id number]) [address] [place] [id number] ETHANOLon 03-12-2024 Ethanol [Mass/Vol] mg/dL Normal 0.00-0.08 [facility] Comment on above: Result Comment: This report is intended for use in clinical monitoring or management of patients. Performed By: #### C FE, , RADHA, 1985-08, 3039-07 #### [facility] ([id number]) [address] [place] [address] 69141 HCG ( test) Ql (U)o n 03-12-2024 Beta HCG ( test) Ql (U) Negative Normal NEG [facility] Comment on above: Performed By: #### C FE, , [facility], 3039-07 #### [facility] ([id number]) [address] [place] [address] 84271 URN MACROSCOPIC NURon 2023 BILIRUBIN ERA Negative Normal NEG [facility] Comment on above: Performed By: #### Ethan MIRAMONTES, , [facility], 3039-07 #### [facility] ([id number]) [address] [place] [address] 05451 BLOOD/HGB ERA Negative Normal NEG [facility] Comment on above: Performed By: #### Ethan MIRAMONTES, , CMP, 3039-07 #### [facility] ([id number]) [address] [place] [address] 21695 GLUCOSE ERA Negative Normal NEG [facility] Comment on above: Performed By: #### C FE, , CMP, 0-3 #### [facility] ([id number]) [address] [place] [address] 71900 KETONES ERA Negative Normal NEG [facility] Comment on above: Performed By: #### C BCA, , CMP, 1985-08, 3039-07 #### [facility] ([id number]) [address] [place] [address] 98023 LEUKOCYTE ESTERASE ERA Negative Normal NEG [facility] Comment on above: Performed By: #### C BCA, , [facility], 1987-08, 3039-07 #### [facility] ([id number]) [address] [place] [address] 47348 NITRITE ERA Positive Abnormal NEG [facility] Comment on above: Performed By: #### Ethan BCA, , [facility], 1987-08, 3039-07 #### [facility] ([id number]) [address] [place] [address] [place] [address] PH ERA 7.5 Normal 5.0-8.5 [facility] Comment on above: Performed By: #### Ethan BCA, , [facility], 1987-08, 3039-07 #### [facility] ([id number]) [address] [place] [address] 91577 PROTEIN ERA Negative Normal NEG [facility] Comment on above: Performed By: #### C BCA, , [facility], 1987-08, 3039-07 #### [facility] ([id number]) [address] [place] [address] 29378 SPECIFIC GRAVITY ERA 1.020 Normal 1.003-1.035 [facility] Comment on above: Performed By: #### Ethan BCA, , CMP, 1985-08, 3039-07 #### [facility] ([id number]) [address] [place] [address] 39767 UROBILINOGEN ERA 2.0 eu/dL High <1.1 [facility] Comment on above: Performed By: #### C BCA, 67556-8, CMP, 1987-5, 3040-3 #### [facility] ([id number]) [address] [facility] [place] [address] Diagnostic impression interp retation by molecular genetics method narrativeOrdered By: Flip Morejon on 02-21-2024 Diagnostic impression Molgen Willi (Unsp spec) [Interp] Diagnostic impression [Interpretation] in Specimen Narrative . [facility] Comment on above: Positive HCV antibod y screen with the presence of HCV RNAis consistent with active infection.Performed at: [employer] [id number] Director: Jeff Pitt PhD, Phone: [phone] at: [facility] [employer] [id number] Director: Vernon Church MD, Phone: [phone] Hep C Ab wRfx to Qnt PCRon 1 HCV Log10 6.708 Normal . [facility] Comment on above: Result Comment: Resu lt Units: log10 IU/mL Performed By: #### H CV RNA DIAG, HBSAB, HAABT, HCV RX PCR, HBSAG, HBCAB #### [facility] , Hepatitis C Quantitation [id number] Normal . [facility] Comment on above: Performed By: #### H CV RNA DIAG, HBSAB, HAABT, HCV RX PCR, HBSAG, HBCAB #### [facility] , Hepatitis C Virus Antibody Reactive Critically abnormal Non Reactive [facility] Comment on above: Performed By: #### H CV RNA DIAG, HBSAB, HAABT, HCV RX PCR, HBSAG, HBCAB #### [facility] , Interpretation Comment Normal . [facility] Comment on above: Result Comment: Posi tive HCV antibody screen with the presence of HCV RNA is consistent with active infection. Performed at: [facility] [address] [id number] Scientific Informatics Analyst: Jeff Pitt PhD, Phone: [phone] Performed at: [address] [id number] Scientific Informatics Analyst: Vernon Church MD, Phone: [phone] Performed By: #### H CV RNA DIAG, HBSAB, HAABT, HCV RX PCR, HBSAG, HBCAB #### [facility] , Hep C RNA Diagnosison 2023 HCV RNA log10, Confirm 6.805 Normal . [facility] Comment on above: Result Comment: Resu lt Units: log10 IU/mL PERFORMED BY: [address] [place] [address] PATHOLOGIST INDUSTRIAL THERAPIST PALMIRA GLEZ M.D. Performed By: #### H CV RNA DIAG, HBSAB, HAABT, HCV RX PCR, HBSAG, HBCAB #### [facility] , HCV RNA, Quant, Confirm [id number] Normal . [facility] Comment on above: Result Comment: HCV RNA detected HCV RNA viral loads >/= 25 IU/mL indicate current HCV infection. Performed By: #### H CV RNA DIAG, HBSAB, HAABT, HCV RX PCR, HBSAG, HBCAB #### [facility] , HCV RNA, Quantitation See Final Results Normal . [facility] Comment on above: Performed By: #### H CV RNA DIAG, HBSAB, HAABT, HCV RX PCR, HBSAG, HBCAB #### [facility] , Test Information: Comment Normal . [facility] Comment on above: Result Comment: The quantitative range of this assay is 15 IU/mL to 100 million IU/mL. Performed at: [address] [id number] Scientific Informatics Analyst: Vernon Church MD, Phone: [phone] Performed By: #### H CV RNA DIAG, HBSAB, HAABT, HCV RX PCR, HBSAG, HBCAB #### [facility] , Result Comment: The quantitative range of this assay is 15 IU/mL to 100 million IU/mL. Hepatitis A Antibody Totalon 02-21-2024 Hepatitis A Antibody Total Negative Normal Negative [facility] Comment on above: Result Comment: [...] total antibody results to IgM (e.g., panel #[id number] HAV Antibody w/ Rfx). Performed at: [facility] [place] [address] [place], [place] [id number] Scientific Informatics Analyst: Jeff Pitt PhD, Phone: [phone] Performed By: #### H CV RNA DIAG, HBSAB, HAABT, HCV RX PCR, HBSAG, HBCAB #### [facility] , Hepatitis A virus Ab [Presen ce] in Serum by ImmunoassayOrdered By: Flip Asaluigi on 02-21-2024 HAV Ab IA Ql (S) Hepatitis A virus Ab [Presence] in Serum by Immunoassay Negative [facility] Comment on above: Comment: The HAV [...] HAVtotal antibody results to IgM (e.g., panel #[id number] HAVAntibody w/ Rfx).Performed at: [facility] [place] [place], [place] [id number] Director: Jeff Pitt PhD, Phone: [phone] Hepatitis B Core Antibodyon 02-21-2024 Hepatitis B Core Antibody Positive Critically abnormal Negative [facility] Comment on above: Performed By: #### H CV RNA DIAG, HBSAB, HAABT, HCV RX PCR, HBSAG, HBCAB #### [facility] , Hepatitis B Surface Antibody on 02-21-2024 Hepatitis B Surface Antibody Reactive Normal . [facility] Comment on above: Result Comment: [...] HBsAg Screen Negative Normal Negative [facility] Comment on above: Result Comment: PERF ORMED BY: [facility] [address] [place] [address] PATHOLOGIST INDUSTRIAL THERAPIST PALMIRA GLEZ M.D. Performed By: #### H CV RNA DIAG, HBSAB, HAABT, HCV RX PCR, HBSAG, HBCAB #### [facility] , Hepatitis B virus core antib geovany assayOrdered By: Flip Morejon on 02-21-2024 Hepatitis B Core Total Antibody Positive Abnormal Negative [facility] Hepatitis C virus IgG Ab [Pr esence] in Serum or Plasma by ImmunoassayOrdered By: Imad Jean-Pierre on 02-21-2024 HCV IgG IA Ql Hepatitis C virus Ig G Ab [Presence] in Serum or Plasma by Immunoassay Abnormal Non Reactive [facility] Hepatitis C virus RNA [Units /volume] (viral load) in Serum or Plasma by BETZAIDA with probOrdered By: Imad Leonidad on 02-21-2024 HCV RNA BETZAIDA+probe Qn Hepatitis C virus R NA [Units/volume] (viral load) in Serum or Plasma by BETZAIDA with prob . [facility] Comment on above: HCV RNA detectedHCV RNA viral loads >/= 25 IU/mL indicate current HCVinfection. Hepatitis C virus RNA [log u nits/volume] (viral load) in Serum or Plasma by BETZAIDA withOrdered By: Imad Jean-Pierre on 02-21-2024 HCV RNA BETZAIDA+probe [Log units/Vol] Hepatitis C virus RNA [log units/volume] (viral load) in Serum or Plasma by BETZAIDA with . [facility] Comment on above: Result Units: log10 IU/mL No Panel InformationOrdered By: Flip Morejon on 02-21-2024 Hepatitis C RNA Qnt (PCR) Test Info Comment . [facility] Comment on above: The quantitative ran ge of this assay is 15 IU/mL to 100million IU/mL. Hepatitis Comment Comment . [facility] Comment on above: The quantitative ran ge of this assay is 15 IU/mL to 100million IU/mL.Performed at: [facility] [address] [id number] Director: Vernon Church MD, Phone: [phone] Serum hepatitis B virus surf kelsey antibody detectionOrdered By: Flip Morejon on 02-21-2024 HBV surface Ab Ql (S) Hepatitis B virus surface Ab [Presence] in Serum . [facility] Comment on above: Non Reactive: Not [...] in Serum or Plasma by Immunoassay Negative [facility] Serum or plasma hepatitis C virus genotype identification by probe and target amplifiOrdered By: Flip Morejon on 02-21-2024 HCV genotype BETZAIDA+probe Nom HCV genotyping ser/plas amplified probe . [facility] Comment on above: This test was develo ped and its performance characteristicsdetermined by [employer]. It has not been cleared orapproved by the Food and Drug Administration.Performed at: [address] [id number] Director: Vernon Church MD, Phone: [phone] PAP 02-15-2024 Cytology report Cyto stain Doc (Cvx/Vag) Note Invalid Interpretation Code [facility] Comment on above: Result Comment: TEST S RESULT FLAG UNITS REF RANGE LAB Clinician Provided Cytology Information Source.............Cervix No. of containers..01 ThinPrep Vial DIAGNOSIS: 01 NEGATIVE FOR INTRAEPITHELIAL LESION OR MALIGNANCY. Specimen adequacy: 01 Satisfactory for evaluation. Endocervical and/or squamous metaplastic cells (endocervical component) are present. Performed by: 01 Colette Clark, System Controller ([facility]) . 01 Note: Note 01 The [...] <-Panic Low,>-Panic High,A-Abnormal,AA-Critical Abnormal Performed at: [address] [id number] Ragini Lundberg MD, Performed By: #### 3 [id number] #### [facility] [address] [place] [address]14 HPV 16+18+31+33+35+39+45+5 1+52+56+58+59+66+68 DNA Probe+sig amp Ql (Cvx) Negative Invalid Interpretation Code Negative [facility] Comment on above: Result Comment: This nucleic acid amplification test detects fourteen high-risk HPV types (16,18,31,33,35,39,45,51,52,56,58,59,66,68) without differentiation. Performed at: [facility] [place] [address] [facility], [place] [id number] MD Tamika Eid Performed at: =G [facility] [place] [address] [place], [place] [id number] MD Tamika Eid Performed By: #### 3 [id number] #### [facility] [address] [place] [address] PAP [phone] 02-10-2024 Collection Technique BRUSH-SPATULA Normal F [facility] Comment on above: Performed By: #### 3 [id number] #### [facility] [address] [place] [address] Gynecological Body Site CERVIX Normal [facility] Comment on above: Performed By: #### 3 [id number] #### [facility] [address] [place] [address] CBC AND AUTO DIFFon 01-14-20 24 ABSOLUTE BASOPHIL 0.0 X10E9/L Normal 0.0-0.2 [facility] Comment on above: Performed By: #### C FE, , [facility], 3039-07 #### [facility] ([id number]) [address] [place] [address] 53130 ABSOLUTE NEUTROPHIL 1.5 X10E9/L Normal 1.5-6.6 [facility] Comment on above: Performed By: #### C FE, , CMP, 3039-07 #### [facility] ([id number]) [address] [place] [address] 91887 Basophils/100 WBC (Bld) 0.0 % Normal [facility] Comment on above: Performed By: #### C FE, , CMP, 3039-07 #### [facility] ([id number]) [address] [place] [address]2586 Eosinophils (Bld) [#/Vol] 0.0 10*3/uL Normal 0.0-0.4 [facility] Comment on above: Performed By: #### Ethan MIRAMONTES, , [facility], 1985-08, 3039-07 #### [facility] ([id number]) [address] [place] [address] 81707 Eosinophils/100 WBC (Bld) 0.0 % Normal [facility] Comment on above: Performed By: #### Ethan MIRAMONTES, , [facility], 1987-08, 3039-07 #### [facility] ([id number]) [address] [place] [address] 02903 Erythrocyte distribution width (RBC) [Ratio] 14.1 % Normal 11.5-15.0 [facility] Comment on above: Performed By: #### Ethan MIRAMONTES, , [facility], 1987-08, 3039-07 #### [facility] ([id number]) [address] [place] [address] 14982 Hematocrit (Bld) [Volume fraction] 37.3 % Normal 35-47 [facility] Comment on above: Performed By: #### Ethan MIRAMONTES, , [facility], 1987-08, 3039-07 #### [facility] ([id number]) [address] [place] [address] 68083 Hemoglobin (Bld) [Mass/Vol] 12.6 g/dL Normal 11.7-15.5 [facility] Comment on above: Performed By: #### Ethan MIRAMONTES, , [facility], 1987-08, 3039-07 #### [facility] ([id number]) [address] [place] [address] 17942 Lymphocytes (Bld) [#/Vol] 1.2 10*3/uL Normal 1.0-3.5 [facility] Comment on above: Performed By: #### Ethan MIRAMONTES, , [facility], 1987-08, 3039-07 #### [facility] ([id number]) [address] [place] [address] 06328 Lymphocytes/100 WBC (Bld) 41.9 % Normal [facility] Comment on above: Performed By: #### Ethan MIRAMONTES, , [facility], 1987-08, 3039-07 #### [facility] ([id number]) [address] [place] [address] 47660 MCH (RBC) [Entitic mass] 30.1 pg Normal 27-34 [facility] Comment on above: Performed By: #### Ethan MIRAMONTES, , [facility], 1987-08, 3039-07 #### [facility] ([id number]) [address] [place] [address] 16715 MCHC (RBC) [Mass/Vol] 33.7 g/dL Normal 32-36 [facility] Comment on above: Performed By: #### Ethan MIRAMONTES, , [facility], 1987-08, 3039-07 #### [facility] ([id number]) [address] [place] [address] 08140 MCV (RBC) [Entitic vol] 90 fL Normal 80-100 [facility] Comment on above: Performed By: #### Ethan MIRAMONTES, , [facility], 1987-08, 3039-07 #### [facility] ([id number]) [address] [place] [address] 65996 Monocytes (Bld) [#/Vol] 0.2 10*3/uL Normal 0-0.9 [facility] Comment on above: Performed By: #### Ethan MIRAMONTES, , CMP, 1985-08, 3039-07 #### [facility] ([id number]) [address] [place] [address] 40395 Monocytes/100 WBC (Bld) 6.2 % Normal [facility] Comment on above: Performed By: #### Ethan MIRAMONTES, , CMP, 1987-08, 3039-07 #### [facility] ([id number]) [address] [place] [address] 52497 Neutrophils/100 WBC (Bld) 51.9 % Normal [facility] Comment on above: Performed By: #### Ethan MIRAMONTES, , CMP, 1987-08, 3039-07 #### [facility] ([id number]) [address] [place] [address] 44174 Platelet mean volume (Bld) [Entitic vol] 8.7 fL Normal 7-12 [facility] Comment on above: Performed By: #### Ethan MIRAMONTES, , [facility], 1987-08, 3039-07 #### [facility] ([id number]) [address] [place] [address] 32702 Platelets (Bld) [#/Vol] 106 10*3/uL Low 150-450 [facility] Comment on above: Performed By: #### Ethan MIRAMONTES, , [facility], 1987-08, 3039-07 #### [facility] ([id number]) [address] [place] [address] 06345 RBC COUNT 4.17 X10E12/L Normal 3.80-5.20 [facility] Comment on above: Performed By: #### Ethan MIRAMONTES, , CMP, 1987-08, 3039-07 #### [facility] ([id number]) [address] [place] [address] 24852 WBC (Bld) [#/Vol] 2.9 10*3/uL Low 4.0-11.0 [facility] Comment on above: Performed By: #### Ethan MIRAMONTES, , CMP, 1987-08, 3039-07 #### [facility] ([id number]) [address] [place] [address] 73514 COMPREHENSIVE METABOLIC PANE Elvin 01-14-2024 Albumin [Mass/Vol] 3.2 g/dL Normal 3.2-5.3 [facility] Comment on above: Performed By: #### C BCA, , CMP, 1987-08, 3039-07 #### [facility] ([id number]) [address] [place] [address] 96678 ALP [Catalytic activity/Vol] 72 U/L Normal 39-130 [facility] Comment on above: Performed By: #### Ethan BCA, , [facility], 1987-08, 3039-07 #### [facility] ([id number]) [address] [place] [address] 79279 ALT [Catalytic activity/Vol] 64 U/L High 0-31 [facility] Comment on above: Performed By: #### Ethan BCA, , [facility], 1987-08, 3039-07 #### [facility] ([id number]) [address] [place] [address] 02971 Anion gap [Moles/Vol] 3 mmol/L Low 5-15 [facility] Comment on above: Performed By: #### Ethan BCA, , [facility], 1987-08, 3039-07 #### [facility] ([id number]) [address] [place] [address] [place] [address] AST [Catalytic activity/Vol] 52 U/L High 0-41 [facility] Comment on above: Performed By: #### C BCA, , CMP, 1987-08, 3039-07 #### [facility] ([id number]) [address] [place] [address] 95512 Bilirubin [Mass/Vol] 0.5 mg/dL Normal 0.3-1.2 [facility] Comment on above: Performed By: #### C BCA, , CMP, 3039-07 #### [facility] ([id number]) [address] [place] [address] 61449 Calcium [Mass/Vol] 8.6 mg/dL Normal 8.5-10.5 [facility] Comment on above: Performed By: #### C BCA, , CMP, 3039-07 #### [facility] ([id number]) [address] [place] [address] 99000 Chloride [Moles/Vol] 112 mmol/L High 98-109 [facility] Comment on above: Performed By: #### C BCA, , [facility], 1987-08, 3039-07 #### [facility] ([id number]) [address] [place] [address] 43696 CO2 [Moles/Vol] 25 mmol/L Normal 22-32 [facility] Comment on above: Performed By: #### C BCA, , [facility], 3039-07 #### [facility] ([id number]) [address] [place] [address] 14639 Creatinine [Mass/Vol] 0.60 mg/dL Normal 0.40-1.00 [facility] Comment on above: Result Comment: METH OD TRACEABLE TO IDMS STANDARD Performed By: #### C BCA, , CMP, 3039-07 #### [facility] ([id number]) [address] [place] [address] 36748 eGFR (CKD-EPI) NON-RACE DEPENDENT >90 Normal >59 [facility] Comment on above: Result Comment: Reported eGFR is based on the CKD-EPI 2020 equation that does not use a race coefficient. Performed By: #### C BCA, , CMP, 3039-07 #### [facility] ([id number]) [address] [place] [address] 12865 Glucose [Mass/Vol] 94 mg/dL Normal 65-99 [facility] Comment on above: Performed By: #### C FE, , CMP, 1987-08, 3039-07 #### [facility] ([id number]) [address] [place] [address] 83481 Potassium [Moles/Vol] 3.4 mmol/L Low 3.5-5.0 [facility] Comment on above: Performed By: #### C FE, , [facility], 1987-08, 3039-07 #### [facility] ([id number]) [address] [place] [address] 00469 Protein [Mass/Vol] 5.1 g/dL Low 6.0-8.0 [facility] Comment on above: Performed By: #### Ethan MIRAMONTES, , [facility], 1987-08, 3039-07 #### [facility] ([id number]) [address] [place] [address] 68725 Sodium [Moles/Vol] 140 mmol/L Normal 134-146 [facility] Comment on above: Performed By: #### C FE, , [facility], 1987-08, 3039-07 #### [facility] ([id number]) [address] [place] [address] 09922 Urea nitrogen [Mass/Vol] 12 mg/dL Normal 5-23 [facility] Comment on above: Performed By: #### C BCA, , [facility], 1987-08, 3039-07 #### [facility] ([id number]) [address] [place] [address] 03437 HCG ( test) Ql (U)o n 01-14-2024 Beta HCG ( test) Ql (U) Negative Normal NEG [facility] Comment on above: Performed By: #### C BCA, , CMP, 1987-08, 3039-07 #### [facility] ([id number]) [address] [place] [address] 04650 MAGNESIUMon 01-14-2024 Magnesium [Mass/Vol] 1.8 mg/dL Normal 1.8-2.6 [facility] Comment on above: Performed By: #### Ethan MIRAOMNTES, , [facility], 1987-08, 3039-07 #### [facility] ([id number]) [address] [place] [address] 54461 Troponin I.cardiac High sens itivity method [Mass/Vol]on 01-14-2024 TROPONIN I, HIGH SENSITIVITY 4 ng/L Normal <16 [facility] Comment on above: Performed By: #### Ethan MIRAMONTES, , [facility], 1987-08, 3039-07 #### [facility] ([id number]) [address] [place] [address] 58049 URN MACROSCOPIC NURon 2023 BILIRUBIN ERA Negative Normal NEG [facility] Comment on above: Performed By: #### Ethan MIRAMONTES, , [facility], 1987-08, 3039-07 #### [facility] ([id number]) [address] [place] [address] [place] [address] BLOOD/HGB ERA Negative Normal NEG [facility] Comment on above: Performed By: #### Ethan MIRAMONTES, , [facility], 1987-08, 3039-07 #### [facility] ([id number]) [address] [place] [address] [place] [address] GLUCOSE ERA Negative Normal NEG [facility] Comment on above: Performed By: #### Ethan MIRAMONTES, , [facility], 1987-08, 3039-07 #### [facility] ([id number]) [address] [place] [address] [place] [address] KETONES ERA Negative Normal NEG [facility] Comment on above: Performed By: #### Ethan MIRAMONTES, , CMP, 1987-08, 3039-07 #### [facility] ([id number]) [address] [place] [address] 78328 LEUKOCYTE ESTERASE ERA Negative Normal NEG Pr [facility] Comment on above: Performed By: #### C BCA, , [facility], 1987-08, 3039-07 #### [facility] ([id number]) [address] [place] [address] 51212 NITRITE ERA Positive Abnormal NEG [facility] Comment on above: Performed By: #### C BCA, , [facility], 1987-08, 3039-07 #### [facility] ([id number]) [address] [place] [address] 12530 PH ERA 6.0 Normal 5.0-8.5 [facility] Comment on above: Performed By: #### C BCA, , [facility], 1987-08, 3039-07 #### [facility] ([id number]) [address] [place] [address] 14121 PROTEIN ERA Negative Normal NEG [facility] Comment on above: Performed By: #### C BCA, , [facility], 1987-08, 3039-07 #### [facility] ([id number]) [address] [place] [address] 09707 SPECIFIC GRAVITY ERA >=1.030 Normal 1.003-1.035 [facility] Comment on above: Performed By: #### C BCA, , [facility], 1987-08, 3039-07 #### [facility] ([id number]) [address] [place] [address] 60721 UROBILINOGEN ERA 1.0 eu/dL Normal <1.1 [facility] Comment on above: Performed By: #### C BCA, , CMP, 1987-08, 3039-07 #### [facility] ([id number]) [address] [place] [address] HGB A1C (GLYCO-HGB)on 2023 Glucose [Mass/Vol] 117 mg/dL Normal [facility] Comment on above: Performed By: #### Renee A1C, 18368-2, TSHR #### [facility] ([id number]) [address], [address] [place] [address] HbA1c (Bld) [Mass fraction] 5.7 % High 4.4-5.6 [facility] Comment on above: Result Comment: NOTE ADA Guidelines Result HgbA1c Normal : less than 5.7 % Prediabetes : 5.7 % to 6.4 % Diabetes : > 6.4 % Use with caution in patients with abnormal hemoglobin variants as the half-life of red blood cells and in vivo glycation rates are affected. Performed By: #### Renee A1C, 34776-7, TSHR #### [facility] ([id number]) [address], [address] [place] [address] Lipid 1996 panelon 4 Cholesterol [Mass/Vol] 99 mg/dL Low 150-200 Pr [facility] Comment on above: Performed By: ###Linda Long BCA, 21994-9, CMP, 1987-08, 3039- #### [facility] ([id number]) [address] [place] [address] Cholesterol in HDL [Mass/Vol] 29 mg/dL Low >39 [facility] Comment on above: Result Comment: HDL <40 mg/dL - High Risk HDL > or = 40mg/dL- Desirable HDL >60 mg/dL - Negative Risk Performed By: #### Ethan MIRAMONTES, , CMP, 1987-08, 3039-07 #### [facility] ([id number]) [address] [place] [address] 68195 Cholesterol in LDL [Mass/Vol] 44 mg/dL Normal <130 [facility] Comment on above: Result Comment: LDL <100 mg/dL - Desirable LDL >160 mg/dL - High Risk Performed By: #### Ethan MIRAMONTES, , [facility], 1987-08, 3039-07 #### [facility] ([id number]) [address] [place] [address] 01599 Cholesterol in VLDL [Mass/Vol] 26 mg/dL Normal 0-30 [facility] Comment on above: Performed By: #### Ethan MIRAMONTES, , [facility], 1987-08, 3039-07 #### [facility] ([id number]) [address] [place] [address] 93452 CHOLESTEROL:HDL 3.4 Normal 1.0-5.0 [facility] Comment on above: Performed By: #### Ethan MIRAMONTES, , [facility], 1987-08, 3039-07 #### [facility] ([id number]) [address] [place] [address] 65362 Triglyceride [Mass/Vol] 131 mg/dL Normal 27-150 [facility] Comment on above: Performed By: #### Ethan MIRAMONTES, , [facility], 3039-07 #### [facility] ([id number]) [address] [place] [address] 91821 Reference Lab Test IDon 05-0 VIT D 1 25 DIHYDROXY See Below Normal [facility] Comment on above: Result Comment: NOTE TEST RESULT FLAG UNIT REF.RANGE ------- Vit D,1,25 Dihydroxy 59.9 pg/mL 19.9-79.3 Test Performed By: [place] [address] Research And Development Tester: Krishna Mehta III #[id number] Performed By: #### Ethan MIRAMONTES, , [facility], 1987-08, 3039-07 #### [facility] ([id number]) [address] [place] [address] 46152 TSH WITH REFLEXon 09-08-2023 TSH 1.36 uIU/mL Normal 0.49-4.67 [facility] Comment on above: Performed By: ###Linda Long BCA, , [facility], 1987-08, 3039-07 #### [facility] ([id number]) [address] [place] [address] 61971 CBC AND AUTO DIFFon 08-19-19 24 Anisocytosis Ql (Bld) 2+ Abnormal NONE [facility] Comment on above: Performed By: ###Linda Long BCA, , [facility], 1987-08, 3039-07 #### [facility] ([id number]) [address] [place] [address] 09971 Erythrocyte distribution width (RBC) [Ratio] 23.1 % High 11.5-15.0 [facility] Comment on above: Performed By: ###Linda Long BCA, , [facility], 1987-08, 3039-07 #### [facility] ([id number]) [address] [place], [place] [address] Hematocrit (Bld) [Volume fraction] 26.3 % Low 35-47 [facility] Comment on above: Performed By: ###Linda Long BCA, , [facility], 1987-08, 3039-07 #### [facility] ([id number]) [address] [place] [address] 70324 Hemoglobin (Bld) [Mass/Vol] 9.3 g/dL Low 11.7-15.5 [facility] Comment on above: Performed By: #### Ethan MIRAMONTES, , [facility], 1987-08, 3039-07 #### [facility] ([id number]) [address] [place] [address] 75950 Lymphocytes (Bld) [#/Vol] 1.0 10*3/uL Normal 1.0-3.5 [facility] Comment on above: Performed By: #### Ethan MIRAMONTES, , [facility], 1987-08, 3039-07 #### [facility] ([id number]) [address] [place] [address] 44868 Lymphocytes/100 WBC (Bld) 48.0 % Normal [facility] Comment on above: Performed By: #### Ethan MIRAMONTES, , [facility], 1987-08, 3039-07 #### [facility] ([id number]) [address] [place] [address] 35889 MCH (RBC) [Entitic mass] 42.6 pg High 27-34 [facility] Comment on above: Performed By: #### Ethan MIRAMONTES, , [facility], 1987-08, 3039-07 #### [facility] ([id number]) [address] [place] [address] 21954 MCHC (RBC) [Mass/Vol] 35.5 g/dL Normal 32-36 [facility] Comment on above: Performed By: #### Ethan MIRAMONTES, , [facility], 1987-08, 3039-07 #### [facility] ([id number]) [address] [place] [address] 54414 MCV (RBC) [Entitic vol] 120 fL High 80-100 [facility] Comment on above: Performed By: #### Ethan MIRAMONTES, , [facility], 1987-08, 3039-07 #### [facility] ([id number]) [address] [place] [address] 57751 Monocytes (Bld) [#/Vol] 0.2 10*3/uL Normal 0-0.9 [facility] Comment on above: Performed By: #### Ethan MIRAMONTES, , [facility], 1987-08, 3039-07 #### [facility] ([id number]) [address] [place] [address] 77284 Monocytes/100 WBC (Bld) 7.0 % Normal [facility] Comment on above: Performed By: #### Ethan MIRAMONTES, , [facility], 1987-08, 3039-07 #### [facility] ([id number]) [address] [place] [address] 12543 Neutrophils (Bld) [#/Vol] 1.0 10*3/uL Low 1.5-6.6 [facility] Comment on above: Performed By: #### Ethan MIRAMONTES, , [facility], 1987-08, 3039-07 #### [facility] ([id number]) [address] [place] [address] 33382 Platelet mean volume (Bld) [Entitic vol] 8.3 fL Normal 7-12 [facility] Comment on above: Performed By: #### Ethan MIRAMONTES, , [facility], 1987-08, 3039-07 #### [facility] ([id number]) [address] [place] [address] 43455 Platelets (Bld) [#/Vol] 122 10*3/uL Low 150-450 [facility] Comment on above: Performed By: #### Ethan MIRAMONTES, , CMP, 1987-08, 3039-07 #### [facility] ([id number]) [address] [place] [address] 98977 RBC COUNT 2.19 X10E12/L Low 3.80-5.20 [facility] Comment on above: Performed By: #### C BCA, , CMP, 1987-08, 3039-07 #### [facility] ([id number]) [address] [place] [address] 74924 SEG NEUTROPHIL 45.0 % Normal [facility] Comment on above: Performed By: #### C BCA, , CMP, 1987-08, 3039-07 #### [facility] ([id number]) [address] [place] [address] 81280 TEARDROP 1+ Abnormal NONE [facility] Comment on above: Performed By: #### Ethan BCA, , CMP, 1987-08, 3039-07 #### [facility] ([id number]) [address] [place] [address] 75035 WBC (Bld) [#/Vol] 2.2 10*3/uL Low 4.0-11.0 [facility] Comment on above: Performed By: #### C BCA, , CMP, 1987-08, 3039-07 #### [facility] ([id number]) [address] [place] [address] 95227 COMPREHENSIVE METABOLIC PANE Elvin 08-19-2023 Albumin [Mass/Vol] 3.3 g/dL Normal 3.2-5.3 [facility] Comment on above: Performed By: #### C BCA, , CMP, 1987-08, 3039-07 #### [facility] ([id number]) [address] [place] [address] 96503 ALP [Catalytic activity/Vol] 50 U/L Normal 39-130 [facility] Comment on above: Performed By: #### C BCA, , CMP, 1987-08, 3039-07 #### [facility] ([id number]) [address] [place] [address] 34029 ALT [Catalytic activity/Vol] 26 U/L Normal 0-31 [facility] Comment on above: Performed By: #### C BCA, , [facility], 1987-08, 3039-07 #### [facility] ([id number]) [address] [place] [address] 35507 Anion gap [Moles/Vol] 5 mmol/L Normal 5-15 [facility] Comment on above: Performed By: #### Ethan MIRAMONTES, , [facility], 1987-08, 3039-07 #### [facility] ([id number]) [address] [place] [address] 29368 AST [Catalytic activity/Vol] 29 U/L Normal 0-41 [facility] Comment on above: Performed By: #### Ethan BCA, , [facility], 3039-07 #### [facility] ([id number]) [address] [place] [address] 68982 Bilirubin [Mass/Vol] 1.2 mg/dL Normal 0.3-1.2 [facility] Comment on above: Performed By: #### Ethan MIRAMONTES, , [facility], 3039-07 #### [facility] ([id number]) [address] [place] [address] 33924 Calcium [Mass/Vol] 9.0 mg/dL Normal 8.5-10.5 [facility] Comment on above: Performed By: #### C BCA, , CMP, 1987-08, 3039-07 #### [facility] ([id number]) [address] [place] [address] 76400 Chloride [Moles/Vol] 107 mmol/L Normal 98-109 [facility] Comment on above: Performed By: #### C FE, , [facility], 3039-07 #### [facility] ([id number]) [address] [place] [address] 52000 CO2 [Moles/Vol] 27 mmol/L Normal 22-32 [facility] Comment on above: Performed By: #### C FE, , [facility], 3039-07 #### [facility] ([id number]) [address] [place] [address] 41196 Creatinine [Mass/Vol] 0.53 mg/dL Normal 0.40-1.00 [facility] Comment on above: Result Comment: METH OD TRACEABLE TO IDMS STANDARD Performed By: #### C FE, , [facility], 1987-08, 3039-07 #### [facility] ([id number]) [address] [place] [address] 69498 eGFR (CKD-EPI) NON-RACE DEPENDENT >90 Normal >59 [facility] Comment on above: Result Comment: Reported eGFR is based on the CKD-EPI 2020 equation that does not use a race coefficient. Performed By: #### C FE, , [facility], 1987-08, 3039-07 #### [facility] ([id number]) [address] [place] [address] 51773 Glucose [Mass/Vol] 94 mg/dL Normal 65-99 [facility] Comment on above: Performed By: #### C FE, , [facility], 3039-07 #### [facility] ([id number]) [address] [place] [address] 70610 Potassium [Moles/Vol] 3.2 mmol/L Low 3.5-5.0 [facility] Comment on above: Performed By: #### C FE, , CMP, 1987-08, 3039-07 #### [facility] ([id number]) [address] [place] [address] 33273 Protein [Mass/Vol] 5.5 g/dL Low 6.0-8.0 [facility] Comment on above: Performed By: #### C BCA, , CMP, 1987-08, 3039-07 #### [facility] ([id number]) [address] [place] [address] 37254 Sodium [Moles/Vol] 139 mmol/L Normal 134-146 [facility] Comment on above: Performed By: #### C BCA, , [facility], 1987-08, 3039-07 #### [facility] ([id number]) [address] [place] [address] 96623 Urea nitrogen [Mass/Vol] 11 mg/dL Normal 5-23 [facility] Comment on above: Performed By: #### C BCA, , [facility], 1987-08, 3039-07 #### [facility] ([id number]) [address] [place] [address] 13469 CRP [Mass/Vol]on 08-19-2023 C REACTIVE PROTEIN 0.9 mg/dL High 0.000-0.744 [facility] Comment on above: Performed By: #### C BCA, , [facility], 1987-08, 3039-07 #### [facility] ([id number]) [address] [place] [address] 41329 DRUG SCREEN, URINEon 024 AMPHETAMINE/METHAMP Negative Normal NEG [facility] Comment on above: Result Comment: AMPH /METH screening cut off = 1000 ng/mL Performed By: #### D VELOZ #### [facility] ([id number]) [address] [place] [address] 32844 BARBITURATES Negative Normal NEG [facility] Comment on above: Result Comment: Ana iturates screening cut off value = 200 ng/mL Performed By: #### D VELOZ #### [facility] ([id number]) [address] [place] [address] 75686 BENZODIAZEPINES Negative Normal NEG [facility] Comment on above: Result Comment: Jeramie odiazepines screening cut off value = 200 ng/mL Performed By: #### D VELOZ #### [facility] ([id number]) [address] [place] [address] 44432 CANNABINOIDS Positive Abnormal NEG [facility] Comment on above: Result Comment: Conf irmation available upon request. Cannabinoids/THC screening cut off value = 50 ng/mL Performed By: #### D VELOZ #### [facility] ([id number]) [address] [place] [address] 82335 COCAINE METABOLITE Negative Normal NEG [facility] Comment on above: Result Comment: Coca ine screening cut off value = 300 ng/mL Performed By: #### D VELOZ #### [facility] ([id number]) [address] [place] [address] 75581 ECSTASY Negative Normal NEG [facility] Comment on above: Result Comment: Ecst asy screening cut off value = 500 ng/mL This report is intended for use in clinical monitoring or management of patients. Performed By: #### D VELOZ #### [facility] ([id number]) [address] [place] [address] 28622 METHADONE Negative Normal NEG [facility] Comment on above: Result Comment: Meth adone screening cut off value = 300 ng/mL. Performed By: #### D VELOZ #### [facility] ([id number]) [address] [place] [address] 76637 OPIATES Negative Normal NEG [facility] Comment on above: Result Comment: Opia chalo screening cut off value = 300 ng/mL NOTE: This test is used for the detection of codeine, hydrocodone (>1000 ng/mL), morphine and hydromorphone (>900 ng/mL) in urine. Performed By: #### D VELOZ #### [facility] ([id number]) [address] [place] [address] 15755 OXYCODONE Negative Normal NEG [facility] Comment on above: Result Comment: Oxyc odone screening cut off value = 300 ng/mL NOTE: This test is used for the detection of oxycodone and oxymorphone in urine. Performed By: #### D VELOZ #### [facility] ([id number]) [address] [place] [address] 38242 PHENCYCLIDINE Negative Normal NEG [facility] Comment on above: Result Comment: Phen cyclidine screening cut off value = 25 ng/mL Performed By: #### D VELOZ #### [facility] ([id number]) [address] [place] [address] 59477 HCG ( test) Ql (U)o n 08-19-2023 Beta HCG ( test) Ql (U) Negative Normal NEG [facility] Comment on above: Performed By: #### 2 106-3 #### [facility] ([id number]) [address] [place] [address] 79540 LIPASEon 08-19-2023 Lipase [Catalytic activity/Vol] 25 U/L Normal 17-40 [facility] Comment on above: Performed By: #### C FE, 69107-5, CMP, 1987-08, 3039-07 #### [facility] ([id number]) [address] [place] [address] 36448 MAGNESIUMon 08-19-2023 Magnesium [Mass/Vol] 1.9 mg/dL Normal 1.8-2.6 [facility] Comment on above: Performed By: #### C FE, , CMP, 1987-08, 3039-07 #### [facility] ([id number]) [address] [place] [address] 47718 SARS/FLU A+B/RSV by NAAT/Mol ecularon 08-19-2023 SARS/FLU [...] operators who are performing tests using either [employer] or [employer] systems and is limited to laboratories that [...] repeat. Fact Sheet for Healthcare Providers: https://www.fda.gov/media/ 566327/download Fact Sheet for Patients: https://www.fda.gov/media/ 481516/download Normal [facility] Comment on above: Performed By: #### C OVFLR #### [facility] ([id number]) [address] [place] [address] [place] [address] URN MACROSCOPIC NURon 2023 BILIRUBIN ERA Small Abnormal NEG [facility] Comment on above: Performed By: #### N UM #### [facility] ([id number]) [address] [place] [address] [place] [address] BLOOD/HGB ERA Trace Abnormal NEG [facility] Comment on above: Performed By: #### N UM #### [facility] ([id number]) [address] [place] [address] [place] [address] GLUCOSE ERA Negative Normal NEG [facility] Comment on above: Performed By: #### N UM #### [facility] ([id number]) [address] [place] [address] [place] [address] KETONES ERA Negative Normal NEG [facility] Comment on above: Performed By: #### N UM #### [facility] ([id number]) [address] [place] [address] [place] [address] LEUKOCYTE ESTERASE ERA Small Abnormal NEG Pr [facility] Comment on above: Performed By: #### N UM #### [facility] ([id number]) [address] [place] [address] [place] [address] NITRITE ERA Positive Abnormal NEG [facility] Comment on above: Performed By: #### N UM #### [facility] ([id number]) [address] [place] [address] [place] [address] PH ERA 6.0 Normal 5.0-8.5 [facility] Comment on above: Performed By: #### N UM #### [facility] ([id number]) [address] [place] [address] [place] [address] PROTEIN ERA Negative Normal NEG [facility] Comment on above: Performed By: #### N UM #### [facility] ([id number]) [address] [place], [place] [address], [place] [address] SPECIFIC GRAVITY ERA 1.025 Normal 1.003-1.035 [facility] Comment on above: Performed By: #### N UM #### [facility] ([id number]) [address] [facility] [address], [place] [address] UROBILINOGEN ERA >=8.0 Normal <1.1 [facility] Comment on above: Performed By: #### N UM #### [facility] ([id number]) [address] [facility] [facility], [place] [address] ED Note-Physicianon 07-23-19 ED Note-Physician Basic Information Time Seen: Bernadette Gil PA-C 07/06/2023 15:16 Chief Complaint Pt reports vaginal itching and burning with urination for 1.5 months. Brown vaginal discharge. Pt also reports sinus congestion for 3-4 days. History of Present Illness 33-year-old female presents with brown vaginal discharge for the past 2 months. She states that she has followed up in [place] [facility] for this, but they did not [...] follow-up with the health department or TECH[employer]ICAL SALES [employer]ANT. Nasal congestion sounds viral and can use [id number] medications and follow-up family doctor. Afebrile, not [...] medications Follow-up With When Contact Information [facility], [facility] Dept: [phone] In 3 days 07/09/2023 EST Additional Instructions: Boubacar MULLINS, Zev Webber, ORS Within 2 to 4 days [address] [facility] [address] [place] [address]- Additional Instructions: Patient Education Viral Respiratory Infection, Snut-Tv-Mzaz Attestation I performed a substantive part of [...] No. Hous (more content not included)... Normal [facility] Comment on above: Result Comment: Elec tronically Signed By: Bernadette Gil PA-C\.br\Date and Time Signed: 07/06/23 16:00 EST\.br\Electronically Co-Signed By: Adolfo Hernandez MD\.br\Date and Time Co-Signed: 07/23/23 19:29 EDT Chlam/GC/Trich,NAAon 024 C. trachomatis rRNA BETZAIDA+probe Ql (Unsp spec) Negative Invalid Interpretation Code Negative [facility] Comment on above: Performed By: #### 1 [id number] #### [facility] [address] [place] [address] N. gonorrhoeae rRNA BETZAIDA+probe Ql (Unsp spec) Negative Invalid Interpretation Code Negative [facility] Comment on above: Performed By: #### 1 [id number] #### [facility] [address] [place] [address] T. vaginalis rRNA BETZAIDA+probe Ql (Unsp spec) Negative Invalid Interpretation Code Negative [facility] Comment on above: Result Comment: Perf ormed at: =G [facility] [address] RASHID Lou [id number] MD Tamika Eid Performed By: #### 1 [id number] #### [facility] [address] [place] [address] C Urineon 07-08-2023 Bacteria identified Cx Nom [...] Locations R1: This test was performed at: [facility], [address] [place] [address], [facility] , , [facility] Comment on above: Performed By: #### 2 [id number] #### [facility] [address] [place] [address] CHEMISTRYOrdered By: SYSTEM SYSTEM on 07-06-2023 Amphetamines [...] Consent for Treatmenton Consent for Treatment [id number] Normal [facility] Discharge Instructionson Discharge Instructions [id number] Normal [facility] ED Clinical Summaryon 2023 ED Clinical Summary (Inserted Image. Radha ble to display) [place] [id number] ED Clinical Summary Person Information Name: SANGEETA NICHOLSON [facility] Age: 33 Years : 1990 Sex: Female Language: Guamanian PCP: NONE, XXXX Marital Status: Single Visit [...] 07/06/2023 16:02:43 07/06/2023 16:02:43 07/06/2023 16:02:43 ADDRESS: [address] [place] [phone] PHYS DOC NOTES: MEDICAL INFORMATION: Prescriptions Given: Medications to Continue with No Changes Other Medications albuterol (albuterol 0.083% Inh Valerie 3 mL) 3 Milliliter Inhalation every 6 hours as needed for wheezing. PATIENT EDUCATION INFORMATION: Instructions: Viral Respiratory Infection, Ghqk-Ta-Fuef Follow up: With: Address: When: Boubacar MULLINS, Zev Webber, ORS [address] [facility] [address] [place] [address] Within 2 to 4 days With: Address: When: Formerly [facility], [facility]1983 Dept: [phone] In 3 days 07/09/2023 DIAGNOSIS: 1:Viral sinusitis; 2:Vaginal discharge; Other viral agents as the cause of diseases classified elsewhere Normal [facility] ED Patient Education Noteon 07-06-2023 ED Patient [...] home: Managing pain and congestion ? Take kcgj-kyz-xiuphqx and prescription medicines only as told by [...] cannot use soap and water, use hand welfare service aide. ? Cover your mouth when you cough. [...] Reviewed: 07/23/2021 Elsevier Patient Education ? 2022 Performance Indicator. Normal [facility] ED Patient Summaryon 024 ED Patient Summary (Inserted Image. Radha ble to display) [address] [address] Patient Discharge Instructions Person Information Name: SANGEETA NICHOLSON Age: 33 Years Arrival Date: 07/06/2023 15:07:04 Discharge Diagnosis: 1:Viral sinusitis; 2:Vaginal discharge; Other viral agents as the cause of diseases classified elsewhere Primary Care Physician: NONE, XXXX Provider Information Primary Provider: [employer] Consultant:None The exam and treatment you received in the Emergency Department were for an urgent problem and are not intended as complete care. It is important that you follow up with a doctor, nurse practitioner, or physician?s household assistant for ongoing care. If your symptoms become worse or you do not improve as expected and you are unable to reach your usual health care provider, you should return to the Emergency Department. We are available 24 hours a day. SAGNEETA NICHOLSON has been given the following list of patient education materials, prescriptions and follow-up instructions: Follow-up Instructions: With: Address: When: Boubacar MULLINS, Zev Webber, ORS [address] [facility], [facility] [address] [place] [address] Within 2 to 4 days With: Address: When: Formerly [facility], [facility] Dept: [phone] In 3 days 07/09/2023 In the event that this physician does not participate in your insurance network, please consult with your insurance company to find a nearby participating provider. Patient Education Materials: Viral Respiratory Infection, Cspv-Wl-Yvpr A MESSAGE TO ALL PATIENTS REGARDING OPIOIDS PRESCRIPTION OPIOIDS: WHAT YOU NEED TO KNOW Prescription opioids can be used to help relieve knbgcnqp-pd-evzpgw pain and are often prescribed following a [...] be strugglin (more content not included)... Normal [facility] No Panel InformationOrdered By: Bella Flower on 07-06-2023 WP No clue cells presen t No Trichomonas vaginalis present No yeast seen [facility] SEROLOGYOrdered By: Jules Sesay on 07-06-2023 HCG.beta subunit (U) [Moles/Vol] Negative Normal [facility] Man Sero U BetaHcg Qualon 07-06-2023 HCG.beta subunit (U) [Moles/Vol] Negative Normal [facility] Comment on above: Performed By: #### 2 [id number], [id number], [id number] #### [facility] [address] [place] [address] U Drug Screenon 07-06-2023 Amphetamines Screen method >1000 ng/mL Ql (U) Negative Normal NEGATIVE [facility] Comment on above: Performed By: #### 2 [id number] #### [facility] [address] [place] [address] Barbiturates Screen Ql (U) Negative Normal NEGATIVE [facility] Comment on above: Performed By: #### 2 [id number] #### [facility] [address] [place] [address] Benzodiazepines Ql (U) Negative Normal NEGATIVE [facility] Comment on above: Performed By: #### 2 [id number] #### [facility] [address] [place] [address] Cannabinoids Screen Ql (U) Positive Abnormal NEGATIVE [facility] Comment on above: Performed By: #### 2 [id number] #### [facility] [address] [place] [address] Cocaine Ql (U) Negative Normal NEGATIVE [facility] Comment on above: Performed By: #### 2 604353 #### [facility] [address] [place] [address] Opiates Screen Ql (U) Negative Normal NEGATIVE [facility] Comment on above: Performed By: #### 2 768514 #### [facility] [address] [place] [address] Phencyclidine Screen method >25 ng/mL Ql (U) Negative Normal NEGATIVE [facility] Comment on above: Performed By: #### 2 [id number] #### [facility] [address] [place] [address] UA With Cult Reflexon 2023 Color (U) YELLOW Normal Yellow [facility] Comment on above: Performed By: #### 2 [id number], [id number], [id number] #### [facility] [address] [place] [address] Glucose (U) [Mass/Vol] Negative Normal Negative [facility] Comment on above: Performed By: #### 2 [id number], [id number], [id number] #### [facility] [address] [place] [address] Ketones Ql (U) Negative Normal Negative [facility] Comment on above: Performed By: #### 2 0798402, [id number], [id number] #### [facility] [address] [place] [address] UA Blood Negative Normal Negative [facility] Comment on above: Performed By: #### 2 6928309, [id number], 0935897 #### [facility] [address] [place] [address] UA Amorph Nelsy Present Normal [facility] Comment on above: Performed By: #### 2 [id number], [id number], 0717816 #### [facility] [address] [place] [address] UA Bacteria TRACE Normal Trace [facility] Comment on above: Performed By: #### 2 8806978, [id number], 6758191 #### [facility] [address] [place] [address] UA Clarity CLEAR Normal Clear [facility] Comment on above: Performed By: #### 2 2834920, 79830935, [id number] #### [facility] [address] [place] [address] UA Leuk Est 2+ Abnormal Negative [facility] Comment on above: Performed By: #### 2 4508782, [id number], [id number] #### [facility] [address] [place] [address] UA Mucous 1+ Normal [facility] Comment on above: Performed By: #### 2 6191210, [id number], 5409318 #### [facility] [address] [place] [address] UA Nitrite Negative Normal Negative [facility] Comment on above: Performed By: #### 2 1253258, 24151178, 0262331 #### [facility] [address] [place] [address] UA pH 8.5 Invalid Interpretation Code 5.0-9.0 [facility] Comment on above: Performed By: #### 2 0195026, 92339592, 6784070 #### [facility] [address] [place] [address] UA Protein 2+ Abnormal Negative [facility] Comment on above: Performed By: #### 2 4701944, 30594937, 4753342 #### [facility] [address] [place] [address] UA RBC 0-3 Normal 0-3 [facility] Comment on above: Performed By: #### 2 6855328, 99236153, 3173822 #### [facility] [address] [place] [address] UA Spec Desc Clean Catch Normal [facility] Comment on above: Performed By: #### 2 7748948, 96487522, 3795771 #### [facility] [address] [place] [address] UA Spec Grav 1.010 Invalid Interpretation Code 1.005-1.030 [facility] Comment on above: Performed By: #### 2 9230359, [id number], 8096255 #### [facility] [address] [place] [address] UA Squam Epithelial 3-4 Normal 0-2 Fishe [facility] Comment on above: Performed By: #### 2 6387010, 21216450, 6065075 #### [facility] [address] [place] [address] UA Urobilinogen 4.0 EU/dL Abnormal 0.0-1.0 [facility] Comment on above: Performed By: #### 2 5876367, 53236670, 5581389 #### [facility] [address] [place] [address] UA WBC 16-25 Abnormal 0-5 [facility] Comment on above: Performed By: #### 2 6441993, 08550949, 2528149 #### [facility] [address] [place] [address] Urobilinogen (U) [Mass/Vol] Negative Normal Negative [facility] Comment on above: Performed By: #### 2 9542249, 68382726, 8932020 #### [facility] [address] [place] [address] URINALYSISOrdered By: Jules Ny on 07-06-2023 Color (U) Yellow (07/06/23 3:19 PM) Normal Yellow [facility] UA Auto SS Ketones Ql (U) Negative [...] Interpretation Code 0-5/HPF [facility] UA Auto SS Cult,Urineon 12-11-2022 Cult,Urine Specimen Description .URINE Culture Several types of bacteria were identified in this specimen. Further ID and susceptibility testing is generally not helpful in this circumstance and has not been performed. Consider recollection if clinically indicated. Report Status FINAL 12/11/2022 Normal [facility] Comment on above: Performed By: #### P HEP, HIVCMB #### [address] [address] Scientific Informatics Analyst: Antonino Nova MD #### BMPCMP, BMP, CBC #### [address] [place], [place] 1246883 Scientific Informatics Analyst: Merlin Charles MD UA w/Reflex Cultureon 2022 Bilirubin, SemiQt,Ur Negative Normal NEG [facility] Comment on above: Performed By: #### P HEP, HIVCMB #### [address] [address] Scientific Informatics Analyst: Antonino Nova MD #### BMPCMP, BMP, CBC #### [address] [place] [id number] Scientific Informatics Analyst: Merlin Charles MD Blood, Urine Negative Normal NEG [facility] Comment on above: Performed By: #### P HEP, HIVCMB #### [address] [address] Scientific Informatics Analyst: Antonino Nova MD #### BMPCMP, BMP, CBC #### [address] [place] [id number] Scientific Informatics Analyst: Merlin Charles MD Clarity (U) Clear Normal CLEAR [facility] Comment on above: Performed By: #### P HEP, HIVCMB #### [address] [address] Scientific Informatics Analyst: Antonino Nova MD #### BMPCMP, BMP, CBC #### [address] [place] [id number] Scientific Informatics Analyst: Merlin Charles MD Color (U) Yellow Normal YEL [facility] Comment on above: Performed By: #### P HEP, HIVCMB #### [address] [address] Scientific Informatics Analyst: Antonino Nova MD #### BMPCMP, BMP, CBC #### [address] [place], [place] 2995083 Scientific Informatics Analyst: Merlin Charles MD Glucose Ql (U) Negative Normal NEG [facility] Comment on above: Performed By: #### P HEP, HIVCMB #### [address] [address] Scientific Informatics Analyst: Antonino Nova MD #### BMPCMP, BMP, CBC #### [address] [place], [place] 8491783 Scientific Informatics Analyst: Merlin Charles MD Ketones Ql (U) Negative Normal NEG [facility] Comment on above: Performed By: #### P HEP, HIVCMB #### [address] [address] Scientific Informatics Analyst: Antonino Nova MD #### BMPCMP, BMP, CBC #### [address] [place], [place] 5960183 Scientific Informatics Analyst: Merlin Charles MD Leukocyte esterase Test strip Ql (U) LARGE Abnormal NEG [facility] Comment on above: Performed By: #### P HEP, HIVCMB #### [address] [address] Scientific Informatics Analyst: Antonino Nova MD #### BMPCMP, BMP, CBC #### [address] [place], [place] 5183183 Scientific Informatics Analyst: Merlin Charles MD Nitrite,Ur Negative [facility] Comment on above: Performed By: #### P HEP, HIVCMB #### [address] [address] Scientific Informatics Analyst: Antonino Nova MD #### BMPCMP, BMP, CBC #### [address] [place] [id number] Scientific Informatics Analyst: Merlin Charles MD PH,Ur 6.0 Normal 5.0-9.0 [facility] Comment on above: Performed By: #### P HEP, HIVCMB #### [address] [address] Scientific Informatics Analyst: Antonino Nova MD #### BMPCMP, BMP, CBC #### [address] [place] [id number] Scientific Informatics Analyst: Merlin Charlse MD Protein Ql (U) Negative Normal NEG [facility] Comment on above: Performed By: #### P HEP, HIVCMB #### [address] [address] Scientific Informatics Analyst: Antonino Nova MD #### BMPCMP, BMP, CBC #### [address] [place] [id number] Scientific Informatics Analyst: Merlin Charles MD Spec. [place],Ur 1.025 High 1.010-1.020 [facility] Comment on above: Performed By: #### P HEP, HIVCMB #### [address] [address] Scientific Informatics Analyst: Antonino Nova MD #### BMPCMP, BMP, CBC #### [address] [place] [id number] Scientific Informatics Analyst: Merlin Charles MD Urobilinogen,Ur Normal Normal 0.0-1.0 [facility] Comment on above: Performed By: #### P HEP, HIVCMB #### [address] [address] Scientific Informatics Analyst: Antonino Nova MD #### BMPCMP, BMP, CBC #### [address] [place] [phone] Scientific Informatics Analyst: Merlin Charles MD Urinalysis,Microon 3 Bacteria 3+ Abnormal NONE [facility] Comment on above: Performed By: #### P HEP, HIVCMB #### [address] [id number] Scientific Informatics Analyst: Antonino Nova MD #### BMPCMP, BMP, CBC #### [facility] [address] [place] [address] [address]. [place] [phone] Scientific Informatics Analyst: Merlin Charles MD Epithelial cells LM Ql (Urine sed) 0 TO 2 Normal 0-25 [facility] Comment on above: Performed By: #### P HEP, HIVCMB #### [address] [id number] Scientific Informatics Analyst: Antonino Nova MD #### BMPCMP, BMP, CBC #### [address] [place] [phone] Scientific Informatics Analyst: Merlin Charles MD Urine RBC's 0 TO 2 Normal 0-2 [facility] Comment on above: Performed By: #### P HEP, HIVCMB #### [address] [address] Scientific Informatics Analyst: Antonino Nova MD #### BMPCMP, BMP, CBC #### [address] [place] [phone] Scientific Informatics Analyst: Merlin Charles MD Urine WBC's 10 TO 20 Normal 0-5 [facility] Comment on above: Performed By: #### P HEP, HIVCMB #### [address] [address] Scientific Informatics Analyst: Antonino Nova MD #### BMPCMP, BMP, CBC #### [facility] [address] [place] [address] Dr. [place] [phone] Scientific Informatics Analyst: Merlin Charles MD Cult,Urineon 09-24-2022 Cult,Urine Specimen Description .VOIDED URINE Culture ESCHERICHIA COLI >107752 CFU/ML STREPTOCOCCI, BETA HEMOLYTIC GROUP B >[id number] CFU/ML Report Status FINAL 09/24/2022 SUSCEPTIBILITY Organism [...] Tobramycin <=1 SUSCEPTIBLE Trimethoprim/Sulfa <=20 SUSCEPTIBLE Susceptible [facility] Comment on above: Performed By: #### U #### [address] [address] Scientific Informatics Analyst: Antonino Nova MD [address] [place] [address] Scientific Informatics Analyst: Merlin Charles MD Chlamydia/GC,DNA Ampon 09-23 Chlamydia Probe Negative Normal [facility] Comment on above: Result Comment: CHLA [...] Performed By: #### U MICAO, UA #### [facility] [address] [place] [address] Scientific Informatics Analyst: Merlin Charles MD #### [facility] #### [place] [address] [place] [address] Scientific Informatics Analyst: Antonino Nova MD Gonorrhea Probe Negative Normal [facility] Comment on above: Result Comment: NEIS [...] Performed By: #### U MICAO, UA #### [address] [place] [address] Scientific Informatics Analyst: Merlin Charles MD #### SWCGP #### [address] [id number] Scientific Informatics Analyst: Antonino Nova MD Trichomonas/Wet Prepon 09-22 Trichomonas/Wet Prep Specimen Descriptio n .VAGINAL SPECIMEN Direct Exam NO YEAST OBSERVED NO TRICHOMONAS SEEN NO CLUE CELLS SEEN Report Status FINAL 09/22/2022 Normal [facility] Comment on above: Performed By: #### P HEP, HIVCMB #### [address] [address] Scientific Informatics Analyst: Antonino Nova MD #### BMPCMP, BMP, CBC #### [address] [place] [address] Scientific Informatics Analyst: Merlin Charles MD Urinalysis, Routineon 2022 Bilirubin, SemiQt,Ur Negative Normal NEG [facility] Comment on above: Performed By: #### U MICAO, UA #### [address] [place] [place] [address] Scientific Informatics Analyst: Merlin Charles MD #### SWCGP #### [address] [id number] Scientific Informatics Analyst: Antonino Nova MD Blood, Urine Negative Normal NEG [facility] Comment on above: Performed By: #### U MICAO, UA #### [address] [place] [address] Scientific Informatics Analyst: Merlin Charles MD #### SWCGP #### [address] [address] Scientific Informatics Analyst: Antonino Nova MD Clarity (U) Cloudy Abnormal CLEAR [facility] Comment on above: Performed By: #### U MICAO, UA #### [facility] [address] [place], [place] 1294383 Scientific Informatics Analyst: Merlin Charles MD #### SWCGP #### [address] [address] Scientific Informatics Analyst: Antonino Nova MD Color (U) Yellow Normal YEL [facility] Comment on above: Performed By: #### U MICAO, UA #### [address] [place], [place] 2090183 Scientific Informatics Analyst: Merlin Charles MD #### SWCGP #### [address] [address] Scientific Informatics Analyst: Antonino Nova MD Glucose Ql (U) Negative Normal NEG [facility] Comment on above: Performed By: #### U MICAO, UA #### [facility] [address] [place] [address] Dr. [place], [place] 2578483 Scientific Informatics Analyst: Merlin Charles MD #### SWCGP #### [address] [address] Scientific Informatics Analyst: Antonino Nova MD Ketones Ql (U) Negative Normal NEG [facility] Comment on above: Performed By: #### U MICAO, UA #### [facility] [address] [place] [address] Dr. [place], [place] 7756083 Scientific Informatics Analyst: Merlin Charles MD #### SWCGP #### [address] [address] Scientific Informatics Analyst: Antonino Nova MD Leukocyte esterase Test strip Ql (U) MODERATE Abnormal NEG [facility] Comment on above: Performed By: #### U KIMO, UA #### [facility] [address] [place] [address] Dr. [place], [place] [id number] Scientific Informatics Analyst: Merlin Charles MD #### SWCGP #### [address] [address] Scientific Informatics Analyst: Antonino Nova MD Nitrite,Ur Positive Abnormal NEG [facility] Comment on above: Performed By: #### U KIMO, UA #### [address] [place], [place] 1899483 Scientific Informatics Analyst: Merlin Charles MD #### SWCGP #### [address] [address] Scientific Informatics Analyst: Antonino Nova MD PH,Ur 6.0 Normal 5.0-9.0 [facility] Comment on above: Performed By: #### U KIMO, UA #### [address] [place], [place] 6348383 Scientific Informatics Analyst: Merlin Charles MD #### SWCGP #### [address] [address] Scientific Informatics Analyst: Antonino Nova MD Protein Ql (U) Negative Normal NEG [facility] Comment on above: Performed By: #### U MICAO, UA #### [address] [place], [place] 6507883 Scientific Informatics Analyst: Merlin Charles MD #### SWCGP #### [address] [address] Scientific Informatics Analyst: Antonino Nova MD Spec. [place],Ur 1.025 High 1.010-1.020 [facility] Comment on above: Performed By: #### U KIMO, UA #### [address] [place], [place] [id number] Scientific Informatics Analyst: Merlin Charles MD #### SWCGP #### [address] [address] Scientific Informatics Analyst: Antonino Nova MD Urobilinogen,Ur Normal Normal NORM [facility] Comment on above: Performed By: #### U KIMO, UA #### [facility] [address] [place] [address] Dr. [place] [phone] Scientific Informatics Analyst: Merlin Charles MD #### SWCGP #### [address] [address] Scientific Informatics Analyst: Antonino Nova MD Urinalysis,Microon 3 Bacteria 3+ Abnormal NONE [facility] Comment on above: Performed By: #### U KIMO, UA #### [address] [place] [phone] Scientific Informatics Analyst: Merlin Charles MD #### SWCGP #### [address] [address] Scientific Informatics Analyst: Antonino Nova MD Epithelial cells LM Ql (Urine sed) 0 TO 2 Normal 0-25 [facility] Comment on above: Performed By: #### U MICAO, UA #### [address] [place] [phone] Scientific Informatics Analyst: Merlin Charles MD #### SWCGP #### [address] [address] Scientific Informatics Analyst: Antonino Nova MD Mucus Strands 1+ Abnormal [facility] Comment on above: Performed By: #### U MICAO, UA #### [address] [place], [place] 7718083 Scientific Informatics Analyst: Merlin Charles MD #### SWCGP #### [address] [address] Scientific Informatics Analyst: Antonino Nova MD Urine RBC's 0 TO 2 Normal 0-2 [facility] Comment on above: Performed By: #### U MICAO, UA #### [facility] [address] [place], [place] 6589283 Scientific Informatics Analyst: Merlin Charles MD #### [facility] #### [place] [address] [place] [address] Scientific Informatics Analyst: Antonino Nova MD Urine WBC's 10 TO 20 Normal 0-5 [facility] Comment on above: Performed By: #### U KIMO, UA #### [facility] [address] [place] [address] Dr. [place], [place] 3833283 Scientific Informatics Analyst: Merlin Charles MD #### SWCGP #### [address] [address] Scientific Informatics Analyst: Antonino Nova MD HCV RNA,Quant,PCRon 09-15-19 23 HCV Quant [id number] IU/mL Normal [facility] Comment on above: Performed By: #### H CVQN #### [address] [address] Scientific Informatics Analyst: Antonino Nova MD [facility] [address] [place] [address] [address]. [place] [phone] Scientific Informatics Analyst: Merlin Charles MD HCV RNA,Quant Detected Abnormal NOTDET [facility] Comment on [...] (HCT/P). Performed By: #### H CVQN #### [address] [address] Scientific Informatics Analyst: Antonino Nova MD [address] [place] [phone] Scientific Informatics Analyst: Merlin Charles MD HCV,RNA Log 6.95 Log IU/mL Normal [facility] Comment on above: Performed By: #### H CVQN #### [address] [address] Scientific Informatics Analyst: Antonino Nova MD [address] [place] [phone] Scientific Informatics Analyst: Merlin Charles MD [facility] 09-13-2022 Erythrocyte distribution width (RBC) [Ratio] 17.7 % High 11.8-14.4 [facility] Comment on above: Performed By: #### P HEP, HIVCMB #### [address] [address] Scientific Informatics Analyst: Antonino Nova MD #### BMPCMP, BMP, CBC #### [address] [place] [phone] Scientific Informatics Analyst: Merlin Charles MD Hematocrit (Bld) [Volume fraction] 39.8 % Normal 36.3-47.1 [facility] Comment on above: Performed By: #### P HEP, HIVCMB #### [address] [address] Scientific Informatics Analyst: Antonino Nova MD #### BMPCMP, BMP, CBC #### [address] [place] [phone] Scientific Informatics Analyst: Merlin Charles MD Hemoglobin (Bld) [Mass/Vol] 13.5 g/dL Normal 11.9-15.1 [facility] Comment on above: Performed By: #### P HEP, HIVCMB #### [address] [address] Scientific Informatics Analyst: Antonino Nova MD #### BMPCMP, BMP, CBC #### [address] [place] 6294983 Scientific Informatics Analyst: Merlin Charles MD [facility] (RBC) [Entitic mass] 35.6 pg High 25.2-33.5 [facility] Comment on above: Performed By: #### P HEP, HIVCMB #### [place] [id number] Scientific Informatics Analyst: Antonino Nova MD #### BMPCMP, BMP, CBC #### [address] [place] [id number] Scientific Informatics Analyst: Merlin Charles MD MCHC (RBC) [Mass/Vol] 33.9 g/dL Normal 28.4-34.8 [facility] Comment on above: Performed By: #### P HEP, HIVCMB #### [place] [id number] Scientific Informatics Analyst: Antonino Nova MD #### BMPCMP, BMP, CBC #### [address] [place] [id number] Scientific Informatics Analyst: Merlin Charles MD MCV (RBC) [Entitic vol] 105.0 fL High 82.6-102.9 [facility] Comment on above: Performed By: #### P HEP, HIVCMB #### [address] [id number] Scientific Informatics Analyst: Antonino Nova MD #### BMPCMP, BMP, CBC #### [address] [place] [phone] Scientific Informatics Analyst: Merlin Charles MD NRBC Automated 0.0 per 100 WBC Normal 0.0 [facility] Comment on above: Performed By: #### P HEP, HIVCMB #### [address] [address] Scientific Informatics Analyst: Antonino Nova MD #### BMPCMP, BMP, CBC #### [address] [place] [id number] Scientific Informatics Analyst: Merlin Charles MD Platelet mean volume (Bld) [Entitic vol] 10.2 fL Normal 8.1-13.5 [facility] Comment on above: Performed By: #### P HEP, HIVCMB #### [address] [address] Scientific Informatics Analyst: Antonino Nova MD #### BMPCMP, BMP, CBC #### [address] [place] [id number] Scientific Informatics Analyst: Merlin Charles MD Platelets (Bld) [#/Vol] 128 10*3/uL Low 138-453 [facility] Comment on above: Performed By: #### P HEP, HIVCMB #### [address] [address] Scientific Informatics Analyst: Antonino Nova MD #### BMPCMP, BMP, CBC #### [address] [place] [id number] Scientific Informatics Analyst: Merlin Charles MD RBC (Bld) [#/Vol] 3.79 10*6/uL Low 3.95-5.11 [facility] Comment on above: Performed By: #### P HEP, HIVCMB #### [address] [address] Scientific Informatics Analyst: Antonino Nova MD #### BMPCMP, BMP, CBC #### [facility] [address] [place] [address] Scientific Informatics Analyst: Merlin Charles MD WBC (Bld) [#/Vol] 3.7 10*3/uL Normal 3.5-11.3 [facility] Comment on above: Performed By: #### P HEP, HIVCMB #### [facility] [address] [place], [place] [id number] Scientific Informatics Analyst: Antonino Nova MD #### BMPCMP, BMP, CBC #### [facility] [address] [place] [address] Scientific Informatics Analyst: Merlin Charles MD Hematocrit (Bld) [Volume fraction] 39.8 % 36.3 - 47.1 % [facility] Hemoglobin (Bld) [Mass/Vol] 13.5 g/dL 11.9 - 15.1 g/dL [facility] Interpretation and review of laboratory results Abnormal [facility] MCH (RBC) [Entitic mass] 35.6 pg High 25.2 - 33.5 pg [facility] MCHC (RBC) [Mass/Vol] 33.9 g/dL 28.4 - 34.8 g/dL [facility] MCV (RBC) [Entitic vol] 105.0 fL High 82.6 - 102.9 fL [facility] NRBC Automated 0.0 0.0 per 100 WBC [facility] Platelet distribution width (Bld) [Ratio] 17.7 % High 11.8 - 14.4 % [facility] Platelet mean volume (Bld) [Entitic vol] 10.2 fL 8.1 - 13.5 fL [facility] Platelets (Bld) [#/Vol] 128 10*3/uL Low [facility] RBC (Bld) [#/Vol] 3.79 10*6/uL Low 3.95 - 5.1 1 m/uL [facility] WBC (Bld) [#/Vol] 3.7 10*3/uL [facility] Comp Metabolic Profon 05-15- 2023 Albumin [Mass/Vol] 4.1 g/dL Normal 3.5-5.2 [facility] Comment on above: Performed By: #### P HEP, HIVCMB #### [address] [address] Scientific Informatics Analyst: Antonino Nova MD #### BMPCMP, BMP, CBC #### [address] [place] [address] Scientific Informatics Analyst: Merlin Charles MD Albumin/Glob Ratio 2.1 Normal 1.0-2.5 [facility] Comment on above: Performed By: #### P HEP, HIVCMB #### [address] [id number] Scientific Informatics Analyst: Antonino Nova MD #### BMPCMP, BMP, CBC #### [address] [place] [id number] Scientific Informatics Analyst: Merlin Charles MD Alkaline Phos 67 U/L Normal 35-104 [facility] Comment on above: Performed By: #### P HEP, HIVCMB #### [address] [address] Scientific Informatics Analyst: Antonino Nova MD #### BMPCMP, BMP, CBC #### [address] [place] [address] Scientific Informatics Analyst: Merlin Charles MD ALT [Catalytic activity/Vol] 41 U/L High 5-33 [facility] Comment on above: Performed By: #### P HEP, HIVCMB #### [address] [address] Scientific Informatics Analyst: Antonino Nova MD #### BMPCMP, BMP, CBC #### [address] [place] [address] Scientific Informatics Analyst: Merlin Charles MD Anion gap [Moles/Vol] 6 mmol/L Low 9-17 [facility] Comment on above: Performed By: #### P HEP, HIVCMB #### [address] [address] Scientific Informatics Analyst: Antonino Nova MD #### BMPCMP, BMP, CBC #### [facility] [address] [place] [address] Dr. [place] [phone] Scientific Informatics Analyst: Merlin Charles MD AST [Catalytic activity/Vol] 52 U/L High <32 [facility] Comment on above: Performed By: #### P HEP, HIVCMB #### [address] [address] Scientific Informatics Analyst: Antonino Nova MD #### BMPCMP, BMP, CBC #### [address] [place] [phone] Scientific Informatics Analyst: Merlin Charles MD Bilirubin [Mass/Vol] 0.6 mg/dL Normal 0.3-1.2 [facility] Comment on above: Performed By: #### P HEP, HIVCMB #### [address] [address] Scientific Informatics Analyst: Antonino Nova MD #### BMPCMP, BMP, CBC #### [address] [place] [phone] Scientific Informatics Analyst: Merlin Charles MD BUN/CRE Ratio 16 Normal 9-20 [facility] Comment on above: Performed By: #### P HEP, HIVCMB #### [address] [address] Scientific Informatics Analyst: Antonino Nova MD #### BMPCMP, BMP, CBC #### [address] [place] [phone] Scientific Informatics Analyst: Merlin Cahrles MD Calcium [Mass/Vol] 10.0 mg/dL Normal 8.6-10.4 [facility] Comment on above: Performed By: #### P HEP, HIVCMB #### [place] [address] [place] [address] Scientific Informatics Analyst: Antonino Nova MD #### BMPCMP, BMP, CBC #### [facility] [address] [place] [address] [place] [address] Scientific Informatics Analyst: Merlin Charles MD Chloride [Moles/Vol] 108 mmol/L High 98-107 [facility] Comment on above: Performed By: #### P HEP, HIVCMB #### [address] [address] Scientific Informatics Analyst: Antonino Nova MD #### BMPCMP, BMP, CBC #### [facility] [address] [place] [address] [place] [phone] Scientific Informatics Analyst: Merlin Charles MD CO2 [Moles/Vol] 28 mmol/L Normal 20-31 [facility] Comment on above: Performed By: #### P HEP, HIVCMB #### [address] [id number] Scientific Informatics Analyst: Antonino Nova MD #### BMPCMP, BMP, CBC #### [facility] [address] [place] [address] [place] [address] Scientific Informatics Analyst: Merlin Charles MD Creatinine [Mass/Vol] 0.61 mg/dL Normal 0.50-0.90 [facility] Comment on above: Performed By: #### P HEP, HIVCMB #### [address] [id number] Scientific Informatics Analyst: Antonino Nova MD #### BMPCMP, BMP, CBC #### [facility] [address] [place] [address] Scientific Informatics Analyst: Merlin Charles MD GFR/1.73 sq M.predicted among non-blacks MDRD (S/P/Bld) [Vol rate/Area] mL/min/{1.73_m2} Normal >60 [facility] Comment on [...] Performed By: #### P HEP, HIVCMB #### [address] [id number] Scientific Informatics Analyst: Antonino Nova MD #### BMPCMP, BMP, CBC #### [facility] [address] [place] [address] [place] [address] Scientific Informatics Analyst: Merlin Charles MD Glucose [Mass/Vol] 87 mg/dL Normal 70-99 [facility] Comment on above: Performed By: #### P HEP, HIVCMB #### [address] [id number] Scientific Informatics Analyst: Antonino Nova MD #### BMPCMP, BMP, CBC #### [facility] [address] [place] [address] [place] [address] Scientific Informatics Analyst: Merlin Charles MD Potassium [Moles/Vol] 5.0 mmol/L Normal 3.7-5.3 [facility] Comment on above: Performed By: #### P HEP, HIVCMB #### [address] [id number] Scientific Informatics Analyst: Antonino Nova MD #### BMPCMP, BMP, CBC #### [facility] [address] [place] [address] [place] [address] Scientific Informatics Analyst: Merlin Charles MD Protein [Mass/Vol] 6.1 g/dL Low 6.4-8.3 [facility] Comment on above: Performed By: #### P HEP, HIVCMB #### [facility] [address] [place], [place] [id number] Scientific Informatics Analyst: Antonino Nova MD #### BMPCMP, BMP, CBC #### [facility] [address] [place] [address] Scientific Informatics Analyst: Merlin Charles MD Sodium [Moles/Vol] 142 mmol/L Normal 135-144 [facility] Comment on above: Performed By: #### P HEP, HIVCMB #### [facility] [address] [place], [place] [id number] Scientific Informatics Analyst: Antonino Nova MD #### BMPCMP, BMP, CBC #### [facility] [address] [place] [address] Scientific Informatics Analyst: Merlin Charles MD Urea nitrogen [Mass/Vol] 10 mg/dL Normal 6-20 [facility] Comment on above: Performed By: #### P HEP, HIVCMB #### [facility] [address] [place], [place] [id number] Scientific Informatics Analyst: Antonino Nova MD #### BMPCMP, BMP, CBC #### [facility] [address] [place] [address] Scientific Informatics Analyst: Merlin Charles MD Comprehensive Metabolic Pane [facility] 09-13-2022 Albumin [Mass/Vol] 4.1 g/dL 3.5 - 5.2 g/dL [facility] Albumin/Globulin [Mass ratio] 2.1 {ratio} 1.0 - 2.5 [facility] ALP [Catalytic activity/Vol] 67 U/L 35 - 104 U/L [facility] ALT [Catalytic activity/Vol] 41 U/L High 5 - 33 U/L [facility] Anion gap [Moles/Vol] 6 mmol/L Low 9 - 17 mmol/L [facility] AST [Catalytic activity/Vol] 52 U/L High NINF - 32 U/L [facility] Bilirubin [Mass/Vol] 0.6 mg/dL 0.3 - 1 .2 mg/dL [facility] Calcium [Mass/Vol] 10.0 mg/dL 8.6 - 10. 4 mg/dL [facility] Chloride [Moles/Vol] 108 mmol/L High 98 - 10 7 mmol/L [facility] CO2 [Moles/Vol] 28 mmol/L 20 - 31 mmol/L [facility] Creatinine [Mass/Vol] 0.61 mg/dL 0.50 - 0.90 mg/dL [facility] GFR/1.73 sq M.predicted MDRD (S/P/Bld) [Vol rate/Area] - PINF [facility] Comment on above: These results are [...] 87 mg/dL 70 - 99 mg/dL [facility] Interpretation and review of laboratory results Abnormal [facility] Potassium [Moles/Vol] 5.0 mmol/L 3.7 - 5.3 mmol/L [facility] Protein [Mass/Vol] 6.1 g/dL Low 6.4 - 8.3 g/dL [facility] Sodium [Moles/Vol] 142 mmol/L 135 - 144 mmol/L [facility] Urea nitrogen [Mass/Vol] 10 mg/dL 6 - 20 mg/dL [facility] Urea nitrogen/Creatinine (Bld) [Mass ratio] 16 9 - 20 [facility] HCG Qualitative, Serumon hCG Qual Negative NEGATIVE [facility] Comment on above: Specimens with hCG l evels near the threshold of the test (25 mIU/mL) may give a negative or indeterminate result. In such cases, another test should be performed with a new specimen in 48-72 hours. If early is suspected clinically in this setting, correlation with quantitative serum b-hCG level is suggested. [facility] has confirmed the use of plasma for this test. This has not been cleared or approved by the U.S. Food and Drug Administration. The FDA has determined that such clearance is not necessary. [facility] HCG Screen, Bloodon 09-14-19 23 HCG Screen, Blood Negative Normal NEG [facility] [...] with quantitative serum b-hCG level is suggested. [employer] has confirmed the use of plasma for this test. This has not been cleared or approved by the U.S. Food and Drug Administration. The FDA has determined that such clearance is not necessary. Performed By: #### P HEP, HIVCMB #### [facility] [address] [place], [place] [id number] Scientific Informatics Analyst: Antonino Nova MD #### BMPCMP, BMP, CBC #### [facility] [address] [place] [address] [place] [address] Scientific Informatics Analyst: Merlin Charles MD HCV RNA,Quant,PCRon 09-14-19 23 Source .PLASMA Normal [facility] Comment on above: Performed By: #### H CVQN #### [facility] [address] [place] [address] Scientific Informatics Analyst: Antonino Nova MD [facility] [address] [place] [address] Scientific Informatics Analyst: Merlin Charles MD HIV Ag/Abon 09-13-2022 HIV Ag/Ab Non-Reactive Normal NR [facility] Comment on above: Result Comment: No l aboratory evidence of HIV infection. If acute HIV infection is suspected, consider testing for HIV-1 RNA. Performed By: #### P HEP, HIVCMB #### [address] [address] Scientific Informatics Analyst: Antonino Nova MD #### BMPCMP, BMP, CBC #### [address] [place] [address] Scientific Informatics Analyst: Merlin Charles MD HIV Screenon 09-13-2022 HIV 1+2 Ab+HIV1 p24 Ag IA Ql Non-Reactive NONREACTIVE [facility] Comment on above: No laboratory eviden ce of HIV infection. If acute HIV infection is suspected, consider testing for HIV-1 RNA. [facility] Hepatitis Acute Jonnie 09-13 Hep A Ab,IgM Non-Reactive Normal NR [facility] Comment on above: Performed By: #### P HEP, HIVCMB #### [address] [address] Scientific Informatics Analyst: Antonino Nova MD #### BMPCMP, BMP, CBC #### [address] [place] [address] Scientific Informatics Analyst: Merlin Charles MD Hep B Core Ab,IgM Non-Reactive Normal NR [facility] Comment on above: Performed By: #### P HEP, HIVCMB #### [address] [address] Scientific Informatics Analyst: Antonino Nova MD #### BMPCMP, BMP, CBC #### [address] [place], [place] [id number] Scientific Informatics Analyst: Merlin Charles MD Hep B Surf Ag Non-Reactive Normal NR [facility] Comment on above: Performed By: #### P HEP, HIVCMB #### [address] [address] Scientific Informatics Analyst: Antonino Nova MD #### BMPCMP, BMP, CBC #### [address] [place] [address] Scientific Informatics Analyst: Merlin Charles MD Hep C Ab Reactive Abnormal NR [facility] Comment on [...] Performed By: #### P HEP, HIVCMB #### [facility] [employer] [address] [place], [place] [id number] Scientific Informatics Analyst: Antonino Nova MD #### BMPCMP, BMP, CBC #### [facility] [address] [place] [address] [place] [address] Scientific Informatics Analyst: Merlin Charles MD Hepatitis Panel, [facility] HAV IgM Ql (S) Non-Reactive NONREACTIVE [facility] HBV core IgM Ql (S) Non-Reactive NONREACTIVE [facility] HBV surface Ag IA Ql Non-Reactive NONREACTIVE B ON [facility] HCV Ab IA Ql Reactive Abnormal NONREACTIVE [facility] Comment on above: The hepatitis [...] and review of laboratory results Abnormal [facility] Comp Metabolic Addonon 04-20 Albumin [Mass/Vol] 4.5 g/dL Normal 3.5-5.2 [facility] Comment on above: Performed By: #### P HEP, HIVCMB #### [facility] [employer] [address] [place], [place] [id number] Scientific Informatics Analyst: Antonino Nova MD #### BMPCMP, BMP, CBC #### [facility] [address] [place], [place] 6983983 Scientific Informatics Analyst: Merlin Charles MD Albumin/Glob Ratio 2.0 Normal 1.0-2.5 [facility] Comment on above: Performed By: #### P HEP, HIVCMB #### [address] [id number] Scientific Informatics Analyst: Antonino Nova MD #### BMPCMP, BMP, CBC #### [address] [place], [place] [id number] Scientific Informatics Analyst: Merlin Charles MD Alkaline Phos 81 U/L Normal 35-104 [facility] Comment on above: Performed By: #### P HEP, HIVCMB #### [address] [address] Scientific Informatics Analyst: Antonino Nova MD #### BMPCMP, BMP, CBC #### [address] [place], [place] [id number] Scientific Informatics Analyst: Merlin Charles MD ALT [Catalytic activity/Vol] 106 U/L High 5-33 [facility] Comment on above: Performed By: #### P HEP, HIVCMB #### [address] [address] Scientific Informatics Analyst: Antonino Nova MD #### BMPCMP, BMP, CBC #### [address] [place], [place] [id number] Scientific Informatics Analyst: Merlin Charles MD AST [Catalytic activity/Vol] 77 U/L High <32 [facility] Comment on above: Performed By: #### P HEP, HIVCMB #### [address] [address] Scientific Informatics Analyst: Antonino Nova MD #### BMPCMP, BMP, CBC #### [address] [place], [place] [id number] Scientific Informatics Analyst: Merlin Charles MD Bilirubin [Mass/Vol] 0.6 mg/dL Normal 0.3-1.2 [facility] Comment on above: Performed By: #### P HEP, HIVCMB #### [address] [address] Scientific Informatics Analyst: Antonino Nova MD #### BMPCMP, BMP, CBC #### [facility] [address] [place] [address] Dr. [place], [place] 0162583 Scientific Informatics Analyst: Merlin Charles MD Protein [Mass/Vol] 6.7 g/dL Normal 6.4-8.3 [facility] Comment on above: Performed By: #### P HEP, HIVCMB #### [address] [address] Scientific Informatics Analyst: Antonino Nova MD #### BMPCMP, BMP, CBC #### [address] [place], [place] 0041183 Scientific Informatics Analyst: Merlin Charles MD HCV RNA,Quant,PCRon 04-20-20 HCV Quant 1,330,000 IU/mL Normal [facility] Comment on above: Performed By: #### P HEP, HIVCMB #### [address] [address] Scientific Informatics Analyst: Antonino Nova MD #### BMPCMP, BMP, CBC #### [facility] [address] [place] [address] Dr. [place], [place] 1500083 Scientific Informatics Analyst: Merlin Charles MD HCV RNA,Quant Detected Abnormal NOTDET [facility] Comment on [...] Performed By: #### P HEP, HIVCMB #### [address] [address] Scientific Informatics Analyst: Antonino Nova MD #### BMPCMP, BMP, CBC #### [address] [place], [place] [id number] Scientific Informatics Analyst: Merlin Charles MD HCV,RNA Log 6.12 Log IU/mL Normal [facility] Comment on above: Performed By: #### P HEP, HIVCMB #### [address] [address] Scientific Informatics Analyst: Antonino Nova MD #### BMPCMP, BMP, CBC #### [address] [place] [address] Scientific Informatics Analyst: Merlin Charles MD Basic Metabolic Profon 04-19 Anion gap [Moles/Vol] 7 mmol/L Low -17 [facility] Comment on above: Performed By: #### P HEP, HIVCMB #### [address] [address] Scientific Informatics Analyst: Antonino Nova MD #### BMPCMP, BMP, CBC #### [address] [place] [address] Scientific Informatics Analyst: Merlin Charles MD BUN/CRE Ratio 20 Normal - [facility] Comment on above: Performed By: #### P HEP, HIVCMB #### [address] [address] Scientific Informatics Analyst: Antonino Nova MD #### BMPCMP, BMP, CBC #### [address] [place], [place] 9702383 Scientific Informatics Analyst: Merlin Charles MD Calcium [Mass/Vol] 9.9 mg/dL Normal 8.6-10.4 [facility] Comment on above: Performed By: #### P HEP, HIVCMB #### [address] [address] Scientific Informatics Analyst: Antonino Nova MD #### BMPCMP, BMP, CBC #### [address] [place], [place] [phone] Scientific Informatics Analyst: Merlin Charles MD Chloride [Moles/Vol] 106 mmol/L Normal 98-107 [facility] Comment on above: Performed By: #### P HEP, HIVCMB #### [address] [id number] Scientific Informatics Analyst: Antonino Nova MD #### BMPCMP, BMP, CBC #### [address] [place], [place] 7883783 Scientific Informatics Analyst: Merlin Charles MD CO2 [Moles/Vol] 29 mmol/L Normal 20-31 [facility] Comment on above: Performed By: #### P HEP, HIVCMB #### [address] [address] Scientific Informatics Analyst: Antonino Nova MD #### BMPCMP, BMP, CBC #### [address] [place], [place] 9674783 Scientific Informatics Analyst: Merlin Charles MD Creatinine [Mass/Vol] 0.79 mg/dL Normal 0.50-0.90 [facility] Comment on above: Performed By: #### P HEP, HIVCMB #### [address] [id number] Scientific Informatics Analyst: Antonino Nova MD #### BMPCMP, BMP, CBC #### [address] [place] [address] Scientific Informatics Analyst: Merlin Charles MD GFR/1.73 sq M.predicted among non-blacks MDRD (S/P/Bld) [Vol rate/Area] mL/min/{1.73_m2} Normal >60 [facility] Comment on [...] Performed By: #### P HEP, HIVCMB #### [address] [id number] Scientific Informatics Analyst: Antonino Nova MD #### BMPCMP, BMP, CBC #### [address] [place] [address] Scientific Informatics Analyst: Merlin Charles MD Glucose [Mass/Vol] 98 mg/dL Normal 70-99 [facility] Comment on above: Performed By: #### P HEP, HIVCMB #### [address] [id number] Scientific Informatics Analyst: Antonino Nova MD #### BMPCMP, BMP, CBC #### [address] [place] [address] Scientific Informatics Analyst: Merlin Charles MD Potassium [Moles/Vol] 4.6 mmol/L Normal 3.7-5.3 [facility] Comment on above: Performed By: #### P HEP, HIVCMB #### [address] [id number] Scientific Informatics Analyst: Antonino Nova MD #### BMPCMP, BMP, CBC #### [address] [place], [place] 1309583 Scientific Informatics Analyst: Merlin Charles MD Sodium [Moles/Vol] 142 mmol/L Normal 135-144 [facility] Comment on above: Performed By: #### P HEP, HIVCMB #### [address] [address] Scientific Informatics Analyst: Antonino Nova MD #### BMPCMP, BMP, CBC #### [address] [place], [place] [id number] Scientific Informatics Analyst: Merlin Charles MD Urea nitrogen [Mass/Vol] 16 mg/dL Normal 6-20 [facility] Comment on above: Performed By: #### P HEP, HIVCMB #### [address] [address] Scientific Informatics Analyst: Antonino Nova MD #### BMPCMP, BMP, CBC #### [address] [place] [id number] Scientific Informatics Analyst: Merlin Charles MD CBCon 04-19-2022 Erythrocyte distribution width (RBC) [Ratio] 15.2 % High 11.8-14.4 [facility] Comment on above: Performed By: #### P HEP, HIVCMB #### [address] [address] Scientific Informatics Analyst: Antonino Nova MD #### BMPCMP, BMP, CBC #### [address] [place], [place] [id number] Scientific Informatics Analyst: Merlin Charles MD Hematocrit (Bld) [Volume fraction] 41.4 % Normal 36.3-47.1 [facility] Comment on above: Performed By: #### P HEP, HIVCMB #### [address] [address] Scientific Informatics Analyst: Antonino Nova MD #### BMPCMP, BMP, CBC #### [address] [place], [place] [id number] Scientific Informatics Analyst: Merlin Charles MD Hemoglobin (Bld) [Mass/Vol] 13.3 g/dL Normal 11.9-15.1 [facility] Comment on above: Performed By: #### P HEP, HIVCMB #### [address] [id number] Scientific Informatics Analyst: Antonino Nova MD #### BMPCMP, BMP, CBC #### [address] [place] [id number] Scientific Informatics Analyst: Merlin Charles MD MCH (RBC) [Entitic mass] 33.8 pg High 25.2-33.5 [facility] Comment on above: Performed By: #### P HEP, HIVCMB #### [address] [address] Scientific Informatics Analyst: Antonino Nova MD #### BMPCMP, BMP, CBC #### [address] [place] [address] Scientific Informatics Analyst: Merlin Charles MD MCHC (RBC) [Mass/Vol] 32.1 g/dL Normal 28.4-34.8 [facility] Comment on above: Performed By: #### P HEP, HIVCMB #### [address] [address] Scientific Informatics Analyst: Antonino Nova MD #### BMPCMP, BMP, CBC #### [address] [place] [address] Scientific Informatics Analyst: Merlin Charles MD MCV (RBC) [Entitic vol] 105.3 fL High 82.6-102.9 [facility] Comment on above: Performed By: #### P HEP, HIVCMB #### [address] [id number] Scientific Informatics Analyst: Antonino Nova MD #### BMPCMP, BMP, CBC #### [facility] [address] [place] [address] Scientific Informatics Analyst: Merlin Charles MD NRBC Automated 0.0 per 100 WBC Normal 0.0 [facility] Comment on above: Performed By: #### P HEP, HIVCMB #### [address] [id number] Scientific Informatics Analyst: Antonino Nova MD #### BMPCMP, BMP, CBC #### [facility] [address] [place] [address] Scientific Informatics Analyst: Merlin Charles MD Platelet mean volume (Bld) [Entitic vol] 9.1 fL Normal 8.1-13.5 [facility] Comment on above: Performed By: #### P HEP, HIVCMB #### [address] [id number] Scientific Informatics Analyst: Antonino Nova MD #### BMPCMP, BMP, CBC #### [facility] [address] [place] [id number] Scientific Informatics Analyst: Merlin Charles MD Platelets (Bld) [#/Vol] 203 10*3/uL Normal 138-453 [facility] Comment on above: Performed By: #### P HEP, HIVCMB #### [address] [id number] Scientific Informatics Analyst: Antonino Nova MD #### BMPCMP, BMP, CBC #### [facility] [address] [place] [address] Scientific Informatics Analyst: Merlin Charles MD RBC (Bld) [#/Vol] 3.93 10*6/uL Low 3.95-5.11 [facility] Comment on above: Performed By: #### P HEP, HIVCMB #### [address] [address] Scientific Informatics Analyst: Antonino Nova MD #### BMPCMP, BMP, CBC #### [address] [place], [place] [id number] Scientific Informatics Analyst: Merlin Charles MD WBC (Bld) [#/Vol] 4.1 10*3/uL Normal 3.5-11.3 [facility] Comment on above: Performed By: #### P HEP, HIVCMB #### [address] [address] Scientific Informatics Analyst: Antonino Nova MD #### BMPCMP, BMP, CBC #### [address] [place], [place] [phone] Scientific Informatics Analyst: Merlin Charles MD HCV RNA,Quant,PCRon 04-19-20 22 Source .PLASMA Normal [facility] Comment on above: Performed By: #### P HEP, HIVCMB #### [address] [address] Scientific Informatics Analyst: Antonino Nova MD #### BMPCMP, BMP, CBC #### [address] [place], [place] [phone] Scientific Informatics Analyst: Merlin Charles MD HIV Ag/Abon 04-19-2022 HIV Ag/Ab Non-Reactive Normal NR [facility] Comment on above: Result Comment: No l aboratory evidence of HIV infection. If acute HIV infection is suspected, consider testing for HIV-1 RNA. Performed By: #### P HEP, HIVCMB #### [address] [address] Scientific Informatics Analyst: Antonino Nova MD #### BMPCMP, BMP, CBC #### [address] [place] [address] Scientific Informatics Analyst: Merlin Charles MD Hepatitis Acute [facility] 04-19 Hep A Ab,IgM Non-Reactive Normal NR [facility] Comment on above: Performed By: #### P HEP, HIVCMB #### [address] [address] Scientific Informatics Analyst: Antonino Nova MD #### BMPCMP, BMP, CBC #### [facility] [address] [place] [address] [place], [place] [id number] Scientific Informatics Analyst: Merlin Charles MD Hep B Core Ab,IgM Non-Reactive Normal [facility] Comment on above: Performed By: #### P HEP, HIVCMB #### [address] [address] Scientific Informatics Analyst: Antonino Nova MD #### BMPCMP, BMP, CBC #### [address] [place] [id number] Scientific Informatics Analyst: Merlin Charles MD Hep B Surf Ag Non-Reactive Normal [facility] Comment on above: Performed By: #### P HEP, HIVCMB #### [address] [address] Scientific Informatics Analyst: Antonino Nova MD #### BMPCMP, BMP, CBC #### [facility] [address] [place] [address] [place] [id number] Scientific Informatics Analyst: Merlin Charles MD Hep C Ab Reactive Abnormal [facility] Comment on above: Result Comment: The [...] Performed By: #### P HEP, HIVCMB #### [address] [id number] Scientific Informatics Analyst: Antonino Nova MD #### BMPCMP, BMP, CBC #### [facility] [address] [place] [address] Scientific Informatics Analyst: Merlin Charles MD CBCon 11-09-2021 Hematocrit (Bld) [Volume fraction] 39.5 % 36.3 - 47.1 % [facility] Hemoglobin (Bld) [Mass/Vol] 12.6 g/dL 11.9 - 15.1 g/dL [facility] Interpretation and review of laboratory results Abnormal [facility] MCH (RBC) [Entitic mass] 32.6 pg 25.2 - 33.5 pg [facility] MCHC (RBC) [Mass/Vol] 31.9 g/dL 28.4 - 34.8 g/dL [facility] MCV (RBC) [Entitic vol] 102.3 fL 82.6 - 102.9 fL [facility] NRBC Automated 0.0 0.0 per 100 WBC [facility] Platelet distribution width (Bld) [Ratio] 14.9 % High 11.8 - 14.4 % [facility] Platelet mean volume (Bld) [Entitic vol] 9.7 fL 8.1 - 13.5 fL [facility] Platelets (Bld) [#/Vol] 175 10*3/uL [facility] RBC (Bld) [#/Vol] 3.86 10*6/uL Low 3.95 - 5.1 1 m/uL [facility] WBC (Bld) [#/Vol] 3.4 10*3/uL Low [facility] Comprehensive Metabolic Pane elvin 11-09-2021 Albumin [Mass/Vol] 4.7 g/dL 3.5 - 5.2 g/dL [facility] Albumin/Globulin [Mass ratio] 2.5 {ratio} [facility] ALP (Bld) [Catalytic activity/Vol] 76 U/L 35 - 104 U/L [facility] ALT [Catalytic activity/Vol] 50 U/L High 5 - 33 U/L [facility] Anion gap [Moles/Vol] 10 mmol/L 9 - 17 mmol/L [facility] AST [Catalytic activity/Vol] 40 U/L High <32 [facility] Bilirubin [Mass/Vol] 0.55 mg/dL 0.3 - 1 .2 mg/dL [facility] Calcium [Mass/Vol] 10.4 mg/dL 8.6 - 10. 4 mg/dL [facility] Chloride [Moles/Vol] 107 mmol/L 98 - 10 7 mmol/L [facility] CO2 [Moles/Vol] 25 mmol/L 20 - 31 mmol/L [facility] Creatinine [Mass/Vol] 0.72 mg/dL 0.50 - 0.90 mg/dL [facility] Free PSA/Total PSA [Mass fraction] 6.6 g/dL 6.4 - 8.3 g/dL [facility] GFR >60 >60 mL/min [facility] GFR Non- >60 >60 mL/min [facility] Glucose [Mass/Vol] 76 mg/dL 70 - 99 mg/dL [facility] Interpretation and review of laboratory results Abnormal [facility] Potassium [Moles/Vol] 3.9 mmol/L 3.7 - 5.3 mmol/L [facility] Sodium [Moles/Vol] 142 mmol/L 135 - 144 mmol/L [facility] Urea nitrogen (BldV) [Mass/Vol] 12 mg/dL 6 - 20 mg/dL [facility] Urea nitrogen/Creatinine (Bld) [Mass ratio] 17 [facility] HCG Qualitative, Serumon hCG Qual Negative NEGATIVE [facility] Comment on above: Specimens with hCG l evels near the threshold of the test (25 mIU/mL) may give a negative or indeterminate result. In such cases, another test should be performed with a new specimen in 48-72 hours. If early is suspected clinically in this setting, correlation with quantitative serum b-hCG level is suggested. [employer] has confirmed the use of plasma for this test. This has not been cleared or approved by the U.S. Food and Drug Administration. The FDA has determined that such clearance is not necessary. [facility] HIV Screenon 11-09-2021 HIV Ag/Ab Non-Reactive NONREACTIVE [facility] Comment on above: No laboratory eviden ce of HIV infection. If acute HIV infection is suspected, consider testing for HIV-1 RNA. [facility] Hepatitis Panel, Acuteon HAV IgM IA Qn (S) Non-Reactive NONREACTIVE [facility] Hep B Core Ab, IgM Non-Reactive NONREACTIVE [facility] Hepatitis B Surface Ag Non-Reactive NONREACTIVE [facility] Hepatitis C Ab Reactive Abnormal NONREACTIVE [facility] Comment on above: The hepatitis [...] and review of laboratory results Abnormal [facility] Laboratory - Chemistry and C hemistry - challengeon 11-09-2021 GFR/1.73 sq M.predicted MDRD (S/P/Bld) [Vol rate/Area] [facility] Comment on above: Average GFR for 20-2 9 years old: 116 mL/min/1.73sq m Chronic Kidney Disease: <60 mL/min/1.73sq m Kidney failure: <15 mL/min/1.73sq m eGFR calculated using average adult body mass. Additional eGFR calculator available at: http://www.[email or web address]/multiple_crcl_2012.htm Stage 1: Some kidney damage normal GFR Stage 2: Mild kidney damage GFR 60-89 Stage 3: Moderate kidney damage GFR 30-59 Stage 4: Severe kidney damage GFR 15-29 Stage 5: Severe kidney damage GFR <15 ESRD - chronic treatment by dialysis or transplant Microscopic Urinalysison - [facility] Bacteria, UA 4+ Abnormal None [facility] Epithelial Cells UA 2 TO 5 [facility] Interpretation and review of laboratory results Abnormal [facility] Mucus, UA 1+ Abnormal None [facility] RBC, UA 0 TO 2 [facility] WBC, UA 20 TO 50 [facility] Urinalysis with Reflex to Cu ltureon 10-27-2021 Bilirubin Urine SMALL Abnormal NEGATIVE [facility] Color, UA Yellow Yellow [facility] Glucose, Ur Negative NEGATIVE [facility] Interpretation and review of laboratory results Abnormal [facility] Ketones Ql (U) Negative NEGATIVE [facility] Leukocyte esterase Test strip Ql (U) MODERATE Abnormal NEGATIVE [facility] Nitrite, Urine Negative NEGATIVE [facility] pH, UA 6.5 [facility] Protein, UA TRACE Abnormal NEGATIVE [facility] Specific [place], UA 1.025 High [facility] Turbidity UA SLIGHTLY CLOUDY Abnormal Clear [facility] Urine Hgb Negative NEGATIVE [facility] Urobilinogen, Urine Normal Normal [facility] Microscopic Urinalysison - [facility] Bacteria, UA 1+ Abnormal None [facility] Epithelial Cells UA 5 TO 10 [facility] Interpretation and review of laboratory results Abnormal [facility] RBC, UA 0 TO 2 [facility] WBC, UA 5 TO 10 [facility] Urinalysis with Reflex to Cu ltureon 10-07-2021 Bilirubin Urine Negative NEGATIVE [facility] Color, UA Yellow Yellow [facility] Glucose, Ur Negative NEGATIVE [facility] Interpretation and review of laboratory results Abnormal [facility] Ketones Ql (U) Negative NEGATIVE [facility] Leukocyte esterase Test strip Ql (U) MODERATE Abnormal NEGATIVE [facility] Nitrite, Urine Negative NEGATIVE [facility] pH, UA 5.5 [facility] Protein, UA Negative NEGATIVE [facility] Specific [place], UA 1.025 High [facility] Turbidity UA Clear Clear [facility] Urine Hgb Negative NEGATIVE [facility] Urobilinogen, Urine Normal Normal [facility] SEROLOGYOrdered By: Suly Raman on 07-24-2021 HCG.beta subunit (U) [Moles/Vol] Negative Normal [facility] Man Sero Tobacco Screening.on 022 Adult depression screening assessment Yes Hiral Sanchez DO Work Phone: Tobacco use status CPHS a) Yes Hiral Cole-Cristal due[address]as [address] DO Work Phone: Tobacco Screening. Yes Marleny Lizbeth Heart-[facility] [address] DO Work Phone: [phone] Tobacco Screening. 3-Nearly every day Hiral Cole-Cristal [address] DO Work Phone: Tobacco Screening. 2-More than half the days Hiral dueñas 250 DO Work Phone: Tobacco Screening. 0-Not at all PEGGY Nieves Heart-[facility] [address] DO Work Phone: Tobacco Screening. Very Difficult Clif dueñas 250 DO Work Phone: XR SHOULDER LT [...] by: Janine DURON Date: 2021-07-04 02:09 Normal [facility] Vital Signs Date Time Vital Sign Value Performing Clinician Facility 02-21-2024 13:38-0400 Body height 160.02 cm [facility] 02-21-2024 13:38-0400 Body mass index (BMI) [Ratio] 25.4 kg/m2 [facility] 02-21-2024 13:38-0400 Body weight 65.34 kg [facility] 02-21-2024 13:38-0400 Heart rate 68 /min [facility] 07-06-2023 15:10-0500 Body temperature 98.42 [degF] Adolfo Hernandez [facility] 07-06-2023 15:10-0500 Diastolic blood pressure 69 mm[Hg] Adolfo Hernandez [facility] 07-06-2023 15:10-0500 Heart rate 102 /min Adolfo Hernandez [facility] 07-06-2023 15:10-0500 Respiratory rate 16 /min Adolfo Hernandez [facility] 07-06-2023 15:10-0500 SaO2% (BldA) [Mass fraction] 100 % Adolfo Hernandez [facility] 07-06-2023 15:10-0500 Systolic blood pressure 100 mm[Hg] Adolfo Hernandez [facility] 07-24-2021 17:25-0400 Body temperature 96.98 [degF] Zev Hamlin [facility] 07-24-2021 17:25-0400 Heart rate 66 /min Zev Hamlin [facility] 07-24-2021 17:25-0400 Respiratory rate 110 /min Zev Boubacar [facility] 07-24-2021 17:25-0400 SaO2% (BldA) [Mass fraction] 100 % Zev Boubacar [facility] 07-24-2021 17:25-0400 Systolic blood pressure 68 mm[Hg] Zev Hamlin [facility] 07-24-2021 17:20-0400 Body temperature 97.7 [degF] Zev Boubacar [facility] 07-24-2021 17:20-0400 Diastolic blood pressure 63 mm[Hg] Zev Hamlin [facility] 07-24-2021 17:20-0400 Heart rate 65 /min Zev Hamlin [facility] 07-24-2021 17:20-0400 Respiratory rate 11 /min Zev Hamlin [facility] 07-24-2021 17:20-0400 SaO2% (BldA) [Mass fraction] 100 % Zev Hamlin [facility] 07-24-2021 17:20-0400 Systolic blood pressure 106 mm[Hg] Zev Hamlin [facility] 07-24-2021 17:05-0400 Diastolic blood pressure 70 mm[Hg] Zev Hamlin [facility] 07-24-2021 17:05-0400 Heart rate 78 /min Zev Hamlin [facility] 07-24-2021 17:05-0400 Respiratory rate 11 /min Zev Hamlin [facility] 07-24-2021 17:05-0400 SaO2% (BldA) [Mass fraction] 100 % Zev Hamlin [facility] 07-24-2021 17:05-0400 Systolic blood pressure 109 mm[Hg] Zev Hamlin [facility] 07-24-2021 17:00-0400 Diastolic blood pressure 54 mm[Hg] Zev Hamlin [facility] 07-24-2021 16:53-0400 Body temperature 97.52 [degF] Zev Hamlin [facility] 07-24-2021 11:18-0400 Blood Pressure Location Zev Hamlin [facility] 07-24-2021 11:18-0400 BP/Pulse Patient Position Zev Hamlin [facility] 07-24-2021 11:18-0400 Mean blood pressure 78 mm[Hg] Zev Hamlin [facility] 07-24-2021 11:17-0400 Blood Pressure Location Zev Hamlin [facility] 07-24-2021 11:17-0400 Body temperature 98.24 [degF] Zev Hamlin [facility] 07-24-2021 11:17-0400 BP/Pulse Patient Position Zev Hamlin [facility] 07-24-2021 11:17-0400 Mean blood pressure 84 mm[Hg] Zev Hamlin [facility] 07-24-2021 11:17-0400 Respiratory rate 16 /min Zev Hamlin [facility] 07-24-2021 11:17-0400 Heart rate 72 /min Zev Hamlin [facility] 07-09-2021 09:07-0500 Diastolic blood pressure 62 mm[Hg] No PCP None [facility] DO Work Phone: 07-09-2021 09:07-0500 Systolic blood pressure 102 mm[Hg] No PCP None [facility] DO Work Phone: 07-09-2021 09:01-0500 Body height 160.02 cm No PCP None [facility] DO Work Phone: 07-09-2021 09:01-0500 Body mass index (BMI) [Ratio] 27.1 kg/m2 No PCP None [facility] DO Work Phone: 07-09-2021 09:01-0500 Body surface area Derived from formula 1.73 m2 No PCP None [facility] DO Work Phone: 07-09-2021 09:01-0500 Body weight 69.4 kg No PCP None [facility] DO Work Phone: 07-09-2021 09:01-0500 Diastolic blood pressure 62 mm[Hg] No PCP None [facility] DO Work Phone: 07-09-2021 09:01-0500 Heart rate 59 /min No PCP None [facility] DO Work Phone: 07-09-2021 09:01-0500 Systolic blood pressure 104 mm[Hg] No PCP None [facility] DO Work Phone: 07-09-2021 09:01-0500 18 1 No PCP None [facility] DO Work Phone: Comment on above: [id number] TS Encounters Encounter Date Encounter Type Care Provider Facility Start: 06-27-2024 End: 06-27-2024 Emergency department patient visit MICHAEL MEJIA [facility] Start: 06-26-2024 End: 06-26-2024 ambulatory Michael Mejia MD Work Phone: [facility] Work Phone: Start: 06-26-2024 End: 06-26-2024 Departed Referred Michael Mejia MD Work Phone: [facility] Start: 06-20-2024 End: 06-20-2024 Patient encounter procedure Michael Mejia MD Work Phone: [facility] [place] Work Phone: Start: 06-20-2024 End: 06-20-2024 ambulatory Michael Mejia MD Work Phone: [facility] Work Phone: Start: 05-03-2024 End: 05-03-2024 Patient encounter procedure [facility] Work Phone: Start: 05-03-2024 End: 05-03-2024 ambulatory NON STAFF [facility] Work Phone: Start: 04-19-2024 End: 04-19-2024 Patient encounter procedure [facility] [place] Work Phone: Start: 04-19-2024 End: 04-19-2024 ambulatory Imad Asaad Facility:[facility] Start: 04-11-2024 Non-patient / Non-visit Delmy Mejia MD Work Phone: [facility] Work Phone: Start: 03-12-2024 End: 03-12-2024 Emergency department patient visit ISAIAS ADDISON [facility] Start: 02-21-2024 End: 02-21-[address] [facility] Work Phone: Start: 02-21-2024 End: 02-21-2024 Patient encounter procedure [facility] Work Phone: Start: 02-09-2024 End: 02-09-2024 Lab Drop off Zev Hamlin [facility] Start: 02-09-2024 End: 02-09-2024 ambulatory Zev Hamlin Facility:[facility] Start: 01-14-2024 End: 01-14-2024 Emergency department patient visit NO PCP NO PCP [facility] Start: 10-24-2023 ambulatory Zev Hamlin Facility:[facility] Start: 10-23-2023 End: 10-23-2023 Emergency department patient visit NO PCP NO PCP [facility] Start: 09-08-2023 End: 09-08-2023 ambulatory NO PCP NO PCP [facility] Start: 09-08-2023 Encounter for genera l adult medical examination without abnormal findings NO NO PCP [facility] Start: 08-19-2023 End: 08-19-2023 Emergency department patient visit NO PCP NO PCP [facility] Start: 07-06-2023 End: 07-06-2023 Emergency department patient visit Adolfo Hernandez [facility] Start: 02-16-2023 ambulatory [facility] Start: 01-19-2023 ambulatory [facility] Start: 01-06-2023 ambulatory [facility] Start: 12-10-2022 End: 12-11-2022 ambulatory [facility] Start: 11-04-2022 ambulatory [facility] Start: 09-22-2022 End: 09-23-2022 ambulatory [facility] Start: 09-13-2022 End: 09-14-2022 ambulatory [facility] Start: 09-13-2022 End: 09-13-2022 Subsequent hospital visit by physician [facility] Start: 09-10-2022 End: 09-11-2022 ambulatory [facility] Start: 09-10-2022 End: 09-10-2022 Subsequent [...] to same day surgery center Zev Hamlin [facility] Start: 07-09-2021 Office consultation new/estab patient 60 min No PCP None [facility] DO Work Phone: Start: 07-04-2021 End: 07-04-[address] RADHA MOE Facility: Start: 06-29-2021 End: 10-15-2021 Recurring Zev Hamlin [facility] Patient encounter status No PCP None [facility] DO Work Phone: Procedures Date Procedure Procedure Detail Performing Clinician Start: 05-03-2024 Ultrasound elastogra phy of liver Start: 04-19-2024 Ultrasonography of liver Start: 09-13-2022 Antibody hiv-1&hiv-2 single result Hipolito Jackie [employer]S A[employer]LYST - [employer]OGRAPHIC [employer]OO[employer] Work Phone: Start: 09-13-2022 Comprehensive metabo lic panel Hipolito Jackie SENIOR CONTROLS ANALYST - LITHOGRAPHIC PROOFER Work Phone: Start: 11-09-2021 Antibody hiv-1&hiv-2 single result Hipolito Jackie SENIOR CONTROLS ANALYST - LITHOGRAPHIC PROOFER Work Phone: Start: 11-09-2021 Comprehensive metabo lic panel Hipolito Jackie SENIOR CONTROLS ANALYST - LITHOGRAPHIC PROOFER Work Phone: Start: 10-27-2021 Urinalysis microscop ic only Hipolito Jackie SENIOR CONTROLS ANALYST - LITHOGRAPHIC PROOFER Work Phone: Start: 10-27-2021 Urnls dip stick/tabl et rgnt auto w/o microscopy Hiploito Jackie SENIOR CONTROLS ANALYST - LITHOGRAPHIC PROOFER Work Phone: Start: 10-06-2021 Urinalysis microscop ic only Hipolito Jackie SENIOR CONTROLS ANALYST - LITHOGRAPHIC PROOFER Work Phone: Start: 10-06-2021 Urnls dip stick/tabl et rgnt auto w/o microscopy Hipolito Jackie SENIOR CONTROLS ANALYST - LITHOGRAPHIC PROOFER Work Phone: section No PCP None section [...] Treatment Date Care Activity Detail Author Start: 06-26-2024 Urine culture [facility] Start: 06-26-2024 Bacteria identified in Urine by Culture Urine Culture [facility] Start: 05-03-2024 [facility] Start: 02-21-2024 Hepatitis A virus Ab [Presence] in Serum by Immunoassay [facility] Start: 02-21-2024 Hepatitis B core antibody measurement [facility] Start: 02-21-2024 Hepatitis B virus surface Ab [Presence] in Serum [facility] Start: 02-21-2024 [facility] Start: 11-30-2022 Influenza vaccination Flu vacc ine (Season Ended) [facility] Start: 01-06-2022 Screening for malign ant neoplasm of cervix [facility] Start: 12-31-2021 Influenza vaccination B ON [facility] Start: 11-25-2021 FUV, Provider: Ruddy Garcia, Status: Pen, Time: 3:00 PM FUV, Provider: Ruddy Garcia, Status: Pen, Time: 3:00 PM [facility] 250 DO Work Phone: Start: 07-15-2021 ECHO, Provider: CRISTAL DUEÑAS HHVI ULTRASOUND ,[id number], Status: Pen, Time: 11:30 AM ECHO, Provider: MAXINE HHVI ULTRASOUND ,[id number], Status: Pen, Time: 11:30 AM [facility] 250 DO Work Phone: Start: 07-15-2021 STRESS NUC, Provider : MAXINE HHVI NUCLEAR 01,[id number], Status: Pen, Time: 11:30 AM STRESS NUC, Provider: MAXINE CASTROI NUCLEAR ,[id number], Status: Pen, Time: 11:30 AM [facility] 250 DO Work Phone: Start: 01-06-2013 Screening for malign ant neoplasm of cervix Pap smear [facility] [employer] Start: 01-06-2011 DTaP/Tdap/Td vaccine (1 - Tdap) DTaP/Tdap/Td vaccine (1 - Tdap) [employer] Start: 01-06-2010 Hepatitis C screening Hepatitis C sc reen [facility] [employer] Start: 2004 Depression Screen Depression Screen [facility] Start: 01-06-1998 Pneumococcal 0-64 ye ars Vaccine (1 - PCV) Pneumococcal 0-64 years Vaccine (1 - PCV) [facility] Start: 01-06-1997 COVID-19 Vaccine (1) COVID-19 Vaccin e (1) [employer] Start: 01-06-1993 Varicella vaccine (1 of 2 - 2-dose childhood series) Varicella vaccine (1 of 2 - 2-dose childhood series) [facility] [employer] Start: 1992 COVID-19 Vaccine (#1) COVID-19 Vacci ne (#1) [facility] End: 10-27-2021 Culture, Urine [facility] Work Phone: Comment on above: Once for 1 Occurrenc es starting 10/27/2021 until 10/27/2021 Hepatitis B virus surface Ag [Presence] in Serum or Plasma by Immunoassay [facility] End: 09-13-2022 Hepatitis C RNA, quantitative, PCR [facility] Work Phone: Comment on above: Once for 1 Occurrenc es starting 09/13/2022 until 09/13/2022 Hepatitis C virus Ig G Ab [Presence] in Serum or Plasma by Immunoassay [facility] Hepatitis C virus RN A [Units/volume] (viral load) in Serum or Plasma by BETZAIDA with probe detection [facility] Immunizations Immunization Date Immunization Notes Care Provider Seun marc 05-14-2012 influenza, seasonal, injectable Zev Hamlin [facility] Comment on above: Early/Late Reason: P atient Not Available/Off Unit 05-14-2012 measles, mumps and rubella virus vaccine Zev Hamlin [facility] Comment on above: Early/Late Reason: P atient Not Available/Off Unit Payers Date Payer Category Payer Self-pay [id number] 2023 Private Health Insurance [id number] 2020 Unknown [id number] 2019 Unknown [id number]. [id number] 1992 Unknown [id number] 2.16.840.1.797874.3.579.2. 593 1992 Unknown [id number] 2.16.840.1.507605.3.579.2. 173 1992 Unknown [id number] 2.16.840.1.137236.3.579.2. 173 1992 Unknown [id number] 2.16.840.1.645452.3.579.2. 173 1992 Unknown [id number] 2.16.840.1.021828.3.579.2. 173 1992 Unknown [id number] 2.16.840.1.105004.3.579.2. 173 1992 Unknown [id number] 2.16.840.1.734364.3.579.2. 983 1992 Unknown [id number] 2.16.840.1.553114.3.579.2. 983 1992 Unknown [id number] 2.16.840.1.025075.3.579.2. 983 1992 Unknown [id number] 2.16.840.1.723478.3.579.2. 983 1992 Unknown [id number] 2.16.840.1.245604.3.579.2. 727 1992 Unknown [id number] 2.16.840.1.076781.3.579.2. 727 1992 Unknown [id number] 2.16.840.1.144999.3.579.2. 727 1992 Unknown [id number] 2.16.840.1.387298.3.579.2. 727 1992 Unknown [id number] 2.16.840.1.947727.3.579.2. 1286 1992 Unknown [id number] 2.16.840.1.362965.3.579.2. 1285 1992 Unknown [id number] 2.16840.1.203959.3.579.2. 1285 1992 Unknown [id number] 2.840.1.326015.3.579.2. 1285 1992 Unknown [id number] 2.840.1.300120.3.579.2. 128 1992 Unknown [id number] 2.16840.1.086566.3.579.2. 1286 1959 Unknown [id number] Medicaid [employer] Medicaid [id number] Unknown [facility] Unknown [id number] 2.840.1.310386.3.579.2. 531 Unknown [id number] 2.840.1.904911.3.579.2. 531 Unknown [id number] 2.840.1.107811.3.579.2. 531 Unknown [id number] 2.840.1.001602.3.579.2. 531 Unknown [id number] 2.16840.1.881340.3.579.2. 531 Social History Date Type Detail Facility Start: 08-14-2013 End: 10-13-2017 Consumes alcohol occasionally Consumes alcohol occasionally [facility] DO Work Phone: Comment on above: <1PPD; Start: 06-25-2021 Tobacco smoking status Light t obacco smoker (finding) [facility] Sex Assigned At Female [facility] Start: 08-14-2013 End: 10-13-2017 Tobacco smoking status NHIS Smokes tobacco daily [facility] [employer] Work Phone: History of tobacco use Cigarette Smoker [employer] Phone: Start: 08-14-2013 End: 10-13-2017 Tobacco use and exposure Smokeless tobacco non-user [facility] [employer] Work Phone: Start: 09-11-2018 Alcohol intake 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) [employer] Phone: Start: 1990 Sex Assigned At Not on file [facility] [employer] Phone: Start: 1990 Sex Assigned At Female F [facility] Tobacco smoking stat us NHIS Unknown if ever smoked [facility] Work Phone: Start: 05-03-2024 End: 06-28-2024 Sex Female (finding) [facility] Functional Status Date Assessment Result Facility 07-06-2023 Functional Status N/A [facility] 07-09-2021 PHQ-9 [id number] Moder ately Severe (15-19) [facility] DO Work Phone: Clinical Notes 07-24-2021 to [...] workup we will initiate antiviral therapy [facility] Work Phone: [phone]) 596-203410-22-2024 Evaluation note* Author Flip Jean-Pierre [facility] Authored February 21, 2024 1 :00pm 34-year-old female referred to the liver clinic for evaluation of hepatitis C. Patient was diagnosed hepatitis C many years ago. Patient has treatment na ve. Check viral hepatitis serologies, HCV RNA and HCV genotype. Will arrange for FibroScan. After getting the results of the previous workup we will initiate antiviral therapy [facility] Work Phone: 1(424) 667-232703-08-2024 NoteMicrobiology PROCEDURE: Cervical Culture [R1] SOURCE: Cerv [...] Locations R1: This test was performed at: [facility], [address] [place] [address], [address], LflaesUc HealthComment on above:Performed By: #### [id number] #### [facility] [address] [place] [address] [phone] Hospital Discharge instructions Patient Education 07/06/2023 15:38:59 Viral Respiratory Infection, [place]-Oy-Twoj Viral Respiratory Infection A viral respiratory infection [...] at home: Managing pain and congestion Take pnos-zbb-ouckqut and prescription medicines only as told by [...] cannot use soap and water, use hand welfare service aide. ?Cover your mouth when you cough. Cover [...] away. Call your local emergency services (911 inthe [place] Do not wait to see if [...] provider. Document Revised: 07/23/2021 Document Reviewed: 07/23/2021 [employer] Patient Education 2022 Performance Indicator. Follow Up Care 07/06/2023 15:07:50 With:Boubacar MULLINS, Zev Webber, ROBYN Address: [address] [place] [address] [address] When:2 to 4 days With:[facility], [facility] Dept: [phone] Address:Unknown When:07/09/2023 [facility]03-06-2024 Evaluation + Plan note Diagnostic Tests Pending * Chlam/GC/Trich,BETZAIDA 07/06/23 * Urine Culture 07/06/23 [facility]03-25-2022 Hospital Discharge instructions Patient Education 07/24/2021 17:19:35 COMPOSITION MOLDER - Post D&C, Hysteroscopy, LEEP or Essure/Laparoscopy [...] Up Care 06/01/2021 16:23:25 With:Zev Hamlin Address: [facility] [place] [address]- Business (1) When:2 weeks Comments:Call for any problems. [facility] Narrative - ReportedCHEABDOULAYE NICHOLOSN is being seen for a consultation for. POC abnormal ECG; Dr. Hamlin Sterilization [facility] 250 DO Work Phone: Chief complaint Narrative - ReportedCHELSMANISHA NICHOLSON is being seen for a consultation for. POC abnormal ECG; Dr. Hamlin [facility] Work Phone: Evaluation + Plan note No data available for this section [facility] note[facility] assessment information available [facility] Work Phone: History of Present illness Narrative* Patient is seen for preoperative risk assessment. She apparently presented for tubal ligation and procedure was canceled because of abnormal EKG. * She has been in and out of the emergency room multiple times. Recently she was in [place] [facility] [...] correspond with the surgeon in this regard. [facility] 250 DO Work Phone: History of Present illness Narrative* Patient is seen for preoperative risk assessment. She apparently presented for tubal ligation and procedure was canceled because of abnormal EKG. * She has been in and out of the emergency room multiple times. Recently she [facility] [place] [facility] correspond with the surgeon in this regard. [facility] Work Phone: Hospital Discharge instructions No data available for this section [facility] No data available for this section [facility] Summary Purpose Family History No Family History Records Found Advance Directives No Advanced Directives Records FoundDocuments on File Type Date Recorded Patient Merchandise Flow Associate Expl anation ACP-Advance Directive ACP-Power of Bonding And Composite Fabricator Latest Code Status on File Code Status [...] 1:19pm B19.20 February 21, 2024 2 :06pm B19.April 19, 2024 1:34pm hep c May 03, 2024 12 :32pm Chief Complaint Admit Date April 19, 2024 1:34pm hep c May 03, 2024 12 :32pm B19.June 20, 2024 4:09pm Chief Complaint Admit Date April 19, 2024 1:34pm hep c May 03, 2024 12 :32pm B19.20 June 20, 2024 4:09pm Unknown June 26, 2024 5:07pm Additional Source Comments INFORMATION SOURCE (unrecogn ized section and content) DATE CREATED AUTHOR 07/14/2021 [facility] DATE CREATED AUTHOR AUTHOR'S ORGANIZ ATION 12/12/2022 [facility] DATE CREATED AUTHOR AUTHOR'S ORGANIZ ATION 02/17/2023 [facility] DATE CREATED AUTHOR AUTHOR'S ORGANIZ ATION 02/16/2024 [facility] DATE CREATED AUTHOR AUTHOR'S ORGANIZ ATION 03/15/2024 [facility] DATE CREATED AUTHOR AUTHOR'S ORGANIZ ATION 06/29/2024 [facility] DATE CREATED AUTHOR AUTHOR'S ORGANIZ ATION 07/01/2024 [facility] Care Teams (unrecognized sec tion and content) Team Status: Active Member Role Status Dates Michael Mejia MD Primary Care Provider Active Team Status: Active Member Role Status Ruth Mejia MD Primary Care Provider Active Start: April 11, 2024 Paul Cazares DO Attending Provider Active Sta rt: April 11, 2024 Team Status: Inactive Member Role Status Ruth Morejon MD Attending Provider Active Start: April 19, 2024 End: April 19, 2024 Michael Mejia MD Primary Care Provider Active Start: April 19, 2024 End: April 19, 2024 Team Status: Inactive Member Role Status Ruth Morejon MD Attending Provider Active Start: May 03, 2024 End: May 03, 2024 Michael Mejia MD Primary Care Provider Active Start: May 03, 2024 End: May 03, 2024 Team Status: Inactive Member Role Status Ruth Mejia MD Primary Care Provider Active Start: June 20, 2024 End: June 20, 2024 Flip Morejon MD Attending Provider Active Start: June 20, 2024 End: June 20, 2024 Team Status: Active Member Role Status Ruth Mejia MD Primary Care Provider Active Team [...] BE BASED ON THE PRIMARY CLINICAL RECORDS. [facility]. provides no warranty or guarantee of the accuracy or completeness of information in this document.
--- NOTE | 2024-07-01 20:35 | ECG_ITS ---
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
--- NOTE | 2024-07-01 20:42 | ED.CHESTPAI1 ---
HPI - Chest Pain General Chief Complaint: Chest Pain Stated Complaint: CHEST PAIN Time Seen by Provider: 07/01/24 20:33 Source: patient Mode of arrival: walk-in History of Present Illness HPI narrative: 34-year-old female coming to the ER, after show any presented to [facility] with a negative workup, planing of retrosternal chest pain that is continuous, the patient apparently mentioned that the pain is there send 3 days, and she was worried because she was told another facility that she is bradycardic Denies any other complaint of cough or fever She is a smoker of 1 less than 1 pack of cigarette daily Related Data Home Medications ?Medication ?Instructions ?Recorded ?Confirmed trazodone 100 mg tablet 100 mg PO BEDTIME 11/09/22 07/01/24 buspirone 10 mg tablet 10 mg PO TID 04/11/24 07/01/24 prazosin 1 mg capsule 1 mg PO DAILY 04/11/24 07/01/24 sertraline 50 mg tablet 50 mg PO Q24H 04/11/24 07/01/24 gabapentin 300 mg capsule 300 mg PO DAILY 07/01/24 07/01/24 Previous Rx's ?Medication ?Instructions ?Recorded cephalexin 500 mg capsule 500 mg PO BID 7 days #14 caps 06/26/24 hyoscyamine sulfate 0.125 mg 0.125 mg PO Q6H PRN abdominal pain 06/26/24 sublingual tablet (Levsin/SL) #20 tabs famotidine 20 mg tablet (Pepcid) 20 mg PO BID #10 tabs 07/01/24 pantoprazole 40 mg tablet,delayed 40 mg PO DAILY #30 tabs 07/01/24 release (Protonix) Allergies Allergy/AdvReac Type Severity Reaction Status Date / Time No Known Drug Allergies Allergy Verified 05/30/24 21:59 Review of Systems ROS Status of ROS 10 or more systems reviewed and unremarkable except as noted in history and below [facility] Medical History (Updated 07/01/24 @ 22:02 by Mariel Roe MD) Urinary tract infection with hematuria ?N39.0 - Urinary tract infection, site not specified (ICD-10) ?R31.9 - Hematuria, unspecified (ICD-10) Oral thrush ?B37.0 - Candidal stomatitis (ICD-10) Single delivery by section ?O82 - Encounter for delivery without indication (ICD-10) Liver failure ?K72.90 - Hepatic failure, unspecified without coma (ICD-10) Hep C w/o coma, chronic ?B18.2 - Chronic viral hepatitis C (ICD-10) Neurocardiogenic syncope ?R55 - Syncope and collapse (ICD-10) Family History (Updated 10/23/23 @ 19:39 by Makayla Campos, RN) Mother Family history of COPD (chronic obstructive pulmonary disease) Other Family history of cancer Family history of hypertension Social History (Updated 10/23/23 @ 19:41 by Makayla Campos, RN) Within the past year, how often did you have a drink containing alcohol: never Within the past year, how many standard drinks containing alcohol did you have on a typical day: 1 or 2 Within the past year, how often did you have six or more drinks on one occasion: never Total score: 0 Score interpretation: A score less than 3 is consistent with normal alcohol consumption. 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; clean for four months Previous occupational history: [employer] Highest level of school completed/degree received: high school graduate Are you now , , , , never or living with a partner: living with partner In a typical week, how many times do you talk on the telephone with family, friends, or neighbors: 3 or more times per week How often do you get together with friends or relatives: 3 or more times per week How often do you attend alevism or taoist services: never Little interest or pleasure in doing things: not at all Feeling down, depressed, or hopeless: not at all Feel stressed/tense/nervous/anxious/difficulty sleeping: to some extent Do you think of yourself as: straight/heterosexual Gender Identity: female Exam Narrative Exam Narrative: Nurses notes and vital signs reviewed and patient is not hypoxic. General: Well-appearing and in no apparent distress. Skin: Warm, dry, no pallor noted. No rash. Head: Normocephalic, atraumatic. Neck: Supple, non-tender. Eye: Pupils are equal, round and EOMI. No scleral icterus. Ears, Nose, Mouth, and Throat: TM are clear, no nasal mucosal hypertrophy. Oral mucosa is moist, no posterior oropharynx erythema, uvula is mid-line Cardiovascular: Regular Rate and Rhythm without murmur, gallop or rub. Respiratory: No accessory muscle use or respiratory distress. Lungs are clear to auscultation, no wheezing, rales or rhonchi Chest Wall: no tenderness Back: No midline thoracic or lumbar vertebral tenderness. No CVA tenderness Musculoskeletal: normal ROM, no calf or popliteal tenderness, no lower extremity edema/swelling GI: Abdomen is soft, non-distended. Normal bowel sounds. No masses appreciated. No tenderness to palpation. No rebound, guarding, or rigidity noted. Neurological: A&O x4. No cranial nerve dysfunction observed. Constitutional Vital Signs, click to edit/add: Last Vital Signs Temp 97.9 F 07/01/24 20:22 Pulse 62 07/01/24 22:11 Resp 16 07/01/24 22:11 BP 128/67 07/01/24 22:11 Pulse Ox 100 07/01/24 22:11 O2 Del Method Room Air 07/01/24 22:11 Course Vital Signs Vital signs: Vital Signs Temperature 97.9 F 07/01/24 20:22 Pulse Rate 59 L 07/01/24 20:22 Respiratory Rate 18 07/01/24 20:22 Blood Pressure 118/61 07/01/24 20:22 Pulse Oximetry 99 07/01/24 20:22 Oxygen Delivery Method Room Air 07/01/24 20:22 Temperature 97.9 F 07/01/24 20:22 Pulse Rate 62 07/01/24 22:11 Respiratory Rate 16 07/01/24 22:11 Blood Pressure 128/67 07/01/24 22:11 Pulse Oximetry 100 07/01/24 22:11 Oxygen Delivery Method Room Air 07/01/24 22:11 MDM - Chest Pain MDM Narrative Medical decision making narrative: The patient EKG showing sinus rhythm with a heart rate of [address] elevation or depression The patient CBC and chemistry showed no acute pathology and troponin was negative Presentation mostly secondary to atypical chest pain The patient was noted to have elevated LFTs and she have a history of hepatitis C she will follow-up with her bilingual social worker as her last visit on 26 June she had also an ultrasound of the right upper quadrant that was normal The patient is to follow up with primary care physician in next 2-3 days or to return to the emergency department should any of the signs or symptoms worsen or new symptoms develop. The patient agrees with the following Diagnosis and Treatment plan and the patient will be discharged home. Lab Data Labs: Lab Results 07/01/24 Range/Units 20:56 WBC 3.3 L (4.0-11.0) 10^3/uL RBC 3.99 L (4.20-5.40) 10^6/uL Hgb 11.8 L (12.0-16.0) g/dL Hct 36.4 (36.0-48.0) % MCV 91.2 (81.0-99.0) fL MCH 29.6 (26.7-34.0) pg MCHC 32.4 (29.9-35.2) g/dL RDW 14.6 (11.0-15.0) % Plt Count 142 L (150-450) 10^3/uL MPV 10.6 (9.5-13.5) fL Neut % (Auto) 48.8 (43.0-75.0) % Lymph % (Auto) 44.3 (20.5-60.0) % Cloud % (Auto) 6.6 (1.7-12.0) % Eos % (Auto) 0.0 L (0.9-7.0) % Baso % (Auto) 0.0 L (0.2-2.0) % Neut # (Auto) 1.6 (1.4-6.5) 10^3/uL Lymph # (Auto) 1.5 (1.2-3.8) 10^3/uL Cloud # (Auto) 0.2 L (0.3-0.8) 10^3/uL Eos # (Auto) 0.0 (0.0-0.7) 10^3/uL Baso # (Auto) 0.0 (0.0-0.1) 10^3/uL Abs Immat Gran (auto) 0.01 (0.00-0.03) 10^3/uL Imm/Tot Granulo (auto) 0.3 (0.0-0.5) % Sodium 144 (136-145) mmol/L Potassium 4.0 (3.5-5.1) mmol/L Chloride 110 H (98-107) mmol/L Carbon Dioxide 29.1 (21.0-32.0) mmol/L Anion Gap 8.9 BUN 18.0 (7.0-18.0) mg/dL Creatinine 0.79 (0.55-1.02) mg/dL Est GFR ( Amer) >60 (>=60 mL/min/1.73m^2) Est GFR (Non-Af Amer) >60 (>=60 mL/min/1.73m^2) BUN/Creatinine Ratio 22.8 Glucose 98 (74-106) mg/dL Calcium 9.7 (8.5-10.1) mg/dL Total Bilirubin 0.4 (0.2-1.0) mg/dL AST 165 H (15-37) U/L ALT 230 H (14-59) U/L Alkaline Phosphatase 106 (46-116) U/L Troponin I High Sens 17.6 (4.0-51.3) pg/mL Total Protein 5.7 L (6.4-8.2) g/dL Albumin 3.0 L (3.4-5.0) g/dL Globulin 2.7 g/dL Albumin/Globulin Ratio 1.1 Lipase 32.0 (16.0-77.0) U/L Serum HCG, Qual Negative (NEGATIVE) Discharge Plan Discharge Chief Complaint: Chest Pain Clinical Impression: Atypical chest pain, Esophageal spasm Patient Disposition: Home, Self-Care Time of Disposition Decision: 22:02 Condition: Good Prescriptions / Home Meds: New famotidine [Pepcid] 20 mg tablet 20 mg PO BID Qty: 10 0RF pantoprazole [Protonix] 40 mg tablet,delayed release (DR/EC) 40 mg PO DAILY Qty: 30 0RF No Action trazodone 100 mg tablet 100 mg PO BEDTIME buspirone 10 mg tablet 10 mg PO TID prazosin 1 mg capsule 1 mg PO DAILY sertraline 50 mg tablet 50 mg PO Q24H cephalexin 500 mg capsule 500 mg PO BID 7 Days Qty: 14 0RF hyoscyamine sulfate [Levsin/SL] 0.125 mg tablet, sublingual 0.125 mg PO Q6H PRN (Reason: abdominal pain) Qty: 20 0RF gabapentin 300 mg capsule 300 mg PO DAILY Print Language: Danish Instructions: Chest Pain (DC), Esophageal Spasm (ED) Referrals: Bahman Mejia MD [Primary Care Provider] - 1 week Discharge Date/Time: 07/01/24 22:13
[2024-07-01 21:02] LABS: Hematocrit 36.4 % (36.0-48.0); Hemoglobin 11.8 g/dL (12.0-16.0); Immature Granulocytes Abs Auto 0.01 10^3/uL (0.00-0.03); Immature Granulocytes Pct Auto 0.3 % (0.0-0.5); Lymphocytes Absolute Auto 1.5 10^3/uL (1.2-3.8); Lymphocytes Percent Auto 44.3 % (20.5-60.0); Mean Corpuscular HGB Conc 32.4 g/dL (29.9-35.2); Mean Corpuscular Hemoglobin 29.6 pg (26.7-34.0); Mean Corpuscular Volume 91.2 fL (81.0-99.0); Mean Platelet Volume 10.6 fL (9.5-13.5); Monocytes Absolute Auto 0.2 10^3/uL (0.3-0.8); Monocytes Percent Auto 6.6 % (1.7-12.0); Neutrophils Absolute Auto 1.6 10^3/uL (1.4-6.5); Neutrophils Percent Auto 48.8 % (43.0-75.0); Platelet Count 142 10^3/uL (150-450); Red Blood Count 3.99 10^6/uL (4.20-5.40); Red Cell Distribution Width 14.6 % (11.0-15.0); White Blood Count 3.3 10^3/uL (4.0-11.0)
[2024-07-01] MEDS: KETOROLAC TROMETHAMINE 30 MG/ML VIAL 15 MG IVP (21:04)
[2024-07-01] MEDS: FAMOTIDINE/PF 20 MG/2 ML VIAL IV (21:05)
[2024-07-01 21:17] LABS: HCG Qualitative NEGATIVE (NEGATIVE); Internal Control Within Normal Limits
[2024-07-01 21:23] LABS: Alanine Aminotransferase 230 U/L (14-59); Albumin Globulin Ratio 1.1; Alkaline Phosphatase 106 U/L (46-116); Anion Gap 8.9; Aspartate Amino Transferase 165 U/L (15-37); BUN Creatinine Ratio 22.8; Bilirubin Total 0.4 mg/dL (0.2-1.0); Calcium 9.7 mg/dL (8.5-10.1); Carbon Dioxide 29.1 mmol/L (21.0-32.0); Chloride 110 mmol/L (98-107); Estimated GFR (African America >60 (>=60 mL/min/1.73m^2); Estimated GFR (Non-African Ame >60 (>=60 mL/min/1.73m^2); Globulin 2.7 g/dL; Glucose 98 mg/dL (74-106); Sodium 144 mmol/L (136-145); Total Protein 5.7 g/dL (6.4-8.2); Troponin I High Sensitivity 17.6 pg/mL (4.0-51.3)
== END 2024-07-01 22:13 | disposition home or self-care (01) ==
PROVIDERS: Emergency Provider Emergency Medicine; PCP Family Medicine
DX: R07.89 Other chest pain (principal); K22.4 Dyskinesia of esophagus; F17.210 Nicotine dependence, cigarettes, uncomplicated; F14.11 Cocaine abuse, in remission; R79.89 Other specified abnormal findings of blood chemistry
CPT/HCPCS: 36415; 71045; 80053; 83690; 84484; 84703; 85025; 93005; 96374; 96375; 99285; J1885; J3490

== ENCOUNTER 2024-09-11 07:43 | Outpatient (RCR) | payer OTHER, SELFPAY ==
[2024-09-11 13:27] LABS: Hematocrit 39.6 % (36.0-48.0); Immature Granulocytes Abs Auto 0.01 10^3/uL (0.00-0.03); Immature Granulocytes Pct Auto 0.3 % (0.0-0.5); Lymphocytes Absolute Auto 1.6 10^3/uL (1.2-3.8); Mean Corpuscular HGB Conc 32.8 g/dL (29.9-35.2); Mean Corpuscular Hemoglobin 29.6 pg (26.7-34.0); Mean Corpuscular Volume 90.2 fL (81.0-99.0); Mean Platelet Volume 9.8 fL (9.5-13.5); Monocytes Absolute Auto 0.1 10^3/uL (0.3-0.8); Monocytes Percent Auto 3.6 % (1.7-12.0); Neutrophils Absolute Auto 2.2 10^3/uL (1.4-6.5); Neutrophils Percent Auto 56.1 % (43.0-75.0); Platelet Count 159 10^3/uL (150-450); Red Blood Count 4.39 10^6/uL (4.20-5.40); Red Cell Distribution Width 16.3 % (11.0-15.0); White Blood Count 3.9 10^3/uL (4.0-11.0)
[2024-09-11 13:51] LABS: Alanine Aminotransferase 28 U/L (14-59); Albumin Globulin Ratio 1.3; Albumin Level 3.7 g/dL (3.4-5.0); Alkaline Phosphatase 80 U/L (46-116); Anion Gap 11.8; Aspartate Amino Transferase 23 U/L (15-37); Bilirubin Total 0.4 mg/dL (0.2-1.0); Calcium 10.1 mg/dL (8.5-10.1); Carbon Dioxide 27.9 mmol/L (21.0-32.0); Chloride 107 mmol/L (98-107); Estimated GFR (African America >60 (>=60 mL/min/1.73m^2); Estimated GFR (Non-African Ame >60 (>=60 mL/min/1.73m^2); Globulin 2.9 g/dL; Glucose 90 mg/dL (74-106); Potassium 3.7 mmol/L (3.5-5.1); Sodium 143 mmol/L (136-145); Total Protein 6.6 g/dL (6.4-8.2)
[2024-09-12 05:07] LABS: Vitamin B12 377 pg/mL (232-1245)
== END 2024-09-12 08:05 | disposition home or self-care (01) ==
LOC: HEMC 07:43
PROVIDERS: PCP Family Medicine; Visit Provider Internal Medicine Hematology & Oncology
DX: D51.9 Vitamin B12 deficiency anemia, unspecified (principal); B18.9 Chronic viral hepatitis, unspecified; D69.6 Thrombocytopenia, unspecified; R74.01 Elevation of levels of liver transaminase levels; D72.819 Decreased white blood cell count, unspecified; D64.9 Anemia, unspecified; F17.210 Nicotine dependence, cigarettes, uncomplicated; K72.00 Acute and subacute hepatic failure without coma; B17.10 Acute hepatitis C without hepatic coma
CPT/HCPCS: 36415; 80053; 82607; 85025; 87522; G0463

== ENCOUNTER 2024-09-23 13:27 | Emergency (ER) | payer OTHER, SELFPAY ==
--- OUTSIDE RECORDS SUMMARY | 2016-07-13 09:34 | XMS_ITS | Continuity of Care Document ---
Author Organization [facility] Address [address] [facility] [address] [place] [address] Phone Care Team Providers Care Estimator Printing Name Role Phone Minerva Bess Unavailable Unavailabl [...] then spit out 15.00 milliliter - Active Vistaril 25 mg capsule take 1 - 2 capsules by oral route 4 times every day as needed - Active ibuprofen 800 mg tablet take 1 tablet by oral route 3 times every day with food 800 MG - Active Celexa 40 mg tablet take 1 tablet by oral route every day 40 MG - Active Procedures Procedure Date OFFICE VISIT/NEW LEVEL IV Advance Directives Directive Yes / No Effective Date File Name No Information Encounters Encounter Description Practice Location Reason(s) For Visit Diagnoses Date Provider Providers Copied on Encounter [facility], [address], [place], [place], [id number], [place] tel:[phone] [facility] No Information 7 Lokesh Palma. [address], [place], [place], [id number] , [place]. tel:[phone] OFFICE VISIT/NEW LEVEL IV [facility], [address], [place], [place], [id number], [place] tel:[phone] [facility] Est care (chief complaint) Establishing care with new doctor, encounter forAnxietyBipolar 2 disorderPain, dentalLipoma of abdominal wall 6 Lokesh CATY Minerva. [address], [place], [place], [id number] , [place]. tel:[phone] Family History Family Member Type Diagnosis Age At Onset No Information Payers Payer name Insurance type Covered republican ID Rodolfo dunn(s) Kelly [facility] Medicaid CI [id number] [facility] [id number] Social History Type Description Quantity Date Captured [...] States she is currently in rehab ( [facility]) for drug abuse states she has been [...]
--- OUTSIDE RECORDS SUMMARY | 2018-04-19 20:00 | XMS_ITS | Continuity of Care Document ---
Author Organization [facility] Address [address] [place] [address] [place] [address] Phone Care Team Providers Care Electronic Gaming Device Supervisor Name Role Phone Unavailable Unavailable Unavailable Procedures Procedure Date OBSERVATION ADMIT/DISCHARGE SAME DATE De OBSERVATION ADMIT/DISCHARGE SAME DATE Oc Advance Directives Directive Yes / No Effective Date File Name No Information Encounters Encounter Description Practice Location Reason(s) For Visit Diagnoses Date Provider Providers Copied on Encounter OBSERVATION ADMIT/DISCHAR GE SAME DATE [facility] [employer] [facility], [address], [place], [place], [address], tel:[phone] [facility] No Information No Information OBSERVATION ADMIT/DISCHAR GE SAME DATE [facility] [employer] [facility], [address], [place], [place], [address], [place] tel:[phone] [facility] No Information No Information Family History Family Member Type Diagnosis Age At Onset No Information Payers Payer name Insurance type Covered alliance party ID Rodolfo dunn(s) Kelly [id number] Social History Type Description Quantity Date Captured Comments Sex Female Smoking Status No Information Chief Complaint And Reason For Visit No [...]
--- OUTSIDE RECORDS SUMMARY | 2023-10-26 04:30 | XMS_ITS ---
Author Organization [facility] vices Address [address] [place], [place] [id number] Support Name Relationship Address Phone Teddy Wynne Emergency Contact [address] [place], [place] [id number] Pauline Myles Guarantor Unknown [phone] Care Team Providers Care Video Game Programmer Name Role Phone Nataliia David Unavailable [phone] Navjot Wahl Unavailable [phone] REASON FOR VISIT Bloody stools Social History Sex Assigned At : Social History Observation Description Sex Assigned At Female Encounters Encounter Location Date Provider Diagnosis Main [address] [place], [place] [id number] 10/26/2023 Navjot Vish Plan Of Treatment No Information Progress Notes * Pauline MYLES NDOB:[birth year] (34 yo F)Acc No.[id number]:10/26/2023 Medical Note Patient: Pauline WATERMAN Provider: Alex Wahl PA-C :1990 A ge:33 Y S ex:Female Date:10/26/2023 Address:[address] [place], [place] [id number] Subjective: * Chief Complaints: * 1 . Bloody stools. * Medical History: Objective: * Vitals: Assessment: Plan: * Treatment: * Billing Information: * Visit Code: * Procedure Codes: * Electronic signature of GLENDY Nguyen on 09/23/2024 at 01:37 PM EDT Sign off status: Pending * Provider: Alex Wahl PA-C Date: 0 10/26/2023 Generated for Venice villalobos/Monica/eTransmitting on: 0 09/23/2024 01:37 PM EDT
--- OUTSIDE RECORDS SUMMARY | 2024-07-24 10:53 | XMS_ITS ---
Author Organization [facility] [place] Address [address] [place] [address] Care Team Providers Care Wedding Planner Name Role Phone Minerva Stringer Primary Care Provider REASON FOR VISIT hep c treatment Encounters Encounter Location Date Provider Diagnosis [facility] [address] [place] [address] 07/24/2024 Minerva Stringer Plan Of Treatment Next Appt Details Provider Name:Argentina Atkins , 11/13/2024 10:00:00 AM, [address] [place], [address], Provider Name:Minerva leon, 12/10/2024 02:00:00 PM, [address] [place], [address], Progress Notes * Pauline MYLES NDOB:[birth year] (34 yo F)Acc No.[id number]:07/24/2024 Patient: Pauline WATERMAN Martita :1990 A ge:34 Y S ex:Female Address:[address] [place] [address], [id number] * true * Date: Generated for Printi ng/Faxing/eTransmitting on: 0 09/23/2024 01:37 PM EDT
--- OUTSIDE RECORDS SUMMARY | 2024-09-02 17:47 | XMS_ITS ---
Author Organization OHIP Support Name Relationship Address Phone YANA RICHARDSON Mother Unknown Unavailable DEBRA YANA Mother Unknown Unavailable Swander, Milton Domestic Partner Unknown [phone] YANA RICHARDSON Mother Unknown Unavailable Santa, [place] [address] + Swander, [place] Domestic Partner Unknown [phone] YANA RICHARDSON Mother Unknown Unavailable Santa, [place] [address] + Swander, [place] Domestic Partner Unknown [phone] Santa, [place] [address] + Swander, [place] Domestic Partner Unknown [phone] Santa, [place] [address] + Swander, [place] Domestic Partner Unknown [phone] Santa, [place] [address] + Swander, [place] Domestic Partner Unknown [phone] LEONARDO RICHARDSONY Mother Unknown Unavailable DEBRA YANA Mother Unknown Unavailable [place] [address] [phone] Santa, [place] [address] + swander, [place] Domestic Partner Unknown [phone] [place] [address] [phone] SWMILTON BERMEO Significant Other Unknown [place] [address] [phone] Care Team Providers Care Repairer And Checker Name Role Phone Toño Morales Admitting Unavailable Toño Morales Attending Unavailable NON STAFF Primary Care Unavailable Shelby Dumont Admitting Unavailable Shelby Dumont Attending Unavailable Asaad, Imad Admitting Unavailable Asaad, Imad Attending Unavailable NON STAFF Primary Care Unavailable Asaad, Imad Admitting Unavailable Asaad, Imad Attending Unavailable Edsony, Michael M Primary Care Unavailable Asaad, Imad Admitting Unavailable Asaad, Imad Attending Unavailable Hoy, Michael M Primary Care Unavailable Asaad, Imad Admitting Unavailable Asaad, Imad Attending Unavailable Edsony, Michael M Primary Care Unavailable Asaad, Imad Admitting Unavailable Asaad, Imad Attending Unavailable Zev Hamlin Attending Unavailable Boubacar, Zev Webber Admitting Unavailable Zev Hamlin Attending Unavailable Zev Hamlin Admitting Unavailable NO PCP, NO PCP Primary Care Unavailable NO PCP, NO PCP Primary Care Unavailable ELIAN RODRIGUEZ Attending Unavailable ISAIAS ADDISON Attending Unavailable HOY, MICHAEL M Primary Care Unavailable HOY, MICHAEL M Primary Care Unavailable ISAIAS ADDISON Attending Unavailable HOY, MICHAEL M Primary Care Unavailable BARRY GOMEZ Attending Unavailable HOY, MICHAEL M Primary Care Unavailable ISAIAS ADDISON Attending Unavailable HOY, MICHAEL M Primary Care Unavailable ALEXANDRU LEAL Attending Unavailable Purpose PROBLEMS DATE TYPE CONDITION / CODE ATTENDING STATUS [facility] 08/03/2024 Unknown Otalgia, bilater al / H92.03(ICD-10) ISAIAS ADDISON [facility] 08/03/2024 Unknown Earache / FREETEXT(AOF) ISAIAS ADDISON [facility] 07/21/2024 Unknown Cellulitis of abdominal wall / L03.311(ICD-10) Toño Morales [facility] 07/18/2024 Unknown Cutaneous absces s of abdominal wall / L02.211(ICD-10) BARRY GOMEZ [facility] 07/18/2024 Unknown Skin Problem / FREETEXT(AOF) BARRY GOMEZ [facility] 07/02/2024 Unknown Right upper quad rant pain / R10.11(ICD-10) 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 / B19.20(ICD-10) [facility] 01/14/2024 Unknown Acute cystitis without hematuria / N30.00(ICD-10) ELIAN RODRIGUEZ [facility] 01/14/2024 Unknown Syncope and danielle apse / R55(ICD-10) ELIAN RODRIGUEZ [facility] 01/14/2024 Unknown Fall / FREETEXT(AOF) ELIAN RODRIGUEZ Acti ve [facility] 10/23/2023 Unknown Bloody Stool; Vomiting / UNK(Unknown) NA Active [facility] PROCEDURES No Procedure Records Found VITAL SIGNS No Vital Signs Records Found RESULTS TROP I, HIGH SENSITIVITY 1 HOUR Collected: 07/2024 7:16 PM Status: COMPLETED Source: [facility] TYPE CODE TESTS RESULT OUT OF RANGE REFERENCE UNITS LAB TNIHS TROPONIN I, HIGH SENSITIVITY 5 <16 ng/L Performed By: #### [email or web address] ## ## [facility] ([address] [address] VIR XR WRIST LT MIN 3 VWS Observed: 09/03/19 25 6:32 PM Status: COMPLETED Source: [facility] XR WRIST LT MIN 3 VWS XR WRIST LT MIN 3 VWS HISTORY: Fall with wrist pain. COMPARISON: None. IMPRESSION: 1. No acute fracture or dislocation. If there is concern for occult scaphoid fracture, recommend repeat radiographs in 7-10 days or evaluation with cross-sectional imaging. Finalized by Jaden Rogers MD on 09/02/2024 6:56 PM POCT , URINE (NUCG) Collected: 025 6:12 PM Status: COMPLETED Source: [facility] TYPE CODE TESTS RESULT OUT OF RANGE REFERENCE UNITS LAB NUCG URINE NURSING Negative Negative Performed By: #### NUCG #### [address] [address] VIR POCT NURSING URINE MACROSCOPIC UA Collected: 09/02/2024 6:11 PM Status: COMPLETED Source: [facility] TYPE CODE TESTS RESULT OUT OF RANGE REFERENCE UNITS LAB SPGRN SPECIFIC GRAVITY ERA >=1.030 Abnormal 1.010, 1.015, 1.020, 1.025 LAB LESTN LEUKOCYTE ESTERASE ERA Negative Negative LAB NITN NITRITE ERA Negative Negative LAB PHURN PH ERA 5.5 5.0, 6.0, 6.5, 7.0, 7.5, 8.0, 8.5, 5.5 LAB PRURN PROTEIN ERA Negative Negative LAB GLURN GLUCOSE ERA Negative Negative LAB KETN KETONES ERA Negative Negative LAB UROBN UROBILINOGEN ERA 1.0 E.U./dL 0.2 E.U./dL, 1.0 E.U./dL LAB BILEN BILIRUBIN ERA Negative Negative LAB BLURN BLOOD/HGB ERA Negative Negative Performed By: #### NUM #### [place] [address] VIR CBC WITH AUTO DIFFERENTIAL Collected: 0 09/02/2024 6:05 PM Status: COMPLETED Source: [facility] TYPE CODE TESTS RESULT OUT OF RANGE REFERENCE UNITS LAB WBC WBC 4.4 4-11 x10E9/L LAB RBC RBC COUNT 4.45 3.8-5.2 X10E12/L LAB HGB HEMOGLOBIN 13.2 11.7-15.5 g/dL LAB HCT HEMATOCRIT 39.3 35-47 % LAB MCV MCV 88 80-100 fL LAB MCH MCH 29.7 27-34 pg LAB MCHC MCHC 33.7 32-36 g/dL LAB RDW RDW 17.4 High 11.5-15 % LAB PLTC PLATELET COUNT 140 Low 150-450 X10E9/L LAB MPV MPV 8.3 7-12 fL LAB NEUT NEUTROPHILS RELATIVE PERCENT BY AUTOMATED COUNT 63.0 % LAB LYMP LYMPHOCYTES RELATIVE PERCENT BY AUTOMATED COUNT 31.8 % LAB MONO MONOCYTES RELATIVE PERCENT BY AUTOMATED COUNT 5.2 % LAB EOS EOSINOPHILS RELATIVE PERCENT BY AUTOMATED COUNT 0.0 % LAB BASO BASOPHILS RELATIVE PERCENT BY AUTOMATED COUNT 0.0 % LAB ANEUT NEUTROPHILS ABSOLUTE COUNT BY AUTOMATED COUNT 2.8 10*3/uL LAB ALYMP LYMPHOCYTES ABSOLUTE COUNT (10*3/UL) BY AUTOMATED COUNT 1.4 10*3/uL LAB AMONO MONOCYTES ABSOLUTE COUNT (10*3/UL) BY AUTOMATED COUNT 0.2 10*3/uL LAB AEOS EOSINOPHILS ABSOLUTE COUNT (10*3/UL) BY AUTOMATED COUNT 0.0 10*3/uL LAB ABASO BASOPHILS ABSOLUTE COUNT (10*3/UL) BY AUTOMATED COUNT 0.0 10*3/uL LAB DTYPE CELLAVISION DIFFERENTIAL TYPE AUTOMATED DIFFERENTIAL Performed By: #### CBCA #### [address] [address] VIR D-DIMER Collected: 09/02/2024 6:05 PM S tatus: COMPLETED Source: [facility] TYPE CODE TESTS RESULT OUT OF RANGE REFERENCE UNITS LAB DDIM D DIMER <^150 1-255 ug/mL Result Comment: Results <255 ng/mL DDU: The presensence of a VTE can safely be excluded with a negative D-Dimer result and Wells score. A negative result doesn't exclude the possibility of DIC. The test should be repeated along with other diagnostic tests if the patient's symptoms persist or worsen. Performed By: #### DDMR #### [address] [address] VIR MAGNESIUM Collected: 09/02/2024 6:05 PM S tatus: COMPLETED Source: [facility] TYPE CODE TESTS RESULT OUT OF RANGE REFERENCE UNITS LAB MG MAGNESIUM 2.2 1.8-2.6 mg/dL Performed By: #### MG #### [address] [address] VIR COMPREHENSIVE METABOLIC PANEL Collected: 2024 6:05 PM Status: COMPLETED Source: [facility] TYPE CODE TESTS RESULT OUT OF RANGE REFERENCE UNITS LAB NA SODIUM 137 134-146 mmol/L LAB K POTASSIUM 3.2 Low 3.5-5.0 mmol/L LAB CL CHLORIDE 105 98-109 mmol/L LAB CO2 CARBON DIOXIDE 27 22-32 mmol/L LAB AGAP ANION GAP 5 5-15 mmol/L LAB BUN BLOOD UREA NITROGEN 13 5-23 mg/dL LAB CRET CREATININE 0.77 0.40-1.00 mg/dL Result Comment: METHOD TRACE ABLE TO IDMS STANDARD LAB GLU GLUCOSE 120 High 65-99 mg/dL LAB CA CALCIUM 9.9 8.5-10.5 mg/dL LAB TP TOTAL PROTEIN 7.0 6.0-8.0 g/dL LAB ALB ALBUMIN 4.2 3.2-5.3 g/dL LAB ALK ALKALINE PHOSPHATASE 70 39-130 U/L LAB AST AST 25 <=41 U/L LAB ALT ALT 19 <=31 U/L LAB TBIL BILIRUBIN,TOTAL 0.6 0.3-1.2 mg/dL LAB EGFR EGFR (CKD-EPI) NON-RACE DEPENDENT >^90 >=60 ml/min/1 .73sq.m Result Comment: eGFR not rep orted due to non-numeric value for Creatinine. Reported eGFR is based on the CKD-EPI 2020 equation that does not use a race coefficient. Performed By: #### CMP #### [address] [address] VIR TROPONIN I, HIGH SENSITIVITY 0 HOUR Collected: 09/02/2024 6:05 PM Status: COMPLETED Source: [facility] TYPE CODE TESTS RESULT OUT OF RANGE REFERENCE UNITS LAB TNIHS TROPONIN I, HIGH SENSITIVITY 5 <16 ng/L Performed By: #### [email or web address] ## ## [facility] ([address] [address] VIR US ABDOMEN LIMITED Observed: 07/21/2024 3:30 PM Status: COMPLETED Source: [facility] Main [address] [address] Ultrasound Report Signed Patient: Sangeeta Nicholson MR#: [id number] 787 : 1990 Acct:[id number] Age/Sex: 34 / F ADM Date: 07/21/24 Loc: ER Room: Type: [facility] ER Attending Dr: Ordering Provider: Toño Morales PA-C Date of Service: 07/21/24 US/US abdomen limited: 2 suspected cyst R abdoman. Copies to: Toño Morales PA-C LIMITED/TARGETED ABDOMINAL ULTRASOUND: CLINICAL HISTORY: Multiple lumps right upper quadrant quadrant possible abscess with drainage COMPARISON: Ultrasound liver 07/02/2024 TECHNIQUE: Grayscale and color Doppler images of the right upper quadrant organs were obtained. FINDINGS: 3 areas of concern were scanned by the technologist. 1. Echogenic focus peripherally 1 cm size could represent a subcutaneous lipoma. 2. Echogenic foci noted approximately 1 cm size likely small areas of lipoma. 3. Mixed echogenicity with ovoid predominantly hypoechoic focus noted with surrounding vascularity. This may represent a reactive lymph node with adjacent fluid complex fluid measuring 3.0 x 0.8 cm size. US/US abdomen limited IMPRESSION: Sites of palpable abnormality noted 2 which may represent areas of possible lipomas. The third focus suspicious for possible resolving abscesses and possible area of reactive lymph node. Clinical correlation and clinical follow-up is recommended recommended. Impression dictated by: Narendra White M.D.07/21/2024 3:42 PM Dictation Location: [place] [address] Tech: Minerva Nima Transcribed By: [facility] 07/21/24 1542 Dictated By: Narendra White MD 07/21/24 1530 Signed By: <Electronically signed by Narendra White MD in OV> 07/21/24 1542 US LIVER Observed: 07/02/2024 1:49 PM Status: COMPLETED Source: [facility] [place] [address] Ultrasound Report Signed Patient: Sangeeta Nicholson MR#: [id number] 787 : 1990 Acct:[id number] Age/Sex: 34 / F ADM Date: 07/02/24 Loc: Room: Type: [facility] CLI Attending Dr: Flip Morejon MD Ordering Provider: Flip Morejon MD Date of Service: 07/02/24 US/US liver: R10.11 - Right upper quadrant pain Copies to: Flip Morejon MD LIMITED ABDOMINAL ULTRASOUND: CLINICAL HISTORY: Right upper quadrant pain COMPARISON: None TECHNIQUE: Grayscale and color Doppler images of the right upper quadrant organs were obtained. FINDINGS: Pancreas: Visualized portions appear unremarkable. Liver: Fatty infiltration. Gallbladder: Unremarkable. CBD: 1.9 mm US/US liver IMPRESSION: FATTY INFILTRATION OF THE LIVER. NO ACUTE PROCESS.. Impression dictated by: Alexis Kim Jr., D.OElfego07/02/2024 1:49 PM [facility]ictation [facility] Tech: Vinita Gomez Transcribed By: PWS 07/02/24 1349 Dictated By: Alexis Kim Jr, DO 07/02/24 1349 Signed By: <Electronically signed by Alexis Kim Jr, DO in OV> 07/02/24 1349 URINE NURSING Collected: 06/27/2024 1 2:19 PM Status: COMPLETED Source: [facility] TYPE CODE TESTS RESULT OUT OF RANGE REFERENCE UNITS LAB NUCG(LOINC) URINE NURSING Negative (qualifier value) NEG Performed By: #### [id number] ## ## [facility] ([id number]) [address] [place] [address], [place] [address] URN MACROSCOPIC ERA Collected: 06/27/2024 12:10 PM Status: COMPLETED Source: [facility] TYPE CODE TESTS RESULT OUT OF RANGE REFERENCE UNITS LAB SPGRN(LOINC) SPECIFIC GRAVITY ERA 1.020 1.003-1.035 LAB LESTN(LOINC) LEUKOCYTE ESTERASE ERA Negative (qualifier value) NEG LAB NITN(LOINC) NITRITE ERA Negative (qualifier value) NEG LAB PHURN(LOINC) PH ERA 6.5 5.0-8.5 LAB PRURN(LOINC) PROTEIN ERA Negative (qualifier value) NEG mg/dL LAB GLURN(LOINC) GLUCOSE ERA Negative (qualifier value) NEG mg/dL LAB KETN(LOINC) KETONES ERA Negative (qualifier value) NEG mg/dL LAB UROBN(LOINC) UROBILINOGEN ERA 2.0 High <1.1 eu /dL LAB BILEN(LOINC) BILIRUBIN ERA Negative (qualifier value) NEG LAB BLURN(LOINC) BLOOD/HGB ERA Negative (qualifier value) NEG Performed By: #### NUM #### [facility] ([id number]) [address] [place] [address] 1 HOUR TROP I, HIGH SENSITIVITY Collected: 06/03 11:58 AM Status: COMPLETED Source: [facility] TYPE CODE TESTS RESULT OUT OF RANGE REFERENCE UNITS LAB TNIHS1(LOINC) 1 HOUR TROP I, HIGH SENSITIVITY 5 <16 ng/L Performed By: #### [id number] # ### [facility] ([id number]) [address] [place] [address] CBC AND AUTO DIFF Collected: 06/27/2024 10:54 A M Status: COMPLETED Source: [facility] TYPE CODE TESTS RESULT OUT OF RANGE REFERENCE UNITS LAB WBC(LOINC) WBC COUNT 3.6 Low 4.0-11.0 X10E9/L LAB RBC(LOINC) RBC COUNT 4.17 3.80-5.20 X10E12/L LAB HGB(LOINC) HEMOGLOBIN 12.4 11.7-15.5 g/dL LAB HCT(LOINC) HEMATOCRIT 36.5 35-47 % LAB MCV(LOINC) MCV 88 80-100 fL LAB MCH(LOINC) MCH 29.8 27-34 pg LAB MCHC(LOINC) MCHC 34.0 32-36 g/dL LAB RDW(LOINC) RDW 15.3 High 11.5-15.0 % LAB PLTC(LOINC) PLATELET COUNT 145 Low 150-450 X10E9 /L LAB MPV(LOINC) MPV 8.5 7-12 fL LAB NEUT(LOINC) % NEUTROPHILS 56.8 % LAB LYMP(LOINC) % LYMPHOCYTES 36.1 % LAB MONO(LOINC) % MONOCYTES 7.0 % LAB EOS(LOINC) % EOSINOPHILS 0.0 % LAB BASO(LOINC) % BASOPHILS 0.1 % LAB ANEUT(LOINC) ABSOLUTE NEUTROPHIL 2.0 1.5-6.6 X10E9/L LAB ALYMP(LOINC) ABSOLUTE LYMPHOCYTE 1.3 1.0-3.5 X10E9/L LAB AMONO(LOINC) ABSOLUTE MONOCYTE 0.3 0-0.9 X10E9/L LAB AEOS(LOINC) ABSOLUTE EOSINOPHIL 0.0 0.0-0.4 X10E9/L LAB ABASO(LOINC) ABSOLUTE BASOPHIL 0.0 0.0-0.2 X10E9/L Performed By: #### RUT, 895 79-7, CMP #### [facility] ([id number]) [address] [place] [address] TROPONIN I, HIGH SENSITIVITY Collected: 10:54 AM Status: COMPLETED Source: [facility] TYPE CODE TESTS RESULT OUT OF RANGE REFERENCE UNITS LAB TNIHS(LOINC) TROPONIN I, HIGH SENSITIVITY 5 <16 ng/L Performed By: #### RUT, 895 79-7, CMP #### [facility] ([id number]) [address] [place] [address] COMPREHENSIVE METABOLIC PANEL Collected : 06/27/2024 10:54 AM Status: COMPLETED Source: [facility] TYPE CODE TESTS RESULT OUT OF RANGE REFERENCE UNITS LAB NA(LOINC) SODIUM 137 134-146 mmol/L LAB K(LOINC) POTASSIUM 4.3 3.5-5.0 mmol/L LAB CL(LOINC) CHLORIDE 110 High 98-109 mmol/L LAB CO2(LOINC) CARBON DIOXIDE 24 22-32 mmol/L LAB AGAP(LOINC) ANION GAP 3 Low 5-15 mmol/L LAB BUN(LOINC) BLOOD UREA NITROGEN 15 5-23 mg/dL LAB CRET(LOINC) CREATININE 0.51 0.40-1.00 mg/dL Result Comment: METHOD TRACE ABLE TO IDMS STANDARD LAB GLU(LOINC) GLUCOSE 88 65-99 mg/dL LAB CA(LOINC) CALCIUM 9.2 8.5-10.5 mg/dL LAB TP(LOINC) TOTAL PROTEIN 6.4 6.0-8.0 g/dL LAB ALB(LOINC) ALBUMIN 3.7 3.2-5.3 g/dL LAB ALK(LOINC) ALKALINE PHOSPHATASE 96 39-130 U/L LAB AST(LOINC) AST 191 High 0-41 U/L LAB ALT1(LOINC) ALT 199 High 0-31 U/L LAB TBIL(LOINC) BILIRUBIN,TOTAL 0.6 0.3-1.2 mg/d L LAB EGFR(LOINC) eGFR (CKD-EPI) NON-RACE DEPENDENT >90 >59 ml/min/1 .73sq.m Result Comment: Reported eGFR is based on the CKD-EPI 2020 equation that does not use a race coefficient. Performed By: #### CBCA, 895 79-7, CMP #### [facility] ([id number]) [address] [place] [address], [place] [address] URINE CULTURE Observed: 06/26/2024 5:07 PM Status: F Source: [facility] 40,000 colonies/ml mixed bacterial skin contaminants 2 Days PERFORMED BY: [place] [address] PATHOLOGIST [employer] DAMON MONROY M.D. Performed By: #### CUU #### [facility] [address] [place] [id number] [facility] COMPLETE BLOOD COUNT AUTO DIFF Collected: 06/20/2024 4:38 PM Status: F Source: F [facility] TYPE CODE TESTS RESULT OUT OF RANGE REFERENCE UNITS LAB WBC White Blood Count 4.1 Normal 3.8-11.6 10*3/uL LAB UNWBC Uncorrected WBC 4.1 Normal 3.8-11.6 10*3/uL LAB RBC Red Blood Count 4.47 Normal 3.60-5.00 10*6/u L LAB HGB Hemoglobin 13.2 Normal 11.8-15.4 g/dL LAB HCT Hematocrit 39.2 Normal 34.0-46.4 % LAB MCV Mean Corpuscular Volume 87.8 Normal 80-100 fL LAB MCH Mean Corpuscular Hemoglobin 29.5 Normal 24.7-34.3 pg LAB MCHC Mean Corpuscular HGB Conc 33.6 Normal 32.0-35.0 g/dL LAB RDW Red Cell Distribution Width 15.0 Normal 11.9-15.3 % LAB PLT Platelet Count 186 Normal 150-450 10*3/uL LAB MPV Mean Platelet Volume 8.3 Normal 6.3-10.7 fL LAB NE% Neutrophils % (Auto) 55.5 . % LAB LY% Lymphocytes % (Auto) 40.3 . % LAB MO% Monocytes % (Auto) 4.1 . % LAB EO% Eosinophils % (Auto) 0.0 . % LAB BA% Basophils % (Auto) 0.1 . % LAB NRBC% NRBC% 0.2 Normal 0-0.5 /100{WBC} LAB NE# Neutrophils # (Auto) 2.3 Normal 1.8-7.7 10*3/uL LAB LY# Lymphocytes # (Auto) 1.7 Normal 1.00-4.8 10*3/uL LAB MO# Monocytes # (Auto) 0.2 Normal 0.0-0.8 10*3/uL LAB EO# Eosinophils # (Auto) 0.0 Normal 0.0-0.45 10*3/uL LAB BA# Basophils # (Auto) 0.0 Normal 0.0-0.2 10*3/uL Result Comment: PERFORMED BY : [place] [address] PATHOLOGIST [employer] DAMON MONROY M.D. Performed By: #### CBC, PT, CMP #### [address] PROTHROMBIN TIME INR Collected: 06/20/2024 4:38 PM S tatus: F Source: [facility] TYPE CODE TESTS RESULT OUT OF RANGE REFERENCE UNITS LAB R PT Prothrombin Time 11.3 Normal 9.0-12.9 s Result Comment: A hematocrit value greater than 55% may lead to inaccurate results in coagulation testing. Patients having hematocrit values >55% require a special collection tube for coagulation studies. Please contact the laboratory at [phone] for redraw instructions. LAB INR INR 1.0 Result Comment: INR Therapeu tic Range A) Pre- and Peroperative OAT started [...] heart valves: 3 - 4.5 PERFORMED BY: [address] [place] [address] PATHOLOGIST [employer] DAMON MONROY M.D. Performed By: #### CBC, PT, CMP #### [address] [address] [facility] COMPREHENSIVE METABOLIC PANEL Collected: 06/20/2024 4 :38 PM Status: F Source: [facility] TYPE CODE TESTS RESULT OUT OF RANGE REFERENCE UNITS LAB GLU Glucose 86 Normal 70-100 mg/dL Result Comment: Random Gluco se Reference Range is dependent on time and content of last meal. Glucose of more than 200 mg/dL in a nonstressed, ambulatory subject supports the diagnosis of Diabetes Mellitus. ADA recommended reference range LAB BUN Blood Urea Nitrogen 15 Normal 7-25 mg/d L LAB CREATT Creatinine 0.76 Normal 0.60-1.20 mg/dL LAB GFReNR Estimated GFR >60.0 mL/Min LAB NA Sodium 141 Normal 136-145 mmol/L LAB K Potassium 4.3 Normal 3.5-5.1 mmol/L LAB CL Chloride 105 Normal 98-107 mmol/L LAB CO2 Carbon Dioxide 29.5 Normal 21.0-31.0 mmol/L LAB GAP Anion Gap 10.8 Normal 6.0-15.0 meq/L LAB CA Calcium 9.9 Normal 8.6-10.3 mg/dL LAB TP Total Protein 6.4 Normal 6.4-8.9 g/dL LAB ALB Albumin Level 4.1 Normal 3.5-5.7 g/dL LAB GLOB Globulin 2.3 g/dL LAB AGRATIO Albumin/Globulin Ratio 1.8 LAB BILIT Bilirubin,Total 0.6 Normal 0.3-1.0 mg/dL LAB AST Aspartate Amino Transferase 149 High 13-39 U/L LAB ALT Alanine Aminotransferase 203 High 7-52 U/L LAB ALP Alkaline Phosphatase 111 High 34-104 U/L Result Comment: PERFORMED BY : [place] [address] PATHOLOGIST [employer] DAMON MONROY M.D. Performed By: #### CBC, PT, CMP #### [facility] [address] [place] [address] [facility] US LIVER Observed: 04/19/2024 2:35 PM Status: COMPLETED Source: [facility] Main [place] [address] [place] [address] Ultrasound Report Signed Patient: Sangeeta Nicholson MR#: [id number] 787 : 1990 Acct:[id number] Age/Sex: 34 / F ADM Date: 04/19/24 Loc: Room: Type: [facility] Attending Dr: Flip Morejon MD Ordering [...] Kim Jr., D.O.04/19/2024 2:35 PM Dictation Location: [place] [address] Tech: Nahed Valero Transcribed By: RAMIN 04/19/24 1435 Dictated By: Alexis Kim Jr, DO 04/19/24 1435 Signed By: <Electronically signed by Alexis Kim Jr, DO in OV> 04/19/24 1435 URINE NURSING Collected: 03/12/2024 4 :11 PM Status: COMPLETED Source: [facility] TYPE CODE TESTS RESULT OUT OF RANGE REFERENCE UNITS LAB NUCG(LOINC) URINE NURSING Negative (qualifier value) NEG Performed By: #### 2106-3 ## ## [facility] ([id number]) [address] [place] [address], [place] [address] URN MACROSCOPIC ERA Collected: 03/12/2024 4:10 PM Status: COMPLETED Source: [facility] TYPE CODE TESTS RESULT OUT OF RANGE REFERENCE UNITS LAB SPGRN(LOINC) SPECIFIC GRAVITY ERA 1.020 1.003-1.035 LAB LESTN(LOINC) LEUKOCYTE ESTERASE ERA Negative (qualifier value) NEG LAB NITN(LOINC) NITRITE ERA Positive (qualifier value) Abnormal NEG LAB PHURN(LOINC) PH ERA 7.5 5.0-8.5 LAB PRURN(LOINC) PROTEIN ERA Negative (qualifier value) NEG mg/dL LAB GLURN(LOINC) GLUCOSE ERA Negative (qualifier value) NEG mg/dL LAB KETN(LOINC) KETONES ERA Negative (qualifier value) NEG mg/dL LAB UROBN(LOINC) UROBILINOGEN ERA 2.0 High <1.1 eu/dL LAB BILEN(LOINC) BILIRUBIN ERA Negative (qualifier value) NEG LAB BLURN(LOINC) BLOOD/HGB REA Negative (qualifier value) NEG Performed By: #### NUM #### [facility] ([id number]) [address] [place] [address], [place] [address] DRUG SCREEN, URINE Collected: 03/12/2024 4:05 PM Sta tus: COMPLETED Source: [facility] TYPE CODE TESTS RESULT OUT OF RANGE REFERENCE UNITS LAB AMPH(LOINC) AMPHETAMINE/METH A MP Negative (qualifier value) NEG Result Comment: AMPH/METH sc reening cut off = 1000 ng/mL LAB CORA(LOINC) BARBITURATES Negative (qualifier value) NEG Result Comment: Barbiturates screening cut off value = 200 ng/mL LAB BENZO(LOINC) BENZODIAZEPINES Negative (qualifier value) NEG Result Comment: Benzodiazepi thelma screening cut off value = 200 ng/mL LAB THC(LOINC) CANNABINOIDS Positive (qualifier value) Abnormal NEG Result Comment: Confirmation available upon request. Cannabinoids/THC screening cut off value = 50 ng/mL LAB COKE(LOINC) COCAINE METABOLITE Negative (qualifier value) NEG Result Comment: Cocaine scre ening cut off value = 300 ng/mL LAB OPIAT(LOINC) OPIATES Negative (qualifier value) NEG Result Comment: Opiates scre ening cut off value = 300 ng/mL NOTE: This test is used for the detection of codeine, hydrocodone (>1000 ng/mL), morphine and hydromorphone (>900 ng/mL) in urine. LAB PCP(LOINC) PHENCYCLIDINE Negative (qualifier value) NEG Result Comment: Phencyclidin e screening cut off value = 25 ng/mL LAB OXYX(LOINC) OXYCODONE Negative (qualifier value) NEG Result Comment: Oxycodone sc reening cut off value = 300 ng/mL NOTE: This test is used for the detection of oxycodone and oxymorphone in urine. LAB METH(LOINC) METHADONE Negative (qualifier value) NEG Result Comment: Methadone sc reening cut off value = 300 ng/mL. LAB MDMA(LOINC) ECSTASY Negative (qualifier value) NEG Result Comment: Ecstasy scre ening cut off value = 500 ng/mL This report is intended for use in clinical monitoring or management of patients. Performed By: #### DSU #### [facility] ([id number]) [address] [place] [address], [place] [address] COMPREHENSIVE METABOLIC PANEL Collected: 2023 3:00 PM Status: COMPLETED Source: [facility] TYPE CODE TESTS RESULT OUT OF RANGE REFERENCE UNITS LAB NA(LOINC) SODIUM 139 134-146 mmol/L LAB K(LOINC) POTASSIUM 4.4 3.5-5.0 mmol/L LAB CL(LOINC) CHLORIDE 109 98-109 mmol/L LAB CO2(LOINC) CARBON DIOXIDE 25 22-32 mmol/L LAB AGAP(LOINC) ANION GAP 5 5-15 mmol/L LAB BUN(LOINC) BLOOD UREA NITROGEN 18 5-23 mg/dL LAB CRET(LOINC) CREATININE 0.63 0.40-1.00 mg/dL Result Comment: METHOD TRACE ABLE TO IDMS STANDARD LAB GLU(LOINC) GLUCOSE 103 High 65-99 mg/dL LAB CA(LOINC) CALCIUM 9.7 8.5-10.5 mg/dL LAB TP(LOINC) TOTAL PROTEIN 5.6 Low 6.0-8.0 g/dL LAB ALB(LOINC) ALBUMIN 3.5 3.2-5.3 g/dL LAB ALK(LOINC) ALKALINE PHOSPHATASE 73 39-130 U/L LAB AST(LOINC) AST 50 High 0-41 U/L LAB ALT1(LOINC) ALT 56 High 0-31 U/L LAB TBIL(LOINC) BILIRUBIN,TOTAL 0.5 0.3-1.2 mg/d L LAB EGFR(LOINC) eGFR (CKD-EPI) NON-RACE DEPENDENT >90 >59 ml/min/1 .73sq.m Result Comment: Reported eGFR is based on the CKD-EPI 2020 equation that does not use a race coefficient. Performed By: #### RADHA, 5643 -2, CBCA #### [facility] ([id number]) [address] [place] [address] ETHANOL Collected: 03/12/2024 3:00 PM S tatus: COMPLETED Source: [facility] TYPE CODE TESTS RESULT OUT OF RANGE REFERENCE UNITS LAB ALCO(LOINC) ETHANOL <0.01 0.00-0.08 g/dL Result Comment: This report is intended for use in clinical monitoring or management of patients. Performed By: #### RADHA, 5643 -2, CBCA #### [facility] ([id number]) [address] [place] [address] CBC AND AUTO DIFF Collected: 03/12/2024 3:00 PM Status: COMPLETED Source: [facility] TYPE CODE TESTS RESULT OUT OF RANGE REFERENCE UNITS LAB WBC(LOINC) WBC COUNT 4.3 4.0-11.0 X10E9/L LAB RBC(LOINC) RBC COUNT 4.28 3.80-5.20 X10E12/L LAB HGB(LOINC) HEMOGLOBIN 13.1 11.7-15.5 g/dL LAB HCT(LOINC) HEMATOCRIT 38.7 35-47 % LAB MCV(LOINC) MCV 91 80-100 fL LAB MCH(LOINC) MCH 30.6 27-34 pg LAB MCHC(LOINC) MCHC 33.8 32-36 g/dL LAB RDW(LOINC) RDW 16.6 High 11.5-15.0 % LAB PLTC(LOINC) PLATELET COUNT 146 Low 150-450 X10E9 /L LAB MPV(LOINC) MPV 8.8 7-12 fL LAB NEUT(LOINC) % NEUTROPHILS 64.8 % LAB LYMP(LOINC) % LYMPHOCYTES 30.7 % LAB MONO(LOINC) % MONOCYTES 4.5 % LAB EOS(LOINC) % EOSINOPHILS 0.0 % LAB BASO(LOINC) % BASOPHILS 0.0 % LAB ANEUT(LOINC) ABSOLUTE NEUTROPHIL 2.8 1.5-6.6 X10E9/L LAB ALYMP(LOINC) ABSOLUTE LYMPHOCYTE 1.3 1.0-3.5 X10E9/L LAB AMONO(LOINC) ABSOLUTE MONOCYTE 0.2 0-0.9 X10E9/L LAB AEOS(LOINC) ABSOLUTE EOSINOPHIL 0.0 0.0-0.4 X10E9/L LAB ABASO(LOINC) ABSOLUTE BASOPHIL 0.0 0.0-0.2 X10E9/L Performed By: #### CMP, 5643 -2, CBCA #### [facility] ([id number]) [address] [place] [address], [place] [address] HEP C RNA DIAGNOSIS Collected: 02/21/2024 2:[address] atus: F Source: [facility] TYPE CODE TESTS RESULT OUT OF RANGE REFERENCE UNITS LAB HCVDXQN1 HCV RNA, Quantitation See Final Results . LAB HCVDXTESTINFO Test Information: Comment . Result Comment: The quantita tive range of this assay is 15 IU/mL to 100 million IU/mL. Performed at: [address] [id number] Survey Associate: Vernon Church MD, Phone: [phone] LAB HCVDXQN2 HCV RNA, Quant, Confirm [id number] . Result Comment: HCV RNA dete cted HCV RNA viral loads >/= 25 IU/mL indicate current HCV infection. LAB [id number] HCV RNA log10, Confirm 6.805 . Result Comment: Result Units : log10 IU/mL PERFORMED BY: [facility] [address] [place] [address] PATHOLOGIST [employer] WORKER PALMIRA GLEZ M.D. Performed By: #### HCV RNA D IAG, HBSAB, HAABT, HCV RX PCR, HBSAG, HBCAB #### [facility] , HEP C AB WRFX TO QNT PCR Collected: 02/21/2024 2:13 P M Status: F Source: [facility] TYPE CODE TESTS RESULT OUT OF RANGE REFERENCE UNITS LAB HCV AB. Hepatitis C Viru s Antibody Reactive Abnormal Alert Non Reactive LAB HCV QUANT Hepatitis C Quantitation [id number] . LAB HCV lOG10 HCV Log10 6.708 . Result Comment: Result Units : log10 IU/mL LAB TEST INFO Test Information: Comment . Result Comment: The quantita tive range of this assay is 15 IU/mL to 100 million IU/mL. LAB INTERP Interpretation Comment . Result Comment: Positive HCV antibody screen with the presence of HCV RNA is consistent with active infection. Performed at: [address] [id number] Survey Associate: Jeff Pitt PhD, Phone: [phone] Performed at: [address] [id number] Survey Associate: Vernon Church MD, Phone: [phone] Performed By: #### HCV RNA D IAG, HBSAB, HAABT, HCV RX PCR, HBSAG, HBCAB #### [facility] , HEPATITIS A ANTIBODY TOTAL Collected: 1 2:13 PM Status: F Source: [facility] TYPE CODE TESTS RESULT OUT OF RANGE REFERENCE UNITS LAB HAABT Hepatitis A Antibody Total Negative Negative Result Comment: Comment: The HAV total antibody assay detects both IgG and IgM but does not differentiate between them. A negative result suggests susceptibility to infection. A positive result could be due to vaccination, previously resolved infection or active infection. Testing for HAV IgM should be performed if active HAV infection is suspected. [facility] offers profiles that will automatically reflex positive HAV total antibody results to IgM (e.g., panel #[id number] HAV Antibody w/ Rfx). Performed at: [address] [id number] Survey Associate: Jeff Pitt PhD, Phone: [phone] Performed By: #### HCV RNA D IAG, HBSAB, HAABT, HCV RX PCR, HBSAG, HBCAB #### [facility] , HEPATITIS B SURFACE ANTIBODY Collected: 02/21/2024 2: 13 PM Status: F Source: [facility] TYPE CODE TESTS RESULT OUT OF RANGE REFERENCE UNITS LAB HBSAB Hepatitis B Surface Antibody Reactive . Result Comment: Non Reactive : Not immune to HBV infection. Equivocal: Unable to determine if anti-HBs is present at levels consistent with immunity. Reactive: Anti-HBs concentration detected at greater than 10 mIU/mL. Individual is considered to be immune to infection with HBV. Performed By: #### HCV RNA D IAG, HBSAB, HAABT, HCV RX PCR, HBSAG, HBCAB #### [facility] , HEPATITIS B CORE ANTIBODY Collected: 02/21/2024 2:13 PM Status: F Source: [facility] TYPE CODE TESTS RESULT OUT OF RANGE REFERENCE UNITS LAB HBCAB Hepatitis B Core Antibody Positive Abnormal Alert Negative Performed By: #### HCV RNA D IAG, HBSAB, HAABT, HCV RX PCR, HBSAG, HBCAB #### [facility] , HEPATITIS B SURFACE ANTIGEN Collected: 02/21/2024 2:1 3 PM Status: F Source: [facility] TYPE CODE TESTS RESULT OUT OF RANGE REFERENCE UNITS LAB HBSAG SCR HBsAg Screen Negative Negative Result Comment: PERFORMED BY : [address] [place] [address] PATHOLOGIST [employer] WORKER PALMIRA GLEZ M.D. Performed By: #### HCV RNA D IAG, HBSAB, HAABT, HCV RX PCR, HBSAG, HBCAB #### [facility] , PAP [id number] Collected: 02/09/2024 4:00 PM Status: F Source: [facility] TYPE CODE TESTS RESULT OUT OF RANGE REFERENCE UNITS LAB [address]7724-5([facility] ) CYTOLOGY REPORT:FIND:PT:C VX/VAG:DOC:CYTO STAIN Note Unknown Result Comment: TESTS RESULT FLAG UNITS REF RANGE LAB Clinician Provided Cytology Information Source.............Cervix No. of containers..01 ThinPrep Vial DIAGNOSIS: 01 NEGATIVE FOR INTRAEPITHELIAL LESION OR MALIGNANCY. Specimen adequacy: 01 Satisfactory for evaluation. Endocervical and/or squamous metaplastic cells (endocervical component) are present. Performed by: Colette Clark, Digital Strategy Director (ASCP) . 01 Note: Note 01 The [...] <-Panic Low,>-Panic High,A-Abnormal,AA-Critical Abnormal Performed at: [address] [address] [place], [place] [address]-2([facility] ) HUMAN [place] VIRUS 16+18+31+33+35+3 9+45+51+52+56+58 +59+66+68 DNA:PRTHR:PT:CVX :ORD:PROBE.AMP.S IG Negative Unknown Negative Result Comment: This nucleic acid amplification test detects fourteen high-risk HPV types (16,18,31,33,35,39,45,51,52,56,58,59,66,68) without differentiation. Performed at: [address] [id number] MD Tamika EidPerformed at: =G [address] [id number] MD Tamika Eid LAB CD:[id number] ([facility]) Gynecological Body Site CERVIX Normal LAB CD:[id number] (LOINC) Collection Technique BRUSH-SPATU LA Normal Performed By: #### [id number] #### [facility] [address] [place] [address] URINE NURSING Collected: 01/14/2024 6 :32 PM Status: COMPLETED Source: [facility] TYPE CODE TESTS RESULT OUT OF RANGE REFERENCE UNITS LAB NUCG(LOINC) URINE NURSING Negative (qualifier value) NEG Performed By: #### 2106-3 ## ## [facility] ([id number]) [address] [place] [address] URN MACROSCOPIC ERA Collected: 01/14/2024 6:30 PM Status: COMPLETED Source: [facility] TYPE CODE TESTS RESULT OUT OF RANGE REFERENCE UNITS LAB SPGRN(LOINC) SPECIFIC GRAVITY ERA >=1.030 1.003-1.035 LAB LESTN(LOINC) LEUKOCYTE ESTERASE ERA Negative (qualifier value) NEG LAB NITN(LOINC) NITRITE ERA Positive (qualifier value) Abnormal NEG LAB PHURN(LOINC) PH ERA 6.0 5.0-8.5 LAB PRURN(LOINC) PROTEIN ERA Negative (qualifier value) NEG mg/dL LAB GLURN(LOINC) GLUCOSE ERA Negative (qualifier value) NEG mg/dL LAB KETN(LOINC) KETONES ERA Negative (qualifier value) NEG mg/dL LAB UROBN(LOINC) UROBILINOGEN ERA 1.0 <1.1 eu/dL LAB BILEN(LOINC) BILIRUBIN ERA Negative (qualifier value) NEG LAB BLURN(LOINC) BLOOD/HGB ERA Negative (qualifier value) NEG Performed By: #### NUM #### [facility] ([id number]) [address] [place] [address] CBC AND AUTO DIFF Collected: 01/14/2024 5:08 PM Status: COMPLETED Source: [facility] TYPE CODE TESTS RESULT OUT OF RANGE REFERENCE UNITS LAB WBC(LOINC) WBC COUNT 2.9 Low 4.0-11.0 X10E9/L LAB RBC(LOINC) RBC COUNT 4.17 3.80-5.20 X10E12/L LAB HGB(LOINC) HEMOGLOBIN 12.6 11.7-15.5 g/dL LAB HCT(LOINC) HEMATOCRIT 37.3 35-47 % LAB MCV(LOINC) MCV 90 80-100 fL LAB MCH(LOINC) MCH 30.1 27-34 pg LAB MCHC(LOINC) MCHC 33.7 32-36 g/dL LAB RDW(LOINC) RDW 14.1 11.5-15.0 % LAB PLTC(LOINC) PLATELET COUNT 106 Low 150-450 X10E9 /L LAB MPV(LOINC) MPV 8.7 7-12 fL LAB NEUT(LOINC) % NEUTROPHILS 51.9 % LAB LYMP(LOINC) % LYMPHOCYTES 41.9 % LAB MONO(LOINC) % MONOCYTES 6.2 % LAB EOS(LOINC) % EOSINOPHILS 0.0 % LAB BASO(LOINC) % BASOPHILS 0.0 % LAB ANEUT(LOINC) ABSOLUTE NEUTROPHIL 1.5 1.5-6.6 X10E9/L LAB ALYMP(LOINC) ABSOLUTE LYMPHOCYTE 1.2 1.0-3.5 X10E9/L LAB AMONO(LOINC) ABSOLUTE MONOCYTE 0.2 0-0.9 X10E9/L LAB AEOS(LOINC) ABSOLUTE EOSINOPHIL 0.0 0.0-0.4 X10E9/L LAB ABASO(LOINC) ABSOLUTE BASOPHIL 0.0 0.0-0.2 X10E9/L Performed By: #### CBCA, CMP , 75350-3, 19044-6 #### [facility] ([id number]) [address] [place] [address], [place] [address] COMPREHENSIVE METABOLIC PANEL Collected: 2023 5:08 PM Status: COMPLETED Source: [facility] TYPE CODE TESTS RESULT OUT OF RANGE REFERENCE UNITS LAB NA(LOINC) SODIUM 140 134-146 mmol/L LAB K(LOINC) POTASSIUM 3.4 Low 3.5-5.0 mmol/L LAB CL(LOINC) CHLORIDE 112 High 98-109 mmol/L LAB CO2(LOINC) CARBON DIOXIDE 25 22-32 mmol/L LAB AGAP(LOINC) ANION GAP 3 Low 5-15 mmol/L LAB BUN(LOINC) BLOOD UREA NITROGEN 12 5-23 mg/dL LAB CRET(LOINC) CREATININE 0.60 0.40-1.00 mg/dL Result Comment: METHOD TRACE ABLE TO IDMS STANDARD LAB GLU(LOINC) GLUCOSE 94 65-99 mg/dL LAB CA(LOINC) CALCIUM 8.6 8.5-10.5 mg/dL LAB TP(LOINC) TOTAL PROTEIN 5.1 Low 6.0-8.0 g/dL LAB ALB(LOINC) ALBUMIN 3.2 3.2-5.3 g/dL LAB ALK(LOINC) ALKALINE PHOSPHATASE 72 39-130 U/L LAB AST(LOINC) AST 52 High 0-41 U/L LAB ALT1(LOINC) ALT 64 High 0-31 U/L LAB TBIL(LOINC) BILIRUBIN,TOTAL 0.5 0.3-1.2 mg/d L LAB EGFR(LOINC) eGFR (CKD-EPI) NON-RACE DEPENDENT >90 >59 ml/min/1 .73sq.m Result Comment: Reported eGFR is based on the CKD-EPI 2020 equation that does not use a race coefficient. Performed By: #### RADHA BETTENCOURT , 98941-2, 97606-3 #### [facility] ([id number]) [address] [place] [address] MAGNESIUM Collected: 01/14/2024 5:08 PM S tatus: COMPLETED Source: [facility] TYPE CODE TESTS RESULT OUT OF RANGE REFERENCE UNITS LAB MG(LOINC) MAGNESIUM 1.8 1.8-2.6 mg/dL Performed By: #### RADHA BETTENCOURT , 05195-9, 19747-2 #### [facility] ([id number]) [address] [place] [address] TROPONIN I, HIGH SENSITIVITY Collected: 5:08 PM Status: COMPLETED Source: [facility] TYPE CODE TESTS RESULT OUT OF RANGE REFERENCE UNITS LAB TNIHS(LOINC) TROPONIN I, HIGH SENSITIVITY 4 <16 ng/L Performed By: #### RADHA BETTENCOURT , 25948-5, 38886-8 #### [facility] ([id number]) [address] [facility], [place] [address] ALLERGIES DATE TYPE / CODE NAME / CODE REACTION SEVERITY SOURCE 07/21/2024 Drug Allergy/49886789 2(SNOMED CT) No Known Allergies/[id number] (RXNORM) Unknown [facility] /[id number](SNO MED CT) No Known Allergies [facility] Drug Class/913302893( SNOMED CT) NO KNOWN ALLERGIES [facility] ENCOUNTERS ADMIT/DISCHARGE ACCOUNT NUMBER ADMITTING ENCOUNTER CLASS LOCATION SOURCE 09/02/2024/09/03/19 [id number] Emergency Building:PFM _EDRoom: 13Bed: 13 [facility] 08/03/2024/08/04/19 [id number] Emergency Building:PFM _EDRoom: 2Bed: 02 [facility] 07/21/2024/07/22/19 25 [id number] [facility]/18/2024/07/19/19 [id number] Emergency Building:PFM _EDRoom: 2Bed: 02 [facility] 07/02/2024/07/03/[id number] 06/27/2024/06/27/19 [id number] Emergency Building:PFM _EDRoom: H1Bed: H1 [facility] 06/26/2024/06/26/19 25 [id number] Shelby Dumont [facility] 06/20/2024/06/20/[id number] [facility] 05/03/2024/05/03/[id number] 04/19/2024/04/19/20 24 [id number] Asa, Imad [facility] 03/12/2024/03/12/20 [id number] Emergency Building:PFM _EDRoom: 2Bed: 02 [facility] 02/21/2024/02/21/[id number] [facility], Imad [facility] 02/09/2024/02/09/20 24 [id number] [facility] [facility] 02/09/2024/02/09/20 24 [id number] [facility]ev [facility] 01/14/2024/01/14/20 [id number] Emergency Building:PFM _EDRoom: 10Bed: 10 [facility] 10/24/2023 [id number] Ambulatory Ana MSonia ding: Ana M [facility] 10/23/2023/10/23/19 [id number] Emergency Building:PFM _ED [facility] FUNCTIONAL STATUS No Functional Status Records Found EQUIPMENT No Equipment Records Found PAYERS ENCOUNTER GUARANTOR PAYER SUBSCRIBER SOURCE 09/02/2024 SANGEETA PATEL DANEB: [place] [id number]: (HP) Primary Insurance:[place] MEDICAIDPolicy Number: [id number] Date:2019-07-01 SANGEETA PATEL DANEB: [id number] [place] [address]Tba: () [facility] 08/03/2024 SANGEETA PATEL DANEB: [place] [address]Oru: (HP) Primary Insurance:[place] MEDICAIDPolicy Number: [id number] Date:2019-07-01 SANGEETA NICHOLSONDOB: [id number] [place] [address]Bro: (WP) [facility] 07/21/2024 [place] [address]Twd: (HP) Primary Insurance:[place] MedicaidPolicy Number: [id number] Date:1304-57-93[address] [address]PR: Sangeeta NicholsonDOB: [id number] [place] [address]Cqa: (HP) [facility] 07/21/2024 Secondary Insurance:Self PayPolicy Number: Effective Date:2024-07-21 [facility] 07/18/2024 SANGEETA NICHOLSONDOB: [place] [address]Cok: (HP) Primary Insurance:[place] MEDICAIDPolicy Number: [id number] Date:2019-07-01 SANGEETA NICHOLSONDOB: [id number] [place] [address]Ifn: (WP) [facility] 07/02/2024 Sangeeta Coxhs[address] [place] [address]Itf: (HP) Primary Insurance:[place] MedicaidPolicy Number: [id number] Date:8341-08-92HO [address]Att[place] [address]QO: Sangeeta NicholsonDOB: [id number] [place] [address]Yle: (HP) [facility] 07/02/2024 Secondary Insurance:Self PayPolicy Number: Effective Date:2024-06-27 NOT GIVENUNK [facility] 06/27/2024 SANGEETA NICHOLSONDOB: [place] [address]Xhs: (HP) Primary Insurance:[place] MEDICAIDPolicy Number: [id number] Date:2019-07-01 SANGEETA NICHOLSONDOB: [id number] [place] [address]Gvi: () [facility] 06/26/2024 Sangeeta [address] [place] [address]Eko: (HP) Primary Insurance:Self PayPolicy Number: Effective Date:2024-06-26 NOT GIVENUNK [facility] 06/20/2024 Sangeeta [address] [place] [address]Uyk: (HP) Primary Insurance:[place] MedicaidPolicy Number: [id number] Date:2965-65-15ON [address]Att[place] [address]DH: Sangeeta NicholsonDOB: [id number] [place] [address]Mdf: (HP) [facility] 06/20/2024 Secondary Insurance:Self PayPolicy Number: Effective Date:2024-06-20 [facility] 05/03/2024 Sangeeta Nicholson[address] [place], [place] [address]Aiv: (HP) Primary Insurance:[place] MedicaidPolicy Number: [id number] Date:6225-30-59QU [address]Att[place] [address]ZV: Sangeeta NicholsonDOB: [id number] [place], [place] [address]Mui: (HP) [facility] 05/03/2024 Secondary Insurance:Self PayPolicy Number: Effective Date:2024-04-17 NOT GIVENUNK [facility] 04/19/2024 Sangeeta Nich[address] [place], [place] [address]Qtk: (HP) Primary Insurance:[place] MedicaidPolicy Number: [id number] Date:0434-89-93HP [address]Att[place] [address]SG: Sangeeta NicholsonDOB: [id number] [place], [place] [address]Kvn: () [facility] 04/19/2024 Secondary Insurance:Self PayPolicy Number: Effective Date:2024-04-17 NOT GIVENUNK [facility] 03/12/2024 SANGEETA NICHOLSONDOB: [place] [address]Eku: (HP) Primary Insurance:[place] MEDICAIDPolicy Number: [id number] Date:2019-07-01 SANGEETA PATEL BROOKEBRIANNADOB: [id number] [place], [place] [address]Fdn: (HP) () [facility] 02/21/2024 Sangeeta [address] [place], [place] [address]Qrw: (HP) Primary Insurance:[place] MedicaidPolicy Number: [id number] Date:2877-71-91[address]Att[place] [address]SZ: Sangeeta NicholsonDOB: [id number] [place], [place] [address]Kbo: (HP) [facility] 02/21/2024 Secondary Insurance:Self PayPolicy Number: Effective Date:2024-02-21 NOT GIVENUNK [facility] 02/09/2024 SANGEETA COXHSDOB: [facility]: (HP) Primary Insurance:[facility] CenterPolicy Number: [id number] Date:2009-28-55VI [address] [address]HG: SANGEETA GLOVER [facility] 02/09/2024 SANGEETA COXHSDOB: [facility]el: () Primary Insurance:[facility]ITALPolicy Number: [id number] Date:2023-05-02 SANGEETA GLOVER [facility] 02/09/2024 Secondary Insurance:[facility] CenterPolicy Number: [id number] Date:7701-41-53MP [address] [address]GF: SANGEETA GLOVER [facility] 01/14/2024 [id number] NDOB: [place] [address] Primary Insurance:WORKER'S [id number] P ONLYPolicy Number: [id number] Date:2024-01-14 SANGEETA PATEL FUCHSDOB: [id number] [place] [address]Uvk: () [facility] 01/14/2024 Secondary Insurance:[place] MEDICAIDPolicy Number: [id number] Date:2019-07-01 SANGEETA PATEL SHAMEKADOB: [id number] [place], [place] [address]Ejc: (HP) (WP) [facility] 10/24/2023 SANGEETA Martita VELAB: [facility]: (HP) Primary Insurance:[facility] Number: [id number] Date:[id number] [address]DY: SANGEETA Anders BROOKEBRIANNAEWELINA [facility] 10/23/2023 SANGEETA AMANDA VELAB: [place], [place] [address]Gyf: () Primary Insurance:[place] MEDICAIDPolicy Number: [id number] Date:2019-07-01 SANGEETA GARCIAWILLIE VELAB: [id number] [place], [place] [address]Zqy: (HP) (WP) [facility] SOCIAL HISTORY No Social History Records Found FAMILY HISTORY No Family History Records Found ADVANCE DIRECTIVES No Advanced Directives Records Found INFORMATION SOURCE DATE CREATED AUTHOR AUTHOR'Yaniv SOARES 09/23/2024 LES
--- OUTSIDE RECORDS SUMMARY | 2024-09-11 09:15 | XMS_ITS ---
Author Organization [facility] [place] Address [address] [place] [address] Care Team Providers Care Irrigation Supervisor Name Role Phone Minerva Stringer Primary Care Provider Argentina Atkins Unavailable [phone] REASON FOR VISIT MD Encounters Encounter Location Date Provider Diagnosis [facility] [address] [place] [address] 09/11/2024 Argentina Atkins Plan Of Treatment Next Appt Details Provider Name:Argentina Atkins , 11/13/2024 10:00:00 AM, [address] [place], [address], Provider Name:Minerva leon, 12/10/2024 02:00:00 PM, [address] [place], [address], Progress Notes * BOROKELilian REEDsie NDOB:[birth year] (34 yo F)Acc No.[id number]:09/11/2024 UNLOCKED PROGRESS NOTE Progress Notes Patient: Pauline WATERMAN Provider: May Atkins M.D. :1990 A ge:34 Y S ex:Female Date:09/11/2024 Address:[address] [place], [place] [id number] Pcp:Minerva Stringer Subjective: * Chief Complaints: * 1 . MD. * Medical History: Objective: * Vitals: Assessment: Plan: * Treatment: * * Electronic signature of Rajesh Atkins MD, [id number] on 09/23/2024 at 01:37 PM EDT Sign off status: Pending Visit Status: Ethan WARD (Voice) * Provider: May Atkins M.D. Date: 0 09/11/2024 Generated for Tasiai wilfredo/Monica/eTransmitting on: 0 09/23/2024 01:37 PM EDT
--- OUTSIDE RECORDS SUMMARY | 2024-09-23 13:37 | XMS_ITS | Clinical Summary ---
Author Organization [facility] tem Address [id number] [address] [place] [address] Care Team Providers Care Surgery Nurse Name Role Phone Bahman Mejia MD Primary Care Provider [phone] Allergies No known active allergies Medications * This document contains information received from the source organization and may not represent a complete record from that organization. naloxone (NARCAN) 4 mg/actuation spray,non-aeros ol nasal spray Administer 1 spray (4 mg total) into each nostril as needed for opioid reversal. Active Additional Information Patient not taking.Reported on 10/19/2022 traZODone (DESYREL) 100 mg tablet Take 1 tablet (100 mg total) by mouth nightly. Active gabapentin (NEURONTIN) 300 mg capsule Take 1 capsule (300 mg total) by mouth in the morning. Active busPIRone (BUSPAR) 5 mg tablet Take by mouth 3 (three) times a day. 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 Cannabis dependence 05/06/2016 Heroin dependence 05/06/2016 Tobacco abuse 05/06/2016 Resolved Problems Problem Noted Date Diagnosed Date Resolved Date dep 05/06/2016 05/06/2016 Depression 05/05/2016 05/06/2016 Encounters Date Type Department Care Team Description 09/02/2024 5:47 PM EDT - 09/02/2024 8:01 PM EDT Emergency [facility] - Emergency [address] [place] [address] Torrie Forbes MD Syncope, unspecified syncope type (Primary Dx) Discharge Disposition: Home 09/02/2024 Travel 08/03/2024 9:18 AM EDT - 08/03/2024 9:50 AM EDT Emergency [facility] Emergency [address] [place] [address] Tai Figueredo MD Otalgia of both ears (Primary Dx) Discharge Disposition: Home 08/03/2024 Travel 07/18/2024 10:30 AM EDT - 07/18/2024 12:02 PM EDT Emergency [facility] Emergency [address] [place] [address] Paul Cantu MD Abscess of abdominal wall (Primary Dx) Discharge Disposition: Home 07/18/2024 Travel 06/27/2024 10:50 AM EST - 06/27/2024 12:36 PM EST Emergency [facility] - Emergency [address] [place] [address] Tai Figueredo MD Syncope, unspecified syncope type (Primary Dx) Discharge Disposition: Home 06/27/2024 Travel from Last 3 Months Immunizations Immunization Administration Dates Next Due Tdap 04/22/2018 Family History Medical History Relation Name Comments Diabetes Maternal Grandmother Seizures Maternal Grandmother Cancer Paternal Grandfather Blood Clots Paternal Grandmother Cancer Paternal Grandmother Mental illness Neg Hx Relation Name Status Comments Maternal Grandmother Paternal Grandfather Paternal Grandmother Social History Tobacco Use Types Packs/Day Years Used Date Smoking Tobacco: Every Day Cigarettes 0.5 15 Smokeless Tobacco: Never Tobacco Cessation:Ready to Q uit: Not Asked; Counseling Given: Not Answered Alcohol Use Standard Drinks/Week Comments No 0 (1 standard drink = 0.6 oz pur e alcohol) Childcare Answer Date Recorded Childcare Unknown 10/11/2018 Employment Answer Date Recorded Employment Unknown 10/11/2018 Hunger Screening Answer Date Recorded Within the past 12 months we worried whether our food would run out before we got money to buy more. Never True 08/03/2024 Within the past 12 months th e food we bought just didn't last and we didn't have money to get more. Never True 08/03/2024 Purpose - Life Answer Date Recorded Purpose and direction in life Unknown Comments No Sex and Gender Information Value Date Recorded Sex Assigned at Not on file Legal Sex Female 12:10 PM EDT Gender Identity Not on file Sexual Orientation Not on file Last Filed Vital Signs Vital Sign Reading Time Taken Comments Blood Pressure 123/74 09/02/2024 8:00 PM EDT Pulse 75 09/02/2024 8:00 PM EDT Temperature 36.5 C (97.7 F) 09/02/2024 5:58 PM EDT Respiratory Rate 18 09/02/2024 8:00 PM EDT Oxygen Saturation 98% 09/02/2024 8:00 PM EDT Inhaled Oxygen Concentration - - Weight 72.6 kg (160 lb) 07/18/2024 10:34 AM EDT Height 160 cm (5' 3 ) 07/18/2024 10:34 AM EDT Body Mass Index 28.34 07/18/2024 10:34 AM EDT Plan of Treatment Health Maintenance Due Date Last Done Comments Tobacco Counseling 1992 Depression Screening 2004 Adult BMI Follow Up Plan 01/06/2010 Pap Smear 01/06/2013 COVID-19 Vaccine (2023-2 5 season) 2024 08/19/2021, 07/15/2021 Influenza Vaccine 12/31/2024 05/14/2012 Adult BMI Screening 07/18/2025 07/18/2024 Tobacco Screening 07/18/2025 07/18/2024 DTaP,Tdap and Td Vaccines (9 - Td or Tdap) 11/09/2029 11/10/2019, 04/22/2018, 06/26/2014, Additional history exists Medical Devices Not on file Procedures Procedure Name Priority Date/Time Associated Diagnosis Comments TROP I, HIGH SENSITIVITY 1 HOUR STAT 09/02/2024 7:16 PM EDT XR WRIST LT MIN 3 VWS STAT 09/02/2024 6:32 PM EDT POCT , URINE (NUCG) Routine 09/02/2024 6:12 PM EDT POCT NURSING URINE MACROSCOPIC UA Routine 09/02/2024 6:11 PM EDT TROPONIN I, HIGH SENSITIVITY 0 HOUR STAT 09/02/2024 6:05 PM EDT TROPONIN I, HIGH SENSITIVITY 0 HOUR STAT 09/02/2024 6:05 PM EDT MAGNESIUM STAT 09/02/2024 6:05 PM EDT D-DIMER STAT 09/02/2024 6:05 PM EDT COMPREHENSIVE METABOLIC PANEL STAT 09/02/2024 6:05 PM EDT CBC WITH AUTO DIFFERENTIAL STAT 09/02/2024 6:05 PM EDT ER EXTRA URINE STAT 09/02/2024 6:04 PM EDT ECG 12-LEAD STAT 09/02/2024 5:50 PM EDT PM ED INCISION AND DRAINAGE Routine 07/18/2024 10:51 AM EDT POCT , URINE (NUCG) Routine 06/27/2024 12:19 PM EST POCT NURSING URINE MACROSCOPIC UA Routine 06/27/2024 12:10 PM EST TROP I, HIGH SENSITIVITY 1 HOUR STAT 06/27/2024 11:58 AM EST TROPONIN I, HIGH SENSITIVITY STAT 06/27/2024 10:54 AM EST COMPREHENSIVE METABOLIC PANEL STAT 06/27/2024 10:54 AM EST CBC WITH AUTO DIFFERENTIAL STAT 06/27/2024 10:54 AM EST ECG 12-LEAD STAT 06/27/2024 10:29 AM EST from Last 3 Months Results * Troponin I, High Sensitivity 1 Hour (09/02/2024 7:16 PM EDT) Only the most recent of2 resultswithin the time period is included. TROPONIN I, HIGH SENSITIVITY 5 <16 ng/L 09/02/2024 7:50 PM EDT [facility] Blood Venous blood / Unknown 09/02/2024 7:16 PM EDT 09/02/2024 7:21 PM EDT us Clara Lubin PATTERN VAULT CLERK-BELLHOP CAPTAIN LAB BLOOD ORDERABLES Final Result [facility] [address] [place] [address], [place] * X-ray wrist left minimum 3 views (09/02/2024 6:32 PM EDT) Anatomical Region Laterality Modality MSK, Upper Extremities, Wrist Left Co mputed Radiography 09/02/2024 6:56 PM EDT Narrative 09/02/2024 6:56 PM EDT XR WRIST LT MIN 3 VWS HISTORY: Fall with wrist pain. COMPARISON: None. IMPRESSION: 1. No acute fracture or dislocation. If there is concern for occult scaphoid fracture, recommend repeat radiographs in 7-10 days or evaluation with cross-sectional imaging. Finalized by Jaden Rogers MD on 09/02/2024 6:56 PM Procedure Note Jaden Rogers MD - 09/02/2024 XR WRIST LT MIN 3 VWS HISTORY: Fall with wrist pain. COMPARISON: None. IMPRESSION: 1. No acute fracture or dislocation. If there is concern for occult scaphoid fracture, recommend repeatradiographs in 7-10 days or evaluation with cross-sectional imaging. Finalized by Jaden Rogers MD on 09/02/2024 6:56 PM us Torrie Forbes MD IMG DIAGNOSTIC IMAGING ORD ERABLES Final Result * POCT , urine (09/02/2024 6:12 PM EDT) Only the most recent of2 resultswithin the time period is included. POC Urine Negative Negative 09/02/2024 6:13 PM EDT [facility] Urine 09/02/2024 6:12 PM EDT 09/02/2024 6:13 PM EDT us Torrie Forbes MD POINT OF CARE TEST ORDERAB LES Final Result [facility] [address] [place] [address], * (ABNORMAL) POCT Nursing Urine Macroscopic UA (09/02/2024 6:11 PM EDT) Only the most recent of2 resultswithin the time period is included. POC Urine Specific [place] >=1.030(A) 1.010, 1.015, 1.020, 1.025 09/02/2024 6:07 PM EDT [facility] POC Urine Leukocyte Esterase Negative Negative 09/02/2024 6:07 PM EDT [facility] POC Urine Nitrite Negative Negative 09/02/2024 6:07 PM EDT [facility] POC Urine pH 5.5 5.0, 6.0, 6.5, 7.0, 7.5, 8.0, 8.5, 5.5 09/02/2024 6:07 PM EDT [facility] POC Urine Protein Negative Negative 09/02/2024 6:07 PM EDT [facility] POC Urine Glucose Negative Negative 09/02/2024 6:07 PM EDT [facility] POC Urine Ketones Negative Negative 09/02/2024 6:07 PM EDT [facility] POC Urine Urobilinogen 1.0 E.U./dL 0.2 E.U./dL, 1.0 E.U./dL 09/02/2024 6:07 PM EDT [facility] POC Urine Bilirubin Negative Negative 09/02/2024 6:07 PM EDT [facility] POC Urine Blood/HGB Negative Negative 09/02/2024 6:07 PM EDT [facility] Urine 09/02/2024 6:11 PM EDT 09/02/2024 6:07 PM EDT us Torrie Forbes MD POINT OF CARE TEST ORDERAB LES Final Result Performing Organization Address City/[facility]/ZIP Co de Phone Number [address] [place] [address], [place] * Troponin I, High Sensitivity 0 Hour (09/02/2024 6:05 PM EDT) TROPONIN I, HIGH SENSITIVITY 5 <16 ng/L 09/02/2024 6:45 PM EDT [facility] Blood Venous blood / Unknown 09/02/2024 6:05 PM EDT 09/02/2024 6:16 PM EDT us Clara Lubin APRN-[place] LAB BLOOD ORDERABLES Final Result Performing Organization Address City/[facility]/ZIP Co de Phone Number [address] [place] [address], [place] * (ABNORMAL) CBC auto differential (09/02/2024 6:05 PM EDT) Only the most recent of2 resultswithin the time period is included. WBC 4.4 4 - 11 x10E9/L 09/02/2024 6:23 PM EDT [facility] RBC Count 4.45 3.8 - 5.2 X10E12/L 09/02/2024 6:23 PM EDT [facility] Hemoglobin 13.2 11.7 - 15.5 g/dL 09/02/2024 6:23 PM EDT [facility] Hematocrit 39.3 35 - 47 % 09/02/2024 6:23 PM EDT [facility] MCV 88 80 - 100 fL 09/02/2024 6:23 PM EDT [facility] MCH 29.7 27 - 34 pg 09/02/2024 6:23 PM EDT [facility] MCHC 33.7 32 - 36 g/dL 09/02/2024 6:23 PM EDT [facility] RDW 17.4(H) 11.5 - 15 % 09/02/2024 6:23 PM EDT [facility] Platelet Count 140(L) 150 - 450 X10E9/L 09/02/2024 6:23 PM EDT [facility] MPV 8.3 7 - 12 fL 09/02/2024 6:23 PM EDT [facility] Neutrophils Relative 63.0 % 09/02/2024 6:23 PM EDT [facility] Lymphocytes Relative 31.8 % 09/02/2024 6:23 PM EDT [facility] Monocytes Relative 5.2 % 09/02/2024 6:23 PM EDT [facility] Eosinophils Relative 0.0 % 09/02/2024 6:23 PM EDT [facility] Basophils Relative 0.0 % 09/02/2024 6:23 PM EDT [facility] Neutrophils Absolute (A) 2.8 10*3/uL 09/02/2024 6:23 PM EDT [facility] Lymphocytes Absolute 1.4 10*3/uL 09/02/2024 6:23 PM EDT [facility] Monocytes Absolute 0.2 10*3/uL 09/02/2024 6:23 PM EDT [facility] Eosinophils Absolute 0.0 10*3/uL 09/02/2024 6:23 PM EDT [facility] Basophils Absolute 0.0 10*3/uL 09/02/2024 6:23 PM EDT [facility] Differential Type AUTOMATED DIFFERENTIAL 09/02/2024 6:23 PM EDT [facility] Blood Venous blood / Unknown 09/02/2024 6:05 PM EDT 09/02/2024 6:16 PM EDT us Clara Lubin PATTERN VAULT CLERK-BELLHOP CAPTAIN LAB BLOOD ORDERABLES Final Result Performing Organization Address [facility] Co de Phone Number [address] [place] [address], [place] * D-Dimer (09/02/2024 6:05 PM EDT) Pathologist [facility] D DIMER <150 1 - 255 ug/mL 09/02/2024 6:30 PM EDT [facility] Comment:Results <255 ng/mL D DU: The presensence of a VTE can safely be excluded with a negative D-Dimer result and Wells score. A negative result doesn't exclude the possibility of DIC. The test should be repeated along with other diagnostic tests if the patient's symptoms persist or worsen. Blood Venous blood / Unknown 09/02/2024 6:05 PM EDT 09/02/2024 6:16 PM EDT us Clara Lubin PATTERN VAULT CLERK-BELLHOP CAPTAIN LAB BLOOD ORDERABLES Final Result Performing Organization Address [facility] Phone Number [address] [place] [address], [place] * Magnesium (09/02/2024 6:05 PM EDT) Pathologist [facility] MAGNESIUM 2.2 1.8 - 2.6 mg/dL 09/02/2024 6:38 PM EDT [facility] Blood Venous blood / Unknown 09/02/2024 6:05 PM EDT 09/02/2024 6:16 PM EDT us Clara Lubin PATTERN VAULT CLERK-BELLHOP CAPTAIN LAB BLOOD ORDERABLES Final Result Performing Organization Address [facility] Co de Phone Number [address] [place] [address], [place] * (ABNORMAL) Comprehensive metabolic panel (09/02/2024 6:05 PM EDT) Only the most recent of2 resultswithin the time period is included. SODIUM 137 134 - 146 mmol/L 09/02/2024 6:38 PM EDT [facility] POTASSIUM 3.2(L) 3.5 - 5.0 mmol/L 09/02/2024 6:38 PM EDT [facility] CHLORIDE 105 98 - 109 mmol/L 09/02/2024 6:38 PM EDT [facility] CARBON DIOXIDE 27 22 - 32 mmol/L 09/02/2024 6:38 PM EDT [facility] ANION GAP 5 5 - 15 mmol/L 09/02/2024 6:38 PM EDT [facility] BLOOD UREA NITROGEN 13 5 - 23 mg/dL 09/02/2024 6:38 PM EDT [facility] CREATININE 0.77 0.40 - 1.00 mg/dL 09/02/2024 6:38 PM EDT [facility] Comment:METHOD TRACEABLE TO IDMS STANDARD GLUCOSE 120(H) 65 - 99 mg/dL 09/02/2024 6:38 PM EDT [facility] CALCIUM 9.9 8.5 - 10.5 mg/dL 09/02/2024 6:38 PM EDT [facility] TOTAL PROTEIN 7.0 6.0 - 8.0 g/dL 09/02/2024 6:38 PM EDT [facility] ALBUMIN 4.2 3.2 - 5.3 g/dL 09/02/2024 6:38 PM EDT [facility] ALKALINE PHOSPHATASE 70 39 - 130 U/L 09/02/2024 6:38 PM EDT [facility] AST 25 <=41 U/L 09/02/2024 6:38 PM EDT [facility] ALT 19 <=31 U/L 09/02/2024 6:38 PM EDT [facility] BILIRUBIN,TOTAL 0.6 0.3 - 1.2 mg/dL 09/02/2024 6:38 PM EDT [facility] EGFR Non-Race Dependent >90 >=60 ml/min/1.7 3sq.m 09/02/2024 6:38 PM EDT [facility] Comment: eGFR not reported due to non-numeric value for Creatinine. Reported eGFR is based on the CKD-EPI 2020 equation that does not use a race coefficient. Blood Venous blood / Unknown 09/02/2024 6:05 PM EDT 09/02/2024 6:16 PM EDT Clara Lubin APRN-BELLHOP CAPTAIN LAB BLOOD ORDERABLES Final Result Performing Organization Address [facility] de Phone Number [address] [place] [address], [place] * Extra Urine (09/02/2024 6:04 PM EDT) Extra Tube Auto Resulted 09/02/2024 8:01 PM EDT [facility] Urine 09/02/2024 6:04 PM EDT 09/02/2024 6:28 PM EDT us Clara Lubin PATTERN VAULT CLERK-BELLHOP CAPTAIN URINE ORDERABLES Final Res ult Performing Organization Address [facility] de Phone Number [address] [place] [address], [place] * ECG 12 lead (09/02/2024 5:50 PM EDT) Only the most recent of2 resultswithin the time period is included. 09/02/2024 5:50 PM EDT us Clara Lubin PATTERN VAULT CLERK-BELLHOP CAPTAIN ECG ORDERABLES Final Resu lt Performing Organization Address [facility] Co de Phone Number [id number] * Incision and Drainage (07/18/2024 10:51 AM EDT) Narrative Paul Cantu MD - 07/18/2024 10:51 AM EDT Paul Cantu MD 07/19/2024 6:54 AM Incision and Drainage Date/Time: 07/18/2024 10:51 AM Performed by: Paul Canut MD Authorized by: Paul Cantu MD Consent: Consent obtained: Verbal Consent given by: Patient Risks, benefits, and alternatives were discussed: yes Risks discussed: Bleeding, incomplete drainage and pain Alternatives discussed: No treatment [place] protocol: Procedure explained and questions answered to patient or proxy's satisfaction: yes Relevant documents present and verified: yes Test results available : no Imaging studies available: no Required blood products, implants, devices, and special equipment available: yes Site/side marked: yes Immediately prior to procedure, a time out was called: yes Patient identity confirmed: Verbally with patient and provided demographic data Location: Type: Fluid collection Size: 1 cm Location: Trunk Trunk location: Abdomen Pre-procedure details: Skin preparation: Chlorhexidine with alcohol Sedation: Sedation type: None Anesthesia: Anesthesia method: Local infiltration Local anesthetic: Lidocaine 1% w/o epi Procedure type: Complexity: Simple Procedure details: Ultrasound guidance: yes Needle aspiration: yes Needle size: 18 G Incision types: Single straight Incision depth: Dermal Drainage: Bloody and purulent Drainage amount: Scant Wound treatment: Wound left open Packing materials: None Post-procedure details: Procedure completion: Tolerated well, no immediate complications Paul Cantu MD PROCEDURE/MINOR SURGICAL ORDERABLES Final Result * Troponin I, High Sensitivity (06/27/2024 10:54 AM EST) Troponin I, High Sensitivity 5 <16 ng/L 06/27/2024 11:34 AM EST [facility] Blood Serum / Unknown 06/27/2024 1 0:54 AM EST 06/27/2024 10:57 AM EST us Tai Figueredo MD LAB BLOOD ORDERABLES Final Resu lt [facility] [address] [place] [address], [place] [address] from Last 3 Months Insurance [place] [employer] [facility] [employer] [employer] Advance Directives * Full Code (Latest Code Status on File) Date Activated Date Inactivated Comments 04/20/2018 12:12 PM 04/23/2018 7:05 PM * Full Code Date Activated Date Inactivated Comments 05/05/2016 10:19 PM 05/11/2016 2:24 PM Care Teams Surgery Nurse Relationship Specialty Start Date End Date Bahman Mejia MD [address] [place] [address] PCP - General Family Medicine 03/12/24
--- OUTSIDE RECORDS SUMMARY | 2024-09-23 13:37 | XMS_ITS | Encounter Summary ---
Author Organization [facility] Address [address] [place], [place] [id number] Care Team Providers Care Customer Support Associate Name Role Phone Karuna Vasquez MD Primary Care Provider [phone] Source Comments In the event this information is protected by the Federal Confidentiality of Alcohol and Drug AbusePatient Records regulations: The Federal rules restrict any use of the information to criminally investigate or prosecute any alcohol or drug abuse patient.[facility] Encounter Details Date Type Department Care Team (Latest Contact Info) Description 10/06/2004 Prob Sum Review Provider, Cc Social History Tobacco Use Types Packs/Day Years Used Date Smoking Tobacco: Never Assessed Comments Unknown Sex and Gender Information Value Date Recorded Sex Assigned at Not on file Legal Sex Female 7:29 AM EST Gender Identity Not on file Sexual Orientation Not on file documented as of this encounter Plan of Treatment Not on file documented as of this encounter Visit Diagnoses Not on filedocumented in this encounter Care Teams Customer Support Associate Relationship Specialty Start Date End Date Karuna Vasquez MD [address] [facility] [address] [place] [address] PCP - General 08/28/04 documented as of this encounter
--- OUTSIDE RECORDS SUMMARY | 2024-09-23 13:37 | XMS_ITS | Clinical Summary ---
Demographics Address [address] [place] [address] Home Phone Preferred Language Kuwaiti Marital Status Single Protestant Affiliation Unknown Race White Ethnic Group Not or Lati no Author Organization [facility] Address [address] [place] [address] Care Team Providers Care Plastics Technician Name Role Phone Unavailable Primary Care Provider Unavailabl e Allergies No known active allergies Medications nitrofurantoin, macrocrystal-mon ohydrate, (MACROBID) 100 MG capsule Take 100 mg by mouth 2 times daily Active Nbdkflnx-Ekp-Ox- FA ( VITAMINS PO) Take by mouth Active clonazePAM (KLONOPIN) 0.5 MG tablet Take 0.5 mg by mouth 2 times daily as needed (Patient unsure of exact dosage).. Active Active Problems Problem Noted Date Diagnosed Date Uterine contractions during 03/20/2018 Multiple gestation 03/06/2018 Seizure disorder 08/15/2013 Family History Medical History Relation Name Comments Diabetes Maternal Grandmother Cancer Paternal Grandfather Cancer Paternal Grandmother Relation Name Status Comments Maternal Grandmother Paternal Grandfather Paternal Grandmother Social History Tobacco Use Types Packs/Day Years Used Date Smoking Tobacco: Every Day Cigarettes Smokeless Tobacco: Never Alcohol Use Standard Drinks/Week Comments No 0 (1 standard drink = 0.6 oz pur e alcohol) Comments No Sex and Gender Information Value Date Recorded Sex Assigned at Not on file Legal Sex Female 11:02 AM EST Gender Identity Not on file Sexual Orientation Not on file Last Filed Vital Signs Vital Sign Reading Time Taken Comments Blood Pressure 108/68 03/20/2018 10:37 PM EST Pulse 65 03/20/2018 10:37 PM EST Temperature 36.7 C (98 F) 03/20/2018 10:37 PM EST Respiratory Rate 16 03/20/2018 10:37 PM EST Oxygen Saturation 98% 10/13/2017 3:03 PM EDT Inhaled Oxygen Concentration - - Weight 78.9 kg (174 lb) 10/13/2017 3:03 PM EDT Height 160 cm (5' 3 ) 10/13/2017 3:03 PM EDT Body Mass Index 30.82 10/13/2017 3:03 PM EDT Plan of Treatment Health Maintenance Due Date Last Done Comments Depression Screen 2004 Varicella vaccine (1 of 2 - 13+ 2-dose series) 01/06/2005 DTaP/Tdap/Td vaccine (1 - Tdap) 01/06/2011 Hepatitis B vaccine (1 of 3 - 19+ 3-dose series) 01/06/2011 Pneumococcal 0-49 years Vaccine (1 of 2 - PCV) 01/06/2011 Pap smear 01/06/2013 Cervical cancer screen 01/06/2022 HPV (without or with Pap) 01/06/2022 COVID-19 Vaccine (1 - 2023- season) 2024 Flu vaccine (Season Ended) 2024 HIV screen Completed 09/13/2022, 04/01, 11/09/2021, Additional history exists Hepatitis C screen Completed 09/13/2022, 0 09/13/2022, 04/19/2022, Additional history exists HPV vaccine Aged Out No longer eligi ble based on patient's age to complete this topic Hepatitis A vaccine Aged Out No longe r eligible based on patient's age to complete this topic Hib vaccine Aged Out No longer eligi ble based on patient's age to complete this topic Meningococcal (ACWY) vaccine Aged Out No longer eligible based on patient's age to complete this topic Meningococcal B vaccine Aged Out No l onger eligible based on patient's age to complete this topic Polio vaccine Aged Out No longer elig ible based on patient's age to complete this topic Procedures Procedure Name Priority Date/Time Associated Diagnosis Comments HIV SCREEN Routine 09/13/2022 7:25 AM EDT HEPATITIS PANEL, ACUTE Routine 09/13/2022 7:25 AM EDT from Last 3 Months or Most Recently Relevant to Health Maintenance Results * (ABNORMAL) Hepatitis Panel, Acute (09/13/2022 7:25 AM EDT) Hepatitis B Surface Ag NONREACTIVE NONREACTIVE 09/13/2022 7:25 AM EDT [facility] C Ab REACTIVE(A) NONREACTIVE 09/14/19 7:25 AM EDT [facility] Comment: The hepatitis C procedure used in [...] Results reported to the appropriate Health Department Hep B Core Ab, IgM NONREACTIVE NONREACTIVE 08/30 7:25 AM EDT [facility] Hep A IgM NONREACTIVE NONREACTIVE 09/13/2022 7:25 AM EDT [email or web address] 09/13/2022 7:25 AM EDT 09/13/2022 8:02 AM EDT Hipolito Mejia APRN - [facility] IMMUNOLOGY ORDERABLES F inal Result [facility] [address] [place] [address] [email or web address] [address] [place] [address], [facility] [phone] * HIV Screen (09/13/2022 7:25 AM EDT) Pathologist [facility] HIV Ag/Ab NONREACTIVE NONREACTIVE 09/13/2022 7:25 AM EDT [facility] Comment: No laboratory evidence of HIV infection. If acute HIV infection is suspected, consider testing for HIV-1 RNA. 09/13/2022 7:25 AM EDT 09/13/2022 8:02 AM EDT Hipolito Mejia GRAVITY FLOW IRRIGATOR - FOREST AIDE IMMUNOLOGY ORDERABLES F inal Result [facility] [address] [place] [address], [facility] [phone] [email or web address] [address] [place], [place] [address] [phone] from Last 3 Months or Most Recently Relevant to Health Maintenance Insurance [facility] [employer] Member Subscriber Plan / Payer (Ef fective 2019-Present) Name:Pauline Nicholson Relation to Subscriber:Self Name:Pauline Nicholson Payer ID:Not on file Group ID:[id number] Type:Not on file Address: [address] [id number] * Guarantor: Pauline Nicholson Account Type Relation to Patient Date of Phone Billing Address Personal/Family Self 1990 [address] [place] [address] [facility] Member Subscriber Plan / Payer (Ef fective 2019-Present) Name:Pauline Nicholson Relation to Subscriber:Self Name:Pauline Nicholson Payer ID:Not on file Group ID:[id number] Type:Not on file Address: [address] [phone] Advance Directives * Full Code (Latest Code Status on File) Date Activated Date Inactivated Comments 03/06/2018 12:17 AM 03/06/2018 4:09 AM
--- OUTSIDE RECORDS SUMMARY | 2024-09-23 13:37 | XMS_ITS | Clinical Summary ---
Author Organization [facility] Address [address] [place], [place] [id number] Care Team Providers Care Underwriting Specialist Name Role Phone Karuna Vasquez MD Primary Care Provider [phone] Social History Tobacco Use Types Packs/Day Years Used Date Smoking Tobacco: Never Assessed Comments Unknown Sex and Gender Information Value Date Recorded Sex Assigned at Not on file Legal Sex Female 7:29 AM EST Gender Identity Not on file Sexual Orientation Not on file Plan of Treatment Not on file Care Teams Underwriting Specialist Relationship Specialty Start Date End Date Karuna Vasquez MD [address] [facility] [address] [id number] PCP - General 08/28/04
--- OUTSIDE RECORDS SUMMARY | 2024-09-23 13:38 | XMS_ITS | Encounter Summary ---
Author Organization [facility] tem Address [id number] [address] [place] [address] Care Team Providers Care Quality Assurance Tester Name Role Phone Bahman Mejia MD Primary Care Provider [phone] Encounter Details Date Type Department Care Team (Late st Contact Info) Description 04/03/2018 Telephone Maternal- Medicine at [facility] [address] [facility] [place] [id number] Zev Hamlin MD [address] [place] [id number] Social History Tobacco Use Types Packs/Day Years Used Date Smoking Tobacco: Every Day Cigarettes 0.5 5 Smokeless Tobacco: Never Alcohol Use Standard Drinks/Week Comments No 0 (1 standard drink = 0.6 oz pur e alcohol) Comments Yes Sex and Gender Information Value Date Recorded Sex Assigned at Not on file Legal Sex Female 12:10 PM EDT Gender Identity Not on file Sexual Orientation Not on file documented as of this encounter Plan of Treatment Not on file documented as of this encounter Visit Diagnoses Not on filedocumented in this encounter Additional Health Concerns Infection Onset Date Last Indicated Resolved Time COVID-19 Rule-Out 07/08/2021 07/08/2021 07/08/2021 3:11 PM EST Respiratory Rule-Out 08/04/2021 08/04/2021 022 11:27 AM EDT COVID-19 Rule-Out 12/20/2021 12/20/2021 12/20/2021 9:41 PM EDT COVID-19 Rule-Out 08/19/2023 08/19/2023 08/19/2023 9:34 PM EDT documented as of this encounter Care Teams Quality Assurance Tester Relationship Specialty Start Date End Date Bahman Mejia MD [address] [place] [address] PCP - General Family Medicine 03/12/24 documented as of this encounter
--- OUTSIDE RECORDS SUMMARY | 2024-09-23 13:38 | XMS_ITS | Encounter Summary ---
Author Organization [facility] Address [address] [place] [address] Phone Care Team Providers Care Diesel Instructor Name Role Phone Unavailable Primary Care Provider Unavailabl e Encounter Details Date Type Department Care Team (Late st Contact Info) Description 06/25/2021 Orders Only [facility] [address] [place] [address] Conversion, Onbase Social History Tobacco Use Types Packs/Day Years Used Date Smoking Tobacco: Never Assessed Comments Unknown Sex and Gender Information Value Date Recorded Sex Assigned at Not on file Legal Sex Female 10:18 AM EST Gender Identity Not on file Sexual Orientation Not on file documented as of this encounter Plan of Treatment Scheduled Orders Name Type Priority Associated Diagnoses Orde r Schedule OUTSIDE LAB SCAN Lab Ordered: 06/25/2021 documented as of this encounter Visit Diagnoses Not on filedocumented in this encounter
--- OUTSIDE RECORDS SUMMARY | 2024-09-23 13:38 | XMS_ITS | Patient Health Record ---
Author Organization The [facility] in [place] Address [address] [place] [address] Care Team Providers Care Forming Press Operator Name Role Phone Minerva Orona Primary Care Provider [phone] [place] Atkins Unavailable [phone] MINERVA ORONA Unavailable [phone] Homary Rufino Unavailable [phone] Allergies No Known Allergies Results Component Value Reference Range Notes UA RANDOM W or MICROSCOPIC Reviewed date:10/24/2023 09:46:34 PM Interpretation: Performing Lab: Notes/Report: [facility] , Color Urine YELLOW YELLOW Clarity Urine CLEAR CLEAR Specific [place] Urine 1.010 1.005-1.025 pH Urine 6.5 5.0-9.0 Protein Urine NEGATIVE NEG/TRACE mg/dL Glucose Urine UA NEGATIVE NEGATIVE mg/dL Bilirubin Urine SMALL NEGATIVE Ketones Urine NEGATIVE NEGATIVE mg/dL Blood Urine NEGATIVE NEGATIVE Nitrite Urine POSITIVE NEGATIVE Urobilinogen Urine >=8.0 0.2-1.0 EU/dL Leukocyte Esterase Urine TRACE NEGATIVE WBC Urine 2-5 NONE SEEN #/HPF RBC Urine 0-2 0-2 #/HPF Bacteria Urine MODERATE NONE SEEN #/HPF Mucus Urine TRACE NONE SEEN Squamous Epithelial Cell Urine RARE NONE/RARE #/LPF Transitional Epi Cells Urine RARE NONE SEEN #/LPF Crystals Seen? None Seen None Seen #/HPF Cast Seen? NONE SEEN NONE SEEN #/LPF Urine Culture Indicated ALREADY ORDERED Performing Lab: see note ML - [facility] LB UA Micro, reflex to culture Reviewed date:06/26/2024 06:36:54 PM Interpretation: Performing Lab: Notes/Report: [facility] , Color Urine YELLOW YELLOW Clarity Urine CLEAR CLEAR Specific [place] Urine 1.025 1.005-1.025 pH Urine 5.5 5.0-9.0 Protein Urine NEGATIVE NEG/TRACE mg/dL Glucose Urine UA NEGATIVE NEGATIVE mg/dL Bilirubin Urine NEGATIVE NEGATIVE Ketones Urine NEGATIVE NEGATIVE mg/dL Blood Urine NEGATIVE NEGATIVE Nitrite Urine NEGATIVE NEGATIVE Urobilinogen Urine 1.0 0.2-1.0 EU/dL Leukocyte Esterase Urine NEGATIVE NEGATIVE WBC Urine NONE SEEN NONE SEEN #/HPF RBC Urine 0-2 0-2 #/HPF Bacteria Urine SMALL NONE SEEN #/HPF Mucus Urine TRACE NONE SEEN Squamous Epithelial Cell Urine MODERATE NONE/RARE #/LPF Crystals Seen? None Seen None Seen #/HPF Cast Seen? NONE SEEN NONE SEEN #/LPF Urine Culture Indicated YES-[facility] [place] [facility] Performing Lab: see note ML - [facility] LB Urine Culture - FR Reviewed date:07/01/2024 12:36:53 PM Interpretation: Performing Lab: Notes/Report: [facility] , Urine Culture - [facility] [place] [facility] See Below For Report Urine Culture - [facility] 40,000 colonies/ml mixed Urine Culture - FR bacterial skin contaminants Urine Culture - [facility] 40,000 colonies/ml mixed Urine Culture - FR 2 Days Urine Culture - [facility] 40,000 colonies/ml mixed Urine Culture - FR Urine Culture - [facility] 40,000 colonies/ml mixed Urine Culture - FR Testing performed a [facility] Urine Culture - FR 40,000 colonies/ml mixed Urine Culture - FR [address] [place] [address] Urine Culture - [facility] 40,000 colonies/ml mixed Performing Lab: see note ML - [facility] LB PROF 14(COMP METB) Reviewed date:07/02/2024 09:16:09 PM Interpretation: Performing Lab: Notes/Report: [facility] , Sodium 144 136-145 mmol/L Potassium 4.0 3.5-5.1 mmol/L Chloride 110 98-107 mmol/L Carbon Dioxide 29.1 21.0-32.0 mmol/L Anion Gap 8.9 Glucose 98 74-106 mg/dL Blood Urea Nitrogen 18.0 7.0-18.0 mg/dL Creatinine 0.79 0.55-1.02 mg/dL Estimated GFR ( [place] >60 >=60 mL/min/1.73m 2 Estimated GFR (Non- [place] >60 >=60 mL/min/1.73m 2 BUN Creatinine Ratio 22.8 Calcium 9.7 8.5-10.1 mg/dL Bilirubin Total 0.4 0.2-1.0 mg/dL Aspartate Amino Transferase 165 15-37 U/L Alanine Aminotransferase 230 14-59 U/L Alkaline Phosphatase 106 46-116 U/L Total Protein 5.7 6.4-8.2 g/dL Albumin Level 3.0 3.4-5.0 g/dL Globulin 2.7 Albumin Globulin Ratio 1.1 Performing Lab: see note ML - [facility] Troponin I High Sensitivity Reviewed date:07/02/2024 09:16:09 PM Interpretation: Performing Lab: Notes/Report: [facility] , Troponin I High Sensitivity 17.6 4.0-51.3 pg/mL CUT-OFF POINTS HAVE BEEN ESTABLISHED BASED ON THE FOURTH UNIVERSAL DEFINITION OF MYOCARDIAL INFARCTION. THE UPPER REFERENCE LIMIT (URL) OF TROPONIN, DEFINED THE 99TH PERCENTILE OF cTnI DISTRIBUTION IN A REFERENCE POPULATION, HAS BEEN CONFIRMED THE DECISION THRESHOLD FOR MO DIAGNOSIS. 99TH PERCENTILE = 51.4 PG/ML NOTE: HIGH-SENSITIVITY TROPONIN ASSAY IS NOT INTENDED TO BE USED IN ISOLATION BUT SHOULD BE INTERPRETED IN CONJUNCTION WITH OTHER DIAGNOSTIC AND CLINICAL INFORMATION. Performing Lab: see note ML - [facility] LB HCG Qualitative* Reviewed date:07/02/2024 09:16:09 PM Interpretation: Performing Lab: Notes/Report: [facility] , HCG Qualitative NEGATIVE NEGATIVE Performing Lab: see note - [facility] LB PROF 14(COMP METB) (Not yet reviewed by provider) Interpretation: Performing Lab: Notes/Report: [facility] , Sodium 143 136-145 mmol/L Potassium 3.7 3.5-5.1 mmol/L Chloride 107 98-107 mmol/L Carbon Dioxide 27.9 21.0-32.0 mmol/L Anion Gap 11.8 Glucose 90 74-106 mg/dL Blood Urea Nitrogen 9.0 7.0-18.0 mg/dL Creatinine 0.82 0.55-1.02 mg/dL Estimated GFR ( [place] >60 >=60 mL/min/1.73m 2 Estimated GFR (Non- [place] >60 >=60 mL/min/1.73m 2 BUN Creatinine Ratio 11.0 Calcium 10.1 8.5-10.1 mg/dL Bilirubin Total 0.4 0.2-1.0 mg/dL Aspartate Amino Transferase 23 15-37 U/L Alanine Aminotransferase 28 14-59 U/L Alkaline Phosphatase 80 46-116 U/L Total Protein 6.6 6.4-8.2 g/dL Albumin Level 3.7 3.4-5.0 g/dL Globulin 2.9 Albumin Globulin Ratio 1.3 Performing Lab: see note - [facility] LB HCV RT-PCR, Quant (Non-Graph ) (Not yet reviewed by provider) Interpretation: Performing Lab: Notes/Report: [facility] , Hepatitis C Quantitation HCV Not Detected . IU/mL HCV log10 TNP . Test Information: Comment . The quantitative range of this assay is 15 IU/mL to 100 million IU/mL. Performed at: [facility] [address] [id number] Aeronautical Engineering Officer: Vernon Church MD, Phone: [phone] Performing Lab: see note - [facility] LB ECG 12 lead Reviewed date:07/03/2024 07:24:26 PM Interpretation: Performing Lab: Notes/Report: Source Facility: [place] [address] Electrocardiograph Report Signed Patient: SANGEETA NICHOLSON MR#: [id number] : 1990 Acct:[id number] Age/Sex: 34 / F ADM Date: 07/01/24 Loc: ER Attending Dr: Ordering Physician: Mariel Gregg Date of Service: 07/01/24 Procedure(s): ECG 12 lead Accession Number(s): [id number] cc: [place] Test Date: 2024-07-01 Pat Name: SANGEETA NICHOLSON Department: Room: - Gender: Female 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 Signed By: 07/03/241035 DD/ 27 TD/TT: Car Dumper Operator: LIPASE Reviewed date:07/02/2024 09:16:09 PM Interpretation: Performing Lab: Notes/Report: [facility] , Lipase 32.0 16.0-77.0 U/L Performing Lab: see note ML - [facility] LB CBC AUTO DIFF Reviewed date:07/02/2024 09:16:09 PM Interpretation: Performing Lab: Notes/Report: [facility] , White Blood Count 3.3 4.0-11.0 10 3/uL Red Blood Count 3.99 4.20-5.40 10 6/uL Hemoglobin 11.8 12.0-16.0 g/dL Hematocrit 36.4 36.0-48.0 % Mean Corpuscular Volume 91.2 81.0-99.0 fL Mean Corpuscular Hemoglobin 29.6 26.7-34.0 pg Mean Corpuscular HGB Conc 32.4 29.9-35.2 g/dL Red Cell Distribution Width 14.6 11.0-15.0 % Platelet Count 142 150-450 10 3/uL Mean Platelet Volume 10.6 9.5-13.5 fL Neutrophils Percent Auto 48.8 43.0-75.0 % Lymphocytes Percent Auto 44.3 20.5-60.0 % Monocytes Percent Auto 6.6 1.7-12.0 % Eosinophils Percent Auto 0.0 0.9-7.0 % Basophils Percent Auto 0.0 0.2-2.0 % Immature Granulocytes Pct Auto 0.3 0.0-0.5 % Neutrophils Absolute Auto 1.6 1.4-6.5 10 3/uL Lymphocytes Absolute Auto 1.5 1.2-3.8 10 3/uL Monocytes Absolute Auto 0.2 0.3-0.8 10 3/uL Eosinophils Absolute Auto 0.0 0.0-0.7 10 3/uL Basophils Absolute Auto 0.0 0.0-0.1 10 3/uL Immature Granulocytes Abs Auto 0.01 0.00-0.03 10 3/uL Performing Lab: see note ML - [facility] US right upper quadrant Reviewed date:06/26/2024 07:08:20 PM Interpretation: Performing Lab: Notes/Report: Source Facility: [facility] [place] [address] [place] [address] Ultrasound Report Signed Patient: SANGEETA NICHOLSON MR#: [id number] : 1990 Acct:[id number] Age/Sex: 34 / F ADM Date: 06/26/24 Loc: ER Attending Dr: Ordering Physician: Mariel Gregg Date of Service: 06/26/24 Procedure(s): US right upper quadrant Accession Number(s): [id number] cc: Michael Mejia M.D.; Mariel Gregg [place] [address] Patient Name: SANGEETA NICHOLSON MRN: [id number] date: 1990 Sex: F Assigned Patient Location: ER Current Patient Location: ER Accession/Order Number: [id number] Exam Date: 06/26/2024 18:46 Report Date: 06/26/2024 18:47 At the request of: MARIEL GREGG MD Procedure: US right upper quadrant EXAMINATION TYPE: US right upper quadrant DATE OF EXAM ORDERED: 06/26/2024 6:38 PM HISTORY: RUQ pain, nausea COMPARISON: NONE TECHNIQUE: Realtime imaging limited to the right upper quadrant was performed. FINDINGS: The gallbladder appears within normal limits without evidence of cholelithiasis. The gallbladder wall measures 3 mm in thickness. Common bile but measures 3 mm in diameter. No intrahepatic or extrahepatic biliary dilatation is seen. The liver is normal in echo reflectivity. Hepatopedal flow is noted in the main portal vein. Partial visualization of the right kidney reveals no gross hydronephrosis. Partial visualization of the pancreas reveals no abnormality. US/US right upper quadrant IMPRESSION: Normal right upper quadrant ultrasound. Impression dictated by: Jerry Lees M.D.06/26/2024 6:47 PM Dictation Location: [place] [address] Electronically authenticated by: [id number] Y Date: 06/26/2024 18:47 Dictated By: Jerry Lees M.D. Signed By: 06/26/241849 DD/ TD/TT: Car Dumper Operator: [place] [address] Ultrasound Report Signed Patient: ASHUTOSH NICHOLSON MR#: [id number] : 1990 Acct:[id number] Age/Sex: 34 / F ADM Date: 06/26/24 Loc: ER Attending Dr: Ordering Physician: Mariel Gregg Date of Service: 06/26/24 Procedure(s): US rig ht upper quadrant Accession Number(s): [id number] cc: Michael Mejia M.D. ; Mariel Gregg The [address] [address] Patient Name: SANGEETA NICHOLSON MRN: [id number] date: 1990 Sex: F Assigned Patient Location: ER Current Patient Loca tion: ER Accession/Order Numb er: [id number] Exam Date: 06/26/2024 18:46 Report Date: 06/26/2024 18:47 At the request of: MARIEL GREGG MD Procedure: US right upper quadrant EXAMINATION TYPE: US right upper quadrant DATE OF EXAM ORDERED : 06/26/2024 6:38 PM HISTORY: RUQ pain, nausea COMPARISON: NONE TECHNIQUE: Realtime imaging limited to the right upper quadrant was performed. FINDINGS: The gallbladder appe ars within normal limits without evidence of cholelithiasis. The gallbladder wall measures 3 mm in thickness. Common bile but measures 3 mm in diameter. No intrahepatic or extrahepatic biliary dilatation is seen. The liver is normal in echo reflectivity. Hepatopedal flow is noted in the main portal vein. Partial visualization of the right kidney reveals no gr oss hydronephrosis. Partial visualization of the pancreas reveals no abnormality. U S/US right upper quadrant IMPRESSION: Normal right upper quadrant ultrasound. Impression dictated by: Jerry Lees M.D.06/26/2024 6:47 PM Dictation Location: [place] [address] Electronically authenticated by: [id number] Y Date: 06/26/2024 18:47 Dictated By: Jerry Lees M.D. Signed By: 06/26/241849 DD/ 46 TD/TT: Car Dumper Operator: HCG Qualitative* Reviewed date:06/26/2024 07:08:20 PM Interpretation: Performing Lab: Notes/Report: [facility] , HCG Qualitative NEGATIVE NEGATIVE Performing Lab: see note ML - [facility] LB PROF 14(COMP METB) Reviewed date:06/27/2024 12:22:15 PM Interpretation: Performing Lab: Notes/Report: [facility] , Sodium 143 136-145 mmol/L Potassium 4.5 3.5-5.1 mmol/L Chloride 110 98-107 mmol/L Carbon Dioxide 30.5 21.0-32.0 mmol/L Anion Gap 7.0 Glucose 96 74-106 mg/dL Blood Urea Nitrogen 16.0 7.0-18.0 mg/dL Creatinine 0.76 0.55-1.02 mg/dL Estimated GFR ( [place] >60 >=60 mL/min/1.73m 2 Estimated GFR (Non- [place] >60 >=60 mL/min/1.73m 2 BUN Creatinine Ratio 21.1 Calcium 9.9 8.5-10.1 mg/dL Bilirubin Total 0.6 0.2-1.0 mg/dL Aspartate Amino Transferase 159 15-37 U/L Alanine Aminotransferase 204 14-59 U/L Alkaline Phosphatase 108 46-116 U/L Total Protein 5.8 6.4-8.2 g/dL Albumin Level 3.2 3.4-5.0 g/dL Globulin 2.6 Albumin Globulin Ratio 1.2 Performing Lab: see note ML - [facility] LB LIPASE Reviewed date:06/26/2024 07:08:20 PM Interpretation: Performing Lab: Notes/Report: [facility] , Lipase 37.0 16.0-77.0 U/L Performing Lab: see note ML - [facility] LB CBC AUTO DIFF Reviewed date:06/26/2024 07:08:20 PM Interpretation: Performing Lab: Notes/Report: [facility] , White Blood Count 3.6 4.0-11.0 10 3/uL Red Blood Count 4.13 4.20-5.40 10 6/uL Hemoglobin 12.2 12.0-16.0 g/dL Hematocrit 37.3 36.0-48.0 % Mean Corpuscular Volume 90.3 81.0-99.0 fL Mean Corpuscular Hemoglobin 29.5 26.7-34.0 pg Mean Corpuscular HGB Conc 32.7 29.9-35.2 g/dL Red Cell Distribution Width 14.1 11.0-15.0 % Platelet Count 122 150-450 10 3/uL Mean Platelet Volume 10.7 9.5-13.5 fL Neutrophils Percent Auto 48.7 43.0-75.0 % Lymphocytes Percent Auto 44.2 20.5-60.0 % Monocytes Percent Auto 5.1 1.7-12.0 % Eosinophils Percent Auto 0.0 0.9-7.0 % Basophils Percent Auto 0.3 0.2-2.0 % Immature Granulocytes Pct Auto 1.7 0.0-0.5 % Neutrophils Absolute Auto 1.7 1.4-6.5 10 3/uL Lymphocytes Absolute Auto 1.6 1.2-3.8 10 3/uL Monocytes Absolute Auto 0.2 0.3-0.8 10 3/uL Eosinophils Absolute Auto 0.0 0.0-0.7 10 3/uL Basophils Absolute Auto 0.0 0.0-0.1 10 3/uL Immature Granulocytes Abs Auto 0.06 0.00-0.03 10 3/uL Performing Lab: see note ML - [facility] LB Type and Screen Reviewed date:10/26/2023 07:41:18 PM Interpretation: Performing Lab: Notes/Report: [place] , Blood Type A Positive Antibody Screen NEGATIVE US right upper quadrant Reviewed date:10/24/2023 09:46:34 PM Interpretation: Performing Lab: Notes/Report: Source Facility: [place] [address] Ultrasound Report Signed Patient: SANGEETA NICHOLSON MR#: [id number] : 1990 Acct:[id number] Age/Sex: 33 / F ADM Date: 10/23/23 Loc: [place] 219-[address]: Michael Mejia M.D. Ordering Physician: Michale Mejia M.D. Date of Service: 10/24/23 Procedure(s): US right upper quadrant Accession Number(s): [id number] cc: Michael Mejia M.D.; Physician,Non-Staff Krishna The [place] [address] Patient Name: SANGEETA NICHOLSON MRN: [id number] date: 1990 Sex: F Assigned Patient Location: MS Current Patient Location: MS Accession/Order Number: [id number] Exam Date: 10/24/2023 09:05 Report Date: 10/24/2023 10:31 At the request of: MICHAEL MEJIA Procedure: US right upper quadrant EXAM: US right upper quadrant HISTORY: generalized abdominal pain COMPARISON: Acute abdominal series dated 10/23/2023 TECHNIQUE: Ultrasound study of the right upper quadrant of the abdomen was performed. FINDINGS: Pancreas appears grossly unremarkable. No obvious hepatic mass or intrahepatic ductal dilatation. Increased echogenicity within the dependent portion of the gallbladder without evidence of associated posterior shadowing, likely representing sludge. No obvious gallstones or gallbladder wall thickening. No obvious pericholecystic fluid. Common bile duct measures 3.4 cm in diameter which is within normal limits. There is unremarkable hepatopedal blood flow in the visualized portal vein. Right kidney measures 10.8 x 5.4 x 3.4 cm in longitudinal, transverse and AP dimensions. No obvious right renal mass or evidence of obstructive uropathy. No obvious right renal calculus. US/US right upper quadrant IMPRESSION: Ultrasound study demonstrates findings compatible with gallbladder sludge as described. No obvious gallstones or gallbladder wall thickening. No obvious acute process identified. Electronically authenticated by: JOSE GRANDE Date: 10/24/2023 10:31 Dictated By: Jose Grande M.D. Signed By: 10/24/23 1034 DD/ 1031 TD/TT: Car Dumper Operator: [place] [address] Ultrasound Report Signed Patient: ASHUTOSH NICHOLSON MR#: [id number] : 1990 Acct:[id number] Age/Sex: 33 / F ADM Date: 10/23/23 Loc: [place] 219-[address]: Delmy Mejia M.D. Ordering Physician: Michael Mejia M.D. Date of Service: 10/24/23 Procedure(s): US rig ht upper quadrant Accession Number(s): [id number] cc: Michael Mejia M.D. ; Physician,Non-Staff Krishna The [place] [id number] Patient Name: SANGEETA NICHOLSON MRN: [id number] date: 1990 Sex: F Assigned Patient Location: MS Current Patient Loca tion: MS Accession/Order Numb er: [id number] Exam Date: 10/24/2023 09:05 Report Date: 10/24/2023 10:31 At the request of: MICHAEL BOO Procedure: US right upper quadrant EXAM: US right upper quadrant HISTORY: generalized abdominal pain COMPARISON: Acute abdominal series dated 10/23/2023 TECHNIQUE: Ultrasoun d study of the right upper quadrant of the abdomen was performed. FINDINGS: Pancreas appears grossly unremarkable. No obvious hepatic m ass or intrahepatic ductal dilatation. Increased echogenici ty within the dependent portion of the gallbladder without evidence of associat ed posterior shadowing, likely representing sludge. No obvious gallstones o r gallbladder wall thickening. No obvious pericholecystic fluid. Common bile duct guillermina sures 3.4 cm in diameter which is within normal limits. There is unremarkabl e hepatopedal blood flow in the visualized portal vein. Right kidney measure s 10.8 x 5.4 x 3.4 cm in longitudinal, transverse and AP dimensions. No obvio us right renal mass or evidence of obstructive uropathy. No obvious right renal calculus. U S/US right upper quadrant IMPRESSION: Ultrasound study demonstrates findings compatible with gallbladder sludge as described. No obviou s gallstones or gallbladder wall thickening. No obvious acute pro cess identified. Electronically authenticated by: JOSE GRANDE Date: 10/24/2023 10:31 Dictated By: Jose Grande M.D. Signed By: 10/24/23 1034 DD/ 1031 TD/TT: Car Dumper Operator: BILIRUBIN CONJUGATED (DIRECT ) Reviewed date:10/24/2023 09:46:34 PM Interpretation: Performing Lab: Notes/Report: [facility] , Bilirubin Direct 1.0 0.0-0.2 mg/dL RESULTS CALLED TO CHAR ROMAN RN ON [employer] @BY Alisha Samaniego at 0835 Performing Lab: see note ML - [facility] LB CULTURE URINE Reviewed date:10/26/2023 07:41:19 PM Interpretation: Performing Lab: Notes/Report: [facility] , Urine Culture See Below For Report O:ESCCOL Isolated Urine Culture [place] Count Organism: 1.1 Antibiotic Interpretation TESSY Status Urine Culture See Below For Report O:ESCCOL Isolated Urine Culture [place] Count Organism: 1.1 Antibiotic Interpretation TESSY Status Urine Culture >100,000 O:ESCCOL Isolated Urine Culture [place] Count Organism: 1.1 Antibiotic Interpretation TESSY Status Urine Culture See Below For Report O:ESCCOL Isolated Urine Culture [place] Count Organism: 1.1 Antibiotic Interpretation TESSY Status Urine Culture Amikacin S <=2 F O:ESCCOL Isolated Urine Culture [place] Count Organism: 1.1 Antibiotic Interpretation TESSY Status Urine Culture Ampicillin S <=2 F O:ESCCOL Isolated Urine Culture [place] Count Organism: 1.1 Antibiotic Interpretation TESSY Status Urine Culture Ampicillin/Sulbactam S <=2 F O:ESCCOL Isolated Urine Culture [place] Count Organism: 1.1 Antibiotic Interpretation TESSY Status Urine Culture Cefazolin S <=4 F O:ESCCOL Isolated Urine Culture [place] Count Organism: 1.1 Antibiotic Interpretation TESSY Status Urine Culture Ceftazidime S <=1 F O:ESCCOL Isolated Urine Culture [place] Count Organism: 1.1 Antibiotic Interpretation TESSY Status Urine Culture Ceftriaxone S <=1 F O:ESCCOL Isolated Urine Culture [place] Count Organism: 1.1 Antibiotic Interpretation TESSY Status Urine Culture Ciprofloxacin S <=0.25 F O:ESCCOL Isolated Urine Culture [place] Count Organism: 1.1 Antibiotic Interpretation TESSY Status Urine Culture Ertapenem S <=0.5 F O:ESCCOL Isolated Urine Culture [place] Count Organism: 1.1 Antibiotic Interpretation TESSY Status Urine Culture Gentamicin S <=1 F O:ESCCOL Isolated Urine Culture [place] Count Organism: 1.1 Antibiotic Interpretation TESSY Status Urine Culture Imipenem S <=0.25 F O:ESCCOL Isolated Urine Culture [place] Count Organism: 1.1 Antibiotic Interpretation TESSY Status Urine Culture Levofloxacin S <=0.12 F O:ESCCOL Isolated Urine Culture [place] Count Organism: 1.1 Antibiotic Interpretation TESSY Status Urine Culture Nitrofurantoin S <=16 F O:ESCCOL Isolated Urine Culture [place] Count Organism: 1.1 Antibiotic Interpretation TESSY Status Urine Culture Tobramycin S <=1 F O:ESCCOL Isolated Urine Culture [place] Count Organism: 1.1 Antibiotic Interpretation TESSY Status Urine Culture Trimethoprim/Sulfame thoxa zole S <=20 F O:ESCCOL Isolated Urine Culture [place] Count Organism: 1.1 Antibiotic Interpretation TESSY Status Urine Culture Piperacillin/Tazobac xiong S <=4 F O:ESCCOL Isolated Urine Culture [place] Count Organism: 1.1 Antibiotic Interpretation TESSY Status Performing Lab: see note ML - [facility] SEE REPORT - Banking Supervisor Id information not found for OBX-specific straddle bug legend Vitamin B12 (Not yet reviewe d by provider) Interpretation: Performing Lab: Notes/Report: [facility] , Vitamin B12 [phone] pg/mL Performed at: - [facility] [id number] Aeronautical Engineering Officer: Jeff Pitt PhD, Phone: [phone] Performing Lab: see note - [facility] LB CBC AUTO DIFF (Not yet revie wed by provider) Interpretation: Performing Lab: Notes/Report: [place] , White Blood Count 3.9 4.0-11.0 10 3/uL Red Blood Count 4.39 4.20-5.40 10 6/uL Hemoglobin 13.0 12.0-16.0 g/dL Hematocrit 39.6 36.0-48.0 % Mean Corpuscular Volume 90.2 81.0-99.0 fL Mean Corpuscular Hemoglobin 29.6 26.7-34.0 pg Mean Corpuscular HGB Conc 32.8 29.9-35.2 g/dL Red Cell Distribution Width 16.3 11.0-15.0 % Platelet Count 159 150-450 10 3/uL Mean Platelet Volume 9.8 9.5-13.5 fL Neutrophils Percent Auto 56.1 43.0-75.0 % Lymphocytes Percent Auto 40.0 20.5-60.0 % Monocytes Percent Auto 3.6 1.7-12.0 % Eosinophils Percent Auto 0.0 0.9-7.0 % Basophils Percent Auto 0.0 0.2-2.0 % Immature Granulocytes Pct Auto 0.3 0.0-0.5 % Neutrophils Absolute Auto 2.2 1.4-6.5 10 3/uL Lymphocytes Absolute Auto 1.6 1.2-3.8 10 3/uL Monocytes Absolute Auto 0.1 0.3-0.8 10 3/uL Eosinophils Absolute Auto 0.0 0.0-0.7 10 3/uL Basophils Absolute Auto 0.0 0.0-0.1 10 3/uL Immature Granulocytes Abs Auto 0.01 0.00-0.03 10 3/uL Performing Lab: see note - [facility] Reason For Referral Diagnosis 1 Hepatitis (K75.9) Referral Organization [facility] Referring Provider First Name Minerva Referring Provider Last Name Siomara Referring Provider Speciality Family Med daniel Referred Provider Ken Painting Referred Provider Specialty Gastroentero logy Referral Priority Routine Medications Medication SIG (Take, Route, Fr equency, Duration) Notes Start Date End Date Status Nystatin 479404 UNIT/ML 4 mL Mouth/Throa t Four times a day for 14 days 07/24/2024 Active Gabapentin 300 MG 1 capsule Orally Onc e a day for 30 days Active traZODone HCl 100 MG 1 tablet at bedtime Orally Once a day Active Social History Tobacco Use: Social History Observation Description Date Details (start date - stop date) Current Smoker NA - NA Tobacco Use/Smoking Question Answer Notes Patient is a current smoker AUDIT-C (Standard) Question Answer Notes Did you have a drink containing alcohol in the p ast year? No Points 0 Interpretation Negative Problems Problem Type SNOMED Code ICD Code Onset Dates Problem Status W/U Status Risk Notes Problem Restless legs (66304957) Restless legs (G25.81) Active confirmed Problem Hyperbilirubinemia (23972325) Hyperbilirubinemia (E80.6) Active confirmed Problem Hepatitis (189386073) Hepatitis (K75.9) Active confirmed Vital Signs Heart Rate 74 /min 07/24/2024 Blood pressure diastolic 62 mm Hg 07/24/2024 Height 63 in 07/24/2024 Blood pressure systolic 108 mm Hg 07/24/2024 Weight 181 lbs 07/24/2024 BMI 32.06 kg/m2 07/24/2024 Encounters Encounter Location Date Provider Diagnosis [facility] [address] [place] [address] 11/08/[address] [facility] [address] [place] [address] 10/31/2023 Minerva Orona Restless legs G25.81 [facility] [address] [place] [address] 11/09/2023 Minerva Orona Restless legs G25.81 [facility] [address] [place] [address] 06/12/2024 Minerva Orona Hepatitis K75.9 and Restless legs G25.81 [facility] [address] [place] [address] 10/31/2023 MINERVA ORONA [facility] [address] [place] [address] 10/31/2023 MINERVA ORONA [facility] [address] [place] [address] 11/08/[address] [facility] [address] [place] [address] 11/09/2023 Minerva Orona Hepatitis K75.9 [facility] [address] [place] [address] 11/09/2023 MINERVA ORONA Restless legs G25.81 [facility] [address] [place] [address] 12/13/[address] [facility] [address] [place] [place] [address] 06/12/2024 Minerva Orona [facility] [address] [facility] [place] [address] 06/19/2024 [place] [facility] [address] [place] [place] [place] [address] 06/19/2024 Minerva Orona [facility] [address] [facility] [place] [address] 09/11/2024 [place] [facility] [address] [place] [place] [place] [address] 06/27/[address] [facility] [address] [facility] [place] [address] 06/28/2024 Minerva Orona RUQ pain R10.[address] [facility] [address] [facility] [place] [address] 06/28/[address] [facility] [address] [facility] [place] [address] 07/03/[address] [facility] [address] [facility] [place] [address] 07/11/[address] [facility] [address] [place] [place] [place] [address] 07/24/2024 Minerva Orona Cellulitis L03.[address] [facility] [address] [place] [place] [address] 07/17/[address] [facility] [address] [place] [place] [address] 07/24/[address] [facility] [address] [place] [place] [address] 08/08/2024 Minerva Orona Restless legs G25.81 Assessments Encounter Date Diagnosis (ICD Code) Assessment Notes Treatment Notes Treatment Clinical Notes Section Notes 10/31/2023 Restless legs (ICD-10 - G25.81) low dose gabapentin has helped in past CSA signed OARRS reviewed 11/09/2023 Restless legs (ICD-10 - G25.81) increase dose 06/12/2024 Hepatitis (ICD-10 - K75.9) states has not heard back from GI after testing will check on for her 07/24/2024 Cellulitis (ICD-10 - L03.90) warm compresses finish Keflex continue monitor, if not resolved after abx finished , fu apt! lipoma, one ER drained 07/24/2024 Thrush (ICD-10 - B37.0) 11/09/2023 Hepatitis (ICD-10 - K75.9) 11/09/2023 Restless legs (ICD-10 - G25.81) 08/08/2024 Restless legs (ICD-10 - G25.81) 06/28/2024 RUQ pain (ICD-10 - R10.11) CT? need records from , imaging results 06/28/2024 Hepatitis (ICD-10 - K75.9) fu GI we will check on apt 06/12/2024 Restless legs (ICD-10 - G25.81) CSA signed OARRS reviewed fu 6m 11/09/2023 Other ok for back to work note 06/28/[address] abdomen? referral diff GI? Plan Of Treatment Pending Test Test Name Order Date CBC AUTO DIFF 09/11/2024 PROF 14(COMP METB) 09/11/2024 HCV RT-PCR, Quant (Non-Graph) 09/11/2024 Vitamin B12 09/11/2024 Next Appt Details Provider Name:Argentina Atkins , 11/13/2024 10:00:00 AM, [address] [place], [address], Provider Name:Minerva leon, 12/10/2024 02:00:00 PM, [address] [facility], [place], [address], Insurance Providers Payer Name Payer Address Payer Phone Subscriber Number Group Number Insured Name Patient Relationship to Insured Coverage Start Date Coverage End Date [employer] [place] [employer] [address] [place] [address] [phone] [id number] Sangeeta Nicholson Self - patient is the insured Medical (General) History Medical History History ICD Code anemia hepatitis asthma Surgical History Surgery Date(Month/Year) x3 Hospitalization History Reason Date(Month/Year) Intractable nausea and vomiting 10/2023
--- OUTSIDE RECORDS SUMMARY | 2024-09-23 13:38 | XMS_ITS | Encounter Summary ---
Author Organization [facility] Address [address] [place] [address] Phone Care Team Providers Care Laundry Superintendent Name Role Phone Unavailable Primary Care Provider Unavailabl e Encounter Details Date Type Department Care Team (Late st Contact Info) Description 11/09/2021 Orders Only [facility] [address] [place] [address] Conversion, Onbase Social History Tobacco Use Types Packs/Day Years Used Date Smoking Tobacco: Never Assessed PHQ-2 Answer Date Recorded Patient Health Questionnaire-2 Score 5 07/09/2021 Comments Unknown Sex and Gender Information Value Date Recorded Sex Assigned at Not on file Legal Sex Female 10:18 AM EST Gender Identity Not on file Sexual Orientation Not on file documented as of this encounter Plan of Treatment Scheduled Orders Name Type Priority Associated Diagnoses Orde r Schedule OUTSIDE LAB SCAN Lab Ordered: 11/09/2021 documented as of this encounter Visit Diagnoses Not on filedocumented in this encounter Additional Health Concerns Assessment Noted Time PHQ-9 Depression Total Score: 18 022 9:01 AM EST documented as of this encounter
--- OUTSIDE RECORDS SUMMARY | 2024-09-23 13:38 | XMS_ITS | Clinical Summary ---
Author Organization [facility] Address [address] [place] [phone] Phone Care Team Providers Care Drug Coordinator Name Role Phone Unavailable Primary Care Provider Unavailabl e Social History Tobacco Use Types Packs/Day Years [...] Sign Reading Time Taken Comments Blood Pressure 102/62 07/09/2021 9:07 AM EST Pulse 59 07/09/2021 9:01 AM EST Temperature - - Respiratory Rate - - Oxygen Saturation - - Inhaled Oxygen Concentration - - Weight 69.4 kg (153 lb) 07/09/2021 9:01 AM EST Height 160 cm (5' 3 ) 07/09/2021 9:01 AM EST Body Mass Index 27.1 07/09/2021 9:01 AM EST Plan of Treatment Health Maintenance Due Date Last Done Comments HIV Screening 1992 Lipid Panel 1992 Yearly Adult Physical 1990 MMR Vaccines (1 of 1 - Stand irineo series) 01/06/1993 Varicella Vaccines (1 of 2 - 13+ 2-dose series) 01/06/2005 Hepatitis C Screening 01/06/2010 Hepatitis B Vaccines (1 of 3 - 19+ 3-dose series) 01/06/2011 Cervical Cancer Screening 01/06/2013 HPV/Cotest 01/06/2013 Pap Smear 01/06/2013 DTaP/Tdap/Td Vaccines (1 - Tdap) 01/06/2014 COVID-19 Vaccine (1 - 2023-2 5 season) 2024 Influenza Vaccine (Season Ended) 2024 Zoster Vaccines (1 of 2) 01/06/2042 HIB Vaccines Aged Out No longer eligi ble based on patient's age to complete this topic HPV Vaccines Aged Out No longer eligi ble based on patient's age to complete this topic Hepatitis A Vaccines Aged Out No long er eligible based on patient's age to complete this topic IPV Vaccines Aged Out No longer eligi ble based on patient's age to complete this topic Meningococcal Vaccine Aged Out No tayler sampson eligible based on patient's age to complete this topic Pneumococcal Vaccine: Pediat rics and At-Risk Adult Patients Aged Out No longer gem gible based on patient's age to complete this topic Rotavirus Vaccines Aged Out No longer eligible based on patient's age to complete this topic
[2024-09-23 13:41] VITALS: BP 109/54; PULSE 66; TEMP 36.7; O2SAT 97; BMI 30.6
[2024-09-23 14:44] LABS: Bilirubin Urine NEGATIVE (NEGATIVE); Blood Urine NEGATIVE (NEGATIVE); Clarity Urine CLEAR (CLEAR); Color Urine YELLOW (YELLOW); Glucose Urine UA NEGATIVE (NEGATIVE); Hematocrit 35.8 % (36.0-48.0); Hemoglobin 11.8 g/dL (12.0-16.0); Ketones Urine NEGATIVE (NEGATIVE); Leukocyte Esterase Urine NEGATIVE (NEGATIVE); Lymphocytes Absolute Auto 1.6 10^3/uL (1.2-3.8); Lymphocytes Percent Auto 44.6 % (20.5-60.0); Mean Corpuscular Hemoglobin 29.7 pg (26.7-34.0); Mean Corpuscular Volume 90.2 fL (81.0-99.0); Mean Platelet Volume 9.8 fL (9.5-13.5); Monocytes Absolute Auto 0.2 10^3/uL (0.3-0.8); Monocytes Percent Auto 4.6 % (1.7-12.0); Neutrophils Absolute Auto 1.8 10^3/uL (1.4-6.5); Neutrophils Percent Auto 50.8 % (43.0-75.0); Nitrite Urine NEGATIVE (NEGATIVE); Platelet Count 161 10^3/uL (150-450); Protein Urine NEGATIVE (NEG/TRACE); Red Blood Count 3.97 10^6/uL (4.20-5.40); White Blood Count 3.5 10^3/uL (4.0-11.0)
--- NOTE | 2024-09-23 14:53 | ED.GENADUL1 ---
HPI HPI - General Adult General Chief complaint: Abdominal Pain Stated complaint: ABDOMINAL PAIN Time Seen by Provider: 09/23/24 14:14 Source: patient Mode of arrival: walk-in History of Present Illness HPI narrative: 34-year-old female presents because she think she has oral thrush. She has had it for a few days. She states they have had me on Magic mouthwash. She also complains of some diffuse abdominal pain. 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 No trauma or fever. No complaints of constipation vomiting or diarrhea. She states she has been clean from drugs for 29 days. Related Data Home Medications ?Medication ?Instructions ?Recorded ?Confirmed trazodone 100 mg tablet 100 mg PO BEDTIME 11/09/22 07/01/24 buspirone 10 mg tablet 10 mg PO TID 04/11/24 07/01/24 prazosin 1 mg capsule 1 mg PO DAILY 04/11/24 07/01/24 sertraline 50 mg tablet 50 mg PO Q24H 04/11/24 07/01/24 gabapentin 300 mg capsule 300 mg PO DAILY 07/01/24 07/01/24 Previous Rx's ?Medication ?Instructions ?Recorded cephalexin 500 mg capsule 500 mg PO BID 7 days #14 caps 06/26/24 hyoscyamine sulfate 0.125 mg 0.125 mg PO Q6H PRN abdominal pain 06/26/24 sublingual tablet (Levsin/SL) #20 tabs famotidine 20 mg tablet (Pepcid) 20 mg PO BID #10 tabs 07/01/24 pantoprazole 40 mg tablet,delayed 40 mg PO DAILY #30 tabs 07/01/24 release (Protonix) nystatin 100,000 unit/mL oral 1 ml PO QID 7 days #28 mL 09/23/24 suspension Allergies Allergy/AdvReac Type Severity Reaction Status Date / Time No Known Drug Allergies Allergy Verified 05/30/24 21:59 Opioid HPI Opioid Management Most Recent Opioid Data: Last Pain Scale 5 07/01/24, 21:04 Last ORT Total Score 10 10/25/23, 17:47 Last ORT Risk Category High Risk 10/25/23, 17:47 Last COWS Score 0 05/30/24, 22:54 Last COWS Severity Mild 10/26/23, 07:31 Ur Phencyclidine Scrn, (NEGATIVE) Negative 05/30/24, 22:10 Review of Systems ROS Narrative A ten point review of systems is negative except as noted above. [facility] Medical History (Updated 09/23/24 @ 15:37 by Viral Reese MD) Urinary tract infection with hematuria ?N39.0 - Urinary tract infection, site not specified (ICD-10) ?R31.9 - Hematuria, unspecified (ICD-10) Oral thrush ?B37.0 - Candidal stomatitis (ICD-10) Single delivery by section ?O82 - Encounter for delivery without indication (ICD-10) Liver failure ?K72.90 - Hepatic failure, unspecified without coma (ICD-10) Hep C w/o coma, chronic ?B18.2 - Chronic viral hepatitis C (ICD-10) Neurocardiogenic syncope ?R55 - Syncope and collapse (ICD-10) Family History (Updated 10/23/23 @ 19:39 by Makayla Campos, JACOB) Mother Family history of COPD (chronic obstructive pulmonary disease) Other Family history of cancer Family history of hypertension Social History (Updated 10/23/23 @ 19:41 by Makayla Campos, JACOB) Within the past year, how often did you have a drink containing alcohol: never Within the past year, how many standard drinks containing alcohol did you have on a typical day: 1 or 2 Within the past year, how often did you have six or more drinks on one occasion: never Total score: 0 Score interpretation: A score less than 3 is consistent with normal alcohol consumption. 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; clean for four months Previous occupational history: [employer] Highest level of school completed/degree received: high school graduate Are you now , , , , never or living with a partner: living with partner In a typical week, how many times do you talk on the telephone with family, friends, or neighbors: 3 or more times per week How often do you get together with friends or relatives: 3 or more times per week How often do you attend moravian or zoroastrian services: never Little interest or pleasure in doing things: not at all Feeling down, depressed, or hopeless: not at all Feel stressed/tense/nervous/anxious/difficulty sleeping: to some extent Do you think of yourself as: straight/heterosexual Gender Identity: female Exam Narrative Exam Narrative: Nurses note and vital signs reviewed and patient is not hypoxic. General: The patient appears well and in no apparent distress. Patient is resting comfortably on cart. Skin: Warm, dry, no pallor noted. There is no rash noted. Head: Normocephalic, atraumatic Eye: Normal conjunctiva, no drainage Ears, Nose, Mouth, and Throat: oral mucosa is slightly dry. The roof of her mouth shows some erythema. There is no open area or bleeding. Cardiovascular: Regular Rate and Rhythm Respiratory: Patient is in no distress, no accessory muscle use, lungs are clear to auscultation, no wheezing, rales or rhonchi Back: non-tender GI: Soft and nondistended. I do not appreciate tenderness on palpation. Musculoskeletal: The patient has no evidence of calf tenderness, no pitting edema, symmetrical pulses noted bilaterally Neurological: A&O, normal speech Psychiatric: Cooperative Constitutional Vital Signs, click to edit/add: Last Vital Signs Temp 98.1 F 09/23/24 13:41 Pulse 66 09/23/24 13:41 Resp 16 09/23/24 13:41 BP 109/54 09/23/24 13:41 Pulse Ox 97 09/23/24 13:41 Course Vital Signs Vital signs: Vital Signs Temperature 98.1 F 09/23/24 13:41 Pulse Rate 66 09/23/24 13:41 Respiratory Rate 16 09/23/24 13:41 Blood Pressure 109/54 09/23/24 13:41 Pulse Oximetry 97 09/23/24 13:41 Temperature 98.1 F 09/23/24 13:41 Pulse Rate 66 09/23/24 13:41 Respiratory Rate 16 09/23/24 13:41 Blood Pressure 109/54 09/23/24 13:41 Pulse Oximetry 97 09/23/24 13:41 Medical Decision Making MDM Narrative Medical decision making narrative: Blood work including LFTs is negative. She will be treated with nystatin. Treatment diagnosis and follow-up were discussed with the patient. Differential Diagnosis Differential Diagnosis: Stomatitis, oral thrush Medical Records Medical records reviewed: Yes I reviewed the patient's medical records Lab Data Lab results reviewed: Yes I reviewed the patient's lab results Labs: Lab Results 09/23/24 Range/Units 14:24 WBC 3.5 L (4.0-11.0) 10^3/uL RBC 3.97 L (4.20-5.40) 10^6/uL Hgb 11.8 L (12.0-16.0) g/dL Hct 35.8 L (36.0-48.0) % MCV 90.2 (81.0-99.0) fL MCH 29.7 (26.7-34.0) pg MCHC 33.0 (29.9-35.2) g/dL RDW 16.0 H (11.0-15.0) % Plt Count 161 (150-450) 10^3/uL MPV 9.8 (9.5-13.5) fL Neut % (Auto) 50.8 (43.0-75.0) % Lymph % (Auto) 44.6 (20.5-60.0) % [place] % (Auto) 4.6 (1.7-12.0) % Eos % (Auto) 0.0 L (0.9-7.0) % Baso % (Auto) 0.0 L (0.2-2.0) % Neut # (Auto) 1.8 (1.4-6.5) 10^3/uL Lymph # (Auto) 1.6 (1.2-3.8) 10^3/uL [place] # (Auto) 0.2 L (0.3-0.8) 10^3/uL Eos # (Auto) 0.0 (0.0-0.7) 10^3/uL Baso # (Auto) 0.0 (0.0-0.1) 10^3/uL Abs Immat Gran (auto) 0.00 (0.00-0.03) 10^3/uL Imm/Tot Granulo (auto) 0.0 (0.0-0.5) % Sodium 142 (136-145) mmol/L Potassium 4.1 (3.5-5.1) mmol/L Chloride 107 (98-107) mmol/L Carbon Dioxide 27.8 (21.0-32.0) mmol/L Anion Gap 11.3 BUN 14.0 (7.0-18.0) mg/dL Creatinine 0.67 (0.55-1.02) mg/dL Est GFR ( Amer) >60 (>=60 mL/min/1.73m^2) Est GFR (Non-Af Amer) >60 (>=60 mL/min/1.73m^2) BUN/Creatinine Ratio 20.9 Glucose 87 (74-106) mg/dL Calcium 9.3 (8.5-10.1) mg/dL Total Bilirubin 0.4 (0.2-1.0) mg/dL Direct Bilirubin 0.1 (0.0-0.2) mg/dL AST 20 (15-37) U/L ALT 29 (14-59) U/L Alkaline Phosphatase 71 (46-116) U/L Total Protein 6.2 L (6.4-8.2) g/dL Albumin 3.5 (3.4-5.0) g/dL Globulin 2.7 g/dL Albumin/Globulin Ratio 1.3 Amylase 43 (25-115) U/L Lipase 18.0 (16.0-77.0) U/L Urine Color Yellow (YELLOW) Urine Clarity Clear (CLEAR) Urine pH 6.0 (5.0-9.0) Ur Specific [place] 1.020 (1.005-1.025) Urine Protein Negative (NEG/TRACE) mg/dL Urine Glucose (UA) Negative (NEGATIVE) mg/dL Urine Ketones Negative (NEGATIVE) mg/dL Urine Occult Blood Negative (NEGATIVE) Urine Nitrite Negative (NEGATIVE) Urine Bilirubin Negative (NEGATIVE) Urine Urobilinogen 1.0 (0.2-1.0) EU/dL Ur Leukocyte Esterase Negative (NEGATIVE) Urine RBC 0-2 (0-2) #/HPF Urine WBC 0-2 A (NONE SEEN) #/HPF Ur Squamous Epith Cells Moderate A (NONE/RARE) #/LPF Urine Crystals None seen (None Seen) #/HPF Urine Bacteria Trace A (NONE SEEN) #/HPF Urine Casts None seen (NONE SEEN) #/LPF Urine Mucus None seen (NONE SEEN) Ur Culture Indicated? No Discharge Plan Discharge Chief Complaint: Abdominal Pain Clinical Impression: Oral thrush Patient Disposition: Home, Self-Care Time of Disposition Decision: 15:37 Condition: Good Mode of Transportation: Private Vehicle Prescriptions / Home Meds: New nystatin 100,000 unit/mL suspension 1 ml PO QID 7 Days Qty: 28 0RF Rx Instructions: administer 1/2 of dose in each side of the mouth No Action trazodone 100 mg tablet 100 mg PO BEDTIME buspirone 10 mg tablet 10 mg PO TID prazosin 1 mg capsule 1 mg PO DAILY sertraline 50 mg tablet 50 mg PO Q24H cephalexin 500 mg capsule 500 mg PO BID 7 Days Qty: 14 0RF hyoscyamine sulfate [Levsin/SL] 0.125 mg tablet, sublingual 0.125 mg PO Q6H PRN (Reason: abdominal pain) Qty: 20 0RF gabapentin 300 mg capsule 300 mg PO DAILY famotidine [Pepcid] 20 mg tablet 20 mg PO BID Qty: 10 0RF pantoprazole [Protonix] 40 mg tablet,delayed release (DR/EC) 40 mg PO DAILY Qty: 30 0RF Print Language: Afghan Instructions: Oral Candidiasis (ED) Referrals: Bahman Mejia MD [Primary Care Provider, Family Practice] - 1 week
[2024-09-23 14:57] LABS: Bacteria Urine TRACE #/HPF (NONE SEEN); Cast Seen? NONE SEEN #/LPF (NONE SEEN); Crystals Seen? None Seen #/HPF (None Seen); Mucus Urine NONE SEEN (NONE SEEN); RBC Urine 0-2 #/HPF (0-2); Squamous Epithelial Cell Urine MODERATE #/LPF (NONE/RARE); WBC Urine 0-2 #/HPF (NONE SEEN)
[2024-09-23 14:58] LABS: Alanine Aminotransferase 29 U/L (14-59); Albumin Globulin Ratio 1.3; Albumin Level 3.5 g/dL (3.4-5.0); Alkaline Phosphatase 71 U/L (46-116); Amylase 43 U/L (25-115); Anion Gap 11.3; Aspartate Amino Transferase 20 U/L (15-37); BUN Creatinine Ratio 20.9; Bilirubin Direct 0.1 mg/dL (0.0-0.2); Bilirubin Total 0.4 mg/dL (0.2-1.0); Calcium 9.3 mg/dL (8.5-10.1); Carbon Dioxide 27.8 mmol/L (21.0-32.0); Chloride 107 mmol/L (98-107); Estimated GFR (African America >60 (>=60 mL/min/1.73m^2); Estimated GFR (Non-African Ame >60 (>=60 mL/min/1.73m^2); Globulin 2.7 g/dL; Glucose 87 mg/dL (74-106); Potassium 4.1 mmol/L (3.5-5.1); Sodium 142 mmol/L (136-145); Total Protein 6.2 g/dL (6.4-8.2); Urine Culture Indicated NO
== END 2024-09-23 15:47 | disposition home or self-care (01) ==
PROVIDERS: Emergency Provider Emergency Medicine; PCP Family Medicine
DX: B37.0 Candidal stomatitis (principal); L53.9 Erythematous condition, unspecified; R10.84 Generalized abdominal pain
CPT/HCPCS: 36415; 80048; 80076; 81001; 82150; 83690; 85025; 99283

== ENCOUNTER 2024-10-02 13:51 | Emergency (ER) | payer OTHER, SELFPAY ==
--- OUTSIDE RECORDS SUMMARY | 2016-07-13 09:34 | XMS_ITS | Continuity of Care Document ---
Author Organization [facility] Address [address] [facility] [address] [place] [address] Phone Care Team Providers Care Payroll Processor Name Role Phone Minerva Bess Unavailable Unavailabl e Allergies, Adverse Reactions, Alerts Substance Reaction Status Criticality No Known Allergies Active No Inform ation Medications Medication Instructions Dosage Effective Dates (start - stop) Status Comments Oragesic mucosal solution apply to affected area 2-3 times daily - Active chlorhexidine gluconate 0.12 % mouthwash place 15 milliliter by mucous membrane route 2 times every day in the mouth (after meals), swish in mouth for 30 seconds then spit out 15.00 milliliter - Active ibuprofen 800 mg tablet take 1 tablet by oral route 3 times every day with food 800 MG - Active Celexa 40 mg tablet take 1 tablet by oral route every day 40 MG - Active Vistaril 25 mg capsule take 1 - 2 capsules by oral route 4 times every day as needed - Active Procedures Procedure Date OFFICE VISIT/NEW LEVEL IV Advance Directives Directive Yes / No Effective Date File Name No Information Encounters Encounter Description Practice Location Reason(s) For Visit Diagnoses Date Provider Providers Copied on Encounter [facility], [address], [place], [place], [id number], [place] tel:[phone] [facility] [[email or web address] No Information 7 Lokesh Palma. [address], [place], [place], [id number] , [place]. tel:[phone] OFFICE VISIT/NEW LEVEL IV [facility], [address], [place], [place], [id number], [place] tel:[phone] [facility] [[email or web address] Est care (chief complaint) Establishing care with new doctor, encounter forAnxietyBipolar 2 disorderPain, dentalLipoma of abdominal wall 6 Lokesh CATY Minerva. [address], [place], [place], [id number] , [place]. tel:[phone] Family History Family Member Type Diagnosis Age At Onset No Information Payers Payer name Insurance type Covered republican ID Rodolfo dunn(s) Kelly [facility] Medicaid CI [id number] [facility] [id number] Social History Type Description Quantity Date Captured Comments Alcohol Use Details Unknown Caffeine Use Details Unknown Tobacco Use Status Smoking Status No Information Sex Female Sexual Orientation Choose not to disclose Gender Identity Choose not to disclose Chief Complaint And Reason For Visit No Information Reason For Referral Reason For Referral No Information Plan Of Treatment Date Type Action Status Referral Ordered: Referrals: Surgery. Evaluate and treat ordered History Of Present Illness Encounter Date Complaint History Of Prese nt Illness Est care Patient is here today to Est care. States she is currently in rehab ( [facility]) for drug abuse states she has been there 2 weeks and is having alot of anxiety issues. she states she has had several anxiety attacks and passes out and ends up going to the ER. States she needs something for her anxiety. She is already on celexa for her moods. states she is bipolor. She is julián complaining of dental pain. states she just finished AMOX and is wanting PCN. Est care (comments) neurocardiac syncope - triggered by anxiety. Also concerned with small nodule to right abdomen. increased in pain and size. Functional Status Date Functional Assessmen t No Information Instructions Date Instruction Additional Infor stephany schedule an appointm ent with general surgery Related to Lipoma of abdominal wall Take Vistaril as nee ded for anxiety. Follow up in 1 month Related to Anxiety Follow up with dental MARVEL Relat ed to Pain, dental Assessments Type Assessment Date No Information Patient Care Teams Name Effective Dates (start - stop) Status Members No Information
--- OUTSIDE RECORDS SUMMARY | 2018-04-19 20:00 | XMS_ITS | Continuity of Care Document ---
Author Organization [facility] Address [address] [place] [address] [place] [address] Phone Care Team Providers Care Paint Coating Machine Operator Name Role Phone Unavailable Unavailable Unavailable Procedures Procedure Date OBSERVATION ADMIT/DISCHARGE SAME DATE De OBSERVATION ADMIT/DISCHARGE SAME DATE Oc Advance Directives Directive Yes / No Effective Date File Name No Information Encounters Encounter Description Practice Location Reason(s) For Visit Diagnoses Date Provider Providers Copied on Encounter OBSERVATION ADMIT/DISCHAR GE SAME DATE [facility] [employer] [facility], [address], [place], [place], [id number], tel:[phone] [facility] No Information No Information OBSERVATION ADMIT/DISCHAR GE SAME DATE [facility] [email or web address] [facility], [address], [place], [place], [id number], [place] tel:[phone] [facility] No Information No Information Family History Family Member Type Diagnosis Age At Onset No Information Payers Payer name Insurance type Covered alliance party ID Authorbecca dunn(s) Kelly [id number] Social History Type Description Quantity Date Captured Comments Sex Female Smoking Status No Information Sexual Orientation Lesbian, sommers or homosexual M Chief Complaint And Reason For Visit No Information Reason For Referral Reason For Referral No Information History Of Present Illness Encounter Date Complaint History Of Prese nt Illness No Information Functional Status Date Functional Assessmen t No Information Instructions Date Instruction Additional Infor mation No Information Assessments Type Assessment Date No Information Patient Care Teams Name Effective Dates (start - stop) Status Members No Information
[2024-10-02] VITALS (11 sets, daily range): BP systolic 89–97; BP diastolic 53–59; PULSE 52–78; TEMP 36.7; O2SAT 93–97; BMI 30.1
--- OUTSIDE RECORDS SUMMARY | 2024-10-02 13:56 | XMS_ITS | Clinical Summary ---
Author Organization [facility] Address [address] [place], [place] [id number] Care Team Providers Care Crude Oil Driver Name Role Phone Karuna Vasquez MD Primary Care Provider [phone] Social History Tobacco Use Types Packs/Day Years Used Date Smoking Tobacco: Never Assessed Comments Unknown Sex and Gender Information Value Date Recorded Sex Assigned at Not on file Legal Sex Female 7:29 AM EST Gender Identity Not on file Sexual Orientation Not on file Plan of Treatment Not on file Care Teams Crude Oil Driver Relationship Specialty Start Date End Date Karuna Vasquez MD [address] [place] [phone] PCP - General 08/28/04
--- OUTSIDE RECORDS SUMMARY | 2024-10-02 13:56 | XMS_ITS | Clinical Summary ---
Demographics Address [address] [place] [address] Home Phone Preferred Language Italian Marital Status Single Restoration Affiliation Unknown Race White Ethnic Group Not or Lati no Author Organization [facility] Address [address] [place] [address] Care Team Providers Care Concrete Pile Driver Operator Name Role Phone Unavailable Primary Care Provider Unavailabl e Allergies No known active allergies Medications nitrofurantoin, macrocrystal-mon ohydrate, (MACROBID) 100 MG capsule Take 100 mg by mouth 2 times daily Active Uhztcvno-Ezi-Nc- FA ( VITAMINS PO) Take by mouth [...] Ag NONREACTIVE NONREACTIVE 09/13/2022 7:25 AM [facility]T [facility] Ab REACTIVE(A) NONREACTIVE 09/14/19 7:25 AM EDT [facility] Comment: The hepatitis C procedure used in [...] IgM NONREACTIVE NONREACTIVE 08/30 7:25 AM EDT [facility] Hep A IgM NONREACTIVE NONREACTIVE 09/13/2022 7:[address] [facility] 09/13/2022 7:25 AM EDT 09/13/2022 8:02 AM EDT Hipolito Mejia APRN - [facility] IMMUNOLOGY ORDERABLES F inal Result [facility] [address] [place] [address] [facility] [address] [place] [address], [facility] [phone] * HIV Screen (09/13/2022 7:25 AM EDT) Pathologist [facility] HIV Ag/Ab NONREACTIVE NONREACTIVE 09/13/2022 7:25 AM EDT [facility] Comment: No laboratory evidence of HIV infection. If acute HIV infection is suspected, consider testing for HIV-1 RNA. 09/13/2022 7:25 AM EDT 09/13/2022 8:02 AM EDT Hipolito Mejia SECURITY SYSTEMS ENGINEER - CLINICAL DOCUMENTATION CLERK IMMUNOLOGY ORDERABLES F inal Result [facility] [address] [place] [address], [facility] [phone] [facility] [employer] [address] [place], [place] [address] [phone] from Last 3 Months or Most Recently Relevant to Health Maintenance Insurance [facility] Member Subscriber Plan / Payer (Ef fective 2019-Present) Name:Pauline Nicholson Relation to Subscriber:Self Name:Pauline Nicholson Payer ID:Not on file Group ID:[id number] Type:Not on file Address: [address] [place] [phone] * Guarantor: Pauline Nicholson Account Type Relation to Patient Date of Phone Billing Address Personal/Family Self 1990 [address] [place] [address] [facility] Member Subscriber Plan / Payer (Ef fective 2019-Present) Name:Pauline Nicholson Relation to Subscriber:Self Name:Pauline Nicholson Payer ID:Not on file Group ID:[id number] Type:Not on file Address: [address] [place] [phone] Advance Directives * Full Code (Latest Code Status on File) Date Activated Date Inactivated Comments 03/06/2018 12:17 AM 03/06/2018 4:09 AM
--- OUTSIDE RECORDS SUMMARY | 2024-10-02 13:57 | XMS_ITS | Clinical Summary ---
Author Organization [facility] tem Address [id number] [address] [place] [address] Care Team Providers Care Deputy Court Name Role Phone Bahman Mejia MD Primary Care Provider [phone] Allergies No known active allergies Medications * [...] EDT - 09/02/2024 8:01 PM EDT Emergency [facility] - Emergency [address] [place] [address] Torrie Forbes MD Syncope, unspecified syncope type (Primary Dx) Discharge Disposition: Home 09/02/2024 Travel 08/03/2024 9:18 AM EDT - 08/03/2024 9:50 AM EDT Emergency [facility] Emergency [address] [place] [address] Tai Figueredo MD Otalgia of both ears (Primary Dx) Discharge Disposition: Home 08/03/2024 Travel 07/18/2024 10:30 AM EDT - 07/18/2024 12:02 PM EDT Emergency [facility] Emergency [address] [place] [address] Paul Cantu MD Abscess of abdominal wall (Primary Dx) Discharge Disposition: Home 07/18/2024 Travel from Last 3 Months Immunizations Immunization [...] Plan 01/06/2010 Pap Smear 01/06/2013 COVID-19 Vaccine (3 2023-2 5 season) 2024 08/19/2021, 07/15/2021 Influenza Vaccine [...] AND DRAINAGE Routine 07/18/2024 10:51 AM EDT from Last 3 Months Results * Troponin I, High Sensitivity 1 Hour (09/02/2024 7:16 PM EDT) TROPONIN I, HIGH SENSITIVITY 5 <16 ng/L 09/02/2024 7:50 PM EDT [facility] Blood Venous blood / Unknown 09/02/2024 7:16 PM EDT 09/02/2024 7:21 PM EDT us Clara Lubin SNACK STEWARD-VALUE ANALYST LAB BLOOD ORDERABLES Final Result [facility] [address] [place] [address], [place] * X-ray wrist left minimum 3 [...] POCT , urine (09/02/2024 6:12 PM EDT) POC Urine Negative Negative 09/02/2024 6:13 PM EDT [facility] Urine 09/02/2024 6:12 PM EDT 09/02/2024 6:13 PM EDT us Torrie Forbes MD POINT OF CARE TEST ORDERAB LES Final Result [facility] [address] [place] [address], * (ABNORMAL) POCT Nursing Urine Macroscopic UA (09/02/2024 6:11 PM EDT) POC Urine Specific [place] >=1.030(A) 1.010, 1.015, 1.020, 1.025 09/02/2024 6:07 PM EDT [facility] POC Urine Leukocyte Esterase Negative Negative 09/02/2024 6:07 PM EDT [facility] POC Urine Nitrite Negative Negative 09/02/2024 6:07 PM EDT [facility] POC Urine pH 5.5 5.0, 6.0, 6.5, 7.0, 7.5, 8.0, 8.5, 5.5 09/02/2024 6:07 PM EDT [facility] POC Urine Protein Negative Negative 09/02/2024 6:07 PM EDT [facility] POC Urine Glucose Negative Negative 09/02/2024 6:07 PM EDT [facility] POC Urine Ketones Negative Negative 09/02/2024 6:07 PM EDT [facility] POC Urine Urobilinogen 1.0 E.U./dL 0.2 E.U./dL, 1.0 E.U./dL 09/02/2024 6:07 PM EDT [facility] POC Urine Bilirubin Negative Negative 09/02/2024 6:07 PM EDT [facility] POC Urine Blood/HGB Negative Negative 09/02/2024 6:07 PM EDT [facility] Urine 09/02/2024 6:11 PM EDT 09/02/2024 6:07 PM EDT us Torrie Forbes MD POINT OF CARE TEST ORDERAB LES Final Result [address] [place] [place] [address], [place] * Troponin I, High Sensitivity 0 Hour (09/02/2024 6:05 PM EDT) TROPONIN I, HIGH SENSITIVITY 5 <16 ng/L 09/02/2024 6:45 PM EDT [facility] Blood Venous blood / Unknown 09/02/2024 6:05 PM EDT 09/02/2024 6:16 PM EDT us Clara Lubin SNACK STEWARD-VALUE ANALYST LAB BLOOD ORDERABLES Final Result Performing Organization Address City/[facility]/ZIP Co de Phone Number [address] [place] [address], [place] * (ABNORMAL) CBC auto differential (09/02/2024 6:05 PM EDT) WBC 4.4 4 - 11 x10E9/L 09/02/2024 6:23 PM EDT [facility] RBC Count 4.45 3.8 - 5.2 X10E12/L 09/02/2024 6:23 PM EDT [facility] Hemoglobin 13.2 11.7 - 15.5 g/dL 09/02/2024 6:23 PM EDT [facility] Hematocrit 39.3 35 - 47 % 09/02/2024 6:23 PM EDT [facility] MCV 88 80 - 100 fL 09/02/2024 6:23 PM EDT [facility] MCH 29.7 27 - 34 pg 09/02/2024 6:23 PM EDT [facility] MCHC 33.7 32 - 36 g/dL 09/02/2024 6:23 PM EDT [facility] RDW 17.4(H) 11.5 - 15 % 09/02/2024 6:23 PM EDT [facility] Platelet Count 140(L) 150 - 450 X10E9/L 09/02/2024 6:23 PM EDT [facility] MPV 8.3 7 - 12 fL 09/02/2024 6:23 PM EDT [facility] Neutrophils Relative 63.0 % 09/02/2024 6:23 PM EDT [facility] Lymphocytes Relative 31.8 % 09/02/2024 6:23 PM EDT [facility] Monocytes Relative 5.2 % 09/02/2024 6:23 PM EDT [facility] Eosinophils Relative 0.0 % 09/02/2024 6:23 PM EDT [facility] Basophils Relative 0.0 % 09/02/2024 6:23 PM EDT [facility] Neutrophils Absolute (A) 2.8 10*3/uL 09/02/2024 6:23 PM EDT [facility] Lymphocytes Absolute 1.4 10*3/uL 09/02/2024 6:23 PM EDT [facility] Monocytes Absolute 0.2 10*3/uL 09/02/2024 6:23 PM EDT [facility] Eosinophils Absolute 0.0 10*3/uL 09/02/2024 6:23 PM EDT [facility] Basophils Absolute 0.0 10*3/uL 09/02/2024 6:23 PM EDT [facility] Differential Type AUTOMATED DIFFERENTIAL 09/02/2024 6:23 PM EDT [facility] Blood Venous blood / Unknown 09/02/2024 6:05 PM EDT 09/02/2024 6:16 PM EDT us Clara Lubin SNACK STEWARD-VALUE ANALYST LAB BLOOD ORDERABLES Final Result Performing Organization Address [facility] Co de Phone Number [address] [place] [address], [place] * D-Dimer (09/02/2024 6:05 PM EDT) [facility] D DIMER <150 1 - 255 ug/mL 09/02/2024 6:30 PM EDT [facility] Comment:Results <255 ng/mL D DU: The presensence of a VTE can safely be excluded with a negative D-Dimer result and Wells score. A negative result doesn't exclude the possibility of DIC. The test should be repeated along with other diagnostic tests if the patient's symptoms persist or worsen. Blood Venous blood / Unknown 09/02/2024 6:05 PM EDT 09/02/2024 6:16 PM EDT us Claar Lubin SNACK STEWARD-VALUE ANALYST LAB BLOOD ORDERABLES Final Result Performing Organization Address [facility] Co de Phone Number [address] [place] [address], [place] * Magnesium (09/02/2024 6:05 PM EDT) MAGNESIUM 2.2 1.8 - 2.6 mg/dL 09/02/2024 6:38 PM EDT [facility] Blood Venous blood / Unknown 09/02/2024 6:05 PM EDT 09/02/2024 6:16 PM EDT us Clara Lubin SNACK STEWARD-VALUE ANALYST LAB BLOOD ORDERABLES Final Result [facility] [address] [place] [address], * (ABNORMAL) Comprehensive metabolic panel (09/02/2024 6:05 PM EDT) SODIUM 137 134 - 146 mmol/L 09/02/2024 6:38 PM EDT [facility] POTASSIUM 3.2(L) 3.5 - 5.0 mmol/L 09/02/2024 6:38 PM EDT [facility] CHLORIDE 105 98 - 109 mmol/L 09/02/2024 6:38 PM EDT [facility] CARBON DIOXIDE 27 22 - 32 mmol/L 09/02/2024 6:38 PM EDT [facility] ANION GAP 5 5 - 15 mmol/L 09/02/2024 6:38 PM EDT [facility] BLOOD UREA NITROGEN 13 5 - 23 mg/dL 09/02/2024 6:38 PM EDT [facility] CREATININE 0.77 0.40 - 1.00 mg/dL 09/02/2024 6:38 PM EDT [facility] Comment:METHOD TRACEABLE TO IDMS STANDARD GLUCOSE 120(H) 65 - 99 mg/dL 09/02/2024 6:38 PM EDT [facility] CALCIUM 9.9 8.5 - 10.5 mg/dL 09/02/2024 6:38 PM EDT [facility] TOTAL PROTEIN 7.0 6.0 - 8.0 g/dL 09/02/2024 6:38 PM EDT [facility] ALBUMIN 4.2 3.2 - 5.3 g/dL 09/02/2024 6:38 PM EDT [facility] ALKALINE PHOSPHATASE 70 39 - 130 U/L 09/02/2024 6:38 PM EDT [facility] AST 25 <=41 U/L 09/02/2024 6:38 PM EDT [facility] ALT 19 <=31 U/L 09/02/2024 6:38 PM EDT [facility] BILIRUBIN,TOTAL 0.6 0.3 - 1.2 mg/dL 09/02/2024 6:38 PM EDT [facility] EGFR Non-Race Dependent >90 >=60 ml/min/1.7 3sq.m 09/02/2024 6:38 PM EDT [facility] Comment: eGFR not reported due to non-numeric value for Creatinine. Reported eGFR is based on the CKD-EPI 2020 equation that does not use a race coefficient. Blood Venous blood / Unknown 09/02/2024 6:05 PM EDT 09/02/2024 6:16 PM EDT us Clara Lubin SNACK STEWARD-VALUE ANALYST LAB BLOOD ORDERABLES Final Result Performing Organization Address City/[facility]/ZIP Co de Phone Number [address] [place] [place] [address], [place] * Extra Urine (09/02/2024 6:04 PM EDT) Extra Tube Auto Resulted 09/02/2024 8:01 PM EDT [facility] Urine 09/02/2024 6:04 PM EDT 09/02/2024 6:28 PM EDT us Clara Lubin SNACK STEWARD-VALUE ANALYST URINE ORDERABLES Final Res ult [address] [place] [address], [place] * ECG 12 lead (09/02/2024 5:50 PM EDT) 09/02/2024 5:50 PM EDT Clara Lubin SNACK STEWARD-VALUE ANALYST ECG ORDERABLES Final Resu lt TRACEMASTERVUE * Incision and Drainage (07/18/2024 10:51 AM EDT) Narrative Paul Cantu MD - 07/18/2024 10:51 AM EDT Paul Cantu MD 07/19/2024 6:54 AM Incision and Drainage Date/Time: 07/18/2024 10:51 AM Performed by: Paul Cantu MD Authorized by: Paul Cantu MD Consent: Consent obtained: Verbal Consent given by: Patient Risks, benefits, and alternatives were discussed: yes Risks discussed: Bleeding, incomplete drainage and pain Alternatives discussed: No treatment Adena protocol: Procedure explained and questions answered to [...] Cantu MD PROCEDURE/MINOR SURGICAL ORDERABLES Final Result from Last 3 Months Insurance [place] [employer] [facility] [place] [employer] Advance Directives * Full Code (Latest Code Status on File) Date Activated Date Inactivated Comments 04/20/2018 12:12 PM 04/23/2018 7:05 PM * Full Code Date Activated Date Inactivated Comments 05/05/2016 10:19 PM 05/11/2016 2:[address] Relationship Specialty Start Date End Date Bahman Mejia MD [address] [place] [address] PCP - General Family Medicine 03/12/24
--- OUTSIDE RECORDS SUMMARY | 2024-10-02 13:57 | XMS_ITS | Clinical Summary ---
Author Organization [facility] Address [address] [place] [phone] Phone Care Team Providers Care Public Service Representative Name Role Phone Unavailable Primary Care Provider [...]
--- OUTSIDE RECORDS SUMMARY | 2024-10-02 13:57 | XMS_ITS | Encounter Summary ---
Author Organization [facility] tem Address [id number] [address] [place] [address] Care Team Providers Care Dehydrating Press Operator Name Role Phone Bahman Mejia MD Primary Care Provider [phone] Encounter Details Date Type Department Care Team (Late st Contact Info) Description 04/03/2018 Telephone Maternal- Medicine at [facility] [address] [facility] [place] [id number] Zev Hamlin MD [address] [place] [id number] Social History Tobacco Use Types Packs/Day Years [...] documented as of this encounter Care Teams Dehydrating Press Operator Relationship Specialty Start Date End Date Bahman Mejia MD [address] [place] [address] PCP - General Family Medicine 03/12/24 documented as of this encounter
--- OUTSIDE RECORDS SUMMARY | 2024-10-02 13:57 | XMS_ITS | Encounter Summary ---
Author Organization [facility] Address [address] [place], [place] [id number] Care Team Providers Care Salesforce Business Analyst Name Role Phone Karuna Vasquez MD Primary Care Provider [phone] Source Comments In the event this information is protected by the Federal Confidentiality of Alcohol and Drug AbusePatient Records regulations: The Federal rules restrict any use of the information to criminally investigate or prosecute any alcohol or drug abuse patient.[facility] Encounter Details Date Type Department Care Team [...] on filedocumented in this encounter Care Teams Salesforce Business Analyst Relationship Specialty Start Date End Date Karuna Vasquez MD [address] [facility] [address] [place] [address] PCP - General 08/28/04 documented as of this encounter
--- OUTSIDE RECORDS SUMMARY | 2024-10-02 13:57 | XMS_ITS | Encounter Summary ---
Author Organization [facility] Address [address] [place] [address] Phone Care Team Providers Care Computer Compositor Name Role Phone Unavailable Primary Care Provider Unavailabl e Encounter Details Date Type Department Care Team (Late st Contact Info) Description 06/25/2021 Orders Only [email or web address] LEGAC[facility] [address] [place] [address] Conversion, Onbase Social History Tobacco Use Types [...]
--- OUTSIDE RECORDS SUMMARY | 2024-10-02 13:58 | XMS_ITS | Encounter Summary ---
Author Organization [facility] Address [address] [place] [address] Phone Care Team Providers Care Mechanical Fitter Name Role Phone Unavailable Primary Care Provider Unavailabl e Encounter Details Date Type Department Care Team (Late st Contact Info) Description 11/09/2021 Orders Only [facility] LE[facility] [address] [place] [address] Conversion, Onbase Social History Tobacco Use Types [...]
--- NOTE | 2024-10-02 14:04 | ECG_ITS ---
[facility] Test Date: 2024-10-02 Pat Name: SANGEETA MYLES Department: Room: - Gender: Female Cadastral Engineer: : [id number] Requested By: [id number] Order Number: [id number] Reading MD: RL BRENNAN M.D. Measurements Intervals [place] Rate: 58 P: 72 [place]: 194 QRS: 58 QRSD: 94 T: 66 QT: 432 QTc: 428 Interpretive Statements [address], PROBABLE NORMAL EARLY REPOL PATTERN 9110 normal ECG Compared to ECG 07/01/2024 20:28:37 No significant changes Electronically Signed On 10-02-2024 18:09:33 EDT by RL BRENNAN M.D.
--- NOTE | 2024-10-02 14:05 | ED_ITS ---
HPI - Dizziness General Chief Complaint: Syncope Stated Complaint: SYNCOPE Time Seen by Provider: 10/02/24 13:57 Source: patient Mode of arrival: walk-in Limitations: no limitations History of Present Illness HPI Narrative: 34 year old female presents to the ED for dizziness, syncopal episode. States she felt dizzy, lightheaded just prior to the episode. She does have a headache at this time States it has happened before; she was previously told she was dehydrated. Denies fever, chills, vision changes, CP, SOB. Denies abd pain, N/V/D, urinary symptoms. Related Data Home Medications ?Medication ?Instructions ?Recorded ?Confirmed trazodone 100 mg tablet 100 mg PO BEDTIME 11/09/22 0 07/01/24 buspirone 10 mg tablet 10 mg PO TID 04/11/24 prazosin 1 mg capsule 1 mg PO DAILY 04/11/2407/01 sertraline 50 mg tablet 50 mg PO Q24H 04/11/2407/01 gabapentin 300 mg capsule 300 mg PO DAILY 07/01/2406/26 Previous Rx's ?Medication ?Instructions ?Recorded cephalexin 500 mg capsule 500 mg PO BID 7 days #14 cap s 06/26/24 hyoscyamine sulfate 0.125 mg 0.125 mg PO Q6H PRN abdom inal pain 06/26/24 sublingual tablet (Levsin/SL) #20 tabs famotidine 20 mg tablet (Pepcid) 20 mg PO BID #10 tabs 07/01/24 pantoprazole 40 mg tablet,delayed 40 mg PO DAILY #30 t abs 07/01/24 release (Protonix) nystatin 100,000 unit/mL oral 1 ml PO QID 7 days #28 m L 09/23/24 suspension Allergies Allergy/AdvReac Type Severity Reaction Status Date / Time sulfamethoxazole (From Allergy Mild Hives Verified 10/02/24 13:59 Bactrim) trimethoprim (From Bactrim) Allergy Mild Hives Verified 10/02/24 13:59 Review of Systems ROS Constitutional Denies: fever or chills Ears, nose, mouth, and throat Denies: throat pain or neck pain Cardiovascular Denies: chest pain Respiratory Denies: shortness of breath Gastrointestinal Denies: abdominal pain, nausea, vomiting or diarrhea Genitourinary Denies: painful urination, urinary frequency, urinary urgency or blood in urine Musculoskeletal Denies: back pain or neck pain Integumentary/Breast Denies: rash Neurological Reports: headache and dizziness; Denies: numbness in extremities, weakness in extremities, lack of coordination or slurred speech [facility] Medical History (Updated 10/02/24 @ 15:55 by Mariam Funk) Urinary tract infection with hematuria ?N39.0 - Urinary tract infection, site not specified (ICD-10) ?R31.9 - Hematuria, unspecified (ICD-10) Oral thrush ?B37.0 - Candidal stomatitis (ICD-10) Single delivery by section ?O82 - Encounter for delivery without indication (ICD-10) Liver failure ?K72.90 - Hepatic failure, unspecified without coma (ICD-10) Hep C w/o coma, chronic ?B18.2 - Chronic viral hepatitis C (ICD-10) Neurocardiogenic syncope ?R55 - Syncope and collapse (ICD-10) Family History (Updated 10/23/23 @ 19:39 by Makayla Campos RN) Mother Family history of COPD (chronic obstructive pulmonary disease) Other Family history of cancer Family history of hypertension Social History (Updated 10/23/23 @ 19:41 by Makayla Campos RN) Within the past year, how often did you have a drink containing alcohol: never Within the past year, how many standard drinks containing alcohol did you have on a typical day: 1 or 2 Within the past year, how often did you have six or more drinks on one occasion: never Total score: 0 Score interpretation: A score less than 3 is consistent with normal alcohol consumption. 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; clean for four months Previous occupational history: [employer] Highest level of school completed/degree received: high school graduate Are you now , , , , never or living with a partner: living with partner In a typical week, how many times do you talk on the telephone with family, friends, or neighbors: 3 or more times per week How often do you get together with friends or relatives: 3 or more times per week How often do you attend latter day or episcopalian services: never Little interest or pleasure in doing things: not at all Feeling down, depressed, or hopeless: not at all Feel stressed/tense/nervous/anxious/difficulty sleeping: to some extent Do you think of yourself as: straight/heterosexual Gender Identity: female Exam Constitutional Vital Signs, click to edit/add: Last Vital Signs Temp 98.1 F 10/02/24 13:54 Pulse 58 L 10/02/24 15:54 Resp 18 10/02/24 15:54 BP 97/55 10/02/24 15:54 Pulse Ox 97 10/02/24 15:54 O2 Del Method Room Air 10/02/24 13:54 Common normals: no apparent distress and oriented x3 General appearance: cooperative HENMT Common normals: head/scalp atraumatic, external ears normal and moist oral mucous membranes Eye Common normals: PERRL, EOMs intact bilaterally, conjunctivae normal and no scleral icterus Neck & C-Spine Common normals: supple Cervical spine: no cervical spine tenderness, no paracervical muscle tenderness and no paracervical muscle spasm Chest Chest: symmetrical chest wall rise Respiratory Common normals: normal respiratory effort and clear to auscultation bilaterally Effort & inspection: able to speak in complete sentences and symmetric chest movement Cardio Common normals: regular rate and regular rhythm GI Common normals: soft to palpation and non-tender Neuro Common normals: oriented x3, CN's II-XII intact bilaterally, moves all extremities and no focal motor deficits Sensorium/orientation: awake and alert Speech: speech normal Gait (neuro): normal gait Course Vital Signs Vital signs: Vital Signs Temperature 98.1 F 10/02/24 13:54 Pulse Rate 61 10/02/24 13:54 Respiratory Rate 16 10/02/24 13:54 Blood Pressure 96/59 10/02/24 13:54 Pulse Oximetry 97 10/02/24 13:54 Oxygen Delivery Method Room Air 10/02/24 13:54 Temperature 98.1 F 10/02/24 13:54 Pulse Rate 58 L 10/02/24 15:54 Respiratory Rate 18 10/02/24 15:54 Blood Pressure 97/55 10/02/24 15:54 Pulse Oximetry 97 10/02/24 15:54 Oxygen Delivery Method Room Air 10/02/24 13:54 MDM - Dizziness MDM Narrative Medical decision making narrative: The patient requested her IV access be removed shortly after it was placed. Laboratory studies were unremarkable. Findings were discussed. She reported she was feeling much better. The patient reports her BP is normally 90s/50s. She was encouraged to follow up with her pcp for a recheck, further evaluation and treatment. Medical Records Attestation: I reviewed the patient's medical records. Lab Data Attestation: I reviewed the patient's lab results. Labs: Lab Results 10/02/24 10/02/24 Range/Units 14:07 14:10 WBC 3.8 L (4.0-11.0) 10^3/uL RBC 4.05 L (4.20-5.40) 10^6/uL Hgb 12.0 (12.0-16.0) g/dL Hct 36.8 (36.0-48.0) % MCV 90.9 (81.0-99.0) fL MCH 29.6 (26.7-34.0) pg MCHC 32.6 (29.9-35.2) g/dL RDW 15.6 H (11.0-15.0) % Plt Count 191 (150-450) 10^3/uL MPV 9.8 (9.5-13.5) fL Neut % (Auto) 54.7 (43.0-75.0) % Lymph % (Auto) 40.8 (20.5-60.0) % Randall % (Auto) 4.5 (1.7-12.0) % Eos % (Auto) 0.0 L (0.9-7.0) % Baso % (Auto) 0.0 L (0.2-2.0) % Neut # (Auto) 2.1 (1.4-6.5) 10^3/uL Lymph # (Auto) 1.6 (1.2-3.8) 10^3/uL Randall # (Auto) 0.2 L (0.3-0.8) 10^3/uL Eos # (Auto) 0.0 (0.0-0.7) 10^3/uL Baso # (Auto) 0.0 (0.0-0.1) 10^3/uL Abs Immat Gran (auto) 0.00 (0.00-0.03) 10^3/uL Imm/Tot Granulo (auto) 0.0 (0.0-0.5) % Sodium 142 (136-145) mmol/L Potassium 3.7 (3.5-5.1) mmol/L Chloride 104 (98-107) mmol/L Carbon Dioxide 30.7 (21.0-32.0) mmol/L Anion Gap 11.0 BUN 15.0 (7.0-18.0) mg/dL Creatinine 0.66 (0.55-1.02) mg/dL Est GFR ( Amer) >60 (>=60 mL/min/1.73m^2) Est GFR (Non-Af Amer) >60 (>=60 mL/min/1.73m^2) BUN/Creatinine Ratio 22.7 Glucose 84 (74-106) mg/dL Calcium 9.7 (8.5-10.1) mg/dL Total Bilirubin 0.3 (0.2-1.0) mg/dL AST 22 (15-37) U/L ALT 30 (14-59) U/L Alkaline Phosphatase 73 (46-116) U/L Total Protein 6.5 (6.4-8.2) g/dL Albumin 3.7 (3.4-5.0) g/dL Globulin 2.8 g/dL Albumin/Globulin Ratio 1.3 Urine Color Lt. yellow (YELLOW) Urine Clarity Clear (CLEAR) Urine pH 7.0 (5.0-9.0) Ur Specific [place] 1.010 (1.005-1.025) Urine Protein Negative (NEG/TRACE) mg/dL Urine Glucose (UA) Negative (NEGATIVE) mg/dL Urine Ketones Negative (NEGATIVE) mg/dL Urine Occult Blood Large A (NEGATIVE) Urine Nitrite Negative (NEGATIVE) Urine Bilirubin Negative (NEGATIVE) Urine Urobilinogen 0.2 (0.2-1.0) EU/dL Ur Leukocyte Esterase Trace A (NEGATIVE) Urine RBC 0-2 (0-2) #/HPF Urine WBC 2-5 A (NONE SEEN) #/HPF Ur Squamous Epith Cells Few A (NONE/RARE) #/LPF Urine Crystals None seen (None Seen) #/HPF Urine Bacteria None seen (NONE SEEN) #/HPF Urine Casts None seen (NONE SEEN) #/LPF Urine Mucus Trace A (NONE SEEN) Urine HCG, Qual Negative (NEGATIVE) ECG Data Attestation: ?I have reviewed the pertinent ECG results. (EKG was reviewed by the attending physician. It showed sinus bradycardia at a rate of 58. No STEMI.) Interpretation: Measurements Intervals [place] Rate: 58 P: 72 MT: 194 QRS: 58 QRSD: 94 T: 66 QT: 432 QTc: 428 Interpretive Statements 1100 Sinus rhythm 9110 normal ECG No previous ECG available for comparison Discharge Plan Discharge Chief Complaint: Syncope Clinical Impression: Syncope Patient Disposition: Home, Self-Care Time of Disposition Decision: 15:55 Condition: Good Mode of Transportation: Private Vehicle Prescriptions / Home Meds: No Action trazodone 100 mg tablet 100 mg PO BEDTIME buspirone 10 mg tablet 10 mg PO TID prazosin 1 mg capsule 1 mg PO DAILY sertraline 50 mg tablet 50 mg PO Q24H cephalexin 500 mg capsule 500 mg PO BID 7 Days Qty: 14 0RF hyoscyamine sulfate [Levsin/SL] 0.125 mg tablet, sublingual 0.125 mg PO Q6H PRN (Reason: abdominal pain) Qty: 20 0RF gabapentin 300 mg capsule 300 mg PO DAILY famotidine [Pepcid] 20 mg tablet 20 mg PO BID Qty: 10 0RF pantoprazole [Protonix] 40 mg tablet,delayed release (DR/EC) 40 mg PO DAILY Qty: 30 0RF nystatin 100,000 unit/mL suspension 1 ml PO QID 7 Days Qty: 28 0RF Rx Instructions: administer 1/2 of dose in each side of the mouth Print Language: Yakut Instructions: Syncope (ED) Additional Instructions: Return to the ER for worsening symptoms. Referrals: Bahman Mejia MD [Primary Care Provider, Family Practice] - 1 week Discharge Date/Time: 10/02/24 16:04
[2024-10-02 14:26] LABS: Bilirubin Urine NEGATIVE (NEGATIVE); Blood Urine LARGE (NEGATIVE); Clarity Urine CLEAR (CLEAR); Color Urine LT. YELLOW (YELLOW); Glucose Urine UA NEGATIVE (NEGATIVE); Ketones Urine NEGATIVE (NEGATIVE); Leukocyte Esterase Urine TRACE (NEGATIVE); Nitrite Urine NEGATIVE (NEGATIVE); Protein Urine NEGATIVE (NEG/TRACE); Urobilinogen Urine 0.2 EU/dL (0.2-1.0)
[2024-10-02 14:27] LABS: Urine Microscopic Indicated YES
[2024-10-02 14:27] LABS: Hematocrit 36.8 % (36.0-48.0); Lymphocytes Absolute Auto 1.6 10^3/uL (1.2-3.8); Lymphocytes Percent Auto 40.8 % (20.5-60.0); Mean Corpuscular HGB Conc 32.6 g/dL (29.9-35.2); Mean Corpuscular Hemoglobin 29.6 pg (26.7-34.0); Mean Corpuscular Volume 90.9 fL (81.0-99.0); Mean Platelet Volume 9.8 fL (9.5-13.5); Monocytes Absolute Auto 0.2 10^3/uL (0.3-0.8); Monocytes Percent Auto 4.5 % (1.7-12.0); Neutrophils Absolute Auto 2.1 10^3/uL (1.4-6.5); Neutrophils Percent Auto 54.7 % (43.0-75.0); Platelet Count 191 10^3/uL (150-450); Red Blood Count 4.05 10^6/uL (4.20-5.40); Red Cell Distribution Width 15.6 % (11.0-15.0); White Blood Count 3.8 10^3/uL (4.0-11.0)
[2024-10-02 14:28] LABS: HCG Qualitative Urine* NEGATIVE (NEGATIVE); Internal Control Within Normal Limits
[2024-10-02 14:43] LABS: Bacteria Urine NONE SEEN #/HPF (NONE SEEN); Cast Seen? NONE SEEN #/LPF (NONE SEEN); Crystals Seen? None Seen #/HPF (None Seen); Mucus Urine TRACE (NONE SEEN); RBC Urine 0-2 #/HPF (0-2); Squamous Epithelial Cell Urine FEW #/LPF (NONE/RARE)
[2024-10-02 14:43] LABS: Alanine Aminotransferase 30 U/L (14-59); Albumin Globulin Ratio 1.3; Albumin Level 3.7 g/dL (3.4-5.0); Alkaline Phosphatase 73 U/L (46-116); Aspartate Amino Transferase 22 U/L (15-37); BUN Creatinine Ratio 22.7; Bilirubin Total 0.3 mg/dL (0.2-1.0); Calcium 9.7 mg/dL (8.5-10.1); Carbon Dioxide 30.7 mmol/L (21.0-32.0); Chloride 104 mmol/L (98-107); Estimated GFR (African America >60 (>=60 mL/min/1.73m^2); Estimated GFR (Non-African Ame >60 (>=60 mL/min/1.73m^2); Globulin 2.8 g/dL; Glucose 84 mg/dL (74-106); Potassium 3.7 mmol/L (3.5-5.1); Sodium 142 mmol/L (136-145); Total Protein 6.5 g/dL (6.4-8.2)
== END 2024-10-02 16:04 | disposition home or self-care (01) ==
PROVIDERS: Nurse Practitioner Family; Emergency Provider Emergency Medicine; PCP Family Medicine
DX: R55 Syncope and collapse (principal); F17.200 Nicotine dependence, unspecified, uncomplicated; F14.91 Cocaine use, unspecified, in remission
CPT/HCPCS: 36415; 80053; 81001; 84703; 85025; 93005; 99284